=== PATIENT | female | born 1960 | race Caucasian/White ===

== ENCOUNTER → 2020-03-26 09:24 | Outpatient (BNVA) | payer OTHER, SELFPAY | PROVIDERS: PCP Internal Medicine; Visit Provider Internal Medicine | DX: Z86.718 Personal history of other venous thrombosis and embolism (principal); Z51.81 Encounter for therapeutic drug level monitoring; Z79.01 Long term (current) use of anticoagulants | CPT/HCPCS: 85610; 99211 ==

== ENCOUNTER → 2020-04-23 08:33 | Outpatient (BNVA) | payer OTHER, SELFPAY | PROVIDERS: PCP Internal Medicine; Visit Provider Internal Medicine | DX: Z86.718 Personal history of other venous thrombosis and embolism (principal); Z51.81 Encounter for therapeutic drug level monitoring; Z79.01 Long term (current) use of anticoagulants | CPT/HCPCS: 85610; 99211 ==

== ENCOUNTER → 2020-05-21 08:56 | Outpatient (BNVA) | payer OTHER, MEDICARE, SELFPAY | PROVIDERS: PCP Internal Medicine; Visit Provider Internal Medicine | DX: Z86.718 Personal history of other venous thrombosis and embolism (principal); Z79.01 Long term (current) use of anticoagulants; Z51.81 Encounter for therapeutic drug level monitoring | CPT/HCPCS: 85610; 99211 ==

== ENCOUNTER → 2020-06-11 08:08 | Outpatient (BNVA) | payer OTHER, MEDICARE, SELFPAY | PROVIDERS: PCP Internal Medicine; Visit Provider Internal Medicine | DX: Z86.718 Personal history of other venous thrombosis and embolism (principal); Z51.81 Encounter for therapeutic drug level monitoring; Z79.01 Long term (current) use of anticoagulants | CPT/HCPCS: 85610; 99211 ==

== ENCOUNTER → 2020-07-04 08:20 | Outpatient (BNVA) | payer OTHER, MEDICARE, SELFPAY | PROVIDERS: PCP Internal Medicine; Visit Provider Internal Medicine | DX: Z86.718 Personal history of other venous thrombosis and embolism (principal); Z51.81 Encounter for therapeutic drug level monitoring; Z79.01 Long term (current) use of anticoagulants | CPT/HCPCS: 85610; 99211 ==

== ENCOUNTER → 2020-07-18 08:42 | Outpatient (BNVA) | payer OTHER, MEDICARE, SELFPAY | PROVIDERS: PCP Internal Medicine; Visit Provider Internal Medicine | DX: Z86.718 Personal history of other venous thrombosis and embolism (principal); Z51.81 Encounter for therapeutic drug level monitoring; Z79.01 Long term (current) use of anticoagulants | CPT/HCPCS: 85610; 99211 ==

== ENCOUNTER → 2020-07-23 08:20 | Outpatient (BNVA) | payer OTHER, MEDICARE, SELFPAY | PROVIDERS: PCP Internal Medicine; Visit Provider Internal Medicine | DX: Z86.718 Personal history of other venous thrombosis and embolism (principal); Z51.81 Encounter for therapeutic drug level monitoring; Z79.01 Long term (current) use of anticoagulants | CPT/HCPCS: 85610; 99211 ==

== ENCOUNTER → 2020-08-21 08:46 | Outpatient (BNVA) | payer OTHER, SELFPAY | PROVIDERS: PCP Internal Medicine; Visit Provider Internal Medicine | DX: Z86.718 Personal history of other venous thrombosis and embolism (principal); Z51.81 Encounter for therapeutic drug level monitoring; Z79.01 Long term (current) use of anticoagulants | CPT/HCPCS: 85610; 99211 ==

== ENCOUNTER → 2020-09-18 08:51 | Outpatient (BNVA) | payer OTHER, SELFPAY | PROVIDERS: PCP Internal Medicine; Visit Provider Internal Medicine | DX: Z86.718 Personal history of other venous thrombosis and embolism (principal); Z51.81 Encounter for therapeutic drug level monitoring; Z79.01 Long term (current) use of anticoagulants | CPT/HCPCS: 85610; 99211 ==

== ENCOUNTER → 2020-10-22 08:36 | Outpatient (BNVA) | payer OTHER, SELFPAY | PROVIDERS: PCP Internal Medicine; Visit Provider Internal Medicine | DX: Z86.718 Personal history of other venous thrombosis and embolism (principal); Z51.81 Encounter for therapeutic drug level monitoring; Z79.01 Long term (current) use of anticoagulants | CPT/HCPCS: 85610; 99211 ==

== ENCOUNTER → 2020-12-05 08:37 | Outpatient (BNVA) | payer OTHER, SELFPAY | PROVIDERS: PCP Internal Medicine; Visit Provider Internal Medicine | DX: Z86.718 Personal history of other venous thrombosis and embolism (principal); Z51.81 Encounter for therapeutic drug level monitoring; Z79.01 Long term (current) use of anticoagulants | CPT/HCPCS: 85610; 99211 ==

== ENCOUNTER → 2020-12-26 08:46 | Outpatient (BNVA) | payer OTHER, SELFPAY | PROVIDERS: PCP Internal Medicine; Visit Provider Internal Medicine | DX: Z86.718 Personal history of other venous thrombosis and embolism (principal); Z79.01 Long term (current) use of anticoagulants; Z51.81 Encounter for therapeutic drug level monitoring | CPT/HCPCS: 85610; 99211 ==

== ENCOUNTER → 2021-01-09 08:40 | Outpatient (BNVA) | payer OTHER, SELFPAY | PROVIDERS: PCP Internal Medicine; Visit Provider Internal Medicine | DX: Z86.718 Personal history of other venous thrombosis and embolism (principal); Z51.81 Encounter for therapeutic drug level monitoring; Z79.01 Long term (current) use of anticoagulants | CPT/HCPCS: 85610; 99211 ==

== ENCOUNTER → 2021-01-23 08:52 | Outpatient (BNVA) | payer OTHER, SELFPAY | PROVIDERS: PCP Internal Medicine; Visit Provider Internal Medicine | DX: Z86.718 Personal history of other venous thrombosis and embolism (principal); Z51.81 Encounter for therapeutic drug level monitoring; Z79.01 Long term (current) use of anticoagulants | CPT/HCPCS: 85610; 99211 ==

== ENCOUNTER → 2021-02-11 09:28 | Outpatient (BNVA) | payer OTHER, SELFPAY | PROVIDERS: PCP Internal Medicine; Visit Provider Internal Medicine | DX: Z86.718 Personal history of other venous thrombosis and embolism (principal); Z51.81 Encounter for therapeutic drug level monitoring; Z79.01 Long term (current) use of anticoagulants | CPT/HCPCS: 85610; 99211 ==

== ENCOUNTER → 2021-02-26 08:43 | Outpatient (BNVA) | payer OTHER, SELFPAY | PROVIDERS: PCP Internal Medicine; Visit Provider Internal Medicine | DX: Z86.718 Personal history of other venous thrombosis and embolism (principal); Z51.81 Encounter for therapeutic drug level monitoring; Z79.01 Long term (current) use of anticoagulants | CPT/HCPCS: 85610; 99211 ==

== ENCOUNTER → 2021-04-03 09:52 | Outpatient (BNVA) | payer OTHER, SELFPAY | PROVIDERS: PCP Internal Medicine; Visit Provider Internal Medicine | DX: D68.61 Antiphospholipid syndrome (principal); Z86.718 Personal history of other venous thrombosis and embolism; Z51.81 Encounter for therapeutic drug level monitoring; Z79.01 Long term (current) use of anticoagulants | CPT/HCPCS: 85610; 99211 ==

== ENCOUNTER → 2021-04-17 09:30 | Outpatient (BNVA) | payer OTHER, SELFPAY | PROVIDERS: PCP Internal Medicine; Visit Provider Internal Medicine | DX: D68.61 Antiphospholipid syndrome (principal); Z51.81 Encounter for therapeutic drug level monitoring; Z79.01 Long term (current) use of anticoagulants | CPT/HCPCS: 85610; 99211 ==

== ENCOUNTER → 2021-05-01 09:15 | Outpatient (BNVA) | payer OTHER, SELFPAY | PROVIDERS: PCP Internal Medicine; Visit Provider Internal Medicine | DX: D68.61 Antiphospholipid syndrome (principal); Z51.81 Encounter for therapeutic drug level monitoring; Z79.01 Long term (current) use of anticoagulants | CPT/HCPCS: 85610; 99211 ==

== ENCOUNTER → 2021-05-15 09:10 | Outpatient (BNVA) | payer OTHER, SELFPAY | PROVIDERS: PCP Internal Medicine; Visit Provider Internal Medicine | DX: Z95.2 Presence of prosthetic heart valve (principal); Z51.81 Encounter for therapeutic drug level monitoring; Z79.01 Long term (current) use of anticoagulants | CPT/HCPCS: 85610; 99211 ==

== ENCOUNTER → 2021-06-12 08:46 | Outpatient (BNVA) | payer OTHER, SELFPAY | PROVIDERS: PCP Internal Medicine; Visit Provider Internal Medicine | DX: D68.61 Antiphospholipid syndrome (principal); Z51.81 Encounter for therapeutic drug level monitoring; Z79.01 Long term (current) use of anticoagulants | CPT/HCPCS: 85610; 99211 ==

== ENCOUNTER → 2021-06-26 10:12 | Outpatient (BNVA) | payer OTHER, SELFPAY | PROVIDERS: PCP Internal Medicine; Visit Provider Internal Medicine | DX: D68.61 Antiphospholipid syndrome (principal); Z86.718 Personal history of other venous thrombosis and embolism; Z51.81 Encounter for therapeutic drug level monitoring; Z79.01 Long term (current) use of anticoagulants | CPT/HCPCS: 85610; 99211 ==

== ENCOUNTER → 2021-07-21 08:16 | Outpatient (BNVA) | payer OTHER, SELFPAY | PROVIDERS: PCP Internal Medicine; Visit Provider Internal Medicine | DX: D68.61 Antiphospholipid syndrome (principal); Z86.718 Personal history of other venous thrombosis and embolism; Z51.81 Encounter for therapeutic drug level monitoring; Z79.01 Long term (current) use of anticoagulants | CPT/HCPCS: 85610; 99211 ==

== ENCOUNTER → 2021-08-12 08:31 | Outpatient (BNVA) | payer OTHER, SELFPAY | PROVIDERS: PCP Internal Medicine; Visit Provider Internal Medicine | DX: D68.61 Antiphospholipid syndrome (principal); Z51.81 Encounter for therapeutic drug level monitoring; Z79.01 Long term (current) use of anticoagulants | CPT/HCPCS: 85610; 99211 ==

== ENCOUNTER → 2021-09-03 08:14 | Outpatient (BNVA) | payer OTHER, SELFPAY | PROVIDERS: PCP Internal Medicine; Visit Provider Internal Medicine | DX: Z86.718 Personal history of other venous thrombosis and embolism (principal); Z79.01 Long term (current) use of anticoagulants; Z51.81 Encounter for therapeutic drug level monitoring | CPT/HCPCS: 85610; 99211 ==

== ENCOUNTER → 2021-09-24 08:29 | Outpatient (BNVA) | payer OTHER, SELFPAY | PROVIDERS: PCP Internal Medicine; Visit Provider Internal Medicine | DX: Z86.718 Personal history of other venous thrombosis and embolism (principal); Z79.01 Long term (current) use of anticoagulants; Z51.81 Encounter for therapeutic drug level monitoring | CPT/HCPCS: 85610; 99211 ==

== ENCOUNTER → 2021-10-21 08:06 | Outpatient (BNVA) | payer OTHER, SELFPAY | PROVIDERS: PCP Internal Medicine; Visit Provider Internal Medicine | DX: D68.61 Antiphospholipid syndrome (principal); Z79.01 Long term (current) use of anticoagulants; Z51.81 Encounter for therapeutic drug level monitoring | CPT/HCPCS: 85610; 99211 ==

== ENCOUNTER → 2021-10-28 08:00 | Outpatient (BNVA) | payer OTHER, SELFPAY | PROVIDERS: PCP Internal Medicine; Visit Provider Internal Medicine | DX: D68.61 Antiphospholipid syndrome (principal); Z79.01 Long term (current) use of anticoagulants; Z51.81 Encounter for therapeutic drug level monitoring | CPT/HCPCS: 85610; 99211 ==

== ENCOUNTER → 2021-11-11 08:17 | Outpatient (BNVA) | payer OTHER, SELFPAY | PROVIDERS: PCP Internal Medicine; Visit Provider Internal Medicine | DX: D68.61 Antiphospholipid syndrome (principal); Z79.01 Long term (current) use of anticoagulants; Z51.81 Encounter for therapeutic drug level monitoring | CPT/HCPCS: 85610; 99211 ==

== ENCOUNTER → 2021-12-08 08:44 | Outpatient (BNVA) | payer OTHER, SELFPAY | PROVIDERS: PCP Internal Medicine; Visit Provider Internal Medicine | DX: Z86.718 Personal history of other venous thrombosis and embolism (principal); Z51.81 Encounter for therapeutic drug level monitoring; Z79.01 Long term (current) use of anticoagulants | CPT/HCPCS: 85610; 99211 ==

== ENCOUNTER → 2021-12-31 09:52 | Outpatient (BNVA) | payer OTHER, SELFPAY | PROVIDERS: PCP Internal Medicine; Visit Provider Internal Medicine | DX: Z86.718 Personal history of other venous thrombosis and embolism (principal); Z79.01 Long term (current) use of anticoagulants; Z51.81 Encounter for therapeutic drug level monitoring | CPT/HCPCS: 85610; 99211 ==

== ENCOUNTER → 2022-01-22 09:15 | Outpatient (BNVA) | payer OTHER, SELFPAY | PROVIDERS: PCP Internal Medicine; Visit Provider Internal Medicine | DX: Z86.718 Personal history of other venous thrombosis and embolism (principal); Z79.01 Long term (current) use of anticoagulants; Z51.81 Encounter for therapeutic drug level monitoring | CPT/HCPCS: 85610; 99211 ==

== ENCOUNTER → 2022-02-18 08:18 | Outpatient (BNVA) | payer OTHER, SELFPAY | PROVIDERS: PCP Family Medicine; Visit Provider Internal Medicine | DX: Z86.718 Personal history of other venous thrombosis and embolism (principal); Z79.01 Long term (current) use of anticoagulants; Z51.81 Encounter for therapeutic drug level monitoring | CPT/HCPCS: 85610; 99211 ==

== ENCOUNTER → 2022-03-19 08:20 | Outpatient (BNVA) | payer OTHER, SELFPAY | PROVIDERS: PCP Internal Medicine; Visit Provider Internal Medicine | DX: Z86.718 Personal history of other venous thrombosis and embolism (principal); Z79.01 Long term (current) use of anticoagulants; Z51.81 Encounter for therapeutic drug level monitoring | CPT/HCPCS: 85610; 99212 ==

== ENCOUNTER → 2022-03-23 08:22 | Outpatient (BNVA) | payer OTHER, SELFPAY | PROVIDERS: PCP Internal Medicine; Visit Provider Internal Medicine | DX: Z86.718 Personal history of other venous thrombosis and embolism (principal); Z79.01 Long term (current) use of anticoagulants; Z51.81 Encounter for therapeutic drug level monitoring | CPT/HCPCS: 85610; 99211 ==

== ENCOUNTER → 2022-03-30 08:34 | Outpatient (BNVA) | payer OTHER, SELFPAY | PROVIDERS: PCP Internal Medicine; Visit Provider Internal Medicine | DX: Z86.718 Personal history of other venous thrombosis and embolism (principal); Z79.01 Long term (current) use of anticoagulants; Z51.81 Encounter for therapeutic drug level monitoring | CPT/HCPCS: 85610; 99211 ==

== ENCOUNTER → 2022-06-01 08:59 | Outpatient (BNVA) | payer OTHER, SELFPAY | PROVIDERS: PCP Internal Medicine; Visit Provider Internal Medicine | DX: Z86.718 Personal history of other venous thrombosis and embolism (principal); Z79.01 Long term (current) use of anticoagulants; Z51.81 Encounter for therapeutic drug level monitoring | CPT/HCPCS: 85610; 99212 ==

== ENCOUNTER → 2022-07-01 09:04 | Outpatient (BNVA) | payer OTHER, SELFPAY | PROVIDERS: PCP Internal Medicine; Visit Provider Internal Medicine | DX: I82.621 Acute embolism and thrombosis of deep veins of right upper extremity (principal); Z79.01 Long term (current) use of anticoagulants; Z51.81 Encounter for therapeutic drug level monitoring | CPT/HCPCS: 85610; 99211 ==

== ENCOUNTER → 2022-07-17 08:35 | Outpatient (BNVA) | payer OTHER, SELFPAY | PROVIDERS: PCP Internal Medicine; Visit Provider Internal Medicine | DX: Z86.718 Personal history of other venous thrombosis and embolism (principal); Z79.01 Long term (current) use of anticoagulants; Z51.81 Encounter for therapeutic drug level monitoring | CPT/HCPCS: 85610; 99212 ==

== ENCOUNTER → 2022-07-31 08:07 | Outpatient (BNVA) | payer OTHER, SELFPAY | PROVIDERS: PCP Internal Medicine; Visit Provider Internal Medicine | DX: Z86.718 Personal history of other venous thrombosis and embolism (principal); Z79.01 Long term (current) use of anticoagulants; Z51.81 Encounter for therapeutic drug level monitoring | CPT/HCPCS: 85610; 99211 ==

== ENCOUNTER → 2022-08-04 08:53 | Outpatient (BNVA) | payer OTHER, SELFPAY | PROVIDERS: PCP Internal Medicine; Visit Provider Internal Medicine | DX: Z86.718 Personal history of other venous thrombosis and embolism (principal); Z79.01 Long term (current) use of anticoagulants; Z51.81 Encounter for therapeutic drug level monitoring | CPT/HCPCS: 85610; 99212 ==

== ENCOUNTER → 2022-08-13 09:01 | Outpatient (BNVA) | payer OTHER, SELFPAY | PROVIDERS: PCP Internal Medicine; Visit Provider Internal Medicine | DX: Z86.718 Personal history of other venous thrombosis and embolism (principal); Z79.01 Long term (current) use of anticoagulants; Z51.81 Encounter for therapeutic drug level monitoring | CPT/HCPCS: 85610; 99211 ==

== ENCOUNTER → 2022-08-18 09:20 | Outpatient (BNVA) | payer OTHER, SELFPAY | PROVIDERS: PCP Internal Medicine; Visit Provider Internal Medicine | DX: Z86.718 Personal history of other venous thrombosis and embolism (principal); Z79.01 Long term (current) use of anticoagulants; Z51.81 Encounter for therapeutic drug level monitoring | CPT/HCPCS: 85610; 99211 ==

== ENCOUNTER → 2022-08-24 14:09 | Outpatient (BNVA) | payer OTHER, SELFPAY | PROVIDERS: PCP Internal Medicine; Visit Provider Internal Medicine ==

== ENCOUNTER → 2022-08-26 08:34 | Outpatient (BNVA) | payer OTHER, SELFPAY | PROVIDERS: PCP Internal Medicine; Visit Provider Internal Medicine | DX: Z86.718 Personal history of other venous thrombosis and embolism (principal); Z51.81 Encounter for therapeutic drug level monitoring; Z79.01 Long term (current) use of anticoagulants | CPT/HCPCS: 85610; 99212 ==

== ENCOUNTER → 2022-09-04 10:01 | Outpatient (BNVA) | payer OTHER, SELFPAY | PROVIDERS: PCP Internal Medicine; Visit Provider Internal Medicine | DX: Z86.718 Personal history of other venous thrombosis and embolism (principal); Z79.01 Long term (current) use of anticoagulants; Z51.81 Encounter for therapeutic drug level monitoring | CPT/HCPCS: 85610; 99211 ==

== ENCOUNTER → 2022-09-14 08:16 | Outpatient (BNVA) | payer OTHER, SELFPAY | PROVIDERS: PCP Internal Medicine; Visit Provider Internal Medicine | DX: Z86.718 Personal history of other venous thrombosis and embolism (principal); Z79.01 Long term (current) use of anticoagulants; Z51.81 Encounter for therapeutic drug level monitoring | CPT/HCPCS: 85610; 99211 ==

== ENCOUNTER → 2022-09-18 08:43 | Outpatient (BNVA) | payer OTHER, SELFPAY | PROVIDERS: PCP Internal Medicine; Visit Provider Internal Medicine | DX: Z86.718 Personal history of other venous thrombosis and embolism (principal); Z79.01 Long term (current) use of anticoagulants; Z51.81 Encounter for therapeutic drug level monitoring | CPT/HCPCS: 85610; 99211 ==

== ENCOUNTER → 2022-09-25 08:49 | Outpatient (BNVA) | payer OTHER, SELFPAY | PROVIDERS: PCP Internal Medicine; Visit Provider Internal Medicine | DX: Z86.718 Personal history of other venous thrombosis and embolism (principal); Z79.01 Long term (current) use of anticoagulants; Z51.81 Encounter for therapeutic drug level monitoring | CPT/HCPCS: 85610; 99211 ==

== ENCOUNTER → 2022-10-09 08:29 | Outpatient (BNVA) | payer OTHER, SELFPAY | PROVIDERS: PCP Internal Medicine; Visit Provider Internal Medicine | DX: Z86.718 Personal history of other venous thrombosis and embolism (principal); Z79.01 Long term (current) use of anticoagulants; Z51.81 Encounter for therapeutic drug level monitoring | CPT/HCPCS: 85610; 99211 ==

== ENCOUNTER → 2022-10-23 08:13 | Outpatient (BNVA) | payer OTHER, SELFPAY | PROVIDERS: PCP Internal Medicine; Visit Provider Internal Medicine | DX: Z86.718 Personal history of other venous thrombosis and embolism (principal); Z79.01 Long term (current) use of anticoagulants; Z51.81 Encounter for therapeutic drug level monitoring | CPT/HCPCS: 85610; 99211 ==

== ENCOUNTER → 2022-11-06 08:18 | Outpatient (BNVA) | payer OTHER, SELFPAY | PROVIDERS: PCP Internal Medicine; Visit Provider Internal Medicine | DX: Z86.718 Personal history of other venous thrombosis and embolism (principal); Z79.01 Long term (current) use of anticoagulants; Z51.81 Encounter for therapeutic drug level monitoring | CPT/HCPCS: 85610; 99211 ==

== ENCOUNTER 2022-12-07 09:13 | Outpatient (AMB) | payer OTHER, SELFPAY ==
[2022-12-07 09:26] LABS: Prothrombin Time Whole Bld POC 18.2 sec (11.1-13.5); ~PT, ~INR - Anti Coag Clinic 1.5 (0.9-1.1)
--- NOTE | 2022-12-07 09:27 | MHC.OFFVISCO ---
Intake Intake Visit Reasons: Anticoagulation Allergies codeine [Codeine] Allergy (Severe, Verified 12/07/22 09:20) DIFFICULTY BREATHING Penicillins Allergy (Severe, Verified 12/07/22 09:20) RASH penicillin V Allergy (Intermediate, Verified 12/07/22 09:20) RASH tramadol [Ultram] Allergy (Unknown, Verified 12/07/22 09:20) hallucinations Shellfish Allergy (Severe, Uncoded 12/07/22 09:20) THROAT SWELLING Contrast Allergy PreMed Pack Allergy (Unknown, Uncoded 12/07/22 09:20) TREAT WITH BENADRYL ferrlecit Adverse Reaction (Intermediate, Uncoded 12/07/22 09:20) Rash Medication List - Last Reconciled 12/07/22 by Barbara Lr RN atorvastatin 40 mg PO BEDTIME blood sugar diagnostic As directed clonidine HCl 0.1 mg PO BID clopidogrel 75 mg orally 2 DAYS / WEEK / PER MD; docusate sodium 100 mg PO BID PRN duloxetine 120 mg PO QAM fluticasone propion-salmeterol 100-50 mcg/dose ea inhalation hydrocortisone 2.5% appl topical insulin glargine (Lantus Solostar U-100 Insulin) 10 units subcut QPM ipratropium-albuterol 0.5 mg-3 mg(2.5 mg base)/3 mL mL inhalation ipratropium-albuterol 20-100 mcg/actuation 1 puff PO QID lancets As directed lancets As directed linagliptin (Tradjenta) 5 mg PO DAILY qdtnqc-enoagpzy-kboxomy 24,000-76,000 -120,000 unit 1 cap PO TID lorazepam 1 mg PO BID meclizine mg PO montelukast 10 mg PO BEDTIME nifedipine ER 30 mg PO DAILY ondansetron 4 mg PO Q8H PRN polyethylene glycol 3350 grams PO [procrit pt states she receives it weekly ] quetiapine 200 mg PO BEDTIME rabeprazole 20 mg PO DAILY ropinirole 0.25 mg PO BEDTIME sodium chloride 0.65% (Deep Sea Nasal) sprays intranasal Q2H PRN triamcinolone acetonide 0.1% appl topical warfarin 2.5 mg See Protocol PO DAILY Nursing Note INR 1.5-? out of therapeutic range, pt admits to missed doses, enc to set alarm on phone for a reminder Medications and supplements reviewed Patient status: pt with multiple c.o- states having seizures and falling- educated on hitting head and to notify md, rectal bleeding post plavix x 2 days-last episode last week, pt states md has instructed her to reduce plavix to once per week if rectal bleeding Medications or supplements: pt states not taking iron, plavix is once a week per md w/bleeding Diet: appetite decreased Denies any signs and symptoms of bleeding or clotting or unusual bruising Bleeding, bruising, clotting discussed Nutritional guidance given: no greens for 2 days, eat a red today Dose: 3.75mg today and tomm then 2.5mg daily F/U INR Date : 1 week?? Patient verbalizing understanding of instructions given. 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 spoke to Talia at 0940 . made aware of probable missed doses. made aware of c.o rectal bleeding post plavix once per week and pt c.o seizures Coding Level of Care Code Est Patient Level 1 Diagnoses Current use of anticoagulant therapy Z79.01 Assessment & Plan Assessment & Plan (1) Current use of anticoagulant therapy: Code(s): Z79.01 - salvage determiner (current) use of anticoagulants Category: Medical
== END 2022-12-07 09:46 | disposition home or self-care (01) ==
LOC: HO.ACS 09:13
PROVIDERS: PCP Internal Medicine; Visit Provider Internal Medicine
DX: Z79.01 Long term (current) use of anticoagulants (principal)

== ENCOUNTER → 2022-12-07 09:13 | Outpatient (BNVA) | payer OTHER, SELFPAY | PROVIDERS: PCP Internal Medicine; Visit Provider Internal Medicine | DX: Z86.718 Personal history of other venous thrombosis and embolism (principal); Z51.81 Encounter for therapeutic drug level monitoring; Z79.01 Long term (current) use of anticoagulants | CPT/HCPCS: 85610; 99211 ==

== ENCOUNTER → 2022-12-14 07:44 | Outpatient (BNVA) | payer OTHER, SELFPAY | PROVIDERS: PCP Internal Medicine; Visit Provider Internal Medicine ==

== ENCOUNTER 2022-12-17 08:49 | Outpatient (AMB) | payer OTHER, SELFPAY ==
--- NOTE | 2022-12-17 08:57 | MHC.OFFVISCO ---
Intake Intake Visit Reasons: Anticoagulation Allergies codeine [Codeine] Allergy (Severe, Verified 12/17/22 08:53) DIFFICULTY BREATHING Penicillins Allergy (Severe, Verified 12/17/22 08:53) RASH penicillin V Allergy (Intermediate, Verified 12/17/22 08:53) RASH tramadol [Ultram] Allergy (Unknown, Verified 12/17/22 08:53) hallucinations Shellfish Allergy (Severe, Uncoded 12/17/22 08:53) THROAT SWELLING Contrast Allergy PreMed Pack Allergy (Unknown, Uncoded 12/17/22 08:53) TREAT WITH BENADRYL ferrlecit Adverse Reaction (Intermediate, Uncoded 12/17/22 08:53) Rash Medication List - Last Reconciled 12/17/22 by Barbara Lr RN atorvastatin 40 mg PO BEDTIME blood sugar diagnostic As directed clonidine HCl 0.1 mg PO BID clopidogrel 75 mg orally 2 DAYS / WEEK / PER MD; docusate sodium 100 mg PO BID PRN duloxetine 120 mg PO QAM fluticasone propion-salmeterol 100-50 mcg/dose ea inhalation hydrocortisone 2.5% appl topical insulin glargine (Lantus Solostar U-100 Insulin) 10 units subcut QPM ipratropium-albuterol 0.5 mg-3 mg(2.5 mg base)/3 mL mL inhalation ipratropium-albuterol 20-100 mcg/actuation 1 puff PO QID lancets As directed lancets As directed linagliptin (Tradjenta) 5 mg PO DAILY mnkjdo-bkbopczb-zltvqbh 24,000-76,000 -120,000 unit 1 cap PO TID lorazepam 1 mg PO BID meclizine mg PO montelukast 10 mg PO BEDTIME nifedipine ER 30 mg PO DAILY ondansetron 4 mg PO Q8H PRN polyethylene glycol 3350 grams PO [procrit pt states she receives it weekly ] quetiapine 200 mg PO BEDTIME rabeprazole 20 mg PO DAILY ropinirole 0.25 mg PO BEDTIME sodium chloride 0.65% (Deep Sea Nasal) sprays intranasal Q2H PRN triamcinolone acetonide 0.1% appl topical warfarin 2.5 mg See Protocol PO DAILY Nursing Note INR 1.9-? out of therapeutic range Medications and supplements reviewed Patient status: pt cont to c.o daily seizures- pcp notified after last acs visit- pt states neurology appt tomm pt states had iron infusion last wednesday- states had a reaction. amb with walker Medications or supplements: no changes in medication Diet: appetite is less Denies any signs and symptoms of bleeding or clotting or unusual bruising Bleeding, bruising, clotting discussed Nutritional guidance given: no greens for 2 days, eat a red today Dose: 3.75mg today then 2.5mg x 7 F/U INR Date : 1 week Patient verbalizing understanding of instructions given. Coding Level of Care Code Est Patient Level 1 Diagnoses Current use of anticoagulant therapy Z79.01 Assessment & Plan Assessment & Plan (1) Current use of anticoagulant therapy: Code(s): Z79.01 - jail (current) use of anticoagulants Category: Medical
[2022-12-17 08:58] LABS: ~PT, ~INR - Anti Coag Clinic 1.9 (0.9-1.1)
== END 2022-12-17 09:06 | disposition home or self-care (01) ==
PROVIDERS: PCP Internal Medicine; Visit Provider Internal Medicine
DX: Z79.01 Long term (current) use of anticoagulants (principal)

== ENCOUNTER → 2022-12-17 08:49 | Outpatient (BNVA) | payer OTHER, SELFPAY | PROVIDERS: PCP Internal Medicine; Visit Provider Internal Medicine | DX: Z86.718 Personal history of other venous thrombosis and embolism (principal); Z79.01 Long term (current) use of anticoagulants; Z51.81 Encounter for therapeutic drug level monitoring | CPT/HCPCS: 85610; 99211 ==

== ENCOUNTER 2022-12-24 08:24 | Outpatient (AMB) | payer OTHER, SELFPAY ==
[2022-12-24 08:31] LABS: Prothrombin Time Whole Bld POC 17.8 sec (11.1-13.5); ~PT, ~INR - Anti Coag Clinic 1.5 (0.9-1.1)
--- NOTE | 2022-12-24 08:43 | MHC.OFFVISCO ---
Intake Intake Visit Reasons: Anticoagulation Allergies codeine [Codeine] Allergy (Severe, Verified 12/24/22 08:25) DIFFICULTY BREATHING Penicillins Allergy (Severe, Verified 12/24/22 08:25) RASH penicillin V Allergy (Intermediate, Verified 12/24/22 08:25) RASH tramadol [Ultram] Allergy (Unknown, Verified 12/24/22 08:25) hallucinations Shellfish Allergy (Severe, Uncoded 12/24/22 08:25) THROAT SWELLING Contrast Allergy PreMed Pack Allergy (Unknown, Uncoded 12/24/22 08:25) TREAT WITH BENADRYL ferrlecit Adverse Reaction (Intermediate, Uncoded 12/24/22 08:25) Rash Medication List - Last Reconciled 12/24/22 by Tangela Sam RN atorvastatin 40 mg PO BEDTIME blood sugar diagnostic As directed clonidine HCl 0.1 mg PO BID clopidogrel 75 mg orally 2 DAYS / WEEK / PER MD; dapagliflozin propanediol (Farxiga) 10 mg PO DAILY docusate sodium 100 mg PO BID PRN duloxetine 120 mg PO QAM fluticasone propion-salmeterol 100-50 mcg/dose ea inhalation hydrocortisone 2.5% appl topical insulin glargine (Lantus Solostar U-100 Insulin) 10 units subcut QPM ipratropium-albuterol 0.5 mg-3 mg(2.5 mg base)/3 mL mL inhalation ipratropium-albuterol 20-100 mcg/actuation 1 puff PO QID lancets As directed lancets As directed linagliptin (Tradjenta) 5 mg PO DAILY jlxijk-xvoimbhw-efpiaob 24,000-76,000 -120,000 unit 1 cap PO TID loratadine 10 mg PO DAILY PRN lorazepam 1 mg PO BID meclizine mg PO montelukast 10 mg PO BEDTIME nifedipine ER 30 mg PO DAILY ondansetron 4 mg PO Q8H PRN polyethylene glycol 3350 grams PO [procrit pt states she receives it weekly ] quetiapine 200 mg PO BEDTIME rabeprazole 20 mg PO DAILY ropinirole 0.25 mg PO BEDTIME sodium chloride 0.65% (Deep Sea Nasal) sprays intranasal Q2H PRN triamcinolone acetonide 0.1% appl topical warfarin 2.5 mg See Protocol PO DAILY Nursing Note INR 1.5 out of therapeutic range Medications and supplements reviewed Patient status: STATES SHE KEEP HAVING SEIZURERS AND PCP WONT HELP HER - ENC TO HER TO RESEARCH AND FIND NEW NEUROLOGIST , NO RECTAL BLEEDING, Medications or supplements: NO CHANGES Diet: FAIR Denies any signs and symptoms of bleeding or clotting or unusual bruising Bleeding, bruising, clotting discussed Nutritional guidance given: AVOID GREENS Dose: 2.5MG NOW THEN AGAIN THIS EVENING(DIVIDED DOSES DUE TO HX OF RECTAL BLEEDING) =5MG TODAY THEN 3.75MG X 2 DAYS/ 2.5MG X 5 DAY F/U INR Date : 1 WEEK?? Patient verbalizing understanding of instructions given. CALL TO PCP WITH INR AND PLAN OF CARE TO CONVEY TO PCP LEFT MSG 1038 T/C TO NURSE MANFRED, NO ANSWER LEFT MSG AGAIN WITH STATUS AND PLAN OF CARE AND REQUEST FOR RETURN CALL Coding Level of Care Code Est Patient Level 1 Diagnoses Current use of anticoagulant therapy Z79.01 Assessment & Plan Assessment & Plan (1) Current use of anticoagulant therapy: Code(s): Z79.01 - care home (current) use of anticoagulants Category: Medical
== END 2022-12-24 10:39 | disposition home or self-care (01) ==
LOC: HO.ACS 08:24
PROVIDERS: PCP Internal Medicine; Visit Provider Internal Medicine
DX: Z79.01 Long term (current) use of anticoagulants (principal)

== ENCOUNTER → 2022-12-24 08:24 | Outpatient (BNVA) | payer OTHER, SELFPAY | PROVIDERS: PCP Internal Medicine; Visit Provider Internal Medicine | DX: Z86.718 Personal history of other venous thrombosis and embolism (principal); Z79.01 Long term (current) use of anticoagulants; Z51.81 Encounter for therapeutic drug level monitoring | CPT/HCPCS: 85610; 99211 ==

== ENCOUNTER 2023-01-12 08:10 | Outpatient (AMB) | payer OTHER, SELFPAY ==
[2023-01-12 09:03] LABS: Prothrombin Time Whole Bld POC 18.4 sec (11.1-13.5); ~PT, ~INR - Anti Coag Clinic 1.5 (0.9-1.1)
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
== END 2023-01-12 09:23 | disposition home or self-care (01) ==
LOC: HO.ACS 08:10
PROVIDERS: PCP Internal Medicine; Visit Provider Internal Medicine
DX: Z79.01 Long term (current) use of anticoagulants (principal)

== ENCOUNTER → 2023-01-12 08:10 | Outpatient (BNVA) | payer OTHER, SELFPAY | PROVIDERS: PCP Internal Medicine; Visit Provider Internal Medicine | DX: Z86.718 Personal history of other venous thrombosis and embolism (principal); Z51.81 Encounter for therapeutic drug level monitoring; Z79.01 Long term (current) use of anticoagulants | CPT/HCPCS: 85610; 99211 ==

== ENCOUNTER 2023-01-15 08:11 | Outpatient (AMB) | payer OTHER, SELFPAY ==
[2023-01-15 08:38] LABS: Prothrombin Time Whole Bld POC 23.6 sec (11.1-13.5)
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
== END 2023-01-15 08:59 | disposition home or self-care (01) ==
LOC: HO.ACS 08:11
PROVIDERS: PCP Internal Medicine; Visit Provider Internal Medicine
DX: Z79.01 Long term (current) use of anticoagulants (principal)

== ENCOUNTER → 2023-01-15 08:11 | Outpatient (BNVA) | payer OTHER, SELFPAY | PROVIDERS: PCP Internal Medicine; Visit Provider Internal Medicine | DX: Z86.718 Personal history of other venous thrombosis and embolism (principal); Z79.01 Long term (current) use of anticoagulants; Z51.81 Encounter for therapeutic drug level monitoring | CPT/HCPCS: 85610; 99211 ==

== ENCOUNTER 2023-01-22 08:25 | Outpatient (AMB) | payer OTHER, SELFPAY ==
[2023-01-22 09:09] LABS: Prothrombin Time Whole Bld POC 21.8 sec (11.1-13.5); ~PT, ~INR - Anti Coag Clinic 1.8 (0.9-1.1)
--- NOTE | 2023-01-22 09:14 | MHC.OFFVISCO ---
Intake Intake Visit Reasons: Anticoagulation Allergies codeine [Codeine] Allergy (Severe, Verified 01/22/23 09:01) DIFFICULTY BREATHING Penicillins Allergy (Severe, Verified 01/22/23 09:01) RASH penicillin V Allergy (Intermediate, Verified 01/22/23 09:01) RASH tramadol [Ultram] Allergy (Unknown, Verified 01/22/23 09:01) hallucinations Shellfish Allergy (Severe, Uncoded 01/22/23 09:01) THROAT SWELLING Contrast Allergy PreMed Pack Allergy (Unknown, Uncoded 01/22/23 09:01) TREAT WITH BENADRYL ferrlecit Adverse Reaction (Intermediate, Uncoded 01/22/23 09:01) Rash Medication List - Last Reconciled 01/22/23 by Tangela Sam RN atorvastatin 40 mg PO BEDTIME blood sugar diagnostic As directed clonidine HCl 0.1 mg PO BID clopidogrel 75 mg orally 2 DAYS / WEEK / PER MD; dapagliflozin propanediol (Farxiga) 10 mg PO DAILY docusate sodium 100 mg PO BID PRN duloxetine 120 mg PO QAM fluticasone propion-salmeterol 100-50 mcg/dose ea inhalation hydrocortisone 2.5% appl topical insulin glargine (Lantus Solostar U-100 Insulin) 10 units subcut QPM ipratropium-albuterol 0.5 mg-3 mg(2.5 mg base)/3 mL mL inhalation ipratropium-albuterol 20-100 mcg/actuation 1 puff PO QID lancets As directed lancets As directed linagliptin (Tradjenta) 5 mg PO DAILY rzndyu-czxdnehk-zdfrtlp 24,000-76,000 -120,000 unit 1 cap PO TID loratadine 10 mg PO DAILY PRN lorazepam 1 mg PO BID meclizine mg PO montelukast 10 mg PO BEDTIME nifedipine ER 30 mg PO DAILY ondansetron 4 mg PO Q8H PRN polyethylene glycol 3350 grams PO [procrit pt states she receives it weekly ] quetiapine 200 mg PO BEDTIME rabeprazole 20 mg PO DAILY ropinirole 0.25 mg PO BEDTIME sodium chloride 0.65% (Deep Sea Nasal) sprays intranasal Q2H PRN triamcinolone acetonide 0.1% appl topical warfarin 2.5 mg See Protocol PO DAILY Nursing Note INR 1.8? out of therapeutic range- SEEING PHYCIATRIST TODAY Medications and supplements reviewed- NO LONGER TAKING PLAVIX Patient status: STATES NO MORE RECTAL BLEEDING SINCE SHE STOPPED THE PLAVIX Medications or supplements- NO NEW MEDS OR SUPPLEMENTS Diet: OK Denies any signs and symptoms of bleeding or clotting or unusual bruising Bleeding, bruising, clotting discussed Nutritional guidance given: AVOID GREEN Dose: INCREASE SLIGHTLY 3.75MG X 3DAYS F/U INR Date : WEEKLY UNTIL STABLE X 3 ?? Patient verbalizing understanding of instructions given. Coding Level of Care Code Est Patient Level 1 Diagnoses Current use of anticoagulant therapy Z79.01 Assessment & Plan Assessment & Plan (1) Current use of anticoagulant therapy: Code(s): Z79.01 - senior living (current) use of anticoagulants Category: Medical
== END 2023-01-22 09:19 | disposition home or self-care (01) ==
LOC: HO.ACS 08:25
PROVIDERS: PCP Internal Medicine; Visit Provider Internal Medicine
DX: Z79.01 Long term (current) use of anticoagulants (principal)

== ENCOUNTER → 2023-01-22 08:25 | Outpatient (BNVA) | payer OTHER, SELFPAY | PROVIDERS: PCP Internal Medicine; Visit Provider Internal Medicine | DX: Z86.718 Personal history of other venous thrombosis and embolism (principal); Z79.01 Long term (current) use of anticoagulants; Z51.81 Encounter for therapeutic drug level monitoring | CPT/HCPCS: 85610; 99211 ==

== ENCOUNTER 2023-01-29 08:17 | Outpatient (AMB) | payer OTHER, SELFPAY ==
[2023-01-29 08:35] LABS: Prothrombin Time Whole Bld POC 23.7 sec (11.1-13.5)
--- NOTE | 2023-01-29 08:37 | MHC.OFFVISCO ---
Intake Intake Visit Reasons: Anticoagulation Allergies codeine [Codeine] Allergy (Severe, Verified 01/29/23 08:27) DIFFICULTY BREATHING Penicillins Allergy (Severe, Verified 01/29/23 08:27) RASH penicillin V Allergy (Intermediate, Verified 01/29/23 08:27) RASH tramadol [Ultram] Allergy (Unknown, Verified 01/29/23 08:27) hallucinations Shellfish Allergy (Severe, Uncoded 01/29/23 08:27) THROAT SWELLING Contrast Allergy PreMed Pack Allergy (Unknown, Uncoded 01/29/23 08:27) TREAT WITH BENADRYL ferrlecit Adverse Reaction (Intermediate, Uncoded 01/29/23 08:27) Rash Medication List - Last Reconciled 01/29/23 by Tonia Denney RN atorvastatin 40 mg PO BEDTIME blood sugar diagnostic As directed clonidine HCl 0.1 mg PO BID dapagliflozin propanediol (Farxiga) 10 mg PO DAILY docusate sodium 100 mg PO BID PRN duloxetine 120 mg PO QAM fluticasone propion-salmeterol 100-50 mcg/dose ea inhalation hydrocortisone 2.5% appl topical insulin glargine (Lantus Solostar U-100 Insulin) 10 units subcut QPM ipratropium-albuterol 0.5 mg-3 mg(2.5 mg base)/3 mL mL inhalation ipratropium-albuterol 20-100 mcg/actuation 1 puff PO QID lancets As directed lancets As directed linagliptin (Tradjenta) 5 mg PO DAILY hteyiu-ubbxopxe-ypxfabe 24,000-76,000 -120,000 unit 1 cap PO TID loratadine 10 mg PO DAILY PRN lorazepam 1 mg PO BID meclizine mg PO montelukast 10 mg PO BEDTIME nifedipine ER 30 mg PO DAILY ondansetron 4 mg PO Q8H PRN polyethylene glycol 3350 grams PO [procrit pt states she receives it weekly ] quetiapine 200 mg PO BEDTIME rabeprazole 20 mg PO DAILY ropinirole 0.25 mg PO BEDTIME sodium chloride 0.65% (Deep Sea Nasal) sprays intranasal Q2H PRN triamcinolone acetonide 0.1% appl topical warfarin 2.5 mg See Protocol PO DAILY Nursing Note Amb to [facility] feeling ok, through visit mentions multiple health issues such as daily headaches, seizures 2-3 times daily, urinary issues, no longer has a neurologist per pt (see prev ACS NN) Medications and supplements reviewed No changes in diet, medications, or supplements, although indicates a diet not including fruits or veggies Denies any unusual signs and symptoms of bruising, bleeding (pt does not mention any bleeding when questioned, rectal or otherwise) Denies any new Chest pain, SOB, or clotting INR: 2.0 just in therapeutic range Nutritional guidance given: try to get fruits and vegetables in diet and balance greens and reds in diet Dose: continue usual dosing;3.75mg x 3 days and 2.5mg x 4 days F/U INR: 2 weeks Patient verbalizes understanding of instructions given with accurate read back/ teach back of dosing Coding Level of Care Code Est Patient Level 1 Diagnoses Current use of anticoagulant therapy Z79.01 Time Spent (min) 15 Assessment & Plan Assessment & Plan (1) Current use of anticoagulant therapy: Code(s): Z79.01 - residential (current) use of anticoagulants Category: Medical
== END 2023-01-29 09:04 | disposition home or self-care (01) ==
LOC: HO.ACS 08:17
PROVIDERS: PCP Internal Medicine; Visit Provider Internal Medicine
DX: Z79.01 Long term (current) use of anticoagulants (principal)

== ENCOUNTER → 2023-01-29 08:17 | Outpatient (BNVA) | payer OTHER, SELFPAY | PROVIDERS: PCP Internal Medicine; Visit Provider Internal Medicine | DX: Z86.718 Personal history of other venous thrombosis and embolism (principal); Z79.01 Long term (current) use of anticoagulants; Z51.81 Encounter for therapeutic drug level monitoring | CPT/HCPCS: 85610; 99211 ==

== ENCOUNTER 2023-02-15 08:10 | Outpatient (AMB) | payer OTHER, SELFPAY ==
[2023-02-15 08:36] LABS: ~PT, ~INR - Anti Coag Clinic 1.6 (0.9-1.1)
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
== END 2023-02-15 08:58 | disposition home or self-care (01) ==
LOC: HO.ACS 08:10
PROVIDERS: PCP Internal Medicine; Visit Provider Internal Medicine
DX: Z79.01 Long term (current) use of anticoagulants (principal)

== ENCOUNTER → 2023-02-15 08:10 | Outpatient (BNVA) | payer OTHER, SELFPAY | PROVIDERS: PCP Internal Medicine; Visit Provider Internal Medicine | DX: I82.621 Acute embolism and thrombosis of deep veins of right upper extremity (principal); Z51.81 Encounter for therapeutic drug level monitoring; Z79.01 Long term (current) use of anticoagulants | CPT/HCPCS: 85610; 99211 ==

== ENCOUNTER 2023-03-04 08:10 | Outpatient (AMB) | payer OTHER, SELFPAY ==
--- NOTE | 2023-03-04 08:52 | MHC.OFFVISCO ---
Intake Intake Visit Reasons: Anticoagulation Allergies codeine [Codeine] Allergy (Severe, Verified 03/04/23 08:48) DIFFICULTY BREATHING Penicillins Allergy (Severe, Verified 03/04/23 08:48) RASH penicillin V Allergy (Intermediate, Verified 03/04/23 08:48) RASH tramadol [Ultram] Allergy (Unknown, Verified 03/04/23 08:48) hallucinations Shellfish Allergy (Severe, Uncoded 03/04/23 08:48) THROAT SWELLING Contrast Allergy PreMed Pack Allergy (Unknown, Uncoded 03/04/23 08:48) TREAT WITH BENADRYL ferrlecit Adverse Reaction (Intermediate, Uncoded 03/04/23 08:48) Rash Medication List - Last Reconciled 03/04/23 by Barbara Lr RN atorvastatin 40 mg PO BEDTIME blood sugar diagnostic As directed clonidine HCl 0.1 mg PO BID dapagliflozin propanediol (Farxiga) 10 mg PO DAILY docusate sodium 100 mg PO BID PRN duloxetine 120 mg PO QAM fluticasone propion-salmeterol 100-50 mcg/dose ea inhalation hydrocortisone 2.5% appl topical insulin glargine (Lantus Solostar U-100 Insulin) 10 units subcut QPM ipratropium-albuterol 0.5 mg-3 mg(2.5 mg base)/3 mL mL inhalation ipratropium-albuterol 20-100 mcg/actuation 1 puff PO QID lancets As directed lancets As directed linagliptin (Tradjenta) 5 mg PO DAILY [id number]-qmuxwkee-womaqmq 24,000-76,000 -120,000 unit 1 cap PO TID loratadine 10 mg PO DAILY PRN lorazepam 1 mg PO BID meclizine mg PO montelukast 10 mg PO BEDTIME nifedipine ER 30 mg PO DAILY ondansetron 4 mg PO Q8H PRN polyethylene glycol 3350 grams PO [procrit pt states she receives it weekly ] quetiapine 200 mg PO BEDTIME rabeprazole 20 mg PO DAILY ropinirole 0.25 mg PO BEDTIME sodium chloride 0.65% (Deep Sea Nasal) sprays intranasal Q2H PRN triamcinolone acetonide 0.1% appl topical warfarin 2.5 mg See Protocol PO DAILY Nursing Note INR: 2.4- in therapeutic range 2-3 Medications and supplements reviewed- pt stopped plavix in sept No changes in health, diet, medications, or supplements, Denies any signs and symptoms of bleeding or bruising or clotting. 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
[2023-03-04 08:53] LABS: Prothrombin Time Whole Bld POC 29.2 sec (11.1-13.5); ~PT, ~INR - Anti Coag Clinic 2.4 (0.9-1.1)
== END 2023-03-04 09:12 | disposition home or self-care (01) ==
LOC: HO.ACS 08:10
PROVIDERS: PCP Internal Medicine; Visit Provider Internal Medicine
DX: Z79.01 Long term (current) use of anticoagulants (principal)

== ENCOUNTER → 2023-03-04 08:10 | Outpatient (BNVA) | payer OTHER, SELFPAY | PROVIDERS: PCP Internal Medicine; Visit Provider Internal Medicine | DX: Z86.718 Personal history of other venous thrombosis and embolism (principal); Z79.01 Long term (current) use of anticoagulants; Z51.81 Encounter for therapeutic drug level monitoring | CPT/HCPCS: 85610; 99211 ==

== ENCOUNTER → 2023-03-17 10:17 | Outpatient (BNVA) | payer OTHER, SELFPAY | PROVIDERS: PCP Internal Medicine; Visit Provider Internal Medicine ==

== ENCOUNTER 2023-03-25 08:22 | Outpatient (AMB) | payer OTHER, SELFPAY ==
[2023-03-25 08:34] LABS: Prothrombin Time Whole Bld POC 18.4 sec (11.1-13.5); ~PT, ~INR - Anti Coag Clinic 1.5 (0.9-1.1)
--- NOTE | 2023-03-25 08:35 | MHC.OFFVISCO ---
Intake Intake Visit Reasons: Anticoagulation Allergies codeine [Codeine] Allergy (Severe, Verified 03/25/23 08:26) DIFFICULTY BREATHING Penicillins Allergy (Severe, Verified 03/25/23 08:26) RASH penicillin V Allergy (Intermediate, Verified 03/25/23 08:26) RASH tramadol [Ultram] Allergy (Unknown, Verified 03/25/23 08:26) hallucinations Shellfish Allergy (Severe, Uncoded 03/25/23 08:26) THROAT SWELLING Contrast Allergy PreMed Pack Allergy (Unknown, Uncoded 03/25/23 08:26) TREAT WITH BENADRYL ferrlecit Adverse Reaction (Intermediate, Uncoded 03/25/23 08:26) Rash Medication List - Last Reconciled 03/25/23 by Tangela Sam RN atorvastatin 80 mg PO DAILY blood sugar diagnostic As directed clonidine HCl 0.1 mg PO BID dapagliflozin propanediol (Farxiga) 10 mg PO DAILY diphenhydramine HCl (Banophen) mg PO docusate sodium 100 mg PO BID PRN duloxetine 120 mg PO QAM fluticasone propion-salmeterol 100-50 mcg/dose ea inhalation hydrocortisone 2.5% appl topical insulin glargine (Lantus Solostar U-100 Insulin) 10 units subcut QPM ipratropium-albuterol 0.5 mg-3 mg(2.5 mg base)/3 mL mL inhalation ipratropium-albuterol 20-100 mcg/actuation 1 puff PO QID lancets As directed lancets As directed latanoprost 0.005% drps ophthalmic (eye) linagliptin (Tradjenta) 5 mg PO DAILY gmmmht-jaepljbb-xoebzkv 24,000-76,000 -120,000 unit 1 cap PO TID loratadine 10 mg PO DAILY PRN lorazepam 1 mg PO BID meclizine mg PO montelukast 10 mg PO BEDTIME nifedipine ER 30 mg PO DAILY ondansetron 4 mg PO Q8H PRN polyethylene glycol 3350 grams PO prednisone 50 mg PO DAILY [procrit pt states she receives it weekly ] quetiapine 200 mg PO BEDTIME rabeprazole 20 mg PO DAILY ropinirole 0.25 mg PO BEDTIME sodium chloride 0.65% (Deep Sea Nasal) sprays intranasal Q2H PRN triamcinolone acetonide 0.1% appl topical warfarin 2.5 mg See Protocol PO DAILY Nursing Note INR ?1.5? out of therapeutic range Medications and supplements reviewed Patient status: S/P BRAIN ANGIOGRAM WAS OFF WARFARIN X 3 DAYS LAST WEEK - NO NEW DX AT THIS TIME Medications or supplements: ATRORVASTATIN INCREASED FROM 40MG TO 80 MG Diet: FAIR USUAL Denies any signs and symptoms of bleeding or clotting or unusual bruising Bleeding, bruising, clotting discussed Nutritional guidance given: AVOID GREENS X 3 DAYS, EAT ORANGE AND RED TO HELP RAISE THE INR Dose: 5MG TODAY THEN RESUME 3.75MG X 34 DAYS/ 2.5MGMWF 9 ONLY BOOSTER DOSE X 1 DAY DUE TO INCREASE IN CHOLESTEROL MED FROM 40MG TO 80 MG F/U INR Date : 1 WEEK ?? Patient verbalizing understanding of instructions given. CALL TO PCP LEFT MSG WITH ERNIE TO CONVEY TO MEDICAL TEAM 1000AM NURSE DELIA RETURNED CALL AND WILL CONVEY MSG TO MEDICAL TEAM OF PT STATUS AND PLAN OF CARE Coding Level of Care Code Est Patient Level 1 Diagnoses Current use of anticoagulant therapy Z79.01 Results AMB INR Fingerstick AMB INR Fingerstick 1.5 Last Edit by Tangela Sam RN on 03/25/23 08:34 MANUAL ENTRY Assessment & Plan Assessment & Plan (1) Current use of anticoagulant therapy: Code(s): Z79.01 - custodial (current) use of anticoagulants Category: Medical
== END 2023-03-25 08:45 | disposition home or self-care (01) ==
LOC: HO.ACS 08:22
PROVIDERS: PCP Internal Medicine; Visit Provider Internal Medicine
DX: Z79.01 Long term (current) use of anticoagulants (principal)

== ENCOUNTER → 2023-03-25 08:22 | Outpatient (BNVA) | payer OTHER, SELFPAY | PROVIDERS: PCP Internal Medicine; Visit Provider Internal Medicine | DX: Z86.718 Personal history of other venous thrombosis and embolism (principal); Z79.01 Long term (current) use of anticoagulants; Z51.81 Encounter for therapeutic drug level monitoring | CPT/HCPCS: 85610; 99211 ==

== ENCOUNTER 2023-04-01 08:39 | Outpatient (AMB) | payer OTHER, SELFPAY ==
[2023-04-01 08:51] LABS: ~PT, ~INR - Anti Coag Clinic 2.8 (0.9-1.1)
--- NOTE | 2023-04-01 09:01 | MHC.OFFVISCO ---
Intake Intake Visit Reasons: Anticoagulation Allergies codeine [Codeine] Allergy (Severe, Verified 04/01/23 08:42) DIFFICULTY BREATHING Penicillins Allergy (Severe, Verified 04/01/23 08:42) RASH penicillin V Allergy (Intermediate, Verified 04/01/23 08:42) RASH tramadol [Ultram] Allergy (Unknown, Verified 04/01/23 08:42) hallucinations Shellfish Allergy (Severe, Uncoded 04/01/23 08:42) THROAT SWELLING Contrast Allergy PreMed Pack Allergy (Unknown, Uncoded 04/01/23 08:42) TREAT WITH BENADRYL ferrlecit Adverse Reaction (Intermediate, Uncoded 04/01/23 08:42) Rash Medication List - Last Reconciled 04/01/23 by Tangela Sam RN atorvastatin 80 mg PO DAILY blood sugar diagnostic As directed clonidine HCl 0.1 mg PO BID dapagliflozin propanediol (Farxiga) 10 mg PO DAILY diphenhydramine HCl (Banophen) mg PO docusate sodium 100 mg PO BID PRN duloxetine 120 mg PO QAM fluticasone propion-salmeterol 100-50 mcg/dose ea inhalation hydrocortisone 2.5% appl topical insulin glargine (Lantus Solostar U-100 Insulin) 10 units subcut QPM ipratropium-albuterol 0.5 mg-3 mg(2.5 mg base)/3 mL mL inhalation ipratropium-albuterol 20-100 mcg/actuation 1 puff PO QID lancets As directed lancets As directed latanoprost 0.005% drps ophthalmic (eye) linagliptin (Tradjenta) 5 mg PO DAILY gddpan-kjeslfwd-hhasmyg 24,000-76,000 -120,000 unit 1 cap PO TID loratadine 10 mg PO DAILY PRN lorazepam 1 mg PO BID meclizine mg PO montelukast 10 mg PO BEDTIME nifedipine ER 30 mg PO DAILY ondansetron 4 mg PO Q8H PRN polyethylene glycol 3350 grams PO prednisone 50 mg PO DAILY [procrit pt states she receives it weekly ] quetiapine 200 mg PO BEDTIME rabeprazole 20 mg PO DAILY ropinirole 0.25 mg PO BEDTIME sodium chloride 0.65% (Deep Sea Nasal) sprays intranasal Q2H PRN triamcinolone acetonide 0.1% appl topical warfarin 2.5 mg See Protocol PO DAILY Nursing Note INR: 2.8 in therapeutic range Medications and supplements reviewed has not been having much protein in her diet, she was enc to try having eggs, yogurt, beans, avocado Denies any signs and symptoms of bleeding or bruising or clotting. Bleeding, bruising, clotting discussed Nutritional guidance given - weekly greens kiwi, blueberries, avocado Dose: she may decrease 1 day to 2.5mg if bruising cont, cont same dose for now 2.5mg mwf/ 3.75mg x 4 days F/U INR: 2weeks Patient verbalizes understanding of instructions given Coding Level of Care Code Est Patient Level 1 Diagnoses Current use of anticoagulant therapy Z79.01 Assessment & Plan Assessment & Plan (1) Current use of anticoagulant therapy: Code(s): Z79.01 - skilled nursing (current) use of anticoagulants Category: Medical
== END 2023-04-01 09:04 | disposition home or self-care (01) ==
LOC: HO.ACS 08:39
PROVIDERS: PCP Internal Medicine; Visit Provider Internal Medicine
DX: Z79.01 Long term (current) use of anticoagulants (principal)

== ENCOUNTER → 2023-04-01 08:39 | Outpatient (BNVA) | payer OTHER, SELFPAY | PROVIDERS: PCP Internal Medicine; Visit Provider Internal Medicine | DX: Z86.718 Personal history of other venous thrombosis and embolism (principal); Z79.01 Long term (current) use of anticoagulants; Z51.81 Encounter for therapeutic drug level monitoring | CPT/HCPCS: 85610; 99211 ==

== ENCOUNTER 2023-04-14 10:15 | Outpatient (AMB) | payer OTHER, SELFPAY ==
--- NOTE | 2023-04-14 10:28 | MHC.OFFVISCO ---
Intake Intake Visit Reasons: Anticoagulation Allergies codeine [Codeine] Allergy (Severe, Verified 04/14/23 10:20) DIFFICULTY BREATHING Penicillins Allergy (Severe, Verified 04/14/23 10:20) RASH penicillin V Allergy (Intermediate, Verified 04/14/23 10:20) RASH tramadol [Ultram] Allergy (Unknown, Verified 04/14/23 10:20) hallucinations Shellfish Allergy (Severe, Uncoded 04/14/23 10:20) THROAT SWELLING Contrast Allergy PreMed Pack Allergy (Unknown, Uncoded 04/14/23 10:20) TREAT WITH BENADRYL ferrlecit Adverse Reaction (Intermediate, Uncoded 04/14/23 10:20) Rash Medication List - Last Reconciled 04/14/23 by Barbara Lr RN atorvastatin 80 mg PO DAILY blood sugar diagnostic As directed clonidine HCl 0.1 mg PO BID dapagliflozin propanediol (Farxiga) 10 mg PO DAILY diphenhydramine HCl (Banophen) mg PO docusate sodium 100 mg PO BID PRN duloxetine 120 mg PO QAM fluticasone propion-salmeterol 100-50 mcg/dose ea inhalation hydrocortisone 2.5% appl topical insulin glargine (Lantus Solostar U-100 Insulin) 10 units subcut QPM ipratropium-albuterol 0.5 mg-3 mg(2.5 mg base)/3 mL mL inhalation ipratropium-albuterol 20-100 mcg/actuation 1 puff PO QID lancets As directed lancets As directed latanoprost 0.005% drps ophthalmic (eye) linagliptin (Tradjenta) 5 mg PO DAILY ymhxbo-lvuhrkbi-fhowuou 24,000-76,000 -120,000 unit 1 cap PO TID loratadine 10 mg PO DAILY PRN lorazepam 1 mg PO BID meclizine mg PO montelukast 10 mg PO BEDTIME nifedipine ER 30 mg PO DAILY ondansetron 4 mg PO Q8H PRN polyethylene glycol 3350 grams PO prednisone 50 mg PO DAILY [procrit pt states she receives it weekly ] quetiapine 200 mg PO BEDTIME rabeprazole 20 mg PO DAILY ropinirole 0.25 mg PO BEDTIME sodium chloride 0.65% (Deep Sea Nasal) sprays intranasal Q2H PRN triamcinolone acetonide 0.1% appl topical warfarin 2.5 mg See Protocol PO DAILY Nursing Note INR: 2.0- in therapeutic range of 2-3 Medications and supplements reviewed- no changes No changes in health, diet, medications, or supplements, Denies any signs and symptoms of bleeding or bruising or clotting. 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 pt states inr in hosp was 1.7 or 1.8. pt treasury specialist present to assist pt Coding Level of Care Code Est Patient Level 1 Results AMB INR Fingerstick AMB INR Fingerstick 2.0 Last Edit by Barbara Lr RN on 04/14/23 10:29
[2023-04-14 10:30] LABS: Prothrombin Time Whole Bld POC 23.9 sec (11.1-13.5)
== END 2023-04-14 10:45 | disposition home or self-care (01) ==
LOC: HO.ACS 10:15
PROVIDERS: PCP Internal Medicine; Visit Provider Internal Medicine
DX: Z79.01 Long term (current) use of anticoagulants (principal)

== ENCOUNTER → 2023-04-14 10:15 | Outpatient (BNVA) | payer OTHER, SELFPAY | PROVIDERS: PCP Internal Medicine; Visit Provider Internal Medicine | DX: Z86.718 Personal history of other venous thrombosis and embolism (principal); Z79.01 Long term (current) use of anticoagulants; Z51.81 Encounter for therapeutic drug level monitoring | CPT/HCPCS: 85610; 99211 ==

== ENCOUNTER 2023-04-28 09:11 | Outpatient (AMB) | payer OTHER, SELFPAY ==
[2023-04-28 09:42] LABS: Prothrombin Time Whole Bld POC 28.5 sec (11.1-13.5); ~PT, ~INR - Anti Coag Clinic 2.4 (0.9-1.1)
--- NOTE | 2023-04-28 09:48 | MHC.OFFVISCO ---
Intake Intake Visit Reasons: Anticoagulation Allergies codeine [Codeine] Allergy (Severe, Verified 04/28/23 09:37) DIFFICULTY BREATHING Penicillins Allergy (Severe, Verified 04/28/23 09:37) RASH penicillin V Allergy (Intermediate, Verified 04/28/23 09:37) RASH tramadol [Ultram] Allergy (Unknown, Verified 04/28/23 09:37) hallucinations Shellfish Allergy (Severe, Uncoded 04/14/23 10:20) THROAT SWELLING Contrast Allergy PreMed Pack Allergy (Unknown, Uncoded 04/14/23 10:20) TREAT WITH BENADRYL ferrlecit Adverse Reaction (Intermediate, Uncoded 04/14/23 10:20) Rash Medication List - Last Reconciled 04/28/23 by Teresa Flowres RN atorvastatin 80 mg PO DAILY blood sugar diagnostic As directed clonidine HCl 0.1 mg PO BID dapagliflozin propanediol (Farxiga) 10 mg PO DAILY diphenhydramine HCl (Banophen) mg PO docusate sodium 100 mg PO BID PRN duloxetine 120 mg PO QAM fluticasone propion-salmeterol 100-50 mcg/dose ea inhalation hydrocortisone 2.5% appl topical insulin glargine (Lantus Solostar U-100 Insulin) 10 units subcut QPM ipratropium-albuterol 0.5 mg-3 mg(2.5 mg base)/3 mL mL inhalation ipratropium-albuterol 20-100 mcg/actuation 1 puff PO QID lancets As directed lancets As directed latanoprost 0.005% drps ophthalmic (eye) linagliptin (Tradjenta) 5 mg PO DAILY zfglne-ngnnbjit-xddhnwa 24,000-76,000 -120,000 unit 1 cap PO TID loratadine 10 mg PO DAILY PRN lorazepam 1 mg PO BID meclizine mg PO montelukast 10 mg PO BEDTIME nifedipine ER 30 mg PO DAILY ondansetron 4 mg PO Q8H PRN polyethylene glycol 3350 grams PO prednisone 50 mg PO DAILY [procrit pt states she receives it weekly ] quetiapine 200 mg PO BEDTIME rabeprazole 20 mg PO DAILY ropinirole 0.25 mg PO BEDTIME sodium chloride 0.65% (Deep Sea Nasal) sprays intranasal Q2H PRN triamcinolone acetonide 0.1% appl topical warfarin 2.5 mg See Protocol PO DAILY Nursing Note NO CP,SOB,DIET/MED CHANGES,FALLS OR SX OF BLEEDING. CONTINUE PRESENT DOSE AND FOLLOW-UP IN 3 WEEKS GOOD UNDERSTANDING OF DOSING INSTR. Coding Level of Care Code Est Patient Level 1 Diagnoses Current use of anticoagulant therapy Z79.01 Assessment & Plan Assessment & Plan (1) Current use of anticoagulant therapy: Code(s): Z79.01 - [facility] (current) use of anticoagulants Category: Medical
== END 2023-04-28 09:50 | disposition home or self-care (01) ==
LOC: HO.ACS 09:11
PROVIDERS: PCP Internal Medicine; Visit Provider Internal Medicine
DX: Z79.01 Long term (current) use of anticoagulants (principal)

== ENCOUNTER → 2023-04-28 09:11 | Outpatient (BNVA) | payer OTHER, SELFPAY | PROVIDERS: PCP Internal Medicine; Visit Provider Internal Medicine | DX: Z86.718 Personal history of other venous thrombosis and embolism (principal); Z79.01 Long term (current) use of anticoagulants; Z51.81 Encounter for therapeutic drug level monitoring | CPT/HCPCS: 85610; 99211 ==

== ENCOUNTER 2023-05-21 09:35 | Outpatient (AMB) | payer OTHER, SELFPAY ==
--- NOTE | 2023-05-21 10:16 | MHC.OFFVISCO ---
Intake Intake Visit Reasons: Anticoagulation Allergies codeine [Codeine] Allergy (Severe, Verified 05/21/23 10:12) DIFFICULTY BREATHING Penicillins Allergy (Severe, Verified 05/21/23 10:12) RASH penicillin V Allergy (Intermediate, Verified 05/21/23 10:12) RASH tramadol [Ultram] Allergy (Unknown, Verified 05/21/23 10:12) hallucinations Shellfish Allergy (Severe, Uncoded 05/21/23 10:12) THROAT SWELLING Contrast Allergy PreMed Pack Allergy (Unknown, Uncoded 05/21/23 10:12) TREAT WITH BENADRYL ferrlecit Adverse Reaction (Intermediate, Uncoded 05/21/23 10:12) Rash Medication List - Last Reconciled 05/21/23 by Barbara Lr RN atorvastatin 80 mg PO DAILY blood sugar diagnostic As directed clonidine HCl 0.1 mg PO BID dapagliflozin propanediol (Farxiga) 10 mg PO DAILY diphenhydramine HCl (Banophen) mg PO docusate sodium 100 mg PO BID PRN duloxetine 120 mg PO QAM fluticasone propion-salmeterol 100-50 mcg/dose ea inhalation hydrocortisone 2.5% appl topical insulin glargine (Lantus Solostar U-100 Insulin) 10 units subcut QPM ipratropium-albuterol 0.5 mg-3 mg(2.5 mg base)/3 mL mL inhalation ipratropium-albuterol 20-100 mcg/actuation 1 puff PO QID lancets As directed lancets As directed latanoprost 0.005% drps ophthalmic (eye) linagliptin (Tradjenta) 5 mg PO DAILY twpwzf-dnzacllr-uodyrwj 24,000-76,000 -120,000 unit 1 cap PO TID loratadine 10 mg PO DAILY PRN lorazepam 1 mg PO BID meclizine mg PO montelukast 10 mg PO BEDTIME nifedipine ER 30 mg PO DAILY ondansetron 4 mg PO Q8H PRN polyethylene glycol 3350 grams PO prednisone 50 mg PO DAILY [procrit pt states she receives it weekly ] quetiapine 200 mg PO BEDTIME rabeprazole 20 mg PO DAILY ropinirole 0.25 mg PO BEDTIME sodium chloride 0.65% (Deep Sea Nasal) sprays intranasal Q2H PRN triamcinolone acetonide 0.1% appl topical warfarin 2.5 mg See Protocol PO DAILY Nursing Note INR: 2.4- in therapeutic range of 2-3 Medications and supplements reviewed- no changes No changes in health, diet, medications, or supplements, Denies any signs and symptoms of bleeding or bruising or clotting. 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
== END 2023-05-21 10:27 | disposition home or self-care (01) ==
LOC: HO.ACS 09:35
PROVIDERS: PCP Internal Medicine; Visit Provider Internal Medicine
DX: Z79.01 Long term (current) use of anticoagulants (principal)

== ENCOUNTER → 2023-05-21 09:35 | Outpatient (BNVA) | payer OTHER, SELFPAY | PROVIDERS: PCP Internal Medicine; Visit Provider Internal Medicine | DX: Z86.718 Personal history of other venous thrombosis and embolism (principal); Z79.01 Long term (current) use of anticoagulants; Z51.81 Encounter for therapeutic drug level monitoring | CPT/HCPCS: 85610; 99211 ==

== ENCOUNTER 2023-06-04 09:12 | Outpatient (AMB) | payer OTHER, SELFPAY ==
--- NOTE | 2023-06-04 09:49 | MHC.OFFVISCO ---
Intake Intake Visit Reasons: Anticoagulation Allergies codeine [Codeine] Allergy (Severe, Verified 06/04/23 09:45) DIFFICULTY BREATHING Penicillins Allergy (Severe, Verified 06/04/23 09:45) RASH penicillin V Allergy (Intermediate, Verified 06/04/23 09:45) RASH tramadol [Ultram] Allergy (Unknown, Verified 06/04/23 09:45) hallucinations Shellfish Allergy (Severe, Uncoded 06/04/23 09:45) THROAT SWELLING Contrast Allergy PreMed Pack Allergy (Unknown, Uncoded 06/04/23 09:45) TREAT WITH BENADRYL ferrlecit Adverse Reaction (Intermediate, Uncoded 06/04/23 09:45) Rash Medication List - Last Reconciled 06/04/23 by Barbara Lr RN atorvastatin 80 mg PO DAILY blood sugar diagnostic As directed clonidine HCl 0.1 mg PO BID dapagliflozin propanediol (Farxiga) 10 mg PO DAILY diphenhydramine HCl (Banophen) mg PO docusate sodium 100 mg PO BID PRN duloxetine 120 mg PO QAM fluticasone propion-salmeterol 100-50 mcg/dose ea inhalation hydrocortisone 2.5% appl topical insulin glargine (Lantus Solostar U-100 Insulin) 10 units subcut QPM ipratropium-albuterol 0.5 mg-3 mg(2.5 mg base)/3 mL mL inhalation ipratropium-albuterol 20-100 mcg/actuation 1 puff PO QID lancets As directed lancets As directed latanoprost 0.005% drps ophthalmic (eye) linagliptin (Tradjenta) 5 mg PO DAILY sjscxk-ncsgeofh-mezjmkh 24,000-76,000 -120,000 unit 1 cap PO TID loratadine 10 mg PO DAILY PRN lorazepam 1 mg PO BID meclizine mg PO montelukast 10 mg PO BEDTIME nifedipine ER 30 mg PO DAILY ondansetron 4 mg PO Q8H PRN polyethylene glycol 3350 grams PO prednisone 50 mg PO DAILY [procrit pt states she receives it weekly ] quetiapine 200 mg PO BEDTIME rabeprazole 20 mg PO DAILY ropinirole 0.25 mg PO BEDTIME sodium chloride 0.65% (Deep Sea Nasal) sprays intranasal Q2H PRN triamcinolone acetonide 0.1% appl topical warfarin 2.5 mg See Protocol PO DAILY Nursing Note INR: 2.5- in therapeutic range of 2-3 Medications and supplements reviewed- no changes No changes in health, diet, medications, or supplements, Denies any signs and symptoms of bleeding or bruising or clotting. Bleeding, bruising, clotting discussed Nutritional guidance given Dose: 2.5mg x 3, 3.75mg x 4 F/U INR: 2 weeks Patient verbalizes understanding of instructions given pt sight impaired, states able to see shadows on tv this am Coding Level of Care Code Est Patient Level 1 Diagnoses Current use of anticoagulant therapy Z79.01 Assessment & Plan Assessment & Plan (1) Current use of anticoagulant therapy: Code(s): Z79.01 - alf (current) use of anticoagulants Category: Medical
[2023-06-04 09:51] LABS: Prothrombin Time Whole Bld POC 29.6 sec (11.1-13.5); ~PT, ~INR - Anti Coag Clinic 2.5 (0.9-1.1)
== END 2023-06-04 10:09 | disposition home or self-care (01) ==
LOC: HO.ACS 09:12
PROVIDERS: PCP Internal Medicine; Visit Provider Internal Medicine
DX: Z79.01 Long term (current) use of anticoagulants (principal)

== ENCOUNTER → 2023-06-04 09:12 | Outpatient (BNVA) | payer OTHER, SELFPAY | PROVIDERS: PCP Internal Medicine; Visit Provider Internal Medicine | DX: Z86.718 Personal history of other venous thrombosis and embolism (principal); Z79.01 Long term (current) use of anticoagulants; Z51.81 Encounter for therapeutic drug level monitoring | CPT/HCPCS: 85610; 99211 ==

== ENCOUNTER 2023-06-18 08:48 | Outpatient (AMB) | payer OTHER, SELFPAY ==
[2023-06-18 09:35] LABS: Prothrombin Time Whole Bld POC 25.3 sec (11.1-13.5); ~PT, ~INR - Anti Coag Clinic 2.1 (0.9-1.1)
--- NOTE | 2023-06-18 09:42 | MHC.OFFVISCO ---
Intake Intake Visit Reasons: Anticoagulation Allergies codeine [Codeine] Allergy (Severe, Verified 06/18/23 09:29) DIFFICULTY BREATHING Penicillins Allergy (Severe, Verified 06/18/23 09:29) RASH penicillin V Allergy (Intermediate, Verified 06/18/23 09:29) RASH tramadol [Ultram] Allergy (Unknown, Verified 06/18/23 09:29) hallucinations Shellfish Allergy (Severe, Uncoded 06/18/23 09:29) THROAT SWELLING Contrast Allergy PreMed Pack Allergy (Unknown, Uncoded 06/18/23 09:29) TREAT WITH BENADRYL ferrlecit Adverse Reaction (Intermediate, Uncoded 06/18/23 09:29) Rash Medication List - Last Reconciled 06/18/23 by Tangela Sam RN atorvastatin 80 mg PO DAILY blood sugar diagnostic As directed clonidine HCl 0.1 mg PO BID dapagliflozin propanediol (Farxiga) 10 mg PO DAILY diphenhydramine HCl (Banophen) mg PO docusate sodium 100 mg PO BID PRN duloxetine 120 mg PO QAM fluticasone propion-salmeterol 100-50 mcg/dose ea inhalation hydrocortisone 2.5% appl topical insulin glargine (Lantus Solostar U-100 Insulin) 10 units subcut QPM ipratropium-albuterol 0.5 mg-3 mg(2.5 mg base)/3 mL mL inhalation ipratropium-albuterol 20-100 mcg/actuation 1 puff PO QID lancets As directed lancets As directed latanoprost 0.005% drps ophthalmic (eye) linagliptin (Tradjenta) 5 mg PO DAILY iehsme-hasjnutv-xnfcbqq 24,000-76,000 -120,000 unit 1 cap PO TID loratadine 10 mg PO DAILY PRN lorazepam 1 mg PO BID meclizine mg PO montelukast 10 mg PO BEDTIME nifedipine ER 30 mg PO DAILY ondansetron 4 mg PO Q8H PRN polyethylene glycol 3350 grams PO prednisone 50 mg PO DAILY [procrit pt states she receives it weekly ] quetiapine 200 mg PO BEDTIME rabeprazole 20 mg PO DAILY ropinirole 0.25 mg PO BEDTIME sodium chloride 0.65% (Deep Sea Nasal) sprays intranasal Q2H PRN triamcinolone acetonide 0.1% appl topical warfarin 2.5 mg See Protocol PO DAILY Nursing Note INR: 2.1 in therapeutic range Medications and supplements reviewed- NO CHANGES PER PT STATES SHE IS GOING TO HAVE CARDIAC WORK UP AND CAROTID ULTRASOUND TO ASSESS BRAIN BLOOD FLOW Denies any signs and symptoms of bleeding or bruising or clotting. 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
== END 2023-06-18 09:44 | disposition home or self-care (01) ==
LOC: HO.ACS 08:48
PROVIDERS: PCP Internal Medicine; Visit Provider Internal Medicine
DX: Z79.01 Long term (current) use of anticoagulants (principal)

== ENCOUNTER → 2023-06-18 08:48 | Outpatient (BNVA) | payer OTHER, SELFPAY | PROVIDERS: PCP Internal Medicine; Visit Provider Internal Medicine | DX: Z86.718 Personal history of other venous thrombosis and embolism (principal); Z79.01 Long term (current) use of anticoagulants; Z51.81 Encounter for therapeutic drug level monitoring | CPT/HCPCS: 85610; 99211 ==

== ENCOUNTER 2023-07-08 09:02 | Outpatient (AMB) | payer OTHER, SELFPAY ==
--- NOTE | 2023-07-08 09:18 | MHC.OFFVISCO ---
Intake Intake Visit Reasons: Anticoagulation Allergies codeine [Codeine] Allergy (Severe, Verified 07/08/23 09:13) DIFFICULTY BREATHING Penicillins Allergy (Severe, Verified 07/08/23 09:13) RASH penicillin V Allergy (Intermediate, Verified 07/08/23 09:13) RASH tramadol [Ultram] Allergy (Unknown, Verified 07/08/23 09:13) hallucinations Shellfish Allergy (Severe, Uncoded 07/08/23 09:13) THROAT SWELLING Contrast Allergy PreMed Pack Allergy (Unknown, Uncoded 07/08/23 09:13) TREAT WITH BENADRYL ferrlecit Adverse Reaction (Intermediate, Uncoded 07/08/23 09:13) Rash Medication List - Last Reconciled 07/08/23 by Tangela Sam RN atorvastatin 80 mg PO DAILY blood sugar diagnostic As directed clonidine HCl 0.1 mg PO BID dapagliflozin propanediol (Farxiga) 10 mg PO DAILY diphenhydramine HCl (Banophen) mg PO docusate sodium 100 mg PO BID PRN duloxetine 120 mg PO QAM fluticasone propion-salmeterol 100-50 mcg/dose ea inhalation gabapentin 100 mg PO TID hydrocortisone 2.5% appl topical insulin glargine (Lantus Solostar U-100 Insulin) 10 units subcut QPM ipratropium-albuterol 0.5 mg-3 mg(2.5 mg base)/3 mL mL inhalation ipratropium-albuterol 20-100 mcg/actuation 1 puff PO QID lancets As directed lancets As directed latanoprost 0.005% drps ophthalmic (eye) linagliptin (Tradjenta) 5 mg PO DAILY glvlfz-qzdtpkpy-atchgrw 24,000-76,000 -120,000 unit 1 cap PO TID loratadine 10 mg PO DAILY PRN lorazepam 1 mg PO BID meclizine mg PO montelukast 10 mg PO BEDTIME nifedipine ER 30 mg PO DAILY ondansetron 4 mg PO Q8H PRN polyethylene glycol 3350 grams PO [procrit pt states she receives it weekly ] quetiapine 200 mg PO BEDTIME rabeprazole 20 mg PO DAILY ropinirole 0.25 mg PO BEDTIME sodium chloride 0.65% (Deep Sea Nasal) sprays intranasal Q2H PRN triamcinolone acetonide 0.1% appl topical warfarin 2.5 mg See Protocol PO DAILY Nursing Note S/P fall pt states r/t to seizure Wednesday07/06/23- broke 2 front teeth, hurt her back, then yesterday she states when she was sitting the recliner she had another seizure, states since seizure she has had a return of rectal bleeding since Wednesday and wearing pad and states it is bright red, it is not when she has a bowel movement it is any time, she denies any constipation or bowel strain, she was enc to eat soft foods or liquids to allow her bowels to rest, and call md she is to have a cardiac echo tomorrow states she is also moving to better place and will be on the first floor perhaps or august *she has a new ACADEMIC AFFAIRS SPECIALIST that provides her transportation for appt and very helpful and likes her INR: 2.0 in therapeutic range Medications and supplements reviewed started gabapentin recently Denies any signs and symptoms of bleeding or bruising or clotting. Bleeding, bruising, clotting discussed Nutritional guidance given and to try broth and avocado Dose: 2.5MG MWF/ 3.75MG X 4 DAYS If bleeding persists call , spotting decrease warfarin to 2.5mg, little more than spotting 1.25mg (half tab) increase large amt hold warfarin and go to ER F/U INR: 2 weeks Patient verbalizes understanding of instructions given t/c to [facility] PCP spoke with Jennifer who will convey pt status to medical team and will have someone return call. 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
[2023-07-08 16:07] LABS: Prothrombin Time Whole Bld POC 23.5 sec (11.1-13.5)
== END 2023-07-08 09:48 | disposition home or self-care (01) ==
LOC: HO.ACS 09:02
PROVIDERS: PCP Internal Medicine; Visit Provider Internal Medicine
DX: Z79.01 Long term (current) use of anticoagulants (principal)

== ENCOUNTER → 2023-07-08 09:02 | Outpatient (BNVA) | payer OTHER, SELFPAY | PROVIDERS: PCP Internal Medicine; Visit Provider Internal Medicine | DX: Z86.718 Personal history of other venous thrombosis and embolism (principal); Z79.01 Long term (current) use of anticoagulants; Z51.81 Encounter for therapeutic drug level monitoring | CPT/HCPCS: 85610; 99211 ==

== ENCOUNTER 2023-08-06 09:07 | Outpatient (AMB) | payer OTHER, SELFPAY ==
[2023-08-06 09:38] LABS: ~PT, ~INR - Anti Coag Clinic 1.3 (0.9-1.1)
--- NOTE | 2023-08-06 10:02 | MHC.OFFVISCO ---
Intake Intake Visit Reasons: Anticoagulation Allergies codeine [Codeine] Allergy (Severe, Verified 08/06/23 09:33) DIFFICULTY BREATHING Penicillins Allergy (Severe, Verified 08/06/23 09:33) RASH penicillin V Allergy (Intermediate, Verified 08/06/23 09:33) RASH tramadol [Ultram] Allergy (Unknown, Verified 08/06/23 09:33) hallucinations Shellfish Allergy (Severe, Uncoded 08/06/23 09:33) THROAT SWELLING Contrast Allergy PreMed Pack Allergy (Unknown, Uncoded 08/06/23 09:33) TREAT WITH BENADRYL ferrlecit Adverse Reaction (Intermediate, Uncoded 08/06/23 09:33) Rash Medication List - Last Reconciled 08/06/23 by Tonia Angeles RN atorvastatin 80 mg PO DAILY blood sugar diagnostic As directed clonidine HCl 0.1 mg PO BID dapagliflozin propanediol (Farxiga) 10 mg PO DAILY diphenhydramine HCl (Banophen) mg PO docusate sodium 100 mg PO BID PRN duloxetine 120 mg PO QAM fluticasone propion-salmeterol 100-50 mcg/dose ea inhalation gabapentin 100 mg PO TID hydrocortisone 2.5% appl topical insulin glargine (Lantus Solostar U-100 Insulin) 10 units subcut QPM ipratropium-albuterol 0.5 mg-3 mg(2.5 mg base)/3 mL mL inhalation ipratropium-albuterol 20-100 mcg/actuation 1 puff PO QID lancets As directed lancets As directed latanoprost 0.005% drps ophthalmic (eye) linagliptin (Tradjenta) 5 mg PO DAILY yloziv-oljwkzmn-ssyqkfo 24,000-76,000 -120,000 unit 1 cap PO TID loratadine 10 mg PO DAILY PRN lorazepam 1 mg PO BID meclizine mg PO montelukast 10 mg PO BEDTIME nifedipine ER 30 mg PO DAILY ondansetron 4 mg PO Q8H PRN polyethylene glycol 3350 grams PO [procrit pt states she receives it weekly ] quetiapine 200 mg PO BEDTIME rabeprazole 20 mg PO DAILY ropinirole 0.25 mg PO BEDTIME sodium chloride 0.65% (Deep Sea Nasal) sprays intranasal Q2H PRN triamcinolone acetonide 0.1% appl topical warfarin 2.5 mg See Protocol PO DAILY Nursing Note Pt to [facility] accompanied by SENIOR BUSINESS DEVELOPMENT ANALYST. INR 1.3 out of therapeutic range of 2-3 Pt states she did not miss a dose, has a pill box and her sister prepares her meds for her. Medications and supplements reviewed: no changes No changes in, diet, medications, or supplements. Pt states she hasn't felt well, feels dehydrated and drinking more water than usual. Denies any bruising or clotting. States she has been having rectal bleeding since 2019 after Covid began and that Md's do not know why this is happening. Bleeding, bruising, clotting discussed . Nutritional guidance given to avoid greens next 3 days Dose: todays dose increased to 5mg (2.5mg) then usual dose of 3.75mg the following 2 days and recheck INR on 08/08 F/U INR: 3 days Patient verbalizes understanding of instructions given. Dr Sahra Son's office called. Nurse unavailable. Heat Treater Helper Romelia took ms for nurse to call [facility] back for critical INR. 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
== END 2023-08-06 10:16 | disposition home or self-care (01) ==
LOC: HO.ACS 09:07
PROVIDERS: PCP Internal Medicine; Visit Provider Internal Medicine
DX: Z79.01 Long term (current) use of anticoagulants (principal)

== ENCOUNTER → 2023-08-06 09:07 | Outpatient (BNVA) | payer OTHER, SELFPAY | PROVIDERS: PCP Internal Medicine; Visit Provider Internal Medicine | DX: Z86.718 Personal history of other venous thrombosis and embolism (principal); Z79.01 Long term (current) use of anticoagulants; Z51.81 Encounter for therapeutic drug level monitoring | CPT/HCPCS: 85610; 99211 ==

== ENCOUNTER 2023-08-09 09:53 | Outpatient (AMB) | payer OTHER, SELFPAY ==
[2023-08-09 10:32] LABS: Prothrombin Time Whole Bld POC 24.4 sec (11.1-13.5)
--- NOTE | 2023-08-09 10:38 | MHC.OFFVISCO ---
Intake Intake Visit Reasons: Anticoagulation Allergies codeine [Codeine] Allergy (Severe, Verified 08/09/23 10:34) DIFFICULTY BREATHING Penicillins Allergy (Severe, Verified 08/09/23 10:34) RASH penicillin V Allergy (Intermediate, Verified 08/09/23 10:34) RASH tramadol [Ultram] Allergy (Unknown, Verified 08/09/23 10:34) hallucinations Shellfish Allergy (Severe, Uncoded 08/09/23 10:34) THROAT SWELLING Contrast Allergy PreMed Pack Allergy (Unknown, Uncoded 08/09/23 10:34) TREAT WITH BENADRYL ferrlecit Adverse Reaction (Intermediate, Uncoded 08/09/23 10:34) Rash Medication List - Last Reconciled 08/09/23 by Tonia Angeles RN atorvastatin 80 mg PO DAILY blood sugar diagnostic As directed clonidine HCl 0.1 mg PO BID dapagliflozin propanediol (Farxiga) 10 mg PO DAILY diphenhydramine HCl (Banophen) mg PO docusate sodium 100 mg PO BID PRN duloxetine 120 mg PO QAM fluticasone propion-salmeterol 100-50 mcg/dose ea inhalation gabapentin 100 mg PO TID hydrocortisone 2.5% appl topical insulin glargine (Lantus Solostar U-100 Insulin) 10 units subcut QPM ipratropium-albuterol 0.5 mg-3 mg(2.5 mg base)/3 mL mL inhalation ipratropium-albuterol 20-100 mcg/actuation 1 puff PO QID lancets As directed lancets As directed latanoprost 0.005% drps ophthalmic (eye) linagliptin (Tradjenta) 5 mg PO DAILY ycepjs-zjxduekq-ldibkdz 24,000-76,000 -120,000 unit 1 cap PO TID loratadine 10 mg PO DAILY PRN lorazepam 1 mg PO BID meclizine mg PO montelukast 10 mg PO BEDTIME nifedipine ER 30 mg PO DAILY ondansetron 4 mg PO Q8H PRN polyethylene glycol 3350 grams PO [procrit pt states she receives it weekly ] quetiapine 200 mg PO BEDTIME rabeprazole 20 mg PO DAILY ropinirole 0.25 mg PO BEDTIME sodium chloride 0.65% (Deep Sea Nasal) sprays intranasal Q2H PRN triamcinolone acetonide 0.1% appl topical warfarin 2.5 mg See Protocol PO DAILY Nursing Note INR: 2.0 in therapeutic range 2-3 Medications and supplements reviewed: no changes No changes in health, diet, medications, or supplements, Denies any signs and symptoms of bleeding or bruising or clotting. Bleeding, bruising, clotting discussed Nutritional guidance given continue to have foods from the reds list next 2-3 days and then balance greens and reds Dose: 2.5mg X 3days and 3.75 mg X 4days F/U INR: 1 week Patient verbalizes understanding of instructions given Coding Level of Care Code Est Patient Level 1 Diagnoses Current use of anticoagulant therapy Z79.01 Assessment & Plan Assessment & Plan (1) Current use of anticoagulant therapy: Code(s): Z79.01 - half-way (current) use of anticoagulants Category: Medical
== END 2023-08-09 10:43 | disposition home or self-care (01) ==
LOC: HO.ACS 09:53
PROVIDERS: PCP Internal Medicine; Visit Provider Internal Medicine
DX: Z79.01 Long term (current) use of anticoagulants (principal)

== ENCOUNTER → 2023-08-09 09:53 | Outpatient (BNVA) | payer OTHER, SELFPAY | PROVIDERS: PCP Internal Medicine; Visit Provider Internal Medicine | DX: Z86.718 Personal history of other venous thrombosis and embolism (principal); Z79.01 Long term (current) use of anticoagulants; Z51.81 Encounter for therapeutic drug level monitoring | CPT/HCPCS: 85610; 99211 ==

== ENCOUNTER 2023-08-16 09:17 | Outpatient (AMB) | payer OTHER, SELFPAY ==
[2023-08-16 09:24] LABS: Prothrombin Time Whole Bld POC 26.5 sec (11.1-13.5); ~PT, ~INR - Anti Coag Clinic 2.2 (0.9-1.1)
--- NOTE | 2023-08-16 09:30 | MHC.OFFVISCO ---
Intake Intake Visit Reasons: Anticoagulation Allergies codeine [Codeine] Allergy (Severe, Verified 08/16/23 09:19) DIFFICULTY BREATHING Penicillins Allergy (Severe, Verified 08/16/23 09:19) RASH penicillin V Allergy (Intermediate, Verified 08/16/23 09:19) RASH tramadol [Ultram] Allergy (Unknown, Verified 08/16/23 09:19) hallucinations Shellfish Allergy (Severe, Uncoded 08/16/23 09:19) THROAT SWELLING Contrast Allergy PreMed Pack Allergy (Unknown, Uncoded 08/16/23 09:19) TREAT WITH BENADRYL ferrlecit Adverse Reaction (Intermediate, Uncoded 08/16/23 09:19) Rash Medication List - Last Reconciled 08/16/23 by Tangela Sam RN atorvastatin 80 mg PO DAILY azithromycin 250 mg PO DAILY blood sugar diagnostic As directed clonidine HCl 0.1 mg PO BID dapagliflozin propanediol (Farxiga) 10 mg PO DAILY diphenhydramine HCl (Banophen) mg PO docusate sodium 100 mg PO BID PRN duloxetine 120 mg PO QAM fluticasone propion-salmeterol 100-50 mcg/dose ea inhalation gabapentin 100 mg PO TID hydrocortisone 2.5% appl topical insulin glargine (Lantus Solostar U-100 Insulin) 10 units subcut QPM ipratropium-albuterol 0.5 mg-3 mg(2.5 mg base)/3 mL mL inhalation ipratropium-albuterol 20-100 mcg/actuation 1 puff PO QID lancets As directed lancets As directed latanoprost 0.005% drps ophthalmic (eye) linagliptin (Tradjenta) 5 mg PO DAILY oqowfk-behvdygn-ziyiiwh 24,000-76,000 -120,000 unit 1 cap PO TID loratadine 10 mg PO DAILY PRN lorazepam 1 mg PO BID meclizine mg PO montelukast 10 mg PO BEDTIME nifedipine ER 30 mg PO DAILY ondansetron 4 mg PO Q8H PRN polyethylene glycol 3350 grams PO prednisone 40 mg PO DAILY [procrit pt states she receives it weekly ] quetiapine 200 mg PO BEDTIME rabeprazole 20 mg PO DAILY ropinirole 0.25 mg PO BEDTIME sodium chloride 0.65% (Deep Sea Nasal) sprays intranasal Q2H PRN triamcinolone acetonide 0.1% appl topical warfarin 2.5 mg See Protocol PO DAILY Nursing Note INR: 2.2 in therapeutic range TO HAVE A NEURO CONSULT IN NEAR FUTURE- ENC TO CALL WITH ANY MED CHANGES Medications and supplements reviewed No changes in health, diet, medications, or supplements, Denies any signs and symptoms of bleeding or bruising or clotting. Bleeding, bruising, clotting discussed Nutritional guidance given- review food list weekly - eat a mix of fruits and vegetables Dose: keep same 2.5mg mwf/ 3.75mg x 4 days F/U INR: 2 weeks Patient verbalizes understanding of instructions given Questionnaires HAS-BLED Does the patient had uncontrolled Hypertension?: No Does the patient have renal disease?: No Does the patient have liver disease?: Yes Does the patient have a history of stroke?: Yes Has the patient had major bleeding or predisposition to bleeding?: Yes Does the patient have labile INRs?: Yes Is the patient over 65 years of age?: No Is the patient on medications that gives them a predisposition to bleeding?: Yes Does the patient use alcohol?: No HAS-BLED Score: 5 CHADSVASC Age: <65 Gender: Female Does the patient have a history of CHF?: Yes Does the patient have a history of Hypertension?: Yes Does the patient have a history of Stroke/TIA/Thromboembolism?: Yes Does the patient have a history of Vascular Disease (prior [place], PAD or aortic plaque)?: Yes Does the patient have a history of Diabetes?: No CHADS VACS Score: 6 Evans Prediction Score Rsk VTE Active Cancer: No Previous VTE, excluding superficial vein thrombosis: Yes Reduced mobility: No Already known Thrombophilic Condition: No With-in last month Trauma and/or Surgery: No Elderly 70 year or older: No Heart and/or Respiratory Failure: Yes Acute Myocardial infarction and/or Ischemic Stroke: Yes (CVA) Acute Infection and/or Rheumatologic Disorder: Yes (LUPUS) Obesity (BMI 30 or greater): Yes Ongoing Hormonal Treatment: No Score: 7 Evans Score less than 4; Low Risk of VTE Evans Score 4 or greater; High Risk of VTE Coding Level of Care Code Est Patient Level 1 Diagnoses Current use of anticoagulant therapy Z79.01 Assessment & Plan Assessment & Plan (1) Current use of anticoagulant therapy: Code(s): 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
== END 2023-08-16 09:34 | disposition home or self-care (01) ==
LOC: HO.ACS 09:17
PROVIDERS: PCP Internal Medicine; Visit Provider Internal Medicine
DX: Z79.01 Long term (current) use of anticoagulants (principal)

== ENCOUNTER → 2023-08-16 09:17 | Outpatient (BNVA) | payer OTHER, SELFPAY | PROVIDERS: PCP Internal Medicine; Visit Provider Internal Medicine | DX: Z86.718 Personal history of other venous thrombosis and embolism (principal); Z51.81 Encounter for therapeutic drug level monitoring; Z79.01 Long term (current) use of anticoagulants | CPT/HCPCS: 85610; 99211 ==

== ENCOUNTER 2023-09-13 09:21 | Outpatient (AMB) | payer OTHER, SELFPAY ==
[2023-09-13 09:30] LABS: Prothrombin Time Whole Bld POC 15.6 sec (11.1-13.5); ~PT, ~INR - Anti Coag Clinic 1.3 (0.9-1.1)
--- NOTE | 2023-09-13 09:31 | MHC.OFFVISCO ---
Intake Intake Visit Reasons: Anticoagulation Allergies codeine [Codeine] Allergy (Severe, Verified 09/13/23 09:23) DIFFICULTY BREATHING Penicillins Allergy (Severe, Verified 09/13/23 09:23) RASH penicillin V Allergy (Intermediate, Verified 09/13/23 09:23) RASH tramadol [Ultram] Allergy (Unknown, Verified 09/13/23 09:23) hallucinations Shellfish Allergy (Severe, Uncoded 09/13/23 09:23) THROAT SWELLING Contrast Allergy PreMed Pack Allergy (Unknown, Uncoded 09/13/23 09:23) TREAT WITH BENADRYL ferrlecit Adverse Reaction (Intermediate, Uncoded 09/13/23 09:23) Rash Medication List - Last Reconciled 09/13/23 by Barbara Lr RN atorvastatin 80 mg PO DAILY blood sugar diagnostic As directed clonidine HCl 0.1 mg PO BID dapagliflozin propanediol (Farxiga) 10 mg PO DAILY diphenhydramine HCl (Banophen) mg PO docusate sodium 100 mg PO BID PRN duloxetine 120 mg PO QAM fluticasone propion-salmeterol 100-50 mcg/dose ea inhalation gabapentin 100 mg PO TID hydrocortisone 2.5% appl topical insulin glargine (Lantus Solostar U-100 Insulin) 10 units subcut QPM ipratropium-albuterol 0.5 mg-3 mg(2.5 mg base)/3 mL mL inhalation ipratropium-albuterol 20-100 mcg/actuation 1 puff PO QID lancets As directed lancets As directed latanoprost 0.005% drps ophthalmic (eye) linagliptin (Tradjenta) 5 mg PO DAILY wfascq-lmklurfi-lgijskr 24,000-76,000 -120,000 unit 1 cap PO TID loratadine 10 mg PO DAILY PRN lorazepam 1 mg PO BID meclizine mg PO montelukast 10 mg PO BEDTIME nifedipine ER 30 mg PO DAILY ondansetron 4 mg PO Q8H PRN polyethylene glycol 3350 grams PO [procrit pt states she receives it weekly ] quetiapine 200 mg PO BEDTIME rabeprazole 20 mg PO DAILY ropinirole 0.25 mg PO BEDTIME sodium chloride 0.65% (Deep Sea Nasal) sprays intranasal Q2H PRN triamcinolone acetonide 0.1% appl topical warfarin 2.5 mg See Protocol PO DAILY Nursing Note INR 1.3-?? out of therapeutic range of 2-3 Medications and supplements reviewed Patient status: pt denies missed doses- pt will check pill box, pt reporting seizures daily with episodes of falling, rectal bleeding otilio after eating garlic- last episode this weekend Medications or supplements: no changes Diet: appetite is decreased Denies any signs and symptoms of bleeding or clotting or unusual bruising Bleeding, bruising, clotting discussed - pt aware of risk of clotting Nutritional guidance given: no greens , eat reds to raise Dose: 5mg today then 2.5mg x 3, 3.75mg x 4 F/U INR Date : 09/16/23?? Patient verbalizing understanding of instructions given. pcp dr zabala/ pritesh called at 0950 - spoke to kyara- awaiting call back from nurse- return call from [place] at 1008 nurse made aware of pt increased seizures with falls and rectal bleeding, ? 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
== END 2023-09-13 09:53 | disposition home or self-care (01) ==
LOC: HO.ACS 09:21
PROVIDERS: PCP Internal Medicine; Visit Provider Internal Medicine
DX: Z79.01 Long term (current) use of anticoagulants (principal)

== ENCOUNTER → 2023-09-13 09:21 | Outpatient (BNVA) | payer OTHER, SELFPAY | PROVIDERS: PCP Internal Medicine; Visit Provider Internal Medicine | DX: Z86.718 Personal history of other venous thrombosis and embolism (principal); Z51.81 Encounter for therapeutic drug level monitoring; Z79.01 Long term (current) use of anticoagulants | CPT/HCPCS: 85610; 99211 ==

== ENCOUNTER 2023-09-21 13:53 | Outpatient (AMB) | payer OTHER, SELFPAY ==
--- NOTE | 2023-09-21 14:11 | MHC.OFFVISCO ---
Intake Intake Visit Reasons: Anticoagulation Allergies codeine [Codeine] Allergy (Severe, Verified 09/21/23 14:08) DIFFICULTY BREATHING Penicillins Allergy (Severe, Verified 09/21/23 14:08) RASH penicillin V Allergy (Intermediate, Verified 09/21/23 14:08) RASH tramadol [Ultram] Allergy (Unknown, Verified 09/21/23 14:08) hallucinations Shellfish Allergy (Severe, Uncoded 09/21/23 14:08) THROAT SWELLING Contrast Allergy PreMed Pack Allergy (Unknown, Uncoded 09/21/23 14:08) TREAT WITH BENADRYL ferrlecit Adverse Reaction (Intermediate, Uncoded 09/21/23 14:08) Rash Medication List - Last Reconciled 09/21/23 by Barbara Lr RN atorvastatin 80 mg PO DAILY blood sugar diagnostic As directed clonidine HCl 0.1 mg PO BID dapagliflozin propanediol (Farxiga) 10 mg PO DAILY diphenhydramine HCl (Banophen) mg PO docusate sodium 100 mg PO BID PRN duloxetine 120 mg PO QAM fluticasone propion-salmeterol 100-50 mcg/dose ea inhalation gabapentin 100 mg PO TID hydrocortisone 2.5% appl topical insulin glargine (Lantus Solostar U-100 Insulin) 10 units subcut QPM ipratropium-albuterol 0.5 mg-3 mg(2.5 mg base)/3 mL mL inhalation ipratropium-albuterol 20-100 mcg/actuation 1 puff PO QID lancets As directed lancets As directed latanoprost 0.005% drps ophthalmic (eye) linagliptin (Tradjenta) 5 mg PO DAILY cdvnsc-akhbfmvy-isgymii 24,000-76,000 -120,000 unit 1 cap PO TID loratadine 10 mg PO DAILY PRN lorazepam 1 mg PO BID meclizine mg PO montelukast 10 mg PO BEDTIME nifedipine ER 30 mg PO DAILY ondansetron 4 mg PO Q8H PRN polyethylene glycol 3350 grams PO [procrit pt states she receives it weekly ] quetiapine 200 mg PO BEDTIME rabeprazole 20 mg PO DAILY ropinirole 0.25 mg PO BEDTIME sodium chloride 0.65% (Deep Sea Nasal) sprays intranasal Q2H PRN triamcinolone acetonide 0.1% appl topical warfarin 2.5 mg See Protocol PO DAILY Nursing Note INR 1.6-?? out of therapeutic range of 2-3 Medications and supplements reviewed Patient status: pt went to [facility] on 09/17/23- pseudo seizure, she states not feeling well, does not want pcp called pt states limited or no vision left eye, and tunnel visiton right eye- pt with hx visual impairement pt denies missed dose Medications or supplements: no changes Diet: same Denies any signs and symptoms of bleeding or clotting or unusual bruising Bleeding, bruising, clotting discussed Nutritional guidance given: no greens for 3 days, eat reds to raise Dose: pt states she took 5mg yesterday, increase today to 5mg , increase weekly dosing 2.5mg x 2, 3.75mg x 5 F/U INR Date : wednesday09/27/23? Patient verbalizing understanding of instructions given. 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
[2023-09-21 14:13] LABS: Prothrombin Time Whole Bld POC 19.2 sec (11.1-13.5); ~PT, ~INR - Anti Coag Clinic 1.6 (0.9-1.1)
== END 2023-09-21 14:33 | disposition home or self-care (01) ==
LOC: HO.ACS 13:53
PROVIDERS: PCP Internal Medicine; Visit Provider Internal Medicine
DX: Z79.01 Long term (current) use of anticoagulants (principal)

== ENCOUNTER → 2023-09-21 13:53 | Outpatient (BNVA) | payer OTHER, SELFPAY | PROVIDERS: PCP Internal Medicine; Visit Provider Internal Medicine | DX: Z86.718 Personal history of other venous thrombosis and embolism (principal); Z51.81 Encounter for therapeutic drug level monitoring; Z79.01 Long term (current) use of anticoagulants | CPT/HCPCS: 85610; 99211 ==

== ENCOUNTER 2023-09-27 09:11 | Outpatient (AMB) | payer OTHER, SELFPAY ==
[2023-09-27 09:24] LABS: Prothrombin Time Whole Bld POC 17.9 sec (11.1-13.5); ~PT, ~INR - Anti Coag Clinic 1.5 (0.9-1.1)
--- NOTE | 2023-09-27 09:39 | MHC.OFFVISCO ---
Intake Intake Visit Reasons: Anticoagulation Allergies codeine [Codeine] Allergy (Severe, Verified 09/27/23 09:15) DIFFICULTY BREATHING Penicillins Allergy (Severe, Verified 09/27/23 09:15) RASH penicillin V Allergy (Intermediate, Verified 09/27/23 09:15) RASH tramadol [Ultram] Allergy (Unknown, Verified 09/27/23 09:15) hallucinations Shellfish Allergy (Severe, Uncoded 09/27/23 09:15) THROAT SWELLING Contrast Allergy PreMed Pack Allergy (Unknown, Uncoded 09/27/23 09:15) TREAT WITH BENADRYL ferrlecit Adverse Reaction (Intermediate, Uncoded 09/27/23 09:15) Rash Medication List - Last Reconciled 09/27/23 by Tangela Sam RN atorvastatin 80 mg PO DAILY blood sugar diagnostic As directed clonidine HCl 0.1 mg PO BID dapagliflozin propanediol (Farxiga) 10 mg PO DAILY diphenhydramine HCl (Banophen) mg PO docusate sodium 100 mg PO BID PRN duloxetine 120 mg PO QAM fluticasone propion-salmeterol 100-50 mcg/dose ea inhalation gabapentin 100 mg PO TID hydrocortisone 2.5% appl topical insulin glargine (Lantus Solostar U-100 Insulin) 10 units subcut QPM ipratropium-albuterol 0.5 mg-3 mg(2.5 mg base)/3 mL mL inhalation ipratropium-albuterol 20-100 mcg/actuation 1 puff PO QID lancets As directed lancets As directed latanoprost 0.005% drps ophthalmic (eye) linagliptin (Tradjenta) 5 mg PO DAILY phtgbg-spzxfvcm-aydkkto 24,000-76,000 -120,000 unit 1 cap PO TID loratadine 10 mg PO DAILY PRN lorazepam 1 mg PO BID meclizine mg PO montelukast 10 mg PO BEDTIME nifedipine ER 30 mg PO DAILY ondansetron 4 mg PO Q8H PRN polyethylene glycol 3350 grams PO [procrit pt states she receives it weekly ] quetiapine 200 mg PO BEDTIME rabeprazole 20 mg PO DAILY ropinirole 0.25 mg PO BEDTIME sodium chloride 0.65% (Deep Sea Nasal) sprays intranasal Q2H PRN triamcinolone acetonide 0.1% appl topical warfarin 2.5 mg See Protocol PO DAILY Nursing Note INR 1.5 out of therapeutic range Medications and supplements reviewed Patient status: States that nothing has changed and she had psuedo seizures and that no one can help her, she was enc to talk with PCP and also ask her in checking her nutritional lab values such as b 12 levels and electrolytes etc Medications or supplements: no changes Diet: enc to eat healthy, pt states she doesnt like to eat meat - but will eat eggs Denies any signs and symptoms of bleeding or clotting or unusual bruising Bleeding, bruising, clotting discussed Nutritional guidance given: eat a mix of fruits and vegetables you can tolerate plus have protein like eggs in her diet Dose: increase to 5mg today then increase to 26.5mg weekly 3.75mg daily (? this wednesday dose) F/U INR Date : 10/01/23 ?? Patient verbalizing understanding of instructions given. Call placed to PCP office spoke with attendance secretary and she will have nurse call [facility] 1030 JANNREJI RN FROM PCP OFFICE STATED SHE WILL NOTIFY MD OF PT STATUS AND WILL ADDRESS NUTRITIONAL LABS SUCH B 12 AND ELECTROLYTES WITH MD TO SEE IF THESE NEED ADJUSTMENTS FOR BETTER HEALTH FOR THE PT Coding Level of Care Code Est Patient Level 1 Diagnoses Current use of anticoagulant therapy Z79.01 Assessment & Plan Assessment & Plan (1) Current use of anticoagulant therapy: Code(s): Z79.01 - residential (current) use of anticoagulants Category: Medical
== END 2023-09-27 09:45 | disposition home or self-care (01) ==
LOC: HO.ACS 09:11
PROVIDERS: PCP Internal Medicine; Visit Provider Internal Medicine
DX: Z79.01 Long term (current) use of anticoagulants (principal)

== ENCOUNTER → 2023-09-27 09:11 | Outpatient (BNVA) | payer OTHER, SELFPAY | PROVIDERS: PCP Internal Medicine; Visit Provider Internal Medicine | DX: Z86.718 Personal history of other venous thrombosis and embolism (principal); Z79.01 Long term (current) use of anticoagulants; Z51.81 Encounter for therapeutic drug level monitoring | CPT/HCPCS: 85610; 99211 ==

== ENCOUNTER 2023-10-01 09:16 | Outpatient (AMB) | payer OTHER, SELFPAY ==
[2023-10-01 09:34] LABS: Prothrombin Time Whole Bld POC 27.9 sec (11.1-13.5); ~PT, ~INR - Anti Coag Clinic 2.3 (0.9-1.1)
--- NOTE | 2023-10-01 09:34 | MHC.OFFVISCO ---
Intake Intake Visit Reasons: Anticoagulation Allergies codeine [Codeine] Allergy (Severe, Verified 10/01/23 09:19) DIFFICULTY BREATHING Penicillins Allergy (Severe, Verified 10/01/23 09:19) RASH penicillin V Allergy (Intermediate, Verified 10/01/23 09:19) RASH tramadol [Ultram] Allergy (Unknown, Verified 10/01/23 09:19) hallucinations Shellfish Allergy (Severe, Uncoded 10/01/23 09:19) THROAT SWELLING Contrast Allergy PreMed Pack Allergy (Unknown, Uncoded 10/01/23 09:19) TREAT WITH BENADRYL ferrlecit Adverse Reaction (Intermediate, Uncoded 10/01/23 09:19) Rash Medication List - Last Reconciled 10/01/23 by Tonia Angeles RN atorvastatin 80 mg PO DAILY blood sugar diagnostic As directed clonidine HCl 0.1 mg PO BID dapagliflozin propanediol (Farxiga) 10 mg PO DAILY diphenhydramine HCl (Banophen) mg PO duloxetine 120 mg PO QAM fluticasone propion-salmeterol 100-50 mcg/dose ea inhalation gabapentin 100 mg PO TID hydrocortisone 2.5% appl topical insulin glargine (Lantus Solostar U-100 Insulin) 10 units subcut QPM ipratropium-albuterol 0.5 mg-3 mg(2.5 mg base)/3 mL mL inhalation ipratropium-albuterol 20-100 mcg/actuation 1 puff PO QID lancets As directed lancets As directed latanoprost 0.005% drps ophthalmic (eye) linagliptin (Tradjenta) 5 mg PO DAILY [id number]-zvremzoi-xzpgcys 24,000-76,000 -120,000 unit 1 cap PO TID loratadine 10 mg PO DAILY PRN lorazepam 1 mg PO BID meclizine mg PO montelukast 10 mg PO BEDTIME nifedipine ER 30 mg PO DAILY ondansetron 4 mg PO Q8H PRN polyethylene glycol 3350 grams PO [procrit pt states she receives it weekly ] quetiapine 200 mg PO BEDTIME rabeprazole 20 mg PO DAILY ropinirole 0.25 mg PO BEDTIME sodium chloride 0.65% (Deep Sea Nasal) sprays intranasal Q2H PRN triamcinolone acetonide 0.1% appl topical warfarin 2.5 mg See Protocol PO DAILY Nursing Note INR: 2.3 in therapeutic range of 2-3 Medications and supplements reviewed: no changes No changes in health, diet, medications, or supplements, Denies any signs and symptoms of bleeding or bruising or clotting. Bleeding, bruising, clotting discussed Nutritional guidance given to balance reds and greens. Food list reviewed with pt. 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
== END 2023-10-01 09:38 | disposition home or self-care (01) ==
LOC: HO.ACS 09:16
PROVIDERS: PCP Internal Medicine; Visit Provider Internal Medicine
DX: Z79.01 Long term (current) use of anticoagulants (principal)

== ENCOUNTER → 2023-10-01 09:16 | Outpatient (BNVA) | payer OTHER, SELFPAY | PROVIDERS: PCP Internal Medicine; Visit Provider Internal Medicine | DX: Z86.718 Personal history of other venous thrombosis and embolism (principal); Z79.01 Long term (current) use of anticoagulants; Z51.81 Encounter for therapeutic drug level monitoring | CPT/HCPCS: 85610; 99211 ==

== ENCOUNTER 2023-10-19 08:28 | Outpatient (AMB) | payer OTHER, SELFPAY ==
--- NOTE | 2023-10-19 08:58 | MHC.OFFVISCO ---
Intake Intake Visit Reasons: Anticoagulation Allergies codeine [Codeine] Allergy (Severe, Verified 10/19/23 08:48) DIFFICULTY BREATHING Penicillins Allergy (Severe, Verified 10/19/23 08:48) RASH penicillin V Allergy (Intermediate, Verified 10/19/23 08:48) RASH tramadol [Ultram] Allergy (Unknown, Verified 10/19/23 08:48) hallucinations Shellfish Allergy (Severe, Uncoded 10/19/23 08:48) THROAT SWELLING Contrast Allergy PreMed Pack Allergy (Unknown, Uncoded 10/19/23 08:48) TREAT WITH BENADRYL ferrlecit Adverse Reaction (Intermediate, Uncoded 10/19/23 08:48) Rash Medication List - Last Reconciled 10/19/23 by Tonia nAgeles RN atorvastatin 80 mg PO DAILY blood sugar diagnostic As directed clonidine HCl 0.1 mg PO BID dapagliflozin propanediol (Farxiga) 10 mg PO DAILY diphenhydramine HCl (Banophen) mg PO duloxetine 120 mg PO QAM fluticasone propion-salmeterol 100-50 mcg/dose ea inhalation gabapentin 100 mg PO TID hydrocortisone 2.5% appl topical insulin glargine (Lantus Solostar U-100 Insulin) 10 units subcut QPM ipratropium-albuterol 0.5 mg-3 mg(2.5 mg base)/3 mL mL inhalation ipratropium-albuterol 20-100 mcg/actuation 1 puff PO QID lancets As directed lancets As directed latanoprost 0.005% drps ophthalmic (eye) linagliptin (Tradjenta) 5 mg PO DAILY bqpjll-qioaqkdv-drvyphw 24,000-76,000 -120,000 unit 1 cap PO TID loratadine 10 mg PO DAILY PRN lorazepam 1 mg PO BID meclizine mg PO montelukast 10 mg PO BEDTIME nifedipine ER 30 mg PO DAILY ondansetron 4 mg PO Q8H PRN polyethylene glycol 3350 grams PO [procrit pt states she receives it weekly ] quetiapine 200 mg PO BEDTIME rabeprazole 20 mg PO DAILY ropinirole 0.25 mg PO BEDTIME sodium chloride 0.65% (Deep Sea Nasal) sprays intranasal Q2H PRN triamcinolone acetonide 0.1% appl topical warfarin 2.5 mg See Protocol PO DAILY Nursing Note INR: 2.1 in therapeutic range of 2-3 Medications and supplements reviewed No changes in health, diet, medications, or supplements, Denies any signs and symptoms of bleeding or bruising or clotting. Bleeding, bruising, clotting discussed Nutritional guidance given to avoid greens today and to have a serving of foods that raise the INR like grapes, melons, strawberries, angie etc. 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
[2023-10-19 09:01] LABS: Prothrombin Time Whole Bld POC 25.5 sec (11.1-13.5); ~PT, ~INR - Anti Coag Clinic 2.1 (0.9-1.1)
== END 2023-10-19 09:01 | disposition home or self-care (01) ==
LOC: HO.ACS 08:28
PROVIDERS: PCP Internal Medicine; Visit Provider Internal Medicine
DX: Z79.01 Long term (current) use of anticoagulants (principal)

== ENCOUNTER → 2023-10-19 08:28 | Outpatient (BNVA) | payer OTHER, SELFPAY | PROVIDERS: PCP Internal Medicine; Visit Provider Internal Medicine | DX: Z86.718 Personal history of other venous thrombosis and embolism (principal); Z79.01 Long term (current) use of anticoagulants; Z51.81 Encounter for therapeutic drug level monitoring | CPT/HCPCS: 85610; 99211 ==

== ENCOUNTER → 2023-11-02 08:56 | Outpatient (BNVA) | payer OTHER, SELFPAY | PROVIDERS: PCP Internal Medicine; Visit Provider Internal Medicine | DX: Z86.718 Personal history of other venous thrombosis and embolism (principal); Z79.01 Long term (current) use of anticoagulants; Z51.81 Encounter for therapeutic drug level monitoring | CPT/HCPCS: 85610; 99211 ==

== ENCOUNTER 2023-11-16 08:38 | Outpatient (AMB) | payer OTHER, SELFPAY ==
--- NOTE | 2023-11-16 09:15 | MHC.OFFVISCO ---
Intake Intake Visit Reasons: Anticoagulation Allergies codeine [Codeine] Allergy (Severe, Verified 11/16/23 08:53) DIFFICULTY BREATHING Penicillins Allergy (Severe, Verified 11/16/23 08:53) RASH penicillin V Allergy (Intermediate, Verified 11/16/23 08:53) RASH tramadol [Ultram] Allergy (Unknown, Verified 11/16/23 08:53) hallucinations Shellfish Allergy (Severe, Uncoded 11/16/23 08:53) THROAT SWELLING Contrast Allergy PreMed Pack Allergy (Unknown, Uncoded 11/16/23 08:53) TREAT WITH BENADRYL ferrlecit Adverse Reaction (Intermediate, Uncoded 11/16/23 08:53) Rash Medication List - Last Reconciled 11/16/23 by Tonia Angeles RN atorvastatin 80 mg PO DAILY blood sugar diagnostic As directed clonidine HCl 0.1 mg PO BID dapagliflozin propanediol (Farxiga) 10 mg PO DAILY diphenhydramine HCl (Banophen) mg PO duloxetine 120 mg PO QAM fluticasone propion-salmeterol 100-50 mcg/dose ea inhalation gabapentin 100 mg PO TID hydrocortisone 2.5% appl topical insulin glargine (Lantus Solostar U-100 Insulin) 10 units subcut QPM ipratropium-albuterol 0.5 mg-3 mg(2.5 mg base)/3 mL mL inhalation ipratropium-albuterol 20-100 mcg/actuation 1 puff PO QID lancets As directed lancets As directed latanoprost 0.005% drps ophthalmic (eye) linagliptin (Tradjenta) 5 mg PO DAILY nyclsf-gagcmfba-zksksir 24,000-76,000 -120,000 unit 1 cap PO TID loratadine 10 mg PO DAILY PRN lorazepam 1 mg PO BID meclizine mg PO montelukast 10 mg PO BEDTIME nifedipine ER 30 mg PO DAILY ondansetron 4 mg PO Q8H PRN polyethylene glycol 3350 grams PO [procrit pt states she receives it weekly ] quetiapine 200 mg PO BEDTIME rabeprazole 20 mg PO DAILY ropinirole 0.25 mg PO BEDTIME sodium chloride 0.65% (Deep Sea Nasal) sprays intranasal Q2H PRN triamcinolone acetonide 0.1% appl topical warfarin 2.5 mg See Protocol PO DAILY Nursing Note INR: 1.2? out of therapeutic range of 2-3 Medications and supplements reviewed: no changes Patient status: usual health today but pt states she had a day last week with N&V and missed a dose of warfarin. Medications or supplements: no changes Diet: usual diet but had a day last week with N&V Denies any signs and symptoms of bleeding or clotting or unusual bruising Bleeding, bruising, clotting discussed Nutritional guidance given: to avoid greens today and tomorrow and have a serving of foods that raise the INR today and tomorrow. Food list reviewed with pt. Dose: increase dose today and tomorrow to 5mg (usual 3.75mg) and then resume usual dose of 3.75mg daily F/U INR Date : 1 week?? Patient verbalizing understanding of instructions given. T/C to Dr Ruiz's office to report critical value. Spoke to Alondra. INR result given to her with dosing plan and retest date. 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
[2023-11-16 09:35] LABS: Prothrombin Time Whole Bld POC 14.5 sec (11.1-13.5); ~PT, ~INR - Anti Coag Clinic 1.2 (0.9-1.1)
== END 2023-11-16 10:11 | disposition home or self-care (01) ==
LOC: HO.ACS 08:38
PROVIDERS: PCP Internal Medicine; Visit Provider Internal Medicine
DX: Z79.01 Long term (current) use of anticoagulants (principal)

== ENCOUNTER → 2023-11-16 08:38 | Outpatient (BNVA) | payer OTHER, SELFPAY | PROVIDERS: PCP Internal Medicine; Visit Provider Internal Medicine | DX: Z86.718 Personal history of other venous thrombosis and embolism (principal); Z51.81 Encounter for therapeutic drug level monitoring; Z79.01 Long term (current) use of anticoagulants | CPT/HCPCS: 85610; 99212 ==

== ENCOUNTER 2023-11-23 08:43 | Outpatient (AMB) | payer OTHER, SELFPAY ==
[2023-11-23 09:36] LABS: Prothrombin Time Whole Bld POC 27.3 sec (11.1-13.5); ~PT, ~INR - Anti Coag Clinic 2.3 (0.9-1.1)
--- NOTE | 2023-11-23 09:47 | MHC.OFFVISCO ---
Intake Intake Visit Reasons: Anticoagulation Allergies codeine [Codeine] Allergy (Severe, Verified 11/23/23 09:31) DIFFICULTY BREATHING Penicillins Allergy (Severe, Verified 11/23/23 09:31) RASH penicillin V Allergy (Intermediate, Verified 11/23/23 09:31) RASH tramadol [Ultram] Allergy (Unknown, Verified 11/23/23 09:31) hallucinations Shellfish Allergy (Severe, Uncoded 11/23/23 09:31) THROAT SWELLING Contrast Allergy PreMed Pack Allergy (Unknown, Uncoded 11/23/23 09:31) TREAT WITH BENADRYL ferrlecit Adverse Reaction (Intermediate, Uncoded 11/23/23 09:31) Rash Medication List - Last Reconciled 11/23/23 by Tangela Sam RN atorvastatin 80 mg PO DAILY blood sugar diagnostic As directed clonidine HCl 0.1 mg PO BID dapagliflozin propanediol (Farxiga) 10 mg PO DAILY diphenhydramine HCl (Banophen) mg PO duloxetine 120 mg PO QAM fluticasone propion-salmeterol 100-50 mcg/dose ea inhalation gabapentin 100 mg PO TID hydrocortisone 2.5% appl topical insulin glargine (Lantus Solostar U-100 Insulin) 10 units subcut QPM ipratropium-albuterol 0.5 mg-3 mg(2.5 mg base)/3 mL mL inhalation ipratropium-albuterol 20-100 mcg/actuation 1 puff PO QID lancets As directed lancets As directed latanoprost 0.005% drps ophthalmic (eye) linagliptin (Tradjenta) 5 mg PO DAILY yjkjet-zokejuum-iefepyb 24,000-76,000 -120,000 unit 1 cap PO TID loratadine 10 mg PO DAILY PRN lorazepam 1 mg PO BID meclizine mg PO montelukast 10 mg PO BEDTIME nifedipine ER 30 mg PO DAILY ondansetron 4 mg PO Q8H PRN polyethylene glycol 3350 grams PO [procrit pt states she receives it weekly ] quetiapine 200 mg PO BEDTIME rabeprazole 20 mg PO DAILY ropinirole 0.25 mg PO BEDTIME sodium chloride 0.65% (Deep Sea Nasal) sprays intranasal Q2H PRN triamcinolone acetonide 0.1% appl topical warfarin 2.5 mg See Protocol PO DAILY Nursing Note INR: 2.3 in therapeutic range Medications and supplements reviewed- GAVE MED PRINT OUT FOR HER TO UPDATE AND BRING BACK No changes in health, diet, medications, or supplements, Denies any signs and symptoms of bleeding or bruising or clotting. 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
== END 2023-11-23 09:51 | disposition home or self-care (01) ==
LOC: HO.ACS 08:43
PROVIDERS: PCP Internal Medicine; Visit Provider Internal Medicine
DX: Z79.01 Long term (current) use of anticoagulants (principal)

== ENCOUNTER → 2023-11-23 08:43 | Outpatient (BNVA) | payer OTHER, SELFPAY | PROVIDERS: PCP Internal Medicine; Visit Provider Internal Medicine | DX: Z86.718 Personal history of other venous thrombosis and embolism (principal); Z79.01 Long term (current) use of anticoagulants; Z51.81 Encounter for therapeutic drug level monitoring | CPT/HCPCS: 85610; 99211 ==

== ENCOUNTER 2023-12-07 08:49 | Outpatient (AMB) | payer OTHER, SELFPAY ==
[2023-12-07 09:06] LABS: Prothrombin Time Whole Bld POC 17.5 sec (11.1-13.5); ~PT, ~INR - Anti Coag Clinic 1.5 (0.9-1.1)
--- NOTE | 2023-12-07 09:17 | MHC.OFFVISCO ---
Intake Intake Visit Reasons: Anticoagulation Allergies codeine [Codeine] Allergy (Severe, Verified 12/07/23 09:01) DIFFICULTY BREATHING Penicillins Allergy (Severe, Verified 12/07/23 09:01) RASH penicillin V Allergy (Intermediate, Verified 12/07/23 09:01) RASH tramadol [Ultram] Allergy (Unknown, Verified 12/07/23 09:01) hallucinations Shellfish Allergy (Severe, Uncoded 12/07/23 09:01) THROAT SWELLING Contrast Allergy PreMed Pack Allergy (Unknown, Uncoded 12/07/23 09:01) TREAT WITH BENADRYL ferrlecit Adverse Reaction (Intermediate, Uncoded 12/07/23 09:01) Rash Medication List - Last Reconciled 12/07/23 by Tangela Sam RN atorvastatin 80 mg PO DAILY blood sugar diagnostic As directed clonidine HCl 0.1 mg PO BID dapagliflozin propanediol (Farxiga) 10 mg PO DAILY diphenhydramine HCl (Banophen) mg PO duloxetine 120 mg PO QAM fluticasone propion-salmeterol 100-50 mcg/dose ea inhalation gabapentin 100 mg PO TID hydrocortisone 2.5% appl topical insulin glargine (Lantus Solostar U-100 Insulin) 10 units subcut QPM ipratropium-albuterol 0.5 mg-3 mg(2.5 mg base)/3 mL mL inhalation ipratropium-albuterol 20-100 mcg/actuation 1 puff PO QID lancets As directed lancets As directed latanoprost 0.005% drps ophthalmic (eye) linagliptin (Tradjenta) 5 mg PO DAILY hwmkee-zodytxjz-woyvrko 24,000-76,000 -120,000 unit 1 cap PO TID loratadine 10 mg PO DAILY PRN lorazepam 1 mg PO BID meclizine mg PO montelukast 10 mg PO BEDTIME nifedipine ER 30 mg PO DAILY ondansetron 4 mg PO Q8H PRN polyethylene glycol 3350 grams PO [procrit pt states she receives it weekly ] quetiapine 200 mg PO BEDTIME rabeprazole 20 mg PO DAILY ropinirole 0.25 mg PO BEDTIME sodium chloride 0.65% (Deep Sea Nasal) sprays intranasal Q2H PRN triamcinolone acetonide 0.1% appl topical warfarin 2.5 mg See Protocol PO DAILY Nursing Note INR 1.5 out of therapeutic range Medications and supplements reviewed Patient status: EXTREMELY CONSTIPATED X 3 WEEKS - ABLE TO PASS GAS AND SMALL AMTS OF STOOL, SHE PLANS TO TRY A GLYCERIN SUPP AND SIMETHICONE. SHE HAS SOME RECTAL BLEEDING WITH STRAINING Medications or supplements: NO OTHER CHANGES Diet: FAIR Denies any signs and symptoms of bleeding or clotting or unusual bruising Bleeding, bruising, clotting discussed Nutritional guidance given: AVOID ALL GREENS UNTIL INR GREATER THAN 2.0 Dose: 5MG TODAY 3.75MG ALL OTHER DAYS F/U INR THIS WEDNESDAY F/U INR Date : 12/10/23 IT WAS EXPLAINED THAT PROLONGED CONSTIPATION CAN BE DANGEROUS AND TO GO TO THE ER, SHE STATED SHE IS GOING TO TRY THE SUPP AND GAS EX TO SEE IF IT HELPS FIRST PCP NOTIFIED SPOKE WITH NOHEMI TO CONVEY MSG TO MEDICAL TEAM. ?? Patient verbalizing understanding of instructions given. 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
== END 2023-12-07 09:23 | disposition home or self-care (01) ==
LOC: HO.ACS 08:49
PROVIDERS: PCP Internal Medicine; Visit Provider Internal Medicine
DX: Z79.01 Long term (current) use of anticoagulants (principal)

== ENCOUNTER → 2023-12-07 08:49 | Outpatient (BNVA) | payer OTHER, SELFPAY | PROVIDERS: PCP Internal Medicine; Visit Provider Internal Medicine | DX: Z86.718 Personal history of other venous thrombosis and embolism (principal); Z79.01 Long term (current) use of anticoagulants; Z51.81 Encounter for therapeutic drug level monitoring | CPT/HCPCS: 85610; 99212 ==

== ENCOUNTER 2023-12-17 08:35 | Outpatient (AMB) | payer OTHER, SELFPAY ==
--- NOTE | 2023-12-17 09:31 | MHC.OFFVISCO ---
Intake Intake Visit Reasons: Anticoagulation Allergies codeine [Codeine] Allergy (Severe, Verified 12/17/23 09:16) DIFFICULTY BREATHING Penicillins Allergy (Severe, Verified 12/17/23 09:16) RASH penicillin V Allergy (Intermediate, Verified 12/17/23 09:16) RASH tramadol [Ultram] Allergy (Unknown, Verified 12/17/23 09:16) hallucinations Shellfish Allergy (Severe, Uncoded 12/17/23 09:16) THROAT SWELLING Contrast Allergy PreMed Pack Allergy (Unknown, Uncoded 12/17/23 09:16) TREAT WITH BENADRYL ferrlecit Adverse Reaction (Intermediate, Uncoded 12/17/23 09:16) Rash Nursing Note INR: 1.7 OUT therapeutic range- She is bloated and constipated and trying otc products to help - 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 Bleeding, bruising, clotting discussed Nutritional guidance given- avoid greens today Dose: 5mg x 1 day/ 2.5mg x 6 days F/U INR: 1 week Patient verbalizes understanding of instructions given Coding Level of Care Code Est Patient Level 1 Diagnoses Current use of anticoagulant therapy Z79.01 Results AMB INR Fingerstick AMB INR Fingerstick 1.7 Last Edit by Tangela Sma RN on 12/17/23 09:24 MANUAL ENTRY Assessment & Plan Assessment & Plan (1) Current use of anticoagulant therapy: Code(s): Z79.01 - [facility] (current) use of anticoagulants Category: Medical
[2023-12-17 09:57] LABS: Prothrombin Time Whole Bld POC 20.8 sec (11.1-13.5); ~PT, ~INR - Anti Coag Clinic 1.7 (0.9-1.1)
== END 2023-12-17 09:34 | disposition home or self-care (01) ==
LOC: HO.ACS 08:35
PROVIDERS: PCP Internal Medicine; Visit Provider Internal Medicine
DX: Z79.01 Long term (current) use of anticoagulants (principal)

== ENCOUNTER → 2023-12-17 08:35 | Outpatient (BNVA) | payer OTHER, SELFPAY | PROVIDERS: PCP Internal Medicine; Visit Provider Internal Medicine | DX: Z86.718 Personal history of other venous thrombosis and embolism (principal); Z79.01 Long term (current) use of anticoagulants; Z51.81 Encounter for therapeutic drug level monitoring | CPT/HCPCS: 85610; 99211 ==

== ENCOUNTER 2023-12-23 08:39 | Outpatient (AMB) | payer OTHER, SELFPAY ==
[2023-12-23 08:57] LABS: Prothrombin Time Whole Bld POC 24.3 sec (11.1-13.5)
--- NOTE | 2023-12-23 09:12 | MHC.OFFVISCO ---
Intake Intake Visit Reasons: Anticoagulation Allergies codeine [Codeine] Allergy (Severe, Verified 12/23/23 08:52) DIFFICULTY BREATHING Penicillins Allergy (Severe, Verified 12/23/23 08:52) RASH penicillin V Allergy (Intermediate, Verified 12/23/23 08:52) RASH tramadol [Ultram] Allergy (Unknown, Verified 12/23/23 08:52) hallucinations Shellfish Allergy (Severe, Uncoded 12/23/23 08:52) THROAT SWELLING Contrast Allergy PreMed Pack Allergy (Unknown, Uncoded 12/23/23 08:52) TREAT WITH BENADRYL ferrlecit Adverse Reaction (Intermediate, Uncoded 12/23/23 08:52) Rash Medication List - Last Reconciled 12/23/23 by Tonia Angeles RN atorvastatin 80 mg PO DAILY blood sugar diagnostic As directed clonidine HCl 0.1 mg PO BID dapagliflozin propanediol (Farxiga) 10 mg PO DAILY diphenhydramine HCl (Banophen) mg PO duloxetine 120 mg PO QAM fluticasone propion-salmeterol 100-50 mcg/dose ea inhalation gabapentin 100 mg PO TID hydrocortisone 2.5% appl topical insulin glargine (Lantus Solostar U-100 Insulin) 10 units subcut QPM ipratropium-albuterol 0.5 mg-3 mg(2.5 mg base)/3 mL mL inhalation ipratropium-albuterol 20-100 mcg/actuation 1 puff PO QID lancets As directed lancets As directed latanoprost 0.005% drps ophthalmic (eye) linagliptin (Tradjenta) 5 mg PO DAILY lqptiw-aghsgrnr-oqkfvph 24,000-76,000 -120,000 unit 1 cap PO TID loratadine 10 mg PO DAILY PRN lorazepam 1 mg PO BID meclizine mg PO montelukast 10 mg PO BEDTIME nifedipine ER 30 mg PO DAILY ondansetron 4 mg PO Q8H PRN polyethylene glycol 3350 grams PO [procrit pt states she receives it weekly ] quetiapine 200 mg PO BEDTIME rabeprazole 20 mg PO DAILY ropinirole 0.25 mg PO BEDTIME sodium chloride 0.65% (Deep Sea Nasal) sprays intranasal Q2H PRN triamcinolone acetonide 0.1% appl topical warfarin 2.5 mg See Protocol PO DAILY Nursing Note INR: 2.0 in therapeutic range of 2-3 Pt states she will be having a port a cath inserted at [facility] on 12/31/23. She states her instructions are to hold the warfarin for 3 days with LD on 12/26. Staes no lovenox bridge required. Medications and supplements reviewed No changes in health, diet, medications, or supplements, Denies any signs and symptoms of bleeding or bruising or clotting. Bleeding, bruising, clotting discussed Nutritional guidance given to avoid greens when restarting warfarin Dose: continue usual dose of 3.75mg X 7 days. After the procedure on 12/30, when MD says it is ok to restart warfarin, either on that day or the next, to start 5mg X 2 days then 3.75mg daily until f/u appt. F/U INR: Wednesday12/27/23 Patient verbalizes understanding of instructions given Coding Level of Care Code Est Patient Level 1 Diagnoses Current use of anticoagulant therapy Z79.01 Assessment & Plan Assessment & Plan (1) Current use of anticoagulant therapy: Code(s): Z79.01 - correction (current) use of anticoagulants Category: Medical
== END 2023-12-23 09:20 | disposition home or self-care (01) ==
LOC: HO.ACS 08:39
PROVIDERS: PCP Internal Medicine; Visit Provider Internal Medicine
DX: Z79.01 Long term (current) use of anticoagulants (principal)

== ENCOUNTER → 2023-12-23 08:39 | Outpatient (BNVA) | payer OTHER, SELFPAY | PROVIDERS: PCP Internal Medicine; Visit Provider Internal Medicine | DX: Z86.718 Personal history of other venous thrombosis and embolism (principal); Z79.01 Long term (current) use of anticoagulants; Z51.81 Encounter for therapeutic drug level monitoring | CPT/HCPCS: 85610; 99211 ==

== ENCOUNTER 2024-01-04 10:27 | Outpatient (AMB) | payer OTHER, SELFPAY ==
[2024-01-04 10:56] LABS: Prothrombin Time Whole Bld POC 18.5 sec (11.1-13.5); ~PT, ~INR - Anti Coag Clinic 1.5 (0.9-1.1)
--- NOTE | 2024-01-04 11:08 | MHC.OFFVISCO ---
Intake Intake Visit Reasons: Anticoagulation Allergies codeine [Codeine] Allergy (Severe, Verified 01/04/24 10:52) DIFFICULTY BREATHING Penicillins Allergy (Severe, Verified 01/04/24 10:52) RASH penicillin V Allergy (Intermediate, Verified 01/04/24 10:52) RASH tramadol [Ultram] Allergy (Unknown, Verified 01/04/24 10:52) hallucinations Shellfish Allergy (Severe, Uncoded 01/04/24 10:52) THROAT SWELLING Contrast Allergy PreMed Pack Allergy (Unknown, Uncoded 01/04/24 10:52) TREAT WITH BENADRYL ferrlecit Adverse Reaction (Intermediate, Uncoded 01/04/24 10:52) Rash Medication List - Last Reconciled 01/04/24 by Tonia Angeles RN atorvastatin 80 mg PO DAILY blood sugar diagnostic As directed clonidine HCl 0.1 mg PO BID dapagliflozin propanediol (Farxiga) 10 mg PO DAILY diphenhydramine HCl (Banophen) mg PO duloxetine 120 mg PO QAM fluticasone propion-salmeterol 100-50 mcg/dose ea inhalation gabapentin 100 mg PO TID hydrocortisone 2.5% appl topical insulin glargine (Lantus Solostar U-100 Insulin) 10 units subcut QPM ipratropium-albuterol 0.5 mg-3 mg(2.5 mg base)/3 mL mL inhalation ipratropium-albuterol 20-100 mcg/actuation 1 puff PO QID lancets As directed lancets As directed latanoprost 0.005% drps ophthalmic (eye) linagliptin (Tradjenta) 5 mg PO DAILY ncuuyj-cugkowjb-gxhpgtk 24,000-76,000 -120,000 unit 1 cap PO TID loratadine 10 mg PO DAILY PRN lorazepam 1 mg PO BID meclizine mg PO montelukast 10 mg PO BEDTIME nifedipine ER 30 mg PO DAILY ondansetron 4 mg PO Q8H PRN polyethylene glycol 3350 grams PO [procrit pt states she receives it weekly ] quetiapine 200 mg PO BEDTIME rabeprazole 20 mg PO DAILY ropinirole 0.25 mg PO BEDTIME sodium chloride 0.65% (Deep Sea Nasal) sprays intranasal Q2H PRN triamcinolone acetonide 0.1% appl topical warfarin 2.5 mg See Protocol PO DAILY Nursing Note Pt to [facility] with DIRECTOR PROCESS IMPROVEMENT INR 1.5?out of therapeutic range of 2-3 Medications and supplements reviewed Patient status: S/P linh cath insertion R chest at [facility] 12/31/23 R chest site clean and dry, no redness or swelling, surgical glue intact Pt c/o discomfort s/p 4 days from procedure Medications or supplements: no change Diet: appetite improving per pt Denies any signs and symptoms of bleeding or clotting or unusual bruising Bleeding, bruising, clotting discussed Nutritional guidance given: no greens until INR therapeutic, food list reviewed and pt to have a carrot and beet smoothie today Dose: 5mg (3.75mg) today and 5mg (3.75) tomorrow, both days are increased from usual dose, then 3.75mg on the 3rd day () then to return for testing on F/U INR Date : 01/07/24?? Patient verbalizing understanding of instructions given. 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
== END 2024-01-04 11:28 | disposition home or self-care (01) ==
LOC: HO.ACS 10:27
PROVIDERS: PCP Internal Medicine; Visit Provider Internal Medicine
DX: Z79.01 Long term (current) use of anticoagulants (principal)

== ENCOUNTER → 2024-01-04 10:27 | Outpatient (BNVA) | payer OTHER, SELFPAY | PROVIDERS: PCP Internal Medicine; Visit Provider Internal Medicine | DX: Z86.718 Personal history of other venous thrombosis and embolism (principal); Z79.01 Long term (current) use of anticoagulants; Z51.81 Encounter for therapeutic drug level monitoring | CPT/HCPCS: 85610; 99211 ==

== ENCOUNTER 2024-01-10 09:08 | Outpatient (AMB) | payer OTHER, SELFPAY ==
[2024-01-10 09:35] LABS: Prothrombin Time Whole Bld POC 42.7 sec (11.1-13.5); ~PT, ~INR - Anti Coag Clinic 3.6 (0.9-1.1)
--- NOTE | 2024-01-10 09:40 | MHC.OFFVISCO ---
Intake Intake Visit Reasons: Anticoagulation Allergies codeine [Codeine] Allergy (Severe, Verified 01/10/24 09:30) DIFFICULTY BREATHING Penicillins Allergy (Severe, Verified 01/10/24 09:30) RASH penicillin V Allergy (Intermediate, Verified 01/10/24 09:30) RASH tramadol [Ultram] Allergy (Unknown, Verified 01/10/24 09:30) hallucinations Shellfish Allergy (Severe, Uncoded 01/10/24 09:30) THROAT SWELLING Contrast Allergy PreMed Pack Allergy (Unknown, Uncoded 01/10/24 09:30) TREAT WITH BENADRYL ferrlecit Adverse Reaction (Intermediate, Uncoded 01/10/24 09:30) Rash Medication List - Last Reconciled 01/10/24 by Tonia Angeles RN atorvastatin 80 mg PO DAILY blood sugar diagnostic As directed clonidine HCl 0.1 mg PO BID dapagliflozin propanediol (Farxiga) 10 mg PO DAILY diphenhydramine HCl (Banophen) mg PO duloxetine 120 mg PO QAM fluticasone propion-salmeterol 100-50 mcg/dose ea inhalation gabapentin 100 mg PO TID hydrocortisone 2.5% appl topical insulin glargine (Lantus Solostar U-100 Insulin) 10 units subcut QPM ipratropium-albuterol 0.5 mg-3 mg(2.5 mg base)/3 mL mL inhalation ipratropium-albuterol 20-100 mcg/actuation 1 puff PO QID lancets As directed lancets As directed latanoprost 0.005% drps ophthalmic (eye) linagliptin (Tradjenta) 5 mg PO DAILY ghjndp-svzilxxz-ravfjmp 24,000-76,000 -120,000 unit 1 cap PO TID loratadine 10 mg PO DAILY PRN lorazepam 1 mg PO BID meclizine mg PO montelukast 10 mg PO BEDTIME nifedipine ER 30 mg PO DAILY ondansetron 4 mg PO Q8H PRN polyethylene glycol 3350 grams PO [procrit pt states she receives it weekly ] quetiapine 200 mg PO BEDTIME rabeprazole 20 mg PO DAILY ropinirole 0.25 mg PO BEDTIME sodium chloride 0.65% (Deep Sea Nasal) sprays intranasal Q2H PRN triamcinolone acetonide 0.1% appl topical warfarin 2.5 mg See Protocol PO DAILY Nursing Note INR 3.6? out of therapeutic range of 2-3 Medications and supplements reviewed Patient status: states she fell since last visit. No unusual bleeding or bruising but states she strained her right arm. Good ROM noted on the right arm. Medications or supplements: no changes Diet: no changes Denies any signs and symptoms of bleeding or clotting or unusual bruising Bleeding, bruising, clotting discussed Nutritional guidance given: to have a serving of greens today. Pt does not like greens but states will have canned peaches and avocados today Dose: today's dose decreased to 2.5mg (3.75) then to resume 3.75mg daily F/U INR Date : 1 week?? Patient verbalizing understanding of instructions given. Coding Level of Care Code Est Patient Level 1 Diagnoses Current use of anticoagulant therapy Z79.01 Assessment & Plan Assessment & Plan (1) Current use of anticoagulant therapy: Code(s): Z79.01 - senior care (current) use of anticoagulants Category: Medical
== END 2024-01-10 09:46 | disposition home or self-care (01) ==
LOC: HO.ACS 09:08
PROVIDERS: PCP Internal Medicine; Visit Provider Internal Medicine
DX: Z79.01 Long term (current) use of anticoagulants (principal)

== ENCOUNTER → 2024-01-10 09:08 | Outpatient (BNVA) | payer OTHER, SELFPAY | PROVIDERS: PCP Internal Medicine; Visit Provider Internal Medicine | DX: Z86.718 Personal history of other venous thrombosis and embolism (principal); Z79.01 Long term (current) use of anticoagulants; Z51.81 Encounter for therapeutic drug level monitoring | CPT/HCPCS: 85610; 99211 ==

== ENCOUNTER 2024-01-19 10:39 | Outpatient (AMB) | payer OTHER, SELFPAY ==
[2024-01-19 10:57] LABS: Prothrombin Time Whole Bld POC 17.1 sec (11.1-13.5); ~PT, ~INR - Anti Coag Clinic 1.4 (0.9-1.1)
--- NOTE | 2024-01-19 10:58 | MHC.OFFVISCO ---
Intake Intake Visit Reasons: Anticoagulation Allergies codeine [Codeine] Allergy (Severe, Verified 01/19/24 10:53) DIFFICULTY BREATHING Penicillins Allergy (Severe, Verified 01/19/24 10:53) RASH penicillin V Allergy (Intermediate, Verified 01/19/24 10:53) RASH tramadol [Ultram] Allergy (Unknown, Verified 01/19/24 10:53) hallucinations Shellfish Allergy (Severe, Uncoded 01/19/24 10:53) THROAT SWELLING Contrast Allergy PreMed Pack Allergy (Unknown, Uncoded 01/19/24 10:53) TREAT WITH BENADRYL ferrlecit Adverse Reaction (Intermediate, Uncoded 01/19/24 10:53) Rash Medication List - Last Reconciled 01/19/24 by Barbara Lr RN atorvastatin 80 mg PO DAILY blood sugar diagnostic As directed clonidine HCl 0.1 mg PO BID dapagliflozin propanediol (Farxiga) 10 mg PO DAILY diphenhydramine HCl (Banophen) mg PO duloxetine 120 mg PO QAM fluticasone propion-salmeterol 100-50 mcg/dose ea inhalation gabapentin 100 mg PO TID hydrocortisone 2.5% appl topical insulin glargine (Lantus Solostar U-100 Insulin) 10 units subcut QPM ipratropium-albuterol 0.5 mg-3 mg(2.5 mg base)/3 mL mL inhalation ipratropium-albuterol 20-100 mcg/actuation 1 puff PO QID lancets As directed lancets As directed latanoprost 0.005% drps ophthalmic (eye) linagliptin (Tradjenta) 5 mg PO DAILY wfbiph-nwzbaalt-gubhxos 24,000-76,000 -120,000 unit 1 cap PO TID loratadine 10 mg PO DAILY PRN lorazepam 1 mg PO BID meclizine mg PO montelukast 10 mg PO BEDTIME nifedipine ER 30 mg PO DAILY ondansetron 4 mg PO Q8H PRN polyethylene glycol 3350 grams PO [procrit pt states she receives it weekly ] quetiapine 200 mg PO BEDTIME rabeprazole 20 mg PO DAILY ropinirole 0.25 mg PO BEDTIME sodium chloride 0.65% (Deep Sea Nasal) sprays intranasal Q2H PRN triamcinolone acetonide 0.1% appl topical warfarin 2.5 mg See Protocol PO DAILY Nursing Note INR 1.4-? 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 pt with multiple c.o- states has a cold/wearing mask but she states covid neg Medications or supplements: no changes Diet: decreased per pt Denies any signs and symptoms of bleeding or clotting or unusual bruising Bleeding, bruising, clotting discussed - aware at risk for clotting- states aware of s/s Nutritional guidance given: no greens for 3 days, eat reds to raise Dose: 5mg today and tomm then 3.75mg x 7 F/U INR Date : wed01/24/24?? Patient verbalizing understanding of instructions given. pcp office dr duran called at 1110 with low inr/dosing and f/u appt- awaiting call back. multiple calls to pcp return call raghav at 1315. made aware of missed dose Coding Level of Care Code Est Patient Level 1 Diagnoses Current use of anticoagulant therapy Z79.01 Assessment & Plan Assessment & Plan (1) Current use of anticoagulant therapy: Code(s): Z79.01 - FDC (current) use of anticoagulants Category: Medical
== END 2024-01-19 11:16 | disposition home or self-care (01) ==
LOC: HO.ACS 10:39
PROVIDERS: PCP Internal Medicine; Visit Provider Internal Medicine
DX: Z79.01 Long term (current) use of anticoagulants (principal)

== ENCOUNTER → 2024-01-19 10:39 | Outpatient (BNVA) | payer OTHER, SELFPAY | PROVIDERS: PCP Internal Medicine; Visit Provider Internal Medicine | DX: Z86.718 Personal history of other venous thrombosis and embolism (principal); Z79.01 Long term (current) use of anticoagulants; Z51.81 Encounter for therapeutic drug level monitoring | CPT/HCPCS: 85610; 99211 ==

== ENCOUNTER 2024-01-26 09:38 | Outpatient (AMB) | payer OTHER, SELFPAY ==
[2024-01-26 09:50] LABS: Prothrombin Time Whole Bld POC 35.8 sec (11.1-13.5)
--- NOTE | 2024-01-26 10:00 | MHC.OFFVISCO ---
Intake Intake Visit Reasons: Anticoagulation Allergies codeine [Codeine] Allergy (Severe, Verified 01/26/24 09:44) DIFFICULTY BREATHING Penicillins Allergy (Severe, Verified 01/26/24 09:44) RASH penicillin V Allergy (Intermediate, Verified 01/26/24 09:44) RASH tramadol [Ultram] Allergy (Unknown, Verified 01/26/24 09:44) hallucinations Shellfish Allergy (Severe, Uncoded 01/19/24 10:53) THROAT SWELLING Contrast Allergy PreMed Pack Allergy (Unknown, Uncoded 01/19/24 10:53) TREAT WITH BENADRYL ferrlecit Adverse Reaction (Intermediate, Uncoded 01/19/24 10:53) Rash Medication List - Last Reconciled 01/26/24 by Teresa Flowers RN atorvastatin 80 mg PO DAILY blood sugar diagnostic As directed clonidine HCl 0.1 mg PO BID dapagliflozin propanediol (Farxiga) 10 mg PO DAILY diphenhydramine HCl (Banophen) mg PO duloxetine 120 mg PO QAM fluticasone propion-salmeterol 100-50 mcg/dose ea inhalation gabapentin 100 mg PO TID hydrocortisone 2.5% appl topical insulin glargine (Lantus Solostar U-100 Insulin) 10 units subcut QPM ipratropium-albuterol 0.5 mg-3 mg(2.5 mg base)/3 mL mL inhalation ipratropium-albuterol 20-100 mcg/actuation 1 puff PO QID lancets As directed lancets As directed latanoprost 0.005% drps ophthalmic (eye) linagliptin (Tradjenta) 5 mg PO DAILY nidtro-aydejypi-rpvfdrp 24,000-76,000 -120,000 unit 1 cap PO TID loratadine 10 mg PO DAILY PRN lorazepam 1 mg PO BID meclizine mg PO montelukast 10 mg PO BEDTIME nifedipine ER 30 mg PO DAILY ondansetron 4 mg PO Q8H PRN polyethylene glycol 3350 grams PO [procrit pt states she receives it weekly ] quetiapine 200 mg PO BEDTIME rabeprazole 20 mg PO DAILY ropinirole 0.25 mg PO BEDTIME sodium chloride 0.65% (Deep Sea Nasal) sprays intranasal Q2H PRN triamcinolone acetonide 0.1% appl topical warfarin 2.5 mg See Protocol PO DAILY Nursing Note PT.IS SCHEDULED FOR PORT REMOVAL ON 02/06. TO HOLD WARFARIN X 3 DAYS PRIOR WITH LAST DOSE ON 02/03/24. NO LOVENOX IS ORDERED PER PT. IN MEANTIME WILL CONTINUE 3.75MGM DAILY AND FOLLOW-UP HERE ON 02/09. TO RESTART WARFARIN WHEN DIRECTED BY MD AFTER PROCEDURE IS COMPLETED. GOOD UNDERSTANDING OF INSTRUCTIONS VERB.BY PT. 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
== END 2024-01-26 10:03 | disposition home or self-care (01) ==
LOC: HO.ACS 09:38
PROVIDERS: PCP Internal Medicine; Visit Provider Internal Medicine
DX: Z79.01 Long term (current) use of anticoagulants (principal)

== ENCOUNTER → 2024-01-26 09:38 | Outpatient (BNVA) | payer OTHER, SELFPAY | PROVIDERS: PCP Internal Medicine; Visit Provider Internal Medicine | DX: Z86.718 Personal history of other venous thrombosis and embolism (principal); Z79.01 Long term (current) use of anticoagulants; Z51.81 Encounter for therapeutic drug level monitoring | CPT/HCPCS: 85610; 99211 ==

== ENCOUNTER 2024-02-10 09:54 | Outpatient (AMB) | payer OTHER, SELFPAY ==
[2024-02-10 10:09] LABS: Prothrombin Time Whole Bld POC 16.5 sec (11.1-13.5); ~PT, ~INR - Anti Coag Clinic 1.4 (0.9-1.1)
--- NOTE | 2024-02-10 10:23 | MHC.OFFVISCO ---
Intake Intake Visit Reasons: Anticoagulation Allergies codeine [Codeine] Allergy (Severe, Verified 02/10/24 10:03) DIFFICULTY BREATHING Penicillins Allergy (Severe, Verified 02/10/24 10:03) RASH penicillin V Allergy (Intermediate, Verified 02/10/24 10:03) RASH tramadol [Ultram] Allergy (Unknown, Verified 02/10/24 10:03) hallucinations Shellfish Allergy (Severe, Uncoded 02/10/24 10:03) THROAT SWELLING Contrast Allergy PreMed Pack Allergy (Unknown, Uncoded 02/10/24 10:03) TREAT WITH BENADRYL ferrlecit Adverse Reaction (Intermediate, Uncoded 02/10/24 10:03) Rash Medication List - Last Reconciled 02/10/24 by Tangela Sam RN atorvastatin 80 mg PO DAILY blood sugar diagnostic As directed clonidine HCl 0.1 mg PO BID dapagliflozin propanediol (Farxiga) 10 mg PO DAILY diphenhydramine HCl (Banophen) mg PO duloxetine 120 mg PO QAM fluticasone propion-salmeterol 100-50 mcg/dose ea inhalation gabapentin 100 mg PO TID hydrocortisone 2.5% appl topical insulin glargine (Lantus Solostar U-100 Insulin) 10 units subcut QPM ipratropium-albuterol 0.5 mg-3 mg(2.5 mg base)/3 mL mL inhalation ipratropium-albuterol 20-100 mcg/actuation 1 puff PO QID lancets As directed lancets As directed latanoprost 0.005% drps ophthalmic (eye) linagliptin (Tradjenta) 5 mg PO DAILY ciohyf-rcpapnuv-xpqxkzz 24,000-76,000 -120,000 unit 1 cap PO TID loratadine 10 mg PO DAILY PRN lorazepam 1 mg PO BID meclizine mg PO montelukast 10 mg PO BEDTIME nifedipine ER 30 mg PO DAILY ondansetron 4 mg PO Q8H PRN polyethylene glycol 3350 grams PO [procrit pt states she receives it weekly ] quetiapine 200 mg PO BEDTIME rabeprazole 20 mg PO DAILY ropinirole 0.25 mg PO BEDTIME sodium chloride 0.65% (Deep Sea Nasal) sprays intranasal Q2H PRN triamcinolone acetonide 0.1% appl topical warfarin 2.5 mg See Protocol PO DAILY Nursing Note INR 1.4 out of therapeutic range Medications and supplements reviewed Patient status: S/P PORT REMOVAL THIS Wednesday02/07/24- RESUME WARFARIN TU 5MG Wed Medications or supplements: HELD WARFARIN X 3 DAYS Diet: FAIR Denies any signs and symptoms of bleeding or clotting or unusual bruising Bleeding, bruising, clotting discussed Nutritional guidance given: AVOID GREENS X 3 DAYS, EAT ORANGE AND REDS Dose: 5MG TODAY THEN 3.75MG DAILY F/U INR Date: 02/14/24?? Patient verbalizing understanding of instructions given. 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
== END 2024-02-10 10:27 | disposition home or self-care (01) ==
LOC: HO.ACS 09:54
PROVIDERS: PCP Internal Medicine; Visit Provider Internal Medicine
DX: Z79.01 Long term (current) use of anticoagulants (principal)

== ENCOUNTER → 2024-02-10 09:54 | Outpatient (BNVA) | payer OTHER, SELFPAY | PROVIDERS: PCP Internal Medicine; Visit Provider Internal Medicine | DX: Z86.718 Personal history of other venous thrombosis and embolism (principal); Z79.01 Long term (current) use of anticoagulants; Z51.81 Encounter for therapeutic drug level monitoring | CPT/HCPCS: 85610; 99211 ==

== ENCOUNTER 2024-02-14 09:25 | Outpatient (AMB) | payer OTHER, SELFPAY ==
--- NOTE | 2024-02-14 09:37 | MHC.OFFVISCO ---
Intake Intake Visit Reasons: Anticoagulation Allergies codeine [Codeine] Allergy (Severe, Verified 02/14/24 09:32) DIFFICULTY BREATHING Penicillins Allergy (Severe, Verified 02/14/24 09:32) RASH penicillin V Allergy (Intermediate, Verified 02/14/24 09:32) RASH tramadol [Ultram] Allergy (Unknown, Verified 02/14/24 09:32) hallucinations Shellfish Allergy (Severe, Uncoded 02/14/24 09:32) THROAT SWELLING Contrast Allergy PreMed Pack Allergy (Unknown, Uncoded 02/14/24 09:32) TREAT WITH BENADRYL ferrlecit Adverse Reaction (Intermediate, Uncoded 02/14/24 09:32) Rash Medication List - Last Reconciled 02/14/24 by Barbara Lr RN atorvastatin 80 mg PO DAILY blood sugar diagnostic As directed clonidine HCl 0.1 mg PO BID dapagliflozin propanediol (Farxiga) 10 mg PO DAILY diphenhydramine HCl (Banophen) mg PO duloxetine 120 mg PO QAM fluticasone propion-salmeterol 100-50 mcg/dose ea inhalation gabapentin 100 mg PO TID hydrocortisone 2.5% appl topical insulin glargine (Lantus Solostar U-100 Insulin) 10 units subcut QPM ipratropium-albuterol 0.5 mg-3 mg(2.5 mg base)/3 mL mL inhalation ipratropium-albuterol 20-100 mcg/actuation 1 puff PO QID lancets As directed lancets As directed latanoprost 0.005% drps ophthalmic (eye) linagliptin (Tradjenta) 5 mg PO DAILY fvfsal-agsksqgm-nizfqse 24,000-76,000 -120,000 unit 1 cap PO TID loratadine 10 mg PO DAILY PRN lorazepam 1 mg PO BID meclizine mg PO montelukast 10 mg PO BEDTIME nifedipine ER 30 mg PO DAILY ondansetron 4 mg PO Q8H PRN polyethylene glycol 3350 grams PO [procrit pt states she receives it weekly ] quetiapine 200 mg PO BEDTIME rabeprazole 20 mg PO DAILY ropinirole 0.25 mg PO BEDTIME sodium chloride 0.65% (Deep Sea Nasal) sprays intranasal Q2H PRN triamcinolone acetonide 0.1% appl topical warfarin 2.5 mg See Protocol PO DAILY Nursing Note INR 1.6-? out of therapeutic range Medications and supplements reviewed Patient status: pt s/p port removal on 02/07/24, incision intact, denies bleeding pt denies missed dose Medications or supplements: no changes per pt Diet: less Denies any signs and symptoms of bleeding or clotting or unusual bruising Bleeding, bruising, clotting discussed Nutritional guidance given: no greens for 2-3 days, eat reds to raise Dose: 5mg today then 3.75mg x 7 F/U INR Date : wednesday02/18/24 Patient verbalizing understanding of instructions given. Coding Level of Care Code Est Patient Level 1 Diagnoses Current use of anticoagulant therapy Z79.01 Assessment & Plan Assessment & Plan (1) Current use of anticoagulant therapy: Code(s): Z79.01 - snf (current) use of anticoagulants Category: Medical
[2024-02-14 09:38] LABS: Prothrombin Time Whole Bld POC 19.7 sec (11.1-13.5); ~PT, ~INR - Anti Coag Clinic 1.6 (0.9-1.1)
== END 2024-02-14 10:12 | disposition home or self-care (01) ==
LOC: HO.ACS 09:25
PROVIDERS: PCP Internal Medicine; Visit Provider Internal Medicine
DX: Z79.01 Long term (current) use of anticoagulants (principal)

== ENCOUNTER → 2024-02-14 09:25 | Outpatient (BNVA) | payer OTHER, SELFPAY | PROVIDERS: PCP Internal Medicine; Visit Provider Internal Medicine | DX: Z86.718 Personal history of other venous thrombosis and embolism (principal); Z51.81 Encounter for therapeutic drug level monitoring; Z79.01 Long term (current) use of anticoagulants | CPT/HCPCS: 85610; 99211 ==

== ENCOUNTER 2024-02-18 09:24 | Outpatient (AMB) | payer OTHER, SELFPAY ==
--- NOTE | 2024-02-18 09:44 | MHC.OFFVISCO ---
Intake Intake Visit Reasons: Anticoagulation Allergies codeine [Codeine] Allergy (Severe, Verified 02/18/24 09:30) DIFFICULTY BREATHING Penicillins Allergy (Severe, Verified 02/18/24 09:30) RASH penicillin V Allergy (Intermediate, Verified 02/18/24 09:30) RASH tramadol [Ultram] Allergy (Unknown, Verified 02/18/24 09:30) hallucinations Shellfish Allergy (Severe, Uncoded 02/14/24 09:32) THROAT SWELLING Contrast Allergy PreMed Pack Allergy (Unknown, Uncoded 02/14/24 09:32) TREAT WITH BENADRYL ferrlecit Adverse Reaction (Intermediate, Uncoded 02/14/24 09:32) Rash Medication List - Last Reconciled 02/18/24 by Teresa Flowers RN atorvastatin 80 mg PO DAILY blood sugar diagnostic As directed clonidine HCl 0.1 mg PO BID dapagliflozin propanediol (Farxiga) 10 mg PO DAILY diphenhydramine HCl (Banophen) mg PO duloxetine 120 mg PO QAM fluticasone propion-salmeterol 100-50 mcg/dose ea inhalation gabapentin 100 mg PO TID hydrocortisone 2.5% appl topical insulin glargine (Lantus Solostar U-100 Insulin) 10 units subcut QPM ipratropium-albuterol 0.5 mg-3 mg(2.5 mg base)/3 mL mL inhalation ipratropium-albuterol 20-100 mcg/actuation 1 puff PO QID lancets As directed lancets As directed latanoprost 0.005% drps ophthalmic (eye) linagliptin (Tradjenta) 5 mg PO DAILY zcjjvr-wrdnwuba-hhqjfvq 24,000-76,000 -120,000 unit 1 cap PO TID loratadine 10 mg PO DAILY PRN lorazepam 1 mg PO BID meclizine mg PO montelukast 10 mg PO BEDTIME nifedipine ER 30 mg PO DAILY ondansetron 4 mg PO Q8H PRN polyethylene glycol 3350 grams PO [procrit pt states she receives it weekly ] quetiapine 200 mg PO BEDTIME rabeprazole 20 mg PO DAILY ropinirole 0.25 mg PO BEDTIME sodium chloride 0.65% (Deep Sea Nasal) sprays intranasal Q2H PRN triamcinolone acetonide 0.1% appl topical warfarin 2.5 mg See Protocol PO DAILY Nursing Note PORT REMOVAL SITES CLEAN AND DRY. PT. DENIES ANY CP,SOB,DIET/MED CHANGES,FALLS OR SX OF BLEEDING. CONTINUE PRESENT DOSE AND FOLLOW-UP IN 1 WEEK. GOOD UNDERSTANDING OF DOSING INSTR. 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
[2024-02-18 16:25] LABS: Prothrombin Time Whole Bld POC 27.5 sec (11.1-13.5); ~PT, ~INR - Anti Coag Clinic 2.3 (0.9-1.1)
== END 2024-02-18 09:49 | disposition home or self-care (01) ==
LOC: HO.ACS 09:24
PROVIDERS: PCP Internal Medicine; Visit Provider Internal Medicine
DX: Z79.01 Long term (current) use of anticoagulants (principal)

== ENCOUNTER → 2024-02-18 09:24 | Outpatient (BNVA) | payer OTHER, SELFPAY | PROVIDERS: PCP Internal Medicine; Visit Provider Internal Medicine | DX: Z86.718 Personal history of other venous thrombosis and embolism (principal); Z79.01 Long term (current) use of anticoagulants; Z51.81 Encounter for therapeutic drug level monitoring | CPT/HCPCS: 85610; 99211 ==

== ENCOUNTER 2024-02-25 09:28 | Outpatient (AMB) | payer OTHER, SELFPAY ==
[2024-02-25 09:49] LABS: Prothrombin Time Whole Bld POC 22.6 sec (11.1-13.5); ~PT, ~INR - Anti Coag Clinic 1.9 (0.9-1.1)
--- NOTE | 2024-02-25 09:56 | MHC.OFFVISCO ---
Intake Intake Visit Reasons: Anticoagulation Allergies codeine [Codeine] Allergy (Severe, Verified 02/25/24 09:44) DIFFICULTY BREATHING Penicillins Allergy (Severe, Verified 02/25/24 09:44) RASH penicillin V Allergy (Intermediate, Verified 02/25/24 09:44) RASH tramadol [Ultram] Allergy (Unknown, Verified 02/25/24 09:44) hallucinations Shellfish Allergy (Severe, Uncoded 02/25/24 09:44) THROAT SWELLING Contrast Allergy PreMed Pack Allergy (Unknown, Uncoded 02/25/24 09:44) TREAT WITH BENADRYL ferrlecit Adverse Reaction (Intermediate, Uncoded 02/25/24 09:44) Rash Medication List - Last Reconciled 02/25/24 by Tonia Angeles RN atorvastatin 80 mg PO DAILY blood sugar diagnostic As directed clonidine HCl 0.1 mg PO BID dapagliflozin propanediol (Farxiga) 10 mg PO DAILY diphenhydramine HCl (Banophen) mg PO duloxetine 120 mg PO QAM fluticasone propion-salmeterol 100-50 mcg/dose ea inhalation gabapentin 100 mg PO TID hydrocortisone 2.5% appl topical insulin glargine (Lantus Solostar U-100 Insulin) 10 units subcut QPM ipratropium-albuterol 0.5 mg-3 mg(2.5 mg base)/3 mL mL inhalation ipratropium-albuterol 20-100 mcg/actuation 1 puff PO QID lancets As directed lancets As directed latanoprost 0.005% drps ophthalmic (eye) linagliptin (Tradjenta) 5 mg PO DAILY ojbkph-ptmjkikm-fqyxvls 24,000-76,000 -120,000 unit 1 cap PO TID loratadine 10 mg PO DAILY PRN lorazepam 1 mg PO BID meclizine mg PO montelukast 10 mg PO BEDTIME nifedipine ER 30 mg PO DAILY ondansetron 4 mg PO Q8H PRN polyethylene glycol 3350 grams PO [procrit pt states she receives it weekly ] quetiapine 200 mg PO BEDTIME rabeprazole 20 mg PO DAILY ropinirole 0.25 mg PO BEDTIME sodium chloride 0.65% (Deep Sea Nasal) sprays intranasal Q2H PRN triamcinolone acetonide 0.1% appl topical warfarin 2.5 mg See Protocol PO DAILY Nursing Note INR 1.9?out of therapeutic range 2-3 Medications and supplements reviewed Patient status: usual state of health Medications or supplements: no change Diet: usual diet for pt Denies any signs and symptoms of bleeding or clotting or unusual bruising Bleeding, bruising, clotting discussed Nutritional guidance given: to avoid greens for today and to have a serving of reds today Dose: 3.75mg daily F/U INR Date : 12 days?? Patient verbalizing understanding of instructions given. 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
== END 2024-02-25 09:58 | disposition home or self-care (01) ==
LOC: HO.ACS 09:28
PROVIDERS: PCP Internal Medicine; Visit Provider Internal Medicine
DX: Z79.01 Long term (current) use of anticoagulants (principal)

== ENCOUNTER → 2024-02-25 09:28 | Outpatient (BNVA) | payer OTHER, SELFPAY | PROVIDERS: PCP Internal Medicine; Visit Provider Internal Medicine | DX: Z86.718 Personal history of other venous thrombosis and embolism (principal); Z79.01 Long term (current) use of anticoagulants; Z51.81 Encounter for therapeutic drug level monitoring | CPT/HCPCS: 85610; 99211 ==

== ENCOUNTER 2024-03-06 09:34 | Outpatient (AMB) | payer OTHER, SELFPAY ==
[2024-03-06 10:09] LABS: Prothrombin Time Whole Bld POC 15.8 sec (11.1-13.5); ~PT, ~INR - Anti Coag Clinic 1.3 (0.9-1.1)
--- NOTE | 2024-03-06 10:18 | MHC.OFFVISCO ---
Intake Intake Visit Reasons: Anticoagulation Allergies codeine [Codeine] Allergy (Severe, Verified 03/06/24 10:00) DIFFICULTY BREATHING Penicillins Allergy (Severe, Verified 03/06/24 10:00) RASH penicillin V Allergy (Intermediate, Verified 03/06/24 10:00) RASH tramadol [Ultram] Allergy (Unknown, Verified 03/06/24 10:00) hallucinations Shellfish Allergy (Severe, Uncoded 03/06/24 10:00) THROAT SWELLING Contrast Allergy PreMed Pack Allergy (Unknown, Uncoded 03/06/24 10:00) TREAT WITH BENADRYL ferrlecit Adverse Reaction (Intermediate, Uncoded 03/06/24 10:00) Rash Medication List - Last Reconciled 03/06/24 by Tonia Angeles RN atorvastatin 80 mg PO DAILY blood sugar diagnostic As directed clonidine HCl 0.1 mg PO BID dapagliflozin propanediol (Farxiga) 10 mg PO DAILY diphenhydramine HCl (Banophen) mg PO duloxetine 120 mg PO QAM fluticasone propion-salmeterol 100-50 mcg/dose ea inhalation gabapentin 100 mg PO TID hydrocortisone 2.5% appl topical insulin glargine (Lantus Solostar U-100 Insulin) 10 units subcut QPM ipratropium-albuterol 0.5 mg-3 mg(2.5 mg base)/3 mL mL inhalation ipratropium-albuterol 20-100 mcg/actuation 1 puff PO QID lancets As directed lancets As directed latanoprost 0.005% drps ophthalmic (eye) linagliptin (Tradjenta) 5 mg PO DAILY sctdaz-ozsqornm-wetgbhi 24,000-76,000 -120,000 unit 1 cap PO TID loratadine 10 mg PO DAILY PRN lorazepam 1 mg PO BID meclizine mg PO montelukast 10 mg PO BEDTIME nifedipine ER 30 mg PO DAILY ondansetron 4 mg PO Q8H PRN polyethylene glycol 3350 grams PO [procrit pt states she receives it weekly ] quetiapine 200 mg PO BEDTIME rabeprazole 20 mg PO DAILY ropinirole 0.25 mg PO BEDTIME sodium chloride 0.65% (Deep Sea Nasal) sprays intranasal Q2H PRN triamcinolone acetonide 0.1% appl topical warfarin 2.5 mg See Protocol PO DAILY Nursing Note INR 1.3?out of therapeutic range 2-3 Medications and supplements reviewed Patient status: well Medications or supplements: no changes per pt Diet: usual diet Denies any signs and symptoms of bleeding or clotting or unusual bruising Bleeding, bruising, clotting discussed Nutritional guidance given: to avoid greens for 3 days Dose: increase today's dose to 7.5mg (3.75) and increase tomorrow to 5mg (3.75) then usual dose of 3.75mg the next day then return for re-test F/U INR Date : 03/09/24?? Patient verbalizing understanding of instructions given. T/C to Dr Son's office. Spoke to nurse Monreal and critical INR given with dosing plan and next re-test date. 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
== END 2024-03-06 11:00 | disposition home or self-care (01) ==
LOC: HO.ACS 09:34
PROVIDERS: PCP Internal Medicine; Visit Provider Internal Medicine
DX: Z79.01 Long term (current) use of anticoagulants (principal)

== ENCOUNTER → 2024-03-06 09:34 | Outpatient (BNVA) | payer OTHER, SELFPAY | PROVIDERS: PCP Internal Medicine; Visit Provider Internal Medicine | DX: Z86.718 Personal history of other venous thrombosis and embolism (principal); Z79.01 Long term (current) use of anticoagulants; Z51.81 Encounter for therapeutic drug level monitoring | CPT/HCPCS: 85610; 99211 ==

== ENCOUNTER 2024-03-09 09:26 | Outpatient (AMB) | payer OTHER, SELFPAY ==
[2024-03-09 09:43] LABS: Prothrombin Time Whole Bld POC 24.4 sec (11.1-13.5)
--- NOTE | 2024-03-09 09:56 | MHC.OFFVISCO ---
Intake Intake Visit Reasons: Anticoagulation Allergies codeine [Codeine] Allergy (Severe, Verified 03/09/24 09:35) DIFFICULTY BREATHING Penicillins Allergy (Severe, Verified 03/09/24 09:35) RASH penicillin V Allergy (Intermediate, Verified 03/09/24 09:35) RASH tramadol [Ultram] Allergy (Unknown, Verified 03/09/24 09:35) hallucinations Shellfish Allergy (Severe, Uncoded 03/09/24 09:35) THROAT SWELLING Contrast Allergy PreMed Pack Allergy (Unknown, Uncoded 03/09/24 09:35) TREAT WITH BENADRYL ferrlecit Adverse Reaction (Intermediate, Uncoded 03/09/24 09:35) Rash Medication List - Last Reconciled 03/09/24 by Tangela Sam RN atorvastatin 80 mg PO DAILY blood sugar diagnostic As directed clonidine HCl 0.1 mg PO BID dapagliflozin propanediol (Farxiga) 10 mg PO DAILY diphenhydramine HCl (Banophen) mg PO duloxetine 120 mg PO QAM fluticasone propion-salmeterol 100-50 mcg/dose ea inhalation gabapentin 100 mg PO TID hydrocortisone 2.5% appl topical insulin glargine (Lantus Solostar U-100 Insulin) 10 units subcut QPM ipratropium-albuterol 0.5 mg-3 mg(2.5 mg base)/3 mL mL inhalation ipratropium-albuterol 20-100 mcg/actuation 1 puff PO QID lancets As directed lancets As directed latanoprost 0.005% drps ophthalmic (eye) linagliptin (Tradjenta) 5 mg PO DAILY emiarn-vfnojkic-cerdzbj 24,000-76,000 -120,000 unit 1 cap PO TID loratadine 10 mg PO DAILY PRN lorazepam 1 mg PO BID meclizine mg PO montelukast 10 mg PO BEDTIME nifedipine ER 30 mg PO DAILY ondansetron 4 mg PO Q8H PRN polyethylene glycol 3350 grams PO [procrit pt states she receives it weekly ] quetiapine 200 mg PO BEDTIME rabeprazole 20 mg PO DAILY ropinirole 0.25 mg PO BEDTIME sodium chloride 0.65% (Deep Sea Nasal) sprays intranasal Q2H PRN triamcinolone acetonide 0.1% appl topical warfarin 2.5 mg See Protocol PO DAILY Nursing Note INR: 2.0 in therapeutic range Medications and supplements reviewed No changes in diet, medications, or supplements, SHE STATED LAST WEEK SHE HAD A LOT OF HEMORRHOIDAL BLEEDING AND HAS LESSENED STATES SHE CONT TO HAVE PSUEDO TYPE SEIZURES, AND HER EAR HAS BEEN BOTHERING HER SINCE SHE HAD THE PORT REMOVED, ENC TO HAVE ENT CONSULT, ENC SLOW DEEP BREATHING WHEN SHE FEELS A SEIZURE MIGHT OCCUR AND TO PRACTICE SLOW DEEP BREATHING THROUGH OUT THE DAY Denies any signs and symptoms of bleeding or bruising or clotting. Bleeding, bruising, clotting discussed Nutritional guidance given - EAT A MIX OF FRUITS AND VEGETABLES THAT YOU CAN TOLERATE Dose: 5MG WEDNESDAY/ 3.75MG X 6 DAYS F/U INR: 1 WEEK Patient verbalizes understanding of instructions given Coding Level of Care Code Est Patient Level 1 Diagnoses Current use of anticoagulant therapy Z79.01 Results AMB INR Fingerstick AMB INR Fingerstick 2.0 Last Edit by Tangela Sam RN on 03/09/24 09:47 MANUAL ENTRY Assessment & Plan Assessment & Plan (1) Current use of anticoagulant therapy: Code(s): Z79.01 - intermediate frame tender (current) use of anticoagulants Category: Medical
== END 2024-03-09 10:00 | disposition home or self-care (01) ==
LOC: HO.ACS 09:26
PROVIDERS: PCP Internal Medicine; Visit Provider Internal Medicine
DX: Z79.01 Long term (current) use of anticoagulants (principal)

== ENCOUNTER → 2024-03-09 09:26 | Outpatient (BNVA) | payer OTHER, SELFPAY | PROVIDERS: PCP Internal Medicine; Visit Provider Internal Medicine | DX: Z86.718 Personal history of other venous thrombosis and embolism (principal); Z79.01 Long term (current) use of anticoagulants; Z51.81 Encounter for therapeutic drug level monitoring | CPT/HCPCS: 85610; 99211 ==

== ENCOUNTER 2024-03-16 09:34 | Outpatient (AMB) | payer OTHER, SELFPAY ==
[2024-03-16 09:49] LABS: Prothrombin Time Whole Bld POC 30.5 sec (11.1-13.5); ~PT, ~INR - Anti Coag Clinic 2.5 (0.9-1.1)
--- NOTE | 2024-03-16 09:54 | MHC.OFFVISCO ---
Intake Intake Visit Reasons: Anticoagulation Allergies codeine [Codeine] Allergy (Severe, Verified 03/16/24 09:41) DIFFICULTY BREATHING Penicillins Allergy (Severe, Verified 03/16/24 09:41) RASH penicillin V Allergy (Intermediate, Verified 03/16/24 09:41) RASH tramadol [Ultram] Allergy (Unknown, Verified 03/16/24 09:41) hallucinations Shellfish Allergy (Severe, Uncoded 03/16/24 09:41) THROAT SWELLING Contrast Allergy PreMed Pack Allergy (Unknown, Uncoded 03/16/24 09:41) TREAT WITH BENADRYL ferrlecit Adverse Reaction (Intermediate, Uncoded 03/16/24 09:41) Rash Medication List - Last Reconciled 03/16/24 by Tonia Denney RN atorvastatin 80 mg PO DAILY blood sugar diagnostic As directed clonidine HCl 0.1 mg PO BID dapagliflozin propanediol (Farxiga) 10 mg PO DAILY diphenhydramine HCl (Banophen) mg PO duloxetine 120 mg PO QAM fluticasone propion-salmeterol 100-50 mcg/dose ea inhalation gabapentin 100 mg PO TID hydrocortisone 2.5% appl topical insulin glargine (Lantus Solostar U-100 Insulin) 10 units subcut QPM ipratropium-albuterol 0.5 mg-3 mg(2.5 mg base)/3 mL mL inhalation ipratropium-albuterol 20-100 mcg/actuation 1 puff PO QID lancets As directed lancets As directed latanoprost 0.005% drps ophthalmic (eye) linagliptin (Tradjenta) 5 mg PO DAILY owjifz-qoneqosu-hoizxlp 24,000-76,000 -120,000 unit 1 cap PO TID loratadine 10 mg PO DAILY PRN lorazepam 1 mg PO BID meclizine mg PO montelukast 10 mg PO BEDTIME nifedipine ER 30 mg PO DAILY ondansetron 4 mg PO Q8H PRN polyethylene glycol 3350 grams PO [procrit pt states she receives it weekly ] quetiapine 200 mg PO BEDTIME rabeprazole 20 mg PO DAILY ropinirole 0.25 mg PO BEDTIME sodium chloride 0.65% (Deep Sea Nasal) sprays intranasal Q2H PRN triamcinolone acetonide 0.1% appl topical warfarin 2.5 mg See Protocol PO DAILY Nursing Note AMb to ACS feeling same pt history of multiple seizures daily, sts she had 4 yesterday, H/O rectal bleeding sts having less, vision issues, recent port removal labile INRs has not had ENT consult yet for last week ear concerns Medications and supplements reviewed No other changes in health, diet, medications, or supplements, Denies any new signs and symptoms of bleeding or bruising or clotting. Bleeding, bruising, clotting discussed INR 2.5 in therapeutic range Dose: after review and recent changes will keep her on 3.75mg daily as previous and will continue weekly monitoring reviewed with patient and CC Tangela Sam RN may need a dose adjustment if INR subtherapeutic next week encouraged to eat a healthy balanced diet F/U INR: 1 week Patient verbalizes understanding of instructions given Coding Level of Care Code Est Patient Level 1 Diagnoses Current use of anticoagulant therapy Z79.01 Time Spent (min) 15 Assessment & Plan Assessment & Plan (1) Current use of anticoagulant therapy: Code(s): Z79.01 - medical terminologist (current) use of anticoagulants Category: Medical
== END 2024-03-16 10:07 | disposition home or self-care (01) ==
LOC: HO.ACS 09:34
PROVIDERS: PCP Internal Medicine; Visit Provider Internal Medicine
DX: Z79.01 Long term (current) use of anticoagulants (principal)

== ENCOUNTER → 2024-03-16 09:34 | Outpatient (BNVA) | payer OTHER, SELFPAY | PROVIDERS: PCP Internal Medicine; Visit Provider Internal Medicine | DX: Z86.718 Personal history of other venous thrombosis and embolism (principal); Z79.01 Long term (current) use of anticoagulants; Z51.81 Encounter for therapeutic drug level monitoring | CPT/HCPCS: 85610; 99211 ==

== ENCOUNTER 2024-03-23 09:38 | Outpatient (AMB) | payer OTHER, SELFPAY ==
[2024-03-23 09:47] LABS: Prothrombin Time Whole Bld POC 36.1 sec (11.1-13.5)
--- NOTE | 2024-03-23 09:51 | MHC.OFFVISCO ---
Intake Intake Visit Reasons: Anticoagulation Allergies codeine [Codeine] Allergy (Severe, Verified 03/23/24 09:39) DIFFICULTY BREATHING Penicillins Allergy (Severe, Verified 03/23/24 09:39) RASH penicillin V Allergy (Intermediate, Verified 03/23/24 09:39) RASH tramadol [Ultram] Allergy (Unknown, Verified 03/23/24 09:39) hallucinations Shellfish Allergy (Severe, Uncoded 03/23/24 09:39) THROAT SWELLING Contrast Allergy PreMed Pack Allergy (Unknown, Uncoded 03/23/24 09:39) TREAT WITH BENADRYL ferrlecit Adverse Reaction (Intermediate, Uncoded 03/23/24 09:39) Rash Nursing Note INR: 3.0 in therapeutic range 2-3 Medications and supplements reviewed No changes in health, diet, medications, or supplements, Denies any signs and symptoms of bleeding or bruising or clotting. 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
== END 2024-03-23 09:55 | disposition home or self-care (01) ==
LOC: HO.ACS 09:38
PROVIDERS: PCP Internal Medicine; Visit Provider Internal Medicine
DX: Z79.01 Long term (current) use of anticoagulants (principal)

== ENCOUNTER → 2024-03-23 09:38 | Outpatient (BNVA) | payer OTHER, SELFPAY | PROVIDERS: PCP Internal Medicine; Visit Provider Internal Medicine | DX: Z86.718 Personal history of other venous thrombosis and embolism (principal); Z79.01 Long term (current) use of anticoagulants; Z51.81 Encounter for therapeutic drug level monitoring | CPT/HCPCS: 85610; 99211 ==

== ENCOUNTER 2024-04-04 10:10 | Outpatient (AMB) | payer OTHER, SELFPAY ==
[2024-04-04 10:18] LABS: Prothrombin Time Whole Bld POC 16.3 sec (11.1-13.5); ~PT, ~INR - Anti Coag Clinic 1.4 (0.9-1.1)
--- NOTE | 2024-04-04 10:19 | MHC.OFFVISCO ---
Intake Intake Visit Reasons: Anticoagulation Allergies codeine [Codeine] Allergy (Severe, Verified 04/04/24 10:12) DIFFICULTY BREATHING Penicillins Allergy (Severe, Verified 04/04/24 10:12) RASH penicillin V Allergy (Intermediate, Verified 04/04/24 10:12) RASH tramadol [Ultram] Allergy (Unknown, Verified 04/04/24 10:12) hallucinations Shellfish Allergy (Severe, Uncoded 04/04/24 10:12) THROAT SWELLING Contrast Allergy PreMed Pack Allergy (Unknown, Uncoded 04/04/24 10:12) TREAT WITH BENADRYL ferrlecit Adverse Reaction (Intermediate, Uncoded 04/04/24 10:12) Rash Medication List - Last Reconciled 04/04/24 by Barbara Lr RN atorvastatin 80 mg PO DAILY blood sugar diagnostic As directed clonidine HCl 0.1 mg PO BID dapagliflozin propanediol (Farxiga) 10 mg PO DAILY diphenhydramine HCl (Banophen) mg PO duloxetine 120 mg PO QAM fluticasone propion-salmeterol 100-50 mcg/dose ea inhalation gabapentin 100 mg PO TID hydrocortisone 2.5% appl topical insulin glargine (Lantus Solostar U-100 Insulin) 10 units subcut QPM ipratropium-albuterol 0.5 mg-3 mg(2.5 mg base)/3 mL mL inhalation ipratropium-albuterol 20-100 mcg/actuation 1 puff PO QID lancets As directed lancets As directed latanoprost 0.005% drps ophthalmic (eye) linagliptin (Tradjenta) 5 mg PO DAILY wrwzel-rvyexcfj-tophtwl 24,000-76,000 -120,000 unit 1 cap PO TID loratadine 10 mg PO DAILY PRN lorazepam 1 mg PO BID meclizine mg PO montelukast 10 mg PO BEDTIME nifedipine ER 30 mg PO DAILY ondansetron 4 mg PO Q8H PRN polyethylene glycol 3350 grams PO [procrit pt states she receives it weekly ] quetiapine 200 mg PO BEDTIME rabeprazole 20 mg PO DAILY ropinirole 0.25 mg PO BEDTIME sodium chloride 0.65% (Deep Sea Nasal) sprays intranasal Q2H PRN triamcinolone acetonide 0.1% appl topical warfarin 2.5 mg See Protocol PO DAILY Nursing Note INR 1.4-?? out of therapeutic range of 2-3 Medications and supplements reviewed Patient status: pt with c.o liver' pain, also states has had mod amount intermittent rectal bleeding x 4 days pt with history of rectal bleeding. pt also states she had labwork and is scheduled for iron injection on 04/06/24 Medications or supplements: no changes Diet: same Denies any signs and symptoms of bleeding or clotting or unusual bruising Bleeding, bruising, clotting discussed - pt instructed to go to ed with any worsening or further rectal bleeding Nutritional guidance given: no greens, eat reds to raise Dose: 5mg today and tomm then 3.75mg x 7 pt with history of cva x 3 F/U INR Date : wednesday04/07/24?? Patient verbalizing understanding of instructions given. pcp office dr duran called- spoke to [place] romero/pritesh aat 1040 to report low inr, pt c/o liver pain and rectal bleeding x 4 days [place] aware pt sched for iron injection this . appt made for pt with pcp on wed04/12/24 at 1pm, [place] states pt with several no shows for previous appts. pt enc to attend Coding Level of Care Code Est Patient Level 2 Diagnoses Current use of anticoagulant therapy Z79.01 Assessment & Plan Assessment & Plan (1) Current use of anticoagulant therapy: Code(s): Z79.01 - intermission coordinator (current) use of anticoagulants Category: Medical
== END 2024-04-04 10:50 | disposition home or self-care (01) ==
LOC: HO.ACS 10:10
PROVIDERS: PCP Internal Medicine; Visit Provider Internal Medicine
DX: Z79.01 Long term (current) use of anticoagulants (principal)

== ENCOUNTER → 2024-04-04 10:10 | Outpatient (BNVA) | payer OTHER, SELFPAY | PROVIDERS: PCP Internal Medicine; Visit Provider Internal Medicine | DX: Z86.718 Personal history of other venous thrombosis and embolism (principal); Z79.01 Long term (current) use of anticoagulants; Z51.81 Encounter for therapeutic drug level monitoring | CPT/HCPCS: 85610; 99212 ==

== ENCOUNTER 2024-04-07 09:29 | Outpatient (AMB) | payer OTHER, SELFPAY ==
[2024-04-07 09:43] LABS: Prothrombin Time Whole Bld POC 29.1 sec (11.1-13.5); ~PT, ~INR - Anti Coag Clinic 2.4 (0.9-1.1)
--- NOTE | 2024-04-07 09:49 | MHC.OFFVISCO ---
Intake Intake Visit Reasons: Anticoagulation Allergies codeine [Codeine] Allergy (Severe, Verified 04/07/24 09:36) DIFFICULTY BREATHING Penicillins Allergy (Severe, Verified 04/07/24 09:36) RASH penicillin V Allergy (Intermediate, Verified 04/07/24 09:36) RASH tramadol [Ultram] Allergy (Unknown, Verified 04/07/24 09:36) hallucinations Shellfish Allergy (Severe, Uncoded 04/04/24 10:12) THROAT SWELLING Contrast Allergy PreMed Pack Allergy (Unknown, Uncoded 04/04/24 10:12) TREAT WITH BENADRYL ferrlecit Adverse Reaction (Intermediate, Uncoded 04/04/24 10:12) Rash Medication List - Last Reconciled 04/07/24 by Teresa Flowers RN atorvastatin 80 mg PO DAILY blood sugar diagnostic As directed clonidine HCl 0.1 mg PO BID dapagliflozin propanediol (Farxiga) 10 mg PO DAILY diphenhydramine HCl (Banophen) mg PO duloxetine 120 mg PO QAM fluticasone propion-salmeterol 100-50 mcg/dose ea inhalation gabapentin 100 mg PO TID hydrocortisone 2.5% appl topical insulin glargine (Lantus Solostar U-100 Insulin) 10 units subcut QPM ipratropium-albuterol 0.5 mg-3 mg(2.5 mg base)/3 mL mL inhalation ipratropium-albuterol 20-100 mcg/actuation 1 puff PO QID lancets As directed lancets As directed latanoprost 0.005% drps ophthalmic (eye) linagliptin (Tradjenta) 5 mg PO DAILY pimkfv-nsljtzpd-yataliz 24,000-76,000 -120,000 unit 1 cap PO TID loratadine 10 mg PO DAILY PRN lorazepam 1 mg PO BID meclizine mg PO montelukast 10 mg PO BEDTIME nifedipine ER 30 mg PO DAILY ondansetron 4 mg PO Q8H PRN polyethylene glycol 3350 grams PO [procrit pt states she receives it weekly ] quetiapine 200 mg PO BEDTIME rabeprazole 20 mg PO DAILY ropinirole 0.25 mg PO BEDTIME sodium chloride 0.65% (Deep Sea Nasal) sprays intranasal Q2H PRN triamcinolone acetonide 0.1% appl topical warfarin 2.5 mg See Protocol PO DAILY Nursing Note PT.STATES THAT THE RECTAL BLEEDING STOPPED 2 DAYS AGO. NO CP,SOB MED CHANGES. RESUME 3.75MGM DAILY AND FOLLOW-UP IN 10 DAYS GOOD UNDERSTANDING OF DOSING INSTR. Coding Level of Care Code Est Patient Level 1 Diagnoses Current use of anticoagulant therapy Z79.01 Assessment & Plan Assessment & Plan (1) Current use of anticoagulant therapy: Code(s): Z79.01 - technician terminal and repeater (current) use of anticoagulants Category: Medical
== END 2024-04-07 09:52 | disposition home or self-care (01) ==
LOC: HO.ACS 09:29
PROVIDERS: PCP Internal Medicine; Visit Provider Internal Medicine
DX: Z79.01 Long term (current) use of anticoagulants (principal)

== ENCOUNTER → 2024-04-07 09:29 | Outpatient (BNVA) | payer OTHER, SELFPAY | PROVIDERS: PCP Internal Medicine; Visit Provider Internal Medicine | DX: Z86.718 Personal history of other venous thrombosis and embolism (principal); Z79.01 Long term (current) use of anticoagulants; Z51.81 Encounter for therapeutic drug level monitoring | CPT/HCPCS: 85610; 99211 ==

== ENCOUNTER 2024-04-18 08:56 | Outpatient (AMB) | payer OTHER, SELFPAY ==
[2024-04-18 09:05] LABS: Prothrombin Time Whole Bld POC 30.4 sec (11.1-13.5); ~PT, ~INR - Anti Coag Clinic 2.5 (0.9-1.1)
--- NOTE | 2024-04-18 09:08 | MHC.OFFVISCO ---
Intake Intake Visit Reasons: Anticoagulation Allergies codeine [Codeine] Allergy (Severe, Verified 04/18/24 08:58) DIFFICULTY BREATHING Penicillins Allergy (Severe, Verified 04/18/24 08:58) RASH penicillin V Allergy (Intermediate, Verified 04/18/24 08:58) RASH tramadol [Ultram] Allergy (Unknown, Verified 04/18/24 08:58) hallucinations Shellfish Allergy (Severe, Uncoded 04/18/24 08:58) THROAT SWELLING Contrast Allergy PreMed Pack Allergy (Unknown, Uncoded 04/18/24 08:58) TREAT WITH BENADRYL ferrlecit Adverse Reaction (Intermediate, Uncoded 04/18/24 08:58) Rash Medication List - Last Reconciled 04/18/24 by Tonia Denney RN atorvastatin 80 mg PO DAILY blood sugar diagnostic As directed clonidine HCl 0.1 mg PO BID dapagliflozin propanediol (Farxiga) 10 mg PO DAILY diphenhydramine HCl (Banophen) mg PO duloxetine 120 mg PO QAM fluticasone propion-salmeterol 100-50 mcg/dose ea inhalation gabapentin 100 mg PO TID hydrocortisone 2.5% appl topical insulin glargine (Lantus Solostar U-100 Insulin) 10 units subcut QPM ipratropium-albuterol 0.5 mg-3 mg(2.5 mg base)/3 mL mL inhalation ipratropium-albuterol 20-100 mcg/actuation 1 puff PO QID lancets As directed lancets As directed latanoprost 0.005% drps ophthalmic (eye) linagliptin (Tradjenta) 5 mg PO DAILY ppqtzy-oyiptvqr-icevbkt 24,000-76,000 -120,000 unit 1 cap PO TID loratadine 10 mg PO DAILY PRN lorazepam 1 mg PO BID meclizine mg PO montelukast 10 mg PO BEDTIME nifedipine ER 30 mg PO DAILY ondansetron 4 mg PO Q8H PRN polyethylene glycol 3350 grams PO [procrit pt states she receives it weekly ] quetiapine 200 mg PO BEDTIME rabeprazole 20 mg PO DAILY ropinirole 0.25 mg PO BEDTIME sodium chloride 0.65% (Deep Sea Nasal) sprays intranasal Q2H PRN triamcinolone acetonide 0.1% appl topical warfarin 2.5 mg See Protocol PO DAILY Nursing Note Amb to ACS feeling well Medications and supplements reviewed No changes in health, diet, medications, or supplements, Denies any signs and symptoms of bleeding, bruising, or clotting.DENIES ANY RECTAL BLEEDING AT PRESENT Bleeding, bruising, clotting discussed INR 2.5 in therapeutic range Dose: continue usual 3.75mg daily eat a balanced diet and be consistent F/U INR: 2 weeks Patient verbalizes understanding of instructions given Coding Level of Care Code Est Patient Level 1 Diagnoses Current use of anticoagulant therapy Z79.01 Time Spent (min) 15 Assessment & Plan Assessment & Plan (1) Current use of anticoagulant therapy: Code(s): Z79.01 - terminal 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
== END 2024-04-18 09:12 | disposition home or self-care (01) ==
LOC: HO.ACS 08:56
PROVIDERS: PCP Internal Medicine; Visit Provider Internal Medicine
DX: Z79.01 Long term (current) use of anticoagulants (principal)

== ENCOUNTER → 2024-04-18 08:56 | Outpatient (BNVA) | payer OTHER, SELFPAY | PROVIDERS: PCP Internal Medicine; Visit Provider Internal Medicine | DX: Z86.718 Personal history of other venous thrombosis and embolism (principal); Z79.01 Long term (current) use of anticoagulants; Z51.81 Encounter for therapeutic drug level monitoring | CPT/HCPCS: 85610; 99211 ==

== ENCOUNTER 2024-05-02 08:56 | Outpatient (AMB) | payer OTHER, SELFPAY ==
[2024-05-02 09:30] LABS: ~PT, ~INR - Anti Coag Clinic 1.7 (0.9-1.1)
--- NOTE | 2024-05-02 09:38 | MHC.OFFVISCO ---
Intake Intake Visit Reasons: Anticoagulation Allergies codeine [Codeine] Allergy (Severe, Verified 05/02/24 09:20) DIFFICULTY BREATHING Penicillins Allergy (Severe, Verified 05/02/24 09:20) RASH penicillin V Allergy (Intermediate, Verified 05/02/24 09:20) RASH tramadol [Ultram] Allergy (Unknown, Verified 05/02/24 09:20) hallucinations Shellfish Allergy (Severe, Uncoded 05/02/24 09:20) THROAT SWELLING Contrast Allergy PreMed Pack Allergy (Unknown, Uncoded 05/02/24 09:20) TREAT WITH BENADRYL ferrlecit Adverse Reaction (Intermediate, Uncoded 05/02/24 09:20) Rash Medication List - Last Reconciled 05/02/24 by Tonia Angeles RN atorvastatin 80 mg PO DAILY blood sugar diagnostic As directed clonidine HCl 0.1 mg PO BID dapagliflozin propanediol (Farxiga) 10 mg PO DAILY diphenhydramine HCl (Banophen) mg PO duloxetine 120 mg PO QAM fluticasone propion-salmeterol 100-50 mcg/dose ea inhalation gabapentin 100 mg PO TID hydrocortisone 2.5% appl topical insulin glargine (Lantus Solostar U-100 Insulin) 10 units subcut QPM ipratropium-albuterol 0.5 mg-3 mg(2.5 mg base)/3 mL mL inhalation ipratropium-albuterol 20-100 mcg/actuation 1 puff PO QID lancets As directed lancets As directed latanoprost 0.005% drps ophthalmic (eye) linagliptin (Tradjenta) 5 mg PO DAILY wfjjlt-dmwilkcg-jumccod 24,000-76,000 -120,000 unit 1 cap PO TID loratadine 10 mg PO DAILY PRN lorazepam 1 mg PO BID meclizine mg PO montelukast 10 mg PO BEDTIME nifedipine ER 30 mg PO DAILY ondansetron 4 mg PO Q8H PRN polyethylene glycol 3350 grams PO [procrit pt states she receives it weekly ] quetiapine 200 mg PO BEDTIME rabeprazole 20 mg PO DAILY ropinirole 0.25 mg PO BEDTIME sodium chloride 0.65% (Deep Sea Nasal) sprays intranasal Q2H PRN triamcinolone acetonide 0.1% appl topical warfarin 2.5 mg See Protocol PO DAILY Nursing Note INR 1.7? out of therapeutic range of 2-3 Medications and supplements reviewed Patient status: s/p zithromycin for infected tooth. LD was yesterday. Medications or supplements: other than above, no changes Diet: usual diet for pt Denies any signs and symptoms of bleeding or clotting or unusual bruising Bleeding, bruising, clotting discussed Nutritional guidance given: to have a serving of greens Th or Wed (2-3 days from now) in anticipation for the INR to rise d/t anticiotic's delayed effect. Dose: increase today's dose to 5mg F/U INR Date : 1 week?? Patient verbalizing understanding of instructions given. Coding Level of Care Code Est Patient Level 1 Diagnoses Current use of anticoagulant therapy Z79.01 Results AMB INR Fingerstick AMB INR Fingerstick 1.7 Last Edit by Tonia Angeles RN on 05/02/24 09:29 interface delay Assessment & Plan Assessment & Plan (1) Current use of anticoagulant therapy: Code(s): Z79.01 - longterm (current) use of anticoagulants Category: Medical
== END 2024-05-02 09:53 | disposition home or self-care (01) ==
PROVIDERS: PCP Internal Medicine; Visit Provider Internal Medicine
DX: Z79.01 Long term (current) use of anticoagulants (principal)

== ENCOUNTER → 2024-05-02 08:56 | Outpatient (BNVA) | payer OTHER, SELFPAY | PROVIDERS: PCP Internal Medicine; Visit Provider Internal Medicine | DX: Z86.718 Personal history of other venous thrombosis and embolism (principal); Z79.01 Long term (current) use of anticoagulants; Z51.81 Encounter for therapeutic drug level monitoring | CPT/HCPCS: 85610; 99211 ==

== ENCOUNTER 2024-05-08 08:03 | Outpatient (AMB) | payer OTHER, SELFPAY ==
--- NOTE | 2024-05-08 08:27 | MHC.OFFVISCO ---
Intake Intake Visit Reasons: Anticoagulation Allergies codeine [Codeine] Allergy (Severe, Verified 05/08/24 08:20) DIFFICULTY BREATHING Penicillins Allergy (Severe, Verified 05/08/24 08:20) RASH penicillin V Allergy (Intermediate, Verified 05/08/24 08:20) RASH tramadol [Ultram] Allergy (Unknown, Verified 05/08/24 08:20) hallucinations Shellfish Allergy (Severe, Uncoded 05/08/24 08:20) THROAT SWELLING Contrast Allergy PreMed Pack Allergy (Unknown, Uncoded 05/08/24 08:20) TREAT WITH BENADRYL ferrlecit Adverse Reaction (Intermediate, Uncoded 05/08/24 08:20) Rash Medication List - Last Reconciled 05/08/24 by Barbara Lr RN atorvastatin 80 mg PO DAILY blood sugar diagnostic As directed clonidine HCl 0.1 mg PO BID dapagliflozin propanediol (Farxiga) 10 mg PO DAILY diphenhydramine HCl (Banophen) mg PO duloxetine 120 mg PO QAM fluticasone propion-salmeterol 100-50 mcg/dose ea inhalation gabapentin 100 mg PO TID hydrocortisone 2.5% appl topical insulin glargine (Lantus Solostar U-100 Insulin) 10 units subcut QPM ipratropium-albuterol 0.5 mg-3 mg(2.5 mg base)/3 mL mL inhalation ipratropium-albuterol 20-100 mcg/actuation 1 puff PO QID lancets As directed lancets As directed latanoprost 0.005% drps ophthalmic (eye) linagliptin (Tradjenta) 5 mg PO DAILY iprfwu-awhmgsrs-znmpalr 24,000-76,000 -120,000 unit 1 cap PO TID loratadine 10 mg PO DAILY PRN lorazepam 1 mg PO BID meclizine mg PO montelukast 10 mg PO BEDTIME nifedipine ER 30 mg PO DAILY ondansetron 4 mg PO Q8H PRN polyethylene glycol 3350 grams PO [procrit pt states she receives it weekly ] quetiapine 200 mg PO BEDTIME rabeprazole 20 mg PO DAILY ropinirole 0.25 mg PO BEDTIME sodium chloride 0.65% (Deep Sea Nasal) sprays intranasal Q2H PRN triamcinolone acetonide 0.1% appl topical warfarin 2.5 mg See Protocol PO DAILY Nursing Note INR: 2.4- in therapeutic range of 2-3 Medications and supplements reviewed- no changes No changes in health, diet, medications, or supplements, Denies any signs and symptoms of bleeding or bruising or clotting. Bleeding, bruising, clotting discussed - denies bleeding Nutritional guidance given Dose: 3.75mg x 7 F/U INR: 2 weeks Patient verbalizes understanding of instructions given Coding Level of Care Code Est Patient Level 1 Diagnoses Current use of anticoagulant therapy Z79.01 Results AMB INR Fingerstick AMB INR Fingerstick 2.4 Last Edit by Barbara Lr RN on 05/08/24 08:29 interface delay Assessment & Plan Assessment & Plan (1) Current use of anticoagulant therapy: Code(s): Z79.01 - [facility] (current) use of anticoagulants Category: Medical
[2024-05-08 08:30] LABS: Prothrombin Time Whole Bld POC 28.8 sec (11.1-13.5); ~PT, ~INR - Anti Coag Clinic 2.4 (0.9-1.1)
== END 2024-05-08 08:33 | disposition home or self-care (01) ==
LOC: HO.ACS 08:03
PROVIDERS: PCP Internal Medicine; Visit Provider Internal Medicine
DX: Z79.01 Long term (current) use of anticoagulants (principal)

== ENCOUNTER → 2024-05-08 08:03 | Outpatient (BNVA) | payer OTHER, SELFPAY | PROVIDERS: PCP Internal Medicine; Visit Provider Internal Medicine | DX: Z86.718 Personal history of other venous thrombosis and embolism (principal); Z79.01 Long term (current) use of anticoagulants; Z51.81 Encounter for therapeutic drug level monitoring | CPT/HCPCS: 85610; 99211 ==

== ENCOUNTER 2024-05-30 08:53 | Outpatient (AMB) | payer OTHER, SELFPAY ==
[2024-05-30 09:24] LABS: Prothrombin Time Whole Bld POC 27.8 sec (11.1-13.5); ~PT, ~INR - Anti Coag Clinic 2.3 (0.9-1.1)
--- NOTE | 2024-05-30 09:28 | MHC.OFFVISCO ---
Intake Intake Visit Reasons: Anticoagulation Allergies codeine [Codeine] Allergy (Severe, Verified 05/30/24 09:19) DIFFICULTY BREATHING Penicillins Allergy (Severe, Verified 05/30/24 09:19) RASH penicillin V Allergy (Intermediate, Verified 05/30/24 09:19) RASH tramadol [Ultram] Allergy (Unknown, Verified 05/30/24 09:19) hallucinations Shellfish Allergy (Severe, Uncoded 05/30/24 09:19) THROAT SWELLING Contrast Allergy PreMed Pack Allergy (Unknown, Uncoded 05/30/24 09:19) TREAT WITH BENADRYL ferrlecit Adverse Reaction (Intermediate, Uncoded 05/30/24 09:19) Rash Medication List - Last Reconciled 05/30/24 by Tonia Angeles RN atorvastatin 80 mg PO DAILY blood sugar diagnostic As directed clonidine HCl 0.1 mg PO BID dapagliflozin propanediol (Farxiga) 10 mg PO DAILY diphenhydramine HCl (Banophen) mg PO duloxetine 120 mg PO QAM fluticasone propion-salmeterol 100-50 mcg/dose ea inhalation gabapentin 100 mg PO TID hydrocortisone 2.5% appl topical insulin glargine (Lantus Solostar U-100 Insulin) 10 units subcut QPM ipratropium-albuterol 0.5 mg-3 mg(2.5 mg base)/3 mL mL inhalation ipratropium-albuterol 20-100 mcg/actuation 1 puff PO QID lancets As directed lancets As directed latanoprost 0.005% drps ophthalmic (eye) linagliptin (Tradjenta) 5 mg PO DAILY kjpbxb-tfgpflil-smzewju 24,000-76,000 -120,000 unit 1 cap PO TID loratadine 10 mg PO DAILY PRN lorazepam 1 mg PO BID meclizine mg PO montelukast 10 mg PO BEDTIME nifedipine ER 30 mg PO DAILY ondansetron 4 mg PO Q8H PRN polyethylene glycol 3350 grams PO [procrit pt states she receives it weekly ] quetiapine 200 mg PO BEDTIME rabeprazole 20 mg PO DAILY ropinirole 0.25 mg PO BEDTIME sodium chloride 0.65% (Deep Sea Nasal) sprays intranasal Q2H PRN triamcinolone acetonide 0.1% appl topical warfarin 2.5 mg See Protocol PO DAILY Nursing Note INR: 2.3 in therapeutic range of 2-3 Medications and supplements reviewed No changes in health, diet, medications, or supplements, Denies any signs and symptoms of bleeding or bruising or clotting. Bleeding, bruising, clotting discussed Nutritional guidance given Dose: 3.75mg daily F/U INR: 2 weeks Patient verbalizes understanding of instructions given Coding Level of Care Code Est Patient Level 1 Diagnoses Current use of anticoagulant therapy Z79.01 Assessment & Plan Assessment & Plan (1) Current use of anticoagulant therapy: Code(s): Z79.01 - terminal carman (current) use of anticoagulants Category: Medical
== END 2024-05-30 09:30 | disposition home or self-care (01) ==
LOC: HO.ACS 08:53
PROVIDERS: PCP Internal Medicine; Visit Provider Internal Medicine
DX: Z79.01 Long term (current) use of anticoagulants (principal)

== ENCOUNTER → 2024-05-30 08:53 | Outpatient (BNVA) | payer OTHER, SELFPAY | PROVIDERS: PCP Internal Medicine; Visit Provider Internal Medicine | DX: Z86.718 Personal history of other venous thrombosis and embolism (principal); Z79.01 Long term (current) use of anticoagulants; Z51.81 Encounter for therapeutic drug level monitoring | CPT/HCPCS: 85610; 99211 ==

== ENCOUNTER 2024-06-12 09:11 | Outpatient (AMB) | payer OTHER, SELFPAY ==
[2024-06-12 09:25] LABS: Prothrombin Time Whole Bld POC 15.8 sec (11.1-13.5); ~PT, ~INR - Anti Coag Clinic 1.3 (0.9-1.1)
--- NOTE | 2024-06-12 09:36 | MHC.OFFVISCO ---
Intake Intake Visit Reasons: Anticoagulation Allergies codeine [Codeine] Allergy (Severe, Verified 06/12/24 09:20) DIFFICULTY BREATHING Penicillins Allergy (Severe, Verified 06/12/24 09:20) RASH penicillin V Allergy (Intermediate, Verified 06/12/24 09:20) RASH tramadol [Ultram] Allergy (Unknown, Verified 06/12/24 09:20) hallucinations Shellfish Allergy (Severe, Uncoded 06/12/24 09:20) THROAT SWELLING Contrast Allergy PreMed Pack Allergy (Unknown, Uncoded 06/12/24 09:20) TREAT WITH BENADRYL ferrlecit Adverse Reaction (Intermediate, Uncoded 06/12/24 09:20) Rash Medication List - Last Reconciled 06/12/24 by Tangela Sam RN atorvastatin 80 mg PO DAILY blood sugar diagnostic As directed clonidine HCl 0.1 mg PO BID dapagliflozin propanediol (Farxiga) 10 mg PO DAILY diphenhydramine HCl (Banophen) mg PO duloxetine 120 mg PO QAM fluticasone propion-salmeterol 100-50 mcg/dose ea inhalation gabapentin 100 mg PO TID hydrocortisone 2.5% appl topical insulin glargine (Lantus Solostar U-100 Insulin) 10 units subcut QPM ipratropium-albuterol 0.5 mg-3 mg(2.5 mg base)/3 mL mL inhalation ipratropium-albuterol 20-100 mcg/actuation 1 puff PO QID lancets As directed lancets As directed latanoprost 0.005% drps ophthalmic (eye) linagliptin (Tradjenta) 5 mg PO DAILY rllqit-wqdliclf-sernzun 24,000-76,000 -120,000 unit 1 cap PO TID loratadine 10 mg PO DAILY PRN lorazepam 1 mg PO BID meclizine mg PO montelukast 10 mg PO BEDTIME nifedipine ER 30 mg PO DAILY ondansetron 4 mg PO Q8H PRN polyethylene glycol 3350 grams PO [procrit pt states she receives it weekly ] quetiapine 200 mg PO BEDTIME rabeprazole 20 mg PO DAILY ropinirole 0.25 mg PO BEDTIME sodium chloride 0.65% (Deep Sea Nasal) sprays intranasal Q2H PRN triamcinolone acetonide 0.1% appl topical warfarin 2.5 mg See Protocol PO DAILY Nursing Note INR 1.3 out of therapeutic range Medications and supplements reviewed Patient status: unable to determine why INR low, pt stated 2 days she bent over to pick something up, while leaning over she felt as though she had a sezeizure and fell on top of her head hurting her head and neck - she is more sore today, she can bend her neck down but unable to bring neck up on her own -to pain ful she has to lift it up with her hand, she did not go to ER -stated they do not help me, it was explained that there could be a fracture and she should have it checked - she refused to be brought to the ER. She left [facility] - she was strongly enc that any worsening of symptoms she must go to ER incase of bleed and or risk of any kind of paralysis. PCP called spoke with nurse Catalan- regarding pt status - she will have PCP order a scan or xray for her. Medications or supplements: no change at this time Diet: fair Denies any signs and symptoms of bleeding or clotting or unusual bruising Bleeding, bruising, clotting discussed Nutritional guidance given: avoid foods that can lower the INR Dose: 5mg today and tomorrow F/U INR Date: 06/15/24 ?? Patient verbalizing understanding of instructions given with read back. 1115 f/u call with pt stating her PCP office will be contacting for possible xray or scan Coding Level of Care Code Est Patient Level 1 Diagnoses Current use of anticoagulant therapy Z79.01 Assessment & Plan Assessment & Plan (1) Current use of anticoagulant therapy: Code(s): Z79.01 - penitentiary (current) use of anticoagulants Category: Medical
--- OUTSIDE RECORDS SUMMARY | 2024-06-12 13:29 | XMS_ITS | Encounter Summary ---
Author Organization [facility] Address [address] [place] [address] Phone Care Team Providers Care Bobcat Operator Name Role Phone Sahra Son MD Primary Care Provider + Encounter Details Date Type Department Care Team (Late Contact Info) Description 06/18/2021 Documentation Only [facility] [address] [place] [address] India Davalos [address] [place] [address] Social History Tobacco Use Types Packs/Day Years Used Date Smoking Tobacco: Every Day Cigarettes Alcohol Use Standard Drinks/Week Comments No 0 (1 standard drink = 0.6 oz pur e alcohol) Comments Unknown Sex and Gender Information Value Date Recorded Sex Assigned at Not on file Legal Sex Female 4:34 PM EST Gender Identity Not on file Sexual Orientation Not on file documented as of this encounter Plan of Treatment Upcoming Encounters Date Type Department Care Team (Late Contact Info) Description 07/04/2024 2:30 PM EST Office Visit [facility] [address] [place] [address] Juan Jose Li MD [address] [place] [address] [place] [address] documented as of this encounter Visit Diagnoses Not on filedocumented in this encounter Care Teams Bobcat Operator Relationship Specialty Start Date End Date Sahra Son MD [address] [id number] PCP - General Internal Medicine 10/28/22 documented as of this encounter
--- OUTSIDE RECORDS SUMMARY | 2024-06-12 13:30 | XMS_ITS | Encounter Summary ---
Author Organization [facility] Address [address] [place] [address] Phone Care Team Providers Care Manager Eligibility Name Role Phone Sahra Son MD Primary Care Provider + Encounter Details Date Type Department Care Team (Late Contact Info) Description 01/31/2024 Orders Only [facility] [address] [place] [address] Arlene Alston PA [address] [place] [address] [place] [address] Chronic kidney disease, stage 2 (mild); Essential (primary) hypertension; Iron deficiency anemia, not otherwise specified; Type 2 diabetes mellitus, not otherwise specified (HCC); Antiphospholipid syndrome (HCC) Social History Tobacco Use Types Packs/Day Years [...] Encounters Date Type Department Care Team (Late st Contact Info) Description 07/04/2024 2:30 PM EST Office Visit [facility] [address] [place] [address] Juan Jose Li MD [address] [place] [address] [place] [address] documented as of this encounter Visit Diagnoses Diagnosis Chronic kidney disease, stage 2 (mild) Essential (primary) hypertension Iron deficiency anemia, not otherwise specified Type 2 diabetes mellitus, not otherwise specified (HCC) Antiphospholipid syndrome (HCC) documented in this encounter Care Teams Manager Eligibility Relationship Specialty Start Date End Date Sahra Son MD [address] [address] PCP - General Internal Medicine 10/28/22 documented as of this encounter
--- OUTSIDE RECORDS SUMMARY | 2024-06-12 13:30 | XMS_ITS | Encounter Summary ---
Author Organization [facility] Address [address] [place] [address] Phone Care Team Providers Care Visual Developer Name Role Phone Sahra Son MD Primary Care Provider + Encounter Details Date Type Department Care Team (Late Contact Info) Description 08/11/2022 Documentation Only [facility] [address] [place] [address] India Davalos [address] [place] [address] Social History Tobacco Use Types [...] Visit [facility] [address] [place] [address] Juan Jose Li MD [address] [place] [address] [place] [address] documented as of this encounter Visit Diagnoses Not on filedocumented in this encounter Care Teams Visual Developer Relationship Specialty Start Date End Date Sahra Son MD [address] [phone] PCP - General Internal Medicine 10/28/22 documented as of this encounter
--- OUTSIDE RECORDS SUMMARY | 2024-06-12 13:30 | XMS_ITS | Encounter Summary ---
Author Organization [facility] Address [address] [place] [address] Phone Care Team Providers Care Incident Response Analyst Name Role Phone Sahra Son MD Primary Care Provider + Encounter Details Date Type Department Care Team ([facility] Contact Info) Description 09/28/2022 Documentation Only [facility] [address] [place] [address] India Davalos [address] [place] [address] Social History Tobacco Use Types [...] Visit [facility] [address] [place] [address] Juan Jose Li MD [address] [place] [address] [place] [address] documented as of this encounter Visit Diagnoses Not on filedocumented in this encounter Care Teams Incident Response Analyst Relationship Specialty Start Date End Date Sahra Son MD [address] [phone] PCP - General Internal Medicine 10/28/22 documented as of this encounter
--- OUTSIDE RECORDS SUMMARY | 2024-06-12 13:30 | XMS_ITS | Encounter Summary ---
Author Organization [facility] Address [address] [place] [address] Phone Care Team Providers Care Principal Clerk Name Role Phone Sahra Son MD Primary Care Provider + Encounter Details Date Type Department Care Team ([facility] Contact Info) Description 01/06/2022 Documentation Only [facility] [address] [place] [address] Juan Jose Li MD [address] [place] [address] [place] [address] Social History Tobacco Use Types Packs/Day Years [...] Visit [facility] [address] [place] [address] Juan Jose Li MD [address] [place] [address] [place] [address] documented as of this encounter Visit Diagnoses Not on filedocumented in this encounter Care Teams Principal Clerk Relationship Specialty Start Date End Date Sahra Son MD [address] [address] PCP - General Internal Medicine 10/28/22 documented as of this encounter
--- OUTSIDE RECORDS SUMMARY | 2024-06-12 13:30 | XMS_ITS | Encounter Summary ---
Author Organization [facility] Address [address] [place] [address] Phone Care Team Providers Care Skip Tender Name Role Phone Sahra Son MD Primary Care Provider + Encounter Details Date Type Department Care Team (Late Contact Info) Description 08/11/2022 Documentation Only [facility] [address] [place] [address] India Davalos [address] [place] [address] Social History Tobacco Use Types [...] Visit [facility] [address] [place] [address] Juan Jose Li MD [address] [place] [address] [place] [address] documented as of this encounter Visit Diagnoses Not on filedocumented in this encounter Care Teams Skip Tender Relationship Specialty Start Date End Date Sahra Son MD [address] [phone] PCP - General Internal Medicine 10/28/22 documented as of this encounter
--- OUTSIDE RECORDS SUMMARY | 2024-06-12 13:30 | XMS_ITS | Encounter Summary ---
Author Organization [facility] Address [address] [place] [address] Phone Care Team Providers Care Physical Science Professor Name Role Phone Sahra Son MD Primary Care Provider + Encounter Details Date Type Department Care Team ([facility] Contact Info) Description 11/05/2023 Documentation Only [facility] [address] [place] [address] India Davalos [address] [place] [address] Social History Tobacco Use Types [...] Visit [facility] [address] [place] [address] Juan Jose Li MD [address] [place] [address] [place] [address] documented as of this encounter Visit Diagnoses Not on filedocumented in this encounter Care Teams Physical Science Professor Relationship Specialty Start Date End Date Sahra Son MD [address] [phone] PCP - General Internal Medicine 10/28/22 documented as of this encounter
--- OUTSIDE RECORDS SUMMARY | 2024-06-12 13:30 | XMS_ITS | Encounter Summary ---
Author Organization [facility] Address [address] [place] [address] Phone Care Team Providers Care Laborer [employer]cing [employer] Name Role Phone Sahra Son MD Primary Care Provider + Encounter Details Date Type Department Care Team ([facility] Contact Info) Description 09/28/2022 Documentation Only [facility] [address] [place] [address] India Davalos [address] [place] [address] Social History Tobacco Use Types [...] Visit [facility] [address] [place] [address] Juan Jose Li MD [address] [place] [address] [place] [address] documented as of this encounter Visit Diagnoses Not on filedocumented in this encounter Care Teams Laborer [employer] Relationship Specialty Start Date End Date Sahra Son MD [address] [phone] PCP - General Internal Medicine 10/28/22 documented as of this encounter
--- OUTSIDE RECORDS SUMMARY | 2024-06-12 13:30 | XMS_ITS | Encounter Summary ---
Author Organization [facility] Address [address] [place] [address] Phone Care Team Providers Care Assembler Brazer Name Role Phone Sahra Son MD Primary Care Provider + Encounter Details Date Type Department Care Team ([facility] Contact Info) Description 11/11/2023 Documentation Only [facility] [address] [place] [address] India Davalos [address] [place] [address] Social History Tobacco Use Types [...] Visit [facility] [address] [place] [address] Juan Jose Li MD [address] [place] [address] [place] [address] documented as of this encounter Visit Diagnoses Not on filedocumented in this encounter Care Teams Assembler Brazer Relationship Specialty Start Date End Date Sahra Son MD [address] [phone] PCP - General Internal Medicine 10/28/22 documented as of this encounter
--- OUTSIDE RECORDS SUMMARY | 2024-06-12 13:30 | XMS_ITS | Encounter Summary ---
Author Organization [facility] Address [address] [place] [address] Phone Care Team Providers Care Planner Internship Name Role Phone Sahra Son MD Primary Care Provider + Encounter Details Date Type Department Care Team (Late Contact Info) Description 04/05/2024 Documentation Only [facility] [address] [place] [address] India Davalos [address] [place] [address] Social History Tobacco Use Types [...] Visit [facility] [address] [place] [address] Juan Jose Li MD [address] [place] [address] [place] [address] documented as of this encounter Visit Diagnoses Not on filedocumented in this encounter Care Teams Planner Internship Relationship Specialty Start Date End Date Sahra Son MD [address] [phone] PCP - General Internal Medicine 10/28/22 documented as of this encounter
--- OUTSIDE RECORDS SUMMARY | 2024-06-12 13:30 | XMS_ITS | Encounter Summary ---
Author Organization [facility] Address [address] [place] [address] Phone Care Team Providers Care Tearoom Host/Hostess Name Role Phone Sahra Son MD Primary Care Provider + Encounter Details Date Type Department Care Team (Late Contact Info) Description 03/23/2024 Documentation Only [facility] [address] [place] [address] India Davalos [address] [place] [address] Social History Tobacco Use Types [...] [facility] [address] [place] [address] uJan Jose Li MD [address] [place] [address] [place] [address] documented as of this encounter Visit Diagnoses Not on filedocumented in this encounter Care Teams Tearoom Host/Hostess Relationship Specialty Start Date End Date Sahra Son MD [address] [phone] PCP - General Internal Medicine 10/28/22 documented as of this encounter
--- OUTSIDE RECORDS SUMMARY | 2024-06-12 13:30 | XMS_ITS | Encounter Summary ---
Author Organization [facility] Address [address] [place] [address] Phone Care Team Providers Care Office Machines Wirer Name Role Phone Sahra Son MD Primary Care Provider + Encounter Details Date Type Department Care Team ([facility] Contact Info) Description 11/11/2023 Documentation Only [facility] [address] [place] [address] India Davalos [address] [place] [address] Social History Tobacco Use Types [...] Visit [facility] [address] [place] [address] Juan Jose Li MD [address] [place] [address] [place] [address] documented as of this encounter Visit Diagnoses Not on filedocumented in this encounter Care Teams Office Machines Wirer Relationship Specialty Start Date End Date Sahra Son MD [address] [phone] PCP - General Internal Medicine 10/28/22 documented as of this encounter
--- OUTSIDE RECORDS SUMMARY | 2024-06-12 13:30 | XMS_ITS | Encounter Summary ---
Author Organization [facility], Address [address] [place] [address] Phone Care Team Providers Care Brand Activation Manager Name Role Phone Sahra Son MD Primary Care Provider + Reason for Visit * Reason Onset Date Comments lab reminder 06/05/2024 Encounter Details Date Type Department Care Team (Late st Contact Info) Description 06/05/2024 Telephone [facility] [address] [place] [address] Stephanie Azul, LAURITA [address] [place] [address] [place] [address] lab reminder Social History Tobacco Use Types Packs/Day Years [...] on file documented as of this encounter Miscellaneous Notes * Telephone Encounter - Stephanie Azul RN - 06/05/2024 2:31 PM EST Received message from Lexi at [facility] infusion (community mental health worker). Lexi reports that pt no showed on 06/01/24. Her next appt is 06/09/24. Pt last had labs drawn on 06/05/24. I left message on Jennifer's phone to get labs drawn by 06/07/24. documented in this encounter Plan of Treatment Upcoming Encounters Date Type Department Care Team (Late st Contact Info) Description 07/04/2024 2:30 PM EST Office Visit [facility] [place], [address] [place] [address] Juan Jose Li MD [address] [place] [address] [place] [address] documented as of this encounter Visit Diagnoses Not on filedocumented in this encounter Care Teams Brand Activation Manager Relationship Specialty Start Date End Date Sahra Son MD [address] [address] PCP - General Internal Medicine 10/28/22 documented as of this encounter
--- OUTSIDE RECORDS SUMMARY | 2024-06-12 13:30 | XMS_ITS | Encounter Summary ---
Author Organization [facility] Address [address] [place] [address] Phone Care Team Providers Care Quotation Clerk Name Role Phone Sahra Son MD Primary Care Provider + Encounter Details Date Type Department Care Team (Late Contact Info) Description 04/28/2024 Orders Only [facility] [address] [place] [address] India Davalos [address] [place] [address] Chronic kidney disease, stage 2 (mild); Anemia in chronic kidney disease; Iron deficiency anemia, not otherwise specified Social History Tobacco Use Types Packs/Day Years [...] Visit [facility] [address] [place] [address] Juan Jose Li MD [address] [place] [address] [place] [address] documented as of this encounter Procedures Procedure Name Priority Date/Time Associated Diagnosis Comments IRON PANEL (FE, TIBC, TSAT) Routine 05/05/2024 9:18 AM EST Chronic kidney disease, stage 2 (mild) Anemia in chronic kidney disease Iron deficiency anemia, not otherwise specified CBC AND DIFFERENTIAL Routine 05/05/2024 9:18 AM EST Chronic kidney disease, stage 2 (mild) Anemia in chronic kidney disease Iron deficiency anemia, not otherwise specified FERRITIN Routine 05/05/2024 9:18 AM EST Chronic kidney disease, stage 2 (mild) Anemia in chronic kidney disease Iron deficiency anemia, not otherwise specified RENAL FUNCTION PANEL Routine 05/05/2024 9:18 AM EST Chronic kidney disease, stage 2 (mild) Anemia in chronic kidney disease Iron deficiency anemia, not otherwise specified documented in this encounter Results * (ABNORMAL) Renal Function Panel (05/05/2024 9:18 AM EST) Glucose 153(H) 70 - 99 mg/dL [facility] BUN 17 8 - 27 mg/dL [facility] Creatinine 0.98 0.57 - 1.00 mg/dL [facility] eGFR CKD-EPI CR 2020 64 >59 mL/min/1.7 3 [facility] BUN/Creatinine Ratio 17 12 - 28 [facility] Sodium 142 134 - 144 mmol/L [facility] Potassium 5.0 3.5 - 5.2 mmol/L [facility] Chloride 106 96 - 106 mmol/L [facility] Bicarbonate (CO2) 23 20 - 29 mmol/L [facility] Calcium 8.9 8.7 - 10.3 mg/dL [facility] Albumin 3.9 3.9 - 4.9 g/dL [facility] Phosphorus 3.9 3.0 - 4.3 mg/dL [facility] Blood (Blood, Venous) 05/05/2024 9:18 AM EST 05/05/2024 Barry Reyes MD LAB BLOOD ORDERABLES Final Re sult Performing Organization Address City/[facility]/ZIP Co de Phone Number [facility] [address] [place] [address] * (ABNORMAL) Ferritin (05/05/2024 9:18 AM EST) Ferritin 282(H) 15 - 150 ng/mL [facility] Blood (Blood, Venous) 05/05/2024 9:18 AM EST 05/05/2024 Barry Reyes MD LAB BLOOD ORDERABLES Final Re sult Performing Organization Address City/[facility] de Phone Number [facility] [address] [place] [address] * Iron Panel (Fe, TIBC, TSAT) (05/05/2024 9:18 AM EST) TIBC 277 250 - 450 ug/dL [facility] UIBC 210 118 - 369 ug/dL [facility] Iron 67 27 - 139 ug/dL [facility] Iron Saturation (TSat) 24 15 - 55 % [facility] Blood (Blood, Venous) 05/05/2024 9:18 AM EST 05/05/2024 Barry Reyes MD LAB BLOOD ORDERABLES Final Re sult Performing Organization Address City/[facility]/ZIP Co de Phone Number [facility] [address] [place] [address] * (ABNORMAL) CBC and Differential (05/05/2024 9:18 AM EST) [facility] [address] WBC 5.6 3.4 - 10.8 x10E3/uL [facility] RBC 5.33(H) 3.77 - 5.28 x10E6/uL [facility] Hemoglobin 10.2(L) 11.1 - 15.9 g/dL [facility] Hematocrit 35.0 34.0 - 46.6 % [facility] MCV 66(L) 79 - 97 fL [facility] MCH 19.1(L) 26.6 - 33.0 pg [facility] MCHC 29.1(L) 31.5 - 35.7 g/dL [facility] RDW 20.1(H) 11.7 - 15.4 % [facility] Platelets 163 150 - 450 x10E3/uL [facility] Neutrophils Relative 64 Not Estab. % [facility] Lymphocytes Relative 26 Not Estab. % [facility] Monocytes 6 Not Estab. % [facility] Eosinophils Relative 3 Not Estab. % [facility] Basophils Relative 1 Not Estab. % [facility] Neutrophils Absolute 3.6 1.4 - 7.0 x10E3/uL [facility] Lymphocytes Absolute 1.5 0.7 - 3.1 x10E3/uL [facility] Monocytes Absolute 0.3 0.1 - 0.9 x10E3/uL [facility] Eosinophils Absolute 0.2 0.0 - 0.4 x10E3/uL [facility] Basophils Absolute 0.0 0.0 - 0.2 x10E3/uL [facility] Immature Granulocytes 0 Not Estab. % [facility] Immature Grans (Absolute) 0.0 0.0 - 0.1 x10E3/uL [facility] Blood (Blood, Venous) 05/05/2024 9:18 AM EST 05/05/2024 us Barry Reyes MD LAB BLOOD ORDERABLES Final Re sult [facility] [address] [place] [address] documented in this encounter Visit Diagnoses Diagnosis Chronic kidney disease, stage 2 (mild) Anemia in chronic kidney disease Iron deficiency anemia, not otherwise specified documented in this encounter Care Teams Quotation Clerk Relationship Specialty [place] [address] [place] [id number] PCP - General Internal Medicine 10/28/22 documented as of this encounter
--- OUTSIDE RECORDS SUMMARY | 2024-06-12 13:30 | XMS_ITS | Encounter Summary ---
Author Organization [facility] Address [address] [place] [address] Phone Care Team Providers Care Electronic Technician Name Role Phone Sahra Son MD Primary Care Provider + Encounter Details Date Type Department Care Team (Late Contact Info) Description 06/09/2024 Orders Only [facility] [address] [place] [address] India Davalos [address] [place] [address] Anemia in chronic kidney disease; Other iron deficiency anemia; Chronic kidney disease, stage 2 (mild) Social History Tobacco Use Types Packs/Day Years [...] Visit [facility] [address] [place] [address] Juan Jose Li MD [address] [place] [address] documented as of this encounter Visit Diagnoses Diagnosis Anemia in chronic kidney disease Other iron deficiency anemia Chronic kidney disease, stage 2 (mild) documented in this encounter Care Teams Electronic Technician Relationship Specialty Start Date End Date Cherella, Sahra M, MD [address] [place] [address] PCP - General Internal Medicine 10/28/22 documented as of this encounter
--- OUTSIDE RECORDS SUMMARY | 2024-06-12 13:30 | XMS_ITS | Encounter Summary ---
Author Organization [facility] Address [address] [place] [address] Phone Care Team Providers Care Seed Sorter Name Role Phone Sahra Son MD Primary Care Provider + Encounter Details Date Type Department Care Team ([facility] Contact Info) Description 11/11/2023 Documentation Only [facility] [address] [place] [address] India Davalos [address] [place] [address] Social History Tobacco Use Types [...] Visit [facility] [address] [place] [address] Juan Jose Li MD [address] [place] [address] [place] [address] documented as of this encounter Visit Diagnoses Not on filedocumented in this encounter Care Teams Seed Sorter Relationship Specialty Start Date End Date Sahra Son MD [address] [id number] PCP - General Internal Medicine 10/28/22 documented as of this encounter
--- OUTSIDE RECORDS SUMMARY | 2024-06-12 13:30 | XMS_ITS | Encounter Summary ---
Author Organization [facility] Address [address] [place] [address] Phone Care Team Providers Care Industrial Arts Teacher Name Role Phone Sahra Son MD Primary Care Provider + Encounter Details Date Type Department Care Team ([facility] Contact Info) Description 04/14/2022 Documentation Only [facility] [address] [place] [address] India Dvaalos [address] [place] [address] Social History Tobacco Use Types [...] Visit [facility] [address] [place] [address] Juan Jose Li MD [address] [place] [address] [place] [address] documented as of this encounter Visit Diagnoses Not on filedocumented in this encounter Care Teams Industrial Arts Teacher Relationship Specialty Start Date End Date Sahra Son MD [address] [phone] PCP - General Internal Medicine 10/28/22 documented as of this encounter
--- OUTSIDE RECORDS SUMMARY | 2024-06-12 13:30 | XMS_ITS | Encounter Summary ---
Author Organization [facility] Address [address] [place] [address] Phone Care Team Providers Care Grazing Aide Name Role Phone Sahra Son MD Primary Care Provider + Encounter Details Date Type Department Care Team (Late Contact Info) Description 06/22/2022 Documentation Only [facility] [address] [place] [address] India Davalos [address] [place] [address] Social History Tobacco Use Types [...] [facility] [address] [place] [address] Juan Jose Li MD [address] [place] [address] [place] [address] documented as of this encounter Visit Diagnoses Not on filedocumented in this encounter Care Teams Grazing Aide Relationship Specialty Start Date End Date Sahra Son MD [address] [phone] PCP - General Internal Medicine 10/28/22 documented as of this encounter
--- OUTSIDE RECORDS SUMMARY | 2024-06-12 13:30 | XMS_ITS | Encounter Summary ---
Author Organization [facility] Address [address] [place] [address] Phone Care Team Providers Care Breast Buffer Name Role Phone Sahra Son MD Primary Care Provider + Encounter Details Date Type Department Care Team (Late Contact Info) Description 03/03/2024 Orders Only [facility] [address] [place] [address] India Davalos [address] [place] [address] Chronic kidney disease, stage 2 [...] Visit [facility] [address] [place] [address] Juan Jose Li MD [address] [place] [address] [place] [address] documented as of this encounter Procedures Procedure Name Priority Date/Time Associated Diagnosis Comments IRON PANEL (FE, TIBC, TSAT) Routine 03/24/2024 10:37 AM EST Chronic kidney disease, stage 2 (mild) Anemia in chronic kidney disease Iron deficiency anemia, not otherwise specified CBC AND DIFFERENTIAL Routine 03/24/2024 10:37 AM EST Chronic kidney disease, stage 2 (mild) Anemia in chronic kidney disease Iron deficiency anemia, not otherwise specified FERRITIN Routine 03/24/2024 10:37 AM EST Chronic kidney disease, stage 2 (mild) Anemia in chronic kidney disease Iron deficiency anemia, not otherwise specified RENAL FUNCTION PANEL Routine 03/24/2024 10:37 AM EST Chronic kidney disease, stage 2 (mild) Anemia in chronic kidney disease Iron deficiency anemia, not otherwise specified documented in this encounter Results * (ABNORMAL) Renal Function Panel (03/24/2024 10:37 AM EST) Glucose 152(H) 70 - 99 mg/dL [facility] BUN 16 8 - 27 mg/dL [facility] Creatinine 0.98 0.57 - 1.00 mg/dL [facility] eGFR CKD-EPI CR 2020 64 >59 mL/min/1.7 3 [facility] BUN/Creatinine Ratio 16 12 - 28 [facility] Sodium 137 134 - 144 mmol/L [facility] Potassium 4.8 3.5 - 5.2 mmol/L [facility] Chloride 101 96 - 106 mmol/L [facility] Bicarbonate (CO2) 22 20 - 29 mmol/L [facility] Calcium 8.8 8.7 - 10.3 mg/dL [facility] Albumin 4.0 3.9 - 4.9 g/dL [facility] Phosphorus 4.0 3.0 - 4.3 mg/dL [facility] Blood (Blood, Venous) 03/24/2024 10:37 AM EST 03/24/2024 Barry Reyes MD LAB BLOOD ORDERABLES Final Re sult Performing Organization Address City/[facility]/ZIP Co de Phone Number [facility] [address] [place] [address] * Ferritin (03/24/2024 10:37 AM EST) Ferritin 37 15 - 150 ng/mL [facility] Blood (Blood, Venous) 03/24/2024 10:37 AM EST 03/24/2024 Barry Reyes MD LAB BLOOD ORDERABLES Final Re sult Performing Organization Address [facility] de Phone Number [facility] [address] [place] [address] * Iron Panel (Fe, TIBC, TSAT) (03/24/2024 10:37 AM EST) TIBC 293 250 - 450 ug/dL [facility] UIBC 247 118 - 369 ug/dL [facility] Iron 46 27 - 139 ug/dL [facility] Iron Saturation (TSat) 16 15 - 55 % [facility] Blood (Blood, Venous) 03/24/2024 10:37 AM EST 03/24/2024 Barry Reyes MD LAB BLOOD ORDERABLES Final Re sult Performing Organization Address City/[facility]/ZIP Co de Phone Number [facility] [address] [place] [address] * (ABNORMAL) CBC and Differential (03/24/2024 10:37 AM EST) [facility] Signature WBC 6.0 3.4 - 10.8 x10E3/uL [facility] RBC 5.21 3.77 - 5.28 x10E6/uL [facility] Hemoglobin 10.0(L) 11.1 - 15.9 g/dL [facility] Hematocrit 35.3 34.0 - 46.6 % [facility] MCV 68(L) 79 - 97 fL [facility] MCH 19.2(L) 26.6 - 33.0 pg [facility] MCHC 28.3(L) 31.5 - 35.7 g/dL [facility] RDW 19.4(H) 11.7 - 15.4 % [facility] Platelets 186 150 - 450 x10E3/uL [facility] Neutrophils Relative 65 Not Estab. % [facility] Lymphocytes Relative 26 Not Estab. % [facility] Monocytes 6 Not Estab. % [facility] Eosinophils Relative 2 Not Estab. % [facility] Basophils Relative 1 Not Estab. % [facility] Neutrophils Absolute 3.9 1.4 - 7.0 x10E3/uL [facility] Lymphocytes Absolute 1.5 0.7 - 3.1 x10E3/uL [facility] Monocytes Absolute 0.3 0.1 - 0.9 x10E3/uL [facility] Eosinophils Absolute 0.1 0.0 - 0.4 x10E3/uL [facility] Basophils Absolute 0.0 0.0 - 0.2 x10E3/uL [facility] Immature Granulocytes 0 Not Estab. % [facility] Immature Grans (Absolute) 0.0 0.0 - 0.1 x10E3/uL [facility] Blood (Blood, Venous) 03/24/2024 10:37 AM EST 03/24/2024 us Barry Reyes MD LAB BLOOD ORDERABLES Final Re sult [facility] [address] [place] [address] documented in this encounter Visit Diagnoses Diagnosis Chronic kidney disease, stage 2 (mild) Anemia in chronic kidney disease Iron deficiency anemia, not otherwise specified documented in this encounter Care Teams Breast Buffer Relationship Specialty Start Date End Date Sahra Son MD [address] [place] [id number] PCP - General Internal Medicine 10/28/22 documented as of this encounter
--- OUTSIDE RECORDS SUMMARY | 2024-06-12 13:30 | XMS_ITS | Encounter Summary ---
Author Organization [facility] Address [address] [place] [address] Phone Care Team Providers Care Secretarial Teacher Name Role Phone Sahra Son MD Primary Care Provider + Encounter Details Date Type Department Care Team (Late Contact Info) Description 03/31/2024 Orders Only [facility] [address] [place] [address] India Davalos [address] [place] [address] Chronic kidney disease, stage 2 [...] Visit [facility] [address] [place] [address] Juan Jose Li MD [address] [place] [address] [place] [address] documented as of this encounter Visit Diagnoses Diagnosis Chronic kidney disease, stage 2 (mild) Anemia in chronic kidney disease Iron deficiency anemia, not otherwise specified documented in this encounter Care Teams Secretarial Teacher Relationship Specialty Start Date End Date Sahra Son MD [address] [place] [address] PCP - General Internal Medicine 10/28/22 documented as of this encounter
--- OUTSIDE RECORDS SUMMARY | 2024-06-12 13:30 | XMS_ITS | Encounter Summary ---
Author Organization [facility] Address [address] [place] [address] Phone Care Team Providers Care Glove Examiner Name Role Phone Sahra Son MD Primary Care Provider + Encounter Details Date Type Department Care Team (Late Contact Info) Description 11/30/2023 Documentation Only [facility] [address] [place] [address] India Davalos [address] [place] [address] Social History Tobacco Use Types [...] Visit [facility] [address] [place] [address] Juan Jose Li MD [address] [place] [address] [place] [address] documented as of this encounter Visit Diagnoses Not on filedocumented in this encounter Care Teams Glove Examiner Relationship Specialty Start Date End Date Sahra Son MD [address] [phone] PCP - General Internal Medicine 10/28/22 documented as of this encounter
--- OUTSIDE RECORDS SUMMARY | 2024-06-12 13:30 | XMS_ITS | Encounter Summary ---
Author Organization [facility] Address [address] [place] [address] Phone Care Team Providers Care Building Inspector Name Role Phone Sahra Son MD Primary Care Provider + Encounter Details Date Type Department Care Team ([facility] Contact Info) Description 05/01/2024 Telephone [facility] [address] [place] [address] Olesya Han [address] [place] [address] Social History Tobacco Use Types [...] Upcoming Encounters Date Type Department Care Team ([facility] Contact Info) Description 07/04/2024 2:30 PM EST Office Visit [facility] [address] [place] [address] Juan Jose Li MD [address] [place] [address] [place] [address] documented as of this encounter Visit Diagnoses Not on filedocumented in this encounter Care Teams Building Inspector Relationship Specialty Start Date End Date Sahra Son MD [address] [phone] PCP - General Internal Medicine 10/28/22 documented as of this encounter
--- OUTSIDE RECORDS SUMMARY | 2024-06-12 13:30 | XMS_ITS | Encounter Summary ---
Author Organization [facility] Address [address] [place] [address] Phone Care Team Providers Care Social Services Aide Name Role Phone Sahra Son MD Primary Care Provider + Encounter Details Date Type Department Care Team (Late Contact Info) Description 06/30/2020 Orders Only [facility] [address] [place] [address] Carol Whelan [address] [place] [address] Iron deficiency anemia, not otherwise specified; Chronic kidney disease, Stage II (mild) Social History Tobacco Use Types Packs/Day Years Used Date Smoking Tobacco: Every Day Alcohol Use Standard Drinks/Week Comments No 0 [...] Visit [facility] [address] [place] [address] Juan Jose Li MD [address] [place] [address] documented as of this encounter Visit Diagnoses Diagnosis Iron deficiency anemia, not otherwise specified Chronic kidney disease, Stage II (mild) documented in this encounter Care Teams Social Services Aide Relationship Specialty Start Date End Date Sahra Son MD [address] [place] [address] PCP - General Internal Medicine 10/28/22 documented as of this encounter
--- OUTSIDE RECORDS SUMMARY | 2024-06-12 13:30 | XMS_ITS | Encounter Summary ---
Author Organization [facility] Address [address] [place] [address] Phone Care Team Providers Care Florist Manager Name Role Phone Sahra Son MD Primary Care Provider + Encounter Details Date Type Department Care Team ([facility] Contact Info) Description 11/11/2023 Documentation Only [facility] [address] [place] [address] India Davalos [address] [place] [address] Social History Tobacco Use Types [...] Visit [facility] [address] [place] [address] Juan Jose Li MD [address] [place] [address] [place] [address] documented as of this encounter Visit Diagnoses Not on filedocumented in this encounter Care Teams Florist Manager Relationship Specialty Start Date End Date Sahra Son MD [address] [phone] PCP - General Internal Medicine 10/28/22 documented as of this encounter
--- OUTSIDE RECORDS SUMMARY | 2024-06-12 13:30 | XMS_ITS | Encounter Summary ---
Author Organization [facility] Address [address] [place] [address] Phone Care Team Providers Care Buyer Agent Name Role Phone Sahra Son MD Primary Care Provider + Encounter Details Date Type Department Care Team ([facility] Contact Info) Description 12/31/2023 Documentation Only [facility] [address] [place] [address] India Davalos [address] [place] [address] Social History Tobacco Use Types [...] Visit [facility] [address] [place] [address] Juan Jose Li MD [address] [place] [address] [place] [address] documented as of this encounter Visit Diagnoses Not on filedocumented in this encounter Care Teams Buyer Agent Relationship Specialty Start Date End Date Sahra Son MD [address] [phone] PCP - General Internal Medicine 10/28/22 documented as of this encounter
--- OUTSIDE RECORDS SUMMARY | 2024-06-12 13:30 | XMS_ITS | Encounter Summary ---
Author Organization [facility] Address [address] [place] [address] Phone Care Team Providers Care Death Claim Examiner Name Role Phone Sahra Son MD Primary Care Provider + Encounter Details Date Type Department Care Team ([facility] Contact Info) Description 09/28/2022 Documentation Only [facility] [address] [place] [address] India Davalos [address] [place] [address] Social History Tobacco Use Types [...] [facility] [address] [place] [address] Juan Jose Li MD [address] [place] [address] [place] [address] documented as of this encounter Visit Diagnoses Not on filedocumented in this encounter Care Teams Death Claim Examiner Relationship Specialty Start Date End Date Sahra Son MD [address] [phone] PCP - General Internal Medicine 10/28/22 documented as of this encounter
--- OUTSIDE RECORDS SUMMARY | 2024-06-12 13:30 | XMS_ITS | Encounter Summary ---
Author Organization [facility] Address [address] [place] [address] Phone Care Team Providers Care Planting Material Carrier Name Role Phone Sahra Son MD Primary Care Provider + Encounter Details Date Type Department Care Team (Late Contact Info) Description 02/04/2024 Orders Only [facility] [address] [place] [address] India Davalos [address] [place] [address] Chronic kidney disease, stage 2 [...] [facility] [address] [place] [address] Juan Jose Li MD [address] [place] [address] [place] [address] documented as of this encounter Procedures Procedure Name Priority Date/Time Associated Diagnosis Comments IRON PANEL (FE, TIBC, TSAT) Routine 02/22/2024 8:29 AM EDT Chronic kidney disease, stage 2 (mild) Anemia in chronic kidney disease Iron deficiency anemia, not otherwise specified CBC AND DIFFERENTIAL Routine 02/22/2024 8:29 AM EDT Chronic kidney disease, stage 2 (mild) Anemia in chronic kidney disease Iron deficiency anemia, not otherwise specified FERRITIN Routine 02/22/2024 8:29 AM EDT Chronic kidney disease, stage 2 (mild) Anemia in chronic kidney disease Iron deficiency anemia, not otherwise specified RENAL FUNCTION PANEL Routine 02/22/2024 8:29 AM EDT Chronic kidney disease, stage 2 (mild) Anemia in chronic kidney disease Iron deficiency anemia, not otherwise specified documented in this encounter Results * (ABNORMAL) Renal Function Panel (02/22/2024 8:29 AM EDT) Glucose 169(H) 70 - 99 mg/dL [facility] BUN 16 8 - 27 mg/dL [facility] Creatinine 1.00 0.57 - 1.00 mg/dL [facility] eGFR CKD-EPI CR 2020 63 >59 mL/min/1.7 3 [facility] BUN/Creatinine Ratio 16 12 - 28 [facility] Sodium 138 134 - 144 mmol/L [facility] Potassium 4.8 3.5 - 5.2 mmol/L [facility] Chloride 100 96 - 106 mmol/L [facility] Bicarbonate (CO2) 22 20 - 29 mmol/L [facility] Calcium 9.1 8.7 - 10.3 mg/dL [facility] Albumin 4.1 3.9 - 4.9 g/dL [facility] Phosphorus 4.2 3.0 - 4.3 mg/dL [facility] Blood (Blood, Venous) 02/22/2024 8:29 AM EDT 02/22/2024 Barry Reyes MD LAB BLOOD ORDERABLES Final Re sult Performing Organization Address City/[facility]/ZIP Co de [facility] Number [facility] [address] [place] [address] * Ferritin (02/22/2024 8:29 AM EDT) Ferritin 47 15 - 150 ng/mL [facility] Blood (Blood, Venous) 02/22/2024 8:29 AM EDT 02/22/2024 Barry Reyes MD LAB BLOOD ORDERABLES Final Re sult Performing Organization Address [facility] de Phone Number [facility] [address] [place] [address] * (ABNORMAL) Iron Panel (Fe, TIBC, TSAT) (02/22/2024 8:29 AM EDT) Iron 39 27 - 139 ug/dL [facility] TIBC 310 250 - 450 ug/dL [facility] UIBC 271 118 - 369 ug/dL [facility] Iron Saturation (TSat) 13(L) 15 - 55 % [facility] Blood (Blood, Venous) 02/22/2024 8:29 AM EDT 02/22/2024 Barry Reyes MD LAB BLOOD ORDERABLES Final Re sult Performing Organization Address [facility]/ZIP Co de [facility] Number [facility] [address] [place] [address] * (ABNORMAL) CBC and Differential (02/22/2024 8:29 AM EDT) WBC 5.9 3.4 - 10.8 x10E3/uL [facility] RBC 5.33(H) 3.77 - 5.28 x10E6/uL [facility] Hemoglobin 10.3(L) 11.1 - 15.9 g/dL [facility] Hematocrit 35.1 34.0 - 46.6 % [facility] MCV 66(L) 79 - 97 fL [facility] MCH 19.3(L) 26.6 - 33.0 pg [facility] MCHC 29.3(L) 31.5 - 35.7 g/dL [facility] RDW 19.3(H) 11.7 - 15.4 % [facility] Platelets 174 150 - 450 x10E3/uL [facility] Neutrophils Relative 71 Not Estab. % [facility] Lymphocytes Relative 21 Not Estab. % [facility] Monocytes 5 Not Estab. % [facility] Eosinophils Relative 1 Not Estab. % [facility] Basophils Relative 1 Not Estab. % [facility] Neutrophils Absolute 4.2 1.4 - 7.0 x10E3/uL [facility] Lymphocytes Absolute 1.3 0.7 - 3.1 x10E3/uL [facility] Monocytes Absolute 0.3 0.1 - 0.9 x10E3/uL [facility] Eosinophils Absolute 0.1 0.0 - 0.4 x10E3/uL [facility] Basophils Absolute 0.0 0.0 - 0.2 x10E3/uL [facility] Immature Granulocytes 1 Not Estab. % [facility] Immature Grans (Absolute) 0.0 0.0 - 0.1 x10E3/uL [facility] Blood (Blood, Venous) 02/22/2024 8:29 AM EDT 02/22/2024 us Barry Reyes MD LAB BLOOD ORDERABLES Final Re sult [facility] [address] [place] [address] documented in this encounter Visit Diagnoses Diagnosis Chronic kidney disease, stage 2 (mild) Anemia in chronic kidney disease Iron deficiency anemia, not otherwise specified documented in this encounter Care Teams Planting Material Carrier Relationship Specialty Start Date End Date Sahra Son MD [address] [place] [id number] PCP - General Internal Medicine 10/28/22 documented as of this encounter
--- OUTSIDE RECORDS SUMMARY | 2024-06-12 13:30 | XMS_ITS | Encounter Summary ---
Author Organization [facility] Address [address] [place] [address] Phone Care Team Providers Care Track Inspecting Supervisor Name Role Phone Sahra Son MD Primary Care Provider + Encounter Details Date Type Department Care Team ([facility] Contact Info) Description 11/11/2023 Documentation Only [facility] [address] [place] [address] India Davalos [address] [place] [address] Social History Tobacco Use Types [...] [facility] [address] [place] [address] Juan Jose Li MD [address] [place] [address] [place] [address] documented as of this encounter Visit Diagnoses Not on filedocumented in this encounter Care Teams Track Inspecting Supervisor Relationship Specialty Start Date End Date Sahra Son MD [address] [id number] PCP - General Internal Medicine 10/28/22 documented as of this encounter
--- OUTSIDE RECORDS SUMMARY | 2024-06-12 13:30 | XMS_ITS | Encounter Summary ---
Author Organization [facility] Address [address] [place] [address] Phone Care Team Providers Care Geophysical Computer Name Role Phone Sahra Son MD Primary Care Provider + Encounter Details Date Type Department Care Team ([facility] Contact Info) Description 11/11/2023 Documentation Only [facility] [address] [place] [address] India Davalos [address] [place] [address] Social History Tobacco Use Types [...] Visit [facility] [address] [place] [address] Juan Jose Li MD [address] [place] [address] [place] [address] documented as of this encounter Visit Diagnoses Not on filedocumented in this encounter Care Teams Geophysical Computer Relationship Specialty Start Date End Date Sahra Son MD [address] [phone] PCP - General Internal Medicine 10/28/22 documented as of this encounter
--- OUTSIDE RECORDS SUMMARY | 2024-06-12 13:30 | XMS_ITS | Encounter Summary ---
Author Organization [facility] Address [address] [place] [address] Phone Care Team Providers Care School Secretary Name Role Phone Sahra Son MD Primary Care Provider + Encounter Details Date Type Department Care Team (Late Contact Info) Description 04/05/2024 Documentation Only [facility] [address] [place] [address] India Davalos [address] [place] [address] Social History Tobacco Use Types [...] Visit [facility] [address] [place] [address] Juan Jose Li MD [address] [place] [address] [place] [address] documented as of this encounter Visit Diagnoses Not on filedocumented in this encounter Care Teams School Secretary Relationship Specialty Start Date End Date Sahra Son MD [address] [phone] PCP - General Internal Medicine 10/28/22 documented as of this encounter
--- OUTSIDE RECORDS SUMMARY | 2024-06-12 13:30 | XMS_ITS | Encounter Summary ---
Author Organization [facility] Address [address] [place] [address] Phone Care Team Providers Care Editor Trade Journal Name Role Phone Sahra Son MD Primary Care Provider + Encounter Details Date Type Department Care Team ([facility] [address] Contact Info) Description 04/08/2022 Documentation Only [facility] [address] [place] [address] India Davalos [address] [place] [address] Social History Tobacco Use Types [...] Visit [facility] [address] [place] [address] Juan Jose Li MD [address] [place] [address] [place] [address] documented as of this encounter Visit Diagnoses Not on filedocumented in this encounter Care Teams Editor Trade Journal Relationship Specialty Start Date End Date Sahra Son MD [address] [phone] PCP - General Internal Medicine 10/28/22 documented as of this encounter
--- OUTSIDE RECORDS SUMMARY | 2024-06-12 13:30 | XMS_ITS | Encounter Summary ---
Author Organization [facility] Address [address] [place] [address] Phone Care Team Providers Care Sprue Cutting Press Operator Name Role Phone Sahra Son MD Primary Care Provider + Encounter Details Date Type Department Care Team (Late Contact Info) Description 11/19/2023 Documentation Only [facility] [address] [place] [address] India Davalos [address] [place] [address] Social History Tobacco Use Types [...] Visit [facility] [address] [place] [address] Juan Jose Li MD [address] [place] [address] [place] [address] documented as of this encounter Visit Diagnoses Not on filedocumented in this encounter Care Teams Sprue Cutting Press Operator Relationship Specialty Start Date End Date Sahra Son MD [address] [phone] PCP - General Internal Medicine 10/28/22 documented as of this encounter
--- OUTSIDE RECORDS SUMMARY | 2024-06-12 13:30 | XMS_ITS | Encounter Summary ---
Author Organization [facility] Address [address] [place] [address] Phone Care Team Providers Care Cloth Baler Name Role Phone Sahra Son MD Primary Care Provider + Encounter Details Date Type Department Care Team (Late Contact Info) Description 03/22/2024 Documentation Only [facility] [address] [place] [address] India Davalos [address] [place] [address] Social History Tobacco Use Types [...] Visit [facility] [address] [place] [address] Juan Jose Li MD [address] [place] [address] [place] [address] documented as of this encounter Visit Diagnoses Not on filedocumented in this encounter Care Teams Cloth Baler Relationship Specialty Start Date End Date Sahra Son MD [address] [phone] PCP - General Internal Medicine 10/28/22 documented as of this encounter
--- OUTSIDE RECORDS SUMMARY | 2024-06-12 13:30 | XMS_ITS | Encounter Summary ---
Author Organization [facility] Address [address] [place] [address] Phone Care Team Providers Care Burglar Alarm Installer Name Role Phone Sahra Son MD Primary Care Provider + Encounter Details Date Type Department Care Team (Late Contact Info) Description 11/21/2021 Documentation Only [facility] [address] [place] [address] India Davalos [address] [place] [address] Social History Tobacco Use [...] [facility] [address] [place] [address] Juan Jose Li MD [address] [place] [address] [place] [address] documented as of this encounter Visit Diagnoses Not on filedocumented in this encounter Care Teams Burglar Alarm Installer Relationship Specialty Start Date End Date Sahra Son MD [address] [phone] PCP - General Internal Medicine 10/28/22 documented as of this encounter
--- OUTSIDE RECORDS SUMMARY | 2024-06-12 13:30 | XMS_ITS | Encounter Summary ---
Author Organization [facility] Address [address] [place] [address] Phone Care Team Providers Care Waiter Waitress Name Role Phone Sahra Son MD Primary Care Provider + Encounter Details Date Type Department Care Team ([facility] Contact Info) Description 03/11/2023 Documentation Only [facility] [address] [place] [address] India Davalos [address] [place] [address] Social History Tobacco Use Types [...] Visit [facility] [address] [place] [address] Juan Jose Li MD [address] [place] [address] [place] [address] documented as of this encounter Visit Diagnoses Not on filedocumented in this encounter Care Teams Waiter Waitress Relationship Specialty Start Date End Date Sahra Son MD [address] [phone] PCP - General Internal Medicine 10/28/22 documented as of this encounter
--- OUTSIDE RECORDS SUMMARY | 2024-06-12 13:30 | XMS_ITS | Encounter Summary ---
Author Organization [facility] Address [address] [place] [address] Phone Care Team Providers Care Assistant General Manager Name Role Phone Sahra Son MD Primary Care Provider + Encounter Details Date Type Department Care Team (Late Contact Info) Description 01/04/2024 Documentation Only [facility] [address] [place] [address] India Davalos [address] [place] [address] Social History Tobacco Use Types [...] [facility] [address] [place] [address] Juan Jose Li MD [address] [place] [address] [place] [address] documented as of this encounter Visit Diagnoses Not on filedocumented in this encounter Care Teams Assistant General Manager Relationship Specialty Start Date End Date Sahra Son MD [address] [phone] PCP - General Internal Medicine 10/28/22 documented as of this encounter
--- OUTSIDE RECORDS SUMMARY | 2024-06-12 13:30 | XMS_ITS | Encounter Summary ---
Author Organization [facility] Address [address] [place] [address] Phone Care Team Providers Care Pediatric Nephrologist Name Role Phone Sahra Son MD Primary Care Provider + Encounter Details Date Type Department Care Team ([facility] Contact Info) Description 09/18/2022 Documentation Only [facility] [address] [place] [address] India Davalos [address] [place] [address] Social History Tobacco Use Types [...] [facility] [address] [place] [address] Juan Jose Li MD [address] [place] [address] [place] [address] documented as of this encounter Visit Diagnoses Not on filedocumented in this encounter Care Teams Pediatric Nephrologist Relationship Specialty Start Date End Date Sahra Son MD [address] [phone] PCP - General Internal Medicine 10/28/22 documented as of this encounter
--- OUTSIDE RECORDS SUMMARY | 2024-06-12 13:30 | XMS_ITS | Encounter Summary ---
Author Organization [facility] Address [address] [place] [address] Phone Care Team Providers Care Molding Fitter Name Role Phone Sahra Son MD Primary Care Provider + Encounter Details Date Type Department Care Team (Late Contact Info) Description 06/17/2022 Documentation Only [facility] [address] [place] [address] India Davalos [address] [place] [address] Social History Tobacco Use Types [...] Visit [facility] [address] [place] [address] Juan Jose Li MD [address] [place] [address] [place] [address] documented as of this encounter Visit Diagnoses Not on filedocumented in this encounter Care Teams Molding Fitter Relationship Specialty Start Date End Date Sahra Son MD [address] [phone] PCP - General Internal Medicine 10/28/22 documented as of this encounter
--- OUTSIDE RECORDS SUMMARY | 2024-06-12 13:30 | XMS_ITS | Encounter Summary ---
Author Organization [facility] Address [address] [place] [address] Phone Care Team Providers Care Power Station Operator Name Role Phone Sahra Son MD Primary Care Provider + Encounter Details Date Type Department Care Team (Late Contact Info) Description 06/16/2022 Documentation Only [facility] [address] [place] [address] India Davalos [address] [place] [address] Social History Tobacco Use Types [...] Visit [facility] [address] [place] [address] Juan Jose Li MD [address] [place] [address] [place] [address] documented as of this encounter Visit Diagnoses Not on filedocumented in this encounter Care Teams Power Station Operator Relationship Specialty Start Date End Date Sahra Son MD [address] [phone] PCP - General Internal Medicine 10/28/22 documented as of this encounter
--- OUTSIDE RECORDS SUMMARY | 2024-06-12 13:30 | XMS_ITS | Encounter Summary ---
Author Organization [facility] Address [address] [place] [address] Phone Care Team Providers Care Copy Center Specialist Name Role Phone Sahra Son MD Primary Care Provider + Encounter Details Date Type Department Care Team (Late Contact Info) Description 11/17/2023 Documentation Only [facility] [address] [place] [address] India Davalos [address] [place] [address] Social History Tobacco Use Types [...] [facility] [address] [place] [address] Juan Jose Li MD [address] [place] [address] [place] [address] documented as of this encounter Visit Diagnoses Not on filedocumented in this encounter Care Teams Copy Center Specialist Relationship Specialty Start Date End Date Sahra Son MD [address] [phone] PCP - General Internal Medicine 10/28/22 documented as of this encounter
--- OUTSIDE RECORDS SUMMARY | 2024-06-12 13:30 | XMS_ITS | Encounter Summary ---
Author Organization [facility] Address [address] [place] [address] Phone Care Team Providers Care Machine Tack Puller Name Role Phone Sahra Son MD Primary Care Provider + Encounter Details Date Type Department Care Team ([facility] Contact Info) Description 12/23/2021 Documentation Only [facility] [address] [place] [place] [address] Juan Jose Li MD [address] [place] [address] [place] [address] Social History Tobacco Use Types [...] Visit [facility] [address] [place] [place] [address] Juan Jose Li MD [address] [place] [address] [place] [address] documented as of this encounter Visit Diagnoses Not on filedocumented in this encounter Care Teams Machine Tack Puller Relationship Specialty Start Date End Date Sahra Son MD [address] [phone] PCP - General Internal Medicine 10/28/22 documented as of this encounter
--- OUTSIDE RECORDS SUMMARY | 2024-06-12 13:30 | XMS_ITS | Encounter Summary ---
Author Organization [facility] Address [address] [place] [address] Phone Care Team Providers Care Cell Tender Helper Name Role Phone Sahra Son MD Primary Care Provider + Encounter Details Date Type Department Care Team ([facility] Contact Info) Description 09/28/2022 Documentation Only [facility] [address] [place] [address] India Davalos [address] [place] [address] Social History Tobacco Use Types [...] Visit [facility] [address] [place] [address] Juan Jose Li MD [address] [place] [address] [place] [address] documented as of this encounter Visit Diagnoses Not on filedocumented in this encounter Care Teams Cell Tender Helper Relationship Specialty Start Date End Date Sahra Son MD [address] [phone] PCP - General Internal Medicine 10/28/22 documented as of this encounter
--- OUTSIDE RECORDS SUMMARY | 2024-06-12 13:31 | XMS_ITS | Encounter Summary ---
Author Organization [facility] Address [address] [place] [address] Phone Care Team Providers Care Locker Plant Attendant Name Role Phone Sahra Son MD Primary Care Provider + Encounter Details Date Type Department Care Team (Late Contact Info) Description 05/17/2023 Orders Only [facility] [address] [address] Arlene Alston PA [address] [place] [address] Chronic kidney disease, stage 2 (mild); Essential (primary) hypertension; Anemia in chronic kidney disease; Antiphospholipid syndrome (HCC); Type 2 diabetes mellitus, not otherwise specified (HCC); Bleeding hemorrhoids Social History Tobacco Use Types Packs/Day Years [...] Visit [facility] [address] [place] [address] Juan Jose Li MD [address] [place] [address] documented as of this encounter Procedures Procedure Name Priority Date/Time Associated Diagnosis Comments IRON PANEL (FE, TIBC, TSAT) Routine 06/08/2023 8:36 AM EST Chronic kidney disease, stage 2 (mild) Essential (primary) hypertension Anemia in chronic kidney disease Antiphospholipid syndrome (HCC) Type 2 diabetes mellitus, not otherwise specified (HCC) Bleeding hemorrhoids VITAMIN D 25 HYDROXY Routine 06/08/2023 8:36 AM EST Chronic kidney disease, stage 2 (mild) Essential (primary) hypertension Anemia in chronic kidney disease Antiphospholipid syndrome (HCC) Type 2 diabetes mellitus, not otherwise specified (HCC) Bleeding hemorrhoids CBC AND DIFFERENTIAL Routine 06/08/2023 8:36 AM EST Chronic kidney disease, stage 2 (mild) Essential (primary) hypertension Anemia in chronic kidney disease Antiphospholipid syndrome (HCC) Type 2 diabetes mellitus, not otherwise specified (HCC) Bleeding hemorrhoids MAGNESIUM Routine 06/08/2023 8:36 AM EST Chronic kidney disease, stage 2 (mild) Essential (primary) hypertension Anemia in chronic kidney disease Antiphospholipid syndrome (HCC) Type 2 diabetes mellitus, not otherwise specified (HCC) Bleeding hemorrhoids HEMOGLOBIN A1C Routine 06/08/2023 8:36 AM EST Chronic kidney disease, stage 2 (mild) Essential (primary) hypertension Anemia in chronic kidney disease Antiphospholipid syndrome (HCC) Type 2 diabetes mellitus, not otherwise specified (HCC) Bleeding hemorrhoids RENAL FUNCTION PANEL Routine 06/08/2023 8:36 AM EST Chronic kidney disease, stage 2 (mild) Essential (primary) hypertension Anemia in chronic kidney disease Antiphospholipid syndrome (HCC) Type 2 diabetes mellitus, not otherwise specified (HCC) Bleeding hemorrhoids documented in this encounter Results * (ABNORMAL) Iron Panel (Fe, TIBC, TSAT) (06/08/2023 8:36 AM EST) Pathologist [facility] Iron 49 (30-160) MCG/DL [facility] UIBC 246 (110-370) MCG/DL [facility] TIBC 295 (140-530) MCG/DL [facility] Iron Saturation (TSat) 17(L) (20-55) % [facility] Comment: Testing performed or reported by [facility], a Service of [address] [address] Luis A Bailey MD, Commodity Director CLIA# [id number] Blood (Blood, Venous) 06/08/2023 8:36 AM EST 06/08/2023 8:39 AM EST Arlene CARTER LAB BLOOD ORDERABLES Final Re sult Performing Organization Address [facility] de Phone Number [facility] * Vitamin D 25 hydroxy (06/08/2023 8:36 AM EST) [facility] Vitamin D, 25-Hydroxy 24.8 (20-50) NG/ML [facility] Comment: Testing performed or reported by [facility], a Service of [facility], [address] [place] [address] Luis A Bailey MD, Commodity Director CLIA# [id number] Blood (Blood, Venous) 06/08/2023 8:36 AM EST 06/08/2023 8:39 AM EST Arlene CARTER LAB BLOOD ORDERABLES Final Re sult Performing Organization Address [facility] Co de Phone Number [facility] * (ABNORMAL) Renal function panel (06/08/2023 8:36 AM EST) [facility] Glucose 166(H) (70-99) MG/DL [facility] BUN 19 (8-23) MG/DL [facility] Creatinine 1.0 (0.5-1.0) MG/DL [facility] Sodium 138 (133-145) MMOL/L [facility] Potassium 4.9 (3.6-5.2) MMOL/L [facility] Chloride 101 (98-107) MMOL/L [facility] Bicarbonate (CO2) 27 (22-29) MMOL/L [facility] Anion Gap 10 (4-17) [facility] Albumin 4.2 (3.4-4.8) GM/DL [facility] Calcium 9.1 (8.6-10.5) MG/DL [facility] Phosphorus, Serum 3.4 (2.5-4.5) MG/DL [facility] Est GFR Non 66 ML/MIN/1.7 3 M2 [facility] Comment: Creatinine based estimated glomerular filtration (eGFR) in adults is calculated using the National Kidney Foundation recommended 2020 CKD-EPI equation. Estimates GFR from serum creatinine, age and sex. Testing performed or reported by [facility], a Service of [address] [address] Luis A Bailey MD, Commodity Director CLIA# [id number] Blood (Blood, Venous) 06/08/2023 8:36 AM EST 06/08/2023 8:39 AM EST Arlene CARTER LAB BLOOD ORDERABLES Final Re sult Performing Organization Address [facility] de Phone Number [facility] * Magnesium (06/08/2023 8:36 AM EST) Magnesium 2.1 (1.6-2.3) mg/dL [facility] Comment: Testing performed or reported by [facility], a Service of [facility], [address] [place] [address] Luis A Bailey MD, Commodity Director CLIA# [id number] Blood (Blood, Venous) 06/08/2023 8:36 AM EST 06/08/2023 8:39 AM EST Arlene CARTER LAB BLOOD ORDERABLES Final Re sult Performing Organization Address [facility]/ZIP Co de Phone Number [facility] * (ABNORMAL) Hemoglobin A1c (06/08/2023 8:36 AM EST) Hemoglobin A1C 7.2(H) (4.0-5.6) % [facility] Comment: MONITORING: In known diabetic patients, hemoglobin A1c targets should be discussed with health care provider. DIAGNOSTIC USE: ??The [place] Diabetes [employer] (ADA) and the World Health Organization (WHO) recommend the use of HbA1c to diagnose diabetes using a threshold of 6.5%. Patients who have an HbA1c between 5.7% and 6.4% are considered at increased risk for developing diabetes in the future. CAUTION: Falsely low HbA1c results may be observed in patients with hemolytic anemia, homozygous forms of abnormal hemoglobin (e.g. SS, CC, SC), , recent blood loss or hemoglobin F greater than 7%. Fructosamine may be used as an alternate test in these cases. REFERENCE: ADA: Standards of Medical Care in Diabetes 2020, The Journal of Clinical and Applied Research and Education Volume 43, Supplement 1 Testing performed or reported by [facility], a Service of [facility], [address] [place] [address] Luis A Bailey MD, Commodity Director [facility]# [id number] Blood (Blood, Venous) 06/08/2023 8:36 AM EST 06/08/2023 8:38 AM EST Arlene CARTER LAB BLOOD ORDERABLES Final Re sult [facility] * (ABNORMAL) CBC and differential (06/08/2023 8:36 AM EST) White Blood Cells 5.2 (4.0-11.0 ) K/MM3 [facility] RBC 5.08 (4.20-5.4 0) M/MM3 [facility] Hgb 10.1(L) (11.7-15. 5) GM/DL [facility] Hematocrit 32.9(L) (35.7-45. 8) % [facility] MCV 64.8(L) (80.0-100 .0) FL [facility] MCH 19.9(L) (27.0-34. 0) PG [facility] MCHC 30.7(L) (33.0-37. 0) g/dL [facility] Platelets 191 (150-460) K/MM3 [facility] RDW-SD 40.3 (<47.0) FL [facility] MPV NOT MEASURED (9.4-12.4 ) [place] [facility] nRBC Count 0.0 #/100 WBC'S [facility] NRBC Absolute 0.0 K/MM3 [facility] Neutrophils Abs Auto 3.5 (1.3-7.0) K/MM3 [facility] Lymphocytes Relative 1.3 (0.8-3.1) K/MM3 [facility] Monocytes 0.3(L) (0.4-0.9) K/MM3 [facility] Eosinophils Relative 0.1 (0.0-0.4) K/MM3 [facility] Basophil ABS 0.0 (0.0-0.1) K/MM3 [facility] Granulocytes Absolute 0.0 K/MM3 [facility] Neutrophils % Auto 67.3 (44-76) % [facility] Lymphs 24.0 (15-43) % [facility] Monocytes Absolute 5.8 (4.5-10.5 ) % [facility] Eosinophils 1.7 (0-6) % [facility] Basophils Relative 0.8 (0-2) % [facility] Immature Granulocytes 0.4 % [facility] Comment: Testing performed or reported by [facility], a Service of [facility], [address] [place] [address] Luis A Bailey MD, Commodity Director [facility]# [id number] Blood (Blood, Venous) 06/08/2023 8:36 AM EST 06/08/2023 8:38 AM EST us Arlene CARTER LAB BLOOD ORDERABLES Final Re sult [facility] documented in this encounter Visit Diagnoses Diagnosis Chronic kidney disease, stage 2 (mild) Essential (primary) hypertension Anemia in chronic kidney disease Antiphospholipid syndrome (HCC) Type 2 diabetes mellitus, not otherwise specified (HCC) Bleeding hemorrhoids documented in this encounter Care Teams Locker Plant Attendant Relationship Specialty Start Date End Date Sahra Son MD [address] [address] PCP - General Internal Medicine 10/28/22 documented as of this encounter
--- OUTSIDE RECORDS SUMMARY | 2024-06-12 13:31 | XMS_ITS | Clinical Summary ---
Author Organization [facility] Address [address] [place] [address] Care Team Providers Care Wiring Inspector Name Role Phone Geovani Natalie Carmelo ESPARZA Primary Care Provider [phone] Allergies Active Allergy Reactions Criticality Noted Date Comments Codeine 11/02/2016 Ferumoxytol Hives 04/30/2022 Iodinated Contrast Media 07/06/2022 Penicillins 11/02/2016 Shellfish 11/02/2016 Tramadol 07/06/2022 Trazodone 04/30/2022 Medications Medication Sig Dispensed Refills Start Date End Date Status Docusate Sodium (COLACE PO) Take by mouth 2 (two) times a day. 0 Active ipratropium-albuterol (COMBIVENT) 18-103 MCG/ACT inhaler Inhale 2 puffs into the lungs 4 (four) times a day. 0 Active warfarin (COUMADIN) 2.5 MG tablet Take 2.5 mg by mouth daily. 0 Active zolpidem (AMBIEN) 5 MG tablet Take 10 mg by mouth every night at bedtime as needed for sleep. 0 Active LORazepam (ATIVAN) 1 MG tablet Take 1 mg by mouth 3 (three) times a day. 0 Active benztropine (COGENTIN) 1 MG tablet Take 1 mg by mouth 2 (two) times a day. 0 Active Pediatric Multiple Vit-Vit C (VITAMIN DAILY PO) Take 50,000 mg by mouth. 0 Active omeprazole (PRILOSEC) 20 MG capsule Take 20 mg by mouth daily. 0 Active furosemide (LASIX) 40 MG tablet Take 40 mg by mouth 2 (two) times a week on Wednesday and at 8PM. 0 Active OxyCODONE HCl ER (OXYCONTIN) 30 MG T12A controlled release tablet Take 30 mg by mouth 5 (five) times a day. 0 Active vitamin B-12 (CYANOCOBALAMIN) 100 MCG tablet Take 1,000 mcg by mouth daily. 0 Active montelukast (SINGULAIR) 10 MG tablet Take 10 mg by mouth every night at bedtime. 0 Active simvastatin (ZOCOR) tablet 20 mg Take 20 mg by mouth every night at bedtime. 0 Active donepezil (ARICEPT) 5 MG tablet Take 10 mg by mouth every night at bedtime. 0 Active Alcohol Swabs (ALCOHOL PREP) 70 % PADS 0 08/03/2016 Active Blood Glucose Calibration (FREESTYLE CONTROL SOLUTION) LIQD 0 08/03/2016 Active Blood Glucose Monitoring Suppl (FREESTYLE LITE) TAINA 0 08/03/2016 Act allen donepezil (ARICEPT) 10 MG tablet TK 1 T PO D QPM 1 10/04/2016 Active CYMB[address]TA [address] capsule TK 2 CS PO D QAM 1 10/04/2016 Active ergocalciferol (VITAMIN D2) capsule 04674 units TK ONE C PO TWICE A WEEK 6 10/16/2016 Active BREO ELLIPTA 200-25 MCG/INH AEPB INL 1 PUFF PO QD 11 09/29/2016 Active FREESTYLE LITE test strip 0 08/03/2016 Active Lancet Devices (ADJUSTABLE LANCING DEVICE) MISC 0 08/03/2016 Active SURE COMFORT PEN NEEDLES 31G X 5 MM MISC 0 08/03/2016 Active ASSURE COMFORT LANCETS 30G MISC 0 08/03/2016 Active meclizine (ANTIVERT) 25 MG tablet TK 1 T PO TID 5 09/29/2016 Active cholecalciferol (VITAMIN D3) 1000 UNITS tablet Take 1,000 Units by mouth daily. 0 Active calcium carbonate (OS-ALEXEY) 1250 (500 Ca) MG tablet 0 01/23/2020 Active cloNIDine (CATAPRES) tablet 0.1 mg Take 1 tablet (0.1 mg total) by mouth 2 (two) times a day. 0 04/27/2022 Active pancrelipase, Vlw-Owec-Qzco, (Creon) [address] units CPEP TK ONE C PO TID 0 02/23/2017 Active warfarin (COUMADIN) 2.5 MG tablet Take 2 tablets (5 mg total) by mouth. 0 02/23/2017 Active oxyCODONE HCl ER (OxyCONTIN) 20 MG T12A controlled release tablet Take 2 tablets (40 mg total) by mouth. 0 Active predniSONE (DELTASONE) tablet 10 mg 0 06/18/2020 Active polyethylene glycol (GLYCOLAX) 17 GM/SCOOP powder MIX 1 PACKET IN 8 OUNCES OF LIQUID AND DRINK BY MOUTH EVERY DAY 0 09/29/2017 Active ondansetron (ZOFRAN) 4 MG tablet Take 1 tablet (4 mg total) by mouth. 0 Active ferrous sulfate 325 (65 FE) MG tablet Take 1 tablet (325 mg total) by mouth 2 (two) times a day. 0 Active LORazepam (ATIVAN) 1 MG tablet Take 1 tablet (1 mg total) by mouth. 0 01/03/2018 Active budesonide (PULMICORT) 0.5 MG/2ML nebulizer solution USE 2 ML VIA NEBULIZER TWICE DAILY 0 02/23/2017 Active rOPINIRole (REQUIP) 0.25 MG tablet 0 02/20/2022 Active Meclizine HCl 25 MG CHEW Chew 25 mg by mouth. 0 01/03/2018 Active clopidogrel (PLAVIX) 75 MG tablet TAKE 1 TABLET BY MOUTH EVERY DAY STARTING 07/20 0 07/01/2022 Active Active Problems Problem Noted Date Diagnosed Date Anemia, unspecified 04/20/2022 Iron deficiency anemia due to chronic blood loss 11/02/2016 Chronic lower GI bleeding 11/02/2016 Social History Tobacco Use Types Packs/Day Years Used Date Smoking Tobacco: Every Day Smokeless Tobacco: Never Tobacco Cessation:Ready to Q uit: Not Asked; Counseling Given: Not Answered Alcohol Use Standard Drinks/Week Comments No 0 (1 standard drink = 0.6 oz pur e alcohol) Sex and Gender Information Value Date Recorded Sex Assigned at Female 06/26/2022 2:22 PM EST Gender Identity Female 07/02/2022 8:24 AM EST Sexual Orientation Straight 07/02/2022 8: 24 AM EST Job Start Date Occupation Industry Not on file Not on file Not on file Last Filed Vital Signs Vital Sign Reading Time Taken Comments Blood Pressure 144/71 08/17/2023 10:48 AM EDT Pulse 82 08/17/2023 10:48 AM EDT Temperature 36.6 ??C (97.8 ??F) 08/17/2023 10:48 AM E DT Respiratory Rate 18 08/17/2023 10:48 AM EDT Oxygen Saturation 100% 08/17/2023 10:48 AM EDT Inhaled Oxygen Concentration - - Weight 75.6 kg (166 lb 9.6 oz) 12/09/2017 9:20 A M EDT Height 167.6 cm (5' 6 ) 12/09/2017 9:20 AM EDT Body Mass Index 26.89 12/09/2017 9:20 AM EDT Plan of Treatment Health Maintenance Due Date Last Done Comments Hepatitis C Screening 1960 COVID-19 Vaccine (#1) 05/09/1960 Depression Screening 1971 Preventative Health Evaluation 11/07/1977 Tobacco Cessation Counseling 11/07/1977 Cervical Cancer Screening (Pap Smear) 11/07/1980 DTap / Tdap / Td (1 - Tdap) 05/18/2002 05/17/2002 Colon Cancer Screening (Colonoscopy) 11/07/2004 Breast Cancer Screening (Mammogram) 11/07/2009 Shingrix-Zoster Vaccine (1 of 2) 11/07/2009 Pneumococcal Vaccine (2 of 2 - PCV) 10/19/2012 10/20/2011, 01/03/2007 Pneumococcal Vaccine (2 of 2 - PCV) 10/19/2012 10/20/2011, 01/03/2007 Influenza Vaccine (#1) 2024 RSV Adult > 60+ Yrs or (1 - 1-dose 75+ series) 11/07/2034 Hepatitis B Vaccines Completed 07/14/2023, 06/08/2023, 02/23/2023, Additional history exists RSV Ped < 20 months Aged Out No longe r eligible based on patient's age to complete this topic Care Teams Wiring Inspector Relationship Specialty Start Date End Date Natalie Olivo APRN [address] [place] [address] PCP - General Vp Customer Service 04/30/22
--- OUTSIDE RECORDS SUMMARY | 2024-06-12 13:31 | XMS_ITS | Encounter Summary ---
Author Organization [facility] Address [address] [place] [address] Phone Care Team Providers Care Insurance Verification Clerk Name Role Phone Sahra Son MD Primary Care Provider + Encounter Details Date Type Department Care Team (Late Contact Info) Description 07/16/2023 Documentation Only [facility] [address] [place] [address] India Davalos [address] [place] [address] Social History Tobacco Use Types [...] Visit [facility] [address] [place] [address] Juan Jose Li MD [address] [place] [address] [place] [address] documented as of this encounter Visit Diagnoses Not on filedocumented in this encounter Care Teams Insurance Verification Clerk Relationship Specialty Start Date End Date Sahra Son MD [address] [id number] PCP - General Internal Medicine 10/28/22 documented as of this encounter
--- OUTSIDE RECORDS SUMMARY | 2024-06-12 13:31 | XMS_ITS | Encounter Summary ---
Author Organization [facility] Address [address] [place] [address] Phone Care Team Providers Care Straight Truck Driver Name Role Phone Sahra Son MD Primary Care Provider + Encounter Details Date Type Department Care Team (Late Contact Info) Description 12/24/2022 Documentation Only [facility] [address] [place] [address] Carol Whelan [address] [place] [address] Social History Tobacco Use Types [...] Visit [facility] [address] [place] [address] Juan Jose Li MD [address] [place] [address] [place] [address] documented as of this encounter Visit Diagnoses Not on filedocumented in this encounter Care Teams Straight Truck Driver Relationship Specialty Start Date End Date Sahra Son MD [address] [address] PCP - General Internal Medicine 10/28/22 documented as of this encounter
--- OUTSIDE RECORDS SUMMARY | 2024-06-12 13:31 | XMS_ITS | Encounter Summary ---
Author Organization [facility] Address [address] [place] [address] Phone Care Team Providers Care Kiln Car Repairer Name Role Phone Sahra Son MD Primary Care Provider + Encounter Details Date Type Department Care Team (Late Contact Info) Description 08/22/2021 Documentation Only [facility] [address] [place] [address] India Davalos [address] [place] [address] Social History Tobacco Use Types [...] Visit [facility] [address] [place] [address] Juan Jose Li MD [address] [place] [address] [place] [address] documented as of this encounter Visit Diagnoses Not on filedocumented in this encounter Care Teams Kiln Car Repairer Relationship Specialty Start Date End Date Sahra Son MD [address] [phone] PCP - General Internal Medicine 10/28/22 documented as of this encounter
--- OUTSIDE RECORDS SUMMARY | 2024-06-12 13:31 | XMS_ITS | Encounter Summary ---
Author Organization [facility] Address [address] [place] [address] Phone Care Team Providers Care Bag Machine Helper Name Role Phone Sahra Son MD Primary Care Provider + Encounter Details Date Type Department Care Team ([facility] Contact Info) Description 01/29/2023 Documentation Only [facility] [address] [place] [address] India Davalos [address] [place] [address] Social History Tobacco Use Types [...] Visit [facility] [address] [place] [address] Juan Jose Li MD [address] [place] [address] [place] [address] documented as of this encounter Visit Diagnoses Not on filedocumented in this encounter Care Teams Bag Machine Helper Relationship Specialty Start Date End Date Sahra Son MD [address] [id number] PCP - General Internal Medicine 10/28/22 documented as of this encounter
--- OUTSIDE RECORDS SUMMARY | 2024-06-12 13:31 | XMS_ITS | Encounter Summary ---
Author Organization [facility] Address [address] [place] [address] Phone Care Team Providers Care Supervisor Plastics Name Role Phone Sahra Son MD Primary Care Provider + Encounter Details Date Type Department Care Team ([facility] Contact Info) Description 03/11/2023 Documentation Only [facility] [address] [place] [address] India Davalos [address] [place] [address] Social History Tobacco Use Types [...] Visit [facility] [address] [place] [address] Juan Jose Li MD [address] [place] [address] [place] [address] documented as of this encounter Visit Diagnoses Not on filedocumented in this encounter Care Teams Supervisor Plastics Relationship Specialty Start Date End Date Sahra Son MD [address] [id number] PCP - General Internal Medicine 10/28/22 documented as of this encounter
--- OUTSIDE RECORDS SUMMARY | 2024-06-12 13:31 | XMS_ITS | Encounter Summary ---
Author Organization [facility] Address [address] [place] [address] Phone Care Team Providers Care Music Critic Name Role Phone Sahra Son MD Primary Care Provider + Encounter Details Date Type Department Care Team ([facility] Contact Info) Description 03/11/2023 Documentation Only [facility] [address] [place] [address] India Davalos [address] [place] [address] Social History Tobacco Use Types [...] Visit [facility] [address] [place] [address] Juan Jose Li MD [address] [place] [address] [place] [address] documented as of this encounter Visit Diagnoses Not on filedocumented in this encounter Care Teams Music Critic Relationship Specialty Start Date End Date Sahra Son MD [address] [phone] PCP - General Internal Medicine 10/28/22 documented as of this encounter
--- OUTSIDE RECORDS SUMMARY | 2024-06-12 13:31 | XMS_ITS | Encounter Summary ---
Author Organization [facility] Address [address] [place] [address] Phone Care Team Providers Care Property Assessment Monitor Name Role Phone Sahra Son MD Primary Care Provider + Encounter Details Date Type Department Care Team (Late Contact Info) Description 07/16/2023 Documentation Only [facility] [address] [place] [address] India Davalos [address] [place] [address] Social History Tobacco Use Types [...] [facility] [address] [place] [address] Juan Jose Li MD [address] [place] [address] [place] [address] documented as of this encounter Visit Diagnoses Not on filedocumented in this encounter Care Teams Property Assessment Monitor Relationship Specialty Start Date End Date Sahra Son MD [address] [phone] PCP - General Internal Medicine 10/28/22 documented as of this encounter
--- OUTSIDE RECORDS SUMMARY | 2024-06-12 13:31 | XMS_ITS | Encounter Summary ---
Author Organization [facility] Address [address] [place] [address] Phone Care Team Providers Care Fuel Agent Name Role Phone Sahra Son MD Primary Care Provider + Encounter Details Date Type Department Care Team ([facility] Contact Info) Description 02/01/2023 Documentation Only [facility] [address] [place] [address] India Davalos [address] [place] [address] Social History Tobacco Use Types [...] Visit [facility] [address] [place] [address] Juan Jose Li MD [address] [place] [address] [place] [address] documented as of this encounter Visit Diagnoses Not on filedocumented in this encounter Care Teams Fuel Agent Relationship Specialty Start Date End Date Sahra Son MD [address] [phone] PCP - General Internal Medicine 10/28/22 documented as of this encounter
--- OUTSIDE RECORDS SUMMARY | 2024-06-12 13:31 | XMS_ITS | Encounter Summary ---
Author Organization [facility] Address [address] [place] [address] Phone Care Team Providers Care Clearance Center Manager Name Role Phone Sahra Son MD Primary Care Provider + Encounter Details Date Type Department Care Team (Late Contact Info) Description 08/09/2023 Documentation Only [facility] [address] [place] [address] India Davalos [address] [place] [address] Social History Tobacco Use Types [...] Visit [facility] [address] [place] [address] Juan Jose Li MD [address] [place] [address] [place] [address] documented as of this encounter Visit Diagnoses Not on filedocumented in this encounter Care Teams Clearance Center Manager Relationship Specialty Start Date End Date Sahra Son MD [address] [phone] PCP - General Internal Medicine 10/28/22 documented as of this encounter
--- OUTSIDE RECORDS SUMMARY | 2024-06-12 13:31 | XMS_ITS | Encounter Summary ---
Author Organization [facility] Address [address] [place] [address] Phone Care Team Providers Care Vat Operator Name Role Phone Sahra Son MD Primary Care Provider + Encounter Details Date Type Department Care Team (Late Contact Info) Description 08/05/2023 Documentation Only [facility] [address] [place] [address] India Davalos [address] [place] [address] Social History Tobacco Use Types [...] [facility] [address] [place] [address] Juan Jose Li MD [address] [place] [address] [place] [address] documented as of this encounter Visit Diagnoses Not on filedocumented in this encounter Care Teams Vat Operator Relationship Specialty Start Date End Date Sarha Son MD [address] [phone] PCP - General Internal Medicine 10/28/22 documented as of this encounter
--- OUTSIDE RECORDS SUMMARY | 2024-06-12 13:31 | XMS_ITS | Encounter Summary ---
Author Organization [facility] Address [address] [place] [address] Phone Care Team Providers Care Distance Education Coordinator Name Role Phone Sahra Son MD Primary Care Provider + Encounter Details Date Type Department Care Team (Late Contact Info) Description 06/09/2023 Documentation Only [facility] [address] [place] [address] India Davalos [address] [place] [address] Social History Tobacco Use Types [...] [facility] [address] [place] [address] Juan Jose Li MD [address] [place] [address] [place] [address] documented as of this encounter Visit Diagnoses Not on filedocumented in this encounter Care Teams Distance Education Coordinator Relationship Specialty Start Date End Date Sahra Son MD [address] [phone] PCP - General Internal Medicine 10/28/22 documented as of this encounter
--- OUTSIDE RECORDS SUMMARY | 2024-06-12 13:31 | XMS_ITS | Encounter Summary ---
Author Organization [facility] Address [address] [place] [address] Phone Care Team Providers Care Shoe Handler Name Role Phone Sahra Son MD Primary Care Provider + Encounter Details Date Type Department Care Team ([facility] Contact Info) Description 07/03/2021 Documentation Only [facility] [address] [place] [address] Juan Jose Li MD [address] [place] [address] [place] [address] Social History Tobacco Use Types [...] Visit [facility] [address] [place] [address] Juan Jose Li MD [address] [place] [address] [place] [address] documented as of this encounter Visit Diagnoses Not on filedocumented in this encounter Care Teams Shoe Handler Relationship Specialty Start Date End Date Sahra Son MD [address] [id number] PCP - General Internal Medicine 10/28/22 documented as of this encounter
--- OUTSIDE RECORDS SUMMARY | 2024-06-12 13:31 | XMS_ITS | Encounter Summary ---
Author Organization [facility] Address [address] [place] [address] Phone Care Team Providers Care Facility Specialist Name Role Phone Sahra Son MD Primary Care Provider + Encounter Details Date Type Department Care Team ([facility] Contact Info) Description 10/07/2021 Documentation Only [facility] [address] [place] [address] India Davalos [address] [place] [address] Social History Tobacco Use Types [...] Visit [facility] [address] [place] [address] Juan Jose Li MD [address] [place] [address] [place] [address] documented as of this encounter Visit Diagnoses Not on filedocumented in this encounter Care Teams Facility Specialist Relationship Specialty Start Date End Date Sahra Son MD [address] [id number] PCP - General Internal Medicine 10/28/22 documented as of this encounter
--- OUTSIDE RECORDS SUMMARY | 2024-06-12 13:31 | XMS_ITS | Encounter Summary ---
Author Organization [facility] Address [address] [place] [address] Phone Care Team Providers Care Pre Kindergarten Teacher Name Role Phone Sahra Son MD Primary Care Provider + Encounter Details Date Type Department Care Team (Late Contact Info) Description 08/27/2021 Documentation Only [facility] [address] [place] [address] India Davalos [address] [place] [address] Social History Tobacco Use Types [...] Visit [facility] [address] [place] [address] Juan Jose Li MD [address] [place] [address] [place] [address] documented as of this encounter Visit Diagnoses Not on filedocumented in this encounter Care Teams Pre Kindergarten Teacher Relationship Specialty Start Date End Date Sahra Son MD [address] [phone] PCP - General Internal Medicine 10/28/22 documented as of this encounter
--- OUTSIDE RECORDS SUMMARY | 2024-06-12 13:31 | XMS_ITS | Encounter Summary ---
Author Organization [facility] Address [address] [place] [address] Phone Care Team Providers Care Warehouse Consultant Name Role Phone Sahra Son MD Primary Care Provider + Encounter Details Date Type Department Care Team ([facility] Contact Info) Description 01/29/2023 Documentation Only [facility] [address] [place] [address] India Davalos [address] [place] [address] Social History Tobacco Use Types [...] Visit [facility] [address] [place] [address] Juan Jose Li MD [address] [place] [address] [place] [address] documented as of this encounter Visit Diagnoses Not on filedocumented in this encounter Care Teams Warehouse Consultant Relationship Specialty Start Date End Date Sahra Son MD [address] [phone] PCP - General Internal Medicine 10/28/22 documented as of this encounter
--- OUTSIDE RECORDS SUMMARY | 2024-06-12 13:31 | XMS_ITS | Encounter Summary ---
Author Organization [facility] Address [address] [place] [address] Phone Care Team Providers Care Radiology Specialist Name Role Phone Sahra Son MD Primary Care Provider + Encounter Details Date Type Department Care Team (Late Contact Info) Description 06/25/2021 Documentation Only [facility] [address] [place] [address] India Davalos [address] [place] [address] Social History Tobacco Use Types [...] Visit [facility] [address] [place] [address] Juan Jose Li MD [address] [place] [address] [place] [address] documented as of this encounter Visit Diagnoses Not on filedocumented in this encounter Care Teams Radiology Specialist Relationship Specialty Start Date End Date Sahra Son MD [address] [phone] PCP - General Internal Medicine 10/28/22 documented as of this encounter
--- OUTSIDE RECORDS SUMMARY | 2024-06-12 13:32 | XMS_ITS | Encounter Summary ---
Author Organization [facility] Address [address] [place] [address] Phone Care Team Providers Care Sammying Machine Operator Name Role Phone Sahra Son MD Primary Care Provider + Encounter Details Date Type Department Care Team (Late Contact Info) Description 05/26/2024 Orders Only [facility] [address] [place] [address] India Davalos [address] [place] [address] Chronic kidney disease, stage 2 [...] Visit [facility] [address] [address] Juan Jose Li MD [address] [place] [address] [place] [address] documented as of this encounter Procedures Procedure Name Priority Date/Time Associated Diagnosis Comments IRON PANEL (FE, TIBC, TSAT) Routine 06/07/2024 11:53 AM EST Chronic kidney disease, stage 2 (mild) Anemia in chronic kidney disease Iron deficiency anemia, not otherwise specified CBC AND DIFFERENTIAL Routine 06/07/2024 11:53 AM EST Chronic kidney disease, stage 2 (mild) Anemia in chronic kidney disease Iron deficiency anemia, not otherwise specified FERRITIN Routine 06/07/2024 11:53 AM EST Chronic kidney disease, stage 2 (mild) Anemia in chronic kidney disease Iron deficiency anemia, not otherwise specified RENAL FUNCTION PANEL Routine 06/07/2024 11:53 AM EST Chronic kidney disease, stage 2 (mild) Anemia in chronic kidney disease Iron deficiency anemia, not otherwise specified documented in this encounter Results * (ABNORMAL) Renal Function Panel (06/07/2024 11:53 AM EST) Glucose 168(H) 70 - 99 mg/dL [facility] BUN 17 8 - 27 mg/dL [facility] Creatinine 1.09(H) 0.57 - 1.00 mg/dL [facility] eGFR CKD-EPI CR 2020 57(L) >59 mL/min/1.7 3 [facility] BUN/Creatinine Ratio 16 12 - 28 [facility] Sodium 137 134 - 144 mmol/L [facility] Potassium 4.8 3.5 - 5.2 mmol/L [facility] Chloride 99 96 - 106 mmol/L [facility] Bicarbonate (CO2) 23 20 - 29 mmol/L [facility] Calcium 9.0 8.7 - 10.3 mg/dL [facility] Albumin 4.2 3.9 - 4.9 g/dL [facility] Phosphorus 4.4(H) 3.0 - 4.3 mg/dL [facility] Blood (Blood, Venous) 06/07/2024 11:53 AM EST 06/07/2024 Barry Reyes MD LAB BLOOD ORDERABLES Final Re sult Performing Organization Address City/[facility]/ZIP Co de Phone Number [facility] [address] [place] [address] * Ferritin (06/07/2024 11:53 AM EST) Ferritin 102 15 - 150 ng/mL [facility] Blood (Blood, Venous) 06/07/2024 11:53 AM EST 06/07/2024 Barry Reyes MD LAB BLOOD ORDERABLES Final Re sult Performing Organization Address [facility] de Phone Number [facility] [address] [place] [address] * Iron Panel (Fe, TIBC, TSAT) (06/07/2024 11:53 AM EST) TIBC 262 250 - 450 ug/dL [facility] UIBC 205 118 - 369 ug/dL [facility] Iron 57 27 - 139 ug/dL [facility] Iron Saturation (TSat) 22 15 - 55 % [facility] Blood (Blood, Venous) 06/07/2024 11:53 AM EST 06/07/2024 Barry Reyes MD LAB BLOOD ORDERABLES Final Re sult Performing Organization Address City/[facility]/ZIP Co de Phone Number [facility] [address] [place] [address] * (ABNORMAL) CBC and Differential (06/07/2024 11:53 AM EST) [facility] WBC 5.5 3.4 - 10.8 x10E3/uL [facility] RBC 5.76(H) 3.77 - 5.28 x10E6/uL [facility] Hemoglobin 11.1 11.1 - 15.9 g/dL [facility] Hematocrit 38.4 34.0 - 46.6 % [facility] MCV 67(L) 79 - 97 fL [facility] MCH 19.3(L) 26.6 - 33.0 pg [facility] MCHC 28.9(L) 31.5 - 35.7 g/dL [facility] RDW 18.8(H) 11.7 - 15.4 % [facility] Platelets 162 150 - 450 x10E3/uL [facility] Neutrophils Relative 59 Not Estab. % [facility] Lymphocytes Relative 31 Not Estab. % [facility] Monocytes 6 Not Estab. % [facility] Eosinophils Relative 2 Not Estab. % [facility] Basophils Relative 1 Not Estab. % [facility] Neutrophils Absolute 3.3 1.4 - 7.0 x10E3/uL [facility] Lymphocytes Absolute 1.7 0.7 - 3.1 x10E3/uL [facility] Monocytes Absolute 0.3 0.1 - 0.9 x10E3/uL [facility] Eosinophils Absolute 0.1 0.0 - 0.4 x10E3/uL [facility] Basophils Absolute 0.0 0.0 - 0.2 x10E3/uL [facility] Immature Granulocytes 1 Not Estab. % [facility] Immature Grans (Absolute) 0.0 0.0 - 0.1 x10E3/uL [facility] Blood (Blood, Venous) 06/07/2024 11:53 AM EST 06/07/2024 us Barry Reyes MD LAB BLOOD ORDERABLES Final Re sult [facility] [address] [place] [address] documented in this encounter Visit Diagnoses Diagnosis Chronic kidney disease, stage 2 (mild) Anemia in chronic kidney disease Iron deficiency anemia, not otherwise specified documented in this encounter Care Teams Sammying Machine Operator Relationship Specialty [place] [address] [place] [id number] PCP - General Internal Medicine 10/28/22 documented as of this encounter
--- OUTSIDE RECORDS SUMMARY | 2024-06-12 13:32 | XMS_ITS | Encounter Summary ---
Author Organization [facility] Address [address] [place] [address] Phone Care Team Providers Care Bottomer Operator Name Role Phone Sahra Son MD Primary Care Provider + Encounter Details Date Type Department Care Team ([facility] Contact Info) Description 10/26/2022 Documentation Only [facility] [address] [place] [address] India Davalos [address] [place] [address] Social History Tobacco Use Types [...] Visit [facility] [address] [place] [address] Juan Jose Li MD [address] [place] [address] [place] [address] documented as of this encounter Visit Diagnoses Not on filedocumented in this encounter Care Teams Bottomer Operator Relationship Specialty Start Date End Date Sahra Son MD [address] [phone] PCP - General Internal Medicine 10/28/22 documented as of this encounter
--- OUTSIDE RECORDS SUMMARY | 2024-06-12 13:32 | XMS_ITS | Clinical Summary ---
Author Organization [facility], Address [address] [place] [address] [place] [address] Phone Care Team Providers Care Clinical Team Manager Name Role Phone Sahra Son MD Primary Care Provider + Allergies Active Allergy Reactions Criticality Noted Date Comments Codeine 12/26/2012 Ferumoxytol Shortness of breath,Itching,Other (see comments) High 02/27/2022 Bones hurt Iodinated Contrast Media 07/06/2022 Penicillins 12/26/2012 Other Shellfish Allergy 12/26/2012 Tramadol 07/06/2022 Trazodone 03/08/2018 Iron Sucrose 02/29/2024 Coughing fit infusion stopped at [facility] [place] Medications Cymbalta [address] capsule TK 2 CS PO QAM 12/28/19 20 Active LORazepam (ATIVAN) 1 MG tablet TK 1 T PO BID 12/24/19 20 Active meclizine (ANTIVERT) 25 MG tablet TK 1 T PO TID PRN 12/24/19 20 Active montelukast (SINGULAIR) 10 MG tablet TK 1 T PO QD IN THE DARCY 11/19/19 20 Active Creon 27559-59485 units capsule TK ONE C PO TID 12/26/19 20 Active warfarin (COUMADIN) 2.5 MG tablet Take 5 mg by mouth 1 (one) time each day 01/16/20 20 Active zolpidem (AMBIEN) 10 MG tablet Take 1 tablet by mouth at bed time Active simvastatin (ZOCOR) 20 MG tablet Take 1 tablet by mouth at bed time Active polyethylene glycol (GLYCOLAX) 17 g packet MIX 1 PACKET IN 8 OUNCES OF LIQUID AND DRINK BY MOUTH EVERY DAY 06/21/19 21 Active omeprazole OTC (PriLOSEC OTC) 20 MG EC tablet Take 1 tablet by mouth 2 (two) times a day 12/19/19 15 Active Lancets (freestyle) lancets USE UNDER THE SKIN ONCE A DAY DIRECTED 07/03/19 21 Active Wixela Inhub 100-50 MCG/DOSE diskus inhaler INHALE 1 PUFF BY MOUTH TWICE DAILY 06/27/19 21 Active ferrous sulfate 325 (65 Fe) MG tablet Take 1 tablet by mouth 2 (two) times a day Active ondansetron (ZOFRAN) 4 MG tablet Take 4 mg by mouth 3 (three) times a day Active atorvastatin (LIPITOR) 80 MG tablet Take 80 mg by mouth at bed time Active NIFEdipine XL (PROCARDIA XL) 30 MG 24 hr tablet Take 1 tablet (30 mg total) by mouth 1 (one) time each day Do not crush, chew, or split. 30 tablet 11 11/14/19 22 Active cloNIDine (CATAPRES) 0.1 MG tablet Take 0.1 mg by mouth in the morning and 0.1 mg in the evening. 02/22/20 22 Active Farxiga 10 MG tablet 02/03/20 23 Active Lantus SoloStar 100 UNIT/ML injection 02/03/20 23 Active Tradjenta 5 MG tablet 02/03/20 23 Active Ferric Carboxymaltose (Injectafer) 750 MG/15ML solution 750 mg for two doses by one week. Slow IVP (undiluted) administration at a rate of approximately 100 mg per minute. No premedication requested. 15 mL 1 04/05/20 24 Active Hospital, Clinic, or Other Facility Administered Medication Ordered Dose Route Frequency Start Date End Date Status ferumoxytol (FERAHEME) injection 510 mgIndications:Iron deficiency anemia, not otherwise specified,Chronic kidney disease, Stage II (mild) 510 mg IV Once in dialysis 06/26/2020 Active Active Problems Problem Noted Date Diagnosed Date History of cerebrovascular accident 08/03/2022 Intracranial aneurysm 08/03/2022 Chronic kidney disease, stage 2 (mild) 2 Iron deficiency anemia 09/30/2021 Essential (primary) hypertension 08/25/2021 Antiphospholipid syndrome 08/25/2021 Anemia in chronic kidney disease 05/03/2019 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 Severe persistent asthma with status asthmaticus 05/03/2019 Type 2 diabetes mellitus Resolved Problems Problem Noted Date Diagnosed Date Resolved Date Iron deficiency anemia 07/31/201908/25 Stage 3a chronic kidney disease 07/31/2019 07/20/2022 Overview (05/20/2020): Update for Diagnosis Load Encounters Date Type Department Care Team Description 06/09/2024 Orders Only [facility] [address] [place] [address] India Davalos Anemia in chronic kidney disease; Other iron deficiency anemia; Chronic kidney disease, stage 2 (mild) 06/05/2024 Telephone [facility] [address] [place] [address] Stephanie Azul, electronic lab technician reminder 05/26/2024 Orders Only [facility] [address] [address] India Davalos Chronic kidney disease, stage 2 (mild); Anemia in chronic kidney disease; Iron deficiency anemia, not otherwise specified 05/05/2024 Telephone [facility] [address] [place] [address] India Davalos 05/05/2024 Orders Only [facility] [address] [place] [address] Kaylyn Vargas Anemia in chronic kidney disease; Iron deficiency anemia, not otherwise specified; Chronic kidney disease, stage 2 (mild) 05/01/2024 Telephone [facility] [address] [place] [address] Olesya Han 05/01/2024 Telephone [facility] [address] [place] [address] Olesya Han 04/28/2024 Orders Only [facility] [address] [place] [address] India Davalos Chronic kidney disease, stage 2 (mild); Anemia in chronic kidney disease; Iron deficiency anemia, not otherwise specified 04/07/2024 Orders Only [facility] [address] [place] [address] Kaylyn Vargas Anemia in chronic kidney disease; Iron deficiency anemia, not otherwise specified; Chronic kidney disease, stage 2 (mild) 04/05/2024 Documentation Only [facility] [address] [place] [address] AnoopIndia henry 04/05/2024 Documentation Only [facility] [address] [place] [address] India Davalos 04/03/2024 Documentation Only [facility] [address] [place] [address] Kaylyn Vargas 03/31/2024 Orders Only [facility] [address] [place] [address] India Davalos Chronic kidney disease, stage 2 (mild); Anemia in chronic kidney disease; Iron deficiency anemia, not otherwise specified 03/23/2024 Documentation Only [facility] [address] [place] [address] India Davalos 03/22/2024 3:00 PM EST Office Visit [facility] [address] [place] [address] Arlene Alston PA Chronic kidney disease, stage 2 (mild) (Primary Dx); Essential (primary) hypertension; Type 2 diabetes mellitus, not otherwise specified (HCC) 03/22/2024 Documentation Only [facility] [address] [place] [address] India Davalos from Last 3 Months Immunizations Name Administration Dates Next Due Hep A / Hep B 10/06/2012,08/29/2012 Hepatitis B 10/27/2023,07/14/2023,06/08/2023 ,02/23/2023 Influenza Whole 03/22/2006 Moderna SARS-COV-2 08/21/2020,07/24/2020 Pneumococcal Polysaccharide 10/20/2011, 7 Td, Unspecified 05/17/2002 Family History Medical History Relation Comments Hypertension Father Cancer Mother Diabetes Mother grandmother Stroke Mother uncle Cancer Sibling 1 Heart disease Sibling 1 Hypertension Sibling 1 Cancer Sibling 2 sister Hypertension Sibling 3 brother Heart disease Sibling 4 brother Relation Status Comments Father Unknown Mother Unknown Sibling 1 Sibling 2 Sibling 3 Sibling 4 Social History Tobacco Use Types Packs/Day Years Used Date Smoking Tobacco: Every Day Cigarettes Tobacco Cessation:Ready to Q uit: Not Asked; Counseling Given: Not Answered Alcohol Use Standard Drinks/Week Comments No 0 (1 standard drink = 0.6 oz pur e alcohol) Comments Unknown Sex and Gender Information Value Date Recorded Sex Assigned at Not on file Legal Sex Female 4:34 PM EST Gender Identity Not on file Sexual Orientation Not on file Last Filed Vital Signs Vital Sign Reading Time Taken Comments Blood Pressure 112/60 03/22/2024 2:59 PM EST Pulse 100 01/26/2024 9:10 AM EDT Temperature 36.4 ??C (97.5 ??F) 01/26/2024 9:10 AM ED T Respiratory Rate 16 07/24/2019 3:52 PM EDT Oxygen Saturation 98% 01/26/2024 9:10 AM EDT Inhaled Oxygen Concentration - - Weight 97.3 kg (214 lb 6.4 oz) 03/22/2024 2:59 P M EST Height 170.2 cm (5' 7 ) 03/22/2024 2:59 PM EST Body Mass Index 33.58 03/22/2024 2:59 PM EST Plan of Treatment Upcoming Encounters Date Type Department Care Team (Late st Contact Info) Description 07/04/2024 2:30 PM EST Office Visit [facility] [place], [address] [place] [address] Juan Jose Li MD [address] [place] [address] Health Maintenance Due Date Last Done Comments Breast Cancer Screening 1960 Colorectal Cancer Screening: Annual FOBT 11/07/2008 Colorectal Cancer Screening: Colonoscopy 11/07/2008 Colorectal Cancer Screening: Sigmoidoscopy 11/07/2008 Pneumococcal Vaccine: Pediat rics (0 to 5 Years) and At-Risk Patients (6 to 64 Years) (3 of 3 - PCV) 10/19/2012 10/20/2011, 01/03/2007 Diabetes: Ophthalmology Exam 12/08/2022 Diabetes: Pedal Pulse Checked 12/08/2022 Diabetes: Sensory Foot Exam 12/08/2022 Diabetes: Visual Foot Exam 12/08/2022 Diabetes: Hemoglobin A1C 09/07/2023 024, 12/08/2022, 08/14/2022, Additional history exists Influenza Vaccine (#1) 2024 03/22/2006 Hepatitis B Vaccine Completed 10/27/2023, 07/14/2023, 06/08/2023, Additional history exists Procedures Procedure Name Priority Date/Time Associated Diagnosis Comments RENAL FUNCTION PANEL Routine 06/07/2024 11:53 AM EST Chronic kidney disease, stage 2 (mild) Anemia in chronic kidney disease Iron deficiency anemia, not otherwise specified FERRITIN Routine 06/07/2024 11:53 AM EST Chronic kidney disease, stage 2 (mild) Anemia in chronic kidney disease Iron deficiency anemia, not otherwise specified IRON PANEL (FE, TIBC, TSAT) Routine 06/07/2024 [...] disease Iron deficiency anemia, not otherwise specified IRON PANEL (FE, TIBC, TSAT) Routine 05/05/2024 [...] disease Iron deficiency anemia, not otherwise specified IRON PANEL (FE, TIBC, TSAT) Routine 03/24/2024 10:37 AM EST Chronic kidney disease, stage 2 (mild) Anemia in chronic kidney disease Iron deficiency anemia, not otherwise specified CBC AND DIFFERENTIAL Routine 03/24/2024 10:37 AM EST Chronic kidney disease, stage 2 (mild) Anemia in chronic kidney disease Iron deficiency anemia, not otherwise specified HEMOGLOBIN A1C Routine 06/08/2023 8:36 AM EST Chronic kidney disease, stage 2 (mild) Essential (primary) hypertension Anemia in chronic kidney disease Antiphospholipid syndrome (HCC) Type 2 diabetes mellitus, not otherwise specified (HCC) Bleeding hemorrhoids from Last 3 Months or Most Recently Relevant to Health Maintenance Results * Iron Panel (Fe, TIBC, TSAT) (06/07/2024 11:53 AM EST) Only the most recent of3 resultswithin the time period is included. TIBC 262 250 - 450 ug/dL [facility] UIBC 205 118 - 369 ug/dL [facility] Iron 57 27 - 139 ug/dL [facility] Iron Saturation (TSat) 22 15 - 55 % [facility] Blood (Blood, Venous) 06/07/2024 11:53 AM EST 06/07/2024 us Barry Reyes MD LAB BLOOD ORDERABLES Final Re sult [facility] [address] [place] [address] * (ABNORMAL) CBC and Differential (06/07/2024 11:53 AM EST) Only the most recent of3 resultswithin the time period is included. WBC 5.5 3.4 - 10.8 x10E3/uL [facility] RBC 5.76(H) 3.77 - 5.28 x10E6/uL [facility] Hemoglobin 11.1 11.1 - 15.9 g/dL [facility] Hematocrit 38.4 34.0 - 46.6 % [facility] MCV 67(L) 79 - 97 fL [facility] MCH 19.3(L) 26.6 - 33.0 pg [facility] MCHC 28.9(L) 31.5 - 35.7 g/dL [facility] RDW 18.8(H) 11.7 - 15.4 % [facility] Platelets 162 150 - 450 x10E3/uL [facility] Neutrophils Relative 59 Not Estab. % [facility] Lymphocytes Relative 31 Not Estab. % [facility] Monocytes 6 Not Estab. % [facility] Eosinophils Relative 2 Not Estab. % [facility] Basophils Relative 1 Not Estab. % [facility] Neutrophils Absolute 3.3 1.4 - 7.0 x10E3/uL [facility] Lymphocytes Absolute 1.7 0.7 - 3.1 x10E3/uL [facility] Monocytes Absolute 0.3 0.1 - 0.9 x10E3/uL [facility] Eosinophils Absolute 0.1 0.0 - 0.4 x10E3/uL [facility] Basophils Absolute 0.0 0.0 - 0.2 x10E3/uL [facility] Immature Granulocytes 1 Not Estab. % [facility] Immature Grans (Absolute) 0.0 0.0 - 0.1 x10E3/uL [facility] Blood (Blood, Venous) 06/07/2024 11:53 AM EST 06/07/2024 Barry Reyes MD LAB BLOOD ORDERABLES Final Re sult [facility] [address] [place] [phone] * Ferritin (06/07/2024 11:53 AM EST) Only the most recent of3 resultswithin the time period is included. Ferritin 102 15 - 150 ng/mL [facility] Blood (Blood, Venous) 06/07/2024 11:53 AM EST 06/07/2024 Barry Reyes MD LAB BLOOD ORDERABLES Final Re sult [facility] [address] [place] [address] * (ABNORMAL) Renal Function Panel (06/07/2024 11:53 AM EST) Only the most recent of3 resultswithin the time period is included. Glucose 168(H) 70 - 99 mg/dL [facility] BUN 17 8 - 27 mg/dL [facility] Creatinine 1.09(H) 0.57 - 1.00 mg/dL [facility] eGFR CKD-EPI CR 2020 57(L) >59 mL/min/1.7 3 [facility] BUN/Creatinine Ratio 16 12 - 28 [facility] Sodium 137 134 - 144 mmol/L [facility] Potassium 4.8 3.5 - 5.2 mmol/L [facility] Chloride 99 96 - 106 mmol/L [facility] Bicarbonate (CO2) 23 20 - 29 mmol/L [facility] Calcium 9.0 8.7 - 10.3 mg/dL [facility] Albumin 4.2 3.9 - 4.9 g/dL [facility] Phosphorus 4.4(H) 3.0 - 4.3 mg/dL [facility] Blood (Blood, Venous) 06/07/2024 11:53 AM EST 06/07/2024 us Barry Reyes MD LAB BLOOD ORDERABLES Final Re sult [facility] [address] [place] [address] * (ABNORMAL) Hemoglobin A1c (06/08/2023 8:36 AM EST) Hemoglobin A1C 7.2(H) (4.0-5.6) % [facility] Comment: MONITORING: In known diabetic patients, hemoglobin A1c targets should be discussed with health care provider. DIAGNOSTIC USE: ??The [place] Diabetes Association (ADA) and the World Health [...] Supplement 1 Testing performed or reported by [facility], a Service of [facility], [address] [place] [address] Luis A Bailey MD, Youth Accommodation Support Worker [facility]# [id number] Blood (Blood, Venous) 06/08/2023 8:36 AM EST 06/08/2023 8:38 AM EST Arlene CARTER LAB BLOOD ORDERABLES Final Re sult [facility] from Last 3 Months or Most Recently Relevant to Health Maintenance Insurance [employer] ([id number]) [place] [id number] Care Teams Clinical Team Manager Relationship Specialty Start Date End Date Sahra Son MD [address] [place] [phone] PCP - General Internal Medicine 10/28/22
--- OUTSIDE RECORDS SUMMARY | 2024-06-12 13:32 | XMS_ITS | Encounter Summary ---
Author Organization [facility] Address [address] [place] [address] Phone Care Team Providers Care Delivery Director Name Role Phone Sahra Son MD Primary Care Provider + Encounter Details Date Type Department Care Team ([facility] Contact Info) Description 10/30/2022 Documentation Only [facility] [address] [place] [address] India Davalos [address] [place] [address] Social History Tobacco Use Types [...] [facility] [address] [place] [address] Juan Jose Li MD [address] [place] [address] [place] [address] documented as of this encounter Visit Diagnoses Not on filedocumented in this encounter Care Teams Delivery Director Relationship Specialty Start Date End Date Sahra Son MD [address] [phone] PCP - General Internal Medicine 10/28/22 documented as of this encounter
== END 2024-06-12 11:16 | disposition home or self-care (01) ==
LOC: HO.ACS 09:11
PROVIDERS: PCP Internal Medicine; Visit Provider Internal Medicine
DX: Z79.01 Long term (current) use of anticoagulants (principal)

== ENCOUNTER → 2024-06-12 09:11 | Outpatient (BNVA) | payer OTHER, SELFPAY | PROVIDERS: PCP Internal Medicine; Visit Provider Internal Medicine | DX: Z86.718 Personal history of other venous thrombosis and embolism (principal); Z79.01 Long term (current) use of anticoagulants; Z51.81 Encounter for therapeutic drug level monitoring | CPT/HCPCS: 85610; 99211 ==

== ENCOUNTER 2024-06-13 07:46 | Outpatient (AMB) | payer OTHER, SELFPAY ==
--- NOTE | 2024-06-13 07:47 | MHC.OFFVIS ---
Vital Signs 06/13/24 07:50 Height 5 ft 7 in Weight 216 lb BMI 33.8 BP 160/78 H Blood Pressure Location Rt brachial Position Sitting Intake Visit Reasons: Seizures Intake Note: Patient presents for seizure disorder vs nonepileptic seizures Allergies codeine [Codeine] Allergy (Severe, Verified 06/13/24 07:51) DIFFICULTY BREATHING Penicillins Allergy (Severe, Verified 06/13/24 07:51) RASH penicillin V Allergy (Intermediate, Verified 06/13/24 07:51) RASH tramadol [Ultram] Allergy (Unknown, Verified 06/13/24 07:51) hallucinations Shellfish Allergy (Severe, Uncoded 06/13/24 07:51) THROAT SWELLING Contrast Allergy PreMed Pack Allergy (Unknown, Uncoded 06/13/24 07:51) TREAT WITH BENADRYL ferrlecit Adverse Reaction (Intermediate, Uncoded 06/13/24 07:51) Rash HPI Comments Details: 63y/o female with multiple medical and psychiatric issues comes for opinion regarding her possible seizure disorder. she is accompanied by her sister . 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 she is followed up by . She started having seizure like episodes 20 years ago. She describes the episode starting with yes yes head tremors, confusion and gen body shaking lasting few seconds to minutes followed by extreme fatigue . she used to have 1-2 a week and used to be on Phenytoin - but developed toxicity ? twice as per patient so was stopped 15 years ago.Phenytoin controlled her seizures. She says she lost all her teeth and multiple fractures because of falls related to seizures.. She is usually confused during the episodes. she has neurogenic bladder . No tongue biting. No family h/o seizures. she has multiple falls . she has h/o anxiety , depression ? schizophrenia. she was seen at [facility] - EEG was done and was told the episodes were nonepileptic. [facility] Medical History (Updated 06/13/24 @ 08:28 by Latrice Garsia MD) Episode of shaking Ectopic Opioid dependence on agonist therapy Pulmonary nodule Hyperthyroiditis Graves disease Gout History of DVT (deep vein thrombosis) History of CVA (cerebrovascular accident) Conversion disorder Tobacco abuse Hiatal hernia Antiphospholipid antibody positive Schizophrenia Osteopenia Glaucoma Hypoglycemia Leukemia Lupus (systemic lupus erythematosus) Neurogenic bladder Fibromyalgia Urinary incontinence Carotid artery aneurysm Psychogenic nonepileptic seizure Thyroid disease Stroke Seizures Osteoporosis Memory loss CKD (chronic kidney disease) Hyperlipidemia HTN (hypertension) Heartburn Heart disease Headache Diabetes Depression COPD (chronic obstructive pulmonary disease) Asthma Arthritis Anemia Surgical History (Updated 06/13/24 @ 08:22 by FUAD Martin) H/O shoulder surgery H/O: hysterectomy Hx of cholecystectomy Family History (Updated 06/13/24 @ 08:00 by FUAD Martin) Father FH: heart attack Lymphoma CHF (congestive heart failure) Mother Breast cancer in female Social History (Updated 06/13/24 @ 08:22 by FUAD Martin) Alcohol intake: never Patient Tobacco Use Status: Current everyday Tobacco user Substance Use Type: Marijuana Physical Exam Vital Signs: Last Vital Signs BP 160/78 H 06/13/24 07:50 BMI result Body Mass Index 33.8 Const General: cooperative, healthy appearing and comfortable Nutritional Appearance: average body habitus Orientation/consciousness: patient oriented x3 Neuro General: patient oriented x3, gait normal, tone normal, moves all extremities and no focal motor deficits Cranial nerves: Yes Facial sensation intact/muscles of mastication intact, Yes Bilaterally intact EOM present, Yes Nystagmus not present, Yes Normal facial strength present, Yes Midline tongue present, Yes Symmetric palate elevation present and Yes Ability to bilaterally elevate shoulders present Cognition (Neuro): normal cognition Gait exam (Neuro): Normal gait present Motor exam (neuro): 5/5 motor strength present throughout and Normal motor muscle tone present throughout Deep tendon reflexes (DTR's): Right triceps reflex intensity grade: 1+, Left triceps reflex intensity grade: 1+, Rt Biceps (C5, C6): 1+, Left biceps reflex intensity grade: 1+, Right brachioradialis reflex intensity grade: 1+, Left brachioradialis reflex intensity grade: 1+, Right patellar reflex intensity grade: 1+ and Left patellar reflex intensity grade: 1+ Assessment & Plan Assessment & Plan (1) Episode of shaking: Comment: ? seizures Code(s): R25.1 - Tremor, unspecified Category: Medical (2) History of left common carotid artery stent placement: Code(s): Z98.890 - Other specified postprocedural states; Z95.828 - Presence of other vascular implants and grafts (3) Psychogenic nonepileptic seizure: Code(s): F44.5 - Conversion disorder with seizures or convulsions Category: Medical (4) Seizures: Code(s): R56.9 - Unspecified convulsions Plan I will review her EEG form [facility] Reviewed her MRI brain , orbits and CTA brain and neck . Repeat EEG Trial on Depakote ER 250 mg bid - monitor INR as it can increase her warfarin levels . F/u with psychiatry counseled on good diabetes control , smoking cessation etc. Orders: Orders EEG electroencephalogram Today F44.5 - Conversion disorder with seizures or convulsions Medications: New divalproex ER (Depakote ER) 250 mg PO BID 60 tabs 3RF Coding Level of Care Code New Pt Level 4 (78313) Complex EM visit Add On G2211 Diagnoses Episode of shaking R25.1 History of left common carotid artery stent placement Z98.890; Z95.828 Psychogenic nonepileptic seizure F44.5 Seizures R56.9
--- OUTSIDE RECORDS SUMMARY | 2024-06-13 07:49 | XMS_ITS | Encounter Summary ---
Author Organization [facility] Address [address] [place] [address] Phone Care Team Providers Care Clinical Services Manager Name Role Phone Sahra Son MD Primary Care Provider + Encounter Details Date Type Department Care Team (Late Contact Info) Description 06/22/2022 Documentation Only [facility] [address] [place] [address] India Davalos [address] [place] [address] Social History Tobacco Use Types [...] [facility] [address] [place] [address] Juan Jose Li MD [address] [place] [address] [place] [address] documented as of this encounter Visit Diagnoses Not on filedocumented in this encounter Care Teams Clinical Services Manager Relationship Specialty Start Date End Date Sahra Son MD [address] [phone] PCP - General Internal Medicine 10/28/22 documented as of this encounter
--- OUTSIDE RECORDS SUMMARY | 2024-06-13 07:49 | XMS_ITS | Encounter Summary ---
Author Organization [facility] Address [address] [place] [address] Phone Care Team Providers Care Account Developer Name Role Phone Sahra oSn MD Primary Care Provider + Encounter Details Date Type Department Care Team (Late Contact Info) Description 09/28/2022 Documentation Only [facility] [address] [place] [address] India Davalos [address] [place] [address] Social History Tobacco Use Types [...] Visit [facility] [address] [place] [address] Juan Jose Li MD [address] [place] [address] [place] [address] documented as of this encounter Visit Diagnoses Not on filedocumented in this encounter Care Teams Account Developer Relationship Specialty Start Date End Date Sahra Son MD [address] [phone] PCP - General Internal Medicine 10/28/22 documented as of this encounter
--- OUTSIDE RECORDS SUMMARY | 2024-06-13 07:49 | XMS_ITS | Encounter Summary ---
Author Organization [facility] Address [address] [place] [address] Phone Care Team Providers Care Tool Maintenance Worker Name Role Phone Sahra Son MD Primary Care Provider + Encounter Details Date Type Department Care Team (Late Contact Info) Description 04/05/2024 Documentation Only [facility] [address] [place] [address] India Davalos [address] [place] [address] Social History Tobacco Use Types [...] Visit [facility] [address] [place] [address] Juan Jose Li MD [address] [place] [address] [place] [address] documented as of this encounter Visit Diagnoses Not on filedocumented in this encounter Care Teams Tool Maintenance Worker Relationship Specialty Start Date End Date Sahra Son MD [address] [id number] PCP - General Internal Medicine 10/28/22 documented as of this encounter
--- OUTSIDE RECORDS SUMMARY | 2024-06-13 07:49 | XMS_ITS | Encounter Summary ---
Author Organization [facility] Address [address] [place] [address] Phone Care Team Providers Care Basket Machine Operator Name Role Phone Sahra Son MD Primary Care Provider + Encounter Details Date Type Department Care Team (Late Contact Info) Description 03/31/2024 Orders Only [facility] [address] [place] [address] India Davalos [address] [place] [address] Chronic kidney disease, stage 2 [...] Visit [facility] [address] [place] [address] Juan Jose Li MD [address] [place] [address] [place] [address] documented as of this encounter Visit Diagnoses Diagnosis Chronic kidney disease, stage 2 (mild) Anemia in chronic kidney disease Iron deficiency anemia, not otherwise specified documented in this encounter Care Teams Basket Machine Operator Relationship Specialty Start Date End Date Sahra Son MD [address] [place] [address] PCP - General Internal Medicine 10/28/22 documented as of this encounter
--- OUTSIDE RECORDS SUMMARY | 2024-06-13 07:49 | XMS_ITS | Encounter Summary ---
Author Organization [facility] Address [address] [place] [address] Phone Care Team Providers Care Freight Elevator Erector Name Role Phone Sahra Son MD Primary Care Provider + Encounter Details Date Type Department Care Team (Late Contact Info) Description 11/11/2023 Documentation Only [facility] [address] [place] [address] India Davalos [address] [place] [address] Social History Tobacco Use Types [...] Visit [facility] [address] [place] [address] Juan Jose Li MD [address] [place] [address] [place] [address] documented as of this encounter Visit Diagnoses Not on filedocumented in this encounter Care Teams Freight Elevator Erector Relationship Specialty Start Date End Date Sahra Son MD [address] [id number] PCP - General Internal Medicine 10/28/22 documented as of this encounter
--- OUTSIDE RECORDS SUMMARY | 2024-06-13 07:49 | XMS_ITS | Encounter Summary ---
Author Organization [facility] Address [address] [place] [address] Phone Care Team Providers Care Engineering Production Worker Name Role Phone Sahra Son MD Primary Care Provider + Encounter Details Date Type Department Care Team (Late Contact Info) Description 08/11/2022 Documentation Only [facility] [address] [place] [address] India Davalos [address] [place] [address] Social History Tobacco Use Types [...] Visit [facility] [address] [place] [address] Juan Jose Li MD [address] [place] [address] [place] [address] documented as of this encounter Visit Diagnoses Not on filedocumented in this encounter Care Teams Engineering Production Worker Relationship Specialty Start Date End Date Sahra Son MD [address] [id number] PCP - General Internal Medicine 10/28/22 documented as of this encounter
--- OUTSIDE RECORDS SUMMARY | 2024-06-13 07:49 | XMS_ITS | Encounter Summary ---
Author Organization [facility] Address [address] [place] [address] Phone Care Team Providers Care Service Greeter Name Role Phone Sahra Son MD Primary Care Provider + Encounter Details Date Type Department Care Team (Late Contact Info) Description 06/16/2022 Documentation Only [facility] [address] [place] [address] India Davalos [address] [place] [address] Social History Tobacco Use Types [...] Visit [facility] [address] [place] [address] Juan Jose Li MD [address] [place] [address] [place] [address] documented as of this encounter Visit Diagnoses Not on filedocumented in this encounter Care Teams Service Greeter Relationship Specialty Start Date End Date Sahra Son MD [address] [id number] PCP - General Internal Medicine 10/28/22 documented as of this encounter
--- OUTSIDE RECORDS SUMMARY | 2024-06-13 07:49 | XMS_ITS | Encounter Summary ---
Author Organization [facility] Address [address] [place] [address] Phone Care Team Providers Care Research Hydraulic Engineer Name Role Phone Sahra Son MD Primary Care Provider + Encounter Details Date Type Department Care Team (Late Contact Info) Description 12/31/2023 Documentation Only [facility] [address] [place] [address] India Davalos [address] [place] [address] Social History Tobacco Use Types [...] Visit [facility] [address] [place] [address] Juan Jose Li MD [address] [place] [address] [place] [address] documented as of this encounter Visit Diagnoses Not on filedocumented in this encounter Care Teams Research Hydraulic Engineer Relationship Specialty Start Date End Date Sahra Son MD [address] [phone] PCP - General Internal Medicine 10/28/22 documented as of this encounter
--- OUTSIDE RECORDS SUMMARY | 2024-06-13 07:49 | XMS_ITS | Encounter Summary ---
Author Organization [facility] Address [address] [place] [address] Phone Care Team Providers Care Employee Placement Specialist Name Role Phone Sahra Son MD Primary Care Provider + Encounter Details Date Type Department Care Team (Late Contact Info) Description 11/17/2023 Documentation Only [facility] [address] [place] [address] India Davalos [address] [place] [address] Social History Tobacco Use Types [...] Visit [facility] [address] [place] [address] Juan Jose Li MD [address] [place] [address] [place] [address] documented as of this encounter Visit Diagnoses Not on filedocumented in this encounter Care Teams Employee Placement Specialist Relationship Specialty Start Date End Date Sahra Son MD [address] [phone] PCP - General Internal Medicine 10/28/22 documented as of this encounter
--- OUTSIDE RECORDS SUMMARY | 2024-06-13 07:49 | XMS_ITS | Encounter Summary ---
Author Organization [facility] Address [address] [place] [address] Phone Care Team Providers Care Rn Acls Name Role Phone Sahra Son MD Primary Care Provider + Encounter Details Date Type Department Care Team ([facility] Contact Info) Description 03/11/2023 Documentation Only [facility] [address] [place] [address] India Davalos [address] [place] [address] Social History Tobacco Use Types [...] [facility] [address] [place] [address] Juan Jose Li MD [address] [place] [address] [place] [address] documented as of this encounter Visit Diagnoses Not on filedocumented in this encounter Care Teams Rn Acls Relationship Specialty Start Date End Date Sahra Son MD [address] [phone] PCP - General Internal Medicine 10/28/22 documented as of this encounter
--- OUTSIDE RECORDS SUMMARY | 2024-06-13 07:49 | XMS_ITS | Encounter Summary ---
Author Organization [facility] Address [address] [place] [address] Phone Care Team Providers Care Wire Annealer Name Role Phone Sahra Son MD Primary Care Provider + Encounter Details Date Type Department Care Team ([facility] Contact Info) Description 12/23/2021 Documentation Only [facility] [address] [place] [address] Juan Jose Li MD [address] [place] [address] [place] [address] Social History Tobacco Use Types [...] [facility] [address] [place] [address] Juan Jose Li MD [address] [place] [address] [place] [address] documented as of this encounter Visit Diagnoses Not on filedocumented in this encounter Care Teams Wire Annealer Relationship Specialty Start Date End Date Sahra Son MD [address] [phone] PCP - General Internal Medicine 10/28/22 documented as of this encounter
--- OUTSIDE RECORDS SUMMARY | 2024-06-13 07:49 | XMS_ITS | Encounter Summary ---
Author Organization [facility] Address [address] [place] [address] Phone Care Team Providers Care Sales Professional Name Role Phone Sahra Son MD Primary Care Provider + Encounter Details Date Type Department Care Team (Late Contact Info) Description 09/28/2022 Documentation Only [facility] [address] [place] [address] India Davalos [address] [place] [address] Social History Tobacco Use Types [...] Visit [facility] [address] [place] [address] Juan Jose Li MD [address] [place] [address] [place] [address] documented as of this encounter Visit Diagnoses Not on filedocumented in this encounter Care Teams Sales Professional Relationship Specialty Start Date End Date Sahra Son MD [address] [phone] PCP - General Internal Medicine 10/28/22 documented as of this encounter
--- OUTSIDE RECORDS SUMMARY | 2024-06-13 07:49 | XMS_ITS | Encounter Summary ---
Author Organization [facility] Address [address] [place] [address] Phone Care Team Providers Care Underground Drill Operator Name Role Phone Sahra Son MD Primary Care Provider + Encounter Details Date Type Department Care Team ([facility] Contact Info) Description 04/08/2022 Documentation Only [facility] [address] [place] [address] India Davalos [address] [place] [address] Social History Tobacco Use Types [...] Visit [facility] [address] [place] [address] Juan Jose Li MD [address] [place] [address] [place] [address] documented as of this encounter Visit Diagnoses Not on filedocumented in this encounter Care Teams Underground Drill Operator Relationship Specialty Start Date End Date Sahra Son MD [address] [phone] PCP - General Internal Medicine 10/28/22 documented as of this encounter
--- OUTSIDE RECORDS SUMMARY | 2024-06-13 07:49 | XMS_ITS | Encounter Summary ---
Author Organization [facility] Address [address] [place] [address] Phone Care Team Providers Care Academic Advising Director Name Role Phone Sahra Son MD Primary Care Provider + Encounter Details Date Type Department Care Team ([facility] Contact Info) Description 03/11/2023 Documentation Only [facility] [address] [place] [address] India Davalos [address] [place] [address] Social History Tobacco Use Types [...] [facility] [address] [place] [address] Juan Jose Li MD [address] [place] [address] [place] [address] documented as of this encounter Visit Diagnoses Not on filedocumented in this encounter Care Teams Academic Advising Director Relationship Specialty Start Date End Date Sahra Son MD [address] [phone] PCP - General Internal Medicine 10/28/22 documented as of this encounter
--- OUTSIDE RECORDS SUMMARY | 2024-06-13 07:49 | XMS_ITS | Encounter Summary ---
Author Organization [facility] Address [address] [place] [address] Phone Care Team Providers Care Forging Press Lever Tender Name Role Phone Sahra Son MD Primary Care Provider + Encounter Details Date Type Department Care Team (Late Contact Info) Description 11/11/2023 Documentation Only [facility] [address] [place] [address] India Davalos [address] [place] [address] Social History Tobacco Use Types [...] [facility] [address] [place] [address] Juan Jose Li MD [address] [place] [address] [place] [address] documented as of this encounter Visit Diagnoses Not on filedocumented in this encounter Care Teams Forging Press Lever Tender Relationship Specialty Start Date End Date Sahra Son MD [address] [phone] PCP - General Internal Medicine 10/28/22 documented as of this encounter
--- OUTSIDE RECORDS SUMMARY | 2024-06-13 07:49 | XMS_ITS | Encounter Summary ---
Author Organization [facility] Address [address] [place] [address] Phone Care Team Providers Care Freight Router Name Role Phone Sahra Son MD Primary Care Provider + Encounter Details Date Type Department Care Team (Late Contact Info) Description 06/18/2021 Documentation Only [facility] [address] [place] [address] India Davalos [address] [place] [address] Social History Tobacco Use Types [...] Visit [facility] [address] [place] [address] Juan Jose Li MD [address] [place] [address] [place] [address] documented as of this encounter Visit Diagnoses Not on filedocumented in this encounter Care Teams Freight Router Relationship Specialty Start Date End Date Sahra Son MD [address] [phone] PCP - General Internal Medicine 10/28/22 documented as of this encounter
--- OUTSIDE RECORDS SUMMARY | 2024-06-13 07:49 | XMS_ITS | Encounter Summary ---
Author Organization [facility] Address [address] [place] [address] Phone Care Team Providers Care Chimney Builder Name Role Phone Sahra Son MD Primary Care Provider + Encounter Details Date Type Department Care Team (Late Contact Info) Description 11/19/2023 Documentation Only [facility] [address] [place] [address] India Davalos [address] [place] [address] Social History Tobacco Use Types [...] Visit [facility] [address] [place] [address] Juan Jose Li MD [address] [place] [address] [place] [address] documented as of this encounter Visit Diagnoses Not on filedocumented in this encounter Care Teams Chimney Builder Relationship Specialty Start Date End Date Sahra Son MD [address] [phone] PCP - General Internal Medicine 10/28/22 documented as of this encounter
--- OUTSIDE RECORDS SUMMARY | 2024-06-13 07:49 | XMS_ITS | Encounter Summary ---
Author Organization [facility] Address [address] [place] [address] Phone Care Team Providers Care Compounding Assistant Name Role Phone Sahra Son MD Primary Care Provider + Encounter Details Date Type Department Care Team ([facility] Contact Info) Description 03/11/2023 Documentation Only [facility] [address] [place] [address] India Davalos [address] [place] [address] Social History Tobacco Use Types [...] [facility] [address] [place] [address] Juan Jose Li MD [address] [place] [address] [place] [address] documented as of this encounter Visit Diagnoses Not on filedocumented in this encounter Care Teams Compounding Assistant Relationship Specialty Start Date End Date Sahra Son MD [address] [phone] PCP - General Internal Medicine 10/28/22 documented as of this encounter
--- OUTSIDE RECORDS SUMMARY | 2024-06-13 07:49 | XMS_ITS | Encounter Summary ---
Author Organization [facility] Address [address] [place] [address] Phone Care Team Providers Care Realtime Captioner Name Role Phone Sahra Son MD Primary Care Provider + Encounter Details Date Type Department Care Team (Late Contact Info) Description 01/31/2024 Orders Only [facility] [address] [address] Arlene Alston PA [address] [place] [address] [place] [address] Chronic kidney disease, stage 2 [...] [facility] [address] [place] [address] Juan Jose Li MD [address] [place] [address] [place] [address] documented as of this encounter Visit Diagnoses Diagnosis Chronic kidney disease, stage 2 (mild) Essential (primary) hypertension Iron deficiency anemia, not otherwise specified Type 2 diabetes mellitus, not otherwise specified (HCC) Antiphospholipid syndrome (HCC) documented in this encounter Care Teams Realtime Captioner Relationship Specialty Start Date End Date Sahra Son MD [address] [phone] PCP - General Internal Medicine 10/28/22 documented as of this encounter
--- OUTSIDE RECORDS SUMMARY | 2024-06-13 07:49 | XMS_ITS | Encounter Summary ---
Author Organization [facility] Address [address] [place] [address] Phone Care Team Providers Care Hat And Cap Opener Name Role Phone Sahra Son MD Primary Care Provider + Encounter Details Date Type Department Care Team ([facility] Contact Info) Description 09/18/2022 Documentation Only [facility] [address] [place] [address] India Davalos [address] [place] [address] Social History Tobacco Use Types [...] [facility] [address] [place] [address] Juan Jose Li MD [address] [place] [address] [place] [address] documented as of this encounter Visit Diagnoses Not on filedocumented in this encounter Care Teams Hat And Cap Opener Relationship Specialty Start Date End Date Sahra Son MD [address] [phone] PCP - General Internal Medicine 10/28/22 documented as of this encounter
--- OUTSIDE RECORDS SUMMARY | 2024-06-13 07:49 | XMS_ITS | Encounter Summary ---
Author Organization [facility] Address [address] [place] [address] Phone Care Team Providers Care Berry Picker Machine Operator Name Role Phone Sahra Son MD Primary Care Provider + Encounter Details Date Type Department Care Team (Late Contact Info) Description 09/28/2022 Documentation Only [facility] [address] [place] [address] India Davalos [address] [place] [address] Social History Tobacco Use Types [...] Visit [facility] [address] [place] [address] Juan Jose Li MD [address] [place] [address] [place] [address] documented as of this encounter Visit Diagnoses Not on filedocumented in this encounter Care Teams Berry Picker Machine Operator Relationship Specialty Start Date End Date Sahra Son MD [address] [phone] PCP - General Internal Medicine 10/28/22 documented as of this encounter
--- OUTSIDE RECORDS SUMMARY | 2024-06-13 07:49 | XMS_ITS | Encounter Summary ---
Author Organization [facility] Address [address] [place] [address] Phone Care Team Providers Care Editor City Name Role Phone Sahra Son MD Primary Care Provider + Encounter Details Date Type Department Care Team ([facility] Contact Info) Description 05/01/2024 Telephone [facility] [address] [place] [address] Olesya Han [address] [place] [address] Social History Tobacco Use Types [...] Upcoming Encounters Date Type Department Care Team ([facility] Contact Info) Description 07/04/2024 2:30 PM EST Office Visit [facility] [address] [place] [address] Juan Jose Li MD [address] [place] [address] [place] [address] documented as of this encounter Visit Diagnoses Not on filedocumented in this encounter Care Teams Editor City Relationship Specialty Start Date End Date Sahra Son MD [address] [phone] PCP - General Internal Medicine 10/28/22 documented as of this encounter
--- OUTSIDE RECORDS SUMMARY | 2024-06-13 07:49 | XMS_ITS | Encounter Summary ---
Author Organization [facility] Address [address] [place] [address] Phone Care Team Providers Care Mailroom Manager Name Role Phone Sahra Son MD Primary Care Provider + Encounter Details Date Type Department Care Team (Late Contact Info) Description 11/30/2023 Documentation Only [facility] [address] [place] [address] India Davalos [address] [place] [address] Social History Tobacco Use Types [...] Visit [facility] [address] [place] [address] Juan Jose Li MD [address] [place] [address] [place] [address] documented as of this encounter Visit Diagnoses Not on filedocumented in this encounter Care Teams Mailroom Manager Relationship Specialty Start Date End Date Sahra Son MD [address] [phone] PCP - General Internal Medicine 10/28/22 documented as of this encounter
--- OUTSIDE RECORDS SUMMARY | 2024-06-13 07:49 | XMS_ITS | Encounter Summary ---
Author Organization [facility] Address [address] [place] [address] Phone Care Team Providers Care Pressroom Supervisor Name Role Phone Sahra Son MD Primary Care Provider + Encounter Details Date Type Department Care Team (Late Contact Info) Description 06/17/2022 Documentation Only [facility] [address] [place] [address] India Davalos [address] [place] [address] Social History Tobacco Use Types [...] Visit [facility] [address] [place] [address] Juan Jose Li MD [address] [place] [address] [place] [address] documented as of this encounter Visit Diagnoses Not on filedocumented in this encounter Care Teams Pressroom Supervisor Relationship Specialty Start Date End Date Sahra Son MD [address] [phone] PCP - General Internal Medicine 10/28/22 documented as of this encounter
--- OUTSIDE RECORDS SUMMARY | 2024-06-13 07:49 | XMS_ITS | Encounter Summary ---
Author Organization [facility] Address [address] [place] [address] Phone Care Team Providers Care Firewood Cutter Name Role Phone Sahra Son MD Primary Care Provider + Encounter Details Date Type Department Care Team (Late Contact Info) Description 11/11/2023 Documentation Only [facility] [address] [place] [address] India Davalos [address] [place] [address] Social History Tobacco Use Types [...] [facility] [address] [place] [address] Juan Jose Li MD [address] [place] [address] [place] [address] documented as of this encounter Visit Diagnoses Not on filedocumented in this encounter Care Teams Firewood Cutter Relationship Specialty Start Date End Date Sahra Son MD [address] [phone] PCP - General Internal Medicine 10/28/22 documented as of this encounter
--- OUTSIDE RECORDS SUMMARY | 2024-06-13 07:49 | XMS_ITS | Encounter Summary ---
Author Organization [facility] Address [address] [place] [address] Phone Care Team Providers Care Rigger Supervisor Name Role Phone Sahra Son MD Primary Care Provider + Encounter Details Date Type Department Care Team (Late Contact Info) Description 03/03/2024 Orders Only [facility] [address] [place] [address] India Davalos [address] [place] [address] Chronic kidney disease, stage 2 [...] Visit [facility] [address] [place] [address] Juan Jose Li MD [address] [place] [address] [place] [address] documented as of this encounter [...] Glucose 152(H) 70 - 99 mg/dL [facility] BUN 16 8 - 27 mg/dL [facility] Creatinine 0.98 0.57 - 1.00 mg/dL [facility] eGFR CKD-EPI CR 2020 64 >59 mL/min/1.7 3 [facility] BUN/Creatinine Ratio 16 12 - 28 [facility] Sodium 137 134 - 144 mmol/L [facility] Potassium 4.8 3.5 - 5.2 mmol/L [facility] Chloride 101 96 - 106 mmol/L [facility] Bicarbonate (CO2) 22 20 - 29 mmol/L [facility] Calcium 8.8 8.7 - 10.3 mg/dL [facility] Albumin 4.0 3.9 - 4.9 g/dL [facility] Phosphorus 4.0 3.0 - 4.3 mg/dL [facility] Blood (Blood, Venous) 03/24/2024 10:37 AM EST 03/24/2024 Barry Reyes MD LAB BLOOD ORDERABLES Final Re sult Performing Organization Address City/[facility]/ZIP Co de Phone Number [facility] [address] [place] [address] * Ferritin (03/24/2024 10:37 AM EST) Ferritin 37 15 - 150 ng/mL [facility] Blood (Blood, Venous) 03/24/2024 10:37 AM EST 03/24/2024 Barry Reyes MD LAB BLOOD ORDERABLES Final Re sult Performing Organization Address [facility] de Phone Number [facility] [address] [place] [address] * Iron Panel (Fe, TIBC, TSAT) (03/24/2024 10:37 AM EST) TIBC 293 250 - 450 ug/dL [facility] UIBC 247 118 - 369 ug/dL [facility] Iron 46 27 - 139 ug/dL [facility] Iron Saturation (TSat) 16 15 - 55 % [facility] Blood (Blood, Venous) 03/24/2024 10:37 AM EST 03/24/2024 Barry Reyes MD LAB BLOOD ORDERABLES Final Re sult Performing Organization Address City/[facility]/ZIP Co de Phone Number [facility] [address] [place] [address] * (ABNORMAL) CBC and Differential (03/24/2024 10:37 AM EST) [facility] Signature WBC 6.0 3.4 - 10.8 x10E3/uL [facility] RBC 5.21 3.77 - 5.28 x10E6/uL [facility] Hemoglobin 10.0(L) 11.1 - 15.9 g/dL [facility] Hematocrit 35.3 34.0 - 46.6 % [facility] MCV 68(L) 79 - 97 fL [facility] MCH 19.2(L) 26.6 - 33.0 pg [facility] MCHC 28.3(L) 31.5 - 35.7 g/dL [facility] RDW 19.4(H) 11.7 - 15.4 % [facility] Platelets 186 150 - 450 x10E3/uL [facility] Neutrophils Relative 65 Not Estab. % [facility] Lymphocytes Relative 26 Not Estab. % [facility] Monocytes 6 Not Estab. % [facility] Eosinophils Relative 2 Not Estab. % [facility] Basophils Relative 1 Not Estab. % [facility] Neutrophils Absolute 3.9 1.4 - 7.0 x10E3/uL [facility] Lymphocytes Absolute 1.5 0.7 - 3.1 x10E3/uL [facility] Monocytes Absolute 0.3 0.1 - 0.9 x10E3/uL [facility] Eosinophils Absolute 0.1 0.0 - 0.4 x10E3/uL [facility] Basophils Absolute 0.0 0.0 - 0.2 x10E3/uL [facility] Immature Granulocytes 0 Not Estab. % [facility] Immature Grans (Absolute) 0.0 0.0 - 0.1 x10E3/uL [facility] Blood (Blood, Venous) 03/24/2024 10:37 AM EST 03/24/2024 us Barry Reyes MD LAB BLOOD ORDERABLES Final Re sult [facility] [address] [place] [address] documented in this encounter Visit Diagnoses Diagnosis Chronic kidney disease, stage 2 (mild) Anemia in chronic kidney disease Iron deficiency anemia, not otherwise specified documented in this encounter Care Teams Rigger Supervisor Relationship Specialty Start Date End Date Sahra Son MD [address] [place] [phone] PCP - General Internal Medicine 10/28/22 documented as of this encounter
--- OUTSIDE RECORDS SUMMARY | 2024-06-13 07:49 | XMS_ITS | Encounter Summary ---
Author Organization [facility] Address [address] [place] [address] Phone Care Team Providers Care Distribution Transformer Assembler Name Role Phone Sahra Son MD Primary Care Provider + Encounter Details Date Type Department Care Team (Late Contact Info) Description 06/09/2024 Orders Only [facility] [address] [place] [address] India Davalos [address] [place] [address] Anemia in chronic kidney disease; [...] Visit [facility] [address] [place] [address] Juan Jose Li MD [address] [place] [address] documented as of this encounter Visit Diagnoses Diagnosis Anemia in chronic kidney disease Other iron deficiency anemia Chronic kidney disease, stage 2 (mild) documented in this encounter Care Teams Distribution Transformer Assembler Relationship Specialty Start Date End Date Cherella, Sahra M, MD [address] [place] [address] PCP - General Internal Medicine 10/28/22 documented as of this encounter
--- OUTSIDE RECORDS SUMMARY | 2024-06-13 07:49 | XMS_ITS | Encounter Summary ---
Author Organization [facility] Address [address] [place] [address] Phone Care Team Providers Care Mid Level Clinician Name Role Phone Sahra Son MD Primary Care Provider + Encounter Details Date Type Department Care Team (Late Contact Info) Description 03/22/2024 Documentation Only [facility] [address] [place] [address] India Davalos [address] [place] [address] Social History Tobacco Use Types [...] [facility] [address] [address] Juan Jose Li MD [address] [place] [address] [place] [address] documented as of this encounter Visit Diagnoses Not on filedocumented in this encounter Care Teams Mid Level Clinician Relationship Specialty Start Date End Date Sahra Son MD [address] [phone] PCP - General Internal Medicine 10/28/22 documented as of this encounter
--- OUTSIDE RECORDS SUMMARY | 2024-06-13 07:49 | XMS_ITS | Encounter Summary ---
Author Organization [facility] Address [address] [place] [address] Phone Care Team Providers Care Avionics Manager Name Role Phone Sahra Son MD Primary Care Provider + Encounter Details Date Type Department Care Team (Late Contact Info) Description 03/23/2024 Documentation Only [facility] [address] [place] [address] India Davalos [address] [place] [address] Social History Tobacco Use Types [...] [facility] [address] [place] [address] Juan Jose Li MD [address] [place] [address] [place] [address] documented as of this encounter Visit Diagnoses Not on filedocumented in this encounter Care Teams Avionics Manager Relationship Specialty Start Date End Date Sahra Son MD [address] [phone] PCP - General Internal Medicine 10/28/22 documented as of this encounter
--- OUTSIDE RECORDS SUMMARY | 2024-06-13 07:49 | XMS_ITS | Encounter Summary ---
Author Organization [facility] Address [address] [place] [address] Phone Care Team Providers Care Electric Detector Operator Name Role Phone Sahra Son MD Primary Care Provider + Encounter Details Date Type Department Care Team (Late Contact Info) Description 04/28/2024 Orders Only [facility] [address] [place] [address] India Davalos [address] [place] [address] Chronic kidney disease, stage 2 [...] Visit [facility] [address] [place] [address] Juan Jose Li MD [address] [place] [address] [place] [address] documented as of this encounter [...] Glucose 153(H) 70 - 99 mg/dL [facility] BUN 17 8 - 27 mg/dL [facility] Creatinine 0.98 0.57 - 1.00 mg/dL [facility] eGFR CKD-EPI CR 2020 64 >59 mL/min/1.7 3 [facility] BUN/Creatinine Ratio 17 12 - 28 [facility] Sodium 142 134 - 144 mmol/L [facility] Potassium 5.0 3.5 - 5.2 mmol/L [facility] Chloride 106 96 - 106 mmol/L [facility] Bicarbonate (CO2) 23 20 - 29 mmol/L [facility] Calcium 8.9 8.7 - 10.3 mg/dL [facility] Albumin 3.9 3.9 - 4.9 g/dL [facility] Phosphorus 3.9 3.0 - 4.3 mg/dL [facility] Blood (Blood, Venous) 05/05/2024 9:18 AM EST 05/05/2024 Barry Reyes MD LAB BLOOD ORDERABLES Final Re sult Performing Organization Address City/[facility]/ZIP Co de Phone Number [facility] [address] [place] [address] * (ABNORMAL) Ferritin (05/05/2024 9:18 AM EST) Ferritin 282(H) 15 - 150 ng/mL [facility] Blood (Blood, Venous) 05/05/2024 9:18 AM EST 05/05/2024 Barry Reyes MD LAB BLOOD ORDERABLES Final Re sult Performing Organization Address City/[facility] de Phone Number [facility] [address] [place] [address] * Iron Panel (Fe, TIBC, TSAT) (05/05/2024 9:18 AM EST) TIBC 277 250 - 450 ug/dL [facility] UIBC 210 118 - 369 ug/dL [facility] Iron 67 27 - 139 ug/dL [facility] Iron Saturation (TSat) 24 15 - 55 % [facility] Blood (Blood, Venous) 05/05/2024 9:18 AM EST 05/05/2024 Barry Reyes MD LAB BLOOD ORDERABLES Final Re sult Performing Organization Address City/[facility]/ZIP Co de Phone Number [facility] [address] [place] [address] * (ABNORMAL) CBC and Differential (05/05/2024 9:18 AM EST) [facility] WBC 5.6 3.4 - 10.8 x10E3/uL [facility] RBC 5.33(H) 3.77 - 5.28 x10E6/uL [facility] Hemoglobin 10.2(L) 11.1 - 15.9 g/dL [facility] Hematocrit 35.0 34.0 - 46.6 % [facility] MCV 66(L) 79 - 97 fL [facility] MCH 19.1(L) 26.6 - 33.0 pg [facility] MCHC 29.1(L) 31.5 - 35.7 g/dL [facility] RDW 20.1(H) 11.7 - 15.4 % [facility] Platelets 163 150 - 450 x10E3/uL [facility] Neutrophils Relative 64 Not Estab. % [facility] Lymphocytes Relative 26 Not Estab. % [facility] Monocytes 6 Not Estab. % [facility] Eosinophils Relative 3 Not Estab. % [facility] Basophils Relative 1 Not Estab. % [facility] Neutrophils Absolute 3.6 1.4 - 7.0 x10E3/uL [facility] Lymphocytes Absolute 1.5 0.7 - 3.1 x10E3/uL [facility] Monocytes Absolute 0.3 0.1 - 0.9 x10E3/uL [facility] Eosinophils Absolute 0.2 0.0 - 0.4 x10E3/uL [facility] Basophils Absolute 0.0 0.0 - 0.2 x10E3/uL [facility] Immature Granulocytes 0 Not Estab. % [facility] Immature Grans (Absolute) 0.0 0.0 - 0.1 x10E3/uL [facility] Blood (Blood, Venous) 05/05/2024 9:18 AM EST 05/05/2024 us Barry Reyes MD LAB BLOOD ORDERABLES Final Re sult [facility] [address] [place] [address] documented in this encounter Visit Diagnoses Diagnosis Chronic kidney disease, stage 2 (mild) Anemia in chronic kidney disease Iron deficiency anemia, not otherwise specified documented in this encounter Care Teams Electric Detector Operator Relationship Specialty [place] [address] [place] [address] PCP - General Internal Medicine 10/28/22 documented as of this encounter
--- OUTSIDE RECORDS SUMMARY | 2024-06-13 07:49 | XMS_ITS | Encounter Summary ---
Author Organization [facility] Address [address] [place] [address] Phone Care Team Providers Care Peer Financial Counselor Name Role Phone Sahra Son MD Primary Care Provider + Encounter Details Date Type Department Care Team (Late Contact Info) Description 06/30/2020 Orders Only [facility] [address] [place] [address] Carol Whelan [address] [place] [address] Iron deficiency anemia, not otherwise [...] Visit [facility] [address] [place] [address] Juan Jose Li MD [address] [place] [address] documented as of this encounter Visit Diagnoses Diagnosis Iron deficiency anemia, not otherwise specified Chronic kidney disease, Stage II (mild) documented in this encounter Care Teams Peer Financial Counselor Relationship Specialty Start Date End Date Sahra Son MD [address] [place] [address] PCP - General Internal Medicine 10/28/22 documented as of this encounter
--- OUTSIDE RECORDS SUMMARY | 2024-06-13 07:49 | XMS_ITS | Encounter Summary ---
Author Organization [facility] Address [address] [place] [address] Phone Care Team Providers Care Magisterial District Judge Name Role Phone Sahra Son MD Primary Care Provider + Encounter Details Date Type Department Care Team (Late Contact Info) Description 02/04/2024 Orders Only [facility] [address] [address] India Davalos [address] [place] [address] Chronic kidney disease, stage 2 [...] Visit [facility] [address] [place] [address] Juan Jose iL MD [address] [place] [address] [place] [address] documented as of this encounter [...] Glucose 169(H) 70 - 99 mg/dL [facility] BUN 16 8 - 27 mg/dL [facility] Creatinine 1.00 0.57 - 1.00 mg/dL [facility] eGFR CKD-EPI CR 2020 63 >59 mL/min/1.7 3 [facility] BUN/Creatinine Ratio 16 12 - 28 [facility] Sodium 138 134 - 144 mmol/L [facility] Potassium 4.8 3.5 - 5.2 mmol/L [facility] Chloride 100 96 - 106 mmol/L [facility] Bicarbonate (CO2) 22 20 - 29 mmol/L [facility] Calcium 9.1 8.7 - 10.3 mg/dL [facility] Albumin 4.1 3.9 - 4.9 g/dL [facility] Phosphorus 4.2 3.0 - 4.3 mg/dL [facility] Blood (Blood, Venous) 02/22/2024 8:29 AM EDT 02/22/2024 Barry Reyes MD LAB BLOOD ORDERABLES Final Re sult Performing Organization Address City/[facility]/ZIP Co de Phone Number [facility] [address] [place] [address] * Ferritin (02/22/2024 8:29 AM EDT) Ferritin 47 15 - 150 ng/mL [facility] Blood (Blood, Venous) 02/22/2024 8:29 AM EDT 02/22/2024 Barry Reyes MD LAB BLOOD ORDERABLES Final Re sult Performing Organization Address [facility] de Phone Number [facility] [address] [place] [address] * (ABNORMAL) Iron Panel (Fe, TIBC, TSAT) (02/22/2024 8:29 AM EDT) Iron 39 27 - 139 ug/dL [facility] TIBC 310 250 - 450 ug/dL [facility] UIBC 271 118 - 369 ug/dL [facility] Iron Saturation (TSat) 13(L) 15 - 55 % [facility] Blood (Blood, Venous) 02/22/2024 8:29 AM EDT 02/22/2024 Barry Reyes MD LAB BLOOD ORDERABLES Final Re sult Performing Organization Address [facility]/ZIP Co de Phone Number [facility] [address] [place] [address] * (ABNORMAL) CBC and Differential (02/22/2024 8:29 AM EDT) WBC 5.9 3.4 - 10.8 x10E3/uL [facility] RBC 5.33(H) 3.77 - 5.28 x10E6/uL [facility] Hemoglobin 10.3(L) 11.1 - 15.9 g/dL [facility] Hematocrit 35.1 34.0 - 46.6 % [facility] MCV 66(L) 79 - 97 fL [facility] MCH 19.3(L) 26.6 - 33.0 pg [facility] MCHC 29.3(L) 31.5 - 35.7 g/dL [facility] RDW 19.3(H) 11.7 - 15.4 % [facility] Platelets 174 150 - 450 x10E3/uL [facility] Neutrophils Relative 71 Not Estab. % [facility] Lymphocytes Relative 21 Not Estab. % [facility] Monocytes 5 Not Estab. % [facility] Eosinophils Relative 1 Not Estab. % [facility] Basophils Relative 1 Not Estab. % [facility] Neutrophils Absolute 4.2 1.4 - 7.0 x10E3/uL [facility] Lymphocytes Absolute 1.3 0.7 - 3.1 x10E3/uL [facility] Monocytes Absolute 0.3 0.1 - 0.9 x10E3/uL [facility] Eosinophils Absolute 0.1 0.0 - 0.4 x10E3/uL [facility] Basophils Absolute 0.0 0.0 - 0.2 x10E3/uL [facility] Immature Granulocytes 1 Not Estab. % [facility] Immature Grans (Absolute) 0.0 0.0 - 0.1 x10E3/uL [facility] Blood (Blood, Venous) 02/22/2024 8:29 AM EDT 02/22/2024 us Barry Reyes MD LAB BLOOD ORDERABLES Final Re sult [facility] [address] [place] [address] documented in this encounter Visit Diagnoses Diagnosis Chronic kidney disease, stage 2 (mild) Anemia in chronic kidney disease Iron deficiency anemia, not otherwise specified documented in this encounter Care Teams Magisterial District Judge Relationship Specialty Start Date End Date Sahra Son MD [address] [place] [address] PCP - General Internal Medicine 10/28/22 documented as of this encounter
--- OUTSIDE RECORDS SUMMARY | 2024-06-13 07:49 | XMS_ITS | Encounter Summary ---
Author Organization [facility] Address [address] [place] [address] Phone Care Team Providers Care Clamp Operator Name Role Phone Sahra Son MD Primary Care Provider + Encounter Details Date Type Department Care Team (Late Contact Info) Description 11/21/2021 Documentation Only [facility] [address] [place] [address] India Davalos [address] [place] [address] Social History Tobacco Use Types [...] Visit [facility] [address] [place] [address] Juan Jose Li MD [address] [place] [address] [place] [address] documented as of this encounter Visit Diagnoses Not on filedocumented in this encounter Care Teams Clamp Operator Relationship Specialty Start Date End Date Sahra Son MD [address] [phone] PCP - General Internal Medicine 10/28/22 documented as of this encounter
--- OUTSIDE RECORDS SUMMARY | 2024-06-13 07:49 | XMS_ITS | Encounter Summary ---
Author Organization [facility] Address [address] [place] [address] Phone Care Team Providers Care Assurance Associate Name Role Phone Sahra Son MD Primary Care Provider + Encounter Details Date Type Department Care Team (Late Contact Info) Description 06/09/2023 Documentation Only [facility] [address] [place] [address] India Davalos [address] [place] [address] Social History Tobacco Use Types [...] Visit [facility] [address] [place] [address] Juan Jose Li MD [address] [place] [address] [place] [address] documented as of this encounter Visit Diagnoses Not on filedocumented in this encounter Care Teams Assurance Associate Relationship Specialty Start Date End Date Sahra Son MD [address] [phone] PCP - General Internal Medicine 10/28/22 documented as of this encounter
--- OUTSIDE RECORDS SUMMARY | 2024-06-13 07:49 | XMS_ITS | Encounter Summary ---
Author Organization [facility] Address [address] [place] [address] Phone Care Team Providers Care Interventional Neuroradiologist Name Role Phone Sahra Son MD Primary Care Provider + Encounter Details Date Type Department Care Team (Late Contact Info) Description 01/04/2024 Documentation Only [facility] [address] [place] [address] India Davalos [address] [place] [address] Social History Tobacco Use Types [...] [facility] [address] [place] [address] Juan Jose Li MD [address] [place] [address] [place] [address] documented as of this encounter Visit Diagnoses Not on filedocumented in this encounter Care Teams Interventional Neuroradiologist Relationship Specialty Start Date End Date Sahra Son MD [address] [phone] PCP - General Internal Medicine 10/28/22 documented as of this encounter
--- OUTSIDE RECORDS SUMMARY | 2024-06-13 07:49 | XMS_ITS | Encounter Summary ---
Author Organization [facility] Address [address] [place] [address] Phone Care Team Providers Care Emergency Medicine Nurse Practitioner Name Role Phone Sahra Son MD Primary Care Provider + Encounter Details Date Type Department Care Team ([facility] Contact Info) Description 01/06/2022 Documentation Only [facility] [address] [place] [address] Juan Jose Li MD [address] [place] [address] [place] [address] Social History Tobacco Use Types [...] [facility] [address] [place] [address] Juan Jose Li MD [address] [place] [address] [place] [address] documented as of this encounter Visit Diagnoses Not on filedocumented in this encounter Care Teams Emergency Medicine Nurse Practitioner Relationship Specialty Start Date End Date Sahra Son MD [address] [phone] PCP - General Internal Medicine 10/28/22 documented as of this encounter
--- OUTSIDE RECORDS SUMMARY | 2024-06-13 07:49 | XMS_ITS | Encounter Summary ---
Author Organization [facility] Address [address] [place] [address] Phone Care Team Providers Care Grinder Set Up Operator Gear Tool Name Role Phone Sahra Son MD Primary Care Provider + Encounter Details Date Type Department Care Team (Late Contact Info) Description 11/11/2023 Documentation Only [facility] [address] [place] [address] India Davalos [address] [place] [address] Social History Tobacco Use Types [...] Visit [facility] [address] [place] [address] Juan Jose Li MD [address] [place] [address] [place] [address] documented as of this encounter Visit Diagnoses Not on filedocumented in this encounter Care Teams Grinder Set Up Operator Gear Tool Relationship Specialty Start Date End Date Sahra Son MD [address] [phone] PCP - General Internal Medicine 10/28/22 documented as of this encounter
--- OUTSIDE RECORDS SUMMARY | 2024-06-13 07:49 | XMS_ITS | Encounter Summary ---
Author Organization [facility] Address [address] [place] [address] Phone Care Team Providers Care Varnish Remover Name Role Phone Sahra Son MD Primary Care Provider + Encounter Details Date Type Department Care Team ([facility] Contact Info) Description 11/05/2023 Documentation Only [facility] [address] [place] [address] India Davalos [address] [place] [address] Social History Tobacco Use Types [...] [facility] [address] [place] [address] Juan Jose Li MD [address] [place] [address] [place] [address] documented as of this encounter Visit Diagnoses Not on filedocumented in this encounter Care Teams Varnish Remover Relationship Specialty Start Date End Date Sahra Son MD [address] [phone] PCP - General Internal Medicine 10/28/22 documented as of this encounter
--- OUTSIDE RECORDS SUMMARY | 2024-06-13 07:49 | XMS_ITS | Encounter Summary ---
Author Organization [facility] Address [address] [place] [address] Phone Care Team Providers Care Chief Business Development Officer Name Role Phone Sahra Son MD Primary Care Provider + Encounter Details Date Type Department Care Team (Late Contact Info) Description 08/11/2022 Documentation Only [facility] [address] [place] [address] India Davalos [address] [place] [address] Social History Tobacco Use Types [...] Visit [facility] [address] [place] [address] Juan Jose Li MD [address] [place] [address] [place] [address] documented as of this encounter Visit Diagnoses Not on filedocumented in this encounter Care Teams Chief Business Development Officer Relationship Specialty Start Date End Date Sahra Son MD [address] [phone] PCP - General Internal Medicine 10/28/22 documented as of this encounter
--- OUTSIDE RECORDS SUMMARY | 2024-06-13 07:49 | XMS_ITS | Encounter Summary ---
Author Organization [facility] Address [address] [place] [address] Phone Care Team Providers Care Transit Man Name Role Phone Sahra Son MD Primary Care Provider + Encounter Details Date Type Department Care Team (Late Contact Info) Description 05/17/2023 Orders Only [facility] [address] [place] [address] Arlene Alston PA [address] [place] [address] Chronic kidney disease, stage 2 [...] Visit [facility] [address] [place] [address] Juan Jose Li MD [address] [facility] [place] [address] documented as of this encounter [...] TIBC, TSAT) (06/08/2023 8:36 AM EST) Pathologist [facility] Iron 49 (30-160) MCG/DL [facility] UIBC 246 (110-370) MCG/DL [facility] TIBC 295 (140-530) MCG/DL [facility] Iron Saturation (TSat) 17(L) (20-55) % [facility] Comment: Testing performed or reported by [facility], a Service of [address] [address] Luis A Bailey MD, Structural Analyst CLIA# [id number] Blood (Blood, Venous) 06/08/2023 8:36 AM EST 06/08/2023 8:39 AM EST Arlene CARTER LAB BLOOD ORDERABLES Final Re sult Performing Organization Address [facility] de Phone Number [facility] * Vitamin D 25 hydroxy (06/08/2023 8:36 AM EST) [facility] Vitamin D, 25-Hydroxy 24.8 (20-50) NG/ML [facility] Comment: Testing performed or reported by [facility], a Service of [facility], [address] [place] [address] Luis A Bailey MD, Structural Analyst CLIA# [id number] Blood (Blood, Venous) 06/08/2023 8:36 AM EST 06/08/2023 8:39 AM EST Arlene CARTER LAB BLOOD ORDERABLES Final Re sult Performing Organization Address [facility] Co de Phone Number [facility] * (ABNORMAL) Renal function panel (06/08/2023 8:36 AM EST) [facility] Glucose 166(H) (70-99) MG/DL [facility] BUN 19 (8-23) MG/DL [facility] Creatinine 1.0 (0.5-1.0) MG/DL [facility] Sodium 138 (133-145) MMOL/L [facility] Potassium 4.9 (3.6-5.2) MMOL/L [facility] Chloride 101 (98-107) MMOL/L [facility] Bicarbonate (CO2) 27 (22-29) MMOL/L [facility] Anion Gap 10 (4-17) [facility] Albumin 4.2 (3.4-4.8) GM/DL [facility] Calcium 9.1 (8.6-10.5) MG/DL [facility] Phosphorus, Serum 3.4 (2.5-4.5) MG/DL [facility] Est GFR Non 66 ML/MIN/1.7 3 M2 [facility] Comment: Creatinine based estimated glomerular filtration (eGFR) in adults is calculated using the National Kidney Foundation recommended 2020 CKD-EPI equation. Estimates GFR from serum creatinine, age and sex. Testing performed or reported by [facility], a Service of [address] [address] Luis A Bailey MD, Structural Analyst CLIA# [id number] Blood (Blood, Venous) 06/08/2023 8:36 AM EST 06/08/2023 8:39 AM EST Arlene CARTER LAB BLOOD ORDERABLES Final Re sult Performing Organization Address [facility] de Phone Number [facility] * Magnesium (06/08/2023 8:36 AM EST) Magnesium 2.1 (1.6-2.3) mg/dL [facility] Comment: Testing performed or reported by [facility], a Service of [facility], [address] [place] [address] Luis A Bailey MD, Structural Analyst CLIA# [id number] Blood (Blood, Venous) 06/08/2023 8:36 AM EST 06/08/2023 8:39 AM EST Arlene CARTER LAB BLOOD ORDERABLES Final Re sult Performing Organization Address [facility]/ZIP Co de Phone Number [facility] * (ABNORMAL) Hemoglobin A1c (06/08/2023 8:36 AM EST) Hemoglobin A1C 7.2(H) (4.0-5.6) % [facility] Comment: MONITORING: In known diabetic patients, hemoglobin A1c targets should be discussed with health care provider. DIAGNOSTIC USE: ??The [place] Diabetes Association (ADA) and the World Health [...] Supplement 1 Testing performed or reported by [facility], a Service of [facility], [address] [place] [address] Luis A Bailey MD, Structural Analyst [facility]# [id number] Blood (Blood, Venous) 06/08/2023 8:36 AM EST 06/08/2023 8:38 AM EST Arlene CARTER LAB BLOOD ORDERABLES Final Re sult [facility] * (ABNORMAL) CBC and differential (06/08/2023 8:36 AM EST) White Blood Cells 5.2 (4.0-11.0 ) K/MM3 [facility] RBC 5.08 (4.20-5.4 0) M/MM3 [facility] Hgb 10.1(L) (11.7-15. 5) GM/DL [facility] Hematocrit 32.9(L) (35.7-45. 8) % [facility] MCV 64.8(L) (80.0-100 .0) FL [facility] MCH 19.9(L) (27.0-34. 0) PG [facility] MCHC 30.7(L) (33.0-37. 0) g/dL [facility] Platelets 191 (150-460) K/MM3 [facility] RDW-SD 40.3 (<47.0) FL [facility] MPV NOT MEASURED (9.4-12.4 ) [place] [facility] nRBC Count 0.0 #/100 WBC'S [facility] NRBC Absolute 0.0 K/MM3 [facility] Neutrophils Abs Auto 3.5 (1.3-7.0) K/MM3 [facility] Lymphocytes Relative 1.3 (0.8-3.1) K/MM3 [facility] Monocytes 0.3(L) (0.4-0.9) K/MM3 [facility] Eosinophils Relative 0.1 (0.0-0.4) K/MM3 [facility] Basophil ABS 0.0 (0.0-0.1) K/MM3 [facility] Granulocytes Absolute 0.0 K/MM3 [facility] Neutrophils % Auto 67.3 (44-76) % [facility] Lymphs 24.0 (15-43) % [facility] Monocytes Absolute 5.8 (4.5-10.5 ) % [facility] Eosinophils 1.7 (0-6) % [facility] Basophils Relative 0.8 (0-2) % [facility] Immature Granulocytes 0.4 % [facility] Comment: Testing performed or reported by [facility], a Service of [facility], [address] [place] [address] Luis A Bailey MD, Structural Analyst [facility]# [id number] Blood (Blood, Venous) 06/08/2023 8:36 AM EST 06/08/2023 8:38 AM EST us Arlene CARTER LAB BLOOD ORDERABLES Final Re sult [facility] documented in this encounter Visit Diagnoses Diagnosis Chronic kidney disease, stage 2 (mild) Essential (primary) hypertension Anemia in chronic kidney disease Antiphospholipid syndrome (HCC) Type 2 diabetes mellitus, not otherwise specified (HCC) Bleeding hemorrhoids documented in this encounter Care Teams Transit Man Relationship Specialty Start Date End Date Sahra Son MD [address] [phone] PCP - General Internal Medicine 10/28/22 documented as of this encounter
--- OUTSIDE RECORDS SUMMARY | 2024-06-13 07:49 | XMS_ITS | Encounter Summary ---
Author Organization [facility] Address [address] [place] [address] Phone Care Team Providers Care Shipper Receiver Name Role Phone Sahra Son MD Primary Care Provider + Encounter Details Date Type Department Care Team (Late Contact Info) Description 04/05/2024 Documentation Only [facility] [address] [place] [address] India Davalos [address] [place] [address] Social History Tobacco Use [...] Visit [facility] [address] [place] [address] Juan Jose Li MD [address] [place] [address] [place] [address] documented as of this encounter Visit Diagnoses Not on filedocumented in this encounter Care Teams Shipper Receiver Relationship Specialty Start Date End Date Sahra Son MD [address] [phone] PCP - General Internal Medicine 10/28/22 documented as of this encounter
--- OUTSIDE RECORDS SUMMARY | 2024-06-13 07:49 | XMS_ITS | Encounter Summary ---
Author Organization [facility] Address [address] [place] [address] Phone Care Team Providers Care Digital Associate Name Role Phone Sahra Son MD Primary Care Provider + Encounter Details Date Type Department Care Team (Late Contact Info) Description 09/28/2022 Documentation Only [facility] [address] [place] [address] India Davalos [address] [place] [address] Social History Tobacco Use Types [...] Visit [facility] [address] [place] [address] Juan Jose Li MD [address] [place] [address] [place] [address] documented as of this encounter Visit Diagnoses Not on filedocumented in this encounter Care Teams Digital Associate Relationship Specialty Start Date End Date Sahra Son MD [address] [phone] PCP - General Internal Medicine 10/28/22 documented as of this encounter
--- OUTSIDE RECORDS SUMMARY | 2024-06-13 07:49 | XMS_ITS | Encounter Summary ---
Author Organization [facility], Address [address] [place] [address] Phone Care Team Providers Care Chemical Manager Name Role Phone Sahra Son MD Primary Care Provider + Reason for Visit * Reason Onset Date Comments lab reminder 06/05/2024 Encounter Details Date Type Department Care Team (Late st Contact Info) Description 06/05/2024 Telephone [facility] [address] [place] [address] Stephanie Azul, LAURITA [address] [place] [address] [place] [address] lab reminder Social History Tobacco Use Types [...] PM EST Received message from Lexi at 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 Lexi reports that pt no showed on 06/01/24. Her next appt is 06/09/24. Pt last had labs drawn on 06/05/24. I left message on Jennifer's phone to get labs drawn by 06/07/24. documented in this encounter Plan of Treatment Upcoming Encounters Date Type Department Care Team (Late st Contact Info) Description 07/04/2024 2:30 PM EST Office Visit [facility], [address] [place] [address] Juan Jose Li MD [address] [place] [address] [place] [address] documented as of this encounter Visit Diagnoses Not on filedocumented in this encounter Care Teams Chemical Manager Relationship Specialty Start Date End Date Sahra Son MD [address] [address] PCP - General Internal Medicine 10/28/22 documented as of this encounter
--- OUTSIDE RECORDS SUMMARY | 2024-06-13 07:49 | XMS_ITS | Encounter Summary ---
Author Organization [facility] Address [address] [place] [address] Phone Care Team Providers Care Technology Manager Name Role Phone Sahra Son MD Primary Care Provider + Encounter Details Date Type Department Care Team ([facility] Contact Info) Description 04/14/2022 Documentation Only [facility] [address] [place] [address] India Davalos [address] [place] [address] Social History Tobacco Use Types [...] [facility] [address] [place] [address] Juan Jose Li MD [address] [place] [address] [place] [address] documented as of this encounter Visit Diagnoses Not on filedocumented in this encounter Care Teams Technology Manager Relationship Specialty Start Date End Date Sahra Son MD [address] [phone] PCP - General Internal Medicine 10/28/22 documented as of this encounter
--- OUTSIDE RECORDS SUMMARY | 2024-06-13 07:49 | XMS_ITS | Encounter Summary ---
Author Organization [facility] Address [address] [place] [address] Phone Care Team Providers Care Gelatin Plant Supervisor Name Role Phone Sahra Son MD Primary Care Provider + Encounter Details Date Type Department Care Team (Late Contact Info) Description 11/11/2023 Documentation Only [facility] [address] [place] [address] India Davalos [address] [place] [address] Social History Tobacco Use Types [...] [facility] [address] [place] [address] Juan Jose Li MD [address] [place] [address] [place] [address] documented as of this encounter Visit Diagnoses Not on filedocumented in this encounter Care Teams Gelatin Plant Supervisor Relationship Specialty Start Date End Date Sahra Son MD [address] [phone] PCP - General Internal Medicine 10/28/22 documented as of this encounter
--- OUTSIDE RECORDS SUMMARY | 2024-06-13 07:49 | XMS_ITS | Encounter Summary ---
Author Organization [facility] Address [address] [place] [address] Phone Care Team Providers Care Director Career Services Name Role Phone Sahra Son MD Primary Care Provider + Encounter Details Date Type Department Care Team (Late Contact Info) Description 11/11/2023 Documentation Only [facility] [address] [place] [address] India Davalos [address] [place] [address] Social History Tobacco Use Types [...] Visit [facility] [address] [place] [address] Juan Jose Li MD [address] [place] [address] [place] [address] documented as of this encounter Visit Diagnoses Not on filedocumented in this encounter Care Teams Director Career Services Relationship Specialty Start Date End Date Sahra Son MD [address] [phone] PCP - General Internal Medicine 10/28/22 documented as of this encounter
--- OUTSIDE RECORDS SUMMARY | 2024-06-13 07:49 | XMS_ITS | Encounter Summary ---
Author Organization [facility] Address [address] [place] [address] Phone Care Team Providers Care Maintenance And Custodian Supervisor Name Role Phone Sahra Son MD Primary Care Provider + Encounter Details Date Type Department Care Team (Late Contact Info) Description 08/22/2021 Documentation Only [facility] [address] [place] [address] India Davalos [address] [place] [address] Social History Tobacco Use Types [...] [facility] [address] [place] [address] Juan Jose Li MD [address] [place] [address] [place] [address] documented as of this encounter Visit Diagnoses Not on filedocumented in this encounter Care Teams Maintenance And Custodian Supervisor Relationship Specialty Start Date End Date Sahra Son MD [address] [phone] PCP - General Internal Medicine 10/28/22 documented as of this encounter
[2024-06-13 07:50] VITALS: BP 160/78; BMI 33.8
--- OUTSIDE RECORDS SUMMARY | 2024-06-13 07:50 | XMS_ITS | Encounter Summary ---
Author Organization [facility] Address [address] [place] [address] Phone Care Team Providers Care Metal Template Maker Name Role Phone Sahra Son MD Primary Care Provider + Encounter Details Date Type Department Care Team (Late Contact Info) Description 06/25/2021 Documentation Only [facility] [address] [place] [address] India Davalos [address] [place] [address] Social History Tobacco Use [...] [facility] [address] [place] [address] Juan Jose Li MD [address] [place] [address] [place] [address] documented as of this encounter Visit Diagnoses Not on filedocumented in this encounter Care Teams Metal Template Maker Relationship Specialty Start Date End Date Sahra Son MD [address] [phone] PCP - General Internal Medicine 10/28/22 documented as of this encounter
--- OUTSIDE RECORDS SUMMARY | 2024-06-13 07:50 | XMS_ITS | Encounter Summary ---
Author Organization [facility] Address [address] [place] [address] Phone Care Team Providers Care Laboratory Manager Name Role Phone Sahra Son MD Primary Care Provider + Encounter Details Date Type Department Care Team ([facility] Contact Info) Description 10/26/2022 Documentation Only [facility] [address] [place] [address] India Davalos [address] [place] [address] Social History Tobacco Use Types [...] Visit [facility] [address] [place] [address] Juan Jose Li MD [address] [place] [address] [place] [address] documented as of this encounter Visit Diagnoses Not on filedocumented in this encounter Care Teams Laboratory Manager Relationship Specialty Start Date End Date Sahra Son MD [address] [phone] PCP - General Internal Medicine 10/28/22 documented as of this encounter
--- OUTSIDE RECORDS SUMMARY | 2024-06-13 07:50 | XMS_ITS | Encounter Summary ---
Author Organization [facility] Address [address] [place] [address] Phone Care Team Providers Care Education Courses Sales Representative Name Role Phone Sahra Son MD Primary Care Provider + Encounter Details Date Type Department Care Team (Late Contact Info) Description 07/16/2023 Documentation Only [facility] [address] [place] [address] India Davalos [address] [place] [address] Social History Tobacco Use Types [...] Visit [facility] [address] [place] [address] Juan Jose Li MD [address] [place] [address] [place] [address] documented as of this encounter Visit Diagnoses Not on filedocumented in this encounter Care Teams Education Courses Sales Representative Relationship Specialty Start Date End Date Sahra Son MD [address] [phone] PCP - General Internal Medicine 10/28/22 documented as of this encounter
--- OUTSIDE RECORDS SUMMARY | 2024-06-13 07:50 | XMS_ITS | Encounter Summary ---
Author Organization [facility] Address [address] [place] [address] Phone Care Team Providers Care Dietitian Helper Name Role Phone Sahra Son MD Primary Care Provider + Encounter Details Date Type Department Care Team ([facility] Contact Info) Description 10/07/2021 Documentation Only [facility] [address] [place] [address] India Davalos [address] [place] [address] Social History Tobacco Use Types [...] [facility] [address] [place] [address] Juan Jose Li MD [address] [place] [address] [place] [address] documented as of this encounter Visit Diagnoses Not on filedocumented in this encounter Care Teams Dietitian Helper Relationship Specialty Start Date End Date Sahra Son MD [address] [address] PCP - General Internal Medicine 10/28/22 documented as of this encounter
--- OUTSIDE RECORDS SUMMARY | 2024-06-13 07:50 | XMS_ITS | Clinical Summary ---
Author Organization [facility] Address [address] [place] [address] Care Team Providers Care Grave Cleaner Name Role Phone Geovani Natalie Carmelo ESPARZA Primary Care Provider [phone] Allergies Active Allergy Reactions Criticality Noted Date [...] 1 10/04/2016 Active ergocalciferol (VITAMIN D2) capsule 45585 units TK ONE C PO TWICE A [...] times a day. 0 04/27/2022 Active pancrelipase, Tsy-Innj-Gibg, (Creon) 89179-57478 units CPEP TK ONE C PO TID [...] age to complete this topic Care Teams Grave Cleaner Relationship Specialty Start Date End Date Natalie Olivo APRN [address] [place] [address] PCP - General Manufacturing Laborer 04/30/22
--- OUTSIDE RECORDS SUMMARY | 2024-06-13 07:50 | XMS_ITS | Encounter Summary ---
Author Organization [facility] Address [address] [place] [address] Phone Care Team Providers Care Information Technology Account Manager Name Role Phone Sahra Son MD Primary Care Provider + Encounter Details Date Type Department Care Team (Late Contact Info) Description 08/09/2023 Documentation Only [facility] [address] [place] [address] India Davalos [address] [place] [address] Social History Tobacco Use Types [...] [facility] [address] [place] [address] Juan Jose Li MD [address] [place] [address] [place] [address] documented as of this encounter Visit Diagnoses Not on filedocumented in this encounter Care Teams Information Technology Account Manager Relationship Specialty Start Date End Date Sahra Son MD [address] [phone] PCP - General Internal Medicine 10/28/22 documented as of this encounter
--- OUTSIDE RECORDS SUMMARY | 2024-06-13 07:50 | XMS_ITS | Encounter Summary ---
Author Organization [facility] Address [address] [place] [address] Phone Care Team Providers Care Jewelsmith Name Role Phone Sahra Son MD Primary Care Provider + Encounter Details Date Type Department Care Team ([facility] Contact Info) Description 07/03/2021 Documentation Only [facility] [address] [place] [address] Juan Jose Li MD [address] [place] [address] [place] [address] Social History Tobacco Use Types [...] [facility] [address] [place] [address] Juan Jose Li MD [address] [place] [address] [place] [address] documented as of this encounter Visit Diagnoses Not on filedocumented in this encounter Care Teams Jewelsmith Relationship Specialty Start Date End Date Sahra Son MD [address] [address] PCP - General Internal Medicine 10/28/22 documented as of this encounter
--- OUTSIDE RECORDS SUMMARY | 2024-06-13 07:50 | XMS_ITS | Encounter Summary ---
Author Organization [facility] Address [address] [place] [address] Phone Care Team Providers Care Open Hearth Furnace Operator Name Role Phone Sahra Son MD Primary Care Provider + Encounter Details Date Type Department Care Team (Late Contact Info) Description 05/26/2024 Orders Only [facility] [address] [place] [address] India Davalos [address] [place] [address] Chronic kidney disease, stage 2 [...] Visit [facility] [address] [place] [address] Juan Jose Li MD [address] [place] [address] [place] [address] documented as of this encounter [...] Glucose 168(H) 70 - 99 mg/dL [facility] BUN 17 8 - 27 mg/dL [facility] Creatinine 1.09(H) 0.57 - 1.00 mg/dL [facility] eGFR CKD-EPI CR 2020 57(L) >59 mL/min/1.7 3 [facility] BUN/Creatinine Ratio 16 12 - 28 [facility] Sodium 137 134 - 144 mmol/L [facility] Potassium 4.8 3.5 - 5.2 mmol/L [facility] Chloride 99 96 - 106 mmol/L [facility] Bicarbonate (CO2) 23 20 - 29 mmol/L [facility] Calcium 9.0 8.7 - 10.3 mg/dL [facility] Albumin 4.2 3.9 - 4.9 g/dL [facility] Phosphorus 4.4(H) 3.0 - 4.3 mg/dL [facility] Blood (Blood, Venous) 06/07/2024 11:53 AM EST 06/07/2024 Barry Reyes MD LAB BLOOD ORDERABLES Final Re sult Performing Organization Address City/[facility]/ZIP Co de Phone Number [facility] [address] [place] [address] * Ferritin (06/07/2024 11:53 AM EST) Ferritin 102 15 - 150 ng/mL [facility] Blood (Blood, Venous) 06/07/2024 11:53 AM EST 06/07/2024 Barry Reyes MD LAB BLOOD ORDERABLES Final Re sult Performing Organization Address [facility] de Phone Number [facility] [address] [place] [address] * Iron Panel (Fe, TIBC, TSAT) (06/07/2024 11:53 AM EST) TIBC 262 250 - 450 ug/dL [facility] UIBC 205 118 - 369 ug/dL [facility] Iron 57 27 - 139 ug/dL [facility] Iron Saturation (TSat) 22 15 - 55 % [facility] Blood (Blood, Venous) 06/07/2024 11:53 AM EST 06/07/2024 Barry Reyes MD LAB BLOOD ORDERABLES Final Re sult Performing Organization Address City/[facility]/ZIP Co de Phone Number [facility] [address] [place] [address] * (ABNORMAL) CBC and Differential (06/07/2024 11:53 AM EST) [facility] WBC 5.5 3.4 - 10.8 x10E3/uL [facility] RBC 5.76(H) 3.77 - 5.28 x10E6/uL [facility] Hemoglobin 11.1 11.1 - 15.9 g/dL [facility] Hematocrit 38.4 34.0 - 46.6 % [facility] MCV 67(L) 79 - 97 fL [facility] MCH 19.3(L) 26.6 - 33.0 pg [facility] MCHC 28.9(L) 31.5 - 35.7 g/dL [facility] RDW 18.8(H) 11.7 - 15.4 % [facility] Platelets 162 150 - 450 x10E3/uL [facility] Neutrophils Relative 59 Not Estab. % [facility] Lymphocytes Relative 31 Not Estab. % [facility] Monocytes 6 Not Estab. % [facility] Eosinophils Relative 2 Not Estab. % [facility] Basophils Relative 1 Not Estab. % [facility] Neutrophils Absolute 3.3 1.4 - 7.0 x10E3/uL [facility] Lymphocytes Absolute 1.7 0.7 - 3.1 x10E3/uL [facility] Monocytes Absolute 0.3 0.1 - 0.9 x10E3/uL [facility] Eosinophils Absolute 0.1 0.0 - 0.4 x10E3/uL [facility] Basophils Absolute 0.0 0.0 - 0.2 x10E3/uL [facility] Immature Granulocytes 1 Not Estab. % [facility] Immature Grans (Absolute) 0.0 0.0 - 0.1 x10E3/uL [facility] Blood (Blood, Venous) 06/07/2024 11:53 AM EST 06/07/2024 us Barry Reyes MD LAB BLOOD ORDERABLES Final Re sult [facility] [address] [place] [address] documented in this encounter Visit Diagnoses Diagnosis Chronic kidney disease, stage 2 (mild) Anemia in chronic kidney disease Iron deficiency anemia, not otherwise specified documented in this encounter Care Teams Open Hearth Furnace Operator Relationship Specialty [place] [address] [place] [address] PCP - General Internal Medicine 10/28/22 documented as of this encounter
--- OUTSIDE RECORDS SUMMARY | 2024-06-13 07:50 | XMS_ITS | Encounter Summary ---
Author Organization [facility] Address [address] [place] [address] Phone Care Team Providers Care Gun Perforator Loader Name Role Phone Sahra Son MD Primary Care Provider + Encounter Details Date Type Department Care Team ([facility] Contact Info) Description 01/29/2023 Documentation Only [facility] [address] [place] [address] India Davalos [address] [place] [address] Social History Tobacco Use Types [...] Visit [facility] [address] [place] [address] Juan Jose Li MD [address] [place] [address] [place] [address] documented as of this encounter Visit Diagnoses Not on filedocumented in this encounter Care Teams Gun Perforator Loader Relationship Specialty Start Date End Date Sahra Son MD [address] [phone] PCP - General Internal Medicine 10/28/22 documented as of this encounter
--- OUTSIDE RECORDS SUMMARY | 2024-06-13 07:50 | XMS_ITS | Encounter Summary ---
Author Organization [facility] Address [address] [place] [address] Phone Care Team Providers Care Vehicle Dismantler Name Role Phone Sahra Son MD Primary Care Provider + Encounter Details Date Type Department Care Team (Late Contact Info) Description 07/16/2023 Documentation Only [facility] [address] [place] [address] India Davalos [address] [place] [address] Social History Tobacco Use Types [...] Visit [facility] [address] [place] [address] Juan Jose Li MD [address] [place] [address] [place] [address] documented as of this encounter Visit Diagnoses Not on filedocumented in this encounter Care Teams Vehicle Dismantler Relationship Specialty Start Date End Date Sahra Son MD [address] [phone] PCP - General Internal Medicine 10/28/22 documented as of this encounter
--- OUTSIDE RECORDS SUMMARY | 2024-06-13 07:50 | XMS_ITS | Clinical Summary ---
Author Organization [facility] [place], Address [address] [place] [address] [place] [address] Phone Care Team Providers Care Principal Associate Name Role Phone Sahra Son MD Primary Care Provider + Allergies Active Allergy Reactions Criticality Noted Date Comments Codeine 12/26/2012 Ferumoxytol Shortness of breath,Itching,Other (see comments) High 02/27/2022 Bones hurt Iodinated Contrast Media 07/06/2022 Penicillins 12/26/2012 Other Shellfish Allergy 12/26/2012 Tramadol 07/06/2022 Trazodone 03/08/2018 Iron Sucrose 02/29/2024 Coughing fit infusion stopped at [facility] Medications Cymbalta [address] capsule TK 2 CS PO QAM 12/28/19 20 Active LORazepam (ATIVAN) 1 MG tablet TK 1 T PO BID 12/24/19 20 Active meclizine (ANTIVERT) 25 MG tablet TK 1 T PO TID PRN 12/24/19 20 Active montelukast (SINGULAIR) 10 MG tablet TK 1 T PO QD IN THE DARCY 11/19/19 20 Active Creon 27154-59052 units capsule TK ONE C PO TID [...] [facility] [address] [place] [address] India Davalos Anemia in chronic kidney disease; Other iron deficiency anemia; Chronic kidney disease, stage 2 (mild) 06/05/2024 Telephone [facility] [address] [place] [address] Stephanie Azul, biology laboratory assistant reminder 05/26/2024 Orders Only [facility] [address] [place] [address] India Davalos Chronic kidney disease, stage 2 (mild); Anemia in chronic kidney disease; Iron deficiency anemia, not otherwise specified 05/05/2024 Telephone [facility] [address] [place] [address] India Davalos 05/05/2024 Orders Only [facility] [address] [place] [address] Kaylyn Vargas Anemia in chronic kidney disease; Iron deficiency anemia, not otherwise specified; Chronic kidney disease, stage 2 (mild) 05/01/2024 Telephone [facility] [address] [place] [address] Olesya Han 05/01/2024 Telephone [facility] [address] [place] [address] Olesya Han 04/28/2024 Orders Only [facility] [address] [place] [address] India Davalos Chronic kidney disease, stage 2 (mild); Anemia in chronic kidney disease; Iron deficiency anemia, not otherwise specified 04/07/2024 Orders Only [facility] [address] [place] [address] Kaylyn Vargas Anemia in chronic kidney disease; Iron deficiency anemia, not otherwise specified; Chronic kidney disease, stage 2 (mild) 04/05/2024 Documentation Only [facility] [address] [place] [address] AnoopIndia henry 04/05/2024 Documentation Only [facility] [address] [place] [address] India Davalos 04/03/2024 Documentation Only [facility] [address] [place] [address] Kaylyn Vargas 03/31/2024 Orders Only [facility] [address] [place] [address] India Davalos Chronic kidney disease, stage 2 (mild); Anemia in chronic kidney disease; Iron deficiency anemia, not otherwise specified 03/23/2024 Documentation Only [facility] [address] [place] [address] India Davalos 03/22/2024 3:00 PM EST Office Visit [facility] [address] [place] [address] Arlene Alston PA Chronic kidney disease, stage 2 (mild) (Primary Dx); Essential (primary) hypertension; Type 2 diabetes mellitus, not otherwise specified (HCC) 03/22/2024 Documentation Only [facility] [address] [place] [address] India Davalos from Last 3 Months Immunizations [...] Visit [facility] [place], [address] [place] [address] Juan Jose Li MD [address] [place] [address] Health Maintenance Due Date Last Done Comments [...] TIBC 262 250 - 450 ug/dL [facility] UIBC 205 118 - 369 ug/dL [facility] Iron 57 27 - 139 ug/dL [facility] Iron Saturation (TSat) 22 15 - 55 % [facility] Blood (Blood, Venous) 06/07/2024 11:53 AM EST 06/07/2024 us Barry Reyes MD LAB BLOOD ORDERABLES Final Re sult [facility] [address] [place] [address] * (ABNORMAL) CBC and Differential (06/07/2024 11:53 AM EST) Only the most recent of3 resultswithin the time period is included. WBC 5.5 3.4 - 10.8 x10E3/uL [facility] RBC 5.76(H) 3.77 - 5.28 x10E6/uL [facility] Hemoglobin 11.1 11.1 - 15.9 g/dL [facility] Hematocrit 38.4 34.0 - 46.6 % [facility] MCV 67(L) 79 - 97 fL [facility] MCH 19.3(L) 26.6 - 33.0 pg [facility] MCHC 28.9(L) 31.5 - 35.7 g/dL [facility] RDW 18.8(H) 11.7 - 15.4 % [facility] Platelets 162 150 - 450 x10E3/uL [facility] Neutrophils Relative 59 Not Estab. % [facility] Lymphocytes Relative 31 Not Estab. % [facility] Monocytes 6 Not Estab. % [facility] Eosinophils Relative 2 Not Estab. % [facility] Basophils Relative 1 Not Estab. % [facility] Neutrophils Absolute 3.3 1.4 - 7.0 x10E3/uL [facility] Lymphocytes Absolute 1.7 0.7 - 3.1 x10E3/uL [facility] Monocytes Absolute 0.3 0.1 - 0.9 x10E3/uL [facility] Eosinophils Absolute 0.1 0.0 - 0.4 x10E3/uL [facility] Basophils Absolute 0.0 0.0 - 0.2 x10E3/uL [facility] Immature Granulocytes 1 Not Estab. % [facility] Immature Grans (Absolute) 0.0 0.0 - 0.1 x10E3/uL [facility] Blood (Blood, Venous) 06/07/2024 11:53 AM EST 06/07/2024 Barry Reyes MD LAB BLOOD ORDERABLES Final Re sult [facility] [address] [place] [phone] * Ferritin (06/07/2024 11:53 AM EST) Only the most recent of3 resultswithin the time period is included. Ferritin 102 15 - 150 ng/mL [facility] Blood (Blood, Venous) 06/07/2024 11:53 AM EST 06/07/2024 Barry Reyes MD LAB BLOOD ORDERABLES Final Re sult [facility] [address] [place] [address] * (ABNORMAL) Renal Function Panel (06/07/2024 11:53 AM EST) Only the most recent of3 resultswithin the time period is included. Glucose 168(H) 70 - 99 mg/dL [facility] BUN 17 8 - 27 mg/dL [facility] Creatinine 1.09(H) 0.57 - 1.00 mg/dL [facility] eGFR CKD-EPI CR 2020 57(L) >59 mL/min/1.7 3 [facility] BUN/Creatinine Ratio 16 12 - 28 [facility] Sodium 137 134 - 144 mmol/L [facility] Potassium 4.8 3.5 - 5.2 mmol/L [facility] Chloride 99 96 - 106 mmol/L [facility] Bicarbonate (CO2) 23 20 - 29 mmol/L [facility] Calcium 9.0 8.7 - 10.3 mg/dL [facility] Albumin 4.2 3.9 - 4.9 g/dL [facility] Phosphorus 4.4(H) 3.0 - 4.3 mg/dL [facility] Blood (Blood, Venous) 06/07/2024 11:53 AM EST 06/07/2024 us Barry Reyes MD LAB BLOOD ORDERABLES Final Re sult [facility] [address] [place] [address] * (ABNORMAL) Hemoglobin A1c (06/08/2023 8:36 AM EST) Hemoglobin A1C 7.2(H) (4.0-5.6) % [facility] Comment: MONITORING: In known diabetic patients, hemoglobin A1c targets should be discussed with health care provider. DIAGNOSTIC USE: ??The [place] Diabetes Association (ADA) and the World Health [...] Supplement 1 Testing performed or reported by [facility], a Service of [facility], [address] [place] [address] Luis A Bailey MD, Basketball Player [facility]# [id number] Blood (Blood, Venous) 06/08/2023 8:36 AM EST 06/08/2023 8:38 AM EST Arlene CARTER LAB BLOOD ORDERABLES Final Re sult [facility] from Last 3 Months or Most Recently Relevant to Health Maintenance Insurance [employer] SNP ([id number]) [place]ANCINI [id number] Care Teams Principal Associate Relationship Specialty Start Date End Date Sahra Son MD [address] [place] [address] PCP - General Internal Medicine 10/28/22
--- OUTSIDE RECORDS SUMMARY | 2024-06-13 07:50 | XMS_ITS | Encounter Summary ---
Author Organization [facility] Address [address] [place] [address] Phone Care Team Providers Care Horticultural Manager Name Role Phone Sahra Son MD Primary Care Provider + Encounter Details Date Type Department Care Team (Late Contact Info) Description 08/05/2023 Documentation Only [facility] [address] [place] [address] India Davalos [address] [place] [address] Social History Tobacco Use Types [...] Visit [facility] [address] [place] [address] Juan Jose Li MD [address] [place] [address] [place] [address] documented as of this encounter Visit Diagnoses Not on filedocumented in this encounter Care Teams Horticultural Manager Relationship Specialty Start Date End Date Sahra Son MD [address] [phone] PCP - General Internal Medicine 10/28/22 documented as of this encounter
--- OUTSIDE RECORDS SUMMARY | 2024-06-13 07:50 | XMS_ITS | Encounter Summary ---
Author Organization [facility] Address [address] [place] [address] Phone Care Team Providers Care Head Inspector Name Role Phone Sahra Son MD Primary Care Provider + Encounter Details Date Type Department Care Team (Late Contact Info) Description 12/24/2022 Documentation Only [facility] [address] [place] [address] Carol Whelan [address] [place] [address] Social History Tobacco Use Types [...] [facility] [address] [place] [address] Juan Jose Li MD [address] [place] [address] [place] [address] documented as of this encounter Visit Diagnoses Not on filedocumented in this encounter Care Teams Head Inspector Relationship Specialty Start Date End Date Sahra Son MD [address] [address] PCP - General Internal Medicine 10/28/22 documented as of this encounter
--- OUTSIDE RECORDS SUMMARY | 2024-06-13 07:50 | XMS_ITS | Encounter Summary ---
Author Organization [facility] Address [address] [place] [address] Phone Care Team Providers Care Shift Supervisor Name Role Phone Sahra Son MD Primary Care Provider + Encounter Details Date Type Department Care Team ([facility] Contact Info) Description 10/30/2022 Documentation Only [facility] [address] [place] [address] India Davalos [address] [place] [address] Social History Tobacco Use Types [...] [facility] [address] [place] [address] Juan Jose Li MD [address] [place] [address] [place] [address] documented as of this encounter Visit Diagnoses Not on filedocumented in this encounter Care Teams Shift Supervisor Relationship Specialty Start Date End Date Sahra Son MD [address] [phone] PCP - General Internal Medicine 10/28/22 documented as of this encounter
--- OUTSIDE RECORDS SUMMARY | 2024-06-13 07:50 | XMS_ITS | Encounter Summary ---
Author Organization [facility] Address [address] [place] [address] Phone Care Team Providers Care City Detective Name Role Phone Sahra Son MD Primary Care Provider + Encounter Details Date Type Department Care Team ([facility] Contact Info) Description 02/01/2023 Documentation Only [facility] [address] [place] [address] India Davalos [address] [place] [address] Social History Tobacco Use Types [...] [facility] [address] [place] [address] Juan Jose Li MD [address] [place] [address] [place] [address] documented as of this encounter Visit Diagnoses Not on filedocumented in this encounter Care Teams City Detective Relationship Specialty Start Date End Date Sahra Son MD [address] [phone] PCP - General Internal Medicine 10/28/22 documented as of this encounter
--- OUTSIDE RECORDS SUMMARY | 2024-06-13 07:50 | XMS_ITS | Encounter Summary ---
Author Organization [facility] Address [address] [place] [address] Phone Care Team Providers Care Government Service Executive Name Role Phone Sahra Son MD Primary Care Provider + Encounter Details Date Type Department Care Team ([facility] Contact Info) Description 01/29/2023 Documentation Only [facility] [address] [place] [address] India Davalos [address] [place] [address] Social History Tobacco Use Types [...] [facility] [address] [place] [address] Juan Jose Li MD [address] [place] [address] [place] [address] documented as of this encounter Visit Diagnoses Not on filedocumented in this encounter Care Teams Government Service Executive Relationship Specialty Start Date End Date Sahra Son MD [address] [phone] PCP - General Internal Medicine 10/28/22 documented as of this encounter
--- OUTSIDE RECORDS SUMMARY | 2024-06-13 07:50 | XMS_ITS | Encounter Summary ---
Author Organization [facility] Address [address] [place] [address] Phone Care Team Providers Care Youth Support Worker Name Role Phone Sahra Son MD Primary Care Provider + Encounter Details Date Type Department Care Team (Late Contact Info) Description 08/27/2021 Documentation Only [facility] [address] [place] [address] India Davalos [address] [place] [address] Social History Tobacco Use Types [...] Visit [facility] [address] [place] [address] Juan Jose Li MD [address] [place] [address] [place] [address] documented as of this encounter Visit Diagnoses Not on filedocumented in this encounter Care Teams Youth Support Worker Relationship Specialty Start Date End Date Sahra Son MD [address] [phone] PCP - General Internal Medicine 10/28/22 documented as of this encounter
== END 2024-06-13 08:28 | disposition home or self-care (01) ==
PROVIDERS: PCP Internal Medicine; Visit Provider Psychiatry & Neurology Neurology
DX: F44.5 Conversion disorder with seizures or convulsions (principal); Z98.890 Other specified postprocedural states; Z95.828 Presence of other vascular implants and grafts
CPT/HCPCS: 99204; G2211

== ENCOUNTER → 2024-06-13 07:46 | Outpatient (BNVA) | payer OTHER, SELFPAY | PROVIDERS: PCP Internal Medicine; Visit Provider Psychiatry & Neurology Neurology | DX: R25.1 Tremor, unspecified (principal); F44.5 Conversion disorder with seizures or convulsions; Z95.828 Presence of other vascular implants and grafts; Z98.890 Other specified postprocedural states | CPT/HCPCS: 99202 ==

== ENCOUNTER 2024-06-15 10:03 | Outpatient (AMB) | payer OTHER, SELFPAY ==
--- NOTE | 2024-06-15 10:15 | MHC.OFFVISCO ---
Intake Intake Visit Reasons: Anticoagulation Allergies codeine [Codeine] Allergy (Severe, Verified 06/15/24 10:05) DIFFICULTY BREATHING Penicillins Allergy (Severe, Verified 06/15/24 10:05) RASH penicillin V Allergy (Intermediate, Verified 06/15/24 10:05) RASH tramadol [Ultram] Allergy (Unknown, Verified 06/15/24 10:05) hallucinations Shellfish Allergy (Severe, Uncoded 06/15/24 10:05) THROAT SWELLING Contrast Allergy PreMed Pack Allergy (Unknown, Uncoded 06/15/24 10:05) TREAT WITH BENADRYL ferrlecit Adverse Reaction (Intermediate, Uncoded 06/15/24 10:05) Rash Medication List - Last Reconciled 06/15/24 by Barbara Lr RN atorvastatin 80 mg PO DAILY blood sugar diagnostic As directed clonidine HCl 0.1 mg PO BID dapagliflozin propanediol (Farxiga) 10 mg PO DAILY diphenhydramine HCl (Banophen) mg PO divalproex ER (Depakote ER) 250 mg PO BID duloxetine 120 mg PO QAM epoetin marj (Procrit) 2,000 units subcut 3XW fluticasone propion-salmeterol 100-50 mcg/dose ea inhalation gabapentin 100 mg PO TID hydrocortisone 2.5% appl topical insulin glargine (Lantus Solostar U-100 Insulin) 10 units subcut QPM ipratropium-albuterol 0.5 mg-3 mg(2.5 mg base)/3 mL mL inhalation ipratropium-albuterol 20-100 mcg/actuation 1 puff PO QID lancets As directed lancets As directed latanoprost 0.005% drps ophthalmic (eye) linagliptin (Tradjenta) 5 mg PO DAILY rvvjrw-gkxsjwov-bduwghn 24,000-76,000 -120,000 unit 1 cap PO TID jvhain-oczadenk-uyuvksu 24,000-76,000 -120,000 unit (Creon) 1 cap PO TID loratadine 10 mg PO DAILY PRN lorazepam 1 mg PO BID meclizine mg PO montelukast 10 mg PO BEDTIME nifedipine ER 30 mg PO DAILY ondansetron 4 mg PO Q8H PRN polyethylene glycol 3350 grams PO [procrit pt states she receives it weekly ] quetiapine 200 mg PO BEDTIME rabeprazole 20 mg PO DAILY ropinirole 0.25 mg PO BEDTIME sodium chloride 0.65% (Deep Sea Nasal) sprays intranasal Q2H PRN triamcinolone acetonide 0.1% appl topical warfarin 2.5 mg See Protocol PO DAILY Nursing Note INR: 2.5- in therapeutic range of 2-3 Medications and supplements reviewed- pt has not started depakote er 250mg bid, but will start today this med can raise inr per micromedex, rapid onset No changes in health, diet, medications, or supplements, Denies any signs and symptoms of bleeding or bruising or clotting. Bleeding, bruising, clotting discussed Nutritional guidance given Dose: reduce weekly dosing sl, 3.75mg x 6, 2.5mg x 1 F/U INR: 07/18/24Patient verbalizes understanding of instructions given pt with upcoming eeg, and appt neurology Anti-Coag Initial Assessment Social Hx Patient Tobacco Use Status: Current everyday Tobacco user alcohol intake: never Coding Level of Care Code Est Patient Level 1 Diagnoses Current use of anticoagulant therapy Z79.01 Results AMB INR Fingerstick AMB INR Fingerstick 2.5 Last Edit by Barbara Lr RN on 06/15/24 10:18 interface delay Assessment & Plan Assessment & Plan (1) Current use of anticoagulant therapy: Code(s): Z79.01 - rodent exterminator (current) use of anticoagulants Category: Medical
[2024-06-15 10:36] LABS: Prothrombin Time Whole Bld POC 29.6 sec (11.1-13.5); ~PT, ~INR - Anti Coag Clinic 2.5 (0.9-1.1)
--- OUTSIDE RECORDS SUMMARY | 2024-06-15 13:12 | XMS_ITS | Encounter Summary ---
Author Organization [facility] Address [address] [place] [address] Phone Care Team Providers Care Parliamentary Librarian Name Role Phone Sahra Son MD Primary Care Provider + Encounter Details Date Type Department Care Team (Late Contact Info) Description 04/08/2022 Documentation Only [facility] [address] [place] [address] India Davalos [address] [place] [address] Social History Tobacco Use Types [...] [facility] [address] [place] [address] Juan Jose Li MD [address] [place] [address] [place] [address] documented as of this encounter Visit Diagnoses Not on filedocumented in this encounter Care Teams Parliamentary Librarian Relationship Specialty Start Date End Date Sahra Son MD [address] [phone] PCP - General Internal Medicine 10/28/22 documented as of this encounter
--- OUTSIDE RECORDS SUMMARY | 2024-06-15 13:12 | XMS_ITS | Encounter Summary ---
Author Organization [facility] Address [address] [place] [address] Phone Care Team Providers Care Service Advisor Name Role Phone Sahra Son MD Primary Care Provider + Encounter Details Date Type Department Care Team (Late Contact Info) Description 03/22/2024 Documentation Only [facility] [address] [place] [address] India Davalos [address] [place] [address] Social History Tobacco Use Types [...] [facility] [address] [place] [address] Juan oJse Li MD [address] [place] [address] [place] [address] documented as of this encounter Visit Diagnoses Not on filedocumented in this encounter Care Teams Service Advisor Relationship Specialty Start Date End Date Sahra Son MD [address] [phone] PCP - General Internal Medicine 10/28/22 documented as of this encounter
--- OUTSIDE RECORDS SUMMARY | 2024-06-15 13:12 | XMS_ITS | Encounter Summary ---
Author Organization [facility] Address [address] [place] [address] Phone Care Team Providers Care Outside Sales Manager Name Role Phone Sahra Son MD Primary Care Provider + Encounter Details Date Type Department Care Team (Late Contact Info) Description 06/16/2022 Documentation Only [facility] [address] [place] [address] India Davalos [address] [place] [address] Social History Tobacco Use Types [...] Visit [facility] [address] [place] [address] Juan Jose Li MD [address] [place] [address] [place] [address] documented as of this encounter Visit Diagnoses Not on filedocumented in this encounter Care Teams Outside Sales Manager Relationship Specialty Start Date End Date Sahra Son MD [address] [phone] PCP - General Internal Medicine 10/28/22 documented as of this encounter
--- OUTSIDE RECORDS SUMMARY | 2024-06-15 13:12 | XMS_ITS | Encounter Summary ---
Author Organization [facility] Address [address] [place] [address] Phone Care Team Providers Care Customer Experience Specialist Name Role Phone Sahra Son MD Primary Care Provider + Encounter Details Date Type Department Care Team (Late Contact Info) Description 09/28/2022 Documentation Only [facility] [address] [place] [address] India Davalos [address] [place] [address] Social History Tobacco Use Types [...] [facility] [address] [place] [address] Juan Jose Li MD [address] [place] [address] [place] [address] documented as of this encounter Visit Diagnoses Not on filedocumented in this encounter Care Teams Customer Experience Specialist Relationship Specialty Start Date End Date Sahra Son MD [address] [phone] PCP - General Internal Medicine 10/28/22 documented as of this encounter
--- OUTSIDE RECORDS SUMMARY | 2024-06-15 13:12 | XMS_ITS | Encounter Summary ---
Author Organization [facility] Address [address] [place] [address] Phone Care Team Providers Care Clinical Administrator Name Role Phone Sahra Son MD Primary Care Provider + Encounter Details Date Type Department Care Team (Late Contact Info) Description 03/23/2024 Documentation Only [facility] [address] [place] [address] India Davalos [address] [place] [address] Social History Tobacco Use Types [...] [facility] [address] [place] [address] Juan Jose Li MD [address] [place] [address] [place] [address] documented as of this encounter Visit Diagnoses Not on filedocumented in this encounter Care Teams Clinical Administrator Relationship Specialty Start Date End Date Sahra Son MD [address] [phone] PCP - General Internal Medicine 10/28/22 documented as of this encounter
--- OUTSIDE RECORDS SUMMARY | 2024-06-15 13:12 | XMS_ITS | Encounter Summary ---
Author Organization [facility] Address [address] [place] [address] Phone Care Team Providers Care Putty Worker Name Role Phone Sahra Son MD Primary Care Provider + Encounter Details Date Type Department Care Team ([facility] Contact Info) Description 12/23/2021 Documentation Only [facility] [address] [place] [address] Juan Jose Li MD [address] [place] [address] [place] [address] Social History Tobacco Use Types [...] [facility] [address] [place] [address] Juan Jose Li MD [address] [place] [address] [place] [address] documented as of this encounter Visit Diagnoses Not on filedocumented in this encounter Care Teams Putty Worker Relationship Specialty Start Date End Date Sahra Son MD [address] [phone] PCP - General Internal Medicine 10/28/22 documented as of this encounter
--- OUTSIDE RECORDS SUMMARY | 2024-06-15 13:12 | XMS_ITS | Encounter Summary ---
Author Organization [facility] Address [address] [place] [address] Phone Care Team Providers Care Community Service Officer Name Role Phone Sahra Son MD Primary Care Provider + Encounter Details Date Type Department Care Team (Late Contact Info) Description 11/30/2023 Documentation Only [facility] [address] [place] [address] India Davalos [address] [place] [address] Social History Tobacco Use Types [...] [facility] [address] [place] [address] Juan Jose Li MD [address] [place] [address] [place] [address] documented as of this encounter Visit Diagnoses Not on filedocumented in this encounter Care Teams Community Service Officer Relationship Specialty Start Date End Date Sahra Son MD [address] [phone] PCP - General Internal Medicine 10/28/22 documented as of this encounter
--- OUTSIDE RECORDS SUMMARY | 2024-06-15 13:12 | XMS_ITS | Encounter Summary ---
Author Organization [facility] Address [address] [place] [address] Phone Care Team Providers Care Cuff Matcher Name Role Phone Sahra Son MD Primary Care Provider + Encounter Details Date Type Department Care Team (Late Contact Info) Description 09/18/2022 Documentation Only [facility] [address] [place] [address] India Davalos [address] [place] [address] Social History Tobacco Use Types [...] [facility] [address] [place] [address] Juan Jose Li MD [address] [place] [address] [place] [address] documented as of this encounter Visit Diagnoses Not on filedocumented in this encounter Care Teams Cuff Matcher Relationship Specialty Start Date End Date Sahra Son MD [address] [phone] PCP - General Internal Medicine 10/28/22 documented as of this encounter
--- OUTSIDE RECORDS SUMMARY | 2024-06-15 13:12 | XMS_ITS | Encounter Summary ---
Author Organization [facility] Address [address] [place] [address] Phone Care Team Providers Care Coding Quality Analyst Name Role Phone Sahra Son MD Primary Care Provider + Encounter Details Date Type Department Care Team (Late Contact Info) Description 02/04/2024 Orders Only [facility] [address] [address] India Davalos [address] [place] [address] Chronic kidney disease, stage 2 [...] Visit [facility] [address] [place] [address] Juan Jose Li MD [address] [place] [address] [place] [address] documented as of this encounter [...] Glucose 169(H) 70 - 99 mg/dL [facility] BUN 16 8 - 27 mg/dL [facility] Creatinine 1.00 0.57 - 1.00 mg/dL [facility] eGFR CKD-EPI CR 2020 63 >59 mL/min/1.7 3 [facility] BUN/Creatinine Ratio 16 12 - 28 [facility] Sodium 138 134 - 144 mmol/L [facility] Potassium 4.8 3.5 - 5.2 mmol/L [facility] Chloride 100 96 - 106 mmol/L [facility] Bicarbonate (CO2) 22 20 - 29 mmol/L [facility] Calcium 9.1 8.7 - 10.3 mg/dL [facility] Albumin 4.1 3.9 - 4.9 g/dL [facility] Phosphorus 4.2 3.0 - 4.3 mg/dL [facility] Blood (Blood, Venous) 02/22/2024 8:29 AM EDT 02/22/2024 Barry Reyes MD LAB BLOOD ORDERABLES Final Re sult Performing Organization Address City/[facility]/ZIP Co de Phone Number [facility] [address] [place] [address] * Ferritin (02/22/2024 8:29 AM EDT) Ferritin 47 15 - 150 ng/mL [facility] Blood (Blood, Venous) 02/22/2024 8:29 AM EDT 02/22/2024 Barry Reyes MD LAB BLOOD ORDERABLES Final Re sult Performing Organization Address [facility] de Phone Number [facility] [address] [place] [address] * (ABNORMAL) Iron Panel (Fe, TIBC, TSAT) (02/22/2024 8:29 AM EDT) Iron 39 27 - 139 ug/dL [facility] TIBC 310 250 - 450 ug/dL [facility] UIBC 271 118 - 369 ug/dL [facility] Iron Saturation (TSat) 13(L) 15 - 55 % [facility] Blood (Blood, Venous) 02/22/2024 8:29 AM EDT 02/22/2024 Barry Reyes MD LAB BLOOD ORDERABLES Final Re sult Performing Organization Address [facility]/ZIP Co de Phone Number [facility] [address] [place] [address] * (ABNORMAL) CBC and Differential (02/22/2024 8:29 AM EDT) WBC 5.9 3.4 - 10.8 x10E3/uL [facility] RBC 5.33(H) 3.77 - 5.28 x10E6/uL [facility] Hemoglobin 10.3(L) 11.1 - 15.9 g/dL [facility] Hematocrit 35.1 34.0 - 46.6 % [facility] MCV 66(L) 79 - 97 fL [facility] MCH 19.3(L) 26.6 - 33.0 pg [facility] MCHC 29.3(L) 31.5 - 35.7 g/dL [facility] RDW 19.3(H) 11.7 - 15.4 % [facility] Platelets 174 150 - 450 x10E3/uL [facility] Neutrophils Relative 71 Not Estab. % [facility] Lymphocytes Relative 21 Not Estab. % [facility] Monocytes 5 Not Estab. % [facility] Eosinophils Relative 1 Not Estab. % [facility] Basophils Relative 1 Not Estab. % [facility] Neutrophils Absolute 4.2 1.4 - 7.0 x10E3/uL [facility] Lymphocytes Absolute 1.3 0.7 - 3.1 x10E3/uL [facility] Monocytes Absolute 0.3 0.1 - 0.9 x10E3/uL [facility] Eosinophils Absolute 0.1 0.0 - 0.4 x10E3/uL [facility] Basophils Absolute 0.0 0.0 - 0.2 x10E3/uL [facility] Immature Granulocytes 1 Not Estab. % [facility] Immature Grans (Absolute) 0.0 0.0 - 0.1 x10E3/uL [facility] Blood (Blood, Venous) 02/22/2024 8:29 AM EDT 02/22/2024 us Barry Reyes MD LAB BLOOD ORDERABLES Final Re sult [facility] [address] [place] [address] documented in this encounter Visit Diagnoses Diagnosis Chronic kidney disease, stage 2 (mild) Anemia in chronic kidney disease Iron deficiency anemia, not otherwise specified documented in this encounter Care Teams Coding Quality Analyst Relationship Specialty Start Date End Date Sahra Son MD [address] [place] [address] PCP - General Internal Medicine 10/28/22 documented as of this encounter
--- OUTSIDE RECORDS SUMMARY | 2024-06-15 13:12 | XMS_ITS | Encounter Summary ---
Author Organization [facility] Address [address] [place] [address] Phone Care Team Providers Care Pneumatic Tester Name Role Phone Sahra Son MD Primary Care Provider + Encounter Details Date Type Department Care Team (Late Contact Info) Description 08/11/2022 Documentation Only [facility] [address] [place] [address] India Davalos [address] [place] [address] Social History Tobacco Use Types [...] Visit [facility] [address] [place] [address] Juan Jose Li MD [address] [place] [address] [place] [address] documented as of this encounter Visit Diagnoses Not on filedocumented in this encounter Care Teams Pneumatic Tester Relationship Specialty Start Date End Date Sahra Son MD [address] [phone] PCP - General Internal Medicine 10/28/22 documented as of this encounter
--- OUTSIDE RECORDS SUMMARY | 2024-06-15 13:12 | XMS_ITS | Encounter Summary ---
Author Organization [facility] Address [address] [place] [address] Phone Care Team Providers Care Electro Winning Operator Name Role Phone Sahra Son MD Primary Care Provider + Encounter Details Date Type Department Care Team (Late Contact Info) Description 11/19/2023 Documentation Only [facility] [address] [place] [address] India Davalos [address] [place] [address] Social History Tobacco Use Types [...] [facility] [address] [place] [address] Juan Jose Li MD [address] [place] [address] [place] [address] documented as of this encounter Visit Diagnoses Not on filedocumented in this encounter Care Teams Electro Winning Operator Relationship Specialty Start Date End Date Sahra Son MD [address] [phone] PCP - General Internal Medicine 10/28/22 documented as of this encounter
--- OUTSIDE RECORDS SUMMARY | 2024-06-15 13:12 | XMS_ITS | Encounter Summary ---
Author Organization [facility] Address [address] [place] [address] Phone Care Team Providers Care Pre K Lead Teacher Name Role Phone Sahra Son MD Primary Care Provider + Encounter Details Date Type Department Care Team (Late Contact Info) Description 12/31/2023 Documentation Only [facility] [address] [place] [address] India Davalos [address] [place] [address] Social History Tobacco Use Types [...] Visit [facility] [address] [place] [address] Juan Jose Li MD [address] [place] [address] [place] [address] documented as of this encounter Visit Diagnoses Not on filedocumented in this encounter Care Teams Pre K Lead Teacher Relationship Specialty Start Date End Date Sahra Son MD [address] [phone] PCP - General Internal Medicine 10/28/22 documented as of this encounter
--- OUTSIDE RECORDS SUMMARY | 2024-06-15 13:12 | XMS_ITS | Encounter Summary ---
Author Organization [facility] Address [address] [place] [address] Phone Care Team Providers Care Recessing Machine Operator Name Role Phone Sahra Son MD Primary Care Provider + Encounter Details Date Type Department Care Team (Late Contact Info) Description 11/05/2023 Documentation Only [facility] [address] [place] [address] India Davalos [address] [place] [address] Social History Tobacco Use Types [...] Visit [facility] [address] [place] [address] Juan Jose Li MD [address] [place] [address] [place] [address] documented as of this encounter Visit Diagnoses Not on filedocumented in this encounter Care Teams Recessing Machine Operator Relationship Specialty Start Date End Date Sahra Son MD [address] [phone] PCP - General Internal Medicine 10/28/22 documented as of this encounter
--- OUTSIDE RECORDS SUMMARY | 2024-06-15 13:12 | XMS_ITS | Encounter Summary ---
Author Organization [facility] Address [address] [place] [address] Care Team Providers Care Cleaning Associate Name Role Phone Sahra Son MD Primary Care Provider Paula daryilaMarko Perales MD Unavailable [phone] Reason for Visit * Reason Onset Date Comments Prior Authorization 09/01/2022 CT CHEST Encounter Details Date Type Department Care Team Description 09/01/2022 Telephone Pulmonology - [place] [address] [facility] [address] [place] [phone] Betty Morillo MD [address] [facility] [address] [place] [phone] Prior Authorization (CT CHEST) Social History Tobacco Use Types Packs/Day Years Used Date Smoking Tobacco: Every Day Cigarettes 1 1 Smokeless Tobacco: Never Alcohol Use Standard Drinks/Week Comments No 0 (1 standard drink = 0.6 oz pur e alcohol) Sex Assigned at Date Recorded Not on file COVID-19 Exposure Response Date Recorded In the last 10 days, have yo u been in contact with someone who was confirmed or suspected to have Coronavirus/COVID-19? No / Unsure 08/31/2022 8:42 AM EDT documented as of this encounter Miscellaneous Notes * Telephone Encounter - Dilcia Hannon - 09/09/2022 11:53 AM EDT [facility] auth still pending Ref#: Barbara Gann on 09/09 @ 11:31 [id number] * Telephone Encounter - Dilcia Hannon - 09/01/2022 1:20 PM EDT [facility] - Auth Pending (7-14 days to process) Auth request, clinicals and Rad report faxed to [facility]. [id number] documented in this encounter Plan of Treatment Not on file documented as of this encounter Visit Diagnoses Not on filedocumented in this encounter Care Teams Cleaning Associate Relationship Specialty Start Date End Date Sahra Son MD PCP - General Internal Medicine 08/31/22 Marko Spaulding MD Specialist Cardiology 09/23/22 documented as of this encounter
--- OUTSIDE RECORDS SUMMARY | 2024-06-15 13:12 | XMS_ITS | Encounter Summary ---
Author Organization [facility] Address [address] [place] [address] Phone Care Team Providers Care Nutrition And Dietetics Instructor Name Role Phone Sahra Son MD Primary Care Provider + Encounter Details Date Type Department Care Team (Late Contact Info) Description 11/11/2023 Documentation Only [facility] [address] [place] [address] India Davalos [address] [place] [address] Social History Tobacco Use Types [...] [facility] [address] [place] [address] Juan Jose Li MD [address] [place] [address] [place] [address] documented as of this encounter Visit Diagnoses Not on filedocumented in this encounter Care Teams Nutrition And Dietetics Instructor Relationship Specialty Start Date End Date Sahra oSn MD [address] [phone] PCP - General Internal Medicine 10/28/22 documented as of this encounter
--- OUTSIDE RECORDS SUMMARY | 2024-06-15 13:12 | XMS_ITS | Encounter Summary ---
Author Organization [facility] Address [address] [place] [address] Phone Care Team Providers Care Band Shover Name Role Phone Sahra Son MD Primary Care Provider + Encounter Details Date Type Department Care Team (Late Contact Info) Description 09/28/2022 Documentation Only [facility] [address] [place] [address] India Davalos [address] [place] [address] Social History Tobacco Use Types [...] Visit [facility] [address] [place] [address] Juan Jose Li MD [address] [place] [address] [place] [address] documented as of this encounter Visit Diagnoses Not on filedocumented in this encounter Care Teams Band Shover Relationship Specialty Start Date End Date Sahra Son MD [address] [address] PCP - General Internal Medicine 10/28/22 documented as of this encounter
--- OUTSIDE RECORDS SUMMARY | 2024-06-15 13:12 | XMS_ITS | Encounter Summary ---
Author Organization [facility] Address [address] [place] [address] Phone Care Team Providers Care Ear Nose Throat Physician Name Role Phone Sahra Son MD Primary Care Provider + Encounter Details Date Type Department Care Team (Late Contact Info) Description 06/22/2022 Documentation Only [facility] [address] [place] [address] India Davalos [address] [place] [address] Social History Tobacco Use Types [...] Visit [facility] [address] [place] [address] Juan Jose Li MD [address] [place] [address] [place] [address] documented as of this encounter Visit Diagnoses Not on filedocumented in this encounter Care Teams Ear Nose Throat Physician Relationship Specialty Start Date End Date Sahra Son MD [address] [id number] PCP - General Internal Medicine 10/28/22 documented as of this encounter
--- OUTSIDE RECORDS SUMMARY | 2024-06-15 13:12 | XMS_ITS | Encounter Summary ---
Author Organization [facility] Address [address] [place] [address] Phone Care Team Providers Care Roll On Man Name Role Phone Sahra Son MD Primary Care Provider + Encounter Details Date Type Department Care Team (Late st Contact Info) Description 05/17/2023 Orders Only [facility] [address] [place] [address] Arlene Alston PA [address] [place] [address] Chronic kidney disease, stage 2 [...] Visit [facility] [address] [place] [address] Juan Jose Li MD [address] [place] [address] documented as of this encounter [...] TIBC, TSAT) (06/08/2023 8:36 AM EST) Pathologist [facility] Iron 49 (30-160) MCG/DL [facility] UIBC 246 (110-370) MCG/DL [facility] TIBC 295 (140-530) MCG/DL [facility] Iron Saturation (TSat) 17(L) (20-55) % [facility] Comment: Testing performed or reported by [facility], a Service of [address] [address] Luis A Bailey MD, Safety Associate CLIA# [id number] Blood (Blood, Venous) 06/08/2023 8:36 AM EST 06/08/2023 8:39 AM EST Arlene CARTER LAB BLOOD ORDERABLES Final Re sult Performing Organization Address [facility] de Phone Number [facility] * Vitamin D 25 hydroxy (06/08/2023 8:36 AM EST) [facility] Vitamin D, 25-Hydroxy 24.8 (20-50) NG/ML [facility] Comment: Testing performed or reported by [facility], a Service of [facility], [address] [place] [address] Luis A Bailey MD, Safety Associate CLIA# [id number] Blood (Blood, Venous) 06/08/2023 8:36 AM EST 06/08/2023 8:39 AM EST Arlene CARTER LAB BLOOD ORDERABLES Final Re sult Performing Organization Address [facility] Co de Phone Number [facility] * (ABNORMAL) Renal function panel (06/08/2023 8:36 AM EST) [facility] Glucose 166(H) (70-99) MG/DL [facility] BUN 19 (8-23) MG/DL [facility] Creatinine 1.0 (0.5-1.0) MG/DL [facility] Sodium 138 (133-145) MMOL/L [facility] Potassium 4.9 (3.6-5.2) MMOL/L [facility] Chloride 101 (98-107) MMOL/L [facility] Bicarbonate (CO2) 27 (22-29) MMOL/L [facility] Anion Gap 10 (4-17) [facility] Albumin 4.2 (3.4-4.8) GM/DL [facility] Calcium 9.1 (8.6-10.5) MG/DL [facility] Phosphorus, Serum 3.4 (2.5-4.5) MG/DL [facility] Est GFR Non 66 ML/MIN/1.7 3 M2 [facility] Comment: Creatinine based estimated glomerular filtration (eGFR) in adults is calculated using the National Kidney Foundation recommended 2020 CKD-EPI equation. Estimates GFR from serum creatinine, age and sex. Testing performed or reported by [facility], a Service of [address] [address] Luis A Bailey MD, Safety Associate CLIA# [id number] Blood (Blood, Venous) 06/08/2023 8:36 AM EST 06/08/2023 8:39 AM EST Arlene CARTER [facility] BLOOD ORDERABLES Final Re sult Performing Organization Address [facility] de Phone Number [facility] * Magnesium (06/08/2023 8:36 AM EST) Magnesium 2.1 (1.6-2.3) mg/dL [facility] Comment: Testing performed or reported by [facility], a Service of [facility], [address] [place] [address] Luis A Bailey MD, Safety Associate CLIA# [id number] Blood (Blood, Venous) 06/08/2023 8:36 AM EST 06/08/2023 8:39 AM EST Arlene CARTER LAB BLOOD ORDERABLES Final Re sult Performing Organization Address [facility]/ZIP Co de Phone Number [facility] * (ABNORMAL) Hemoglobin A1c (06/08/2023 8:36 AM EST) Hemoglobin A1C 7.2(H) (4.0-5.6) % [facility] Comment: MONITORING: In known diabetic patients, hemoglobin A1c targets should be discussed with health care provider. DIAGNOSTIC USE: ??The [place] Diabetes [employer] (ADA) and the World Health [...] Supplement 1 Testing performed or reported by [facility], a Service of [facility], [address] [place] [address] Luis A Bailey MD, Safety Associate [facility]# [id number] Blood (Blood, Venous) 06/08/2023 8:36 AM EST 06/08/2023 8:38 AM EST Arlene CARTER LAB BLOOD ORDERABLES Final Re sult [facility] * (ABNORMAL) CBC and differential (06/08/2023 8:36 AM EST) White Blood Cells 5.2 (4.0-11.0 ) K/MM3 [facility] RBC 5.08 (4.20-5.4 0) M/MM3 [facility] Hgb 10.1(L) (11.7-15. 5) GM/DL [facility] Hematocrit 32.9(L) (35.7-45. 8) % [facility] MCV 64.8(L) (80.0-100 .0) FL [facility] MCH 19.9(L) (27.0-34. 0) PG [facility] MCHC 30.7(L) (33.0-37. 0) g/dL [facility] Platelets 191 (150-460) K/MM3 [facility] RDW-SD 40.3 (<47.0) FL [facility] MPV NOT MEASURED (9.4-12.4 ) FL [facility] nRBC Count 0.0 #/100 WBC'S [facility] NRBC Absolute 0.0 K/MM3 [facility] Neutrophils Abs Auto 3.5 (1.3-7.0) K/MM3 [facility] Lymphocytes Relative 1.3 (0.8-3.1) K/MM3 [facility] Monocytes 0.3(L) (0.4-0.9) K/MM3 [facility] Eosinophils Relative 0.1 (0.0-0.4) K/MM3 [facility] Basophil ABS 0.0 (0.0-0.1) K/MM3 [facility] Granulocytes Absolute 0.0 K/MM3 [facility] Neutrophils % Auto 67.3 (44-76) % [facility] Lymphs 24.0 (15-43) % [facility] Monocytes Absolute 5.8 (4.5-10.5 ) % [facility] Eosinophils 1.7 (0-6) % [facility] Basophils Relative 0.8 (0-2) % [facility] Immature Granulocytes 0.4 % [facility] Comment: Testing performed or reported by [facility], a Service of [facility], [address] [place] [address] Luis A Bailey MD, Safety Associate [facility]# [id number] Blood (Blood, Venous) 06/08/2023 8:36 AM EST 06/08/2023 8:38 AM EST us Arlene CARTER LAB BLOOD ORDERABLES Final Re sult [facility] documented in this encounter Visit Diagnoses Diagnosis Chronic kidney disease, stage 2 (mild) Essential (primary) hypertension Anemia in chronic kidney disease Antiphospholipid syndrome (HCC) Type 2 diabetes mellitus, not otherwise specified (HCC) Bleeding hemorrhoids documented in this encounter Care Teams Roll On Man Relationship Specialty Start Date End Date Sahra Son MD [address] [id number] PCP - General Internal Medicine 10/28/22 documented as of this encounter
--- OUTSIDE RECORDS SUMMARY | 2024-06-15 13:12 | XMS_ITS | Encounter Summary ---
Author Organization [facility] Address [address] [place] [address] Phone Care Team Providers Care Vegetable Grader Name Role Phone Sahra Son MD Primary Care Provider + Encounter Details Date Type Department Care Team (Late Contact Info) Description 09/28/2022 Documentation Only [facility] [address] [place] [address] India Davalos [address] [place], [...] Visit [facility] [address] [place] [address] Juan Jose Li MD [address] [place] [address] [place] [address] documented as of this encounter Visit Diagnoses Not on filedocumented in this encounter Care Teams Vegetable Grader Relationship Specialty Start Date End Date Sahra Son MD [address] [address] PCP - General Internal Medicine 10/28/22 documented as of this encounter
--- OUTSIDE RECORDS SUMMARY | 2024-06-15 13:12 | XMS_ITS | Encounter Summary ---
Author Organization [facility] Address [address] [place] [address] Phone Care Team Providers Care Glass Beveller Name Role Phone Sahra Son MD Primary Care Provider + Encounter Details Date Type Department Care Team (Late Contact Info) Description 11/11/2023 Documentation Only [facility] [address] [place] [address] India Davalos [address] [place] [address] Social History Tobacco Use Types [...] [facility] [address] [place] [address] Juan Jose Li MD [address] [place] [address] [place] [address] documented as of this encounter Visit Diagnoses Not on filedocumented in this encounter Care Teams Glass Beveller Relationship Specialty Start Date End Date Sahra Son MD [address] [phone] PCP - General Internal Medicine 10/28/22 documented as of this encounter
--- OUTSIDE RECORDS SUMMARY | 2024-06-15 13:12 | XMS_ITS | Encounter Summary ---
Author Organization [facility] Address [address] [place] [address] Phone Care Team Providers Care Pole Truck Driver Name Role Phone Sahra Son MD Primary Care Provider + Encounter Details Date Type Department Care Team (Late Contact Info) Description 06/18/2021 Documentation Only [facility] [address] [place] [address] India Davalos [address] [place] [address] Social History Tobacco Use Types [...] [facility] [address] [place] [address] Juan Jose Li MD [address] [place] [address] [place] [address] documented as of this encounter Visit Diagnoses Not on filedocumented in this encounter Care Teams Pole Truck Driver Relationship Specialty Start Date End Date Sahra Son MD [address] [address] PCP - General Internal Medicine 10/28/22 documented as of this encounter
--- OUTSIDE RECORDS SUMMARY | 2024-06-15 13:12 | XMS_ITS | Encounter Summary ---
Author Organization [facility] Address [address] [place] [address] Phone Care Team Providers Care Core Maker Helper Name Role Phone Sahra Son MD Primary Care Provider + Encounter Details Date Type Department Care Team (Late Contact Info) Description 04/14/2022 Documentation Only [facility] [address] [place] [address] India Davalos [address] [place] [address] Social History Tobacco Use Types [...] [facility] [address] [place] [address] Juan Jose Li MD [address] [place] [address] [place] [address] documented as of this encounter Visit Diagnoses Not on filedocumented in this encounter Care Teams Core Maker Helper Relationship Specialty Start Date End Date Sahra Son MD [address] [phone] PCP - General Internal Medicine 10/28/22 documented as of this encounter
--- OUTSIDE RECORDS SUMMARY | 2024-06-15 13:12 | XMS_ITS | Encounter Summary ---
Author Organization [facility] Address [address] [place] [address] Phone Care Team Providers Care Overhead Crane Technician Name Role Phone Sahra Son MD Primary Care Provider + Encounter Details Date Type Department Care Team (Late Contact Info) Description 11/21/2021 Documentation Only [facility] [address] [place] [address] India Davalos [address] [place] [address] Social History Tobacco Use Types [...] [facility] [address] [place] [address] Juan Jose Li MD [address] [place] [address] [place] [address] documented as of this encounter Visit Diagnoses Not on filedocumented in this encounter Care Teams Overhead Crane Technician Relationship Specialty Start Date End Date Sahra Son MD [address] [phone] PCP - General Internal Medicine 10/28/22 documented as of this encounter
--- OUTSIDE RECORDS SUMMARY | 2024-06-15 13:12 | XMS_ITS | Encounter Summary ---
Author Organization [facility] Address [address] [place] [address] Phone Care Team Providers Care Civil Engineering Assistant Name Role Phone Sahra Son MD Primary Care Provider + Encounter Details Date Type Department Care Team ([facility] Contact Info) Description 03/11/2023 Documentation Only [facility] [address] [place] [address] India Davalos [address] [place] [address] Social History Tobacco Use Types [...] [facility] [address] [place] [address] Juan Jose Li MD [address] [place] [address] [place] [address] documented as of this encounter Visit Diagnoses Not on filedocumented in this encounter Care Teams Civil Engineering Assistant Relationship Specialty Start Date End Date Sahra Son MD [address] [phone] PCP - General Internal Medicine 10/28/22 documented as of this encounter
--- OUTSIDE RECORDS SUMMARY | 2024-06-15 13:12 | XMS_ITS | Encounter Summary ---
Author Organization [facility] Address [address] [place] [address] Phone Care Team Providers Care Manager Rn Name Role Phone Sahra Son MD Primary Care Provider + Encounter Details Date Type Department Care Team (Late Contact Info) Description 06/09/2024 Orders Only [facility] [address] [place] [address] India Davalos [address] [place] [address] Anemia in chronic kidney disease; [...] Visit [facility] [address] [place] [address] Juan Jose Li MD [address] [facility] [place] [address] documented as of this encounter Visit Diagnoses Diagnosis Anemia in chronic kidney disease Other iron deficiency anemia Chronic kidney disease, stage 2 (mild) documented in this encounter Care Teams Manager Rn Relationship Specialty Start Date End Date Cherella, Sahra M, MD [address] [place] [address] PCP - General Internal Medicine 10/28/22 documented as of this encounter
--- OUTSIDE RECORDS SUMMARY | 2024-06-15 13:12 | XMS_ITS | Encounter Summary ---
Author Organization [facility] Address [address] [place] [address] Phone Care Team Providers Care Manager Pediatric Name Role Phone Sahra Son MD Primary Care Provider + Encounter Details Date Type Department Care Team (Late Contact Info) Description 09/28/2022 Documentation Only [facility] [address] [place] [address] India Davalos [address] [place] [address] Social History Tobacco Use Types [...] Visit [facility] [address] [place] [address] Juan Jose Li MD [address] [place] [address] [place] [address] documented as of this encounter Visit Diagnoses Not on filedocumented in this encounter Care Teams Manager Pediatric Relationship Specialty Start Date End Date Sahra Son MD [address] [address] PCP - General Internal Medicine 10/28/22 documented as of this encounter
--- OUTSIDE RECORDS SUMMARY | 2024-06-15 13:12 | XMS_ITS | Encounter Summary ---
Author Organization [facility] Address [address] [place] [address] Phone Care Team Providers Care Road Consultant Name Role Phone Sahra Son MD Primary Care Provider + Encounter Details Date Type Department Care Team (Late Contact Info) Description 11/11/2023 Documentation Only [facility] [address] [place] [address] India Davalos [address] [place] [address] Social History Tobacco Use Types [...] [facility] [address] [place] [address] Juan Jose Li MD [address] [place] [address] [place] [address] documented as of this encounter Visit Diagnoses Not on filedocumented in this encounter Care Teams Road Consultant Relationship Specialty Start Date End Date Sahra Son MD [address] [phone] PCP - General Internal Medicine 10/28/22 documented as of this encounter
--- OUTSIDE RECORDS SUMMARY | 2024-06-15 13:12 | XMS_ITS | Encounter Summary ---
Author Organization [facility] Address [address] [place] [address] Phone Care Team Providers Care Aircraft Painter Name Role Phone Sahra Son MD Primary Care Provider + Encounter Details Date Type Department Care Team (Late Contact Info) Description 08/11/2022 Documentation Only [facility] [address] [place] [address] India Davalos [address] [place], [place] [...] [facility] [address] [place] [address] Juan Jose Li MD [address] [place] [address] [place] [address] documented as of this encounter Visit Diagnoses Not on filedocumented in this encounter Care Teams Aircraft Painter Relationship Specialty Start Date End Date Sahra Son MD [address] [phone] PCP - General Internal Medicine 10/28/22 documented as of this encounter
--- OUTSIDE RECORDS SUMMARY | 2024-06-15 13:12 | XMS_ITS | Encounter Summary ---
Author Organization [facility] Address [address] [place] [address] Phone Care Team Providers Care Emergency Room Specialist Name Role Phone Sahra Son MD Primary Care Provider + Encounter Details Date Type Department Care Team (Late Contact Info) Description 03/03/2024 Orders Only [facility] [address] [place] [place] [address] India Davalos [address] [place] [address] Chronic kidney disease, stage 2 [...] [facility] [address] [place] [address] Juan Jose Li MD [address] [place] [address] [place] [address] documented as of this encounter [...] Glucose 152(H) 70 - 99 mg/dL [facility] BUN 16 8 - 27 mg/dL [facility] Creatinine 0.98 0.57 - 1.00 mg/dL [facility] eGFR CKD-EPI CR 2020 64 >59 mL/min/1.7 3 [facility] BUN/Creatinine Ratio 16 12 - 28 [facility] Sodium 137 134 - 144 mmol/L [facility] Potassium 4.8 3.5 - 5.2 mmol/L [facility] Chloride 101 96 - 106 mmol/L [facility] Bicarbonate (CO2) 22 20 - 29 mmol/L [facility] Calcium 8.8 8.7 - 10.3 mg/dL [facility] Albumin 4.0 3.9 - 4.9 g/dL [facility] Phosphorus 4.0 3.0 - 4.3 mg/dL [facility] Blood (Blood, Venous) 03/24/2024 10:37 AM EST 03/24/2024 Barry Reyes MD LAB BLOOD ORDERABLES Final Re sult Performing Organization Address City/[facility]/ZIP Co de Phone Number [facility] [address] [place] [address] * Ferritin (03/24/2024 10:37 AM EST) Ferritin 37 15 - 150 ng/mL [facility] Blood (Blood, Venous) 03/24/2024 10:37 AM EST 03/24/2024 Barry Reyes MD LAB BLOOD ORDERABLES Final Re sult Performing Organization Address [facility] de Phone Number [facility] [address] [place] [address] * Iron Panel (Fe, TIBC, TSAT) (03/24/2024 10:37 AM EST) TIBC 293 250 - 450 ug/dL [facility] UIBC 247 118 - 369 ug/dL [facility] Iron 46 27 - 139 ug/dL [facility] Iron Saturation (TSat) 16 15 - 55 % [facility] Blood (Blood, Venous) 03/24/2024 10:37 AM EST 03/24/2024 Barry Reyes MD LAB BLOOD ORDERABLES Final Re sult Performing Organization Address City/[facility]/ZIP Co de [facility] Number [facility] [address] [place] [address] * (ABNORMAL) CBC and Differential (03/24/2024 10:37 AM EST) [facility] Signature WBC 6.0 3.4 - 10.8 x10E3/uL [facility] RBC 5.21 3.77 - 5.28 x10E6/uL [facility] Hemoglobin 10.0(L) 11.1 - 15.9 g/dL [facility] Hematocrit 35.3 34.0 - 46.6 % [facility] MCV 68(L) 79 - 97 fL [facility] MCH 19.2(L) 26.6 - 33.0 pg [facility] MCHC 28.3(L) 31.5 - 35.7 g/dL [facility] RDW 19.4(H) 11.7 - 15.4 % [facility] Platelets 186 150 - 450 x10E3/uL [facility] Neutrophils Relative 65 Not Estab. % [facility] Lymphocytes Relative 26 Not Estab. % [facility] Monocytes 6 Not Estab. % [facility] Eosinophils Relative 2 Not Estab. % [facility] Basophils Relative 1 Not Estab. % [facility] Neutrophils Absolute 3.9 1.4 - 7.0 x10E3/uL [facility] Lymphocytes Absolute 1.5 0.7 - 3.1 x10E3/uL [facility] Monocytes Absolute 0.3 0.1 - 0.9 x10E3/uL [facility] Eosinophils Absolute 0.1 0.0 - 0.4 x10E3/uL [facility] Basophils Absolute 0.0 0.0 - 0.2 x10E3/uL [facility] Immature Granulocytes 0 Not Estab. % [facility] Immature Grans (Absolute) 0.0 0.0 - 0.1 x10E3/uL [facility] Blood (Blood, Venous) 03/24/2024 10:37 AM EST 03/24/2024 us Barry Reyes MD LAB BLOOD ORDERABLES Final Re sult [facility] [address] [place] [address] documented in this encounter Visit Diagnoses Diagnosis Chronic kidney disease, stage 2 (mild) Anemia in chronic kidney disease Iron deficiency anemia, not otherwise specified documented in this encounter Care Teams Emergency Room Specialist Relationship Specialty Start Date End Date Sahra Son MD [address] [place] [address] PCP - General Internal Medicine 10/28/22 documented as of this encounter
--- OUTSIDE RECORDS SUMMARY | 2024-06-15 13:12 | XMS_ITS | Encounter Summary ---
Author Organization [facility] Address [address] [place] [address] Phone Care Team Providers Care Sprinkler Repair Technician Name Role Phone Sahra Son MD Primary Care Provider + Encounter Details Date Type Department Care Team (Late Contact Info) Description 01/04/2024 Documentation Only [facility] [address] [place] [address] India Davalos [address] [place] [address] Social History Tobacco Use [...] [facility] [address] [place] [address] Juan Jose Li MD [address] [place] [address] [place] [address] documented as of this encounter Visit Diagnoses Not on filedocumented in this encounter Care Teams Sprinkler Repair Technician Relationship Specialty Start Date End Date Sahra Son MD [address] [address] PCP - General Internal Medicine 10/28/22 documented as of this encounter
--- OUTSIDE RECORDS SUMMARY | 2024-06-15 13:12 | XMS_ITS | Encounter Summary ---
Author Organization [facility] Address [address] [place] [address] Phone Care Team Providers Care Soil Checker Name Role Phone Sahra Son MD Primary Care Provider + Encounter Details Date Type Department Care Team (Late Contact Info) Description 06/17/2022 Documentation Only [facility] [address] [place] [address] India Davalos [address] [place] [address] Social History Tobacco Use Types [...] [facility] [address] [place] [address] Juan Jose Li MD [address] [place] [address] [place] [address] documented as of this encounter Visit Diagnoses Not on filedocumented in this encounter Care Teams Soil Checker Relationship Specialty Start Date End Date Sahra Son MD [address] [phone] PCP - General Internal Medicine 10/28/22 documented as of this encounter
--- OUTSIDE RECORDS SUMMARY | 2024-06-15 13:12 | XMS_ITS | Encounter Summary ---
Author Organization [facility] Address [address] [place] [address] Phone Care Team Providers Care Industrial Health Engineer Name Role Phone Sahra Son MD Primary Care Provider + Encounter Details Date Type Department Care Team (Late Contact Info) Description 11/11/2023 Documentation Only [facility] [address] [place] [address] India Davalos [address] [place] [address] Social History Tobacco Use Types [...] [facility] [address] [place] [address] Juan Jose Li MD [address] [place] [address] [place] [address] documented as of this encounter Visit Diagnoses Not on filedocumented in this encounter Care Teams Industrial Health Engineer Relationship Specialty Start Date End Date Sahra Son MD [address] [phone] PCP - General Internal Medicine 10/28/22 documented as of this encounter
--- OUTSIDE RECORDS SUMMARY | 2024-06-15 13:12 | XMS_ITS | Encounter Summary ---
Author Organization [facility] Address [address] [place] [address] Phone Care Team Providers Care Special Education Teaching Assistant Name Role Phone Sahra Son MD Primary Care Provider + Encounter Details Date Type Department Care Team ([facility] Contact Info) Description 03/11/2023 Documentation Only [facility] [address] [place] [address] India Davalos [address] [place] [address] Social History Tobacco Use Types [...] [facility] [address] [place] [address] Juan Jose Li MD [address] [place] [address] [place] [address] documented as of this encounter Visit Diagnoses Not on filedocumented in this encounter Care Teams Special Education Teaching Assistant Relationship Specialty Start Date End Date Sahra Son MD [address] [phone] PCP - General Internal Medicine 10/28/22 documented as of this encounter
--- OUTSIDE RECORDS SUMMARY | 2024-06-15 13:12 | XMS_ITS | Encounter Summary ---
Author Organization [facility] Address [address] [place] [address] Phone Care Team Providers Care Sanitation Inspector Name Role Phone Sahra Son MD Primary Care Provider + Encounter Details Date Type Department Care Team (Late Contact Info) Description 06/30/2020 Orders Only [facility] [address] [place] [address] Carol Whelan [address] [place] [address] Iron deficiency anemia, not otherwise [...] Visit [facility] [address] [place] [address] Juan Jose Li MD [address] [place] [address] documented as of this encounter Visit Diagnoses Diagnosis Iron deficiency anemia, not otherwise specified Chronic kidney disease, Stage II (mild) documented in this encounter Care Teams Sanitation Inspector Relationship Specialty Start Date End Date Sahra Son MD [address] [place] [address] PCP - General Internal Medicine 10/28/22 documented as of this encounter
--- OUTSIDE RECORDS SUMMARY | 2024-06-15 13:12 | XMS_ITS | Encounter Summary ---
Author Organization [employer] [facility] Address [address] [place] [address] Care Team Providers Care Stone Finisher Name Role Phone Sahra Son MD Primary Care Provider Marko Fernandez MD Unavailable [phone] Encounter Details Date Type Department Care Team Description 09/02/2022 Telephone Pulmonology - [place] [address] [address] [place] [phone] Betty Morillo MD [address] [facility] [address] [place] [phone] Social History Tobacco Use Types Packs/Day Years [...] encounter Miscellaneous Notes * Telephone Encounter - Nena Irizarry - 09/02/2022 10:41 AM EDT Brittany from pcp [facility] requesting last office notes fax [phone] documented in this encounter Plan of Treatment Not on file documented as of this encounter Visit Diagnoses Not on filedocumented in this encounter Care Teams Stone Finisher Relationship Specialty Start Date End Date Sahra Son MD PCP - General Internal Medicine 08/31/22 Marko Spaulding MD Specialist Cardiology 09/23/22 documented as of this encounter
--- OUTSIDE RECORDS SUMMARY | 2024-06-15 13:12 | XMS_ITS | Encounter Summary ---
Author Organization [facility] Address [address] [place] [address] Phone Care Team Providers Care Telecine Operator Name Role Phone Sahra Son MD Primary Care Provider + Encounter Details Date Type Department Care Team (Late Contact Info) Description 11/17/2023 Documentation Only [facility] [address] [place] [address] India Davalos [address] [place] [address] Social History Tobacco Use Types [...] [facility] [address] [place] [address] Juan Jose Li MD [address] [place] [address] [place] [address] documented as of this encounter Visit Diagnoses Not on filedocumented in this encounter Care Teams Telecine Operator Relationship Specialty Start Date End Date Sahra Son MD [address] [phone] PCP - General Internal Medicine 10/28/22 documented as of this encounter
--- OUTSIDE RECORDS SUMMARY | 2024-06-15 13:12 | XMS_ITS | Encounter Summary ---
Author Organization [facility] Address [address] [place] [address] Phone Care Team Providers Care Stock Worker And Deliverer Name Role Phone Sahra Son MD Primary Care Provider + Encounter Details Date Type Department Care Team (Late Contact Info) Description 11/11/2023 Documentation Only [facility] [address] [place] [address] India Davalos [address] [place] [address] Social History Tobacco Use Types [...] Visit [facility] [address] [place] [address] Juan Jose Li MD [address] [place] [address] [place] [address] documented as of this encounter Visit Diagnoses Not on filedocumented in this encounter Care Teams Stock Worker And Deliverer Relationship Specialty Start Date End Date Sahra Son MD [address] [phone] PCP - General Internal Medicine 10/28/22 documented as of this encounter
--- OUTSIDE RECORDS SUMMARY | 2024-06-15 13:12 | XMS_ITS | Encounter Summary ---
Author Organization [facility] Address [address] [place] [address] Phone Care Team Providers Care Conference Director Name Role Phone Sahra Son MD Primary Care Provider + Encounter Details Date Type Department Care Team (Late Contact Info) Description 08/22/2021 Documentation Only [facility] [address] [place] [address] India Davalos [address] [place] [address] Social History Tobacco Use Types [...] [facility] [address] [place] [address] Juan Jose Li MD [address] [place] [address] [place] [address] documented as of this encounter Visit Diagnoses Not on filedocumented in this encounter Care Teams Conference Director Relationship Specialty Start Date End Date Sahra Son MD [address] [address] PCP - General Internal Medicine 10/28/22 documented as of this encounter
--- OUTSIDE RECORDS SUMMARY | 2024-06-15 13:12 | XMS_ITS | Encounter Summary ---
Author Organization [facility] [place] Address [address] [place] [address] Phone Care Team Providers Care Cma Name Role Phone Sahra Son MD Primary Care Provider + Reason for Visit * Reason Onset Date Comments lab reminder 06/05/2024 Encounter Details Date Type Department Care Team (Late st Contact Info) Description 06/05/2024 Telephone [facility] [address] [place] [phone] Stephanie Azul, LAURITA [address] [place] [address] [place] [phone] lab reminder Social History Tobacco Use Types [...] PM EST Received message from Lexi at [facility] infusion (jewel inserter). Lexi reports that pt no showed on 06/01/24. Her next appt is 06/09/24. Pt last had labs drawn on 06/05/24. I left message on Jennifer's phone to get labs drawn by 06/07/24. documented in this encounter Plan of Treatment Upcoming Encounters Date Type Department Care Team (Late st Contact Info) Description 07/04/2024 2:30 PM EST Office Visit [facility] [place], [address] [place] [address] Juan Jose Li MD [address] [place] [address] [place] [address] documented as of this encounter Visit Diagnoses Not on filedocumented in this encounter Care Teams Cma Relationship Specialty Start Date End Date Sahra Son MD [address] [address] PCP - General Internal Medicine 10/28/22 documented as of this encounter
--- OUTSIDE RECORDS SUMMARY | 2024-06-15 13:12 | XMS_ITS | Encounter Summary ---
Author Organization [facility] Address [address] [place] [address] Phone Care Team Providers Care Certified Caregiver Name Role Phone Sahra Son MD Primary Care Provider + Encounter Details Date Type Department Care Team ([facility] Contact Info) Description 01/06/2022 Documentation Only [facility] [address] [place] [address] Juan Jose Li MD [address] [place] [address] [place] [address] Social History Tobacco Use Types [...] Visit [facility] [address] [place] [address] Juan Jose Li MD [address] [place] [address] [place] [address] documented as of this encounter Visit Diagnoses Not on filedocumented in this encounter Care Teams Certified Caregiver Relationship Specialty Start Date End Date Sahra Son MD [address] [address] PCP - General Internal Medicine 10/28/22 documented as of this encounter
--- OUTSIDE RECORDS SUMMARY | 2024-06-15 13:12 | XMS_ITS | Encounter Summary ---
Author Organization [facility] Address [address] [place] [address] Phone Care Team Providers Care Tinning Machine Set Up Operator Name Role Phone Sahra Son MD Primary Care Provider + Encounter Details Date Type Department Care Team (Late Contact Info) Description 01/31/2024 Orders Only [facility] [address] [place] [address] Arlene Alston PA [address] [place] [address] [place] [address] Chronic kidney disease, stage 2 [...] [facility] [address] [place] [address] Juan Jose Li MD [address] [place] [address] [place] [address] documented as of this encounter Visit Diagnoses Diagnosis Chronic kidney disease, stage 2 (mild) Essential (primary) hypertension Iron deficiency anemia, not otherwise specified Type 2 diabetes mellitus, not otherwise specified (HCC) Antiphospholipid syndrome (HCC) documented in this encounter Care Teams Tinning Machine Set Up Operator Relationship Specialty Start Date End Date Sahra Son MD [address] [address] PCP - General Internal Medicine 10/28/22 documented as of this encounter
--- OUTSIDE RECORDS SUMMARY | 2024-06-15 13:12 | XMS_ITS | Encounter Summary ---
Author Organization [facility] Address [address] [place] [address] Phone Care Team Providers Care Decommissioning Well Site Manager Name Role Phone Sahra Son MD Primary Care Provider + Encounter Details Date Type Department Care Team (Late Contact Info) Description 11/11/2023 Documentation Only [facility] [address] [place] [address] India Davalos [address] [place] [address] Social History Tobacco Use Types [...] [facility] [address] [place] [address] Juan Jose Li MD [address] [place] [address] [place] [address] documented as of this encounter Visit Diagnoses Not on filedocumented in this encounter Care Teams Decommissioning Well Site Manager Relationship Specialty Start Date End Date Sahra Son MD [address] [phone] PCP - General Internal Medicine 10/28/22 documented as of this encounter
--- OUTSIDE RECORDS SUMMARY | 2024-06-15 13:13 | XMS_ITS | Encounter Summary ---
Author Organization [facility] Address [address] [place] [address] Phone Care Team Providers Care Intelligence Officer Basic Name Role Phone Sahra Son MD Primary Care Provider + Encounter Details Date Type Department Care Team (Late Contact Info) Description 10/07/2021 Documentation Only [facility] [address] [place] [address] India Davalos [address] [place] [address] Social History Tobacco Use Types [...] Visit [facility] [address] [place] [address] Juan Jose Li MD [address] [place] [address] [place] [address] documented as of this encounter Visit Diagnoses Not on filedocumented in this encounter Care Teams Intelligence Officer Basic Relationship Specialty Start Date End Date Sahra Son MD [address] [address] PCP - General Internal Medicine 10/28/22 documented as of this encounter
--- OUTSIDE RECORDS SUMMARY | 2024-06-15 13:13 | XMS_ITS | Encounter Summary ---
Author Organization [facility] Address [address] [place] [address] Phone Care Team Providers Care Turret Press Operator Name Role Phone Sahra Son MD Primary Care Provider + Encounter Details Date Type Department Care Team (Late Contact Info) Description 08/05/2023 Documentation Only [facility] [address] [place] [address] India Davalos [address] [place] [address] Social History Tobacco Use Types [...] [facility] [address] [place] [address] Juan Jose Li MD [address] [place] [address] [place] [address] documented as of this encounter Visit Diagnoses Not on filedocumented in this encounter Care Teams Turret Press Operator Relationship Specialty Start Date End Date Sahra Son MD [address] [phone] PCP - General Internal Medicine 10/28/22 documented as of this encounter
--- OUTSIDE RECORDS SUMMARY | 2024-06-15 13:13 | XMS_ITS | Encounter Summary ---
Author Organization [facility] Address [address] [place] [address] Phone Care Team Providers Care Microfabrication Engineer Manager Name Role Phone Sahra Son MD Primary Care Provider + Encounter Details Date Type Department Care Team ([facility] Contact Info) Description 03/11/2023 Documentation Only [facility] [address] [place] [address] India Davalos [address] [place] [address] Social History Tobacco Use Types [...] [facility] [address] [place] [address] Juan Jose Li MD [address] [place] [address] Dr[place] [address] documented as of this encounter Visit Diagnoses Not on filedocumented in this encounter Care Teams Microfabrication Engineer Manager Relationship Specialty Start Date End Date Sahra Son MD [address] [phone] PCP - General Internal Medicine 10/28/22 documented as of this encounter
--- OUTSIDE RECORDS SUMMARY | 2024-06-15 13:13 | XMS_ITS | Encounter Summary ---
Author Organization [facility] Address [address] [place] [address] Phone Care Team Providers Care Airplane Mechanic Apprentice Name Role Phone Sahra Son MD Primary Care Provider + Encounter Details Date Type Department Care Team (Late Contact Info) Description 10/26/2022 Documentation Only [facility] [address] [place] [address] India Davalos [address] [place] [address] Social History Tobacco Use Types [...] Visit [facility] [address] [place] [address] Juan Jose Li MD [address] [place] [address] [place] [address] documented as of this encounter Visit Diagnoses Not on filedocumented in this encounter Care Teams Airplane Mechanic Apprentice Relationship Specialty Start Date End Date Sahra Son MD [address] [phone] PCP - General Internal Medicine 10/28/22 documented as of this encounter
--- OUTSIDE RECORDS SUMMARY | 2024-06-15 13:13 | XMS_ITS | Encounter Summary ---
Author Organization [facility] Address [address] [place] [address] Phone Care Team Providers Care Grade Teacher Name Role Phone Sahra Son MD Primary Care Provider + Encounter Details Date Type Department Care Team (Late Contact Info) Description 06/25/2021 Documentation Only [facility] [address] [place] [address] India Davalos [address] [place] [address] Social History Tobacco Use Types [...] [facility] [address] [place] [address] Juan Jose Li MD [address] [place] [address] [place] [address] documented as of this encounter Visit Diagnoses Not on filedocumented in this encounter Care Teams Grade Teacher Relationship Specialty Start Date End Date Sahra Son MD [address] [address] PCP - General Internal Medicine 10/28/22 documented as of this encounter
--- OUTSIDE RECORDS SUMMARY | 2024-06-15 13:13 | XMS_ITS | Encounter Summary ---
Author Organization [facility] Address [address] [place] [address] Phone Care Team Providers Care Homeland Security Program Specialist Name Role Phone Sahra Son MD Primary Care Provider + Encounter Details Date Type Department Care Team (Late Contact Info) Description 04/05/2024 Documentation Only [facility] [address] [place] [address] India Davalos [address] [place] [address] Social History Tobacco Use Types [...] [facility] [address] [place] [address] Juan Jose Li MD [address] [place] [address] [place] [address] documented as of this encounter Visit Diagnoses Not on filedocumented in this encounter Care Teams Homeland Security Program Specialist Relationship Specialty Start Date End Date Sahra Son MD [address] [phone] PCP - General Internal Medicine 10/28/22 documented as of this encounter
--- OUTSIDE RECORDS SUMMARY | 2024-06-15 13:13 | XMS_ITS | Encounter Summary ---
Author Organization [facility] Address [address] [place] [address] Phone Care Team Providers Care Brazer Production Line Name Role Phone Sahra Son MD Primary Care Provider + Encounter Details Date Type Department Care Team (Late Contact Info) Description 04/05/2024 Documentation Only [facility] [address] [place] [address] India Davalos [address] [place] [address] Social History Tobacco Use [...] Visit [facility] [address] [place] [address] Juan Jose Li MD [address] [place] [address] [place] [address] documented as of this encounter Visit Diagnoses Not on filedocumented in this encounter Care Teams Brazer Production Line Relationship Specialty Start Date End Date Sahra Son MD [address] [phone] PCP - General Internal Medicine 10/28/22 documented as of this encounter
--- OUTSIDE RECORDS SUMMARY | 2024-06-15 13:13 | XMS_ITS | Encounter Summary ---
Author Organization [facility] Address [address] [place] [address] Phone Care Team Providers Care Manager Erp Name Role Phone Sahra Son MD Primary Care Provider + Encounter Details Date Type Department Care Team (Late Contact Info) Description 12/24/2022 Documentation Only [facility] [address] [place] [address] Carol Whelan [address] [place] [address] Social History Tobacco Use Types [...] [facility] [address] [place] [address] Juan Jose Li MD [address] [place] [address] [place] [address] documented as of this encounter Visit Diagnoses Not on filedocumented in this encounter Care Teams Manager Erp Relationship Specialty Start Date End Date Sahra Son MD [address] [address] PCP - General Internal Medicine 10/28/22 documented as of this encounter
--- OUTSIDE RECORDS SUMMARY | 2024-06-15 13:13 | XMS_ITS | Encounter Summary ---
Author Organization [facility] Address [address] [place] [address] Phone Care Team Providers Care Egg Sorter Name Role Phone Sahra Son MD Primary Care Provider + Encounter Details Date Type Department Care Team (Late Contact Info) Description 06/09/2023 Documentation Only [facility] [address] [place] [address] India Davalos [address] [place] [address] Social History Tobacco Use Types [...] [facility] [address] [place] [address] Juan Jose Li MD [address] [place] [address] [place] [address] documented as of this encounter Visit Diagnoses Not on filedocumented in this encounter Care Teams Egg Sorter Relationship Specialty Start Date End Date Sahra Son MD [address] [phone] PCP - General Internal Medicine 10/28/22 documented as of this encounter
--- OUTSIDE RECORDS SUMMARY | 2024-06-15 13:13 | XMS_ITS | Encounter Summary ---
Author Organization [facility] Address [address] [place] [address] Phone Care Team Providers Care Logistics Lead Name Role Phone Sahra Son MD Primary Care Provider + Encounter Details Date Type Department Care Team (Late Contact Info) Description 05/26/2024 Orders Only [facility] [address] [place] [address] India Davalos [address] [place] [address] Chronic kidney disease, stage 2 [...] Visit [facility] [address] [place] [address] Juan Jose Li MD [address] [place] [address] Dr[place] [address] documented as of this encounter [...] Glucose 168(H) 70 - 99 mg/dL [facility] BUN 17 8 - 27 mg/dL [facility] Creatinine 1.09(H) 0.57 - 1.00 mg/dL [facility] eGFR CKD-EPI CR 2020 57(L) >59 mL/min/1.7 3 [facility] BUN/Creatinine Ratio 16 12 - 28 [facility] Sodium 137 134 - 144 mmol/L [facility] Potassium 4.8 3.5 - 5.2 mmol/L [facility] Chloride 99 96 - 106 mmol/L [facility] Bicarbonate (CO2) 23 20 - 29 mmol/L [facility] Calcium 9.0 8.7 - 10.3 mg/dL [facility] Albumin 4.2 3.9 - 4.9 g/dL [facility] Phosphorus 4.4(H) 3.0 - 4.3 mg/dL [facility] Blood (Blood, Venous) 06/07/2024 11:53 AM EST 06/07/2024 Barry Reyes MD LAB BLOOD ORDERABLES Final Re sult Performing Organization Address City/[facility]/ZIP Co de Phone Number [facility] [address] [place] [address] * Ferritin (06/07/2024 11:53 AM EST) Ferritin 102 15 - 150 ng/mL [facility] Blood (Blood, Venous) 06/07/2024 11:53 AM EST 06/07/2024 Barry Reyes MD LAB BLOOD ORDERABLES Final Re sult Performing Organization Address [facility]UST de Phone Number [facility] [address] [place] [address] * Iron Panel (Fe, TIBC, TSAT) (06/07/2024 11:53 AM EST) TIBC 262 250 - 450 ug/dL [facility] UIBC 205 118 - 369 ug/dL [facility] Iron 57 27 - 139 ug/dL [facility] Iron Saturation (TSat) 22 15 - 55 % [facility] Blood (Blood, Venous) 06/07/2024 11:53 AM EST 06/07/2024 Barry Reyes MD LAB BLOOD ORDERABLES Final Re sult Performing Organization Address [facility]/ZIP Co de Phone Number [facility] [address] [place] [address] * (ABNORMAL) CBC and Differential (06/07/2024 11:53 AM EST) [facility] WBC 5.5 3.4 - 10.8 x10E3/uL [facility] RBC 5.76(H) 3.77 - 5.28 x10E6/uL [facility] Hemoglobin 11.1 11.1 - 15.9 g/dL [facility] Hematocrit 38.4 34.0 - 46.6 % [facility] MCV 67(L) 79 - 97 fL [facility] MCH 19.3(L) 26.6 - 33.0 pg [facility] MCHC 28.9(L) 31.5 - 35.7 g/dL [facility] RDW 18.8(H) 11.7 - 15.4 % [facility] Platelets 162 150 - 450 x10E3/uL [facility] Neutrophils Relative 59 Not Estab. % [facility] Lymphocytes Relative 31 Not Estab. % [facility] Monocytes 6 Not Estab. % [facility] Eosinophils Relative 2 Not Estab. % [facility] Basophils Relative 1 Not Estab. % [facility] Neutrophils Absolute 3.3 1.4 - 7.0 x10E3/uL [facility] Lymphocytes Absolute 1.7 0.7 - 3.1 x10E3/uL [facility] Monocytes Absolute 0.3 0.1 - 0.9 x10E3/uL [facility] Eosinophils Absolute 0.1 0.0 - 0.4 x10E3/uL [facility] Basophils Absolute 0.0 0.0 - 0.2 x10E3/uL [facility] Immature Granulocytes 1 Not Estab. % [facility] Immature Grans (Absolute) 0.0 0.0 - 0.1 x10E3/uL [facility] Blood (Blood, Venous) 06/07/2024 11:53 AM EST 06/07/2024 us Barry Reyes MD LAB BLOOD ORDERABLES Final Re sult [facility] [address] [place] [address] documented in this encounter Visit Diagnoses Diagnosis Chronic kidney disease, stage 2 (mild) Anemia in chronic kidney disease Iron deficiency anemia, not otherwise specified documented in this encounter Care Teams Logistics Lead Relationship Specialty [place] [address] [place] [address] PCP - General Internal Medicine 10/28/22 documented as of this encounter
--- OUTSIDE RECORDS SUMMARY | 2024-06-15 13:13 | XMS_ITS | Encounter Summary ---
Author Organization [facility] Address [address] [place] [address] Phone Care Team Providers Care Service Architect Name Role Phone Sahra Son MD Primary Care Provider + Encounter Details Date Type Department Care Team (Late Contact Info) Description 08/09/2023 Documentation Only [facility] [address] [place] [address] India Davalos [address] [place] [address] Social History Tobacco Use Types [...] [facility] [address] [place] [address] Juan Jose Li MD [address] [place] [address] [place] [address] documented as of this encounter Visit Diagnoses Not on filedocumented in this encounter Care Teams Service Architect Relationship Specialty Start Date End Date Sahra Son MD [address] [phone] PCP - General Internal Medicine 10/28/22 documented as of this encounter
--- OUTSIDE RECORDS SUMMARY | 2024-06-15 13:13 | XMS_ITS | Encounter Summary ---
Author Organization [facility] Address [address] [place] [address] Phone Care Team Providers Care Exhibit Artist Name Role Phone Sahra Son MD Primary Care Provider + Encounter Details Date Type Department Care Team ([facility] Contact Info) Description 07/03/2021 Documentation Only [facility] [address] [place] [address] Juan Jose Li MD [address] [place] [address] [place] [address] Social History Tobacco Use Types [...] [facility] [address] [place] [address] JuanJ ose Li MD [address] [place] [address] [place] [address] documented as of this encounter Visit Diagnoses Not on filedocumented in this encounter Care Teams Exhibit Artist Relationship Specialty [place] [address] [place] [address] PCP - General Internal Medicine 10/28/22 documented as of this encounter
--- OUTSIDE RECORDS SUMMARY | 2024-06-15 13:13 | XMS_ITS | Encounter Summary ---
Author Organization [facility] Address [address] [place] [address] Phone Care Team Providers Care Bus Steward Name Role Phone Sahra Son MD Primary Care Provider + Encounter Details Date Type Department Care Team (Late Contact Info) Description 01/29/2023 Documentation Only [facility] [address] [place] [address] India Davalos [address] [place] [address] Social History Tobacco Use Types [...] [facility] [address] [place] [address] Juan Jose Li MD [address] [place] [address] [place] [address] documented as of this encounter Visit Diagnoses Not on filedocumented in this encounter Care Teams Bus Steward Relationship Specialty Start Date End Date Sahra Son MD [address] [phone] PCP - General Internal Medicine 10/28/22 documented as of this encounter
--- OUTSIDE RECORDS SUMMARY | 2024-06-15 13:13 | XMS_ITS | Encounter Summary ---
Author Organization [facility] Address [address] [place] [address] Phone Care Team Providers Care Roast Master Name Role Phone Sahra Son MD Primary Care Provider + Encounter Details Date Type Department Care Team (Late Contact Info) Description 01/29/2023 Documentation Only [facility] [address] [place] [address] India Davalos [address] [place] [address] Social History Tobacco Use Types [...] [facility] [address] [place] [address] Juan Jose Li MD [address] [place] [address] [place] [address] documented as of this encounter Visit Diagnoses Not on filedocumented in this encounter Care Teams Roast Master Relationship Specialty Start Date End Date Sahra Son MD [address] [phone] PCP - General Internal Medicine 10/28/22 documented as of this encounter
--- OUTSIDE RECORDS SUMMARY | 2024-06-15 13:13 | XMS_ITS | Encounter Summary ---
Author Organization [facility] Address [address] [place] [address] Phone Care Team Providers Care Finance Accounting Internship Name Role Phone Sahra Son MD Primary Care Provider + Encounter Details Date Type Department Care Team (Late Contact Info) Description 10/30/2022 Documentation Only [facility] [address] [place] [address] India Davalos [address] [place] [address] Social History Tobacco Use Types [...] [facility] [address] [place] [address] Juan Jose Li MD [address] [place] [address] [place] [address] documented as of this encounter Visit Diagnoses Not on filedocumented in this encounter Care Teams Finance Accounting Internship Relationship Specialty Start Date End Date Sahra Son MD [address] [phone] PCP - General Internal Medicine 10/28/22 documented as of this encounter
--- OUTSIDE RECORDS SUMMARY | 2024-06-15 13:13 | XMS_ITS | Encounter Summary ---
Author Organization [facility] Address [address] [place] [address] Phone Care Team Providers Care Engineering Specialist Name Role Phone Sahra Son MD Primary Care Provider + Encounter Details Date Type Department Care Team (Late Contact Info) Description 07/16/2023 Documentation Only [facility] [address] [place] [address] India Davalos [address] [place] [address] Social History Tobacco Use Types [...] [facility] [address] [place] [address] Juan Jose Li MD [address] [place] [address] [place] [address] documented as of this encounter Visit Diagnoses Not on filedocumented in this encounter Care Teams Engineering Specialist Relationship Specialty Start Date End Date Sahra Son MD [address] [phone] PCP - General Internal Medicine 10/28/22 documented as of this encounter
--- OUTSIDE RECORDS SUMMARY | 2024-06-15 13:13 | XMS_ITS | Encounter Summary ---
Author Organization [facility] Address [address] [place] [address] Phone Care Team Providers Care Machines Technician Name Role Phone Sahra Son MD Primary Care Provider + Encounter Details Date Type Department Care Team (Late Contact Info) Description 03/31/2024 Orders Only [facility] [address] [place] [place] [address] India Davalos [address] [place] [address] Chronic kidney disease, stage 2 [...] Visit [facility] [address] [place] [place] [address] Juan Jose Li MD [address] [place] [address] [place] [address] documented as of this encounter Visit Diagnoses Diagnosis Chronic kidney disease, stage 2 (mild) Anemia in chronic kidney disease Iron deficiency anemia, not otherwise specified documented in this encounter Care Teams Machines Technician Relationship Specialty Start Date End Date Sahra Son MD [address] [place] [address] PCP - General Internal Medicine 10/28/22 documented as of this encounter
--- OUTSIDE RECORDS SUMMARY | 2024-06-15 13:13 | XMS_ITS | Clinical Summary ---
Author Organization [facility], Address [address] [place] [address] [place] [address] Phone Care Team Providers Care Nurse Discharge Planner Name Role Phone Sahra Son MD Primary Care Provider + Allergies Active Allergy Reactions Criticality Noted Date Comments Codeine 12/26/2012 Ferumoxytol Shortness of breath,Itching,Other (see comments) High 02/27/2022 Bones hurt Iodinated Contrast Media 07/06/2022 Penicillins 12/26/2012 Other Shellfish Allergy 12/26/2012 Tramadol 07/06/2022 Trazodone 03/08/2018 Iron Sucrose 02/29/2024 [place]oughing [place] [facility] [place] Cymbalta [address] capsule TK 2 CS PO QAM 12/28/19 20 Active LORazepam (ATIVAN) 1 MG tablet TK 1 T PO BID 12/24/19 20 Active meclizine (ANTIVERT) 25 MG tablet TK 1 T PO TID PRN 12/24/19 20 Active montelukast (SINGULAIR) 10 MG tablet TK 1 T PO QD IN THE DARCY 11/19/19 20 Active Creon 21306-54965 units capsule TK ONE C PO TID [...] [facility] [address] [place] [address] India Davalos Anemia in chronic kidney disease; Other iron deficiency anemia; Chronic kidney disease, stage 2 (mild) 06/05/2024 Telephone [facility] [address] [place] [address] Stephanie Azul, poultry farm laborer reminder 05/26/2024 Orders Only [facility] [address] [place] [address] India Davalos Chronic kidney disease, stage 2 (mild); Anemia in chronic kidney disease; Iron deficiency anemia, not otherwise specified 05/05/2024 Telephone [facility] [address] [place] [address] India Davalos 05/05/2024 Orders Only [facility] [address] [place] [address] Kaylyn Vargas Anemia in chronic kidney disease; Iron deficiency anemia, not otherwise specified; Chronic kidney disease, stage 2 (mild) 05/01/2024 Telephone [facility] [address] [place] [address] Olesya Han 05/01/2024 Telephone [facility] [address] [place] [address] Olesya Han 04/28/2024 Orders Only [facility] [address] [place] [address] India Davalos Chronic kidney disease, stage 2 (mild); Anemia in chronic kidney disease; Iron deficiency anemia, not otherwise specified 04/07/2024 Orders Only [facility] [address] [place] [place] [address] Kaylyn Vargas Anemia in chronic kidney disease; Iron deficiency anemia, not otherwise specified; Chronic kidney disease, stage 2 (mild) 04/05/2024 Documentation Only [facility] [address] [place] [address] AnoopIndia henry 04/05/2024 Documentation Only [facility] [address] [place] [address] India Davalos 04/03/2024 Documentation Only [facility] [address] [place] [place] [address] Kaylyn Vargas 03/31/2024 Orders Only [facility] [address] [place] [address] India Davalos Chronic kidney disease, stage 2 (mild); Anemia in chronic kidney disease; Iron deficiency anemia, not otherwise specified 03/23/2024 Documentation Only [facility] [address] [place] [address] India Davalos 03/22/2024 3:00 PM EST Office Visit [facility] [address] [place] [address] Arlene Alston PA Chronic kidney disease, stage 2 (mild) (Primary Dx); Essential (primary) hypertension; Type 2 diabetes mellitus, not otherwise specified (HCC) 03/22/2024 Documentation Only [facility] [address] [place] [address] India Davalos from Last 3 Months Immunizations [...] Visit [facility], [address] [place] [address] Juan Jose Li MD [address] [place] [address] Health Maintenance Due Date Last Done Comments [...] TIBC 262 250 - 450 ug/dL [facility] UIBC 205 118 - 369 ug/dL [facility] Iron 57 27 - 139 ug/dL [facility] Iron Saturation (TSat) 22 15 - 55 % [facility] Blood (Blood, Venous) 06/07/2024 11:53 AM EST 06/07/2024 us Barry Reyes MD LAB BLOOD ORDERABLES Final Re sult [facility] [address] [place] [address] * (ABNORMAL) CBC and Differential (06/07/2024 11:53 AM EST) Only the most recent of3 resultswithin the time period is included. WBC 5.5 3.4 - 10.8 x10E3/uL [facility] RBC 5.76(H) 3.77 - 5.28 x10E6/uL [facility] Hemoglobin 11.1 11.1 - 15.9 g/dL [facility] Hematocrit 38.4 34.0 - 46.6 % [facility] MCV 67(L) 79 - 97 fL [facility] MCH 19.3(L) 26.6 - 33.0 pg [facility] MCHC 28.9(L) 31.5 - 35.7 g/dL [facility] RDW 18.8(H) 11.7 - 15.4 % [facility] Platelets 162 150 - 450 x10E3/uL [facility] Neutrophils Relative 59 Not Estab. % [facility] Lymphocytes Relative 31 Not Estab. % [facility] Monocytes 6 Not Estab. % [facility] Eosinophils Relative 2 Not Estab. % [facility] Basophils Relative 1 Not Estab. % [facility] Neutrophils Absolute 3.3 1.4 - 7.0 x10E3/uL [facility] Lymphocytes Absolute 1.7 0.7 - 3.1 x10E3/uL [facility] Monocytes Absolute 0.3 0.1 - 0.9 x10E3/uL [facility] Eosinophils Absolute 0.1 0.0 - 0.4 x10E3/uL [facility] Basophils Absolute 0.0 0.0 - 0.2 x10E3/uL [facility] Immature Granulocytes 1 Not Estab. % [facility] Immature Grans (Absolute) 0.0 0.0 - 0.1 x10E3/uL [facility] Blood (Blood, Venous) 06/07/2024 11:53 AM EST 06/07/2024 Barry Reyes MD LAB BLOOD ORDERABLES Final Re sult [facility] [address] [place] [phone] * Ferritin (06/07/2024 11:53 AM EST) Only the most recent of3 resultswithin the time period is included. Ferritin 102 15 - 150 ng/mL [facility] Blood (Blood, Venous) 06/07/2024 11:53 AM EST 06/07/2024 Barry Reyes MD LAB BLOOD ORDERABLES Final Re sult [facility] [address] [place] [address] * (ABNORMAL) Renal Function Panel (06/07/2024 11:53 AM EST) Only the most recent of3 resultswithin the time period is included. Glucose 168(H) 70 - 99 mg/dL [facility] BUN 17 8 - 27 mg/dL [facility] Creatinine 1.09(H) 0.57 - 1.00 mg/dL [facility] eGFR CKD-EPI CR 2020 57(L) >59 mL/min/1.7 3 [facility] BUN/Creatinine Ratio 16 12 - 28 [facility] Sodium 137 134 - 144 mmol/L [facility] Potassium 4.8 3.5 - 5.2 mmol/L [facility] Chloride 99 96 - 106 mmol/L [facility] Bicarbonate (CO2) 23 20 - 29 mmol/L [facility] Calcium 9.0 8.7 - 10.3 mg/dL [facility] Albumin 4.2 3.9 - 4.9 g/dL [facility] Phosphorus 4.4(H) 3.0 - 4.3 mg/dL [facility] Blood (Blood, Venous) 06/07/2024 11:53 AM EST 06/07/2024 us Barry Reyes MD LAB BLOOD ORDERABLES Final Re sult [facility] [address] [place] [address] * (ABNORMAL) Hemoglobin A1c (06/08/2023 8:36 AM EST) Hemoglobin A1C 7.2(H) (4.0-5.6) % [facility] Comment: MONITORING: In known diabetic patients, hemoglobin A1c targets should be discussed with health care provider. DIAGNOSTIC USE: ??The [place] [employer] (ADA) and the World Health [...] Supplement 1 Testing performed or reported by [facility], a Service of [facility], [address] [place] [address] Luis A Bailey MD, [facility]# [id number] Blood (Blood, Venous) 06/08/2023 8:36 AM EST 06/08/2023 8:38 AM EST Arlene CARTER LAB BLOOD ORDERABLES Final Re sult [facility] from Last 3 Months or Most Recently Relevant to Health Maintenance Insurance [employer] ([id number]) [place] [id number] Care Teams Nurse Discharge Planner Relationship Specialty Start Date End Date Sahra Son MD [address] [place] [id number] PCP - General Internal Medicine 10/28/22
--- OUTSIDE RECORDS SUMMARY | 2024-06-15 13:13 | XMS_ITS | Encounter Summary ---
Author Organization [facility] Address [address] [place] [address] Phone Care Team Providers Care Pastry Assistant Name Role Phone Sahra Son MD Primary Care Provider + Encounter Details Date Type Department Care Team (Late Contact Info) Description 07/16/2023 Documentation Only [facility] [address] [place] [address] India Davalos [address] [place] [address] Social History Tobacco Use Types [...] [facility] [address] [place] [address] Juan Jose Li MD [address] [place] [address] [place] [address] documented as of this encounter Visit Diagnoses Not on filedocumented in this encounter Care Teams Pastry Assistant Relationship Specialty Start Date End Date Sahra Son MD [address] [id number] PCP - General Internal Medicine 10/28/22 documented as of this encounter
--- OUTSIDE RECORDS SUMMARY | 2024-06-15 13:13 | XMS_ITS | Encounter Summary ---
Author Organization [facility] Address [address] [place] [address] Phone Care Team Providers Care Scientific Illustrator Name Role Phone Sahra Son MD Primary Care Provider + Encounter Details Date Type Department Care Team ([facility] Contact Info) Description 02/01/2023 Documentation Only [facility] [address] [place] [address] India Davalos [address] [place] [address] Social History Tobacco Use Types [...] [facility] [address] [place] [address] Juan Jose Li MD [address] [place] [address] [place] [address] documented as of this encounter Visit Diagnoses Not on filedocumented in this encounter Care Teams Scientific Illustrator Relationship Specialty Start Date End Date Sahra Son MD [address] [phone] PCP - General Internal Medicine 10/28/22 documented as of this encounter
--- OUTSIDE RECORDS SUMMARY | 2024-06-15 13:13 | XMS_ITS | Encounter Summary ---
Author Organization [facility] Address [address] [place] [address] Phone Care Team Providers Care Grading Clerk Name Role Phone Sahra Son MD Primary Care Provider + Encounter Details Date Type Department Care Team (Late Contact Info) Description 08/27/2021 Documentation Only [facility] [address] [place] [address] India Davalos [address] [place] [address] Social History Tobacco Use [...] [facility] [address] [place] [address] Juan Jose Li MD [address] [place] [address] [place] [address] documented as of this encounter Visit Diagnoses Not on filedocumented in this encounter Care Teams Grading Clerk Relationship Specialty Start Date End Date Sahra Son MD [address] [id number] PCP - General Internal Medicine 10/28/22 documented as of this encounter
--- OUTSIDE RECORDS SUMMARY | 2024-06-15 13:13 | XMS_ITS | Encounter Summary ---
Author Organization [facility] Address [address] [place] [address] Phone Care Team Providers Care Department Mgr Name Role Phone Sahra Son MD Primary Care Provider + Encounter Details Date Type Department Care Team ([facility] Contact Info) Description 05/01/2024 Telephone [facility] [address] [place] [address] Olesya Han [address] [place] [address] Social History Tobacco Use [...] Upcoming Encounters Date Type Department Care Team ([facility] Contact Info) Description 07/04/2024 2:30 PM EST Office Visit [facility] [address] [place] [address] Juan Jose Li MD [address] [place] [address] [place] [address] documented as of this encounter Visit Diagnoses Not on filedocumented in this encounter Care Teams Department Mgr Relationship Specialty Start Date End Date Sahra Son MD [address] [id number] PCP - General Internal Medicine 10/28/22 documented as of this encounter
--- OUTSIDE RECORDS SUMMARY | 2024-06-15 13:14 | XMS_ITS | Encounter Summary ---
Author Organization [facility] Address [address] [place] [address] Phone Care Team Providers Care Lifestyle Director Name Role Phone Sahra Son MD Primary Care Provider + Encounter Details Date Type Department Care Team (Late Contact Info) Description 04/28/2024 Orders Only [facility] [address] [place] [address] India Davalos [address] [place] [address] Chronic kidney disease, stage 2 [...] Visit [facility] [address] [place] [address] Juan Jose Li MD [address] [place] [address] [place] [address] documented as of this encounter [...] Glucose 153(H) 70 - 99 mg/dL [facility] BUN 17 8 - 27 mg/dL [facility] Creatinine 0.98 0.57 - 1.00 mg/dL [facility] eGFR CKD-EPI CR 2020 64 >59 mL/min/1.7 3 [facility] BUN/Creatinine Ratio 17 12 - 28 [facility] Sodium 142 134 - 144 mmol/L [facility] Potassium 5.0 3.5 - 5.2 mmol/L [facility] Chloride 106 96 - 106 mmol/L [facility] Bicarbonate (CO2) 23 20 - 29 mmol/L [facility] Calcium 8.9 8.7 - 10.3 mg/dL [facility] Albumin 3.9 3.9 - 4.9 g/dL [facility] Phosphorus 3.9 3.0 - 4.3 mg/dL [facility] Blood (Blood, Venous) 05/05/2024 9:18 AM EST 05/05/2024 Barry Reyes MD LAB BLOOD ORDERABLES Final Re sult Performing Organization Address City/[facility]/ZIP Co de Phone Number [facility] [address] [place] [address] * (ABNORMAL) Ferritin (05/05/2024 9:18 AM EST) Ferritin 282(H) 15 - 150 ng/mL [facility] Blood (Blood, Venous) 05/05/2024 9:18 AM EST 05/05/2024 Barry Reyes MD LAB BLOOD ORDERABLES Final Re sult Performing Organization Address City/[facility] de Phone Number [facility] [address] [place] [address] * Iron Panel (Fe, TIBC, TSAT) (05/05/2024 9:18 AM EST) TIBC 277 250 - 450 ug/dL [facility] UIBC 210 118 - 369 ug/dL [facility] Iron 67 27 - 139 ug/dL [facility] Iron Saturation (TSat) 24 15 - 55 % [facility] Blood (Blood, Venous) 05/05/2024 9:18 AM EST 05/05/2024 Barry Reyes MD LAB BLOOD ORDERABLES Final Re sult Performing Organization Address City/[facility]/ZIP Co de Phone Number [facility] [address] [place] [address] * (ABNORMAL) CBC and Differential (05/05/2024 9:18 AM EST) [facility] WBC 5.6 3.4 - 10.8 x10E3/uL [facility] RBC 5.33(H) 3.77 - 5.28 x10E6/uL [facility] Hemoglobin 10.2(L) 11.1 - 15.9 g/dL [facility] Hematocrit 35.0 34.0 - 46.6 % [facility] MCV 66(L) 79 - 97 fL [facility] MCH 19.1(L) 26.6 - 33.0 pg [facility] MCHC 29.1(L) 31.5 - 35.7 g/dL [facility] RDW 20.1(H) 11.7 - 15.4 % [facility] Platelets 163 150 - 450 x10E3/uL [facility] Neutrophils Relative 64 Not Estab. % [facility] Lymphocytes Relative 26 Not Estab. % [facility] Monocytes 6 Not Estab. % [facility] Eosinophils Relative 3 Not Estab. % [facility] Basophils Relative 1 Not Estab. % [facility] Neutrophils Absolute 3.6 1.4 - 7.0 x10E3/uL [facility] Lymphocytes Absolute 1.5 0.7 - 3.1 x10E3/uL [facility] Monocytes Absolute 0.3 0.1 - 0.9 x10E3/uL [facility] Eosinophils Absolute 0.2 0.0 - 0.4 x10E3/uL [facility] Basophils Absolute 0.0 0.0 - 0.2 x10E3/uL [facility] Immature Granulocytes 0 Not Estab. % [facility] Immature Grans (Absolute) 0.0 0.0 - 0.1 x10E3/uL [facility] Blood (Blood, Venous) 05/05/2024 9:18 AM EST 05/05/2024 us Barry Reyes MD LAB BLOOD ORDERABLES Final Re sult [facility] [address] [place] [address] documented in this encounter Visit Diagnoses Diagnosis Chronic kidney disease, stage 2 (mild) Anemia in chronic kidney disease Iron deficiency anemia, not otherwise specified documented in this encounter Care Teams Lifestyle Director Relationship Specialty [place] [address] [place] [id number] PCP - General Internal Medicine 10/28/22 documented as of this encounter
--- OUTSIDE RECORDS SUMMARY | 2024-06-15 13:14 | XMS_ITS | Encounter Summary ---
Author Organization [facility] Address [address] [place] [address] Care Team Providers Care Reclamation Supervisor Name Role Phone Vinnie Santizo Primary Care Provider Sahra Keith MD Primary Care Provider Marko Fernandez MD Unavailable [phone] Encounter Details Date Type Department Care Team Description 08/14/2022 SCAN Medical Records [address] [place] [id number] Abstract, Provider Social History Tobacco Use Types Packs/Day Years Used Date Smoking Tobacco: Every Day Cigarettes 1 1 Smokeless Tobacco: Never Alcohol Use Standard Drinks/Week Comments No 0 (1 standard drink = 0.6 oz pur e alcohol) Sex Assigned at Date Recorded Not on file documented as of this encounter Plan of Treatment Not on file documented as of this encounter Procedures Procedure Name Priority Date/Time Associated Diagnosis Comments OUTSIDE LAB Routine 08/14/2022 documented in this encounter Results * OUTSIDE LAB (08/14/2022) Provider Abstract LAB documented in this encounter Visit Diagnoses Not on filedocumented in this encounter Care Teams Reclamation Supervisor Relationship Specialty Start Date End Date Vinnie Santizo PCP - General Internal Medicine 03/30/17 08/30/22 Sahra Son MD PCP - General Internal Medicine 08/31/22 Marko Spaulding MD Specialist Cardiology 09/23/22 documented as of this encounter
--- OUTSIDE RECORDS SUMMARY | 2024-06-15 13:14 | XMS_ITS | Encounter Summary ---
Author Organization [facility] Address [address] [place] [address] Care Team Providers Care School Laboratory Technician Name Role Phone Vinnie Santizo Primary Care Provider Obinna Merrill MD Primary Care Provider [facility] Tammie, Pcp Primary Care Provider Vinnie Rodriguez Primary Care Provider Sahra Keith MD Primary Care Provider [facility] Marko Spaulding MD Unavailable [phone] Encounter Details Date Type Department Care Team Description 09/09/1998 [facility] [address] [address] Gwen Jean UNSPECIFIED CHEST PAIN Social History Tobacco Use Types Packs/Day Years Used Date Smoking Tobacco: Never Assessed Sex Assigned at Date Recorded Not on file documented as of this encounter Plan of Treatment Not on file documented as of this encounter Visit Diagnoses Diagnosis Chest pain, unspecified documented in this encounter Care Teams School Laboratory Technician Relationship Specialty Start Date End Date Vinnie Santizo PCP - General 08/04/03 12/12/12 Obinna Mao MD PCP - General Internal Medicine 12/13/1207/23 [facility], Pcp PCP - General Internal Medicine 07/24/13 03/29/17 Vinnie Santizo PCP - General Internal Medicine 03/30/17 08/30/22 Sahra Son MD PCP - General Internal Medicine 08/31/22 Marko Spaulding MD Specialist Cardiology 09/23/22 documented as of this encounter
--- OUTSIDE RECORDS SUMMARY | 2024-06-15 13:14 | XMS_ITS | Encounter Summary ---
Author Organization [facility] Address [address] [place] [address] Care Team Providers Care Vp Care Management Name Role Phone Vinnie Santizo Primary Care Provider Sahra Keith MD Primary Care Provider Marko Fernandez MD Unavailable [phone] Encounter Details Date Type Department Care Team Description 05/28/2022 SCAN Medical Records [address] [place] [id number] Abstract, Provider Social History Tobacco Use Types [...] Name Priority Date/Time Associated Diagnosis Comments OUTSIDE PLAIN FILM Routine 05/28/2022 documented in this encounter Results * OUTSIDE PLAIN FILM (05/28/2022) Provider Abstract RADIOLOGY documented in this encounter Visit Diagnoses Not on filedocumented in this encounter Care Teams Vp Care Management Relationship Specialty Start Date End Date Vinnie Santizo PCP - General Internal Medicine 03/30/17 08/30/22 Sahra Son MD PCP - General Internal Medicine 08/31/22 Marko Spaulding MD Specialist Cardiology 09/23/22 documented as of this encounter
--- OUTSIDE RECORDS SUMMARY | 2024-06-15 13:14 | XMS_ITS | Clinical Summary ---
Author Organization [facility] Address [address] [place] [address] Care Team Providers Care Termite Control Service Representative Name Role Phone Sahra Son MD Primary Care Provider Marko Fernandez MD Unavailable [phone] Allergies Active Allergy Reactions Severity Noted Date Comments Codeine 12/26/2012 Penicillins 12/26/2012 Shellfish Allergy 12/26/2012 Trazodone 03/08/2018 Medications Medication Sig Dispensed Refills Start Date End Date Status Meclizine HCl 25 MG TABS Take 1 Tab by mouth every 8 hours. 0 Active lorazepam (ATIVAN) 2 MG tablet Take 2 mg by mouth 3 times daily. 0 Active duloxetine (CYMBALTA) 60 MG capsule Take 60 mg by mouth daily. 0 Active quetiapine (SEROQUEL) 100 MG tablet Take 1 Tab by mouth 2 times daily. 60 Tab 0 12/26/2012 Active montelukast (SINGULAIR) 10 MG tabletIndications:Sys temic lupus erythematosus, unspecified SLE type, unspecified organ involvement status (HCC),Pulmonary nodule,Tobacco abuse,Asthma, unspecified asthma severity, unspecified whether complicated, unspecified whether persistent,Multiple environmental allergies,Cigarette smoker Take 1 Tab by mouth at bedtime for 30 days. 30 Tab 0 08/17/2017 Active Ipratropium-Albuterol (COMBIVENT RESPIMAT) 20-100 MCG/ACT Aero SolnIndications:Syste yolis lupus erythematosus, unspecified SLE type, unspecified organ involvement status (HCC),Pulmonary nodule,Tobacco abuse,Asthma, unspecified asthma severity, unspecified whether complicated, unspecified whether persistent,Multiple environmental allergies,Cigarette smoker Inhale 20 mcg into the lungs 4 times daily as needed (Dyspnea/Wheezin g) for up to 30 days. This is a rescue medication. No exceed more than 6 puffs daily. 1 Inhaler 11 08/17/2017 Active budesonide (PULMICORT) 0.5 MG/2ML nebulizer solutionIndications:S ystemic lupus erythematosus, unspecified SLE type, unspecified organ involvement status (HCC),Pulmonary nodule,Tobacco abuse,Asthma, unspecified asthma severity, unspecified whether complicated, unspecified whether persistent,Multiple environmental allergies,Cigarette smoker USE 2 ML VIA NEBULIZER TWICE DAILY 180 Ampule 0 10/26/2017 Active atorvastatin (LIPITOR) 40 MG tablet Take 1 Tablet by mouth daily. 0 08/11/2022 Active Insulin Glargine (Lantus SoloStar) 100 UNIT/ML Solution Pen-injector INJECT 10 UNITS UNDER THE SKIN ONCE A DAY 0 07/22/2022 Active NIFEdipine (PROCARDIA XL) 30 MG 24 hr tablet 0 10/08/2022 Active Creon 20597-47703 units CAPSULE ENTERIC COATED PARTICLES TAKE 1 CAPSULE BY MOUTH BEFORE MEALS 0 09/20/2022 Active rabeprazole (ACIPHEX) 20 MG tablet Take 1 Tablet by mouth daily. 0 08/07/2022 Active Deep Sea Nasal [place] 0.65 % nasal spray INSTILL 2 DROPS IN EACH NOSTRIL NEEDED EVERY 2 HOURS FOR 30 DAYS 0 09/06/2022 Active warfarin (COUMADIN) 2.5 MG tablet TAKE 1 TO 2 TABLETS BY MOUTH DAILY DIRECTED BY NURSE. 0 08/21/2022 Active ropinirole (REQUIP) 0.25 MG tablet 0 09/03/2022 Active Tradjenta 5 MG Tab TAKE 1 TABLET BY MOUTH EVERY DAY FOR DIABETES 0 10/20/2022 Active clonidine (CATAPRES) 0.1 MG tablet TAKE 1 TABLET BY MOUTH TWICE DAILY 0 10/20/2022 Active nitroGLYCERIN (NITRODUR) 0.4 MG/HR Place 1 Patch onto the skin daily. Apply for no more than 12 hours in any 24 hour period. 0 Active clopidogrel (PLAVIX) 75 MG tablet Take 1 Tablet by mouth daily. 0 Active nystatin (MYCOSTATIN) cream Apply topically 2 times daily. 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 Osteoporosis Fibromyalgia Myelofibrosis Meningioma Coronary artery disease Overview: [place] Gout Asthma Seizures Lupus Depression Hypercoagulable state Neurogenic bladder Overview: Indwelling flowers catheter Supplemental oxygen dependent COPD (chronic obstructive pulmonary dise ase) Family History Medical History Relation Name Comments ABLATION FOR AN ARRHYTHMIA Brother HEART DISEASE Father Hypertension Father [place] Father Diabetes Mother MALIGNANT NEOPLASM Mother Relation Name Status Comments Brother Alive Father Mother Social History Tobacco Use Types Packs/Day Years Used Date Smoking Tobacco: Every Day Cigarettes 1 1 Smokeless Tobacco: Never Tobacco Cessation:Ready to Q uit: Not Asked; Counseling Given: Not Answered Alcohol Use Standard Drinks/Week Comments No 0 (1 standard drink = 0.6 oz pur e alcohol) Sex Assigned at Date Recorded Not on file Last Filed Vital Signs Vital Sign Reading Time Taken Comments Blood Pressure 122/82 12/04/2022 8:48 AM EDT Pulse 94 12/04/2022 8:48 AM EDT Temperature 35.9 ??C (96.7 ??F) 12/04/2022 8:48 AM ED T Respiratory Rate 18 12/04/2022 8:48 AM EDT Oxygen Saturation 97% 12/04/2022 8:48 AM EDT Inhaled Oxygen Concentration - - Weight 100 kg (220 lb 6.4 oz) 12/04/2022 8:48 AM EDT Height 170.2 cm (5' 7 ) 12/04/2022 8:48 AM EDT Body Mass Index 34.52 12/04/2022 8:48 AM EDT Plan of Treatment Health Maintenance Due Date Last Done Comments Covid-19 Vaccine (#1) 05/09/1960 DEPRESSION SCREEN 1971 DIABETES/HEART DISEASE: CRISTELA AL CHOLESTEROL (LDL) 11/07/1977 DIABETES: ANNUAL FOOT EXAM 11/07/1977 DIABETES: ANNUAL URINE PROTE IN TEST (MICROALBUMIN) 11/07/1977 DIABETES: BLOOD SUGAR CONTRO L TEST (HGBA1C) 11/07/1977 HEPATITIS C SCREENING 11/07/1977 PNEUMOCOCCAL VACCINE FOR HIG H RISK PATIENTS (#1) 11/07/1978 CERVICAL CANCER SCREENING 11/07/1980 MAMMOGRAM 1999 DIABETES: ANNUAL EYE EXAM 03/18/20062004, 01/27/2005, 01/13/2005, Additional history exists COLON CANCER SCREENING 11/07/2009 SHINGLES VACCINE (1 of 2) 11/07/2009 TOBACCO CHECK/ADVISE 02/15/2020 02/14/2018, 02/04/2018, 11/26/2017, Additional history exists DTAP/TDAP/TD (2 - Td or Tdap) 01/15/2021 01/15/2011 INFLUENZA (#1) 2024 BMI CHECK/ADVISE 05/17/2024 03/08/2018, 05/2017, 09/08/2017, Additional history exists Care Teams Termite Control Service Representative Relationship Specialty Start Date End Date Sahra Son MD PCP - General Internal Medicine 08/31/22 Marko Spaulding MD Specialist Cardiology 09/23/22
--- OUTSIDE RECORDS SUMMARY | 2024-06-15 13:14 | XMS_ITS | Encounter Summary ---
Author Organization [facility] [employer] [facility] Address [address] [place] [address] Care Team Providers Care Sail Finisher Hand Name Role Phone Vinnie Santizo Primary Care Provider Sahra Keith MD Primary Care Provider Marko Fernandez MD Unavailable [phone] Encounter Details Date Type Department Care Team Description 07/30/2022 Telephone Order Dispatcher Report Medical Records [address] [place] [id number] Sahra Son MD Social History Tobacco Use Types Packs/Day Years [...] on filedocumented in this encounter Care Teams Sail Finisher Hand Relationship Specialty Start Date End Date Vinnie Santizo PCP - General Internal Medicine 03/30/17 08/30/22 Sahra Son MD PCP - General Internal Medicine 08/31/22 Marko Spaulding MD Specialist Cardiology 09/23/22 documented as of this encounter
--- OUTSIDE RECORDS SUMMARY | 2024-06-15 13:14 | XMS_ITS | Clinical Summary ---
Author Organization [facility] Address [address] [place] [address] Care Team Providers Care Director Of Manufacturing Operations Name Role Phone Geovani Natalie Carmelo ESPARZA Primary Care Provider [phone] Allergies Active Allergy Reactions Criticality Noted Date [...] 1 10/04/2016 Active ergocalciferol (VITAMIN D2) capsule 57364 units TK ONE C PO TWICE A [...] times a day. 0 04/27/2022 Active pancrelipase, Nrg-Ktzh-Xnyb, (Creon) 73118-20352 units CPEP TK ONE C PO TID [...] age to complete this topic Care Teams Director Of Manufacturing Operations Relationship Specialty Start Date End Date Natalie Olivo APRN [address] [place] [address] PCP - General Chef 04/30/22
--- OUTSIDE RECORDS SUMMARY | 2024-06-15 13:14 | XMS_ITS | Encounter Summary ---
Author Organization [facility] [employer] [facility] Address [address] [place] [address] Care Team Providers Care Detention Worker Name Role Phone Vinnie Santizo Primary Care Provider Sahra Keith MD Primary Care Provider Marko Fernandez MD Unavailable [phone] Encounter Details Date Type Department Care Team Description 04/15/2017 Orders Only Medical Records [address] [place] [address] Shanti Torres MD [address] [place] [address] Social History Tobacco Use Types Packs/Day Years Used Date Smoking Tobacco: Every Day Cigarettes 1 1 Alcohol Use Standard Drinks/Week Comments No 0 (1 standard drink = 0.6 oz pur e alcohol) Sex Assigned at Date Recorded Not on file documented as of this encounter Plan of Treatment Not on file documented as of this encounter Procedures Procedure Name Priority Date/Time Associated Diagnosis Comments OUTSIDE ECHO Routine 04/13/2017 documented in this encounter Results * OUTSIDE ECHO (04/13/2017) Shanti Torres MD CARDIOLOGY documented in this encounter Visit Diagnoses Not on filedocumented in this encounter Care Teams Detention Worker Relationship Specialty Start Date End Date Vinnie Santizo PCP - General Internal Medicine 03/30/17 08/30/22 Sahra Son MD PCP - General Internal Medicine 08/31/22 Marko Spaulding MD Specialist Cardiology 09/23/22 documented as of this encounter
--- OUTSIDE RECORDS SUMMARY | 2024-06-15 13:14 | XMS_ITS | Encounter Summary ---
Author Organization [facility] Address [address] [place] [address] Care Team Providers Care Earthmoving Plant Operator Name Role Phone Sahra Son MD Primary Care Provider Paula vailable Marko Spaulding MD Unavailable [phone] Encounter Details Date Type Department Care Team Description 05/06/2023 Meter Setter Report Medical Records [address] [place] [address] Sahra Son MD Social History Tobacco Use [...] on filedocumented in this encounter Care Teams Earthmoving Plant Operator Relationship Specialty Start Date End Date Sahra Son MD PCP - General Internal Medicine 08/31/22 Marko Spaulding MD Specialist Cardiology 09/23/22 documented as of this encounter
--- OUTSIDE RECORDS SUMMARY | 2024-06-15 13:14 | XMS_ITS | Encounter Summary ---
Author Organization [facility] Address [address] [place] [address] Care Team Providers Care Junior Systems Administrator Name Role Phone Sahra Son MD Primary Care Provider Paula vailable Marko Spaulding MD Unavailable [phone] Encounter Details Date Type Department Care Team Description 09/15/2022 SCAN Medical Records [address] [place] [address] Abstract, Provider Social History Tobacco Use Types [...] suspected to have Coronavirus/COVID-19? No / Unsure 09/18/2022 1:45 PM EDT documented as of this encounter Plan of Treatment Not on file documented as of this encounter Procedures Procedure Name Priority Date/Time Associated Diagnosis Comments OUTSIDE LAB Routine 09/15/2022 documented in this encounter Results * OUTSIDE LAB (09/15/2022) Provider Abstract LAB documented in this encounter Visit Diagnoses Not on filedocumented in this encounter Care Teams Junior Systems Administrator Relationship Specialty Start Date End Date Sahra Son MD PCP - General Internal Medicine 08/31/22 Marko Spaulding MD Specialist Cardiology 09/23/22 documented as of this encounter
--- OUTSIDE RECORDS SUMMARY | 2024-06-15 13:14 | XMS_ITS | Encounter Summary ---
Author Organization [employer] [facility] [facility] Address [address] [place] [address] Care Team Providers Care Evp Chief Exploration Officer Name Role Phone Tammie, Pcp Primary Care Provider Vinnie Rodriguez Primary Care Provider Sahra Keith MD Primary Care Provider Paula Marko Ferreira MD Unavailable [phone] Encounter Details Date Type Department Care Team Description 11/13/2016 SCAN Medical Records [address] [place] [address] Aniceto Michelle Social History Tobacco Use Types Packs/Day Years [...] Name Priority Date/Time Associated Diagnosis Comments OUTSIDE VASCULAR STUDY Routine 11/13/2016 documented in this encounter Results * OUTSIDE VASCULAR STUDY (11/13/2016) Provider Abstract CARDIOLOGY documented in this encounter Visit Diagnoses Not on filedocumented in this encounter Care Teams Evp Chief Exploration Officer Relationship Specialty Start Date End Date Tammie, Pcp PCP - General Internal Medicine 07/24/13 03/29/17 Vinnie Santizo PCP - General Internal Medicine 03/30/17 08/30/22 Sahra Son MD PCP - General Internal Medicine 08/31/22 Marko Spaulding MD Specialist Cardiology 5/10/23 documented as of this encounter
--- OUTSIDE RECORDS SUMMARY | 2024-06-15 13:14 | XMS_ITS | Encounter Summary ---
Author Organization [facility] Address [address] [place] [address] Care Team Providers Care Box Car Loader Name Role Phone Sahra Son MD Primary Care Provider Paula Marko Ferreira MD Unavailable [phone] Reason for Visit * Reason Onset Date Comments External Sleep Study Request 12/08/2022 Sle ep Study Encounter Details Date Type Department Care Team Description 12/08/2022 Telephone Pulmonology - [place] [address] [facility] [address] [place] [phone] Betty Morillo MD [address] [facility] [address] [place] [phone] External Sleep Study Request (Sleep Study/) Social History Tobacco Use Types Packs/Day Years [...] suspected to have Coronavirus/COVID-19? No / Unsure 12/04/2022 8:30 AM EDT documented as of this encounter Miscellaneous Notes * Telephone Encounter - Chey Blum - 12/08/2022 11:05 AM EDT CCA, No Auth Required Order, notes, and benefits faxed to Sleep Medicine Services. They will contact patient to schedule,notification letter sent. documented in this encounter Plan of Treatment Not on file documented as of this encounter Visit Diagnoses Not on filedocumented in this encounter Care Teams Box Car Loader Relationship Specialty Start Date End Date Sahra Son MD PCP - General Internal Medicine 08/31/22 Marko Spaulding MD Specialist Cardiology 09/23/22 documented as of this encounter
--- OUTSIDE RECORDS SUMMARY | 2024-06-15 13:14 | XMS_ITS | Encounter Summary ---
Author Organization [facility] [employer] [facility] Address [address] [place] [address] Care Team Providers Care Car Deliverer Name Role Phone Sahra Son MD Primary Care Provider Paula vailable Marko Spaulding MD Unavailable [phone] Encounter Details Date Type Department Care Team Description 11/16/2022 Orders Only Pulmonology - [place] [address] [facility] [address] [place] [phone] Betty Morillo MD [address] [facility] [address] [place] [phone] Social History Tobacco Use Types Packs/Day Years [...] suspected to have Coronavirus/COVID-19? No / Unsure 10/28/2022 9:28 AM EDT documented as of this encounter Plan of Treatment Not on file documented as of this encounter Visit Diagnoses Not on filedocumented in this encounter Care Teams Car Deliverer Relationship Specialty Start Date End Date Sahra Son MD PCP - General Internal Medicine 08/31/22 Marko Spaulding MD Specialist Cardiology 09/23/22 documented as of this encounter
--- OUTSIDE RECORDS SUMMARY | 2024-06-15 13:14 | XMS_ITS | Encounter Summary ---
Author Organization [employer] [facility] Address [address] [place] [address] Care Team Providers Care Veterinary Technician Name Role Phone Vinnie Santizo Primary Care Provider Sahra Keith MD Primary Care Provider Marko Fernandez MD Unavailable [phone] Encounter Details Date Type Department Care Team Description 11/11/2017 SCAN Medical Records [address] [place] [address] Chela Solis MD Social History Tobacco Use Types Packs/Day [...] Name Priority Date/Time Associated Diagnosis Comments OUTSIDE MRI/MRA Routine 11/11/2017 documented in this encounter Results * OUTSIDE MRI/MRA (11/11/2017) Provider Abstract RADIOLOGY documented in this encounter Visit Diagnoses Not on filedocumented in this encounter Care Teams Veterinary Technician Relationship Specialty Start Date End Date Vinnie Santizo PCP - General Internal Medicine 03/30/17 08/30/22 Sahra Son MD PCP - General Internal Medicine 08/31/22 Marko Spaulding MD Specialist Cardiology 09/23/22 documented as of this encounter
--- OUTSIDE RECORDS SUMMARY | 2024-06-15 13:14 | XMS_ITS | Encounter Summary ---
Author Organization [facility] [employer] [facility] Address [address] [place] [address] Care Team Providers Care Javascript Ui Developer Name Role Phone Vinnie Santizo Primary Care Provider Sahra Keith MD Primary Care Provider Paula Marko Ferreira MD Unavailable [phone] Encounter Details Date Type Department Care Team Description 11/10/2017 SCAN Medical Records [address] [place] [address] Vish Cruz MD Social History Tobacco Use Types Packs/Day [...] Date/Time Associated Diagnosis Comments OUTSIDE ECHO Routine 11/10/2017 documented in this encounter Results * OUTSIDE ECHO (11/10/2017) Provider Abstract CARDIOLOGY documented in this encounter Visit Diagnoses Not on filedocumented in this encounter Care Teams Javascript Ui Developer Relationship Specialty Start Date End Date Vinnie Santizo PCP - General Internal Medicine 03/30/17 08/30/22 Sahra Son MD PCP - General Internal Medicine 08/31/22 Marko Spaulding MD Specialist Cardiology 09/23/22 documented as of this encounter
--- OUTSIDE RECORDS SUMMARY | 2024-06-15 13:14 | XMS_ITS | Encounter Summary ---
Author Organization [facility] [employer] [facility] Address [address] [place] [address] Care Team Providers Care Project/Production Manager Imaging Name Role Phone Vinnie Santizo Primary Care Provider Sahra Keith MD Primary Care Provider Marko Fernandez MD Unavailable [phone] Reason for Visit * Reason Comments E-prescribe Rx Request Encounter Details Date Type Department Care Team Description 11/26/2017 Refill Pulmonology - [place] [address] [facility] [address] [place] [phone] Eneida Acuña NP E-prescribe Rx Request Social History Tobacco Use Types Packs/Day Years Used Date Smoking Tobacco: Every Day Cigarettes 1 1 Alcohol Use Standard Drinks/Week Comments No 0 (1 standard drink = 0.6 oz pur e alcohol) Sex Assigned at Date Recorded Not on file documented as of this encounter Miscellaneous Notes * Telephone Encounter - Antonella Arredondo M.A. - 11/26/2017 11:56 AM EDT Please review. vf * Telephone Encounter - Charley Hector - 11/26/2017 9:09 AM EDT Patient would like script to be: E-PRESCRIBED/FAXED TO PHARMACY WHEN WAS THE PATIENT'S LAST APPOINTMENT WITH THE PRESCRIBING PROVIDER? 09/08/17 Does patient have an upcoming appointment? Yes (THE MEDICATION REQUESTED IS ON THE MED LIST ABOVE) All of the medications requested were on the CURRENT MEDS list Did you check the Pharmacy information above?: YES Patient wants: 90 -day supply Is this a mail order prescription request ? YES Patients current insurance carrier is: Payor: [employer] [facility] [employer] MCR / Plan: [facility] / Product Type: HMO [id number] documented in this encounter Plan of Treatment Not on file documented as of this encounter Visit Diagnoses Diagnosis Systemic lupus erythematosus, unspecified SLE type, unspecified organ involvement status (HCC) Pulmonary nodule Solitary pulmonary nodule Tobacco abuse Tobacco use disorder Asthma, unspecified asthma severity, unspecified whether complicated, unspecified whether persistent Multiple environmental allergies Cigarette smoker Tobacco use disorder documented in this encounter Care Teams Project/Production Manager Imaging Relationship Specialty Start Date End Date Vinnie Santizo PCP - General Internal Medicine 03/30/17 08/30/22 Sahra Son MD PCP - General Internal Medicine 08/31/22 Marko Spaulding MD Specialist Cardiology 09/23/22 documented as of this encounter
--- OUTSIDE RECORDS SUMMARY | 2024-06-15 13:14 | XMS_ITS | Encounter Summary ---
Author Organization [facility] Address [address] [place] [address] Care Team Providers Care Strategic Marketing Manager Name Role Phone Sahra Son MD Primary Care Provider Paula vailable Marko Spaulding MD Unavailable [phone] Encounter Details Date Type Department Care Team Description 10/04/2022 Release of Information Medical Records [address] [place] [address] [facility] Social History Tobacco Use Types Packs/Day Years [...] on filedocumented in this encounter Care Teams Strategic Marketing Manager Relationship Specialty Start Date End Date Sahra Son MD PCP - General Internal Medicine 08/31/22 Marko Spaulding MD Specialist Cardiology 09/23/22 documented as of this encounter
--- OUTSIDE RECORDS SUMMARY | 2024-06-15 13:14 | XMS_ITS | Encounter Summary ---
Author Organization [employer] [facility] Address [address] [place] [address] Care Team Providers Care Escalator Installer Name Role Phone Tammie, Pcp Primary Care Provider Vinnie Rodriguez Primary Care Provider Sahra Keith MD Primary Care Provider Paula vailable Marko Spaulding MD Unavailable [phone] Encounter Details Date Type Department Care Team Description 02/12/2015 SCAN Medical Records [address] [place] [address] Abstract, Provider Social History Tobacco Use Types [...] Associated Diagnosis Comments OUTSIDE VASCULAR STUDY Routine 02/12/2015 documented in this encounter Results * OUTSIDE VASCULAR STUDY (02/12/2015) Provider Abstract CARDIOLOGY documented in this encounter Visit Diagnoses Not on filedocumented in this encounter Care Teams Escalator Installer Relationship Specialty Start Date End Date Tammie, Pcp PCP - General Internal Medicine 07/24/13 03/29/17 Vinnie Santizo PCP - General Internal Medicine 03/30/17 08/30/22 Sahra Son MD PCP - General Internal Medicine 08/31/22 Marko Spaulding MD Specialist Cardiology 09/23/22 documented as of this encounter
--- OUTSIDE RECORDS SUMMARY | 2024-06-15 13:14 | XMS_ITS | Encounter Summary ---
Author Organization [facility] Address [address] [place] [address] Care Team Providers Care Lead Burner Name Role Phone Vinnie Santizo Primary Care Provider Sahra Keith MD Primary Care Provider Marko Fernandez MD Unavailable [phone] Encounter Details Date Type Department Care Team Description 11/23/2018 SCAN Medical Records [address] [place] [address] Arnoldo Eden PA-C Social History Tobacco Use Types Packs/Day Years [...] Date/Time Associated Diagnosis Comments OUTSIDE LAB Routine 11/23/2018 OUTSIDE LAB Routine 11/23/2018 documented in this encounter Results * OUTSIDE LAB (11/23/2018) Provider Abstract LAB * OUTSIDE LAB (11/23/2018) Provider Abstract LAB documented in this encounter Visit Diagnoses Not on filedocumented in this encounter Care Teams Lead Burner Relationship Specialty Start Date End Date Vinnie Santizo PCP - General Internal Medicine 03/30/17 08/30/22 Sahra Son MD PCP - General Internal Medicine 08/31/22 Marko Spaulding MD Specialist Cardiology 09/23/22 documented as of this encounter
== END 2024-06-15 10:39 | disposition home or self-care (01) ==
PROVIDERS: PCP Internal Medicine; Visit Provider Internal Medicine
DX: Z79.01 Long term (current) use of anticoagulants (principal)

== ENCOUNTER 2024-06-20 09:04 | Outpatient (AMB) | payer OTHER, SELFPAY ==
[2024-06-20 09:12] LABS: Prothrombin Time Whole Bld POC 40.2 sec (11.1-13.5); ~PT, ~INR - Anti Coag Clinic 3.4 (0.9-1.1)
--- NOTE | 2024-06-20 09:16 | MHC.OFFVISCO ---
Intake Intake Visit Reasons: Anticoagulation Allergies codeine [Codeine] Allergy (Severe, Verified 06/20/24 09:05) DIFFICULTY BREATHING Penicillins Allergy (Severe, Verified 06/20/24 09:05) RASH penicillin V Allergy (Intermediate, Verified 06/20/24 09:05) RASH tramadol [Ultram] Allergy (Unknown, Verified 06/20/24 09:05) hallucinations Shellfish Allergy (Severe, Uncoded 06/20/24 09:05) THROAT SWELLING Contrast Allergy PreMed Pack Allergy (Unknown, Uncoded 06/20/24 09:05) TREAT WITH BENADRYL ferrlecit Adverse Reaction (Intermediate, Uncoded 06/20/24 09:05) Rash Medication List - Last Reconciled 06/20/24 by Tonia Angeles RN atorvastatin 80 mg PO DAILY blood sugar diagnostic As directed clonidine HCl 0.1 mg PO BID dapagliflozin propanediol (Farxiga) 10 mg PO DAILY diphenhydramine HCl (Banophen) mg PO duloxetine 120 mg PO QAM epoetin marj (Procrit) 2,000 units subcut 3XW fluticasone propion-salmeterol 100-50 mcg/dose ea inhalation gabapentin 100 mg PO TID hydrocortisone 2.5% appl topical insulin glargine (Lantus Solostar U-100 Insulin) 10 units subcut QPM ipratropium-albuterol 0.5 mg-3 mg(2.5 mg base)/3 mL mL inhalation ipratropium-albuterol 20-100 mcg/actuation 1 puff PO QID lancets As directed lancets As directed latanoprost 0.005% drps ophthalmic (eye) linagliptin (Tradjenta) 5 mg PO DAILY vrdlxl-bvnudbzg-lmgbpmx 24,000-76,000 -120,000 unit 1 cap PO TID qqsgsn-opedyass-locwxnd 24,000-76,000 -120,000 unit (Creon) 1 cap PO TID loratadine 10 mg PO DAILY PRN lorazepam 1 mg PO BID meclizine mg PO montelukast 10 mg PO BEDTIME nifedipine ER 30 mg PO DAILY ondansetron 4 mg PO Q8H PRN polyethylene glycol 3350 grams PO [procrit pt states she receives it weekly ] quetiapine 200 mg PO BEDTIME rabeprazole 20 mg PO DAILY ropinirole 0.25 mg PO BEDTIME sodium chloride 0.65% (Deep Sea Nasal) sprays intranasal Q2H PRN triamcinolone acetonide 0.1% appl topical warfarin 2.5 mg See Protocol PO DAILY Nursing Note INR 3.4?out of therapeutic range of 2-3 Pt started Valproic acid for seizures 1 week ago which can raise the INR. She states she stopped it 2 days ago due to headache, drooling and nausea. She will call the MD today to get an alternative seizure med and then will call [facility] to notify of the new med. Medications and supplements reviewed Patient status: well Medications or supplements: no change other than above mentioned Diet: usual diet Denies any signs and symptoms of bleeding or clotting or unusual bruising Bleeding, bruising, clotting discussed Nutritional guidance given: to have a serving or two of greens over the next 2 days Dose: 3.75mg daily F/U INR Date : 1 week?? Patient verbalizing understanding of instructions with read back given. 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
--- OUTSIDE RECORDS SUMMARY | 2024-06-20 09:26 | XMS_ITS | Encounter Summary ---
Author Organization [facility] Address [address] [place] [address] Phone Care Team Providers Care Centrifugal Wax Molder Name Role Phone Sahra Son MD Primary Care Provider + Encounter Details Date Type Department Care Team (Late Contact Info) Description 03/03/2024 Orders Only [facility] [address] [place] [address] India Davalos [address] [place] [address] Chronic kidney disease, stage 2 [...] Visit [facility] [address] [place] [address] Juan Jose Li MD [address] [place] [address] Dr. [place] [address] documented as of this encounter [...] Glucose 152(H) 70 - 99 mg/dL [facility] BUN 16 8 - 27 mg/dL [facility] Creatinine 0.98 0.57 - 1.00 mg/dL [facility] eGFR CKD-EPI CR 2020 64 >59 mL/min/1.7 3 [facility] BUN/Creatinine Ratio 16 12 - 28 [facility] Sodium 137 134 - 144 mmol/L [facility] Potassium 4.8 3.5 - 5.2 mmol/L [facility] Chloride 101 96 - 106 mmol/L [facility] Bicarbonate (CO2) 22 20 - 29 mmol/L [facility] Calcium 8.8 8.7 - 10.3 mg/dL [facility] Albumin 4.0 3.9 - 4.9 g/dL [facility] Phosphorus 4.0 3.0 - 4.3 mg/dL [facility] Blood (Blood, Venous) 03/24/2024 10:37 AM EST 03/24/2024 Barry Reyes MD LAB BLOOD ORDERABLES Final Re sult Performing Organization Address City/[facility]/ZIP Co de Phone Number [facility] [address] [place] [address] * Ferritin (03/24/2024 10:37 AM EST) Ferritin 37 15 - 150 ng/mL [facility] Blood (Blood, Venous) 03/24/2024 10:37 AM EST 03/24/2024 Barry Reyes MD LAB BLOOD ORDERABLES Final Re sult Performing Organization Address [facility] de Phone Number [facility] [address] [place] [address] * Iron Panel (Fe, TIBC, TSAT) (03/24/2024 10:37 AM EST) TIBC 293 250 - 450 ug/dL [facility] UIBC 247 118 - 369 ug/dL [facility] Iron 46 27 - 139 ug/dL [facility] Iron Saturation (TSat) 16 15 - 55 % [facility] Blood (Blood, Venous) 03/24/2024 10:37 AM EST 03/24/2024 Barry Reyes MD LAB BLOOD ORDERABLES Final Re sult Performing Organization Address City/[facility]/ZIP Co de Phone Number [facility] [address] [place] [address] * (ABNORMAL) CBC and Differential (03/24/2024 10:37 AM EST) [facility] Signature WBC 6.0 3.4 - 10.8 x10E3/uL [facility] RBC 5.21 3.77 - 5.28 x10E6/uL [facility] Hemoglobin 10.0(L) 11.1 - 15.9 g/dL [facility] Hematocrit 35.3 34.0 - 46.6 % [facility] MCV 68(L) 79 - 97 fL [facility] MCH 19.2(L) 26.6 - 33.0 pg [facility] MCHC 28.3(L) 31.5 - 35.7 g/dL [facility] RDW 19.4(H) 11.7 - 15.4 % [facility] Platelets 186 150 - 450 x10E3/uL [facility] Neutrophils Relative 65 Not Estab. % [facility] Lymphocytes Relative 26 Not Estab. % [facility] Monocytes 6 Not Estab. % [facility] Eosinophils Relative 2 Not Estab. % [facility] Basophils Relative 1 Not Estab. % [facility] Neutrophils Absolute 3.9 1.4 - 7.0 x10E3/uL [facility] Lymphocytes Absolute 1.5 0.7 - 3.1 x10E3/uL [facility] Monocytes Absolute 0.3 0.1 - 0.9 x10E3/uL [facility] Eosinophils Absolute 0.1 0.0 - 0.4 x10E3/uL [facility] Basophils Absolute 0.0 0.0 - 0.2 x10E3/uL [facility] Immature Granulocytes 0 Not Estab. % [facility] Immature Grans (Absolute) 0.0 0.0 - 0.1 x10E3/uL [facility] Blood (Blood, Venous) 03/24/2024 10:37 AM EST 03/24/2024 us Barry Reyes MD LAB BLOOD ORDERABLES Final Re sult [facility] [address] [place] [address] documented in this encounter Visit Diagnoses Diagnosis Chronic kidney disease, stage 2 (mild) Anemia in chronic kidney disease Iron deficiency anemia, not otherwise specified documented in this encounter Care Teams Centrifugal Wax Molder Relationship Specialty Start Date End Date Sahra Son MD [address] [place] [address] PCP - General Internal Medicine 10/28/22 documented as of this encounter
--- OUTSIDE RECORDS SUMMARY | 2024-06-20 09:26 | XMS_ITS | Encounter Summary ---
Author Organization [facility] Address [address] [place] [address] Phone Care Team Providers Care Solar Photovoltaic Systems Engineer Name Role Phone Sahra Sno MD Primary Care Provider + Encounter Details Date Type Department Care Team ([facility] Contact Info) Description 09/18/2022 Documentation Only [facility] [address] [place] [address] India Davalos [address] [place] [address] Social History Tobacco Use Types [...] [facility] [address] [place] [address] Juan Jose Li MD [address] [place] [address] [place] [address] documented as of this encounter Visit Diagnoses Not on filedocumented in this encounter Care Teams Solar Photovoltaic Systems Engineer Relationship Specialty Start Date End Date Sahra Son MD [address] [id number] PCP - General Internal Medicine 10/28/22 documented as of this encounter
--- OUTSIDE RECORDS SUMMARY | 2024-06-20 09:26 | XMS_ITS | Encounter Summary ---
Author Organization [employer] [facility] Address [address] [place] [address] Care Team Providers Care Acid Condenser Name Role Phone Sahra Son MD Primary Care Provider Paula daryilaMarko Perales MD Unavailable [phone] Reason for Visit * Reason Onset Date Comments Prior Authorization 09/01/2022 CT CHEST Encounter Details Date Type Department Care Team Description 09/01/2022 Telephone Pulmonology - [place] [address] [place] [phone] Betty Morillo MD [address] [place] [phone] Prior Authorization (CT CHEST) Social History Tobacco [...] Ref#: Barbara Gann on 09/09 @ 11:31 [id number] * Telephone Encounter - Dilcia Hannon - 09/01/2022 1:20 PM EDT [facility] - Auth Pending (7-14 days to process) Auth request, clinicals and Rad report faxed to [facility]. [id number] documented in this encounter Plan of Treatment Not on file documented as of this encounter Visit Diagnoses Not on filedocumented in this encounter Care Teams Acid Condenser Relationship Specialty Start Date End Date Sahra Son MD PCP - General Internal Medicine 08/31/22 Marko Spaulding MD Specialist Cardiology 09/23/22 documented as of this encounter
--- OUTSIDE RECORDS SUMMARY | 2024-06-20 09:26 | XMS_ITS | Encounter Summary ---
Author Organization [facility] Address [address] [place] [address] Phone Care Team Providers Care Technical Adjuster Name Role Phone Sahra Son MD Primary Care Provider + Encounter Details Date Type Department Care Team (Late Contact Info) Description 06/16/2022 Documentation Only [facility] [address] [place] [address] India Davalos [address] [place] [address] Social History Tobacco Use Types [...] [facility] [address] [place] [address] Juan Jose Li MD [address] [place] [address] [place] [address] documented as of this encounter Visit Diagnoses Not on filedocumented in this encounter Care Teams Technical Adjuster Relationship Specialty Start Date End Date Sahra Son MD [address] [id number] PCP - General Internal Medicine 10/28/22 documented as of this encounter
--- OUTSIDE RECORDS SUMMARY | 2024-06-20 09:26 | XMS_ITS | Encounter Summary ---
Author Organization [facility] Address [address] [place] [address] Phone Care Team Providers Care Preparation Room Worker Name Role Phone Sahra Son MD Primary Care Provider + Encounter Details Date Type Department Care Team (Late Contact Info) Description 09/28/2022 Documentation Only [facility] [address] [place] [address] India Davalos [address] [place] [address] Social History Tobacco Use Types [...] [facility] [address] [place] [address] Juan Jose Li MD [address] [place] [address] [place] [address] documented as of this encounter Visit Diagnoses Not on filedocumented in this encounter Care Teams Preparation Room Worker Relationship Specialty Start Date End Date Sahra Son MD [address] [phone] PCP - General Internal Medicine 10/28/22 documented as of this encounter
--- OUTSIDE RECORDS SUMMARY | 2024-06-20 09:26 | XMS_ITS | Encounter Summary ---
Author Organization [facility] Address [address] [place] [address] Phone Care Team Providers Care Grader Operator Name Role Phone Sahra Son MD Primary Care Provider + Reason for Visit * Reason Onset Date Comments lab reminder 06/05/2024 Encounter Details Date Type Department Care Team (Late st Contact Info) Description 06/05/2024 Telephone [facility] [address] [place] [phone] Stephanie Azul, LAURITA [address] [place] [address] [place] [phone] lab reminder Social History Tobacco Use Types [...] PM EST Received message from Lexi at [facility] infusion (policy cancellation clerk). Lexi reports that pt no showed on 06/01/24. Her next appt is 06/09/24. Pt last had labs drawn on 06/05/24. I left message on Jennifer's phone to get labs drawn by 06/07/24. documented in this encounter Plan of Treatment Upcoming Encounters Date Type Department Care Team (Late st Contact Info) Description 07/04/2024 2:30 PM EST Office Visit [facility], [address] [place] [phone] Juan Jose Li MD [address] [place] [address] [place] [phone] documented as of this encounter Visit Diagnoses Not on filedocumented in this encounter Care Teams Grader Operator Relationship Specialty Start Date End Date Sahra Son MD [address] [id number] PCP - General Internal Medicine 10/28/22 documented as of this encounter
--- OUTSIDE RECORDS SUMMARY | 2024-06-20 09:26 | XMS_ITS | Encounter Summary ---
Author Organization [facility] Address [address] [place] [address] Phone Care Team Providers Care Automobile Body Repair Chief Name Role Phone Sahra Son MD Primary Care Provider + Encounter Details Date Type Department Care Team (Late Contact Info) Description 09/28/2022 Documentation Only [facility] [address] [place] [address] India Davalos [address] [place] [address] Social History Tobacco Use Types [...] [facility] [address] [place] [address] Juan Jose Li MD [address] [place] [address] [place] [address] documented as of this encounter Visit Diagnoses Not on filedocumented in this encounter Care Teams Automobile Body Repair Chief Relationship Specialty Start Date End Date Sahra Son MD [address] [phone] PCP - General Internal Medicine 10/28/22 documented as of this encounter
--- OUTSIDE RECORDS SUMMARY | 2024-06-20 09:26 | XMS_ITS | Encounter Summary ---
Author Organization [facility] Address [address] [place] [address] Phone Care Team Providers Care Hot Stick Man Name Role Phone Sahra Son MD Primary Care Provider + Encounter Details Date Type Department Care Team (Late Contact Info) Description 09/28/2022 Documentation Only [facility] [address] [place] [address] India Davalos [address] [place] [address] Social History Tobacco Use Types [...] [facility] [address] [place] [address] Juan Jose Li MD [address] [place] [address] [place] [address] documented as of this encounter Visit Diagnoses Not on filedocumented in this encounter Care Teams Hot Stick Man Relationship Specialty Start Date End Date Sahra Son MD [address] [phone] PCP - General Internal Medicine 10/28/22 documented as of this encounter
--- OUTSIDE RECORDS SUMMARY | 2024-06-20 09:26 | XMS_ITS | Encounter Summary ---
Author Organization [facility] Address [address] [place] [address] Phone Care Team Providers Care Ecotherapist Name Role Phone Sahra Son MD Primary Care Provider + Encounter Details Date Type Department Care Team (Late Contact Info) Description 06/17/2022 Documentation Only [facility] [address] [place] [address] India Davalos [address] [place] [address] Social History Tobacco Use Types [...] Visit [facility] [address] [place] [address] Jua nJose Li MD [address] [place] [address] [place] [address] documented as of this encounter Visit Diagnoses Not on filedocumented in this encounter Care Teams Ecotherapist Relationship Specialty Start Date End Date Sahra Son MD [address] [phone] PCP - General Internal Medicine 10/28/22 documented as of this encounter
--- OUTSIDE RECORDS SUMMARY | 2024-06-20 09:26 | XMS_ITS | Encounter Summary ---
Author Organization [facility] Address [address] [place] [address] Phone Care Team Providers Care Senior Commissary Agent Name Role Phone Sahra Son MD Primary Care Provider + Encounter Details Date Type Department Care Team (Late Contact Info) Description 06/18/2021 Documentation Only [facility] [address] [place] [address] India Davalos [address] [place] [address] Social History Tobacco Use Types [...] [facility] [address] [place] [address] Juan Jose Li MD [address] [place] [address] [place] [address] documented as of this encounter Visit Diagnoses Not on filedocumented in this encounter Care Teams Senior Commissary Agent Relationship Specialty Start Date End Date Sahra Son MD [address] [phone] PCP - General Internal Medicine 10/28/22 documented as of this encounter
--- OUTSIDE RECORDS SUMMARY | 2024-06-20 09:26 | XMS_ITS | Encounter Summary ---
Author Organization [facility] Address [address] [place] [address] Phone Care Team Providers Care Sas Clinical Programmer Name Role Phone Sarha Son MD Primary Care Provider + Encounter Details Date Type Department Care Team (Late Contact Info) Description 09/28/2022 Documentation Only [facility] [address] [place] [address] India Davalos [address] [place] [address] Social History Tobacco Use Types [...] Visit [facility] [address] [place] [address] Juan Jose Li MD [address] [place] [address] [place] [address] documented as of this encounter Visit Diagnoses Not on filedocumented in this encounter Care Teams Sas Clinical Programmer Relationship Specialty Start Date End Date Sahra Son MD [address] [phone] PCP - General Internal Medicine 10/28/22 documented as of this encounter
--- OUTSIDE RECORDS SUMMARY | 2024-06-20 09:27 | XMS_ITS | Encounter Summary ---
Author Organization [facility] Address [address] [place] [address] Phone Care Team Providers Care Manager Academic Name Role Phone Sahra Son MD Primary Care Provider + Encounter Details Date Type Department Care Team (Late Contact Info) Description 03/23/2024 Documentation Only [facility] [address] [place] [address] India Davalos [address] [place] [address] Social History Tobacco Use Types [...] [facility] [address] [place] [address] Juan Jose Li MD [address] [place] [address] [place] [address] documented as of this encounter Visit Diagnoses Not on filedocumented in this encounter Care Teams Manager Academic Relationship Specialty Start Date End Date Sahra Son MD [address] [phone] PCP - General Internal Medicine 10/28/22 documented as of this encounter
--- OUTSIDE RECORDS SUMMARY | 2024-06-20 09:27 | XMS_ITS | Encounter Summary ---
Author Organization [facility] Address [address] [place] [address] Phone Care Team Providers Care Agriculture Mechanic Name Role Phone Sahra Son MD Primary Care Provider + Encounter Details Date Type Department Care Team (Late Contact Info) Description 06/22/2022 Documentation Only [facility] [address] [place] [address] India Davalos [address] [place] [address] Social History Tobacco Use Types [...] [facility] [address] [place] [address] Juan Jose Li MD [address] [place] [address] [place] [address] documented as of this encounter Visit Diagnoses Not on filedocumented in this encounter Care Teams Agriculture Mechanic Relationship Specialty Start Date End Date Sahra Son MD [address] [phone] PCP - General Internal Medicine 10/28/22 documented as of this encounter
--- OUTSIDE RECORDS SUMMARY | 2024-06-20 09:27 | XMS_ITS | Encounter Summary ---
Author Organization [facility] Address [address] [place] [address] Phone Care Team Providers Care Welder Pipe Making Name Role Phone Sahra Son MD Primary Care Provider + Encounter Details Date Type Department Care Team (Late Contact Info) Description 01/04/2024 Documentation Only [facility] [address] [place] [address] India Davalos [address] [place] [address] Social History Tobacco Use Types [...] Visit [facility] [address] [place] [address] Juan Jose Li MD [address] [place] [address] [place] [address] documented as of this encounter Visit Diagnoses Not on filedocumented in this encounter Care Teams Welder Pipe Making Relationship Specialty Start Date End Date Sahra Son MD [address] [id number] PCP - General Internal Medicine 10/28/22 documented as of this encounter
--- OUTSIDE RECORDS SUMMARY | 2024-06-20 09:27 | XMS_ITS | Encounter Summary ---
Author Organization [facility] Address [address] [place] [address] Phone Care Team Providers Care Independent Video Producer Name Role Phone Sahra Son MD Primary Care Provider + Encounter Details Date Type Department Care Team (Late Contact Info) Description 08/11/2022 Documentation Only [facility] [address] [place] [address] India Davalos [address] [place] [address] Social History Tobacco Use Types [...] [facility] [address] [place] [address] Juan Jose Li MD [address] [place] [address] [place] [address] documented as of this encounter Visit Diagnoses Not on filedocumented in this encounter Care Teams Independent Video Producer Relationship Specialty Start Date End Date Sahra Son MD [address] [phone] PCP - General Internal Medicine 10/28/22 documented as of this encounter
--- OUTSIDE RECORDS SUMMARY | 2024-06-20 09:27 | XMS_ITS | Encounter Summary ---
Author Organization [facility] Address [address] [place] [address] Phone Care Team Providers Care Collector Name Role Phone Sahra Son MD Primary Care Provider + Encounter Details Date Type Department Care Team (Late Contact Info) Description 11/11/2023 Documentation Only [facility] [address] [place] [address] Idnia Davalos [address] [place] [address] Social History Tobacco Use Types [...] [facility] [address] [place] [address] Juan Jose Li MD [address] [place] [address] [place] [address] documented as of this encounter Visit Diagnoses Not on filedocumented in this encounter Care Teams Collector Relationship Specialty Start Date End Date Sahra Son MD [address] [phone] PCP - General Internal Medicine 10/28/22 documented as of this encounter
--- OUTSIDE RECORDS SUMMARY | 2024-06-20 09:27 | XMS_ITS | Encounter Summary ---
Author Organization [facility] Address [address] [place] [address] Phone Care Team Providers Care Drywall Sprayer Name Role Phone Sahra Son MD Primary Care Provider + Encounter Details Date Type Department Care Team (Late Contact Info) Description 12/31/2023 Documentation Only [facility] [address] [place] [address] India Davalos [address] [place] [address] Social History Tobacco Use Types [...] [facility] [address] [place] [address] Juan Jose Li MD [address] [place] [address] [place] [address] documented as of this encounter Visit Diagnoses Not on filedocumented in this encounter Care Teams Drywall Sprayer Relationship Specialty Start Date End Date Sahra Son MD [address] [id number] PCP - General Internal Medicine 10/28/22 documented as of this encounter
--- OUTSIDE RECORDS SUMMARY | 2024-06-20 09:27 | XMS_ITS | Encounter Summary ---
Author Organization [facility] Address [address] [place] [address] Phone Care Team Providers Care Restoration Silversmith Name Role Phone Sahra Son MD Primary Care Provider + Encounter Details Date Type Department Care Team (Late Contact Info) Description 06/09/2024 Orders Only [facility] [address] [place] [address] India Davalos [address] [place] [address] Anemia in chronic kidney disease; [...] Visit [facility] [address] [place] [address] Juan Jose Li MD [address] [place] [address] documented as of this encounter Visit Diagnoses Diagnosis Anemia in chronic kidney disease Other iron deficiency anemia Chronic kidney disease, stage 2 (mild) documented in this encounter Care Teams Restoration Silversmith Relationship Specialty Start Date End Date Cherella, Sahra M, MD [address] [place] [address] PCP - General Internal Medicine 10/28/22 documented as of this encounter
--- OUTSIDE RECORDS SUMMARY | 2024-06-20 09:27 | XMS_ITS | Encounter Summary ---
Author Organization [facility] Address [address] [place] [address] Phone Care Team Providers Care Rat Poisoner Name Role Phone Sahra Son MD Primary Care Provider + Encounter Details Date Type Department Care Team (Late st Contact Info) Description 01/31/2024 Orders Only [facility] [address] [place] [address] Arlene Alston PA Chronic kidney disease, stage 2 (mild); Essential [...] Visit [facility] [address] [place] [address] Juan Jose Li MD [address] [place] [address] [place] [address] documented as of this encounter Visit Diagnoses Diagnosis Chronic kidney disease, stage 2 (mild) Essential (primary) hypertension Iron deficiency anemia, not otherwise specified Type 2 diabetes mellitus, not otherwise specified (HCC) Antiphospholipid syndrome (HCC) documented in this encounter Care Teams Rat Poisoner Relationship Specialty Start Date End Date Sahra Son MD [address] [place] [address] PCP - General Internal Medicine 10/28/22 documented as of this encounter
--- OUTSIDE RECORDS SUMMARY | 2024-06-20 09:27 | XMS_ITS | Encounter Summary ---
Author Organization [facility] Address [address] [place] [address] Phone Care Team Providers Care Information Specialist Name Role Phone Sahra Son MD Primary Care Provider + Encounter Details Date Type Department Care Team (Late Contact Info) Description 11/05/2023 Documentation Only [facility] [address] [place] [address] India Davalos [address] [place] [address] Social History Tobacco Use Types [...] [facility] [address] [place] [address] Juan Jose Li MD [address] [place] [address] [place] [address] documented as of this encounter Visit Diagnoses Not on filedocumented in this encounter Care Teams Information Specialist Relationship Specialty Start Date End Date Sahra Son MD [address] [phone] PCP - General Internal Medicine 10/28/22 documented as of this encounter
--- OUTSIDE RECORDS SUMMARY | 2024-06-20 09:27 | XMS_ITS | Encounter Summary ---
Author Organization [facility] Address [address] [place] [address] Phone Care Team Providers Care Provider Scribe Name Role Phone Sahra Son MD Primary Care Provider + Encounter Details Date Type Department Care Team ([facility] Contact Info) Description 04/08/2022 Documentation Only [facility] [address] [place] [address] India Davalos [address] [place] [address] Social History Tobacco Use Types [...] [facility] [address] [place] [address] Juan Jose Li MD [address] [place] [address] [place] [address] documented as of this encounter Visit Diagnoses Not on filedocumented in this encounter Care Teams Provider Scribe Relationship Specialty Start Date End Date Sahra Son MD [address] [id number] PCP - General Internal Medicine 10/28/22 documented as of this encounter
--- OUTSIDE RECORDS SUMMARY | 2024-06-20 09:27 | XMS_ITS | Encounter Summary ---
Author Organization [facility] Address [address] [place] [address] Phone Care Team Providers Care Vp Purchasing Name Role Phone Sahra Son MD Primary Care Provider + Encounter Details Date Type Department Care Team (Late Contact Info) Description 11/11/2023 Documentation Only [facility] [address] [place] [address] India Davalos [address] [place] [address] Social History Tobacco Use Types [...] Visit [facility] [address] [place] [address] Juan Jose Li MD [address] [place] [address] [place] [address] documented as of this encounter Visit Diagnoses Not on filedocumented in this encounter Care Teams Vp Purchasing Relationship Specialty Start Date End Date Sahra Son MD [address] [phone] PCP - General Internal Medicine 10/28/22 documented as of this encounter
--- OUTSIDE RECORDS SUMMARY | 2024-06-20 09:27 | XMS_ITS | Encounter Summary ---
Author Organization [facility] Address [address] [place] [address] Phone Care Team Providers Care Taxi Proprietor Name Role Phone Sahra Son MD Primary Care Provider + Encounter Details Date Type Department Care Team (Late Contact Info) Description 08/11/2022 Documentation Only [facility] [address] [place] [address] India Davalos [address] [place] [address] Social History Tobacco Use Types [...] Visit [facility] [address] [place] [address] Juan Jose Li MD [address] [place] [address] [place] [address] documented as of this encounter Visit Diagnoses Not on filedocumented in this encounter Care Teams Taxi Proprietor Relationship Specialty Start Date End Date Sahra Son MD [address] [phone] PCP - General Internal Medicine 10/28/22 documented as of this encounter
--- OUTSIDE RECORDS SUMMARY | 2024-06-20 09:27 | XMS_ITS | Encounter Summary ---
Author Organization [facility] Address [address] [place] [address] Phone Care Team Providers Care Lay Out Worker Name Role Phone Sahra Son MD Primary Care Provider + Encounter Details Date Type Department Care Team (Late Contact Info) Description 11/11/2023 Documentation Only [facility] [address] [place] [address] India Davalos [address] [place] [address] Social History Tobacco Use Types [...] [facility] [address] [place] [address] Juan Jose Li MD [address] [place] [address] [place] [address] documented as of this encounter Visit Diagnoses Not on filedocumented in this encounter Care Teams Lay Out Worker Relationship Specialty Start Date End Date Sahra Son MD [address] [phone] PCP - General Internal Medicine 10/28/22 documented as of this encounter
--- OUTSIDE RECORDS SUMMARY | 2024-06-20 09:27 | XMS_ITS | Encounter Summary ---
Author Organization [facility] Address [address] [place] [address] Phone Care Team Providers Care Magnet Maker Name Role Phone Sahra Son MD Primary Care Provider + Encounter Details Date Type Department Care Team ([facility] Contact Info) Description 12/23/2021 Documentation Only [facility] [address] [place] [address] Juan Jose Li MD [address] [place] [address] [place] [address] Social History Tobacco Use Types [...] [facility] [address] [place] [address] Juan Jose Li MD [address] [place] [address] [place] [address] documented as of this encounter Visit Diagnoses Not on filedocumented in this encounter Care Teams Magnet Maker Relationship Specialty [place] [address] [place] [id number] PCP - General Internal Medicine 10/28/22 documented as of this encounter
--- OUTSIDE RECORDS SUMMARY | 2024-06-20 09:27 | XMS_ITS | Encounter Summary ---
Author Organization [facility] Address [address] [place] [address] Phone Care Team Providers Care Film Producer Name Role Phone Sahra Son MD Primary Care Provider + Encounter Details Date Type Department Care Team ([facility] Contact Info) Description 04/14/2022 Documentation Only [facility] [address] [place] [address] India Davalos [address] [place] [address] Social History Tobacco Use Types [...] [facility] [address] [place] [address] Juan Jose Li MD [address] [place] [address] [place] [address] documented as of this encounter Visit Diagnoses Not on filedocumented in this encounter Care Teams Film Producer Relationship Specialty Start Date End Date Sahra Son MD [address] [phone] PCP - General Internal Medicine 10/28/22 documented as of this encounter
--- OUTSIDE RECORDS SUMMARY | 2024-06-20 09:27 | XMS_ITS | Encounter Summary ---
Author Organization [facility] Address [address] [place] [address] Phone Care Team Providers Care Tunnel Form Placing Supervisor Name Role Phone Sahra Son MD Primary Care Provider + Encounter Details Date Type Department Care Team (Late Contact Info) Description 03/22/2024 Documentation Only [facility] [address] [place] [address] India Davalos [address] [place] [address] Social History Tobacco Use Types [...] [facility] [address] [place] [address] Juan Jose Li MD [address] [place] [address] [place] [address] documented as of this encounter Visit Diagnoses Not on filedocumented in this encounter Care Teams Tunnel Form Placing Supervisor Relationship Specialty Start Date End Date Sahra Son MD [address] [phone] PCP - General Internal Medicine 10/28/22 documented as of this encounter
--- OUTSIDE RECORDS SUMMARY | 2024-06-20 09:27 | XMS_ITS | Encounter Summary ---
Author Organization [facility] Address [address] [place] [address] Phone Care Team Providers Care Nurse Licensed Practical Name Role Phone Sahra Son MD Primary Care Provider + Encounter Details Date Type Department Care Team (Late Contact Info) Description 11/11/2023 Documentation Only [facility] [address] [place] [address] India Davalos [address] [place] [address] Social History Tobacco Use Types [...] [facility] [address] [place] [address] Juan Jose Li MD [address] [place] [address] [place] [address] documented as of this encounter Visit Diagnoses Not on filedocumented in this encounter Care Teams Nurse Licensed Practical Relationship Specialty Start Date End Date Sahra Son MD [address] [phone] PCP - General Internal Medicine 10/28/22 documented as of this encounter
--- OUTSIDE RECORDS SUMMARY | 2024-06-20 09:27 | XMS_ITS | Encounter Summary ---
Author Organization [facility] Address [address] [place] [address] Phone Care Team Providers Care Sales Promotion Director Name Role Phone Sahra Son MD Primary Care Provider + Encounter Details Date Type Department Care Team (Late Contact Info) Description 06/30/2020 Orders Only [facility] [address] [place] [address] Carol Whelan 2[address] [place] [address] Iron deficiency anemia, not otherwise [...] Visit [facility] [address] [place] [address] Juan Jose Li MD [address] [facility] [place] [address] documented as of this encounter Visit Diagnoses Diagnosis Iron deficiency anemia, not otherwise specified Chronic kidney disease, Stage II (mild) documented in this encounter Care Teams Sales Promotion Director Relationship Specialty Start Date End Date Sahra Son MD 3550 [place] [address] PCP - General Internal Medicine 10/28/22 documented as of this encounter
--- OUTSIDE RECORDS SUMMARY | 2024-06-20 09:27 | XMS_ITS | Encounter Summary ---
Author Organization [facility] Address [address] [place] [address] Phone Care Team Providers Care Family Psychologist Name Role Phone Sahra Son MD Primary Care Provider + Encounter Details Date Type Department Care Team (Late Contact Info) Description 02/04/2024 Orders Only [facility] [address] [place] [address] India Davalos [address] [place] [address] Chronic kidney disease, stage 2 [...] Visit [facility] [address] [place] [address] Juan Jose Li MD [address] [place] [address] [place] [address] documented as of this encounter [...] Glucose 169(H) 70 - 99 mg/dL [facility] BUN 16 8 - 27 mg/dL [facility] Creatinine 1.00 0.57 - 1.00 mg/dL [facility] eGFR CKD-EPI CR 2020 63 >59 mL/min/1.7 3 [facility] BUN/Creatinine Ratio 16 12 - 28 [facility] Sodium 138 134 - 144 mmol/L [facility] Potassium 4.8 3.5 - 5.2 mmol/L [facility] Chloride 100 96 - 106 mmol/L [facility] Bicarbonate (CO2) 22 20 - 29 mmol/L [facility] Calcium 9.1 8.7 - 10.3 mg/dL [facility] Albumin 4.1 3.9 - 4.9 g/dL [facility] Phosphorus 4.2 3.0 - 4.3 mg/dL [facility] Blood (Blood, Venous) 02/22/2024 8:29 AM EDT 02/22/2024 Barry Reyes MD LAB BLOOD ORDERABLES Final Re sult Performing Organization Address City/[facility]/ZIP Co de Phone Number [facility] [address] [place] [address] * Ferritin (02/22/2024 8:29 AM EDT) Ferritin 47 15 - 150 ng/mL [facility] Blood (Blood, Venous) 02/22/2024 8:29 AM EDT 02/22/2024 Barry Reyes MD LAB BLOOD ORDERABLES Final Re sult Performing Organization Address [facility] de Phone Number [facility] [address] [place] [address] * (ABNORMAL) Iron Panel (Fe, TIBC, TSAT) (02/22/2024 8:29 AM EDT) Iron 39 27 - 139 ug/dL [facility] TIBC 310 250 - 450 ug/dL [facility] UIBC 271 118 - 369 ug/dL [facility] Iron Saturation (TSat) 13(L) 15 - 55 % [facility] Blood (Blood, Venous) 02/22/2024 8:29 AM EDT 02/22/2024 Barry Reyes MD LAB BLOOD ORDERABLES Final Re sult Performing Organization Address [facility]/ZIP Co de Phone Number [facility] [address] [place] [address] * (ABNORMAL) CBC and Differential (02/22/2024 8:29 AM EDT) WBC 5.9 3.4 - 10.8 x10E3/uL [facility] RBC 5.33(H) 3.77 - 5.28 x10E6/uL [facility] Hemoglobin 10.3(L) 11.1 - 15.9 g/dL [facility] Hematocrit 35.1 34.0 - 46.6 % [facility] MCV 66(L) 79 - 97 fL [facility] MCH 19.3(L) 26.6 - 33.0 pg [facility] MCHC 29.3(L) 31.5 - 35.7 g/dL [facility] RDW 19.3(H) 11.7 - 15.4 % [facility] Platelets 174 150 - 450 x10E3/uL [facility] Neutrophils Relative 71 Not Estab. % [facility] Lymphocytes Relative 21 Not Estab. % [facility] Monocytes 5 Not Estab. % [facility] Eosinophils Relative 1 Not Estab. % [facility] Basophils Relative 1 Not Estab. % [facility] Neutrophils Absolute 4.2 1.4 - 7.0 x10E3/uL [facility] Lymphocytes Absolute 1.3 0.7 - 3.1 x10E3/uL [facility] Monocytes Absolute 0.3 0.1 - 0.9 x10E3/uL [facility] Eosinophils Absolute 0.1 0.0 - 0.4 x10E3/uL [facility] Basophils Absolute 0.0 0.0 - 0.2 x10E3/uL [facility] Immature Granulocytes 1 Not Estab. % [facility] Immature Grans (Absolute) 0.0 0.0 - 0.1 x10E3/uL [facility] Blood (Blood, Venous) 02/22/2024 8:29 AM EDT 02/22/2024 us Barry Reyes MD LAB BLOOD ORDERABLES Final Re sult [facility] [address] [place] [address] documented in this encounter Visit Diagnoses Diagnosis Chronic kidney disease, stage 2 (mild) Anemia in chronic kidney disease Iron deficiency anemia, not otherwise specified documented in this encounter Care Teams Family Psychologist Relationship Specialty Start Date End Date Sahra Son MD [address] [place] [id number] PCP - General Internal Medicine 10/28/22 documented as of this encounter
--- OUTSIDE RECORDS SUMMARY | 2024-06-20 09:27 | XMS_ITS | Encounter Summary ---
Author Organization [facility] Address [address] [place] [address] Phone Care Team Providers Care Commissioning Agent Name Role Phone Sahra Son MD Primary Care Provider + Encounter Details Date Type Department Care Team (Late Contact Info) Description 11/21/2021 Documentation Only [facility] [address] [place] [address] India Davalos [address] [place] [address] Social History Tobacco Use Types [...] [facility] [address] [place] [address] Juan Jose Li MD [address] [place] [address] [place] [address] documented as of this encounter Visit Diagnoses Not on filedocumented in this encounter Care Teams Commissioning Agent Relationship Specialty Start Date End Date Sahra Son MD [address] [phone] PCP - General Internal Medicine 10/28/22 documented as of this encounter
--- OUTSIDE RECORDS SUMMARY | 2024-06-20 09:28 | XMS_ITS | Encounter Summary ---
Author Organization [facility] Address [address] [place] [address] Phone Care Team Providers Care Designer/Writer Name Role Phone Sahra Son MD Primary Care Provider + Encounter Details Date Type Department Care Team (Late Contact Info) Description 04/05/2024 Documentation Only [facility] [address] [place] [address] India Davalos [address] [place] [address] Social History Tobacco Use Types [...] [facility] [address] [place] [address] Juan Jose Li MD [address] [place] [address] [place] [address] documented as of this encounter Visit Diagnoses Not on filedocumented in this encounter Care Teams Designer/Writer Relationship Specialty Start Date End Date Sahra Son MD [address] [phone] PCP - General Internal Medicine 10/28/22 documented as of this encounter
--- OUTSIDE RECORDS SUMMARY | 2024-06-20 09:28 | XMS_ITS | Encounter Summary ---
Author Organization [facility] Address [address] [place] [address] Phone Care Team Providers Care Lead Php Developer Name Role Phone Sahra Son MD Primary Care Provider + Encounter Details Date Type Department Care Team (Late Contact Info) Description 08/22/2021 Documentation Only [facility] [address] [place] [address] India Davalos [address] [place] [address] Social History Tobacco Use Types [...] [facility] [address] [place] [address] Juan Jose Li MD [address] [place] [address] [place] [address] documented as of this encounter Visit Diagnoses Not on filedocumented in this encounter Care Teams Lead Php Developer Relationship Specialty Start Date End Date Sahra Son MD [address] [phone] PCP - General Internal Medicine 10/28/22 documented as of this encounter
--- OUTSIDE RECORDS SUMMARY | 2024-06-20 09:28 | XMS_ITS | Encounter Summary ---
Author Organization [facility] Address [address] [place] [address] Phone Care Team Providers Care Delphi Developer Name Role Phone Sahra Son MD Primary Care Provider + Encounter Details Date Type Department Care Team (Late Contact Info) Description 06/25/2021 Documentation Only [facility] [address] [place] [address] India Davalos [address] [place] [address] Social History Tobacco Use Types [...] [facility] [address] [place] [address] Juan Jose Li MD [address] [place] [address] [place] [address] documented as of this encounter Visit Diagnoses Not on filedocumented in this encounter Care Teams Delphi Developer Relationship Specialty Start Date End Date Sahra Son MD [address] [phone] PCP - General Internal Medicine 10/28/22 documented as of this encounter
--- OUTSIDE RECORDS SUMMARY | 2024-06-20 09:28 | XMS_ITS | Encounter Summary ---
Author Organization [facility] Address [address] [place] [address] Phone Care Team Providers Care Geodetic Survey Director Name Role Phone Sahra Son MD Primary Care Provider + Encounter Details Date Type Department Care Team (Late Contact Info) Description 07/16/2023 Documentation Only [facility] [address] [place] [address] India Davalos [address] [place] [address] Social History Tobacco Use [...] [facility] [address] [place] [address] Juan Jose Li MD [address] [place] [address] [place] [address] documented as of this encounter Visit Diagnoses Not on filedocumented in this encounter Care Teams Geodetic Survey Director Relationship Specialty Start Date End Date Sahra Son MD [address] [phone] PCP - General Internal Medicine 10/28/22 documented as of this encounter
--- OUTSIDE RECORDS SUMMARY | 2024-06-20 09:28 | XMS_ITS | Encounter Summary ---
Author Organization [facility] Address [address] [place] [address] Phone Care Team Providers Care Medical Field Representative Name Role Phone Sahra Son MD Primary Care Provider + Encounter Details Date Type Department Care Team (Late Contact Info) Description 12/24/2022 Documentation Only [facility] [address] [place] [address] Carol Whelan [address] [place] [address] Social History Tobacco Use Types [...] [facility] [address] [place] [address] Juan Jose Li MD [address] [place] [address] [place] [address] documented as of this encounter Visit Diagnoses Not on filedocumented in this encounter Care Teams Medical Field Representative Relationship Specialty Start Date End Date Sahra Son MD [address] [phone] PCP - General Internal Medicine 10/28/22 documented as of this encounter
--- OUTSIDE RECORDS SUMMARY | 2024-06-20 09:28 | XMS_ITS | Encounter Summary ---
Author Organization [facility] Address [address] [place] [address] Phone Care Team Providers Care Wash Operator Name Role Phone Sahra Son MD Primary Care Provider + Encounter Details Date Type Department Care Team (Late Contact Info) Description 08/09/2023 Documentation Only [facility] [address] [place] [address] India Davalos [address] [place] [address] Social History Tobacco Use [...] [facility] [address] [place] [address] Juan Jose Li MD [address] [place] [address] [place] [address] documented as of this encounter Visit Diagnoses Not on filedocumented in this encounter Care Teams Wash Operator Relationship Specialty Start Date End Date Sahra Son MD [address] [phone] PCP - General Internal Medicine 10/28/22 documented as of this encounter
--- OUTSIDE RECORDS SUMMARY | 2024-06-20 09:28 | XMS_ITS | Encounter Summary ---
Author Organization [facility] Address [address] [place] [address] Phone Care Team Providers Care Outpatient Dietitian Name Role Phone Sahra Son MD Primary Care Provider + Encounter Details Date Type Department Care Team ([facility] Contact Info) Description 10/07/2021 Documentation Only [facility] [address] [place] [address] India Davalos [address] [place] [address] Social History Tobacco Use Types [...] [facility] [address] [place] [address] Juan Jose Li MD [address] [place] [address] [place] [address] documented as of this encounter Visit Diagnoses Not on filedocumented in this encounter Care Teams Outpatient Dietitian Relationship Specialty Start Date End Date Sahra Son MD [address] [id number] PCP - General Internal Medicine 10/28/22 documented as of this encounter
--- OUTSIDE RECORDS SUMMARY | 2024-06-20 09:28 | XMS_ITS | Encounter Summary ---
Author Organization [facility] Address [address] [place] [address] Phone Care Team Providers Care Weed Control Inspector Name Role Phone Sahra Son MD Primary Care Provider + Encounter Details Date Type Department Care Team (Late Contact Info) Description 11/17/2023 Documentation Only [facility] [address] [place] [address] India Davalos [address] [place] [address] Social History Tobacco Use Types [...] [facility] [address] [place] [place] [address] Juan Jose Li MD [address] [place] [address] [place] [address] documented as of this encounter Visit Diagnoses Not on filedocumented in this encounter Care Teams Weed Control Inspector Relationship Specialty Start Date End Date Sahra Son MD [address] [phone] PCP - General Internal Medicine 10/28/22 documented as of this encounter
--- OUTSIDE RECORDS SUMMARY | 2024-06-20 09:28 | XMS_ITS | Encounter Summary ---
Author Organization [facility] Address [address] [place] [address] Phone Care Team Providers Care Tennis Coach Name Role Phone Sahra Son MD Primary Care Provider + Encounter Details Date Type Department Care Team ([facility] Contact Info) Description 03/11/2023 Documentation Only [facility] [address] [place] [address] India Davalos [address] [place] [address] Social History Tobacco Use Types [...] [facility] [address] [place] [address] Juan Jose Li MD [address] [place] [address] [place] [address] documented as of this encounter Visit Diagnoses Not on filedocumented in this encounter Care Teams Tennis Coach Relationship Specialty Start Date End Date Sahra Son MD [address] [phone] PCP - General Internal Medicine 10/28/22 documented as of this encounter
--- OUTSIDE RECORDS SUMMARY | 2024-06-20 09:28 | XMS_ITS | Encounter Summary ---
Author Organization [facility] Address [address] [place] [address] Phone Care Team Providers Care Ventilating Engineer Name Role Phone Sahra Sno MD Primary Care Provider + Encounter Details Date Type Department Care Team ([facility] Contact Info) Description 01/06/2022 Documentation Only [facility] [address] [place] [address] Juan Jose Li MD [address] [place] [address] [place] [address] Social History Tobacco Use Types [...] [facility] [address] [place] [address] Juan Jose Li MD [address] [place] [address] [place] [address] documented as of this encounter Visit Diagnoses Not on filedocumented in this encounter Care Teams Ventilating Engineer Relationship Specialty [place] [address] [place] [address] PCP - General Internal Medicine 10/28/22 documented as of this encounter
--- OUTSIDE RECORDS SUMMARY | 2024-06-20 09:28 | XMS_ITS | Encounter Summary ---
Author Organization [facility] Address [address] [place] [address] Phone Care Team Providers Care Knockout Machine Operator Name Role Phone Sahra Son MD Primary Care Provider + Encounter Details Date Type Department Care Team ([facility] Contact Info) Description 01/29/2023 Documentation Only [facility] [address] [place] [address] India Davalos [address] [place] [address] Social History Tobacco Use Types [...] [facility] [address] [place] [address] Juan Jose Li MD [address] [place] [address] [place] [address] documented as of this encounter Visit Diagnoses Not on filedocumented in this encounter Care Teams Knockout Machine Operator Relationship Specialty Start Date End Date Sahra Son MD [address] [phone] PCP - General Internal Medicine 10/28/22 documented as of this encounter
--- OUTSIDE RECORDS SUMMARY | 2024-06-20 09:28 | XMS_ITS | Encounter Summary ---
Author Organization [facility] Address [address] [place] [address] Phone Care Team Providers Care Rounding And Backing Machine Operator Name Role Phone Sahra Son MD Primary Care Provider + Encounter Details Date Type Department Care Team ([facility] Contact Info) Description 03/11/2023 Documentation Only [facility] [address] [place] [address] India Davalos [address] [place] [address] Social History Tobacco Use Types [...] [facility] [address] [place] [address] Juan Jose Li MD [address] [place] [address] [place] [address] documented as of this encounter Visit Diagnoses Not on filedocumented in this encounter Care Teams Rounding And Backing Machine Operator Relationship Specialty Start Date End Date Sahra Son MD [address] [phone] PCP - General Internal Medicine 10/28/22 documented as of this encounter
--- OUTSIDE RECORDS SUMMARY | 2024-06-20 09:28 | XMS_ITS | Encounter Summary ---
Author Organization [facility] Address [address] [place] [address] Phone Care Team Providers Care Warehouse Stock Clerk Name Role Phone Sahra Son MD Primary Care Provider + Encounter Details Date Type Department Care Team (Late Contact Info) Description 07/16/2023 Documentation Only [facility] [address] [place] [address] India Davalos [address] [place] [address] Social History Tobacco Use Types [...] [facility] [address] [place] [address] Juan Jose Li MD [address] [place] [address] [place] [address] documented as of this encounter Visit Diagnoses Not on filedocumented in this encounter Care Teams Warehouse Stock Clerk Relationship Specialty Start Date End Date Sahra Son MD [address] [phone] PCP - General Internal Medicine 10/28/22 documented as of this encounter
--- OUTSIDE RECORDS SUMMARY | 2024-06-20 09:28 | XMS_ITS | Encounter Summary ---
Author Organization [facility] Address [address] [place] [address] Phone Care Team Providers Care Landing Gear Mechanic Name Role Phone Sahra Son MD Primary Care Provider + Encounter Details Date Type Department Care Team (Late Contact Info) Description 11/19/2023 Documentation Only [facility] [address] [place] [place] [address] India Davalos [address] [place] [address] Social History Tobacco Use Types [...] [facility] [address] [place] [place] [address] Juan Jose Li MD [address] [place] [address] [place] [address] documented as of this encounter Visit Diagnoses Not on filedocumented in this encounter Care Teams Landing Gear Mechanic Relationship Specialty Start Date End Date Sahra Son MD [address] [phone] PCP - General Internal Medicine 10/28/22 documented as of this encounter
--- OUTSIDE RECORDS SUMMARY | 2024-06-20 09:28 | XMS_ITS | Encounter Summary ---
Author Organization [facility] Address [address] [place] [address] Phone Care Team Providers Care Hospital Admitting Clerk Name Role Phone Sahra Son MD Primary Care Provider + Encounter Details Date Type Department Care Team ([facility] Contact Info) Description 03/11/2023 Documentation Only [facility] [address] [place] [address] India Davalos [address] [place] [address] Social History Tobacco Use Types [...] [facility] [address] [place] [address] Juan Jose Li MD [address] [place] [address] [place] [address] documented as of this encounter Visit Diagnoses Not on filedocumented in this encounter Care Teams Hospital Admitting Clerk Relationship Specialty Start Date End Date Sahra Son MD [address] [phone] PCP - General Internal Medicine 10/28/22 documented as of this encounter
--- OUTSIDE RECORDS SUMMARY | 2024-06-20 09:28 | XMS_ITS | Encounter Summary ---
Author Organization [facility] Address [address] [place] [address] Phone Care Team Providers Care Manager Night Name Role Phone Sahra Son MD Primary Care Provider + Encounter Details Date Type Department Care Team ([facility] Contact Info) Description 10/30/2022 Documentation Only [facility] [address] [place] [place] [address] India Davalos [address] [place] [address] Social History Tobacco Use Types [...] [facility] [address] [place] [place] [address] Juan Jose Li MD [address] [place] [address] [place] [address] documented as of this encounter Visit Diagnoses Not on filedocumented in this encounter Care Teams Manager Night Relationship Specialty Start Date End Date Sahra Son MD [address] [phone] PCP - General Internal Medicine 10/28/22 documented as of this encounter
--- OUTSIDE RECORDS SUMMARY | 2024-06-20 09:28 | XMS_ITS | Encounter Summary ---
Author Organization [facility] Address [address] [place] [address] Phone Care Team Providers Care Nursing Tech Name Role Phone Sahra Son MD Primary Care Provider + Encounter Details Date Type Department Care Team ([facility] Contact Info) Description 05/01/2024 Telephone [facility] [address] [place] [address] Olesya Han [address] [place] [address] Social History Tobacco Use [...] Upcoming Encounters Date Type Department Care Team ([facility] Contact Info) Description 07/04/2024 2:30 PM EST Office Visit [facility] [address] [place] [address] Juan Jose Li MD [address] [place] [address] [place] [address] documented as of this encounter Visit Diagnoses Not on filedocumented in this encounter Care Teams Nursing Tech Relationship Specialty Start Date End Date Sahra Son MD [address] [phone] PCP - General Internal Medicine 10/28/22 documented as of this encounter
--- OUTSIDE RECORDS SUMMARY | 2024-06-20 09:28 | XMS_ITS | Encounter Summary ---
Author Organization [facility] Address [address] [place] [address] Phone Care Team Providers Care Lift Builder Whole Name Role Phone Sahra Son MD Primary Care Provider + Encounter Details Date Type Department Care Team (Late Contact Info) Description 06/09/2023 Documentation Only [facility] [address] [place] [address] India Davalos [address] [place], [place] [...] Visit [facility] [address] [place] [address] Juan Jose Li MD [address] [place] [address] [place] [address] documented as of this encounter Visit Diagnoses Not on filedocumented in this encounter Care Teams Lift Builder Whole Relationship Specialty Start Date End Date Sahra Son MD [address] [phone] PCP - General Internal Medicine 10/28/22 documented as of this encounter
--- OUTSIDE RECORDS SUMMARY | 2024-06-20 09:28 | XMS_ITS | Encounter Summary ---
Author Organization [facility] Address [address] [place] [address] Phone Care Team Providers Care Cloth Bale Header Name Role Phone Sahra Son MD Primary Care Provider + Encounter Details Date Type Department Care Team ([facility] Contact Info) Description 07/03/2021 Documentation Only [facility] [address] [place] [address] Juan Jose Li MD [address] [place] [address] [place] [address] Social History Tobacco Use Types [...] [facility] [address] [place] [address] Juan Jose Li MD [address] [place] [address] [place] [address] documented as of this encounter Visit Diagnoses Not on filedocumented in this encounter Care Teams Cloth Bale Header Relationship Specialty [place] [address] [place] [address] PCP - General Internal Medicine 10/28/22 documented as of this encounter
--- OUTSIDE RECORDS SUMMARY | 2024-06-20 09:28 | XMS_ITS | Encounter Summary ---
Author Organization [facility] Address [address] [place] [address] Phone Care Team Providers Care Duralumin Metalworker Name Role Phone Sahra Son MD Primary Care Provider + Encounter Details Date Type Department Care Team ([facility] Contact Info) Description 02/01/2023 Documentation Only [facility] [address] [place] [address] India Davalos [address] [place] [address] Social History Tobacco Use Types [...] [facility] [address] [place] [address] Juan Jose Li MD [address] [place] [address] [place] [address] documented as of this encounter Visit Diagnoses Not on filedocumented in this encounter Care Teams Duralumin Metalworker Relationship Specialty Start Date End Date Sahra Son MD [address] [phone] PCP - General Internal Medicine 10/28/22 documented as of this encounter
--- OUTSIDE RECORDS SUMMARY | 2024-06-20 09:28 | XMS_ITS | Clinical Summary ---
Author Organization [facility] [place], Address [address] [place] [address] [place] [address] Phone Care Team Providers Care Duck Operator Name Role Phone Sahra Son MD Primary Care Provider + Allergies Active Allergy Reactions Criticality Noted Date Comments Codeine 12/26/2012 Ferumoxytol Shortness of breath,Itching,Other (see comments) High 02/27/2022 Bones hurt Iodinated Contrast Media 07/06/2022 Penicillins 12/26/2012 Other Shellfish Allergy 12/26/2012 Tramadol 07/06/2022 Trazodone 03/08/2018 Iron Sucrose 02/29/2024 Coughing fit infusion [place] [facility] Cymbalta [address] capsule TK 2 CS PO QAM 12/28/19 20 Active LORazepam (ATIVAN) 1 MG tablet TK 1 T PO BID 12/24/19 20 Active meclizine (ANTIVERT) 25 MG tablet TK 1 T PO TID PRN 12/24/19 20 Active montelukast (SINGULAIR) 10 MG tablet TK 1 T PO QD IN THE DARCY 11/19/19 20 Active Creon 39956-47415 units capsule TK ONE C PO TID [...] Only [facility] [address] [place] [address] India Davalos Anemia in chronic kidney disease; Other iron deficiency anemia; Chronic kidney disease, stage 2 (mild) 06/05/2024 Telephone [facility] [place] [address] [place] [address] Stephanie Azul, labor union business representative reminder 05/26/2024 Orders Only [facility] [address] [address] India Davalos Chronic kidney disease, stage 2 (mild); Anemia in chronic kidney disease; Iron deficiency anemia, not otherwise specified 05/05/2024 Telephone [facility] [address] [place] [address] India Davalos 05/05/2024 Orders Only [facility] [address] [place] [address] Kaylyn Vargas Anemia in chronic kidney disease; Iron deficiency anemia, not otherwise specified; Chronic kidney disease, stage 2 (mild) 05/01/2024 Telephone [facility] [address] [place] [address] Olesya Han 05/01/2024 Telephone [facility] [address] [place] [address] Olesya Han 04/28/2024 Orders Only [facility] [address] [place] [address] India Davalos Chronic kidney disease, stage 2 (mild); Anemia in chronic kidney disease; Iron deficiency anemia, not otherwise specified 04/07/2024 Orders Only [facility] [address] [place] [address] Kaylyn Vargas Anemia in chronic kidney disease; Iron deficiency anemia, not otherwise specified; Chronic kidney disease, stage 2 (mild) 04/05/2024 Documentation Only [facility] [address] [place] [address] AnoopIndia henry 04/05/2024 Documentation Only [facility] [address] [place] [place] [address] India Davalos 04/03/2024 Documentation Only [facility] [address] [place] [address] Kaylyn Vargas 03/31/2024 Orders Only [facility] [address] [place] [address] India Davalos Chronic kidney disease, stage 2 (mild); Anemia in chronic kidney disease; Iron deficiency anemia, not otherwise specified 03/23/2024 Documentation Only [facility] [address] [place] [address] India Davalos 03/22/2024 3:00 PM EST Office Visit [facility] [address] [place] [address] Arlene Alston PA Chronic kidney disease, stage 2 (mild) (Primary Dx); Essential (primary) hypertension; Type 2 diabetes mellitus, not otherwise specified (HCC) 03/22/2024 Documentation Only [facility] [address] [place] [address] India Davalos from Last 3 Months Immunizations [...] Visit [facility] [place], [address] [facility] [place] [address] Juan Jose Li MD [address] [facility] [place] [address] Health Maintenance Due Date Last Done Comments [...] TIBC 262 250 - 450 ug/dL [facility] UIBC 205 118 - 369 ug/dL [facility] Iron 57 27 - 139 ug/dL [facility] Iron Saturation (TSat) 22 15 - 55 % [facility] Blood (Blood, Venous) 06/07/2024 11:53 AM EST 06/07/2024 us Barry Reyes MD LAB BLOOD ORDERABLES Final Re sult [facility] [address] [place] [address] * (ABNORMAL) CBC and Differential (06/07/2024 11:53 AM EST) Only the most recent of3 resultswithin the time period is included. WBC 5.5 3.4 - 10.8 x10E3/uL [facility] RBC 5.76(H) 3.77 - 5.28 x10E6/uL [facility] Hemoglobin 11.1 11.1 - 15.9 g/dL [facility] Hematocrit 38.4 34.0 - 46.6 % [facility] MCV 67(L) 79 - 97 fL [facility] MCH 19.3(L) 26.6 - 33.0 pg [facility] MCHC 28.9(L) 31.5 - 35.7 g/dL [facility] RDW 18.8(H) 11.7 - 15.4 % [facility] Platelets 162 150 - 450 x10E3/uL [facility] Neutrophils Relative 59 Not Estab. % [facility] Lymphocytes Relative 31 Not Estab. % [facility] Monocytes 6 Not Estab. % [facility] Eosinophils Relative 2 Not Estab. % [facility] Basophils Relative 1 Not Estab. % [facility] Neutrophils Absolute 3.3 1.4 - 7.0 x10E3/uL [facility] Lymphocytes Absolute 1.7 0.7 - 3.1 x10E3/uL [facility] Monocytes Absolute 0.3 0.1 - 0.9 x10E3/uL [facility] Eosinophils Absolute 0.1 0.0 - 0.4 x10E3/uL [facility] Basophils Absolute 0.0 0.0 - 0.2 x10E3/uL [facility] Immature Granulocytes 1 Not Estab. % [facility] Immature Grans (Absolute) 0.0 0.0 - 0.1 x10E3/uL [facility] Blood (Blood, Venous) 06/07/2024 11:53 AM EST 06/07/2024 Barry Reyes MD LAB BLOOD ORDERABLES Final Re sult [facility] [address] [place] [phone] * Ferritin (06/07/2024 11:53 AM EST) Only the most recent of3 resultswithin the time period is included. Ferritin 102 15 - 150 ng/mL [facility] Blood (Blood, Venous) 06/07/2024 11:53 AM EST 06/07/2024 Barry Reyes MD LAB BLOOD ORDERABLES Final Re sult [facility] [address] [place] [address] * (ABNORMAL) Renal Function Panel (06/07/2024 11:53 AM EST) Only the most recent of3 resultswithin the time period is included. Glucose 168(H) 70 - 99 mg/dL [facility] BUN 17 8 - 27 mg/dL [facility] Creatinine 1.09(H) 0.57 - 1.00 mg/dL [facility] eGFR CKD-EPI CR 2020 57(L) >59 mL/min/1.7 3 [facility] BUN/Creatinine Ratio 16 12 - 28 [facility] Sodium 137 134 - 144 mmol/L [facility] Potassium 4.8 3.5 - 5.2 mmol/L [facility] Chloride 99 96 - 106 mmol/L [facility] Bicarbonate (CO2) 23 20 - 29 mmol/L [facility] Calcium 9.0 8.7 - 10.3 mg/dL [facility] Albumin 4.2 3.9 - 4.9 g/dL [facility] Phosphorus 4.4(H) 3.0 - 4.3 mg/dL [facility] Blood (Blood, Venous) 06/07/2024 11:53 AM EST 06/07/2024 us Barry Reyes MD LAB BLOOD ORDERABLES Final Re sult [facility] [address] [place] [address] * (ABNORMAL) Hemoglobin A1c (06/08/2023 8:36 AM EST) Hemoglobin A1C 7.2(H) (4.0-5.6) % [facility] Comment: MONITORING: In known diabetic patients, hemoglobin A1c targets should be discussed with health care provider. DIAGNOSTIC USE: ??The [place] Diabetes Association (ADA) and the World Health [...] Supplement 1 Testing performed or reported by [facility], a Service of [facility], [address] [place] [address] Luis A Bailey MD, Track Layer Head [facility]# [id number] Blood (Blood, Venous) 06/08/2023 8:36 AM EST 06/08/2023 8:38 AM EST Arlene CARTER LAB BLOOD ORDERABLES Final Re sult [facility] from Last 3 Months or Most Recently Relevant to Health Maintenance Insurance [employer] SNP ([id number]) [place] [id number] Care Teams Duck Operator Relationship Specialty Start Date End Date Sahra Son MD [address] [place] [id number] PCP - General Internal Medicine 10/28/22
--- OUTSIDE RECORDS SUMMARY | 2024-06-20 09:28 | XMS_ITS | Encounter Summary ---
Author Organization [facility] Address [address] [place] [address] Phone Care Team Providers Care Natural Gas Plant Technician Name Role Phone Sahra Son MD Primary Care Provider + Encounter Details Date Type Department Care Team (Late Contact Info) Description 08/05/2023 Documentation Only [facility] [address] [place] [address] India Davalos [address] [place] [address] Social History Tobacco Use Types [...] [facility] [address] [place] [address] Juan Jose Li MD [address] [place] [address] [place] [address] documented as of this encounter Visit Diagnoses Not on filedocumented in this encounter Care Teams Natural Gas Plant Technician Relationship Specialty Start Date End Date Sahra Son MD [address] [phone] PCP - General Internal Medicine 10/28/22 documented as of this encounter
--- OUTSIDE RECORDS SUMMARY | 2024-06-20 09:28 | XMS_ITS | Encounter Summary ---
Author Organization [facility] Address [address] [place] [address] Phone Care Team Providers Care Flight Purser Name Role Phone Sahra Son MD Primary Care Provider + Encounter Details Date Type Department Care Team ([facility] Contact Info) Description 01/29/2023 Documentation Only [facility] [address] [place] [address] India Davalos [address] [place] [address] Social History Tobacco Use Types [...] [facility] [address] [place] [address] Juan Jose Li MD [address] [place] [address] [place] [address] documented as of this encounter Visit Diagnoses Not on filedocumented in this encounter Care Teams Flight Purser Relationship Specialty Start Date End Date Sahra Son MD [address] [phone] PCP - General Internal Medicine 10/28/22 documented as of this encounter
--- OUTSIDE RECORDS SUMMARY | 2024-06-20 09:28 | XMS_ITS | Encounter Summary ---
Author Organization [facility] Address [address] [place] [address] Phone Care Team Providers Care Quill Machine Tender Name Role Phone Sahra Son MD Primary Care Provider + Encounter Details Date Type Department Care Team ([facility] Contact Info) Description 10/26/2022 Documentation Only [facility] [address] [place] [address] India Davalos [address] [place] [address] Social History Tobacco Use Types [...] [facility] [address] [place] [address] Juan Jose Li MD [address] [place] [address] [place] [address] documented as of this encounter Visit Diagnoses Not on filedocumented in this encounter Care Teams Quill Machine Tender Relationship Specialty Start Date End Date Sahra Son MD [address] [phone] PCP - General Internal Medicine 10/28/22 documented as of this encounter
--- OUTSIDE RECORDS SUMMARY | 2024-06-20 09:28 | XMS_ITS | Encounter Summary ---
Author Organization [facility] Address [address] [place] [address] Phone Care Team Providers Care Human Resources Professional Name Role Phone Sahra Son MD Primary Care Provider + Encounter Details Date Type Department Care Team (Late Contact Info) Description 08/27/2021 Documentation Only [facility] [address] [place] [address] India Davalos [address] [place], [place] [...] [facility] [address] [place] [address] Juan Jose Li MD [address] [place] [address] [place] [address] documented as of this encounter Visit Diagnoses Not on filedocumented in this encounter Care Teams Human Resources Professional Relationship Specialty Start Date End Date Sahra Son MD [address] [phone] PCP - General Internal Medicine 10/28/22 documented as of this encounter
--- OUTSIDE RECORDS SUMMARY | 2024-06-20 09:28 | XMS_ITS | Encounter Summary ---
Author Organization [facility] Address [address] [place] [address] Phone Care Team Providers Care Seismograph Shooter Name Role Phone Sahra Son MD Primary Care Provider + Encounter Details Date Type Department Care Team (Late Contact Info) Description 11/30/2023 Documentation Only [facility] [address] [place] [address] India Davalos [address] [place] [address] Social History Tobacco Use Types [...] [facility] [address] [place] [address] Juan Jose Li MD [address] [place] [address] [place] [address] documented as of this encounter Visit Diagnoses Not on filedocumented in this encounter Care Teams Seismograph Shooter Relationship Specialty Start Date End Date Sahra Son MD [address] [phone] PCP - General Internal Medicine 10/28/22 documented as of this encounter
--- OUTSIDE RECORDS SUMMARY | 2024-06-20 09:28 | XMS_ITS | Encounter Summary ---
Author Organization [facility] Address [address] [place] [address] Phone Care Team Providers Care Senior Field Engineer Name Role Phone Sahra Son MD Primary Care Provider + Encounter Details Date Type Department Care Team (Late Contact Info) Description 05/26/2024 Orders Only [facility] [address] [place] [address] India Davalos [address] [place] [address] Chronic kidney disease, stage 2 [...] Services Of [facility] [address] [place] [address] Juan Jose Li MD [address] [place] [address] [place] [address] documented as of this encounter [...] Glucose 168(H) 70 - 99 mg/dL [facility] BUN 17 8 - 27 mg/dL [facility] Creatinine 1.09(H) 0.57 - 1.00 mg/dL [facility] eGFR CKD-EPI CR 2020 57(L) >59 mL/min/1.7 3 [facility] BUN/Creatinine Ratio 16 12 - 28 [facility] Sodium 137 134 - 144 mmol/L [facility] Potassium 4.8 3.5 - 5.2 mmol/L [facility] Chloride 99 96 - 106 mmol/L [facility] Bicarbonate (CO2) 23 20 - 29 mmol/L [facility] Calcium 9.0 8.7 - 10.3 mg/dL [facility] Albumin 4.2 3.9 - 4.9 g/dL [facility] Phosphorus 4.4(H) 3.0 - 4.3 mg/dL [facility] Blood (Blood, Venous) 06/07/2024 11:53 AM EST 06/07/2024 Barry Reyes MD LAB BLOOD ORDERABLES Final Re sult Performing Organization Address City/[facility]/ZIP Co de Phone Number [facility] [address] [place] [address] * Ferritin (06/07/2024 11:53 AM EST) Ferritin 102 15 - 150 ng/mL [facility] Blood (Blood, Venous) 06/07/2024 11:53 AM EST 06/07/2024 Barry Reyes MD LAB BLOOD ORDERABLES Final Re sult Performing Organization Address [facility] de Phone Number [facility] [address] [place] [address] * Iron Panel (Fe, TIBC, TSAT) (06/07/2024 11:53 AM EST) TIBC 262 250 - 450 ug/dL [facility] UIBC 205 118 - 369 ug/dL [facility] Iron 57 27 - 139 ug/dL [facility] Iron Saturation (TSat) 22 15 - 55 % [facility] Blood (Blood, Venous) 06/07/2024 11:53 AM EST 06/07/2024 Barry Reyes MD LAB BLOOD ORDERABLES Final Re sult Performing Organization Address [facility]/ZIP Co de Phone Number [facility] [address] [place] [address] * (ABNORMAL) CBC and Differential (06/07/2024 11:53 AM EST) [facility] WBC 5.5 3.4 - 10.8 x10E3/uL [facility] RBC 5.76(H) 3.77 - 5.28 x10E6/uL [facility] Hemoglobin 11.1 11.1 - 15.9 g/dL [facility] Hematocrit 38.4 34.0 - 46.6 % [facility] MCV 67(L) 79 - 97 fL [facility] MCH 19.3(L) 26.6 - 33.0 pg [facility] MCHC 28.9(L) 31.5 - 35.7 g/dL [facility] RDW 18.8(H) 11.7 - 15.4 % [facility] Platelets 162 150 - 450 x10E3/uL [facility] Neutrophils Relative 59 Not Estab. % [facility] Lymphocytes Relative 31 Not Estab. % [facility] Monocytes 6 Not Estab. % [facility] Eosinophils Relative 2 Not Estab. % [facility] Basophils Relative 1 Not Estab. % [facility] Neutrophils Absolute 3.3 1.4 - 7.0 x10E3/uL [facility] Lymphocytes Absolute 1.7 0.7 - 3.1 x10E3/uL [facility] Monocytes Absolute 0.3 0.1 - 0.9 x10E3/uL [facility] Eosinophils Absolute 0.1 0.0 - 0.4 x10E3/uL [facility] Basophils Absolute 0.0 0.0 - 0.2 x10E3/uL [facility] Immature Granulocytes 1 Not Estab. % [facility] Immature Grans (Absolute) 0.0 0.0 - 0.1 x10E3/uL [facility] Blood (Blood, Venous) 06/07/2024 11:53 AM EST 06/07/2024 us Barry Reyes MD LAB BLOOD ORDERABLES Final Re sult [facility] [address] [place] [address] documented in this encounter Visit Diagnoses Diagnosis Chronic kidney disease, stage 2 (mild) Anemia in chronic kidney disease Iron deficiency anemia, not otherwise specified documented in this encounter Care Teams Senior Field Engineer Relationship Specialty [place] [address] [place] [id number] PCP - General Internal Medicine 10/28/22 documented as of this encounter
--- OUTSIDE RECORDS SUMMARY | 2024-06-20 09:28 | XMS_ITS | Encounter Summary ---
Author Organization [facility] Address [address] [place] [address] Phone Care Team Providers Care Veneer Department Manager Name Role Phone Sahra Son MD Primary Care Provider + Encounter Details Date Type Department Care Team (Late Contact Info) Description 04/05/2024 Documentation Only [facility] [address] [place] [address] India Davalos [address] [place] [address] Social History Tobacco Use Types [...] [facility] [address] [place] [address] Juan Jose Li MD [address] [place] [address] [place] [address] documented as of this encounter Visit Diagnoses Not on filedocumented in this encounter Care Teams Veneer Department Manager Relationship Specialty Start Date End Date Sahra Son MD [address] [phone] PCP - General Internal Medicine 10/28/22 documented as of this encounter
--- OUTSIDE RECORDS SUMMARY | 2024-06-20 09:28 | XMS_ITS | Encounter Summary ---
Author Organization [facility] Address [address] [place] [address] Phone Care Team Providers Care Writing Center Director Name Role Phone Sahra Son MD Primary Care Provider + Encounter Details Date Type Department Care Team (Late Contact Info) Description 11/11/2023 Documentation Only [facility] [address] [place] [address] India Davalos [address] [place] [address] Social History Tobacco Use Types [...] [facility] [address] [place] [address] Juan Jose Li MD [address] [place] [address] [place] [address] documented as of this encounter Visit Diagnoses Not on filedocumented in this encounter Care Teams Writing Center Director Relationship Specialty Start Date End Date Sahra Son MD [address] [phone] PCP - General Internal Medicine 10/28/22 documented as of this encounter
--- OUTSIDE RECORDS SUMMARY | 2024-06-20 09:28 | XMS_ITS | Encounter Summary ---
Author Organization [facility] Address [address] [place] [address] Phone Care Team Providers Care Water Plant Operator Name Role Phone Sahra Son MD Primary Care Provider + Encounter Details Date Type Department Care Team (Late Contact Info) Description 03/31/2024 Orders Only [facility] [address] [place] [address] India Davalos [address] [place] [address] Chronic kidney disease, stage 2 [...] Visit [facility] [address] [place] [address] Juan Jose Li MD [address] [place] [address] [place] [address] documented as of this encounter Visit Diagnoses Diagnosis Chronic kidney disease, stage 2 (mild) Anemia in chronic kidney disease Iron deficiency anemia, not otherwise specified documented in this encounter Care Teams Water Plant Operator Relationship Specialty Start Date End Date Sahra Son MD [address] [place] [address] PCP - General Internal Medicine 10/28/22 documented as of this encounter
--- OUTSIDE RECORDS SUMMARY | 2024-06-20 09:28 | XMS_ITS | Encounter Summary ---
Author Organization [facility] Address [address] [place] [address] Phone Care Team Providers Care Vegetable I Farmworker Name Role Phone Sahra Son MD Primary Care Provider + Encounter Details Date Type Department Care Team (Late Contact Info) Description 11/11/2023 Documentation Only [facility] [address] [place] [address] India Davalos [address] [place] [address] Social History Tobacco Use Types [...] [facility] [address] [place] [address] Juan Jose Li MD [address] [place] [address] [place] [address] documented as of this encounter Visit Diagnoses Not on filedocumented in this encounter Care Teams Vegetable I Farmworker Relationship Specialty Start Date End Date Sahra Son MD [address] [phone] PCP - General Internal Medicine 10/28/22 documented as of this encounter
--- OUTSIDE RECORDS SUMMARY | 2024-06-20 09:28 | XMS_ITS | Encounter Summary ---
Author Organization [facility] Address [address] [place] [address] Phone Care Team Providers Care Community Marketing Manager Name Role Phone Sahra Son MD Primary Care Provider + Encounter Details Date Type Department Care Team (Late Contact Info) Description 05/17/2023 Orders Only [facility] [address] [address] Arlene Alston PA Chronic kidney [...] Visit [facility] [address] [place] [address] Juan Jose Li MD [address] [place] [address] [place] [address] documented as of this encounter [...] (Fe, TIBC, TSAT) (06/08/2023 8:36 AM EST) [facility] Iron 49 (30-160) MCG/DL [facility] UIBC 246 (110-370) MCG/DL [facility] TIBC 295 (140-530) MCG/DL [facility] Iron Saturation (TSat) 17(L) (20-55) % [facility] Comment: Testing performed or reported by [facility], a Service of [address] [address] Luis A Bailey MD, Account Developer CLIA# [id number] Blood (Blood, Venous) 06/08/2023 8:36 AM EST 06/08/2023 8:39 AM EST Arlene CARTER LAB BLOOD ORDERABLES Final Re sult Performing Organization Address [facility] de Phone Number [facility] * Vitamin D 25 hydroxy (06/08/2023 8:36 AM EST) Pathologist [facility] Vitamin D, 25-Hydroxy 24.8 (20-50) NG/ML [facility] Comment: Testing performed or reported by [facility], a Service of [address] [address] Luis A Bailey MD, Account Developer CLIA# [id number] Blood (Blood, Venous) 06/08/2023 8:36 AM EST 06/08/2023 8:39 AM EST Arlene CARTER LAB BLOOD ORDERABLES Final Re sult Performing Organization Address [facility] de Phone Number [facility] * (ABNORMAL) Renal function panel (06/08/2023 8:36 AM EST) Glucose 166(H) (70-99) MG/DL [facility] BUN 19 (8-23) MG/DL [facility] Creatinine 1.0 (0.5-1.0) MG/DL [facility] Sodium 138 (133-145) MMOL/L [facility] Potassium 4.9 (3.6-5.2) MMOL/L [facility] Chloride 101 (98-107) MMOL/L [facility] Bicarbonate (CO2) 27 (22-29) MMOL/L [facility] Anion Gap 10 (4-17) [facility] Albumin 4.2 (3.4-4.8) GM/DL [facility] Calcium 9.1 (8.6-10.5) MG/DL [facility] Phosphorus, Serum 3.4 (2.5-4.5) MG/DL [facility] Est GFR Non 66 ML/MIN/1.7 3 M2 [facility] Comment: Creatinine based estimated glomerular filtration (eGFR) in adults is calculated using the National Kidney Foundation recommended 2020 CKD-EPI equation. Estimates GFR from serum creatinine, age and sex. Testing performed or reported by [facility], a Service of [address] [address] Luis A Bailey MD, Account Developer CLIA# [id number] Blood (Blood, Venous) 06/08/2023 8:36 AM EST 06/08/2023 8:39 AM EST Arlene CARTER LAB BLOOD ORDERABLES Final Re sult Performing Organization Address [facility] de Phone Number [facility] * Magnesium (06/08/2023 8:36 AM EST) Magnesium 2.1 (1.6-2.3) mg/dL [facility] Comment: Testing performed or reported by [facility], a Service of [facility], [address] [place] [address] Luis A Bailey MD, Account Developer CLIA# [id number] Blood (Blood, Venous) 06/08/2023 8:36 AM EST 06/08/2023 8:39 AM EST Arlene CARTER LAB BLOOD ORDERABLES Final Re sult Performing Organization Address [facility] de Phone Number [facility] * (ABNORMAL) Hemoglobin A1c (06/08/2023 8:36 AM EST) Hemoglobin A1C 7.2(H) (4.0-5.6) % [facility] Comment: MONITORING: In known diabetic patients, hemoglobin A1c targets should be discussed with health care provider. DIAGNOSTIC USE: ??The [place] Diabetes [employer] (ADA) and the World Health [...] Supplement 1 Testing performed or reported by [facility], a Service of [facility], [address] [place] [address] Luis A Bailey MD, Account Developer [facility]# [id number] Blood (Blood, Venous) 06/08/2023 8:36 AM EST 06/08/2023 8:38 AM EST us Arlene CARTER LAB BLOOD ORDERABLES Final Re sult [facility] * (ABNORMAL) CBC and differential (06/08/2023 8:36 AM EST) White Blood Cells 5.2 (4.0-11.0 ) K/MM3 [facility] RBC 5.08 (4.20-5.4 0) M/MM3 [facility] Hgb 10.1(L) (11.7-15. 5) GM/DL [facility] Hematocrit 32.9(L) (35.7-45. 8) % [facility] MCV 64.8(L) (80.0-100 .0) [place] [facility] MCH 19.9(L) (27.0-34. 0) PG [facility] MCHC 30.7(L) (33.0-37. 0) g/dL [facility] Platelets 191 (150-460) K/MM3 [facility] RDW-SD 40.3 (<47.0) FL [facility] MPV NOT MEASURED (9.4-12.4 ) [place] [facility] nRBC Count 0.0 #/100 WBC'S [facility] NRBC Absolute 0.0 K/MM3 [facility] Neutrophils Abs Auto 3.5 (1.3-7.0) K/MM3 [facility] Lymphocytes Relative 1.3 (0.8-3.1) K/MM3 [facility] Monocytes 0.3(L) (0.4-0.9) K/MM3 [facility] Eosinophils Relative 0.1 (0.0-0.4) K/MM3 [facility] Basophil ABS 0.0 (0.0-0.1) K/MM3 [facility] Granulocytes Absolute 0.0 K/MM3 [facility] Neutrophils % Auto 67.3 (44-76) % [facility] Lymphs 24.0 (15-43) % [facility] Monocytes Absolute 5.8 (4.5-10.5 ) % [facility] Eosinophils 1.7 (0-6) % [facility] Basophils Relative 0.8 (0-2) % [facility] Immature Granulocytes 0.4 % [facility] Comment: Testing performed or reported by [facility], a Service of [facility], [address] [place] [address] Luis A Bailey MD, Account Developer [facility]# [id number] Blood (Blood, Venous) 06/08/2023 8:36 AM EST 06/08/2023 8:38 AM EST Arlene CARTER LAB BLOOD ORDERABLES Final Re sult [facility] documented in this encounter Visit Diagnoses Diagnosis Chronic kidney disease, stage 2 (mild) Essential (primary) hypertension Anemia in chronic kidney disease Antiphospholipid syndrome (HCC) Type 2 diabetes mellitus, not otherwise specified (HCC) Bleeding hemorrhoids documented in this encounter Care Teams Community Marketing Manager Relationship Specialty Start Date End Date Sahra Sno MD [address] [address] PCP - General Internal Medicine 10/28/22 documented as of this encounter
--- OUTSIDE RECORDS SUMMARY | 2024-06-20 09:29 | XMS_ITS | Encounter Summary ---
Author Organization [facility] Address [address] [place] [address] Care Team Providers Care College Director Name Role Phone Sahra Son MD Primary Care Provider Paula vailable Marko Spaulding MD Unavailable [phone] Encounter Details Date Type Department Care Team Description 05/06/2023 Log Rafter Report Medical Records [address] [place] [address] Sahra Son MD Social History Tobacco Use [...] on filedocumented in this encounter Care Teams College Director Relationship Specialty Start Date End Date Sahra Son MD PCP - General Internal Medicine 08/31/22 Marko Spaulding MD Specialist Cardiology 09/23/22 documented as of this encounter
--- OUTSIDE RECORDS SUMMARY | 2024-06-20 09:29 | XMS_ITS | Encounter Summary ---
Author Organization [employer] [facility] Address [address] [place] [address] Care Team Providers Care Neck Cutter Name Role Phone Vinnie Santizo Primary Care Provider Sahra Keith MD Primary Care Provider Marko Fernandez MD Unavailable [phone] Encounter Details Date Type Department Care Team Description 08/10/2018 [facility] Medical Records [address] [place] [address] Abstract, Provider Social History Tobacco Use Types [...] Name Priority Date/Time Associated Diagnosis Comments OUTSIDE EKG Routine 08/11/[address] Routine 08/10/2018 documented in this encounter Results * OUTSIDE EKG (08/11/2018) Provider Abstract CARDIOLOGY * OUTSIDE CT (08/10/2018) Provider Abstract RADIOLOGY documented in this encounter Visit Diagnoses Not on filedocumented in this encounter Care Teams Neck Cutter Relationship Specialty Start Date End Date Vinnie Santizo PCP - General Internal Medicine 03/30/17 08/30/22 Sahra Son MD PCP - General Internal Medicine 08/31/22 Marko Spaulding MD Specialist Cardiology 09/23/22 documented as of this encounter
--- OUTSIDE RECORDS SUMMARY | 2024-06-20 09:29 | XMS_ITS | Encounter Summary ---
Author Organization [facility] Address [address] [place] [address] Phone Care Team Providers Care Apple Thinner Name Role Phone Sahra Son MD Primary Care Provider + Encounter Details Date Type Department Care Team (Late Contact Info) Description 04/28/2024 Orders Only [facility] [address] [place] [place] [address] India Davalos [address] [place] [address] Chronic kidney disease, stage 2 [...] Visit [facility] [address] [place] [address] Juan Jose Li MD [address] [place] [address] [place] [address] documented as of this encounter [...] Glucose 153(H) 70 - 99 mg/dL [facility] BUN 17 8 - 27 mg/dL [facility] Creatinine 0.98 0.57 - 1.00 mg/dL [facility] eGFR CKD-EPI CR 2020 64 >59 mL/min/1.7 3 [facility] BUN/Creatinine Ratio 17 12 - 28 [facility] Sodium 142 134 - 144 mmol/L [facility] Potassium 5.0 3.5 - 5.2 mmol/L [facility] Chloride 106 96 - 106 mmol/L [facility] Bicarbonate (CO2) 23 20 - 29 mmol/L [facility] Calcium 8.9 8.7 - 10.3 mg/dL [facility] Albumin 3.9 3.9 - 4.9 g/dL [facility] Phosphorus 3.9 3.0 - 4.3 mg/dL [facility] Blood (Blood, Venous) 05/05/2024 9:18 AM EST 05/05/2024 Barry Reyes MD LAB BLOOD ORDERABLES Final Re sult Performing Organization Address City/[facility]/ZIP Co de Phone Number [facility] [address] [place] [address] * (ABNORMAL) Ferritin (05/05/2024 9:18 AM EST) Ferritin 282(H) 15 - 150 ng/mL [facility] Blood (Blood, Venous) 05/05/2024 9:18 AM EST 05/05/2024 Barry Reyes MD LAB BLOOD ORDERABLES Final Re sult Performing Organization Address City/[facility] de Phone Number [facility] [address] [place] [address] * Iron Panel (Fe, TIBC, TSAT) (05/05/2024 9:18 AM EST) TIBC 277 250 - 450 ug/dL [facility] UIBC 210 118 - 369 ug/dL [facility] Iron 67 27 - 139 ug/dL [facility] Iron Saturation (TSat) 24 15 - 55 % [facility] Blood (Blood, Venous) 05/05/2024 9:18 AM EST 05/05/2024 Barry Reyes MD LAB BLOOD ORDERABLES Final Re sult Performing Organization Address City/[facility]/ZIP Co de Phone Number [facility] [address] [place] [address] * (ABNORMAL) CBC and Differential (05/05/2024 9:18 AM EST) [facility] WBC 5.6 3.4 - 10.8 x10E3/uL [facility] RBC 5.33(H) 3.77 - 5.28 x10E6/uL [facility] Hemoglobin 10.2(L) 11.1 - 15.9 g/dL [facility] Hematocrit 35.0 34.0 - 46.6 % [facility] MCV 66(L) 79 - 97 fL [facility] MCH 19.1(L) 26.6 - 33.0 pg [facility] MCHC 29.1(L) 31.5 - 35.7 g/dL [facility] RDW 20.1(H) 11.7 - 15.4 % [facility] Platelets 163 150 - 450 x10E3/uL [facility] Neutrophils Relative 64 Not Estab. % [facility] Lymphocytes Relative 26 Not Estab. % [facility] Monocytes 6 Not Estab. % [facility] Eosinophils Relative 3 Not Estab. % [facility] Basophils Relative 1 Not Estab. % [facility] Neutrophils Absolute 3.6 1.4 - 7.0 x10E3/uL [facility] Lymphocytes Absolute 1.5 0.7 - 3.1 x10E3/uL [facility] Monocytes Absolute 0.3 0.1 - 0.9 x10E3/uL [facility] Eosinophils Absolute 0.2 0.0 - 0.4 x10E3/uL [facility] Basophils Absolute 0.0 0.0 - 0.2 x10E3/uL [facility] Immature Granulocytes 0 Not Estab. % [facility] Immature Grans (Absolute) 0.0 0.0 - 0.1 x10E3/uL [facility] Blood (Blood, Venous) 05/05/2024 9:18 AM EST 05/05/2024 us Barry Reyes MD LAB BLOOD ORDERABLES Final Re sult [facility] [address] [place] [address] documented in this encounter Visit Diagnoses Diagnosis Chronic kidney disease, stage 2 (mild) Anemia in chronic kidney disease Iron deficiency anemia, not otherwise specified documented in this encounter Care Teams Apple Thinner Relationship Specialty [place] [address] [place] [address] PCP - General Internal Medicine 10/28/22 documented as of this encounter
--- OUTSIDE RECORDS SUMMARY | 2024-06-20 09:29 | XMS_ITS | Encounter Summary ---
Author Organization [facility] [employer] [facility] Address [address] [place] [address] Care Team Providers Care Toe Trimmer Name Role Phone Vinnie Santizo Primary Care Provider Sahra Keith MD Primary Care Provider Marko Fernandez MD Unavailable [phone] Encounter Details Date Type Department Care Team Description 07/30/2022 Dry Press Operator Report Medical Records [address] [place] [address] Sahra Son MD Social History Tobacco Use [...] on filedocumented in this encounter Care Teams Toe Trimmer Relationship Specialty Start Date End Date Vinnie Santizo PCP - General Internal Medicine 03/30/17 08/30/22 Sahra Son MD PCP - General Internal Medicine 08/31/22 Marko Spaulding MD Specialist Cardiology 09/23/22 documented as of this encounter
--- OUTSIDE RECORDS SUMMARY | 2024-06-20 09:29 | XMS_ITS | Encounter Summary ---
Author Organization [facility] [employer] [facility] Address [address] [place] [address] Care Team Providers Care Certified Art Therapist Name Role Phone Tammie, Pcp Primary Care Provider Vinnie Rodriguez Primary Care Provider Sahra Keith MD Primary Care Provider Paula Marko Ferreira MD Unavailable [phone] Encounter Details Date Type Department Care Team Description 02/24/2017 [facility] Medical Records [address] [place] [address] Social History Tobacco Use Types Packs/Day Years [...] filedocumented in this encounter Care Teams Certified Art Therapist Relationship Specialty Start Date End Date Tammie, Pcp PCP - General Internal Medicine 07/24/13 03/29/17 Vinnie Santizo PCP - General Internal Medicine 03/30/17 08/30/22 Sarha Son MD PCP - General Internal Medicine 08/31/22 Marko Spaulidng MD Specialist Cardiology 09/23/22 documented as of this encounter
--- OUTSIDE RECORDS SUMMARY | 2024-06-20 09:29 | XMS_ITS | Encounter Summary ---
Author Organization [facility] [email or web address] [facility] Address [address] [place] [address] Care Team Providers Care Shortage Worker Name Role Phone Vinnie Santizo Primary Care Provider Sahra Keith MD Primary Care Provider Marko Fernandez MD Unavailable [phone] Encounter Details Date Type Department Care Team Description 08/13/2018 [facility] Medical Records [address] [place] [address] Social History Tobacco Use Types Packs/Day Years [...] Name Priority Date/Time Associated Diagnosis Comments OUTSIDE CT Routine 08/13/2018 documented in this encounter Results * OUTSIDE CT (08/13/2018) Provider Abstract RADIOLOGY documented in this encounter Visit Diagnoses Not on filedocumented in this encounter Care Teams Shortage Worker Relationship Specialty Start Date End Date Vinnie Santizo PCP - General Internal Medicine 03/30/17 08/30/22 Sahra Son MD PCP - General Internal Medicine 08/31/22 Marko Spaulding MD Specialist Cardiology 09/23/22 documented as of this encounter
--- OUTSIDE RECORDS SUMMARY | 2024-06-20 09:29 | XMS_ITS | Encounter Summary ---
Author Organization [facility] Address [address] [place] [address] Care Team Providers Care Line Maintainer Name Role Phone Vinnie Santizo Primary Care Provider Obinna Merrill MD Primary Care Provider [facility] Tammie, Pcp Primary Care Provider Vinnie Rodriguez Primary Care Provider Sahra Keith MD Primary Care Provider Paula [facility] Marko Spaulding MD Unavailable [phone] Encounter Details Date Type Department Care Team Description 09/09/1998 [facility] [address] [address] Gwen Jean UNSPECIFIED CHEST PAIN Social History Tobacco Use Types Packs/Day Years Used Date Smoking Tobacco: Never Assessed Sex Assigned at Date Recorded Not on file documented as of this encounter Plan of Treatment Not on file documented as of this encounter Visit Diagnoses Diagnosis Chest pain, unspecified documented in this encounter Care Teams Line Maintainer Relationship Specialty Start Date End Date Vinnie Santizo PCP - General 08/04/03 12/12/12 Obinna Mao MD PCP - General Internal Medicine 12/13/1207/23 [facility], Pcp PCP - General Internal Medicine 07/24/13 03/29/17 Vinnie Santizo PCP - General Internal Medicine 03/30/17 08/30/22 Sahra Son MD PCP - General Internal Medicine 08/31/22 Marko Spaulding MD Specialist Cardiology 09/23/22 documented as of this encounter
--- OUTSIDE RECORDS SUMMARY | 2024-06-20 09:29 | XMS_ITS | Encounter Summary ---
Author Organization [employer] [facility] Address [address] [place] [address] Care Team Providers Care Industrial Photographer Name Role Phone Tammie, Pcp Primary Care Provider Vinnie Rodriguez Primary Care Provider Sahra Keith MD Primary Care Provider Paula vailable Marko Spaulding MD Unavailable [phone] Encounter Details Date Type Department Care Team Description 02/12/2015 [facility] Medical Records [address] [place] [address] Abstract, Provider Social History Tobacco Use Types [...] filedocumented in this encounter Care Teams Industrial Photographer Relationship Specialty Start Date End Date Tammie, Pcp PCP - General Internal Medicine 07/24/13 03/29/17 Vinnie Santizo PCP - General Internal Medicine 03/30/17 08/30/22 Sahra Son MD PCP - General Internal Medicine 08/31/22 Marko Spaulding MD Specialist Cardiology 09/23/22 documented as of this encounter
--- OUTSIDE RECORDS SUMMARY | 2024-06-20 09:29 | XMS_ITS | Encounter Summary ---
Author Organization [facility] [employer] [facility] Address [address] [place] [address] Care Team Providers Care Hand Shaper Name Role Phone Vinnie Santizo Primary Care Provider Sahra Keith MD Primary Care Provider Marko Fernandez MD Unavailable [phone] Encounter Details Date Type Department Care Team Description 08/14/2022 [facility] Medical Records [address] [place] [address] Abstract, Provider Social History Tobacco Use Types [...] on filedocumented in this encounter Care Teams Hand Shaper Relationship Specialty Start Date End Date Vinnie Santizo PCP - General Internal Medicine 03/30/17 08/30/22 Sahra Son MD PCP - General Internal Medicine 08/31/22 Marko Spaulding MD Specialist Cardiology 09/23/22 documented as of this encounter
--- OUTSIDE RECORDS SUMMARY | 2024-06-20 09:29 | XMS_ITS | Encounter Summary ---
Author Organization [facility] [employer] [facility] Address [address] [place] [address] Care Team Providers Care Drum Barker Operator Name Role Phone Vinnie Santizo Primary Care Provider Sahra Keith MD Primary Care Provider Marko Fernandez MD Unavailable [phone] Encounter Details Date Type Department Care Team Description 07/24/2022 [facility] Medical Records [address] [place] [address] Social History Tobacco Use Types Packs/Day Years [...] on filedocumented in this encounter Care Teams Drum Barker Operator Relationship Specialty Start Date End Date Vinnie Santizo PCP - General Internal Medicine 03/30/17 08/30/22 Sahra Son MD PCP - General Internal Medicine 08/31/22 Marko Spaulding MD Specialist Cardiology 09/23/22 documented as of this encounter
--- OUTSIDE RECORDS SUMMARY | 2024-06-20 09:29 | XMS_ITS | Clinical Summary ---
Author Organization [facility] Address [address] [place] [address] Care Team Providers Care Outsole Cementer Machine Name Role Phone Geovani Natalie Carmelo ESPARZA Primary Care Provider [phone] Allergies Active Allergy Reactions Criticality Noted Date [...] 1 10/04/2016 Active ergocalciferol (VITAMIN D2) capsule 40046 units TK ONE C PO TWICE A [...] times a day. 0 04/27/2022 Active pancrelipase, Bwk-Whwe-Acdh, (Creon) 00[address] units CPEP TK ONE C PO TID [...] age to complete this topic Care Teams Outsole Cementer Machine Relationship Specialty Start Date End Date Natalie Olivo APRN [address] [place] [address] PCP - General Manager Business Systems 04/30/22
--- OUTSIDE RECORDS SUMMARY | 2024-06-20 09:29 | XMS_ITS | Clinical Summary ---
Author Organization [facility] Address [address] [place] [address] Care Team Providers Care Heavy Equipment Operator Name Role Phone Sahra Son MD Primary Care Provider Marko Fernandez MD Unavailable [phone] Allergies Active Allergy Reactions Severity Noted [...] 24 hr tablet 0 10/08/2022 Active Creon 77209-00743 units CAPSULE ENTERIC COATED PARTICLES TAKE 1 CAPSULE BY MOUTH BEFORE MEALS 0 09/20/2022 Active rabeprazole (ACIPHEX) 20 MG tablet Take 1 Tablet by mouth daily. 0 08/07/2022 Active Deep Sea Nasal [place] 0.65 % nasal spray INSTILL 2 DROPS [...] Myelofibrosis Meningioma Coronary artery disease Overview: Old [place] Gout Asthma Seizures Lupus Depression Hypercoagulable state Neurogenic bladder Overview: Indwelling flowers catheter Supplemental oxygen dependent COPD (chronic obstructive pulmonary dise ase) Family History Medical History Relation Name Comments ABLATION FOR AN ARRHYTHMIA Brother HEART DISEASE Father Hypertension Father [place] Father Diabetes Mother MALIGNANT NEOPLASM Mother Relation [...] 05/17/2024 03/08/2018, 05/2017, 09/08/2017, Additional history exists Insurance Payer Benefit Plan / Group Subscriber ID Effective Dates Phone Address Type MEDICARE-PA MEDICARE-PA [id number] 2007-Pre sent [address] [place] [address] MEDICARE FEE-FOR-SER [facility] CARE [facility] [id number] 2013-Pre sent [phone] [address] [place] [phone] [facility] Fee-for-Ser [facility] CARE [facility] [id number] 2013-Pre sent [address] [place] [phone] [facility] Fee-for-Ser vice MEDICAID-[place] MEDICAID-[place] [id number] 2007-Pre sent [employer] CLAIM[employer] [address] [place] [address] MEDICAID FEE-FOR-SER VICE Care Teams Heavy Equipment Operator Relationship Specialty Start Date End Date Sahra Son MD PCP - General Internal Medicine 08/31/22 Marko Spaulding MD Specialist Cardiology 09/23/22
--- OUTSIDE RECORDS SUMMARY | 2024-06-20 09:29 | XMS_ITS | Encounter Summary ---
Author Organization [facility] Address [address] [place] [address] Care Team Providers Care Veterinarian Epidemiologist Name Role Phone Vinnie Santizo Primary Care Provider Sahra Keith MD Primary Care Provider Marko Fernandez MD Unavailable [phone] Reason for Visit * Reason Comments E-prescribe Rx Request Encounter Details Date Type Department Care Team Description 11/26/2017 Refill Pulmonology - [place] [address] [facility] [address] [place] [id number] Eneida Acuña NP E-prescribe Rx Request Social [...] YES Patients current insurance carrier is: Payor: [facility] [employer] MCR / Plan: [facility] / Product Type: HMO [id number] documented in this encounter Plan of Treatment Not on file documented as of this encounter Visit Diagnoses Diagnosis Systemic lupus erythematosus, unspecified SLE type, unspecified organ involvement status (HCC) Pulmonary nodule Solitary pulmonary nodule Tobacco abuse Tobacco use disorder Asthma, unspecified asthma severity, unspecified whether complicated, unspecified whether persistent Multiple environmental allergies Cigarette smoker Tobacco use disorder documented in this encounter Care Teams Veterinarian Epidemiologist Relationship Specialty Start Date End Date Vinnie Santizo PCP - General Internal Medicine 03/30/17 08/30/22 Sahra Son MD PCP - General Internal Medicine 08/31/22 Marko Spaulding MD Specialist Cardiology 09/23/22 documented as of this encounter
--- OUTSIDE RECORDS SUMMARY | 2024-06-20 09:29 | XMS_ITS | Encounter Summary ---
Author Organization [facility] Address [address] [place] [address] Care Team Providers Care Client Retention Specialist Name Role Phone Vinnie Santizo Primary Care Provider Sahra Keith MD Primary Care Provider Marko Fernandez MD Unavailable [phone] Encounter Details Date Type Department Care Team Description 05/28/2022 SCAN Medical Records [address] [place] [id number] Abstract, Provider Social History Tobacco Use Types [...] on filedocumented in this encounter Care Teams Client Retention Specialist Relationship Specialty Start Date End Date Vinnie Santizo PCP - General Internal Medicine 03/30/17 08/30/22 Sahra Son MD PCP - General Internal Medicine 08/31/22 Marko Spaulding MD Specialist Cardiology 09/23/22 documented as of this encounter
--- OUTSIDE RECORDS SUMMARY | 2024-06-20 09:29 | XMS_ITS | Encounter Summary ---
Author Organization [facility] Address [address] [place] [address] Care Team Providers Care Postdoctoral Fellow Name Role Phone Vinnie Santizo Primary Care Provider Sahra Keith MD Primary Care Provider Marko Fernandez MD Unavailable [phone] Reason for Visit * Reason Comments E-prescribe Rx Request Encounter Details Date Type Department Care Team Description 10/24/2017 Refill Pulmonology - [place] [address] [facility] [address] [place] [id number] Eneida Acuña NP E-prescribe Rx Request Social History Tobacco Use Types Packs/Day Years Used Date Smoking Tobacco: Every Day Cigarettes 1 1 Alcohol Use Standard Drinks/Week Comments No 0 (1 standard drink = 0.6 oz pur e alcohol) Sex Assigned at Date Recorded Not on file documented as of this encounter Miscellaneous Notes * Telephone Encounter - Charley Hector - 10/25/2017 8:14 AM EDT Patient would like script to be: E-PRESCRIBED/FAXED TO PHARMACY WHEN WAS THE PATIENT'S LAST APPOINTMENT WITH THE PRESCRIBING PROVIDER? 09/08 Does patient have an upcoming appointment? Yes (THE MEDICATION REQUESTED IS ON THE MED LIST ABOVE) All of the medications requested were on the CURRENT MEDS list Did you check the Pharmacy information above?: YES Patient wants: 90 -day supply Is this a mail order prescription request ? NO Patients current insurance carrier is: [facility] / Plan: [facility] / Product Type: HMO [id number] documented in this encounter Plan of Treatment Not on file documented as of this encounter Visit Diagnoses Diagnosis Systemic lupus erythematosus, unspecified SLE type, unspecified organ involvement status (HCC) Pulmonary nodule Solitary pulmonary nodule Tobacco abuse Tobacco use disorder Asthma, unspecified asthma severity, unspecified whether complicated, unspecified whether persistent Multiple environmental allergies Cigarette smoker Tobacco use disorder documented in this encounter Care Teams Postdoctoral Fellow Relationship Specialty Start Date End Date Vinnie Santizo PCP - General Internal Medicine 03/30/17 08/30/22 Sahra Son MD PCP - General Internal Medicine 08/31/22 Marko Spaulding MD Specialist Cardiology 09/23/22 documented as of this encounter
--- OUTSIDE RECORDS SUMMARY | 2024-06-20 09:29 | XMS_ITS | Encounter Summary ---
Author Organization [facility] Address [address] [place] [address] Care Team Providers Care Program Instructor Name Role Phone Tammie, Pcp Primary Care Provider Vinnie Rodriguez Primary Care Provider Sahra Keith MD Primary Care Provider Paula Marko Ferreira MD Unavailable [phone] Encounter Details Date Type Department Care Team Description 11/13/2016 SCAN Medical Records [address] [place] [address] Aniceto Michelle Social History Tobacco Use Types [...] on filedocumented in this encounter Care Teams Program Instructor Relationship Specialty Start Date End Date Tammie, Pcp PCP - General Internal Medicine 07/24/13 03/29/17 Vinnie Santizo PCP - General Internal Medicine 03/30/17 08/30/22 Sahra Son MD PCP - General Internal Medicine 08/31/22 Marko Spaulding MD Specialist Cardiology 5/10/23 documented as of this encounter
--- OUTSIDE RECORDS SUMMARY | 2024-06-20 09:29 | XMS_ITS | Encounter Summary ---
Author Organization [facility] Address [address] [place] [address] Care Team Providers Care Wool Handler Name Role Phone Sahra Son MD Primary Care Provider Paula vailable Marko Spaulding MD Unavailable [phone] Encounter Details Date Type Department Care Team Description 09/15/2022 SCAN Medical Records [address] [place] [address] Abstract, Provider Social History Tobacco Use Types [...] on filedocumented in this encounter Care Teams Wool Handler Relationship Specialty Start Date End Date Sahra Son MD PCP - General Internal Medicine 08/31/22 Marko Spaulding MD Specialist Cardiology 09/23/22 documented as of this encounter
--- OUTSIDE RECORDS SUMMARY | 2024-06-20 09:29 | XMS_ITS | Encounter Summary ---
Author Organization [facility] Address [address] [place] [address] Care Team Providers Care Solar Installation Foreman Name Role Phone Vinnie Santizo Primary Care Provider Sahra Keith MD Primary Care Provider Marko Fernandez MD Unavailable Encounter Details Date Type Department Care Team Description 07/30/2022 Matzo Forming Machine Operator Report Medical Records [address] [place] [id number] Sahra Son MD Social History Tobacco Use [...] filedocumented in this encounter Care Teams Solar Installation Foreman Relationship Specialty Start Date End Date Vinnie Santizo PCP - General Internal Medicine 03/30/17 08/30/22 Sahra Son MD PCP - General Internal Medicine 08/31/22 Marko Spaulding MD Specialist Cardiology 09/23/22 documented as of this encounter
== END 2024-06-20 09:21 | disposition home or self-care (01) ==
LOC: HO.ACS 09:04
PROVIDERS: PCP Internal Medicine; Visit Provider Internal Medicine
DX: Z79.01 Long term (current) use of anticoagulants (principal)

== ENCOUNTER → 2024-06-20 09:04 | Outpatient (BNVA) | payer OTHER, SELFPAY | PROVIDERS: PCP Internal Medicine; Visit Provider Internal Medicine | DX: Z86.718 Personal history of other venous thrombosis and embolism (principal); Z79.01 Long term (current) use of anticoagulants; Z51.81 Encounter for therapeutic drug level monitoring | CPT/HCPCS: 85610; 99211 ==

== ENCOUNTER 2024-06-30 09:11 | Outpatient (AMB) | payer OTHER, SELFPAY ==
--- NOTE | 2024-06-30 09:21 | MHC.OFFVISCO ---
Intake Intake Visit Reasons: Anticoagulation Allergies codeine [Codeine] Allergy (Severe, Verified 06/30/24 09:17) DIFFICULTY BREATHING Penicillins Allergy (Severe, Verified 06/30/24 09:17) RASH penicillin V Allergy (Intermediate, Verified 06/30/24 09:17) RASH tramadol [Ultram] Allergy (Unknown, Verified 06/30/24 09:17) hallucinations Shellfish Allergy (Severe, Uncoded 06/30/24 09:17) THROAT SWELLING Contrast Allergy PreMed Pack Allergy (Unknown, Uncoded 06/30/24 09:17) TREAT WITH BENADRYL ferrlecit Adverse Reaction (Intermediate, Uncoded 06/30/24 09:17) Rash Medication List - Last Reconciled 06/30/24 by Barbara Lr RN atorvastatin 80 mg PO DAILY blood sugar diagnostic As directed clonidine HCl 0.1 mg PO BID dapagliflozin propanediol (Farxiga) 10 mg PO DAILY diphenhydramine HCl (Banophen) mg PO duloxetine 120 mg PO QAM epoetin marj (Procrit) 2,000 units subcut 3XW fluticasone propion-salmeterol 100-50 mcg/dose ea inhalation gabapentin 100 mg PO TID hydrocortisone 2.5% appl topical insulin glargine (Lantus Solostar U-100 Insulin) 10 units subcut QPM ipratropium-albuterol 0.5 mg-3 mg(2.5 mg base)/3 mL mL inhalation ipratropium-albuterol 20-100 mcg/actuation 1 puff PO QID lancets As directed lancets As directed latanoprost 0.005% drps ophthalmic (eye) linagliptin (Tradjenta) 5 mg PO DAILY mjhzej-tieopqzc-mpoxovj 24,000-76,000 -120,000 unit 1 cap PO TID omjozc-dyoqvbjj-wqotcre 24,000-76,000 -120,000 unit (Creon) 1 cap PO TID loratadine 10 mg PO DAILY PRN lorazepam 1 mg PO BID meclizine mg PO montelukast 10 mg PO BEDTIME nifedipine ER 30 mg PO DAILY ondansetron 4 mg PO Q8H PRN polyethylene glycol 3350 grams PO [procrit pt states she receives it weekly ] quetiapine 200 mg PO BEDTIME rabeprazole 20 mg PO DAILY ropinirole 0.25 mg PO BEDTIME sodium chloride 0.65% (Deep Sea Nasal) sprays intranasal Q2H PRN triamcinolone acetonide 0.1% appl topical warfarin 2.5 mg See Protocol PO DAILY Nursing Note INR: 2.6- in therapeutic range of 2-3 Medications and supplements reviewed- no changes, pt states not taking depakote for approx 2 weeks, waiting for neurology call back pt states had one seizure two days ago. enc to call neurolgy for f/u visual issues and is calling eye dr today for f/u pt with c.o bilat arm and spinal pain- enc to go to urgent care or ed if nec No changes in health, diet, medications, or supplements, Denies any signs and symptoms of bleeding or bruising or clotting. Bleeding, bruising, clotting discussed Nutritional guidance given Dose: 3.75mg x 7 F/U INR: 2 weeks Patient verbalizes understanding of instructions given Anti-Coag Initial Assessment Social Hx Patient Tobacco Use Status: Current everyday Tobacco user alcohol intake: never Coding Level of Care Code Est Patient Level 1 Diagnoses Current use of anticoagulant therapy Z79.01 Results AMB INR Fingerstick AMB INR Fingerstick 2.6 Last Edit by Barbara Lr RN on 06/30/24 09:26 interface delay Assessment & Plan Assessment & Plan (1) Current use of anticoagulant therapy: Code(s): Z79.01 - intermission coordinator (current) use of anticoagulants Category: Medical
--- OUTSIDE RECORDS SUMMARY | 2024-06-30 09:35 | XMS_ITS | Encounter Summary ---
Author Organization [facility] Address [address] [place] [address] Phone Care Team Providers Care Videographer Name Role Phone Sahra Son MD Primary Care Provider + Encounter Details Date Type Department Care Team ([facility] Contact Info) Description 03/23/2024 Documentation Only [facility] [address] [place] [address] India Davalos [address] [place] [address] Social History Tobacco Use Types [...] [facility] [address] [place] [address] Juan Jose Li MD [address] [place] [address] [place] [address] documented as of this encounter Visit Diagnoses Not on filedocumented in this encounter Care Teams Videographer Relationship Specialty Start Date End Date Sahra Son MD [address] [id number] PCP - General Internal Medicine 10/28/22 documented as of this encounter
--- OUTSIDE RECORDS SUMMARY | 2024-06-30 09:35 | XMS_ITS | Encounter Summary ---
Author Organization [facility] Address [address] [place] [address] Phone Care Team Providers Care Customer Experience Specialist Name Role Phone Sahra Son MD Primary Care Provider + Encounter Details Date Type Department Care Team (Late Contact Info) Description 04/05/2024 Documentation Only [facility] [address] [place] [address] India Davalos [address] [place] [address] Social History Tobacco Use Types [...] [facility] [address] [place] [address] Juan Jose Li MD [address] [place] [address] [place] [address] documented as of this encounter Visit Diagnoses Not on filedocumented in this encounter Care Teams Customer Experience Specialist Relationship Specialty Start Date End Date Sahra Son MD [address] [id number] PCP - General Internal Medicine 10/28/22 documented as of this encounter
--- OUTSIDE RECORDS SUMMARY | 2024-06-30 09:35 | XMS_ITS | Encounter Summary ---
Author Organization [facility] Address [address] [place] [address] Phone Care Team Providers Care Mock Up Builder Name Role Phone Sahra Son MD Primary Care Provider + Encounter Details Date Type Department Care Team ([facility] Contact Info) Description 05/01/2024 Telephone [facility] [address] [place] [address] Olesya Han [address] [place] [address] Social History Tobacco Use Types [...] Upcoming Encounters Date Type Department Care Team ([facility] Contact Info) Description 07/04/2024 2:30 PM EST Office Visit [facility] [address] [place] [address] Juan Jose Li MD [address] [place] [address] [place] [address] documented as of this encounter Visit Diagnoses Not on filedocumented in this encounter Care Teams Mock Up Builder Relationship Specialty Start Date End Date Sahra Son MD [address] [id number] PCP - General Internal Medicine 10/28/22 documented as of this encounter
--- OUTSIDE RECORDS SUMMARY | 2024-06-30 09:35 | XMS_ITS | Encounter Summary ---
Author Organization [facility] Address [address] [place] [address] Phone Care Team Providers Care Director [place] Sales Name Role Phone Sahra Son MD Primary Care Provider + Encounter Details Date Type Department Care Team ([facility] Contact Info) Description 09/28/2022 Documentation Only [facility] [address] [place] [address] India Davalos [address] [place] [address] Social History Tobacco Use Types [...] Services Of [address] [place] [address] Juan Jose Li MD [address] [place] [address] [place] [address] documented as of this encounter Visit Diagnoses Not on filedocumented in this encounter Care Teams Director [place] Sales Relationship Specialty Start Date End Date Sahra Son MD [address] [id number] PCP - General Internal Medicine 10/28/22 documented as of this encounter
--- OUTSIDE RECORDS SUMMARY | 2024-06-30 09:35 | XMS_ITS | Encounter Summary ---
Author Organization [facility] Address [address] [place] [address] Phone Care Team Providers Care Ambulatory Care Nurse Name Role Phone Sahra Son MD Primary Care Provider + Encounter Details Date Type Department Care Team ([facility] Contact Info) Description 09/28/2022 Documentation Only [facility] [address] [place] [address] India Davalos [address] [place] [address] Social History Tobacco Use Types [...] [facility] [address] [place] [address] Juan Jose Li MD [address] [place] [address] [place] [address] documented as of this encounter Visit Diagnoses Not on filedocumented in this encounter Care Teams Ambulatory Care Nurse Relationship Specialty Start Date End Date Sahra Son MD [address] [id number] PCP - General Internal Medicine 10/28/22 documented as of this encounter
--- OUTSIDE RECORDS SUMMARY | 2024-06-30 09:35 | XMS_ITS | Encounter Summary ---
Author Organization [facility] Address [address] [place] [address] Phone Care Team Providers Care Telesales Specialist Name Role Phone Sahra Son MD Primary Care Provider + Encounter Details Date Type Department Care Team (Late Contact Info) Description 06/16/2022 Documentation Only [facility] [address] [place] [address] India Davalos [address] [place] [address] Social History Tobacco Use Types [...] [facility] [address] [place] [address] Juan Jose Li MD [address] [place] [address] [place] [address] documented as of this encounter Visit Diagnoses Not on filedocumented in this encounter Care Teams Telesales Specialist Relationship Specialty Start Date End Date Sahra Son MD [address] [id number] PCP - General Internal Medicine 10/28/22 documented as of this encounter
--- OUTSIDE RECORDS SUMMARY | 2024-06-30 09:35 | XMS_ITS | Encounter Summary ---
Author Organization [facility] Address [address] [place] [address] Phone Care Team Providers Care 911 Dispatcher Name Role Phone Sahra Son MD Primary Care Provider + Encounter Details Date Type Department Care Team (Late Contact Info) Description 06/18/2021 Documentation Only [facility] [address] [place] [address] India Davalos [address] [place] [address] Social History Tobacco Use Types [...] [facility] [address] [place] [address] Juan Jose Li MD [address] [place] [address] [place] [address] documented as of this encounter Visit Diagnoses Not on filedocumented in this encounter Care Teams 911 Dispatcher Relationship Specialty Start Date End Date Sahra Son MD [address] [id number] PCP - General Internal Medicine 10/28/22 documented as of this encounter
--- OUTSIDE RECORDS SUMMARY | 2024-06-30 09:35 | XMS_ITS | Encounter Summary ---
Author Organization [facility] Address [address] [place] [address] Phone Care Team Providers Care Vice President Quality Assurance Name Role Phone Sahra Son MD Primary Care Provider + Encounter Details Date Type Department Care Team (Late Contact Info) Description 03/31/2024 Orders Only [facility] [address] [place] [address] India Davalos [address] [place] [address] Chronic kidney disease, stage 2 [...] Visit [facility] [address] [place] [address] Juan Jose Li MD [address] [place] [address] [place] [address] documented as of this encounter Visit Diagnoses Diagnosis Chronic kidney disease, stage 2 (mild) Anemia in chronic kidney disease Iron deficiency anemia, not otherwise specified documented in this encounter Care Teams Vice President Quality Assurance Relationship Specialty Start Date End Date Sahra Son MD [address] [place] [address] PCP - General Internal Medicine 10/28/22 documented as of this encounter
--- OUTSIDE RECORDS SUMMARY | 2024-06-30 09:35 | XMS_ITS | Encounter Summary ---
Author Organization [facility] Address [address] [place] [address] Phone Care Team Providers Care Reformatory Attendant Name Role Phone Sahra Son MD Primary Care Provider + Encounter Details Date Type Department Care Team (Late Contact Info) Description 04/05/2024 Documentation Only [facility] [address] [place] [address] India Davalos [address] [place] [address] Social History Tobacco Use Types [...] [facility] [address] [place] [address] Juan Jose Li MD [address] [place] [address] [place] [address] documented as of this encounter Visit Diagnoses Not on filedocumented in this encounter Care Teams Reformatory Attendant Relationship Specialty Start Date End Date Sahra Son MD [address] [phone] PCP - General Internal Medicine 10/28/22 documented as of this encounter
--- OUTSIDE RECORDS SUMMARY | 2024-06-30 09:35 | XMS_ITS | Encounter Summary ---
Author Organization [facility] Address [address] [place] [address] Phone Care Team Providers Care Hotel Room Attendant Name Role Phone Sahra Son MD Primary Care Provider + Encounter Details Date Type Department Care Team ([facility] Contact Info) Description 03/22/2024 Documentation Only [facility] [address] [place] [address] India Davalos [address] [place], [place] [...] [facility] [address] [place] [address] Juan Jose Li MD [address] [place] [address] [place] [address] documented as of this encounter Visit Diagnoses Not on filedocumented in this encounter Care Teams Hotel Room Attendant Relationship Specialty Start Date End Date Sahra Son MD [address] [id number] PCP - General Internal Medicine 10/28/22 documented as of this encounter
--- OUTSIDE RECORDS SUMMARY | 2024-06-30 09:35 | XMS_ITS | Encounter Summary ---
Author Organization [facility] Address [address] [place] [address] Phone Care Team Providers Care Order Runner Name Role Phone Sahra Son MD Primary Care Provider + Encounter Details Date Type Department Care Team (Late Contact Info) Description 02/04/2024 Orders Only [facility] [address] [place] [address] India Davalos [address] [place] [address] Chronic kidney disease, stage 2 [...] Visit [facility] [address] [place] [address] Juan Jose Li MD [address] [place] [address] [place] [address] documented as of this encounter [...] Glucose 169(H) 70 - 99 mg/dL [facility] BUN 16 8 - 27 mg/dL [facility] Creatinine 1.00 0.57 - 1.00 mg/dL [facility] eGFR CKD-EPI CR 2020 63 >59 mL/min/1.7 3 [facility] BUN/Creatinine Ratio 16 12 - 28 [facility] Sodium 138 134 - 144 mmol/L [facility] Potassium 4.8 3.5 - 5.2 mmol/L [facility] Chloride 100 96 - 106 mmol/L [facility] Bicarbonate (CO2) 22 20 - 29 mmol/L [facility] Calcium 9.1 8.7 - 10.3 mg/dL [facility] Albumin 4.1 3.9 - 4.9 g/dL [facility] Phosphorus 4.2 3.0 - 4.3 mg/dL [facility] Blood (Blood, Venous) 02/22/2024 8:29 AM EDT 02/22/2024 Barry Reyes MD LAB BLOOD ORDERABLES Final Re sult Performing Organization Address City/[facility]/ZIP Co de Phone Number [facility] [address] [place] [address] * Ferritin (02/22/2024 8:29 AM EDT) Ferritin 47 15 - 150 ng/mL [facility] Blood (Blood, Venous) 02/22/2024 8:29 AM EDT 02/22/2024 Barry Reyes MD LAB BLOOD ORDERABLES Final Re sult Performing Organization Address [facility] de Phone Number [facility] [address] [place] [address] * (ABNORMAL) Iron Panel (Fe, TIBC, TSAT) (02/22/2024 8:29 AM EDT) Iron 39 27 - 139 ug/dL [facility] TIBC 310 250 - 450 ug/dL [facility] UIBC 271 118 - 369 ug/dL [facility] Iron Saturation (TSat) 13(L) 15 - 55 % [facility] Blood (Blood, Venous) 02/22/2024 8:29 AM EDT 02/22/2024 Barry Reyes MD LAB BLOOD ORDERABLES Final Re sult Performing Organization Address [facility]/ZIP Co de Phone Number [facility] [address] [place] [address] * (ABNORMAL) CBC and Differential (02/22/2024 8:29 AM EDT) WBC 5.9 3.4 - 10.8 x10E3/uL [facility] RBC 5.33(H) 3.77 - 5.28 x10E6/uL [facility] Hemoglobin 10.3(L) 11.1 - 15.9 g/dL [facility] Hematocrit 35.1 34.0 - 46.6 % [facility] MCV 66(L) 79 - 97 fL [facility] MCH 19.3(L) 26.6 - 33.0 pg [facility] MCHC 29.3(L) 31.5 - 35.7 g/dL [facility] RDW 19.3(H) 11.7 - 15.4 % [facility] Platelets 174 150 - 450 x10E3/uL [facility] Neutrophils Relative 71 Not Estab. % [facility] Lymphocytes Relative 21 Not Estab. % [facility] Monocytes 5 Not Estab. % [facility] Eosinophils Relative 1 Not Estab. % [facility] Basophils Relative 1 Not Estab. % [facility] Neutrophils Absolute 4.2 1.4 - 7.0 x10E3/uL [facility] Lymphocytes Absolute 1.3 0.7 - 3.1 x10E3/uL [facility] Monocytes Absolute 0.3 0.1 - 0.9 x10E3/uL [facility] Eosinophils Absolute 0.1 0.0 - 0.4 x10E3/uL [facility] Basophils Absolute 0.0 0.0 - 0.2 x10E3/uL [facility] Immature Granulocytes 1 Not Estab. % [facility] Immature Grans (Absolute) 0.0 0.0 - 0.1 x10E3/uL [facility] Blood (Blood, Venous) 02/22/2024 8:29 AM EDT 02/22/2024 us Barry Reyes MD LAB BLOOD ORDERABLES Final Re sult [facility] [address] [place] [address] documented in this encounter Visit Diagnoses Diagnosis Chronic kidney disease, stage 2 (mild) Anemia in chronic kidney disease Iron deficiency anemia, not otherwise specified documented in this encounter Care Teams Order Runner Relationship Specialty Start Date End Date Sahra Son MD [address] [place] [address] PCP - General Internal Medicine 10/28/22 documented as of this encounter
--- OUTSIDE RECORDS SUMMARY | 2024-06-30 09:35 | XMS_ITS | Encounter Summary ---
Author Organization [facility] Address [address] [place] [address] Phone Care Team Providers Care Senior Ios Software Engineer Name Role Phone Sahra Son MD Primary Care Provider + Encounter Details Date Type Department Care Team ([facility] Contact Info) Description 09/28/2022 Documentation Only [facility] [address] [place] [address] India Davalos [address] [place] [address] Social History Tobacco Use Types [...] [facility] [address] [place] [address] Juan Jose Li MD [address] [place] [address] [place] [address] documented as of this encounter Visit Diagnoses Not on filedocumented in this encounter Care Teams Senior Ios Software Engineer Relationship Specialty Start Date End Date Sahra Son MD [address] [phone] PCP - General Internal Medicine 10/28/22 documented as of this encounter
--- OUTSIDE RECORDS SUMMARY | 2024-06-30 09:35 | XMS_ITS | Encounter Summary ---
Author Organization [facility] Address [address] [place] [address] Phone Care Team Providers Care Pet Sitting Name Role Phone Sahra Son MD Primary Care Provider + Reason for Visit * Reason Onset Date Comments lab reminder 06/05/2024 Encounter Details Date Type Department Care Team (Late st Contact Info) Description 06/05/2024 Telephone [facility] [address] [place] [phone] Stephanie Azul, LAURITA [address] [place] [address] 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 Lexi reports that pt no showed on 06/01/24. Her next appt is 06/09/24. Pt last had labs drawn on 06/05/24. I left message on Jennifer's phone to get labs drawn by 06/07/24. documented in this encounter Plan of Treatment Upcoming Encounters Date Type Department Care Team (Late st Contact Info) Description 07/04/2024 2:30 PM EST Office Visit [facility], [address] [place] [address] Juan Jose iL MD [address] [place] [address] [place] [phone] documented as of this encounter Visit Diagnoses Not on filedocumented in this encounter Care Teams Pet Sitting Relationship Specialty Start Date End Date Sahra Son MD [address] [phone] PCP - General Internal Medicine 10/28/22 documented as of this encounter
--- OUTSIDE RECORDS SUMMARY | 2024-06-30 09:35 | XMS_ITS | Encounter Summary ---
Author Organization [facility] Address [address] [place] [address] Phone Care Team Providers Care Toddler Guide Name Role Phone Sahra Son MD Primary Care Provider + Encounter Details Date Type Department Care Team (Late Contact Info) Description 06/30/2020 Orders Only [facility] [address] [place] [address] Carol Whelan [address] [place] [address] Iron deficiency anemia, not otherwise [...] Visit [facility] [address] [place] [address] Juan Jose Li MD [address] [place] [address] documented as of this encounter Visit Diagnoses Diagnosis Iron deficiency anemia, not otherwise specified Chronic kidney disease, Stage II (mild) documented in this encounter Care Teams Toddler Guide Relationship Specialty Start Date End Date Sahra Son MD [address] [place] [address] PCP - General Internal Medicine 10/28/22 documented as of this encounter
--- OUTSIDE RECORDS SUMMARY | 2024-06-30 09:35 | XMS_ITS | Encounter Summary ---
Author Organization [facility] Address [address] [place] [address] Phone Care Team Providers Care Landscape Specialist Name Role Phone Sahra Son MD Primary Care Provider + Encounter Details Date Type Department Care Team (Late Contact Info) Description 08/11/2022 Documentation Only [facility] [address] [place] [address] India Davalos [address] [place] [address] Social History Tobacco Use Types [...] [facility] [address] [place] [address] Juan Jose Li MD [address] [place] [address] [place] [address] documented as of this encounter Visit Diagnoses Not on filedocumented in this encounter Care Teams Landscape Specialist Relationship Specialty Start Date End Date Sahra Son MD [address] [phone] PCP - General Internal Medicine 10/28/22 documented as of this encounter
--- OUTSIDE RECORDS SUMMARY | 2024-06-30 09:35 | XMS_ITS | Encounter Summary ---
Author Organization [facility] Address [address] [place] [address] Phone Care Team Providers Care Suspender Cutter Name Role Phone Sahra Son MD Primary Care Provider + Encounter Details Date Type Department Care Team (Late Contact Info) Description 06/22/2022 Documentation Only [facility] [address] [place] [address] India Davalos [address] [place] [address] Social History Tobacco Use Types [...] [facility] [address] [place] [address] Juan Jose Li MD [address] [place] [address] [place] [address] documented as of this encounter Visit Diagnoses Not on filedocumented in this encounter Care Teams Suspender Cutter Relationship Specialty Start Date End Date Sahra Son MD [address] [phone] PCP - General Internal Medicine 10/28/22 documented as of this encounter
--- OUTSIDE RECORDS SUMMARY | 2024-06-30 09:35 | XMS_ITS | Encounter Summary ---
Author Organization [facility] Address [address] [place] [address] Phone Care Team Providers Care Park Ranger Name Role Phone Sahra Son MD Primary Care Provider + Encounter Details Date Type Department Care Team ([facility] Contact Info) Description 09/28/2022 Documentation Only [facility] [address] [place] [address] India Davalos [address] [place] [address] Social History Tobacco Use Types [...] [facility] [address] [place] [address] Juan Jose Li MD [address] [place] [address] [place] [address] documented as of this encounter Visit Diagnoses Not on filedocumented in this encounter Care Teams Park Ranger Relationship Specialty Start Date End Date Sahra Son MD [address] [phone] PCP - General Internal Medicine 10/28/22 documented as of this encounter
--- OUTSIDE RECORDS SUMMARY | 2024-06-30 09:35 | XMS_ITS | Encounter Summary ---
Author Organization [facility] Address [address] [place] [address] Phone Care Team Providers Care Apn Name Role Phone Sahra Son MD Primary Care Provider + Encounter Details Date Type Department Care Team (Late Contact Info) Description 08/11/2022 Documentation Only [facility] [address] [place] [address] India Davalos [address] [place], [place] [...] [facility] [address] [place] [address] Juan Jose Li MD [address] [place] [address] [place] [address] documented as of this encounter Visit Diagnoses Not on filedocumented in this encounter Care Teams Apn Relationship Specialty Start Date End Date Sahra Son MD [address] [phone] PCP - General Internal Medicine 10/28/22 documented as of this encounter
--- OUTSIDE RECORDS SUMMARY | 2024-06-30 09:35 | XMS_ITS | Encounter Summary ---
Author Organization [facility] Address [address] [place] [address] Phone Care Team Providers Care Substation Operator Chief Name Role Phone Sahra Son MD Primary Care Provider + Encounter Details Date Type Department Care Team (Late Contact Info) Description 06/17/2022 Documentation Only [facility] [address] [place] [address] India Davalos [address] [place] [address] Social History Tobacco Use Types [...] Visit [facility] [address] [place] [place] [address] Juan Jose Li MD [address] [place] [address] [place] [address] documented as of this encounter Visit Diagnoses Not on filedocumented in this encounter Care Teams Substation Operator Chief Relationship Specialty Start Date End Date Sahra Son MD [address] [phone] PCP - General Internal Medicine 10/28/22 documented as of this encounter
--- OUTSIDE RECORDS SUMMARY | 2024-06-30 09:35 | XMS_ITS | Encounter Summary ---
Author Organization [facility] Address [address] [place] [address] Phone Care Team Providers Care X Ray Developer Name Role Phone Sahra Son MD Primary Care Provider + Encounter Details Date Type Department Care Team ([facility] Contact Info) Description 09/18/2022 Documentation Only [facility] [address] [place] [address] India Davalos [address] [place] [address] Social History Tobacco Use Types [...] [facility] [address] [place] [address] Juan Jose Li MD [address] [place] [address] [place] [address] documented as of this encounter Visit Diagnoses Not on filedocumented in this encounter Care Teams X Ray Developer Relationship Specialty Start Date End Date Sahra Son MD [address] [phone] PCP - General Internal Medicine 10/28/22 documented as of this encounter
--- OUTSIDE RECORDS SUMMARY | 2024-06-30 09:35 | XMS_ITS | Encounter Summary ---
Author Organization [facility] Address [address] [place] [address] Phone Care Team Providers Care Caption Writer Name Role Phone Sahra Son MD Primary Care Provider + Encounter Details Date Type Department Care Team (Late Contact Info) Description 03/03/2024 Orders Only [facility] [address] [place] [address] India Davalos [address] [place] [address] Chronic kidney disease, stage 2 [...] Visit [facility] [address] [place] [address] Juan Jose Li MD [address] [place] [address] [place] [address] documented as of this encounter [...] Glucose 152(H) 70 - 99 mg/dL [facility] BUN 16 8 - 27 mg/dL [facility] Creatinine 0.98 0.57 - 1.00 mg/dL [facility] eGFR CKD-EPI CR 2020 64 >59 mL/min/1.7 3 [facility] BUN/Creatinine Ratio 16 12 - 28 [facility] Sodium 137 134 - 144 mmol/L [facility] Potassium 4.8 3.5 - 5.2 mmol/L [facility] Chloride 101 96 - 106 mmol/L [facility] Bicarbonate (CO2) 22 20 - 29 mmol/L [facility] Calcium 8.8 8.7 - 10.3 mg/dL [facility] Albumin 4.0 3.9 - 4.9 g/dL [facility] Phosphorus 4.0 3.0 - 4.3 mg/dL [facility] Blood (Blood, Venous) 03/24/2024 10:37 AM EST 03/24/2024 Barry Reyes MD LAB BLOOD ORDERABLES Final Re sult Performing Organization Address City/[facility]/ZIP Co de Phone Number [facility] [address] [place] [address] * Ferritin (03/24/2024 10:37 AM EST) Ferritin 37 15 - 150 ng/mL [facility] Blood (Blood, Venous) 03/24/2024 10:37 AM EST 03/24/2024 Barry Reyes MD LAB BLOOD ORDERABLES Final Re sult Performing Organization Address [facility] de Phone Number [facility] [address] [place] [address] * Iron Panel (Fe, TIBC, TSAT) (03/24/2024 10:37 AM EST) TIBC 293 250 - 450 ug/dL [facility] UIBC 247 118 - 369 ug/dL [facility] Iron 46 27 - 139 ug/dL [facility] Iron Saturation (TSat) 16 15 - 55 % [facility] Blood (Blood, Venous) 03/24/2024 10:37 AM EST 03/24/2024 Barry Reyes MD LAB BLOOD ORDERABLES Final Re sult Performing Organization Address City/[facility]/ZIP Co de Phone Number [facility] [address] [place] [address] * (ABNORMAL) CBC and Differential (03/24/2024 10:37 AM EST) [facility] Signature WBC 6.0 3.4 - 10.8 x10E3/uL [facility] RBC 5.21 3.77 - 5.28 x10E6/uL [facility] Hemoglobin 10.0(L) 11.1 - 15.9 g/dL [facility] Hematocrit 35.3 34.0 - 46.6 % [facility] MCV 68(L) 79 - 97 fL [facility] MCH 19.2(L) 26.6 - 33.0 pg [facility] MCHC 28.3(L) 31.5 - 35.7 g/dL [facility] RDW 19.4(H) 11.7 - 15.4 % [facility] Platelets 186 150 - 450 x10E3/uL [facility] Neutrophils Relative 65 Not Estab. % [facility] Lymphocytes Relative 26 Not Estab. % [facility] Monocytes 6 Not Estab. % [facility] Eosinophils Relative 2 Not Estab. % [facility] Basophils Relative 1 Not Estab. % [facility] Neutrophils Absolute 3.9 1.4 - 7.0 x10E3/uL [facility] Lymphocytes Absolute 1.5 0.7 - 3.1 x10E3/uL [facility] Monocytes Absolute 0.3 0.1 - 0.9 x10E3/uL [facility] Eosinophils Absolute 0.1 0.0 - 0.4 x10E3/uL [facility] Basophils Absolute 0.0 0.0 - 0.2 x10E3/uL [facility] Immature Granulocytes 0 Not Estab. % [facility] Immature Grans (Absolute) 0.0 0.0 - 0.1 x10E3/uL [facility] Blood (Blood, Venous) 03/24/2024 10:37 AM EST 03/24/2024 us Barry Reyes MD LAB BLOOD ORDERABLES Final Re sult [facility] [address] [place] [address] documented in this encounter Visit Diagnoses Diagnosis Chronic kidney disease, stage 2 (mild) Anemia in chronic kidney disease Iron deficiency anemia, not otherwise specified documented in this encounter Care Teams Caption Writer Relationship Specialty Start Date End Date Sahra Son MD [address] [place] [phone] PCP - General Internal Medicine 10/28/22 documented as of this encounter
--- OUTSIDE RECORDS SUMMARY | 2024-06-30 09:35 | XMS_ITS | Encounter Summary ---
Author Organization [facility] Address [address] [place] [address] Phone Care Team Providers Care Track Inspecting Supervisor Name Role Phone Sahra Son MD Primary Care Provider + Encounter Details Date Type Department Care Team (Late Contact Info) Description 04/28/2024 Orders Only [facility] [address] [place] [address] India Davalos [address] [place] [address] Chronic kidney disease, stage 2 [...] [facility] [address] [place] [address] Juan Jose Li MD [address] [place] [address] [place] [address] documented as of this encounter [...] Glucose 153(H) 70 - 99 mg/dL [facility] BUN 17 8 - 27 mg/dL [facility] Creatinine 0.98 0.57 - 1.00 mg/dL [facility] eGFR CKD-EPI CR 2020 64 >59 mL/min/1.7 3 [facility] BUN/Creatinine Ratio 17 12 - 28 [facility] Sodium 142 134 - 144 mmol/L [facility] Potassium 5.0 3.5 - 5.2 mmol/L [facility] Chloride 106 96 - 106 mmol/L [facility] Bicarbonate (CO2) 23 20 - 29 mmol/L [facility] Calcium 8.9 8.7 - 10.3 mg/dL [facility] Albumin 3.9 3.9 - 4.9 g/dL [facility] Phosphorus 3.9 3.0 - 4.3 mg/dL [facility] Blood (Blood, Venous) 05/05/2024 9:18 AM EST 05/05/2024 Barry Reyes MD LAB BLOOD ORDERABLES Final Re sult Performing Organization Address City/[facility]/ZIP Co de Phone Number [facility] [address] [place] [address] * (ABNORMAL) Ferritin (05/05/2024 9:18 AM EST) Ferritin 282(H) 15 - 150 ng/mL [facility] Blood (Blood, Venous) 05/05/2024 9:18 AM EST 05/05/2024 Barry Reyes MD LAB BLOOD ORDERABLES Final Re sult Performing Organization Address City/[facility] de Phone Number [facility] [address] [place] [address] * Iron Panel (Fe, TIBC, TSAT) (05/05/2024 9:18 AM EST) TIBC 277 250 - 450 ug/dL [facility] UIBC 210 118 - 369 ug/dL [facility] Iron 67 27 - 139 ug/dL [facility] Iron Saturation (TSat) 24 15 - 55 % [facility] Blood (Blood, Venous) 05/05/2024 9:18 AM EST 05/05/2024 Barry Reyes MD LAB BLOOD ORDERABLES Final Re sult Performing Organization Address City/[facility]/ZIP Co de [facility] [address] [place] [address] * (ABNORMAL) CBC and Differential (05/05/2024 9:18 AM EST) [facility] WBC 5.6 3.4 - 10.8 x10E3/uL [facility] RBC 5.33(H) 3.77 - 5.28 x10E6/uL [facility] Hemoglobin 10.2(L) 11.1 - 15.9 g/dL [facility] Hematocrit 35.0 34.0 - 46.6 % [facility] MCV 66(L) 79 - 97 fL [facility] MCH 19.1(L) 26.6 - 33.0 pg [facility] MCHC 29.1(L) 31.5 - 35.7 g/dL [facility] RDW 20.1(H) 11.7 - 15.4 % [facility] Platelets 163 150 - 450 x10E3/uL [facility] Neutrophils Relative 64 Not Estab. % [facility] Lymphocytes Relative 26 Not Estab. % [facility] Monocytes 6 Not Estab. % [facility] Eosinophils Relative 3 Not Estab. % [facility] Basophils Relative 1 Not Estab. % [facility] Neutrophils Absolute 3.6 1.4 - 7.0 x10E3/uL [facility] Lymphocytes Absolute 1.5 0.7 - 3.1 x10E3/uL [facility] Monocytes Absolute 0.3 0.1 - 0.9 x10E3/uL [facility] Eosinophils Absolute 0.2 0.0 - 0.4 x10E3/uL [facility] Basophils Absolute 0.0 0.0 - 0.2 x10E3/uL [facility] Immature Granulocytes 0 Not Estab. % [facility] Immature Grans (Absolute) 0.0 0.0 - 0.1 x10E3/uL [facility] Blood (Blood, Venous) 05/05/2024 9:18 AM EST 05/05/2024 us Barry Reyes MD LAB BLOOD ORDERABLES Final Re sult [facility] [address] [place] [address] documented in this encounter Visit Diagnoses Diagnosis Chronic kidney disease, stage 2 (mild) Anemia in chronic kidney disease Iron deficiency anemia, not otherwise specified documented in this encounter Care Teams Track Inspecting Supervisor Relationship Specialty [place] [address] [place] [phone] PCP - General Internal Medicine 10/28/22 documented as of this encounter
--- OUTSIDE RECORDS SUMMARY | 2024-06-30 09:35 | XMS_ITS | Encounter Summary ---
Author Organization [facility] Address [address] [place] [address] Phone Care Team Providers Care Repeater Operator Name Role Phone Sahra Son MD Primary Care Provider + Encounter Details Date Type Department Care Team ([facility] Contact Info) Description 12/31/2023 Documentation Only [facility] [address] [place] [address] India Davalos [address] [place] [address] Social History Tobacco Use Types [...] [facility] [address] [place] [address] Juan Jose Li MD [address] [place] [address] [place] [address] documented as of this encounter Visit Diagnoses Not on filedocumented in this encounter Care Teams Repeater Operator Relationship Specialty Start Date End Date Sahra Son MD [address] [id number] PCP - General Internal Medicine 10/28/22 documented as of this encounter
--- OUTSIDE RECORDS SUMMARY | 2024-06-30 09:36 | XMS_ITS | Encounter Summary ---
Author Organization [facility] Address [address] [place] [address] Phone Care Team Providers Care Kitchen Assistant Name Role Phone Sahra Son MD Primary Care Provider + Encounter Details Date Type Department Care Team (Late st Contact Info) Description 01/31/2024 Orders Only [facility] [address] [place] [address] Arlene Alston PA Chronic kidney [...] Services Of [facility] [address] [place] [address] Juan Jose Li MD [address] [place] [address] [place] [address] documented as of this encounter Visit Diagnoses Diagnosis Chronic kidney disease, stage 2 (mild) Essential (primary) hypertension Iron deficiency anemia, not otherwise specified Type 2 diabetes mellitus, not otherwise specified (HCC) Antiphospholipid syndrome (HCC) documented in this encounter Care Teams Kitchen Assistant Relationship Specialty Start Date End Date Sahra Son MD [address] [place] [address] PCP - General Internal Medicine 10/28/22 documented as of this encounter
--- OUTSIDE RECORDS SUMMARY | 2024-06-30 09:36 | XMS_ITS | Encounter Summary ---
Author Organization [facility] Address [address] [place] [address] Phone Care Team Providers Care Broadcast Director Operations Name Role Phone Sahra Son MD Primary Care Provider + Encounter Details Date Type Department Care Team (Late Contact Info) Description 06/09/2024 Orders Only [facility] [address] [address] India Davalos [address] [place] [address] Anemia in chronic kidney disease; [...] Transplant [facility] [address] [place] [address] Juan Jose Li MD [address] [place] [address] documented as of this encounter Visit Diagnoses Diagnosis Anemia in chronic kidney disease Other iron deficiency anemia Chronic kidney disease, stage 2 (mild) documented in this encounter Care Teams Broadcast Director Operations Relationship Specialty Start Date End Date Cherella, Sahra M, MD [address] [place] [address] PCP - General Internal Medicine 10/28/22 documented as of this encounter
--- OUTSIDE RECORDS SUMMARY | 2024-06-30 09:36 | XMS_ITS | Encounter Summary ---
Author Organization [facility] Address [address] [place] [address] Phone Care Team Providers Care Checker In Name Role Phone Sahra Son MD Primary Care Provider + Encounter Details Date Type Department Care Team ([facility] Contact Info) Description 03/11/2023 Documentation Only [facility] [address] [place] [address] India Davalos [address] [place] [address] Social History Tobacco Use Types [...] [facility] [address] [place] [address] Juan Jose Li MD [address] [place] [address] [place] [address] documented as of this encounter Visit Diagnoses Not on filedocumented in this encounter Care Teams Checker In Relationship Specialty Start Date End Date Sahra Son MD [address] [id number] PCP - General Internal Medicine 10/28/22 documented as of this encounter
--- OUTSIDE RECORDS SUMMARY | 2024-06-30 09:36 | XMS_ITS | Encounter Summary ---
Author Organization [facility] Address [address] [place] [address] Phone Care Team Providers Care Card Dealer Name Role Phone Sahra Son MD Primary Care Provider + Encounter Details Date Type Department Care Team ([facility] Contact Info) Description 11/11/2023 Documentation Only [facility] [address] [place] [address] India Davalos [address] [place] [address] Social History Tobacco Use Types [...] Visit [facility] [address] [place] [address] Juan Jose Li MD [address] [place] [address] [place] [address] documented as of this encounter Visit Diagnoses Not on filedocumented in this encounter Care Teams Card Dealer Relationship Specialty Start Date End Date Sahra Son MD [address] [phone] PCP - General Internal Medicine 10/28/22 documented as of this encounter
--- OUTSIDE RECORDS SUMMARY | 2024-06-30 09:36 | XMS_ITS | Encounter Summary ---
Author Organization [facility] Address [address] [place] [address] Phone Care Team Providers Care Handy Man Name Role Phone Sahra Son MD Primary Care Provider + Encounter Details Date Type Department Care Team ([facility] Contact Info) Description 11/05/2023 Documentation Only [facility] [address] [place] [address] India Davalos [address] [place] [address] Social History Tobacco Use Types [...] [facility] [address] [place] [address] Juan Jose Li MD [address] [place] [address] [place] [address] documented as of this encounter Visit Diagnoses Not on filedocumented in this encounter Care Teams Handy Man Relationship Specialty Start Date End Date Sahra Son MD [address] [phone] PCP - General Internal Medicine 10/28/22 documented as of this encounter
--- OUTSIDE RECORDS SUMMARY | 2024-06-30 09:36 | XMS_ITS | Encounter Summary ---
Author Organization [facility] Address [address] [place] [address] Phone Care Team Providers Care Trimmer Machine Operator Name Role Phone Sahra Son MD Primary Care Provider + Encounter Details Date Type Department Care Team ([facility] Contact Info) Description 04/08/2022 Documentation Only [facility] [address] [place] [address] India Davalos [address] [place] [address] Social History Tobacco Use Types [...] Visit [facility] [address] [place] [address] Juan Jose Li MD [address] [place] [address] [place] [address] documented as of this encounter Visit Diagnoses Not on filedocumented in this encounter Care Teams Trimmer Machine Operator Relationship Specialty Start Date End Date Sahra Son MD [address] [phone] PCP - General Internal Medicine 10/28/22 documented as of this encounter
--- OUTSIDE RECORDS SUMMARY | 2024-06-30 09:36 | XMS_ITS | Encounter Summary ---
Author Organization [facility] Address [address] [place] [address] Phone Care Team Providers Care Stone Rubber Name Role Phone Sahra Son MD Primary Care Provider + Encounter Details Date Type Department Care Team (Late Contact Info) Description 11/21/2021 Documentation Only [facility] [address] [place] [address] India Davalos [address] [place] [address] Social History Tobacco Use Types [...] [facility] [address] [place] [address] Juan Jose Li MD [address] [place] [address] [place] [address] documented as of this encounter Visit Diagnoses Not on filedocumented in this encounter Care Teams Stone Rubber Relationship Specialty Start Date End Date Sahra Son MD [address] [phone] PCP - General Internal Medicine 10/28/22 documented as of this encounter
--- OUTSIDE RECORDS SUMMARY | 2024-06-30 09:36 | XMS_ITS | Encounter Summary ---
Author Organization [facility] Address [address] [place] [address] Phone Care Team Providers Care Cryptologic Technician Operator/Analyst Name Role Phone Sahra Son MD Primary Care Provider + Encounter Details Date Type Department Care Team (Late Contact Info) Description 11/19/2023 Documentation Only [facility] [address] [place] [address] India Davalos [address] [place] [address] Social History Tobacco Use Types [...] [facility] [address] [place] [address] Juan Jose Li MD [address] [place] [address] [place] [address] documented as of this encounter Visit Diagnoses Not on filedocumented in this encounter Care Teams Cryptologic Technician Operator/Analyst Relationship Specialty Start Date End Date Sahra Son MD [address] [phone] PCP - General Internal Medicine 10/28/22 documented as of this encounter
--- OUTSIDE RECORDS SUMMARY | 2024-06-30 09:36 | XMS_ITS | Encounter Summary ---
Author Organization [facility] Address [address] [place] [address] Phone Care Team Providers Care Executive Associate Name Role Phone Sahra Son MD Primary Care Provider + Encounter Details Date Type Department Care Team ([facility] Contact Info) Description 04/14/2022 Documentation Only [facility] [address] [place] [address] India Davalos [address] [place] [address] Social History Tobacco Use [...] [facility] [address] [place] [address] Juan Jose Li MD [address] [place] [address] [place] [address] documented as of this encounter Visit Diagnoses Not on filedocumented in this encounter Care Teams Executive Associate Relationship Specialty Start Date End Date Sahra Son MD [address] [phone] PCP - General Internal Medicine 10/28/22 documented as of this encounter
--- OUTSIDE RECORDS SUMMARY | 2024-06-30 09:36 | XMS_ITS | Encounter Summary ---
Author Organization [facility] Address [address] [place] [address] Phone Care Team Providers Care Senior Technical Editor Name Role Phone Sahra Son MD Primary Care Provider + Encounter Details Date Type Department Care Team ([facility] Contact Info) Description 11/11/2023 Documentation Only [facility] [address] [place] [address] India Davalos [address] [place] [address] Social History Tobacco Use Types [...] [facility] [address] [place] [address] Juan Jose Li MD [address] [place] [address] [place] [address] documented as of this encounter Visit Diagnoses Not on filedocumented in this encounter Care Teams Senior Technical Editor Relationship Specialty Start Date End Date Sahra Son MD [address] [phone] PCP - General Internal Medicine 10/28/22 documented as of this encounter
--- OUTSIDE RECORDS SUMMARY | 2024-06-30 09:36 | XMS_ITS | Encounter Summary ---
Author Organization [facility] Address [address] [place] [address] Phone Care Team Providers Care Podiatry Doctor Name Role Phone Sahra Son MD Primary Care Provider + Encounter Details Date Type Department Care Team ([facility] Contact Info) Description 11/11/2023 Documentation Only [facility] [address] [place] [address] India Davalos [address] [place] [address] Social History Tobacco Use Types [...] [facility] [address] [place] [address] Juan Jose Li MD [address] [place] [address] [place] [address] documented as of this encounter Visit Diagnoses Not on filedocumented in this encounter Care Teams Podiatry Doctor Relationship Specialty Start Date End Date Sahra Son MD [address] [phone] PCP - General Internal Medicine 10/28/22 documented as of this encounter
--- OUTSIDE RECORDS SUMMARY | 2024-06-30 09:36 | XMS_ITS | Encounter Summary ---
Author Organization [facility] Address [address] [place] [address] Phone Care Team Providers Care Manager Spanish Name Role Phone Sahra Son MD Primary Care Provider + Encounter Details Date Type Department Care Team ([facility] Contact Info) Description 11/11/2023 Documentation Only [facility] [address] [place] [address] India Davalos [address] [place] [address] Social History Tobacco Use Types [...] [facility] [address] [place] [address] Juan Jose Li MD [address] [place] [address] [place] [address] documented as of this encounter Visit Diagnoses Not on filedocumented in this encounter Care Teams Manager Spanish Relationship Specialty Start Date End Date Sahra Son MD [address] [phone] PCP - General Internal Medicine 10/28/22 documented as of this encounter
--- OUTSIDE RECORDS SUMMARY | 2024-06-30 09:36 | XMS_ITS | Encounter Summary ---
Author Organization [facility] Address [address] [place] [address] Phone Care Team Providers Care Home Care Coordinator Name Role Phone Sahra Son MD Primary Care Provider + Encounter Details Date Type Department Care Team ([facility] Contact Info) Description 01/06/2022 Documentation Only [facility] [address] [place] [address] Juan Jose Li MD [address] [place] [address] [place] [address] Social History Tobacco Use Types [...] [facility] [address] [place] [address] Juan Jose Li MD [address] [place] [address] [place] [address] documented as of this encounter Visit Diagnoses Not on filedocumented in this encounter Care Teams Home Care Coordinator Relationship Specialty Start Date End Date Sahra Son MD [address] [address] PCP - General Internal Medicine 10/28/22 documented as of this encounter
--- OUTSIDE RECORDS SUMMARY | 2024-06-30 09:36 | XMS_ITS | Encounter Summary ---
Author Organization [facility] Address [address] [place] [address] Phone Care Team Providers Care Draw Tender Name Role Phone Sahra Son MD Primary Care Provider + Encounter Details Date Type Department Care Team ([facility] Contact Info) Description 12/23/2021 Documentation Only [facility] [address] [place] [address] Juan Jose Li MD [address] [place] [address] [place] [address] Social History Tobacco Use [...] [facility] [address] [place] [address] Juan Jose Li MD [address] [place] [address] [place] [address] documented as of this encounter Visit Diagnoses Not on filedocumented in this encounter Care Teams Draw Tender Relationship Specialty Start Date End Date Sahra Son MD [address] [id number] PCP - General Internal Medicine 10/28/22 documented as of this encounter
--- OUTSIDE RECORDS SUMMARY | 2024-06-30 09:36 | XMS_ITS | Encounter Summary ---
Author Organization [facility] Address [address] [place] [address] Phone Care Team Providers Care Metal Precision Machine Assembler Name Role Phone Sahra Son MD Primary Care Provider + Encounter Details Date Type Department Care Team ([facility] Contact Info) Description 01/04/2024 Documentation Only [facility] [address] [place] [address] India Davalos [address] [place] [address] Social History Tobacco Use Types [...] [facility] [address] [place] [address] Juan Jose Li MD [address] [place] [address] [place] [address] documented as of this encounter Visit Diagnoses Not on filedocumented in this encounter Care Teams Metal Precision Machine Assembler Relationship Specialty Start Date End Date Sahra Son MD [address] [phone] PCP - General Internal Medicine 10/28/22 documented as of this encounter
--- OUTSIDE RECORDS SUMMARY | 2024-06-30 09:36 | XMS_ITS | Encounter Summary ---
Author Organization [facility] Address [address] [place] [address] Phone Care Team Providers Care Criminal Justice Professor Name Role Phone Sahra Son MD Primary Care Provider + Encounter Details Date Type Department Care Team ([facility] Contact Info) Description 11/11/2023 Documentation Only [facility] [address] [place] [address] India Davalos [address] [place] [address] Social History Tobacco Use Types [...] [facility] [address] [place] [address] Juan Jose Li MD [address] [place] [address] [place] [address] documented as of this encounter Visit Diagnoses Not on filedocumented in this encounter Care Teams Criminal Justice Professor Relationship Specialty Start Date End Date Sahra Son MD [address] [phone] PCP - General Internal Medicine 10/28/22 documented as of this encounter
--- OUTSIDE RECORDS SUMMARY | 2024-06-30 09:36 | XMS_ITS | Encounter Summary ---
Author Organization [facility] Address [address] [place] [address] Phone Care Team Providers Care Medical Billing Manager Name Role Phone Sahra Son MD Primary Care Provider + Encounter Details Date Type Department Care Team (Late Contact Info) Description 05/17/2023 Orders Only [facility] [address] [place] [address] Arlene Alston PA Chronic kidney [...] [facility] [address] [place] [address] Juan Jose Li MD [address] [place] [address] [place] [address] documented as of this encounter [...] (Fe, TIBC, TSAT) (06/08/2023 8:36 AM EST) [facility] Iron 49 (30-160) MCG/DL [facility] UIBC 246 (110-370) MCG/DL [facility] TIBC 295 (140-530) MCG/DL [facility] Iron Saturation (TSat) 17(L) (20-55) % [facility] Comment: Testing performed or reported by [facility], a Service of [address] [address] Luis A Bailey MD, Club Steward CLIA# [id number] Blood (Blood, Venous) 06/08/2023 8:36 AM EST 06/08/2023 8:39 AM EST Arlene CARTER LAB BLOOD ORDERABLES Final Re sult Performing Organization Address [facility] de Phone Number [facility] * Vitamin D 25 hydroxy (06/08/2023 8:36 AM EST) Pathologist [facility] Vitamin D, 25-Hydroxy 24.8 (20-50) NG/ML [facility] Comment: Testing performed or reported by [facility], a Service of [address] [address] Luis A Bailey MD, Club Steward CLIA# [id number] Blood (Blood, Venous) 06/08/2023 8:36 AM EST 06/08/2023 8:39 AM EST Arlene CARTER LAB BLOOD ORDERABLES Final Re sult Performing Organization Address [facility] de Phone Number [facility] * (ABNORMAL) Renal function panel (06/08/2023 8:36 AM EST) Glucose 166(H) (70-99) MG/DL [facility] BUN 19 (8-23) MG/DL [facility] Creatinine 1.0 (0.5-1.0) MG/DL [facility] Sodium 138 (133-145) MMOL/L [facility] Potassium 4.9 (3.6-5.2) MMOL/L [facility] Chloride 101 (98-107) MMOL/L [facility] Bicarbonate (CO2) 27 (22-29) MMOL/L [facility] Anion Gap 10 (4-17) [facility] Albumin 4.2 (3.4-4.8) GM/DL [facility] Calcium 9.1 (8.6-10.5) MG/DL [facility] Phosphorus, Serum 3.4 (2.5-4.5) MG/DL [facility] Est GFR Non 66 ML/MIN/1.7 3 M2 [facility] Comment: Creatinine based estimated glomerular filtration (eGFR) in adults is calculated using the National Kidney Foundation recommended 2020 CKD-EPI equation. Estimates GFR from serum creatinine, age and sex. Testing performed or reported by [facility], a Service of [address] [address] Luis A Bailey MD, Club Steward CLIA# [id number] Blood (Blood, Venous) 06/08/2023 8:36 AM EST 06/08/2023 8:39 AM EST Arlene CARTER LAB BLOOD ORDERABLES Final Re sult Performing Organization Address [facility] de Phone Number [facility] * Magnesium (06/08/2023 8:36 AM EST) Magnesium 2.1 (1.6-2.3) mg/dL [facility] Comment: Testing performed or reported by [facility], a Service of [facility], [address] [place] [address] Luis A Bailey MD, Club Steward CLIA# [id number] Blood (Blood, Venous) 06/08/2023 8:36 AM EST 06/08/2023 8:39 AM EST Arlene CARTER LAB BLOOD ORDERABLES Final Re sult Performing Organization Address [facility] de Phone Number [facility] * (ABNORMAL) Hemoglobin A1c (06/08/2023 8:36 AM EST) Hemoglobin A1C 7.2(H) (4.0-5.6) % [facility] Comment: MONITORING: In known diabetic patients, hemoglobin A1c targets should be discussed with health care provider. DIAGNOSTIC USE: ??The [place] Diabetes [employer] (ADA) and the World Health [...] Supplement 1 Testing performed or reported by [facility], a Service of [facility], [address] [place] [address] Luis A Bailey MD, Club Steward [facility]# [id number] Blood (Blood, Venous) 06/08/2023 8:36 AM EST 06/08/2023 8:38 AM EST us Arlene CARTER LAB BLOOD ORDERABLES Final Re sult [facility] * (ABNORMAL) CBC and differential (06/08/2023 8:36 AM EST) White Blood Cells 5.2 (4.0-11.0 ) K/MM3 [facility] RBC 5.08 (4.20-5.4 0) M/MM3 [facility] Hgb 10.1(L) (11.7-15. 5) GM/DL [facility] Hematocrit 32.9(L) (35.7-45. 8) % [facility] MCV 64.8(L) (80.0-100 .0) [place] [facility] MCH 19.9(L) (27.0-34. 0) PG [facility] MCHC 30.7(L) (33.0-37. 0) g/dL [facility] Platelets 191 (150-460) K/MM3 [facility] RDW-SD 40.3 (<47.0) [place] [facility] MPV NOT MEASURED (9.4-12.4 ) [place] [facility] nRBC Count 0.0 #/100 WBC'S [facility] NRBC Absolute 0.0 K/MM3 [facility] Neutrophils Abs Auto 3.5 (1.3-7.0) K/MM3 [facility] Lymphocytes Relative 1.3 (0.8-3.1) K/MM3 [facility] Monocytes 0.3(L) (0.4-0.9) K/MM3 [facility] Eosinophils Relative 0.1 (0.0-0.4) K/MM3 [facility] Basophil ABS 0.0 (0.0-0.1) K/MM3 [facility] Granulocytes Absolute 0.0 K/MM3 [facility] Neutrophils % Auto 67.3 (44-76) % [facility] Lymphs 24.0 (15-43) % [facility] Monocytes Absolute 5.8 (4.5-10.5 ) % [facility] Eosinophils 1.7 (0-6) % [facility] Basophils Relative 0.8 (0-2) % [facility] Immature Granulocytes 0.4 % [facility] Comment: Testing performed or reported by [facility], a Service of [facility], [address] [place] [address] Luis A Bailey MD, Club Steward [facility]# [id number] Blood (Blood, Venous) 06/08/2023 8:36 AM EST 06/08/2023 8:38 AM EST Arlene CARTER LAB BLOOD ORDERABLES Final Re sult [facility] documented in this encounter Visit Diagnoses Diagnosis Chronic kidney disease, stage 2 (mild) Essential (primary) hypertension Anemia in chronic kidney disease Antiphospholipid syndrome (HCC) Type 2 diabetes mellitus, not otherwise specified (HCC) Bleeding hemorrhoids documented in this encounter Care Teams Medical Billing Manager Relationship Specialty Start Date End Date Sahra Son MD [address] [phone] PCP - General Internal Medicine 10/28/22 documented as of this encounter
--- OUTSIDE RECORDS SUMMARY | 2024-06-30 09:36 | XMS_ITS | Encounter Summary ---
Author Organization [facility] Address [address] [place] [address] Phone Care Team Providers Care Concrete Saw Operator Name Role Phone Sahra Son MD Primary Care Provider + Encounter Details Date Type Department Care Team ([facility] Contact Info) Description 03/11/2023 Documentation Only [facility] [address] [place] [address] India Davalos [address] [place], [place] [...] [facility] [address] [place] [address] Juan Jose Li MD [address] [place] [address] [place] [address] documented as of this encounter Visit Diagnoses Not on filedocumented in this encounter Care Teams Concrete Saw Operator Relationship Specialty Start Date End Date Sahra Son MD [address] [id number] PCP - General Internal Medicine 10/28/22 documented as of this encounter
--- OUTSIDE RECORDS SUMMARY | 2024-06-30 09:36 | XMS_ITS | Encounter Summary ---
Author Organization [facility] Address [address] [place] [address] Phone Care Team Providers Care Case Maker Name Role Phone Sahra Son MD Primary Care Provider + Encounter Details Date Type Department Care Team (Late Contact Info) Description 11/30/2023 Documentation Only [facility] [address] [place] [address] India Davalos [address] [place] [address] Social History Tobacco Use Types [...] [facility] [address] [place] [address] Juan Jose Li MD [address] [place] [address] [place] [address] documented as of this encounter Visit Diagnoses Not on filedocumented in this encounter Care Teams Case Maker Relationship Specialty Start Date End Date Sahra Son MD [address] [phone] PCP - General Internal Medicine 10/28/22 documented as of this encounter
--- OUTSIDE RECORDS SUMMARY | 2024-06-30 09:36 | XMS_ITS | Encounter Summary ---
Author Organization [facility] Address [address] [place] [address] Phone Care Team Providers Care Filenet Admin Name Role Phone Sahra Son MD Primary Care Provider + Encounter Details Date Type Department Care Team (Late Contact Info) Description 08/22/2021 Documentation Only [facility] [address] [place] [address] India Davalos [address] [place] [address] Social History Tobacco Use [...] [facility] [address] [place] [address] Juan Jose Li MD [address] [place] [address] [place] [address] documented as of this encounter Visit Diagnoses Not on filedocumented in this encounter Care Teams Filenet Admin Relationship Specialty Start Date End Date Sahra Son MD [address] [phone] PCP - General Internal Medicine 10/28/22 documented as of this encounter
--- OUTSIDE RECORDS SUMMARY | 2024-06-30 09:36 | XMS_ITS | Encounter Summary ---
Author Organization [facility] Address [address] [place] [address] Phone Care Team Providers Care Rehabilitation Services Director Name Role Phone Sahra Son MD Primary Care Provider + Encounter Details Date Type Department Care Team (Late Contact Info) Description 11/17/2023 Documentation Only [facility] [address] [place] [address] India Davalos [address] [place] [address] Social History Tobacco Use Types [...] [facility] [address] [place] [address] Juan Jose Li MD [address] [place] [address] [place] [address] documented as of this encounter Visit Diagnoses Not on filedocumented in this encounter Care Teams Rehabilitation Services Director Relationship Specialty Start Date End Date Sahra Son MD [address] [phone] PCP - General Internal Medicine 10/28/22 documented as of this encounter
--- OUTSIDE RECORDS SUMMARY | 2024-06-30 09:36 | XMS_ITS | Encounter Summary ---
Author Organization [facility] Address [address] [place] [address] Phone Care Team Providers Care Milking Machine Operator Name Role Phone Sahra Son MD Primary Care Provider + Encounter Details Date Type Department Care Team ([facility] Contact Info) Description 03/11/2023 Documentation Only [facility] [address] [place] [address] India Davalos [address] [place] [address] Social History Tobacco Use Types [...] [facility] [address] [place] [address] Juan Jose Li MD [address] [place] [address] [place] [address] documented as of this encounter Visit Diagnoses Not on filedocumented in this encounter Care Teams Milking Machine Operator Relationship Specialty Start Date End Date Sahra Son MD [address] [phone] PCP - General Internal Medicine 10/28/22 documented as of this encounter
--- OUTSIDE RECORDS SUMMARY | 2024-06-30 09:36 | XMS_ITS | Encounter Summary ---
Author Organization [facility] Address [address] [place] [address] Phone Care Team Providers Care Dashboard Developer Name Role Phone Sahra Son MD Primary Care Provider + Encounter Details Date Type Department Care Team ([facility] Contact Info) Description 11/11/2023 Documentation Only [facility] [address] [place] [address] India Davalos [address] [place] [address] Social History Tobacco Use Types [...] [facility] [address] [place] [address] Juan Jose Li MD [address] [place] [address] [place] [address] documented as of this encounter Visit Diagnoses Not on filedocumented in this encounter Care Teams Dashboard Developer Relationship Specialty Start Date End Date Sahra Son MD [address] [phone] PCP - General Internal Medicine 10/28/22 documented as of this encounter
--- OUTSIDE RECORDS SUMMARY | 2024-06-30 09:37 | XMS_ITS | Encounter Summary ---
Author Organization [facility] Address [address] [place] [address] Phone Care Team Providers Care Raw Stock Machine Loader Name Role Phone Sahra Son MD Primary Care Provider + Encounter Details Date Type Department Care Team (Late Contact Info) Description 07/16/2023 Documentation Only [facility] [address] [place] [place] [address] India Davalos [address] [place] [address] Social History Tobacco Use Types [...] [facility] [address] [place] [address] Juan Jose Li MD [address] [place] [address] [place] [address] documented as of this encounter Visit Diagnoses Not on filedocumented in this encounter Care Teams Raw Stock Machine Loader Relationship Specialty Start Date End Date Sahra Son MD [address] [phone] PCP - General Internal Medicine 10/28/22 documented as of this encounter
--- OUTSIDE RECORDS SUMMARY | 2024-06-30 09:37 | XMS_ITS | Encounter Summary ---
Author Organization [facility] Address [address] [place] [address] Phone Care Team Providers Care Analytic Programmer Name Role Phone Sahra Son MD Primary Care Provider + Encounter Details Date Type Department Care Team ([facility] Contact Info) Description 07/03/2021 Documentation Only [facility] [address] [place] [address] Juan Jose Li MD [address] [place] [address] [place] [address] Social History Tobacco Use Types [...] [facility] [address] [place] [address] Juan Jose Li MD [address] [place] [address] [place] [address] documented as of this encounter Visit Diagnoses Not on filedocumented in this encounter Care Teams Analytic Programmer Relationship Specialty [place] [address] [place] [id number] PCP - General Internal Medicine 10/28/22 documented as of this encounter
--- OUTSIDE RECORDS SUMMARY | 2024-06-30 09:37 | XMS_ITS | Encounter Summary ---
Author Organization [facility] Address [address] [place] [address] Phone Care Team Providers Care Electric Motor Repairing Supervisor Name Role Phone Sahra Son MD Primary Care Provider + Encounter Details Date Type Department Care Team ([facility] Contact Info) Description 10/07/2021 Documentation Only [facility] [address] [place] [address] India Davalos [address] [place] [address] Social History Tobacco Use [...] [facility] [address] [place] [address] Juan Jose Li MD [address] [place] [address] [place] [address] documented as of this encounter Visit Diagnoses Not on filedocumented in this encounter Care Teams Electric Motor Repairing Supervisor Relationship Specialty Start Date End Date Sahra Son MD [address] [phone] PCP - General Internal Medicine 10/28/22 documented as of this encounter
--- OUTSIDE RECORDS SUMMARY | 2024-06-30 09:37 | XMS_ITS | Encounter Summary ---
Author Organization [facility] Address [address] [place] [address] Phone Care Team Providers Care Daylight Driller Name Role Phone Sahra Son MD Primary Care Provider + Encounter Details Date Type Department Care Team (Late Contact Info) Description 06/09/2023 Documentation Only [facility] [address] [place] [address] India Davalos [address] [place], [...] [facility] [address] [place] [address] Juan Jose Li MD [address] [place] [address] [place] [address] documented as of this encounter Visit Diagnoses Not on filedocumented in this encounter Care Teams Daylight Driller Relationship Specialty Start Date End Date Sahra Son MD [address] [phone] PCP - General Internal Medicine 10/28/22 documented as of this encounter
--- OUTSIDE RECORDS SUMMARY | 2024-06-30 09:37 | XMS_ITS | Encounter Summary ---
Author Organization [facility] Address [address] [place] [address] Phone Care Team Providers Care Front End Developer Name Role Phone Sahra Son MD Primary Care Provider + Encounter Details Date Type Department Care Team ([facility] Contact Info) Description 01/29/2023 Documentation Only [facility] [address] [place] [address] India Davalos [address] [place] [address] Social History Tobacco Use Types [...] [facility] [address] [place] [address] Juan Jose Li MD [address] [place] [address] [place] [address] documented as of this encounter Visit Diagnoses Not on filedocumented in this encounter Care Teams Front End Developer Relationship Specialty Start Date End Date Sahra Son MD [address] [phone] PCP - General Internal Medicine 10/28/22 documented as of this encounter
--- OUTSIDE RECORDS SUMMARY | 2024-06-30 09:37 | XMS_ITS | Encounter Summary ---
Author Organization [facility] Address [address] [place] [address] Phone Care Team Providers Care Stippler Name Role Phone Sahra Son MD Primary Care Provider + Encounter Details Date Type Department Care Team (Late Contact Info) Description 08/09/2023 Documentation Only [facility] [address] [place] [address] India Davalos [address] [place] [address] Social History Tobacco Use Types [...] [facility] [address] [place] [address] Juan Jose Li MD [address] [place] [address] [place] [address] documented as of this encounter Visit Diagnoses Not on filedocumented in this encounter Care Teams Stippler Relationship Specialty Start Date End Date Sahra Son MD [address] [phone] PCP - General Internal Medicine 10/28/22 documented as of this encounter
--- OUTSIDE RECORDS SUMMARY | 2024-06-30 09:37 | XMS_ITS | Encounter Summary ---
Author Organization [facility] Address [address] [place] [address] Phone Care Team Providers Care Liberal Arts Dean Name Role Phone Sahra Son MD Primary Care Provider + Encounter Details Date Type Department Care Team (Late Contact Info) Description 05/26/2024 Orders Only [facility] [address] [place] [address] India Davalos [address] [place] [address] Chronic kidney disease, stage 2 [...] Visit [facility] [address] [place] [address] Juan Jose Li MD [address] [place] [address] [place] [address] documented as of this encounter [...] Glucose 168(H) 70 - 99 mg/dL [facility] BUN 17 8 - 27 mg/dL [facility] Creatinine 1.09(H) 0.57 - 1.00 mg/dL [facility] eGFR CKD-EPI CR 2020 57(L) >59 mL/min/1.7 3 [facility] BUN/Creatinine Ratio 16 12 - 28 [facility] Sodium 137 134 - 144 mmol/L [facility] Potassium 4.8 3.5 - 5.2 mmol/L [facility] Chloride 99 96 - 106 mmol/L [facility] Bicarbonate (CO2) 23 20 - 29 mmol/L [facility] Calcium 9.0 8.7 - 10.3 mg/dL [facility] Albumin 4.2 3.9 - 4.9 g/dL [facility] Phosphorus 4.4(H) 3.0 - 4.3 mg/dL [facility] Blood (Blood, Venous) 06/07/2024 11:53 AM EST 06/07/2024 Barry Reyes MD LAB BLOOD ORDERABLES Final Re sult Performing Organization Address City/[facility]/ZIP Co de Phone Number [facility] [address] [place] [address] * Ferritin (06/07/2024 11:53 AM EST) Ferritin 102 15 - 150 ng/mL [facility] Blood (Blood, Venous) 06/07/2024 11:53 AM EST 06/07/2024 Barry Reyes MD LAB BLOOD ORDERABLES Final Re sult Performing Organization Address [facility] de Phone Number [facility] [address] [place] [address] * Iron Panel (Fe, TIBC, TSAT) (06/07/2024 11:53 AM EST) TIBC 262 250 - 450 ug/dL [facility] UIBC 205 118 - 369 ug/dL [facility] Iron 57 27 - 139 ug/dL [facility] Iron Saturation (TSat) 22 15 - 55 % [facility] Blood (Blood, Venous) 06/07/2024 11:53 AM EST 06/07/2024 Barry Reyes MD LAB BLOOD ORDERABLES Final Re sult Performing Organization Address City/[facility]/ZIP Co de Phone Number [facility] [address] [place] [address] * (ABNORMAL) CBC and Differential (06/07/2024 11:53 AM EST) [facility] WBC 5.5 3.4 - 10.8 x10E3/uL [facility] RBC 5.76(H) 3.77 - 5.28 x10E6/uL [facility] Hemoglobin 11.1 11.1 - 15.9 g/dL [facility] Hematocrit 38.4 34.0 - 46.6 % [facility] MCV 67(L) 79 - 97 fL [facility] MCH 19.3(L) 26.6 - 33.0 pg [facility] MCHC 28.9(L) 31.5 - 35.7 g/dL [facility] RDW 18.8(H) 11.7 - 15.4 % [facility] Platelets 162 150 - 450 x10E3/uL [facility] Neutrophils Relative 59 Not Estab. % [facility] Lymphocytes Relative 31 Not Estab. % [facility] Monocytes 6 Not Estab. % [facility] Eosinophils Relative 2 Not Estab. % [facility] Basophils Relative 1 Not Estab. % [facility] Neutrophils Absolute 3.3 1.4 - 7.0 x10E3/uL [facility] Lymphocytes Absolute 1.7 0.7 - 3.1 x10E3/uL [facility] Monocytes Absolute 0.3 0.1 - 0.9 x10E3/uL [facility] Eosinophils Absolute 0.1 0.0 - 0.4 x10E3/uL [facility] Basophils Absolute 0.0 0.0 - 0.2 x10E3/uL [facility] Immature Granulocytes 1 Not Estab. % [facility] Immature Grans (Absolute) 0.0 0.0 - 0.1 x10E3/uL [facility] Blood (Blood, Venous) 06/07/2024 11:53 AM EST 06/07/2024 us Barry Reyes MD LAB BLOOD ORDERABLES Final Re sult [facility] [address] [place] [address] documented in this encounter Visit Diagnoses Diagnosis Chronic kidney disease, stage 2 (mild) Anemia in chronic kidney disease Iron deficiency anemia, not otherwise specified documented in this encounter Care Teams Liberal Arts Dean Relationship Specialty [place] [address] [place] [address] PCP - General Internal Medicine 10/28/22 documented as of this encounter
--- OUTSIDE RECORDS SUMMARY | 2024-06-30 09:37 | XMS_ITS | Encounter Summary ---
Author Organization [facility] Address [address] [place] [address] Phone Care Team Providers Care Dupligraph Operator Name Role Phone Sahra Son MD Primary Care Provider + Encounter Details Date Type Department Care Team ([facility] Contact Info) Description 02/01/2023 Documentation Only [facility] [address] [place] [address] India Davalos [address] [place] [address] Social History Tobacco Use Types [...] [facility] [address] [place] [address] Juan Jose Li MD [address] [place] [address] [place] [address] documented as of this encounter Visit Diagnoses Not on filedocumented in this encounter Care Teams Dupligraph Operator Relationship Specialty Start Date End Date Sahra Son MD [address] [phone] PCP - General Internal Medicine 10/28/22 documented as of this encounter
--- OUTSIDE RECORDS SUMMARY | 2024-06-30 09:37 | XMS_ITS | Encounter Summary ---
Author Organization [facility] Address [address] [place] [address] Phone Care Team Providers Care Kettle Coordinator Name Role Phone Sahra Son MD Primary Care Provider + Encounter Details Date Type Department Care Team ([facility] Contact Info) Description 01/29/2023 Documentation Only [facility] [address] [place] [address] India Davalos [address] [place] [address] Social History Tobacco Use Types [...] [facility] [address] [place] [address] Juan Jose Li MD [address] [place] [address] [place] [address] documented as of this encounter Visit Diagnoses Not on filedocumented in this encounter Care Teams Kettle Coordinator Relationship Specialty Start Date End Date Sahra Son MD [address] [phone] PCP - General Internal Medicine 10/28/22 documented as of this encounter
--- OUTSIDE RECORDS SUMMARY | 2024-06-30 09:37 | XMS_ITS | Encounter Summary ---
Author Organization [facility] Address [address] [place] [address] Phone Care Team Providers Care Anthropology Professor Name Role Phone Sahra Son MD Primary Care Provider + Encounter Details Date Type Department Care Team (Late Contact Info) Description 06/25/2021 Documentation Only [facility] [address] [place] [address] India Davalos [address] [place] [address] Social History Tobacco Use Types [...] [facility] [address] [place] [address] Juan Jose Li MD [address] [place] [address] [place] [address] documented as of this encounter Visit Diagnoses Not on filedocumented in this encounter Care Teams Anthropology Professor Relationship Specialty Start Date End Date Sahra Son MD [address] [phone] PCP - General Internal Medicine 10/28/22 documented as of this encounter
--- OUTSIDE RECORDS SUMMARY | 2024-06-30 09:37 | XMS_ITS | Clinical Summary ---
Author Organization [facility] [place], Address [address] [place] [address] [place] [address] Phone Care Team Providers Care Operations Lead Name Role Phone Sahra Son MD Primary Care Provider + Allergies Active Allergy Reactions Criticality Noted Date Comments Codeine 12/26/2012 Ferumoxytol Shortness of breath,Itching,Other (see comments) High 02/27/2022 Bones hurt Iodinated Contrast Media 07/06/2022 Penicillins 12/26/2012 Other Shellfish Allergy 12/26/2012 Tramadol 07/06/2022 Trazodone 03/08/2018 Iron Sucrose 02/29/2024 Coughing fit infusion stopped at [facility] Medications Cymbalta [address] capsule TK 2 CS PO QAM 12/28/19 20 Active LORazepam (ATIVAN) 1 MG tablet TK 1 T PO BID 12/24/19 20 Active meclizine (ANTIVERT) 25 MG tablet TK 1 T PO TID PRN 12/24/19 20 Active montelukast (SINGULAIR) 10 MG tablet TK 1 T PO QD IN THE DARCY 11/19/19 20 Active Creon [address]8731-65[address] units capsule TK ONE C PO TID [...] Encounters Date Type Department Care Team Description 06/23/2024 Orders Only [facility] [address] [place] [address] India Davalos Chronic kidney disease, stage 2 (mild); Anemia in chronic kidney disease; Iron deficiency anemia, not otherwise specified 06/09/2024 Orders Only [facility] [address] [place] [address] India Davalos Anemia in chronic kidney disease; Other iron deficiency anemia; Chronic kidney disease, stage 2 (mild) 06/05/2024 Telephone [facility] [address] [place] [address] Stephanie Azul, laborer construction or leak gang reminder 05/26/2024 Orders Only [facility] [address] [place] [address] India Davalos Chronic kidney disease, stage 2 (mild); Anemia in chronic kidney disease; Iron deficiency anemia, not otherwise specified 05/05/2024 Telephone [facility] [address] [place] [address] India Davalos 05/05/2024 Orders Only [facility] [address] [place] [address] Kaylyn Vargas Anemia in chronic kidney disease; Iron deficiency anemia, not otherwise specified; Chronic kidney disease, stage 2 (mild) 05/01/2024 Telephone [facility] [address] [place] [address] Olesya Han 05/01/2024 Telephone [facility] [address] [place] [address] Olesya Han 04/28/2024 Orders Only [facility] [address] [place] [address] India Davalos Chronic kidney disease, stage 2 (mild); Anemia in chronic kidney disease; Iron deficiency anemia, not otherwise specified 04/07/2024 Orders Only [facility] [address] [place] [address] Kaylyn Vargas Anemia in chronic kidney disease; Iron deficiency anemia, not otherwise specified; Chronic kidney disease, stage 2 (mild) 04/05/2024 Documentation Only [facility] [address] [place] [address] India Davalos 04/05/2024 Documentation Only [facility] [address] [place] [address] India Davalos 04/03/2024 Documentation Only [facility] [address] [place] [address] Kaylyn Vargas 03/31/2024 Orders Only [facility] [address] [place] [address] India Davalos Chronic kidney disease, stage 2 (mild); Anemia in chronic kidney disease; Iron deficiency anemia, not otherwise specified from Last 3 Months Immunizations Name Administration [...] Visit [facility] [place], [address] [place] [address] Juan Jose Li MD [address] [place] [address] [place] [address] Health Maintenance Due Date Last Done Comments [...] 11:53 AM EST) Only the most recent of2 resultswithin the time period is included. TIBC 262 250 - 450 ug/dL [facility] UIBC 205 118 - 369 ug/dL [facility] Iron 57 27 - 139 ug/dL [facility] Iron Saturation (TSat) 22 15 - 55 % [facility] Blood (Blood, Venous) 06/07/2024 11:53 AM EST 06/07/2024 us Barry Reyes MD LAB BLOOD ORDERABLES Final Re sult [facility] [address] [place] [address] * (ABNORMAL) CBC and Differential (06/07/2024 11:53 AM EST) Only the most recent of2 resultswithin the time period is included. WBC 5.5 3.4 - 10.8 x10E3/uL [facility] RBC 5.76(H) 3.77 - 5.28 x10E6/uL [facility] Hemoglobin 11.1 11.1 - 15.9 g/dL [facility] Hematocrit 38.4 34.0 - 46.6 % [facility] MCV 67(L) 79 - 97 fL [facility] MCH 19.3(L) 26.6 - 33.0 pg [facility] MCHC 28.9(L) 31.5 - 35.7 g/dL [facility] RDW 18.8(H) 11.7 - 15.4 % [facility] Platelets 162 150 - 450 x10E3/uL [facility] Neutrophils Relative 59 Not Estab. % [facility] Lymphocytes Relative 31 Not Estab. % [facility] Monocytes 6 Not Estab. % [facility] Eosinophils Relative 2 Not Estab. % [facility] Basophils Relative 1 Not Estab. % [facility] Neutrophils Absolute 3.3 1.4 - 7.0 x10E3/uL [facility] Lymphocytes Absolute 1.7 0.7 - 3.1 x10E3/uL [facility] Monocytes Absolute 0.3 0.1 - 0.9 x10E3/uL [facility] Eosinophils Absolute 0.1 0.0 - 0.4 x10E3/uL [facility] Basophils Absolute 0.0 0.0 - 0.2 x10E3/uL [facility] Immature Granulocytes 1 Not Estab. % [facility] Immature Grans (Absolute) 0.0 0.0 - 0.1 x10E3/uL [facility] Blood (Blood, Venous) 06/07/2024 11:53 AM EST 06/07/2024 Barry Reyes MD LAB BLOOD ORDERABLES Final Re sult [facility] [address] [place] [address] * Ferritin (06/07/2024 11:53 AM EST) Only the most recent of2 resultswithin the time period is included. Ferritin 102 15 - 150 ng/mL [facility] Blood (Blood, Venous) 06/07/2024 11:53 AM EST 06/07/2024 Barry Reyes MD LAB BLOOD ORDERABLES Final Re sult Performing Organization Address City/[facility]/ZIP Co de Phone Number [facility] [address] [place] [address] * (ABNORMAL) Renal Function Panel (06/07/2024 11:53 AM EST) Only the most recent of2 resultswithin the time period is included. Pathologist [facility] Glucose 168(H) 70 - 99 mg/dL [facility] BUN 17 8 - 27 mg/dL [facility] Creatinine 1.09(H) 0.57 - 1.00 mg/dL [facility] eGFR CKD-EPI CR 2020 57(L) >59 mL/min/1.7 3 [facility] BUN/Creatinine Ratio 16 12 - 28 [facility] Sodium 137 134 - 144 mmol/L [facility] Potassium 4.8 3.5 - 5.2 mmol/L [facility] Chloride 99 96 - 106 mmol/L [facility] Bicarbonate (CO2) 23 20 - 29 mmol/L [facility] Calcium 9.0 8.7 - 10.3 mg/dL [facility] Albumin 4.2 3.9 - 4.9 g/dL [facility] Phosphorus 4.4(H) 3.0 - 4.3 mg/dL [facility] Blood (Blood, Venous) 06/07/2024 11:53 AM EST 06/07/2024 Barry Reyes MD LAB BLOOD ORDERABLES Final Re sult [facility] [address] [place] [address] * (ABNORMAL) Hemoglobin A1c (06/08/2023 8:36 AM EST) Hemoglobin A1C 7.2(H) (4.0-5.6) % [facility] Comment: MONITORING: In known diabetic patients, hemoglobin A1c targets should be discussed with health care provider. DIAGNOSTIC USE: ??The [place] [employer] Diabetes Association (ADA) and the World Health [...] Supplement 1 Testing performed or reported by [facility], a Service of [facility], [address] [place] [address] Luis A Bailey MD, Housekeeper Caregiver [facility]# [id number] Blood (Blood, Venous) 06/08/2023 8:36 AM EST 06/08/2023 8:38 AM EST Arlene CARTER LAB BLOOD ORDERABLES Final Re sult [facility] from Last 3 Months or Most Recently Relevant to Health Maintenance Insurance [employer] DUAL SNP ([id number]) [place] [id number] Care Teams Operations Lead Relationship Specialty Start Date End Date Sahra Son MD [address] [place] [address] PCP - General Internal Medicine 10/28/22
--- OUTSIDE RECORDS SUMMARY | 2024-06-30 09:37 | XMS_ITS | Encounter Summary ---
Author Organization [facility] Address [address] [place] [address] Phone Care Team Providers Care Extractor Operator Solvent Process Name Role Phone Sahra Son MD Primary Care Provider + Encounter Details Date Type Department Care Team ([facility] Contact Info) Description 10/26/2022 Documentation Only [facility] [address] [place] [address] India Davalos [address] [place] [address] Social History Tobacco Use Types [...] [facility] [address] [place] [address] Juan Jose Li MD [address] [place] [address] [place] [address] documented as of this encounter Visit Diagnoses Not on filedocumented in this encounter Care Teams Extractor Operator Solvent Process Relationship Specialty Start Date End Date Sahra Son MD [address] [phone] PCP - General Internal Medicine 10/28/22 documented as of this encounter
--- OUTSIDE RECORDS SUMMARY | 2024-06-30 09:37 | XMS_ITS | Encounter Summary ---
Author Organization [facility] Address [address] [place] [address] Phone Care Team Providers Care Journeyman Welder Name Role Phone Sahra Son MD Primary Care Provider + Encounter Details Date Type Department Care Team (Late Contact Info) Description 06/23/2024 Orders Only [facility] [address] [place] [address] India Davalos [address] [place] [address] Chronic kidney disease, stage 2 [...] [facility] [address] [place] [address] Juan Jose Li MD [address] [place] [address] [place] [address] documented as of this encounter Visit Diagnoses Diagnosis Chronic kidney disease, stage 2 (mild) Anemia in chronic kidney disease Iron deficiency anemia, not otherwise specified documented in this encounter Care Teams Journeyman Welder Relationship Specialty Start Date End Date Sahra Son MD [address] [place] [address] PCP - General Internal Medicine 10/28/22 documented as of this encounter
--- OUTSIDE RECORDS SUMMARY | 2024-06-30 09:37 | XMS_ITS | Clinical Summary ---
Author Organization [facility] Address [address] [place] [address] Care Team Providers Care Locker Operator Name Role Phone Geovani Natalie Carmelo ESPARZA Primary Care Provider [phone] Allergies Active Allergy Reactions Criticality Noted Date [...] 1 10/04/2016 Active ergocalciferol (VITAMIN D2) capsule 29557 units TK ONE C PO TWICE A [...] times a day. 0 04/27/2022 Active pancrelipase, Ulf-Fprz-Flml, (Creon) [address] units CPEP TK ONE C PO TID [...] age to complete this topic Care Teams Locker Operator Relationship Specialty Start Date End Date Natalie Olivo APRN [address] [place] [address] PCP - General Catshovel Driver 04/30/22
--- OUTSIDE RECORDS SUMMARY | 2024-06-30 09:37 | XMS_ITS | Encounter Summary ---
Author Organization [facility] Address [address] [place] [address] Phone Care Team Providers Care Marketing Researcher Name Role Phone Sahra Son MD Primary Care Provider + Encounter Details Date Type Department Care Team (Late Contact Info) Description 07/16/2023 Documentation Only [facility] [address] [place] [address] India Davalos [address] [place] [address] Social History Tobacco Use Types [...] [facility] [address] [place] [address] Juan Jose Li MD [address] [place] [address] [place] [address] documented as of this encounter Visit Diagnoses Not on filedocumented in this encounter Care Teams Marketing Researcher Relationship Specialty Start Date End Date Sahra Son MD [address] [phone] PCP - General Internal Medicine 10/28/22 documented as of this encounter
--- OUTSIDE RECORDS SUMMARY | 2024-06-30 09:37 | XMS_ITS | Encounter Summary ---
Author Organization [facility] Address [address] [place] [address] Phone Care Team Providers Care Demurrage Worker Name Role Phone Sahra Son MD Primary Care Provider + Encounter Details Date Type Department Care Team (Late Contact Info) Description 08/27/2021 Documentation Only [facility] [address] [place] [address] India Davalos [address] [place] [address] Social History Tobacco Use Types [...] [facility] [address] [place] [address] Juan Jose Li MD [address] [place] [address] [place] [address] documented as of this encounter Visit Diagnoses Not on filedocumented in this encounter Care Teams Demurrage Worker Relationship Specialty Start Date End Date Sahra Son MD [address] [phone] PCP - General Internal Medicine 10/28/22 documented as of this encounter
--- OUTSIDE RECORDS SUMMARY | 2024-06-30 09:37 | XMS_ITS | Encounter Summary ---
Author Organization [facility] Address [address] [place] [address] Phone Care Team Providers Care Breakdown Man Name Role Phone Sahra Son MD Primary Care Provider + Encounter Details Date Type Department Care Team (Late Contact Info) Description 12/24/2022 Documentation Only [facility] [address] [place] [address] Carol Whelan [address] [place] [address] Social History Tobacco Use Types [...] [facility] [address] [place] [address] Juan Jose Li MD [address] [place] [address] [place] [address] documented as of this encounter Visit Diagnoses Not on filedocumented in this encounter Care Teams Breakdown Man Relationship Specialty Start Date End Date Sahra Son MD [address] [phone] PCP - General Internal Medicine 10/28/22 documented as of this encounter
--- OUTSIDE RECORDS SUMMARY | 2024-06-30 09:37 | XMS_ITS | Encounter Summary ---
Author Organization [facility] Address [address] [place] [address] Phone Care Team Providers Care Pit Slagman Name Role Phone Sahra Son MD Primary Care Provider + Encounter Details Date Type Department Care Team (Late Contact Info) Description 08/05/2023 Documentation Only [facility] [address] [place] [address] India Davalos [address] [place] [address] Social History Tobacco Use Types [...] [facility] [address] [place] [address] Juan Jose Li MD [address] [place] [address] [place] [address] documented as of this encounter Visit Diagnoses Not on filedocumented in this encounter Care Teams Pit Slagman Relationship Specialty Start Date End Date Sahra Son MD [address] [phone] PCP - General Internal Medicine 10/28/22 documented as of this encounter
--- OUTSIDE RECORDS SUMMARY | 2024-06-30 09:37 | XMS_ITS | Encounter Summary ---
Author Organization [facility] Address [address] [place] [address] Phone Care Team Providers Care Theater Company Producer Name Role Phone Sahra Son MD Primary Care Provider + Encounter Details Date Type Department Care Team ([facility] Contact Info) Description 10/30/2022 Documentation Only [facility] [address] [place] [address] India Davalos [address] [place] [address] Social History Tobacco Use Types [...] [facility] [address] [place] [address] Juan Jose Li MD [address] [place] [address] [place] [address] documented as of this encounter Visit Diagnoses Not on filedocumented in this encounter Care Teams Theater Company Producer Relationship Specialty Start Date End Date Sahra Son MD [address] [phone] PCP - General Internal Medicine 10/28/22 documented as of this encounter
[2024-06-30 13:23] LABS: ~PT, ~INR - Anti Coag Clinic 2.6 (0.9-1.1)
== END 2024-06-30 09:31 | disposition home or self-care (01) ==
LOC: HO.ACS 09:11
PROVIDERS: PCP Internal Medicine; Visit Provider Internal Medicine
DX: Z79.01 Long term (current) use of anticoagulants (principal)

== ENCOUNTER → 2024-06-30 09:11 | Outpatient (BNVA) | payer OTHER, SELFPAY | PROVIDERS: PCP Internal Medicine; Visit Provider Internal Medicine | DX: Z86.718 Personal history of other venous thrombosis and embolism (principal); Z79.01 Long term (current) use of anticoagulants; Z51.81 Encounter for therapeutic drug level monitoring | CPT/HCPCS: 85610; 99211 ==

== ENCOUNTER 2024-07-13 09:01 | Outpatient (AMB) | payer OTHER, SELFPAY ==
[2024-07-13 09:38] LABS: Prothrombin Time Whole Bld POC 23.1 sec (11.1-13.5); ~PT, ~INR - Anti Coag Clinic 1.9 (0.9-1.1)
--- OUTSIDE RECORDS SUMMARY | 2024-07-13 09:43 | XMS_ITS | Encounter Summary ---
Author Organization [facility], Address [address] [place] [address] Phone Care Team Providers Care Scouts Name Role Phone Sahra Son MD Primary Care Provider + Encounter Details Date Type Department Care Team (Late st Contact Info) Description 09/28/2022 Documentation Only [facility], [address] [place] [address] India Davalos [address] [place] [address] Social History Tobacco Use Types [...] on filedocumented in this encounter Care Teams Scouts Relationship Specialty Start Date End Date Sahra Son MD [address] [address] PCP - General Internal Medicine 10/28/22 documented as of this encounter
--- OUTSIDE RECORDS SUMMARY | 2024-07-13 09:43 | XMS_ITS | Encounter Summary ---
Author Organization [facility], Address [address] [place] [address] Phone Care Team Providers Care Geriatrics Physician Name Role Phone Sahra Son MD Primary Care Provider + Encounter Details Date Type Department Care Team (Late st Contact Info) Description 09/18/2022 Documentation Only [facility], [address] [place] [address] India Davalos [address] [place], [place] [...] on filedocumented in this encounter Care Teams Geriatrics Physician Relationship Specialty Start Date End Date Sahra Son MD [address] [address] PCP - General Internal Medicine 10/28/22 documented as of this encounter
--- OUTSIDE RECORDS SUMMARY | 2024-07-13 09:43 | XMS_ITS | Encounter Summary ---
Author Organization [facility] Address [address] [place] [address] Phone Care Team Providers Care Director Of Campus Recreation Name Role Phone Sahra Son MD Primary Care Provider + Encounter Details Date Type Department Care Team (Late st Contact Info) Description 03/03/2024 Orders Only [facility], [address] [place] [address] India Davalos [address] [place] [address] Chronic kidney disease, stage 2 [...] Glucose 152(H) 70 - 99 mg/dL [facility] BUN 16 8 - 27 mg/dL [facility] Creatinine 0.98 0.57 - 1.00 mg/dL [facility] eGFR CKD-EPI CR 2020 64 >59 mL/min/1.7 3 [facility] BUN/Creatinine Ratio 16 12 - 28 [facility] Sodium 137 134 - 144 mmol/L [facility] Potassium 4.8 3.5 - 5.2 mmol/L [facility] Chloride 101 96 - 106 mmol/L [facility] Bicarbonate (CO2) 22 20 - 29 mmol/L [facility] Calcium 8.8 8.7 - 10.3 mg/dL [facility] Albumin 4.0 3.9 - 4.9 g/dL [facility] Phosphorus 4.0 3.0 - 4.3 mg/dL [facility] Blood (Blood, Venous) 03/24/2024 10:37 AM EST 03/24/2024 us Barry Reyes MD LAB BLOOD ORDERABLES Final Re sult [facility] [address] [place] [address] * Ferritin (03/24/2024 10:37 AM EST) Ferritin 37 15 - 150 ng/mL [facility] Blood (Blood, Venous) 03/24/2024 10:37 AM EST 03/24/2024 Barry Reyes MD LAB BLOOD ORDERABLES Final Re sult Performing Organization Address [facility]/ZIP Co de Phone Number [facility] [address] [place] [address] * Iron Panel (Fe, TIBC, TSAT) (03/24/2024 10:37 AM EST) Pathologist [facility] TIBC 293 250 - 450 ug/dL [facility] UIBC 247 118 - 369 ug/dL [facility] Iron 46 27 - 139 ug/dL [facility] Iron Saturation (TSat) 16 15 - 55 % [facility] Blood (Blood, Venous) 03/24/2024 10:37 AM EST 03/24/2024 us Barry Reyes MD LAB BLOOD ORDERABLES Final Re sult [facility] [address] [place] [address] * (ABNORMAL) CBC and Differential (03/24/2024 10:37 AM EST) WBC 6.0 3.4 - 10.8 x10E3/uL [facility] RBC 5.21 3.77 - 5.28 x10E6/uL [facility] Hemoglobin 10.0(L) 11.1 - 15.9 g/dL [facility] Hematocrit 35.3 34.0 - 46.6 % [facility] MCV 68(L) 79 - 97 fL [facility] MCH 19.2(L) 26.6 - 33.0 pg [facility] MCHC 28.3(L) 31.5 - 35.7 g/dL [facility] RDW 19.4(H) 11.7 - 15.4 % [facility] Platelets 186 150 - 450 x10E3/uL [facility] Neutrophils Relative 65 Not Estab. % [facility] Lymphocytes Relative 26 Not Estab. % [facility] Monocytes 6 Not Estab. % [facility] Eosinophils Relative 2 Not Estab. % [facility] Basophils Relative 1 Not Estab. % [facility] Neutrophils Absolute 3.9 1.4 - 7.0 x10E3/uL [facility] Lymphocytes Absolute 1.5 0.7 - 3.1 x10E3/uL [facility] Monocytes Absolute 0.3 0.1 - 0.9 x10E3/uL [facility] Eosinophils Absolute 0.1 0.0 - 0.4 x10E3/uL [facility] Basophils Absolute 0.0 0.0 - 0.2 x10E3/uL [facility] Immature Granulocytes 0 Not Estab. % [facility] Immature Grans (Absolute) 0.0 0.0 - 0.1 x10E3/uL [facility] Blood (Blood, Venous) 03/24/2024 10:37 AM EST 03/24/2024 us Barry Reyes MD LAB BLOOD ORDERABLES Final Re sult [facility] [address] [place] [address] documented in this encounter Visit Diagnoses Diagnosis Chronic kidney disease, stage 2 (mild) Anemia in chronic kidney disease Iron deficiency anemia, not otherwise specified documented in this encounter Care Teams Director Of Campus Recreation Relationship Specialty Start Date End Date Sahra Son MD [address] [place] [address] PCP - General Internal Medicine 10/28/22 documented as of this encounter
--- OUTSIDE RECORDS SUMMARY | 2024-07-13 09:43 | XMS_ITS | Encounter Summary ---
Author Organization [facility], Address [address] [place] [address] Phone Care Team Providers Care Acetone Button Paster Name Role Phone Sahra Son MD Primary Care Provider + Encounter Details Date Type Department Care Team (Late st Contact Info) Description 06/17/2022 Documentation Only [facility], [address] [place] [address] India Davalos [address] [place] [address] Social History Tobacco Use Types [...] on filedocumented in this encounter Care Teams Acetone Button Paster Relationship Specialty Start Date End Date Sahra Son MD [address] [address] PCP - General Internal Medicine 10/28/22 documented as of this encounter
--- OUTSIDE RECORDS SUMMARY | 2024-07-13 09:43 | XMS_ITS | Encounter Summary ---
Author Organization [employer] [facility] Address [address] [place] [address] Care Team Providers Care Hogshead Head Matcher Name Role Phone Sahra Son MD Primary Care Provider Paula daryilaMarko Perales MD Unavailable [phone] Reason for Visit * Reason Onset Date Comments Prior Authorization 09/01/2022 CT CHEST Encounter Details Date Type Department Care Team Description 09/01/2022 Telephone Pulmonology - [place] [address] [facility] [address] [place] [phone] Betty Morillo MD [address] [facility] [address] [place] [phone] Prior Authorization (CT CHEST) Social History Tobacco [...] Ref#: Barbara Gann on 09/09 @ 11:31 [id number] * Telephone Encounter - Dilcia [facility] - 09/01/2022 1:20 PM EDT [facility] - Auth Pending (7-14 days to process) Auth request, clinicals and Rad report faxed to [facility]. [id number] documented in this encounter Plan of Treatment Not on file documented as of this encounter Visit Diagnoses Not on filedocumented in this encounter Care Teams Hogshead Head Matcher Relationship Specialty Start Date End Date Sahra Son MD PCP - General Internal Medicine 08/31/22 Marko Spaulding MD Specialist Cardiology 09/23/22 documented as of this encounter
--- OUTSIDE RECORDS SUMMARY | 2024-07-13 09:43 | XMS_ITS | Encounter Summary ---
Author Organization [facility], Address [address] [place] [address] Phone Care Team Providers Care Bull Chain Operator Name Role Phone Sahra Son MD Primary Care Provider + Encounter Details Date Type Department Care Team (Late st Contact Info) Description 06/18/2021 Documentation Only [facility], [address] [place] [address] India Davalos [address] [place] [address] Social History Tobacco Use Types [...] on filedocumented in this encounter Care Teams Bull Chain Operator Relationship Specialty Start Date End Date Sahra Son MD [address] [address] PCP - General Internal Medicine 10/28/22 documented as of this encounter
--- OUTSIDE RECORDS SUMMARY | 2024-07-13 09:43 | XMS_ITS | Encounter Summary ---
Author Organization [facility] [employer] [facility] Address [address] [place] [address] Care Team Providers Care Telephone Operator Chief Name Role Phone Sahra Son MD Primary Care Provider Marko Fernandez MD Unavailable [phone] Encounter Details Date Type Department Care Team Description 09/02/2022 Telephone Pulmonology - [place] [address] [facility] [address] [place] [phone] Betty Morillo MD [address] [facility] [address] [place] [phone] Social History Tobacco Use Types Packs/Day Years [...] pcp [facility] requesting last office notes fax [phone] documented in this encounter Plan of Treatment Not on file documented as of this encounter Visit Diagnoses Not on filedocumented in this encounter Care Teams Telephone Operator Chief Relationship Specialty Start Date End Date Sahar Son MD PCP - General Internal Medicine 08/31/22 Marko Spaulding MD Specialist Cardiology 09/23/22 documented as of this encounter
--- OUTSIDE RECORDS SUMMARY | 2024-07-13 09:43 | XMS_ITS | Encounter Summary ---
Author Organization [facility], Address [address] [place] [address] Phone Care Team Providers Care Dedenter Name Role Phone Sahra Son MD Primary Care Provider + Encounter Details Date Type Department Care Team (Late st Contact Info) Description 09/28/2022 Documentation Only [facility], [address] [place] [address] India Davalos [address] [place] [address] Social History Tobacco Use Types [...] on filedocumented in this encounter Care Teams Dedenter Relationship Specialty Start Date End Date Sahra Son MD [address] [address] PCP - General Internal Medicine 10/28/22 documented as of this encounter
--- OUTSIDE RECORDS SUMMARY | 2024-07-13 09:43 | XMS_ITS | Encounter Summary ---
Author Organization [facility], Address [address] [place] [address] Phone Care Team Providers Care Strike Operations Officer Name Role Phone Sahra Son MD Primary Care Provider + Encounter Details Date Type Department Care Team (Late st Contact Info) Description 09/28/2022 Documentation Only [facility], [address] [place] [address] India Davalos [address] [place] [address] Social History Tobacco Use Types [...] on filedocumented in this encounter Care Teams Strike Operations Officer Relationship Specialty Start Date End Date Sahra Son MD [address] [address] PCP - General Internal Medicine 10/28/22 documented as of this encounter
--- OUTSIDE RECORDS SUMMARY | 2024-07-13 09:43 | XMS_ITS | Encounter Summary ---
Author Organization [facility], Address [address] [place] [address] Phone Care Team Providers Care Billet Shearer Name Role Phone Sahra Son MD Primary Care Provider + Encounter Details Date Type Department Care Team (Late st Contact Info) Description 09/28/2022 Documentation Only [facility], [address] [place] [address] India Davalos [address] [place] [address] Social History Tobacco Use Types [...] on filedocumented in this encounter Care Teams Billet Shearer Relationship Specialty Start Date End Date Sahra Son MD [address] [address] PCP - General Internal Medicine 10/28/22 documented as of this encounter
--- OUTSIDE RECORDS SUMMARY | 2024-07-13 09:44 | XMS_ITS | Encounter Summary ---
Author Organization [facility], Address [address] [place] [address] Phone Care Team Providers Care Course Instructor Name Role Phone Sahra Son MD Primary Care Provider + Encounter Details Date Type Department Care Team (Late st Contact Info) Description 11/11/2023 Documentation Only [facility], [address] [place] [address] India Davalos [address] [place] [address] Social History Tobacco Use Types [...] on filedocumented in this encounter Care Teams Course Instructor Relationship Specialty Start Date End Date Sahra Son MD [address] [address] PCP - General Internal Medicine 10/28/22 documented as of this encounter
--- OUTSIDE RECORDS SUMMARY | 2024-07-13 09:44 | XMS_ITS | Encounter Summary ---
Author Organization [facility], Address [address] [place] [address] Phone Care Team Providers Care Public Service Director Name Role Phone Sahra Son MD Primary Care Provider + Encounter Details Date Type Department Care Team (Late st Contact Info) Description 11/11/2023 Documentation Only [facility], [address] [place] [address] India Davalos [address] [place] [address] Social History Tobacco Use Types [...] on filedocumented in this encounter Care Teams Public Service Director Relationship Specialty Start Date End Date Sahra Son MD [address] [address] PCP - General Internal Medicine 10/28/22 documented as of this encounter
--- OUTSIDE RECORDS SUMMARY | 2024-07-13 09:44 | XMS_ITS | Encounter Summary ---
Author Organization [facility] [place] [facility], Address [address] [place] [address] Phone Care Team Providers Care Building Serviceman Name Role Phone Sahra Sno MD Primary Care Provider + Encounter Details Date Type Department Care Team (Late st Contact Info) Description 07/16/2023 Documentation Only [facility], [address] [place] [address] India Davalos [address] [place] [address] Social History Tobacco Use Types [...] filedocumented in this encounter Care Teams Building Serviceman Relationship Specialty Start Date End Date Sahra Son MD [address] [address] PCP - General Internal Medicine 10/28/22 documented as of this encounter
--- OUTSIDE RECORDS SUMMARY | 2024-07-13 09:44 | XMS_ITS | Encounter Summary ---
Author Organization [facility], Address [address] [place] [address] Phone Care Team Providers Care Historical Records Administrator Name Role Phone Sahra Son MD Primary Care Provider + Encounter Details Date Type Department Care Team (Late st Contact Info) Description 08/09/2023 Documentation Only [facility], [address] [place] [address] India Davalos [address] [place] [address] Social History Tobacco Use Types [...] on filedocumented in this encounter Care Teams Historical Records Administrator Relationship Specialty Start Date End Date Sahra Son MD [address] [address] PCP - General Internal Medicine 10/28/22 documented as of this encounter
--- OUTSIDE RECORDS SUMMARY | 2024-07-13 09:44 | XMS_ITS | Encounter Summary ---
Author Organization [facility] [place], Address [address] [place] [address] Phone Care Team Providers Care Gear Machine Operator Name Role Phone Sahra Son MD Primary Care Provider + Encounter Details Date Type Department Care Team (Late st Contact Info) Description 03/11/2023 Documentation Only [facility], [address] [place] [address] India Davalos [address] [place] [address] Social History Tobacco Use Types [...] on filedocumented in this encounter Care Teams Gear Machine Operator Relationship Specialty Start Date End Date Sahra Son MD [address] [address] PCP - General Internal Medicine 10/28/22 documented as of this encounter
--- OUTSIDE RECORDS SUMMARY | 2024-07-13 09:44 | XMS_ITS | Encounter Summary ---
Author Organization [facility] [place] [facility], Address [address] [place] [address] Phone Care Team Providers Care Inpatient Coder Name Role Phone Sahra Son MD Primary Care Provider + Encounter Details Date Type Department Care Team (Late st Contact Info) Description 08/11/2022 Documentation Only [facility], [address] [place] [address] India Davalos [address] [place] [address] Social History Tobacco Use Types [...] on filedocumented in this encounter Care Teams Inpatient Coder Relationship Specialty Start Date End Date Sahra Son MD [address] [address] PCP - General Internal Medicine 10/28/22 documented as of this encounter
--- OUTSIDE RECORDS SUMMARY | 2024-07-13 09:44 | XMS_ITS | Encounter Summary ---
Author Organization [facility] [place], Address [address] [place] [address] Phone Care Team Providers Care Printer Operator Name Role Phone Sahra Son MD Primary Care Provider + Encounter Details Date Type Department Care Team (Late st Contact Info) Description 01/06/2022 Documentation Only [facility], [address] [place] [address] Juan Jose Li MD [address] [facility] [place] [address] Social History Tobacco Use Types [...] on filedocumented in this encounter Care Teams Printer Operator Relationship Specialty Start Date End Date Sahra Son MD [address] [address] PCP - General Internal Medicine 10/28/22 documented as of this encounter
--- OUTSIDE RECORDS SUMMARY | 2024-07-13 09:44 | XMS_ITS | Encounter Summary ---
Author Organization [facility] [place], Address [address] [place] [address] Phone Care Team Providers Care Billiard Table Mechanic Name Role Phone Sahra Son MD Primary Care Provider + Encounter Details Date Type Department Care Team (Late st Contact Info) Description 08/27/2021 Documentation Only [facility] [place], [address] [place] [address] India Davalos [address] [place] [address] Social History Tobacco Use Types [...] on filedocumented in this encounter Care Teams Billiard Table Mechanic Relationship Specialty Start Date End Date Sahra Son MD [address] [address] PCP - General Internal Medicine 10/28/22 documented as of this encounter
--- OUTSIDE RECORDS SUMMARY | 2024-07-13 09:44 | XMS_ITS | Encounter Summary ---
Author Organization [facility] Address [address] [place] [address] Phone Care Team Providers Care Manager Floor Name Role Phone Sahra Son MD Primary Care Provider + Encounter Details Date Type Department Care Team (Late st Contact Info) Description 05/17/2023 Orders Only [facility] [place], [address] [place] [id number] Arlene Alston PA Chronic kidney disease, stage [...] (Fe, TIBC, TSAT) (06/08/2023 8:36 AM EST) [facility] Iron 49 (30-160) MCG/DL [facility] UIBC 246 (110-370) MCG/DL [facility] TIBC 295 (140-530) MCG/DL [facility] Iron Saturation (TSat) 17(L) (20-55) % [facility] Comment: Testing performed or reported by [facility], a Service of [facility], [address] [place] [address] Luis A Bailey MD, Hand Mexican Food Maker TASNEEM# [id number] Blood (Blood, Venous) 06/08/2023 8:36 AM EST 06/08/2023 8:39 AM EST Arlene CARTER LAB BLOOD ORDERABLES Final Re sult Performing Organization Address [facility]/ZIP Co de Phone Number [facility] * Vitamin D 25 hydroxy (06/08/2023 8:36 AM EST) Vitamin D, 25-Hydroxy 24.8 (20-50) NG/ML [facility] Comment: Testing performed or reported by [facility], a Service of [facility], [address] [place] [address] Luis A Bailey MD, Hand Mexican Food Maker CLIA# [id number] Blood (Blood, Venous) 06/08/2023 8:36 AM EST 06/08/2023 8:39 AM EST Arlene CARTER LAB BLOOD ORDERABLES Final Re sult Performing Organization Address [facility] Co de Phone Number [facility] * (ABNORMAL) Renal function panel (06/08/2023 8:36 AM EST) Glucose 166(H) (70-99) MG/DL [facility] BUN 19 (8-23) MG/DL [facility] Creatinine 1.0 (0.5-1.0) MG/DL [facility] Sodium 138 (133-145) MMOL/L [facility] Potassium 4.9 (3.6-5.2) MMOL/L [facility] Chloride 101 (98-107) MMOL/L [facility] Bicarbonate (CO2) 27 (22-29) MMOL/L [facility] Anion Gap 10 (4-17) [facility] Albumin 4.2 (3.4-4.8) GM/DL [facility] Calcium 9.1 (8.6-10.5) MG/DL [facility] Phosphorus, Serum 3.4 (2.5-4.5) MG/DL [facility] Est GFR Non 66 ML/MIN/1.7 3 M2 [facility] Comment: Creatinine based estimated glomerular filtration (eGFR) in adults is calculated using the National Kidney Foundation recommended 2020 CKD-EPI equation. Estimates GFR from serum creatinine, age and sex. Testing performed or reported by [facility], a Service of [facility], [address] [place] [address] Luis A Bailey MD, Hand Mexican Food Maker CLIA# [id number] Blood (Blood, Venous) 06/08/2023 8:36 AM EST 06/08/2023 8:39 AM EST Arlene Alston NM LAB BLOOD ORDERABLES Final Re sult Performing Organization Address [facility] Co de Phone Number [facility] * Magnesium (06/08/2023 8:36 AM EST) Magnesium 2.1 (1.6-2.3) mg/dL [facility] Comment: Testing performed or reported by [facility], a Service of [facility], [address] [place] [address] Luis A Bailey MD, Hand Mexican Food Maker [facility]# [id number] Blood (Blood, Venous) 06/08/2023 8:36 AM EST 06/08/2023 8:39 AM EST Arlene Alston NM LAB BLOOD ORDERABLES Final Re sult Performing Organization Address [facility] de Phone Number [facility] * (ABNORMAL) Hemoglobin A1c (06/08/2023 8:36 AM EST) Hemoglobin A1C 7.2(H) (4.0-5.6) % [facility] Comment: MONITORING: In known diabetic patients, hemoglobin A1c targets should be discussed with health care provider. DIAGNOSTIC USE: ??The [place] Diabetes Association (ADA) and the World Health [...] Supplement 1 Testing performed or reported by [facility], a Service of [facility], [address] [place] [address] Luis A Bailey MD, Hand Mexican Food Maker [facility]# [id number] Blood (Blood, Venous) 06/08/2023 8:36 AM EST 06/08/2023 8:38 AM EST us Arlene CARTER LAB BLOOD ORDERABLES Final Re sult [facility] * (ABNORMAL) CBC and differential (06/08/2023 8:36 AM EST) White Blood Cells 5.2 (4.0-11.0 ) K/MM3 [facility] RBC 5.08 (4.20-5.4 0) M/MM3 [facility] Hgb 10.1(L) (11.7-15. 5) GM/DL [facility] Hematocrit 32.9(L) (35.7-45. 8) % [facility] MCV 64.8(L) (80.0-100 .0) FL [facility] MCH 19.9(L) (27.0-34. 0) PG [facility] MCHC 30.7(L) (33.0-37. 0) g/dL [facility] Platelets 191 (150-460) K/MM3 [facility] RDW-SD 40.3 (<47.0) FL [facility] MPV NOT MEASURED (9.4-12.4 ) [place] [facility] nRBC Count 0.0 #/100 WBC'S [facility] NRBC Absolute 0.0 K/MM3 [facility] Neutrophils Abs Auto 3.5 (1.3-7.0) K/MM3 [facility] Lymphocytes Relative 1.3 (0.8-3.1) K/MM3 [facility] Monocytes 0.3(L) (0.4-0.9) K/MM3 [facility] Eosinophils Relative 0.1 (0.0-0.4) K/MM3 [facility] Basophil ABS 0.0 (0.0-0.1) K/MM3 [facility] Granulocytes Absolute 0.0 K/MM3 [facility] Neutrophils % Auto 67.3 (44-76) % [facility] Lymphs 24.0 (15-43) % [facility] Monocytes Absolute 5.8 (4.5-10.5 ) % [facility] Eosinophils 1.7 (0-6) % [facility] Basophils Relative 0.8 (0-2) % [facility] Immature Granulocytes 0.4 % [facility] Comment: Testing performed or reported by [facility], a Service of [facility], [address] [place] [address] Luis A Bailey MD, Hand Mexican Food Maker [facility]# [id number] Blood (Blood, Venous) 06/08/2023 8:36 AM EST 06/08/2023 8:38 AM EST us Arlene CARTER LAB BLOOD ORDERABLES Final Re sult [facility] documented in this encounter Visit Diagnoses Diagnosis Chronic kidney disease, stage 2 (mild) Essential (primary) hypertension Anemia in chronic kidney disease Antiphospholipid syndrome (HCC) Type 2 diabetes mellitus, not otherwise specified (HCC) Bleeding hemorrhoids documented in this encounter Care Teams Manager Floor Relationship Specialty Start Date End Date Sahra Son MD [address] [place] [address] PCP - General Internal Medicine 10/28/22 documented as of this encounter
--- OUTSIDE RECORDS SUMMARY | 2024-07-13 09:44 | XMS_ITS | Encounter Summary ---
Author Organization [facility] [place], Address [address] [place] [address] Phone Care Team Providers Care Ribbon Sweatband Operator Name Role Phone Sahra Son MD Primary Care Provider + Encounter Details Date Type Department Care Team (Late st Contact Info) Description 03/22/2024 Documentation Only [facility] [place], [address] [place] [address] India Davalos [address] [place] [address] Social History Tobacco Use Types [...] on filedocumented in this encounter Care Teams Ribbon Sweatband Operator Relationship Specialty Start Date End Date Sahra Son MD [address] [address] PCP - General Internal Medicine 10/28/22 documented as of this encounter
--- OUTSIDE RECORDS SUMMARY | 2024-07-13 09:44 | XMS_ITS | Encounter Summary ---
Author Organization [facility] [place], Address [address] [place] [address] Phone Care Team Providers Care Leveler Helper Name Role Phone Sahra Son MD Primary Care Provider + Encounter Details Date Type Department Care Team ([facility] st Contact Info) Description 04/14/2022 Documentation Only [facility] [place], [address] [place] [address] India Davalos [address] [place] [address] Social History Tobacco Use Types [...] on filedocumented in this encounter Care Teams Leveler Helper Relationship Specialty Start Date End Date Sahra Son MD [address] [address] PCP - General Internal Medicine 10/28/22 documented as of this encounter
--- OUTSIDE RECORDS SUMMARY | 2024-07-13 09:44 | XMS_ITS | Encounter Summary ---
Author Organization [facility] [place], Address [address] [place] [address] Phone Care Team Providers Care Car And Yard Supervisor Name Role Phone Sahra Son MD Primary Care Provider + Encounter Details Date Type Department Care Team (Late st Contact Info) Description 11/05/2023 Documentation Only [facility] [place], [address] [place] [address] India Davalos [address] [place] [address] Social History Tobacco Use Types [...] filedocumented in this encounter Care Teams Car And Yard Supervisor Relationship Specialty Start Date End Date Sahra Son MD [address] [address] PCP - General Internal Medicine 10/28/22 documented as of this encounter
--- OUTSIDE RECORDS SUMMARY | 2024-07-13 09:44 | XMS_ITS | Encounter Summary ---
Author Organization [facility] [place], Address [address] [place] [address] Phone Care Team Providers Care Gift Basket Packer Name Role Phone Sahra Son MD Primary Care Provider + Encounter Details Date Type Department Care Team (Late st Contact Info) Description 06/22/2022 Documentation Only [facility] [place], [address] [place] [address] India Davalos [address] [place] [address] Social History Tobacco [...] on filedocumented in this encounter Care Teams Gift Basket Packer Relationship Specialty Start Date End Date Sahra Son MD [address] [address] PCP - General Internal Medicine 10/28/22 documented as of this encounter
--- OUTSIDE RECORDS SUMMARY | 2024-07-13 09:44 | XMS_ITS | Encounter Summary ---
Author Organization [facility] [place], Address [address] [place] [address] Phone Care Team Providers Care Supervisor Dyer Name Role Phone Sahra Son MD Primary Care Provider + Encounter Details Date Type Department Care Team (Late st Contact Info) Description 11/30/2023 Documentation Only [facility] [place], [address] [place] [address] India Davalos [address] [place] [address] Social History Tobacco Use Types [...] filedocumented in this encounter Care Teams Supervisor Dyer Relationship Specialty Start Date End Date Sahra Son MD [address] [address] PCP - General Internal Medicine 10/28/22 documented as of this encounter
--- OUTSIDE RECORDS SUMMARY | 2024-07-13 09:44 | XMS_ITS | Encounter Summary ---
Author Organization [facility] [place], Address [address] [place] [address] Phone Care Team Providers Care Oil Speculator Name Role Phone Sahra Son MD Primary Care Provider + Encounter Details Date Type Department Care Team (Late st Contact Info) Description 07/07/2024 Orders Only [facility] [place], [address] [place] [address] India Davalos [address] [place] [address] Anemia in chronic kidney disease; [...] (mild) documented in this encounter Care Teams Oil Speculator Relationship Specialty Start Date End Date Sahra Son MD [address] [address] PCP - General Internal Medicine 10/28/22 documented as of this encounter
--- OUTSIDE RECORDS SUMMARY | 2024-07-13 09:44 | XMS_ITS | Encounter Summary ---
Author Organization [facility] [place], Address [address] [place] [address] Phone Care Team Providers Care Cruise Consultant Name Role Phone Sahra Son MD Primary Care Provider + Encounter Details Date Type Department Care Team (Late st Contact Info) Description 01/04/2024 Documentation Only [facility] [place], [address] [place] [address] India Davalos [address] [place] [address] Social History Tobacco Use Types [...] on filedocumented in this encounter Care Teams Cruise Consultant Relationship Specialty Start Date End Date Sahra Son MD [address] [address] PCP - General Internal Medicine 10/28/22 documented as of this encounter
--- OUTSIDE RECORDS SUMMARY | 2024-07-13 09:44 | XMS_ITS | Encounter Summary ---
Author Organization [facility] [place], Address [address] [place] [address] Phone Care Team Providers Care Stitcher Feeder Name Role Phone Sahra Son MD Primary Care Provider + Encounter Details Date Type Department Care Team (Late st Contact Info) Description 11/17/2023 Documentation Only [facility] [place], [address] [place] [address] India Davalos [address] [place] [address] Social History Tobacco Use Types [...] on filedocumented in this encounter Care Teams Stitcher Feeder Relationship Specialty Start Date End Date Sahra Son MD [address] [address] PCP - General Internal Medicine 10/28/22 documented as of this encounter
--- OUTSIDE RECORDS SUMMARY | 2024-07-13 09:44 | XMS_ITS | Encounter Summary ---
Author Organization [facility] [place], Address [address] [place] [address] Phone Care Team Providers Care Product Development Specialist Name Role Phone Sahra Son MD Primary Care Provider + Encounter Details Date Type Department Care Team ([facility] st Contact Info) Description 04/08/2022 Documentation Only [facility] [place], [address] [place] [address] India Davalos [address] [place] [address] Social History Tobacco Use [...] on filedocumented in this encounter Care Teams Product Development Specialist Relationship Specialty Start Date End Date Sahra Son MD [address] [address] PCP - General Internal Medicine 10/28/22 documented as of this encounter
--- OUTSIDE RECORDS SUMMARY | 2024-07-13 09:44 | XMS_ITS | Encounter Summary ---
Author Organization [facility] [place], Address [address] [place] [address] Phone Care Team Providers Care Sensitized Paper Tester Name Role Phone Sahra Son MD Primary Care Provider + Encounter Details Date Type Department Care Team (Late st Contact Info) Description 11/11/2023 Documentation Only [facility] [place], [address] [place] [address] India Davalos [address] [place] [address] Social History Tobacco Use Types [...] on filedocumented in this encounter Care Teams Sensitized Paper Tester Relationship Specialty Start Date End Date Sahra Son MD [address] [address] PCP - General Internal Medicine 10/28/22 documented as of this encounter
--- OUTSIDE RECORDS SUMMARY | 2024-07-13 09:44 | XMS_ITS | Encounter Summary ---
Author Organization [facility] [place], Address [address] [place] [address] Phone Care Team Providers Care Liquid Waste Treatment Plant Operator Name Role Phone Sahra Son MD Primary Care Provider + Encounter Details Date Type Department Care Team (Late st Contact Info) Description 06/30/2020 Orders Only [facility] [place] [facility] [address] [place] [address] Carol Whelan [address] [place] [address] Iron deficiency anemia, not otherwise [...] (mild) documented in this encounter Care Teams Liquid Waste Treatment Plant Operator Relationship Specialty Start Date End Date Sahra Son MD [address] [address] PCP - General Internal Medicine 10/28/22 documented as of this encounter
--- OUTSIDE RECORDS SUMMARY | 2024-07-13 09:44 | XMS_ITS | Encounter Summary ---
Author Organization [facility] [place], Address [address] [place] [address] Phone Care Team Providers Care Rubber Compounder Supervisor Name Role Phone Sahra Son MD Primary Care Provider + Encounter Details Date Type Department Care Team (Late st Contact Info) Description 08/22/2021 Documentation Only [facility] [place], [address] [place] [address] India Davalos [address] [place] [address] Social History Tobacco Use Types [...] on filedocumented in this encounter Care Teams Rubber Compounder Supervisor Relationship Specialty Start Date End Date Sahra Son MD [address] [address] PCP - General Internal Medicine 10/28/22 documented as of this encounter
--- OUTSIDE RECORDS SUMMARY | 2024-07-13 09:44 | XMS_ITS | Encounter Summary ---
Author Organization [facility] [place], Address [address] [place] [address] Phone Care Team Providers Care Lead Systems Engineer Name Role Phone Sahra Son MD Primary Care Provider + Encounter Details Date Type Department Care Team (Late st Contact Info) Description 06/09/2023 Documentation Only [facility] [place], [address] [place] [address] India Davalos [address] [place] [address] Social History Tobacco Use Types [...] filedocumented in this encounter Care Teams Lead Systems Engineer Relationship Specialty Start Date End Date Sahra Son MD [address] [address] PCP - General Internal Medicine 10/28/22 documented as of this encounter
--- OUTSIDE RECORDS SUMMARY | 2024-07-13 09:44 | XMS_ITS | Encounter Summary ---
Author Organization [facility] [place], Address [address] [place] [address] Phone Care Team Providers Care Fire Investigation Lieutenant Name Role Phone Sahra Son MD Primary Care Provider + Encounter Details Date Type Department Care Team (Late st Contact Info) Description 07/16/2023 Documentation Only [facility] [place], [address] [place] [address] India Davalos [address] [place] [address] Social History Tobacco Use Types [...] on filedocumented in this encounter Care Teams Fire Investigation Lieutenant Relationship Specialty Start Date End Date Sahra Son MD [address] [address] PCP - General Internal Medicine 10/28/22 documented as of this encounter
--- OUTSIDE RECORDS SUMMARY | 2024-07-13 09:44 | XMS_ITS | Encounter Summary ---
Author Organization [facility] [place], Address [address] [place] [address] Phone Care Team Providers Care Building Insulation Installer Name Role Phone Sahra Son MD Primary Care Provider + Encounter Details Date Type Department Care Team (Late st Contact Info) Description 11/21/2021 Documentation Only [facility] [place], [address] [place] [address] India Davalos [address] [place] [address] Social History Tobacco Use Types [...] filedocumented in this encounter Care Teams Building Insulation Installer Relationship Specialty Start Date End Date Sahra Son MD [address] [address] PCP - General Internal Medicine 10/28/22 documented as of this encounter
--- OUTSIDE RECORDS SUMMARY | 2024-07-13 09:44 | XMS_ITS | Encounter Summary ---
Author Organization [facility] [place], Address [address] [place] [address] Phone Care Team Providers Care Patternmaker Plaster And Plastic Name Role Phone Sahra Son MD Primary Care Provider + Encounter Details Date Type Department Care Team (Late st Contact Info) Description 08/11/2022 Documentation Only [facility] [place], [address] [place] [address] India Davalos [address] [place] [address] Social History Tobacco Use Types [...] on filedocumented in this encounter Care Teams Patternmaker Plaster And Plastic Relationship Specialty Start Date End Date Sahra Son MD [address] [address] PCP - General Internal Medicine 10/28/22 documented as of this encounter
--- OUTSIDE RECORDS SUMMARY | 2024-07-13 09:44 | XMS_ITS | Encounter Summary ---
Author Organization [facility] [place], Address [address] [place] [address] Phone Care Team Providers Care Crew Clerk Name Role Phone Sahra Son MD Primary Care Provider + Encounter Details Date Type Department Care Team (Late st Contact Info) Description 06/09/2024 Orders Only [facility] [place], [address] [place] [address] India Davalos [address] [place] [address] Anemia in chronic kidney disease; [...] (mild) documented in this encounter Care Teams Crew Clerk Relationship Specialty Start Date End Date Sahra Son MD [address] [address] PCP - General Internal Medicine 10/28/22 documented as of this encounter
--- OUTSIDE RECORDS SUMMARY | 2024-07-13 09:44 | XMS_ITS | Encounter Summary ---
Author Organization [facility] [place], Address [address] [place] [address] Phone Care Team Providers Care Crane Service Technician Name Role Phone Sahra Son MD Primary Care Provider + Encounter Details Date Type Department Care Team (Late st Contact Info) Description 03/11/2023 Documentation Only [facility] [place], [address] [place] [address] India Davalos [address] [place] [address] Social History Tobacco Use Types [...] on filedocumented in this encounter Care Teams Crane Service Technician Relationship Specialty Start Date End Date Sahra Son MD [address] [address] PCP - General Internal Medicine 10/28/22 documented as of this encounter
--- OUTSIDE RECORDS SUMMARY | 2024-07-13 09:44 | XMS_ITS | Encounter Summary ---
Author Organization [facility] [place], Address [address] [place] [address] Phone Care Team Providers Care Computer Art Instructor Name Role Phone Sahra Son MD Primary Care Provider + Encounter Details Date Type Department Care Team (Late st Contact Info) Description 12/23/2021 Documentation Only [facility] [place], [address] [place] [address] Juan Jose Li MD [address] [facility] [place] [address] Social History Tobacco Use Types [...] on filedocumented in this encounter Care Teams Computer Art Instructor Relationship Specialty Start Date End Date Sahra Son MD [address] [address] PCP - General Internal Medicine 10/28/22 documented as of this encounter
--- OUTSIDE RECORDS SUMMARY | 2024-07-13 09:44 | XMS_ITS | Encounter Summary ---
Author Organization [facility] [place], Address [address] [place] [address] Phone Care Team Providers Care Stock Fitter Name Role Phone Sahra Son MD Primary Care Provider + Encounter Details Date Type Department Care Team (Late st Contact Info) Description 11/11/2023 Documentation Only [facility] [place], [address] [place] [address] India Davalos [address] [place] [address] Social History Tobacco Use [...] filedocumented in this encounter Care Teams Stock Fitter Relationship Specialty Start Date End Date Sahra Son MD [address] [address] PCP - General Internal Medicine 10/28/22 documented as of this encounter
--- OUTSIDE RECORDS SUMMARY | 2024-07-13 09:44 | XMS_ITS | Encounter Summary ---
Author Organization [facility] [place], Address [address] [place] [address] Phone Care Team Providers Care Gum Dipper Name Role Phone Sahra Son MD Primary Care Provider + Encounter Details Date Type Department Care Team (Late st Contact Info) Description 11/11/2023 Documentation Only [facility], [address] [place] [address] India Davalos [address] [place] [address] Social History Tobacco Use Types [...] on filedocumented in this encounter Care Teams Gum Dipper Relationship Specialty Start Date End Date Sahra Son MD [address] [address] PCP - General Internal Medicine 10/28/22 documented as of this encounter
--- OUTSIDE RECORDS SUMMARY | 2024-07-13 09:44 | XMS_ITS | Encounter Summary ---
Author Organization [facility] [place], Address [address] [place] [address] Phone Care Team Providers Care Surgical Tech Name Role Phone Sahra Son MD Primary Care Provider + Encounter Details Date Type Department Care Team (Late st Contact Info) Description 12/24/2022 Documentation Only [facility], [address] [place] [address] Carol Whelan [address] [place] [address] Social History Tobacco Use Types [...] on filedocumented in this encounter Care Teams Surgical Tech Relationship Specialty Start Date End Date Sahra Son MD [address] [address] PCP - General Internal Medicine 10/28/22 documented as of this encounter
--- OUTSIDE RECORDS SUMMARY | 2024-07-13 09:44 | XMS_ITS | Encounter Summary ---
Author Organization [facility] [place], Address [address] [place] [address] Phone Care Team Providers Care Payroll Analyst Name Role Phone Sahra Son MD Primary Care Provider + Encounter Details Date Type Department Care Team (Late st Contact Info) Description 11/19/2023 Documentation Only [facility] [place], [address] [place] [address] India Davalos [address] [place] [address] Social History Tobacco Use [...] on filedocumented in this encounter Care Teams Payroll Analyst Relationship Specialty Start Date End Date Sahra Son MD [address] [address] PCP - General Internal Medicine 10/28/22 documented as of this encounter
--- OUTSIDE RECORDS SUMMARY | 2024-07-13 09:44 | XMS_ITS | Encounter Summary ---
Author Organization [facility] [place], Address [address] [place] [address] Phone Care Team Providers Care Laborer/Key Man Name Role Phone Sahra Son MD Primary Care Provider + Encounter Details Date Type Department Care Team (Late st Contact Info) Description 12/31/2023 Documentation Only [facility] [place], [address] [place] [address] India Davalos [address] [place] [address] Social History Tobacco Use Types [...] on filedocumented in this encounter Care Teams Laborer/Key Man Relationship Specialty Start Date End Date Sahra Son MD [address] [address] PCP - General Internal Medicine 10/28/22 documented as of this encounter
--- OUTSIDE RECORDS SUMMARY | 2024-07-13 09:44 | XMS_ITS | Encounter Summary ---
Author Organization [facility] [place], Address [address] [place] [address] Phone Care Team Providers Care Rock Crusher Operator Name Role Phone Sahra Son MD Primary Care Provider + Encounter Details Date Type Department Care Team (Late st Contact Info) Description 06/16/2022 Documentation Only [facility] [place], [address] [place] [address] India Davalos [address] [place] [address] Social History Tobacco Use Types [...] on filedocumented in this encounter Care Teams Rock Crusher Operator Relationship Specialty Start Date End Date Sahra Son MD [address] [address] PCP - General Internal Medicine 10/28/22 documented as of this encounter
--- OUTSIDE RECORDS SUMMARY | 2024-07-13 09:44 | XMS_ITS | Encounter Summary ---
Author Organization [facility] [place], Address [address] [place] [address] Phone Care Team Providers Care Blasting Cap Assembler Name Role Phone Sahra Son MD Primary Care Provider + Encounter Details Date Type Department Care Team (Late st Contact Info) Description 08/05/2023 Documentation Only [facility] [place], [address] [place] [address] India Davalos [address] [place] [address] Social History Tobacco Use Types [...] on filedocumented in this encounter Care Teams Blasting Cap Assembler Relationship Specialty Start Date End Date Sahra Son MD [address] [address] PCP - General Internal Medicine 10/28/22 documented as of this encounter
--- OUTSIDE RECORDS SUMMARY | 2024-07-13 09:44 | XMS_ITS | Encounter Summary ---
Author Organization [facility] Address [address] [place] [address] Phone Care Team Providers Care Sustainability Specialist Name Role Phone Sahra Son MD Primary Care Provider + Encounter Details Date Type Department Care Team (Late st Contact Info) Description 01/31/2024 Orders Only [facility] [place], [address] [place] [address] Arlene Alston PA Chronic kidney [...] (HCC) documented in this encounter Care Teams Sustainability Specialist Relationship Specialty Start Date End Date Sahra Son MD [address] [facility] [address] [place] [address] PCP - General Internal Medicine 10/28/22 documented as of this encounter
--- OUTSIDE RECORDS SUMMARY | 2024-07-13 09:44 | XMS_ITS | Encounter Summary ---
Author Organization [facility] [place], Address [address] [place] [address] Phone Care Team Providers Care Rn Advice Name Role Phone Sahra Son MD Primary Care Provider + Encounter Details Date Type Department Care Team (Late st Contact Info) Description 10/07/2021 Documentation Only [facility] [place], [address] [place] [address] India Davalos [address] [place] [address] Social History Tobacco [...] filedocumented in this encounter Care Teams Rn Advice Relationship Specialty Start Date End Date Sahra Son MD [address] [address] PCP - General Internal Medicine 10/28/22 documented as of this encounter
--- OUTSIDE RECORDS SUMMARY | 2024-07-13 09:44 | XMS_ITS | Encounter Summary ---
Author Organization [facility] [place], Address [address] [place] [address] Phone Care Team Providers Care Drapery Counselor Name Role Phone Sahra Son MD Primary Care Provider + Encounter Details Date Type Department Care Team (Late st Contact Info) Description 03/23/2024 Documentation Only [facility] [place], [address] [place] [address] nIdia Davalos [address] [place] [address] Social History Tobacco Use [...] on filedocumented in this encounter Care Teams Drapery Counselor Relationship Specialty Start Date End Date Sahra Son MD [address] [address] PCP - General Internal Medicine 10/28/22 documented as of this encounter
--- OUTSIDE RECORDS SUMMARY | 2024-07-13 09:44 | XMS_ITS | Encounter Summary ---
Author Organization [facility] Address [address] [place] [address] Phone Care Team Providers Care Oracle Iam Consultant Name Role Phone Sahra Son MD Primary Care Provider + Encounter Details Date Type Department Care Team (Late st Contact Info) Description 02/04/2024 Orders Only [facility] [place], [address] [place] [address] India Davalos [address] [place] [address] Chronic kidney disease, stage 2 [...] Glucose 169(H) 70 - 99 mg/dL [facility] BUN 16 8 - 27 mg/dL [facility] Creatinine 1.00 0.57 - 1.00 mg/dL [facility] eGFR CKD-EPI CR 2020 63 >59 mL/min/1.7 3 [facility] BUN/Creatinine Ratio 16 12 - 28 [facility] Sodium 138 134 - 144 mmol/L [facility] Potassium 4.8 3.5 - 5.2 mmol/L [facility] Chloride 100 96 - 106 mmol/L [facility] Bicarbonate (CO2) 22 20 - 29 mmol/L [facility] Calcium 9.1 8.7 - 10.3 mg/dL [facility] Albumin 4.1 3.9 - 4.9 g/dL [facility] Phosphorus 4.2 3.0 - 4.3 mg/dL [facility] Blood (Blood, Venous) 02/22/2024 8:29 AM EDT 02/22/2024 us Barry Reyes MD LAB BLOOD ORDERABLES Final Re sult [facility] [address] [place] [address] * Ferritin (02/22/2024 8:29 AM EDT) Pathologist [facility] Ferritin 47 15 - 150 ng/mL [facility] Blood (Blood, Venous) 02/22/2024 8:29 AM EDT 02/22/2024 Barry Reyes MD LAB BLOOD ORDERABLES Final Re sult Performing Organization Address City/[facility]/ZIP Co de Phone Number [facility] [address] [place] [address] * (ABNORMAL) Iron Panel (Fe, TIBC, TSAT) (02/22/2024 8:29 AM EDT) Pathologist [facility] Iron 39 27 - 139 ug/dL [facility] TIBC 310 250 - 450 ug/dL [facility] UIBC 271 118 - 369 ug/dL [facility] Iron Saturation (TSat) 13(L) 15 - 55 % [facility] Blood (Blood, Venous) 02/22/2024 8:29 AM EDT 02/22/2024 Barry Reyes MD LAB BLOOD ORDERABLES Final Re sult [facility] [address] [place] [address] * (ABNORMAL) CBC and Differential (02/22/2024 8:29 AM EDT) Pathologist [facility] WBC 5.9 3.4 - 10.8 x10E3/uL [facility] RBC 5.33(H) 3.77 - 5.28 x10E6/uL [facility] Hemoglobin 10.3(L) 11.1 - 15.9 g/dL [facility] Hematocrit 35.1 34.0 - 46.6 % [facility] MCV 66(L) 79 - 97 fL [facility] MCH 19.3(L) 26.6 - 33.0 pg [facility] MCHC 29.3(L) 31.5 - 35.7 g/dL [facility] RDW 19.3(H) 11.7 - 15.4 % [facility] Platelets 174 150 - 450 x10E3/uL [facility] Neutrophils Relative 71 Not Estab. % [facility] Lymphocytes Relative 21 Not Estab. % [facility] Monocytes 5 Not Estab. % [facility] Eosinophils Relative 1 Not Estab. % [facility] Basophils Relative 1 Not Estab. % [facility] Neutrophils Absolute 4.2 1.4 - 7.0 x10E3/uL [facility] Lymphocytes Absolute 1.3 0.7 - 3.1 x10E3/uL [facility] Monocytes Absolute 0.3 0.1 - 0.9 x10E3/uL [facility] Eosinophils Absolute 0.1 0.0 - 0.4 x10E3/uL [facility] Basophils Absolute 0.0 0.0 - 0.2 x10E3/uL [facility] Immature Granulocytes 1 Not Estab. % [facility] Immature Grans (Absolute) 0.0 0.0 - 0.1 x10E3/uL [facility] Blood (Blood, Venous) 02/22/2024 8:29 AM EDT 02/22/2024 us Barry Reyes MD LAB BLOOD ORDERABLES Final Re sult [facility] [address] [place] [address] documented in this encounter Visit Diagnoses Diagnosis Chronic kidney disease, stage 2 (mild) Anemia in chronic kidney disease Iron deficiency anemia, not otherwise specified documented in this encounter Care Teams Oracle Iam Consultant Relationship Specialty Start Date End Date Sahra Son MD [address] [place] [address] PCP - General Internal Medicine 10/28/22 documented as of this encounter
--- OUTSIDE RECORDS SUMMARY | 2024-07-13 09:44 | XMS_ITS | Encounter Summary ---
Author Organization [facility] [place], Address [address] [place] [address] Phone Care Team Providers Care Spreader Box Operator Name Role Phone Sahra Son MD Primary Care Provider + Encounter Details Date Type Department Care Team (Late st Contact Info) Description 11/11/2023 Documentation Only [facility] [place], [address] [place] [address] India Davalos [address] [place] [address] Social History Tobacco Use [...] on filedocumented in this encounter Care Teams Spreader Box Operator Relationship Specialty Start Date End Date Sahra Son MD [address] [address] PCP - General Internal Medicine 10/28/22 documented as of this encounter
--- OUTSIDE RECORDS SUMMARY | 2024-07-13 09:44 | XMS_ITS | Encounter Summary ---
Author Organization [facility] [place], Address [address] [place] [address] Phone Care Team Providers Care Appraisal Coordinator Name Role Phone Sahra Son MD Primary Care Provider + Encounter Details Date Type Department Care Team (Late st Contact Info) Description 03/11/2023 Documentation Only [facility] [place], [address] [place] [address] India Davalos [address] [place] [address] Social History Tobacco Use Types [...] on filedocumented in this encounter Care Teams Appraisal Coordinator Relationship Specialty Start Date End Date Sahra Son MD [address] [address] PCP - General Internal Medicine 10/28/22 documented as of this encounter
--- OUTSIDE RECORDS SUMMARY | 2024-07-13 09:45 | XMS_ITS | Encounter Summary ---
Author Organization [facility] Address [address] [place] [address] Care Team Providers Care Cuff Stitcher Name Role Phone Vinnie Santizo Primary Care Provider Sahra Keith MD Primary Care Provider Marko Fernandez MD Unavailable [phone] Encounter Details Date Type Department Care Team Description 05/28/2022 [facility] Medical Records [address] [place] [address] Abstract, Provider Social History Tobacco Use Types [...] filedocumented in this encounter Care Teams Cuff Stitcher Relationship Specialty Start Date End Date Vinnie Santizo PCP - General Internal Medicine 03/30/17 08/30/22 Sahra Son MD PCP - General Internal Medicine 08/31/22 Marko Spaulding MD Specialist Cardiology 09/23/22 documented as of this encounter
--- OUTSIDE RECORDS SUMMARY | 2024-07-13 09:45 | XMS_ITS | Encounter Summary ---
Author Organization [facility] Address [address] [place] [address] Phone Care Team Providers Care Foundation Stage Teacher Name Role Phone Sahra Son MD Primary Care Provider + Encounter Details Date Type Department Care Team (Late st Contact Info) Description 04/28/2024 Orders Only [facility] [place], [address] [place] [address] India Davalos [address] [place] [address] Chronic kidney disease, stage 2 [...] Glucose 153(H) 70 - 99 mg/dL [facility] BUN 17 8 - 27 mg/dL [facility] Creatinine 0.98 0.57 - 1.00 mg/dL [facility] eGFR CKD-EPI CR 2020 64 >59 mL/min/1.7 3 [facility] BUN/Creatinine Ratio 17 12 - 28 [facility] Sodium 142 134 - 144 mmol/L [facility] Potassium 5.0 3.5 - 5.2 mmol/L [facility] Chloride 106 96 - 106 mmol/L [facility] Bicarbonate (CO2) 23 20 - 29 mmol/L [facility] Calcium 8.9 8.7 - 10.3 mg/dL [facility] Albumin 3.9 3.9 - 4.9 g/dL [facility] Phosphorus 3.9 3.0 - 4.3 mg/dL [facility] Blood (Blood, Venous) 05/05/2024 9:18 AM EST 05/05/2024 us Barry Reyes MD LAB BLOOD ORDERABLES Final Re sult [facility] [address] [place] [address] * (ABNORMAL) Ferritin (05/05/2024 9:18 AM EST) Pathologist [facility] Ferritin 282(H) 15 - 150 ng/mL [facility] Blood (Blood, Venous) 05/05/2024 9:18 AM EST 05/05/2024 Barry Reyes MD LAB BLOOD ORDERABLES Final Re sult Performing Organization Address City/[facility]/ZIP Co de Phone Number [facility] [address] [place] [address] * Iron Panel (Fe, TIBC, TSAT) (05/05/2024 9:18 AM EST) Pathologist [facility] TIBC 277 250 - 450 ug/dL [facility] UIBC 210 118 - 369 ug/dL [facility] Iron 67 27 - 139 ug/dL [facility] Iron Saturation (TSat) 24 15 - 55 % [facility] Blood (Blood, Venous) 05/05/2024 9:18 AM EST 05/05/2024 Barry Reyes MD LAB BLOOD ORDERABLES Final Re sult [facility] [address] [place] [address] * (ABNORMAL) CBC and Differential (05/05/2024 9:18 AM EST) Pathologist [facility] WBC 5.6 3.4 - 10.8 x10E3/uL [facility] RBC 5.33(H) 3.77 - 5.28 x10E6/uL [facility] Hemoglobin 10.2(L) 11.1 - 15.9 g/dL [facility] Hematocrit 35.0 34.0 - 46.6 % [facility] MCV 66(L) 79 - 97 fL [facility] MCH 19.1(L) 26.6 - 33.0 pg [facility] MCHC 29.1(L) 31.5 - 35.7 g/dL [facility] RDW 20.1(H) 11.7 - 15.4 % [facility] Platelets 163 150 - 450 x10E3/uL [facility] Neutrophils Relative 64 Not Estab. % [facility] Lymphocytes Relative 26 Not Estab. % [facility] Monocytes 6 Not Estab. % [facility] Eosinophils Relative 3 Not Estab. % [facility] Basophils Relative 1 Not Estab. % [facility] Neutrophils Absolute 3.6 1.4 - 7.0 x10E3/uL [facility] Lymphocytes Absolute 1.5 0.7 - 3.1 x10E3/uL [facility] Monocytes Absolute 0.3 0.1 - 0.9 x10E3/uL [facility] Eosinophils Absolute 0.2 0.0 - 0.4 x10E3/uL [facility] Basophils Absolute 0.0 0.0 - 0.2 x10E3/uL [facility] Immature Granulocytes 0 Not Estab. % [facility] Immature Grans (Absolute) 0.0 0.0 - 0.1 x10E3/uL [facility] Blood (Blood, Venous) 05/05/2024 9:18 AM EST 05/05/2024 us Barry Reyes MD LAB BLOOD ORDERABLES Final Re sult [facility] [address] [place] [address] documented in this encounter Visit Diagnoses Diagnosis Chronic kidney disease, stage 2 (mild) Anemia in chronic kidney disease Iron deficiency anemia, not otherwise specified documented in this encounter Care Teams Foundation Stage Teacher Relationship Specialty Start Date End Date Sahra Son MD [address] [place] [address] PCP - General Internal Medicine 10/28/22 documented as of this encounter
--- OUTSIDE RECORDS SUMMARY | 2024-07-13 09:45 | XMS_ITS | Encounter Summary ---
Author Organization [facility] Address [address] [place] [address] Care Team Providers Care Process Mold Technician Name Role Phone Vinnie Santizo Primary Care Provider Sahra Keith MD Primary Care Provider Marko Fernandez MD Unavailable [phone] Reason for Visit * Reason Comments E-prescribe Rx Request Encounter Details Date Type Department Care Team Description 02/04/2018 Refill Pulmonology - [place] [address] [facility] [address] [place] [id number] Eneida Acuña NP E-prescribe Rx Request Social History Tobacco Use Types Packs/Day Years Used Date Smoking Tobacco: Every Day Cigarettes 1 1 Alcohol Use Standard Drinks/Week Comments No 0 (1 standard drink = 0.6 oz pur e alcohol) Sex Assigned at Date Recorded Not on file documented as of this encounter Miscellaneous Notes * Telephone Encounter - Lori Neff M.A. - 02/04/2018 11:25 AM EDT Has an appt with you 03/08/18 * Telephone Encounter - Miya Barajas - 02/04/2018 8:37 AM EDT Patient would like script to be: E-PRESCRIBED/FAXED TO PHARMACY WHEN WAS THE PATIENT'S LAST APPOINTMENT WITH THE PRESCRIBING PROVIDER? 10/13/17 Does patient have an upcoming appointment? Yes 03/08/18 (THE MEDICATION REQUESTED IS ON THE MED LIST ABOVE) All of the medications requested were on the CURRENT MEDS list Did you check the Pharmacy information above?: YES Patient wants: 90 -day supply Is this a mail order prescription request ? NO Patients current insurance carrier is: Payor: [employer] / Plan: [facility] / Product Type: HMO [id number] documented in this encounter Plan of Treatment Not on file documented as of this encounter Visit Diagnoses Diagnosis Cigarette smoker Tobacco use disorder Asthma, unspecified asthma severity, unspecified whether complicated, unspecified whether persistent Tobacco abuse Tobacco use disorder Systemic lupus erythematosus, unspecified SLE type, unspecified organ involvement status (HCC) Lung nodule Solitary pulmonary nodule Exacerbation of asthma, unspecified asthma severity, unspecified whether persistent documented in this encounter Care Teams Process Mold Technician Relationship Specialty Start Date End Date Vinnie Santizo PCP - General Internal Medicine 03/30/17 08/30/22 Sahra Son MD PCP - General Internal Medicine 08/31/22 Marko Spaulding MD Specialist Cardiology 09/23/22 documented as of this encounter
--- OUTSIDE RECORDS SUMMARY | 2024-07-13 09:45 | XMS_ITS | Encounter Summary ---
Author Organization [facility] Address [address] [place] [address] Care Team Providers Care Speech Language Specialist Name Role Phone Vinnie Santizo Primary Care Provider Sahra Keith MD Primary Care Provider Marko Fernandez MD Unavailable [phone] Encounter Details Date Type Department Care Team Description 11/11/2017 [facility] Medical Records [address] [place] [id number] Chela Solis MD Social History Tobacco Use [...] on filedocumented in this encounter Care Teams Speech Language Specialist Relationship Specialty Start Date End Date Vinnie Santizo PCP - General Internal Medicine 03/30/17 08/30/22 Sahra Son MD PCP - General Internal Medicine 08/31/22 Marko Spaulding MD Specialist Cardiology 09/23/22 documented as of this encounter
--- OUTSIDE RECORDS SUMMARY | 2024-07-13 09:45 | XMS_ITS | Encounter Summary ---
Author Organization [facility] Address [address] [place] [address] Care Team Providers Care Mattress Packer Name Role Phone Tammie, Pcp Primary Care Provider Vinnie Rodriguez Primary Care Provider Sahra Keith MD Primary Care Provider Paula vailable Marko Spaulding MD Unavailable Encounter Details Date Type Department Care Team Description 02/12/2015 [facility] Medical Records [address] [place] [address] Abstract, Provider Social History Tobacco Use Types [...] on filedocumented in this encounter Care Teams Mattress Packer Relationship Specialty Start Date End Date Tammie, Pcp PCP - General Internal Medicine 07/24/13 03/29/17 Vinnie Santizo PCP - General Internal Medicine 03/30/17 08/30/22 Sahra Son MD PCP - General Internal Medicine 08/31/22 Marko Spaulding MD Specialist Cardiology 09/23/22 documented as of this encounter
--- OUTSIDE RECORDS SUMMARY | 2024-07-13 09:45 | XMS_ITS | Clinical Summary ---
Author Organization [facility] Address [address] [place] [address] Care Team Providers Care Microstrategy Reports Developer Name Role Phone Sahra Son MD Primary Care Provider Marko Fernandez MD Unavailable [phone] Allergies Active Allergy Reactions Severity Noted [...] 24 hr tablet 0 10/08/2022 Active Creon 69944-21659 units CAPSULE ENTERIC COATED PARTICLES TAKE 1 CAPSULE BY MOUTH BEFORE MEALS 0 09/20/2022 Active rabeprazole (ACIPHEX) 20 MG tablet Take 1 Tablet by mouth daily. 0 08/07/2022 Active Deep Sea Nasal [place] 0.65 % nasal spray INSTILL 2 DROPS [...] Myelofibrosis Meningioma Coronary artery disease Overview: Old [place] Gout Asthma Seizures Lupus Depression Hypercoagulable state Neurogenic bladder Overview: Indwelling flowers catheter Supplemental oxygen dependent COPD (chronic obstructive pulmonary dise ase) Family History Medical History Relation Name Comments ABLATION FOR AN ARRHYTHMIA Brother HEART DISEASE Father Hypertension Father [place] Father Diabetes Mother MALIGNANT NEOPLASM Mother Relation [...] 05/2017, 09/08/2017, Additional history exists Care Teams Microstrategy Reports Developer Relationship Specialty Start Date End Date Sahra Son MD PCP - General Internal Medicine 08/31/22 Marko Spaulding MD Specialist Cardiology 09/23/22
--- OUTSIDE RECORDS SUMMARY | 2024-07-13 09:45 | XMS_ITS | Encounter Summary ---
Author Organization [facility], Address [address] [place] [address] Phone Care Team Providers Care Safety Leader Name Role Phone Sahra Son MD Primary Care Provider + Encounter Details Date Type Department Care Team (Late st Contact Info) Description 01/29/2023 Documentation Only [facility], [address] [place] [address] India Davalos [address] [place] [address] Social History Tobacco Use Types [...] on filedocumented in this encounter Care Teams Safety Leader Relationship Specialty Start Date End Date Sahra Son MD [address] [address] PCP - General Internal Medicine 10/28/22 documented as of this encounter
--- OUTSIDE RECORDS SUMMARY | 2024-07-13 09:45 | XMS_ITS | Encounter Summary ---
Author Organization [facility], Address [address] [place] [address] Phone Care Team Providers Care Middle School Technology Teacher Name Role Phone Sahra Son MD Primary Care Provider + Encounter Details Date Type Department Care Team (Late st Contact Info) Description 04/05/2024 Documentation Only [facility], [address] [place] [address] India Davalos [address] [place] [address] Social History Tobacco Use Types [...] on filedocumented in this encounter Care Teams Middle School Technology Teacher Relationship Specialty Start Date End Date Sahra Son MD [address] [address] PCP - General Internal Medicine 10/28/22 documented as of this encounter
--- OUTSIDE RECORDS SUMMARY | 2024-07-13 09:45 | XMS_ITS | Encounter Summary ---
Author Organization [facility], Address [address] [place] [address] Phone Care Team Providers Care Weights And Measures Sealer Name Role Phone Sahra Son MD Primary Care Provider + Encounter Details Date Type Department Care Team (Late st Contact Info) Description 03/31/2024 Orders Only [facility], [address] [place] [address] India Davalos [address] [place] [address] Chronic kidney disease, stage 2 [...] specified documented in this encounter Care Teams Weights And Measures Sealer Relationship Specialty Start Date End Date Sahra Son MD [address] [address] PCP - General Internal Medicine 10/28/22 documented as of this encounter
--- OUTSIDE RECORDS SUMMARY | 2024-07-13 09:45 | XMS_ITS | Encounter Summary ---
Author Organization [facility] Address [address] [place] [address] Care Team Providers Care Blocking Machine Operator Name Role Phone Vinnie Santizo Primary Care Provider Obinna Merrill MD Primary Care Provider [facility] Tammie, Pcp Primary Care Provider Vinnie Rodriguez Primary Care Provider Sahra Keith MD Primary Care Provider Paula [facility] Marko Spaulding MD Unavailable [phone] Encounter Details Date Type Department Care Team Description 09/08/1998 [facility] [address] [address] Raphael Bernstein MD SYNCOPE AND COLLAPSE Social History Tobacco Use Types Packs/Day Years Used Date Smoking Tobacco: Never Assessed Sex Assigned at Date Recorded Not on file documented as of this encounter Plan of Treatment Not on file documented as of this encounter Visit Diagnoses Diagnosis Syncope and collapse documented in this encounter Care Teams Blocking Machine Operator Relationship Specialty Start Date End Date Vinnie Santizo PCP - General 08/04/03 12/12/12 Obinna Mao MD PCP - General Internal Medicine 12/13/1207/23 [facility], Pcp PCP - General Internal Medicine 07/24/13 03/29/17 Vinnie Santizo PCP - General Internal Medicine 03/30/17 08/30/22 Sahra Son MD PCP - General Internal Medicine 08/31/22 Marko Spaulding MD Specialist Cardiology 09/23/22 documented as of this encounter
--- OUTSIDE RECORDS SUMMARY | 2024-07-13 09:45 | XMS_ITS | Encounter Summary ---
Author Organization [facility] Address [address] [place] [address] Phone Care Team Providers Care Pathology Technologist Name Role Phone Sahra Son MD Primary Care Provider + Encounter Details Date Type Department Care Team (Late st Contact Info) Description 05/01/2024 Telephone [facility], [address] [place] [address] Olesya Han [address] [place] [address] Social History Tobacco Use Types [...] encounter Miscellaneous Notes * Telephone Encounter - Olesya Han - 07/03/2024 4:17 PM EST error documented in this encounter Plan of Treatment Not on file documented as of this encounter Visit Diagnoses Not on filedocumented in this encounter Care Teams Pathology Technologist Relationship Specialty Start Date End Date Sahra Son MD [address] [id number] PCP - General Internal Medicine 10/28/22 documented as of this encounter
--- OUTSIDE RECORDS SUMMARY | 2024-07-13 09:45 | XMS_ITS | Encounter Summary ---
Author Organization [facility], Address [address] [place] [address] Phone Care Team Providers Care Pediatric Lpn Name Role Phone Sahra Son MD Primary Care Provider + Encounter Details Date Type Department Care Team (Late st Contact Info) Description 04/05/2024 Documentation Only [facility], [address] [place] [place] [address] India Davalos [address] [place] [address] Social History Tobacco Use Types [...] filedocumented in this encounter Care Teams Pediatric Lpn Relationship Specialty Start Date End Date Sahra Son MD [address] [address] PCP - General Internal Medicine 10/28/22 documented as of this encounter
--- OUTSIDE RECORDS SUMMARY | 2024-07-13 09:45 | XMS_ITS | Encounter Summary ---
Author Organization [facility] Address [address] [place] [address] Care Team Providers Care Supervisor Research Kennel Name Role Phone Tammie, Pcp Primary Care Provider Vinnie Rodriguez Primary Care Provider Sahra Keith MD Primary Care Provider Paula Marko Ferreira MD Unavailable [phone] Encounter Details Date Type Department Care Team Description 11/13/2016 [facility] Medical Records [address] [place] [address] Aniceto Michelle Social History Tobacco Use Types [...] filedocumented in this encounter Care Teams Supervisor Research Kennel Relationship Specialty Start Date End Date Tammie, Pcp PCP - General Internal Medicine 07/24/13 03/29/17 Vinnie Santizo PCP - General Internal Medicine 03/30/17 08/30/22 Sahra Son MD PCP - General Internal Medicine 08/31/22 Marko Spaulding MD Specialist Cardiology 5/10/23 documented as of this encounter
--- OUTSIDE RECORDS SUMMARY | 2024-07-13 09:45 | XMS_ITS | Encounter Summary ---
Author Organization [facility] Address [address] [place] [address] Care Team Providers Care Disbursing Agent Name Role Phone Sahra Son MD Primary Care Provider Paula vailable Marko Spaulding MD Unavailable [phone] Encounter Details Date Type Department Care Team Description 10/04/2022 Release of Information Medical Records [address] [place] [address] [facility] Social History Tobacco Use Types Packs/Day [...] on filedocumented in this encounter Care Teams Disbursing Agent Relationship Specialty Start Date End Date Sahra Son MD PCP - General Internal Medicine 08/31/22 Marko Spaulding MD Specialist Cardiology 09/23/22 documented as of this encounter
--- OUTSIDE RECORDS SUMMARY | 2024-07-13 09:45 | XMS_ITS | Encounter Summary ---
Author Organization [facility] Address [address] [place] [address] Care Team Providers Care Tube Sizer Operator Name Role Phone Vinnie Santizo Primary Care Provider Sahra Keith MD Primary Care Provider Marko Fernandez MD Unavailable [phone] Reason for Visit * Reason Comments E-prescribe Rx Request Encounter Details Date Type Department Care Team Description 11/26/2017 Refill Pulmonology - [place] [address] [facility] [address] [place] [id number] Eneida Acuña NP E-prescribe Rx Request Social [...] YES Patients current insurance carrier is: Payor: [employer] [facility] Osmosis MCR / Plan: [facility] / Product Type: HMO [id number] documented in this encounter Plan of Treatment Not on file documented as of this encounter Visit Diagnoses Diagnosis Systemic lupus erythematosus, unspecified SLE type, unspecified organ involvement status (HCC) Pulmonary nodule Solitary pulmonary nodule Tobacco abuse Tobacco use disorder Asthma, unspecified asthma severity, unspecified whether complicated, unspecified whether persistent Multiple environmental allergies Cigarette smoker Tobacco use disorder documented in this encounter Care Teams Tube Sizer Operator Relationship Specialty Start Date End Date Vinnie Santizo PCP - General Internal Medicine 03/30/17 08/30/22 Sahra Son MD PCP - General Internal Medicine 08/31/22 Marko Spaulding MD Specialist Cardiology 09/23/22 documented as of this encounter
--- OUTSIDE RECORDS SUMMARY | 2024-07-13 09:45 | XMS_ITS | Encounter Summary ---
Author Organization [facility] Address [address] [place] [address] Care Team Providers Care Testing And Regulating Technician Name Role Phone Vinnie Santizo Primary Care Provider Sahra Keith MD Primary Care Provider Marko Fernandez MD Unavailable [phone] Encounter Details Date Type Department Care Team Description 07/24/2022 [facility] Medical Records [address] [place] [address] Social History Tobacco Use Types Packs/Day Years [...] on filedocumented in this encounter Care Teams Testing And Regulating Technician Relationship Specialty Start Date End Date Vinnie Santizo PCP - General Internal Medicine 03/30/17 08/30/22 Sahra Son MD PCP - General Internal Medicine 08/31/22 Marko Spaulding MD Specialist Cardiology 09/23/22 documented as of this encounter
--- OUTSIDE RECORDS SUMMARY | 2024-07-13 09:45 | XMS_ITS | Encounter Summary ---
Author Organization [facility] [employer] [facility] Address [address] [place] [address] Care Team Providers Care Wheelchair Rental Clerk Name Role Phone Vinnie Santizo Primary Care Provider Sahra Keith MD Primary Care Provider Marko Fernandez MD Unavailable [phone] Encounter Details Date Type Department Care Team Description 08/19/2017 Concrete Sculptor Report Medical Records [address] [place] [address] Abstract, Provider Social History Tobacco Use Types [...] on filedocumented in this encounter Care Teams Wheelchair Rental Clerk Relationship Specialty Start Date End Date Vinnie Santizo PCP - General Internal Medicine 03/30/17 08/30/22 Sahra Son MD PCP - General Internal Medicine 08/31/22 Marko Spaulding MD Specialist Cardiology 09/23/22 documented as of this encounter
--- OUTSIDE RECORDS SUMMARY | 2024-07-13 09:45 | XMS_ITS | Encounter Summary ---
Author Organization [facility], Address [address] [place] [address] Phone Care Team Providers Care Refuse And Recycling Worker Name Role Phone Sahra Son MD Primary Care Provider + Encounter Details Date Type Department Care Team (Late st Contact Info) Description 01/29/2023 Documentation Only [facility], [address] [place] [address] India Davalos [address] [place] [address] Social History Tobacco Use Types [...] on filedocumented in this encounter Care Teams Refuse And Recycling Worker Relationship Specialty Start Date End Date Sahra Son MD [address] [address] PCP - General Internal Medicine 10/28/22 documented as of this encounter
--- OUTSIDE RECORDS SUMMARY | 2024-07-13 09:45 | XMS_ITS | Encounter Summary ---
Author Organization [facility], Address [address] [place] [address] Phone Care Team Providers Care Mussel Opener Name Role Phone Sahra Son MD Primary Care Provider + Encounter Details Date Type Department Care Team (Late st Contact Info) Description 02/01/2023 Documentation Only [facility], [address] [place] [address] India Davalos [address] [place] [address] Social History Tobacco Use Types [...] on filedocumented in this encounter Care Teams Mussel Opener Relationship Specialty Start Date End Date Sahra Son MD [address] [address] PCP - General Internal Medicine 10/28/22 documented as of this encounter
--- OUTSIDE RECORDS SUMMARY | 2024-07-13 09:45 | XMS_ITS | Encounter Summary ---
Author Organization [facility], Address [address] [place] [address] Phone Care Team Providers Care Chemical Project Engineer Name Role Phone Sahar Son MD Primary Care Provider + Encounter Details Date Type Department Care Team (Late st Contact Info) Description 10/30/2022 Documentation Only [facility], [address] [place] [address] India Davalos [address] [place], [place] [...] filedocumented in this encounter Care Teams Chemical Project Engineer Relationship Specialty Start Date End Date Sahra Son MD [address] [address] PCP - General Internal Medicine 10/28/22 documented as of this encounter
--- OUTSIDE RECORDS SUMMARY | 2024-07-13 09:45 | XMS_ITS | Encounter Summary ---
Author Organization [facility] Address [address] [place] [address] Care Team Providers Care Maintenance Supervisor Mechanical Name Role Phone Sahra Son MD Primary Care Provider Paula vailable Marko Spaulding MD Unavailable [phone] Encounter Details Date Type Department Care Team Description 09/15/2022 [facility] Medical Records [address] [place] [address] Abstract, Provider Social History Tobacco Use Types [...] filedocumented in this encounter Care Teams Maintenance Supervisor Mechanical Relationship Specialty Start Date End Date Sahra Son MD PCP - General Internal Medicine 08/31/22 Marko Spaulding MD Specialist Cardiology 09/23/22 documented as of this encounter
--- OUTSIDE RECORDS SUMMARY | 2024-07-13 09:45 | XMS_ITS | Encounter Summary ---
Author Organization [facility] Address [address] [place] [address] Care Team Providers Care Plaster Applicator Name Role Phone Obinna Mao MD Primary Care Provider Unavailable Tammie, Pcp Primary Care Provider Vinnie Rodriguez Primary Care Provider Sahra Keith MD Primary Care Provider Paula vailable Marko Spaulding MD Unavailable [phone] Encounter Details Date Type Department Care Team Description 12/28/2012 Release of Information Medical Records [address] [place] [address] Abstract, Provider Social History Tobacco Use Types [...] on filedocumented in this encounter Care Teams Plaster Applicator Relationship Specialty Start Date End Date Obinna Mao MD PCP - General Internal Medicine 12/13/1207/23 [facility], Pcp PCP - General Internal Medicine 07/24/13 03/29/17 Vinnie Santizo PCP - General Internal Medicine 03/30/17 08/30/22 Sahra Son MD PCP - General Internal Medicine 08/31/22 Marko Spaulding MD Specialist Cardiology 09/23/22 documented as of this encounter
--- OUTSIDE RECORDS SUMMARY | 2024-07-13 09:45 | XMS_ITS | Encounter Summary ---
Author Organization [facility] Address [address] [place] [address] Phone Care Team Providers Care Photoengraving Etcher Name Role Phone Sahra Son MD Primary Care Provider + Encounter Details Date Type Department Care Team (Late st Contact Info) Description 05/26/2024 Orders Only [facility], [address] [place] [address] India Davalos [address] [place] [address] Chronic kidney disease, stage 2 [...] Glucose 168(H) 70 - 99 mg/dL [facility] BUN 17 8 - 27 mg/dL [facility] Creatinine 1.09(H) 0.57 - 1.00 mg/dL [facility] eGFR CKD-EPI CR 2020 57(L) >59 mL/min/1.7 3 [facility] BUN/Creatinine Ratio 16 12 - 28 [facility] Sodium 137 134 - 144 mmol/L [facility] Potassium 4.8 3.5 - 5.2 mmol/L [facility] Chloride 99 96 - 106 mmol/L [facility] Bicarbonate (CO2) 23 20 - 29 mmol/L [facility] Calcium 9.0 8.7 - 10.3 mg/dL [facility] Albumin 4.2 3.9 - 4.9 g/dL [facility] Phosphorus 4.4(H) 3.0 - 4.3 mg/dL [facility] Blood (Blood, Venous) 06/07/2024 11:53 AM EST 06/07/2024 us Barry Reyes MD LAB BLOOD ORDERABLES Final Re sult [facility] [address] [place] [address] * Ferritin (06/07/2024 11:53 AM EST) Pathologist [facility] Ferritin 102 15 - 150 ng/mL [facility] Blood (Blood, Venous) 06/07/2024 11:53 AM EST 06/07/2024 Barry Reyes MD LAB BLOOD ORDERABLES Final Re sult Performing Organization Address [facility] Co de Phone Number [facility] [address] [place] [address] * Iron Panel (Fe, TIBC, TSAT) (06/07/2024 11:53 AM EST) Pathologist [facility] TIBC 262 250 - 450 ug/dL [facility] UIBC 205 118 - 369 ug/dL [facility] Iron 57 27 - 139 ug/dL [facility] Iron Saturation (TSat) 22 15 - 55 % [facility] Blood (Blood, Venous) 06/07/2024 11:53 AM EST 06/07/2024 Barry Reyes MD LAB BLOOD ORDERABLES Final Re sult [facility] [address] [place] [address] * (ABNORMAL) CBC and Differential (06/07/2024 11:53 AM EST) Pathologist [facility] WBC 5.5 3.4 - 10.8 x10E3/uL [facility] RBC 5.76(H) 3.77 - 5.28 x10E6/uL [facility] Hemoglobin 11.1 11.1 - 15.9 g/dL [facility] Hematocrit 38.4 34.0 - 46.6 % [facility] MCV 67(L) 79 - 97 fL [facility] MCH 19.3(L) 26.6 - 33.0 pg [facility] MCHC 28.9(L) 31.5 - 35.7 g/dL [facility] RDW 18.8(H) 11.7 - 15.4 % [facility] Platelets 162 150 - 450 x10E3/uL [facility] Neutrophils Relative 59 Not Estab. % [facility] Lymphocytes Relative 31 Not Estab. % [facility] Monocytes 6 Not Estab. % [facility] Eosinophils Relative 2 Not Estab. % [facility] Basophils Relative 1 Not Estab. % [facility] Neutrophils Absolute 3.3 1.4 - 7.0 x10E3/uL [facility] Lymphocytes Absolute 1.7 0.7 - 3.1 x10E3/uL [facility] Monocytes Absolute 0.3 0.1 - 0.9 x10E3/uL [facility] Eosinophils Absolute 0.1 0.0 - 0.4 x10E3/uL [facility] Basophils Absolute 0.0 0.0 - 0.2 x10E3/uL [facility] Immature Granulocytes 1 Not Estab. % [facility] Immature Grans (Absolute) 0.0 0.0 - 0.1 x10E3/uL [facility] Blood (Blood, Venous) 06/07/2024 11:53 AM EST 06/07/2024 us Barry Reyes MD LAB BLOOD ORDERABLES Final Re sult [facility] [address] [place] [address] documented in this encounter Visit Diagnoses Diagnosis Chronic kidney disease, stage 2 (mild) Anemia in chronic kidney disease Iron deficiency anemia, not otherwise specified documented in this encounter Care Teams Photoengraving Etcher Relationship Specialty Start Date End Date Sahra Son MD [address] [place] [address] PCP - General Internal Medicine 10/28/22 documented as of this encounter
--- OUTSIDE RECORDS SUMMARY | 2024-07-13 09:45 | XMS_ITS | Encounter Summary ---
Author Organization [facility], Address [address] [place] [address] Phone Care Team Providers Care Vamper Name Role Phone Sahra Son MD Primary Care Provider + Encounter Details Date Type Department Care Team (Late st Contact Info) Description 06/25/2021 Documentation Only [facility], [address] [place] [address] India Davalos [address] [place] [address] Social History Tobacco Use Types [...] on filedocumented in this encounter Care Teams Vamper Relationship Specialty Start Date End Date Sahra Son MD [address] [address] PCP - General Internal Medicine 10/28/22 documented as of this encounter
--- OUTSIDE RECORDS SUMMARY | 2024-07-13 09:45 | XMS_ITS | Clinical Summary ---
Author Organization [facility] Address [address] [place] [address] Care Team Providers Care Chocolate Packer Name Role Phone Geovani Natalie Carmelo ESPARZA Primary Care Provider [phone] Allergies Active Allergy Reactions Criticality Noted Date [...] 1 10/04/2016 Active ergocalciferol (VITAMIN D2) capsule 92661 units TK ONE C PO TWICE A [...] times a day. 0 04/27/2022 Active pancrelipase, Nod-Fbkn-Zamk, (Creon) [address] units CPEP TK ONE C PO TID [...] age to complete this topic Care Teams Chocolate Packer Relationship Specialty Start Date End Date Natalie Olivo APRN [address] [place] [address] PCP - General Photo Booth Operator 04/30/22
--- OUTSIDE RECORDS SUMMARY | 2024-07-13 09:45 | XMS_ITS | Clinical Summary ---
Author Organization [facility], Address [address] [place] [address] [place] [address] Phone Care Team Providers Care Electric Mule Operator Name Role Phone Sahra Son MD Primary Care Provider + Allergies Active Allergy Reactions Criticality Noted Date Comments Codeine 12/26/2012 Ferumoxytol Shortness of breath,Itching,Other (see comments) High 02/27/2022 Bones hurt Iodinated Contrast Media 07/06/2022 Penicillins 12/26/2012 Other Shellfish Allergy 12/26/2012 Tramadol 07/06/2022 Trazodone 03/08/2018 Iron Sucrose 02/29/2024 Coughing fit infusion stopped at [facility] Medications Cymbalta [address] capsule TK 2 CS PO QAM 12/28/19 20 Active LORazepam (ATIVAN) 1 MG tablet TK 1 T PO BID 12/24/19 20 Active meclizine (ANTIVERT) 25 MG tablet TK 1 T PO TID PRN 12/24/19 20 Active montelukast (SINGULAIR) 10 MG tablet TK 1 T PO QD IN THE DARCY 11/19/19 20 Active Creon 90258-10359 units capsule TK ONE C PO TID [...] Encounters Date Type Department Care Team Description 07/07/2024 Orders Only [facility] [address] [place] [address] [place], [place] Anemia in chronic kidney disease; Other iron deficiency anemia; Chronic kidney disease, stage 2 (mild) 06/23/2024 Orders Only [facility] [address] [place] [address] [place], [place] Chronic kidney disease, stage 2 (mild); Anemia in chronic kidney disease; Iron deficiency anemia, not otherwise specified 06/09/2024 Orders Only [facility] [address] [place] [address] [place], [place] Anemia in chronic kidney disease; Other iron deficiency anemia; Chronic kidney disease, stage 2 (mild) 06/05/2024 Telephone [facility] [address] [place] [address] Stephanie Azul, scientific laboratory supervisor reminder 05/26/2024 Orders Only [facility] [address] [place] [address] [place], [place] Chronic kidney disease, stage 2 (mild); Anemia in chronic kidney disease; Iron deficiency anemia, not otherwise specified 05/05/2024 Telephone [facility] [address] [place] [address] [place], [place] 05/05/2024 Orders Only [facility] [address] [place] [address] Kaylyn Vargas Anemia in chronic kidney disease; Iron deficiency anemia, not otherwise specified; Chronic kidney disease, stage 2 (mild) 05/01/2024 Telephone [facility] [address] [place] [address] Olesya Han 05/01/2024 Telephone [facility] [address] [place] [phone] Olesya Han 04/28/2024 Orders Only [facility] [address] [place] [phone] [place] Chronic kidney disease, stage 2 (mild); Anemia [...] 03/22/2024 2:59 PM EST Plan of Treatment Health Maintenance Due Date [...] TIBC 262 250 - 450 ug/dL [facility] UIBC 205 118 - 369 ug/dL [facility] Iron 57 27 - 139 ug/dL [facility] Iron Saturation (TSat) 22 15 - 55 % [facility] Blood (Blood, Venous) 06/07/2024 11:53 AM EST 06/07/2024 us Barry Reyes MD LAB BLOOD ORDERABLES Final Re sult [facility] [address] [place] [address] * (ABNORMAL) CBC and Differential (06/07/2024 11:53 AM EST) Only the most recent of2 resultswithin the time period is included. WBC 5.5 3.4 - 10.8 x10E3/uL [facility] RBC 5.76(H) 3.77 - 5.28 x10E6/uL [facility] Hemoglobin 11.1 11.1 - 15.9 g/dL [facility] Hematocrit 38.4 34.0 - 46.6 % [facility] MCV 67(L) 79 - 97 fL [facility] MCH 19.3(L) 26.6 - 33.0 pg [facility] MCHC 28.9(L) 31.5 - 35.7 g/dL [facility] RDW 18.8(H) 11.7 - 15.4 % [facility] Platelets 162 150 - 450 x10E3/uL [facility] Neutrophils Relative 59 Not Estab. % [facility] Lymphocytes Relative 31 Not Estab. % [facility] Monocytes 6 Not Estab. % [facility] Eosinophils Relative 2 Not Estab. % [facility] Basophils Relative 1 Not Estab. % [facility] Neutrophils Absolute 3.3 1.4 - 7.0 x10E3/uL [facility] Lymphocytes Absolute 1.7 0.7 - 3.1 x10E3/uL [facility] Monocytes Absolute 0.3 0.1 - 0.9 x10E3/uL [facility] Eosinophils Absolute 0.1 0.0 - 0.4 x10E3/uL [facility] Basophils Absolute 0.0 0.0 - 0.2 x10E3/uL [facility] Immature Granulocytes 1 Not Estab. % [facility] Immature Grans (Absolute) 0.0 0.0 - 0.1 x10E3/uL [facility] Blood (Blood, Venous) 06/07/2024 11:53 AM EST 06/07/2024 Barry Reyes MD LAB BLOOD ORDERABLES Final Re sult Performing Organization Address City/[facility]/ZIP Co de Phone Number [facility] [address] [place] [address] * Ferritin (06/07/2024 11:53 AM EST) Only the most recent of2 resultswithin the time period is included. Ferritin 102 15 - 150 ng/mL [facility] Blood (Blood, Venous) 06/07/2024 11:53 AM EST 06/07/2024 Barry Reyes MD LAB BLOOD ORDERABLES Final Re sult [facility] [address] [place] [address] * (ABNORMAL) Renal Function Panel (06/07/2024 11:53 AM EST) Only the most recent of2 resultswithin the time period is included. Glucose 168(H) 70 - 99 mg/dL [facility] BUN 17 8 - 27 mg/dL [facility] Creatinine 1.09(H) 0.57 - 1.00 mg/dL [facility] eGFR CKD-EPI CR 2020 57(L) >59 mL/min/1.7 3 [facility] BUN/Creatinine Ratio 16 12 - 28 [facility] Sodium 137 134 - 144 mmol/L [facility] Potassium 4.8 3.5 - 5.2 mmol/L [facility] Chloride 99 96 - 106 mmol/L [facility] Bicarbonate (CO2) 23 20 - 29 mmol/L [facility] Calcium 9.0 8.7 - 10.3 mg/dL [facility] Albumin 4.2 3.9 - 4.9 g/dL [facility] Phosphorus 4.4(H) 3.0 - 4.3 mg/dL [facility] Blood (Blood, Venous) 06/07/2024 11:53 AM EST 06/07/2024 us Barry Reyes MD LAB BLOOD ORDERABLES Final Re sult [facility] [address] [place] [address] * (ABNORMAL) Hemoglobin A1c (06/08/2023 8:36 AM EST) Hemoglobin A1C 7.2(H) (4.0-5.6) % [facility] Comment: MONITORING: In known diabetic patients, hemoglobin A1c targets should be discussed with health care provider. DIAGNOSTIC USE: ??The [place] Diabetes Association (ADA) and the World Health [...] Supplement 1 Testing performed or reported by [facility], a Service of [facility], [address] [place] [id number] Luis A Bailey MD, Group Social Worker [facility]# [id number] Blood (Blood, Venous) 06/08/2023 8:36 AM EST 06/08/2023 8:38 AM EST Arlene CARTER LAB BLOOD ORDERABLES Final Re sult [facility] from Last 3 Months or Most Recently Relevant to Health Maintenance Insurance [facility] ONE CARE DUAL SNP ([id number]) [place] [id number] Care Teams Electric Mule Operator Relationship Specialty Start Date End Date Sahra Son MD [address] [place] [address] PCP - General Internal Medicine 10/28/22
--- OUTSIDE RECORDS SUMMARY | 2024-07-13 09:45 | XMS_ITS | Encounter Summary ---
Author Organization [facility], Address [address] [place] [address] Phone Care Team Providers Care Load Haul Dump Operator Name Role Phone Sahra Son MD Primary Care Provider + Encounter Details Date Type Department Care Team (Late st Contact Info) Description 07/03/2021 Documentation Only [facility], [address] [facility] [place] [address] Juan Jose Li MD [address] [facility] [place] [address] Social History Tobacco Use Types [...] on filedocumented in this encounter Care Teams Load Haul Dump Operator Relationship Specialty Start Date End Date Sahra Son MD [address] [address] PCP - General Internal Medicine 10/28/22 documented as of this encounter
--- OUTSIDE RECORDS SUMMARY | 2024-07-13 09:45 | XMS_ITS | Encounter Summary ---
Author Organization [facility], Address [address] [place] [address] Phone Care Team Providers Care Injection Molding Machine Tender Name Role Phone Sahra Son MD Primary Care Provider + Encounter Details Date Type Department Care Team (Late st Contact Info) Description 10/26/2022 Documentation Only [facility] [place], [address] [place] [address] [place] Davalos [address] [place] [address] Social History Tobacco Use Types [...] on filedocumented in this encounter Care Teams Injection Molding Machine Tender Relationship Specialty Start Date End Date Sahra Son MD [address] [address] PCP - General Internal Medicine 10/28/22 documented as of this encounter
--- OUTSIDE RECORDS SUMMARY | 2024-07-13 09:45 | XMS_ITS | Encounter Summary ---
Author Organization [facility] Address [address] [place] [address] Care Team Providers Care Ion Implant Machine Operator Name Role Phone Vinnie Santizo Primary Care Provider Sahra Keith MD Primary Care Provider Marko Fernandez MD Unavailable [phone] Encounter Details Date Type Department Care Team Description 11/23/2018 [facility] [address] [place] [address] Arnoldo Eden PA-C Social History Tobacco Use [...] on filedocumented in this encounter Care Teams Ion Implant Machine Operator Relationship Specialty Start Date End Date Vinnie Santizo PCP - General Internal Medicine 03/30/17 08/30/22 Sahra Son MD PCP - General Internal Medicine 08/31/22 Marko Spaulding MD Specialist Cardiology 09/23/22 documented as of this encounter
--- OUTSIDE RECORDS SUMMARY | 2024-07-13 09:45 | XMS_ITS | Encounter Summary ---
Author Organization [facility] Address [address] [place] [address] Care Team Providers Care Babysitter Name Role Phone Vinnie Santizo Primary Care Provider Sahra Keith MD Primary Care Provider Marko Fernandez MD Unavailable [phone] Encounter Details Date Type Department Care Team Description 08/10/2018 [facility] Medical Records [address] [place] [address] Abstract, Provider Social History Tobacco Use Types [...] on filedocumented in this encounter Care Teams Babysitter Relationship Specialty Start Date End Date Vinnie Santizo PCP - General Internal Medicine 03/30/17 08/30/22 Sahra Son MD PCP - General Internal Medicine 08/31/22 Marko Spaulding MD Specialist Cardiology 09/23/22 documented as of this encounter
--- OUTSIDE RECORDS SUMMARY | 2024-07-13 09:46 | XMS_ITS | Encounter Summary ---
Author Organization [facility], Address [address] [place] [address] Phone Care Team Providers Care Plant Production Worker Name Role Phone Sahra Son MD Primary Care Provider + Encounter Details Date Type Department Care Team (Late st Contact Info) Description 06/23/2024 Orders Only [facility], [address] [place] [address] [place] Davalos [address] [place] [address] Chronic kidney disease, stage 2 [...] specified documented in this encounter Care Teams Plant Production Worker Relationship Specialty Start Date End Date Sahra Son MD [address] [address] PCP - General Internal Medicine 10/28/22 documented as of this encounter
--- OUTSIDE RECORDS SUMMARY | 2024-07-13 09:46 | XMS_ITS | Encounter Summary ---
Author Organization [facility] Address [address] [place] [address] Care Team Providers Care Remote Encoding Operations Supervisor Name Role Phone Sahra Son MD Primary Care Provider Paula daryilable Marko Spaulding MD Unavailable [phone] Encounter Details Date Type Department Care Team Description 12/17/2022 Orders Only Medical Records [address] [place] [address] Abstract, Provider Social History Tobacco Use Types [...] Name Priority Date/Time Associated Diagnosis Comments OUTSIDE SLEEP STUDY Routine 09/09/2022 documented in this encounter Results * OUTSIDE SLEEP STUDY (09/09/2022) Provider Abstract PULMONOLOGY documented in this encounter Visit Diagnoses Not on filedocumented in this encounter Care Teams Remote Encoding Operations Supervisor Relationship Specialty Start Date End Date Sahra Son MD PCP - General Internal Medicine 08/31/22 Marko Spaulding MD Specialist Cardiology 09/23/22 documented as of this encounter
--- NOTE | 2024-07-13 09:48 | MHC.OFFVISCO ---
Intake Intake Visit Reasons: Anticoagulation Allergies codeine [Codeine] Allergy (Severe, Verified 07/13/24 09:26) DIFFICULTY BREATHING Penicillins Allergy (Severe, Verified 07/13/24 09:26) RASH penicillin V Allergy (Intermediate, Verified 07/13/24 09:26) RASH tramadol [Ultram] Allergy (Unknown, Verified 07/13/24 09:26) hallucinations Shellfish Allergy (Severe, Uncoded 07/13/24 09:26) THROAT SWELLING Contrast Allergy PreMed Pack Allergy (Unknown, Uncoded 07/13/24 09:26) TREAT WITH BENADRYL ferrlecit Adverse Reaction (Intermediate, Uncoded 07/13/24 09:26) Rash Medication List - Last Reconciled 07/13/24 by Tangela Sam RN atorvastatin 80 mg PO DAILY blood sugar diagnostic As directed clonidine HCl 0.1 mg PO BID dapagliflozin propanediol (Farxiga) 10 mg PO DAILY diphenhydramine HCl (Banophen) mg PO duloxetine 120 mg PO QAM epoetin marj (Procrit) 2,000 units subcut 3XW fluticasone propion-salmeterol 100-50 mcg/dose ea inhalation gabapentin 100 mg PO TID hydrocortisone 2.5% appl topical insulin glargine (Lantus Solostar U-100 Insulin) 10 units subcut QPM ipratropium-albuterol 0.5 mg-3 mg(2.5 mg base)/3 mL mL inhalation ipratropium-albuterol 20-100 mcg/actuation 1 puff PO QID lancets As directed lancets As directed latanoprost 0.005% drps ophthalmic (eye) linagliptin (Tradjenta) 5 mg PO DAILY osmwza-pzjguirs-wytcdbp 24,000-76,000 -120,000 unit 1 cap PO TID ckdgyo-fhgcyhji-rpqkous 24,000-76,000 -120,000 unit (Creon) 1 cap PO TID loratadine 10 mg PO DAILY PRN lorazepam 1 mg PO BID meclizine mg PO montelukast 10 mg PO BEDTIME nifedipine ER 30 mg PO DAILY ondansetron 4 mg PO Q8H PRN oxcarbazepine (Trileptal) 1 tab qhs x's 1 week then 1 tab bid orally .; 30 days polyethylene glycol 3350 grams PO [procrit pt states she receives it weekly ] quetiapine 200 mg PO BEDTIME rabeprazole 20 mg PO DAILY ropinirole 0.25 mg PO BEDTIME sodium chloride 0.65% (Deep Sea Nasal) sprays intranasal Q2H PRN triamcinolone acetonide 0.1% appl topical warfarin 2.5 mg See Protocol PO DAILY Nursing Note INR 1.9 out of therapeutic range Medications and supplements reviewed Patient status: Pt started oxcarbazepine 07/06/24 once daily for now - can lower the INR - supposed to increase to bid but she is too tired with it and going to wait another week as her body adjusts to the med Medications or supplements: pt to review printed list and update and bring back Diet: fair Denies any signs and symptoms of bleeding or clotting or unusual bruising Bleeding, bruising, clotting discussed Nutritional guidance given: eat a mix of fruits and vegetables that she can tolerate to balance her INR Dose: increase slightly due to hx of hemrroidal bleeding 5mg x1 day/ 3.75mg x 6 days F/U INR Date : 10 days Patient verbalizing understanding of instructions given with read back . 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
== END 2024-07-13 09:51 | disposition home or self-care (01) ==
LOC: HO.ACS 09:01
PROVIDERS: PCP Internal Medicine; Visit Provider Internal Medicine
DX: Z79.01 Long term (current) use of anticoagulants (principal)

== ENCOUNTER → 2024-07-13 09:01 | Outpatient (BNVA) | payer OTHER, SELFPAY | PROVIDERS: PCP Internal Medicine; Visit Provider Internal Medicine | DX: Z86.718 Personal history of other venous thrombosis and embolism (principal); Z79.01 Long term (current) use of anticoagulants; Z51.81 Encounter for therapeutic drug level monitoring | CPT/HCPCS: 85610; 99211 ==

== ENCOUNTER 2024-07-24 09:05 | Outpatient (AMB) | payer OTHER, SELFPAY ==
[2024-07-24 09:29] LABS: Prothrombin Time Whole Bld POC 25.1 sec (11.1-13.5); ~PT, ~INR - Anti Coag Clinic 2.1 (0.9-1.1)
--- OUTSIDE RECORDS SUMMARY | 2024-07-24 09:35 | XMS_ITS | Encounter Summary ---
Author Organization [facility] [employer] [facility] Address [address] [place] [address] Care Team Providers Care Photographers' Model Name Role Phone Sahra Son MD Primary Care Provider Paula daryilaMarko Perales MD Unavailable [phone] Reason for Visit * Reason Onset Date Comments Prior Authorization 09/01/2022 CT CHEST Encounter Details Date Type Department Care Team Description 09/01/2022 Telephone Pulmonology - [place] [address] [facility] [address] [place] [phone] Betty Morillo MD [address] [facility] [address] [place] [phone] Prior Authorization (CT CHEST) Social History Tobacco [...] Ref#: Barbara Gann on 09/09 @ 11:31 [id number] * Telephone Encounter - Dilcia [facility]annon - 09/01/2022 1:20 PM EDT [facility] - Auth Pending (7-14 days to process) Auth request, clinicals and Rad report faxed to [facility]. [id number] documented in this encounter Plan of Treatment Not on file documented as of this encounter Visit Diagnoses Not on filedocumented in this encounter Care Teams Photographers' Model Relationship Specialty Start Date End Date Sahra Son MD PCP - General Internal Medicine 08/31/22 Marko Spaulding MD Specialist Cardiology 09/23/22 documented as of this encounter
--- OUTSIDE RECORDS SUMMARY | 2024-07-24 09:35 | XMS_ITS | Encounter Summary ---
Author Organization [facility] Address [address] [place] [address] Care Team Providers Care Photogrammetric Surveyor Name Role Phone Sahra Son MD Primary Care Provider Marko Fernandez MD Unavailable [phone] Encounter Details Date Type Department Care Team Description 09/02/2022 Telephone Pulmonology - [place] [address] [facility] [address] [place] [phone] Betty Morillo MD [address] [facility] [address] [place] [phone] Social History Tobacco Use Types Packs/Day Years [...] pcp [facility] requesting last office notes fax [phone] documented in this encounter Plan of Treatment Not on file documented as of this encounter Visit Diagnoses Not on filedocumented in this encounter Care Teams Photogrammetric Surveyor Relationship Specialty Start Date End Date Sahra Son MD PCP - General Internal Medicine 08/31/22 Marko Spaulding MD Specialist Cardiology 09/23/22 documented as of this encounter
--- OUTSIDE RECORDS SUMMARY | 2024-07-24 09:35 | XMS_ITS | Encounter Summary ---
Author Organization [facility], Address [address] [place] [address] Phone Care Team Providers Care Electronic Warfare Operator Name Role Phone Sahra Son MD Primary Care Provider + Encounter Details Date Type Department Care Team (Late st Contact Info) Description 06/18/2021 Documentation Only [facility], [address] [place] [address] [place] Davalos [address] [place] [address] Social History Tobacco Use Types [...] on filedocumented in this encounter Care Teams Electronic Warfare Operator Relationship Specialty Start Date End Date Sahra Son MD [address] [address] PCP - General Internal Medicine 10/28/22 documented as of this encounter
--- OUTSIDE RECORDS SUMMARY | 2024-07-24 09:36 | XMS_ITS | Encounter Summary ---
Author Organization [facility], Address [address] [place] [address] Phone Care Team Providers Care Lead Generation Marketing Manager Name Role Phone Sahra Son MD Primary Care Provider + Encounter Details Date Type Department Care Team (Late st Contact Info) Description 09/28/2022 Documentation Only [facility] [place], [address] [place] [address] India Davalos [address] [place] [address] Social History Tobacco Use Types [...] filedocumented in this encounter Care Teams Lead Generation Marketing Manager Relationship Specialty Start Date End Date Sahra Son MD [address] [address] PCP - General Internal Medicine 10/28/22 documented as of this encounter
--- OUTSIDE RECORDS SUMMARY | 2024-07-24 09:36 | XMS_ITS | Encounter Summary ---
Author Organization [facility], Address [address] [place] [address] Phone Care Team Providers Care Community Center Coordinator Name Role Phone Sahra Son MD Primary Care Provider + Encounter Details Date Type Department Care Team (Late st Contact Info) Description 01/04/2024 Documentation Only [facility], [address] [place] [address] India Davalos [address] [place] [address] Social History Tobacco Use Types [...] filedocumented in this encounter Care Teams Community Center Coordinator Relationship Specialty Start Date End Date Sahra Son MD [address] [address] PCP - General Internal Medicine 10/28/22 documented as of this encounter
--- OUTSIDE RECORDS SUMMARY | 2024-07-24 09:36 | XMS_ITS | Encounter Summary ---
Author Organization [employer] [facility] Address [address] [place] [address] Care Team Providers Care Director Organizational Name Role Phone Vinnie Santizo Primary Care Provider Sahra Keith MD Primary Care Provider Marko Fernandez MD Unavailable [phone] Encounter Details Date Type Department Care Team Description 08/24/2022 Hospital Medical Records [address] [place] [address] Social History Tobacco Use Types Packs/Day Years [...] Date/Time Associated Diagnosis Comments OUTSIDE CT Routine 08/24/2022 OUTSIDE LAB Routine 08/24/2022 documented in this encounter Results * OUTSIDE CT (08/24/2022) Provider Abstract RADIOLOGY * OUTSIDE LAB (08/24/2022) Provider Abstract LAB documented in this encounter Visit Diagnoses Not on filedocumented in this encounter Care Teams Director Organizational Relationship Specialty Start Date End Date Vinnie Santizo PCP - General Internal Medicine 03/30/17 08/30/22 Sahra Son MD PCP - General Internal Medicine 08/31/22 Marko Spaulding MD Specialist Cardiology 09/23/22 documented as of this encounter
--- OUTSIDE RECORDS SUMMARY | 2024-07-24 09:36 | XMS_ITS | Encounter Summary ---
Author Organization [facility] Address [address] [place] [address] Phone Care Team Providers Care Graduate Nurse Name Role Phone Sahra Son MD Primary Care Provider + Encounter Details Date Type Department Care Team (Late st Contact Info) Description 02/04/2024 Orders Only [facility], [address] [place] [address] India Davalos [address] [place] [address] Chronic kidney disease, stage 2 [...] Glucose 169(H) 70 - 99 mg/dL [facility] BUN 16 8 - 27 mg/dL [facility] Creatinine 1.00 0.57 - 1.00 mg/dL [facility] eGFR CKD-EPI CR 2020 63 >59 mL/min/1.7 3 [facility] BUN/Creatinine Ratio 16 12 - 28 [facility] Sodium 138 134 - 144 mmol/L [facility] Potassium 4.8 3.5 - 5.2 mmol/L [facility] Chloride 100 96 - 106 mmol/L [facility] Bicarbonate (CO2) 22 20 - 29 mmol/L [facility] Calcium 9.1 8.7 - 10.3 mg/dL [facility] Albumin 4.1 3.9 - 4.9 g/dL [facility] Phosphorus 4.2 3.0 - 4.3 mg/dL [facility] Blood (Blood, Venous) 02/22/2024 8:29 AM EDT 02/22/2024 us Barry Reyes MD LAB BLOOD ORDERABLES Final Re sult [facility] [address] [place] [address] * Ferritin (02/22/2024 8:29 AM EDT) Pathologist [facility] Ferritin 47 15 - 150 ng/mL [facility] Blood (Blood, Venous) 02/22/2024 8:29 AM EDT 02/22/2024 Barry Reyes MD LAB BLOOD ORDERABLES Final Re sult Performing Organization Address City/[facility]/ZIP Co de Phone Number [facility] [address] [place] [address] * (ABNORMAL) Iron Panel (Fe, TIBC, TSAT) (02/22/2024 8:29 AM EDT) Pathologist [facility] Iron 39 27 - 139 ug/dL [facility] TIBC 310 250 - 450 ug/dL [facility] UIBC 271 118 - 369 ug/dL [facility] Iron Saturation (TSat) 13(L) 15 - 55 % [facility] Blood (Blood, Venous) 02/22/2024 8:29 AM EDT 02/22/2024 Barry Reyes MD LAB BLOOD ORDERABLES Final Re sult [facility] [address] [place] [address] * (ABNORMAL) CBC and Differential (02/22/2024 8:29 AM EDT) Pathologist [facility] WBC 5.9 3.4 - 10.8 x10E3/uL [facility] RBC 5.33(H) 3.77 - 5.28 x10E6/uL [facility] Hemoglobin 10.3(L) 11.1 - 15.9 g/dL [facility] Hematocrit 35.1 34.0 - 46.6 % [facility] MCV 66(L) 79 - 97 fL [facility] MCH 19.3(L) 26.6 - 33.0 pg [facility] MCHC 29.3(L) 31.5 - 35.7 g/dL [facility] RDW 19.3(H) 11.7 - 15.4 % [facility] Platelets 174 150 - 450 x10E3/uL [facility] Neutrophils Relative 71 Not Estab. % [facility] Lymphocytes Relative 21 Not Estab. % [facility] Monocytes 5 Not Estab. % [facility] Eosinophils Relative 1 Not Estab. % [facility] Basophils Relative 1 Not Estab. % [facility] Neutrophils Absolute 4.2 1.4 - 7.0 x10E3/uL [facility] Lymphocytes Absolute 1.3 0.7 - 3.1 x10E3/uL [facility] Monocytes Absolute 0.3 0.1 - 0.9 x10E3/uL [facility] Eosinophils Absolute 0.1 0.0 - 0.4 x10E3/uL [facility] Basophils Absolute 0.0 0.0 - 0.2 x10E3/uL [facility] Immature Granulocytes 1 Not Estab. % [facility] Immature Grans (Absolute) 0.0 0.0 - 0.1 x10E3/uL [facility] Blood (Blood, Venous) 02/22/2024 8:29 AM EDT 02/22/2024 us Barry Reyes MD LAB BLOOD ORDERABLES Final Re sult [facility] [address] [place] [address] documented in this encounter Visit Diagnoses Diagnosis Chronic kidney disease, stage 2 (mild) Anemia in chronic kidney disease Iron deficiency anemia, not otherwise specified documented in this encounter Care Teams Graduate Nurse Relationship Specialty Start Date End Date Sahra Sno MD [address] [place] [address] PCP - General Internal Medicine 10/28/22 documented as of this encounter
--- OUTSIDE RECORDS SUMMARY | 2024-07-24 09:36 | XMS_ITS | Encounter Summary ---
Author Organization [facility] [place], Address [address] [place] [address] Phone Care Team Providers Care Wardrobe Image Consultant Name Role Phone Sahra Son MD Primary Care Provider + Encounter Details Date Type Department Care Team (Late st Contact Info) Description 07/07/2024 Orders Only [facility] [place], [address] [place] [address] India Davalos [address] [place] [address] Anemia in chronic kidney disease; [...] (mild) documented in this encounter Care Teams Wardrobe Image Consultant Relationship Specialty Start Date End Date Sahra Son MD [address] [address] PCP - General Internal Medicine 10/28/22 documented as of this encounter
--- OUTSIDE RECORDS SUMMARY | 2024-07-24 09:36 | XMS_ITS | Encounter Summary ---
Author Organization [facility] [place], Address [address] [place] [address] Phone Care Team Providers Care Flower Cutter Name Role Phone Sahra Son MD Primary Care Provider + Encounter Details Date Type Department Care Team (Late st Contact Info) Description 06/22/2022 Documentation Only [facility] [place], [address] [place] [address] India Davalos [address] [place] [address] Social History Tobacco Use Types [...] on filedocumented in this encounter Care Teams Flower Cutter Relationship Specialty Start Date End Date Sahra Son MD [address] [address] PCP - General Internal Medicine 10/28/22 documented as of this encounter
--- OUTSIDE RECORDS SUMMARY | 2024-07-24 09:36 | XMS_ITS | Encounter Summary ---
Author Organization [facility] [place], Address [address] [place] [address] Phone Care Team Providers Care Outbound Telemarketer Name Role Phone Sahra Son MD Primary Care Provider + Encounter Details Date Type Department Care Team (Late st Contact Info) Description 08/11/2022 Documentation Only [facility] [place], [address] [place] [address] India Davalos [address] [place] [address] Social History Tobacco Use Types [...] on filedocumented in this encounter Care Teams Outbound Telemarketer Relationship Specialty Start Date End Date Sahra Son MD [address] [address] PCP - General Internal Medicine 10/28/22 documented as of this encounter
--- OUTSIDE RECORDS SUMMARY | 2024-07-24 09:36 | XMS_ITS | Encounter Summary ---
Author Organization [facility] [place], Address [address] [place] [address] Phone Care Team Providers Care Tailings Man Name Role Phone Sahra Son MD Primary Care Provider + Encounter Details Date Type Department Care Team (Late st Contact Info) Description 03/22/2024 Documentation Only [facility] [place], [address] [place] [address] India Davalos [address] [place] [address] Social History Tobacco Use Types [...] on filedocumented in this encounter Care Teams Tailings Man Relationship Specialty Start Date End Date Sahra Son MD [address] [address] PCP - General Internal Medicine 10/28/22 documented as of this encounter
--- OUTSIDE RECORDS SUMMARY | 2024-07-24 09:36 | XMS_ITS | Encounter Summary ---
Author Organization [facility] [place], Address [address] [place] [address] Phone Care Team Providers Care Engineer Booster And Exhauster Name Role Phone Sahra Son MD Primary Care Provider + Encounter Details Date Type Department Care Team (Late st Contact Info) Description 06/30/2020 Orders Only [facility] [place] [facility] [address] [place] [address] Carol Whelan [address] [place] [address] Iron deficiency anemia, not otherwise [...] (mild) documented in this encounter Care Teams Engineer Booster And Exhauster Relationship Specialty Start Date End Date Sahra Son MD [address] [address] PCP - General Internal Medicine 10/28/22 documented as of this encounter
--- OUTSIDE RECORDS SUMMARY | 2024-07-24 09:36 | XMS_ITS | Encounter Summary ---
Author Organization [facility] Address [address] [place] [address] Phone Care Team Providers Care Grinder Name Role Phone Sahra Son MD Primary Care Provider + Encounter Details Date Type Department Care Team (Late st Contact Info) Description 03/03/2024 Orders Only [facility] [place], [address] [place] [address] India Davalos [address] [place] [address] Chronic kidney disease, stage 2 [...] Glucose 152(H) 70 - 99 mg/dL [facility] BUN 16 8 - 27 mg/dL [facility] Creatinine 0.98 0.57 - 1.00 mg/dL [facility] eGFR CKD-EPI CR 2020 64 >59 mL/min/1.7 3 [facility] BUN/Creatinine Ratio 16 12 - 28 [facility] Sodium 137 134 - 144 mmol/L [facility] Potassium 4.8 3.5 - 5.2 mmol/L [facility] Chloride 101 96 - 106 mmol/L [facility] Bicarbonate (CO2) 22 20 - 29 mmol/L [facility] Calcium 8.8 8.7 - 10.3 mg/dL [facility] Albumin 4.0 3.9 - 4.9 g/dL [facility] Phosphorus 4.0 3.0 - 4.3 mg/dL [facility] Blood (Blood, Venous) 03/24/2024 10:37 AM EST 03/24/2024 us Barry Reyes MD LAB BLOOD ORDERABLES Final Re sult [facility] [address] [place] [address] * Ferritin (03/24/2024 10:37 AM EST) Ferritin 37 15 - 150 ng/mL [facility] Blood (Blood, Venous) 03/24/2024 10:37 AM EST 03/24/2024 Barry Reyes MD LAB BLOOD ORDERABLES Final Re sult Performing Organization Address [facility]/ZIP Co de Phone Number [facility] [address] [place] [address] * Iron Panel (Fe, TIBC, TSAT) (03/24/2024 10:37 AM EST) Pathologist [facility] TIBC 293 250 - 450 ug/dL [facility] UIBC 247 118 - 369 ug/dL [facility] Iron 46 27 - 139 ug/dL [facility] [place] Saturation (TSat) 16 15 - 55 % [facility] Blood (Blood, Venous) 03/24/2024 10:37 AM EST 03/24/2024 us Barry Reyes MD LAB BLOOD ORDERABLES Final Re sult [facility] [address] [place] [address] * (ABNORMAL) CBC and Differential (03/24/2024 10:37 AM EST) WBC 6.0 3.4 - 10.8 x10E3/uL [facility] RBC 5.21 3.77 - 5.28 x10E6/uL [facility] Hemoglobin 10.0(L) 11.1 - 15.9 g/dL [facility] Hematocrit 35.3 34.0 - 46.6 % [facility] MCV 68(L) 79 - 97 fL [facility] MCH 19.2(L) 26.6 - 33.0 pg [facility] MCHC 28.3(L) 31.5 - 35.7 g/dL [facility] RDW 19.4(H) 11.7 - 15.4 % [facility] Platelets 186 150 - 450 x10E3/uL [facility] Neutrophils Relative 65 Not Estab. % [facility] Lymphocytes Relative 26 Not Estab. % [facility] Monocytes 6 Not Estab. % [facility] Eosinophils Relative 2 Not Estab. % [facility] Basophils Relative 1 Not Estab. % [facility] Neutrophils Absolute 3.9 1.4 - 7.0 x10E3/uL [facility] Lymphocytes Absolute 1.5 0.7 - 3.1 x10E3/uL [facility] Monocytes Absolute 0.3 0.1 - 0.9 x10E3/uL [facility] Eosinophils Absolute 0.1 0.0 - 0.4 x10E3/uL [facility] Basophils Absolute 0.0 0.0 - 0.2 x10E3/uL [facility] Immature Granulocytes 0 Not Estab. % [facility] Immature Grans (Absolute) 0.0 0.0 - 0.1 x10E3/uL [facility] Blood (Blood, Venous) 03/24/2024 10:37 AM EST 03/24/2024 us Barry Reyes MD LAB BLOOD ORDERABLES Final Re sult [facility] [address] [place] [address] documented in this encounter Visit Diagnoses Diagnosis Chronic kidney disease, stage 2 (mild) Anemia in chronic kidney disease Iron deficiency anemia, not otherwise specified documented in this encounter Care Teams Grinder Relationship Specialty Start Date End Date Sahra Son MD [address] [place] [address] PCP - General Internal Medicine 10/28/22 documented as of this encounter
--- OUTSIDE RECORDS SUMMARY | 2024-07-24 09:36 | XMS_ITS | Encounter Summary ---
Author Organization [facility] [place], Address [address] [place] [address] Phone Care Team Providers Care Trim Master Operator Name Role Phone Sahra Son MD Primary Care Provider + Encounter Details Date Type Department Care Team (Late st Contact Info) Description 03/23/2024 Documentation Only [facility] [place], [address] [place] [address] India Davalos [address] [place] [address] Social History Tobacco Use Types [...] on filedocumented in this encounter Care Teams Trim Master Operator Relationship Specialty Start Date End Date Sahra Son MD [address] [address] PCP - General Internal Medicine 10/28/22 documented as of this encounter
--- OUTSIDE RECORDS SUMMARY | 2024-07-24 09:36 | XMS_ITS | Encounter Summary ---
Author Organization [facility] [place], Address [address] [place] [address] Phone Care Team Providers Care Civil Drafting Technician Name Role Phone Sahra Son MD Primary Care Provider + Encounter Details Date Type Department Care Team (Late st Contact Info) Description 12/31/2023 Documentation Only [facility] [place], [address] [place] [address] India Davalos [address] [place] [address] Social History Tobacco Use Types [...] filedocumented in this encounter Care Teams Civil Drafting Technician Relationship Specialty Start Date End Date Sahra Son MD [address] [address] PCP - General Internal Medicine 10/28/22 documented as of this encounter
--- OUTSIDE RECORDS SUMMARY | 2024-07-24 09:36 | XMS_ITS | Encounter Summary ---
Author Organization [facility] [place], Address [address] [place] [address] Phone Care Team Providers Care Fbi Field Agent Name Role Phone Sahra Son MD Primary Care Provider + Encounter Details Date Type Department Care Team (Late st Contact Info) Description 09/18/2022 Documentation Only [facility] [place], [address] [place] [address] India Davalos [address] [place] [address] Social History Tobacco Use Types [...] on filedocumented in this encounter Care Teams Fbi Field Agent Relationship Specialty Start Date End Date Sahra Son MD [address] [address] PCP - General Internal Medicine 10/28/22 documented as of this encounter
--- OUTSIDE RECORDS SUMMARY | 2024-07-24 09:36 | XMS_ITS | Encounter Summary ---
Author Organization [facility] Address [address] [place] [address] Care Team Providers Care Grizzly Worker Name Role Phone Vinnie Santizo Primary Care Provider Sahra Keith MD Primary Care Provider Marko Fernandez MD Unavailable [phone] Encounter Details Date Type Department Care Team Description 08/27/2022 [facility] [address] [place] [id number] [place] [address] Social History Tobacco Use Types Packs/Day Years [...] Date/Time Associated Diagnosis Comments OUTSIDE LAB Routine 08/27/2022 documented in this encounter Results * OUTSIDE LAB (08/27/2022) Provider Default LAB documented in this encounter Visit Diagnoses Not on filedocumented in this encounter Care Teams Grizzly Worker Relationship Specialty Start Date End Date Vinnie Santizo PCP - General Internal Medicine 03/30/17 08/30/22 Sahra Son MD PCP - General Internal Medicine 08/31/22 Marko Spaulding MD Specialist Cardiology 09/23/22 documented as of this encounter
--- OUTSIDE RECORDS SUMMARY | 2024-07-24 09:36 | XMS_ITS | Encounter Summary ---
Author Organization [facility] [place], Address [address] [place] [address] Phone Care Team Providers Care Mba Intern Name Role Phone Sahra Son MD Primary Care Provider + Encounter Details Date Type Department Care Team (Late st Contact Info) Description 08/11/2022 Documentation Only [facility] [place], [address] [place] [address] India Davalos [address] [place] [address] Social History Tobacco Use Types [...] on filedocumented in this encounter Care Teams Mba Intern Relationship Specialty Start Date End Date Sahra Son MD [address] [address] PCP - General Internal Medicine 10/28/22 documented as of this encounter
--- OUTSIDE RECORDS SUMMARY | 2024-07-24 09:36 | XMS_ITS | Encounter Summary ---
Author Organization [facility] [place], Address [address] [place] [address] Phone Care Team Providers Care Clam Shucker Name Role Phone Sahra Son MD Primary Care Provider + Encounter Details Date Type Department Care Team (Late st Contact Info) Description 06/16/2022 Documentation Only [facility] [place], [address] [place] [address] India Davalos [address] [place] [address] Social History Tobacco Use Types [...] on filedocumented in this encounter Care Teams Clam Shucker Relationship Specialty Start Date End Date Sahra Son MD [address] [address] PCP - General Internal Medicine 10/28/22 documented as of this encounter
--- OUTSIDE RECORDS SUMMARY | 2024-07-24 09:36 | XMS_ITS | Encounter Summary ---
Author Organization [facility] [place], Address [address] [place] [address] Phone Care Team Providers Care Nonprofit Manager Name Role Phone Sahra Son MD Primary Care Provider + Encounter Details Date Type Department Care Team (Late st Contact Info) Description 09/28/2022 Documentation Only [facility] [place], [address] [place] [address] India Davalos [address] [place] [address] Social History Tobacco Use Types [...] on filedocumented in this encounter Care Teams Nonprofit Manager Relationship Specialty Start Date End Date Sahra Son MD [address] [address] PCP - General Internal Medicine 10/28/22 documented as of this encounter
--- OUTSIDE RECORDS SUMMARY | 2024-07-24 09:36 | XMS_ITS | Encounter Summary ---
Author Organization [facility] [place], Address [address] [place] [address] Phone Care Team Providers Care Historical Site Guide Name Role Phone Sahra Son MD Primary Care Provider + Encounter Details Date Type Department Care Team (Late st Contact Info) Description 09/28/2022 Documentation Only [facility] [place], [address] [place] [address] India Davalos [address] [place] [address] Social History Tobacco Use Types [...] filedocumented in this encounter Care Teams Historical Site Guide Relationship Specialty Start Date End Date Sahra Son MD [address] [address] PCP - General Internal Medicine 10/28/22 documented as of this encounter
--- OUTSIDE RECORDS SUMMARY | 2024-07-24 09:36 | XMS_ITS | Encounter Summary ---
Author Organization [facility] [place], Address [address] [place] [address] Phone Care Team Providers Care Dining Room Helper Name Role Phone Sahra Son MD Primary Care Provider + Encounter Details Date Type Department Care Team (Late st Contact Info) Description 06/17/2022 Documentation Only [facility] [place], [address] [address] India Davalos [address] [place] [address] Social History Tobacco Use Types [...] on filedocumented in this encounter Care Teams Dining Room Helper Relationship Specialty Start Date End Date Sahra Son MD [address] [address] PCP - General Internal Medicine 10/28/22 documented as of this encounter
--- OUTSIDE RECORDS SUMMARY | 2024-07-24 09:36 | XMS_ITS | Encounter Summary ---
Author Organization [facility] [place], Address [address] [place] [address] Phone Care Team Providers Care Stock Grader Name Role Phone Sahra Son MD Primary Care Provider + Encounter Details Date Type Department Care Team (Late st Contact Info) Description 09/28/2022 Documentation Only [facility] [place], [address] [place] [address] India Davalos [address] [place] [address] Social History Tobacco Use Types [...] filedocumented in this encounter Care Teams Stock Grader Relationship Specialty Start Date End Date Sahra Son MD [address] [address] PCP - General Internal Medicine 10/28/22 documented as of this encounter
--- OUTSIDE RECORDS SUMMARY | 2024-07-24 09:37 | XMS_ITS | Encounter Summary ---
Author Organization [facility] [place], Address [address] [place] [address] Phone Care Team Providers Care Fire Alarm Technician Name Role Phone Sahra Son MD Primary Care Provider + Encounter Details Date Type Department Care Team (Late st Contact Info) Description 08/22/2021 Documentation Only [facility] [place], [address] [place] [address] India Davalos [address] [place] [address] Social History Tobacco Use Types [...] filedocumented in this encounter Care Teams Fire Alarm Technician Relationship Specialty Start Date End Date Sahra Son MD [address] [address] PCP - General Internal Medicine 10/28/22 documented as of this encounter
--- OUTSIDE RECORDS SUMMARY | 2024-07-24 09:37 | XMS_ITS | Encounter Summary ---
Author Organization [facility] [place], Address [address] [place] [address] Phone Care Team Providers Care Medical Housekeeper Name Role Phone Sahra Son MD Primary Care Provider + Encounter Details Date Type Department Care Team (Late st Contact Info) Description 11/11/2023 Documentation Only [facility] [place], [address] [place] [address] India Davalos [address] [place] [address] Social History Tobacco Use Types [...] filedocumented in this encounter Care Teams Medical Housekeeper Relationship Specialty Start Date End Date Sahra Son MD [address] [address] PCP - General Internal Medicine 10/28/22 documented as of this encounter
--- OUTSIDE RECORDS SUMMARY | 2024-07-24 09:37 | XMS_ITS | Encounter Summary ---
Author Organization [facility] [place], Address [address] [place] [address] Phone Care Team Providers Care Director Cpg Name Role Phone Sahra Son MD Primary Care Provider + Encounter Details Date Type Department Care Team (Late st Contact Info) Description 11/19/2023 Documentation Only [facility] [place], [address] [place] [address] India Davalos [address] [place] [address] Social History Tobacco Use Types [...] filedocumented in this encounter Care Teams Director Cpg Relationship Specialty Start Date End Date Sahra Son MD [address] [address] PCP - General Internal Medicine 10/28/22 documented as of this encounter
--- OUTSIDE RECORDS SUMMARY | 2024-07-24 09:37 | XMS_ITS | Encounter Summary ---
Author Organization [facility] [place], Address [address] [place] [address] Phone Care Team Providers Care Promotions Firm Accounts Manager Name Role Phone Sahra Son MD Primary Care Provider + Encounter Details Date Type Department Care Team (Late st Contact Info) Description 11/11/2023 Documentation Only [facility] [place], [address] [place] [address] India Davalos [address] [place] [address] Social History Tobacco Use Types [...] on filedocumented in this encounter Care Teams Promotions Firm Accounts Manager Relationship Specialty Start Date End Date Sahra Son MD [address] [address] PCP - General Internal Medicine 10/28/22 documented as of this encounter
--- OUTSIDE RECORDS SUMMARY | 2024-07-24 09:37 | XMS_ITS | Encounter Summary ---
Author Organization [facility] [place], Address [address] [place] [address] Phone Care Team Providers Care Allied Health Teacher Name Role Phone Sahra Son MD Primary Care Provider + Encounter Details Date Type Department Care Team (Late st Contact Info) Description 11/30/2023 Documentation Only [facility] [place], [address] [place] [address] India Davalos [address] [place] [address] Social History Tobacco Use Types [...] on filedocumented in this encounter Care Teams Allied Health Teacher Relationship Specialty Start Date End Date Sahra Son MD [address] [address] PCP - General Internal Medicine 10/28/22 documented as of this encounter
--- OUTSIDE RECORDS SUMMARY | 2024-07-24 09:37 | XMS_ITS | Encounter Summary ---
Author Organization [facility] [place], Address [address] [place] [address] Phone Care Team Providers Care Tube Puller Name Role Phone Sahra Son MD Primary Care Provider + Encounter Details Date Type Department Care Team (Late st Contact Info) Description 11/21/2021 Documentation Only [facility] [place], [address] [place] [address] India Davalos [address] [place] [address] Social History Tobacco Use Types [...] on filedocumented in this encounter Care Teams Tube Puller Relationship Specialty Start Date End Date Sahra Son MD [address] [address] PCP - General Internal Medicine 10/28/22 documented as of this encounter
--- OUTSIDE RECORDS SUMMARY | 2024-07-24 09:37 | XMS_ITS | Encounter Summary ---
Author Organization [facility] Address [address] [place] [address] Phone Care Team Providers Care Spray Cementer Name Role Phone Sahra Son MD Primary Care Provider + Encounter Details Date Type Department Care Team (Late st Contact Info) Description 05/17/2023 Orders Only [facility] [place], [address] [place] [phone] Arlene Alston PA Chronic kidney disease, stage [...] (Fe, TIBC, TSAT) (06/08/2023 8:36 AM EST) [facility] Iron 49 (30-160) MCG/DL [facility] UIBC 246 (110-370) MCG/DL [facility] TIBC 295 (140-530) MCG/DL [facility] Iron Saturation (TSat) 17(L) (20-55) % [facility] Comment: Testing performed or reported by [facility], a Service of [facility], [address] [place] [address] Luis A Bailey MD, Kapok Machine Operator TASNEEM# [id number] Blood (Blood, Venous) 06/08/2023 8:36 AM EST 06/08/2023 8:39 AM EST Arlene CARTER LAB BLOOD ORDERABLES Final Re sult Performing Organization Address [facility]/ZIP Co de Phone Number [facility] * Vitamin D 25 hydroxy (06/08/2023 8:36 AM EST) Vitamin D, 25-Hydroxy 24.8 (20-50) NG/ML [facility] Comment: Testing performed or reported by [facility], a Service of [facility], [address] [place] [id number] Luis A Bailey MD, Kapok Machine Operator CLIA# [id number] Blood (Blood, Venous) 06/08/2023 8:36 AM EST 06/08/2023 8:39 AM EST Arlene CARTER LAB BLOOD ORDERABLES Final Re sult Performing Organization Address [facility] Co de Phone Number [facility] * (ABNORMAL) Renal function panel (06/08/2023 8:36 AM EST) Glucose 166(H) (70-99) MG/DL [facility] BUN 19 (8-23) MG/DL [facility] Creatinine 1.0 (0.5-1.0) MG/DL [facility] Sodium 138 (133-145) MMOL/L [facility] Potassium 4.9 (3.6-5.2) MMOL/L [facility] Chloride 101 (98-107) MMOL/L [facility] Bicarbonate (CO2) 27 (22-29) MMOL/L [facility] Anion Gap 10 (4-17) [facility] Albumin 4.2 (3.4-4.8) GM/DL [facility] Calcium 9.1 (8.6-10.5) MG/DL [facility] Phosphorus, Serum 3.4 (2.5-4.5) MG/DL [facility] Est GFR Non 66 ML/MIN/1.7 3 M2 [facility] Comment: Creatinine based estimated glomerular filtration (eGFR) in adults is calculated using the National Kidney Foundation recommended 2020 CKD-EPI equation. Estimates GFR from serum creatinine, age and sex. Testing performed or reported by [facility], a Service of [facility], [address] [place] [id number] Luis A Bailey MD, Kapok Machine Operator CLIA# [id number] Blood (Blood, Venous) 06/08/2023 8:36 AM EST 06/08/2023 8:39 AM EST Arlene Alston [place] LAB BLOOD ORDERABLES Final Re sult Performing Organization Address [facility] Co de Phone Number [facility] * Magnesium (06/08/2023 8:36 AM EST) Magnesium 2.1 (1.6-2.3) mg/dL [facility] Comment: Testing performed or reported by [facility], a Service of [facility], [address] [place] [id number] Luis A Bailey MD, Kapok Machine Operator [facility]# [id number] Blood (Blood, Venous) 06/08/2023 8:36 AM EST 06/08/2023 8:39 AM EST Arlene Alston [place] LAB BLOOD ORDERABLES Final Re sult Performing Organization Address [facility] de Phone Number [facility] * (ABNORMAL) Hemoglobin A1c (06/08/2023 8:36 AM EST) Hemoglobin A1C 7.2(H) (4.0-5.6) % [facility] Comment: MONITORING: In known diabetic patients, hemoglobin A1c targets should be discussed with health care provider. DIAGNOSTIC USE: ??The [place] Diabetes Association (ADA) and the World Health [...] Supplement 1 Testing performed or reported by [facility], a Service of [facility], [address] [place] [id number] Luis A Bailey MD, Kapok Machine Operator [facility]# [id number] Blood (Blood, Venous) 06/08/2023 8:36 AM EST 06/08/2023 8:38 AM EST us Arlene CARTER LAB BLOOD ORDERABLES Final Re sult [facility] * (ABNORMAL) CBC and differential (06/08/2023 8:36 AM EST) White Blood Cells 5.2 (4.0-11.0 ) K/MM3 [facility] RBC 5.08 (4.20-5.4 0) M/MM3 [facility] Hgb 10.1(L) (11.7-15. 5) GM/DL [facility] Hematocrit 32.9(L) (35.7-45. 8) % [facility] MCV 64.8(L) (80.0-100 .0) FL [facility] MCH 19.9(L) (27.0-34. 0) PG [facility] MCHC 30.7(L) (33.0-37. 0) g/dL [facility] Platelets 191 (150-460) K/MM3 [facility] RDW-SD 40.3 (<47.0) FL [facility] MPV NOT MEASURED (9.4-12.4 ) [place] [facility] nRBC Count 0.0 #/100 WBC'S [facility] NRBC Absolute 0.0 K/MM3 [facility] Neutrophils Abs [...] % [facility] Basophils Relative 0.8 (0-2) % [facility] Immature Granulocytes 0.4 % [facility] Comment: Testing performed or reported by [facility], a Service of [facility], [address] [place] [address] Luis A Bailey MD, Kapok Machine Operator [facility]# [id number] Blood (Blood, Venous) 06/08/2023 8:36 AM EST 06/08/2023 8:38 AM EST us Arlene CARTER LAB BLOOD ORDERABLES Final Re sult [facility] documented in this encounter Visit Diagnoses Diagnosis Chronic kidney disease, stage 2 (mild) Essential (primary) hypertension Anemia in chronic kidney disease Antiphospholipid syndrome (HCC) Type 2 diabetes mellitus, not otherwise specified (HCC) Bleeding hemorrhoids documented in this encounter Care Teams Spray Cementer Relationship Specialty Start Date End Date Sahra Son MD [address] [place] [address] PCP - General Internal Medicine 10/28/22 documented as of this encounter
--- OUTSIDE RECORDS SUMMARY | 2024-07-24 09:37 | XMS_ITS | Encounter Summary ---
Author Organization [facility] [place], Address [address] [place] [address] Phone Care Team Providers Care Lens Cleaner Name Role Phone Sahra Son MD Primary Care Provider + Encounter Details Date Type Department Care Team (Late st Contact Info) Description 01/06/2022 Documentation Only [facility] [place], [address] [place] [address] Juan Jose Li MD [address] [address] [place] [address] Social History Tobacco Use Types [...] on filedocumented in this encounter Care Teams Lens Cleaner Relationship Specialty Start Date End Date Sahra Son MD [address] [address] PCP - General Internal Medicine 10/28/22 documented as of this encounter
--- OUTSIDE RECORDS SUMMARY | 2024-07-24 09:37 | XMS_ITS | Encounter Summary ---
Author Organization [facility] [place], Address [address] [place] [address] Phone Care Team Providers Care Mesh Worker Name Role Phone Sahra Son MD Primary Care Provider + Encounter Details Date Type Department Care Team (Late st Contact Info) Description 11/11/2023 Documentation Only [facility] [place], [address] [place] [address] India Davalos [address] [place] [address] Social History Tobacco Use Types [...] on filedocumented in this encounter Care Teams Mesh Worker Relationship Specialty Start Date End Date Sahra Son MD [address] [address] PCP - General Internal Medicine 10/28/22 documented as of this encounter
--- OUTSIDE RECORDS SUMMARY | 2024-07-24 09:37 | XMS_ITS | Encounter Summary ---
Author Organization [facility] [place], Address [address] [place] [address] Phone Care Team Providers Care Research Nurse Practitioner Name Role Phone Sahra Son MD Primary Care Provider + Encounter Details Date Type Department Care Team (Late st Contact Info) Description 06/09/2024 Orders Only [facility] [place], [address] [place] [address] India Davalos [address] [place] [address] Anemia in chronic kidney disease; [...] (mild) documented in this encounter Care Teams Research Nurse Practitioner Relationship Specialty Start Date End Date Sahra Son MD [address] [address] PCP - General Internal Medicine 10/28/22 documented as of this encounter
--- OUTSIDE RECORDS SUMMARY | 2024-07-24 09:37 | XMS_ITS | Encounter Summary ---
Author Organization [facility] [place], Address [address] [place] [address] Phone Care Team Providers Care Patternmaker Wood Name Role Phone Sahra Son MD Primary Care Provider + Encounter Details Date Type Department Care Team (Late st Contact Info) Description 12/23/2021 Documentation Only [facility] [place], [address] [place] [address] Juan Jose Li MD [address] [facility] [address] [place] [address] Social History Tobacco Use Types [...] filedocumented in this encounter Care Teams Patternmaker Wood Relationship Specialty Start Date End Date Sahra Son MD [address] [address] PCP - General Internal Medicine 10/28/22 documented as of this encounter
--- OUTSIDE RECORDS SUMMARY | 2024-07-24 09:37 | XMS_ITS | Encounter Summary ---
Author Organization [facility] Address [address] [place] [address] Phone Care Team Providers Care Digital Associate Name Role Phone Sahra Son MD Primary Care Provider + Encounter Details Date Type Department Care Team (Late st Contact Info) Description 01/31/2024 Orders Only [facility] [place], [address] [place] [address] Arlene Alston PA Chronic kidney [...] (HCC) documented in this encounter Care Teams Digital Associate Relationship Specialty Start Date End Date Sahra Son MD [address] [facility] [address] [place] [address] PCP - General Internal Medicine 10/28/22 documented as of this encounter
--- OUTSIDE RECORDS SUMMARY | 2024-07-24 09:37 | XMS_ITS | Encounter Summary ---
Author Organization [facility] [place], Address [address] [place] [address] Phone Care Team Providers Care It Infrastructure Engineer Name Role Phone Sahra Son MD Primary Care Provider + Encounter Details Date Type Department Care Team (Late st Contact Info) Description 11/11/2023 Documentation Only [facility] [place], [address] [place] [address] India Davalos [address] [place] [address] Social History Tobacco Use Types [...] on filedocumented in this encounter Care Teams It Infrastructure Engineer Relationship Specialty Start Date End Date Sahra Son MD [address] [address] PCP - General Internal Medicine 10/28/22 documented as of this encounter
--- OUTSIDE RECORDS SUMMARY | 2024-07-24 09:37 | XMS_ITS | Encounter Summary ---
Author Organization [facility] [place], Address [address] [place] [address] Phone Care Team Providers Care Director Of Officiating Name Role Phone Sahra Son MD Primary Care Provider + Encounter Details Date Type Department Care Team ([facility] st Contact Info) Description 04/08/2022 Documentation Only [facility] [place], [address] [place] [address] India Davalos [address] [place] [address] Social History Tobacco Use Types [...] filedocumented in this encounter Care Teams Director Of Officiating Relationship Specialty Start Date End Date Sahra Son MD [address] [address] PCP - General Internal Medicine 10/28/22 documented as of this encounter
--- OUTSIDE RECORDS SUMMARY | 2024-07-24 09:37 | XMS_ITS | Encounter Summary ---
Author Organization [facility] [place], Address [address] [place] [address] Phone Care Team Providers Care Sales Office Administrator Name Role Phone Sahra Son MD Primary Care Provider + Encounter Details Date Type Department Care Team (Late st Contact Info) Description 03/11/2023 Documentation Only [facility] [place], [address] [place] [address] India Davalos [address] [place] [address] Social History Tobacco Use Types [...] filedocumented in this encounter Care Teams Sales Office Administrator Relationship Specialty Start Date End Date Sahra Son MD [address] [address] PCP - General Internal Medicine 10/28/22 documented as of this encounter
--- OUTSIDE RECORDS SUMMARY | 2024-07-24 09:37 | XMS_ITS | Encounter Summary ---
Author Organization [facility] [place], Address [address] [place] [address] Phone Care Team Providers Care Railcar Mechanic Name Role Phone Sahra Son MD Primary Care Provider + Encounter Details Date Type Department Care Team ([facility] st Contact Info) Description 04/14/2022 Documentation Only [facility] [place], [address] [place] [address] India Davalos [address] [place] [address] Social History Tobacco Use Types [...] on filedocumented in this encounter Care Teams Railcar Mechanic Relationship Specialty Start Date End Date Sahra Son MD [address] [address] PCP - General Internal Medicine 10/28/22 documented as of this encounter
--- OUTSIDE RECORDS SUMMARY | 2024-07-24 09:37 | XMS_ITS | Encounter Summary ---
Author Organization [facility] [place], Address [address] [place] [address] Phone Care Team Providers Care Electronics Technology Department Chair Name Role Phone Sahra Son MD Primary Care Provider + Encounter Details Date Type Department Care Team (Late st Contact Info) Description 11/05/2023 Documentation Only [facility] [place], [address] [place] [address] India Davalos [address] [place] [address] Social History Tobacco Use Types [...] on filedocumented in this encounter Care Teams Electronics Technology Department Chair Relationship Specialty Start Date End Date Sahra Son MD [address] [address] PCP - General Internal Medicine 10/28/22 documented as of this encounter
--- OUTSIDE RECORDS SUMMARY | 2024-07-24 09:37 | XMS_ITS | Encounter Summary ---
Author Organization [facility] [place], Address [address] [place] [address] Phone Care Team Providers Care Glued Wood Tester Name Role Phone Sahra Son MD Primary Care Provider + Encounter Details Date Type Department Care Team (Late st Contact Info) Description 11/17/2023 Documentation Only [facility] [place], [address] [place] [address] India Davaols [address] [place] [address] Social History Tobacco Use Types [...] on filedocumented in this encounter Care Teams Glued Wood Tester Relationship Specialty Start Date End Date Sahra Son MD [address] [address] PCP - General Internal Medicine 10/28/22 documented as of this encounter
--- OUTSIDE RECORDS SUMMARY | 2024-07-24 09:37 | XMS_ITS | Encounter Summary ---
Author Organization [facility] [place], Address [address] [place] [address] Phone Care Team Providers Care Medical Charge Entry Specialist Name Role Phone Sahra Son MD Primary Care Provider + Encounter Details Date Type Department Care Team (Late st Contact Info) Description 03/11/2023 Documentation Only [facility] [place], [address] [place] [address] India Davalos [address] [place] [address] Social History Tobacco Use Types [...] filedocumented in this encounter Care Teams Medical Charge Entry Specialist Relationship Specialty Start Date End Date Sahra Son MD [address] [address] PCP - General Internal Medicine 10/28/22 documented as of this encounter
--- OUTSIDE RECORDS SUMMARY | 2024-07-24 09:37 | XMS_ITS | Encounter Summary ---
Author Organization [facility] [place], Address [address] [place] [address] Phone Care Team Providers Care Health Policy Nurse Name Role Phone Sahra Son MD Primary Care Provider + Encounter Details Date Type Department Care Team (Late st Contact Info) Description 11/11/2023 Documentation Only [facility] [place], [address] [place] [address] India Davalos [address] [place] [address] Social History Tobacco Use Types [...] on filedocumented in this encounter Care Teams Health Policy Nurse Relationship Specialty Start Date End Date Sahra Son MD [address] [address] PCP - General Internal Medicine 10/28/22 documented as of this encounter
--- OUTSIDE RECORDS SUMMARY | 2024-07-24 09:37 | XMS_ITS | Encounter Summary ---
Author Organization [facility] [place], Address [address] [place] [address] Phone Care Team Providers Care Inner Diameter Grinder Tool Name Role Phone Sahra Son MD Primary Care Provider + Encounter Details Date Type Department Care Team (Late st Contact Info) Description 11/11/2023 Documentation Only [facility] [place], [address] [place] [address] India Davalos [address] [place], [...] on filedocumented in this encounter Care Teams Inner Diameter Grinder Tool Relationship Specialty Start Date End Date Sahra Son MD [address] [address] PCP - General Internal Medicine 10/28/22 documented as of this encounter
--- OUTSIDE RECORDS SUMMARY | 2024-07-24 09:38 | XMS_ITS | Encounter Summary ---
Author Organization [facility] [place], Address [address] [place] [address] Phone Care Team Providers Care Drafting Detailer Name Role Phone Sahra Son MD Primary Care Provider + Encounter Details Date Type Department Care Team (Late st Contact Info) Description 10/26/2022 Documentation Only [facility] [place], [address] [place] [address] India Davalos [address] [place] [address] Social History Tobacco Use Types [...] on filedocumented in this encounter Care Teams Drafting Detailer Relationship Specialty Start Date End Date Sahra Son MD [address] [address] PCP - General Internal Medicine 10/28/22 documented as of this encounter
--- OUTSIDE RECORDS SUMMARY | 2024-07-24 09:38 | XMS_ITS | Encounter Summary ---
Author Organization [facility] [place], Address [address] [place] [address] Phone Care Team Providers Care Emery Grinder Name Role Phone Sahra Son MD Primary Care Provider + Encounter Details Date Type Department Care Team (Late st Contact Info) Description 07/16/2023 Documentation Only [facility] [place], [address] [place] [address] India Davalos [address] [place] [address] Social History Tobacco Use Types [...] on filedocumented in this encounter Care Teams Emery Grinder Relationship Specialty Start Date End Date Sahra Son MD [address] [address] PCP - General Internal Medicine 10/28/22 documented as of this encounter
--- OUTSIDE RECORDS SUMMARY | 2024-07-24 09:38 | XMS_ITS | Clinical Summary ---
Author Organization [facility], Address [address] [place] [address] [place] [address] Phone Care Team Providers Care Summer Internship Name Role Phone Sahra Son MD Primary Care Provider + Allergies Active Allergy Reactions Criticality Noted Date Comments Codeine 12/26/2012 Ferumoxytol Shortness of breath,Itching,Other (see comments) High 02/27/2022 Bones hurt Iodinated Contrast Media 07/06/2022 Penicillins 12/26/2012 Other Shellfish Allergy 12/26/2012 Tramadol 07/06/2022 Trazodone 03/08/2018 Iron Sucrose 02/29/2024 Coughing fit infusion stopped at [facility] Medications Cymbalta [address] capsule TK 2 CS PO QAM 12/28/19 20 Active LORazepam (ATIVAN) 1 MG tablet TK 1 T PO BID 12/24/19 20 Active meclizine (ANTIVERT) 25 MG tablet TK 1 T PO TID PRN 12/24/19 20 Active montelukast (SINGULAIR) 10 MG tablet TK 1 T PO QD IN THE DARCY 11/19/19 20 Active Creon 60875-20847 units capsule TK ONE C PO TID [...] Encounters Date Type Department Care Team Description 07/21/2024 Orders Only [facility] [address] [place] [address] [place], [place] Chronic kidney disease, stage 2 (mild); Anemia in chronic kidney disease; Iron deficiency anemia, not otherwise specified 07/07/2024 Orders Only [facility] [address] [place] [address] [place], [place] Anemia in chronic kidney disease; Other iron deficiency anemia; Chronic kidney disease, stage 2 (mild) 06/23/2024 Orders Only [facility] [address] [place] [address] [place] Chronic kidney disease, stage 2 (mild); Anemia in chronic kidney disease; Iron deficiency anemia, not otherwise specified 06/09/2024 Orders Only [facility] [address] [place] [address] [place], [place] Anemia in chronic kidney disease; Other iron deficiency anemia; Chronic kidney disease, stage 2 (mild) 06/05/2024 Telephone [facility] [address] [place] [address] Stephanie Azul, chemical lab supervisor reminder 05/26/2024 Orders Only [facility] [address] [place] [address] [place], [place] Chronic kidney disease, stage 2 (mild); Anemia in chronic kidney disease; Iron deficiency anemia, not otherwise specified 05/05/2024 Telephone [facility] [address] [place] [phone] [place] 05/05/2024 Orders Only [facility] [address] [place] [phone] Kaylyn Vargas Anemia in chronic kidney disease; Iron deficiency anemia, not otherwise specified; Chronic kidney disease, stage 2 (mild) 05/01/2024 Telephone [facility] [address] [place] [address] Olesya Han 05/01/2024 Telephone [facility] [address] [place] [phone] Olesya Han 04/28/2024 Orders Only [facility] [address] [place] [phone] [place] Davalos Chronic kidney disease, stage 2 [...] TIBC 262 250 - 450 ug/dL [facility] UIBC 205 118 - 369 ug/dL [facility] Iron 57 27 - 139 ug/dL [facility] Iron Saturation (TSat) 22 15 - 55 % [facility] Blood (Blood, Venous) 06/07/2024 11:53 AM EST 06/07/2024 us Barry Reyes MD LAB BLOOD ORDERABLES Final Re sult [facility] [address] [place] [address] * (ABNORMAL) CBC and Differential (06/07/2024 11:53 AM EST) Only the most recent of2 resultswithin the time period is included. WBC 5.5 3.4 - 10.8 x10E3/uL [facility] RBC 5.76(H) 3.77 - 5.28 x10E6/uL [facility] Hemoglobin 11.1 11.1 - 15.9 g/dL [facility] Hematocrit 38.4 34.0 - 46.6 % [facility] MCV 67(L) 79 - 97 fL [facility] MCH 19.3(L) 26.6 - 33.0 pg [facility] MCHC 28.9(L) 31.5 - 35.7 g/dL [facility] RDW 18.8(H) 11.7 - 15.4 % [facility] Platelets 162 150 - 450 x10E3/uL [facility] Neutrophils Relative 59 Not Estab. % [facility] Lymphocytes Relative 31 Not Estab. % [facility] Monocytes 6 Not Estab. % [facility] Eosinophils Relative 2 Not Estab. % [facility] Basophils Relative 1 Not Estab. % [facility] Neutrophils Absolute 3.3 1.4 - 7.0 x10E3/uL [facility] Lymphocytes Absolute 1.7 0.7 - 3.1 x10E3/uL [facility] Monocytes Absolute 0.3 0.1 - 0.9 x10E3/uL [facility] Eosinophils Absolute 0.1 0.0 - 0.4 x10E3/uL [facility] Basophils Absolute 0.0 0.0 - 0.2 x10E3/uL [facility] Immature Granulocytes 1 Not Estab. % [facility] Immature Grans (Absolute) 0.0 0.0 - 0.1 x10E3/uL [facility] Blood (Blood, Venous) 06/07/2024 11:53 AM EST 06/07/2024 Barry Reyes MD LAB BLOOD ORDERABLES Final Re sult [facility] [address] [place] [address] * Ferritin (06/07/2024 11:53 AM EST) Only the most recent of2 resultswithin the time period is included. Ferritin 102 15 - 150 ng/mL [facility] Blood (Blood, Venous) 06/07/2024 11:53 AM EST 06/07/2024 Barry Reyes MD LAB BLOOD ORDERABLES Final Re sult [facility] [address] [place] [address] * (ABNORMAL) Renal Function Panel (06/07/2024 11:53 AM EST) Only the most recent of2 resultswithin the time period is included. Glucose 168(H) 70 - 99 mg/dL [facility] BUN 17 8 - 27 mg/dL [facility] Creatinine 1.09(H) 0.57 - 1.00 mg/dL [facility] eGFR CKD-EPI CR 2020 57(L) >59 mL/min/1.7 3 [facility] BUN/Creatinine Ratio 16 12 - 28 [facility] Sodium 137 134 - 144 mmol/L [facility] Potassium 4.8 3.5 - 5.2 mmol/L [facility] Chloride 99 96 - 106 mmol/L [facility] Bicarbonate (CO2) 23 20 - 29 mmol/L [facility] Calcium 9.0 8.7 - 10.3 mg/dL [facility] Albumin 4.2 3.9 - 4.9 g/dL [facility] Phosphorus 4.4(H) 3.0 - 4.3 mg/dL [facility] Blood (Blood, Venous) 06/07/2024 11:53 AM EST 06/07/2024 us Barry Reyes MD LAB BLOOD ORDERABLES Final Re sult [facility] [address] [place] [address] * (ABNORMAL) Hemoglobin A1c (06/08/2023 8:36 AM EST) Hemoglobin A1C 7.2(H) (4.0-5.6) % [facility] Comment: MONITORING: In known diabetic patients, [...] Supplement 1 Testing performed or reported by [facility] [employer] [address] Luis A Bailey MD, Cash Poster [facility]# [id number] Blood (Blood, Venous) 06/08/2023 8:36 AM EST 06/08/2023 8:38 AM EST us Arlene CARTER LAB BLOOD ORDERABLES Final Re sult [facility] from Last 3 Months or Most Recently Relevant to Health Maintenance Insurance [facility] ONE [employer] DUAL SNP ([id number]) Care Teams Summer Internship Relationship Specialty Start Date End Date Sahra Son MD [address] [address] PCP - General Internal Medicine 10/28/22
--- OUTSIDE RECORDS SUMMARY | 2024-07-24 09:38 | XMS_ITS | Encounter Summary ---
Author Organization [facility] [place], Address [address] [place] [address] Phone Care Team Providers Care Mortar Man Name Role Phone Sahra Son MD Primary Care Provider + Encounter Details Date Type Department Care Team (Late st Contact Info) Description 01/29/2023 Documentation Only [facility] [place], [address] [place] [address] [place] Davalos [address] [place] [address] Social History Tobacco Use Types [...] on filedocumented in this encounter Care Teams Mortar Man Relationship Specialty Start Date End Date Sahra Son MD [address] [address] PCP - General Internal Medicine 10/28/22 documented as of this encounter
--- OUTSIDE RECORDS SUMMARY | 2024-07-24 09:38 | XMS_ITS | Encounter Summary ---
Author Organization [facility] [place], Address [address] [place] [address] Phone Care Team Providers Care Lead Performance Support Analyst Name Role Phone Sahra Son MD Primary Care Provider + Encounter Details Date Type Department Care Team (Late st Contact Info) Description 10/07/2021 Documentation Only [facility] [place], [address] [place] [address] India Davalos [address] [place], [...] filedocumented in this encounter Care Teams Lead Performance Support Analyst Relationship Specialty Start Date End Date Sahra Son MD [address] [address] PCP - General Internal Medicine 10/28/22 documented as of this encounter
--- OUTSIDE RECORDS SUMMARY | 2024-07-24 09:38 | XMS_ITS | Encounter Summary ---
Author Organization [facility] Address [address] [place] [address] Phone Care Team Providers Care Bow Making Machine Operator Name Role Phone Sahra Son MD Primary Care Provider + Encounter Details Date Type Department Care Team (Late st Contact Info) Description 05/26/2024 Orders Only [facility] [place], [address] [place] [address] [place] Davalos [address] [place] [address] Chronic kidney disease, stage 2 [...] Glucose 168(H) 70 - 99 mg/dL [facility] BUN 17 8 - 27 mg/dL [facility] Creatinine 1.09(H) 0.57 - 1.00 mg/dL [facility] eGFR CKD-EPI CR 2020 57(L) >59 mL/min/1.7 3 [facility] BUN/Creatinine Ratio 16 12 - 28 [facility] Sodium 137 134 - 144 mmol/L [facility] Potassium 4.8 3.5 - 5.2 mmol/L [facility] Chloride 99 96 - 106 mmol/L [facility] Bicarbonate (CO2) 23 20 - 29 mmol/L [facility] Calcium 9.0 8.7 - 10.3 mg/dL [facility] Albumin 4.2 3.9 - 4.9 g/dL [facility] Phosphorus 4.4(H) 3.0 - 4.3 mg/dL [facility] Blood (Blood, Venous) 06/07/2024 11:53 AM EST 06/07/2024 us Barry Reyes MD LAB BLOOD ORDERABLES Final Re sult [facility] [address] [place] [address] * Ferritin (06/07/2024 11:53 AM EST) Pathologist [facility] Ferritin 102 15 - 150 ng/mL [facility] Blood (Blood, Venous) 06/07/2024 11:53 AM EST 06/07/2024 Barry Reyes MD LAB BLOOD ORDERABLES Final Re sult Performing Organization Address City/[facility] Co de Phone Number [facility] [address] [place] [address] * Iron Panel (Fe, TIBC, TSAT) (06/07/2024 11:53 AM EST) Pathologist [facility] TIBC 262 250 - 450 ug/dL [facility] UIBC 205 118 - 369 ug/dL [facility] Iron 57 27 - 139 ug/dL [facility] Iron Saturation (TSat) 22 15 - 55 % [facility] Blood (Blood, Venous) 06/07/2024 11:53 AM EST 06/07/2024 Barry Reyes MD LAB BLOOD ORDERABLES Final Re sult [facility] [address] [place] [address] * (ABNORMAL) CBC and Differential (06/07/2024 11:53 AM EST) Pathologist [facility] WBC 5.5 3.4 - 10.8 x10E3/uL [facility] RBC 5.76(H) 3.77 - 5.28 x10E6/uL [facility] Hemoglobin 11.1 11.1 - 15.9 g/dL [facility] Hematocrit 38.4 34.0 - 46.6 % [facility] MCV 67(L) 79 - 97 fL [facility] MCH 19.3(L) 26.6 - 33.0 pg [facility] MCHC 28.9(L) 31.5 - 35.7 g/dL [facility] RDW 18.8(H) 11.7 - 15.4 % [facility] Platelets 162 150 - 450 x10E3/uL [facility] Neutrophils Relative 59 Not Estab. % [facility] Lymphocytes Relative 31 Not Estab. % [facility] Monocytes 6 Not Estab. % [facility] Eosinophils Relative 2 Not Estab. % [facility] Basophils Relative 1 Not Estab. % [facility] Neutrophils Absolute 3.3 1.4 - 7.0 x10E3/uL [facility] Lymphocytes Absolute 1.7 0.7 - 3.1 x10E3/uL [facility] Monocytes Absolute 0.3 0.1 - 0.9 x10E3/uL [facility] Eosinophils Absolute 0.1 0.0 - 0.4 x10E3/uL [facility] Basophils Absolute 0.0 0.0 - 0.2 x10E3/uL [facility] Immature Granulocytes 1 Not Estab. % [facility] Immature Grans (Absolute) 0.0 0.0 - 0.1 x10E3/uL [facility] Blood (Blood, Venous) 06/07/2024 11:53 AM EST 06/07/2024 us Barry Reyes MD LAB BLOOD ORDERABLES Final Re sult [facility] [address] [place] [address] documented in this encounter Visit Diagnoses Diagnosis Chronic kidney disease, stage 2 (mild) Anemia in chronic kidney disease Iron deficiency anemia, not otherwise specified documented in this encounter Care Teams Bow Making Machine Operator Relationship Specialty Start Date End Date Sahra Son MD [address] [place] [address] PCP - General Internal Medicine 10/28/22 documented as of this encounter
--- OUTSIDE RECORDS SUMMARY | 2024-07-24 09:38 | XMS_ITS | Encounter Summary ---
Author Organization [facility] [place], Address [address] [place] [address] Phone Care Team Providers Care Fire Support Specialist Name Role Phone Sahra Son MD Primary Care Provider + Encounter Details Date Type Department Care Team (Late st Contact Info) Description 01/29/2023 Documentation Only [facility] [place], [address] [place] [address] [place] Davalos [address] [place] [address] Social History Tobacco Use [...] filedocumented in this encounter Care Teams Fire Support Specialist Relationship Specialty Start Date End Date Sahra Son MD [address] [address] PCP - General Internal Medicine 10/28/22 documented as of this encounter
--- OUTSIDE RECORDS SUMMARY | 2024-07-24 09:38 | XMS_ITS | Encounter Summary ---
Author Organization [facility] [place], Address [address] [place] [address] Phone Care Team Providers Care Damage Assessor Name Role Phone Sahra Son MD Primary Care Provider + Encounter Details Date Type Department Care Team (Late st Contact Info) Description 08/05/2023 Documentation Only [facility] [place], [address] [place] [address] [place] Davalos [address] [place] [address] Social History Tobacco Use Types [...] on filedocumented in this encounter Care Teams Damage Assessor Relationship Specialty Start Date End Date Sahra Son MD [address] [address] PCP - General Internal Medicine 10/28/22 documented as of this encounter
--- OUTSIDE RECORDS SUMMARY | 2024-07-24 09:38 | XMS_ITS | Encounter Summary ---
Author Organization [facility] [place], Address [address] [place] [address] Phone Care Team Providers Care School Year Nanny Name Role Phone Sahra Son MD Primary Care Provider + Encounter Details Date Type Department Care Team (Late st Contact Info) Description 07/03/2021 Documentation Only [facility] [place], [address] [facility] [place] [address] Juan Jose Li MD [address] [facility] [place] [address] Social History Tobacco Use Types [...] filedocumented in this encounter Care Teams School Year Nanny Relationship Specialty Start Date End Date Sahra Son MD [address] [address] PCP - General Internal Medicine 10/28/22 documented as of this encounter
--- OUTSIDE RECORDS SUMMARY | 2024-07-24 09:38 | XMS_ITS | Encounter Summary ---
Author Organization [facility] [place], Address [address] [place] [address] Phone Care Team Providers Care Test Desk Supervisor Name Role Phone Sahra Son MD Primary Care Provider + Encounter Details Date Type Department Care Team (Late st Contact Info) Description 06/25/2021 Documentation Only [facility] [place], [address] [place] [address] [place] Davalos [address] [place] [address] Social History Tobacco Use Types [...] on filedocumented in this encounter Care Teams Test Desk Supervisor Relationship Specialty Start Date End Date Sahra Son MD [address] [address] PCP - General Internal Medicine 10/28/22 documented as of this encounter
--- OUTSIDE RECORDS SUMMARY | 2024-07-24 09:38 | XMS_ITS | Encounter Summary ---
Author Organization [facility] [place], Address [address] [place] [address] Phone Care Team Providers Care Paginator Name Role Phone Sahra Son MD Primary Care Provider + Encounter Details Date Type Department Care Team (Late st Contact Info) Description 12/24/2022 Documentation Only [facility] [place], [address] [place] [address] Carol Whelan [address] [place] [address] Social History Tobacco Use [...] on filedocumented in this encounter Care Teams Paginator Relationship Specialty Start Date End Date Sahra Son MD [address] [address] PCP - General Internal Medicine 10/28/22 documented as of this encounter
--- OUTSIDE RECORDS SUMMARY | 2024-07-24 09:38 | XMS_ITS | Encounter Summary ---
Author Organization [facility] [place], Address [address] [place] [address] Phone Care Team Providers Care Report Developer Name Role Phone Sahra Son MD Primary Care Provider + Encounter Details Date Type Department Care Team (Late st Contact Info) Description 03/11/2023 Documentation Only [facility] [place], [address] [place] [address] India Davalos [address] [place] [address] Social History Tobacco Use [...] on filedocumented in this encounter Care Teams Report Developer Relationship Specialty Start Date End Date Sahra Son MD [address] [address] PCP - General Internal Medicine 10/28/22 documented as of this encounter
--- OUTSIDE RECORDS SUMMARY | 2024-07-24 09:38 | XMS_ITS | Encounter Summary ---
Author Organization [facility] [place], Address [address] [place] [address] Phone Care Team Providers Care Registered Dental Assistant Rda Name Role Phone Sahra Son MD Primary Care Provider + Encounter Details Date Type Department Care Team (Late st Contact Info) Description 08/27/2021 Documentation Only [facility] [place], [address] [place] [address] [place] Davalos [address] [place] [address] Social History Tobacco Use Types [...] on filedocumented in this encounter Care Teams Registered Dental Assistant Rda Relationship Specialty Start Date End Date Sahra Son MD [address] [address] PCP - General Internal Medicine 10/28/22 documented as of this encounter
--- OUTSIDE RECORDS SUMMARY | 2024-07-24 09:38 | XMS_ITS | Encounter Summary ---
Author Organization [facility] [place], Address [address] [place] [address] Phone Care Team Providers Care Kiln Feeder Name Role Phone Sahra Son MD Primary Care Provider + Encounter Details Date Type Department Care Team (Late st Contact Info) Description 06/09/2023 Documentation Only [facility] [place], [address] [place] [address] India Davalos [address] [place] [address] Social History Tobacco Use Types [...] filedocumented in this encounter Care Teams Kiln Feeder Relationship Specialty Start Date End Date Sahra Son MD [address] [address] PCP - General Internal Medicine 10/28/22 documented as of this encounter
--- OUTSIDE RECORDS SUMMARY | 2024-07-24 09:38 | XMS_ITS | Encounter Summary ---
Author Organization [facility] [place], Address [address] [place] [address] Phone Care Team Providers Care Senior Lead Project Manager Name Role Phone Sahra Son MD Primary Care Provider + Encounter Details Date Type Department Care Team (Late st Contact Info) Description 02/01/2023 Documentation Only [facility] [place], [address] [place] [address] [place] Davalos [address] [place], [place] [...] filedocumented in this encounter Care Teams Senior Lead Project Manager Relationship Specialty Start Date End Date Sahra Son MD [address] [address] PCP - General Internal Medicine 10/28/22 documented as of this encounter
--- OUTSIDE RECORDS SUMMARY | 2024-07-24 09:38 | XMS_ITS | Encounter Summary ---
Author Organization [facility] [place], Address [address] [place] [address] Phone Care Team Providers Care Treating Machine Operator Name Role Phone Sahra Son MD Primary Care Provider + Encounter Details Date Type Department Care Team (Late st Contact Info) Description 07/16/2023 Documentation Only [facility] [place], [address] [place] [address] India Davalos [address] [place] [address] Social History Tobacco Use Types [...] on filedocumented in this encounter Care Teams Treating Machine Operator Relationship Specialty Start Date End Date Sahra Son MD [address] [address] PCP - General Internal Medicine 10/28/22 documented as of this encounter
--- OUTSIDE RECORDS SUMMARY | 2024-07-24 09:38 | XMS_ITS | Encounter Summary ---
Author Organization [facility] [place], Address [address] [place] [address] Phone Care Team Providers Care Carburizing Furnace Operator Name Role Phone Sahra Son MD Primary Care Provider + Encounter Details Date Type Department Care Team (Late st Contact Info) Description 08/09/2023 Documentation Only [facility] [place], [address] [place] [address] Indai Davalos [address] [place] [address] Social History Tobacco Use [...] on filedocumented in this encounter Care Teams Carburizing Furnace Operator Relationship Specialty Start Date End Date Sahra Son MD [address] [address] PCP - General Internal Medicine 10/28/22 documented as of this encounter
--- OUTSIDE RECORDS SUMMARY | 2024-07-24 09:39 | XMS_ITS | Encounter Summary ---
Author Organization [facility] Address [address] [place] [address] Care Team Providers Care Information Technology Administrator Name Role Phone Sahra Son MD Primary Care Provider Paula vailable Marko Spaulding MD Unavailable [phone] Encounter Details Date Type Department Care Team Description 10/04/2022 Release of Information Medical Records [address] [place] [address] [facility] Social History Tobacco Use Types [...] in this encounter Care Teams Information Technology Administrator Relationship Specialty Start Date End Date Sahra Son MD PCP - General Internal Medicine 08/31/22 Marko Spaulding MD Specialist Cardiology 09/23/22 documented as of this encounter
--- OUTSIDE RECORDS SUMMARY | 2024-07-24 09:39 | XMS_ITS | Encounter Summary ---
Author Organization [facility] Address [address] [place] [address] Care Team Providers Care Senior Java Ui Developer Name Role Phone Tammie, Pcp Primary Care Provider Vinnie Rodriguez Primary Care Provider Sahra Keith MD Primary Care Provider Paula Marko Ferreira MD Unavailable [phone] Encounter Details Date Type Department Care Team Description 02/24/2017 [facility] Medical Records [address] [place] [address] Social History Tobacco Use Types Packs/Day Years [...] filedocumented in this encounter Care Teams Senior Java Ui Developer Relationship Specialty Start Date End Date Tammie, Pcp PCP - General Internal Medicine 07/24/13 03/29/17 Vinnie Santizo PCP - General Internal Medicine 03/30/17 08/30/22 Sahra Son MD PCP - General Internal Medicine 08/31/22 Marko Spaulding MD Specialist Cardiology 09/23/22 documented as of this encounter
--- OUTSIDE RECORDS SUMMARY | 2024-07-24 09:39 | XMS_ITS | Encounter Summary ---
Author Organization [employer] [facility] Address [address] [place] [address] Care Team Providers Care Central Supply Technician Supervisor Name Role Phone Vinnie Santizo Primary Care Provider Sahra Keith MD Primary Care Provider Marko Fernandez MD Unavailable [phone] Encounter Details Date Type Department Care Team Description 08/10/2018 SCAN Medical Records [address] [place] [address] Abstract, Provider Social History Tobacco Use Types [...] on filedocumented in this encounter Care Teams Central Supply Technician Supervisor Relationship Specialty Start Date End Date Vinnie Santizo PCP - General Internal Medicine 03/30/17 08/30/22 Sahra Son MD PCP - General Internal Medicine 08/31/22 Marko Spaulding MD Specialist Cardiology 09/23/22 documented as of this encounter
--- OUTSIDE RECORDS SUMMARY | 2024-07-24 09:39 | XMS_ITS | Encounter Summary ---
Author Organization [facility] [employer] [facility] Address [address] [place] [address] Care Team Providers Care Drywall Installer Name Role Phone Vinnie Santizo Primary Care Provider Sahra Keith MD Primary Care Provider Marko Fernandez MD Unavailable [phone] Encounter Details Date Type Department Care Team Description 08/19/2017 Administrative Aide Report Medical Records [address] [place] [address] Abstract, Provider Social History Tobacco Use Types [...] filedocumented in this encounter Care Teams Drywall Installer Relationship Specialty Start Date End Date Vinnie Santizo PCP - General Internal Medicine 03/30/17 08/30/22 Sahra Son MD PCP - General Internal Medicine 08/31/22 Marko Spaulding MD Specialist Cardiology 09/23/22 documented as of this encounter
--- OUTSIDE RECORDS SUMMARY | 2024-07-24 09:39 | XMS_ITS | Encounter Summary ---
Author Organization [facility] [employer] [facility] Address [address] [place] [address] Care Team Providers Care Payroll And Benefits Analyst Name Role Phone Vinnie Santizo Primary Care Provider Sahra Keith MD Primary Care Provider Paula Marko Ferreira MD Unavailable [phone] Encounter Details Date Type Department Care Team Description 11/10/2017 SCAN Medical Records [address] [place] [address] Vish Cruz MD Social History Tobacco Use [...] filedocumented in this encounter Care Teams Payroll And Benefits Analyst Relationship Specialty Start Date End Date Vinnie Santizo PCP - General Internal Medicine 03/30/17 08/30/22 Sahra Son MD PCP - General Internal Medicine 08/31/22 Marko Spaulding MD Specialist Cardiology 09/23/22 documented as of this encounter
--- OUTSIDE RECORDS SUMMARY | 2024-07-24 09:39 | XMS_ITS | Encounter Summary ---
Author Organization [facility] Address [address] [place] [address] Phone Care Team Providers Care Care Worker Name Role Phone Sahra Son MD Primary Care Provider + Encounter Details Date Type Department Care Team (Late st Contact Info) Description 04/28/2024 Orders Only [facility] [place], [address] [place] [address] India Davalos [address] [place] [address] Chronic kidney disease, stage 2 [...] Glucose 153(H) 70 - 99 mg/dL [facility] BUN 17 8 - 27 mg/dL [facility] Creatinine 0.98 0.57 - 1.00 mg/dL [facility] eGFR CKD-EPI CR 2020 64 >59 mL/min/1.7 3 [facility] BUN/Creatinine Ratio 17 12 - 28 [facility] Sodium 142 134 - 144 mmol/L [facility] Potassium 5.0 3.5 - 5.2 mmol/L [facility] Chloride 106 96 - 106 mmol/L [facility] Bicarbonate (CO2) 23 20 - 29 mmol/L [facility] Calcium 8.9 8.7 - 10.3 mg/dL [facility] Albumin 3.9 3.9 - 4.9 g/dL [facility] Phosphorus 3.9 3.0 - 4.3 mg/dL [facility] Blood (Blood, Venous) 05/05/2024 9:18 AM EST 05/05/2024 us Barry Reyes MD LAB BLOOD ORDERABLES Final Re sult [facility] [address] [place] [address] * (ABNORMAL) Ferritin (05/05/2024 9:18 AM EST) Pathologist [facility] Ferritin 282(H) 15 - 150 ng/mL [facility] Blood (Blood, Venous) 05/05/2024 9:18 AM EST 05/05/2024 Barry Reyes MD LAB BLOOD ORDERABLES Final Re sult Performing Organization Address City/[facility]/ZIP Co de Phone Number [facility] [address] [place] [address] * Iron Panel (Fe, TIBC, TSAT) (05/05/2024 9:18 AM EST) Pathologist [facility] TIBC 277 250 - 450 ug/dL [facility] UIBC 210 118 - 369 ug/dL [facility] Iron 67 27 - 139 ug/dL [facility] Iron Saturation (TSat) 24 15 - 55 % [facility] Blood (Blood, Venous) 05/05/2024 9:18 AM EST 05/05/2024 Barry Reyes MD LAB BLOOD ORDERABLES Final Re sult [facility] [address] [place] [address] * (ABNORMAL) CBC and Differential (05/05/2024 9:18 AM EST) Pathologist [facility] WBC 5.6 3.4 - 10.8 x10E3/uL [facility] RBC 5.33(H) 3.77 - 5.28 x10E6/uL [facility] Hemoglobin 10.2(L) 11.1 - 15.9 g/dL [facility] Hematocrit 35.0 34.0 - 46.6 % [facility] MCV 66(L) 79 - 97 fL [facility] MCH 19.1(L) 26.6 - 33.0 pg [facility] MCHC 29.1(L) 31.5 - 35.7 g/dL [facility] RDW 20.1(H) 11.7 - 15.4 % [facility] Platelets 163 150 - 450 x10E3/uL [facility] Neutrophils Relative 64 Not Estab. % [facility] Lymphocytes Relative 26 Not Estab. % [facility] Monocytes 6 Not Estab. % [facility] Eosinophils Relative 3 Not Estab. % [facility] Basophils Relative 1 Not Estab. % [facility] Neutrophils Absolute 3.6 1.4 - 7.0 x10E3/uL [facility] Lymphocytes Absolute 1.5 0.7 - 3.1 x10E3/uL [facility] Monocytes Absolute 0.3 0.1 - 0.9 x10E3/uL [facility] Eosinophils Absolute 0.2 0.0 - 0.4 x10E3/uL [facility] Basophils Absolute 0.0 0.0 - 0.2 x10E3/uL [facility] Immature Granulocytes 0 Not Estab. % [facility] Immature Grans (Absolute) 0.0 0.0 - 0.1 x10E3/uL [facility] Blood (Blood, Venous) 05/05/2024 9:18 AM EST 05/05/2024 us Barry Reyes MD LAB BLOOD ORDERABLES Final Re sult [facility] [address] [place] [address] documented in this encounter Visit Diagnoses Diagnosis Chronic kidney disease, stage 2 (mild) Anemia in chronic kidney disease Iron deficiency anemia, not otherwise specified documented in this encounter Care Teams Care Worker Relationship Specialty Start Date End Date Sahra Son MD [address] [place] [address] PCP - General Internal Medicine 10/28/22 documented as of this encounter
--- OUTSIDE RECORDS SUMMARY | 2024-07-24 09:39 | XMS_ITS | Encounter Summary ---
Author Organization [facility] [employer] [facility] Address [address] [place] [address] Care Team Providers Care Detailer Pharmaceuticals Name Role Phone Sahra Son MD Primary Care Provider Paula vailable Marko Spaulding MD Unavailable [phone] Encounter Details Date Type Department Care Team Description 09/15/2022 SCAN Medical Records [address] [place] [address] Abstract, Provider Social History Tobacco Use Types [...] on filedocumented in this encounter Care Teams Detailer Pharmaceuticals Relationship Specialty Start Date End Date Sahra Son MD PCP - General Internal Medicine 08/31/22 Marko Spaulding MD Specialist Cardiology 09/23/22 documented as of this encounter
--- OUTSIDE RECORDS SUMMARY | 2024-07-24 09:39 | XMS_ITS | Encounter Summary ---
Author Organization [employer] [facility] Address [address] [place] [address] Care Team Providers Care Dry Kiln Burner Name Role Phone Vinnie Santizo Primary Care Provider Sahra Keith MD Primary Care Provider Marko Fernandez MD Unavailable [phone] Reason for Visit * Reason Comments E-prescribe Rx Request Encounter Details Date Type Department Care Team Description 10/24/2017 Refill Pulmonology - [place] [address] [facility] [address] [place] [id number] Eneida Aucña NP E-prescribe Rx Request Social History Tobacco [...] NO Patients current insurance carrier is: Payor: [facility] / Plan: [facility] / Product Type: HMO [id number] documented in this encounter Plan of Treatment Not on file documented as of this encounter Visit Diagnoses Diagnosis Systemic lupus erythematosus, unspecified SLE type, unspecified organ involvement status (HCC) Pulmonary nodule Solitary pulmonary nodule Tobacco abuse Tobacco use disorder Asthma, unspecified asthma severity, unspecified whether complicated, unspecified whether persistent Multiple environmental allergies Cigarette smoker Tobacco use disorder documented in this encounter Care Teams Dry Kiln Burner Relationship Specialty Start Date End Date Vinnie Santizo PCP - General Internal Medicine 03/30/17 08/30/22 Sahra Son MD PCP - General Internal Medicine 08/31/22 Marko Spaulding MD Specialist Cardiology 09/23/22 documented as of this encounter
--- OUTSIDE RECORDS SUMMARY | 2024-07-24 09:39 | XMS_ITS | Encounter Summary ---
Author Organization [employer] [facility] Address [address] [place] [address] Care Team Providers Care Tire Sorter Name Role Phone Tammie, Pcp Primary Care Provider Vinnie Rodriguez Primary Care Provider Sahra Keith MD Primary Care Provider Paula vailable Marko Spaulding MD Unavailable [phone] Encounter Details Date Type Department Care Team Description 02/12/2015 SCAN Medical Records [address] [place] [address] Abstract, Provider Social History Tobacco Use Types [...] on filedocumented in this encounter Care Teams Tire Sorter Relationship Specialty Start Date End Date Tammie, Pcp PCP - General Internal Medicine 07/24/13 03/29/17 Vinnie Santizo PCP - General Internal Medicine 03/30/17 08/30/22 Sahra Son MD PCP - General Internal Medicine 08/31/22 Marko Spaulding MD Specialist Cardiology 09/23/22 documented as of this encounter
--- OUTSIDE RECORDS SUMMARY | 2024-07-24 09:39 | XMS_ITS | Encounter Summary ---
Author Organization [facility] Address [address] [place] [address] Care Team Providers Care Food Taster Name Role Phone Vinnie Santizo Primary Care Provider Obinna Merrill MD Primary Care Provider [facility] Tammie, Pcp Primary Care Provider Vinnie Rodriguez Primary Care Provider Sahra Keith MD Primary Care Provider Paula [facility] Marko Spaulding MD Unavailable Encounter Details Date Type Department Care Team Description 09/09/1998 [employer] Cardiology [address] [address] Gwen Jean UNSPECIFIED CHEST PAIN Social History Tobacco Use Types Packs/Day Years Used Date Smoking Tobacco: Never Assessed Sex Assigned at Date Recorded Not on file documented as of this encounter Plan of Treatment Not on file documented as of this encounter Visit Diagnoses Diagnosis Chest pain, unspecified documented in this encounter Care Teams Food Taster Relationship Specialty Start Date End Date Vinnie Santizo PCP - General 08/04/03 12/12/12 Obinna Mao MD PCP - General Internal Medicine 12/13/1207/23 [facility], Pcp PCP - General Internal Medicine 07/24/13 03/29/17 Vinnie Santizo PCP - General Internal Medicine 03/30/17 08/30/22 Sahra Son MD PCP - General Internal Medicine 08/31/22 Marko Spaulding MD Specialist Cardiology 09/23/22 documented as of this encounter
--- OUTSIDE RECORDS SUMMARY | 2024-07-24 09:39 | XMS_ITS | Encounter Summary ---
Author Organization [employer] [facility] Address [address] [place] [address] Care Team Providers Care Stockroom Coordinator Name Role Phone Vinnie Santizo Primary Care Provider Sahra Keith MD Primary Care Provider Marko Fernandez MD Unavailable [phone] Reason for Visit * Reason Comments E-prescribe Rx Request Encounter Details Date Type Department Care Team Description 05/07/2018 Refill Pulmonology - [place] [address] [facility] [address] [place] [phone] Royer Schulz MD E-prescribe Rx Request Social History Tobacco Use Types Packs/Day Years Used Date Smoking Tobacco: Every Day Cigarettes 1 1 Smokeless Tobacco: Never Alcohol Use Standard Drinks/Week Comments No 0 (1 standard drink = 0.6 oz pur e alcohol) Sex Assigned at Date Recorded Not on file documented as of this encounter Miscellaneous Notes * Telephone Encounter - Ritika Dumont - 05/09/2018 7:26 AM EST Patient would like script to be: E-PRESCRIBED/FAXED TO PHARMACY WHEN WAS THE PATIENT'S LAST APPOINTMENT WITH THE PRESCRIBING PROVIDER? 03/08/2018 Does patient have an upcoming appointment? Yes 05/11/2018 (THE MEDICATION REQUESTED IS ON THE MED LIST ABOVE) All of the medications requested were on the CURRENT MEDS list Did you check the Pharmacy information above?: YES Patient wants: 30 -day supply Is this a mail order prescription request ? NO Patients current insurance carrier is: Payor: [facility] / Plan: [facility] / Product Type: HMO [id number] documented in this encounter Plan of Treatment [...] persistent documented in this encounter Care Teams Stockroom Coordinator Relationship Specialty Start Date End Date Vinnie Santizo PCP - General Internal Medicine 03/30/17 08/30/22 Sahra Son MD PCP - General Internal Medicine 08/31/22 Marko Spaulding MD Specialist Cardiology 09/23/22 documented as of this encounter
--- OUTSIDE RECORDS SUMMARY | 2024-07-24 09:39 | XMS_ITS | Encounter Summary ---
Author Organization [facility] [employer] [facility] Address [address] [place] [address] Care Team Providers Care Biomass Technician Name Role Phone Vinnie Santizo Primary Care Provider Sahra Keith MD Primary Care Provider Marko Fernandez MD Unavailable [phone] Encounter Details Date Type Department Care Team Description 07/30/2022 Civil Engineering Teacher Report Medical Records [address] [place] [address] Sahra Son MD Social History Tobacco Use [...] on filedocumented in this encounter Care Teams Biomass Technician Relationship Specialty Start Date End Date Vinnie Santizo PCP - General Internal Medicine 03/30/17 08/30/22 Sahra Son MD PCP - General Internal Medicine 08/31/22 Marko Spaulding MD Specialist Cardiology 09/23/22 documented as of this encounter
--- OUTSIDE RECORDS SUMMARY | 2024-07-24 09:39 | XMS_ITS | Clinical Summary ---
Author Organization [facility] Address [address] [place] [address] Care Team Providers Care Paper Ruler Name Role Phone Geovani Natalie Carmelo ESPARZA Primary Care Provider [phone] Allergies Active Allergy Reactions Criticality Noted Date [...] 1 10/04/2016 Active ergocalciferol (VITAMIN D2) capsule 82659 units TK ONE C PO TWICE A [...] times a day. 0 04/27/2022 Active pancrelipase, Xyn-Ject-Kmta, (Creon) 20738-[address] units CPEP TK ONE C PO TID [...] age to complete this topic Care Teams Paper Ruler Relationship Specialty Start Date End Date Natalie Olivo APRN [address] [place] [address] PCP - General Wildlife Enforcement Major 04/30/22
--- OUTSIDE RECORDS SUMMARY | 2024-07-24 09:39 | XMS_ITS | Encounter Summary ---
Author Organization [facility] [employer] [facility] Address [address] [place] [address] Care Team Providers Care Exhaust Machine Operator Name Role Phone Vinnie Santizo Primary Care Provider Sahra Keith MD Primary Care Provider Marko Fernandez MD Unavailable [phone] Encounter Details Date Type Department Care Team Description 08/14/2022 SCAN Medical Records [address] [place] [address] Abstract, Provider Social History Tobacco Use Types [...] on filedocumented in this encounter Care Teams Exhaust Machine Operator Relationship Specialty Start Date End Date Vinnie Santizo PCP - General Internal Medicine 03/30/17 08/30/22 Sahra Son MD PCP - General Internal Medicine 08/31/22 Marko Spaulding MD Specialist Cardiology 09/23/22 documented as of this encounter
--- OUTSIDE RECORDS SUMMARY | 2024-07-24 09:39 | XMS_ITS | Encounter Summary ---
Author Organization [employer] [facility] Address [address] [place] [address] Care Team Providers Care Scourer Name Role Phone Tammie, Pcp Primary Care Provider Vinnie Rodriguez Primary Care Provider Sahra Keith MD Primary Care Provider Paula Marko Ferreira MD Unavailable [phone] Encounter Details Date Type Department Care Team Description 11/13/2016 SCAN Medical Records [address] [place] [address] Aniceto Michelle Social History Tobacco Use Types [...] on filedocumented in this encounter Care Teams Scourer Relationship Specialty Start Date End Date Tammie, Pcp PCP - General Internal Medicine 07/24/13 03/29/17 Vinnie Santizo PCP - General Internal Medicine 03/30/17 08/30/22 Sahra Son MD PCP - General Internal Medicine 08/31/22 Marko Spaulding MD Specialist Cardiology 5/10/23 documented as of this encounter
--- OUTSIDE RECORDS SUMMARY | 2024-07-24 09:39 | XMS_ITS | Encounter Summary ---
Author Organization [facility], Address [address] [place] [address] Phone Care Team Providers Care Power Builder Developer Name Role Phone Sahra Son MD Primary Care Provider + Encounter Details Date Type Department Care Team (Late st Contact Info) Description 04/05/2024 Documentation Only [facility], [address] [place] [address] India Davalos [address] [place] [address] Social History Tobacco Use Types [...] filedocumented in this encounter Care Teams Power Builder Developer Relationship Specialty Start Date End Date Sahra Son MD [address] [address] PCP - General Internal Medicine 10/28/22 documented as of this encounter
--- OUTSIDE RECORDS SUMMARY | 2024-07-24 09:39 | XMS_ITS | Encounter Summary ---
Author Organization [employer] [facility] Address [address] [place] [address] Care Team Providers Care Cheese Processor Name Role Phone Vinnie Santizo Primary Care Provider Sahra Keith MD Primary Care Provider Marko Fernandez MD Unavailable Encounter Details Date Type Department Care Team Description 11/11/2017 SCAN Medical Records [address] [place] [address] Chela Solis MD Social History Tobacco Use [...] on filedocumented in this encounter Care Teams Cheese Processor Relationship Specialty Start Date End Date Vinnie Santizo PCP - General Internal Medicine 03/30/17 08/30/22 Sahra Son MD PCP - General Internal Medicine 08/31/22 Marko Spaulding MD Specialist Cardiology 09/23/22 documented as of this encounter
--- OUTSIDE RECORDS SUMMARY | 2024-07-24 09:39 | XMS_ITS | Encounter Summary ---
Author Organization [facility] [place], Address [address] [place] [address] Phone Care Team Providers Care Casing Splitter Name Role Phone Sahra Son MD Primary Care Provider + Encounter Details Date Type Department Care Team (Late st Contact Info) Description 03/31/2024 Orders Only [facility], [address] [place] [address] India Davalos [address] [place] [address] Chronic kidney disease, stage 2 [...] specified documented in this encounter Care Teams Casing Splitter Relationship Specialty Start Date End Date Sahra Son MD [address] [address] PCP - General Internal Medicine 10/28/22 documented as of this encounter
--- OUTSIDE RECORDS SUMMARY | 2024-07-24 09:39 | XMS_ITS | Encounter Summary ---
Author Organization [facility] Address [address] [place] [address] Phone Care Team Providers Care Order Checker Packer Processer Name Role Phone Sahra Son MD Primary Care Provider + Encounter Details Date Type Department Care Team (Late st Contact Info) Description 05/01/2024 Telephone [facility] [place], [address] [place] [address] Olesya Han [address] [place] [address] Social History Tobacco Use Types [...] on filedocumented in this encounter Care Teams Order Checker Packer Processer Relationship Specialty Start Date End Date Sahra Son MD [address] [id number] PCP - General Internal Medicine 10/28/22 documented as of this encounter
--- OUTSIDE RECORDS SUMMARY | 2024-07-24 09:39 | XMS_ITS | Encounter Summary ---
Author Organization [facility] [employer] [facility] Address [address] [place] [address] Care Team Providers Care Sales Correspondent Name Role Phone Vinnie Santizo Primary Care Provider Sahra Keith MD Primary Care Provider Marko Fernandez MD Unavailable [phone] Encounter Details Date Type Department Care Team Description 07/30/2022 Assembler [employer] Spider Report Medical Records [address] [place] [address] Sahra Son MD Social History Tobacco Use [...] filedocumented in this encounter Care Teams Sales Correspondent Relationship Specialty Start Date End Date Vinnie Santizo PCP - General Internal Medicine 03/30/17 08/30/22 Sahra Son MD PCP - General Internal Medicine 08/31/22 Marko Spaulding MD Specialist Cardiology 09/23/22 documented as of this encounter
--- OUTSIDE RECORDS SUMMARY | 2024-07-24 09:39 | XMS_ITS | Encounter Summary ---
Author Organization [facility] [employer] [facility] Address [address] [place] [address] Care Team Providers Care Manager Social Services Name Role Phone Sahra Son MD Primary Care Provider Paula vailable Marko Spaulding MD Unavailable [phone] Encounter Details Date Type Department Care Team Description 10/19/2022 SCAN Medical Records [address] [place] [address] Abstract, Provider Social History Tobacco Use Types [...] suspected to have Coronavirus/COVID-19? No / Unsure 10/22/2022 1:54 PM EDT documented as of this encounter Plan of Treatment Not on file documented as of this encounter Procedures Procedure Name Priority Date/Time Associated Diagnosis Comments OUTSIDE LAB Routine 10/19/2022 documented in this encounter Results * OUTSIDE LAB (10/19/2022) Provider Abstract LAB documented in this encounter Visit Diagnoses Not on filedocumented in this encounter Care Teams Manager Social Services Relationship Specialty Start Date End Date Sahra Son MD PCP - General Internal Medicine 08/31/22 Marko Spaulding MD Specialist Cardiology 09/23/22 documented as of this encounter
--- OUTSIDE RECORDS SUMMARY | 2024-07-24 09:39 | XMS_ITS | Encounter Summary ---
Author Organization [facility] [place], Address [address] [place] [address] Phone Care Team Providers Care Asp Net Software Developer Name Role Phone Sahra Son MD Primary Care Provider + Encounter Details Date Type Department Care Team (Late st Contact Info) Description 10/30/2022 Documentation Only [facility], [address] [place] [address] India Davalos [address] [place] [address] Social History Tobacco Use Types [...] on filedocumented in this encounter Care Teams Asp Net Software Developer Relationship Specialty Start Date End Date Sahra Son MD [address] [address] PCP - General Internal Medicine 10/28/22 documented as of this encounter
--- OUTSIDE RECORDS SUMMARY | 2024-07-24 09:39 | XMS_ITS | Encounter Summary ---
Author Organization [facility], Address [address] [place] [address] Phone Care Team Providers Care Blackjack Dealer Name Role Phone Sahra Son MD Primary Care Provider + Encounter Details Date Type Department Care Team (Late st Contact Info) Description 04/05/2024 Documentation Only [facility], [address] [place] [address] India Davalos [address] [place] [address] Social History Tobacco Use Types [...] on filedocumented in this encounter Care Teams Blackjack Dealer Relationship Specialty Start Date End Date Sahra Son MD [address] [address] PCP - General Internal Medicine 10/28/22 documented as of this encounter
--- OUTSIDE RECORDS SUMMARY | 2024-07-24 09:39 | XMS_ITS | Encounter Summary ---
Author Organization [employer] [facility] Address [address] [place] [address] Care Team Providers Care Flooring Helper Name Role Phone Vinnie Santizo Primary Care Provider Sahra Keith MD Primary Care Provider Marko Fernandez MD Unavailable [phone] Encounter Details Date Type Department Care Team Description 08/13/2018 [facility] Medical Records [address] [place] [id number] Social History Tobacco Use Types Packs/Day Years [...] on filedocumented in this encounter Care Teams Flooring Helper Relationship Specialty Start Date End Date Vinnie Santizo PCP - General Internal Medicine 03/30/17 08/30/22 Sahra Son MD PCP - General Internal Medicine 08/31/22 Marko Spaulding MD Specialist Cardiology 09/23/22 documented as of this encounter
--- OUTSIDE RECORDS SUMMARY | 2024-07-24 09:40 | XMS_ITS | Encounter Summary ---
Author Organization [facility], Address [address] [place] [address] Phone Care Team Providers Care Molded Frames Assembler Name Role Phone Sahra Son MD Primary Care Provider + Encounter Details Date Type Department Care Team (Late st Contact Info) Description 06/23/2024 Orders Only [facility], [address] [place] [address] India Davalos [address] [place] [address] Chronic kidney disease, stage [...] specified documented in this encounter Care Teams Molded Frames Assembler Relationship Specialty Start Date End Date Sahra Son MD [address] [address] PCP - General Internal Medicine 10/28/22 documented as of this encounter
--- OUTSIDE RECORDS SUMMARY | 2024-07-24 09:40 | XMS_ITS | Encounter Summary ---
Author Organization [facility] Address [address] [place] [address] Care Team Providers Care Banquet Stewardess Name Role Phone Sahra Son MD Primary Care Provider Paula vailable Marko Spaulding MD Unavailable [phone] Encounter Details Date Type Department Care Team Description 05/06/2023 Supervisor Braiding Report Medical Records [address] [place] [address] Sahra Son MD Social History Tobacco Use [...] on filedocumented in this encounter Care Teams Banquet Stewardess Relationship Specialty Start Date End Date Sahra Son MD PCP - General Internal Medicine 08/31/22 Marko Spualding MD Specialist Cardiology 09/23/22 documented as of this encounter
--- OUTSIDE RECORDS SUMMARY | 2024-07-24 09:40 | XMS_ITS | Encounter Summary ---
Author Organization [facility] Address [address] [place] [address] Phone Care Team Providers Care Shine Worker Name Role Phone Sahra Son MD Primary Care Provider + Encounter Details Date Type Department Care Team (Late st Contact Info) Description 07/21/2024 Orders Only [facility] [place], [address] [place] [address] India Davalos [address] [place] [address] Chronic kidney disease, stage 2 [...] specified documented in this encounter Care Teams Shine Worker Relationship Specialty Start Date End Date Sahra Son MD [address] [address] PCP - General Internal Medicine 10/28/22 documented as of this encounter
--- OUTSIDE RECORDS SUMMARY | 2024-07-24 09:40 | XMS_ITS | Encounter Summary ---
Author Organization [facility] Address [address] [place] [address] Care Team Providers Care Manager Group Name Role Phone Sahra Son MD Primary Care Provider Paula daryilable Marko Spaulding MD Unavailable [phone] Encounter Details Date Type Department Care Team Description 12/17/2022 Orders Only Medical Records [address] [place] [address] Abstract, Provider Social History Tobacco Use Types [...] filedocumented in this encounter Care Teams Manager Group Relationship Specialty Start Date End Date Sahra Son MD PCP - General Internal Medicine 08/31/22 Marko Spaulding MD Specialist Cardiology 09/23/22 documented as of this encounter
--- OUTSIDE RECORDS SUMMARY | 2024-07-24 09:40 | XMS_ITS | Encounter Summary ---
Author Organization [facility] Address [address] [place] [address] Care Team Providers Care Inspector Poising Name Role Phone Sahra Son MD Primary Care Provider Paula vailable Marko Spaulding MD Unavailable [phone] Encounter Details Date Type Department Care Team Description 11/16/2022 Orders Only Pulmonology - [place] [address] [facility] [address] [place] [phone] Betty Morillo MD 175 [facility] [address] [place] [phone] Social History Tobacco Use Types Packs/Day Years [...] on filedocumented in this encounter Care Teams Inspector Poising Relationship Specialty Start Date End Date Sahra Son MD PCP - General Internal Medicine 08/31/22 Marko Spaulding MD Specialist Cardiology 09/23/22 documented as of this encounter
--- OUTSIDE RECORDS SUMMARY | 2024-07-24 09:40 | XMS_ITS | Encounter Summary ---
Author Organization [facility] Address [address] [place] [address] Care Team Providers Care Cardiac Catheterization Technician Name Role Phone Sahra Son MD Primary Care Provider Paula Marko Ferreira MD Unavailable [phone] Reason for Visit * Reason Onset Date Comments External Sleep Study Request 12/08/2022 Sle ep Study Encounter Details Date Type Department Care Team Description 12/08/2022 Telephone Pulmonology - [place] [address] [facility] [address] [place] [phone] Betty Morillo MD 175 [facility] [address] [place] [phone] External Sleep Study Request (Sleep Study/) Social [...] on filedocumented in this encounter Care Teams Cardiac Catheterization Technician Relationship Specialty Start Date End Date Sahra Son MD PCP - General Internal Medicine 08/31/22 Marko Spaulding MD Specialist Cardiology 09/23/22 documented as of this encounter
--- NOTE | 2024-07-24 09:58 | MHC.OFFVISCO ---
Intake Intake Visit Reasons: Anticoagulation Allergies codeine [Codeine] Allergy (Severe, Verified 07/24/24 09:20) DIFFICULTY BREATHING Penicillins Allergy (Severe, Verified 07/24/24 09:20) RASH penicillin V Allergy (Intermediate, Verified 07/24/24 09:20) RASH tramadol [Ultram] Allergy (Unknown, Verified 07/24/24 09:20) hallucinations Shellfish Allergy (Severe, Uncoded 07/24/24 09:20) THROAT SWELLING Contrast Allergy PreMed Pack Allergy (Unknown, Uncoded 07/24/24 09:20) TREAT WITH BENADRYL ferrlecit Adverse Reaction (Intermediate, Uncoded 07/24/24 09:20) Rash Medication List - Last Reconciled 07/24/24 by Tangela Sam RN atorvastatin 80 mg PO DAILY blood sugar diagnostic As directed budesonide (Pulmicort) 0.25 mg inhalation BID clonidine HCl 0.1 mg PO BID duloxetine 120 mg PO QAM epoetin marj (Procrit) 2,000 units subcut 3XW hydrocortisone 2.5% appl topical ipratropium-albuterol 0.5 mg-3 mg(2.5 mg base)/3 mL mL inhalation ipratropium-albuterol 20-100 mcg/actuation 1 puff PO QID ipratropium-albuterol 20-100 mcg/actuation (Combivent Respimat) 1 puff inhalation Q4H lancets As directed lancets As directed latanoprost 0.005% drps ophthalmic (eye) linagliptin (Tradjenta) 5 mg PO DAILY gmmjqf-xttmqrxn-olhjusg 24,000-76,000 -120,000 unit (Creon) 1 cap PO TID loratadine 10 mg PO DAILY PRN lorazepam 1 mg PO BID meclizine mg PO montelukast 10 mg PO BEDTIME nifedipine ER 30 mg PO DAILY nitroglycerin 0.4 mg sublingual Q5M PRN nystatin 1 appl topical DAILY PRN ondansetron 4 mg PO Q8H PRN oxcarbazepine (Trileptal) 1 tab qhs x's 1 week then 1 tab bid orally .; 30 days quetiapine 200 mg PO BEDTIME rabeprazole 20 mg PO DAILY ropinirole 0.25 mg PO BEDTIME sodium chloride 0.65% (Deep Sea Nasal) sprays intranasal Q2H PRN triamcinolone acetonide 0.1% appl topical warfarin 2.5 mg See Protocol PO DAILY Nursing Note pt comes to [facility] feeling better - states no more seizures now taking seizure med q hs INR: 2.1 in therapeutic range Medications and supplements reviewed-UPDATED IN EMR No changes in health, diet, medications, or supplements, Denies any signs and symptoms of bleeding or bruising or clotting. Bleeding, bruising, clotting discussed Nutritional guidance given Dose: keep same dose for now 5mg x 1 day/ 2.5mg x 6 days F/U INR: 2 weeks Patient verbalizes understanding of instructions given Anti-Coag Initial Assessment Social Hx Patient Tobacco Use Status: Current everyday Tobacco user alcohol intake: never Coding Level of Care Code Est Patient Level 1 Diagnoses Current use of anticoagulant therapy Z79.01 Results AMB INR Fingerstick AMB INR Fingerstick 2.1 Last Edit by Tangela Sam RN on 07/24/24 09:32 manual entry Assessment & Plan Assessment & Plan (1) Current use of anticoagulant therapy: Code(s): Z79.01 - senior living (current) use of anticoagulants Category: Medical Medications: New nystatin 1 appl topical DAILY PRN nitroglycerin do not exceed 3 doses per episode 0.4 mg sublingual Q5M PRN budesonide (Pulmicort) 0.25 mg inhalation BID ipratropium-albuterol 20-100 mcg/actuation (Combivent Respimat) 1 puff inhalation Q4H
== END 2024-07-24 09:57 | disposition home or self-care (01) ==
LOC: HO.ACS 09:05
PROVIDERS: PCP Internal Medicine; Visit Provider Internal Medicine
DX: Z79.01 Long term (current) use of anticoagulants (principal)

== ENCOUNTER → 2024-07-24 09:05 | Outpatient (BNVA) | payer OTHER, SELFPAY | PROVIDERS: PCP Internal Medicine; Visit Provider Internal Medicine | DX: Z86.718 Personal history of other venous thrombosis and embolism (principal); Z79.01 Long term (current) use of anticoagulants; Z51.81 Encounter for therapeutic drug level monitoring | CPT/HCPCS: 85610; 99211 ==

== ENCOUNTER 2024-07-25 09:48 | Outpatient (REF) | payer OTHER, SELFPAY ==
--- NOTE | 2024-07-25 09:50 | EEG_ITS ---
This is a 16-channel EEG with an EKG lead. The patient is reported awake and drowsy. Background EEG rhythm is 12 to 16 hertz, 5 to 15 microvolt posteriorly, and lower amplitude fast anteriorly. Intermittently, left temporal sharp waves and sharply contoured theta range discharges were noted. Photic stimulation did not produce any significant driving. Hyperventilation was not performed. Cardiac lead did not reveal any significant abnormality. IMPRESSION: Mildly EEG revealing left temporal irritability. MD TRINITY Hernandez/TARA / [id number]
--- OUTSIDE RECORDS SUMMARY | 2024-07-25 11:07 | XMS_ITS | Encounter Summary ---
Author Organization [facility], Address [address] [place] [address] Phone Care Team Providers Care Dough Machine Operator Name Role Phone Sahra Son MD Primary Care Provider + Encounter Details Date Type Department Care Team (Late st Contact Info) Description 09/28/2022 Documentation Only [facility], [address] [place] [address] India Davalos [address] [place] [address] Social History Tobacco Use Types [...] on filedocumented in this encounter Care Teams Dough Machine Operator Relationship Specialty Start Date End Date Sahra Son MD [address] [address] PCP - General Internal Medicine 10/28/22 documented as of this encounter
--- OUTSIDE RECORDS SUMMARY | 2024-07-25 11:07 | XMS_ITS | Encounter Summary ---
Author Organization [facility], Address [address] [place] [address] Phone Care Team Providers Care Senior Technical Analyst Name Role Phone Sahra Son MD Primary Care Provider + Encounter Details Date Type Department Care Team (Late st Contact Info) Description 09/28/2022 Documentation Only [facility], [address] [place] [address] India Davalos [address] [place] [address] Social History Tobacco Use Types [...] in this encounter Care Teams Senior Technical Analyst Relationship Specialty Start Date End Date Sahra Son MD [address] [address] PCP - General Internal Medicine 10/28/22 documented as of this encounter
--- OUTSIDE RECORDS SUMMARY | 2024-07-25 11:07 | XMS_ITS | Encounter Summary ---
Author Organization [facility] Address [address] [place] [address] Phone Care Team Providers Care Acid Wash Operator Name Role Phone Sahra Son MD Primary Care Provider + Encounter Details Date Type Department Care Team (Late st Contact Info) Description 04/28/2024 Orders Only [facility], [address] [place] [address] India Davalos [address] [place] [address] Chronic kidney disease, stage 2 [...] Glucose 153(H) 70 - 99 mg/dL [facility] BUN 17 8 - 27 mg/dL [facility] Creatinine 0.98 0.57 - 1.00 mg/dL [facility] eGFR CKD-EPI CR 2020 64 >59 mL/min/1.7 3 [facility] BUN/Creatinine Ratio 17 12 - 28 [facility] Sodium 142 134 - 144 mmol/L [facility] Potassium 5.0 3.5 - 5.2 mmol/L [facility] Chloride 106 96 - 106 mmol/L [facility] Bicarbonate (CO2) 23 20 - 29 mmol/L [facility] Calcium 8.9 8.7 - 10.3 mg/dL [facility] Albumin 3.9 3.9 - 4.9 g/dL [facility] Phosphorus 3.9 3.0 - 4.3 mg/dL [facility] Blood (Blood, Venous) 05/05/2024 9:18 AM EST 05/05/2024 us Barry Reyes MD LAB BLOOD ORDERABLES Final Re sult [facility] [address] [place] [address] * (ABNORMAL) Ferritin (05/05/2024 9:18 AM EST) Pathologist [facility] Ferritin 282(H) 15 - 150 ng/mL [facility] Blood (Blood, Venous) 05/05/2024 9:18 AM EST 05/05/2024 Barry Reyes MD LAB BLOOD ORDERABLES Final Re sult Performing Organization Address City/[facility]/ZIP Co de Phone Number [facility] [address] [place] [address] * Iron Panel (Fe, TIBC, TSAT) (05/05/2024 9:18 AM EST) Pathologist [facility] TIBC 277 250 - 450 ug/dL [facility] UIBC 210 118 - 369 ug/dL [facility] Iron 67 27 - 139 ug/dL [facility] Iron Saturation (TSat) 24 15 - 55 % [facility] Blood (Blood, Venous) 05/05/2024 9:18 AM EST 05/05/2024 Barry Reyes MD LAB BLOOD ORDERABLES Final Re sult [facility] [address] [place] [address] * (ABNORMAL) CBC and Differential (05/05/2024 9:18 AM EST) Pathologist [facility] WBC 5.6 3.4 - 10.8 x10E3/uL [facility] RBC 5.33(H) 3.77 - 5.28 x10E6/uL [facility] Hemoglobin 10.2(L) 11.1 - 15.9 g/dL [facility] Hematocrit 35.0 34.0 - 46.6 % [facility] MCV 66(L) 79 - 97 fL [facility] MCH 19.1(L) 26.6 - 33.0 pg [facility] MCHC 29.1(L) 31.5 - 35.7 g/dL [facility] RDW 20.1(H) 11.7 - 15.4 % [facility] Platelets 163 150 - 450 x10E3/uL [facility] Neutrophils Relative 64 Not Estab. % [facility] Lymphocytes Relative 26 Not Estab. % [facility] Monocytes 6 Not Estab. % [facility] Eosinophils Relative 3 Not Estab. % [facility] Basophils Relative 1 Not Estab. % [facility] Neutrophils Absolute 3.6 1.4 - 7.0 x10E3/uL [facility] Lymphocytes Absolute 1.5 0.7 - 3.1 x10E3/uL [facility] Monocytes Absolute 0.3 0.1 - 0.9 x10E3/uL [facility] Eosinophils Absolute 0.2 0.0 - 0.4 x10E3/uL [facility] Basophils Absolute 0.0 0.0 - 0.2 x10E3/uL [facility] Immature Granulocytes 0 Not Estab. % [facility] Immature Grans (Absolute) 0.0 0.0 - 0.1 x10E3/uL [facility] Blood (Blood, Venous) 05/05/2024 9:18 AM EST 05/05/2024 us Barry Reyes MD LAB BLOOD ORDERABLES Final Re sult [facility] [address] [place] [address] documented in this encounter Visit Diagnoses Diagnosis Chronic kidney disease, stage 2 (mild) Anemia in chronic kidney disease Iron deficiency anemia, not otherwise specified documented in this encounter Care Teams Acid Wash Operator Relationship Specialty Start Date End Date Sahra Son MD [address] [place] [address] PCP - General Internal Medicine 10/28/22 documented as of this encounter
--- OUTSIDE RECORDS SUMMARY | 2024-07-25 11:07 | XMS_ITS | Encounter Summary ---
Author Organization [facility] Address [address] [place] [address] Phone Care Team Providers Care Business Librarian Name Role Phone Sahra Son MD Primary Care Provider + Encounter Details Date Type Department Care Team (Late st Contact Info) Description 05/01/2024 Telephone [facility] [place], [address] [place] [address] Olesya Han [address] [place] [address] Social History Tobacco Use Types [...] on filedocumented in this encounter Care Teams Business Librarian Relationship Specialty Start Date End Date Sahra Son MD [address] [id number] PCP - General Internal Medicine 10/28/22 documented as of this encounter
--- OUTSIDE RECORDS SUMMARY | 2024-07-25 11:07 | XMS_ITS | Encounter Summary ---
Author Organization [facility] [place], Address [address] [place] [address] Phone Care Team Providers Care Ophthalmic Technician Name Role Phone Sahra Son MD Primary Care Provider + Encounter Details Date Type Department Care Team ([facility] st Contact Info) Description 04/05/2024 Documentation Only [facility] [place], [address] [place] [address] India Davalos [address] [place] [address] Social History Tobacco Use [...] on filedocumented in this encounter Care Teams Ophthalmic Technician Relationship Specialty Start Date End Date Sahra Son MD [address] [address] PCP - General Internal Medicine 10/28/22 documented as of this encounter
--- OUTSIDE RECORDS SUMMARY | 2024-07-25 11:07 | XMS_ITS | Encounter Summary ---
Author Organization [facility] [place], Address [address] [place] [address] Phone Care Team Providers Care Infant And Toddler Teacher Name Role Phone Sahra Son MD Primary Care Provider + Encounter Details Date Type Department Care Team (Late st Contact Info) Description 09/18/2022 Documentation Only [facility], [address] [place] [address] India Davalos [address] [place] [address] Social History Tobacco Use Types [...] on filedocumented in this encounter Care Teams Infant And Toddler Teacher Relationship Specialty Start Date End Date Sahra Son MD [address] [address] PCP - General Internal Medicine 10/28/22 documented as of this encounter
--- OUTSIDE RECORDS SUMMARY | 2024-07-25 11:07 | XMS_ITS | Encounter Summary ---
Author Organization [facility] [place], Address [address] [place] [address] Phone Care Team Providers Care Copping Machine Operator Name Role Phone Sahra Son MD Primary Care Provider + Encounter Details Date Type Department Care Team (Late st Contact Info) Description 09/28/2022 Documentation Only [facility], [address] [place] [address] India Davalos [address] [place] [address] Social History Tobacco Use Types [...] on filedocumented in this encounter Care Teams Copping Machine Operator Relationship Specialty Start Date End Date Sarha Son MD [address] [address] PCP - General Internal Medicine 10/28/22 documented as of this encounter
--- OUTSIDE RECORDS SUMMARY | 2024-07-25 11:07 | XMS_ITS | Encounter Summary ---
Author Organization [facility] Address [address] [place] [address] Phone Care Team Providers Care Sub Plant Manager Name Role Phone Sahra Son MD Primary Care Provider + Encounter Details Date Type Department Care Team (Late st Contact Info) Description 03/31/2024 Orders Only [facility] [place], [address] [place] [address] India Davalos [address] [place] [address] Chronic kidney disease, stage 2 [...] specified documented in this encounter Care Teams Sub Plant Manager Relationship Specialty Start Date End Date Sahra Son MD [address] [address] PCP - General Internal Medicine 10/28/22 documented as of this encounter
--- OUTSIDE RECORDS SUMMARY | 2024-07-25 11:07 | XMS_ITS | Encounter Summary ---
Author Organization [facility] [place], Address [address] [place] [address] Phone Care Team Providers Care Scallop Shucker Name Role Phone Sahra Son MD Primary Care Provider + Encounter Details Date Type Department Care Team ([facility] st Contact Info) Description 04/05/2024 Documentation Only [facility], [address] [place] [address] India Davalos [address] [place] [address] Social History Tobacco Use Types [...] on filedocumented in this encounter Care Teams Scallop Shucker Relationship Specialty Start Date End Date Sahra Son MD [address] [address] PCP - General Internal Medicine 10/28/22 documented as of this encounter
--- OUTSIDE RECORDS SUMMARY | 2024-07-25 11:07 | XMS_ITS | Encounter Summary ---
Author Organization [facility] [place], Address [address] [place] [address] Phone Care Team Providers Care Wreath And Garland Maker Hand Name Role Phone Sahra Son MD Primary Care Provider + Encounter Details Date Type Department Care Team (Late st Contact Info) Description 06/18/2021 Documentation Only [facility], [address] [place] [address] India Davalos [address] [place] [address] Social History Tobacco Use Types [...] on filedocumented in this encounter Care Teams Wreath And Garland Maker Hand Relationship Specialty Start Date End Date Sahra Son MD [address] [address] PCP - General Internal Medicine 10/28/22 documented as of this encounter
--- OUTSIDE RECORDS SUMMARY | 2024-07-25 11:07 | XMS_ITS | Encounter Summary ---
Author Organization [facility] [place], Address [address] [place] [address] Phone Care Team Providers Care Strategic Planning Analyst Name Role Phone Sahra Son MD Primary Care Provider + Encounter Details Date Type Department Care Team (Late st Contact Info) Description 06/17/2022 Documentation Only [facility], [address] [place] [address] India Davalos [address] [place] [address] Social History Tobacco Use Types [...] filedocumented in this encounter Care Teams Strategic Planning Analyst Relationship Specialty Start Date End Date Sahra Son MD [address] [address] PCP - General Internal Medicine 10/28/22 documented as of this encounter
--- OUTSIDE RECORDS SUMMARY | 2024-07-25 11:07 | XMS_ITS | Encounter Summary ---
Author Organization [facility] [place], Address [address] [place] [address] Phone Care Team Providers Care Ammonium Nitrate Crystallizer Name Role Phone Sahra Son MD Primary Care Provider + Encounter Details Date Type Department Care Team (Late st Contact Info) Description 09/28/2022 Documentation Only [facility], [address] [place] [address] India Davalos [address] [place] [address] Social History Tobacco Use Types [...] on filedocumented in this encounter Care Teams Ammonium Nitrate Crystallizer Relationship Specialty Start Date End Date Sahra Son MD [address] [address] PCP - General Internal Medicine 10/28/22 documented as of this encounter
--- OUTSIDE RECORDS SUMMARY | 2024-07-25 11:08 | XMS_ITS | Encounter Summary ---
Author Organization [facility] [place], Address [address] [place] [address] Phone Care Team Providers Care Artificial Foliage Arranger Name Role Phone Sahra Son MD Primary Care Provider + Encounter Details Date Type Department Care Team (Late st Contact Info) Description 06/16/2022 Documentation Only [facility] [place], [address] [place] [address] India Davalos [address] [place], [place] [...] on filedocumented in this encounter Care Teams Artificial Foliage Arranger Relationship Specialty Start Date End Date Sahra Son MD [address] [address] PCP - General Internal Medicine 10/28/22 documented as of this encounter
--- OUTSIDE RECORDS SUMMARY | 2024-07-25 11:08 | XMS_ITS | Encounter Summary ---
Author Organization [facility] [place], Address [address] [place] [address] Phone Care Team Providers Care Application Integrator Name Role Phone Sahra Son MD Primary Care Provider + Encounter Details Date Type Department Care Team (Late st Contact Info) Description 11/05/2023 Documentation Only [facility] [place], [address] [address] India Davalos [address] [place] [address] Social History Tobacco Use Types [...] on filedocumented in this encounter Care Teams Application Integrator Relationship Specialty Start Date End Date Sahra Son MD [address] [address] PCP - General Internal Medicine 10/28/22 documented as of this encounter
--- OUTSIDE RECORDS SUMMARY | 2024-07-25 11:08 | XMS_ITS | Encounter Summary ---
Author Organization [facility] Address [address] [place] [address] Phone Care Team Providers Care Jet Worker Name Role Phone Sahra Son MD Primary Care Provider + Encounter Details Date Type Department Care Team (Late st Contact Info) Description 01/31/2024 Orders Only [facility] [place], [address] [place] [address] Arlene Alston PA Chronic kidney [...] (HCC) documented in this encounter Care Teams Jet Worker Relationship Specialty Start Date End Date Sahra Son MD [address] [facility] [address] [place] [address] PCP - General Internal Medicine 10/28/22 documented as of this encounter
--- OUTSIDE RECORDS SUMMARY | 2024-07-25 11:08 | XMS_ITS | Encounter Summary ---
Author Organization [facility] [place], Address [address] [place] [address] Phone Care Team Providers Care Outside Sales Executive Name Role Phone Sahra Son MD Primary Care Provider + Encounter Details Date Type Department Care Team (Late st Contact Info) Description 01/04/2024 Documentation Only [facility] [place], [address] [place] [address] India Davalos [address] [place] [address] Social History Tobacco Use Types [...] in this encounter Care Teams Outside Sales Executive Relationship Specialty Start Date End Date Sahra Son MD [address] [address] PCP - General Internal Medicine 10/28/22 documented as of this encounter
--- OUTSIDE RECORDS SUMMARY | 2024-07-25 11:08 | XMS_ITS | Encounter Summary ---
Author Organization [facility] [place], Address [address] [place] [address] Phone Care Team Providers Care Coloring Room Worker Name Role Phone Sahra Son MD Primary Care Provider + Encounter Details Date Type Department Care Team (Late st Contact Info) Description 11/21/2021 Documentation Only [facility] [place], [address] [place] [address] India Davalos [address] [place] [address] Social History Tobacco Use Types [...] on filedocumented in this encounter Care Teams Coloring Room Worker Relationship Specialty Start Date End Date Sahra Son MD [address] [address] PCP - General Internal Medicine 10/28/22 documented as of this encounter
--- OUTSIDE RECORDS SUMMARY | 2024-07-25 11:08 | XMS_ITS | Encounter Summary ---
Author Organization [facility] [place], Address [address] [place] [address] Phone Care Team Providers Care Credit Verification Clerk Name Role Phone Sahra Son MD Primary Care Provider + Encounter Details Date Type Department Care Team (Late st Contact Info) Description 03/23/2024 Documentation Only [facility] [place], [address] [place] [address] India Davalos [address] [place] [address] Social History Tobacco Use Types [...] on filedocumented in this encounter Care Teams Credit Verification Clerk Relationship Specialty Start Date End Date Sahra Son MD [address] [address] PCP - General Internal Medicine 10/28/22 documented as of this encounter
--- OUTSIDE RECORDS SUMMARY | 2024-07-25 11:08 | XMS_ITS | Encounter Summary ---
Author Organization [facility] [place], Address [address] [place] [address] Phone Care Team Providers Care Tax Assistant Name Role Phone Sahra Son MD Primary Care Provider + Encounter Details Date Type Department Care Team ([facility] st Contact Info) Description 04/14/2022 Documentation Only [facility] [place], [address] [place] [address] India Davalos [address] [place] [address] Social History Tobacco Use Types [...] on filedocumented in this encounter Care Teams Tax Assistant Relationship Specialty Start Date End Date Sahra Son MD [address] [address] PCP - General Internal Medicine 10/28/22 documented as of this encounter
--- OUTSIDE RECORDS SUMMARY | 2024-07-25 11:08 | XMS_ITS | Encounter Summary ---
Author Organization [facility] Address [address] [place] [address] Phone Care Team Providers Care Mainframe Applications Developer Name Role Phone Sahra Son MD Primary Care Provider + Encounter Details Date Type Department Care Team (Late st Contact Info) Description 03/03/2024 Orders Only [facility] [place], [address] [place] [address] India Davalos [address] [place] [address] Chronic kidney disease, stage 2 [...] Glucose 152(H) 70 - 99 mg/dL [facility] BUN 16 8 - 27 mg/dL [facility] Creatinine 0.98 0.57 - 1.00 mg/dL [facility] eGFR CKD-EPI CR 2020 64 >59 mL/min/1.7 3 [facility] BUN/Creatinine Ratio 16 12 - 28 [facility] Sodium 137 134 - 144 mmol/L [facility] Potassium 4.8 3.5 - 5.2 mmol/L [facility] Chloride 101 96 - 106 mmol/L [facility] Bicarbonate (CO2) 22 20 - 29 mmol/L [facility] Calcium 8.8 8.7 - 10.3 mg/dL [facility] Albumin 4.0 3.9 - 4.9 g/dL [facility] Phosphorus 4.0 3.0 - 4.3 mg/dL [facility] Blood (Blood, Venous) 03/24/2024 10:37 AM EST 03/24/2024 us Barry Reyes MD LAB BLOOD ORDERABLES Final Re sult [facility] [address] [place] [address] * Ferritin (03/24/2024 10:37 AM EST) Ferritin 37 15 - 150 ng/mL [facility] Blood (Blood, Venous) 03/24/2024 10:37 AM EST 03/24/2024 Barry Reyes MD LAB BLOOD ORDERABLES Final Re sult Performing Organization Address [facility]/ZIP Co de Phone Number [facility] [address] [place] [address] * Iron Panel (Fe, TIBC, TSAT) (03/24/2024 10:37 AM EST) Pathologist [facility] TIBC 293 250 - 450 ug/dL [facility] UIBC 247 118 - 369 ug/dL [facility] Iron 46 27 - 139 ug/dL [facility] Iron Saturation (TSat) 16 15 - 55 % [facility] Blood (Blood, Venous) 03/24/2024 10:37 AM EST 03/24/2024 us Barry Reyes MD LAB BLOOD ORDERABLES Final Re sult [facility] [address] [place] [address] * (ABNORMAL) CBC and Differential (03/24/2024 10:37 AM EST) WBC 6.0 3.4 - 10.8 x10E3/uL [facility] RBC 5.21 3.77 - 5.28 x10E6/uL [facility] Hemoglobin 10.0(L) 11.1 - 15.9 g/dL [facility] Hematocrit 35.3 34.0 - 46.6 % [facility] MCV 68(L) 79 - 97 fL [facility] MCH 19.2(L) 26.6 - 33.0 pg [facility] MCHC 28.3(L) 31.5 - 35.7 g/dL [facility] RDW 19.4(H) 11.7 - 15.4 % [facility] Platelets 186 150 - 450 x10E3/uL [facility] Neutrophils Relative 65 Not Estab. % [facility] Lymphocytes Relative 26 Not Estab. % [facility] Monocytes 6 Not Estab. % [facility] Eosinophils Relative 2 Not Estab. % [facility] Basophils Relative 1 Not Estab. % [facility] Neutrophils Absolute 3.9 1.4 - 7.0 x10E3/uL [facility] Lymphocytes Absolute 1.5 0.7 - 3.1 x10E3/uL [facility] Monocytes Absolute 0.3 0.1 - 0.9 x10E3/uL [facility] Eosinophils Absolute 0.1 0.0 - 0.4 x10E3/uL [facility] Basophils Absolute 0.0 0.0 - 0.2 x10E3/uL [facility] Immature Granulocytes 0 Not Estab. % [facility] Immature Grans (Absolute) 0.0 0.0 - 0.1 x10E3/uL [facility] Blood (Blood, Venous) 03/24/2024 10:37 AM EST 03/24/2024 us Barry Reyes MD LAB BLOOD ORDERABLES Final Re sult [facility] [address] [place] [address] documented in this encounter Visit Diagnoses Diagnosis Chronic kidney disease, stage 2 (mild) Anemia in chronic kidney disease Iron deficiency anemia, not otherwise specified documented in this encounter Care Teams Mainframe Applications Developer Relationship Specialty Start Date End Date Sahra Son MD [address] [place] [address] PCP - General Internal Medicine 10/28/22 documented as of this encounter
--- OUTSIDE RECORDS SUMMARY | 2024-07-25 11:08 | XMS_ITS | Encounter Summary ---
Author Organization [facility] [place], Address [address] [place] [address] Phone Care Team Providers Care Rn Plasma Center Name Role Phone Sahra Son MD Primary Care Provider + Encounter Details Date Type Department Care Team (Late st Contact Info) Description 11/11/2023 Documentation Only [facility] [place], [address] [place] [address] India Davalos [address] [place] [address] Social History Tobacco Use Types [...] filedocumented in this encounter Care Teams Rn Plasma Center Relationship Specialty Start Date End Date Sahra Son MD [address] [address] PCP - General Internal Medicine 10/28/22 documented as of this encounter
--- OUTSIDE RECORDS SUMMARY | 2024-07-25 11:08 | XMS_ITS | Encounter Summary ---
Author Organization [facility] Address [address] [place] [address] Phone Care Team Providers Care Mutuel Department Manager Name Role Phone Sahra Son MD Primary Care Provider + Encounter Details Date Type Department Care Team (Late st Contact Info) Description 02/04/2024 Orders Only [facility] [place], [address] [place] [address] India Davalos [address] [place] [address] Chronic kidney disease, stage 2 [...] Glucose 169(H) 70 - 99 mg/dL [facility] BUN 16 8 - 27 mg/dL [facility] Creatinine 1.00 0.57 - 1.00 mg/dL [facility] eGFR CKD-EPI CR 2020 63 >59 mL/min/1.7 3 [facility] BUN/Creatinine Ratio 16 12 - 28 [facility] Sodium 138 134 - 144 mmol/L [facility] Potassium 4.8 3.5 - 5.2 mmol/L [facility] Chloride 100 96 - 106 mmol/L [facility] Bicarbonate (CO2) 22 20 - 29 mmol/L [facility] Calcium 9.1 8.7 - 10.3 mg/dL [facility] Albumin 4.1 3.9 - 4.9 g/dL [facility] Phosphorus 4.2 3.0 - 4.3 mg/dL [facility] Blood (Blood, Venous) 02/22/2024 8:29 AM EDT 02/22/2024 us Barry Reyes MD LAB BLOOD ORDERABLES Final Re sult [facility] [address] [place] [address] * Ferritin (02/22/2024 8:29 AM EDT) Pathologist [facility] Ferritin 47 15 - 150 ng/mL [facility] Blood (Blood, Venous) 02/22/2024 8:29 AM EDT 02/22/2024 Barry Reyes MD LAB BLOOD ORDERABLES Final Re sult Performing Organization Address City/[facility]/ZIP Co de Phone Number [facility] [address] [place] [address] * (ABNORMAL) Iron Panel (Fe, TIBC, TSAT) (02/22/2024 8:29 AM EDT) Pathologist [facility] Iron 39 27 - 139 ug/dL [facility] TIBC 310 250 - 450 ug/dL [facility] UIBC 271 118 - 369 ug/dL [facility] Iron Saturation (TSat) 13(L) 15 - 55 % [facility] Blood (Blood, Venous) 02/22/2024 8:29 AM EDT 02/22/2024 Barry Reyes MD LAB BLOOD ORDERABLES Final Re sult [facility] [address] [place] [address] * (ABNORMAL) CBC and Differential (02/22/2024 8:29 AM EDT) Pathologist [facility] WBC 5.9 3.4 - 10.8 x10E3/uL [facility] RBC 5.33(H) 3.77 - 5.28 x10E6/uL [facility] Hemoglobin 10.3(L) 11.1 - 15.9 g/dL [facility] Hematocrit 35.1 34.0 - 46.6 % [facility] MCV 66(L) 79 - 97 fL [facility] MCH 19.3(L) 26.6 - 33.0 pg [facility] MCHC 29.3(L) 31.5 - 35.7 g/dL [facility] RDW 19.3(H) 11.7 - 15.4 % [facility] Platelets 174 150 - 450 x10E3/uL [facility] Neutrophils Relative 71 Not Estab. % [facility] Lymphocytes Relative 21 Not Estab. % [facility] Monocytes 5 Not Estab. % [facility] Eosinophils Relative 1 Not Estab. % [facility] Basophils Relative 1 Not Estab. % [facility] Neutrophils Absolute 4.2 1.4 - 7.0 x10E3/uL [facility] Lymphocytes Absolute 1.3 0.7 - 3.1 x10E3/uL [facility] Monocytes Absolute 0.3 0.1 - 0.9 x10E3/uL [facility] Eosinophils Absolute 0.1 0.0 - 0.4 x10E3/uL [facility] Basophils Absolute 0.0 0.0 - 0.2 x10E3/uL [facility] Immature Granulocytes 1 Not Estab. % [facility] Immature Grans (Absolute) 0.0 0.0 - 0.1 x10E3/uL [facility] Blood (Blood, Venous) 02/22/2024 8:29 AM EDT 02/22/2024 us Barry Reyes MD LAB BLOOD ORDERABLES Final Re sult [facility] [address] [place] [address] documented in this encounter Visit Diagnoses Diagnosis Chronic kidney disease, stage 2 (mild) Anemia in chronic kidney disease Iron deficiency anemia, not otherwise specified documented in this encounter Care Teams Mutuel Department Manager Relationship Specialty Start Date End Date Sahra Son MD [address] [place] [address] PCP - General Internal Medicine 10/28/22 documented as of this encounter
--- OUTSIDE RECORDS SUMMARY | 2024-07-25 11:08 | XMS_ITS | Encounter Summary ---
Author Organization [facility] [place], Address [address] [place] [address] Phone Care Team Providers Care Engineering Specialist Name Role Phone Sahra Son MD Primary Care Provider + Encounter Details Date Type Department Care Team (Late st Contact Info) Description 12/23/2021 Documentation Only [facility] [place], [address] [place] [address] Juan Jose Li MD [address] [facility] [place] [address] Social History Tobacco Use Types [...] End Date Sahra Son MD [address] [address] PCP - General Internal Medicine 10/28/22 documented as of this encounter
--- OUTSIDE RECORDS SUMMARY | 2024-07-25 11:08 | XMS_ITS | Encounter Summary ---
Author Organization [facility] [place], Address [address] [place] [address] Phone Care Team Providers Care Agronomy Instructor Name Role Phone Sahra Son MD Primary Care Provider + Encounter Details Date Type Department Care Team (Late st Contact Info) Description 03/22/2024 Documentation Only [facility] [place], [address] [place] [address] India Davalos [address] [place] [address] Social History Tobacco Use Types [...] on filedocumented in this encounter Care Teams Agronomy Instructor Relationship Specialty Start Date End Date Sahra Son MD [address] [address] PCP - General Internal Medicine 10/28/22 documented as of this encounter
--- OUTSIDE RECORDS SUMMARY | 2024-07-25 11:08 | XMS_ITS | Encounter Summary ---
Author Organization [facility] [place], Address [address] [place] [address] Phone Care Team Providers Care Linen Room Houseperson Name Role Phone Sahra Son MD Primary Care Provider + Encounter Details Date Type Department Care Team ([facility] st Contact Info) Description 04/08/2022 Documentation Only [facility] [place], [address] [place] [address] India Davalos [address] [place] [address] Social History Tobacco Use Types [...] on filedocumented in this encounter Care Teams Linen Room Houseperson Relationship Specialty Start Date End Date Sahra Son MD [address] [address] PCP - General Internal Medicine 10/28/22 documented as of this encounter
--- OUTSIDE RECORDS SUMMARY | 2024-07-25 11:08 | XMS_ITS | Encounter Summary ---
Author Organization [facility] [place], Address [address] [place] [address] Phone Care Team Providers Care Wedding Day Coordinator Name Role Phone Sahra Son MD Primary Care Provider + Encounter Details Date Type Department Care Team (Late st Contact Info) Description 06/30/2020 Orders Only [facility] [place] - [facility] [address] [place] [address] Carol Whelan [address] [place] [address] Iron deficiency anemia, not otherwise [...] (mild) documented in this encounter Care Teams Wedding Day Coordinator Relationship Specialty Start Date End Date Sahra Son MD [address] [address] PCP - General Internal Medicine 10/28/22 documented as of this encounter
--- OUTSIDE RECORDS SUMMARY | 2024-07-25 11:08 | XMS_ITS | Encounter Summary ---
Author Organization [facility] [place], Address [address] [place] [address] Phone Care Team Providers Care Hardware Design Engineer Name Role Phone Sahra Son MD Primary Care Provider + Encounter Details Date Type Department Care Team (Late st Contact Info) Description 11/11/2023 Documentation Only [facility] [place], [address] [place] [address] India Davalos [address] [place] [address] Social History Tobacco Use Types [...] on filedocumented in this encounter Care Teams Hardware Design Engineer Relationship Specialty Start Date End Date Sahra Son MD [address] [address] PCP - General Internal Medicine 10/28/22 documented as of this encounter
--- OUTSIDE RECORDS SUMMARY | 2024-07-25 11:08 | XMS_ITS | Encounter Summary ---
Author Organization [facility] [place], Address [address] [place] [address] Phone Care Team Providers Care Chlorine Plant Operator Name Role Phone Sahra Son MD Primary Care Provider + Encounter Details Date Type Department Care Team (Late st Contact Info) Description 06/09/2024 Orders Only [facility] [place], [address] [place] [address] Indai Davalos [address] [place] [address] Anemia in chronic kidney disease; [...] (mild) documented in this encounter Care Teams Chlorine Plant Operator Relationship Specialty Start Date End Date Sahra Son MD [address] [address] PCP - General Internal Medicine 10/28/22 documented as of this encounter
--- OUTSIDE RECORDS SUMMARY | 2024-07-25 11:08 | XMS_ITS | Encounter Summary ---
Author Organization [facility] [place], Address [address] [place] [address] Phone Care Team Providers Care Aquatics Instructor Name Role Phone Sahra Son MD Primary Care Provider + Encounter Details Date Type Department Care Team (Late st Contact Info) Description 06/22/2022 Documentation Only [facility] [place], [address] [place] [address] India Davalos [address] [place] [address] Social History Tobacco Use Types [...] on filedocumented in this encounter Care Teams Aquatics Instructor Relationship Specialty Start Date End Date Sahra Son MD [address] [address] PCP - General Internal Medicine 10/28/22 documented as of this encounter
--- OUTSIDE RECORDS SUMMARY | 2024-07-25 11:08 | XMS_ITS | Encounter Summary ---
Author Organization [facility] [place], Address [address] [place] [address] Phone Care Team Providers Care Organ Builder Name Role Phone Sahra Son MD Primary Care Provider + Encounter Details Date Type Department Care Team (Late st Contact Info) Description 12/31/2023 Documentation Only [facility] [place], [address] [place] [address] India Davalos [address] [place] [address] Social History Tobacco Use Types [...] on filedocumented in this encounter Care Teams Organ Builder Relationship Specialty Start Date End Date Sahra Son MD [address] [address] PCP - General Internal Medicine 10/28/22 documented as of this encounter
--- OUTSIDE RECORDS SUMMARY | 2024-07-25 11:08 | XMS_ITS | Encounter Summary ---
Author Organization [facility] [place], Address [address] [place] [address] Phone Care Team Providers Care Commissary Officer Name Role Phone Sahra Son MD Primary Care Provider + Encounter Details Date Type Department Care Team (Late st Contact Info) Description 08/11/2022 Documentation Only [facility] [place], [address] [place] [address] India Davalos [address] [place] [address] Social History Tobacco Use Types [...] on filedocumented in this encounter Care Teams Commissary Officer Relationship Specialty Start Date End Date Sahra Son MD [address] [address] PCP - General Internal Medicine 10/28/22 documented as of this encounter
--- OUTSIDE RECORDS SUMMARY | 2024-07-25 11:08 | XMS_ITS | Encounter Summary ---
Author Organization [facility] [place], Address [address] [place] [address] Phone Care Team Providers Care County Commissioner Name Role Phone Sahra Son MD Primary Care Provider + Encounter Details Date Type Department Care Team (Late st Contact Info) Description 08/11/2022 Documentation Only [facility] [place], [address] [place] [address] India Davalos [address] [place] [address] Social History Tobacco Use Types [...] on filedocumented in this encounter Care Teams County Commissioner Relationship Specialty Start Date End Date Sahra Son MD [address] [address] PCP - General Internal Medicine 10/28/22 documented as of this encounter
--- OUTSIDE RECORDS SUMMARY | 2024-07-25 11:08 | XMS_ITS | Encounter Summary ---
Author Organization [facility] [place], Address [address] [place] [address] Phone Care Team Providers Care Salesperson Recreational Vehicles Name Role Phone Sahra Son MD Primary Care Provider + Encounter Details Date Type Department Care Team (Late st Contact Info) Description 11/11/2023 Documentation Only [facility] [place], [address] [place] [address] India Davalos [address] [place] [address] Social History Tobacco Use Types [...] on filedocumented in this encounter Care Teams Salesperson Recreational Vehicles Relationship Specialty Start Date End Date Sahra Son MD [address] [address] PCP - General Internal Medicine 10/28/22 documented as of this encounter
--- OUTSIDE RECORDS SUMMARY | 2024-07-25 11:08 | XMS_ITS | Encounter Summary ---
Author Organization [facility] [place], Address [address] [place] [address] Phone Care Team Providers Care Manager Management Name Role Phone Sahra Son MD Primary Care Provider + Encounter Details Date Type Department Care Team (Late st Contact Info) Description 11/11/2023 Documentation Only [facility] [place], [address] [place] [address] India Davalos [address] [place] [address] Social History Tobacco Use Types [...] filedocumented in this encounter Care Teams Manager Management Relationship Specialty Start Date End Date Sahra Son MD [address] [address] PCP - General Internal Medicine 10/28/22 documented as of this encounter
--- OUTSIDE RECORDS SUMMARY | 2024-07-25 11:08 | XMS_ITS | Encounter Summary ---
Author Organization [facility], Address [address] [place] [address] Phone Care Team Providers Care Second Baller Name Role Phone Sahra Son MD Primary Care Provider + Encounter Details Date Type Department Care Team (Late st Contact Info) Description 07/07/2024 Orders Only [facility], [address] [place] [address] India Davalos [address] [place] [address] Anemia in chronic kidney disease; [...] (mild) documented in this encounter Care Teams Second Baller Relationship Specialty Start Date End Date Sahra Son MD [address] [address] PCP - General Internal Medicine 10/28/22 documented as of this encounter
--- OUTSIDE RECORDS SUMMARY | 2024-07-25 11:09 | XMS_ITS | Encounter Summary ---
Author Organization [facility], Address [address] [place] [address] Phone Care Team Providers Care Senior Principal Name Role Phone Sahra Son MD Primary Care Provider + Encounter Details Date Type Department Care Team (Late st Contact Info) Description 07/03/2021 Documentation Only [facility], [address] [place] [address] Juan Jose Li MD [address] [facility] [address] [address] Social History Tobacco Use Types [...] filedocumented in this encounter Care Teams Senior Principal Relationship Specialty Start Date End Date Sahra Son MD [address] [address] PCP - General Internal Medicine 10/28/22 documented as of this encounter
--- OUTSIDE RECORDS SUMMARY | 2024-07-25 11:09 | XMS_ITS | Encounter Summary ---
Author Organization [facility], Address [address] [place] [address] Phone Care Team Providers Care Hospice Administrator Name Role Phone Sahra Son MD Primary Care Provider + Encounter Details Date Type Department Care Team (Late st Contact Info) Description 01/29/2023 Documentation Only [facility], [address] [place] [address] India Davalos [address] [place] [address] Social History Tobacco Use Types [...] on filedocumented in this encounter Care Teams Hospice Administrator Relationship Specialty Start Date End Date Sahra Son MD [address] [address] PCP - General Internal Medicine 10/28/22 documented as of this encounter
--- OUTSIDE RECORDS SUMMARY | 2024-07-25 11:09 | XMS_ITS | Encounter Summary ---
Author Organization [facility], Address [address] [place] [address] Phone Care Team Providers Care Oracle E Business Developer Name Role Phone Sahra Son MD Primary Care Provider + Encounter Details Date Type Department Care Team (Late st Contact Info) Description 08/22/2021 Documentation Only [facility], [address] [place] [address] India Davalos [address] [place] [address] Social History Tobacco Use Types [...] on filedocumented in this encounter Care Teams Oracle E Business Developer Relationship Specialty Start Date End Date Sahra Son MD [address] [address] PCP - General Internal Medicine 10/28/22 documented as of this encounter
--- OUTSIDE RECORDS SUMMARY | 2024-07-25 11:09 | XMS_ITS | Clinical Summary ---
Author Organization [facility] Address [address] [place] [address] Care Team Providers Care Bog Cutter Name Role Phone Geovani Natalie Carmelo ESPARZA Primary Care Provider [phone] Allergies Active Allergy Reactions Criticality Noted Date [...] 1 10/04/2016 Active ergocalciferol (VITAMIN D2) capsule 62679 units TK ONE C PO TWICE A [...] by mouth daily. 0 Active calcium carbonate (OS-LAEXEY) 1250 (500 Ca) MG tablet 0 01/23/2020 Active cloNIDine (CATAPRES) tablet 0.1 mg Take 1 tablet (0.1 mg total) by mouth 2 (two) times a day. 0 04/27/2022 Active pancrelipase, Bjl-Gmsn-Ayss, (Creon) [address] units CPEP TK ONE C PO TID [...] age to complete this topic Care Teams Bog Cutter Relationship Specialty Start Date End Date Natalie Olivo APRN [address] [place] [address] PCP - General Coffee Brewer 04/30/22
--- OUTSIDE RECORDS SUMMARY | 2024-07-25 11:09 | XMS_ITS | Encounter Summary ---
Author Organization [facility], Address [address] [place] [address] Phone Care Team Providers Care Condenser Tube Tender Name Role Phone Sahra Son MD Primary Care Provider + Encounter Details Date Type Department Care Team (Late st Contact Info) Description 08/05/2023 Documentation Only [facility], [address] [place] [place] [address] India Davalos [address] [place] [address] Social History Tobacco Use Types [...] on filedocumented in this encounter Care Teams Condenser Tube Tender Relationship Specialty Start Date End Date Sahra Son MD [address] [address] PCP - General Internal Medicine 10/28/22 documented as of this encounter
--- OUTSIDE RECORDS SUMMARY | 2024-07-25 11:09 | XMS_ITS | Encounter Summary ---
Author Organization [facility], Address [address] [place] [address] Phone Care Team Providers Care User Support Analyst Name Role Phone Sahra Son MD Primary Care Provider + Encounter Details Date Type Department Care Team (Late st Contact Info) Description 11/19/2023 Documentation Only [facility], [address] [place] [address] India Davaols [address] [place] [address] Social History Tobacco Use [...] on filedocumented in this encounter Care Teams User Support Analyst Relationship Specialty Start Date End Date Sahra Son MD [address] [address] PCP - General Internal Medicine 10/28/22 documented as of this encounter
--- OUTSIDE RECORDS SUMMARY | 2024-07-25 11:09 | XMS_ITS | Encounter Summary ---
Author Organization [facility], Address [address] [place] [address] Phone Care Team Providers Care Stock Turner Name Role Phone Sahra Son MD Primary Care Provider + Encounter Details Date Type Department Care Team (Late st Contact Info) Description 07/21/2024 Orders Only [facility], [address] [place] [address] India Davalos [address] [place] [address] Chronic kidney disease, stage 2 [...] specified documented in this encounter Care Teams Stock Turner Relationship Specialty Start Date End Date Sahra Son MD [address] [address] PCP - General Internal Medicine 10/28/22 documented as of this encounter
--- OUTSIDE RECORDS SUMMARY | 2024-07-25 11:09 | XMS_ITS | Encounter Summary ---
Author Organization [facility], Address [address] [place] [address] Phone Care Team Providers Care Traveling Buyer Name Role Phone Sahra Son MD Primary Care Provider + Encounter Details Date Type Department Care Team (Late st Contact Info) Description 08/09/2023 Documentation Only [facility], [address] [place] [address] India Davalos [address] [place], [place] [...] on filedocumented in this encounter Care Teams Traveling Buyer Relationship Specialty Start Date End Date Sahra Son MD [address] [address] PCP - General Internal Medicine 10/28/22 documented as of this encounter
--- OUTSIDE RECORDS SUMMARY | 2024-07-25 11:09 | XMS_ITS | Encounter Summary ---
Author Organization [facility], Address [address] [place] [address] Phone Care Team Providers Care Business Services Associate Name Role Phone Sahra Son MD Primary Care Provider + Encounter Details Date Type Department Care Team (Late st Contact Info) Description 01/06/2022 Documentation Only [facility], [address] [address] [facility] [place] [address] Juan Jose Li MD [address] [facility] [place] [address] Social History Tobacco Use Types [...] filedocumented in this encounter Care Teams Business Services Associate Relationship Specialty Start Date End Date Sahra Son MD [address] [address] PCP - General Internal Medicine 10/28/22 documented as of this encounter
--- OUTSIDE RECORDS SUMMARY | 2024-07-25 11:09 | XMS_ITS | Encounter Summary ---
Author Organization [facility], Address [address] [place] [address] Phone Care Team Providers Care Top Lift Cutter Name Role Phone Sahra Son MD Primary Care Provider + Encounter Details Date Type Department Care Team (Late st Contact Info) Description 02/01/2023 Documentation Only [facility], [address] [place] [address] India Davalos [address] [place] [address] Social History Tobacco Use [...] on filedocumented in this encounter Care Teams Top Lift Cutter Relationship Specialty Start Date End Date Sahra Son MD [address] [address] PCP - General Internal Medicine 10/28/22 documented as of this encounter
--- OUTSIDE RECORDS SUMMARY | 2024-07-25 11:09 | XMS_ITS | Encounter Summary ---
Author Organization [facility], Address [address] [place] [address] Phone Care Team Providers Care Digital Marketing Associate Name Role Phone Sahra Son MD Primary Care Provider + Encounter Details Date Type Department Care Team (Late st Contact Info) Description 03/11/2023 Documentation Only [facility], [address] [place] [address] India Davalos [address] [place] [address] Social History Tobacco Use Types [...] filedocumented in this encounter Care Teams Digital Marketing Associate Relationship Specialty Start Date End Date Sahra Son MD [address] [address] PCP - General Internal Medicine 10/28/22 documented as of this encounter
--- OUTSIDE RECORDS SUMMARY | 2024-07-25 11:09 | XMS_ITS | Encounter Summary ---
Author Organization [facility], Address [address] [place] [address] Phone Care Team Providers Care Electrical System Specialist Name Role Phone Sahra Son MD Primary Care Provider + Encounter Details Date Type Department Care Team (Late st Contact Info) Description 10/26/2022 Documentation Only [facility], [address] [place] [address] India Davalos [address] [place] [address] Social History Tobacco Use Types [...] on filedocumented in this encounter Care Teams Electrical System Specialist Relationship Specialty Start Date End Date Sahra Son MD [address] [address] PCP - General Internal Medicine 10/28/22 documented as of this encounter
--- OUTSIDE RECORDS SUMMARY | 2024-07-25 11:09 | XMS_ITS | Encounter Summary ---
Author Organization [facility], Address [address] [place] [address] Phone Care Team Providers Care Trashman Name Role Phone Sahra Son MD Primary Care Provider + Encounter Details Date Type Department Care Team (Late st Contact Info) Description 06/09/2023 Documentation Only [facility], [address] [place] [address] India Davalos [address] [place] [address] Social History Tobacco Use Types [...] on filedocumented in this encounter Care Teams Trashman Relationship Specialty Start Date End Date Sahra Son MD [address] [address] PCP - General Internal Medicine 10/28/22 documented as of this encounter
--- OUTSIDE RECORDS SUMMARY | 2024-07-25 11:09 | XMS_ITS | Encounter Summary ---
Author Organization [facility], Address [address] [place] [address] Phone Care Team Providers Care Tilt Wall Supervisor Name Role Phone Sahra Son MD Primary Care Provider + Encounter Details Date Type Department Care Team (Late st Contact Info) Description 07/16/2023 Documentation Only [facility], [address] [place] [address] India Davalos [address] [place] [address] Social History Tobacco Use Types [...] on filedocumented in this encounter Care Teams Tilt Wall Supervisor Relationship Specialty Start Date End Date Sahra Son MD [address] [address] PCP - General Internal Medicine 10/28/22 documented as of this encounter
--- OUTSIDE RECORDS SUMMARY | 2024-07-25 11:09 | XMS_ITS | Encounter Summary ---
Author Organization [facility], Address [address] [place] [address] Phone Care Team Providers Care Racing Board Marker Name Role Phone Sahra Son MD Primary Care Provider + Encounter Details Date Type Department Care Team (Late st Contact Info) Description 01/29/2023 Documentation Only [facility], [address] [place] [address] India Davalos [address] [place] [address] Social History Tobacco Use Types [...] on filedocumented in this encounter Care Teams Racing Board Marker Relationship Specialty Start Date End Date Sahra Son MD [address] [address] PCP - General Internal Medicine 10/28/22 documented as of this encounter
--- OUTSIDE RECORDS SUMMARY | 2024-07-25 11:09 | XMS_ITS | Encounter Summary ---
Author Organization [facility], Address [address] [place] [address] Phone Care Team Providers Care Care Team Coordinator Scheduler Name Role Phone Sahra Son MD Primary Care Provider + Encounter Details Date Type Department Care Team (Late st Contact Info) Description 06/25/2021 Documentation Only [facility], [address] [place] [address] India Davalos [address] [place] [address] Social History Tobacco Use Types [...] on filedocumented in this encounter Care Teams Care Team Coordinator Scheduler Relationship Specialty Start Date End Date Sahra Son MD [address] [address] PCP - General Internal Medicine 10/28/22 documented as of this encounter
--- OUTSIDE RECORDS SUMMARY | 2024-07-25 11:09 | XMS_ITS | Encounter Summary ---
Author Organization [facility], Address [address] [place] [address] Phone Care Team Providers Care Classification Clerk Name Role Phone Sahra Son MD Primary Care Provider + Encounter Details Date Type Department Care Team (Late st Contact Info) Description 11/30/2023 Documentation Only [facility], [address] [place] [address] India Davalos [address] [place] [address] Social History Tobacco Use Types [...] on filedocumented in this encounter Care Teams Classification Clerk Relationship Specialty Start Date End Date Sahra Son MD [address] [address] PCP - General Internal Medicine 10/28/22 documented as of this encounter
--- OUTSIDE RECORDS SUMMARY | 2024-07-25 11:09 | XMS_ITS | Encounter Summary ---
Author Organization [facility], Address [address] [place] [address] Phone Care Team Providers Care Window Machine Operator Name Role Phone Sahra Son MD Primary Care Provider + Encounter Details Date Type Department Care Team (Late st Contact Info) Description 03/11/2023 Documentation Only [facility], [address] [place] [address] India Davalos [address] [place] [address] Social History Tobacco Use Types [...] on filedocumented in this encounter Care Teams Window Machine Operator Relationship Specialty Start Date End Date Sahra Son MD [address] [address] PCP - General Internal Medicine 10/28/22 documented as of this encounter
--- OUTSIDE RECORDS SUMMARY | 2024-07-25 11:09 | XMS_ITS | Encounter Summary ---
Author Organization [facility], Address [address] [place] [address] Phone Care Team Providers Care Apartment Community Assistant Manager Name Role Phone Sahra Son MD Primary Care Provider + Encounter Details Date Type Department Care Team (Late st Contact Info) Description 03/11/2023 Documentation Only [facility], [address] [place] [address] India Davalos [address] [place] [address] Social History Tobacco Use Types [...] on filedocumented in this encounter Care Teams Apartment Community Assistant Manager Relationship Specialty Start Date End Date Sahra Son MD [address] [address] PCP - General Internal Medicine 10/28/22 documented as of this encounter
--- OUTSIDE RECORDS SUMMARY | 2024-07-25 11:09 | XMS_ITS | Encounter Summary ---
Author Organization [facility], Address [address] [place] [address] Phone Care Team Providers Care Net Developer Architect Name Role Phone Sahra Son MD Primary Care Provider + Encounter Details Date Type Department Care Team (Late st Contact Info) Description 12/24/2022 Documentation Only [facility], [address] [place] [address] Carol Whelan [address] [place] [address] Social History Tobacco Use Types [...] on filedocumented in this encounter Care Teams Net Developer Architect Relationship Specialty Start Date End Date Sahra Son MD [address] [address] PCP - General Internal Medicine 10/28/22 documented as of this encounter
--- OUTSIDE RECORDS SUMMARY | 2024-07-25 11:09 | XMS_ITS | Encounter Summary ---
Author Organization [facility], Address [address] [place] [address] Phone Care Team Providers Care Director Of Valuation Name Role Phone Sahra Son MD Primary Care Provider + Encounter Details Date Type Department Care Team (Late st Contact Info) Description 10/30/2022 Documentation Only [facility], [address] [place] [address] India Davalos [address] [place] [address] Social History Tobacco Use Types [...] in this encounter Care Teams Director Of Valuation Relationship Specialty Start Date End Date Sahra Son MD [address] [address] PCP - General Internal Medicine 10/28/22 documented as of this encounter
--- OUTSIDE RECORDS SUMMARY | 2024-07-25 11:09 | XMS_ITS | Encounter Summary ---
Author Organization [facility] Address [address] [place] [address] Phone Care Team Providers Care Meat Team Lead Name Role Phone Sahra Son MD Primary Care Provider + Encounter Details Date Type Department Care Team (Late st Contact Info) Description 05/17/2023 Orders Only [facility] [place], [address] [place] [phone] Arlnee Alston PA Chronic kidney disease, stage 2 [...] (Fe, TIBC, TSAT) (06/08/2023 8:36 AM EST) [facility] Iron 49 (30-160) MCG/DL [facility] UIBC 246 (110-370) MCG/DL [facility] TIBC 295 (140-530) MCG/DL [facility] Iron Saturation (TSat) 17(L) (20-55) % [facility] Comment: Testing performed or reported by [facility], a Service of [facility], [address] [place] [address] Luis A Bailey MD, Airplane Technician TASNEEM# [id number] Blood (Blood, Venous) 06/08/2023 8:36 AM EST 06/08/2023 8:39 AM EST Arlene CARTER LAB BLOOD ORDERABLES Final Re sult Performing Organization Address [facility]/ZIP Co de Phone Number [facility] * Vitamin D 25 hydroxy (06/08/2023 8:36 AM EST) Vitamin D, 25-Hydroxy 24.8 (20-50) NG/ML [facility] Comment: Testing performed or reported by [facility], a Service of [facility], [address] [place] [id number] Luis A Bailey MD, Airplane Technician CLIA# [id number] Blood (Blood, Venous) 06/08/2023 8:36 AM EST 06/08/2023 8:39 AM EST Arlene CARTER LAB BLOOD ORDERABLES Final Re sult Performing Organization Address [facility] Co de Phone Number [facility] * (ABNORMAL) Renal function panel (06/08/2023 8:36 AM EST) Glucose 166(H) (70-99) MG/DL [facility] BUN 19 (8-23) MG/DL [facility] Creatinine 1.0 (0.5-1.0) MG/DL [facility] Sodium 138 (133-145) MMOL/L [facility] Potassium 4.9 (3.6-5.2) MMOL/L [facility] Chloride 101 (98-107) MMOL/L [facility] Bicarbonate (CO2) 27 (22-29) MMOL/L [facility] Anion Gap 10 (4-17) [facility] Albumin 4.2 (3.4-4.8) GM/DL [facility] Calcium 9.1 (8.6-10.5) MG/DL [facility] Phosphorus, Serum 3.4 (2.5-4.5) MG/DL [facility] Est GFR Non 66 ML/MIN/1.7 3 M2 [facility] Comment: Creatinine based estimated glomerular filtration (eGFR) in adults is calculated using the National Kidney Foundation recommended 2020 CKD-EPI equation. Estimates GFR from serum creatinine, age and sex. Testing performed or reported by [facility], a Service of [facility], [address] [place] [address] Luis A Bailey MD, Airplane Technician CLIA# [id number] Blood (Blood, Venous) 06/08/2023 8:36 AM EST 06/08/2023 8:39 AM EST Arlene Alston [place] LAB BLOOD ORDERABLES Final Re sult Performing Organization Address [facility] Co de Phone Number [facility] * Magnesium (06/08/2023 8:36 AM EST) Magnesium 2.1 (1.6-2.3) mg/dL [facility] Comment: Testing performed or reported by [facility], a Service of [facility], [address] [place] [address] Luis A Bailey MD, Airplane Technician [facility]# [id number] Blood (Blood, Venous) 06/08/2023 8:36 AM EST 06/08/2023 8:39 AM EST Arlene Alston [place] LAB BLOOD ORDERABLES Final Re sult Performing Organization Address [facility] de Phone Number [facility] * (ABNORMAL) Hemoglobin A1c (06/08/2023 8:36 AM EST) Hemoglobin A1C 7.2(H) (4.0-5.6) % [facility] Comment: MONITORING: In known diabetic patients, hemoglobin A1c targets should be discussed with health care provider. DIAGNOSTIC USE: ??The [place] Diabetes Association (ADA) and the World Health [...] Supplement 1 Testing performed or reported by [facility], a Service of [facility], [address] [place] [address] Luis A Bailey MD, Airplane Technician [facility]# [id number] Blood (Blood, Venous) 06/08/2023 8:36 AM EST 06/08/2023 8:38 AM EST us Arlene CARTER LAB BLOOD ORDERABLES Final Re sult [facility] * (ABNORMAL) CBC and differential (06/08/2023 8:36 AM EST) White Blood Cells 5.2 (4.0-11.0 ) K/MM3 [facility] RBC 5.08 (4.20-5.4 0) M/MM3 [facility] Hgb 10.1(L) (11.7-15. 5) GM/DL [facility] Hematocrit 32.9(L) (35.7-45. 8) % [facility] MCV 64.8(L) (80.0-100 .0) FL [facility] MCH 19.9(L) (27.0-34. 0) PG [facility] MCHC 30.7(L) (33.0-37. 0) g/dL [facility] Platelets 191 (150-460) K/MM3 [facility] RDW-SD 40.3 (<47.0) FL [facility] MPV NOT MEASURED (9.4-12.4 ) FL [facility] nRBC Count 0.0 #/100 WBC'S [facility] NRBC Absolute 0.0 K/MM3 [facility] Neutrophils [...] % [facility] Basophils Relative 0.8 (0-2) % [facility] Immature Granulocytes 0.4 % [facility] Comment: Testing performed or reported by [facility], a Service of [facility], [address] [place] [address] Luis A Bailey MD, Airplane Technician [facility]# [id number] Blood (Blood, Venous) 06/08/2023 8:36 AM EST 06/08/2023 8:38 AM EST us Arlene CARTER LAB BLOOD ORDERABLES Final Re sult [facility] documented in this encounter Visit Diagnoses Diagnosis Chronic kidney disease, stage 2 (mild) Essential (primary) hypertension Anemia in chronic kidney disease Antiphospholipid syndrome (HCC) Type 2 diabetes mellitus, not otherwise specified (HCC) Bleeding hemorrhoids documented in this encounter Care Teams Meat Team Lead Relationship Specialty Start Date End Date Sahra Son MD [address] [place] [address] PCP - General Internal Medicine 10/28/22 documented as of this encounter
--- OUTSIDE RECORDS SUMMARY | 2024-07-25 11:09 | XMS_ITS | Encounter Summary ---
Author Organization [facility] Address [address] [place] [address] Phone Care Team Providers Care Balance Sheet Analyst Name Role Phone Sahra Son MD Primary Care Provider + Encounter Details Date Type Department Care Team (Late st Contact Info) Description 05/26/2024 Orders Only [facility] [place], [address] [place] [address] India Davaols [address] [place] [address] Chronic kidney disease, stage 2 [...] Glucose 168(H) 70 - 99 mg/dL [facility] BUN 17 8 - 27 mg/dL [facility] Creatinine 1.09(H) 0.57 - 1.00 mg/dL [facility] eGFR CKD-EPI CR 2020 57(L) >59 mL/min/1.7 3 [facility] BUN/Creatinine Ratio 16 12 - 28 [facility] Sodium 137 134 - 144 mmol/L [facility] Potassium 4.8 3.5 - 5.2 mmol/L [facility] Chloride 99 96 - 106 mmol/L [facility] Bicarbonate (CO2) 23 20 - 29 mmol/L [facility] Calcium 9.0 8.7 - 10.3 mg/dL [facility] Albumin 4.2 3.9 - 4.9 g/dL [facility] Phosphorus 4.4(H) 3.0 - 4.3 mg/dL [facility] Blood (Blood, Venous) 06/07/2024 11:53 AM EST 06/07/2024 us Barry Reyes MD LAB BLOOD ORDERABLES Final Re sult [facility] [address] [place] [address] * Ferritin (06/07/2024 11:53 AM EST) Pathologist [facility] Ferritin 102 15 - 150 ng/mL [facility] Blood (Blood, Venous) 06/07/2024 11:53 AM EST 06/07/2024 Barry Reyes MD LAB BLOOD ORDERABLES Final Re sult Performing Organization Address City/[facility] Co de Phone Number [facility] [address] [place] [address] * Iron Panel (Fe, TIBC, TSAT) (06/07/2024 11:53 AM EST) Pathologist [facility] TIBC 262 250 - 450 ug/dL [facility] UIBC 205 118 - 369 ug/dL [facility] Iron 57 27 - 139 ug/dL [facility] Iron Saturation (TSat) 22 15 - 55 % [facility] Blood (Blood, Venous) 06/07/2024 11:53 AM EST 06/07/2024 Barry Reyes MD LAB BLOOD ORDERABLES Final Re sult [facility] [address] [place] [address] * (ABNORMAL) CBC and Differential (06/07/2024 11:53 AM EST) Pathologist [facility] WBC 5.5 3.4 - 10.8 x10E3/uL [facility] RBC 5.76(H) 3.77 - 5.28 x10E6/uL [facility] Hemoglobin 11.1 11.1 - 15.9 g/dL [facility] Hematocrit 38.4 34.0 - 46.6 % [facility] MCV 67(L) 79 - 97 fL [facility] MCH 19.3(L) 26.6 - 33.0 pg [facility] MCHC 28.9(L) 31.5 - 35.7 g/dL [facility] RDW 18.8(H) 11.7 - 15.4 % [facility] Platelets 162 150 - 450 x10E3/uL [facility] Neutrophils Relative 59 Not Estab. % [facility] Lymphocytes Relative 31 Not Estab. % [facility] Monocytes 6 Not Estab. % [facility] Eosinophils Relative 2 Not Estab. % [facility] Basophils Relative 1 Not Estab. % [facility] Neutrophils Absolute 3.3 1.4 - 7.0 x10E3/uL [facility] Lymphocytes Absolute 1.7 0.7 - 3.1 x10E3/uL [facility] Monocytes Absolute 0.3 0.1 - 0.9 x10E3/uL [facility] Eosinophils Absolute 0.1 0.0 - 0.4 x10E3/uL [facility] Basophils Absolute 0.0 0.0 - 0.2 x10E3/uL [facility] Immature Granulocytes 1 Not Estab. % [facility] Immature Grans (Absolute) 0.0 0.0 - 0.1 x10E3/uL [facility] Blood (Blood, Venous) 06/07/2024 11:53 AM EST 06/07/2024 us Barry Reyes MD LAB BLOOD ORDERABLES Final Re sult [facility] [address] [place] [address] documented in this encounter Visit Diagnoses Diagnosis Chronic kidney disease, stage 2 (mild) Anemia in chronic kidney disease Iron deficiency anemia, not otherwise specified documented in this encounter Care Teams Balance Sheet Analyst Relationship Specialty Start Date End Date Sahra Son MD [address] [place] [address] PCP - General Internal Medicine 10/28/22 documented as of this encounter
--- OUTSIDE RECORDS SUMMARY | 2024-07-25 11:09 | XMS_ITS | Encounter Summary ---
Author Organization [facility] [place], Address [address] [place] [address] Phone Care Team Providers Care Grass Farmer Name Role Phone Sahra Son MD Primary Care Provider + Encounter Details Date Type Department Care Team (Late st Contact Info) Description 08/27/2021 Documentation Only [facility] [place], [address] [place] [address] India Davalos [address] [place] [address] Social History Tobacco Use Types [...] on filedocumented in this encounter Care Teams Grass Farmer Relationship Specialty Start Date End Date Sahra Son MD [address] [address] PCP - General Internal Medicine 10/28/22 documented as of this encounter
--- OUTSIDE RECORDS SUMMARY | 2024-07-25 11:09 | XMS_ITS | Encounter Summary ---
Author Organization [facility] [place], Address [address] [place] [address] Phone Care Team Providers Care Instrument Lens Grinder Apprentice Name Role Phone Sahra Son MD Primary Care Provider + Encounter Details Date Type Department Care Team (Late st Contact Info) Description 07/16/2023 Documentation Only [facility] [place], [address] [place] [address] India Davalos [address] [place] [address] Social History Tobacco Use Types [...] on filedocumented in this encounter Care Teams Instrument Lens Grinder Apprentice Relationship Specialty Start Date End Date Sahra Son MD [address] [address] PCP - General Internal Medicine 10/28/22 documented as of this encounter
--- OUTSIDE RECORDS SUMMARY | 2024-07-25 11:09 | XMS_ITS | Encounter Summary ---
Author Organization [facility] [place], Address [address] [place] [address] Phone Care Team Providers Care Building Principal Name Role Phone Sahra Son MD Primary Care Provider + Encounter Details Date Type Department Care Team (Late st Contact Info) Description 06/23/2024 Orders Only [facility] [place], [address] [place] [address] India Davalos [address] [place] [address] Chronic kidney disease, stage 2 [...] specified documented in this encounter Care Teams Building Principal Relationship Specialty Start Date End Date Sahra Son MD [address] [address] PCP - General Internal Medicine 10/28/22 documented as of this encounter
--- OUTSIDE RECORDS SUMMARY | 2024-07-25 11:09 | XMS_ITS | Encounter Summary ---
Author Organization [facility] [place], Address [address] [place] [address] Phone Care Team Providers Care Automation And Control Engineer Name Role Phone Sahra Son MD Primary Care Provider + Encounter Details Date Type Department Care Team (Late st Contact Info) Description 11/11/2023 Documentation Only [facility] [place], [address] [place] [address] India Davalos [address] [place] [address] Social History Tobacco Use Types [...] on filedocumented in this encounter Care Teams Automation And Control Engineer Relationship Specialty Start Date End Date Sahra Son MD [address] [address] PCP - General Internal Medicine 10/28/22 documented as of this encounter
--- OUTSIDE RECORDS SUMMARY | 2024-07-25 11:09 | XMS_ITS | Encounter Summary ---
Author Organization [facility] [place], Address [address] [place] [address] Phone Care Team Providers Care Bend Up Name Role Phone Sahra Son MD Primary Care Provider + Encounter Details Date Type Department Care Team (Late st Contact Info) Description 11/17/2023 Documentation Only [facility] [place], [address] [place] [address] India Davalos [address] [place] [address] Social History Tobacco Use Types [...] on filedocumented in this encounter Care Teams Bend Up Relationship Specialty Start Date End Date Sahra Son MD [address] [address] PCP - General Internal Medicine 10/28/22 documented as of this encounter
--- OUTSIDE RECORDS SUMMARY | 2024-07-25 11:09 | XMS_ITS | Encounter Summary ---
Author Organization [facility] [place], Address [address] [place] [address] Phone Care Team Providers Care Wet Washer Machine Name Role Phone Sahra Son MD Primary Care Provider + Encounter Details Date Type Department Care Team (Late st Contact Info) Description 10/07/2021 Documentation Only [facility] [place], [address] [place] [address] India Davalos [address] [place] [address] Social History Tobacco Use Types [...] on filedocumented in this encounter Care Teams Wet Washer Machine Relationship Specialty Start Date End Date Sahra Son MD [address] [address] PCP - General Internal Medicine 10/28/22 documented as of this encounter
--- OUTSIDE RECORDS SUMMARY | 2024-07-25 11:09 | XMS_ITS | Clinical Summary ---
Author Organization [facility] [place], Address [address] [place] [address] [place] [address] Phone Care Team Providers Care Tree Trimmer Helper Name Role Phone Sarha Son MD Primary Care Provider + Allergies Active Allergy Reactions Criticality Noted Date Comments Codeine 12/26/2012 Ferumoxytol Shortness of breath,Itching,Other (see comments) High 02/27/2022 Bones hurt Iodinated Contrast Media 07/06/2022 Penicillins 12/26/2012 Other Shellfish Allergy 12/26/2012 Tramadol 07/06/2022 Trazodone 03/08/2018 Iron Sucrose 02/29/2024 Coughing fit infusion stopped at [facility] Medications Cymbalta [address] capsule TK 2 CS PO QAM 12/28/19 20 Active LORazepam (ATIVAN) 1 MG tablet TK 1 T PO BID 12/24/19 20 Active meclizine (ANTIVERT) 25 MG tablet TK 1 T PO TID PRN 12/24/19 20 Active montelukast (SINGULAIR) 10 MG tablet TK 1 T PO QD IN THE DARCY 11/19/19 20 Active Creon 37325-01280 units capsule TK ONE C PO TID [...] [facility] [address] [place] [address] Anoop, [place] Chronic kidney disease, stage 2 (mild); Anemia in chronic kidney disease; Iron deficiency anemia, not otherwise specified 07/07/2024 Orders Only [facility] [address] [place] [address] Anoop, [place] Anemia in chronic kidney disease; Other iron deficiency anemia; Chronic kidney disease, stage 2 (mild) 06/23/2024 Orders Only [facility] [address] [place] [address] Anoop, [place] Chronic kidney disease, stage 2 (mild); Anemia in chronic kidney disease; Iron deficiency anemia, not otherwise specified 06/09/2024 Orders Only [facility] [address] [place] [address] Anoop, [place] Anemia in chronic kidney disease; Other iron deficiency anemia; Chronic kidney disease, stage 2 (mild) 06/05/2024 Telephone [facility] [address] [place] [address] Stephanie Azul, screedman/laborer reminder 05/26/2024 Orders Only [facility] [address] [place] [address] Anoop, [place] Chronic kidney disease, stage 2 (mild); Anemia in chronic kidney disease; Iron deficiency anemia, not otherwise specified 05/05/2024 Telephone [facility] [address] [place] [phone] Anoop [place] 05/05/2024 Orders Only [facility] [address] [place] [phone] Kaylyn Vargas Anemia in chronic kidney disease; Iron deficiency anemia, not otherwise specified; Chronic kidney disease, stage 2 (mild) 05/01/2024 Telephone [facility] [address] [place] [address] Olesya Han 05/01/2024 Telephone [facility] [address] [place] [phone] Olesya Han 04/28/2024 Orders Only [facility] [address] [place] [phone] India Davalos Chronic kidney disease, stage 2 [...] TIBC 262 250 - 450 ug/dL [facility] UIBC 205 118 - 369 ug/dL [facility] Iron 57 27 - 139 ug/dL [facility] Iron Saturation (TSat) 22 15 - 55 % [facility] Blood (Blood, Venous) 06/07/2024 11:53 AM EST 06/07/2024 us Barry Reyes MD LAB BLOOD ORDERABLES Final Re sult [facility] [address] [place] [address] * (ABNORMAL) CBC and Differential (06/07/2024 11:53 AM EST) Only the most recent of2 resultswithin the time period is included. WBC 5.5 3.4 - 10.8 x10E3/uL [facility] RBC 5.76(H) 3.77 - 5.28 x10E6/uL [facility] Hemoglobin 11.1 11.1 - 15.9 g/dL [facility] Hematocrit 38.4 34.0 - 46.6 % [facility] MCV 67(L) 79 - 97 fL [facility] MCH 19.3(L) 26.6 - 33.0 pg [facility] MCHC 28.9(L) 31.5 - 35.7 g/dL [facility] RDW 18.8(H) 11.7 - 15.4 % [facility] Platelets 162 150 - 450 x10E3/uL [facility] Neutrophils Relative 59 Not Estab. % [facility] Lymphocytes Relative 31 Not Estab. % [facility] Monocytes 6 Not Estab. % [facility] Eosinophils Relative 2 Not Estab. % [facility] Basophils Relative 1 Not Estab. % [facility] Neutrophils Absolute 3.3 1.4 - 7.0 x10E3/uL [facility] Lymphocytes Absolute 1.7 0.7 - 3.1 x10E3/uL [facility] Monocytes Absolute 0.3 0.1 - 0.9 x10E3/uL [facility] Eosinophils Absolute 0.1 0.0 - 0.4 x10E3/uL [facility] Basophils Absolute 0.0 0.0 - 0.2 x10E3/uL [facility] Immature Granulocytes 1 Not Estab. % [facility] Immature Grans (Absolute) 0.0 0.0 - 0.1 x10E3/uL [facility] Blood (Blood, Venous) 06/07/2024 11:53 AM EST 06/07/2024 Barry Reyes MD LAB BLOOD ORDERABLES Final Re sult [facility] [address] [place] [address] * Ferritin (06/07/2024 11:53 AM EST) Only the most recent of2 resultswithin the time period is included. Ferritin 102 15 - 150 ng/mL [facility] Blood (Blood, Venous) 06/07/2024 11:53 AM EST 06/07/2024 Barry Reyes MD LAB BLOOD ORDERABLES Final Re sult [facility] [address] [place] [address] * (ABNORMAL) Renal Function Panel (06/07/2024 11:53 AM EST) Only the most recent of2 resultswithin the time period is included. Glucose 168(H) 70 - 99 mg/dL [facility] BUN 17 8 - 27 mg/dL [facility] Creatinine 1.09(H) 0.57 - 1.00 mg/dL [facility] eGFR CKD-EPI CR 2020 57(L) >59 mL/min/1.7 3 [facility] BUN/Creatinine Ratio 16 12 - 28 [facility] Sodium 137 134 - 144 mmol/L [facility] Potassium 4.8 3.5 - 5.2 mmol/L [facility] Chloride 99 96 - 106 mmol/L [facility] Bicarbonate (CO2) 23 20 - 29 mmol/L [facility] Calcium 9.0 8.7 - 10.3 mg/dL [facility] Albumin 4.2 3.9 - 4.9 g/dL [facility] Phosphorus 4.4(H) 3.0 - 4.3 mg/dL [facility] Blood (Blood, Venous) 06/07/2024 11:53 AM EST 06/07/2024 us Barry Reyes MD LAB BLOOD ORDERABLES Final Re sult [facility] [address] [place] [address] * (ABNORMAL) Hemoglobin A1c (06/08/2023 8:36 AM EST) Hemoglobin A1C 7.2(H) (4.0-5.6) % [facility] Comment: MONITORING: In known diabetic patients, hemoglobin A1c targets should be discussed with health care provider. DIAGNOSTIC USE: ??The [place] Diabetes Association (ADA) and the World Health [...] Supplement 1 Testing performed or reported by [facility] [employer] [address] Luis A Bailey MD, [employer] [facility]# [id number] Blood (Blood, Venous) 06/08/2023 8:36 AM EST 06/08/2023 8:38 AM EST us Arlene CARTER LAB BLOOD ORDERABLES Final Re sult [facility] from Last 3 Months or Most Recently Relevant to Health Maintenance Insurance [facility] ONE CARE DUAL SNP ([id number]) Care Teams Tree Trimmer Helper Relationship Specialty Start Date End Date Sahra Son MD [address] [address] PCP - General Internal Medicine 10/28/22
--- OUTSIDE RECORDS SUMMARY | 2024-07-25 11:09 | XMS_ITS | Encounter Summary ---
Author Organization [facility] [place], Address [address] [place] [address] Phone Care Team Providers Care Administrative Library Assistant Name Role Phone Sahra Son MD Primary Care Provider + Encounter Details Date Type Department Care Team (Late st Contact Info) Description 11/11/2023 Documentation Only [facility] [place], [address] [place] [address] India Davalos [address] [place] [address] Social History Tobacco Use Types [...] on filedocumented in this encounter Care Teams Administrative Library Assistant Relationship Specialty Start Date End Date Sahra Son MD [address] [address] PCP - General Internal Medicine 10/28/22 documented as of this encounter
== END 2024-07-25 09:49 | disposition home or self-care (01) ==
LOC: HO.NEURO 09:48
PROVIDERS: PCP Internal Medicine; Visit Provider Psychiatry & Neurology Neurology
DX: F44.5 Conversion disorder with seizures or convulsions (principal)
CPT/HCPCS: 95816

== ENCOUNTER 2024-08-07 08:47 | Outpatient (AMB) | payer OTHER, SELFPAY ==
[2024-08-07 08:55] LABS: Prothrombin Time Whole Bld POC 21.5 sec (11.1-13.5); ~PT, ~INR - Anti Coag Clinic 1.8 (0.9-1.1)
--- NOTE | 2024-08-07 09:07 | MHC.OFFVISCO ---
Intake Intake Visit Reasons: Anticoagulation Allergies codeine [Codeine] Allergy (Severe, Verified 08/07/24 08:48) DIFFICULTY BREATHING Penicillins Allergy (Severe, Verified 08/07/24 08:48) RASH penicillin V Allergy (Intermediate, Verified 08/07/24 08:48) RASH tramadol [Ultram] Allergy (Unknown, Verified 08/07/24 08:48) hallucinations Shellfish Allergy (Severe, Uncoded 08/07/24 08:48) THROAT SWELLING Contrast Allergy PreMed Pack Allergy (Unknown, Uncoded 08/07/24 08:48) TREAT WITH BENADRYL ferrlecit Adverse Reaction (Intermediate, Uncoded 08/07/24 08:48) Rash Medication List - Last Reconciled 08/07/24 by Tangela Sam RN atorvastatin 80 mg PO DAILY blood sugar diagnostic As directed budesonide (Pulmicort) 0.25 mg inhalation BID clonidine HCl 0.1 mg PO BID duloxetine 120 mg PO QAM epoetin marj (Procrit) 2,000 units subcut 3XW hydrocortisone 2.5% appl topical ipratropium-albuterol 0.5 mg-3 mg(2.5 mg base)/3 mL mL inhalation ipratropium-albuterol 20-100 mcg/actuation 1 puff PO QID ipratropium-albuterol 20-100 mcg/actuation (Combivent Respimat) 1 puff inhalation Q4H lancets As directed lancets As directed latanoprost 0.005% drps ophthalmic (eye) linagliptin (Tradjenta) 5 mg PO DAILY qgijeb-jlobwfnr-zkngbzm 24,000-76,000 -120,000 unit (Creon) 1 cap PO TID loratadine 10 mg PO DAILY PRN lorazepam 1 mg PO BID meclizine mg PO montelukast 10 mg PO BEDTIME nifedipine ER 30 mg PO DAILY nitroglycerin 0.4 mg sublingual Q5M PRN nystatin 1 appl topical DAILY PRN ondansetron 4 mg PO Q8H PRN oxcarbazepine (Trileptal) 1 tab qhs x's 1 week then 1 tab bid orally .; 30 days quetiapine 200 mg PO BEDTIME rabeprazole 20 mg PO DAILY ropinirole 0.25 mg PO BEDTIME sodium chloride 0.65% (Deep Sea Nasal) sprays intranasal Q2H PRN triamcinolone acetonide 0.1% appl topical warfarin 2.5 mg See Protocol PO DAILY Nursing Note INR 1.8 out of therapeutic range Medications and supplements reviewed- ON OXCARBAZAPINE FOR SEIZURE WHICH CAN LOWER THE INR - SHE IS NO LONGER HAVING SEIZURES Patient status: C/O OF OCC LEFT FLANK PAIN THAT RADIATES TO GROIN- ENC TO CALL PCP - SHE HAS AN APPT NEXT WEEK- BUT ENC TO CALL HER FOR SOONER APPT Medications or supplements: NO CHANGES Diet: NO CHANGE Denies any signs and symptoms of bleeding or clotting or unusual bruising Bleeding, bruising, clotting discussed Nutritional guidance given: EAT A MIX OF FRUITS AND VEGETABLES TO BALANCE INR - NO GREENS TODAY Dose: INCREASE TO 5MG X 2 DAYS / 3.75MG X 5 DAYS F/U INR Date: 08/17/24 ?? Patient verbalizing understanding of instructions given WITH READ BACK Anti-Coag Initial Assessment Social Hx Patient Tobacco Use Status: Current everyday Tobacco user alcohol intake: never Questionnaires HAS-BLED Does the patient had uncontrolled Hypertension?: No Does the patient have renal disease?: Yes Does the patient have liver disease?: Yes Does the patient have a history of stroke?: Yes Has the patient had major bleeding or predisposition to bleeding?: Yes Does the patient have labile INRs?: Yes Is the patient over 65 years of age?: No Is the patient on medications that gives them a predisposition to bleeding?: Yes Does the patient use alcohol?: No HAS-BLED Score: 6 (USES CBD MARIJUANA ADD A POINT TO =6 ) CHADSVASC Age: <65 Gender: Female Does the patient have a history of CHF?: No Does the patient have a history of Hypertension?: Yes Does the patient have a history of Stroke/TIA/Thromboembolism?: Yes Does the patient have a history of Vascular Disease (prior SD, PAD or aortic plaque)?: Yes Does the patient have a history of Diabetes?: No CHADS VACS Score: 5 Evans Prediction Score Rsk VTE Active Cancer: No Previous VTE, excluding superficial vein thrombosis: Yes Reduced mobility: No Already known Thrombophilic Condition: No With-in last month Trauma and/or Surgery: No Elderly 70 year or older: No Heart and/or Respiratory Failure: Yes Acute Myocardial infarction and/or Ischemic Stroke: Yes (CVA) Acute Infection and/or Rheumatologic Disorder: Yes (LUPUS) Obesity (BMI 30 or greater): Yes Ongoing Hormonal Treatment: No Score: 7 Evans Score less than 4; Low Risk of VTE Evans Score 4 or greater; High Risk of VTE Coding Level of Care Code Est Patient Level 1 Diagnoses Current use of anticoagulant therapy Z79.01 Assessment & Plan Assessment & Plan (1) Current use of anticoagulant therapy: Code(s): Z79.01 - MCFP (current) use of anticoagulants Category: Medical
== END 2024-08-07 09:19 | disposition home or self-care (01) ==
LOC: HO.ACS 08:47
PROVIDERS: PCP Internal Medicine; Visit Provider Internal Medicine Medical Oncology
DX: Z79.01 Long term (current) use of anticoagulants (principal)

== ENCOUNTER → 2024-08-07 08:47 | Outpatient (BNVA) | payer OTHER, SELFPAY | PROVIDERS: PCP Internal Medicine; Visit Provider Internal Medicine Medical Oncology | DX: Z86.718 Personal history of other venous thrombosis and embolism (principal); Z51.81 Encounter for therapeutic drug level monitoring; Z79.01 Long term (current) use of anticoagulants | CPT/HCPCS: 85610; 99211 ==

== ENCOUNTER 2024-08-29 09:27 | Outpatient (AMB) | payer OTHER, SELFPAY ==
[2024-08-29 09:38] LABS: Prothrombin Time Whole Bld POC 17.7 sec (11.1-13.5); ~PT, ~INR - Anti Coag Clinic 1.5 (0.9-1.1)
--- NOTE | 2024-08-29 09:47 | MHC.OFFVISCO ---
Intake Intake Visit Reasons: Anticoagulation Allergies codeine [Codeine] Allergy (Severe, Verified 08/29/24 09:31) DIFFICULTY BREATHING Penicillins Allergy (Severe, Verified 08/29/24 09:31) RASH penicillin V Allergy (Intermediate, Verified 08/29/24 09:31) RASH tramadol [Ultram] Allergy (Unknown, Verified 08/29/24 09:31) hallucinations Shellfish Allergy (Severe, Uncoded 08/29/24 09:31) THROAT SWELLING Contrast Allergy PreMed Pack Allergy (Unknown, Uncoded 08/29/24 09:31) TREAT WITH BENADRYL ferrlecit Adverse Reaction (Intermediate, Uncoded 08/29/24 09:31) Rash Medication List - Last Reconciled 08/29/24 by Tangela Sam RN atorvastatin 80 mg PO DAILY blood sugar diagnostic As directed budesonide (Pulmicort) 0.25 mg inhalation BID clonidine HCl 0.1 mg PO BID duloxetine 120 mg PO QAM epoetin marj (Procrit) 2,000 units subcut 3XW hydrocortisone 2.5% appl topical ipratropium-albuterol 0.5 mg-3 mg(2.5 mg base)/3 mL mL inhalation ipratropium-albuterol 20-100 mcg/actuation 1 puff PO QID ipratropium-albuterol 20-100 mcg/actuation (Combivent Respimat) 1 puff inhalation Q4H lancets As directed lancets As directed latanoprost 0.005% drps ophthalmic (eye) linagliptin (Tradjenta) 5 mg PO DAILY zzzkqr-dprgyxng-yfpbgwg 24,000-76,000 -120,000 unit (Creon) 1 cap PO TID loratadine 10 mg PO DAILY PRN lorazepam 1 mg PO BID meclizine mg PO montelukast 10 mg PO BEDTIME nifedipine ER 30 mg PO DAILY nitroglycerin 0.4 mg sublingual Q5M PRN nystatin 1 appl topical DAILY PRN ondansetron 4 mg PO Q8H PRN oxcarbazepine (Trileptal) 1 tab qhs x's 1 week then 1 tab bid orally .; 30 days quetiapine 200 mg PO BEDTIME rabeprazole 20 mg PO DAILY ropinirole 0.25 mg PO BEDTIME sodium chloride 0.65% (Deep Sea Nasal) sprays intranasal Q2H PRN triamcinolone acetonide 0.1% appl topical warfarin 2.5 mg See Protocol PO DAILY Nursing Note INR: 1.5 out of therapeutic range 2.0-3.0 Medications and supplements reviewed right rib fracture abd chest strain from reaching over the arm chair- sounds to have a possible bruise/ hematoma in that area md is aware, she states it is very sore- received tordal x 2 - and wearing supportive bra. Denies any signs and symptoms of bleeding or bruising or clotting. Bleeding, bruising, clotting discussed Nutritional guidance given - avoid greens today and tomorrow - eat orange and reds to help raise the INR Dose: increase weekly dose 5mg x 3 days/ 2.5mg x 4 days F/U INR: 1 week, she is helping her family with arrangements her father going home on hospice Patient verbalizes understanding of instructions given with read back Anti-Coag Initial Assessment Social Hx Patient Tobacco Use Status: Current everyday Tobacco user alcohol intake: never Coding Level of Care Code Est Patient Level 1 Diagnoses Current use of anticoagulant therapy Z79.01 Results AMB INR Fingerstick AMB INR Fingerstick 1.5 Last Edit by Tangela Sam RN on 08/29/24 09:38 manual entry Assessment & Plan Assessment & Plan (1) Current use of anticoagulant therapy: Code(s): Z79.01 - custodial (current) use of anticoagulants Category: Medical
--- OUTSIDE RECORDS SUMMARY | 2024-08-29 10:33 | XMS_ITS | Encounter Summary ---
Author Organization [facility] Address [address] [place] [address] Phone Care Team Providers Care Resident Care Technician Name Role Phone Sahra Son MD Primary Care Provider + Encounter Details Date Type Department Care Team ([facility] Contact Info) Description 09/28/2022 Documentation Only [facility] [address] [place] [address] India Davalos [address] [place] [address] Social History Tobacco Use Types [...] Upcoming Encounters Date Type Department Care Team ([facility] Contact Info) Description 11/23/2024 12:50 PM EDT Office Visit [facility] [address] [place] [address] Barry Reyes MD [address] [place] [address] [place] [address] documented as of this encounter Visit Diagnoses Not on filedocumented in this encounter Care Teams Resident Care Technician Relationship Specialty Start Date End Date Sahra Son MD [address] [address] PCP - General Internal Medicine 10/28/22 documented as of this encounter
--- OUTSIDE RECORDS SUMMARY | 2024-08-29 10:33 | XMS_ITS | Encounter Summary ---
Author Organization [facility] Address [address] [place] [address] Phone Care Team Providers Care Driver Retraining Instructor Name Role Phone Sahra Son MD Primary Care Provider + Encounter Details Date Type Department Care Team ([facility] Contact Info) Description 06/22/2022 Documentation Only [facility] [address] [place] [address] India Davalos [address] [place] [address] Social History Tobacco Use Types [...] Department Care Team (Late Contact Info) Description 11/23/2024 12:50 PM EDT Office Visit [facility] [address] [place] [address] Barry Reyes MD [address] [place] [address] [place] [address] documented as of this encounter Visit Diagnoses Not on filedocumented in this encounter Care Teams Driver Retraining Instructor Relationship Specialty Start Date End Date Sahra Son MD [address] [address] PCP - General Internal Medicine 10/28/22 documented as of this encounter
--- OUTSIDE RECORDS SUMMARY | 2024-08-29 10:33 | XMS_ITS | Encounter Summary ---
Author Organization [facility] Address [address] [place] [address] Phone Care Team Providers Care Mortgage Manager Name Role Phone Sahra Son MD Primary Care Provider + Encounter Details Date Type Department Care Team ([facility] Contact Info) Description 09/28/2022 Documentation Only [facility] [address] [place] [address] India Davalos [address] [place] [address] Social History Tobacco Use Types [...] Upcoming Encounters Date Type Department Care Team ([facility] Contact Info) Description 11/23/2024 12:50 PM EDT Office Visit [facility] [address] [place] [address] Barry Reyes MD [address] [place] [address] [place] [address] documented as of this encounter Visit Diagnoses Not on filedocumented in this encounter Care Teams Mortgage Manager Relationship Specialty Start Date End Date Sahra Son MD [address] [address] PCP - General Internal Medicine 10/28/22 documented as of this encounter
--- OUTSIDE RECORDS SUMMARY | 2024-08-29 10:33 | XMS_ITS | Encounter Summary ---
Author Organization [facility] Address [address] [place] [address] Phone Care Team Providers Care Wardrobe Specialty Worker Name Role Phone Sahra Son MD Primary Care Provider + Encounter Details Date Type Department Care Team ([facility] Contact Info) Description 09/18/2022 Documentation Only [facility] [address] [place] [address] India Davalos [address] [place] [address] Social History Tobacco Use Types [...] Upcoming Encounters Date Type Department Care Team ([facility] Contact Info) Description 11/23/2024 12:50 PM EDT Office Visit [facility] [address] [place] [address] Barry Reyes MD [address] [place] [address] [place] [address] documented as of this encounter Visit Diagnoses Not on filedocumented in this encounter Care Teams Wardrobe Specialty Worker Relationship Specialty Start Date End Date Sahra Son MD [address] [address] PCP - General Internal Medicine 10/28/22 documented as of this encounter
--- OUTSIDE RECORDS SUMMARY | 2024-08-29 10:33 | XMS_ITS | Encounter Summary ---
Author Organization [facility] Address [address] [place] [address] Phone Care Team Providers Care Director Of Graduate Admissions Name Role Phone Sahra Son MD Primary Care Provider + Encounter Details Date Type Department Care Team (Late Contact Info) Description 03/03/2024 Orders Only [facility] [address] [place] [address] India Davalos [address] [place] [address] Chronic kidney disease, stage [...] Care Team (Late st Contact Info) Description 11/23/2024 12:50 PM EDT Office Visit [facility] [address] [place] [address] Barry Reyes MD [address] [place] [address] [place] [address] documented as of this encounter [...] Glucose 152(H) 70 - 99 mg/dL [facility] BUN 16 8 - 27 mg/dL [facility] Creatinine 0.98 0.57 - 1.00 mg/dL [facility] eGFR CKD-EPI CR 2020 64 >59 mL/min/1.7 3 [facility] BUN/Creatinine Ratio 16 12 - 28 [facility] Sodium 137 134 - 144 mmol/L [facility] Potassium 4.8 3.5 - 5.2 mmol/L [facility] Chloride 101 96 - 106 mmol/L [facility] Bicarbonate (CO2) 22 20 - 29 mmol/L [facility] Calcium 8.8 8.7 - 10.3 mg/dL [facility] Albumin 4.0 3.9 - 4.9 g/dL [facility] Phosphorus 4.0 3.0 - 4.3 mg/dL [facility] Blood (Blood, Venous) 03/24/2024 10:37 AM EST 03/24/2024 Barry Reyes MD LAB BLOOD ORDERABLES Final Re sult Performing Organization Address City/[facility]/ZIP Co de Phone Number [facility] [address] [place] [address] * Ferritin (03/24/2024 10:37 AM EST) Ferritin 37 15 - 150 ng/mL [facility] Blood (Blood, Venous) 03/24/2024 10:37 AM EST 03/24/2024 Barry Reyes MD LAB BLOOD ORDERABLES Final Re sult Performing Organization Address [facility] de Phone Number [facility] [address] [place] [address] * Iron Panel (Fe, TIBC, TSAT) (03/24/2024 10:37 AM EST) Pathologist [facility] TIBC 293 250 - 450 ug/dL [facility] UIBC 247 118 - 369 ug/dL [facility] Iron 46 27 - 139 ug/dL [facility] Iron Saturation (TSat) 16 15 - 55 % [facility] Blood (Blood, Venous) 03/24/2024 10:37 AM EST 03/24/2024 Barry Reyes MD LAB BLOOD ORDERABLES Final Re sult Performing Organization Address City/[facility]/ZIP Co de Phone Number [facility] [address] [place] [address] * (ABNORMAL) CBC and Differential (03/24/2024 10:37 AM EST) [facility] WBC 6.0 3.4 - 10.8 x10E3/uL [facility] RBC 5.21 3.77 - 5.28 x10E6/uL [facility] Hemoglobin 10.0(L) 11.1 - 15.9 g/dL [facility] Hematocrit 35.3 34.0 - 46.6 % [facility] MCV 68(L) 79 - 97 fL [facility] MCH 19.2(L) 26.6 - 33.0 pg [facility] MCHC 28.3(L) 31.5 - 35.7 g/dL [facility] RDW 19.4(H) 11.7 - 15.4 % [facility] Platelets 186 150 - 450 x10E3/uL [facility] Neutrophils Relative 65 Not Estab. % [facility] Lymphocytes Relative 26 Not Estab. % [facility] Monocytes 6 Not Estab. % [facility] Eosinophils Relative 2 Not Estab. % [facility] Basophils Relative 1 Not Estab. % [facility] Neutrophils Absolute 3.9 1.4 - 7.0 x10E3/uL [facility] Lymphocytes Absolute 1.5 0.7 - 3.1 x10E3/uL [facility] Monocytes Absolute 0.3 0.1 - 0.9 x10E3/uL [facility] Eosinophils Absolute 0.1 0.0 - 0.4 x10E3/uL [facility] Basophils Absolute 0.0 0.0 - 0.2 x10E3/uL [facility] Immature Granulocytes 0 Not Estab. % [facility] Immature Grans (Absolute) 0.0 0.0 - 0.1 x10E3/uL [facility] Blood (Blood, Venous) 03/24/2024 10:37 AM EST 03/24/2024 us Barry Reyes MD LAB BLOOD ORDERABLES Final Re sult [facility] [address] [place] [address] documented in this encounter Visit Diagnoses Diagnosis Chronic kidney disease, stage 2 (mild) Anemia in chronic kidney disease Iron deficiency anemia, not otherwise specified documented in this encounter Care Teams Director Of Graduate Admissions Relationship Specialty Start Date End Date Sahra Son MD [address] [place] [address] PCP - General Internal Medicine 10/28/22 documented as of this encounter
--- OUTSIDE RECORDS SUMMARY | 2024-08-29 10:33 | XMS_ITS | Encounter Summary ---
Author Organization [facility] Address [address] [place] [address] Phone Care Team Providers Care Helper Steel Fabrication Name Role Phone Sahra Son MD Primary Care Provider + Encounter Details Date Type Department Care Team ([facility] Contact Info) Description 03/22/2024 Documentation Only [facility] [address] [place] [address] India Davalos [address] [place] [address] Social History Tobacco Use Types [...] [facility] [address] [place] [address] Barry Reyes MD [address] [place] [address] [place] [address] documented as of this encounter Visit Diagnoses Not on filedocumented in this encounter Care Teams Helper Steel Fabrication Relationship Specialty Start Date End Date Sahra Son MD [address] [address] PCP - General Internal Medicine 10/28/22 documented as of this encounter
--- OUTSIDE RECORDS SUMMARY | 2024-08-29 10:33 | XMS_ITS | Encounter Summary ---
Author Organization [facility] Address [address] [place] [address] Phone Care Team Providers Care Gizzard Skin Remover Name Role Phone Sahra Son MD Primary Care Provider + Encounter Details Date Type Department Care Team ([facility] [address] [facility] Contact Info) Description 09/28/2022 Documentation Only [facility] [address] [place] [address] India Davalos [address] [place] [address] Social History Tobacco Use Types [...] Upcoming Encounters Date Type Department Care Team ([facility] [address] Contact Info) Description 11/23/2024 12:50 PM EDT Office Visit [facility] [address] [place] [address] Barry Reyes MD [address] [place] [address] [place] [address] documented as of this encounter Visit Diagnoses Not on filedocumented in this encounter Care Teams Gizzard Skin Remover Relationship Specialty Start Date End Date Sahra Son MD [address] [address] PCP - General Internal Medicine 10/28/22 documented as of this encounter
--- OUTSIDE RECORDS SUMMARY | 2024-08-29 10:33 | XMS_ITS | Encounter Summary ---
Author Organization [facility] Address [address] [place] [address] Phone Care Team Providers Care Mechanical Design Engineer Products Name Role Phone Sahra Son MD Primary Care Provider + Encounter Details Date Type Department Care Team ([facility] Contact Info) Description 06/17/2022 Documentation Only [facility] [address] [place] [place] [address] India Davalos [address] [place], [place] [...] [facility] [address] [place] [place] [address] Barry Reyes MD [address] [place] [address] [place] [address] documented as of this encounter Visit Diagnoses Not on filedocumented in this encounter Care Teams Mechanical Design Engineer Products Relationship Specialty Start Date End Date Sahra Son MD [address] [address] PCP - General Internal Medicine 10/28/22 documented as of this encounter
--- OUTSIDE RECORDS SUMMARY | 2024-08-29 10:33 | XMS_ITS | Encounter Summary ---
Author Organization [facility] Address [address] [place] [address] Phone Care Team Providers Care Sleep Technologist Name Role Phone Sahra Son MD Primary Care Provider + Encounter Details Date Type Department Care Team ([facility] Contact Info) Description 06/16/2022 Documentation Only [facility] [address] [place] [address] India Davalos [address] [place], [place] [...] [facility] [address] [place] [address] Barry Reyes MD [address] [place] [address] [place] [address] documented as of this encounter Visit Diagnoses Not on filedocumented in this encounter Care Teams Sleep Technologist Relationship Specialty Start Date End Date Sahra Son MD [address] [address] PCP - General Internal Medicine 10/28/22 documented as of this encounter
--- OUTSIDE RECORDS SUMMARY | 2024-08-29 10:33 | XMS_ITS | Encounter Summary ---
Author Organization [facility] [facility] Address [address] [place] [address] Care Team Providers Care Real Estate Consultant Name Role Phone Sahra Son MD Primary Care Provider Paula daryilaMarko Perales MD Unavailable [phone] Reason for Visit * Reason Onset Date Comments Prior Authorization 09/01/2022 CT CHEST Encounter Details Date Type Department Care Team Description 09/01/2022 Telephone Pulmonology - [place] [address] [facility] [address] [place] [phone] Betty Morillo MD [address] [facility] [address] [place] [address] Prior Authorization (CT CHEST) Social History Tobacco [...] Ref#: Barbara Gann on 09/09 @ 11:31 [id number] * Telephone Encounter - Dilcia Hannon - 09/01/2022 1:20 PM EDT [facility] - Auth Pending (7-14 days to process) Auth request, clinicals and Rad report faxed to [facility]. [id number] documented in this encounter Plan of Treatment Not on file documented as of this encounter Visit Diagnoses Not on filedocumented in this encounter Care Teams Real Estate Consultant Relationship Specialty Start Date End Date Sahra Son MD PCP - General Internal Medicine 08/31/22 Marko Spaulding MD Specialist Cardiology 09/23/22 documented as of this encounter
--- OUTSIDE RECORDS SUMMARY | 2024-08-29 10:33 | XMS_ITS | Encounter Summary ---
Author Organization Personal Estate [facility] Address [address] [place] [address] Care Team Providers Care Drawer In Jacquard Loom Name Role Phone Vinnie Santizo Primary Care Provider Sahra Keith MD Primary Care Provider Marko Fernandez MD Unavailable [phone] Encounter Details Date Type Department Care Team Description 08/27/2022 [facility] [address] [place] [address] [place] [address] Social History Tobacco Use Types Packs/Day Years [...] on filedocumented in this encounter Care Teams Drawer In Jacquard Loom Relationship Specialty Start Date End Date Vinnie Santizo PCP - General Internal Medicine 03/30/17 08/30/22 Sahra Son MD PCP - General Internal Medicine 08/31/22 Marko Spaulding MD Specialist Cardiology 09/23/22 documented as of this encounter
--- OUTSIDE RECORDS SUMMARY | 2024-08-29 10:33 | XMS_ITS | Encounter Summary ---
Author Organization [facility] Address [address] [place] [address] Phone Care Team Providers Care Qa Intern Name Role Phone Sahra Son MD Primary Care Provider + Encounter Details Date Type Department Care Team ([facility] Contact Info) Description 06/18/2021 Documentation Only [facility] [address] [place] [address] India Davalos [address] [place] [address] Social History Tobacco Use [...] [facility] [address] [place] [address] Barry Reyes MD [address] [place] [address] [place] [address] documented as of this encounter Visit Diagnoses Not on filedocumented in this encounter Care Teams Qa Intern Relationship Specialty Start Date End Date Sahra Son MD [address] [address] PCP - General Internal Medicine 10/28/22 documented as of this encounter
--- OUTSIDE RECORDS SUMMARY | 2024-08-29 10:33 | XMS_ITS | Encounter Summary ---
Author Organization [facility] Address [address] [place] [address] Phone Care Team Providers Care Chocolate Maker Name Role Phone Sahra Son MD Primary Care Provider + Encounter Details Date Type Department Care Team ([facility] Contact Info) Description 09/28/2022 Documentation Only [facility] [address] [place] [address] India Dvaalos [address] [place] [address] Social History Tobacco Use Types [...] Upcoming Encounters Date Type Department Care Team ([facility] Contact Info) Description 11/23/2024 12:50 PM EDT Office Visit [facility] [address] [place] [address] Barry Reyes MD [address] [place] [address] [place] [address] documented as of this encounter Visit Diagnoses Not on filedocumented in this encounter Care Teams Chocolate Maker Relationship Specialty Start Date End Date Sahra Son MD [address] [address] PCP - General Internal Medicine 10/28/22 documented as of this encounter
--- OUTSIDE RECORDS SUMMARY | 2024-08-29 10:34 | XMS_ITS | Encounter Summary ---
Author Organization [facility] Address [address] [place] [address] Phone Care Team Providers Care Doll Wig Hackler Name Role Phone Sahra Son MD Primary Care Provider + Encounter Details Date Type Department Care Team ([facility] Contact Info) Description 08/11/2022 Documentation Only [facility] [address] [place] [address] India Davalos [address] [place], [place] [...] [facility] [address] [place] [address] Barry Reyes MD [address] [place] [address] [place] [address] documented as of this encounter Visit Diagnoses Not on filedocumented in this encounter Care Teams Doll Wig Hackler Relationship Specialty Start Date End Date Sahra Son MD [address] [address] PCP - General Internal Medicine 10/28/22 documented as of this encounter
--- OUTSIDE RECORDS SUMMARY | 2024-08-29 10:34 | XMS_ITS | Encounter Summary ---
Author Organization [facility] Address [address] [place] [address] Phone Care Team Providers Care Advertising Teacher Name Role Phone Sahra Son MD Primary Care Provider + Encounter Details Date Type Department Care Team ([facility] Contact Info) Description 11/21/2021 Documentation Only [facility] [address] [place] [address] India Davalos [address] [place] [address] Social History Tobacco Use Types [...] [facility] [address] [place] [address] Barry Reyes MD [address] [place] [address] [place] [address] documented as of this encounter Visit Diagnoses Not on filedocumented in this encounter Care Teams Advertising Teacher Relationship Specialty Start Date End Date Sahra Son MD [address] [address] PCP - General Internal Medicine 10/28/22 documented as of this encounter
--- OUTSIDE RECORDS SUMMARY | 2024-08-29 10:34 | XMS_ITS | Encounter Summary ---
Author Organization [facility] Address [address] [place] [address] Phone Care Team Providers Care Lead Data Architect Name Role Phone Sahra Son MD Primary Care Provider + Encounter Details Date Type Department Care Team ([facility] Contact Info) Description 11/05/2023 Documentation Only [facility] [address] [place] [address] India Davalos [address] [place] [address] Social History Tobacco Use Types [...] [facility] [address] [place] [address] Barry Reyes MD [address] [place] [address] [place] [address] documented as of this encounter Visit Diagnoses Not on filedocumented in this encounter Care Teams Lead Data Architect Relationship Specialty Start Date End Date Sahra Son MD [address] [address] PCP - General Internal Medicine 10/28/22 documented as of this encounter
--- OUTSIDE RECORDS SUMMARY | 2024-08-29 10:34 | XMS_ITS | Encounter Summary ---
Author Organization [facility] Address [address] [place] [address] Phone Care Team Providers Care Biodiesel Engine Specialist Name Role Phone Sahra Son MD Primary Care Provider + Encounter Details Date Type Department Care Team ([facility] Contact Info) Description 07/16/2023 Documentation Only [facility] [address] [place] [address] India Davalos [address] [place] [address] Social History Tobacco Use Types [...] Visit [facility] [address] [place] [address] Barry Reyes MD [address] [place] [address] [place] [address] documented as of this encounter Visit Diagnoses Not on filedocumented in this encounter Care Teams Biodiesel Engine Specialist Relationship Specialty Start Date End Date Sarha Son MD [address] [address] PCP - General Internal Medicine 10/28/22 documented as of this encounter
--- OUTSIDE RECORDS SUMMARY | 2024-08-29 10:34 | XMS_ITS | Encounter Summary ---
Author Organization [facility] Address [address] [place] [address] Phone Care Team Providers Care Admissions Gate Attendant Name Role Phone Sahra Son MD Primary Care Provider + Encounter Details Date Type Department Care Team ([facility] Contact Info) Description 01/06/2022 Documentation Only [facility] [address] [place] [address] Juan Jose Li MD [address] [place] [address] [place] [address] Social History Tobacco Use Types [...] [facility] [address] [place] [address] Barry Reyes MD [address] [place] [address] [place] [address] documented as of this encounter Visit Diagnoses Not on filedocumented in this encounter Care Teams Admissions Gate Attendant Relationship Specialty Start Date End Date Sahra Son MD [address] [address] PCP - General Internal Medicine 10/28/22 documented as of this encounter
--- OUTSIDE RECORDS SUMMARY | 2024-08-29 10:34 | XMS_ITS | Encounter Summary ---
Author Organization [facility] Address [address] [place] [address] Phone Care Team Providers Care Rn Manager Name Role Phone Sahra Son MD Primary Care Provider + Encounter Details Date Type Department Care Team (Late Contact Info) Description 05/17/2023 Orders Only [facility] [address] [place] [address] Arlene Alston PA Chronic kidney [...] Visit [facility] [address] [place] [address] Barry Reyes MD [address] [place] [address] [place] [address] documented as of this encounter [...] [facility] Iron 49 (30-160) MCG/DL [facility] UIBC 246 (110-370) MCG/DL [facility] TIBC 295 (140-530) MCG/DL [facility] Iron Saturation (TSat) 17(L) (20-55) % [facility] Comment: Testing performed or reported by [facility], a Service of [address] [address] Luis A Bailey MD, Outdoor Adventure Leader CLIA# [id number] Blood (Blood, Venous) 06/08/2023 8:36 AM EST 06/08/2023 8:39 AM EST Arlene CARTER LAB BLOOD ORDERABLES Final Re sult Performing Organization Address [facility] de Phone Number [facility] * Vitamin D 25 hydroxy (06/08/2023 8:36 AM EST) Pathologist [facility] Vitamin D, 25-Hydroxy 24.8 (20-50) NG/ML [facility] Comment: Testing performed or reported by [facility], a Service of [address] [address] Luis A Bailey MD, Outdoor Adventure Leader CLIA# [id number] Blood (Blood, Venous) 06/08/2023 8:36 AM EST 06/08/2023 8:39 AM EST Arlene CARTER LAB BLOOD ORDERABLES Final Re sult Performing Organization Address [facility] de Phone Number [facility] * (ABNORMAL) Renal function panel (06/08/2023 8:36 AM EST) Glucose 166(H) (70-99) MG/DL [facility] BUN 19 (8-23) MG/DL [facility] Creatinine 1.0 (0.5-1.0) MG/DL [facility] Sodium 138 (133-145) MMOL/L [facility] Potassium 4.9 (3.6-5.2) MMOL/L [facility] Chloride 101 (98-107) MMOL/L [facility] Bicarbonate (CO2) 27 (22-29) MMOL/L [facility] Anion Gap 10 (4-17) [facility] Albumin 4.2 (3.4-4.8) GM/DL [facility] Calcium 9.1 (8.6-10.5) MG/DL [facility] Phosphorus, Serum 3.4 (2.5-4.5) MG/DL [facility] Est GFR Non 66 ML/MIN/1.7 3 M2 [facility] Comment: Creatinine based estimated glomerular filtration (eGFR) in adults is calculated using the National Kidney Foundation recommended 2020 CKD-EPI equation. Estimates GFR from serum creatinine, age and sex. Testing performed or reported by [facility], a Service of [address] [address] Luis A Bailey MD, Outdoor Adventure Leader CLIA# [id number] Blood (Blood, Venous) 06/08/2023 8:36 AM EST 06/08/2023 8:39 AM EST Arlene CARTER LAB BLOOD ORDERABLES Final Re sult Performing Organization Address [facility] de Phone Number [facility] * Magnesium (06/08/2023 8:36 AM EST) Magnesium 2.1 (1.6-2.3) mg/dL [facility] Comment: Testing performed or reported by [facility], a Service of [facility], [address] [place] [address] Luis A Bailey MD, Outdoor Adventure Leader CLIA# [id number] Blood (Blood, Venous) 06/08/2023 8:36 AM EST 06/08/2023 8:39 AM EST Arlene CARTER LAB BLOOD ORDERABLES Final Re sult Performing Organization Address [facility] de Phone Number [facility] * (ABNORMAL) Hemoglobin A1c (06/08/2023 8:36 AM EST) Hemoglobin A1C 7.2(H) (4.0-5.6) % [facility] Comment: MONITORING: In known diabetic patients, hemoglobin A1c targets should be discussed with health care provider. DIAGNOSTIC USE: ??The [place] Diabetes Association (ADA) and the World [...] performed or reported by [facility], a Service of [facility], [address] [place] [address] Luis A Bailey MD, Outdoor Adventure Leader [facility]# [id number] Blood (Blood, Venous) 06/08/2023 8:36 AM EST 06/08/2023 8:38 AM EST us Arlene CARTER LAB BLOOD ORDERABLES Final Re sult [facility] * (ABNORMAL) CBC and differential (06/08/2023 8:36 AM EST) White Blood Cells 5.2 (4.0-11.0 ) K/MM3 [facility] RBC 5.08 (4.20-5.4 0) M/MM3 [facility] Hgb 10.1(L) (11.7-15. 5) GM/DL [facility] Hematocrit 32.9(L) (35.7-45. 8) % [facility] MCV 64.8(L) (80.0-100 .0) FL [facility] MCH 19.9(L) (27.0-34. 0) PG [facility] MCHC 30.7(L) (33.0-37. 0) g/dL [facility] Platelets 191 (150-460) K/MM3 [facility] RDW-SD 40.3 (<47.0) FL [facility] MPV NOT MEASURED (9.4-12.4 ) FL [facility] nRBC Count 0.0 #/100 WBC'S [facility] NRBC Absolute 0.0 K/MM3 [facility] Neutrophils Abs Auto 3.5 (1.3-7.0) K/MM3 [facility] Lymphocytes Relative 1.3 (0.8-3.1) K/MM3 [facility] Monocytes 0.3(L) (0.4-0.9) K/MM3 [facility] Eosinophils Relative 0.1 (0.0-0.4) K/MM3 [facility] Basophil ABS 0.0 (0.0-0.1) K/MM3 [facility] Granulocytes Absolute 0.0 K/MM3 [facility] Neutrophils % Auto 67.3 (44-76) % [facility] Lymphs 24.0 (15-43) % [facility] Monocytes Absolute 5.8 (4.5-10.5 ) % [facility] Eosinophils 1.7 (0-6) % [facility] Basophils Relative 0.8 (0-2) % [facility] Immature Granulocytes 0.4 % [facility] Comment: Testing performed or reported by [facility], a Service of [facility], [address] [place] [address] Luis A Bailey MD, Outdoor Adventure Leader [facility]# [id number] Blood (Blood, Venous) 06/08/2023 8:36 AM EST 06/08/2023 8:38 AM EST Arlene CARTER LAB BLOOD ORDERABLES Final Re sult [facility] documented in this encounter Visit Diagnoses Diagnosis Chronic kidney disease, stage 2 (mild) Essential (primary) hypertension Anemia in chronic kidney disease Antiphospholipid syndrome (HCC) Type 2 diabetes mellitus, not otherwise specified (HCC) Bleeding hemorrhoids documented in this encounter Care Teams Rn Manager Relationship Specialty Start Date End Date Sahra Son MD [address] [address] PCP - General Internal Medicine 10/28/22 documented as of this encounter
--- OUTSIDE RECORDS SUMMARY | 2024-08-29 10:34 | XMS_ITS | Encounter Summary ---
Author Organization [facility] Address [address] [place] [address] Phone Care Team Providers Care Marketing Proposal Coordinator Name Role Phone Sahra Son MD Primary Care Provider + Encounter Details Date Type Department Care Team ([facility] Contact Info) Description 10/07/2021 Documentation Only [facility] [address] [place] [address] India Davalos [address] [place] [address] Social History Tobacco Use Types [...] [facility] [address] [place] [address] Barry Reyes MD [address] [place] [address] [place] [address] documented as of this encounter Visit Diagnoses Not on filedocumented in this encounter Care Teams Marketing Proposal Coordinator Relationship Specialty Start Date End Date Sahra Son MD [address] [address] PCP - General Internal Medicine 10/28/22 documented as of this encounter
--- OUTSIDE RECORDS SUMMARY | 2024-08-29 10:34 | XMS_ITS | Encounter Summary ---
Author Organization [facility] Address [address] [place] [address] Phone Care Team Providers Care Letter Sorting Machine Operator Name Role Phone Sahra Son MD Primary Care Provider + Encounter Details Date Type Department Care Team ([facility] Contact Info) Description 03/11/2023 Documentation Only [facility] [address] [place] [address] India Davalos [address] [place] [address] Social History Tobacco Use Types [...] Date Type Department Care Team ([facility] Contact Info) Description 11/23/2024 12:50 PM EDT Office Visit [facility] [address] [place] [address] Barry Reyes MD [address] [place] [address] [place] [address] documented as of this encounter Visit Diagnoses Not on filedocumented in this encounter Care Teams Letter Sorting Machine Operator Relationship Specialty Start Date End Date Sahra Son MD [address] [address] PCP - General Internal Medicine 10/28/22 documented as of this encounter
--- OUTSIDE RECORDS SUMMARY | 2024-08-29 10:34 | XMS_ITS | Encounter Summary ---
Author Organization [facility] Address [address] [place] [address] Phone Care Team Providers Care Pleasure Craft Sailor Name Role Phone Sahra Son MD Primary Care Provider + Encounter Details Date Type Department Care Team ([facility] Contact Info) Description 08/22/2021 Documentation Only [facility] [address] [place] [address] India Davalos 2[address] [place], [place] [...] [facility] [address] [place] [address] Barry Reyes MD [address] [place] [address] [place] [address] documented as of this encounter Visit Diagnoses Not on filedocumented in this encounter Care Teams Pleasure Craft Sailor Relationship Specialty Start Date End Date Sahra Son MD [address] [address] PCP - General Internal Medicine 10/28/22 documented as of this encounter
--- OUTSIDE RECORDS SUMMARY | 2024-08-29 10:34 | XMS_ITS | Encounter Summary ---
Author Organization [facility] Address [address] [place] [address] Phone Care Team Providers Care Agricultural Equipment Design Engineer Name Role Phone Sahra Son MD Primary Care Provider + Encounter Details Date Type Department Care Team ([facility] Contact Info) Description 03/23/2024 Documentation Only [facility] Of [address] [place] [address] India Davalos [address] [place] [address] Social History Tobacco Use Types [...] [facility] [address] [place] [address] Barry Reyes MD [address] [place] [address] [place] [address] documented as of this encounter Visit Diagnoses Not on filedocumented in this encounter Care Teams Agricultural Equipment Design Engineer Relationship Specialty Start Date End Date Sahra Son MD [address] [address] PCP - General Internal Medicine 10/28/22 documented as of this encounter
--- OUTSIDE RECORDS SUMMARY | 2024-08-29 10:34 | XMS_ITS | Encounter Summary ---
Author Organization [facility] Address [address] [place] [address] Phone Care Team Providers Care Teaching Music Lessons Name Role Phone Sahra Son MD Primary Care Provider + Encounter Details Date Type Department Care Team ([facility] Contact Info) Description 11/11/2023 Documentation Only [facility] Of [address] [place] [address] India Davalos [address] [place] [address] Social History Tobacco Use Types [...] [facility] [address] [place] [address] Barry Reyes MD [address] [place] [address] [place] [address] documented as of this encounter Visit Diagnoses Not on filedocumented in this encounter Care Teams Teaching Music Lessons Relationship Specialty Start Date End Date Sahra Son MD [address] [address] PCP - General Internal Medicine 10/28/22 documented as of this encounter
--- OUTSIDE RECORDS SUMMARY | 2024-08-29 10:34 | XMS_ITS | Encounter Summary ---
Author Organization [facility] Address [address] [place] [address] Phone Care Team Providers Care Supervisor Toy Assembly Name Role Phone Sahra Son MD Primary Care Provider + Encounter Details Date Type Department Care Team ([facility] Contact Info) Description 07/16/2023 Documentation Only [facility] Of [address] [place] [address] India Davalos [address] [place], [place] [...] [facility] [address] [place] [address] Barry Reyes MD [address] [place] [address] [place] [address] documented as of this encounter Visit Diagnoses Not on filedocumented in this encounter Care Teams Supervisor Toy Assembly Relationship Specialty Start Date End Date Sahra Son MD [address] [address] PCP - General Internal Medicine 10/28/22 documented as of this encounter
--- OUTSIDE RECORDS SUMMARY | 2024-08-29 10:34 | XMS_ITS | Encounter Summary ---
Author Organization [facility] Address [address] [place] [address] Phone Care Team Providers Care Car Scrubber Name Role Phone Sahra Son MD Primary Care Provider + Encounter Details Date Type Department Care Team ([facility] Contact Info) Description 11/19/2023 Documentation Only [facility] Of [address] [place] [address] India Davalos [address] [place] [address] Social History Tobacco Use [...] [facility] [address] [place] [address] Barry Reyes MD [address] [place] [address] [place] [address] documented as of this encounter Visit Diagnoses Not on filedocumented in this encounter Care Teams Car Scrubber Relationship Specialty Start Date End Date Sahra Son MD [address] [address] PCP - General Internal Medicine 10/28/22 documented as of this encounter
--- OUTSIDE RECORDS SUMMARY | 2024-08-29 10:34 | XMS_ITS | Encounter Summary ---
Author Organization [facility] Address [address] [place] [address] Phone Care Team Providers Care Mangle Press Catcher Name Role Phone Sahra Son MD Primary Care Provider + Encounter Details Date Type Department Care Team ([facility] Contact Info) Description 12/31/2023 Documentation Only [facility] Of [address] [place] [address] India Davalos [address] [place] [address] Social History Tobacco Use Types [...] [facility] [address] [place] [address] Barry Reyes MD [address] [place] [address] [place] [address] documented as of this encounter Visit Diagnoses Not on filedocumented in this encounter Care Teams Mangle Press Catcher Relationship Specialty Start Date End Date Sahra Son MD [address] [address] PCP - General Internal Medicine 10/28/22 documented as of this encounter
--- OUTSIDE RECORDS SUMMARY | 2024-08-29 10:34 | XMS_ITS | Encounter Summary ---
Author Organization [facility] Address [address] [place] [address] Phone Care Team Providers Care Tile Mason Name Role Phone Sahra Son MD Primary Care Provider + Encounter Details Date Type Department Care Team ([facility] Contact Info) Description 11/11/2023 Documentation Only [facility] [address] [place] [address] India Davalos [address] [place] [address] Social History Tobacco Use Types [...] [facility] [address] [place] [address] Barry Reyes MD [address] [place] [address] [place] [address] documented as of this encounter Visit Diagnoses Not on filedocumented in this encounter Care Teams Tile Mason Relationship Specialty Start Date End Date Sahra Son MD [address] [address] PCP - General Internal Medicine 10/28/22 documented as of this encounter
--- OUTSIDE RECORDS SUMMARY | 2024-08-29 10:34 | XMS_ITS | Encounter Summary ---
Author Organization [facility] Address [address] [place] [address] Phone Care Team Providers Care Engineer Assistant Name Role Phone Sahra Son MD Primary Care Provider + Encounter Details Date Type Department Care Team ([facility] Contact Info) Description 11/11/2023 Documentation Only [facility] [address] [place] [address] India Davalos [address] [place], [place] [...] [facility] [address] [place] [address] Barry Reyes MD [address] [place] [address] [place] [address] documented as of this encounter Visit Diagnoses Not on filedocumented in this encounter Care Teams Engineer Assistant Relationship Specialty Start Date End Date Sahra Son MD [address] [address] PCP - General Internal Medicine 10/28/22 documented as of this encounter
--- OUTSIDE RECORDS SUMMARY | 2024-08-29 10:34 | XMS_ITS | Encounter Summary ---
Author Organization [facility] Address [address] [place] [address] Phone Care Team Providers Care Scrap Sawyer Name Role Phone Sahra Son MD Primary Care Provider + Encounter Details Date Type Department Care Team ([facility] Contact Info) Description 12/23/2021 Documentation Only [facility] [address] [place] [address] Juan Jose Li MD [address] [place] [address] [place] [address] Social History Tobacco Use Types [...] [facility] [address] [place] [address] Barry Reyes MD [address] [place] [address] [place] [address] documented as of this encounter Visit Diagnoses Not on filedocumented in this encounter Care Teams Scrap Sawyer Relationship Specialty Start Date End Date Sahra Son MD [address] [address] PCP - General Internal Medicine 10/28/22 documented as of this encounter
--- OUTSIDE RECORDS SUMMARY | 2024-08-29 10:34 | XMS_ITS | Encounter Summary ---
Author Organization [facility] Address [address] [place] [address] Phone Care Team Providers Care Pin Setter Name Role Phone Sahra Son MD Primary Care Provider + Encounter Details Date Type Department Care Team ([facility] Contact Info) Description 01/04/2024 Documentation Only [facility] [address] [place] [address] India Davalos 2[address] [place] [address] Social History Tobacco Use Types [...] [facility] [address] [place] [address] Barry Reyes MD [address] [place] [address] [place] [address] documented as of this encounter Visit Diagnoses Not on filedocumented in this encounter Care Teams Pin Setter Relationship Specialty Start Date End Date Sahra Son MD [address] [address] PCP - General Internal Medicine 10/28/22 documented as of this encounter
--- OUTSIDE RECORDS SUMMARY | 2024-08-29 10:34 | XMS_ITS | Encounter Summary ---
Author Organization [facility] Address [address] [place] [address] Phone Care Team Providers Care Auth Specialist Name Role Phone Sahra Son MD Primary Care Provider + Encounter Details Date Type Department Care Team ([facility] Contact Info) Description 11/17/2023 Documentation Only [facility] [address] [place] [address] India Davalos [address] [place] [address] Social History Tobacco Use Types [...] [facility] [address] [place] [address] Barry Reyes MD [address] [place] [address] [place] [address] documented as of this encounter Visit Diagnoses Not on filedocumented in this encounter Care Teams Auth Specialist Relationship Specialty Start Date End Date Sahra Son MD [address] [address] PCP - General Internal Medicine 10/28/22 documented as of this encounter
--- OUTSIDE RECORDS SUMMARY | 2024-08-29 10:34 | XMS_ITS | Encounter Summary ---
Author Organization [facility] Address [address] [place] [address] Phone Care Team Providers Care Post Adoption Coordinator Name Role Phone Sahra Son MD Primary Care Provider + Encounter Details Date Type Department Care Team ([facility] Contact Info) Description 08/25/2024 Documentation Only [facility] [address] [place] [address] India Davalos [address] [place] [address] Social History Tobacco Use Types [...] [facility] [address] [place] [address] Barry Reyes MD [address] [place] [address] [place] [address] documented as of this encounter Visit Diagnoses Not on filedocumented in this encounter Care Teams Post Adoption Coordinator Relationship Specialty Start Date End Date Sahra Son MD [address] [address] PCP - General Internal Medicine 10/28/22 documented as of this encounter
--- OUTSIDE RECORDS SUMMARY | 2024-08-29 10:34 | XMS_ITS | Encounter Summary ---
Author Organization [facility] Address [address] [place] [address] Phone Care Team Providers Care Melt Supervisor Name Role Phone Sahra Son MD Primary Care Provider + Encounter Details Date Type Department Care Team (Late st Contact Info) Description 06/09/2024 Orders Only [facility] [address] [place] [address] India Davalos [address] [place] [address] Anemia in chronic kidney disease; [...] Visit [facility] [address] [facility] [address] [facility] [place] [address] Barry Reyes MD [address] [facility] [place] [address] documented as of this encounter Visit Diagnoses Diagnosis Anemia in chronic kidney disease Other iron deficiency anemia Chronic kidney disease, stage 2 (mild) documented in this encounter Care Teams Melt Supervisor Relationship Specialty Start Date End Date Sahra Son MD [facility] [place] [address] PCP - General Internal Medicine 10/28/22 documented as of this encounter
--- OUTSIDE RECORDS SUMMARY | 2024-08-29 10:34 | XMS_ITS | Encounter Summary ---
Author Organization [facility] Address [address] [place] [address] Phone Care Team Providers Care News Director Name Role Phone Sahra Son MD Primary Care Provider + Encounter Details Date Type Department Care Team ([facility] Contact Info) Description 11/11/2023 Documentation Only [facility] [address] [place] [address] India Davalos [address] [place] [address] Social History Tobacco Use Types [...] [facility] [address] [place] [address] Barry Reyes MD [address] [place] [address] [place] [address] documented as of this encounter Visit Diagnoses Not on filedocumented in this encounter Care Teams News Director Relationship Specialty Start Date End Date Sahra Son MD [address] [address] PCP - General Internal Medicine 10/28/22 documented as of this encounter
--- OUTSIDE RECORDS SUMMARY | 2024-08-29 10:34 | XMS_ITS | Encounter Summary ---
Author Organization [facility] Address [address] [place] [address] Phone Care Team Providers Care Business Office Specialist Name Role Phone Sahra Son MD Primary Care Provider + Reason for Visit * Reason Onset Date Comments Med Refill 08/24/2024 Encounter Details Date Type Department Care Team (Late Contact Info) Description 08/24/2024 Refill [facility] [address] [place] [address] India Davalos [address] [place] [id number] Social History Tobacco Use Types Packs/Day Years [...] [facility] [address] [place] [address] Barry Reyes MD [address] [place] [address] [place] [address] documented as of this encounter Visit Diagnoses Not on filedocumented in this encounter Care Teams Business Office Specialist Relationship Specialty Start Date End Date Sahra Son MD [address] [address] PCP - General Internal Medicine 10/28/22 documented as of this encounter
--- OUTSIDE RECORDS SUMMARY | 2024-08-29 10:34 | XMS_ITS | Encounter Summary ---
Author Organization [facility] Address [address] [place] [address] Phone Care Team Providers Care Chief Contract Officer Name Role Phone Sahra Son MD Primary Care Provider + Encounter Details Date Type Department Care Team ([facility] Contact Info) Description 04/08/2022 Documentation Only [facility] [address] [place] [address] India Davalos [address] [place] [address] Social History Tobacco Use Types [...] Encounters Date Type Department Care Team ([facility] Contact Info) Description 11/23/2024 12:50 PM EDT Office Visit [facility] [address] [place] [address] Barry Reyes MD [address] [place] [address] [place] [address] documented as of this encounter Visit Diagnoses Not on filedocumented in this encounter Care Teams Chief Contract Officer Relationship Specialty Start Date End Date Sahra Son MD [address] [address] PCP - General Internal Medicine 10/28/22 documented as of this encounter
--- OUTSIDE RECORDS SUMMARY | 2024-08-29 10:34 | XMS_ITS | Encounter Summary ---
Author Organization [facility] Address [address] [place] [address] Phone Care Team Providers Care Librarian Special Collections Name Role Phone Sahra Son MD Primary Care Provider + Encounter Details Date Type Department Care Team (Late Contact Info) Description 02/04/2024 Orders Only [facility] [address] [place] [address] India Davalos [address] [place] [address] Chronic kidney disease, stage 2 [...] Visit [facility] [address] [place] [address] Barry Reyes MD [address] [place] [address] [place] [address] documented as of this encounter [...] Glucose 169(H) 70 - 99 mg/dL [facility] BUN 16 8 - 27 mg/dL [facility] Creatinine 1.00 0.57 - 1.00 mg/dL [facility] eGFR CKD-EPI CR 2020 63 >59 mL/min/1.7 3 [facility] BUN/Creatinine Ratio 16 12 - 28 [facility] Sodium 138 134 - 144 mmol/L [facility] Potassium 4.8 3.5 - 5.2 mmol/L [facility] Chloride 100 96 - 106 mmol/L [facility] Bicarbonate (CO2) 22 20 - 29 mmol/L [facility] Calcium 9.1 8.7 - 10.3 mg/dL [facility] Albumin 4.1 3.9 - 4.9 g/dL [facility] Phosphorus 4.2 3.0 - 4.3 mg/dL [facility] Blood (Blood, Venous) 02/22/2024 8:29 AM EDT 02/22/2024 Barry Reyes MD LAB BLOOD ORDERABLES Final Re sult Performing Organization Address [facility]/ZIP Co de Phone Number [facility] [address] [place] [address] * Ferritin (02/22/2024 8:29 AM EDT) Ferritin 47 15 - 150 ng/mL [facility] Blood (Blood, Venous) 02/22/2024 8:29 AM EDT 02/22/2024 Barry Reyes MD LAB BLOOD ORDERABLES Final Re sult Performing Organization Address [facility] de Phone Number [facility] [address] [place] [address] * (ABNORMAL) Iron Panel (Fe, TIBC, TSAT) (02/22/2024 8:29 AM EDT) Iron 39 27 - 139 ug/dL [facility] TIBC 310 250 - 450 ug/dL [facility] UIBC 271 118 - 369 ug/dL [facility] Iron Saturation (TSat) 13(L) 15 - 55 % [facility] Blood (Blood, Venous) 02/22/2024 8:29 AM EDT 02/22/2024 Barry Reyes MD LAB BLOOD ORDERABLES Final Re sult Performing Organization Address City/[facility]/ZIP Co de Phone Number [facility] [address] [place] [address] * (ABNORMAL) CBC and Differential (02/22/2024 8:29 AM EDT) [facility] Signature WBC 5.9 3.4 - 10.8 x10E3/uL [facility] RBC 5.33(H) 3.77 - 5.28 x10E6/uL [facility] Hemoglobin 10.3(L) 11.1 - 15.9 g/dL [facility] Hematocrit 35.1 34.0 - 46.6 % [facility] MCV 66(L) 79 - 97 fL [facility] MCH 19.3(L) 26.6 - 33.0 pg [facility] MCHC 29.3(L) 31.5 - 35.7 g/dL [facility] RDW 19.3(H) 11.7 - 15.4 % [facility] Platelets 174 150 - 450 x10E3/uL [facility] Neutrophils Relative 71 Not Estab. % [facility] Lymphocytes Relative 21 Not Estab. % [facility] Monocytes 5 Not Estab. % [facility] Eosinophils Relative 1 Not Estab. % [facility] Basophils Relative 1 Not Estab. % [facility] Neutrophils Absolute 4.2 1.4 - 7.0 x10E3/uL [facility] Lymphocytes Absolute 1.3 0.7 - 3.1 x10E3/uL [facility] Monocytes Absolute 0.3 0.1 - 0.9 x10E3/uL [facility] Eosinophils Absolute 0.1 0.0 - 0.4 x10E3/uL [facility] Basophils Absolute 0.0 0.0 - 0.2 x10E3/uL [facility] Immature Granulocytes 1 Not Estab. % [facility] Immature Grans (Absolute) 0.0 0.0 - 0.1 x10E3/uL [facility] Blood (Blood, Venous) 02/22/2024 8:29 AM EDT 02/22/2024 us Barry Reyes MD LAB BLOOD ORDERABLES Final Re sult [facility] [address] [place] [address] documented in this encounter Visit Diagnoses Diagnosis Chronic kidney disease, stage 2 (mild) Anemia in chronic kidney disease Iron deficiency anemia, not otherwise specified documented in this encounter Care Teams Librarian Special Collections Relationship Specialty Start Date End Date Sahra Son MD [address] [place] [address] PCP - General Internal Medicine 10/28/22 documented as of this encounter
--- OUTSIDE RECORDS SUMMARY | 2024-08-29 10:34 | XMS_ITS | Encounter Summary ---
Author Organization [facility] Address [address] [place] [address] Phone Care Team Providers Care Rn Clinical Research Name Role Phone Sahra Son MD Primary Care Provider + Encounter Details Date Type Department Care Team (Late Contact Info) Description 08/18/2024 Orders Only [facility] [address] [place] [address] India Davalos [address] [place] [address] Chronic kidney disease, stage 2 [...] [facility]plant [facility] [address] [place] [address] Barry Reyes MD [address] [place] [address] [place] [address] documented as of this encounter Visit Diagnoses Diagnosis Chronic kidney disease, stage 2 (mild) Anemia in chronic kidney disease Iron deficiency anemia, not otherwise specified documented in this encounter Care Teams Rn Clinical Research Relationship Specialty Start Date End Date Sahra Son MD [facility] [place] [address] PCP - General Internal Medicine 10/28/22 documented as of this encounter
--- OUTSIDE RECORDS SUMMARY | 2024-08-29 10:34 | XMS_ITS | Encounter Summary ---
Author Organization [facility] Address [address] [place] [address] Phone Care Team Providers Care Cloth Dyer Name Role Phone Sahra Son MD Primary Care Provider + Encounter Details Date Type Department Care Team ([facility] Contact Info) Description 11/11/2023 Documentation Only [facility] [address] [place] [address] India Davalos [address] [place] [address] Social History Tobacco Use Types [...] [facility] [address] [place] [address] Barry Reyes MD [address] [place] [address] [place] [address] documented as of this encounter Visit Diagnoses Not on filedocumented in this encounter Care Teams Cloth Dyer Relationship Specialty Start Date End Date Sahra Son MD [address] [address] PCP - General Internal Medicine 10/28/22 documented as of this encounter
--- OUTSIDE RECORDS SUMMARY | 2024-08-29 10:34 | XMS_ITS | Encounter Summary ---
Author Organization [facility] Address [address] [place] [address] Phone Care Team Providers Care Back Hanger Name Role Phone Sahra Son MD Primary Care Provider + Encounter Details Date Type Department Care Team (Late st Contact Info) Description 01/31/2024 Orders Only [facility] [address] [place] [address] Arlene Alston PA Chronic kidney [...] Visit [facility] [address] [place] [address] Barry Reyes MD [address] [facility] [place] [address] documented as of this encounter Visit Diagnoses Diagnosis Chronic kidney disease, stage 2 (mild) Essential (primary) hypertension Iron deficiency anemia, not otherwise specified Type 2 diabetes mellitus, not otherwise specified (HCC) Antiphospholipid syndrome (HCC) documented in this encounter Care Teams Back Hanger Relationship Specialty Start Date End Date aShra Son MD [address] [place] [address] PCP - General Internal Medicine 10/28/22 documented as of this encounter
--- OUTSIDE RECORDS SUMMARY | 2024-08-29 10:34 | XMS_ITS | Encounter Summary ---
Author Organization [facility] Address [address] [place] [address] Phone Care Team Providers Care Exotic Dancer Name Role Phone Sahra Son MD Primary Care Provider + Encounter Details Date Type Department Care Team ([facility] Contact Info) Description 04/14/2022 Documentation Only [facility] [address] [place] [address] India Davalos [address] [place] [address] Social History Tobacco Use Types [...] Upcoming Encounters Date Type Department Care Team ([facility] Contact Info) Description 11/23/2024 12:50 PM EDT Office Visit [facility] [address] [place] [address] Barry Reyes MD [address] [place] [address] [place] [address] documented as of this encounter Visit Diagnoses Not on filedocumented in this encounter Care Teams Exotic Dancer Relationship Specialty Start Date End Date Sahra Son MD [address] [address] PCP - General Internal Medicine 10/28/22 documented as of this encounter
--- OUTSIDE RECORDS SUMMARY | 2024-08-29 10:34 | XMS_ITS | Encounter Summary ---
Author Organization [facility] Address [address] [place] [address] Phone Care Team Providers Care Mercerizer Name Role Phone Sahra Son MD Primary Care Provider + Encounter Details Date Type Department Care Team (Late Contact Info) Description 06/30/2020 Orders Only [facility] [address] [place] [place] [address] Carol Whelan [address] [place] [address] Iron deficiency anemia, not otherwise [...] Visit [facility] [address] [place] [address] Barry Reyes MD [address] [facility] [place] [address] documented as of this encounter Visit Diagnoses Diagnosis Iron deficiency anemia, not otherwise specified Chronic kidney disease, Stage II (mild) documented in this encounter Care Teams Mercerizer Relationship Specialty Start Date End Date Sahra Son MD [address] [place] [address] PCP - General Internal Medicine 10/28/22 documented as of this encounter
--- OUTSIDE RECORDS SUMMARY | 2024-08-29 10:34 | XMS_ITS | Encounter Summary ---
Author Organization [facility] Address [address] [place] [address] Phone Care Team Providers Care Child Care Specialist Name Role Phone Sahra Son MD Primary Care Provider + Encounter Details Date Type Department Care Team ([facility] Contact Info) Description 08/27/2021 Documentation Only [facility] [address] [place] [address] India Davalos [address] [place] [address] Social History Tobacco Use Types [...] [facility] [address] [place] [address] Barry Reyes MD [address] [place] [address] [place] [address] documented as of this encounter Visit Diagnoses Not on filedocumented in this encounter Care Teams Child Care Specialist Relationship Specialty Start Date End [place] [address] [address] PCP - General Internal Medicine 10/28/22 documented as of this encounter
--- OUTSIDE RECORDS SUMMARY | 2024-08-29 10:34 | XMS_ITS | Encounter Summary ---
Author Organization [facility] Address [address] [place] [address] Phone Care Team Providers Care Debridging Machine Operator Name Role Phone Sahra Son MD Primary Care Provider + Encounter Details Date Type Department Care Team ([facility] Contact Info) Description 08/28/2024 Documentation Only [facility] Of [address] [place] [address] India Davalos [address] [place] [address] Social History Tobacco Use [...] [facility] [address] [place] [address] Barry Reyes MD [address] [place] [address] [place] [address] documented as of this encounter Visit Diagnoses Not on filedocumented in this encounter Care Teams Debridging Machine Operator Relationship Specialty Start Date End Date Sahra Son MD [address] [address] PCP - General Internal Medicine 10/28/22 documented as of this encounter
--- OUTSIDE RECORDS SUMMARY | 2024-08-29 10:34 | XMS_ITS | Encounter Summary ---
Author Organization [facility] Address [address] [place] [address] Phone Care Team Providers Care Engraver Automatic Name Role Phone Sahra Son MD Primary Care Provider + Encounter Details Date Type Department Care Team ([facility] Contact Info) Description 11/30/2023 Documentation Only [facility] [address] [place] [address] India Davalos [address] [place] [address] Social History Tobacco Use Types [...] [facility] [address] [place] [address] Barry Reyes MD [address] [place] [address] [place] [address] documented as of this encounter Visit Diagnoses Not on filedocumented in this encounter Care Teams Engraver Automatic Relationship Specialty Start Date End Date Sahra Son MD [address] [address] PCP - General Internal Medicine 10/28/22 documented as of this encounter
--- OUTSIDE RECORDS SUMMARY | 2024-08-29 10:34 | XMS_ITS | Encounter Summary ---
Author Organization [facility] Address [address] [place] [address] Phone Care Team Providers Care House Repairer Name Role Phone Sahra Son MD Primary Care Provider + Encounter Details Date Type Department Care Team ([facility] Contact Info) Description 03/11/2023 Documentation Only [facility] [address] [place] [address] India Davalos [address] [place] [address] Social History Tobacco Use Types [...] Upcoming Encounters Date Type Department Care Team ([facility] Contact Info) Description 11/23/2024 12:50 PM EDT Office Visit [facility] [address] [place] [address] Barry Reyes MD [address] [place] [address] [place] [address] documented as of this encounter Visit Diagnoses Not on filedocumented in this encounter Care Teams House Repairer Relationship Specialty Start Date End Date Sahra Son MD [address] [address] PCP - General Internal Medicine 10/28/22 documented as of this encounter
--- OUTSIDE RECORDS SUMMARY | 2024-08-29 10:34 | XMS_ITS | Encounter Summary ---
Author Organization [facility] Address [address] [place] [address] Phone Care Team Providers Care E Commerce Analyst Name Role Phone Sahra Son MD Primary Care Provider + Encounter Details Date Type Department Care Team ([facility] Contact Info) Description 08/11/2022 Documentation Only [facility] [address] [place] [address] India Davalos [address] [place] [address] Social History Tobacco Use Types [...] [facility] [address] [place] [address] Barry Reyes MD [address] [place] [address] [place] [address] documented as of this encounter Visit Diagnoses Not on filedocumented in this encounter Care Teams E Commerce Analyst Relationship Specialty Start Date End Date Sahra Son MD [address] [address] PCP - General Internal Medicine 10/28/22 documented as of this encounter
--- OUTSIDE RECORDS SUMMARY | 2024-08-29 10:34 | XMS_ITS | Encounter Summary ---
Author Organization [facility] Address [address] [place] [address] Phone Care Team Providers Care Net Repairer Name Role Phone Sahra Son MD Primary Care Provider + Encounter Details Date Type Department Care Team ([facility] Contact Info) Description 11/11/2023 Documentation Only [facility] [address] [place] [address] India Davalos [address] [place] [address] Social History Tobacco Use Types [...] [facility] [address] [place] [address] Barry Reyes MD [address] [place] [address] [place] [address] documented as of this encounter Visit Diagnoses Not on filedocumented in this encounter Care Teams Net Repairer Relationship Specialty Start Date End Date Sahra Son MD [address] [address] PCP - General Internal Medicine 10/28/22 documented as of this encounter
--- OUTSIDE RECORDS SUMMARY | 2024-08-29 10:34 | XMS_ITS | Encounter Summary ---
Author Organization [facility] Address [address] [place] [address] Phone Care Team Providers Care Brake Holder Name Role Phone Sahra Son MD Primary Care Provider + Encounter Details Date Type Department Care Team (Late [facility] Contact Info) Description 07/07/2024 Orders Only [facility] [address] [place] [address] India Davalos [address] [place] [address] Anemia in chronic kidney disease; [...] Visit [facility] [address] [place] [address] Barry Reyes MD [address] [facility] [address] [place] [address] documented as of this encounter Visit Diagnoses Diagnosis Anemia in chronic kidney disease Other iron deficiency anemia Chronic kidney disease, stage 2 (mild) documented in this encounter Care Teams Brake Holder Relationship Specialty Start Date End Date Sahra Son MD [facility] [place] [address] PCP - General Internal Medicine 10/28/22 documented as of this encounter
--- OUTSIDE RECORDS SUMMARY | 2024-08-29 10:34 | XMS_ITS | Encounter Summary ---
Author Organization [facility] Address [address] [place] [address] Phone Care Team Providers Care Manager Heart Name Role Phone Sahra Son MD Primary Care Provider + Encounter Details Date Type Department Care Team ([facility] Contact Info) Description 06/09/2023 Documentation Only [facility] [address] [place] [address] India Davalos [address] [place] [address] Social History Tobacco Use Types [...] [facility] [address] [place] [address] Barry Reyes MD [address] [place] [address] [place] [address] documented as of this encounter Visit Diagnoses Not on filedocumented in this encounter Care Teams Manager Heart Relationship Specialty Start Date End Date Sahra Son MD [address] [address] PCP - General Internal Medicine 10/28/22 documented as of this encounter
--- OUTSIDE RECORDS SUMMARY | 2024-08-29 10:34 | XMS_ITS | Encounter Summary ---
Author Organization [facility] Address [address] [place] [address] Phone Care Team Providers Care Internal Control Consultant Name Role Phone Sahra Son MD Primary Care Provider + Encounter Details Date Type Department Care Team ([facility] Contact Info) Description 03/11/2023 Documentation Only [facility] [address] [place] [address] India Davalos [address] [place], [place] [...] Upcoming Encounters Date Type Department Care Team ([facility] Contact Info) Description 11/23/2024 12:50 PM EDT Office Visit [facility] [address] [place] [address] Barry Reyes MD [address] [place] [address] [place] [address] documented as of this encounter Visit Diagnoses Not on filedocumented in this encounter Care Teams Internal Control Consultant Relationship Specialty Start Date End Date Sahra Son MD [address] [address] PCP - General Internal Medicine 10/28/22 documented as of this encounter
--- OUTSIDE RECORDS SUMMARY | 2024-08-29 10:34 | XMS_ITS | Encounter Summary ---
Author Organization [facility] Address [address] [place] [address] Phone Care Team Providers Care Caretaker Grounds Name Role Phone Sahra Son MD Primary Care Provider + Encounter Details Date Type Department Care Team ([facility] [address] Contact Info) Description 08/24/2024 Documentation Only [facility] [address] [place] [address] India Davalos [address] [place] [address] Social History Tobacco Use Types [...] [facility] [address] [place] [place] [address] Barry Reyes MD [address] [place] [address] [place] [address] documented as of this encounter Visit Diagnoses Not on filedocumented in this encounter Care Teams Caretaker Grounds Relationship Specialty Start Date End Date Sahra Son MD [address] [address] PCP - General Internal Medicine 10/28/22 documented as of this encounter
--- OUTSIDE RECORDS SUMMARY | 2024-08-29 10:35 | XMS_ITS | Encounter Summary ---
Author Organization [facility] Address [address] [place] [address] Phone Care Team Providers Care Tree And Shrub Technician Name Role Phone Sahra Son MD Primary Care Provider + Encounter Details Date Type Department Care Team ([facility] Contact Info) Description 08/05/2023 Documentation Only [facility] [address] [place] [address] India Davalos [address] [place] [address] Social History Tobacco Use Types [...] [facility] [address] [place] [address] Barry Reyes MD [address] [place] [address] [place] [address] documented as of this encounter Visit Diagnoses Not on filedocumented in this encounter Care Teams Tree And Shrub Technician Relationship Specialty Start Date End Date Sahra Son MD [address] [address] PCP - General Internal Medicine 10/28/22 documented as of this encounter
--- OUTSIDE RECORDS SUMMARY | 2024-08-29 10:35 | XMS_ITS | Encounter Summary ---
Author Organization [facility] Address [address] [place] [address] Phone Care Team Providers Care Heel Sprayer First Name Role Phone Sahra Sno MD Primary Care Provider + Encounter Details Date Type Department Care Team ([facility] Contact Info) Description 07/03/2021 Documentation Only [facility] [address] [place] [address] Juan Jose Li MD [address] [place] [address] [place] [address] Social History Tobacco Use Types [...] [facility] [address] [place] [address] Barry Reyes MD [address] [place] [address] [place] [address] documented as of this encounter Visit Diagnoses Not on filedocumented in this encounter Care Teams Heel Sprayer First Relationship Specialty Start Date End Date Sahra Son MD [address] [address] PCP - General Internal Medicine 10/28/22 documented as of this encounter
--- OUTSIDE RECORDS SUMMARY | 2024-08-29 10:35 | XMS_ITS | Encounter Summary ---
Author Organization [facility] Address [address] [place] [address] Phone Care Team Providers Care Change Control Analyst Name Role Phone Sahra Son MD Primary Care Provider + Encounter Details Date Type Department Care Team ([facility] Contact Info) Description 10/26/2022 Documentation Only [facility] [address] [place] [address] India Davalos [address] [place], [place] [...] Upcoming Encounters Date Type Department Care Team ([facility] Contact Info) Description 11/23/2024 12:50 PM EDT Office Visit [facility] [address] [place] [address] Barry Reyes MD [address] [place] [address] [place] [address] documented as of this encounter Visit Diagnoses Not on filedocumented in this encounter Care Teams Change Control Analyst Relationship Specialty Start Date End Date Sahra Son MD [address] [address] PCP - General Internal Medicine 10/28/22 documented as of this encounter
--- OUTSIDE RECORDS SUMMARY | 2024-08-29 10:35 | XMS_ITS | Encounter Summary ---
Author Organization [facility] Address [address] [place] [address] Phone Care Team Providers Care Door Captain Name Role Phone Sahra Son MD Primary Care Provider + Encounter Details Date Type Department Care Team ([facility] Contact Info) Description 10/30/2022 Documentation Only [facility] [address] [place] [address] India Davalos [address] [place] [address] Social History Tobacco Use Types [...] ([facility] Contact Info) Description 11/23/2024 12:50 PM EDT Office Visit [facility] [address] [place] [address] Barry Reyes MD [address] [place] [address] [place] [address] documented as of this encounter Visit Diagnoses Not on filedocumented in this encounter Care Teams Door Captain Relationship Specialty Start Date End Date Sahra Son MD [address] [address] PCP - General Internal Medicine 10/28/22 documented as of this encounter
--- OUTSIDE RECORDS SUMMARY | 2024-08-29 10:35 | XMS_ITS | Clinical Summary ---
Author Organization [facility], Address [address] [place] [address] [place] [address] Phone Care Team Providers Care Belt Operator Name Role Phone Sahra Son MD Primary Care Provider + Allergies Active Allergy Reactions Criticality Noted Date Comments Codeine 12/26/2012 Ferumoxytol Shortness of breath,Itching,Other (see comments) High 02/27/2022 Bones hurt Iodinated Contrast Media 07/06/2022 Penicillins 12/26/2012 Other Shellfish Allergy 12/26/2012 Tramadol 07/06/2022 Trazodone 03/08/2018 Iron Sucrose 02/29/2024 Coughing fit infusion stopped at [facility] Medications Cymbalta [address] capsule TK 2 CS PO QAM 12/28/19 20 Active LORazepam (ATIVAN) 1 MG tablet TK 1 T PO BID 12/24/19 20 Active meclizine (ANTIVERT) 25 MG tablet TK 1 T PO TID PRN 12/24/19 20 Active montelukast (SINGULAIR) 10 MG tablet TK 1 T PO QD IN THE DARCY 11/19/19 20 Active Creon 87157-94202 units capsule TK ONE C PO TID [...] minute. No premedication requested. 15 mL 1 08/25/19 25 Active Ferric Carboxymaltose (Injectafer) 750 MG/15ML solution 750 mg for two doses by one week. Slow IVP (undiluted) administration at a rate of approximately 100 mg per minute. No premedication requested. 15 mL 1 04/05/20 24 025 Disconti nued(Reo rder (does not appear on AVS)) Ferric Carboxymaltose (Injectafer) 750 MG/15ML solution 750 mg for two doses by one week. Slow IVP (undiluted) administration at a rate of approximately 100 mg per minute. No premedication requested. 15 mL 1 08/24/19 25 025 Disconti nued(Reo rder (does not appear on AVS)) Ferric Carboxymaltose (Injectafer) 750 MG/15ML solution 750 mg for two doses by one week. Slow IVP (undiluted) administration at a rate of approximately 100 mg per minute. No premedication requested. 15 mL 1 08/24/19 25 025 Disconti nued(Reo rder (does not appear on AVS)) Ferric Carboxymaltose (Injectafer) 750 MG/15ML solution 750 mg for two doses by one week. Slow IVP (undiluted) administration at a rate of approximately 100 mg per minute. No premedication requested. 15 mL 1 08/24/19 25 025 Disconti nued(Reo rder (does not appear on AVS)) Hospital, Clinic, or Other Facility Administered Medication Ordered Dose Route Frequency Start Date End Date Status ferumoxytol (FERAHEME) injection 510 mgIndications:Iron deficiency anemia, not otherwise specified,Chronic kidney disease, Stage II (mild) 510 mg IV Once in dialysis 06/26/2020 Active Active Problems Problem Noted Date Diagnosed Date History of cerebrovascular accident 08/03/2022 Intracranial aneurysm 08/03/2022 Chronic kidney disease, stage 2 (mild) Iron deficiency anemia 09/30/2021 Essential (primary) hypertension [...] Encounters Date Type Department Care Team Description 08/28/2024 Documentation Only [facility] [place] [address] [place] [address] India Davalos 08/25/2024 Documentation Only [facility] [place] [address] [place] [address] [place], [place] 08/24/2024 Documentation Only [facility] [address] [place] [address] [place], [place] 08/24/2024 Refill [facility] [address] [place] [address] [place], [place] 08/23/2024 Refill [facility] [address] [place] [address] [place], [place] 08/23/2024 Refill [facility] [address] [place] [address] [place], [place] 08/18/2024 Office Communication [facility] - [address] [place] [address] Stephanie Azul, LAURITA 08/18/2024 Orders Only [facility] [address] [place] [address] [place], [place] Chronic kidney disease, stage 2 (mild); Anemia in chronic kidney disease; Iron deficiency anemia, not otherwise specified 08/04/2024 Orders Only [facility] [address] [place] [address] [place], [place] Anemia in chronic kidney disease; Other iron deficiency anemia; Chronic kidney disease, stage 2 (mild) 07/21/2024 Orders Only [facility] [address] [place] [address] [place], [place] Chronic kidney disease, stage 2 (mild); Anemia in chronic kidney disease; Iron deficiency anemia, not otherwise specified 07/07/2024 Orders Only [facility] [address] [place] [address] [place], [place] Anemia in chronic kidney disease; Other iron deficiency anemia; Chronic kidney disease, stage 2 (mild) 06/23/2024 Orders Only [facility] [address] [place] [address] [place]oop [place] Chronic kidney disease, stage 2 (mild); Anemia in chronic kidney disease; Iron deficiency anemia, not otherwise specified 06/09/2024 Orders Only [facility] [address] [place] [address] [place]oop [place] Anemia in chronic kidney disease; Other iron deficiency anemia; Chronic kidney disease, stage 2 (mild) 06/05/2024 Telephone [facility] [address] [place] [address] Stephanie Azul, liaison inspection laboratory assistant reminder from Last 3 Months Immunizations Immunization Administration Dates Next Due Hep A / [...] Visit [facility], [address] [place] [address] Barry Reyes MD [address] [facility] [place] [address] Health Maintenance Due Date Last Done Comments Breast Cancer Screening 1960 Colorectal Cancer Screening: Annual FOBT 11/07/2008 Colorectal Cancer Screening: Colonoscopy 11/07/2008 Colorectal Cancer Screening: Sigmoidoscopy 11/07/2008 Pneumococcal Vaccine: 50+ Ye ars (3 of 3 - PCV) 10/19/2012 10/20/2011, 01/03/2007 Diabetes: Ophthalmology Exam 12/08/2022 Diabetes: Pedal Pulse Checked 12/08/2022 Diabetes: Sensory Foot Exam 12/08/2022 Diabetes: Visual Foot Exam 12/08/2022 Diabetes: Hemoglobin A1C 09/07/2023 024, 12/08/2022, 08/14/2022, Additional history exists Influenza Vaccine (Season Ended) 2025 03/22/20 Pneumococcal Vaccine: Peds ( 0 to 5 Years) and At-Risk Patients (6 to 49 Years) Discontinued 10/20/2011, 01/03/2007 Hepatitis B Vaccine Completed 10/27/2023, 07/14/2023, 06/08/2023, Additional history exists Procedures Procedure Name Priority Date/Time Associated Diagnosis Comments RENAL FUNCTION PANEL Routine 08/07/2024 8:15 AM EDT Anemia in chronic kidney disease Other iron deficiency anemia Chronic kidney disease, stage 2 (mild) FERRITIN Routine 08/07/2024 8:15 AM EDT Anemia in chronic kidney disease Other iron deficiency anemia Chronic kidney disease, stage 2 (mild) IRON PANEL (FE, TIBC, TSAT) Routine 08/07/2024 8:15 AM EDT Anemia in chronic kidney disease Other iron deficiency anemia Chronic kidney disease, stage 2 (mild) CBC AND DIFFERENTIAL Routine 08/07/2024 8:15 AM EDT Anemia in chronic kidney disease Other iron deficiency anemia Chronic kidney disease, stage 2 (mild) RENAL FUNCTION PANEL Routine 06/07/2024 11:53 AM [...] Recently Relevant to Health Maintenance Results * (ABNORMAL) Iron Panel (Fe, TIBC, TSAT) (08/07/2024 8:15 AM EDT) Only the most recent of2 resultswithin the time period is included. TIBC 290 250 - 450 ug/dL [facility] UIBC 251 118 - 369 ug/dL [facility] Iron 39 27 - 139 ug/dL [facility] Iron Saturation (TSat) 13(L) 15 - 55 % [facility] Blood (Blood, Venous) 08/07/2024 8:15 AM EDT 08/07/2024 us Barry Reyes MD LAB BLOOD ORDERABLES Final Re sult [facility] [address] [place] [address] * (ABNORMAL) CBC and Differential (08/07/2024 8:15 AM EDT) Only the most recent of2 resultswithin the time period is included. WBC 5.6 3.4 - 10.8 x10E3/uL [facility] RBC 5.41(H) 3.77 - 5.28 x10E6/uL [facility] Hemoglobin 10.7(L) 11.1 - 15.9 g/dL [facility] Hematocrit 36.1 34.0 - 46.6 % [facility] MCV 67(L) 79 - 97 fL [facility] MCH 19.8(L) 26.6 - 33.0 pg [facility] MCHC 29.6(L) 31.5 - 35.7 g/dL [facility] RDW 18.9(H) 11.7 - 15.4 % [facility] Platelets 171 150 - 450 x10E3/uL [facility] Neutrophils Relative 65 Not Estab. % [facility] Lymphocytes Relative 25 Not Estab. % [facility] Monocytes 6 Not Estab. % [facility] Eosinophils Relative 3 Not Estab. % [facility] Basophils Relative 1 Not Estab. % [facility] Neutrophils Absolute 3.6 1.4 - 7.0 x10E3/uL [facility] Lymphocytes Absolute 1.4 0.7 - 3.1 x10E3/uL [facility] Monocytes Absolute 0.4 0.1 - 0.9 x10E3/uL [facility] Eosinophils Absolute 0.2 0.0 - 0.4 x10E3/uL [facility] Basophils Absolute 0.0 0.0 - 0.2 x10E3/uL [facility] Immature Granulocytes 0 Not Estab. % [facility] Immature Grans (Absolute) 0.0 0.0 - 0.1 x10E3/uL [facility] Blood (Blood, Venous) 08/07/2024 8:15 AM EDT 08/07/2024 us Barry Reyes MD LAB BLOOD ORDERABLES Final Re sult [facility] [address] [place] [address] * Ferritin (08/07/2024 8:15 AM EDT) Only the most recent of2 resultswithin the time period is included. Ferritin 55 15 - 150 ng/mL [facility] Blood (Blood, Venous) 08/07/2024 8:15 AM EDT 08/07/2024 Barry Reyes MD LAB BLOOD ORDERABLES Final Re sult [facility] [address] [place] [address] * (ABNORMAL) Renal Function Panel (08/07/2024 8:15 AM EDT) Only the most recent of2 resultswithin the time period is included. Glucose 168(H) 70 - 99 mg/dL [facility] BUN 15 8 - 27 mg/dL [facility] Creatinine 0.93 0.57 - 1.00 mg/dL [facility] eGFR CKD-EPI CR 2020 69 >59 mL/min/1.7 3 [facility] BUN/Creatinine Ratio 16 12 - 28 [facility] Sodium 139 134 - 144 mmol/L [facility] Chloride 103 96 - 106 mmol/L [facility] Bicarbonate (CO2) 24 20 - 29 mmol/L [facility] Calcium 8.8 8.7 - 10.3 mg/dL [facility] Phosphorus 3.8 3.0 - 4.3 mg/dL [facility] Albumin 4.1 3.9 - 4.9 g/dL [facility] Potassium 4.8 3.5 - 5.2 mmol/L [facility] Blood (Blood, Venous) 08/07/2024 8:15 AM EDT 08/07/2024 Barry Reyes MD LAB BLOOD ORDERABLES Final Re sult [facility] [address] [place] [address] * (ABNORMAL) Hemoglobin A1c (06/08/2023 8:36 AM EST) Hemoglobin A1C 7.2(H) (4.0-5.6) % [facility] Comment: MONITORING: In known diabetic patients, hemoglobin A1c targets should be discussed with health care provider. DIAGNOSTIC USE: ??The [place] Diabetes Association (ADA) and the World Health [...] Supplement 1 Testing performed or reported by [facility], [facility], a Service of [facility], [address] [place] [address] Luis A Bailey MD, Addiction Specialist [facility]# [id number] Blood (Blood, Venous) 06/08/2023 8:36 AM EST 06/08/2023 8:38 AM EST us Arlene CARTER LAB BLOOD ORDERABLES Final Re sult [facility] from Last 3 Months or Most Recently Relevant to Health Maintenance Insurance [id number] One Care Dual SNP ([id number]) [place] MANCINI [id number] Care Teams Belt Operator Relationship Specialty Start Date End Date Sahra Son MD [address] [place] [address] PCP - General Internal Medicine 10/28/22
--- OUTSIDE RECORDS SUMMARY | 2024-08-29 10:35 | XMS_ITS | Encounter Summary ---
Author Organization [facility] Address [address] [place] [address] Phone Care Team Providers Care Dock Superintendent Name Role Phone Sahra Son MD Primary Care Provider + Encounter Details Date Type Department Care Team ([facility] Contact Info) Description 08/09/2023 Documentation Only [facility] [address] [place] [address] India Davalos [address] [place] [address] Social History Tobacco Use Types [...] [facility] [address] [place] [address] Barry Reyes MD [address] [place] [address] [place] [address] documented as of this encounter Visit Diagnoses Not on filedocumented in this encounter Care Teams Dock Superintendent Relationship Specialty Start Date End Date Sahra Son MD [address] [address] PCP - General Internal Medicine 10/28/22 documented as of this encounter
--- OUTSIDE RECORDS SUMMARY | 2024-08-29 10:35 | XMS_ITS | Encounter Summary ---
Author Organization [facility] Address [address] [place] [address] Phone Care Team Providers Care Felt Hat Mellowing Machine Operator Name Role Phone Sahra Son MD Primary Care Provider + Encounter Details Date Type Department Care Team ([facility] Contact Info) Description 12/24/2022 Documentation Only [facility] [address] [address] Carol Whelan [address] [place] [address] Social History Tobacco Use Types [...] Visit [facility] [address] [address] Barry Reyes MD [address] [facility] [place] [address] documented as of this encounter Visit Diagnoses Not on filedocumented in this encounter Care Teams Felt Hat Mellowing Machine Operator Relationship Specialty Start Date End Date Sahra Son MD [address] [address] PCP - General Internal Medicine 10/28/22 documented as of this encounter
--- OUTSIDE RECORDS SUMMARY | 2024-08-29 10:35 | XMS_ITS | Encounter Summary ---
Author Organization [facility] Address [address] [place] [address] Phone Care Team Providers Care Ambulance Mechanic Name Role Phone Sahra Son MD Primary Care Provider + Encounter Details Date Type Department Care Team (Late Contact Info) Description 05/26/2024 Orders Only [facility] [address] [place] [address] India Davalos [address] [place] [address] Chronic kidney disease, stage 2 [...] Visit [facility] [address] [place] [address] Barry Reyes MD [address] [place] [address] [place] [address] documented as of this encounter [...] Glucose 168(H) 70 - 99 mg/dL [facility] BUN 17 8 - 27 mg/dL [facility] Creatinine 1.09(H) 0.57 - 1.00 mg/dL [facility] eGFR CKD-EPI CR 2020 57(L) >59 mL/min/1.7 3 [facility] BUN/Creatinine Ratio 16 12 - 28 [facility] Sodium 137 134 - 144 mmol/L [facility] Potassium 4.8 3.5 - 5.2 mmol/L [facility] Chloride 99 96 - 106 mmol/L [facility] Bicarbonate (CO2) 23 20 - 29 mmol/L [facility] Calcium 9.0 8.7 - 10.3 mg/dL [facility] Albumin 4.2 3.9 - 4.9 g/dL [facility] Phosphorus 4.4(H) 3.0 - 4.3 mg/dL [facility] Blood (Blood, Venous) 06/07/2024 11:53 AM EST 06/07/2024 Barry Reyes MD LAB BLOOD ORDERABLES Final Re sult Performing Organization Address City/[facility]/ZIP Co de Phone Number [facility] [address] [place] [address] * Ferritin (06/07/2024 11:53 AM EST) Ferritin 102 15 - 150 ng/mL [facility] Blood (Blood, Venous) 06/07/2024 11:53 AM EST 06/07/2024 Barry Reyes MD LAB BLOOD ORDERABLES Final Re sult Performing Organization Address [facility] de Phone Number [facility] [address] [place] [address] * Iron Panel (Fe, TIBC, TSAT) (06/07/2024 11:53 AM EST) TIBC 262 250 - 450 ug/dL [facility] UIBC 205 118 - 369 ug/dL [facility] Iron 57 27 - 139 ug/dL [facility] Iron Saturation (TSat) 22 15 - 55 % [facility] Blood (Blood, Venous) 06/07/2024 11:53 AM EST 06/07/2024 Barry Reyes MD LAB BLOOD ORDERABLES Final Re sult Performing Organization Address [facility]/ZIP Co de Phone Number [facility] [address] [place] [address] * (ABNORMAL) CBC and Differential (06/07/2024 11:53 AM EST) [facility] WBC 5.5 3.4 - 10.8 x10E3/uL [facility] RBC 5.76(H) 3.77 - 5.28 x10E6/uL [facility] Hemoglobin 11.1 11.1 - 15.9 g/dL [facility] Hematocrit 38.4 34.0 - 46.6 % [facility] MCV 67(L) 79 - 97 fL [facility] MCH 19.3(L) 26.6 - 33.0 pg [facility] MCHC 28.9(L) 31.5 - 35.7 g/dL [facility] RDW 18.8(H) 11.7 - 15.4 % [facility] Platelets 162 150 - 450 x10E3/uL [facility] Neutrophils Relative 59 Not Estab. % [facility] Lymphocytes Relative 31 Not Estab. % [facility] Monocytes 6 Not Estab. % [facility] Eosinophils Relative 2 Not Estab. % [facility] Basophils Relative 1 Not Estab. % [facility] Neutrophils Absolute 3.3 1.4 - 7.0 x10E3/uL [facility] Lymphocytes Absolute 1.7 0.7 - 3.1 x10E3/uL [facility] Monocytes Absolute 0.3 0.1 - 0.9 x10E3/uL [facility] Eosinophils Absolute 0.1 0.0 - 0.4 x10E3/uL [facility] Basophils Absolute 0.0 0.0 - 0.2 x10E3/uL [facility] Immature Granulocytes 1 Not Estab. % [facility] Immature Grans (Absolute) 0.0 0.0 - 0.1 x10E3/uL [facility] Blood (Blood, Venous) 06/07/2024 11:53 AM EST 06/07/2024 us Barry Reyes MD LAB BLOOD ORDERABLES Final Re sult [facility] [address] [place] [address] documented in this encounter Visit Diagnoses Diagnosis Chronic kidney disease, stage 2 (mild) Anemia in chronic kidney disease Iron deficiency anemia, not otherwise specified documented in this encounter Care Teams Ambulance Mechanic Relationship Specialty [place] [address] [place] [address] PCP - General Internal Medicine 10/28/22 documented as of this encounter
--- OUTSIDE RECORDS SUMMARY | 2024-08-29 10:35 | XMS_ITS | Encounter Summary ---
Author Organization [facility] Address [address] [place] [address] Phone Care Team Providers Care Web Development Director Name Role Phone Sahra Son MD Primary Care Provider + Encounter Details Date Type Department Care Team (Late Contact Info) Description 08/04/2024 Orders Only [facility] [address] [place] [address] India Davalos [address] [place] [address] Anemia in chronic kidney disease; [...] [facility] [address] [place] [address] Barry Reyes MD [address] [place] [address] [place] [address] documented as of this encounter Procedures Procedure Name Priority Date/Time Associated Diagnosis Comments IRON PANEL (FE, TIBC, TSAT) Routine 08/07/2024 [...] stage 2 (mild) RENAL FUNCTION PANEL Routine 08/07/2024 8:15 AM EDT Anemia in chronic kidney disease Other iron deficiency anemia Chronic kidney disease, stage 2 (mild) documented in this encounter Results * (ABNORMAL) Renal Function Panel (08/07/2024 8:15 AM EDT) Glucose 168(H) 70 - 99 mg/dL [facility] BUN 15 8 - 27 mg/dL [facility] Creatinine 0.93 0.57 - 1.00 mg/dL [facility] eGFR CKD-EPI CR 2020 69 >59 mL/min/1.7 3 [facility] BUN/Creatinine Ratio 16 12 - 28 [facility] Sodium 139 134 - 144 mmol/L [facility] Chloride 103 96 - 106 mmol/L [facility] Bicarbonate (CO2) 24 20 - 29 mmol/L [facility] Calcium 8.8 8.7 - 10.3 mg/dL [facility] Phosphorus 3.8 3.0 - 4.3 mg/dL [facility] Albumin 4.1 3.9 - 4.9 g/dL [facility] Potassium 4.8 3.5 - 5.2 mmol/L [facility] Blood (Blood, Venous) 08/07/2024 8:15 AM EDT 08/07/2024 Barry Reyes MD LAB BLOOD ORDERABLES Final Re sult Performing Organization Address [facility]/ZIP Co de Phone Number [facility] [address] [place] [address] * Ferritin (08/07/2024 8:15 AM EDT) Ferritin 55 15 - 150 ng/mL [facility] Blood (Blood, Venous) 08/07/2024 8:15 AM EDT 08/07/2024 Barry Reyes MD LAB BLOOD ORDERABLES Final Re sult Performing Organization Address [facility] de Phone Number [facility] [address] [place] [address] * (ABNORMAL) Iron Panel (Fe, TIBC, TSAT) (08/07/2024 8:15 AM EDT) TIBC 290 250 - 450 ug/dL [facility] UIBC 251 118 - 369 ug/dL [facility] Iron 39 27 - 139 ug/dL [facility] Iron Saturation (TSat) 13(L) 15 - 55 % [facility] Blood (Blood, Venous) 08/07/2024 8:15 AM EDT 08/07/2024 Barry Reyes MD LAB BLOOD ORDERABLES Final Re sult Performing Organization Address [facility] Co de Phone Number [facility] [address] [place] [address] * (ABNORMAL) CBC and Differential (08/07/2024 8:15 AM EDT) [facility] WBC 5.6 3.4 - 10.8 x10E3/uL [facility] RBC 5.41(H) 3.77 - 5.28 x10E6/uL [facility] Hemoglobin 10.7(L) 11.1 - 15.9 g/dL [facility] Hematocrit 36.1 34.0 - 46.6 % [facility] MCV 67(L) 79 - 97 fL [facility] MCH 19.8(L) 26.6 - 33.0 pg [facility] MCHC 29.6(L) 31.5 - 35.7 g/dL [facility] RDW 18.9(H) 11.7 - 15.4 % [facility] Platelets 171 150 - 450 x10E3/uL [facility] Neutrophils Relative 65 Not Estab. % [facility] Lymphocytes Relative 25 Not Estab. % [facility] Monocytes 6 Not Estab. % [facility] Eosinophils Relative 3 Not Estab. % [facility] Basophils Relative 1 Not Estab. % [facility] Neutrophils Absolute 3.6 1.4 - 7.0 x10E3/uL [facility] Lymphocytes Absolute 1.4 0.7 - 3.1 x10E3/uL [facility] Monocytes Absolute 0.4 0.1 - 0.9 x10E3/uL [facility] Eosinophils Absolute 0.2 0.0 - 0.4 x10E3/uL [facility] Basophils Absolute 0.0 0.0 - 0.2 x10E3/uL [facility] Immature Granulocytes 0 Not Estab. % [facility] Immature Grans (Absolute) 0.0 0.0 - 0.1 x10E3/uL [facility] Blood (Blood, Venous) 08/07/2024 8:15 AM EDT 08/07/2024 us Barry Reyes MD LAB BLOOD ORDERABLES Final Re sult [facility] [address] [place] [address] documented in this encounter Visit Diagnoses Diagnosis Anemia in chronic kidney disease Other iron deficiency anemia Chronic kidney disease, stage 2 (mild) documented in this encounter Care Teams Web Development Director Relationship Specialty Start Date End Date Sahra Son MD [address] [place] [address] PCP - General Internal Medicine 10/28/22 documented as of this encounter
--- OUTSIDE RECORDS SUMMARY | 2024-08-29 10:35 | XMS_ITS | Encounter Summary ---
Author Organization [facility] Address [address] [place] [address] Phone Care Team Providers Care Sap Administrator Name Role Phone Sahra Son MD Primary Care Provider + Encounter Details Date Type Department Care Team ([facility] Contact Info) Description 02/01/2023 Documentation Only [facility] [address] [place] [address] India Davalos [address] [place] [address] Social History Tobacco Use Types [...] [facility] [address] [place] [address] Barry Reyes MD [address] [place] [address] [place] [address] documented as of this encounter Visit Diagnoses Not on filedocumented in this encounter Care Teams Sap Administrator Relationship Specialty Start Date End Date Sahra Son MD [address] [address] PCP - General Internal Medicine 10/28/22 documented as of this encounter
--- OUTSIDE RECORDS SUMMARY | 2024-08-29 10:35 | XMS_ITS | Encounter Summary ---
Author Organization [facility] Address [address] [place] [address] Phone Care Team Providers Care Technician Plant And Maintenance Name Role Phone Sahra Son MD Primary Care Provider + Encounter Details Date Type Department Care Team ([facility] Contact Info) Description 06/25/2021 Documentation Only [facility] [address] [place] [address] India Davalos [address] [place] [address] Social History Tobacco Use Types [...] [facility] [address] [place] [address] Barry Reyes MD [address] [place] [address] [place] [address] documented as of this encounter Visit Diagnoses Not on filedocumented in this encounter Care Teams Technician Plant And Maintenance Relationship Specialty Start Date End Date Sahra Son MD [address] [address] PCP - General Internal Medicine 10/28/22 documented as of this encounter
--- OUTSIDE RECORDS SUMMARY | 2024-08-29 10:35 | XMS_ITS | Encounter Summary ---
Author Organization [facility] Address [address] [place] [address] Phone Care Team Providers Care Correction Lieutenant Name Role Phone Sahra Son MD Primary Care Provider + Encounter Details Date Type Department Care Team ([facility] Contact Info) Description 01/29/2023 Documentation Only [facility] [address] [place] [address] India Davalos [address] [place] [address] Social History Tobacco Use Types [...] [facility] [address] [place] [address] Barry Reyes MD [address] [place] [address] [place] [address] documented as of this encounter Visit Diagnoses Not on filedocumented in this encounter Care Teams Correction Lieutenant Relationship Specialty Start Date End Date Sahra Son MD [address] [address] PCP - General Internal Medicine 10/28/22 documented as of this encounter
--- OUTSIDE RECORDS SUMMARY | 2024-08-29 10:35 | XMS_ITS | Encounter Summary ---
Author Organization [facility] Address [address] [place] [address] Phone Care Team Providers Care Industrial Technician Name Role Phone Sahra Son MD Primary Care Provider + Encounter Details Date Type Department Care Team ([facility] Contact Info) Description 04/05/2024 Documentation Only [facility] [address] [place] [address] India Davalos [address] [place] [address] Social History Tobacco Use [...] [facility] [address] [place] [address] Barry Reyes MD [address] [place] [address] [place] [address] documented as of this encounter Visit Diagnoses Not on filedocumented in this encounter Care Teams Industrial Technician Relationship Specialty Start Date End Date Sahra Son MD [address] [address] PCP - General Internal Medicine 10/28/22 documented as of this encounter
--- OUTSIDE RECORDS SUMMARY | 2024-08-29 10:35 | XMS_ITS | Encounter Summary ---
Author Organization [facility] Address [address] [place] [address] Phone Care Team Providers Care Strip Winder Name Role Phone Sahra Son MD Primary Care Provider + Encounter Details Date Type Department Care Team ([facility] Contact Info) Description 01/29/2023 Documentation Only [facility] [address] [place] [address] India Davalos [address] [place] [address] Social History Tobacco Use [...] [facility] [address] [place] [address] Barry Reyes MD [address] [place] [address] [place] [address] documented as of this encounter Visit Diagnoses Not on filedocumented in this encounter Care Teams Strip Winder Relationship Specialty Start Date End Date Sahra Son MD [address] [address] PCP - General Internal Medicine 10/28/22 documented as of this encounter
--- OUTSIDE RECORDS SUMMARY | 2024-08-29 10:35 | XMS_ITS | Clinical Summary ---
Author Organization [employer] [facility] Address [address] [place] [address] Care Team Providers Care Otr Tanker Truck Driver Name Role Phone Sahra Sno MD Primary Care Provider + Surgical History Surgery Date Site/Laterality Comments OTHER SURGICAL HISTORY 1975 PROCEDURE: [place] ECTOPIC ABDOMINAL/VAGINAL APPR PARTIAL HYSTERECTOMY PROCEDURE: [place] SUPRACERVICAL ABDL HYSTER W/WO RMVL TUBE OVARY CHOLECYSTECTOMY 1982 PROCEDURE: HISTORICAL CHOLECYSTECTOMY CARPAL TUNNEL RELEASE 11/21/2014 Left PROCEDURE: HISTORICAL CARPAL TUNNEL REL BOWEL RESECTION 03/2004 PROCEDURE: HISTORICAL BOWEL RESECTION; COMMENT: bowel obstruction Medical History Medical History Date Comments Diverticulosis DX:Diverticulosi s CHF (congestive heart failur e) [place] [place], [facility] V28) DX:CHF (congestive heart fa ilure) ([facility]) COPD (chronic obstructive pu lmonary disease) ([facility] V24, [facility] V28) DX:COPD (chronic o bstructive pulmonary disease) ([facility]) Osteoporosis DX:Osteoporosis Fibromyalgia DX:Fibromyalgia Myelofibrosis ([facility] V24, [facility] V28) DX:Myelofibrosis ([facility]); COMM ENT: diagnosed 8 years ago, follows with DR layne Meningioma ([facility] V24, [facility] V28) DX:Meningioma ([facility]) Asthma DX:Asthma Gout DX:Gout Seizures ([facility] V24, [facility] V28) DX:Seizures ([facility]) Lupus DX:Lupus Depression DX:Depression; C OMMENT: follows at [facility] net at [place] [address] Gann Hypercoagulable state ([facility] V24) DX:Hypercoagulable state ([facility]); COMMENT: on coumadin Neurogenic bladder DX:Neurogenic bladder; COMMENT: flowers dependent Supplemental oxygen dependent DX :Supplemental oxygen dependent Lung nodule 03/22/2017 DX:Lung nodule ALESSANDRA (obstructive sleep apnea) 03/22/2017 DX :ALESSANDRA (obstructive sleep apnea) GERD (gastroesophageal reflux disease) 03/22/2017 DX:GERD (gastroesophageal reflux disease) Anxiety 03/22/2017 DX:Anxiety Dementia ([facility] [place], [facility] V28) 03/22/2017 DX:Dementia ([facility]) Schizophrenia ([facility] [place], [facility] V28) 03/22/2017 DX:Schizophrenia ([facility]) Glaucoma 03/22/2017 DX:Glaucoma History of stroke DX:History of stroke History of deep vein thrombosis DX:History of deep vein thrombosis Coronary artery disease DX:Coron christine artery disease; COMMENT: Old DC Diabetes mellitus type 2 wit h neurological manifestations ([facility], [facility] V28) DX:Diabetes mellitus type 2 with neurological manifestations ([facility]) Leukemia ([facility] V24, [facility] V28) 09/02/2017 DX:Leukemia ([facility]) MDS (myelodysplastic syndrom e) ([facility], [facility] V28) 09/02/2017 DX:MDS (myelodysplastic syn drome) ([facility]) Hyperthyroidism 09/02/2017 DX:Hyperthyroidi sm History of TIA (transient is chemic attack) 09/02/2017 DX:History of TIA (transient ischemic attack); COMMENT: 12/28 Family History Medical History Relation Name Comments Other: ABLATION FOR AN ARRHYTHMIA Brother Heart attack Father Hypertension Father Other: HEART DISEASE Father Diabetes Mother Other: MALIGNANT NEOPLASM Mother Relation Name Status Comments Brother Alive Father Mother Social History Tobacco Use Types Packs/Day Years Used Date Smoking Tobacco: Every Day Cigarettes Smokeless Tobacco: Never Alcohol Use Standard Drinks/Week Comments No 0 (1 standard drink = 0.6 oz pur e alcohol) Comments Unknown Sex and Gender Information Value Date Recorded Sex Assigned at Not on file Legal Sex Female 4:51 AM EST Gender Identity Not on file Sexual Orientation Not on file Obstetrics History Last Filed Vital Signs Vital Sign Reading Time Taken Comments Blood Pressure 122/82 12/04/2022 8:48 AM EDT Sitting L Arm Pulse 94 12/04/2022 8:48 AM EDT Temperature - - Respiratory Rate - - Oxygen Saturation - - Inhaled Oxygen Concentration - - Weight 100 kg (220 lb 6.4 oz) 3 8:48 AM EDT Height 170.2 cm (5' 7 ) 12/04/2022 8:48 AM EDT Body Mass Index 34.52 12/04/2022 8:48 AM EDT Plan of Treatment Health Maintenance Due Date Last Done Comments Breast Cancer Screening 1960 Diabetes: Annual GFR (Glomer ular Filtration Rate) 1959 COVID-19 Vaccine (#1) 11/07/1964 Diabetes: Annual Foot Exam 11/07/1969 Diabetes: Annual Retina Eye Exam 11/07/1969 DTaP,Tdap,and Td Vaccines (1 - Tdap) 11/07/1978 Pneumococcal Vaccine: 50+ Ye ars (1 of 2 - PCV) 11/07/1978 Pneumococcal Vaccine: Pediat rics (0 to 5 Years) and At-Risk Patients (6 to 64 Years) (1 of 2 - PCV) 11/07/1978 Zoster Vaccines (1 of 2) 11/07/1978 Cervical Cancer Screening: P ap Smear 11/07/1980 RSV Immunization Adult Patie nts (1 - Risk 60-74 years 1-dose series) 2019 Cholesterol Screening (Lipid Panel) 04/19/2022 Colorectal Cancer Screening: Colonoscopy 04/19/2022 Depression Screening 04/19/2022 HIV Screening 04/19/2022 Hepatitis C Screening 04/19/2022 Osteoporosis Screening (Bone Density Screening) 04/19/2022 Social Influencers of Health Screening 04/19/2022 Hypertension/CHF/CAD Annual BMP Blood Test 06/15/2023 Diabetes: Annual Urine Albumin-Creatinine Ratio (uACR) 07/01/2023 Diabetes: Blood Sugar Contro l Test (HGBA1C) 07/01/2023 Influenza Vaccine (Season Ended) 2025 HIB Vaccines Aged Out No longer eligi ble based on patient's age to complete this topic HPV Vaccines Aged Out No longer eligi ble based on patient's age to complete this topic Hepatitis A Vaccines Aged Out No long er eligible based on patient's age to complete this topic Hepatitis B Vaccines Aged Out No long er eligible based on patient's age to complete this topic IPV Vaccines Aged Out No longer eligi ble based on patient's age to complete this topic MMR Vaccines Aged Out No longer eligi ble based on patient's age to complete this topic Meningococcal ACWY Vaccine Aged Out N o longer eligible based on patient's age to complete this topic Meningococcal B Vaccine Aged Out No l onger eligible based on patient's age to complete this topic RSV Immunization Patients Un sarah 20 months Aged Out No longer eligible b ased on patient's age to complete this topic Varicella Vaccines Aged Out No longer eligible based on patient's age to complete this topic Care Teams Otr Tanker Truck Driver Relationship Specialty Start Date End Date Sahra Son MD [facility] [address] [place] [address] PCP - General 08/31/22
--- OUTSIDE RECORDS SUMMARY | 2024-08-29 10:36 | XMS_ITS | Encounter Summary ---
Author Organization [facility] Address [address] [place] [address] Phone Care Team Providers Care Gas Adjuster Name Role Phone Sahra Son MD Primary Care Provider + Encounter Details Date Type Department Care Team ([facility] Contact Info) Description 04/05/2024 Documentation Only [facility] [address] [place] [address] India Davalos [address] [place] [address] Social History Tobacco Use Types [...] [facility] [address] [place] [address] Barry Reyes MD [address] [place] [address] [place] [address] documented as of this encounter Visit Diagnoses Not on filedocumented in this encounter Care Teams Gas Adjuster Relationship Specialty Start Date End Date Sahra Son MD [address] [address] PCP - General Internal Medicine 10/28/22 documented as of this encounter
--- OUTSIDE RECORDS SUMMARY | 2024-08-29 10:36 | XMS_ITS | Encounter Summary ---
Author Organization [facility] Address [address] [place] [address] Care Team Providers Care Real Estate Underwriter Name Role Phone Vinnie Santizo Primary Care Provider Sahra Keith MD Primary Care Provider Marko Fernandez MD Unavailable [phone] Reason for Visit * Reason Comments E-prescribe Rx Request Encounter Details Date Type Department Care Team Description 02/04/2018 Refill Pulmonology - [place] [address] [facility] [address] [place] [id number] Eneida Acuña NP E-prescribe Rx Request Social [...] NO Patients current insurance carrier is: Payor: [employer] / Plan: [facility] [place] [facility] / Product Type: HMO [id number] documented in this encounter Plan of Treatment [...] persistent documented in this encounter Care Teams Real Estate Underwriter Relationship Specialty Start Date End Date Vinnie Santizo PCP - General Internal Medicine 03/30/17 08/30/22 Sahra Son MD PCP - General Internal Medicine 08/31/22 Marko Spaulding MD Specialist Cardiology 09/23/22 documented as of this encounter
--- OUTSIDE RECORDS SUMMARY | 2024-08-29 10:36 | XMS_ITS | Encounter Summary ---
Author Organization [facility] Address [address] [place] [address] Care Team Providers Care Ship Wirer Name Role Phone Vinnie Santizo Primary Care Provider Obinna Merrill MD Primary Care Provider [facility] Tammie, Pcp Primary Care Provider Vinnie Rodriguez Primary Care Provider Sahra Keith MD Primary [facility] Provider [facility] Marko Spaulding MD Unavailable [phone] Encounter Details Date Type Department Care Team Description 09/09/1998 [facility] [address] [address] Gwen Jean UNSPECIFIED CHEST PAIN Social History Tobacco Use Types Packs/Day Years Used Date Smoking Tobacco: Never Assessed Sex Assigned at Date Recorded Not on file documented as of this encounter Plan of Treatment Not on file documented as of this encounter Visit Diagnoses Diagnosis Chest pain, unspecified documented in this encounter Care Teams Ship Wirer Relationship Specialty Start Date End Date Vinnie Santizo PCP - General 08/04/03 12/12/12 Obinna Mao MD PCP - General Internal Medicine 12/13/1207/23 [facility], Pcp PCP - General Internal Medicine 07/24/13 03/29/17 Vinnie Santizo PCP - General Internal Medicine 03/30/17 08/30/22 Sahra Son MD PCP - General Internal Medicine 08/31/22 Marko Spaulding MD Specialist Cardiology 09/23/22 documented as of this encounter
--- OUTSIDE RECORDS SUMMARY | 2024-08-29 10:36 | XMS_ITS | Encounter Summary ---
Author Organization [facility] [employer] [facility] Address [address] [place] [address] Care Team Providers Care Sanitation Truck Driver Name Role Phone Vinnie Santizo Primary Care Provider Sahra Keith MD Primary Care Provider Marko Fernandez MD Unavailable [phone] Encounter Details Date Type Department Care Team Description 08/14/2022 SCAN Medical Records [address] [place] [id number] Abstract, Provider Social History Tobacco Use Types [...] on filedocumented in this encounter Care Teams Sanitation Truck Driver Relationship Specialty Start Date End Date Vinnie Santizo PCP - General Internal Medicine 03/30/17 08/30/22 Sahra Son MD PCP - General Internal Medicine 08/31/22 Marko Spaulding MD Specialist Cardiology 09/23/22 documented as of this encounter
--- OUTSIDE RECORDS SUMMARY | 2024-08-29 10:36 | XMS_ITS | Encounter Summary ---
Author Organization [facility] Address [address] [place] [address] Care Team Providers Care Bull Rider Name Role Phone Vinnie Santizo Primary Care Provider Sahra Keith MD Primary Care Provider Marko Fernandez MD Unavailable Encounter Details Date Type Department Care Team Description 07/24/2022 [facility] Medical Records [address] [place] [id number] Social History Tobacco Use Types Packs/Day Years [...] filedocumented in this encounter Care Teams Bull Rider Relationship Specialty Start Date End Date Vinnie Santizo PCP - General Internal Medicine 03/30/17 08/30/22 Sahra Son MD PCP - General Internal Medicine 08/31/22 Marko Spaulding MD Specialist Cardiology 09/23/22 documented as of this encounter
--- OUTSIDE RECORDS SUMMARY | 2024-08-29 10:36 | XMS_ITS | Encounter Summary ---
Author Organization [facility] Address [address] [place] [address] Phone Care Team Providers Care Interpreter And Translator Name Role Phone Sahra Son MD Primary Care Provider + Encounter Details Date Type Department Care Team (Late Contact Info) Description 04/28/2024 Orders Only [facility] [address] [place] [address] India Davalos [address] [place] [address] Chronic kidney disease, stage 2 [...] Visit [facility] [address] [address] Barry Reyes MD [address] [place] [address] [place] [address] documented [...] Glucose 153(H) 70 - 99 mg/dL [facility] BUN 17 8 - 27 mg/dL [facility] Creatinine 0.98 0.57 - 1.00 mg/dL [facility] eGFR CKD-EPI CR 2020 64 >59 mL/min/1.7 3 [facility] BUN/Creatinine Ratio 17 12 - 28 [facility] Sodium 142 134 - 144 mmol/L [facility] Potassium 5.0 3.5 - 5.2 mmol/L [facility] Chloride 106 96 - 106 mmol/L [facility] Bicarbonate (CO2) 23 20 - 29 mmol/L [facility] Calcium 8.9 8.7 - 10.3 mg/dL [facility] Albumin 3.9 3.9 - 4.9 g/dL [facility] Phosphorus 3.9 3.0 - 4.3 mg/dL [facility] Blood (Blood, Venous) 05/05/2024 9:18 AM EST 05/05/2024 Barry Reyes MD LAB BLOOD ORDERABLES Final Re sult Performing Organization Address City/[facility]/ZIP Co de Phone Number [facility] [address] [place] [address] * (ABNORMAL) Ferritin (05/05/2024 9:18 AM EST) Ferritin 282(H) 15 - 150 ng/mL [facility] Blood (Blood, Venous) 05/05/2024 9:18 AM EST 05/05/2024 Barry Reyes MD LAB BLOOD ORDERABLES Final Re sult Performing Organization Address [facility] Co de Phone Number [facility] [address] [place] [address] * Iron Panel (Fe, TIBC, TSAT) (05/05/2024 9:18 AM EST) TIBC 277 250 - 450 ug/dL [facility] UIBC 210 118 - 369 ug/dL [facility] Iron 67 27 - 139 ug/dL [facility] Iron Saturation (TSat) 24 15 - 55 % [facility] Blood (Blood, Venous) 05/05/2024 9:18 AM EST 05/05/2024 Barry Reyes MD LAB BLOOD ORDERABLES Final Re sult Performing Organization Address City/[facility]/ZIP Co de Phone Number [facility] [address] [place] [address] * (ABNORMAL) CBC and Differential (05/05/2024 9:18 AM EST) [facility] Signature WBC 5.6 3.4 - 10.8 x10E3/uL [facility] RBC 5.33(H) 3.77 - 5.28 x10E6/uL [facility] Hemoglobin 10.2(L) 11.1 - 15.9 g/dL [facility] Hematocrit 35.0 34.0 - 46.6 % [facility] MCV 66(L) 79 - 97 fL [facility] MCH 19.1(L) 26.6 - 33.0 pg [facility] MCHC 29.1(L) 31.5 - 35.7 g/dL [facility] RDW 20.1(H) 11.7 - 15.4 % [facility] Platelets 163 150 - 450 x10E3/uL [facility] Neutrophils Relative 64 Not Estab. % [facility] Lymphocytes Relative 26 Not Estab. % [facility] Monocytes 6 Not Estab. % [facility] Eosinophils Relative 3 Not Estab. % [facility] Basophils Relative 1 Not Estab. % [facility] Neutrophils Absolute 3.6 1.4 - 7.0 x10E3/uL [facility] Lymphocytes Absolute 1.5 0.7 - 3.1 x10E3/uL [facility] Monocytes Absolute 0.3 0.1 - 0.9 x10E3/uL [facility] Eosinophils Absolute 0.2 0.0 - 0.4 x10E3/uL [facility] Basophils Absolute 0.0 0.0 - 0.2 x10E3/uL [facility] Immature Granulocytes 0 Not Estab. % [facility] Immature Grans (Absolute) 0.0 0.0 - 0.1 x10E3/uL [facility] Blood (Blood, Venous) 05/05/2024 9:18 AM EST 05/05/2024 us Barry Reyes MD LAB BLOOD ORDERABLES Final Re sult [facility] [address] [place] [address] documented in this encounter Visit Diagnoses Diagnosis Chronic kidney disease, stage 2 (mild) Anemia in chronic kidney disease Iron deficiency anemia, not otherwise specified documented in this encounter Care Teams Interpreter And Translator Relationship Specialty [place] [address] [place] [address] PCP - General Internal Medicine 10/28/22 documented as of this encounter
--- OUTSIDE RECORDS SUMMARY | 2024-08-29 10:36 | XMS_ITS | Encounter Summary ---
Author Organization [facility] Address [address] [place] [address] Care Team Providers Care Hide Selector Name Role Phone Sahra Son MD Primary Care Provider Paula vailable Marko Spaulding MD Unavailable [phone] Encounter Details Date Type Department Care Team Description 09/15/2022 [facility]AN Medical Records [address] [place] [address] Abstract, Provider Social History Tobacco Use Types [...] on filedocumented in this encounter Care Teams Hide Selector Relationship Specialty Start Date End Date Sahra Son MD PCP - General Internal Medicine 08/31/22 Marko Spaulding MD Specialist Cardiology 09/23/22 documented as of this encounter
--- OUTSIDE RECORDS SUMMARY | 2024-08-29 10:36 | XMS_ITS | Encounter Summary ---
Author Organization [facility] Address [address] [place] [address] Phone Care Team Providers Care Recovery Agent Name Role Phone Sahra Son MD Primary Care Provider + Encounter Details Date Type Department Care Team (Late Contact Info) Description 07/21/2024 Orders Only [facility] [address] [place] [address] India Davalos [address] [place] [address] Chronic kidney disease, stage 2 [...] Visit [facility] [address] [facility] [place] [address] Barry Reyes MD [address] [facility] [place] [address] documented as of this encounter Visit Diagnoses Diagnosis Chronic kidney disease, stage 2 (mild) Anemia in chronic kidney disease Iron deficiency anemia, not otherwise specified documented in this encounter Care Teams Recovery Agent Relationship Specialty Start Date End Date Sahra Son MD [facility] [place] [address] PCP - General Internal Medicine 10/28/22 documented as of this encounter
--- OUTSIDE RECORDS SUMMARY | 2024-08-29 10:36 | XMS_ITS | Encounter Summary ---
Author Organization [facility] [employer] [facility] Address [address] [place] [address] Care Team Providers Care Auto Vinyl Top Installer Name Role Phone Sahra Son MD Primary Care Provider Paula vailable Marko Spaulding MD Unavailable [phone] Encounter Details Date Type Department Care Team Description 10/19/2022 SCAN Medical Records [address] [place] [address] Abstract, Provider Social History Tobacco Use Types [...] on filedocumented in this encounter Care Teams Auto Vinyl Top Installer Relationship Specialty Start Date End Date Sahra Son MD PCP - General Internal Medicine 08/31/22 Marko Spaulding MD Specialist Cardiology 09/23/22 documented as of this encounter
--- OUTSIDE RECORDS SUMMARY | 2024-08-29 10:36 | XMS_ITS | Encounter Summary ---
Author Organization [facility] [employer] [facility] Address [address] [place] [address] Care Team Providers Care Crude Oil Treater Name Role Phone Sahra Son MD Primary Care Provider Paula daryilable Marko Spaulding MD Unavailable [phone] Encounter Details Date Type Department Care Team Description 12/17/2022 Orders Only Medical Records [address] [place] [address] Abstract, Provider Social History Tobacco Use Types [...] on filedocumented in this encounter Care Teams Crude Oil Treater Relationship Specialty Start Date End Date Sahra Son MD PCP - General Internal Medicine 08/31/22 Marko Spaulding MD Specialist Cardiology 09/23/22 documented as of this encounter
--- OUTSIDE RECORDS SUMMARY | 2024-08-29 10:36 | XMS_ITS | Clinical Summary ---
Author Organization [facility] Address [address] [place] [address] Care Team Providers Care Heavy Equipment Service Technician Name Role Phone Geovani Natalie Carmelo ESPARZA Primary Care Provider [phone] Allergies Active Allergy Reactions Criticality Noted Date [...] 1 10/04/2016 Active ergocalciferol (VITAMIN D2) capsule 87646 units TK ONE C PO TWICE A [...] times a day. 0 04/27/2022 Active pancrelipase, Mqx-Gqnd-Gsfy, (Creon) 34610-[address]276 units CPEP TK ONE C PO TID [...] age to complete this topic Care Teams Heavy Equipment Service Technician Relationship Specialty Start Date End Date Natalie Olivo APRN [address] [place] [address] PCP - General Protector Plate Attacher 04/30/22
--- OUTSIDE RECORDS SUMMARY | 2024-08-29 10:36 | XMS_ITS | Encounter Summary ---
Author Organization [facility] Address [address] [place] [address] Care Team Providers Care Carburizing Furnace Operator Name Role Phone Vinnie Santizo Primary Care Provider Sahra Keith MD Primary Care Provider Marko Fernandez MD Unavailable [phone] Encounter Details Date Type Department Care Team Description 08/10/2018 SCAN Medical Records [address] [place] [address] Abstract, Provider Social History Tobacco Use Types [...]
--- OUTSIDE RECORDS SUMMARY | 2024-08-29 10:36 | XMS_ITS | Encounter Summary ---
Author Organization [facility] Address [address] [place] [address] Care Team Providers Care Associate Professor Of Surgery Name Role Phone Vinnie Santizo Primary Care Provider Obinna Merrill MD Primary Care Provider [facility] Tammie, Pcp Primary Care Provider Vinnie Rodriguez Primary Care Provider Sahra Keith MD Primary Care Provider Paula [facility] Marko Spaulding MD Unavailable Encounter Details Date Type Department Care Team Description 09/08/1998 [facility] Cardiology [address] [address] Raphael Bernstein MD SYNCOPE AND COLLAPSE Social History Tobacco Use Types Packs/Day Years Used Date Smoking Tobacco: Never Assessed Sex Assigned at Date Recorded Not on file documented as of this encounter Plan of Treatment Not on file documented as of this encounter Visit Diagnoses Diagnosis Syncope and collapse documented in this encounter Care Teams Associate Professor Of Surgery Relationship Specialty Start Date End Date Vinnie Santizo PCP - General 08/04/03 12/12/12 Obinna Mao MD PCP - General Internal Medicine 12/13/1207/23 [facility], Pcp PCP - General Internal Medicine 07/24/13 03/29/17 Vinnie Santizo PCP - General Internal Medicine 03/30/17 08/30/22 Sahra Son MD PCP - General Internal Medicine 08/31/22 Marko Spaulding MD Specialist Cardiology 09/23/22 documented as of this encounter
--- OUTSIDE RECORDS SUMMARY | 2024-08-29 10:36 | XMS_ITS | Encounter Summary ---
Author Organization [facility] Address [address] [place] [address] Care Team Providers Care Work From Home Name Role Phone Sahra Son MD Primary Care Provider Paula vailable Marko Spaulding MD Unavailable [phone] Encounter Details Date Type Department Care Team Description 05/06/2023 Concrete Stone Fabricator Report Medical Records [address] [place] [id number] Sahra Son MD Social History Tobacco Use [...] on filedocumented in this encounter Care Teams Work From Home Relationship Specialty Start Date End Date Sahra Son MD PCP - General Internal Medicine 08/31/22 Marko Spaulding MD Specialist Cardiology 09/23/22 documented as of this encounter
--- OUTSIDE RECORDS SUMMARY | 2024-08-29 10:36 | XMS_ITS | Encounter Summary ---
Author Organization [facility] Address [address] [place] [address] Care Team Providers Care Field Engineer Name Role Phone Vinnie Santizo Primary Care Provider Sahra Keith MD Primary Care Provider Marko Fernandez MD Unavailable [phone] Encounter Details Date Type Department Care Team Description 08/19/2017 Acupressure Therapist Report Medical Records [address] [place] [address] Abstract, Provider Social History Tobacco Use Types [...] on filedocumented in this encounter Care Teams Field Engineer Relationship Specialty Start Date End Date Vinnie Santizo PCP - General Internal Medicine 03/30/17 08/30/22 Sahra Son MD PCP - General Internal Medicine 08/31/22 Marko Spaulding MD Specialist Cardiology 09/23/22 documented as of this encounter
--- OUTSIDE RECORDS SUMMARY | 2024-08-29 10:36 | XMS_ITS | Encounter Summary ---
Author Organization [facility] Address [address] [place] [address] Phone Care Team Providers Care Machine Operator Packaging Name Role Phone Sahra Son MD Primary Care Provider + Encounter Details Date Type Department Care Team (Late Contact Info) Description 06/23/2024 Orders Only [facility] [address] [place] [address] India Davalos [address] [place] [address] Chronic kidney disease, stage 2 [...] Visit [facility] [address] [place] [address] Barry Reyes MD [address] [place] [address] documented as of this encounter Visit Diagnoses Diagnosis Chronic kidney disease, stage 2 (mild) Anemia in chronic kidney disease Iron deficiency anemia, not otherwise specified documented in this encounter Care Teams Machine Operator Packaging Relationship Specialty Start Date End Date Sahra Son MD [facility] [place] [address] PCP - General Internal Medicine 10/28/22 documented as of this encounter
--- OUTSIDE RECORDS SUMMARY | 2024-08-29 10:36 | XMS_ITS | Data Portability ---
Author Organization [employer] [facility] [employer] [place] - [employer] Address [address] [place] [id number] Care Team Providers Care Provider Relations Specialist Name Role Phone HIM CCA OTHER Assessment Encounter Date Assessment Date Assessment LastModified by Organization Details LastModified Time 07/07/2023 07/07/2023 I provided real -time medical direction via phone for this encounter, and was available for additional phone based assistance as needed. I have reviewed and agree with the Assessment and Plan as documented by the Sawmill Hand. We discussed the diagnostic uncertainty of home visits and the risk associated with this. The patient given the opportunity to ask questions. Advised the patient the need to be evaluated in the emergency room. I explained my concern about spinal injury with the reported seizures, and internal bleeding. Advised of the need for imaging and further workup; advised that if she fell again and struck her head on the Coumadin she could have a severe even stable head bleed. She verbalized understanding and refused transfer Advised the need for close follow-up with her PCP-email sent to PCP- Dr. Prudencio Son) regarding visit. Advised if develops CP/severe SOB/turning blue/uncontrolle d n/v/d or black/bloody emesis or increased bloody stool/ AMS/ syncope recurrent seizure with head injury/intolerab le back pain/loss of bowel or bladder control/focal weakness of extremities/ hi fever to call 911- verbalized understanding of instructions [email or web address] Not available 07/07/2023 23:48:08 08/03/2023 08/03/2023 Ms. Jennifer Schulz is a 62yoF w/ a PmHx of COPD and DM2 who is seen today for further evaluation of a cough and shortness of breath. Ms. Schulz reports that for the past one week she has had a cough with nasal congestion. She has been using her nebulizer over the course of the day but reports that beginning this morning she had worsening congestion and called for an [facility] evaluation. She denies nausea/vomiting, fevers, or any other concerns. She endorses a sick contact in her [employer]. VSS. Sawmill Hand on site reports no acute distress, wheezing in b/l lung bases. POC COVID/flu negative Will treat as COPD exacerbation as much more likely viral than bacterial with lack of fevers or focal lung findings. Given 40mg PO prednisone and 500mg of azithromycin and rx sent to pharmacy. Encouraged to use her home nebulizer q4hr while awake for the next two days and given two back to back duonebs on site. Primary team, Ms. Schulz would benefit form follow up in the next day to make sure she's starting to improve. [email or web address] Not available 08/03/2023 13:27:10 09/16/2023 09/16/2023 I provided real -time medical direction via phone for this encounter, and was available for additional phone based assistance as needed. I have reviewed and agree with the Assessment and Plan as documented by the Sawmill Hand. We discussed the diagnostic uncertainty of home visits and the risk associated with this The patient given the opportunity to ask questions. Call placed to [facility] ER expect line [email or web address] Not available 09/16/2023 11:20:43 08/17/2024 08/17/2024 I have reviewed and agree with the assessment and plan as documented by the switchboard installer. I provided real time medical direction for this encounter and was immediately available to provide additional phone based assistance as needed. History as noted by switchboard installer. Pt with history of type 2 diabetes complicated by CKD and hyperglycemia, pancreatic insufficiency, HTN, anemia, hyperlipidemia, obesity, memory impairment, previous CVA, stented carotid aneurysm, antiphospholipid antibody syndrome on long-term warfarin, COPD, seizure disorder/nonepil eptic seizures, depression, anxiety, insomnia, and chronic pain. Pt reports that on 08/14 she bent forward while seated in a recliner and felt something pop in her R lower ribs anteriorly. She reports they are tender and pain increases with deep breathing but no SOB. No abdominal pain. Pt seen by her PCP on 08/14 and was given toradol with good effect. Xray of ribs ordered but will not be done until tomorrow. Pt reports she is not taking anything for pain at home. Pt on warfarin, last INR on 08/07 was 1.8 (pt's report). Pt's provider requests another dose of toradol for pain today. On exam, pt alert, no distress. Vitals normal. Lungs: clear and equal BS. R anterior lower ribs with tenderness, no bruising or deformity. Impression: Pt with likely R anterior lower rib contusion from injury 08/14. Vitals and exam today reassuring. Pt is told that since she is on warfarin, she should receive too many doses of toradol, but will given a single dose today as requested. Pt medicated with toradol 30 mg IM. Pt is also told that she should start taking tylenol bid-tid for her pain as well and I prescribe lidocaine patches for her to apply qdaily as well. Pt is told to f/u with her primary care team after her xray tomorrow to discuss results and further pain management. Pt instructed to seek medical attention right away with any worsening or new symptoms, which are reviewed with her. [email or web address] Not available 08/17/2024 16:18:12 Plan of Treatment Reminders Order Date Submit Date Provider Last Modified By Organization Details Last Modified Time Details Appointments None recorded. Lab glucose, fingerstick , blood 2023 024 [email or web address] 0 [facility] - [facility], [address] [place] [address], [phone] 4 11:21:41 BMP, serum or plasma 2023 024 [email or web address] 0 [facility] - [facility], [address] [place] [address], [phone] 4 23:49:01 Referral None recorded. Procedures None recorded. Surgeries None recorded. Imaging None recorded. Medication Orders ketorolac 60 mg/2 mL intramuscul ar solution 2024 025 [email or web address] [facility] #[id number], [address], [place], [id number], 5 16:08:53 lidocaine 4 % topical patch 2024 025 JEANNE [facility] #[id number], [address], [place], [id number], 5 16:08:59 prednisone 10 mg tablet 2023 024 [facility] #[id number], [address], [id number], 4 11:51:08 azithromyci n 250 mg tablet 2023 024 [facility] #[id number], [address], [place], [id number], 4 11:51:18 azithromyci n 250 mg tablet [address] [facility][id number], [address], [place], [id number], 4 11:50:53 prednisone 20 mg tablet [address] [facility]31724, [address], [place], [id number], 4 11:50:53 Patient TargetsNo targets recorded. Patient InstructionsNo instructions recorded. Reason for Referral None Reported. Results Created Date Observation Date Name Description Value Unit Range Abnormal Flag Note LastModifiedBy Organization Detail LastModifiedTime 07/07/19 24 07/07/2023 BMP, serum or plasm a BUN 17 Not Available [facility] [address], [address] 07/07/2023 15:06:01 07/07/19 24 07/07/2023 BMP, serum or plasm a Ca 1.13 ionize d Not Available [facility] - [facility] [address], [address] 07/07/2023 15:06:01 07/07/19 24 07/07/2023 BMP, serum or plasm a CI- 104 Not Available [facility] [address], [address] 07/07/2023 15:06:01 07/07/19 24 07/07/2023 BMP, serum or plasm a CRE 0.9 Not Available [facility] [address], [address] 07/07/2023 15:06:01 07/07/19 24 07/07/2023 BMP, serum or plasm a GLU 182 Not Available [facility] [address], [address] 07/07/2023 15:06:01 07/07/19 24 07/07/2023 BMP, serum or plasm a K+ 3.8 Not Available [facility] [address], [address] [place] [address] 07/07/2023 15:06:01 07/07/19 24 07/07/2023 BMP, serum or plasm a Na+ 140 Not Available [facility] [address], [address] [place] [address] 07/07/2023 15:06:01 07/07/19 24 07/07/2023 BMP, serum or plasm a tCO2 23 Not Available [facility] [address], [address] [place] [address] 07/07/2023 15:06:01 09/16/19 24 09/16/2023 gluco se, finge rstic k, blood Blood Glucose: mg/dl 215 Not Available [facility] - [address], [address] 09/16/2023 11:21:03 Result Notes None recorded. Medical Equipment None Reported. Allergies Allergen ID Allergen Name Allergen Category Reaction Reaction Severity Criticality Documentation Date Start Date Code Code System Note Provider Name and Address Organization Details Recorded Time 1747 codeine medicatio n Not available Not available Not available 05/27/2022 2670 RxNorm Not Available [facility] - [facility] 5 14:05:30 1748 shellfish derived food,medi cation Not available Not available Not available 05/27/2022 64323 UNK Nidia Morales MD [address] [place] [address],[address], [place], [address] [employer] 3 14:08:14 1749 Product containin g penicilli n (product) medicatio n Not available Not available Not available 05/27/2022 23095 8001 SNOMED Not Available [facility] - [facility] 4 03:41:45 4589 morphine medicatio n Not available Not available Not available 07/07/2023 7052 RxNorm Natalie Whipple MD [address], [place], [address], [facility] 4 15:03:14 4590 Iodinated contrast media (substanc e) medicatio n Not available Not available Not available 07/07/2023 86368 2003 SNOMED Natalie Whipple MD [address], [place], [address], [facility] 4 15:03:26 Medications Name Sig Start Date Stop Date Status Note LastModified by Organization Details LastModified Time nifedipine ER 30 mg tablet,exten ded release 24 hr active Not Available Not Available Not Available latanoprost 0.005 % eye drops INSTILL 1 DROP IN BOTH EYES EVERY NIGHT AT BEDTIME active Not Available Not Available N ot Available atorvastatin 40 mg tablet TAKE 1 TABLET BY MOUTH EVERY DAY active Not Available Not Available No t Available atorvastatin 80 mg tablet TAKE 1 TABLET BY MOUTH EVERY DAY active Not Available Not Available No t Available oxcarbazepin e 150 mg tablet TAKE 1 TABLET BY MOUTH EVERY NIGHT AT BEDTIME FOR 1 WEEK THEN 1 TABLET TWICE DAILY active Not Available Not Available Not Available clonidine HCl 0.1 mg tablet TAKE 1 TABLET BY MOUTH TWICE DAILY active Not Available Not Available No t Available carvedilol 6.25 mg tablet active Not Available Not Available Not Available prednisone 10 mg tablet TAKE 4 TABLETS BY MOUTH EVERY DAY IN THE MORNING FOR 4 DAYS active Not Available Not Available No t Available rabeprazole 20 mg tablet,delay ed release TAKE 1 TABLET BY MOUTH EVERY DAY active Not Available Not Available No t Available ipratropium 0.5 mg-albuterol 3 mg (2.5 mg base)/3 mL nebulization soln INHALE 1 VIAL VIA NEBULIZER FOUR TIMES DAILY active Not Available Not Available No t Available quetiapine 300 mg tablet TAKE 1 TABLET BY MOUTH EVERY DAY AT BEDTIME active Not Available Not Available No t Available azithromycin 250 mg tablet TAKE 1 TABLET (250 MG) BY ORAL ROUTE ONCE DAILY FOR 4 DAYS active Not Available Not Available No t Available FreeStyle Lancets 28 gauge USE TO CHECK BLOOD SUGAR 2 TO 3 TIMES A DAY active Not Available Not Available No t Available quetiapine 200 mg tablet TAKE 1 TABLET BY MOUTH EVERY EVENING active Not Available Not Available No t Available warfarin 2.5 mg tablet TAKE 1 TO 2 TABLETS BY MOUTH EVERY DAY active Not Available Not Available No t Available Nicotrol 10 mg inhalation cartridge INHALE UP TO 16 TIMES PER DAY NEEDED FOR 14 DAYS active Not Available Not Available No t Available lamotrigine 25 mg tablet TAKE 1 TABLET BY MOUTH DAILY active Not Available Not Available Not Available Deep Sea Nasal 0.65 % spray aerosol INSTILL 2 DROPS IN EACH NOSTRIL NEEDED EVERY 2 HOURS FOR 30 DAYS active Not Available Not Available No t Available amitriptylin e 25 mg tablet TAKE 1 TABLET BY MOUTH EVERY DAY AT BEDTIME active Not Available Not Available No t Available ropinirole 0.25 mg tablet TAKE 2 TABLETS BY MOUTH EVERY NIGHT 1 TO 3 HOURS BEFORE BEDTIME active Not Available Not Available No t Available meclizine 25 mg tablet TAKE 1 TABLET BY MOUTH THREE TIMES DAILY NEEDED active Not Available Not Available No t Available benzonatate 100 mg capsule TAKE 1 CAPSULE BY MOUTH EVERY 6 HOURS NEEDED FOR COUGH active Not Available Not Available No t Available prednisone 50 mg tablet TAKE 1 TABLET BY MOUTH DAILY TAKE STARTING [address] SCAN active Not Available Not Available No t Available omeprazole 20 mg capsule,ivonne yed release TAKE 1 CAPSULE BY MOUTH EVERY DAY active Not Available Not Available No t Available Banophen 25 mg capsule TAKE 1 CAPSULE BY MOUTH ONCE. TAKE STARTING [address] SCAN active Not Available Not Available N ot Available montelukast 10 mg tablet TAKE 1 TABLET BY MOUTH EVERY DAY active Not Available Not Available No t Available codeine 10 mg-guaifenes in 100 mg/5 mL oral liquid TAKE 10 ML BY MOUTH DAILY FOR 7 DAYS NEEDED FOR COUGH active Not Available Not Available No t Available gabapentin 100 mg capsule TAKE 1 CAPSULE BY MOUTH THREE TIMES DAILY active Not Available Not Available Not Available lorazepam 1 mg tablet TAKE 1 TABLET BY MOUTH TWICE DAILY active Not Available Not Available No t Available methylpredni solone 4 mg tablets in a dose pack FOLLOW PACKAGE DIRECTIONS active Not Available Not Available N ot Available ondansetron 4 mg disintegrati ng tablet DISSOLVE 1 TABLET ON THE TONGUE EVERY 8 HOURS NEEDED FOR NAUSEA active Not Available Not Available No t Available loratadine 10 mg tablet TAKE 1 TABLET BY MOUTH EVERY DAY NEEDED FOR CONGESTION OR ALLERGIES active Not Available Not Available No t Available hydrocortiso ne-pramoxine 1 %-1 % rectal cream APPLY TO RECTUM NEEDED FOR PAIN ITCHING THREE TIMES DAILY EXTERNALLY active Not Available Not Available N ot Available hydrocortiso ne 1 % topical cream with perineal applicator APPLY TOPICALLY TO THE AFFECTED AREA TWICE DAILY FOR 7 DAYS active Not Available Not Available No t Available divalproex ER 250 mg tablet,exten ded release 24 hr TAKE 1 TABLET BY MOUTH TWICE DAILY active Not Available Not Available No t Available nicotine (polacrilex) 2 mg buccal lozenge 1 LOZENGE NEEDED FOR SMOKING CESSATION IN PLACE OF A CIGARETTE 20 TIMES A DAY FOR 30 DAYS active Not Available Not Available No t Available Cymbalta 60 mg capsule,ivonne yed release TAKE 2 CAPSULES BY MOUTH DAILY FOR 21 DAYS active Not Available Not Available Not Available BD Ultra-Fine Short Pen Needle 31 gauge x 5/16 USE DIRECTED TO INJECT INSULIN SUBCUTANEOU SLY ONCE DAILY active Not Available Not Available No t Available FreeStyle Lite Meter kit USE DIRECTED TO CHECK BLOOD SUGAR 1 TO 2 TIMES DAILY active Not Available Not Available No t Available Lantus Solostar U-100 Insulin 100 unit/mL (3 mL) subcutaneous pen ADMINISTER 18 UNITS UNDER THE SKIN EVERY DAY active Not Available Not Available No t Available Creon 24,000-76,00 0-120,000 unit capsule,ivonne yed release TAKE ONE CAPSULE BY MOUTH PRIOR TO EACH MEAL FOR 30 DAYS active Not Available Not Available No t Available Tradjenta 5 mg tablet TAKE 1 TABLET BY MOUTH EVERY DAY FOR DIABETES active Not Available Not Available No t Available OneTouch Verio test strips USE TO TEST 1-2 TIMES WEEKLY active Not Available Not Available No t Available Combivent Respimat 20 mcg-100 mcg/actuatio n solution for inhalation INHALE 1 PUFF BY MOUTH FOUR TIMES DAILY active Not Available Not Available Not Available Easy Touch Alcohol Prep Pads USE DIRECTED TO CLEANSE SKIN PRIOR TO CHECKING BLOOD SUGAR / INJECTING INSULIN active Not Available Not Available No t Available Linzess 145 mcg capsule TAKE 1 CAPSULE BY MOUTH DAILY 30 MINUTES BEFORE FIRST MEAL OF THE DAY ON AN EMPTY STOMACH FOR CONSTIPATIO N active Not Available Not Available No t Available Farxiga 10 mg tablet TAKE 1 TABLET BY MOUTH EVERY DAY FOR DIABETES active Not Available Not Available No t Available Farxiga 5 mg tablet TAKE 1 TABLET BY MOUTH DAILY active Not Available Not Available Not Available OneTouch Verio Flex Meter USE TO MONITOR BLOOD GLUCOSE active Not Available Not Available No t Available Lidocaine Pain Relief 4 % topical patch APPLY 1 PATCH TOPICALLY TO THE SKIN EVERY DAY NEEDED FOR RIB PAIN active Not Available Not Available No t Available Wixela Inhub 100 mcg-50 mcg/dose powder for inhalation INHALE 1 PUFF BY MOUTH TWICE DAILY active Not Available Not Available No t Available Lagevrio 200 mg capsule (EUA) TAKE 4 CAPSULES BY MOUTH EVERY 12 HOURS FOR 5 DAYS active Not Available Not Available N ot Available Vitals Date Recorded Oxygen saturation Oxygen saturation in Arterial blood by Pulse oximetry Body temperature Respiratory rate Heart rate Systolic blood pressure Diastolic blood pressure Provider Name and Address Organization Details Last Updated DateTime 4 98 % 98 % 98.6 [degF] 16 /min 92 /min 150 mm[Hg] 90 mm[Hg] Not Available [facility] 4 15:01:59 Date Recorded Body temperature Respiratory rate Oxygen saturation Oxygen saturation in Arterial blood by Pulse oximetry Heart rate Systolic blood pressure Diastolic blood pressure Provider Name and Address Organization Details Last Updated DateTime 4 97.9 [degF] 16 /min 97 % 97 % 73 /min 144 mm[Hg] 80 mm[Hg] Not Available [facility] 4 11:45:28 Date Recorded Body temperature Heart rate Respiratory rate Oxygen saturation Oxygen saturation in Arterial blood by Pulse oximetry Systolic blood pressure Diastolic blood pressure Provider Name and Address Organization Details Last Updated DateTime 4 97.7 [degF] 65 /min 18 /min 97 % 97 % 138 mm[Hg] 64 mm[Hg] Not Available [facility] - [facility] 4 12:03:25 Date Recorded Body temperature Oxygen saturation Oxygen saturation in Arterial blood by Pulse oximetry Heart rate Respiratory rate Systolic blood pressure Diastolic blood pressure Provider Name and Address Organization Details Last Updated DateTime 4 98 [degF] 97 % 97 % 87 /min 16 /min 133 mm[Hg] 78 mm[Hg] Not Available [facility] [employer] 4 14:12:35 Date Recorded Oxygen saturation Oxygen saturation in Arterial blood by Pulse oximetry Heart rate Body temperature Respiratory rate Systolic blood pressure Diastolic blood pressure Provider Name and Address Organization Details Last Updated DateTime 5 97 % 97 % 89 /min 97.6 [degF] 16 /min 140 mm[Hg] 64 mm[Hg] Not Available [facility] [employer] 5 16:01:31 Social History None recorded. Functional Status None recorded. Mental Status None recorded. Family History Nothing Reported. Medical History No medical history recorded. Gynecological HistoryNo gynecological history recorded. Obstetrics History GPAL:G 0 P 0 0 0 0 Past Encounters Encounter ID Performer Location Encounter Start Date Encounter Closed Date Diagnosis/Indication Diagnosis SNOMED-CT Code Diagnosis ICD10 Code Diagnosis Note [id number] Dante Brown MD [facility] - [address] [address] 02/04/2022 17:39:01 02/04/2022 17:44:57 [id number] Ana Luisa Fair MD [facility] - [address] [address] 02/13/2022 11:18:20 02/13/2022 11:46:05 [id number] Dante Brown MD [address] [address] 04/20/2022 16:19:49 04/22/2022 11:04:34 Viral upper respiratory tract infection [id number] J06.9 This 61-year-ol d female called [facility] with symptoms of a URI. Her COVID-19 and flu screens were negative and she did not appear to be acutely ill. I recommende d symptomati c treatment and she will follow-up with her PCP if her symptoms persist. The patient agreed with this plan. [id number] Jah Vasquez MD [facility] - [address] [address] 05/19/2022 15:42:35 05/21/2022 10:52:46 COVID-19 [id number] U07.1 [id number] Nidia Morales MD [address] [address] 05/27/2022 14:04:20 05/29/2022 10:25:07 Pneumonia [id number] J18.9 61yo PMHx ?seizure activity, HTN, CKD, anxiety, opioid dependence on methadone, hx of DVTs on coumadin, and COPD w/ recent COVID infection (FDS 05/14/22) s/p partial course paxlovid and molnupinav ir who is p/w recurrent fever and productive cough. Reports repeat COVID test was negative today. VS notable for low grade temp s/p APAP and normal O2 sat at rest and w/ ambulation . Minimal sore throat, able to swallow. Denies other focal infectious sx including UTI, skin, GI, MSK, etc. Prolonged COVID infection leading to fever unlikely given rapid negative, DDx includes influenza vs other viral process vs bacterial PNA. POC COVID and flu negative here. Thus will empiricall y start tx for PNA, recommend CXR to PCP and recommend ED eval if sx worsen. Red flag symptoms reviewed, pt instructed to call 911 if condition worsens or new symptoms develop, pt expressed understand ing. I have reviewed and agree with the assessment and plan as documented by the switchboard installer. I provided real time medical direction for this encounter and was immediatel y available to provide additional phone based assistance as needed. [id number] David Guerrero MD [facility] [address] [place] [phone] 05/14/2023 15:50:47 05/18/2023 12:06:52 Cough [id number] R05.9 [id number] Natalie Whipple MD [facility] [address] [place] [address] 07/07/2023 15:01:51 07/08/2023 09:28:47 Acute low back pain 511622134 M54.50 On top of chronic advised needs imaging due to recent seizures. Patient insisted on ketorolac. I advised that on Coumadin in somebody with a history of CKD 3 that although her current labs are stable ketorolac is currently contraindi cated and could cause CHEY and GI hemorrhage I explained that the ER has more pain medication at the disposal if she truly needed it. She stated that they would just give her ketorolac. I explained again that I am not comfortabl e giving her ketorolac and declined to give her a dose in her best interest History of rectal bleeding [id number] 0850300 Z87.19 We do not have the ability to do stool guaiac and although her H&H is currently stable I am concerned with her taking ibuprofen while on Coumadin-a dvised needs workup for GI bleeding. [id number] Ana Luisa Fair MD [facility] [address] [place] [phone] 08/03/2023 11:25:58 08/03/2023 20:10:35 Acute exacerbation of chronic obstructive pulmonary disease [id number] J44.1 [id number] Natalie Whipple MD [facility] [address] [place] [address] 09/16/2023 11:10:45 09/19/2023 12:06:57 Dizziness [id number] R42 Prolonged postictal symptoms / cannot r/o new CVA vs bleed given unsteadine ss, increased right hemiparesi s and patient is a large fall risk- advised patient need for emergent CT brain-hypo glycemia is not the issue here. Explained to patient the need for emergent evaluation and she agreed. Report called to [facility] [id number] Josefina Irizarry MD [facility] [address] [place] [phone] 11/30/2023 14:12:32 11/30/2023 18:23:22 Abdominal pain [id number] R10.9 63 year old female with iron deficiency anemia, being evaluated for abdominal distension after an IV infusion 5 days ago. Patient reports normal BM, passing gas, feels like she's . She states she could see her abdomen swelling before her eyes as she was receiving the infusion. No nausea/vom iting, has to press on her upper abdomen to take a deep breath. Able drink fluids but gets full quickly when she eats food. Exam notable for normal vital signs, distended abdomen with positive bowel sounds, diffuse tenderness to palpation without rebound/gu arding. Presentati on suggestive of dyspepsia without clear signs of bowel obstructio n at this time, if continues to pass stool she may remain at home pending outpatient FU scheduled in 48h. Reviewed warning signs to call back for reevaluati on. I have reviewed and agree with the assessment and plan as documented by the switchboard installer. I provided real-time medical direction for this encounter and was immediatel y available to provide additional phone-base d assistance as needed. We discussed the diagnostic uncertaint y of home visits and associated risks. We discussed the need to seek care urgently/e mergently in the setting of any new or worsening symptoms. [id number] David Guerrero MD [facility] [address] [place] [id number] 08/17/2024 16:01:29 08/17/2024 19:17:31 Contusion of right rib [id number] 7101 S20.211A Health Concerns Section Related Observation LastModified by Organization Detai ls LastModified Time None Recorded Concern Status LastModified by Organization Details LastModified Time None Recorded Advance Directives Directive None Recorded Payers Encounter Date Sequence Insurance Name Policy Number Policy Gorman Covered Member ID Gorman Member ID Guarantor Name 07/07/2023 1 [facility] - DOS ON OR AFTER 2022 - DUAL ELIGIBLE - PENITENTIARY OPTIONS AND ONE CARE (MEDICARE REPLACEMENT/AD VANTAGE - HMO) Jennifer Schulz [id number] Jennifer Schulz 08/03/2023 1 [employer] - DOS ON OR AFTER 2022 - DUAL ELIGIBLE - PENITENTIARY OPTIONS AND ONE CARE (MEDICARE REPLACEMENT/AD VANTAGE - HMO) Jennifer Schulz [id number] Jennifer Schulz 09/16/2023 1 [employer] - DOS ON OR AFTER 2022 - DUAL ELIGIBLE - PENITENTIARY OPTIONS AND ONE CARE (MEDICARE REPLACEMENT/AD VANTAGE - HMO) Jennifer Schulz [id number] Jennifer Schulz 11/30/2023 1 [employer] - DOS ON OR AFTER 2022 - DUAL ELIGIBLE - PENITENTIARY OPTIONS AND ONE CARE (MEDICARE REPLACEMENT/AD VANTAGE - HMO) Jennifer Schulz [id number] Jennifer Schulz 08/17/2024 1 [employer] - DOS ON OR AFTER 2022 - DUAL ELIGIBLE - PENITENTIARY OPTIONS AND ONE CARE (MEDICARE REPLACEMENT/AD VANTAGE - HMO) Jennifer Schulz [id number] Jennifer Schulz Notes Date Note Type Note Provider Name and Address Organization Details Recorded Time 07/07/2023 text/html HPI: 62 yo female w pmh of DMII, exocrine pancreatic insufficiency, CKD, CVA on anticoag, aneurysm of neck, COPD, Siezure disorder,fibromyalgia, degenerative disc disease, osteopenia,falls GERD, positive TB test in 2022, calls stating she has back pain that has been so severe for over a week that she can barely sleep. She says the pain is 10/10, aching twinging pain . She says nothing helps it and she has been taking tylenol and motrin which is now making her bleed out my butt . She can not recall any strenuous movements she could have done, but then tells me she has fallen numerous times because she has been seizing every day for a month and a half . I advised the ER, she declines. She asks if she can have a lidocaine patch, stated I would need to speak with my provider about the other issues she was having. I spoke with BRAKE ASSEMBLER about Jennifer's issues, ER was advised but is aware Jennifer refused. Agreeable to insted visit and following insted notes for follow up suggestions. She says she has not followed up with neurologist as she no longer has a neurologist, he left the practice after 32 years ...................... ...................... ...................... ...................... ...................... ...................... ......... CRC Nurse Triage Notes (Lizz Peace): Comments: CRC RN DID NOT NEED FURTHER INFO ...................... ...................... ...................... ...................... ...................... ...................... ......... [facility] Note From Vinnie Ashby: Dispatched to the call address for the female with back pain but also advises she has been having rectal bleeding and daily seizures. Pt states she has been having seizures daily and is no longer on anticonvulsants. She also states she is having bright blood in her stools. She adamantly refuses to go to the ED. Pt states she has tried Motrin and Tylenol for her back pain with no relief. Pt states applying heat makes the pain worse but ice helps. Pt was found sitting in living room chair, CAOx4, airway open and patent, breathing non labored, able to speak in full sentences, -JVD, -HEENT, skin color appropriate for race/warm/dry, pupils PERRL, +CMSx4, Pt has tenderness in C3/4 area as well as lower lumbar with radiation into her hips. Pt does take coumadin and has appt tomorrow to have her levels checked. Pt states she was told by her doctor that she could take NSAIDs for the back pain. Pt was advised that because she is on a blood thinner and has Hx of CKD that she should NOT be taking NSAIDs. Pt was also advised that with her bleeding and current status of tonic/clonic seizures she should be evaluated in the ED. Pt was advised that she could suffer a large internal bleed or have a seizure where she falls and renders her unresponsive. Pt was advised of red flags and risks up to and including . Pt stated she understood the risks. ALL times are approx. ...................... ...................... ...................... ...................... ...................... ...................... ......... Disposition: Fulfilled SEGMD: As above. Per old records history of CKD 3, ST deficient anemia, antiphospholipid syndrome with history of CVA on Coumadin, CHF, asthma/COPD, HTN. She reports she is due her PT and INR tomorrow. We do not have the ability to draw that. Last dose of Motrin 200 mg was possibly yesterday, despite being anticoagulated. Patient reports daily seizures which sound like they are tonic-clonic and she reports being to the world for an hour plus after it. She is usually in her recliner or in bed when they occur. She denies hitting her head but she is complaining of 10 out of 10 mid cervical and lower lumbar pain without loss of bowel or bladder control or focal weakness. She denies abdominal pain nausea vomiting and states she is not straining but is having dark and bright red blood in her stools. She has had headaches on and off, but none currently. Natalie Whipple MD [address] [facility],[address], [place], [address], [employer] 07/07/2023 23:57:06 08/03/2023 text/html HPI: Patient reports a bad dry cough x 1 week with SOB and wheezing. Did 2-3 neb treatments yesterday with no relief. Today she woke up with bloody/green mucus in her throat and from her nose. Ears and nose feel clogged, has sore throat. Taking loratadine without benefit. ACADEMIC AFFAIRS MANAGER recently sick with similar symptoms- at first told she had pneumonia and then told she didn't. COVID negative. Feels like symptoms overall getting worse. ...................... ...................... ...................... ...................... ...................... ...................... ......... CRC Nurse Triage Notes (Maile Hardy): Comments: HPI reviewed. ...................... ...................... ...................... ...................... ...................... ...................... ......... [facility] Note From Vinnie Ashby: Dispatched to the call address for the female with a cough. Pt states she is going on a week now of a dry cough but today started with some sputum. Pt also complains of sinus pressure and congestion, pressure behind ears and wheezing. She denies SoB, CP, n/v/d or urinary symptoms. Pt was found sitting on living room chair, CAOx4, airway open and patent, breathing non labored, able to speak in full sentences, -JVD, -HEENT, skin PWD with good turgor, abd soft non tender/distended, pupils PERRL, +CMSx4, +wheezing in bases bilaterally. [facility] consulted. Pt given 500mg Azithromycin and 40mg PO Prednisone, script called into preferred pharmacy. Red flags discussed. ALL times are approx. ...................... ...................... ...................... ...................... ...................... ...................... ......... Disposition: Fulfilled Ana Luisa Fair MD [address] [facility],[address], [place], [address], [employer] 08/03/2023 13:27:24 09/16/2023 text/html HPI: 62 yo female w pmh of DM complicated by CKD and cataracts, HTN, anemia, obesity, COPD, smoking, depression, seizure disorder and nonepileptic seizures, insomnia, GERD, and glaucoma. On Warfarin for hx DVT , CVA. Calls in stating she had a seizure around 2am this morning and feels drunk . She says her head is pounding, when she moves positions quickly her vision goes black and when she closes her eyes. She says she can not go get her INR drawn today. She refuses the ER. I emailed maria esther, they do not draw INRs. I told her she needs to reach out to her INR team and I will send maria esther for a neruo assessment and IVF. ...................... ...................... ...................... ...................... ...................... ...................... ......... CRC Nurse Triage Notes (Maile Haryd): Comments: HPI reviewed. [facility] POC Test Results from Enzo Ortiz - [facility] Blood Glucose Measurement (1) [12:03] Blood Glucose: 258 mg/dL ...................... ...................... ...................... ...................... ...................... ...................... ......... [facility] Note From Enzo Ortiz: Dispatched to above address for neuro symptoms post seizure. On arrival patient 62 y/o F, found sitting on chair, AOX4, airway patent, speaking in full sentences, good color, in no apparent distress. Patient states she had a seizure yesterday around 1300, reports since she has been feeling drunk , states seizures are an everyday occurrence for her but has never felt like this, states she is very unsteady on her feet, reports several falls over the last 2 weeks with head strike on Warfarin with no evaluation. Patients vital signs checked. Stroke assessment, no slurred speech, no facial droop, significant weakness and arm drift on R side patient reports is worse than baseline from previous CVAs. Secondary assessment, pupils PERRL, airway patent, no JVD, trachea midline, equal chest rise and fall, lungs clear all tubbs, abdomen soft non tender, no signs of trauma, good radial pulse, skin pink warm and dry. Patients BGL checked, 158mg/dl. [facility] contacted, spoke with Dr. Whipple, advised of patient complaints and exam findings. [facility] advised immediate transport to ER for further evaluation of possible CVA. Patient initially refused but after speaking with Dr. Whipple agreed. 911 called. [facility] responded. [facility] switchboard installer given verbal report. Sawmill Hand took over patient care, transport to [facility]. SC8 clear. EOR. ...................... ...................... ...................... ...................... ...................... ...................... ......... Disposition: Fulfilled Natalie Whipple MD [address] [place] [address],[address], [place], [address], [employer] 09/17/2023 13:03:36 11/30/2023 text/html HPI: Patient calls PCP today to state last she had an allergic reaction to her Iron infusion at [facility]. She tells me Alecia CARTER (her kidney provider-ordering provider for the iron) is aware that this happened. She now needs to get her iron infusions at [facility], not [facility], because the kidney care staff told her they are switching service providers to [facility]. She got a bag of iron at [facility] when she typically gets a 10 min push at [facility]. She was instructed to take her typical 50mg of Benadryl and Tylenol prior to her infusion. Even with the pre medication she had a reaction. She said when they started the infusion, she started to fill up with gas in her abdomen. The infusions was stopped, the kidney doctor was contacted, and she didn't want to wait for his response so she ended up leaving the center and going home. She called the kidney care office and expressed this concern last , they advised she goes to the ER. She is calling us for an apt, I was able to schedule her with Dr Son on 12/01 at 1pm. She states she feels bloated still, has SOB when she exerts herself, is itchy inside and says I look . I also advised the ER, and told her Dr Son would also advise the ER, especially given the SOB and abdominal swelling. Patient declined. Sending insted per Dr Son for follow up vitals/ assessment. Visit scheduled for this . ...................... ...................... ...................... ...................... ...................... ...................... ......... CRC Nurse Triage Notes (Maile Hardy): Comments: HPI reviewed. No further information needed to process visit. ...................... ...................... ...................... ...................... ...................... ...................... ......... [facility] Note From Cas Robledo: Pt reports while receiving an iron infusion last , her abdomen began to swell and has been swollen since. Pt endorses some mild ULQ ABD discomfort but is passing stool and gas normally. Pt denies f/n/v/d. PCP f/u on . Pt is alert, NAD. VSS. Afebrile. Non focal neuro exam. Normal gait. Mild expiratory wheezing. ABD appears distended and is tender in the ULQ. No LE edema. [facility] contacted and pt advised to wait until to see the PCP. Pt instructed to seek emergent medical care for new or worsening sx, such as fever, not passing gas or stool or n/v. ...................... ...................... ...................... ...................... ...................... ...................... ......... Disposition: Fulfilled Josefina Irizarry MD [address] [place] [address],[address], [place], [address], [employer] 11/30/2023 15:28:40 08/17/2024 text/html This was a super vised home visit with switchboard installer Enzo Ortiz. HPI: 63-year-old woman with type 2 diabetes complicated by CKD and hyperglycemia, pancreatic insufficiency, HTN, anemia, hyperlipidemia, obesity, memory impairment, previous CVA, stented carotid aneurysm, antiphospholipid antibody syndrome on long-term warfarin, COPD, seizure disorder/nonepileptic seizures, depression, anxiety, insomnia, and chronic pain. Patient bent over in her recliner the week before her appt on 08/14 and popped her rib . Seen by PCP on 08/14, ordered rib series, given 30mg IM toradol in office and advised to use tylenol, heat, ice and topical pain medication. She is having no relief with these measures but can not get to her xrays until tomorrow morning, sending insted today for a toradol inj for pain management ...................... ...................... ...................... ...................... ...................... ...................... ......... CRC Nurse Triage Notes (Larissa Davila): Reason For Request: Rib pain Chief Complaints: Abdominal Pain PMH: Hypertension, Congestive Heart Failure, COPD/Asthma, Diabetes Mellitus Type 2, Stroke PMH Reviewed at 08/17/2024 14: Allergies Reviewed at 08/17/2024 14:05 Comments: Reviewed HPI, will place referral for pain evaluation/treat as indicated. Radha RN ...................... ...................... ...................... ...................... ...................... ...................... ......... [facility] Note From Enzo Ortiz: Dispatched to above address for R rib pain. On arrival patient 63 y/o F, found sitting on recliner, AOX4, airway patent, speaking in full sentences, good color, appears uncomfortable. Patient states on 08/14, she bent over the edge of her recliner to grab something and felt a pop and sharp pain on R flank, pain has been moderate to severe exacerbated by movement breathing etc. seen by PCP yesterday scheduled for x-ray tomorrow and given a Toradol injection for pain, today pain is severe, spoke with her PCP who called [facility] requesting an additional Toradol injection. Patients vital signs checked. Secondary assessment, pupils PERRL, airway patent, no JVD, trachea midline, equal chest rise and fall, lungs clear all tubbs, pain to palpation to R flank, abdomen soft non tender, no signs of trauma, good radial pulse, skin pink warm and dry. [facility] contacted, spoke with Dr. Guerrero, advised of patient complaints and exam findings. [facility] orders 30mg Toradol given IM, will prescribe Lidocaine patches. Patient administered 30mg Toradol IM. Patient advised of red flags home care and need for follow up. Patient agrees with this plan, will follow up with PCP tomorrow after x-ray. Patient has no additional questions or concerns at this time. SC8 clear. EOR. [facility] Medication Orders: ketorolac 60 mg/2 mL intramuscular solution: Administered ...................... ...................... ...................... ...................... ...................... ...................... ......... [facility] Consulted: David Guerrero ...................... ...................... ...................... ...................... ...................... ...................... ......... Disposition: Fulfilled David Guerrero MD [address] [facility],[address], [place], [address], [employer] 08/17/2024 18:11:36 OBGyn Episode No OBEpisode recorded.
--- OUTSIDE RECORDS SUMMARY | 2024-08-29 10:36 | XMS_ITS | Encounter Summary ---
Author Organization [facility] Address [address] [place] [address] Phone Care Team Providers Care Security Monitor Name Role Phone Sahra Son MD Primary Care Provider + Encounter Details Date Type Department Care Team (Late Contact Info) Description 03/31/2024 Orders Only [facility] [address] [place] [address] India Davalos [address] [place] [address] Chronic kidney disease, stage 2 [...] Visit [facility] [address] [place] [address] Barry Reyes MD [address] [place] [address] documented as of this encounter Visit Diagnoses Diagnosis Chronic kidney disease, stage 2 (mild) Anemia in chronic kidney disease Iron deficiency anemia, not otherwise specified documented in this encounter Care Teams Security Monitor Relationship Specialty Start Date End Date Sahra Son MD [facility] [place] [address] PCP - General Internal Medicine 10/28/22 documented as of this encounter
--- OUTSIDE RECORDS SUMMARY | 2024-08-29 10:36 | XMS_ITS | Encounter Summary ---
Author Organization [facility] [employer] [facility] Address [address] [place] [address] Care Team Providers Care Tile Fitter Name Role Phone Vinnie Santizo Primary Care Provider Sahra Keith MD Primary Care Provider Marko Fernandez MD Unavailable [phone] Reason for Visit * Reason Comments E-prescribe Rx Request Encounter Details Date Type Department Care Team Description 11/26/2017 Refill Pulmonology - [place] [address] [facility] [address] [place] [id number] Eneida Acuña NP E-prescribe Rx Request Social [...] YES Patients current insurance carrier is: Payor: [employer] [facility] [employer] MCR / Plan: [facility] / Product Type: HMO [id number] documented in this encounter Plan of Treatment Not on file documented as of this encounter Visit Diagnoses Diagnosis Systemic lupus erythematosus, unspecified SLE type, unspecified organ involvement status (HCC) Pulmonary nodule Solitary pulmonary nodule Tobacco abuse Tobacco use disorder Asthma, unspecified asthma severity, unspecified whether complicated, unspecified whether persistent Multiple environmental allergies Cigarette smoker Tobacco use disorder documented in this encounter Care Teams Tile Fitter Relationship Specialty Start Date End Date Vinnie Santizo PCP - General Internal Medicine 03/30/17 08/30/22 Sahra Son MD PCP - General Internal Medicine 08/31/22 Marko Spaulding MD Specialist Cardiology 09/23/22 documented as of this encounter
--- OUTSIDE RECORDS SUMMARY | 2024-08-29 10:36 | XMS_ITS | Encounter Summary ---
Author Organization [employer] [facility] Address [address] [place] [address] Care Team Providers Care Track Laborer Name Role Phone Vinnie Santizo Primary Care Provider Sahra Keith MD Primary Care Provider Marko Fernandez MD Unavailable [phone] Reason for Visit * Reason Comments E-prescribe Rx Request Encounter Details Date Type Department Care Team Description 05/07/2018 Refill Pulmonology - [place] [address] [facility] [address] [place] [phone] Royer Schulz MD E-prescribe Rx Request Social [...] NO Patients current insurance carrier is: Payor: [facility] MCR / Plan: [facility] / Product Type: HMO [id number] documented in this encounter Plan of Treatment [...] persistent documented in this encounter Care Teams Track Laborer Relationship Specialty Start Date End Date Vinnie Santizo PCP - General Internal Medicine 03/30/17 08/30/22 Sahra Son MD PCP - General Internal Medicine 08/31/22 Marko Spaulding MD Specialist Cardiology 09/23/22 documented as of this encounter
--- OUTSIDE RECORDS SUMMARY | 2024-08-29 10:36 | XMS_ITS | Encounter Summary ---
Author Organization [facility] [employer] [facility] Address [address] [place] [address] Care Team Providers Care Safety Director Name Role Phone Sahra Son MD Primary Care Provider Paula vailable Marko Spaulding MD Unavailable [phone] Encounter Details Date Type Department Care Team Description 11/16/2022 Orders Only Pulmonology - [place] [address] [facility] [address] [place] [phone] Betty Morillo MD [address] [facility] [address] [place] [phone] Social History Tobacco Use Types Packs/Day Years [...] filedocumented in this encounter Care Teams Safety Director Relationship Specialty Start Date End Date Sahra Son MD PCP - General Internal Medicine 08/31/22 Marko Spaulding MD Specialist Cardiology 09/23/22 documented as of this encounter
--- OUTSIDE RECORDS SUMMARY | 2024-08-29 10:36 | XMS_ITS | Encounter Summary ---
Author Organization [facility] [employer] [facility] Address [address] [place] [address] Care Team Providers Care Type Mapper Name Role Phone Tammie, Pcp Primary Care Provider Vinnie Rodriguez Primary Care Provider Sahra Keith MD Primary Care Provider Paula Marko Ferreira MD Unavailable [phone] Encounter Details Date Type Department Care Team Description 02/24/2017 [facility] Medical Records [address] [place] [address] Social History Tobacco Use Types Packs/Day Years [...] on filedocumented in this encounter Care Teams Type Mapper Relationship Specialty Start Date End Date Tammie, Pcp PCP - General Internal Medicine 07/24/13 03/29/17 Vinnie Santizo PCP - General Internal Medicine 03/30/17 08/30/22 Sahra Son MD PCP - General Internal Medicine 08/31/22 Marko Spaulding MD Specialist Cardiology 09/23/22 documented as of this encounter
--- OUTSIDE RECORDS SUMMARY | 2024-08-29 10:36 | XMS_ITS | Encounter Summary ---
Author Organization [employer] [facility] Address [address] [place] [address] Care Team Providers Care It Security Consulting Director Name Role Phone Vinnie Santizo Primary Care Provider Sahra Keith MD Primary Care Provider Marko Fernandez MD Unavailable [phone] Encounter Details Date Type Department Care Team Description 08/13/2018 [facility] Medical Records [address] [place] [id number] Social History Tobacco Use Types Packs/Day Years [...] filedocumented in this encounter Care Teams It Security Consulting Director Relationship Specialty Start Date End Date Vinnie Santizo PCP - General Internal Medicine 03/30/17 08/30/22 Sahra Son MD PCP - General Internal Medicine 08/31/22 Marko Spaulding MD Specialist Cardiology 09/23/22 documented as of this encounter
--- OUTSIDE RECORDS SUMMARY | 2024-08-29 10:36 | XMS_ITS | Encounter Summary ---
Author Organization [facility] Address [address] [place] [address] Care Team Providers Care Video Game Designer Name Role Phone Vinnie Santizo Primary Care Provider Sahra Keith MD Primary Care Provider Marko Fernandez MD Unavailable [phone] Reason for Visit * Reason Onset Date Comments Vomiting 10/13/2017 Pt unable to per form the PFT, due to nausea and vomitting, Pt was able to perform the 6 minute walk, Dhruv Guerra COSTUME CUTTER aware, Pt will be rescheduled when she has her fu visit with Eneida Encounter Details Date Type Department Care Team Description 10/13/2017 Telephone Pulmonology - [place] [address] [facility] [address] [place] [address] Royer Schulz MD Vomiting (Pt unable to perform the PFT, due to nausea and vomitting, Pt was able to perform the 6 minute walk, Dhruv Guerra COSTUME CUTTER aware, Pt will be rescheduled when she has her fu visit with Eneida) Social History Tobacco Use Types Packs/Day Years [...] on filedocumented in this encounter Care Teams Video Game Designer Relationship Specialty Start Date End Date Vinnie Santizo PCP - General Internal Medicine 03/30/17 08/30/22 Sahra Son MD PCP - General Internal Medicine 08/31/22 Marko Spaulding MD Specialist Cardiology 09/23/22 documented as of this encounter
== END 2024-08-29 09:55 | disposition home or self-care (01) ==
LOC: HO.ACS 09:27
PROVIDERS: PCP Internal Medicine; Visit Provider Internal Medicine Medical Oncology
DX: Z79.01 Long term (current) use of anticoagulants (principal)

== ENCOUNTER → 2024-08-29 09:27 | Outpatient (BNVA) | payer OTHER, SELFPAY | PROVIDERS: PCP Internal Medicine; Visit Provider Internal Medicine Medical Oncology | DX: Z86.718 Personal history of other venous thrombosis and embolism (principal); Z51.81 Encounter for therapeutic drug level monitoring; Z79.01 Long term (current) use of anticoagulants | CPT/HCPCS: 85610; 99211 ==

== ENCOUNTER 2024-09-05 08:51 | Outpatient (AMB) | payer OTHER, SELFPAY ==
--- OUTSIDE RECORDS SUMMARY | 2024-09-05 09:14 | XMS_ITS | Encounter Summary ---
Author Organization [facility] Address [address] [place] [address] Phone Care Team Providers Care Blood Bank Technologist Name Role Phone Sahra Son MD Primary Care Provider + Encounter Details Date Type Department Care Team ([facility] Contact Info) Description 09/28/2022 Documentation Only [facility] [address] [place] [address] India Davalos [address] [place] [address] Social History Tobacco Use Types [...] Upcoming Encounters Date Type Department Care Team ([facility] Contact Info) Description 11/23/2024 12:50 PM EDT Office Visit [facility] [address] [place] [address] Barry Reyes MD [address] [place] [address] [place] [address] documented as of this encounter Visit Diagnoses Not on filedocumented in this encounter Care Teams Blood Bank Technologist Relationship Specialty Start Date End Date Sahra Son MD [address] [address] PCP - General Internal Medicine 10/28/22 documented as of this encounter
--- OUTSIDE RECORDS SUMMARY | 2024-09-05 09:14 | XMS_ITS | Encounter Summary ---
Author Organization [facility] Address [address] [place] [address] Phone Care Team Providers Care Market Research Associate Name Role Phone Sahra Son MD Primary Care Provider + Encounter Details Date Type Department Care Team ([facility] Contact Info) Description 09/28/2022 Documentation Only [facility] [address] [place] [address] India Davalos [address] [place] [address] Social History Tobacco Use Types [...] Upcoming Encounters Date Type Department Care Team ([facility] Contact Info) Description 11/23/2024 12:50 PM EDT Office Visit [facility] [address] [place] [address] Barry Reyes MD [address] [place] [address] [place] [address] documented as of this encounter Visit Diagnoses Not on filedocumented in this encounter Care Teams Market Research Associate Relationship Specialty Start Date End Date Sahra Son MD [address] [address] PCP - General Internal Medicine 10/28/22 documented as of this encounter
--- OUTSIDE RECORDS SUMMARY | 2024-09-05 09:14 | XMS_ITS | Encounter Summary ---
Author Organization [facility] Address [address] [place] [address] Phone Care Team Providers Care Field Contact Person Name Role Phone Sahra Son MD Primary Care Provider + Encounter Details Date Type Department Care Team ([facility] Contact Info) Description 06/18/2021 Documentation Only [facility] [address] [place] [address] India Davalos [address] [place] [address] Social History Tobacco Use Types [...] [facility] [address] [place] [address] Barry Reyes MD [address] [place] [address] [place] [address] documented as of this encounter Visit Diagnoses Not on filedocumented in this encounter Care Teams Field Contact Person Relationship Specialty Start Date End Date Sahra Son MD [address] [address] PCP - General Internal Medicine 10/28/22 documented as of this encounter
--- OUTSIDE RECORDS SUMMARY | 2024-09-05 09:14 | XMS_ITS | Encounter Summary ---
Author Organization [facility] Address [address] [place] [address] Phone Care Team Providers Care Sunglass Clip Attacher Name Role Phone Sahra Son MD Primary Care Provider + Encounter Details Date Type Department Care Team ([facility] Contact Info) Description 09/28/2022 Documentation Only [facility] [address] [place] [address] India Davalos [address] [place] [address] Social History Tobacco Use Types [...] Upcoming Encounters Date Type Department Care Team ([facility] Contact Info) Description 11/23/2024 12:50 PM EDT Office Visit [facility] [address] [place] [address] Barry Reyes MD [address] [place] [address] [place] [address] documented as of this encounter Visit Diagnoses Not on filedocumented in this encounter Care Teams Sunglass Clip Attacher Relationship Specialty Start Date End Date Sahra Son MD [address] [address] PCP - General Internal Medicine 10/28/22 documented as of this encounter
--- OUTSIDE RECORDS SUMMARY | 2024-09-05 09:15 | XMS_ITS | Encounter Summary ---
Author Organization [facility] Address [address] [place] [address] Phone Care Team Providers Care Veterinarian Epidemiologist Name Role Phone Sahra Son MD Primary Care Provider + Encounter Details Date Type Department Care Team ([facility] Contact Info) Description 11/30/2023 Documentation Only [facility] [address] [place] [address] India Davalos [address] [place] [address] Social History Tobacco Use Types [...] [facility] [address] [place] [address] Barry Reyes MD [address] [place] [address] [place] [address] documented as of this encounter Visit Diagnoses Not on filedocumented in this encounter Care Teams Veterinarian Epidemiologist Relationship Specialty Start Date End Date Sahra Son MD [address] [address] PCP - General Internal Medicine 10/28/22 documented as of this encounter
--- OUTSIDE RECORDS SUMMARY | 2024-09-05 09:15 | XMS_ITS | Encounter Summary ---
Author Organization [facility] Address [address] [place] [address] Phone Care Team Providers Care Shipmaster Name Role Phone Sahra Son MD Primary Care Provider + Encounter Details Date Type Department Care Team ([facility] Contact Info) Description 11/11/2023 Documentation Only [facility] [address] [place] [address] India Davalos [address] [place], [...] [facility] [address] [place] [address] Barry Reyes MD [address] [place] [address] [place] [address] documented as of this encounter Visit Diagnoses Not on filedocumented in this encounter Care Teams Shipmaster Relationship Specialty Start Date End Date Sahra Son MD [address] [address] PCP - General Internal Medicine 10/28/22 documented as of this encounter
--- OUTSIDE RECORDS SUMMARY | 2024-09-05 09:15 | XMS_ITS | Encounter Summary ---
Author Organization [facility] Address [address] [place] [address] Phone Care Team Providers Care Slurry Tank Tender Name Role Phone Sahra Son MD Primary Care Provider + Encounter Details Date Type Department Care Team ([facility] Contact Info) Description 11/11/2023 Documentation Only [facility] [address] [place] [address] India Davalos [address] [place] [address] Social History Tobacco Use Types [...] [facility] [address] [place] [address] Barry Reyes MD [address] [place] [address] [place] [address] documented as of this encounter Visit Diagnoses Not on filedocumented in this encounter Care Teams Slurry Tank Tender Relationship Specialty Start Date End Date Sahra Son MD [address] [address] PCP - General Internal Medicine 10/28/22 documented as of this encounter
--- OUTSIDE RECORDS SUMMARY | 2024-09-05 09:15 | XMS_ITS | Encounter Summary ---
Author Organization [facility] Address [address] [place] [address] Phone Care Team Providers Care Clinical Data Specialist Name Role Phone Sahra Son MD Primary Care Provider + Encounter Details Date Type Department Care Team ([facility] Contact Info) Description 09/18/2022 Documentation Only [facility] [address] [place] [address] India Davalos [address] [place] [address] Social History Tobacco Use Types [...] Encounters Date Type Department Care Team ([facility] Contact Info) Description 11/23/2024 12:50 PM EDT Office Visit [facility] [address] [place] [address] Barry Reyes MD [address] [place] [address] [place] [address] documented as of this encounter Visit Diagnoses Not on filedocumented in this encounter Care Teams Clinical Data Specialist Relationship Specialty Start Date End Date Sahra Son MD [address] [address] PCP - General Internal Medicine 10/28/22 documented as of this encounter
--- OUTSIDE RECORDS SUMMARY | 2024-09-05 09:15 | XMS_ITS | Encounter Summary ---
Author Organization [facility] Address [address] [place] [address] Phone Care Team Providers Care Food And Beverage Manager Name Role Phone Sahra Son MD Primary Care Provider + Encounter Details Date Type Department Care Team ([facility] Contact Info) Description 11/17/2023 Documentation Only [facility] [address] [place] [address] India Davalos [address] [place] [address] Social History Tobacco Use Types [...] [facility] [address] [place] [address] Barry Reyes MD [address] [place] [address] [place] [address] documented as of this encounter Visit Diagnoses Not on filedocumented in this encounter Care Teams Food And Beverage Manager Relationship Specialty Start Date End Date Sahra Son MD [address] [address] PCP - General Internal Medicine 10/28/22 documented as of this encounter
--- OUTSIDE RECORDS SUMMARY | 2024-09-05 09:15 | XMS_ITS | Encounter Summary ---
Author Organization [facility] Address [address] [place] [address] Phone Care Team Providers Care Boiler Fitter Name Role Phone Sahra Son MD Primary Care Provider + Encounter Details Date Type Department Care Team (Late st Contact Info) Description 07/07/2024 Orders Only [facility] [address] [place] [address] India Davalos [address] [place] [address] Anemia in chronic kidney disease; [...] Visit [facility] [address] [place] [address] Barry Reyes MD [address] [facility] [place] [address] documented as of this encounter Visit Diagnoses Diagnosis Anemia in chronic kidney disease Other iron deficiency anemia Chronic kidney disease, stage 2 (mild) documented in this encounter Care Teams Boiler Fitter Relationship Specialty Start Date End Date Sahra Son MD [facility] [place] [address] PCP - General Internal Medicine 10/28/22 documented as of this encounter
--- OUTSIDE RECORDS SUMMARY | 2024-09-05 09:15 | XMS_ITS | Encounter Summary ---
Author Organization [facility] Address [address] [place] [address] Phone Care Team Providers Care Back Joiner Name Role Phone Sahra Son MD Primary Care Provider + Encounter Details Date Type Department Care Team ([facility] Contact Info) Description 08/11/2022 Documentation Only [facility] [address] [place] [address] India Davalos [address] [place] [address] Social History Tobacco Use Types [...] [facility] [address] [place] [address] Barry Reyes MD [address] [place] [address] [place] [address] documented as of this encounter Visit Diagnoses Not on filedocumented in this encounter Care Teams Back Joiner Relationship Specialty Start Date End Date Sahra Son MD [address] [address] PCP - General Internal Medicine 10/28/22 documented as of this encounter
--- OUTSIDE RECORDS SUMMARY | 2024-09-05 09:15 | XMS_ITS | Encounter Summary ---
Author Organization [facility] Address [address] [place] [address] Phone Care Team Providers Care Cloud Software Engineer Name Role Phone Sahra Son MD Primary Care Provider + Encounter Details Date Type Department Care Team ([facility] Contact Info) Description 11/21/2021 Documentation Only [facility] [address] [place] [address] India Davalos [address] [place] [address] Social History Tobacco Use Types [...] [facility] [address] [place] [address] Barry Reyes MD [address] [place] [address] [place] [address] documented as of this encounter Visit Diagnoses Not on filedocumented in this encounter Care Teams Cloud Software Engineer Relationship Specialty Start Date End Date Sahra Son MD [address] [address] PCP - General Internal Medicine 10/28/22 documented as of this encounter
--- OUTSIDE RECORDS SUMMARY | 2024-09-05 09:15 | XMS_ITS | Encounter Summary ---
Author Organization [facility] Address [address] [place] [address] Phone Care Team Providers Care Commercial Green Building Designer Name Role Phone Sahra Son MD Primary Care Provider + Encounter Details Date Type Department Care Team ([facility] Contact Info) Description 03/23/2024 Documentation Only [facility] [address] [place] [address] India Davalos [address] [place], [...] Upcoming Encounters Date Type Department Care Team ([facility] Contact Info) Description 11/23/2024 12:50 PM EDT Office Visit [facility] [address] [place] [address] Barry Reyes MD [address] [place] [address] [place] [address] documented as of this encounter Visit Diagnoses Not on filedocumented in this encounter Care Teams Commercial Green Building Designer Relationship Specialty Start Date End Date Sahra Son MD [address] [address] PCP - General Internal Medicine 10/28/22 documented as of this encounter
--- OUTSIDE RECORDS SUMMARY | 2024-09-05 09:15 | XMS_ITS | Encounter Summary ---
Author Organization [facility] Address [address] [place] [address] Phone Care Team Providers Care Platform Software Engineer Name Role Phone Sahra Son MD Primary Care Provider + Encounter Details Date Type Department Care Team ([facility] Contact Info) Description 08/11/2022 Documentation Only [facility] [address] [place] [address] India Davalos [address] [place] [address] Social History Tobacco Use Types [...] [facility] [address] [place] [address] Barry Reyes MD [address] [place] [address] [place] [address] documented as of this encounter Visit Diagnoses Not on filedocumented in this encounter Care Teams Platform Software Engineer Relationship Specialty Start Date End Date Sahra Son MD [address] [address] PCP - General Internal Medicine 10/28/22 documented as of this encounter
--- OUTSIDE RECORDS SUMMARY | 2024-09-05 09:15 | XMS_ITS | Encounter Summary ---
Author Organization [facility] Address [address] [place] [address] Phone Care Team Providers Care Automotive Sales Associate Name Role Phone Sahra Son MD Primary Care Provider + Encounter Details Date Type Department Care Team ([facility] Contact Info) Description 03/11/2023 Documentation Only [facility] [address] [place] [address] India Davalos [address] [place] [address] Social History Tobacco Use Types [...] Upcoming Encounters Date Type Department Care Team ([facility] Contact Info) Description 11/23/2024 12:50 PM EDT Office Visit [facility] [address] [place] [address] Barry Reyes MD [address] [place] [address] [place] [address] documented as of this encounter Visit Diagnoses Not on filedocumented in this encounter Care Teams Automotive Sales Associate Relationship Specialty Start Date End Date Sahra Son MD [address] [address] PCP - General Internal Medicine 10/28/22 documented as of this encounter
--- OUTSIDE RECORDS SUMMARY | 2024-09-05 09:15 | XMS_ITS | Encounter Summary ---
Author Organization [facility] Address [address] [place] [address] Phone Care Team Providers Care Poultry Raiser Name Role Phone Sahra Son MD Primary Care Provider + Encounter Details Date Type Department Care Team ([facility] Contact Info) Description 06/22/2022 Documentation Only [facility] [address] [place] [address] India Davalos [address] [place] [address] Social History Tobacco Use Types [...] [facility] [address] [place] [address] Barry Reyes MD [address] [place] [address] [place] [address] documented as of this encounter Visit Diagnoses Not on filedocumented in this encounter Care Teams Poultry Raiser Relationship Specialty Start Date End Date Sahra Son MD [address] [address] PCP - General Internal Medicine 10/28/22 documented as of this encounter
--- OUTSIDE RECORDS SUMMARY | 2024-09-05 09:15 | XMS_ITS | Encounter Summary ---
Author Organization [facility] Address [address] [place] [address] Phone Care Team Providers Care Coil Winding Supervisor Name Role Phone Sahra Son MD Primary Care Provider + Encounter Details Date Type Department Care Team ([facility] Contact Info) Description 06/17/2022 Documentation Only [facility] [address] [place] [address] India Davalos [address] [place] [address] Social History Tobacco Use Types [...] [facility] [address] [place] [address] Barry Reyes MD [address] [place] [address] [place] [address] documented as of this encounter Visit Diagnoses Not on filedocumented in this encounter Care Teams Coil Winding Supervisor Relationship Specialty Start Date End Date Sahra Son MD [address] [address] PCP - General Internal Medicine 10/28/22 documented as of this encounter
--- OUTSIDE RECORDS SUMMARY | 2024-09-05 09:15 | XMS_ITS | Encounter Summary ---
Author Organization [facility] Address [address] [place] [address] Phone Care Team Providers Care Brilliandeer Looper Name Role Phone Sahra Son MD Primary Care Provider + Encounter Details Date Type Department Care Team ([facility] Contact Info) Description 09/28/2022 Documentation Only [facility] [address] [place] [place] [address] India Davalos [address] [place] [address] Social History Tobacco Use Types [...] Upcoming Encounters Date Type Department Care Team ([facility] Contact Info) Description 11/23/2024 12:50 PM EDT Office Visit [facility] [address] [place] [place] [address] Barry Reyes MD [address] [place] [address] [place] [address] documented as of this encounter Visit Diagnoses Not on filedocumented in this encounter Care Teams Brilliandeer Looper Relationship Specialty Start Date End Date Sahra Son MD [address] [address] PCP - General Internal Medicine 10/28/22 documented as of this encounter
--- OUTSIDE RECORDS SUMMARY | 2024-09-05 09:15 | XMS_ITS | Encounter Summary ---
Author Organization [facility] Address [address] [place] [address] Phone Care Team Providers Care Green Chain Marker Name Role Phone Sahra Son MD Primary Care Provider + Encounter Details Date Type Department Care Team (Late Contact Info) Description 06/30/2020 Orders Only [facility] [address] [place] [address] Carol Whelan [address] [place] [address] Iron deficiency anemia, not otherwise [...] Visit [facility] [address] [place] [address] Barry Reyes MD [address] [facility] [place] [address] documented as of this encounter Visit Diagnoses Diagnosis Iron deficiency anemia, not otherwise specified Chronic kidney disease, Stage II (mild) documented in this encounter Care Teams Green Chain Marker Relationship Specialty Start Date End Date Sahra Son MD [address] [place] [address] PCP - General Internal Medicine 10/28/22 documented as of this encounter
--- OUTSIDE RECORDS SUMMARY | 2024-09-05 09:15 | XMS_ITS | Encounter Summary ---
Author Organization [facility] Address [address] [place] [address] Phone Care Team Providers Care Hr Operations Advisor Name Role Phone Sahra Son MD Primary Care Provider + Encounter Details Date Type Department Care Team ([facility] Contact Info) Description 04/14/2022 Documentation Only [facility] [address] [place] [address] India Davalos [address] [place] [address] Social History Tobacco Use Types [...] Upcoming Encounters Date Type Department Care Team ([facility] Contact Info) Description 11/23/2024 12:50 PM EDT Office Visit [facility] [address] [place] [address] Barry Reyes MD [address] [place] [address] [place] [address] documented as of this encounter Visit Diagnoses Not on filedocumented in this encounter Care Teams Hr Operations Advisor Relationship Specialty Start Date End Date Sahra Son MD [address] [address] PCP - General Internal Medicine 10/28/22 documented as of this encounter
--- OUTSIDE RECORDS SUMMARY | 2024-09-05 09:15 | XMS_ITS | Encounter Summary ---
Author Organization [facility] Address [address] [place] [address] Phone Care Team Providers Care Slab Inspector Name Role Phone Sahra Son MD Primary Care Provider + Encounter Details Date Type Department Care Team (Late st Contact Info) Description 06/09/2024 Orders Only [facility] [address] [place] [address] India Davalos [address] [place] [address] Anemia in chronic kidney disease; [...] Visit [facility] [address] [place] [address] Barry Reyes MD [address] [facility] [place] [address] documented as of this encounter Visit Diagnoses Diagnosis Anemia in chronic kidney disease Other iron deficiency anemia Chronic kidney disease, stage 2 (mild) documented in this encounter Care Teams Slab Inspector Relationship Specialty Start Date End Date Sahra Son MD [facility] [place] [address] PCP - General Internal Medicine 10/28/22 documented as of this encounter
--- OUTSIDE RECORDS SUMMARY | 2024-09-05 09:15 | XMS_ITS | Encounter Summary ---
Author Organization [facility] Address [address] [place] [address] Phone Care Team Providers Care Stave And Bolt Equalizer Name Role Phone Sahra Son MD Primary Care Provider + Encounter Details Date Type Department Care Team ([facility] Contact Info) Description 12/31/2023 Documentation Only [facility] [address] [place] [address] India Davalos [address] [place], [place] [...] [facility] [address] [place] [address] Barry Reyes MD [address] [place] [address] [place] [address] documented as of this encounter Visit Diagnoses Not on filedocumented in this encounter Care Teams Stave And Bolt Equalizer Relationship Specialty Start Date End Date Sahra Son MD [address] [address] PCP - General Internal Medicine 10/28/22 documented as of this encounter
--- OUTSIDE RECORDS SUMMARY | 2024-09-05 09:15 | XMS_ITS | Encounter Summary ---
Author Organization [facility] Address [address] [place] [address] Phone Care Team Providers Care Crm Manager Name Role Phone Sahra Son MD Primary Care Provider + Encounter Details Date Type Department Care Team ([facility] Contact Info) Description 12/23/2021 Documentation Only [facility] [address] [place] [address] Juan Jose Li MD [address] [place] [address] [place] [address] Social History Tobacco Use Types [...] [facility] [address] [place] [address] Barry Reyes MD [address] [place] [address] [place] [address] documented as of this encounter Visit Diagnoses Not on filedocumented in this encounter Care Teams Crm Manager Relationship Specialty Start Date End Date Sahra Son MD [address] [address] PCP - General Internal Medicine 10/28/22 documented as of this encounter
--- OUTSIDE RECORDS SUMMARY | 2024-09-05 09:15 | XMS_ITS | Encounter Summary ---
Author Organization [facility] Address [address] [place] [address] Phone Care Team Providers Care Button Tacker Name Role Phone Sahra Son MD Primary Care Provider + Encounter Details Date Type Department Care Team ([facility] Contact Info) Description 11/11/2023 Documentation Only [facility] [address] [place] [address] nIdia Davalos [address] [place] [address] Social History Tobacco Use [...] Visit [facility] [address] [place] [address] Barry Reyes MD [address] [place] [address] [place] [address] documented as of this encounter Visit Diagnoses Not on filedocumented in this encounter Care Teams Button Tacker Relationship Specialty Start Date End Date Sahra Son MD [address] [address] PCP - General Internal Medicine 10/28/22 documented as of this encounter
--- OUTSIDE RECORDS SUMMARY | 2024-09-05 09:15 | XMS_ITS | Encounter Summary ---
Author Organization [facility] Address [address] [place] [address] Phone Care Team Providers Care Angle Shear Operator Name Role Phone Sahra Son MD Primary Care Provider + Encounter Details Date Type Department Care Team ([facility] Contact Info) Description 03/22/2024 Documentation Only [facility] [address] [place] [address] India Davalos [address] [place], [place] [...] [facility] [address] [place] [address] Barry Reyes MD [address] [place] [address] [place] [address] documented as of this encounter Visit Diagnoses Not on filedocumented in this encounter Care Teams Angle Shear Operator Relationship Specialty Start Date End Date Sahra Son MD [address] [address] PCP - General Internal Medicine 10/28/22 documented as of this encounter
--- OUTSIDE RECORDS SUMMARY | 2024-09-05 09:15 | XMS_ITS | Encounter Summary ---
Author Organization [facility] Address [address] [place] [address] Phone Care Team Providers Care Writer Technical Publications Name Role Phone Sahra Son MD Primary Care Provider + Encounter Details Date Type Department Care Team (Late Contact Info) Description 02/04/2024 Orders Only [facility] [address] [place] [address] India Davalos [address] [place] [address] Chronic kidney disease, stage 2 [...] Visit [facility] [address] [place] [address] Barry Reyes MD [address] [place] [address] [place] [address] documented as of this encounter [...] Glucose 169(H) 70 - 99 mg/dL [facility] BUN 16 8 - 27 mg/dL [facility] Creatinine 1.00 0.57 - 1.00 mg/dL [facility] eGFR CKD-EPI CR 2020 63 >59 mL/min/1.7 3 [facility] BUN/Creatinine Ratio 16 12 - 28 [facility] Sodium 138 134 - 144 mmol/L [facility] Potassium 4.8 3.5 - 5.2 mmol/L [facility] Chloride 100 96 - 106 mmol/L [facility] Bicarbonate (CO2) 22 20 - 29 mmol/L [facility] Calcium 9.1 8.7 - 10.3 mg/dL [facility] Albumin 4.1 3.9 - 4.9 g/dL [facility] Phosphorus 4.2 3.0 - 4.3 mg/dL [facility] Blood (Blood, Venous) 02/22/2024 8:29 AM EDT 02/22/2024 Barry Reyes MD LAB BLOOD ORDERABLES Final Re sult Performing Organization Address [facility]/ZIP Co de Phone Number [facility] [address] [place] [address] * Ferritin (02/22/2024 8:29 AM EDT) Ferritin 47 15 - 150 ng/mL [facility] Blood (Blood, Venous) 02/22/2024 8:29 AM EDT 02/22/2024 Barry Reyes MD LAB BLOOD ORDERABLES Final Re sult Performing Organization Address [facility] de Phone Number [facility] [address] [place] [address] * (ABNORMAL) Iron Panel (Fe, TIBC, TSAT) (02/22/2024 8:29 AM EDT) Iron 39 27 - 139 ug/dL [facility] TIBC 310 250 - 450 ug/dL [facility] UIBC 271 118 - 369 ug/dL [facility] Iron Saturation (TSat) 13(L) 15 - 55 % [facility] Blood (Blood, Venous) 02/22/2024 8:29 AM EDT 02/22/2024 Barry Reyes MD LAB BLOOD ORDERABLES Final Re sult Performing Organization Address City/[facility]/ZIP Co de Phone Number [facility] [address] [place] [address] * (ABNORMAL) CBC and Differential (02/22/2024 8:29 AM EDT) [facility] Signature WBC 5.9 3.4 - 10.8 x10E3/uL [facility] RBC 5.33(H) 3.77 - 5.28 x10E6/uL [facility] Hemoglobin 10.3(L) 11.1 - 15.9 g/dL [facility] Hematocrit 35.1 34.0 - 46.6 % [facility] MCV 66(L) 79 - 97 fL [facility] MCH 19.3(L) 26.6 - 33.0 pg [facility] MCHC 29.3(L) 31.5 - 35.7 g/dL [facility] RDW 19.3(H) 11.7 - 15.4 % [facility] Platelets 174 150 - 450 x10E3/uL [facility] Neutrophils Relative 71 Not Estab. % [facility] Lymphocytes Relative 21 Not Estab. % [facility] Monocytes 5 Not Estab. % [facility] Eosinophils Relative 1 Not Estab. % [facility] Basophils Relative 1 Not Estab. % [facility] Neutrophils Absolute 4.2 1.4 - 7.0 x10E3/uL [facility] Lymphocytes Absolute 1.3 0.7 - 3.1 x10E3/uL [facility] Monocytes Absolute 0.3 0.1 - 0.9 x10E3/uL [facility] Eosinophils Absolute 0.1 0.0 - 0.4 x10E3/uL [facility] Basophils Absolute 0.0 0.0 - 0.2 x10E3/uL [facility] Immature Granulocytes 1 Not Estab. % [facility] Immature Grans (Absolute) 0.0 0.0 - 0.1 x10E3/uL [facility] Blood (Blood, Venous) 02/22/2024 8:29 AM EDT 02/22/2024 us Barry Reyes MD LAB BLOOD ORDERABLES Final Re sult [facility] [address] [place] [address] documented in this encounter Visit Diagnoses Diagnosis Chronic kidney disease, stage 2 (mild) Anemia in chronic kidney disease Iron deficiency anemia, not otherwise specified documented in this encounter Care Teams Writer Technical Publications Relationship Specialty Start Date End Date Sahra Son MD [address] [place] [address] PCP - General Internal Medicine 10/28/22 documented as of this encounter
--- OUTSIDE RECORDS SUMMARY | 2024-09-05 09:15 | XMS_ITS | Encounter Summary ---
Author Organization [facility] Address [address] [place] [address] Phone Care Team Providers Care Pinion Sorter Name Role Phone Sahra Son MD Primary Care Provider + Encounter Details Date Type Department Care Team (Late Contact Info) Description 08/18/2024 Orders Only [facility] [address] [place] [address] India Daavlos [address] [place] [address] Chronic kidney disease, stage 2 [...] Visit [facility] [address] [place] [address] Barry Reyes MD [address] [place] [address] [place] [address] documented as of this encounter Visit Diagnoses Diagnosis Chronic kidney disease, stage 2 (mild) Anemia in chronic kidney disease Iron deficiency anemia, not otherwise specified documented in this encounter Care Teams Pinion Sorter Relationship Specialty Start Date End Date Sahra Son MD [facility] [place] [address] PCP - General Internal Medicine 10/28/22 documented as of this encounter
--- OUTSIDE RECORDS SUMMARY | 2024-09-05 09:15 | XMS_ITS | Encounter Summary ---
Author Organization [facility] Address [address] [place] [address] Phone Care Team Providers Care Butcher Supervisor Name Role Phone Sahra Son MD Primary Care Provider + Encounter Details Date Type Department Care Team ([facility] Contact Info) Description 08/25/2024 Documentation Only [facility] [address] [address] India Davalos [address] [place] [address] Social History Tobacco Use [...] Upcoming Encounters Date Type Department Care Team ([facility] Contact Info) Description 11/23/2024 12:50 PM EDT Office Visit [facility] [address] [address] Barry Reyes MD [address] [place] [address] [place] [address] documented as of this encounter Visit Diagnoses Not on filedocumented in this encounter Care Teams Butcher Supervisor Relationship Specialty Start Date End Date Sahra Son MD [address] [address] PCP - General Internal Medicine 10/28/22 documented as of this encounter
--- OUTSIDE RECORDS SUMMARY | 2024-09-05 09:15 | XMS_ITS | Encounter Summary ---
Author Organization [facility] Address [address] [place] [address] Phone Care Team Providers Care Final Inspector Movement Assembly Name Role Phone Sahra Son MD Primary Care Provider + Encounter Details Date Type Department Care Team ([facility] Contact Info) Description 08/24/2024 Documentation Only [facility] [address] [place] [address] India Davalos [address] [place] [address] Social History Tobacco Use Types [...] Encounters Date Type Department Care Team ([facility] Contact Info) Description 11/23/2024 12:50 PM EDT Office Visit [facility] [address] [place] [address] Barry Reyes MD [address] [place] [address] [place] [address] documented as of this encounter Visit Diagnoses Not on filedocumented in this encounter Care Teams Final Inspector Movement Assembly Relationship Specialty Start Date End Date Sahra Son MD [address] [address] PCP - General Internal Medicine 10/28/22 documented as of this encounter
--- OUTSIDE RECORDS SUMMARY | 2024-09-05 09:15 | XMS_ITS | Encounter Summary ---
Author Organization [facility] Address [address] [place] [address] Phone Care Team Providers Care Front Office Secretary Name Role Phone Sahra Son MD Primary Care Provider + Encounter Details Date Type Department Care Team ([facility] Contact Info) Description 11/05/2023 Documentation Only [facility] [address] [place] [address] India Davalos [address] [place] [address] Social History Tobacco Use Types [...] Visit [facility] [address] [place] [address] Barry Reyes MD [address] [place] [address] [place] [address] documented as of this encounter Visit Diagnoses Not on filedocumented in this encounter Care Teams Front Office Secretary Relationship Specialty Start Date End Date Sahra Son MD [address] [address] PCP - General Internal Medicine 10/28/22 documented as of this encounter
--- OUTSIDE RECORDS SUMMARY | 2024-09-05 09:15 | XMS_ITS | Encounter Summary ---
Author Organization [facility] Address [address] [place] [address] Phone Care Team Providers Care Guest Attendant Name Role Phone Sahra Son MD Primary Care Provider + Encounter Details Date Type Department Care Team ([facility] Contact Info) Description 11/11/2023 Documentation Only [facility] [address] [place] [address] India Davalos [address] [place] [address] Social History Tobacco Use Types [...] [facility] [address] [place] [address] Barry Reyes MD [address] [place] [address] [place] [address] documented as of this encounter Visit Diagnoses Not on filedocumented in this encounter Care Teams Guest Attendant Relationship Specialty Start Date End Date Sahra Son MD [address] [address] PCP - General Internal Medicine 10/28/22 documented as of this encounter
--- OUTSIDE RECORDS SUMMARY | 2024-09-05 09:15 | XMS_ITS | Encounter Summary ---
Author Organization [facility] Address [address] [place] [address] Phone Care Team Providers Care Lubricating Specialist Name Role Phone Sahra Son MD Primary Care Provider + Encounter Details Date Type Department Care Team (Late Contact Info) Description 05/17/2023 Orders Only [facility] [address] [place] [address] Arlene Alston PA Chronic kidney [...] Visit [facility] [address] [place] [place] [address] Barry Reyes MD [address] [place] [address] [place] [address] documented as of this encounter [...] (Fe, TIBC, TSAT) (06/08/2023 8:36 AM EST) [facility] Iron 49 (30-160) MCG/DL [facility] UIBC 246 (110-370) MCG/DL [facility] TIBC 295 (140-530) MCG/DL [facility] Iron Saturation (TSat) 17(L) (20-55) % [facility] Comment: Testing performed or reported by [facility], a Service of [address] [address] Luis A Bailey MD, Molder Trimmer CLIA# [id number] Blood (Blood, Venous) 06/08/2023 8:36 AM EST 06/08/2023 8:39 AM EST Arlene CARTER LAB BLOOD ORDERABLES Final Re sult Performing Organization Address [facility] de Phone Number [facility] * Vitamin D 25 hydroxy (06/08/2023 8:36 AM EST) Pathologist [facility] Vitamin D, 25-Hydroxy 24.8 (20-50) NG/ML [facility] Comment: Testing performed or reported by [facility], a Service of [address] [address] Luis A Bailey MD, Molder Trimmer CLIA# [id number] Blood (Blood, Venous) 06/08/2023 8:36 AM EST 06/08/2023 8:39 AM EST Arlene CARTER LAB BLOOD ORDERABLES Final Re sult Performing Organization Address [facility] de Phone Number [facility] * (ABNORMAL) Renal function panel (06/08/2023 8:36 AM EST) Glucose 166(H) (70-99) MG/DL [facility] BUN 19 (8-23) MG/DL [facility] Creatinine 1.0 (0.5-1.0) MG/DL [facility] Sodium 138 (133-145) MMOL/L [facility] Potassium 4.9 (3.6-5.2) MMOL/L [facility] Chloride 101 (98-107) MMOL/L [facility] Bicarbonate (CO2) 27 (22-29) MMOL/L [facility] Anion Gap 10 (4-17) [facility] Albumin 4.2 (3.4-4.8) GM/DL [facility] Calcium 9.1 (8.6-10.5) MG/DL [facility] Phosphorus, Serum 3.4 (2.5-4.5) MG/DL [facility] Est GFR Non 66 ML/MIN/1.7 3 M2 [facility] Comment: Creatinine based estimated glomerular filtration (eGFR) in adults is calculated using the National [employer] recommended 2020 CKD-EPI equation. Estimates GFR from serum creatinine, age and sex. Testing performed or reported by [facility], a Service of [address] [address] Luis A Bailey MD, Molder Trimmer CLIA# [id number] Blood (Blood, Venous) 06/08/2023 8:36 AM EST 06/08/2023 8:39 AM EST Arlene CARTER LAB BLOOD ORDERABLES Final Re sult Performing Organization Address [facility] de Phone Number [facility] * Magnesium (06/08/2023 8:36 AM EST) Magnesium 2.1 (1.6-2.3) mg/dL [facility] Comment: Testing performed or reported by [facility], a Service of [facility], [address] [place] [address] Luis A Bailey MD, Molder Trimmer CLIA# [id number] Blood (Blood, Venous) 06/08/2023 8:36 AM EST 06/08/2023 8:39 AM EST Arlene CARTER LAB BLOOD ORDERABLES Final Re sult Performing Organization Address [facility] de Phone Number [facility] * (ABNORMAL) Hemoglobin A1c (06/08/2023 8:36 AM EST) Hemoglobin A1C 7.2(H) (4.0-5.6) % [facility] Comment: MONITORING: In known diabetic [...] Supplement 1 Testing performed or reported by [facility], a Service of [facility], [address] [place] [address] Luis A Bailey MD, Molder Trimmer [facility]# [id number] Blood (Blood, Venous) 06/08/2023 8:36 AM EST 06/08/2023 8:38 AM EST us Arlene CARTER LAB BLOOD ORDERABLES Final Re sult [facility] * (ABNORMAL) CBC and differential (06/08/2023 8:36 AM EST) White Blood Cells 5.2 (4.0-11.0 ) K/MM3 [facility] RBC 5.08 (4.20-5.4 0) M/MM3 [facility] Hgb 10.1(L) (11.7-15. 5) GM/DL [facility] Hematocrit 32.9(L) (35.7-45. 8) % [facility] MCV 64.8(L) (80.0-100 .0) FL [facility] MCH 19.9(L) (27.0-34. 0) PG [facility] MCHC 30.7(L) (33.0-37. 0) g/dL [facility] Platelets 191 (150-460) K/MM3 [facility] RDW-SD 40.3 (<47.0) FL [facility] MPV NOT MEASURED (9.4-12.4 ) [place] [facility] nRBC Count 0.0 #/100 WBC'S [facility] NRBC Absolute 0.0 K/MM3 [facility] Neutrophils Abs Auto 3.5 (1.3-7.0) K/MM3 [facility] Lymphocytes Relative 1.3 (0.8-3.1) K/MM3 [facility] Monocytes 0.3(L) (0.4-0.9) K/MM3 [facility] Eosinophils Relative 0.1 (0.0-0.4) K/MM3 [facility] Basophil ABS 0.0 (0.0-0.1) K/MM3 [facility] Granulocytes Absolute 0.0 K/MM3 [facility] Neutrophils % Auto 67.3 (44-76) % [facility] Lymphs 24.0 (15-43) % [facility] Monocytes Absolute 5.8 (4.5-10.5 ) % [facility] Eosinophils 1.7 (0-6) % [facility] Basophils Relative 0.8 (0-2) % [facility] Immature Granulocytes 0.4 % [facility] Comment: Testing performed or reported by [facility], a Service of [facility], [address] [place] [address] Luis A Bailey MD, Molder Trimmer [facility]# [id number] Blood (Blood, Venous) 06/08/2023 8:36 AM EST 06/08/2023 8:38 AM EST Arlene CARTER LAB BLOOD ORDERABLES Final Re sult [facility] documented in this encounter Visit Diagnoses Diagnosis Chronic kidney disease, stage 2 (mild) Essential (primary) hypertension Anemia in chronic kidney disease Antiphospholipid syndrome (HCC) Type 2 diabetes mellitus, not otherwise specified (HCC) Bleeding hemorrhoids documented in this encounter Care Teams Lubricating Specialist Relationship Specialty Start Date End Date Sahra Son MD [address] [address] PCP - General Internal Medicine 10/28/22 documented as of this encounter
--- OUTSIDE RECORDS SUMMARY | 2024-09-05 09:15 | XMS_ITS | Encounter Summary ---
Author Organization [facility] Address [address] [place] [address] Phone Care Team Providers Care Supervisor Road Administrator Name Role Phone Sahra Son MD Primary Care Provider + Encounter Details Date Type Department Care Team ([facility] Contact Info) Description 06/16/2022 Documentation Only [facility] [address] [place] [address] India Davalos [address] [place] [address] Social History Tobacco Use Types [...] [facility] [address] [place] [address] Barry Reyes MD [address] [place] [address] [place] [address] documented as of this encounter Visit Diagnoses Not on filedocumented in this encounter Care Teams Supervisor Road Administrator Relationship Specialty Start Date End Date Sahra Son MD [address] [address] PCP - General Internal Medicine 10/28/22 documented as of this encounter
--- OUTSIDE RECORDS SUMMARY | 2024-09-05 09:15 | XMS_ITS | Encounter Summary ---
Author Organization [facility] Address [address] [place] [address] Phone Care Team Providers Care Cosmetic Dentist Name Role Phone Sahra Son MD Primary Care Provider + Encounter Details Date Type Department Care Team ([facility] Contact Info) Description 08/28/2024 Documentation Only [facility] [address] [place] [address] India Davalos [address] [place] [address] Social History Tobacco Use Types [...] [facility] [address] [place] [address] Barry Reyes MD [address] [place] [address] [place] [address] documented as of this encounter Visit Diagnoses Not on filedocumented in this encounter Care Teams Cosmetic Dentist Relationship Specialty Start Date End Date Sahra Son MD [address] [address] PCP - General Internal Medicine 10/28/22 documented as of this encounter
--- OUTSIDE RECORDS SUMMARY | 2024-09-05 09:15 | XMS_ITS | Encounter Summary ---
Author Organization [facility] Address [address] [place] [address] Phone Care Team Providers Care Compound Mixer Name Role Phone Sahra Son MD Primary Care Provider + Encounter Details Date Type Department Care Team ([facility] Contact Info) Description 11/19/2023 Documentation Only [facility] [address] [place] [address] India Davalos [address] [place] [address] Social History Tobacco Use Types [...] [facility] [address] [place] [address] Barry Reyes MD [address] [place] [address] [place] [address] documented as of this encounter Visit Diagnoses Not on filedocumented in this encounter Care Teams Compound Mixer Relationship Specialty Start Date End Date Sahra Son MD [address] [address] PCP - General Internal Medicine 10/28/22 documented as of this encounter
--- OUTSIDE RECORDS SUMMARY | 2024-09-05 09:15 | XMS_ITS | Encounter Summary ---
Author Organization [facility] Address [address] [place] [address] Phone Care Team Providers Care Senior Controls Technician Name Role Phone Sahra Son MD Primary Care Provider + Encounter Details Date Type Department Care Team ([facility] Contact Info) Description 04/08/2022 Documentation Only [facility] [address] [place] [address] India Davalos [address] [place], [place] [...] Upcoming Encounters Date Type Department Care Team ([facility] Contact Info) Description 11/23/2024 12:50 PM EDT Office Visit [facility] [address] [place] [address] Barry Reyes MD [address] [place] [address] [place] [address] documented as of this encounter Visit Diagnoses Not on filedocumented in this encounter Care Teams Senior Controls Technician Relationship Specialty Start Date End Date Sahra Son MD [address] [address] PCP - General Internal Medicine 10/28/22 documented as of this encounter
--- OUTSIDE RECORDS SUMMARY | 2024-09-05 09:15 | XMS_ITS | Encounter Summary ---
Author Organization [facility] Address [address] [place] [address] Phone Care Team Providers Care Sieve Maker Name Role Phone Sahra Son MD Primary Care Provider + Encounter Details Date Type Department Care Team (Late st Contact Info) Description 01/31/2024 Orders Only [facility] [address] [place] [address] Arlene Alston PA Chronic kidney [...] Visit [facility] [address] [place] [address] Barry Reyes MD [address] [place] [address] documented as of this encounter Visit Diagnoses Diagnosis Chronic kidney disease, stage 2 (mild) Essential (primary) hypertension Iron deficiency anemia, not otherwise specified Type 2 diabetes mellitus, not otherwise specified (HCC) Antiphospholipid syndrome (HCC) documented in this encounter Care Teams Sieve Maker Relationship Specialty Start Date End Date Sahra Son MD [address] [place] [address] PCP - General Internal Medicine 10/28/22 documented as of this encounter
--- OUTSIDE RECORDS SUMMARY | 2024-09-05 09:15 | XMS_ITS | Encounter Summary ---
Author Organization [facility] Address [address] [place] [address] Phone Care Team Providers Care Supervisor [employer] Name Role Phone Sahra Son MD Primary Care Provider + Encounter Details Date Type Department [facility] Description 01/04/2024 Documentation Only [facility] [address] [place] [address] India Davalos [address] [place] [address] Social History Tobacco Use Types [...] [facility] [address] [place] [address] Barry Reyes MD [address] [place] [address] [place] [address] documented as of this encounter Visit Diagnoses Not on filedocumented in this encounter Care Teams Supervisor [employer] Relationship Specialty Start Date End Date Sahra Son MD [address] [address] PCP - General Internal Medicine 10/28/22 documented as of this encounter
--- OUTSIDE RECORDS SUMMARY | 2024-09-05 09:15 | XMS_ITS | Encounter Summary ---
Author Organization [facility] Address [address] [place] [address] Phone Care Team Providers Care Tax Intern Name Role Phone Sahra Son MD Primary Care Provider + Encounter Details Date Type Department Care Team ([facility] Contact Info) Description 11/11/2023 Documentation Only [facility] [address] [place] [address] India Davalos [address] [place] [address] Social History Tobacco Use Types [...] [facility] [address] [place] [address] Barry Reyes MD [address] [place] [address] [place] [address] documented as of this encounter Visit Diagnoses Not on filedocumented in this encounter Care Teams Tax Intern Relationship Specialty Start Date End Date Sahra Son MD [address] [address] PCP - General Internal Medicine 10/28/22 documented as of this encounter
--- OUTSIDE RECORDS SUMMARY | 2024-09-05 09:15 | XMS_ITS | Encounter Summary ---
Author Organization [facility] Address [address] [place] [address] Phone Care Team Providers Care Marble Setter Helper Name Role Phone Sahra Son MD Primary Care Provider + Encounter Details Date Type Department Care Team (Late Contact Info) Description 03/03/2024 Orders Only [facility] [address] [place] [address] India Davalos [address] [place] [address] Chronic kidney disease, stage 2 [...] Visit [facility] [address] [place] [address] Barry Reyes MD [address] [place] [address] [place] [address] documented as of this encounter [...] Glucose 152(H) 70 - 99 mg/dL [facility] BUN 16 8 - 27 mg/dL [facility] Creatinine 0.98 0.57 - 1.00 mg/dL [facility] eGFR CKD-EPI CR 2020 64 >59 mL/min/1.7 3 [facility] BUN/Creatinine Ratio 16 12 - 28 [facility] Sodium 137 134 - 144 mmol/L [facility] Potassium 4.8 3.5 - 5.2 mmol/L [facility] Chloride 101 96 - 106 mmol/L [facility] Bicarbonate (CO2) 22 20 - 29 mmol/L [facility] Calcium 8.8 8.7 - 10.3 mg/dL [facility] Albumin 4.0 3.9 - 4.9 g/dL [facility] Phosphorus 4.0 3.0 - 4.3 mg/dL [facility] Blood (Blood, Venous) 03/24/2024 10:37 AM EST 03/24/2024 Barry Reyes MD LAB BLOOD ORDERABLES Final Re sult Performing Organization Address City/[facility]/ZIP Co de Phone Number [facility] [address] [place] [address] * Ferritin (03/24/2024 10:37 AM EST) Ferritin 37 15 - 150 ng/mL [facility] Blood (Blood, Venous) 03/24/2024 10:37 AM EST 03/24/2024 Barry Reyes MD LAB BLOOD ORDERABLES Final Re sult Performing Organization Address [facility] de Phone Number [facility] [address] [place] [address] * Iron Panel (Fe, TIBC, TSAT) (03/24/2024 10:37 AM EST) Pathologist [facility] TIBC 293 250 - 450 ug/dL [facility] UIBC 247 118 - 369 ug/dL [facility] Iron 46 27 - 139 ug/dL [facility] Iron Saturation (TSat) 16 15 - 55 % [facility] Blood (Blood, Venous) 03/24/2024 10:37 AM EST 03/24/2024 Barry Reyes MD LAB BLOOD ORDERABLES Final Re sult Performing Organization Address City/[facility]/ZIP Co de Phone Number [facility] [address] [place] [address] * (ABNORMAL) CBC and Differential (03/24/2024 10:37 AM EST) [facility] WBC 6.0 3.4 - 10.8 x10E3/uL [facility] RBC 5.21 3.77 - 5.28 x10E6/uL [facility] Hemoglobin 10.0(L) 11.1 - 15.9 g/dL [facility] Hematocrit 35.3 34.0 - 46.6 % [facility] MCV 68(L) 79 - 97 fL [facility] MCH 19.2(L) 26.6 - 33.0 pg [facility] MCHC 28.3(L) 31.5 - 35.7 g/dL [facility] RDW 19.4(H) 11.7 - 15.4 % [facility] Platelets 186 150 - 450 x10E3/uL [facility] Neutrophils Relative 65 Not Estab. % [facility] Lymphocytes Relative 26 Not Estab. % [facility] Monocytes 6 Not Estab. % [facility] Eosinophils Relative 2 Not Estab. % [facility] Basophils Relative 1 Not Estab. % [facility] Neutrophils Absolute 3.9 1.4 - 7.0 x10E3/uL [facility] Lymphocytes Absolute 1.5 0.7 - 3.1 x10E3/uL [facility] Monocytes Absolute 0.3 0.1 - 0.9 x10E3/uL [facility] Eosinophils Absolute 0.1 0.0 - 0.4 x10E3/uL [facility] Basophils Absolute 0.0 0.0 - 0.2 x10E3/uL [facility] Immature Granulocytes 0 Not Estab. % [facility] Immature Grans (Absolute) 0.0 0.0 - 0.1 x10E3/uL [facility] Blood (Blood, Venous) 03/24/2024 10:37 AM EST 03/24/2024 us Barry Reyes MD LAB BLOOD ORDERABLES Final Re sult [facility] [address] [place] [address] documented in this encounter Visit Diagnoses Diagnosis Chronic kidney disease, stage 2 (mild) Anemia in chronic kidney disease Iron deficiency anemia, not otherwise specified documented in this encounter Care Teams Marble Setter Helper Relationship Specialty Start Date End Date Sahra Son MD [address] [place] [address] PCP - General Internal Medicine 10/28/22 documented as of this encounter
--- OUTSIDE RECORDS SUMMARY | 2024-09-05 09:15 | XMS_ITS | Encounter Summary ---
Author Organization [facility] Address [address] [place] [address] Phone Care Team Providers Care Vest Front Presser Name Role Phone Sahra Son MD Primary Care Provider + Encounter Details Date Type Department Care Team ([facility] Contact Info) Description 01/06/2022 Documentation Only [facility] [address] [place] [address] Juan Jose Li MD [address] [place] [address] [place] [address] Social History Tobacco Use Types [...] Upcoming Encounters Date Type Department Care Team ([facility] Contact Info) Description 11/23/2024 12:50 PM EDT Office Visit [facility] [address] [place] [address] Barry Reyes MD [address] [place] [address] [place] [address] documented as of this encounter Visit Diagnoses Not on filedocumented in this encounter Care Teams Vest Front Presser Relationship Specialty Start Date End Date Sahra Son MD [address] [address] PCP - General Internal Medicine 10/28/22 documented as of this encounter
--- OUTSIDE RECORDS SUMMARY | 2024-09-05 09:15 | XMS_ITS | Encounter Summary ---
Author Organization [facility] Address [address] [place] [address] Phone Care Team Providers Care Cardiopulmonary Technologist Name Role Phone Sahra Son MD Primary Care Provider + Encounter Details Date Type Department Care Team ([facility] Contact Info) Description 11/11/2023 Documentation Only [facility] [address] [place] [address] India Davalos [address] [place] [address] Social History Tobacco Use Types [...] [facility] [address] [place] [address] Barry Reyes MD [address] [place] [address] [place] [address] documented as of this encounter Visit Diagnoses Not on filedocumented in this encounter Care Teams Cardiopulmonary Technologist Relationship Specialty Start Date End Date Sahra Son MD [address] [address] PCP - General Internal Medicine 10/28/22 documented as of this encounter
--- OUTSIDE RECORDS SUMMARY | 2024-09-05 09:16 | XMS_ITS | Encounter Summary ---
Author Organization [facility] Address [address] [place] [address] Phone Care Team Providers Care Technologist Development Name Role Phone Sahra Son MD Primary Care Provider + Encounter Details Date Type Department Care Team ([facility] Contact Info) Description 08/22/2021 Documentation Only [facility] [address] [place] [address] India Davalos [address] [place] [address] Social History Tobacco Use Types [...] [facility] [address] [place] [address] Barry Reyes MD [address] [place] [address] [place] [address] documented as of this encounter Visit Diagnoses Not on filedocumented in this encounter Care Teams Technologist Development Relationship Specialty Start Date End Date Sahra Son MD [address] [address] PCP - General Internal Medicine 10/28/22 documented as of this encounter
--- OUTSIDE RECORDS SUMMARY | 2024-09-05 09:16 | XMS_ITS | Clinical Summary ---
Author Organization [facility], Address [address] [place] [address] [place] [address] Phone Care Team Providers Care Technical Support Consultant Name Role Phone Sahra Son MD Primary Care Provider + Allergies Active Allergy Reactions Criticality Noted Date Comments Codeine 12/26/2012 Ferumoxytol Shortness of breath,Itching,Other (see comments) High 02/27/2022 Bones hurt Iodinated Contrast Media 07/06/2022 Penicillins 12/26/2012 Other Shellfish Allergy 12/26/2012 Tramadol 07/06/2022 Trazodone 03/08/2018 Iron Sucrose 02/29/2024 Coughing fit infusion stopped at [facility] Medications Cymbalta [address] capsule TK 2 CS PO QAM 12/28/19 20 Active LORazepam (ATIVAN) 1 MG tablet TK 1 T PO BID 12/24/19 20 Active meclizine (ANTIVERT) 25 MG tablet TK 1 T PO TID PRN 12/24/19 20 Active montelukast (SINGULAIR) 10 MG tablet TK 1 T PO QD IN THE DARCY 11/19/19 20 Active Creon 41611-36506 units capsule TK ONE C PO TID [...] Encounters Date Type Department Care Team Description 09/01/2024 Orders Only [facility] [address] [place] [address] [place] Davalos Anemia in chronic kidney disease; Other iron deficiency anemia; Chronic kidney disease, stage 2 (mild) 08/28/2024 Documentation Only [facility], [address] [place] [address] [place], [place] 08/25/2024 Documentation Only [facility] [address] [place] [address] [place], [place] 08/24/2024 Documentation Only [facility] [address] [place] [address] [place], [place] 08/24/2024 Refill [facility] [address] [place] [address] [place], [place] 08/23/2024 Refill [facility] [address] [place] [address] [place], [place] 08/23/2024 Refill [facility] [address] [place] [address] [place], [place] 08/18/2024 Office Communication [facility] [address] [place] [address] Stephanie Azul, LAURITA 08/18/2024 Orders Only [facility] [address] [place] [address] India Davalos Chronic kidney disease, stage 2 (mild); Anemia in chronic kidney disease; Iron deficiency anemia, not otherwise specified 08/04/2024 Orders Only [facility] [address] [place] [address] India Davalos Anemia in chronic kidney disease; Other iron deficiency anemia; Chronic kidney disease, stage 2 (mild) 07/21/2024 Orders Only [facility] [address] [place] [address] India Davalos Chronic kidney disease, stage 2 (mild); Anemia in chronic kidney disease; Iron deficiency anemia, not otherwise specified 07/07/2024 Orders Only [facility] [address] [place] [address] India Davalos Anemia in chronic kidney disease; Other iron deficiency anemia; Chronic kidney disease, stage 2 (mild) 06/23/2024 Orders Only [facility] [address] [place] [address] India Davalos Chronic kidney disease, stage 2 (mild); Anemia in chronic kidney disease; Iron deficiency anemia, not otherwise specified 06/09/2024 Orders Only [facility] [address] [place] [address] India Davalos Anemia in chronic kidney disease; Other iron deficiency anemia; Chronic kidney disease, stage 2 (mild) from Last 3 Months Immunizations Immunization Administration [...] Visit [facility], [address] [place] [address] Barry Reyes MD [address] [facility] [address] [place] [address] Health Maintenance Due Date Last Done Comments [...] resultswithin the time period is included. Pathologist [facility] TIBC 290 250 - 450 ug/dL [facility] UIBC 251 118 - 369 ug/dL [facility] Iron 39 27 - 139 ug/dL [facility] Iron Saturation (TSat) 13(L) 15 - 55 % [facility] Blood (Blood, Venous) 08/07/2024 8:15 AM EDT 08/07/2024 us Barry Reyes MD LAB BLOOD ORDERABLES Final Re sult [facility] [address] [place] [address] * (ABNORMAL) CBC and Differential (08/07/2024 8:15 AM EDT) Only the most recent of2 resultswithin the time period is included. Pathologist [facility] WBC 5.6 3.4 - 10.8 x10E3/uL [facility] RBC 5.41(H) 3.77 - 5.28 x10E6/uL [facility] Hemoglobin 10.7(L) 11.1 - 15.9 g/dL [facility] Hematocrit 36.1 34.0 - 46.6 % [facility] MCV 67(L) 79 - 97 fL [facility] MCH 19.8(L) 26.6 - 33.0 pg [facility] MCHC 29.6(L) 31.5 - 35.7 g/dL [facility] RDW 18.9(H) 11.7 - 15.4 % [facility] Platelets 171 150 - 450 x10E3/uL [facility] Neutrophils Relative 65 Not Estab. % [facility] Lymphocytes Relative 25 Not Estab. % [facility] Monocytes 6 Not Estab. % [facility] Eosinophils Relative 3 Not Estab. % [facility] Basophils Relative 1 Not Estab. % [facility] Neutrophils Absolute 3.6 1.4 - 7.0 x10E3/uL [facility] Lymphocytes Absolute 1.4 0.7 - 3.1 x10E3/uL [facility] Monocytes Absolute 0.4 0.1 - 0.9 x10E3/uL [facility] Eosinophils Absolute 0.2 0.0 - 0.4 x10E3/uL [facility] Basophils Absolute 0.0 0.0 - 0.2 x10E3/uL [facility] Immature Granulocytes 0 Not Estab. % [facility] Immature Grans (Absolute) 0.0 0.0 - 0.1 x10E3/uL [facility] Blood (Blood, Venous) 08/07/2024 8:15 AM EDT 08/07/2024 Barry Reyes MD LAB BLOOD ORDERABLES Final Re sult [facility] [address] [place] [address] * Ferritin (08/07/2024 8:15 AM EDT) Only the most recent of2 resultswithin the time period is included. Ferritin 55 15 - 150 ng/mL [facility] Blood (Blood, Venous) 08/07/2024 8:15 AM EDT 08/07/2024 Barry Reyes MD LAB BLOOD ORDERABLES Final Re sult [facility] [address] [place] [address] * (ABNORMAL) Renal Function Panel (08/07/2024 8:15 AM EDT) Only the most recent of2 resultswithin the time period is included. Pathologist [facility] Glucose 168(H) 70 - 99 mg/dL [facility] BUN 15 8 - 27 mg/dL [facility] Creatinine 0.93 0.57 - 1.00 mg/dL [facility] eGFR CKD-EPI CR 2020 69 >59 mL/min/1.7 3 [facility] BUN/Creatinine Ratio 16 12 - 28 [facility] Sodium 139 134 - 144 mmol/L [facility] Chloride 103 96 - 106 mmol/L [facility] Bicarbonate (CO2) 24 20 - 29 mmol/L [facility] Calcium 8.8 8.7 - 10.3 mg/dL [facility] Phosphorus 3.8 3.0 - 4.3 mg/dL [facility] Albumin 4.1 3.9 - 4.9 g/dL [facility] Potassium 4.8 3.5 - 5.2 mmol/L [facility] Blood (Blood, Venous) 08/07/2024 8:15 AM EDT 08/07/2024 Barry Reyes MD LAB BLOOD ORDERABLES Final Re sult [facility] [address] [place] [address] * (ABNORMAL) Hemoglobin A1c (06/08/2023 8:36 AM EST) Hemoglobin A1C 7.2(H) (4.0-5.6) % [facility] Comment: MONITORING: In known diabetic patients, hemoglobin A1c targets should be discussed with health care provider. DIAGNOSTIC USE: ??The [place] Diabetes Association (ADA) and the World Health [...] Supplement 1 Testing performed or reported by [facility], a Service of [facility], [address] [place] [address] Luis A Bailey MD, Dynamic Balancer Set Up Worker [facility]# [id number] Blood (Blood, Venous) 06/08/2023 8:36 AM EST 06/08/2023 8:38 AM EST Arlene CARTER LAB BLOOD ORDERABLES Final Re sult [facility] from Last 3 Months or Most Recently Relevant to Health Maintenance Insurance [id number] One [employer] Dual SNP ([id number]) [place] [id number] Care Teams Technical Support Consultant Relationship Specialty Start Date End Date Sahra Son MD [address] [address] PCP - General Internal Medicine 10/28/22
--- OUTSIDE RECORDS SUMMARY | 2024-09-05 09:16 | XMS_ITS | Encounter Summary ---
Author Organization [facility] Address [address] [place] [address] Phone Care Team Providers Care Stroboroma Operator Name Role Phone Sahra Son MD Primary Care Provider + Encounter Details Date Type Department Care Team ([facility] Contact Info) Description 07/16/2023 Documentation Only [facility] [address] [place] [address] India Davalos [address] [place] [address] Social History Tobacco Use Types [...] [facility] [address] [place] [address] Barry Reyes MD [address] [place] [address] [place] [address] documented as of this encounter Visit Diagnoses Not on filedocumented in this encounter Care Teams Stroboroma Operator Relationship Specialty Start Date End Date Sahra Son MD [address] [address] PCP - General Internal Medicine 10/28/22 documented as of this encounter
--- OUTSIDE RECORDS SUMMARY | 2024-09-05 09:16 | XMS_ITS | Encounter Summary ---
Author Organization [facility] Address [address] [place] [address] Phone Care Team Providers Care Design Chief Name Role Phone Sahra Son MD Primary Care Provider + Encounter Details Date Type Department Care Team ([facility] Contact Info) Description 01/29/2023 Documentation Only [facility] [address] [place] [address] India Davalos [address] [place], [place] [...] Upcoming Encounters Date Type Department Care Team ([facility] Contact Info) Description 11/23/2024 12:50 PM EDT Office Visit [facility] [address] [place] [address] Barry Reyes MD [address] [place] [address] [place] [address] documented as of this encounter Visit Diagnoses Not on filedocumented in this encounter Care Teams Design Chief Relationship Specialty Start Date End Date Sahra Son MD [address] [address] PCP - General Internal Medicine 10/28/22 documented as of this encounter
--- OUTSIDE RECORDS SUMMARY | 2024-09-05 09:16 | XMS_ITS | Encounter Summary ---
Author Organization [facility] Address [address] [place] [address] Phone Care Team Providers Care Caramel Maker Name Role Phone Sahra Son MD Primary Care Provider + Encounter Details Date Type Department Care Team ([facility] Contact Info) Description 07/16/2023 Documentation Only [facility] [address] [place] [address] India Davalos [address] [place] [address] Social History Tobacco Use Types [...] [facility] [address] [place] [address] Barry Reyes MD [address] [place] [address] [place] [address] documented as of this encounter Visit Diagnoses Not on filedocumented in this encounter Care Teams Caramel Maker Relationship Specialty Start Date End Date Sahra Son MD [address] [address] PCP - General Internal Medicine 10/28/22 documented as of this encounter
--- OUTSIDE RECORDS SUMMARY | 2024-09-05 09:16 | XMS_ITS | Encounter Summary ---
Author Organization [facility] Address [address] [place] [address] Phone Care Team Providers Care Rock Picker Name Role Phone Sahra Son MD Primary Care Provider + Encounter Details Date Type Department Care Team ([facility] Contact Info) Description 03/11/2023 Documentation Only [facility] [address] [place] [address] India Davalos [address] [place] [address] Social History Tobacco Use Types [...] Upcoming Encounters Date Type Department Care Team ([facility] Contact Info) Description 11/23/2024 12:50 PM EDT Office Visit [facility] [address] [place] [address] Barry Reyes MD [address] [place] [address] [place] [address] documented as of this encounter Visit Diagnoses Not on filedocumented in this encounter Care Teams Rock Picker Relationship Specialty Start Date End Date Sahra Son MD [address] [address] PCP - General Internal Medicine 10/28/22 documented as of this encounter
--- OUTSIDE RECORDS SUMMARY | 2024-09-05 09:16 | XMS_ITS | Encounter Summary ---
Author Organization [facility] Address [address] [place] [address] Phone Care Team Providers Care Finished Goods Inspector Name Role Phone Sahra Son MD Primary Care Provider + Encounter Details Date Type Department Care Team ([facility] Contact Info) Description 02/01/2023 Documentation Only [facility] [address] [place] [address] India Davalos [address] [place] [address] Social History Tobacco Use Types [...] [facility] [address] [place] [address] Barry Reyes MD [address] [place] [address] [place] [address] documented as of this encounter Visit Diagnoses Not on filedocumented in this encounter Care Teams Finished Goods Inspector Relationship Specialty Start Date End Date Sahra Son MD [address] [address] PCP - General Internal Medicine 10/28/22 documented as of this encounter
--- OUTSIDE RECORDS SUMMARY | 2024-09-05 09:16 | XMS_ITS | Encounter Summary ---
Author Organization [facility] Address [address] [place] [address] Phone Care Team Providers Care Form Layer Name Role Phone Sahra Son MD Primary Care Provider + Encounter Details Date Type Department Care Team ([facility] Contact Info) Description 01/29/2023 Documentation Only [facility] [address] [place] [address] India Davalos [address] [place], [place] [...] Upcoming Encounters Date Type Department Care Team ([facility] Contact Info) Description 11/23/2024 12:50 PM EDT Office Visit [facility] [address] [place] [address] Barry Reyes MD [address] [place] [address] [place] [address] documented as of this encounter Visit Diagnoses Not on filedocumented in this encounter Care Teams Form Layer Relationship Specialty Start Date End Date Sahra Son MD [address] [address] PCP - General Internal Medicine 10/28/22 documented as of this encounter
--- OUTSIDE RECORDS SUMMARY | 2024-09-05 09:16 | XMS_ITS | Encounter Summary ---
Author Organization [facility] Address [address] [place] [address] Phone Care Team Providers Care Ent Physician Name Role Phone Sahra Son MD Primary Care Provider + Encounter Details Date Type Department Care Team ([facility] Contact Info) Description 04/05/2024 Documentation Only [facility] [address] [place] [address] India Davalos [address] [place] [address] Social History Tobacco Use Types [...] Upcoming Encounters Date Type Department Care Team ([facility] Contact Info) Description 11/23/2024 12:50 PM EDT Office Visit [facility] [address] [place] [address] Barry Reyes MD [address] [place] [address] [place] [address] documented as of this encounter Visit Diagnoses Not on filedocumented in this encounter Care Teams Ent Physician Relationship Specialty Start Date End Date Sahra Son MD [address] [address] PCP - General Internal Medicine 10/28/22 documented as of this encounter
--- OUTSIDE RECORDS SUMMARY | 2024-09-05 09:16 | XMS_ITS | Encounter Summary ---
Author Organization [facility] Address [address] [place] [address] Phone Care Team Providers Care It Assistant Name Role Phone Sahra Son MD Primary Care Provider + Encounter Details Date Type Department Care Team (Late Contact Info) Description 03/31/2024 Orders Only [facility] [address] [place] [address] India Davalos [address] [place] [address] Chronic kidney disease, stage 2 [...] Visit [facility] [address] [place] [address] Barry Reyes MD [address] [facility] [place] [address] documented as of this encounter Visit Diagnoses Diagnosis Chronic kidney disease, stage 2 (mild) Anemia in chronic kidney disease Iron deficiency anemia, not otherwise specified documented in this encounter Care Teams It Assistant Relationship Specialty Start Date End Date Sahra Son MD [facility] [place] [address] PCP - General Internal Medicine 10/28/22 documented as of this encounter
--- OUTSIDE RECORDS SUMMARY | 2024-09-05 09:16 | XMS_ITS | Encounter Summary ---
Author Organization [facility] Address [address] [place] [address] Phone Care Team Providers Care Branch Service Leader Name Role Phone Sahra Son MD Primary Care Provider + Encounter Details Date Type Department Care Team ([facility] Contact Info) Description 08/09/2023 Documentation Only [facility] [address] [place] [address] India Davalos [address] [place] [address] Social History Tobacco Use Types [...] [facility] [address] [place] [address] Barry Reyes MD [address] [place] [address] [place] [address] documented as of this encounter Visit Diagnoses Not on filedocumented in this encounter Care Teams Branch Service Leader Relationship Specialty Start Date End Date Sahra Son MD [address] [address] PCP - General Internal Medicine 10/28/22 documented as of this encounter
--- OUTSIDE RECORDS SUMMARY | 2024-09-05 09:16 | XMS_ITS | Encounter Summary ---
Author Organization [facility] Address [address] [place] [address] Phone Care Team Providers Care Oyster Planter Name Role Phone Sahra Son MD Primary Care Provider + Encounter Details Date Type Department Care Team (Late Contact Info) Description 05/26/2024 Orders Only [facility] [address] [place] [address] India Davalos [address] [place] [address] Chronic kidney disease, stage 2 [...] Visit [facility] [address] [place] [address] Barry Reyes MD [address] [place] [address] [place] [address] documented as of this encounter [...] Glucose 168(H) 70 - 99 mg/dL [facility] BUN 17 8 - 27 mg/dL [facility] Creatinine 1.09(H) 0.57 - 1.00 mg/dL [facility] eGFR CKD-EPI CR 2020 57(L) >59 mL/min/1.7 3 [facility] BUN/Creatinine Ratio 16 12 - 28 [facility] Sodium 137 134 - 144 mmol/L [facility] Potassium 4.8 3.5 - 5.2 mmol/L [facility] Chloride 99 96 - 106 mmol/L [facility] Bicarbonate (CO2) 23 20 - 29 mmol/L [facility] Calcium 9.0 8.7 - 10.3 mg/dL [facility] Albumin 4.2 3.9 - 4.9 g/dL [facility] Phosphorus 4.4(H) 3.0 - 4.3 mg/dL [facility] Blood (Blood, Venous) 06/07/2024 11:53 AM EST 06/07/2024 Barry Reyes MD LAB BLOOD ORDERABLES Final Re sult Performing Organization Address City/[facility]/ZIP Co de Phone Number [facility] [address] [place] [address] * Ferritin (06/07/2024 11:53 AM EST) Ferritin 102 15 - 150 ng/mL [facility] Blood (Blood, Venous) 06/07/2024 11:53 AM EST 06/07/2024 Barry Reyes MD LAB BLOOD ORDERABLES Final Re sult Performing Organization Address [facility] de Phone Number [facility] [address] [place] [address] * Iron Panel (Fe, TIBC, TSAT) (06/07/2024 11:53 AM EST) TIBC 262 250 - 450 ug/dL [facility] UIBC 205 118 - 369 ug/dL [facility] Iron 57 27 - 139 ug/dL [facility] Iron Saturation (TSat) 22 15 - 55 % [facility] Blood (Blood, Venous) 06/07/2024 11:53 AM EST 06/07/2024 Barry Reyes MD LAB BLOOD ORDERABLES Final Re sult Performing Organization Address City/[facility]/ZIP Co de Phone Number [facility] [address] [place] [address] * (ABNORMAL) CBC and Differential (06/07/2024 11:53 AM EST) [facility] WBC 5.5 3.4 - 10.8 x10E3/uL [facility] RBC 5.76(H) 3.77 - 5.28 x10E6/uL [facility] Hemoglobin 11.1 11.1 - 15.9 g/dL [facility] Hematocrit 38.4 34.0 - 46.6 % [facility] MCV 67(L) 79 - 97 fL [facility] MCH 19.3(L) 26.6 - 33.0 pg [facility] MCHC 28.9(L) 31.5 - 35.7 g/dL [facility] RDW 18.8(H) 11.7 - 15.4 % [facility] Platelets 162 150 - 450 x10E3/uL [facility] Neutrophils Relative 59 Not Estab. % [facility] Lymphocytes Relative 31 Not Estab. % [facility] Monocytes 6 Not Estab. % [facility] Eosinophils Relative 2 Not Estab. % [facility] Basophils Relative 1 Not Estab. % [facility] Neutrophils Absolute 3.3 1.4 - 7.0 x10E3/uL [facility] Lymphocytes Absolute 1.7 0.7 - 3.1 x10E3/uL [facility] Monocytes Absolute 0.3 0.1 - 0.9 x10E3/uL [facility] Eosinophils Absolute 0.1 0.0 - 0.4 x10E3/uL [facility] Basophils Absolute 0.0 0.0 - 0.2 x10E3/uL [facility] Immature Granulocytes 1 Not Estab. % [facility] Immature Grans (Absolute) 0.0 0.0 - 0.1 x10E3/uL [facility] Blood (Blood, Venous) 06/07/2024 11:53 AM EST 06/07/2024 us Barry Reyes MD LAB BLOOD ORDERABLES Final Re sult [facility] [address] [place] [address] documented in this encounter Visit Diagnoses Diagnosis Chronic kidney disease, stage 2 (mild) Anemia in chronic kidney disease Iron deficiency anemia, not otherwise specified documented in this encounter Care Teams Oyster Planter Relationship Specialty [place] [address] [place] [address] PCP - General Internal Medicine 10/28/22 documented as of this encounter
--- OUTSIDE RECORDS SUMMARY | 2024-09-05 09:16 | XMS_ITS | Encounter Summary ---
Author Organization [facility] Address [address] [place] [address] Phone Care Team Providers Care Chief Of Staff Name Role Phone Sahra Son MD Primary Care Provider + Encounter Details Date Type Department Care Team ([facility] Contact Info) Description 04/05/2024 Documentation Only [facility] [address] [place] [address] India Davalos [address] [place] [address] Social History Tobacco Use Types [...] Upcoming Encounters Date Type Department Care Team ([facility] Contact Info) Description 11/23/2024 12:50 PM EDT Office Visit [facility] [address] [place] [address] Barry Reyes MD [address] [place] [address] [place] [address] documented as of this encounter Visit Diagnoses Not on filedocumented in this encounter Care Teams Chief Of Staff Relationship Specialty Start Date End Date Sahra Son MD [address] [address] PCP - General Internal Medicine 10/28/22 documented as of this encounter
--- OUTSIDE RECORDS SUMMARY | 2024-09-05 09:16 | XMS_ITS | Encounter Summary ---
Author Organization [facility] Address [address] [place] [address] Phone Care Team Providers Care Usability Engineer Name Role Phone Sahra Son MD Primary Care Provider + Encounter Details Date Type Department Care Team (Late Contact Info) Description 06/23/2024 Orders Only [facility] [address] [place] [address] India Davalos [address] [place] [address] Chronic kidney disease, stage 2 [...] [facility] [address] [place] [address] Barry Reyes MD [address] [facility] [place] [address] documented as of this encounter Visit Diagnoses Diagnosis Chronic kidney disease, stage 2 (mild) Anemia in chronic kidney disease Iron deficiency anemia, not otherwise specified documented in this encounter Care Teams Usability Engineer Relationship Specialty Start Date End Date Sahra Son MD [facility] [place] [address] PCP - General Internal Medicine 10/28/22 documented as of this encounter
--- OUTSIDE RECORDS SUMMARY | 2024-09-05 09:16 | XMS_ITS | Encounter Summary ---
Author Organization [facility] Address [address] [place] [address] Phone Care Team Providers Care Label Paster Name Role Phone Sahra Son MD Primary Care Provider + Encounter Details Date Type Department Care Team ([facility] Contact Info) Description 10/30/2022 Documentation Only [facility] [address] [place] [address] India Davalos [address] [place] [address] Social History Tobacco Use [...] Upcoming Encounters Date Type Department Care Team ([facility] Contact Info) Description 11/23/2024 12:50 PM EDT Office Visit [facility] [address] [place] [address] Barry Reyes MD [address] [place] [address] [place] [address] documented as of this encounter Visit Diagnoses Not on filedocumented in this encounter Care Teams Label Paster Relationship Specialty Start Date End Date Sahra Son MD [address] [address] PCP - General Internal Medicine 10/28/22 documented as of this encounter
--- OUTSIDE RECORDS SUMMARY | 2024-09-05 09:16 | XMS_ITS | Encounter Summary ---
Author Organization [facility] Address [address] [place] [address] Phone Care Team Providers Care Parts Professional Name Role Phone Sahra Son MD Primary Care Provider + Encounter Details Date Type Department Care Team (Late st Contact Info) Description 09/01/2024 Orders Only [facility] [address] [place] [address] India Davalos [address] [place] [address] Anemia in chronic kidney disease; [...] [facility] [address] [place] [address] Barry Reyes MD [address] [facility] [place] [address] documented as of this encounter Visit Diagnoses Diagnosis Anemia in chronic kidney disease Other iron deficiency anemia Chronic kidney disease, stage 2 (mild) documented in this encounter Care Teams Parts Professional Relationship Specialty Start Date End Date Sahra Son MD [facility] [place] [address] PCP - General Internal Medicine 10/28/22 documented as of this encounter
--- OUTSIDE RECORDS SUMMARY | 2024-09-05 09:16 | XMS_ITS | Encounter Summary ---
Author Organization [facility] Address [address] [place] [address] Phone Care Team Providers Care Log Deckman Name Role Phone Sahra Son MD Primary Care Provider + Encounter Details Date Type Department Care Team ([facility] Contact Info) Description 07/03/2021 Documentation Only [facility] [address] [place] [address] Juan Jose Li MD [address] [place] [address] [place] [address] Social History Tobacco Use Types [...] [facility] [address] [place] [address] Barry Reyes MD [address] [place] [address] [place] [address] documented as of this encounter Visit Diagnoses Not on filedocumented in this encounter Care Teams Log Deckman Relationship Specialty Start Date End Date Sahra Son MD [address] [address] PCP - General Internal Medicine 10/28/22 documented as of this encounter
--- OUTSIDE RECORDS SUMMARY | 2024-09-05 09:16 | XMS_ITS | Encounter Summary ---
Author Organization [facility] Address [address] [place] [address] Phone Care Team Providers Care Air Intercept Controller Name Role Phone Sahra Son MD Primary Care Provider + Encounter Details Date Type Department Care Team ([facility] Contact Info) Description 08/05/2023 Documentation Only [facility] [address] [place] [address] India Davalos [address] [place] [address] Social History Tobacco Use Types [...] [facility] [address] [place] [address] Barry Reyes MD [address] [place] [address] [place] [address] documented as of this encounter Visit Diagnoses Not on filedocumented in this encounter Care Teams Air Intercept Controller Relationship Specialty Start Date End Date Sahra Son MD [address] [address] PCP - General Internal Medicine 10/28/22 documented as of this encounter
--- OUTSIDE RECORDS SUMMARY | 2024-09-05 09:16 | XMS_ITS | Encounter Summary ---
Author Organization [facility] Address [address] [place] [address] Phone Care Team Providers Care Environmental Professional Name Role Phone Sahra Son MD Primary Care Provider + Encounter Details Date Type Department Care Team (Late Contact Info) Description 04/28/2024 Orders Only [facility] [address] [place] [address] India Davalos [address] [place] [address] Chronic kidney disease, stage 2 [...] Visit [facility] [address] [place] [address] Barry Reyes MD [address] [place] [address] [place] [address] documented as of this encounter [...] Glucose 153(H) 70 - 99 mg/dL [facility] BUN 17 8 - 27 mg/dL [facility] Creatinine 0.98 0.57 - 1.00 mg/dL [facility] eGFR CKD-EPI CR 2020 64 >59 mL/min/1.7 3 [facility] BUN/Creatinine Ratio 17 12 - 28 [facility] Sodium 142 134 - 144 mmol/L [facility] Potassium 5.0 3.5 - 5.2 mmol/L [facility] Chloride 106 96 - 106 mmol/L [facility] Bicarbonate (CO2) 23 20 - 29 mmol/L [facility] Calcium 8.9 8.7 - 10.3 mg/dL [facility] Albumin 3.9 3.9 - 4.9 g/dL [facility] Phosphorus 3.9 3.0 - 4.3 mg/dL [facility] Blood (Blood, Venous) 05/05/2024 9:18 AM EST 05/05/2024 Barry Reyes MD LAB BLOOD ORDERABLES Final Re sult Performing Organization Address City/[facility]/ZIP Co de Phone Number [facility] [address] [place] [address] * (ABNORMAL) Ferritin (05/05/2024 9:18 AM EST) Ferritin 282(H) 15 - 150 ng/mL [facility] Blood (Blood, Venous) 05/05/2024 9:18 AM EST 05/05/2024 Barry Reyes MD LAB BLOOD ORDERABLES Final Re sult Performing Organization Address [facility] Co de Phone Number [facility] [address] [place] [address] * Iron Panel (Fe, TIBC, TSAT) (05/05/2024 9:18 AM EST) TIBC 277 250 - 450 ug/dL [facility] UIBC 210 118 - 369 ug/dL [facility] Iron 67 27 - 139 ug/dL [facility] Iron Saturation (TSat) 24 15 - 55 % [facility] Blood (Blood, Venous) 05/05/2024 9:18 AM EST 05/05/2024 Barry Reyes MD LAB BLOOD ORDERABLES Final Re sult Performing Organization Address City/[facility]/ZIP Co de Phone Number [facility] [address] [place] [address] * (ABNORMAL) CBC and Differential (05/05/2024 9:18 AM EST) [facility] Signature WBC 5.6 3.4 - 10.8 x10E3/uL [facility] RBC 5.33(H) 3.77 - 5.28 x10E6/uL [facility] Hemoglobin 10.2(L) 11.1 - 15.9 g/dL [facility] Hematocrit 35.0 34.0 - 46.6 % [facility] MCV 66(L) 79 - 97 fL [facility] MCH 19.1(L) 26.6 - 33.0 pg [facility] MCHC 29.1(L) 31.5 - 35.7 g/dL [facility] RDW 20.1(H) 11.7 - 15.4 % [facility] Platelets 163 150 - 450 x10E3/uL [facility] Neutrophils Relative 64 Not Estab. % [facility] Lymphocytes Relative 26 Not Estab. % [facility] Monocytes 6 Not Estab. % [facility] Eosinophils Relative 3 Not Estab. % [facility] Basophils Relative 1 Not Estab. % [facility] Neutrophils Absolute 3.6 1.4 - 7.0 x10E3/uL [facility] Lymphocytes Absolute 1.5 0.7 - 3.1 x10E3/uL [facility] Monocytes Absolute 0.3 0.1 - 0.9 x10E3/uL [facility] Eosinophils Absolute 0.2 0.0 - 0.4 x10E3/uL [facility] Basophils Absolute 0.0 0.0 - 0.2 x10E3/uL [facility] Immature Granulocytes 0 Not Estab. % [facility] Immature Grans (Absolute) 0.0 0.0 - 0.1 x10E3/uL [facility] Blood (Blood, Venous) 05/05/2024 9:18 AM EST 05/05/2024 us Barry Reyes MD LAB BLOOD ORDERABLES Final Re sult [facility] [address] [place] [address] documented in this encounter Visit Diagnoses Diagnosis Chronic kidney disease, stage 2 (mild) Anemia in chronic kidney disease Iron deficiency anemia, not otherwise specified documented in this encounter Care Teams Environmental Professional Relationship Specialty [place] [address] [place] [address] PCP - General Internal Medicine 10/28/22 documented as of this encounter
--- OUTSIDE RECORDS SUMMARY | 2024-09-05 09:16 | XMS_ITS | Encounter Summary ---
Author Organization [facility] Address [address] [place] [address] Phone Care Team Providers Care Parking Worker Name Role Phone Sahra Son MD Primary Care Provider + Encounter Details Date Type Department Care Team ([facility] Contact Info) Description 06/09/2023 Documentation Only [facility] [address] [place] [address] India Davalos [address] [place] [address] Social History [...] [facility] [address] [place] [address] Barry Reyes MD [address] [place] [address] [place] [address] documented as of this encounter Visit Diagnoses Not on filedocumented in this encounter Care Teams Parking Worker Relationship Specialty Start Date End Date Sahra Son MD [address] [address] PCP - General Internal Medicine 10/28/22 documented as of this encounter
--- OUTSIDE RECORDS SUMMARY | 2024-09-05 09:16 | XMS_ITS | Encounter Summary ---
Author Organization [facility] Address [address] [place] [address] Phone Care Team Providers Care Box Car Bracer Name Role Phone Sahra Son MD Primary Care Provider + Encounter Details Date Type Department Care Team (Late Contact Info) Description 07/21/2024 Orders Only [facility] [address] [place] [address] India Davalos [address] [place] [address] Chronic kidney disease, stage 2 [...] Visit [facility] [address] [place] [address] Barry Reyes MD [address] [place] [address] documented as of this encounter Visit Diagnoses Diagnosis Chronic kidney disease, stage 2 (mild) Anemia in chronic kidney disease Iron deficiency anemia, not otherwise specified documented in this encounter Care Teams Box Car Bracer Relationship Specialty Start Date End Date Sahra Son MD [facility] [place] [address] PCP - General Internal Medicine 10/28/22 documented as of this encounter
--- OUTSIDE RECORDS SUMMARY | 2024-09-05 09:16 | XMS_ITS | Clinical Summary ---
Author Organization [facility] Address [address] [place] [address] Care Team Providers Care Trailer Chief Name Role Phone Sahra Son MD Primary Care Provider + Surgical History Surgery Date Site/Laterality Comments OTHER SURGICAL HISTORY 1975 PROCEDURE: [place] ECTOPIC ABDOMINAL/VAGINAL APPR PARTIAL HYSTERECTOMY PROCEDURE: [place] SUPRACERVICAL ABDL HYSTER W/WO RMVL TUBE OVARY CHOLECYSTECTOMY 1982 PROCEDURE: HISTORICAL CHOLECYSTECTOMY CARPAL TUNNEL RELEASE 11/21/2014 Left PROCEDURE: HISTORICAL CARPAL TUNNEL REL BOWEL RESECTION 03/2004 PROCEDURE: HISTORICAL BOWEL RESECTION; COMMENT: bowel obstruction Medical History Medical History Date Comments Diverticulosis DX:Diverticulosi s CHF (congestive heart failur e) ([facility] V24, [facility] V28) DX:CHF (congestive heart fa ilure) ([facility]) COPD (chronic obstructive pu lmonary disease) ([facility] V24, [facility] V28) DX:COPD (chronic o bstructive pulmonary disease) ([facility]) Osteoporosis DX:Osteoporosis Fibromyalgia DX:Fibromyalgia Myelofibrosis ([facility] V24, [facility] V28) DX:Myelofibrosis ([facility]); COMM ENT: diagnosed 8 years ago, follows with DR layne Meningioma ([facility] V24, [facility] V28) DX:Meningioma ([facility]) Asthma DX:Asthma Gout DX:Gout Seizures ([facility] V24, [facility] V28) DX:Seizures ([facility]) Lupus DX:Lupus Depression DX:Depression; C OMMENT: follows at [facility] net at [place] [address] Gann Hypercoagulable state ([facility] V24) DX:Hypercoagulable state ([facility]); COMMENT: on coumadin Neurogenic bladder DX:Neurogenic bladder; COMMENT: flowers dependent Supplemental oxygen dependent DX :Supplemental oxygen dependent Lung nodule 03/22/2017 DX:Lung nodule ALESSANDRA (obstructive sleep apnea) 03/22/2017 DX :ALESSANDRA (obstructive sleep apnea) GERD (gastroesophageal reflux disease) 03/22/2017 DX:GERD (gastroesophageal reflux disease) Anxiety 03/22/2017 DX:Anxiety Dementia ([facility] V24, [facility] V28) 03/22/2017 DX:Dementia ([facility]) Schizophrenia ([facility] V24, [facility] V28) 03/22/2017 DX:Schizophrenia ([facility]) Glaucoma 03/22/2017 DX:Glaucoma History of stroke DX:History of stroke History of deep vein thrombosis DX:History of deep vein thrombosis Coronary artery disease DX:Coron christine artery disease; COMMENT: Old OR Diabetes mellitus type 2 wit h neurological manifestations ([facility] V24, [facility] V28) DX:Diabetes mellitus type 2 with neurological manifestations ([facility]) Leukemia ([facility] V24, [facility] V28) 09/02/2017 DX:Leukemia ([facility]) MDS (myelodysplastic syndrom e) ([facility] V24, [facility] V28) 09/02/2017 DX:MDS (myelodysplastic syn drome) ([facility]) Hyperthyroidism 09/02/2017 DX:Hyperthyroidi sm History of TIA [...] age to complete this topic Care Teams Trailer Chief Relationship Specialty Start Date End Date Sahra Son MD [facility] [address] [place] [address] PCP - General 08/31/22
--- OUTSIDE RECORDS SUMMARY | 2024-09-05 09:16 | XMS_ITS | Encounter Summary ---
Author Organization [facility] Address [address] [place] [address] Phone Care Team Providers Care Vine Fruit Farming Supervisor Name Role Phone Sahra Son MD Primary Care Provider + Encounter Details Date Type Department Care Team (Late Contact Info) Description 08/04/2024 Orders Only [facility] [address] [place] [address] India Davalos [address] [place] [address] Anemia in chronic kidney disease; [...] [facility] [address] [place] [address] Brary Reyes MD [address] [place] [address] [place] [address] documented as of this encounter [...] Glucose 168(H) 70 - 99 mg/dL [facility] BUN 15 8 - 27 mg/dL [facility] Creatinine 0.93 0.57 - 1.00 mg/dL [facility] eGFR CKD-EPI CR 2020 69 >59 mL/min/1.7 3 [facility] BUN/Creatinine Ratio 16 12 - 28 [facility] Sodium 139 134 - 144 mmol/L [facility] Chloride 103 96 - 106 mmol/L [facility] Bicarbonate (CO2) 24 20 - 29 mmol/L [facility] Calcium 8.8 8.7 - 10.3 mg/dL [facility] Phosphorus 3.8 3.0 - 4.3 mg/dL [facility] Albumin 4.1 3.9 - 4.9 g/dL [facility] Potassium 4.8 3.5 - 5.2 mmol/L [facility] Blood (Blood, Venous) 08/07/2024 8:15 AM EDT 08/07/2024 Barry Reyes MD LAB BLOOD ORDERABLES Final Re sult Performing Organization Address [facility]/ZIP Co de Phone Number [facility] [address] [place] [address] * Ferritin (08/07/2024 8:15 AM EDT) Ferritin 55 15 - 150 ng/mL [facility] Blood (Blood, Venous) 08/07/2024 8:15 AM EDT 08/07/2024 Barry Reyes MD LAB BLOOD ORDERABLES Final Re sult Performing Organization Address [facility] de Phone Number [facility] [address] [place] [address] * (ABNORMAL) Iron Panel (Fe, TIBC, TSAT) (08/07/2024 8:15 AM EDT) TIBC 290 250 - 450 ug/dL [facility] UIBC 251 118 - 369 ug/dL [facility] Iron 39 27 - 139 ug/dL [facility] Iron Saturation (TSat) 13(L) 15 - 55 % [facility] Blood (Blood, Venous) 08/07/2024 8:15 AM EDT 08/07/2024 Barry Reyes MD LAB BLOOD ORDERABLES Final Re sult Performing Organization Address [facility] Co de Phone Number [facility] [address] [place] [address] * (ABNORMAL) CBC and Differential (08/07/2024 8:15 AM EDT) [facility] WBC 5.6 3.4 - 10.8 x10E3/uL [facility] RBC 5.41(H) 3.77 - 5.28 x10E6/uL [facility] Hemoglobin 10.7(L) 11.1 - 15.9 g/dL [facility] Hematocrit 36.1 34.0 - 46.6 % [facility] MCV 67(L) 79 - 97 fL [facility] MCH 19.8(L) 26.6 - 33.0 pg [facility] MCHC 29.6(L) 31.5 - 35.7 g/dL [facility] RDW 18.9(H) 11.7 - 15.4 % [facility] Platelets 171 150 - 450 x10E3/uL [facility] Neutrophils Relative 65 Not Estab. % [facility] Lymphocytes Relative 25 Not Estab. % [facility] Monocytes 6 Not Estab. % [facility] Eosinophils Relative 3 Not Estab. % [facility] Basophils Relative 1 Not Estab. % [facility] Neutrophils Absolute 3.6 1.4 - 7.0 x10E3/uL [facility] Lymphocytes Absolute 1.4 0.7 - 3.1 x10E3/uL [facility] Monocytes Absolute 0.4 0.1 - 0.9 x10E3/uL [facility] Eosinophils Absolute 0.2 0.0 - 0.4 x10E3/uL [facility] Basophils Absolute 0.0 0.0 - 0.2 x10E3/uL [facility] Immature Granulocytes 0 Not Estab. % [facility] Immature Grans (Absolute) 0.0 0.0 - 0.1 x10E3/uL [facility] Blood (Blood, Venous) 08/07/2024 8:15 AM EDT 08/07/2024 us Barry Reyes MD LAB BLOOD ORDERABLES Final Re sult [facility] [address] [place] [address] documented in this encounter Visit Diagnoses Diagnosis Anemia in chronic kidney disease Other iron deficiency anemia Chronic kidney disease, stage 2 (mild) documented in this encounter Care Teams Vine Fruit Farming Supervisor Relationship Specialty Start Date End Date Sahra Son MD [address] [place] [address] PCP - General Internal Medicine 10/28/22 documented as of this encounter
--- OUTSIDE RECORDS SUMMARY | 2024-09-05 09:16 | XMS_ITS | Encounter Summary ---
Author Organization [facility] Address [address] [place] [address] Phone Care Team Providers Care Radiology Orderly Name Role Phone Sahra Son MD Primary Care Provider + Encounter Details Date Type Department Care Team ([facility] Contact Info) Description 06/25/2021 Documentation Only [facility] [address] [place] [address] India Davalos [address] [place] [address] Social History Tobacco Use [...] [facility] [address] [place] [address] Barry Reyes MD [address] [place] [address] [place] [address] documented as of this encounter Visit Diagnoses Not on filedocumented in this encounter Care Teams Radiology Orderly Relationship Specialty Start Date End Date Sahra Son MD [address] [address] PCP - General Internal Medicine 10/28/22 documented as of this encounter
--- OUTSIDE RECORDS SUMMARY | 2024-09-05 09:16 | XMS_ITS | Clinical Summary ---
Author Organization [facility] Address [address] [place] [address] Care Team Providers Care Director Advertising Name Role Phone Geovani Natalie Carmelo ESPARZA Primary Care Provider [phone] Allergies Active Allergy Reactions Criticality Noted Date [...] 1 10/04/2016 Active ergocalciferol (VITAMIN D2) capsule 29198 units TK ONE C PO TWICE A [...] times a day. 0 04/27/2022 Active pancrelipase, Xrs-Exax-Mioq, (Creon) [address] units CPEP TK ONE C PO TID [...] to complete this topic Care Teams Director Advertising Relationship Specialty Start Date End Date Natalie Olivo APRN [address] [place] [address] PCP - General Publishing Agent 04/30/22
--- OUTSIDE RECORDS SUMMARY | 2024-09-05 09:16 | XMS_ITS | Encounter Summary ---
Author Organization [facility] Address [address] [place] [address] Phone Care Team Providers Care Duplication Specialist Name Role Phone Sahra Son MD Primary Care Provider + Encounter Details Date Type Department Care Team ([facility] Contact Info) Description 10/07/2021 Documentation Only [facility] [address] [place] [address] India Davalos [address] [place] [address] Social History Tobacco Use Types [...] [facility] [address] [place] [address] Barry Reyes MD [address] [place] [address] [place] [address] documented as of this encounter Visit Diagnoses Not on filedocumented in this encounter Care Teams Duplication Specialist Relationship Specialty Start Date End Date Sahra Son MD [address] [address] PCP - General Internal Medicine 10/28/22 documented as of this encounter
--- OUTSIDE RECORDS SUMMARY | 2024-09-05 09:16 | XMS_ITS | Encounter Summary ---
Author Organization [facility] Address [address] [place] [address] Phone Care Team Providers Care Manager Civil Name Role Phone Sahra Son MD Primary Care Provider + Encounter Details Date Type Department Care Team ([facility] Contact Info) Description 12/24/2022 Documentation Only [facility] [address] [address] Carol Whelan [address] [place] [address] Social History Tobacco Use Types [...] [facility] [address] [place] [address] Barry Reyes MD [address] [place] [address] documented as of this encounter Visit Diagnoses Not on filedocumented in this encounter Care Teams Manager Civil Relationship Specialty Start Date End Date Sahra Son MD [address] [address] PCP - General Internal Medicine 10/28/22 documented as of this encounter
--- OUTSIDE RECORDS SUMMARY | 2024-09-05 09:16 | XMS_ITS | Encounter Summary ---
Author Organization [facility] Address [address] [place] [address] Phone Care Team Providers Care Engineering Team Supervisor Name Role Phone Sahra Son MD Primary Care Provider + Encounter Details Date Type Department Care Team ([facility] Contact Info) Description 08/27/2021 Documentation Only [facility] [address] [place] [address] India Davalos [address] [place] [address] Social History Tobacco Use Types [...] [facility] [address] [place] [address] Barry Reyes MD [address] [place] [address] [place] [address] documented as of this encounter Visit Diagnoses Not on filedocumented in this encounter Care Teams Engineering Team Supervisor Relationship Specialty Start Date End Date Sahra Son MD [address] [address] PCP - General Internal Medicine 10/28/22 documented as of this encounter
--- OUTSIDE RECORDS SUMMARY | 2024-09-05 09:16 | XMS_ITS | Encounter Summary ---
Author Organization [facility] Address [address] [place] [address] Phone Care Team Providers Care Scouring Train Operator Name Role Phone Sahra Son MD Primary Care Provider + Encounter Details Date Type Department Care Team ([facility] Contact Info) Description 10/26/2022 Documentation Only [facility] [address] [place] [address] India Davalos [address] [place] [address] Social History Tobacco Use Types [...] Upcoming Encounters Date Type Department Care Team ([facility] Contact Info) Description 11/23/2024 12:50 PM EDT Office Visit [facility] [address] [place] [address] Barry Reyes MD [address] [place] [address] [place] [address] documented as of this encounter Visit Diagnoses Not on filedocumented in this encounter Care Teams Scouring Train Operator Relationship Specialty Start Date End Date Sahra Son MD [address] [address] PCP - General Internal Medicine 10/28/22 documented as of this encounter
--- OUTSIDE RECORDS SUMMARY | 2024-09-05 09:16 | XMS_ITS | Encounter Summary ---
Author Organization [facility] Address [address] [place] [address] Phone Care Team Providers Care Office Copy Selector Name Role Phone Sahra Son MD Primary Care Provider + Encounter Details Date Type Department Care Team ([facility] Contact Info) Description 03/11/2023 Documentation Only [facility] [address] [place] [address] India Davalos [address] [place] [address] Social History Tobacco Use Types [...] [facility] [address] [place] [address] Barry Reyes MD [address] [place] [address] [place] [address] documented as of this encounter Visit Diagnoses Not on filedocumented in this encounter Care Teams Office Copy Selector Relationship Specialty Start Date End Date Sahra Son MD [address] [address] PCP - General Internal Medicine 10/28/22 documented as of this encounter
[2024-09-05 09:19] LABS: Prothrombin Time Whole Bld POC 19.3 sec (11.1-13.5); ~PT, ~INR - Anti Coag Clinic 1.6 (0.9-1.1)
--- NOTE | 2024-09-05 09:25 | MHC.OFFVISCO ---
Intake Intake Visit Reasons: Anticoagulation Allergies codeine [Codeine] Allergy (Severe, Verified 09/05/24 09:12) DIFFICULTY BREATHING Penicillins Allergy (Severe, Verified 09/05/24 09:12) RASH penicillin V Allergy (Intermediate, Verified 09/05/24 09:12) RASH tramadol [Ultram] Allergy (Unknown, Verified 09/05/24 09:12) hallucinations Shellfish Allergy (Severe, Uncoded 09/05/24 09:12) THROAT SWELLING Contrast Allergy PreMed Pack Allergy (Unknown, Uncoded 09/05/24 09:12) TREAT WITH BENADRYL ferrlecit Adverse Reaction (Intermediate, Uncoded 09/05/24 09:12) Rash Medication List - Last Reconciled 09/05/24 by Tonia Denney RN atorvastatin 80 mg PO DAILY blood sugar diagnostic As directed budesonide (Pulmicort) 0.25 mg inhalation BID clonidine HCl 0.1 mg PO BID duloxetine 120 mg PO QAM epoetin marj (Procrit) 2,000 units subcut 3XW hydrocortisone 2.5% appl topical ipratropium-albuterol 0.5 mg-3 mg(2.5 mg base)/3 mL mL inhalation ipratropium-albuterol 20-100 mcg/actuation 1 puff PO QID ipratropium-albuterol 20-100 mcg/actuation (Combivent Respimat) 1 puff inhalation Q4H lancets As directed lancets As directed latanoprost 0.005% drps ophthalmic (eye) linagliptin (Tradjenta) 5 mg PO DAILY kkrkdy-xjcbnyhi-phclicw 24,000-76,000 -120,000 unit (Creon) 1 cap PO TID loratadine 10 mg PO DAILY PRN lorazepam 1 mg PO BID meclizine mg PO montelukast 10 mg PO BEDTIME nifedipine ER 30 mg PO DAILY nitroglycerin 0.4 mg sublingual Q5M PRN nystatin 1 appl topical DAILY PRN ondansetron 4 mg PO Q8H PRN oxcarbazepine (Trileptal) 1 tab qhs x's 1 week then 1 tab bid orally .; 30 days quetiapine 200 mg PO BEDTIME rabeprazole 20 mg PO DAILY ropinirole 0.25 mg PO BEDTIME sodium chloride 0.65% (Deep Sea Nasal) sprays intranasal Q2H PRN triamcinolone acetonide 0.1% appl topical warfarin 2.5 mg See Protocol PO DAILY Nursing Note Amb to [facility] feeling stressed indicates family issues, father dying and not being able to spend time with him Medications and supplements reviewed, started on Oxcarbazepine for seizures approx 07/06/24, sts has had only 1 seizure since starting med (can decrease INR) warfarin dosing changes, has been running below TR pt reports fracture ribs and some loss of appetite, nausea No other changes in health, diet, medications, or supplements, Denies any signs and symptoms of bleeding,bruising, or clotting. Bleeding, bruising, clotting discussed INR: 1.6 below therapeutic range, denies missing doses and sts she is following dosing sheet Dose: pt to take 5mg today, tomorrow and , 3.75mg Wednesday and Wednesday, 5mg on Wednesday and return for recheck on Wednesday to check for any movement in INR previous dosing 27.50mg, last week 30mg, this dosing will be 31.25mg Instructed no greens when able to eat x 2 days then eat usual diet F/U INR: 1 week Patient verbalizes understanding of instructions given Anti-Coag Initial Assessment Social Hx Patient Tobacco Use Status: Current everyday Tobacco user alcohol intake: never Coding Level of Care Code Est Patient Level 1 Diagnoses Current use of anticoagulant therapy Z79.01 Time Spent (min) 15 Assessment & Plan Assessment & Plan (1) Current use of anticoagulant therapy: Code(s): Z79.01 - FDC (current) use of anticoagulants Category: Medical
== END 2024-09-05 09:36 | disposition home or self-care (01) ==
LOC: HO.ACS 08:51
PROVIDERS: PCP Internal Medicine; Visit Provider Internal Medicine Medical Oncology
DX: Z79.01 Long term (current) use of anticoagulants (principal)

== ENCOUNTER → 2024-09-05 08:51 | Outpatient (BNVA) | payer OTHER, SELFPAY | PROVIDERS: PCP Internal Medicine; Visit Provider Internal Medicine Medical Oncology | DX: Z86.718 Personal history of other venous thrombosis and embolism (principal); Z79.01 Long term (current) use of anticoagulants; Z51.81 Encounter for therapeutic drug level monitoring | CPT/HCPCS: 85610; 99211 ==

== ENCOUNTER 2024-09-11 09:06 | Outpatient (AMB) | payer OTHER, SELFPAY ==
[2024-09-11 09:26] LABS: Prothrombin Time Whole Bld POC 19.8 sec (11.1-13.5); ~PT, ~INR - Anti Coag Clinic 1.6 (0.9-1.1)
--- NOTE | 2024-09-11 09:31 | MHC.OFFVISCO ---
Intake Intake Visit Reasons: Anticoagulation Allergies codeine [Codeine] Allergy (Severe, Verified 09/11/24 09:19) DIFFICULTY BREATHING Penicillins Allergy (Severe, Verified 09/11/24 09:19) RASH penicillin V Allergy (Intermediate, Verified 09/11/24 09:19) RASH tramadol [Ultram] Allergy (Unknown, Verified 09/11/24 09:19) hallucinations Shellfish Allergy (Severe, Uncoded 09/11/24 09:19) THROAT SWELLING Contrast Allergy PreMed Pack Allergy (Unknown, Uncoded 09/11/24 09:19) TREAT WITH BENADRYL ferrlecit Adverse Reaction (Intermediate, Uncoded 09/11/24 09:19) Rash Medication List - Last Reconciled 09/11/24 by Tonia Angeles RN atorvastatin 80 mg PO DAILY blood sugar diagnostic As directed budesonide (Pulmicort) 0.25 mg inhalation BID clonidine HCl 0.1 mg PO BID duloxetine 120 mg PO QAM epoetin marj (Procrit) 2,000 units subcut 3XW hydrocortisone 2.5% appl topical ipratropium-albuterol 0.5 mg-3 mg(2.5 mg base)/3 mL mL inhalation ipratropium-albuterol 20-100 mcg/actuation 1 puff PO QID ipratropium-albuterol 20-100 mcg/actuation (Combivent Respimat) 1 puff inhalation Q4H lancets As directed lancets As directed latanoprost 0.005% drps ophthalmic (eye) linagliptin (Tradjenta) 5 mg PO DAILY tpcgyp-eniqnkam-iqgpxeg 24,000-76,000 -120,000 unit (Creon) 1 cap PO TID loratadine 10 mg PO DAILY PRN lorazepam 1 mg PO BID meclizine mg PO montelukast 10 mg PO BEDTIME nifedipine ER 30 mg PO DAILY nitroglycerin 0.4 mg sublingual Q5M PRN nystatin 1 appl topical DAILY PRN ondansetron 4 mg PO Q8H PRN oxcarbazepine (Trileptal) 1 tab qhs x's 1 week then 1 tab bid orally .; 30 days quetiapine 200 mg PO BEDTIME rabeprazole 20 mg PO DAILY ropinirole 0.25 mg PO BEDTIME sodium chloride 0.65% (Deep Sea Nasal) sprays intranasal Q2H PRN triamcinolone acetonide 0.1% appl topical warfarin 2.5 mg See Protocol PO DAILY Nursing Note INR:??1.6 out of therapeutic range of 2-3 Pt denies missed dose. Medications and supplements reviewed Patient status: no changes Medications or supplements: same Diet: pt states she has no appetite Denies any signs and symptoms of bleeding or clotting or unusual bruising Bleeding, bruising, clotting discussed Nutritional guidance given: to avoid greens X 3 days Dose: weekly dose increased to 5mg X 4 days (instead of 3 days) and 3.75mg X 3 days but today, pt will take 7.5mg F/U INR Date: 1 week?? Patient verbalizing understanding of instructions given. Anti-Coag Initial Assessment Social Hx Patient Tobacco Use Status: Current everyday Tobacco user alcohol intake: never Coding Level of Care Code Est Patient Level 1 Diagnoses Current use of anticoagulant therapy Z79.01 Results AMB INR Fingerstick AMB INR Fingerstick 1.6 Last Edit by Tonia Angeles RN on 09/11/24 09:31 interface delay Assessment & Plan Assessment & Plan (1) Current use of anticoagulant therapy: Code(s): Z79.01 - long term care administrator (current) use of anticoagulants Category: Medical
--- OUTSIDE RECORDS SUMMARY | 2024-09-11 09:54 | XMS_ITS | Encounter Summary ---
Author Organization [facility] Address [address] [place] [address] Phone Care Team Providers Care Behavior Analyst Name Role Phone Sahra Son MD Primary Care Provider + Encounter Details Date Type Department Care Team ([facility] Contact Info) Description 03/22/2024 Documentation Only [facility] [address] [place] [address] India Davalos [address] [place] [address] Social History Tobacco Use Types [...] [facility] [address] [place] [address] Barry Reyes MD [address] [place] [address] [place] [address] documented as of this encounter Visit Diagnoses Not on filedocumented in this encounter Care Teams Behavior Analyst Relationship Specialty Start Date End Date Sahra Son MD [address] [address] PCP - General Internal Medicine 10/28/22 documented as of this encounter
--- OUTSIDE RECORDS SUMMARY | 2024-09-11 09:54 | XMS_ITS | Encounter Summary ---
Author Organization [facility] Address [address] [place] [address] Care Team Providers Care Machine Tool Designer Name Role Phone Sahra Son MD Primary Care Provider Marko Fernandez MD Unavailable [phone] Encounter Details Date Type Department Care Team Description 09/02/2022 Telephone Pulmonology - [place] [address] [facility] [facility] [address] [place] [phone] Betty Morillo MD [address] [address] [place] [phone] Social History Tobacco Use Types Packs/Day Years [...] pcp [facility] requesting last office notes fax [phone] documented in this encounter Plan of Treatment Not on file documented as of this encounter Visit Diagnoses Not on filedocumented in this encounter Care Teams Machine Tool Designer Relationship Specialty Start Date End Date Sahra Son MD PCP - General Internal Medicine 08/31/22 Marko Spaulding MD Specialist Cardiology 09/23/22 documented as of this encounter
--- OUTSIDE RECORDS SUMMARY | 2024-09-11 09:54 | XMS_ITS | Encounter Summary ---
Author Organization [facility] Address [address] [place] [address] Phone Care Team Providers Care Power Line Installer And Repairer Name Role Phone Sahra Son MD Primary Care Provider + Encounter Details Date Type Department Care Team ([facility] Contact Info) Description 06/17/2022 Documentation Only [facility] [address] [place] [address] India Davalos [address] [place] [address] Social History Tobacco Use Types [...] [facility] [address] [place] [address] Barry Reyes MD [address] [place] [address] [place] [address] documented as of this encounter Visit Diagnoses Not on filedocumented in this encounter Care Teams Power Line Installer And Repairer Relationship Specialty Start Date End Date Sahra Son MD [address] [address] PCP - General Internal Medicine 10/28/22 documented as of this encounter
--- OUTSIDE RECORDS SUMMARY | 2024-09-11 09:54 | XMS_ITS | Encounter Summary ---
Author Organization [facility] Address [address] [place] [address] Phone Care Team Providers Care Solar Energy Systems Designer Name Role Phone Sahra Son MD Primary Care Provider + Encounter Details Date Type Department Care Team ([facility] Contact Info) Description 09/18/2022 Documentation Only [facility] [address] [place] [address] India Davalos [address] [place] [address] Social History Tobacco Use Types [...] Upcoming Encounters Date Type Department Care Team ([facility] Contact Info) Description 11/23/2024 12:50 PM EDT Office Visit [facility] [address] [place] [address] Barry Reyes MD [address] [place] [address] [place] [address] documented as of this encounter Visit Diagnoses Not on filedocumented in this encounter Care Teams Solar Energy Systems Designer Relationship Specialty Start Date End Date Sahra Son MD [address] [address] PCP - General Internal Medicine 10/28/22 documented as of this encounter
--- OUTSIDE RECORDS SUMMARY | 2024-09-11 09:54 | XMS_ITS | Encounter Summary ---
Author Organization [facility] Address [address] [place] [address] Phone Care Team Providers Care Family Consumer Science Teacher Name Role Phone Sahra Son MD Primary Care Provider + Encounter Details Date Type Department Care Team ([facility] Contact Info) Description 09/28/2022 Documentation Only [facility] [address] [place] [address] India Davalos [address] [place] [address] Social History Tobacco Use [...] Upcoming Encounters Date Type Department Care Team ([facility] Contact Info) Description 11/23/2024 12:50 PM EDT Office Visit [facility] [address] [place] [address] Barry Reyes MD [address] [place] [address] [place] [address] documented as of this encounter Visit Diagnoses Not on filedocumented in this encounter Care Teams Family Consumer Science Teacher Relationship Specialty Start Date End Date Sahra oSn MD [address] [address] PCP - General Internal Medicine 10/28/22 documented as of this encounter
--- OUTSIDE RECORDS SUMMARY | 2024-09-11 09:54 | XMS_ITS | Encounter Summary ---
Author Organization [facility] Address [address] [place] [address] Care Team Providers Care Caster Investment Casting Name Role Phone Sahra Son MD Primary Care Provider Paula daryilaMarko Perales MD Unavailable [phone] Reason for Visit * Reason Onset Date Comments Prior Authorization 09/01/2022 CT CHEST Encounter Details Date Type Department Care Team Description 09/01/2022 Telephone Pulmonology - [place] [address] [facility] [address] [place] [phone] Betty Morillo MD [address] [facility] [address] [place] [phone] Prior Authorization (CT CHEST) Social History Tobacco [...] Ref#: Barbara Gann on 09/09 @ 11:31 [id number] * Telephone Encounter - Dilcia Hannon - 09/01/2022 1:20 PM EDT [facility] - Auth Pending (7-14 days to process) Auth request, clinicals and Rad report faxed to [facility]. [id number] documented in this encounter Plan of Treatment Not on file documented as of this encounter Visit Diagnoses Not on filedocumented in this encounter Care Teams Caster Investment Casting Relationship Specialty Start Date End Date Sahra Son MD PCP - General Internal Medicine 08/31/22 Marko Spaulding MD Specialist Cardiology 09/23/22 documented as of this encounter
--- OUTSIDE RECORDS SUMMARY | 2024-09-11 09:54 | XMS_ITS | Encounter Summary ---
Author Organization [facility] Address [address] [place] [address] Phone Care Team Providers Care Professional System Administrator Name Role Phone Sahra Son MD Primary Care Provider + Encounter Details Date Type Department Care Team (Late Contact Info) Description 03/03/2024 Orders Only [facility] [address] [place] [address] India Davalos [address] [place] [address] Chronic kidney disease, stage 2 [...] [facility] [address] [place] [address] Barry Reyes MD [address] [place] [address] [place] [address] documented as of this encounter [...] Glucose 152(H) 70 - 99 mg/dL [facility] BUN 16 8 - 27 mg/dL [facility] Creatinine 0.98 0.57 - 1.00 mg/dL [facility] eGFR CKD-EPI CR 2020 64 >59 mL/min/1.7 3 [facility] BUN/Creatinine Ratio 16 12 - 28 [facility] Sodium 137 134 - 144 mmol/L [facility] Potassium 4.8 3.5 - 5.2 mmol/L [facility] Chloride 101 96 - 106 mmol/L [facility] Bicarbonate (CO2) 22 20 - 29 mmol/L [facility] Calcium 8.8 8.7 - 10.3 mg/dL [facility] Albumin 4.0 3.9 - 4.9 g/dL [facility] Phosphorus 4.0 3.0 - 4.3 mg/dL [facility] Blood (Blood, Venous) 03/24/2024 10:37 AM EST 03/24/2024 Barry Reyes MD LAB BLOOD ORDERABLES Final Re sult Performing Organization Address City/[facility]/ZIP Co de Phone Number [facility] [address] [place] [address] * Ferritin (03/24/2024 10:37 AM EST) Ferritin 37 15 - 150 ng/mL [facility] Blood (Blood, Venous) 03/24/2024 10:37 AM EST 03/24/2024 Barry Reyes MD LAB BLOOD ORDERABLES Final Re sult Performing Organization Address [facility] de Phone Number [facility] [address] [place] [address] * Iron Panel (Fe, TIBC, TSAT) (03/24/2024 10:37 AM EST) Pathologist [facility] TIBC 293 250 - 450 ug/dL [facility] UIBC 247 118 - 369 ug/dL [facility] Iron 46 27 - 139 ug/dL [facility] Iron Saturation (TSat) 16 15 - 55 % [facility] Blood (Blood, Venous) 03/24/2024 10:37 AM EST 03/24/2024 Barry Reyes MD LAB BLOOD ORDERABLES Final Re sult Performing Organization Address City/[facility]/ZIP Co de Phone Number [facility] [address] [place] [address] * (ABNORMAL) CBC and Differential (03/24/2024 10:37 AM EST) [facility] WBC 6.0 3.4 - 10.8 x10E3/uL [facility] RBC 5.21 3.77 - 5.28 x10E6/uL [facility] Hemoglobin 10.0(L) 11.1 - 15.9 g/dL [facility] Hematocrit 35.3 34.0 - 46.6 % [facility] MCV 68(L) 79 - 97 fL [facility] MCH 19.2(L) 26.6 - 33.0 pg [facility] MCHC 28.3(L) 31.5 - 35.7 g/dL [facility] RDW 19.4(H) 11.7 - 15.4 % [facility] Platelets 186 150 - 450 x10E3/uL [facility] Neutrophils Relative 65 Not Estab. % [facility] Lymphocytes Relative 26 Not Estab. % [facility] Monocytes 6 Not Estab. % [facility] Eosinophils Relative 2 Not Estab. % [facility] Basophils Relative 1 Not Estab. % [facility] Neutrophils Absolute 3.9 1.4 - 7.0 x10E3/uL [facility] Lymphocytes Absolute 1.5 0.7 - 3.1 x10E3/uL [facility] Monocytes Absolute 0.3 0.1 - 0.9 x10E3/uL [facility] Eosinophils Absolute 0.1 0.0 - 0.4 x10E3/uL [facility] Basophils Absolute 0.0 0.0 - 0.2 x10E3/uL [facility] Immature Granulocytes 0 Not Estab. % [facility] Immature Grans (Absolute) 0.0 0.0 - 0.1 x10E3/uL [facility] Blood (Blood, Venous) 03/24/2024 10:37 AM EST 03/24/2024 us Barry Reyes MD LAB BLOOD ORDERABLES Final Re sult [facility] [address] [place] [address] documented in this encounter Visit Diagnoses Diagnosis Chronic kidney disease, stage 2 (mild) Anemia in chronic kidney disease Iron deficiency anemia, not otherwise specified documented in this encounter Care Teams Professional System Administrator Relationship Specialty Start Date End Date Sahra Son MD [address] [place] [address] PCP - General Internal Medicine 10/28/22 documented as of this encounter
--- OUTSIDE RECORDS SUMMARY | 2024-09-11 09:54 | XMS_ITS | Encounter Summary ---
Author Organization [facility] Address [address] [place] [address] Phone Care Team Providers Care Skid Machine Operator Name Role Phone Sahra Son MD Primary Care Provider + Encounter Details Date Type Department Care Team ([facility] Contact Info) Description 06/16/2022 Documentation Only [facility] [address] [place] [address] India Davalos [address] [place] [address] Social History Tobacco Use Types [...] [facility] [address] [place] [address] Barry Reyes MD [address] [place] [address] [place] [address] documented as of this encounter Visit Diagnoses Not on filedocumented in this encounter Care Teams Skid Machine Operator Relationship Specialty Start Date End Date Sahra Son MD [address] [address] PCP - General Internal Medicine 10/28/22 documented as of this encounter
--- OUTSIDE RECORDS SUMMARY | 2024-09-11 09:54 | XMS_ITS | Encounter Summary ---
Author Organization [facility] Address [address] [place] [address] Phone Care Team Providers Care X Ray Electronics Wireman Name Role Phone Sahra Son MD Primary Care Provider + Encounter Details Date Type Department Care Team ([facility] Contact Info) Description 09/28/2022 Documentation Only [facility] [address] [place] [address] India Davalos [address] [place] [address] Social History Tobacco Use Types [...] [facility] [address] [place] [address] Barry Reyes MD [address] [place] [address] [place] [address] documented as of this encounter Visit Diagnoses Not on filedocumented in this encounter Care Teams X [employer] Electronics Wireman Relationship Specialty Start Date End Date Sahra Son MD [address] [address] PCP - General Internal Medicine 10/28/22 documented as of this encounter
--- OUTSIDE RECORDS SUMMARY | 2024-09-11 09:54 | XMS_ITS | Encounter Summary ---
Author Organization [facility] Address [address] [place] [address] Care Team Providers Care Housing Specialist Name Role Phone Vinnie Santizo Primary Care Provider Sahra Keith MD Primary Care Provider Marko Fernandez MD Unavailable [phone] Encounter Details Date Type Department Care Team Description 08/27/2022 SCAN Medical Records [address] [place] [id number] [place] [address] Social History Tobacco Use Types Packs/Day Years [...] on filedocumented in this encounter Care Teams Housing Specialist Relationship Specialty Start Date End Date Vinnie Santizo PCP - General Internal Medicine 03/30/17 08/30/22 Sahra Son MD PCP - General Internal Medicine 08/31/22 Marko Spaulding MD Specialist Cardiology 09/23/22 documented as of this encounter
--- OUTSIDE RECORDS SUMMARY | 2024-09-11 09:54 | XMS_ITS | Encounter Summary ---
Author Organization [facility] Address [address] [place] [address] Phone Care Team Providers Care Plastic Extrusion Operator Name Role Phone Sahra Son MD Primary Care Provider + Encounter Details Date Type Department Care Team ([facility] Contact Info) Description 06/22/2022 Documentation Only [facility] [address] [place] [address] India Davalos [address] [place] [address] Social History Tobacco Use Types [...] [facility] [address] [place] [address] Barry Reyes MD [address] [place] [address] [place] [address] documented as of this encounter Visit Diagnoses Not on filedocumented in this encounter Care Teams Plastic Extrusion Operator Relationship Specialty Start Date End Date Sahra Son MD [address] [address] PCP - General Internal Medicine 10/28/22 documented as of this encounter
--- OUTSIDE RECORDS SUMMARY | 2024-09-11 09:54 | XMS_ITS | Encounter Summary ---
Author Organization [facility] Address [address] [place] [address] Phone Care Team Providers Care Paper Tube Cutter Name Role Phone Sahra Son MD Primary Care Provider + Encounter Details Date Type Department Care Team ([facility] Contact Info) Description 09/28/2022 Documentation Only [facility] [address] [place] [address] India Davalos [address] [place] [address] Social History Tobacco Use Types [...] Upcoming Encounters Date Type Department Care Team ([facility] Contact Info) Description 11/23/2024 12:50 PM EDT Office Visit [facility] [address] [place] [address] Barry Reyes MD [address] [place] [address] [place] [address] documented as of this encounter Visit Diagnoses Not on filedocumented in this encounter Care Teams Paper Tube Cutter Relationship Specialty Start Date End Date Sahra Son MD [address] [address] PCP - General Internal Medicine 10/28/22 documented as of this encounter
--- OUTSIDE RECORDS SUMMARY | 2024-09-11 09:54 | XMS_ITS | Encounter Summary ---
Author Organization [facility] Address [address] [place] [address] Phone Care Team Providers Care Assistant Commissioner Name Role Phone Sahra Son MD Primary Care Provider + Encounter Details Date Type Department Care Team ([facility] Contact Info) Description 06/18/2021 Documentation Only [facility] [address] [place] [address] India Davalos [address] [place] [address] Social History Tobacco Use Types [...] [facility] [address] [place] [address] Barry Reyes MD [address] [place] [address] [place] [address] documented as of this encounter Visit Diagnoses Not on filedocumented in this encounter Care Teams Assistant Commissioner Relationship Specialty Start Date End Date Sahra Son MD [address] [address] PCP - General Internal Medicine 10/28/22 documented as of this encounter
--- OUTSIDE RECORDS SUMMARY | 2024-09-11 09:54 | XMS_ITS | Encounter Summary ---
Author Organization [facility] Address [address] [place] [address] Phone Care Team Providers Care Pot Puncher Name Role Phone Sahra Son MD Primary Care Provider + Encounter Details Date Type Department Care Team ([facility] Contact Info) Description 09/28/2022 Documentation Only [facility] [address] [place] [address] India Davalos [address] [place] [address] Social History Tobacco Use Types [...] Upcoming Encounters Date Type Department Care Team ([facility] Contact Info) Description 11/23/2024 12:50 PM EDT Office Visit [facility] [address] [place] [address] Barry Reyes MD [address] [place] [address] [place] [address] documented as of this encounter Visit Diagnoses Not on filedocumented in this encounter Care Teams Pot Puncher Relationship Specialty Start Date End Date Sahra Son MD [address] [address] PCP - General Internal Medicine 10/28/22 documented as of this encounter
--- OUTSIDE RECORDS SUMMARY | 2024-09-11 09:55 | XMS_ITS | Encounter Summary ---
Author Organization [facility] Address [address] [place] [address] Phone Care Team Providers Care Resp Ther Name Role Phone Sahra Son MD Primary Care Provider + Encounter Details Date Type Department Care Team ([facility] Contact Info) Description 08/28/2024 Documentation Only [facility] [address] [place] [address] India Davalos [address] [place] [address] Social History Tobacco Use [...] [facility] [address] [place] [address] Barry Reyes MD [address] [place] [address] [place] [address] documented as of this encounter Visit Diagnoses Not on filedocumented in this encounter Care Teams Resp Ther Relationship Specialty Start Date End Date Sahra Son MD [address] [address] PCP - General Internal Medicine 10/28/22 documented as of this encounter
--- OUTSIDE RECORDS SUMMARY | 2024-09-11 09:55 | XMS_ITS | Encounter Summary ---
Author Organization [facility] Address [address] [place] [address] Phone Care Team Providers Care Warehouse Logistics Coordinator Name Role Phone Sahra Son MD Primary Care Provider + Encounter Details Date Type Department Care Team ([facility] Contact Info) Description 12/23/2021 Documentation Only [facility] [address] [place] [address] Juan Jose Li MD [address] [place] [address] [place] [address] Social History Tobacco Use Types [...] [facility] [address] [place] [address] Barry Reyes MD [address] [place] [address] [place] [address] documented as of this encounter Visit Diagnoses Not on filedocumented in this encounter Care Teams Warehouse Logistics Coordinator Relationship Specialty Start Date End Date Sahra Son MD [address] [address] PCP - General Internal Medicine 10/28/22 documented as of this encounter
--- OUTSIDE RECORDS SUMMARY | 2024-09-11 09:55 | XMS_ITS | Encounter Summary ---
Author Organization [facility] Address [address] [place] [address] Phone Care Team Providers Care Dinker Name Role Phone Sahra Son MD Primary Care Provider + Encounter Details Date Type Department Care Team ([facility] Contact Info) Description 11/11/2023 Documentation Only [facility] [address] [place] [address] India Davalos [address] [place] [address] Social History Tobacco Use Types [...] [facility] [address] [place] [address] Barry Reyes MD [address] [place] [address] [place] [address] documented as of this encounter Visit Diagnoses Not on filedocumented in this encounter Care Teams Dinker Relationship Specialty Start Date End Date Sahra Son MD [address] [address] PCP - General Internal Medicine 10/28/22 documented as of this encounter
--- OUTSIDE RECORDS SUMMARY | 2024-09-11 09:55 | XMS_ITS | Encounter Summary ---
Author Organization [facility] Address [address] [place] [address] Phone Care Team Providers Care Auto Body Repairman Name Role Phone Sahra Son MD Primary Care Provider + Encounter Details Date Type Department Care Team ([facility] Contact Info) Description 12/31/2023 Documentation Only [facility] [address] [place] [address] India Davalos [address] [place] [address] Social History Tobacco Use Types [...] [facility] [address] [place] [address] Barry Reyes MD [address] [place] [address] [place] [address] documented as of this encounter Visit Diagnoses Not on filedocumented in this encounter Care Teams Auto Body Repairman Relationship Specialty Start Date End Date Sahra Son MD [address] [address] PCP - General Internal Medicine 10/28/22 documented as of this encounter
--- OUTSIDE RECORDS SUMMARY | 2024-09-11 09:55 | XMS_ITS | Encounter Summary ---
Author Organization [facility] Address [address] [place] [address] Phone Care Team Providers Care Grain Roaster Name Role Phone Sahra Son MD Primary Care Provider + Encounter Details Date Type Department Care Team ([facility] Contact Info) Description 08/22/2021 Documentation Only [facility] [address] [place] [address] India Davalos [address] [place] [address] Social History Tobacco Use Types [...] [facility] [address] [place] [place] [address] Barry Reyes MD [address] [place] [address] [place] [address] documented as of this encounter Visit Diagnoses Not on filedocumented in this encounter Care Teams Grain Roaster Relationship Specialty Start Date End Date Sahra Son MD [address] [address] PCP - General Internal Medicine 10/28/22 documented as of this encounter
--- OUTSIDE RECORDS SUMMARY | 2024-09-11 09:55 | XMS_ITS | Encounter Summary ---
Author Organization [facility] [place] Address [address] [place] [address] Phone Care Team Providers Care Credit Or Loans Officer Name Role Phone Sahra Son MD Primary Care Provider + Encounter Details Date Type Department Care Team (Late st Contact Info) Description 08/18/2024 Office Communication [facility] - [address] [place] [address] Stephanie Azul, LAURITA [address] [place] [address] [place] [address] Social History Tobacco Use Types Packs/Day Years [...] encounter Miscellaneous Notes * Telephone Encounter - India Davalos - 09/06/2024 11:16 AM EDT Received notification from Cristy via [facility] scheduling that Jennifer has been scheduled for 09/08 at 9:30 am and 09/20 at 9 am via the [facility] infusion suite. * Telephone Encounter - India Davalos - 08/23/2024 3:44 PM EDT Notified scheduling of need, faxed order. * Telephone Encounter - Stephanie Azul RN - 08/18/2024 3:18 PM EDT On 08/07/24 tsats 13,ferritin 55. Allergic to veonfer and feraheme. In the past you were getting orders for Injectafer 750 mg IVP: (04/03/24 Encounter note: Author was asked by India Davalos to clarify injectafer dose for pt d/t allergy to venofer and feraheme. Author messaged [facility]. Arlene ordered injectafer 750 mg IVP x 2 doses 1 week apart. IVP undiluted slow rate of 100 mg per minute. Forwarded order to APARNA Osborne, via [employer] message). I would like to get orders for the same dose and frequency: Injectafer 750 mg IVP x 2 doses 1 week apart. IVP undiluted to slow rate of 100mg per minute. documented in this encounter Plan of Treatment Upcoming Encounters Date Type Department Care Team (Late st Contact Info) Description 11/23/2024 12:50 PM EDT Office Visit [facility] [address] [address] Barry Reyes MD [address] [facility] [place] [address] documented as of this encounter Visit Diagnoses Not on filedocumented in this encounter Care Teams Credit Or Loans Officer Relationship Specialty Start Date End Date Sahra Son MD [address] [address] PCP - General Internal Medicine 10/28/22 documented as of this encounter
--- OUTSIDE RECORDS SUMMARY | 2024-09-11 09:55 | XMS_ITS | Encounter Summary ---
Author Organization [facility] Address [address] [place] [address] Phone Care Team Providers Care Security Control Room Officer Name Role Phone Sahra Son MD Primary Care Provider + Encounter Details Date Type Department Care Team ([facility] Contact Info) Description 03/11/2023 Documentation Only [facility] [address] [place] [address] India Davalos [address] [place] [address] Social History Tobacco Use Types [...] Upcoming Encounters Date Type Department Care Team ([facility] Contact Info) Description 11/23/2024 12:50 PM EDT Office Visit [facility] [address] [place] [address] Barry Reyes MD [address] [place] [address] [place] [address] documented as of this encounter Visit Diagnoses Not on filedocumented in this encounter Care Teams Security Control Room Officer Relationship Specialty Start Date End Date Sahra Son MD [address] [address] PCP - General Internal Medicine 10/28/22 documented as of this encounter
--- OUTSIDE RECORDS SUMMARY | 2024-09-11 09:55 | XMS_ITS | Encounter Summary ---
Author Organization [facility] Address [address] [place] [address] Phone Care Team Providers Care Transportation Worker Name Role Phone Sahra Son MD Primary Care Provider + Encounter Details Date Type Department Care Team ([facility] Contact Info) Description 03/11/2023 Documentation Only [facility] [address] [place] [address] India Davalos [address] [place] [address] Social History Tobacco Use Types [...] Upcoming Encounters Date Type Department Care Team ([facility] Contact Info) Description 11/23/2024 12:50 PM EDT Office Visit [facility] [address] [place] [address] Barry Reyes MD [address] [place] [address] [place] [address] documented as of this encounter Visit Diagnoses Not on filedocumented in this encounter Care Teams Transportation Worker Relationship Specialty Start Date End Date Sahra Sno MD [address] [address] PCP - General Internal Medicine 10/28/22 documented as of this encounter
--- OUTSIDE RECORDS SUMMARY | 2024-09-11 09:55 | XMS_ITS | Encounter Summary ---
Author Organization [facility] Address [address] [place] [address] Phone Care Team Providers Care Marriage Therapist Name Role Phone Sahra Son MD Primary Care Provider + Encounter Details Date Type Department Care Team ([facility] Contact Info) Description 11/11/2023 Documentation Only [facility] [address] [place] [address] India Davalos [address] [place] [address] Social History Tobacco Use Types [...] [facility] [address] [place] [address] Barry Reyes MD [address] [place] [address] [place] [address] documented as of this encounter Visit Diagnoses Not on filedocumented in this encounter Care Teams Marriage Therapist Relationship Specialty Start Date End Date Sahra Son MD [address] [address] PCP - General Internal Medicine 10/28/22 documented as of this encounter
--- OUTSIDE RECORDS SUMMARY | 2024-09-11 09:55 | XMS_ITS | Encounter Summary ---
Author Organization [facility] Address [address] [place] [address] Phone Care Team Providers Care Roll Contour Grinder Name Role Phone Sahra Son MD Primary Care Provider + Encounter Details Date Type Department Care Team (Late st Contact Info) Description 07/07/2024 Orders Only [facility] [address] [place] [address] India Davalos [address] [place] [address] Anemia in chronic kidney disease; [...] Visit [facility] [address] [place] [address] Barry Reyes MD [address] [facility] [place] [address] documented as of this encounter Visit Diagnoses Diagnosis Anemia in chronic kidney disease Other iron deficiency anemia Chronic kidney disease, stage 2 (mild) documented in this encounter Care Teams Roll Contour Grinder Relationship Specialty Start Date End Date Sahra Son MD [facility] [place] [address] PCP - General Internal Medicine 10/28/22 documented as of this encounter
--- OUTSIDE RECORDS SUMMARY | 2024-09-11 09:55 | XMS_ITS | Encounter Summary ---
Author Organization [facility] Address [address] [place] [address] Phone Care Team Providers Care Pool Coordinator Name Role Phone Sahra Son MD Primary Care Provider + Encounter Details Date Type Department Care Team ([facility] Contact Info) Description 11/11/2023 Documentation Only [facility] [address] [address] India Davalos [address] [place] [address] Social History Tobacco Use Types [...] [facility] [address] [place] [address] Barry Reyes MD [address] [place] [address] [place] [address] documented as of this encounter Visit Diagnoses Not on filedocumented in this encounter Care Teams Pool Coordinator Relationship Specialty Start Date End Date Sahra Son MD [address] [address] PCP - General Internal Medicine 10/28/22 documented as of this encounter
--- OUTSIDE RECORDS SUMMARY | 2024-09-11 09:55 | XMS_ITS | Encounter Summary ---
Author Organization [facility] Address [address] [place] [address] Phone Care Team Providers Care Personal Banker Name Role Phone Sahra Son MD Primary Care Provider + Encounter Details Date Type Department Care Team ([facility] Contact Info) Description 11/19/2023 Documentation Only [facility] [address] [place] [address] India Davalos [address] [place] [address] Social History Tobacco Use Types [...] [facility] [address] [place] [address] Barry Reyes MD [address] [place] [address] [place] [address] documented as of this encounter Visit Diagnoses Not on filedocumented in this encounter Care Teams Personal Banker Relationship Specialty Start Date End Date Sahra Son MD [address] [address] PCP - General Internal Medicine 10/28/22 documented as of this encounter
--- OUTSIDE RECORDS SUMMARY | 2024-09-11 09:55 | XMS_ITS | Encounter Summary ---
Author Organization [facility] Address [address] [place] [address] Phone Care Team Providers Care Plant Tender Name Role Phone Sahra Son MD Primary Care Provider + Encounter Details Date Type Department [facility] Description 11/21/2021 Documentation Only [facility] [address] [place] [address] India Davalos [address] [place] [address] Social History Tobacco Use Types [...] [facility] [address] [place] [address] Barry Reyes MD [address] [place] [address] [place] [address] documented as of this encounter Visit Diagnoses Not on filedocumented in this encounter Care Teams Plant Tender Relationship Specialty Start Date End Date Sahra Son MD [address] [address] PCP - General Internal Medicine 10/28/22 documented as of this encounter
--- OUTSIDE RECORDS SUMMARY | 2024-09-11 09:55 | XMS_ITS | Encounter Summary ---
Author Organization [facility] Address [address] [place] [address] Phone Care Team Providers Care Head Operator Name Role Phone Sahra Son MD Primary Care Provider + Encounter Details Date Type Department Care Team ([facility] Contact Info) Description 06/09/2023 Documentation Only [facility] Of [address] [place] [address] India Davalos [address] [place] [address] Social History Tobacco Use Types [...] [facility] [address] [place] [address] Barry Reyes MD [address] [place] [address] [place] [address] documented as of this encounter Visit Diagnoses Not on filedocumented in this encounter Care Teams Head Operator Relationship Specialty Start Date End Date Sahra Son MD [address] [address] PCP - General Internal Medicine 10/28/22 documented as of this encounter
--- OUTSIDE RECORDS SUMMARY | 2024-09-11 09:55 | XMS_ITS | Encounter Summary ---
Author Organization [facility] Address [address] [place] [address] Phone Care Team Providers Care Double End Chucking Machine Operator Name Role Phone Sahra Son MD Primary Care Provider + Encounter Details Date Type Department Care Team ([facility] Contact Info) Description 11/05/2023 Documentation Only [facility] [address] [place] [address] India Davalos [address] [place] [address] Social History Tobacco Use Types [...] [facility] [address] [place] [address] Barry Reyes MD [address] [place] [address] [place] [address] documented as of this encounter Visit Diagnoses Not on filedocumented in this encounter Care Teams Double End Chucking Machine Operator Relationship Specialty Start Date End Date Sahra Son MD [address] [address] PCP - General Internal Medicine 10/28/22 documented as of this encounter
--- OUTSIDE RECORDS SUMMARY | 2024-09-11 09:55 | XMS_ITS | Encounter Summary ---
Author Organization [facility] Address [address] [place] [address] Phone Care Team Providers Care Last Picker Name Role Phone Sahra Son MD Primary Care Provider + Encounter Details Date Type Department Care Team (Late st Contact Info) Description 06/09/2024 Orders Only [facility] [address] [place] [address] India Davalos [address] [place] [address] Anemia in chronic kidney disease; [...] Of [facility] [address] [place] [address] Barry Reyes MD [address] [facility] [place] [address] documented as of this encounter Visit Diagnoses Diagnosis Anemia in chronic kidney disease Other iron deficiency anemia Chronic kidney disease, stage 2 (mild) documented in this encounter Care Teams Last Picker Relationship Specialty Start Date End Date Sahra Son MD [facility] [place] [address] PCP - General Internal Medicine 10/28/22 documented as of this encounter
--- OUTSIDE RECORDS SUMMARY | 2024-09-11 09:55 | XMS_ITS | Encounter Summary ---
Author Organization [facility] Address [address] [place] [address] Phone Care Team Providers Care Phlebotomist Associate Name Role Phone Sahra Son MD Primary Care Provider + Encounter Details Date Type Department Care Team (Late Contact Info) Description 06/30/2020 Orders Only [facility] [address] [place] [address] Carol Whelan [address] [place] [address] Iron deficiency anemia, not otherwise [...] [facility] [address] [place] [address] Barry Reyes MD [address] [facility] [place] [address] documented as of this encounter Visit Diagnoses Diagnosis Iron deficiency anemia, not otherwise specified Chronic kidney disease, Stage II (mild) documented in this encounter Care Teams Phlebotomist Associate Relationship Specialty Start Date End Date Sahra Son MD [address] [place] [address] PCP - General Internal Medicine 10/28/22 documented as of this encounter
--- OUTSIDE RECORDS SUMMARY | 2024-09-11 09:55 | XMS_ITS | Encounter Summary ---
Author Organization [facility] Address [address] [place] [address] Phone Care Team Providers Care Bundle Clerk Name Role Phone Sahra Son MD Primary Care Provider + Encounter Details Date Type Department Care Team ([facility] Contact Info) Description 08/11/2022 Documentation Only [facility] Of [address] [place] [address] India Davalos [address] [place] [address] Social History Tobacco Use [...] [facility] [address] [place] [address] Barry Reyes MD [address] [place] [address] [place] [address] documented as of this encounter Visit Diagnoses Not on filedocumented in this encounter Care Teams Bundle Clerk Relationship Specialty Start Date End Date Sahra Son MD [address] [address] PCP - General Internal Medicine 10/28/22 documented as of this encounter
--- OUTSIDE RECORDS SUMMARY | 2024-09-11 09:55 | XMS_ITS | Encounter Summary ---
Author Organization [facility] Address [address] [place] [address] Phone Care Team Providers Care Sash Sticker Name Role Phone Sahra Son MD Primary Care Provider + Encounter Details Date Type Department Care Team ([facility] Contact Info) Description 03/23/2024 Documentation Only [facility] Of [address] [place] [address] India Davalos [address] [place] [address] Social History Tobacco Use Types [...] [facility] [address] [place] [address] Barry Reyes MD [address] [place] [address] [place] [address] documented as of this encounter Visit Diagnoses Not on filedocumented in this encounter Care Teams Sash Sticker Relationship Specialty Start Date End Date Sahra Son MD [address] [address] PCP - General Internal Medicine 10/28/22 documented as of this encounter
--- OUTSIDE RECORDS SUMMARY | 2024-09-11 09:55 | XMS_ITS | Encounter Summary ---
Author Organization [facility] Address [address] [place] [address] Phone Care Team Providers Care Watch And Clock Repairer Name Role Phone Sahra Son MD Primary Care Provider + Encounter Details Date Type Department Care Team ([facility] Contact Info) Description 11/30/2023 Documentation Only [facility] [address] [place] [address] India Davalos [address] [place] [address] Social History Tobacco Use [...] [facility] [address] [place] [address] Barry Reyes MD [address] [place] [address] [place] [address] documented as of this encounter Visit Diagnoses Not on filedocumented in this encounter Care Teams Watch And Clock Repairer Relationship Specialty Start Date End Date Sahra Son MD [address] [address] PCP - General Internal Medicine 10/28/22 documented as of this encounter
--- OUTSIDE RECORDS SUMMARY | 2024-09-11 09:55 | XMS_ITS | Encounter Summary ---
Author Organization [facility] Address [address] [place] [address] Phone Care Team Providers Care Flag Decorator Name Role Phone Sahra Son MD Primary Care Provider + Encounter Details Date Type Department Care Team ([facility] Contact Info) Description 01/04/2024 Documentation Only [facility] Of [address] [place] [address] India Davalos [address] [place] [address] Social History Tobacco Use [...] [facility] [address] [place] [address] Barry Reyes MD [address] [place] [address] [place] [address] documented as of this encounter Visit Diagnoses Not on filedocumented in this encounter Care Teams Flag Decorator Relationship Specialty Start Date End Date Sahra Son MD [address] [address] PCP - General Internal Medicine 10/28/22 documented as of this encounter
--- OUTSIDE RECORDS SUMMARY | 2024-09-11 09:55 | XMS_ITS | Encounter Summary ---
Author Organization [facility] Address [address] [place] [address] Phone Care Team Providers Care Tub Mender Name Role Phone Sahra Son MD Primary Care Provider + Encounter Details Date Type Department Care Team ([facility] Contact Info) Description 08/11/2022 Documentation Only [facility] [address] [place] [address] India Davalos [address] [place] [address] Social History Tobacco Use Types [...] [facility] [address] [place] [address] Barry Reyes MD [address] [place] [address] [place] [address] documented as of this encounter Visit Diagnoses Not on filedocumented in this encounter Care Teams Tub Mender Relationship Specialty Start Date End Date Sahra Son MD [address] [address] PCP - General Internal Medicine 10/28/22 documented as of this encounter
--- OUTSIDE RECORDS SUMMARY | 2024-09-11 09:55 | XMS_ITS | Encounter Summary ---
Author Organization [facility] Address [address] [place] [address] Phone Care Team Providers Care Information Receptionist Name Role Phone Sahra Son MD Primary Care Provider + Encounter Details Date Type Department Care Team ([facility] Contact Info) Description 03/11/2023 Documentation Only [facility] [address] [place] [address] India Davalos [address] [place] [address] Social History Tobacco Use Types [...] [facility] [address] [place] [address] Barry Reyes MD [address] [place] [address] [place] [address] documented as of this encounter Visit Diagnoses Not on filedocumented in this encounter Care Teams Information Receptionist Relationship Specialty Start Date End Date Sahra Son MD [address] [address] PCP - General Internal Medicine 10/28/22 documented as of this encounter
--- OUTSIDE RECORDS SUMMARY | 2024-09-11 09:55 | XMS_ITS | Encounter Summary ---
Author Organization [facility] Address [address] [place] [address] Phone Care Team Providers Care Technician Submarine Cable Equipment Name Role Phone Sahra Son MD Primary Care Provider + Encounter Details Date Type Department Care Team ([facility] Contact Info) Description 11/17/2023 Documentation Only [facility] Of [address] [place] [address] India Davalos [address] [place] [address] Social History Tobacco Use Types [...] [facility] [address] [place] [address] Barry Reyes MD [address] [place] [address] [place] [address] documented as of this encounter Visit Diagnoses Not on filedocumented in this encounter Care Teams Technician Submarine Cable Equipment Relationship Specialty Start Date End Date Sahra Son MD [address] [address] PCP - General Internal Medicine 10/28/22 documented as of this encounter
--- OUTSIDE RECORDS SUMMARY | 2024-09-11 09:55 | XMS_ITS | Encounter Summary ---
Author Organization [facility] Address [address] [place] [address] Phone Care Team Providers Care Electric Sealing Machine Operator Name Role Phone Sahra Son MD Primary Care Provider + Encounter Details Date Type Department Care Team ([facility] Contact Info) Description 01/06/2022 Documentation Only [facility] [address] [place] [address] Juan Jose Li MD [address] [place] [address] [place] [address] Social History Tobacco Use Types [...] [facility] [address] [place] [address] Barry Reyes MD [address] [place] [address] [place] [address] documented as of this encounter Visit Diagnoses Not on filedocumented in this encounter Care Teams Electric Sealing Machine Operator Relationship Specialty Start Date End Date Sahra Son MD [address] [address] PCP - General Internal Medicine 10/28/22 documented as of this encounter
--- OUTSIDE RECORDS SUMMARY | 2024-09-11 09:55 | XMS_ITS | Encounter Summary ---
Author Organization [facility] Address [address] [place] [address] Phone Care Team Providers Care Applied Biology Professor Name Role Phone Sahra Son MD Primary Care Provider + Encounter Details Date Type Department Care Team ([facility] Contact Info) Description 11/11/2023 Documentation Only [facility] Of [address] [place] [address] India Davalos [address] [place] [address] Social History Tobacco Use Types [...] [facility] [address] [place] [address] Barry Reyes MD [address] [place] [address] [place] [address] documented as of this encounter Visit Diagnoses Not on filedocumented in this encounter Care Teams Applied Biology Professor Relationship Specialty Start Date End Date Sahra Son MD [address] [address] PCP - General Internal Medicine 10/28/22 documented as of this encounter
--- OUTSIDE RECORDS SUMMARY | 2024-09-11 09:55 | XMS_ITS | Encounter Summary ---
Author Organization [facility] Address [address] [place] [address] Phone Care Team Providers Care Mica Spreader Name Role Phone Sahra Son MD Primary Care Provider + Encounter Details Date Type Department Care Team (Late st Contact Info) Description 01/31/2024 Orders Only [facility] [address] [place] [address] Arlene Alston PA Chronic kidney [...] Visit [facility] [address] [place] [address] Barry Reyes MD [address] [facility] [place] [address] documented as of this encounter Visit Diagnoses Diagnosis Chronic kidney disease, stage 2 (mild) Essential (primary) hypertension Iron deficiency anemia, not otherwise specified Type 2 diabetes mellitus, not otherwise specified (HCC) Antiphospholipid syndrome (HCC) documented in this encounter Care Teams Mica Spreader Relationship Specialty Start Date End Date Sahra Son MD [address] [place] [address] PCP - General Internal Medicine 10/28/22 documented as of this encounter
--- OUTSIDE RECORDS SUMMARY | 2024-09-11 09:55 | XMS_ITS | Encounter Summary ---
Author Organization [facility] Address [address] [place] [address] Phone Care Team Providers Care Hadoop Application Developer Name Role Phone Sahra Son MD Primary Care Provider + Encounter Details Date Type Department Care Team (Late Contact Info) Description 02/04/2024 Orders Only [facility] [address] [place] [address] India Davalos [address] [place] [address] Chronic kidney disease, stage 2 [...] Transplant Services [facility] [address] [place] [address] Barry Reyes MD [address] [place] [address] [place] [address] documented as of this encounter [...] Glucose 169(H) 70 - 99 mg/dL [facility] BUN 16 8 - 27 mg/dL [facility] Creatinine 1.00 0.57 - 1.00 mg/dL [facility] eGFR CKD-EPI CR 2020 63 >59 mL/min/1.7 3 [facility] BUN/Creatinine Ratio 16 12 - 28 [facility] Sodium 138 134 - 144 mmol/L [facility] Potassium 4.8 3.5 - 5.2 mmol/L [facility] Chloride 100 96 - 106 mmol/L [facility] Bicarbonate (CO2) 22 20 - 29 mmol/L [facility] Calcium 9.1 8.7 - 10.3 mg/dL [facility] Albumin 4.1 3.9 - 4.9 g/dL [facility] Phosphorus 4.2 3.0 - 4.3 mg/dL [facility] Blood (Blood, Venous) 02/22/2024 8:29 AM EDT 02/22/2024 Barry Reyes MD LAB BLOOD ORDERABLES Final Re sult Performing Organization Address [facility]/ZIP Co de Phone Number [facility] [address] [place] [address] * Ferritin (02/22/2024 8:29 AM EDT) Ferritin 47 15 - 150 ng/mL [facility] Blood (Blood, Venous) 02/22/2024 8:29 AM EDT 02/22/2024 Barry Reyes MD LAB BLOOD ORDERABLES Final Re sult Performing Organization Address [facility] de Phone Number [facility] [address] [place] [address] * (ABNORMAL) Iron Panel (Fe, TIBC, TSAT) (02/22/2024 8:29 AM EDT) Iron 39 27 - 139 ug/dL [facility] TIBC 310 250 - 450 ug/dL [facility] UIBC 271 118 - 369 ug/dL [facility] Iron Saturation (TSat) 13(L) 15 - 55 % [facility] Blood (Blood, Venous) 02/22/2024 8:29 AM EDT 02/22/2024 Barry Reyes MD LAB BLOOD ORDERABLES Final Re sult Performing Organization Address City/[facility]/ZIP Co de Phone Number [facility] [address] [place] [address] * (ABNORMAL) CBC and Differential (02/22/2024 8:29 AM EDT) [facility] Signature WBC 5.9 3.4 - 10.8 x10E3/uL [facility] RBC 5.33(H) 3.77 - 5.28 x10E6/uL [facility] Hemoglobin 10.3(L) 11.1 - 15.9 g/dL [facility] Hematocrit 35.1 34.0 - 46.6 % [facility] MCV 66(L) 79 - 97 fL [facility] MCH 19.3(L) 26.6 - 33.0 pg [facility] MCHC 29.3(L) 31.5 - 35.7 g/dL [facility] RDW 19.3(H) 11.7 - 15.4 % [facility] Platelets 174 150 - 450 x10E3/uL [facility] Neutrophils Relative 71 Not Estab. % [facility] Lymphocytes Relative 21 Not Estab. % [facility] Monocytes 5 Not Estab. % [facility] Eosinophils Relative 1 Not Estab. % [facility] Basophils Relative 1 Not Estab. % [facility] Neutrophils Absolute 4.2 1.4 - 7.0 x10E3/uL [facility] Lymphocytes Absolute 1.3 0.7 - 3.1 x10E3/uL [facility] Monocytes Absolute 0.3 0.1 - 0.9 x10E3/uL [facility] Eosinophils Absolute 0.1 0.0 - 0.4 x10E3/uL [facility] Basophils Absolute 0.0 0.0 - 0.2 x10E3/uL [facility] Immature Granulocytes 1 Not Estab. % [facility] Immature Grans (Absolute) 0.0 0.0 - 0.1 x10E3/uL [facility] Blood (Blood, Venous) 02/22/2024 8:29 AM EDT 02/22/2024 us Barry Reyes MD LAB BLOOD ORDERABLES Final Re sult [facility] [address] [place] [address] documented in this encounter Visit Diagnoses Diagnosis Chronic kidney disease, stage 2 (mild) Anemia in chronic kidney disease Iron deficiency anemia, not otherwise specified documented in this encounter Care Teams Hadoop Application Developer Relationship Specialty Start Date End Date Sahra Son MD [address] [place] [address] PCP - General Internal Medicine 10/28/22 documented as of this encounter
--- OUTSIDE RECORDS SUMMARY | 2024-09-11 09:55 | XMS_ITS | Encounter Summary ---
Author Organization [facility] Address [address] [place] [address] Phone Care Team Providers Care Layout Worker Name Role Phone Sahra Son MD Primary Care Provider + Encounter Details Date Type Department Care Team ([facility] Contact Info) Description 11/11/2023 Documentation Only [facility] [address] [place] [address] India Davalos [address] [place] [address] Social History Tobacco Use Types [...] [facility] [address] [place] [address] Barry Reyes MD [address] [place] [address] [place] [address] documented as of this encounter Visit Diagnoses Not on filedocumented in this encounter Care Teams Layout Worker Relationship Specialty Start Date End Date Sahra Son MD [address] [address] PCP - General Internal Medicine 10/28/22 documented as of this encounter
--- OUTSIDE RECORDS SUMMARY | 2024-09-11 09:55 | XMS_ITS | Encounter Summary ---
Author Organization [facility] Address [address] [place] [address] Phone Care Team Providers Care Chief Accountant Name Role Phone Sahra Son MD Primary Care Provider + Encounter Details Date Type Department Care Team ([facility] Contact Info) Description 11/11/2023 Documentation Only [facility] Of [address] [place] [address] India Davalos [address] [place] [address] Social History Tobacco Use Types [...] [facility] [address] [place] [address] Barry Reyes MD [address] [place] [address] [place] [address] documented as of this encounter Visit Diagnoses Not on filedocumented in this encounter Care Teams Chief Accountant Relationship Specialty Start Date End Date Sahra Son MD [address] [address] PCP - General Internal Medicine 10/28/22 documented as of this encounter
--- OUTSIDE RECORDS SUMMARY | 2024-09-11 09:55 | XMS_ITS | Encounter Summary ---
Author Organization [facility] Address [address] [place] [address] Phone Care Team Providers Care Scientific Helper Name Role Phone Sahra Son MD Primary Care Provider + Encounter Details Date Type Department Care Team ([facility] Contact Info) Description 04/08/2022 Documentation Only [facility] Of [address] [place] [address] India Davalos [address] [place] [address] Social History Tobacco Use Types [...] [facility] Contact Info) Description 11/23/2024 12:50 PM EDT Office Visit [facility] [address] [place] [address] Barry Reyes MD [address] [place] [address] [place] [address] documented as of this encounter Visit Diagnoses Not on filedocumented in this encounter Care Teams Scientific Helper Relationship Specialty Start Date End Date Sahra Son MD [address] [address] PCP - General Internal Medicine 10/28/22 documented as of this encounter
--- OUTSIDE RECORDS SUMMARY | 2024-09-11 09:55 | XMS_ITS | Encounter Summary ---
Author Organization [facility] Address [address] [place] [address] Phone Care Team Providers Care Billboard Installer Name Role Phone Sahra Son MD Primary Care Provider + Encounter Details Date Type Department Care Team ([facility] Contact Info) Description 08/24/2024 Documentation Only [facility] Of [address] [place] [address] India Davalos [address] [place] [address] Social History Tobacco Use Types [...] [facility] Of [address] [place] [address] Barry Reyes MD [address] [place] [address] [place] [address] documented as of this encounter Visit Diagnoses Not on filedocumented in this encounter Care Teams Billboard Installer Relationship Specialty Start Date End Date Sahra Son MD [address] [address] PCP - General Internal Medicine 10/28/22 documented as of this encounter
--- OUTSIDE RECORDS SUMMARY | 2024-09-11 09:55 | XMS_ITS | Encounter Summary ---
Author Organization [facility] Address [address] [place] [address] Phone Care Team Providers Care Research Psychologist Name Role Phone Sahra Son MD Primary Care Provider + Encounter Details Date Type Department Care Team ([facility] Contact Info) Description 04/14/2022 Documentation Only [facility] [address] [place] [address] India Davalos [address] [place] [address] Social History Tobacco Use Types [...] Upcoming Encounters Date Type Department Care Team ([facility] Contact Info) Description 11/23/2024 12:50 PM EDT Office Visit [facility] [address] [place] [address] Barry Reyes MD [address] [place] [address] [place] [address] documented as of this encounter Visit Diagnoses Not on filedocumented in this encounter Care Teams Research Psychologist Relationship Specialty Start Date End Date Sahra Son MD [address] [address] PCP - General Internal Medicine 10/28/22 documented as of this encounter
--- OUTSIDE RECORDS SUMMARY | 2024-09-11 09:55 | XMS_ITS | Encounter Summary ---
Author Organization [facility] Address [address] [place] [address] Phone Care Team Providers Care Medical Csr Name Role Phone Sahra Son MD Primary Care Provider + Encounter Details Date Type Department Care Team ([facility] Contact Info) Description 08/25/2024 Documentation Only [facility] [address] [place] [address] India Davalos [address] [place] [address] Social History Tobacco Use Types [...] [facility]) Description 11/23/2024 12:50 PM EDT Office Visit [facility] [address] [place] [address] Barry Reyes MD [address] [place] [address] [place] [address] documented as of this encounter Visit Diagnoses Not on filedocumented in this encounter Care Teams Medical Csr Relationship Specialty Start Date End Date Sahra Son MD [address] [address] PCP - General Internal Medicine 10/28/22 documented as of this encounter
--- OUTSIDE RECORDS SUMMARY | 2024-09-11 09:55 | XMS_ITS | Encounter Summary ---
Author Organization [facility] Address [address] [place] [address] Phone Care Team Providers Care Health Services Coordinator Name Role Phone Sahra Son MD Primary Care Provider + Encounter Details Date Type Department Care Team (Late Contact Info) Description 05/17/2023 Orders Only [facility] [address] [place] [address] Arlene Alston PA Chronic kidney [...] [facility] [address] [place] [address] Barry Reyes MD [address] [place] [address] [place] [address] documented as of this encounter [...] (Fe, TIBC, TSAT) (06/08/2023 8:36 AM EST) [facility] Iron 49 (30-160) MCG/DL [facility] UIBC 246 (110-370) MCG/DL [facility] TIBC 295 (140-530) MCG/DL [facility] Iron Saturation (TSat) 17(L) (20-55) % [facility] Comment: Testing performed or reported by [facility], a Service of [address] [address] Luis A Bailey MD, Logistics Team Lead CLIA# [id number] Blood (Blood, Venous) 06/08/2023 8:36 AM EST 06/08/2023 8:39 AM EST Arlene CARTER LAB BLOOD ORDERABLES Final Re sult Performing Organization Address [facility] de Phone Number [facility] * Vitamin D 25 hydroxy (06/08/2023 8:36 AM EST) Pathologist [facility] Vitamin D, 25-Hydroxy 24.8 (20-50) NG/ML [facility] Comment: Testing performed or reported by [facility], a Service of [address] [address] Luis A Bailey MD, Logistics Team Lead CLIA# [id number] Blood (Blood, Venous) 06/08/2023 8:36 AM EST 06/08/2023 8:39 AM EST Arlene CARTER LAB BLOOD ORDERABLES Final Re sult Performing Organization Address [facility] de Phone Number [facility] * (ABNORMAL) Renal function panel (06/08/2023 8:36 AM EST) Glucose 166(H) (70-99) MG/DL [facility] BUN 19 (8-23) MG/DL [facility] Creatinine 1.0 (0.5-1.0) MG/DL [facility] Sodium 138 (133-145) MMOL/L [facility] Potassium 4.9 (3.6-5.2) MMOL/L [facility] Chloride 101 (98-107) MMOL/L [facility] Bicarbonate (CO2) 27 (22-29) MMOL/L [facility] Anion Gap 10 (4-17) [facility] Albumin 4.2 (3.4-4.8) GM/DL [facility] Calcium 9.1 (8.6-10.5) MG/DL [facility] Phosphorus, Serum 3.4 (2.5-4.5) MG/DL [facility] Est GFR Non 66 ML/MIN/1.7 3 M2 [facility] Comment: Creatinine based estimated glomerular filtration (eGFR) in adults is calculated using the National Kidney Foundation recommended 2020 CKD-EPI equation. Estimates GFR from serum creatinine, age and sex. Testing performed or reported by [facility], a Service of [address] [address] Luis A Bailey MD, Logistics Team Lead CLIA# [id number] Blood (Blood, Venous) 06/08/2023 8:36 AM EST 06/08/2023 8:39 AM EST Arlene CARTER LAB BLOOD ORDERABLES Final Re sult Performing Organization Address [facility] de Phone Number [facility] * Magnesium (06/08/2023 8:36 AM EST) Magnesium 2.1 (1.6-2.3) mg/dL [facility] Comment: Testing performed or reported by [facility], a Service of [facility], [address] [place] [address] Luis A Bailey MD, Logistics Team Lead CLIA# [id number] Blood (Blood, Venous) 06/08/2023 8:36 AM EST 06/08/2023 8:39 AM EST Arlene CARTER LAB BLOOD ORDERABLES Final Re sult Performing Organization Address [facility] de Phone Number [facility] * (ABNORMAL) Hemoglobin A1c (06/08/2023 8:36 AM EST) Hemoglobin A1C 7.2(H) (4.0-5.6) % [facility] Comment: MONITORING: In known diabetic patients, hemoglobin A1c targets should be discussed with health care provider. DIAGNOSTIC USE: ??The [place] Diabetes Association (ADA) and the World Health [...] Supplement 1 Testing performed or reported by [facility], a Service of [facility], [address] [place] [address] Luis A Bailey MD, Logistics Team Lead [facility]# [id number] Blood (Blood, Venous) 06/08/2023 8:36 AM EST 06/08/2023 8:38 AM EST us Arlene CARTER LAB BLOOD ORDERABLES Final Re sult [facility] * (ABNORMAL) CBC and differential (06/08/2023 8:36 AM EST) White Blood Cells 5.2 (4.0-11.0 ) K/MM3 [facility] RBC 5.08 (4.20-5.4 0) M/MM3 [facility] Hgb 10.1(L) (11.7-15. 5) GM/DL [facility] Hematocrit 32.9(L) (35.7-45. 8) % [facility] MCV 64.8(L) (80.0-100 .0) FL [facility] MCH 19.9(L) (27.0-34. 0) PG [facility] MCHC 30.7(L) (33.0-37. 0) g/dL [facility] Platelets 191 (150-460) K/MM3 [facility] RDW-SD 40.3 (<47.0) FL [facility] MPV NOT MEASURED (9.4-12.4 ) FL [facility] nRBC Count 0.0 #/100 WBC'S [facility] NRBC Absolute 0.0 K/MM3 [facility] Neutrophils Abs Auto 3.5 (1.3-7.0) K/MM3 [facility] Lymphocytes Relative 1.3 (0.8-3.1) K/MM3 [facility] Monocytes 0.3(L) (0.4-0.9) K/MM3 [facility] Eosinophils Relative 0.1 (0.0-0.4) K/MM3 [facility] Basophil ABS 0.0 (0.0-0.1) K/MM3 [facility] Granulocytes Absolute 0.0 K/MM3 [facility] Neutrophils % Auto 67.3 (44-76) % [facility] Lymphs 24.0 (15-43) % [facility] Monocytes Absolute 5.8 (4.5-10.5 ) % [facility] Eosinophils 1.7 (0-6) % [facility] Basophils Relative 0.8 (0-2) % [facility] Immature Granulocytes 0.4 % [facility] Comment: Testing performed or reported by [facility], a Service of [facility], [address] [place] [address] Luis A Bailey MD, Logistics Team Lead [facility]# [id number] Blood (Blood, Venous) 06/08/2023 8:36 AM EST 06/08/2023 8:38 AM EST Arlene CARTER LAB BLOOD ORDERABLES Final Re sult [facility] documented in this encounter Visit Diagnoses Diagnosis Chronic kidney disease, stage 2 (mild) Essential (primary) hypertension Anemia in chronic kidney disease Antiphospholipid syndrome (HCC) Type 2 diabetes mellitus, not otherwise specified (HCC) Bleeding hemorrhoids documented in this encounter Care Teams Health Services Coordinator Relationship Specialty Start Date End Date Sahra Son MD [address] [address] PCP - General Internal Medicine 10/28/22 documented as of this encounter
--- OUTSIDE RECORDS SUMMARY | 2024-09-11 09:55 | XMS_ITS | Encounter Summary ---
Author Organization [facility] Address [address] [place] [address] Phone Care Team Providers Care Railroad Dining Car Steward/Stewardess Name Role Phone Sahra Son MD Primary Care Provider + Encounter Details Date Type Department Care Team (Late Contact Info) Description 08/18/2024 Orders Only [facility] [address] [place] [address] India Davalos [address] [place] [address] Chronic kidney disease, stage 2 [...] Of [facility] [address] [place] [address] Barry Reyes MD [address] [place] [address] [place] [address] documented as of this encounter Visit Diagnoses Diagnosis Chronic kidney disease, stage 2 (mild) Anemia in chronic kidney disease Iron deficiency anemia, not otherwise specified documented in this encounter Care Teams Railroad Dining Car Steward/Stewardess Relationship Specialty Start Date End Date Sahra Son MD [facility] [place] [address] PCP - General Internal Medicine 10/28/22 documented as of this encounter
--- OUTSIDE RECORDS SUMMARY | 2024-09-11 09:56 | XMS_ITS | Encounter Summary ---
Author Organization [facility] Address [address] [place] [address] Phone Care Team Providers Care Oliving Machine Operator Name Role Phone Sahra Son MD Primary Care Provider + Encounter Details Date Type Department Care Team ([facility] Contact Info) Description 07/03/2021 Documentation Only [facility] [address] [place] [address] Juan Jose Li MD [address] [place] [address] [place] [address] Social History Tobacco Use Types [...] [facility] [address] [place] [address] Barry Reyes MD [address] [place] [address] [place] [address] documented as of this encounter Visit Diagnoses Not on filedocumented in this encounter Care Teams Oliving Machine Operator Relationship Specialty Start Date End Date Sahra Son MD [address] [address] PCP - General Internal Medicine 10/28/22 documented as of this encounter
--- OUTSIDE RECORDS SUMMARY | 2024-09-11 09:56 | XMS_ITS | Encounter Summary ---
Author Organization [facility] Address [address] [place] [address] Phone Care Team Providers Care Advertising Columnist Name Role Phone Sahra Son MD Primary Care Provider + Encounter Details Date Type Department Care Team ([facility] Contact Info) Description 12/24/2022 Documentation Only [facility] [address] [place] [address] Carol Whelan [address] [place] [address] Social History Tobacco Use Types [...] Visit [facility] [address] [place] [address] Barry Reyes MD [address] [facility] [place] [address] documented as of this encounter Visit Diagnoses Not on filedocumented in this encounter Care Teams Advertising Columnist Relationship Specialty Start Date End Date Sahra Son MD [address] [address] PCP - General Internal Medicine 10/28/22 documented as of this encounter
--- OUTSIDE RECORDS SUMMARY | 2024-09-11 09:56 | XMS_ITS | Encounter Summary ---
Author Organization [facility] Address [address] [place] [address] Phone Care Team Providers Care Coverage Analyst Name Role Phone Sahra Son MD Primary Care Provider + Encounter Details Date Type Department Care Team (Late Contact Info) Description 04/28/2024 Orders Only [facility] [address] [place] [address] India Davalos [address] [place] [address] Chronic kidney disease, stage 2 [...] Visit [facility] [address] [place] [address] Barry Reyes MD [address] [place] [address] [place] [address] documented as of this [...] Glucose 153(H) 70 - 99 mg/dL [facility] BUN 17 8 - 27 mg/dL [facility] Creatinine 0.98 0.57 - 1.00 mg/dL [facility] eGFR CKD-EPI CR 2020 64 >59 mL/min/1.7 3 [facility] BUN/Creatinine Ratio 17 12 - 28 [facility] Sodium 142 134 - 144 mmol/L [facility] Potassium 5.0 3.5 - 5.2 mmol/L [facility] Chloride 106 96 - 106 mmol/L [facility] Bicarbonate (CO2) 23 20 - 29 mmol/L [facility] Calcium 8.9 8.7 - 10.3 mg/dL [facility] Albumin 3.9 3.9 - 4.9 g/dL [facility] Phosphorus 3.9 3.0 - 4.3 mg/dL [facility] Blood (Blood, Venous) 05/05/2024 9:18 AM EST 05/05/2024 Barry Reyes MD LAB BLOOD ORDERABLES Final Re sult Performing Organization Address City/[facility]/ZIP Co de Phone Number [facility] [address] [place] [address] * (ABNORMAL) Ferritin (05/05/2024 9:18 AM EST) Ferritin 282(H) 15 - 150 ng/mL [facility] Blood (Blood, Venous) 05/05/2024 9:18 AM EST 05/05/2024 Barry Reyes MD LAB BLOOD ORDERABLES Final Re sult Performing Organization Address [facility] Co de Phone Number [facility] [address] [place] [address] * Iron Panel (Fe, TIBC, TSAT) (05/05/2024 9:18 AM EST) TIBC 277 250 - 450 ug/dL [facility] UIBC 210 118 - 369 ug/dL [facility] Iron 67 27 - 139 ug/dL [facility] Iron Saturation (TSat) 24 15 - 55 % [facility] Blood (Blood, Venous) 05/05/2024 9:18 AM EST 05/05/2024 Barry Reyes MD LAB BLOOD ORDERABLES Final Re sult Performing Organization Address City/[facility]/ZIP Co de Phone Number [facility] [address] [place] [address] * (ABNORMAL) CBC and Differential (05/05/2024 9:18 AM EST) [facility] Signature WBC 5.6 3.4 - 10.8 x10E3/uL [facility] RBC 5.33(H) 3.77 - 5.28 x10E6/uL [facility] Hemoglobin 10.2(L) 11.1 - 15.9 g/dL [facility] Hematocrit 35.0 34.0 - 46.6 % [facility] MCV 66(L) 79 - 97 fL [facility] MCH 19.1(L) 26.6 - 33.0 pg [facility] MCHC 29.1(L) 31.5 - 35.7 g/dL [facility] RDW 20.1(H) 11.7 - 15.4 % [facility] Platelets 163 150 - 450 x10E3/uL [facility] Neutrophils Relative 64 Not Estab. % [facility] Lymphocytes Relative 26 Not Estab. % [facility] Monocytes 6 Not Estab. % [facility] Eosinophils Relative 3 Not Estab. % [facility] Basophils Relative 1 Not Estab. % [facility] Neutrophils Absolute 3.6 1.4 - 7.0 x10E3/uL [facility] Lymphocytes Absolute 1.5 0.7 - 3.1 x10E3/uL [facility] Monocytes Absolute 0.3 0.1 - 0.9 x10E3/uL [facility] Eosinophils Absolute 0.2 0.0 - 0.4 x10E3/uL [facility] Basophils Absolute 0.0 0.0 - 0.2 x10E3/uL [facility] Immature Granulocytes 0 Not Estab. % [facility] Immature Grans (Absolute) 0.0 0.0 - 0.1 x10E3/uL [facility] Blood (Blood, Venous) 05/05/2024 9:18 AM EST 05/05/2024 us Barry Reyes MD LAB BLOOD ORDERABLES Final Re sult [facility] [address] [place] [address] documented in this encounter Visit Diagnoses Diagnosis Chronic kidney disease, stage 2 (mild) Anemia in chronic kidney disease Iron deficiency anemia, not otherwise specified documented in this encounter Care Teams Coverage Analyst Relationship Specialty [place] [address] [place] [address] PCP - General Internal Medicine 10/28/22 documented as of this encounter
--- OUTSIDE RECORDS SUMMARY | 2024-09-11 09:56 | XMS_ITS | Encounter Summary ---
Author Organization [facility] Address [address] [place] [address] Care Team Providers Care Home Organizer Name Role Phone Vinnie Santizo Primary Care Provider Sahra Keith MD Primary Care Provider Paula Marko Ferreira MD Unavailable [phone] Encounter Details Date Type Department Care Team Description 11/10/2017 [facility] Medical Records [address] [place] [address] Vish Cruz MD Social History Tobacco Use [...] filedocumented in this encounter Care Teams Home Organizer Relationship Specialty Start Date End Date Vinnie Santizo PCP - General Internal Medicine 03/30/17 08/30/22 Sahra Son MD PCP - General Internal Medicine 08/31/22 Marko Spaulding MD Specialist Cardiology 09/23/22 documented as of this encounter
--- OUTSIDE RECORDS SUMMARY | 2024-09-11 09:56 | XMS_ITS | Clinical Summary ---
Author Organization [facility] Address [address] [place] [address] Care Team Providers Care Clamp Remover Name Role Phone Sahra Son MD Primary Care Provider + Surgical History Surgery Date Site/Laterality Comments OTHER SURGICAL HISTORY 1975 PROCEDURE: [place] ECTOPIC ABDOMINAL/VAGINAL APPR PARTIAL HYSTERECTOMY PROCEDURE: [place] SUPRACERVICAL ABDL HYSTER W/WO RMVL TUBE OVARY CHOLECYSTECTOMY 1982 PROCEDURE: HISTORICAL CHOLECYSTECTOMY CARPAL TUNNEL RELEASE 11/21/2014 Left PROCEDURE: HISTORICAL CARPAL TUNNEL REL BOWEL RESECTION 03/2004 PROCEDURE: HISTORICAL BOWEL RESECTION; COMMENT: bowel obstruction Medical History Medical History Date Comments Diverticulosis DX:Diverticulosi s CHF (congestive heart failur e) ([facility] V24, [facility] V28) DX:CHF (congestive heart fa ilure) ([facility]) COPD (chronic obstructive pu lmonary disease) ([facility] V24, [facility] V28) DX:COPD (chronic o bstructive pulmonary disease) ([facility]) Osteoporosis DX:Osteoporosis Fibromyalgia DX:Fibromyalgia Myelofibrosis ([facility] V24, [facility] V28) DX:Myelofibrosis ([facility]); COMM ENT: diagnosed 8 years ago, follows with DR layne Meningioma ([facility] V24, [facility] V28) DX:Meningioma ([facility]) Asthma DX:Asthma Gout DX:Gout Seizures ([facility] V24, [facility] V28) DX:Seizures ([facility]) Lupus DX:Lupus Depression DX:Depression; C OMMENT: follows at [facility] net at [place] [address] Gann Hypercoagulable state ([facility] V24) DX:Hypercoagulable state ([facility]); COMMENT: on coumadin Neurogenic bladder DX:Neurogenic bladder; COMMENT: flowers dependent Supplemental oxygen dependent DX :Supplemental oxygen dependent Lung nodule 03/22/2017 DX:Lung nodule ALESSANDRA (obstructive sleep apnea) 03/22/2017 DX :ALESSANDRA (obstructive sleep apnea) GERD (gastroesophageal reflux disease) 03/22/2017 DX:GERD (gastroesophageal reflux disease) Anxiety 03/22/2017 DX:Anxiety Dementia ([facility] V24, [facility] V28) 03/22/2017 DX:Dementia ([facility]) Schizophrenia ([facility] V24, [facility] V28) 03/22/2017 DX:Schizophrenia ([facility]) Glaucoma 03/22/2017 DX:Glaucoma History of stroke DX:History of stroke History of deep vein thrombosis DX:History of deep vein thrombosis Coronary artery disease DX:Coron christine artery disease; COMMENT: [place] Diabetes mellitus type 2 wit h neurological manifestations ([facility] V24, [facility] V28) DX:Diabetes mellitus type 2 with neurological manifestations ([facility]) Leukemia ([facility] V24, [facility] V28) 09/02/2017 DX:Leukemia ([facility]) MDS (myelodysplastic syndrom e) ([facility] V24, [facility] V28) 09/02/2017 DX:MDS (myelodysplastic syn drome) ([facility]) Hyperthyroidism 09/02/2017 DX:Hyperthyroidi sm History of TIA [...] age to complete this topic Care Teams Clamp Remover Relationship Specialty Start Date End Date Sahra Son MD [facility] [address] [place] [place] [address] PCP - General 08/31/22
--- OUTSIDE RECORDS SUMMARY | 2024-09-11 09:56 | XMS_ITS | Encounter Summary ---
Author Organization [facility] [employer] [facility] Address [address] [place] [address] Care Team Providers Care Allergy Nurse Name Role Phone Tammie, Pcp Primary Care Provider Vinnie Rodriguez Primary Care Provider Sahra Keith MD Primary Care Provider Paula Marko Ferreira MD Unavailable [phone] Encounter Details Date Type Department Care Team Description 02/24/2017 [facility] Medical Records [address] [place] [address] Social History Tobacco Use Types Packs/Day Years [...] on filedocumented in this encounter Care Teams Allergy Nurse Relationship Specialty Start Date End Date Tammie, Pcp PCP - General Internal Medicine 07/24/13 03/29/17 Vinnie Santizo PCP - General Internal Medicine 03/30/17 08/30/22 Sahra Son MD PCP - General Internal Medicine 08/31/22 Marko Spaulding MD Specialist Cardiology 09/23/22 documented as of this encounter
--- OUTSIDE RECORDS SUMMARY | 2024-09-11 09:56 | XMS_ITS | Encounter Summary ---
Author Organization [facility] Address [address] [place] [address] Phone Care Team Providers Care Cryptographic Technician Name Role Phone Sahra Son MD Primary Care Provider + Encounter Details Date Type Department Care Team ([facility] Contact Info) Description 08/05/2023 Documentation Only [facility] [address] [place] [address] India Davalos [address] [place] [address] Social History Tobacco Use Types [...] [facility] [address] [place] [address] Barry Reyes MD [address] [place] [address] [place] [address] documented as of this encounter Visit Diagnoses Not on filedocumented in this encounter Care Teams Cryptographic Technician Relationship Specialty Start Date End Date Sahra Son MD [address] [address] PCP - General Internal Medicine 10/28/22 documented as of this encounter
--- OUTSIDE RECORDS SUMMARY | 2024-09-11 09:56 | XMS_ITS | Encounter Summary ---
Author Organization [facility] Address [address] [place] [address] Phone Care Team Providers Care System Operator Name Role Phone Sahra Son MD Primary Care Provider + Encounter Details Date Type Department Care Team ([facility] Contact Info) Description 08/09/2023 Documentation Only [facility] [address] [place] [address] India Davalos [address] [place], [place] [...] [facility] [address] [place] [address] Barry Reyes MD [address] [place] [address] [place] [address] documented as of this encounter Visit Diagnoses Not on filedocumented in this encounter Care Teams System Operator Relationship Specialty Start Date End Date Sahra Son MD [address] [address] PCP - General Internal Medicine 10/28/22 documented as of this encounter
--- OUTSIDE RECORDS SUMMARY | 2024-09-11 09:56 | XMS_ITS | Encounter Summary ---
Author Organization [facility] Address [address] [place] [address] Care Team Providers Care Fold Skiver Name Role Phone Vinnie Santizo Primary Care Provider Sahra Keith MD Primary Care Provider Marko Fernandez MD Unavailable [phone] Encounter Details Date Type Department Care Team Description 11/23/2018 SCAN Medical Records [address] [place] [address] Arnoldo Eden PA-C Social History Tobacco Use [...] on filedocumented in this encounter Care Teams Fold Skiver Relationship Specialty Start Date End Date Vinnie Santizo PCP - General Internal Medicine 03/30/17 08/30/22 Sahra Son MD PCP - General Internal Medicine 08/31/22 Marko Spaulding MD Specialist Cardiology 09/23/22 documented as of this encounter
--- OUTSIDE RECORDS SUMMARY | 2024-09-11 09:56 | XMS_ITS | Encounter Summary ---
Author Organization [facility] Address [address] [place] [address] Care Team Providers Care Quality Assurance Consultant Name Role Phone Vinnie Santizo Primary Care Provider Sahra Keith MD Primary Care Provider Marko Fernadnez MD Unavailable [phone] Encounter Details Date Type Department Care Team Description 07/30/2022 Molder Feeder Report Medical Records [address] [place] [address] Sahra Son MD Social History Tobacco Use [...] on filedocumented in this encounter Care Teams Quality Assurance Consultant Relationship Specialty Start Date End Date Vinnie Santizo PCP - General Internal Medicine 03/30/17 08/30/22 Sahra Son MD PCP - General Internal Medicine 08/31/22 Marko Spaulding MD Specialist Cardiology 09/23/22 documented as of this encounter
--- OUTSIDE RECORDS SUMMARY | 2024-09-11 09:56 | XMS_ITS | Encounter Summary ---
Author Organization [facility] Address [address] [place] [address] Phone Care Team Providers Care National Sales Director Name Role Phone Sahra Son MD Primary Care Provider + Encounter Details Date Type Department Care Team ([facility] Contact Info) Description 01/29/2023 Documentation Only [facility] [address] [place] [address] India Davalos [address] [place] [address] Social History Tobacco Use Types [...] [facility] [address] [place] [address] Barry Reyes MD [address] [place] [address] [place] [address] documented as of this encounter Visit Diagnoses Not on filedocumented in this encounter Care Teams National Sales Director Relationship Specialty Start Date End Date Sahra Son MD [address] [address] PCP - General Internal Medicine 10/28/22 documented as of this encounter
--- OUTSIDE RECORDS SUMMARY | 2024-09-11 09:56 | XMS_ITS | Encounter Summary ---
Author Organization [facility] Address [address] [place] [address] Phone Care Team Providers Care Toy Parts Former Supervisor Name Role Phone Sahra Son MD Primary Care Provider + Encounter Details Date Type Department Care Team ([facility] Contact Info) Description 02/01/2023 Documentation Only [facility] [address] [place] [address] India Davalos [address] [place] [address] Social History Tobacco Use Types [...] [facility] [address] [place] [address] Barry Reyes MD [address] [place] [address] [place] [address] documented as of this encounter Visit Diagnoses Not on filedocumented in this encounter Care Teams Toy Parts Former Supervisor Relationship Specialty Start Date End Date Sahra Son MD [address] [address] PCP - General Internal Medicine 10/28/22 documented as of this encounter
--- OUTSIDE RECORDS SUMMARY | 2024-09-11 09:56 | XMS_ITS | Encounter Summary ---
Author Organization [facility] Address [address] [place] [address] Phone Care Team Providers Care Naval Special Warfare Medic Name Role Phone Sahra Son MD Primary Care Provider + Encounter Details Date Type Department Care Team (Late Contact Info) Description 05/26/2024 Orders Only [facility] [address] [place] [address] India Davalos [address] [place] [address] Chronic kidney disease, stage 2 [...] [facility] [address] [place] [address] Barry Reyes MD [address] [place] [address] [place] [address] documented as of this encounter [...] Glucose 168(H) 70 - 99 mg/dL [facility] BUN 17 8 - 27 mg/dL [facility] Creatinine 1.09(H) 0.57 - 1.00 mg/dL [facility] eGFR CKD-EPI CR 2020 57(L) >59 mL/min/1.7 3 [facility] BUN/Creatinine Ratio 16 12 - 28 [facility] Sodium 137 134 - 144 mmol/L [facility] Potassium 4.8 3.5 - 5.2 mmol/L [facility] Chloride 99 96 - 106 mmol/L [facility] Bicarbonate (CO2) 23 20 - 29 mmol/L [facility] Calcium 9.0 8.7 - 10.3 mg/dL [facility] Albumin 4.2 3.9 - 4.9 g/dL [facility] Phosphorus 4.4(H) 3.0 - 4.3 mg/dL [facility] Blood (Blood, Venous) 06/07/2024 11:53 AM EST 06/07/2024 Barry Reyes MD LAB BLOOD ORDERABLES Final Re sult Performing Organization Address City[facility]/ZIP Co de Phone Number [facility] [address] [place] [address] * Ferritin (06/07/2024 11:53 AM EST) Ferritin 102 15 - 150 ng/mL [facility] Blood (Blood, Venous) 06/07/2024 11:53 AM EST 06/07/2024 Barry Reyes MD LAB BLOOD ORDERABLES Final Re sult Performing Organization Address [facility] de Phone Number [facility] [address] [place] [address] * Iron Panel (Fe, TIBC, TSAT) (06/07/2024 11:53 AM EST) TIBC 262 250 - 450 ug/dL [facility] UIBC 205 118 - 369 ug/dL [facility] Iron 57 27 - 139 ug/dL [facility] Iron Saturation (TSat) 22 15 - 55 % [facility] Blood (Blood, Venous) 06/07/2024 11:53 AM EST 06/07/2024 Barry Reyes MD LAB BLOOD ORDERABLES Final Re sult Performing Organization Address [facility]/ZIP Co de Phone Number [facility] [address] [place] [address] * (ABNORMAL) CBC and Differential (06/07/2024 11:53 AM EST) [facility] WBC 5.5 3.4 - 10.8 x10E3/uL [facility] RBC 5.76(H) 3.77 - 5.28 x10E6/uL [facility] Hemoglobin 11.1 11.1 - 15.9 g/dL [facility] Hematocrit 38.4 34.0 - 46.6 % [facility] MCV 67(L) 79 - 97 fL [facility] MCH 19.3(L) 26.6 - 33.0 pg [facility] MCHC 28.9(L) 31.5 - 35.7 g/dL [facility] RDW 18.8(H) 11.7 - 15.4 % [facility] Platelets 162 150 - 450 x10E3/uL [facility] Neutrophils Relative 59 Not Estab. % [facility] Lymphocytes Relative 31 Not Estab. % [facility] Monocytes 6 Not Estab. % [facility] Eosinophils Relative 2 Not Estab. % [facility] Basophils Relative 1 Not Estab. % [facility] Neutrophils Absolute 3.3 1.4 - 7.0 x10E3/uL [facility] Lymphocytes Absolute 1.7 0.7 - 3.1 x10E3/uL [facility] Monocytes Absolute 0.3 0.1 - 0.9 x10E3/uL [facility] Eosinophils Absolute 0.1 0.0 - 0.4 x10E3/uL [facility] Basophils Absolute 0.0 0.0 - 0.2 x10E3/uL [facility] Immature Granulocytes 1 Not Estab. % [facility] Immature Grans (Absolute) 0.0 0.0 - 0.1 x10E3/uL [facility] Blood (Blood, Venous) 06/07/2024 11:53 AM EST 06/07/2024 us Barry Reyes MD LAB BLOOD ORDERABLES Final Re sult [facility] [address] [place] [address] documented in this encounter Visit Diagnoses Diagnosis Chronic kidney disease, stage 2 (mild) Anemia in chronic kidney disease Iron deficiency anemia, not otherwise specified documented in this encounter Care Teams Naval Special Warfare Medic Relationship Specialty [place] [address] [place] [address] PCP - General Internal Medicine 10/28/22 documented as of this encounter
--- OUTSIDE RECORDS SUMMARY | 2024-09-11 09:56 | XMS_ITS | Clinical Summary ---
Author Organization [facility] Address [address] [place] [address] Care Team Providers Care Carton Lettering Machine Operator Name Role Phone Geovani Natalie Carmelo ESPARZA Primary Care Provider [phone] Allergies Active Allergy Reactions Criticality Noted Date [...] 1 10/04/2016 Active ergocalciferol (VITAMIN D2) capsule 26580 units TK ONE C PO TWICE A [...] times a day. 0 04/27/2022 Active pancrelipase, Ajc-Cprl-Fcis, (Creon) [address] units CPEP TK ONE C PO TID [...] age to complete this topic Care Teams Carton Lettering Machine Operator Relationship Specialty Start Date End Date Natalie Olivo APRN [address] [place] [address] PCP - General Crusher Setter 04/30/22
--- OUTSIDE RECORDS SUMMARY | 2024-09-11 09:56 | XMS_ITS | Encounter Summary ---
Author Organization [facility] Address [address] [place] [address] Phone Care Team Providers Care Mounter Sousaphones Name Role Phone Sahra Son MD Primary Care Provider + Encounter Details Date Type Department Care Team ([facility] Contact Info) Description 10/07/2021 Documentation Only [facility] [address] [place] [address] India Davalos [address] [place] [address] Social History Tobacco Use Types [...] [facility] [address] [place] [address] Barry Reyes MD [address] [place] [address] [place] [address] documented as of this encounter Visit Diagnoses Not on filedocumented in this encounter Care Teams Mounter Sousaphones Relationship Specialty Start Date End Date Sahra Son MD [address] [address] PCP - General Internal Medicine 10/28/22 documented as of this encounter
--- OUTSIDE RECORDS SUMMARY | 2024-09-11 09:56 | XMS_ITS | Encounter Summary ---
Author Organization [facility] Address [address] [place] [address] Phone Care Team Providers Care Ramp Flight Attendant Name Role Phone Sahra Son MD Primary Care Provider + Encounter Details Date Type Department Care Team ([facility] Contact Info) Description 06/25/2021 Documentation Only [facility] [address] [place] [address] India Davalos [address] [place] [address] Social History Tobacco Use Types [...] [facility] [address] [place] [address] Barry Reyes MD [address] [place] [address] [place] [address] documented as of this encounter Visit Diagnoses Not on filedocumented in this encounter Care Teams Ramp Flight Attendant Relationship Specialty Start Date [place] [address] [address] PCP - General Internal Medicine 10/28/22 documented as of this encounter
--- OUTSIDE RECORDS SUMMARY | 2024-09-11 09:56 | XMS_ITS | Encounter Summary ---
Author Organization [facility] Address [address] [place] [address] Care Team Providers Care Stucco Applicator Name Role Phone Tammie, Pcp Primary Care Provider Vinnie Rodriguez Primary Care Provider Sahra Keith MD Primary Care Provider Paula Marko Ferreira MD Unavailable [phone] Encounter Details Date Type Department Care Team Description 11/13/2016 SCAN Medical Records [address] [place] [address] Aniceto Michelle Social History Tobacco Use Types [...] on filedocumented in this encounter Care Teams Stucco Applicator Relationship Specialty Start Date End Date Tammie, Pcp PCP - General Internal Medicine 07/24/13 03/29/17 Vinnie Santizo PCP - General Internal Medicine 03/30/17 08/30/22 Sahra Son MD PCP - General Internal Medicine 08/31/22 Marko Spaulding MD Specialist Cardiology 5/10/23 documented as of this encounter
--- OUTSIDE RECORDS SUMMARY | 2024-09-11 09:56 | XMS_ITS | Encounter Summary ---
Author Organization [facility] Address [address] [place] [address] Care Team Providers Care Brinell Tester Name Role Phone Vinnie Santizo Primary Care Provider Sahra Keith MD Primary Care Provider Marko Fernandez MD Unavailable [phone] Reason for Visit * Reason Comments E-prescribe Rx Request Encounter Details Date Type Department Care Team Description 10/24/2017 Refill Pulmonology - [place] [address] [facility] [address] [place] [address] Eneida Acuña NP E-prescribe Rx Request Social [...] NO Patients current insurance carrier is: [facility] / Plan: [facility] / Product Type: HMO [id number] documented in this encounter Plan of Treatment Not on file documented as of this encounter Visit Diagnoses Diagnosis Systemic lupus erythematosus, unspecified SLE type, unspecified organ involvement status (HCC) Pulmonary nodule Solitary pulmonary nodule Tobacco abuse Tobacco use disorder Asthma, unspecified asthma severity, unspecified whether complicated, unspecified whether persistent Multiple environmental allergies Cigarette smoker Tobacco use disorder documented in this encounter Care Teams Brinell Tester Relationship Specialty Start Date End Date Vinnie Santizo PCP - General Internal Medicine 03/30/17 08/30/22 Sahra Son MD PCP - General Internal Medicine 08/31/22 Marko Spaulding MD Specialist Cardiology 09/23/22 documented as of this encounter
--- OUTSIDE RECORDS SUMMARY | 2024-09-11 09:56 | XMS_ITS | Encounter Summary ---
Author Organization [facility] Address [address] [place] [address] Phone Care Team Providers Care Adjunct Psychology Faculty Member Name Role Phone Sahra Son MD Primary Care Provider + Encounter Details Date Type Department Care Team ([facility] Contact Info) Description 10/30/2022 Documentation Only [facility] [address] [place] [address] India Davalos [address] [place] [address] Social History Tobacco Use Types [...] Upcoming Encounters Date Type Department Care Team ([facility] Contact Info) Description 11/23/2024 12:50 PM EDT Office Visit [facility] [address] [place] [address] Barry Reyes MD [address] [place] [address] [place] [address] documented as of this encounter Visit Diagnoses Not on filedocumented in this encounter Care Teams Adjunct Psychology Faculty Member Relationship Specialty Start Date End Date Sahra Son MD [address] [address] PCP - General Internal Medicine 10/28/22 documented as of this encounter
--- OUTSIDE RECORDS SUMMARY | 2024-09-11 09:56 | XMS_ITS | Encounter Summary ---
Author Organization [facility] Address [address] [place] [address] Phone Care Team Providers Care Home Specialist Name Role Phone Sahra Son MD Primary Care Provider + Encounter Details Date Type Department Care Team (Late Contact Info) Description 03/31/2024 Orders Only [facility] [address] [facility] [address] [place] [address] India Davalos [address] [place] [address] Chronic kidney disease, stage 2 [...] [facility] [address] [facility] [place] [address] Barry Reyes MD [address] [facility] [place] [address] documented as of this encounter Visit Diagnoses Diagnosis Chronic kidney disease, stage 2 (mild) Anemia in chronic kidney disease Iron deficiency anemia, not otherwise specified documented in this encounter Care Teams Home Specialist Relationship Specialty Start Date End Date Sahra Son MD [facility] [place] [address] PCP - General Internal Medicine 10/28/22 documented as of this encounter
--- OUTSIDE RECORDS SUMMARY | 2024-09-11 09:56 | XMS_ITS | Encounter Summary ---
Author Organization [facility] Address [address] [place] [address] Care Team Providers Care Nurse Paralegal Name Role Phone Vinnie Santizo Primary Care Provider Sahra Keith MD Primary Care Provider Marko Fernandez MD Unavailable Reason for Visit * Reason Comments E-prescribe Rx Request Encounter Details Date Type Department Care Team Description 02/04/2018 Refill Pulmonology - [place] [address] [facility] [address] [place] [id number] Eneida Acuña NP E-prescribe Rx Request Social [...] NO Patients current insurance carrier is: Payor: [employer] MCR / Plan: [facility] / Product Type: HMO [id number] documented in this encounter Plan of Treatment [...] persistent documented in this encounter Care Teams Nurse Paralegal Relationship Specialty Start Date End Date Vinnie Santizo PCP - General Internal Medicine 03/30/17 08/30/22 Sahra Son MD PCP - General Internal Medicine 08/31/22 Marko Spaulding MD Specialist Cardiology 09/23/22 documented as of this encounter
--- OUTSIDE RECORDS SUMMARY | 2024-09-11 09:56 | XMS_ITS | Encounter Summary ---
Author Organization [facility] Address [address] [place] [address] Phone Care Team Providers Care Hemodialysis Technician Name Role Phone Sahra Son MD Primary Care Provider + Encounter Details Date Type Department Care Team ([facility] Contact Info) Description 08/27/2021 Documentation Only [facility] [address] [place] [address] India Davalos [address] [place] [address] Social History Tobacco Use Types [...] [facility] [address] [place] [address] Barry Reyes MD [address] [place] [address] [place] [address] documented as of this encounter Visit Diagnoses Not on filedocumented in this encounter Care Teams Hemodialysis Technician Relationship Specialty Start Date End Date Sahra Son MD [address] [address] PCP - General Internal Medicine 10/28/22 documented as of this encounter
--- OUTSIDE RECORDS SUMMARY | 2024-09-11 09:56 | XMS_ITS | Encounter Summary ---
Author Organization [facility] Address [address] [place] [address] Phone Care Team Providers Care Auto Parts Counter Person Name Role Phone Sahra Son MD Primary Care Provider + Encounter Details Date Type Department Care Team (Late Contact Info) Description 08/04/2024 Orders Only [facility] [address] [place] [address] India Davalos [address] [place] [address] Anemia in chronic kidney disease; [...] [facility] [address] [place] [address] Barry Reyes MD [address] [place] [address] [place] [address] documented as of this encounter [...] Glucose 168(H) 70 - 99 mg/dL [facility] BUN 15 8 - 27 mg/dL [facility] Creatinine 0.93 0.57 - 1.00 mg/dL [facility] eGFR CKD-EPI CR 2020 69 >59 mL/min/1.7 3 [facility] BUN/Creatinine Ratio 16 12 - 28 [facility] Sodium 139 134 - 144 mmol/L [facility] Chloride 103 96 - 106 mmol/L [facility] Bicarbonate (CO2) 24 20 - 29 mmol/L [facility] Calcium 8.8 8.7 - 10.3 mg/dL [facility] Phosphorus 3.8 3.0 - 4.3 mg/dL [facility] Albumin 4.1 3.9 - 4.9 g/dL [facility] Potassium 4.8 3.5 - 5.2 mmol/L [facility] Blood (Blood, Venous) 08/07/2024 8:15 AM EDT 08/07/2024 Barry Reyes MD LAB BLOOD ORDERABLES Final Re sult Performing Organization Address [facility]/ZIP Co de Phone Number [facility] [address] [place] [address] * Ferritin (08/07/2024 8:15 AM EDT) Ferritin 55 15 - 150 ng/mL [facility] Blood (Blood, Venous) 08/07/2024 8:15 AM EDT 08/07/2024 Barry Reyes MD LAB BLOOD ORDERABLES Final Re sult Performing Organization Address [facility] de Phone Number [facility] [address] [place] [address] * (ABNORMAL) Iron Panel (Fe, TIBC, TSAT) (08/07/2024 8:15 AM EDT) TIBC 290 250 - 450 ug/dL [facility] UIBC 251 118 - 369 ug/dL [facility] Iron 39 27 - 139 ug/dL [facility] Iron Saturation (TSat) 13(L) 15 - 55 % [facility] Blood (Blood, Venous) 08/07/2024 8:15 AM EDT 08/07/2024 Barry Reyes MD LAB BLOOD ORDERABLES Final Re sult Performing Organization Address [facility] Co de Phone Number [facility] [address] [place] [address] * (ABNORMAL) CBC and Differential (08/07/2024 8:15 AM EDT) [facility] WBC 5.6 3.4 - 10.8 x10E3/uL [facility] RBC 5.41(H) 3.77 - 5.28 x10E6/uL [facility] Hemoglobin 10.7(L) 11.1 - 15.9 g/dL [facility] Hematocrit 36.1 34.0 - 46.6 % [facility] MCV 67(L) 79 - 97 fL [facility] MCH 19.8(L) 26.6 - 33.0 pg [facility] MCHC 29.6(L) 31.5 - 35.7 g/dL [facility] RDW 18.9(H) 11.7 - 15.4 % [facility] Platelets 171 150 - 450 x10E3/uL [facility] Neutrophils Relative 65 Not Estab. % [facility] Lymphocytes Relative 25 Not Estab. % [facility] Monocytes 6 Not Estab. % [facility] Eosinophils Relative 3 Not Estab. % [facility] Basophils Relative 1 Not Estab. % [facility] Neutrophils Absolute 3.6 1.4 - 7.0 x10E3/uL [facility] Lymphocytes Absolute 1.4 0.7 - 3.1 x10E3/uL [facility] Monocytes Absolute 0.4 0.1 - 0.9 x10E3/uL [facility] Eosinophils Absolute 0.2 0.0 - 0.4 x10E3/uL [facility] Basophils Absolute 0.0 0.0 - 0.2 x10E3/uL [facility] Immature Granulocytes 0 Not Estab. % [facility] Immature Grans (Absolute) 0.0 0.0 - 0.1 x10E3/uL [facility] Blood (Blood, Venous) 08/07/2024 8:15 AM EDT 08/07/2024 us Barry Reyes MD LAB BLOOD ORDERABLES Final Re sult [facility] [address] [place] [address] documented in this encounter Visit Diagnoses Diagnosis Anemia in chronic kidney disease Other iron deficiency anemia Chronic kidney disease, stage 2 (mild) documented in this encounter Care Teams Auto Parts Counter Person Relationship Specialty Start Date End Date Sahra Son MD [address] [place] [address] PCP - General Internal Medicine 10/28/22 documented as of this encounter
--- OUTSIDE RECORDS SUMMARY | 2024-09-11 09:56 | XMS_ITS | Encounter Summary ---
Author Organization [facility] Address [address] [place] [address] Phone Care Team Providers Care Technician Terminal And Repeater Name Role Phone Sahra Son MD Primary Care Provider + Encounter Details Date Type Department Care Team ([facility] Contact Info) Description 01/29/2023 Documentation Only [facility] [address] [place] [address] India Davalos [address] [place] [address] Social History Tobacco Use [...] [facility] [address] [place] [address] Barry Reyes MD [address] [place] [address] [place] [address] documented as of this encounter Visit Diagnoses Not on filedocumented in this encounter Care Teams Technician Terminal And Repeater Relationship Specialty Start Date End Date Sahra Son MD [address] [address] PCP - General Internal Medicine 10/28/22 documented as of this encounter
--- OUTSIDE RECORDS SUMMARY | 2024-09-11 09:56 | XMS_ITS | Encounter Summary ---
Author Organization [facility] Address [address] [place] [address] Care Team Providers Care Regional Maintenance Manager Name Role Phone Obinna Mao MD Primary Care Provider Unavailable Tammie, Pcp Primary Care Provider Vinnie Rodriguez Primary Care Provider Sahra Keith MD Primary Care Provider Paula vailable Marko Spaulding MD Unavailable [phone] Encounter Details Date Type Department Care Team Description 12/28/2012 Release of Information Medical Records [address] [place] [id number] Abstract, Provider Social History Tobacco Use Types [...] on filedocumented in this encounter Care Teams Regional Maintenance Manager Relationship Specialty Start Date End Date Obinna Mao MD PCP - General Internal Medicine 12/13/1207/23 [facility], Pcp PCP - General Internal Medicine 07/24/13 03/29/17 Vinnie Santizo PCP - General Internal Medicine 03/30/17 08/30/22 Sahra Son MD PCP - General Internal Medicine 08/31/22 Marko Spaulding MD Specialist Cardiology 09/23/22 documented as of this encounter
--- OUTSIDE RECORDS SUMMARY | 2024-09-11 09:56 | XMS_ITS | Encounter Summary ---
Author Organization [facility] Address [address] [place] [address] Phone Care Team Providers Care Auriculotherapist Name Role Phone Sahra Son MD Primary Care Provider + Encounter Details Date Type Department Care Team ([facility] Contact Info) Description 10/26/2022 Documentation Only [facility] [address] [place] [address] India Davalos [address] [place] [address] Social History Tobacco Use Types [...] Team ([facility] Contact Info) Description 11/23/2024 12:50 PM EDT Office Visit [facility] [address] [place] [address] Barry Reyes MD [address] [place] [address] [place] [address] documented as of this encounter Visit Diagnoses Not on filedocumented in this encounter Care Teams Auriculotherapist Relationship Specialty Start Date End Date Sahra Son MD [address] [address] PCP - General Internal Medicine 10/28/22 documented as of this encounter
--- OUTSIDE RECORDS SUMMARY | 2024-09-11 09:56 | XMS_ITS | Encounter Summary ---
Author Organization [facility] Address [address] [place] [address] Care Team Providers Care Linseed Oil Boiler Name Role Phone Vinnie Santizo Primary Care Provider Obinna Merrill MD Primary Care Provider [facility] Tammie, Pcp Primary Care Provider Vinnie Rodriguez Primary Care Provider Sahra Keith MD Primary [facility] Marko Spaulding MD Unavailable [phone] Encounter Details Date Type Department Care Team Description 09/09/1998 [facility] [address] [address] Gwen Jean UNSPECIFIED CHEST PAIN Social History Tobacco Use Types Packs/Day Years Used Date Smoking Tobacco: Never Assessed Sex Assigned at Date Recorded Not on file documented as of this encounter Plan of Treatment Not on file documented as of this encounter Visit Diagnoses Diagnosis Chest pain, unspecified documented in this encounter Care Teams Linseed Oil Boiler Relationship Specialty Start Date End Date Vinnie Santizo PCP - General 08/04/03 12/12/12 Obinna Mao MD PCP - General Internal Medicine 12/13/1207/23 [facility], Pcp PCP - General Internal Medicine 07/24/13 03/29/17 Vinnie Santizo PCP - General Internal Medicine 03/30/17 08/30/22 Sahra Son MD PCP - General Internal Medicine 08/31/22 Marko Spaulding MD Specialist Cardiology 09/23/22 documented as of this encounter
--- OUTSIDE RECORDS SUMMARY | 2024-09-11 09:56 | XMS_ITS | Encounter Summary ---
Author Organization [facility] Address [address] [place] [address] Phone Care Team Providers Care Intellectual Property Legal Assistant Name Role Phone Sahra Son MD Primary Care Provider + Encounter Details Date Type Department Care Team ([facility] Contact Info) Description 07/16/2023 Documentation Only [facility] [address] [place] [address] India Davalos [address] [place] [address] Social History Tobacco Use Types [...] [facility] [address] [place] [address] Barry Reyes MD [address] [place] [address] [place] [address] documented as of this encounter Visit Diagnoses Not on filedocumented in this encounter Care Teams Intellectual Property Legal Assistant Relationship Specialty Start Date End Date Sahra Son MD [address] [address] PCP - General Internal Medicine 10/28/22 documented as of this encounter
--- OUTSIDE RECORDS SUMMARY | 2024-09-11 09:56 | XMS_ITS | Encounter Summary ---
Author Organization [facility] Address [address] [place] [address] Phone Care Team Providers Care Ob/Gyn Doctor Name Role Phone Sahra Son MD Primary Care Provider + Encounter Details Date Type Department Care Team ([facility] Contact Info) Description 04/05/2024 Documentation Only [facility] [address] [place] [address] India Davalos [address] [place] [address] Social History Tobacco Use Types [...] Upcoming Encounters Date Type Department Care Team ([facility] Contact Info) Description 11/23/2024 12:50 PM EDT Office Visit [facility] [address] [place] [address] Barry Reyes MD [address] [place] [address] [place] [address] documented as of this encounter Visit Diagnoses Not on filedocumented in this encounter Care Teams Ob/Gyn Doctor Relationship Specialty Start Date End Date Sahra Son MD [address] [address] PCP - General Internal Medicine 10/28/22 documented as of this encounter
--- OUTSIDE RECORDS SUMMARY | 2024-09-11 09:56 | XMS_ITS | Encounter Summary ---
Author Organization [facility] Address [address] [place] [address] Phone Care Team Providers Care Guzzler Builder Name Role Phone Sahra Son MD Primary Care Provider + Encounter Details Date Type Department Care Team ([facility] Contact Info) Description 07/16/2023 Documentation Only [facility] [address] [place] [address] India Davalos [address] [place] [address] Social History Tobacco Use Types [...] [facility] [address] [place] [address] Barry Reyes MD [address] [place] [address] [place] [address] documented as of this encounter Visit Diagnoses Not on filedocumented in this encounter Care Teams Guzzler Builder Relationship Specialty Start Date End Date Sahra Son MD [address] [address] PCP - General Internal Medicine 10/28/22 documented as of this encounter
--- OUTSIDE RECORDS SUMMARY | 2024-09-11 09:56 | XMS_ITS | Encounter Summary ---
Author Organization [facility] Address [address] [place] [address] Care Team Providers Care Fertilizer Mixer Name Role Phone Vinnie Santizo Primary Care Provider Sahra Keith MD Primary Care Provider Marko Fernandez MD Unavailable [phone] Encounter Details Date Type Department Care Team Description 07/24/2022 [facility] Medical Records [address] [place] [address] Social History Tobacco Use Types Packs/Day Years [...] on filedocumented in this encounter Care Teams Fertilizer Mixer Relationship Specialty Start Date End Date Vinnie Santizo PCP - General Internal Medicine 03/30/17 08/30/22 Sahra Son MD PCP - General Internal Medicine 08/31/22 Marko Spaulding MD Specialist Cardiology 09/23/22 documented as of this encounter
--- OUTSIDE RECORDS SUMMARY | 2024-09-11 09:56 | XMS_ITS | Encounter Summary ---
Author Organization [facility] Address [address] [place] [address] Phone Care Team Providers Care Sole Molder Name Role Phone Sahra Son MD Primary Care Provider + Encounter Details Date Type Department Care Team ([facility] Contact Info) Description 04/05/2024 Documentation Only [facility] [address] [place] [address] India Davalos [address] [place] [address] Social History Tobacco Use Types [...] Upcoming Encounters Date Type Department Care Team ([facility] Contact Info) Description 11/23/2024 12:50 PM EDT Office Visit [facility] [address] [place] [address] Barry Reyes MD [address] [place] [address] [place] [address] documented as of this encounter Visit Diagnoses Not on filedocumented in this encounter Care Teams Sole Molder Relationship Specialty Start Date End Date Sahra Son MD [address] [address] PCP - General Internal Medicine 10/28/22 documented as of this encounter
--- OUTSIDE RECORDS SUMMARY | 2024-09-11 09:56 | XMS_ITS | Encounter Summary ---
Author Organization [facility] Address [address] [place] [address] Phone Care Team Providers Care Cost Accounting Clerk Name Role Phone Sahra Son MD Primary Care Provider + Encounter Details Date Type Department Care Team (Late Contact Info) Description 09/01/2024 Orders Only [facility] [address] [place] [address] India Davalos [address] [place] [address] Anemia in chronic kidney disease; [...] Visit [facility] [address] [place] [address] Barry Reyes MD [address] [place] [address] [place] [address] documented as of this encounter Procedures Procedure Name Priority Date/Time Associated Diagnosis Comments IRON PANEL (FE, TIBC, TSAT) Routine 09/06/2024 8:15 AM EDT Anemia in chronic kidney disease Other iron deficiency anemia Chronic kidney disease, stage 2 (mild) CBC AND DIFFERENTIAL Routine 09/06/2024 8:15 AM EDT Anemia in chronic kidney disease Other iron deficiency anemia Chronic kidney disease, stage 2 (mild) FERRITIN Routine 09/06/2024 8:15 AM EDT Anemia in chronic kidney disease Other iron deficiency anemia Chronic kidney disease, stage 2 (mild) RENAL FUNCTION PANEL Routine 09/06/2024 8:15 AM EDT Anemia in chronic kidney disease Other iron deficiency anemia Chronic kidney disease, stage 2 (mild) documented in this encounter Results * (ABNORMAL) Renal Function Panel (09/06/2024 8:15 AM EDT) Glucose 233(H) 70 - 99 mg/dL [facility] BUN 15 8 - 27 mg/dL [facility] Creatinine 1.01(H) 0.57 - 1.00 mg/dL [facility] eGFR CKD-EPI CR 2020 62 >59 mL/min/1.7 3 [facility] BUN/Creatinine Ratio 15 12 - 28 [facility] Sodium 138 134 - 144 mmol/L [facility] Potassium 4.9 3.5 - 5.2 mmol/L [facility] Chloride 101 96 - 106 mmol/L [facility] Bicarbonate (CO2) 19(L) 20 - 29 mmol/L [facility] Calcium 9.1 8.7 - 10.3 mg/dL [facility] Albumin 4.2 3.9 - 4.9 g/dL [facility] Phosphorus 3.8 3.0 - 4.3 mg/dL [facility] Blood (Blood, Venous) 09/06/2024 8:15 AM EDT 09/06/2024 Barry Reyes MD LAB BLOOD ORDERABLES Final Re sult Performing Organization Address City/[facility]/ZIP Co de Phone Number [facility] [address] [place] [address] * Ferritin (09/06/2024 8:15 AM EDT) Ferritin 37 15 - 150 ng/mL [facility] Blood (Blood, Venous) 09/06/2024 8:15 AM EDT 09/06/2024 Barry Reyes MD LAB BLOOD ORDERABLES Final Re sult Performing Organization Address [facility] de Phone Number [facility] [address] [place] [address] * (ABNORMAL) Iron Panel (Fe, TIBC, TSAT) (09/06/2024 8:15 AM EDT) TIBC 323 250 - 450 ug/dL [facility] UIBC 286 118 - 369 ug/dL [facility] Iron 37 27 - 139 ug/dL [facility] Iron Saturation (TSat) 11(L) 15 - 55 % [facility] Blood (Blood, Venous) 09/06/2024 8:15 AM EDT 09/06/2024 Barry Reyes MD LAB BLOOD ORDERABLES Final Re sult Performing Organization Address City/[facility]/ZIP Co de Phone Number [facility] [address] [place] [address] * (ABNORMAL) CBC and Differential (09/06/2024 8:15 AM EDT) [facility] WBC 6.3 3.4 - 10.8 x10E3/uL [facility] RBC 5.35(H) 3.77 - 5.28 x10E6/uL [facility] Hemoglobin 10.6(L) 11.1 - 15.9 g/dL [facility] Hematocrit 35.8 34.0 - 46.6 % [facility] MCV 67(L) 79 - 97 fL [facility] MCH 19.8(L) 26.6 - 33.0 pg [facility] MCHC 29.6(L) 31.5 - 35.7 g/dL [facility] RDW 18.4(H) 11.7 - 15.4 % [facility] Platelets 190 150 - 450 x10E3/uL [facility] Neutrophils Relative 67 Not Estab. % [facility] Lymphocytes Relative 22 Not Estab. % [facility] Monocytes 6 Not Estab. % [facility] Eosinophils Relative 3 Not Estab. % [facility] Basophils Relative 1 Not Estab. % [facility] Neutrophils Absolute 4.3 1.4 - 7.0 x10E3/uL [facility] Lymphocytes Absolute 1.4 0.7 - 3.1 x10E3/uL [facility] Monocytes Absolute 0.4 0.1 - 0.9 x10E3/uL [facility] Eosinophils Absolute 0.2 0.0 - 0.4 x10E3/uL [facility] Basophils Absolute 0.1 0.0 - 0.2 x10E3/uL [facility] Immature Granulocytes 1 Not Estab. % [facility] Immature Grans (Absolute) 0.1 0.0 - 0.1 x10E3/uL [facility] Blood (Blood, Venous) 09/06/2024 8:15 AM EDT 09/06/2024 us Barry Reyes MD LAB BLOOD ORDERABLES Final Re sult [facility] [address] [place] [address] documented in this encounter Visit Diagnoses Diagnosis Anemia in chronic kidney disease Other iron deficiency anemia Chronic kidney disease, stage 2 (mild) documented in this encounter Care Teams Cost Accounting Clerk Relationship Specialty [place] [address] [place] [address] PCP - General Internal Medicine 10/28/22 documented as of this encounter
--- OUTSIDE RECORDS SUMMARY | 2024-09-11 09:56 | XMS_ITS | Clinical Summary ---
Author Organization [facility], Address [address] [place] [address] [place] [address] Phone Care Team Providers Care Burglar Alarm Inspector Name Role Phone Sahra Son MD Primary Care Provider + Allergies Active Allergy Reactions Criticality Noted Date Comments Codeine 12/26/2012 Ferumoxytol Shortness of breath,Itching,Other (see comments) High 02/27/2022 Bones hurt Iodinated Contrast Media 07/06/2022 Penicillins 12/26/2012 Other Shellfish Allergy 12/26/2012 Tramadol 07/06/2022 Trazodone 03/08/2018 Iron Sucrose 02/29/2024 Coughing fit infusion stopped at [facility] Medications Cymbalta [address] capsule TK 2 CS PO QAM 12/28/19 20 Active LORazepam (ATIVAN) 1 MG tablet TK 1 T PO BID 12/24/19 20 Active meclizine (ANTIVERT) 25 MG tablet TK 1 T PO TID PRN 12/24/19 20 Active montelukast (SINGULAIR) 10 MG tablet TK 1 T PO QD IN THE DARCY 11/19/19 20 Active Creon 45209-99381 units capsule TK ONE C PO TID [...] [facility] [address] [place] [address] India Davalos Anemia in chronic kidney disease; Other iron deficiency anemia; Chronic kidney disease, stage 2 (mild) 08/28/2024 Documentation Only [facility], [address] [place] [address] Anoop, [place] 08/25/2024 Documentation Only [facility] [address] [place] [address] Anoop, [place] 08/24/2024 Documentation Only [facility] [address] [place] [address] Anoop, [place] 08/24/2024 Refill [facility] [address] [place] [address] Anoop, [place] 08/23/2024 Refill [facility] [address] [place] [address] Anoop, [place] 08/23/2024 Refill [facility] [address] [place] [address] Anoop, [place] 08/18/2024 Office Communication [facility] [address] [place] [address] Stephanie Azul, LAURITA 08/18/2024 Orders Only [facility] [address] [place] [address] India Davalos Chronic kidney disease, stage 2 (mild); Anemia in chronic kidney disease; Iron deficiency anemia, not otherwise specified 08/04/2024 Orders Only [facility] [address] [place] [address] India Davalos Anemia in chronic kidney disease; Other iron deficiency anemia; Chronic kidney disease, stage 2 (mild) 07/21/2024 Orders Only [facility] [address] [place] [address] India Davalos Chronic kidney disease, stage 2 (mild); Anemia in chronic kidney disease; Iron deficiency anemia, not otherwise specified 07/07/2024 Orders Only [facility] [address] [place] [address] Anoop [place] Anemia in chronic kidney disease; Other iron deficiency anemia; Chronic kidney disease, stage 2 (mild) 06/23/2024 Orders Only [facility] [address] [place] [address] AnoopGarry rhodesica Chronic kidney disease, stage 2 (mild); Anemia in chronic kidney disease; Iron deficiency anemia, not otherwise specified from Last 3 Months Immunizations Immunization Administration [...] Visit [facility], [address] [place] [address] Barry Reyes MD [address] [facility] [place] [address] Health Maintenance Due Date Last [...] Associated Diagnosis Comments RENAL FUNCTION PANEL Routine 09/06/2024 8:15 AM EDT Anemia in chronic kidney disease Other iron deficiency anemia Chronic kidney disease, stage 2 (mild) FERRITIN Routine 09/06/2024 8:15 AM EDT Anemia in chronic kidney disease Other iron deficiency anemia Chronic kidney disease, stage 2 (mild) IRON PANEL (FE, TIBC, TSAT) Routine 09/06/2024 [...] anemia Chronic kidney disease, stage 2 (mild) HEMOGLOBIN A1C Routine 06/08/2023 8:36 AM EST Chronic kidney disease, stage 2 (mild) Essential (primary) hypertension Anemia in chronic kidney disease Antiphospholipid syndrome (HCC) Type 2 diabetes mellitus, not otherwise specified (HCC) Bleeding hemorrhoids from Last 3 Months or Most Recently Relevant to Health Maintenance Results * (ABNORMAL) Iron Panel (Fe, TIBC, TSAT) (09/06/2024 8:15 AM EDT) Only the most recent of2 resultswithin the time period is included. TIBC 323 250 - 450 ug/dL [facility] UIBC 286 118 - 369 ug/dL [facility] Iron 37 27 - 139 ug/dL [facility] Iron Saturation (TSat) 11(L) 15 - 55 % [facility] Blood (Blood, Venous) 09/06/2024 8:15 AM EDT 09/06/2024 us Barry Reyes MD LAB BLOOD ORDERABLES Final Re sult [facility] [address] [place] [address] * (ABNORMAL) CBC and Differential (09/06/2024 8:15 AM EDT) Only the most recent of2 resultswithin the time period is included. WBC 6.3 3.4 - 10.8 x10E3/uL [facility] RBC 5.35(H) 3.77 - 5.28 x10E6/uL [facility] Hemoglobin 10.6(L) 11.1 - 15.9 g/dL [facility] Hematocrit 35.8 34.0 - 46.6 % [facility] MCV 67(L) 79 - 97 fL [facility] MCH 19.8(L) 26.6 - 33.0 pg [facility] MCHC 29.6(L) 31.5 - 35.7 g/dL [facility] RDW 18.4(H) 11.7 - 15.4 % [facility] Platelets 190 150 - 450 x10E3/uL [facility] Neutrophils Relative 67 Not Estab. % [facility] Lymphocytes Relative 22 Not Estab. % [facility] Monocytes 6 Not Estab. % [facility] Eosinophils Relative 3 Not Estab. % [facility] Basophils Relative 1 Not Estab. % [facility] Neutrophils Absolute 4.3 1.4 - 7.0 x10E3/uL [facility] Lymphocytes Absolute 1.4 0.7 - 3.1 x10E3/uL [facility] Monocytes Absolute 0.4 0.1 - 0.9 x10E3/uL [facility] Eosinophils Absolute 0.2 0.0 - 0.4 x10E3/uL [facility] Basophils Absolute 0.1 0.0 - 0.2 x10E3/uL [facility] Immature Granulocytes 1 Not Estab. % [facility] Immature Grans (Absolute) 0.1 0.0 - 0.1 x10E3/uL [facility] Blood (Blood, Venous) 09/06/2024 8:15 AM EDT 09/06/2024 Barry Reyes MD LAB BLOOD ORDERABLES Final Re sult [facility] [address] [place] [address] * Ferritin (09/06/2024 8:15 AM EDT) Only the most recent of2 resultswithin the time period is included. Ferritin 37 15 - 150 ng/mL [facility] Blood (Blood, Venous) 09/06/2024 8:15 AM EDT 09/06/2024 Barry Reyes MD LAB BLOOD ORDERABLES Final Re sult [facility] [address] [place] [address] * (ABNORMAL) Renal Function Panel (09/06/2024 8:15 AM EDT) Only the most recent of2 resultswithin the time period is included. Glucose 233(H) 70 - 99 mg/dL [facility] BUN 15 8 - 27 mg/dL [facility] Creatinine 1.01(H) 0.57 - 1.00 mg/dL [facility] eGFR CKD-EPI CR 2020 62 >59 mL/min/1.7 3 [facility] BUN/Creatinine Ratio 15 12 - 28 [facility] Sodium 138 134 - 144 mmol/L [facility] Potassium 4.9 3.5 - 5.2 mmol/L [facility] Chloride 101 96 - 106 mmol/L [facility] Bicarbonate (CO2) 19(L) 20 - 29 mmol/L [facility] Calcium 9.1 8.7 - 10.3 mg/dL [facility] Albumin 4.2 3.9 - 4.9 g/dL [facility] Phosphorus 3.8 3.0 - 4.3 mg/dL [facility] Blood (Blood, Venous) 09/06/2024 8:15 AM EDT 09/06/2024 us Barry Reyes MD LAB BLOOD ORDERABLES [facility] [address] [place] [address] * (ABNORMAL) Hemoglobin A1c (06/08/2023 8:36 AM EST) Pathologist [facility] Hemoglobin A1C 7.2(H) (4.0-5.6) % [facility] Comment: MONITORING: In known diabetic patients, hemoglobin A1c targets should be discussed with health care provider. DIAGNOSTIC USE: ??The [place] Diabetes Association (ADA) and the World Health [...] Supplement 1 Testing performed or reported by [facility], a Service of [facility], [address] [place] [address] Luis A Bailey MD, Ticket Counter [facility]# [id number] Blood (Blood, Venous) 06/08/2023 8:36 AM EST 06/08/2023 8:38 AM EST us Arlene CARTER LAB BLOOD ORDERABLES Final Re sult [facility] Organization Address City/State/ZIP Co de Phone Number [facility] from Last 3 Months or Most Recently Relevant to Health Maintenance Insurance Dual SNP ([id number]) [place] [id number] Care Teams Burglar Alarm Inspector Relationship Specialty Start Date End Date Sahra Son MD [address] [address] PCP - General Internal Medicine 10/28/22
--- OUTSIDE RECORDS SUMMARY | 2024-09-11 09:56 | XMS_ITS | Encounter Summary ---
Author Organization [facility] Address [address] [place] [address] Care Team Providers Care Retail Commission Sales Associate Name Role Phone Vinnie Santizo Primary Care Provider Sahra Keith MD Primary Care Provider Marko Fernandez MD Unavailable [phone] Encounter Details Date Type Department Care Team Description 07/30/2022 Honing Machine Operator Semiautomatic Report Medical Records [address] [place] [address] Sahra Son MD Social History Tobacco Use [...] on filedocumented in this encounter Care Teams Retail Commission Sales Associate Relationship Specialty Start Date End Date Vinnie Santizo PCP - General Internal Medicine 03/30/17 08/30/22 Sahra Son MD PCP - General Internal Medicine 08/31/22 Marko Spaulding MD Specialist Cardiology 09/23/22 documented as of this encounter
--- OUTSIDE RECORDS SUMMARY | 2024-09-11 09:57 | XMS_ITS | Encounter Summary ---
Author Organization [facility] Address [address] [place] [address] Care Team Providers Care Logistics Specialist Name Role Phone Sahra Son MD Primary Care Provider Paula Marko Ferreira MD Unavailable [phone] Reason for Visit * Reason Onset Date Comments External Sleep Study Request 12/08/2022 Sle ep Study Encounter Details Date Type Department Care Team Description 12/08/2022 Telephone Pulmonology - [place] [address] [facility] [address] [place] [id number] Betty Morillo MD [address] [facility] [address] [place] [phone] External Sleep Study Request (Sleep Study/) Social [...] on filedocumented in this encounter Care Teams Logistics Specialist Relationship Specialty Start Date End Date Sahra Son MD PCP - General Internal Medicine 08/31/22 Marko Spaulding MD Specialist Cardiology 09/23/22 documented as of this encounter
--- OUTSIDE RECORDS SUMMARY | 2024-09-11 09:57 | XMS_ITS | Encounter Summary ---
Author Organization [facility] Address [address] [place] [address] Care Team Providers Care Campus Ambassador Name Role Phone Sahra Son MD Primary Care Provider Paula vailable Marko Spaulding MD Unavailable [phone] Encounter Details Date Type Department Care Team Description 10/19/2022 SCAN Medical Records [address] [place] [address] Abstract, Provider Social History Tobacco Use Types [...] on filedocumented in this encounter Care Teams Campus Ambassador Relationship Specialty Start Date End Date Sahra Son MD PCP - General Internal Medicine 08/31/22 Marko Spaulding MD Specialist Cardiology 09/23/22 documented as of this encounter
--- OUTSIDE RECORDS SUMMARY | 2024-09-11 09:57 | XMS_ITS | Encounter Summary ---
Author Organization [facility] Address [address] [place] [address] Phone Care Team Providers Care Functional Skills Tutor Name Role Phone Sahra Son MD Primary Care Provider + Encounter Details Date Type Department Care Team (Late Contact Info) Description 06/23/2024 Orders Only [facility] [address] [place] [address] India Davalos [address] [place] [address] Chronic kidney disease, stage 2 [...] Visit [facility] [address] [place] [address] Barry Reyes MD [address] [place] [address] [place] [address] documented as of this encounter Visit Diagnoses Diagnosis Chronic kidney disease, stage 2 (mild) Anemia in chronic kidney disease Iron deficiency anemia, not otherwise specified documented in this encounter Care Teams Functional Skills Tutor Relationship Specialty Start Date End Date Sahra Son MD [facility] [place] [address] PCP - General Internal Medicine 10/28/22 documented as of this encounter
--- OUTSIDE RECORDS SUMMARY | 2024-09-11 09:57 | XMS_ITS | Encounter Summary ---
Author Organization [facility] Address [address] [place] [address] Phone Care Team Providers Care Warp Splitter Name Role Phone Sahra Son MD Primary Care Provider + Encounter Details Date Type Department Care Team (Late Contact Info) Description 07/21/2024 Orders Only [facility] [address] [place] [address] India Davalos [address] [place] [address] Chronic kidney disease, stage 2 [...] Visit [facility] [address] [facility] [place] [address] Barry Reyes MD [address] [place] [address] [place] [address] documented as of this encounter Visit Diagnoses Diagnosis Chronic kidney disease, stage 2 (mild) Anemia in chronic kidney disease Iron deficiency anemia, not otherwise specified documented in this encounter Care Teams Warp Splitter Relationship Specialty Start Date End Date Sahra Son MD [facility] [place] [address] PCP - General Internal Medicine 10/28/22 documented as of this encounter
== END 2024-09-11 09:41 | disposition home or self-care (01) ==
LOC: HO.ACS 09:06
PROVIDERS: PCP Internal Medicine; Visit Provider Internal Medicine Medical Oncology
DX: Z79.01 Long term (current) use of anticoagulants (principal)

== ENCOUNTER → 2024-09-11 09:06 | Outpatient (BNVA) | payer OTHER, SELFPAY | PROVIDERS: PCP Internal Medicine; Visit Provider Internal Medicine Medical Oncology | DX: Z86.718 Personal history of other venous thrombosis and embolism (principal); Z79.01 Long term (current) use of anticoagulants; Z51.81 Encounter for therapeutic drug level monitoring | CPT/HCPCS: 85610; 99211 ==

== ENCOUNTER 2024-09-18 09:05 | Outpatient (AMB) | payer OTHER, SELFPAY ==
[2024-09-18 09:14] LABS: Prothrombin Time Whole Bld POC 35.3 sec (11.1-13.5); ~PT, ~INR - Anti Coag Clinic 2.9 (0.9-1.1)
--- NOTE | 2024-09-18 09:19 | MHC.OFFVISCO ---
Intake Intake Visit Reasons: Anticoagulation Allergies codeine [Codeine] Allergy (Severe, Verified 09/18/24 09:09) DIFFICULTY BREATHING Penicillins Allergy (Severe, Verified 09/18/24 09:09) RASH penicillin V Allergy (Intermediate, Verified 09/18/24 09:09) RASH tramadol [Ultram] Allergy (Unknown, Verified 09/18/24 09:09) hallucinations Shellfish Allergy (Severe, Uncoded 09/18/24 09:09) THROAT SWELLING Contrast Allergy PreMed Pack Allergy (Unknown, Uncoded 09/18/24 09:09) TREAT WITH BENADRYL ferrlecit Adverse Reaction (Intermediate, Uncoded 09/18/24 09:09) Rash Medication List - Last Reconciled 09/18/24 by Tonia Angeles RN atorvastatin 80 mg PO DAILY blood sugar diagnostic As directed budesonide (Pulmicort) 0.25 mg inhalation BID clonidine HCl 0.1 mg PO BID duloxetine 120 mg PO QAM epoetin marj (Procrit) 2,000 units subcut 3XW hydrocortisone 2.5% appl topical ipratropium-albuterol 0.5 mg-3 mg(2.5 mg base)/3 mL mL inhalation ipratropium-albuterol 20-100 mcg/actuation 1 puff PO QID ipratropium-albuterol 20-100 mcg/actuation (Combivent Respimat) 1 puff inhalation Q4H lancets As directed lancets As directed latanoprost 0.005% drps ophthalmic (eye) linagliptin (Tradjenta) 5 mg PO DAILY xejynd-rjyewybq-nkhruuw 24,000-76,000 -120,000 unit (Creon) 1 cap PO TID loratadine 10 mg PO DAILY PRN lorazepam 1 mg PO BID meclizine mg PO montelukast 10 mg PO BEDTIME nifedipine ER 30 mg PO DAILY nitroglycerin 0.4 mg sublingual Q5M PRN nystatin 1 appl topical DAILY PRN ondansetron 4 mg PO Q8H PRN oxcarbazepine (Trileptal) 1 tab qhs x's 1 week then 1 tab bid orally .; 30 days quetiapine 200 mg PO BEDTIME rabeprazole 20 mg PO DAILY ropinirole 0.25 mg PO BEDTIME sodium chloride 0.65% (Deep Sea Nasal) sprays intranasal Q2H PRN triamcinolone acetonide 0.1% appl topical warfarin 2.5 mg See Protocol PO DAILY Nursing Note INR: 2.9 in therapeutic range of 2-3 Medications and supplements reviewed No changes in health, diet, medications, or supplements, Pt may be increasing her dose of Oxcarbazepine from 1 tab daily to 2 tabs daily. She states will be checking with her MD before doing this. This can lower the INR. Will monitor closely. Denies any signs and symptoms of bleeding or bruising or clotting. Bleeding, bruising, clotting discussed Nutritional guidance given Dose: resume usual dose of 5mg X 4 days and 3.75mg X 3 days F/U INR: 1 week Patient verbalizes understanding of instructions given Anti-Coag Initial Assessment Social Hx Patient Tobacco Use Status: Current everyday Tobacco user alcohol intake: never Coding Level of Care Code Est Patient Level 1 Diagnoses Current use of anticoagulant therapy Z79.01 Results AMB INR Fingerstick AMB INR Fingerstick 2.9 Last Edit by Tonia Angeles RN on 09/18/24 09:14 interface delay Assessment & Plan Assessment & Plan (1) Current use of anticoagulant therapy: Code(s): Z79.01 - [facility] (current) use of anticoagulants Category: Medical
--- OUTSIDE RECORDS SUMMARY | 2024-09-18 09:39 | XMS_ITS | Encounter Summary ---
Author Organization [facility] Address [address] [place] [address] Phone Care Team Providers Care Pot Fluxer Name Role Phone Sahra Son MD Primary Care Provider + Encounter Details Date Type Department Care Team ([facility] Contact Info) Description 09/28/2022 Documentation Only [facility] [address] [place] [address] India Davalos [address] [place] [address] Social History Tobacco Use [...] Upcoming Encounters Date Type Department Care Team ([facility] Contact Info) Description 11/23/2024 12:50 PM EDT Office Visit [facility] [address] [place] [address] Barry Reyes MD [address] [place] [address] [place] [address] documented as of this encounter Visit Diagnoses Not on filedocumented in this encounter Care Teams Pot Fluxer Relationship Specialty Start Date End Date Sahra Son MD [address] [address] PCP - General Internal Medicine 10/28/22 documented as of this encounter
--- OUTSIDE RECORDS SUMMARY | 2024-09-18 09:39 | XMS_ITS | Encounter Summary ---
Author Organization [facility] Address [address] [place] [address] Care Team Providers Care Nuclear Medicine Technician Name Role Phone Vinnie Santizo Primary Care Provider Sahra Keith MD Primary Care Provider Marko Fernandez MD Unavailable [phone] Encounter Details Date Type Department Care Team Description 08/24/2022 Hospital Medical Records [address] [place] [address] Social History Tobacco Use Types Packs/Day Years [...] on filedocumented in this encounter Care Teams Nuclear Medicine Technician Relationship Specialty Start Date End Date Vinnie Santizo PCP - General Internal Medicine 03/30/17 08/30/22 Sahra Son MD PCP - General Internal Medicine 08/31/22 Marko Spauldign MD Specialist Cardiology 09/23/22 documented as of this encounter
--- OUTSIDE RECORDS SUMMARY | 2024-09-18 09:39 | XMS_ITS | Encounter Summary ---
Author Organization [facility] Address [address] [place] [address] Phone Care Team Providers Care Channel Opener Name Role Phone Sahra Son MD Primary Care Provider + Encounter Details Date Type Department Care Team ([facility] Contact Info) Description 06/18/2021 Documentation Only [facility] [address] [place] [address] India Davalos [address] [place] [address] Social History Tobacco Use Types [...] [facility] [address] [place] [address] Barry Reyes MD [address] [place] [address] [place] [address] documented as of this encounter Visit Diagnoses Not on filedocumented in this encounter Care Teams Channel Opener Relationship Specialty Start Date End Date Sahra Son MD [address] [address] PCP - General Internal Medicine 10/28/22 documented as of this encounter
--- OUTSIDE RECORDS SUMMARY | 2024-09-18 09:39 | XMS_ITS | Encounter Summary ---
Author Organization [facility] Address [address] [place] [address] Care Team Providers Care Nursing Secretary Name Role Phone Sahra Son MD Primary Care Provider Marko Fernandez MD Unavailable [phone] Encounter Details Date Type Department Care Team Description 09/02/2022 Telephone Pulmonology - [place] [address] [facility] [address] [place] [phone] Betty Morillo MD [address] [facility] [address] [place] [phone] Social History Tobacco Use Types Packs/Day Years [...] pcp CCA requesting last office notes fax [phone] documented in this encounter Plan of Treatment Not on file documented as of this encounter Visit Diagnoses Not on filedocumented in this encounter Care Teams Nursing Secretary Relationship Specialty Start Date End Date Sahra Son MD PCP - General Internal Medicine 08/31/22 Marko Spaulding MD Specialist Cardiology 09/23/22 documented as of this encounter
--- OUTSIDE RECORDS SUMMARY | 2024-09-18 09:40 | XMS_ITS | Encounter Summary ---
Author Organization [facility] Address [address] [place] [address] Phone Care Team Providers Care Freight Clerk Name Role Phone Sahra Son MD Primary Care Provider + Encounter Details Date Type Department Care Team ([facility] Contact Info) Description 12/23/2021 Documentation Only [facility] [address] [place] [address] Juan Jose Li MD [address] [place] [address] [place] [address] Social History Tobacco Use Types [...] [facility] [address] [place] [address] Barry Reyes MD [address] [place] [address] [place] [address] documented as of this encounter Visit Diagnoses Not on filedocumented in this encounter Care Teams Freight Clerk Relationship Specialty Start Date End Date Sahra Son MD [address] [address] PCP - General Internal Medicine 10/28/22 documented as of this encounter
--- OUTSIDE RECORDS SUMMARY | 2024-09-18 09:40 | XMS_ITS | Encounter Summary ---
Author Organization [facility] Address [address] [place] [address] Phone Care Team Providers Care Procurement Manager Name Role Phone Sahra Son MD Primary Care Provider + Encounter Details Date Type Department Care Team (Late st Contact Info) Description 01/31/2024 Orders Only [facility] [address] [place] [address] Arlene Alston PA Chronic kidney [...] [facility] [address] [place] [address] Barry Reyes MD [address] [facility] [place] [address] documented as of this encounter Visit Diagnoses Diagnosis Chronic kidney disease, stage 2 (mild) Essential (primary) hypertension Iron deficiency anemia, not otherwise specified Type 2 diabetes mellitus, not otherwise specified (HCC) Antiphospholipid syndrome (HCC) documented in this encounter Care Teams Procurement Manager Relationship Specialty Start Date End Date Sahra Son MD [address] [place] [address] PCP - General Internal Medicine 10/28/22 documented as of this encounter
--- OUTSIDE RECORDS SUMMARY | 2024-09-18 09:40 | XMS_ITS | Encounter Summary ---
Author Organization [facility] Address [address] [place] [address] Phone Care Team Providers Care Neuropathologist Name Role Phone Sahra Son MD Primary Care Provider + Encounter Details Date Type Department Care Team ([facility] Contact Info) Description 06/16/2022 Documentation Only [facility] [address] [place] [address] India Davalos [address] [place] [address] Social History Tobacco Use Types [...] [facility] [address] [place] [address] Barry Reyes MD [address] [place] [address] [place] [address] documented as of this encounter Visit Diagnoses Not on filedocumented in this encounter Care Teams Neuropathologist Relationship Specialty Start Date End Date Sahra Son MD [address] [address] PCP - General Internal Medicine 10/28/22 documented as of this encounter
--- OUTSIDE RECORDS SUMMARY | 2024-09-18 09:40 | XMS_ITS | Encounter Summary ---
Author Organization [facility] Address [address] [place] [address] Phone Care Team Providers Care Lime Filter Operator Name Role Phone Sahra Son MD Primary Care Provider + Encounter Details Date Type Department Care Team ([facility] Contact Info) Description 01/06/2022 Documentation Only [facility] [address] [place] [address] Juan Jose Li MD [address] [place] [address] [place] [address] Social History Tobacco Use Types [...] [facility] [address] [place] [address] Barry Reyes MD [address] [place] [address] [place] [address] documented as of this encounter Visit Diagnoses Not on filedocumented in this encounter Care Teams Lime Filter Operator Relationship Specialty Start Date End Date Sahra Son MD [address] [address] PCP - General Internal Medicine 10/28/22 documented as of this encounter
--- OUTSIDE RECORDS SUMMARY | 2024-09-18 09:40 | XMS_ITS | Encounter Summary ---
Author Organization [facility] Address [address] [place] [address] Phone Care Team Providers Care Supervisor Slitting And Shipping Name Role Phone Sahra Son MD Primary Care Provider + Encounter Details Date Type Department Care Team ([facility] Contact Info) Description 03/11/2023 Documentation Only [facility] [address] [place] [address] India Davalos [address] [place] [address] Social History Tobacco Use Types [...] Encounters Date Type Department Care Team ([facility] Contact Info) Description 11/23/2024 12:50 PM EDT Office Visit [facility] [address] [place] [address] Barry Reyes MD [address] [place] [address] [place] [address] documented as of this encounter Visit Diagnoses Not on filedocumented in this encounter Care Teams Supervisor Slitting And Shipping Relationship Specialty Start Date End Date Sahra Son MD [address] [address] PCP - General Internal Medicine 10/28/22 documented as of this encounter
--- OUTSIDE RECORDS SUMMARY | 2024-09-18 09:40 | XMS_ITS | Encounter Summary ---
Author Organization [facility] Address [address] [place] [address] Phone Care Team Providers Care Director Financial Systems Name Role Phone Sahra Son MD Primary Care Provider + Encounter Details Date Type Department Care Team (Late Contact Info) Description 06/30/2020 Orders Only [facility] [address] [place] [address] Carol Whelan [address] [place] [address] Iron deficiency anemia, not otherwise [...] [facility] [address] [place] [address] Barry Reyes MD [address] [place] [address] documented as of this encounter Visit Diagnoses Diagnosis Iron deficiency anemia, not otherwise specified Chronic kidney disease, Stage II (mild) documented in this encounter Care Teams Director Financial Systems Relationship Specialty Start Date End Date Sahra Son MD [address] [place] [address] PCP - General Internal Medicine 10/28/22 documented as of this encounter
--- OUTSIDE RECORDS SUMMARY | 2024-09-18 09:40 | XMS_ITS | Encounter Summary ---
Author Organization [facility] Address [address] [place] [address] Phone Care Team Providers Care Snow Blower Name Role Phone Sahra Son MD Primary Care Provider + Encounter Details Date Type Department Care Team ([facility] Contact Info) Description 11/11/2023 Documentation Only [facility] [address] [place] [address] India Davalos [address] [place] [address] Social History Tobacco Use Types [...] Services Of [address] [place] [address] Barry Reyes MD [address] [place] [address] [place] [address] documented as of this encounter Visit Diagnoses Not on filedocumented in this encounter Care Teams Snow Blower Relationship Specialty Start Date End Date Sahra Son MD [address] [address] PCP - General Internal Medicine 10/28/22 documented as of this encounter
--- OUTSIDE RECORDS SUMMARY | 2024-09-18 09:40 | XMS_ITS | Encounter Summary ---
Author Organization [facility] Address [address] [place] [address] Phone Care Team Providers Care Waiter/Waitress Take Out Name Role Phone Sahra Son MD Primary Care Provider + Encounter Details Date Type Department Care Team ([facility] Contact Info) Description 08/25/2024 Documentation Only [facility] [address] [place] [place] [address] India Davalos [address] [place] [address] Social History Tobacco Use Types [...] Upcoming Encounters Date Type Department Care Team ([facility] Contact Info) Description 11/23/2024 12:50 PM EDT Office Visit [facility] [address] [place] [place] [address] Barry Reyes MD [address] [place] [address] [place] [address] documented as of this encounter Visit Diagnoses Not on filedocumented in this encounter Care Teams Waiter/Waitress Take Out Relationship Specialty Start Date End Date Sahra Son MD [address] [address] PCP - General Internal Medicine 10/28/22 documented as of this encounter
--- OUTSIDE RECORDS SUMMARY | 2024-09-18 09:40 | XMS_ITS | Encounter Summary ---
Author Organization [facility] Address [address] [place] [address] Phone Care Team Providers Care Academic Registrar Name Role Phone Sahra Son MD Primary Care Provider + Encounter Details Date Type Department Care Team ([facility] Contact Info) Description 09/28/2022 Documentation Only [facility] [address] [place] [address] India Davalos [address] [place] [address] Social History Tobacco Use Types [...] [facility] Contact Info) Description 11/23/2024 12:50 PM EDT Office Visit [facility] [address] [place] [address] Barry Reyes MD [address] [place] [address] [place] [address] documented as of this encounter Visit Diagnoses Not on filedocumented in this encounter Care Teams Academic Registrar Relationship Specialty Start Date End Date Sahra Son MD [address] [address] PCP - General Internal Medicine 10/28/22 documented as of this encounter
--- OUTSIDE RECORDS SUMMARY | 2024-09-18 09:40 | XMS_ITS | Encounter Summary ---
Author Organization [facility] Address [address] [place] [address] Phone Care Team Providers Care Liner Reroll Tender Name Role Phone Sahra Son MD Primary Care Provider + Encounter Details Date Type Department Care Team ([facility] Contact Info) Description 04/08/2022 Documentation Only [facility] [address] [place] [address] India Davalos [address] [place] [address] Social History Tobacco Use Types [...] Encounters Date Type Department Care Team ([facility] Contact Info) Description 11/23/2024 12:50 PM EDT Office Visit [facility] [address] [place] [address] Barry Reyes MD [address] [place] [address] [place] [address] documented as of this encounter Visit Diagnoses Not on filedocumented in this encounter Care Teams Liner Reroll Tender Relationship Specialty Start Date End Date Sahra Son MD [address] [address] PCP - General Internal Medicine 10/28/22 documented as of this encounter
--- OUTSIDE RECORDS SUMMARY | 2024-09-18 09:40 | XMS_ITS | Encounter Summary ---
Author Organization [facility] Address [address] [place] [address] Phone Care Team Providers Care Hospital Monitor Name Role Phone Sahra Son MD Primary Care Provider + Encounter Details Date Type Department Care Team (Late Contact Info) Description 02/04/2024 Orders Only [facility] [address] [place] [address] India Davalos [address] [place] [address] Chronic kidney disease, stage 2 [...] Visit [facility] [address] [place] [place] [address] Barry Reyes MD [address] [place] [address] [place] [address] documented as of this encounter [...] Glucose 169(H) 70 - 99 mg/dL [facility] BUN 16 8 - 27 mg/dL [facility] Creatinine 1.00 0.57 - 1.00 mg/dL [facility] eGFR CKD-EPI CR 2020 63 >59 mL/min/1.7 3 [facility] BUN/Creatinine Ratio 16 12 - 28 [facility] Sodium 138 134 - 144 mmol/L [facility] Potassium 4.8 3.5 - 5.2 mmol/L [facility] Chloride 100 96 - 106 mmol/L [facility] Bicarbonate (CO2) 22 20 - 29 mmol/L [facility] Calcium 9.1 8.7 - 10.3 mg/dL [facility] Albumin 4.1 3.9 - 4.9 g/dL [facility] Phosphorus 4.2 3.0 - 4.3 mg/dL [facility] Blood (Blood, Venous) 02/22/2024 8:29 AM EDT 02/22/2024 Barry Reyes MD LAB BLOOD ORDERABLES Final Re sult Performing Organization Address [facility]/ZIP Co de Phone Number [facility] [address] [place] [address] * Ferritin (02/22/2024 8:29 AM EDT) Ferritin 47 15 - 150 ng/mL [facility] Blood (Blood, Venous) 02/22/2024 8:29 AM EDT 02/22/2024 Barry Reyes MD LAB BLOOD ORDERABLES Final Re sult Performing Organization Address [facility] de Phone Number [facility] [address] [place] [address] * (ABNORMAL) Iron Panel (Fe, TIBC, TSAT) (02/22/2024 8:29 AM EDT) Iron 39 27 - 139 ug/dL [facility] TIBC 310 250 - 450 ug/dL [facility] UIBC 271 118 - 369 ug/dL [facility] Iron Saturation (TSat) 13(L) 15 - 55 % [facility] Blood (Blood, Venous) 02/22/2024 8:29 AM EDT 02/22/2024 Barry Reyes MD LAB BLOOD ORDERABLES Final Re sult Performing Organization Address City/[facility]/ZIP Co de Phone Number [facility] [address] [place] [address] * (ABNORMAL) CBC and Differential (02/22/2024 8:29 AM EDT) [employer] Signature WBC 5.9 3.4 - 10.8 x10E3/uL [facility] RBC 5.33(H) 3.77 - 5.28 x10E6/uL [facility] Hemoglobin 10.3(L) 11.1 - 15.9 g/dL [facility] Hematocrit 35.1 34.0 - 46.6 % [facility] MCV 66(L) 79 - 97 fL [facility] MCH 19.3(L) 26.6 - 33.0 pg [facility] MCHC 29.3(L) 31.5 - 35.7 g/dL [facility] RDW 19.3(H) 11.7 - 15.4 % [facility] Platelets 174 150 - 450 x10E3/uL [facility] Neutrophils Relative 71 Not Estab. % [facility] Lymphocytes Relative 21 Not Estab. % [facility] Monocytes 5 Not Estab. % [facility] Eosinophils Relative 1 Not Estab. % [facility] Basophils Relative 1 Not Estab. % [facility] Neutrophils Absolute 4.2 1.4 - 7.0 x10E3/uL [facility] Lymphocytes Absolute 1.3 0.7 - 3.1 x10E3/uL [facility] Monocytes Absolute 0.3 0.1 - 0.9 x10E3/uL [facility] Eosinophils Absolute 0.1 0.0 - 0.4 x10E3/uL [facility] Basophils Absolute 0.0 0.0 - 0.2 x10E3/uL [facility] Immature Granulocytes 1 Not Estab. % [facility] Immature Grans (Absolute) 0.0 0.0 - 0.1 x10E3/uL [facility] Blood (Blood, Venous) 02/22/2024 8:29 AM EDT 02/22/2024 us Barry Reyes MD LAB BLOOD ORDERABLES Final Re sult [facility] [address] [place] [address] documented in this encounter Visit Diagnoses Diagnosis Chronic kidney disease, stage 2 (mild) Anemia in chronic kidney disease Iron deficiency anemia, not otherwise specified documented in this encounter Care Teams Hospital Monitor Relationship Specialty Start Date End Date Sahra Son MD [address] [place] [address] PCP - General Internal Medicine 10/28/22 documented as of this encounter
--- OUTSIDE RECORDS SUMMARY | 2024-09-18 09:40 | XMS_ITS | Encounter Summary ---
Author Organization [facility] Address [address] [place] [address] Phone Care Team Providers Care Care Specialist Name Role Phone Sahra Son MD Primary Care Provider + Encounter Details Date Type Department Care Team ([facility] Contact Info) Description 08/11/2022 Documentation Only [facility] [address] [place] [address] India Davalos [address] [place] [address] Social History Tobacco Use Types [...] [facility] [address] [place] [place] [address] Barry Reyes MD [address] [place] [address] [place] [address] documented as of this encounter Visit Diagnoses Not on filedocumented in this encounter Care Teams Care Specialist Relationship Specialty Start Date End Date Sahra Son MD [address] [address] PCP - General Internal Medicine 10/28/22 documented as of this encounter
--- OUTSIDE RECORDS SUMMARY | 2024-09-18 09:40 | XMS_ITS | Encounter Summary ---
Author Organization [facility] Address [address] [place] [address] Phone Care Team Providers Care Vp Biology Name Role Phone Sahra Son MD Primary Care Provider + Encounter Details Date Type Department Care Team (Late st Contact Info) Description 07/07/2024 Orders Only [facility] [address] [place] [address] India Davalos [address] [place] [address] Anemia in chronic kidney disease; [...] [facility] [address] [place] [address] Barry Reyes MD [address] [facility] [place] [address] documented as of this encounter Visit Diagnoses Diagnosis Anemia in chronic kidney disease Other iron deficiency anemia Chronic kidney disease, stage 2 (mild) documented in this encounter Care Teams Vp Biology Relationship Specialty Start Date End Date Sahra Son MD [facility] [place] [address] PCP - General Internal Medicine 10/28/22 documented as of this encounter
--- OUTSIDE RECORDS SUMMARY | 2024-09-18 09:40 | XMS_ITS | Encounter Summary ---
Author Organization [facility] Address [address] [place] [address] Phone Care Team Providers Care Director Design Name Role Phone Sahra Son MD Primary Care Provider + Encounter Details Date Type Department Care Team ([facility] Contact Info) Description 08/24/2024 Documentation Only [facility] [address] [place] [address] India Davalos [address] [place], [place] [...] [facility] [address] [place] [address] Barry Reyes MD [address] [place] [address] [place] [address] documented as of this encounter Visit Diagnoses Not on filedocumented in this encounter Care Teams Director Design Relationship Specialty Start Date End Date Sahra Son MD [address] [address] PCP - General Internal Medicine 10/28/22 documented as of this encounter
--- OUTSIDE RECORDS SUMMARY | 2024-09-18 09:40 | XMS_ITS | Encounter Summary ---
Author Organization [facility] Address [address] [place] [address] Phone Care Team Providers Care Tool Repairer Name Role Phone Sahra Son MD Primary Care Provider + Encounter Details Date Type Department Care Team ([facility] Contact Info) Description 09/18/2022 Documentation Only [facility] [address] [place] [address] India Davalos [address] [place] [address] Social History Tobacco Use Types [...] [facility] [address] [place] [address] Barry Reyes MD [address] [place] [address] [place] [address] documented as of this encounter Visit Diagnoses Not on filedocumented in this encounter Care Teams Tool Repairer Relationship Specialty Start Date End Date Sahra Son MD [address] [address] PCP - General Internal Medicine 10/28/22 documented as of this encounter
--- OUTSIDE RECORDS SUMMARY | 2024-09-18 09:40 | XMS_ITS | Encounter Summary ---
Author Organization [facility] Address [address] [place] [address] Phone Care Team Providers Care Disease Intervention Specialist Name Role Phone Sahra Son MD Primary Care Provider + Encounter Details Date Type Department Care Team ([facility] Contact Info) Description 03/23/2024 Documentation Only [facility] [address] [place] [address] India Davalos [address] [place] [address] Social History Tobacco Use Types [...] [facility] Contact Info) Description 11/23/2024 12:50 PM EDT Office Visit [facility] [address] [place] [address] Barry Reyes MD [address] [place] [address] [place] [address] documented as of this encounter Visit Diagnoses Not on filedocumented in this encounter Care Teams Disease Intervention Specialist Relationship Specialty Start Date End Date Sahra Son MD [address] [address] PCP - General Internal Medicine 10/28/22 documented as of this encounter
--- OUTSIDE RECORDS SUMMARY | 2024-09-18 09:40 | XMS_ITS | Encounter Summary ---
Author Organization [facility] Address [address] [place] [address] Phone Care Team Providers Care Information Systems Operator Name Role Phone Sahra Son MD Primary Care Provider + Encounter Details Date Type Department Care Team ([facility] Contact Info) Description 08/28/2024 Documentation Only [facility] [address] [place] [address] India Davalos [address] [place] [address] Social History Tobacco Use Types [...] [facility] [address] [place] [address] Barry Reyes MD [address] [place] [address] [place] [address] documented as of this encounter Visit Diagnoses Not on filedocumented in this encounter Care Teams Information Systems Operator Relationship Specialty Start Date End Date Sahra Son MD [address] [address] PCP - General Internal Medicine 10/28/22 documented as of this encounter
--- OUTSIDE RECORDS SUMMARY | 2024-09-18 09:40 | XMS_ITS | Encounter Summary ---
Author Organization [facility] [employer] Address [address] [place] [address] Phone Care Team Providers Care No Experience Name Role Phone Sahra Son MD Primary Care Provider + Encounter Details Date Type Department Care Team (Late Contact Info) Description 03/03/2024 Orders Only [facility] [address] [place] [address] India Davalos [address] [place] [address] Chronic kidney disease, stage 2 [...] Visit [facility] [employer] [facility] [address] [place] [address] Barry Reyes MD [address] [place] [address] [place] [address] documented as of this encounter [...] Glucose 152(H) 70 - 99 mg/dL [facility] BUN 16 8 - 27 mg/dL [facility] Creatinine 0.98 0.57 - 1.00 mg/dL [facility] eGFR CKD-EPI CR 2020 64 >59 mL/min/1.7 3 [facility] BUN/Creatinine Ratio 16 12 - 28 [facility] Sodium 137 134 - 144 mmol/L [facility] Potassium 4.8 3.5 - 5.2 mmol/L [facility] Chloride 101 96 - 106 mmol/L [facility] Bicarbonate (CO2) 22 20 - 29 mmol/L [facility] Calcium 8.8 8.7 - 10.3 mg/dL [facility] Albumin 4.0 3.9 - 4.9 g/dL [facility] Phosphorus 4.0 3.0 - 4.3 mg/dL [facility] Blood (Blood, Venous) 03/24/2024 10:37 AM EST 03/24/2024 Barry Reyes MD LAB BLOOD ORDERABLES Final Re sult Performing Organization Address City/[facility]/ZIP Co de Phone Number LABCO [facility] [address] [place] [address] * Ferritin (03/24/2024 10:37 AM EST) Ferritin 37 15 - 150 ng/mL [facility] Blood (Blood, Venous) 03/24/2024 10:37 AM EST 03/24/2024 Barry Reyes MD LAB BLOOD ORDERABLES Final Re sult Performing Organization Address [facility] de Phone Number [facility]CO [facility] [address] [place] [address] * Iron Panel (Fe, TIBC, TSAT) (03/24/2024 10:37 AM EST) Pathologist [facility] TIBC 293 250 - 450 ug/dL [facility] UIBC 247 118 - 369 ug/dL [facility] Iron 46 27 - 139 ug/dL [facility] Iron Saturation (TSat) 16 15 - 55 % [facility] Blood (Blood, Venous) 03/24/2024 10:37 AM EST 03/24/2024 Barry Reyes MD LAB BLOOD ORDERABLES Final Re sult Performing Organization Address City/[facility]/ZIP Co de Phone Number [facility] [address] [place] [address] * (ABNORMAL) CBC and Differential (03/24/2024 10:37 AM EST) [facility] WBC 6.0 3.4 - 10.8 x10E3/uL [facility] RBC 5.21 3.77 - 5.28 x10E6/uL [facility] Hemoglobin 10.0(L) 11.1 - 15.9 g/dL [facility] Hematocrit 35.3 34.0 - 46.6 % [facility] MCV 68(L) 79 - 97 fL [facility] MCH 19.2(L) 26.6 - 33.0 pg [facility] MCHC 28.3(L) 31.5 - 35.7 g/dL [facility] RDW 19.4(H) 11.7 - 15.4 % [facility] Platelets 186 150 - 450 x10E3/uL [facility] Neutrophils Relative 65 Not Estab. % [facility] Lymphocytes Relative 26 Not Estab. % [facility] Monocytes 6 Not Estab. % [facility] Eosinophils Relative 2 Not Estab. % [facility] Basophils Relative 1 Not Estab. % [facility] Neutrophils Absolute 3.9 1.4 - 7.0 x10E3/uL [facility] Lymphocytes Absolute 1.5 0.7 - 3.1 x10E3/uL [facility] Monocytes Absolute 0.3 0.1 - 0.9 x10E3/uL [facility] Eosinophils Absolute 0.1 0.0 - 0.4 x10E3/uL [facility] Basophils Absolute 0.0 0.0 - 0.2 x10E3/uL [facility] Immature Granulocytes 0 Not Estab. % [facility] Immature Grans (Absolute) 0.0 0.0 - 0.1 x10E3/uL [facility] Blood (Blood, Venous) 03/24/2024 10:37 AM EST 03/24/2024 us Barry Reyes MD LAB BLOOD ORDERABLES Final Re sult [facility] [address] [place] [address] documented in this encounter Visit Diagnoses Diagnosis Chronic kidney disease, stage 2 (mild) Anemia in chronic kidney disease Iron deficiency anemia, not otherwise specified documented in this encounter Care Teams No Experience Relationship Specialty Start Date End Date Sahra Son MD [address] [place] [address] PCP - General Internal Medicine 10/28/22 documented as of this encounter
--- OUTSIDE RECORDS SUMMARY | 2024-09-18 09:40 | XMS_ITS | Encounter Summary ---
Author Organization [facility] Address [address] [place] [address] Phone Care Team Providers Care Marketing Secretary Name Role Phone Sahra Son MD Primary Care Provider + Encounter Details Date Type Department Care Team ([facility] Contact Info) Description 06/22/2022 Documentation Only [facility] [address] [place] [address] India Davalos [address] [place] [address] Social History Tobacco Use Types [...] [facility] [address] [place] [address] Barry Reyes MD [address] [place] [address] [place] [address] documented as of this encounter Visit Diagnoses Not on filedocumented in this encounter Care Teams Marketing Secretary Relationship Specialty Start Date End Date Sahra Son MD [address] [address] PCP - General Internal Medicine 10/28/22 documented as of this encounter
--- OUTSIDE RECORDS SUMMARY | 2024-09-18 09:40 | XMS_ITS | Encounter Summary ---
Author Organization [facility] Address [address] [place] [address] Phone Care Team Providers Care Pantograph I Engraver Name Role Phone Sahra Son MD Primary Care Provider + Encounter Details Date Type Department Care Team ([facility] Contact Info) Description 09/28/2022 Documentation Only [facility] [address] [place] [address] India Davalos [address] [place] [address] Social History Tobacco Use Types [...] Upcoming Encounters Date Type Department Care Team ([facility] Contact Info) Description 11/23/2024 12:50 PM EDT Office Visit [facility] [address] [place] [address] Barry Reyes MD [address] [place] [address] [place] [address] documented as of this encounter Visit Diagnoses Not on filedocumented in this encounter Care Teams Pantograph I Engraver Relationship Specialty Start Date End Date Sahra Son MD [address] [address] PCP - General Internal Medicine 10/28/22 documented as of this encounter
--- OUTSIDE RECORDS SUMMARY | 2024-09-18 09:40 | XMS_ITS | Encounter Summary ---
Author Organization [facility] Address [address] [place] [address] Phone Care Team Providers Care Blood Bank Credit Clerk Name Role Phone Sahra Son MD Primary Care Provider + Encounter Details Date Type Department Care Team ([facility] Contact Info) Description 11/21/2021 Documentation Only [facility] [address] [place] [address] India Davalos [address] [place] [address] Social History Tobacco Use Types [...] [facility] [address] [place] [address] Barry Reyes MD [address] [place] [address] [place] [address] documented as of this encounter Visit Diagnoses Not on filedocumented in this encounter Care Teams Blood Bank Credit Clerk Relationship Specialty Start Date End Date Sahra Son MD [address] [address] PCP - General Internal Medicine 10/28/22 documented as of this encounter
--- OUTSIDE RECORDS SUMMARY | 2024-09-18 09:40 | XMS_ITS | Encounter Summary ---
Author Organization [facility] Address [address] [place] [address] Phone Care Team Providers Care Flotation Tender Name Role Phone Sahra Son MD Primary Care Provider + Encounter Details Date Type Department Care Team ([facility] Contact Info) Description 08/11/2022 Documentation Only [facility] [address] [place] [address] India Davalos [address] [place] [address] Social History Tobacco Use Types [...] [facility] [address] [place] [address] Barry Reyes MD [address] [place] [address] [place] [address] documented as of this encounter Visit Diagnoses Not on filedocumented in this encounter Care Teams Flotation Tender Relationship Specialty Start Date End Date Sahra Son MD [address] [address] PCP - General Internal Medicine 10/28/22 documented as of this encounter
--- OUTSIDE RECORDS SUMMARY | 2024-09-18 09:40 | XMS_ITS | Encounter Summary ---
Author Organization [facility] Address [address] [place] [address] Phone Care Team Providers Care Mine Captain Name Role Phone Sahra Son MD Primary Care Provider + Encounter Details Date Type Department Care Team ([facility] Contact Info) Description 11/11/2023 Documentation Only [facility] [address] [place] [address] India Davalos [address] [place] [address] Social History Tobacco Use Types [...] [facility] [address] [place] [address] Barry Reyes MD [address] [place] [address] [place] [address] documented as of this encounter Visit Diagnoses Not on filedocumented in this encounter Care Teams Mine Captain Relationship Specialty Start Date End Date Sahra Son MD [address] [address] PCP - General Internal Medicine 10/28/22 documented as of this encounter
--- OUTSIDE RECORDS SUMMARY | 2024-09-18 09:40 | XMS_ITS | Encounter Summary ---
Author Organization [facility] Address [address] [place] [address] Phone Care Team Providers Care Hydropulper Operator Name Role Phone Sahra Son MD Primary Care Provider + Encounter Details Date Type Department Care Team ([facility] Contact Info) Description 11/30/2023 Documentation Only [facility] [address] [place] [address] India Davalos [address] [place] [address] Social History Tobacco Use Types [...] [facility] [address] [place] [address] Barry Reyes MD [address] [place] [address] [place] [address] documented as of this encounter Visit Diagnoses Not on filedocumented in this encounter Care Teams Hydropulper Operator Relationship Specialty Start Date End Date Sahra Son MD [address] [address] PCP - General Internal Medicine 10/28/22 documented as of this encounter
--- OUTSIDE RECORDS SUMMARY | 2024-09-18 09:40 | XMS_ITS | Encounter Summary ---
Author Organization [facility] Address [address] [place] [address] Phone Care Team Providers Care Director Of Occupational Health Name Role Phone Sahra Son MD Primary Care Provider + Encounter Details Date Type Department Care Team ([facility] Contact Info) Description 11/11/2023 Documentation Only [facility] [address] [place] [address] India Davalos [address] [place] [address] Social History Tobacco Use Types [...] [facility] [address] [place] [address] Barry Reyes MD [address] [place] [address] [place] [address] documented as of this encounter Visit Diagnoses Not on filedocumented in this encounter Care Teams Director Of Occupational Health Relationship Specialty Start Date End Date Sahra Son MD [address] [address] PCP - General Internal Medicine 10/28/22 documented as of this encounter
--- OUTSIDE RECORDS SUMMARY | 2024-09-18 09:40 | XMS_ITS | Encounter Summary ---
Author Organization [facility] Address [address] [place] [address] Phone Care Team Providers Care Weed Burner Name Role Phone Sahra Son MD Primary Care Provider + Encounter Details Date Type Department Care Team ([facility] Contact Info) Description 03/22/2024 Documentation Only [facility] [address] [place] [address] India Davalos [address] [place] [address] Social History Tobacco Use Types [...] [facility] [address] [place] [address] Barry Reyes MD [address] [place] [address] [place] [address] documented as of this encounter Visit Diagnoses Not on filedocumented in this encounter Care Teams Weed Burner Relationship Specialty Start Date End Date Sahra Son MD [address] [address] PCP - General Internal Medicine 10/28/22 documented as of this encounter
--- OUTSIDE RECORDS SUMMARY | 2024-09-18 09:40 | XMS_ITS | Encounter Summary ---
Author Organization [facility] Address [address] [place] [address] Phone Care Team Providers Care Ed Physicians Name Role Phone Sahra Son MD Primary Care Provider + Encounter Details Date Type Department Care Team ([facility] Contact Info) Description 11/11/2023 Documentation Only [facility] [address] [place] [address] India Davalos [address] [place] [address] Social History Tobacco Use Types [...] [facility] [address] [place] [address] Barry Reyes MD [address] [place] [address] [place] [address] documented as of this encounter Visit Diagnoses Not on filedocumented in this encounter Care Teams Ed Physicians Relationship Specialty Start Date End Date Sahra Son MD [address] [address] PCP - General Internal Medicine 10/28/22 documented as of this encounter
--- OUTSIDE RECORDS SUMMARY | 2024-09-18 09:40 | XMS_ITS | Encounter Summary ---
Author Organization [facility] Address [address] [place] [address] Phone Care Team Providers Care Ring Barker Operator Name Role Phone Sahra Son MD Primary Care Provider + Encounter Details Date Type Department Care Team ([facility] Contact Info) Description 06/17/2022 Documentation Only [facility] [address] [place] [address] India Davalos [address] [place] [address] Social History Tobacco Use Types [...] [facility] [address] [place] [address] Barry Reyes MD [address] [place] [address] [place] [address] documented as of this encounter Visit Diagnoses Not on filedocumented in this encounter Care Teams Ring Barker Operator Relationship Specialty Start Date End Date Sahra Son MD [address] [address] PCP - General Internal Medicine 10/28/22 documented as of this encounter
--- OUTSIDE RECORDS SUMMARY | 2024-09-18 09:40 | XMS_ITS | Encounter Summary ---
Author Organization [facility] Address [address] [place] [address] Phone Care Team Providers Care Acura Sales Consultant Name Role Phone Sahra Son MD Primary Care Provider + Encounter Details Date Type Department Care Team (Late Contact Info) Description 08/18/2024 Orders Only [facility] [address] [place] [address] India Davalos [address] [place] [address] Chronic kidney disease, stage 2 [...] Visit [facility] [address] [place] [address] Barry Reyes MD [address] [place] [address] [place] [address] documented as of this encounter Visit Diagnoses Diagnosis Chronic kidney disease, stage 2 (mild) Anemia in chronic kidney disease Iron deficiency anemia, not otherwise specified documented in this encounter Care Teams Acura Sales Consultant Relationship Specialty Start Date End Date Sahra Son MD [facility] [place] [address] PCP - General Internal Medicine 10/28/22 documented as of this encounter
--- OUTSIDE RECORDS SUMMARY | 2024-09-18 09:40 | XMS_ITS | Encounter Summary ---
Author Organization [facility] Address [address] [place] [address] Phone Care Team Providers Care Logistician Name Role Phone Sahra Son MD Primary Care Provider + Encounter Details Date Type Department Care Team (Late st Contact Info) Description 06/09/2024 Orders Only [facility] [address] [place] [address] India Davalos [address] [place] [address] Anemia in chronic kidney disease; [...] Visit [facility] [address] [facility] [place] [address] Barry Reyes MD [address] [facility] [place] [address] documented as of this encounter Visit Diagnoses Diagnosis Anemia in chronic kidney disease Other iron deficiency anemia Chronic kidney disease, stage 2 (mild) documented in this encounter Care Teams Logistician Relationship Specialty Start Date End Date Sahra Son MD [facility] [place] [address] PCP - General Internal Medicine 10/28/22 documented as of this encounter
--- OUTSIDE RECORDS SUMMARY | 2024-09-18 09:40 | XMS_ITS | Encounter Summary ---
Author Organization [facility] Address [address] [place] [address] Phone Care Team Providers Care Fast Food Cook Name Role Phone Sahra Son MD Primary Care Provider + Encounter Details Date Type Department Care Team ([facility] Contact Info) Description 11/19/2023 Documentation Only [facility] [address] [place] [address] India Davalos [address] [place], [place] [...] [facility] [address] [place] [address] Barry Reyes MD [address] [place] [address] [place] [address] documented as of this encounter Visit Diagnoses Not on filedocumented in this encounter Care Teams Fast Food Cook Relationship Specialty Start Date End Date Sahra Son MD [address] [address] PCP - General Internal Medicine 10/28/22 documented as of this encounter
--- OUTSIDE RECORDS SUMMARY | 2024-09-18 09:40 | XMS_ITS | Encounter Summary ---
Author Organization [facility] Address [address] [place] [address] Phone Care Team Providers Care Bulk Loader Name Role Phone Sahra Son MD Primary Care Provider + Encounter Details Date Type Department Care Team ([facility] [place] Contact Info) Description 01/04/2024 Documentation Only [facility] [address] [place] [address] India Davalos [address] [place] [address] Social History Tobacco Use Types [...] [facility] [address] [place] [address] Barry Reyes MD [address] [place] [address] [place] [address] documented as of this encounter Visit Diagnoses Not on filedocumented in this encounter Care Teams Bulk Loader Relationship Specialty Start Date End Date Sahra Son MD [address] [address] PCP - General Internal Medicine 10/28/22 documented as of this encounter
--- OUTSIDE RECORDS SUMMARY | 2024-09-18 09:40 | XMS_ITS | Encounter Summary ---
Author Organization [facility] Address [address] [place] [address] Phone Care Team Providers Care Unit Leader Name Role Phone Sahra Son MD Primary Care Provider + Encounter Details Date Type Department Care Team ([facility] Contact Info) Description 11/11/2023 Documentation Only [facility] [address] [place] [address] India Davalos [address] [place] [address] Social History Tobacco Use Types [...] [facility] [address] [place] [address] Barry Reyes MD [address] [place] [address] [place] [address] documented as of this encounter Visit Diagnoses Not on filedocumented in this encounter Care Teams Unit Leader Relationship Specialty Start Date End Date Sahra Sno MD [address] [address] PCP - General Internal Medicine 10/28/22 documented as of this encounter
--- OUTSIDE RECORDS SUMMARY | 2024-09-18 09:40 | XMS_ITS | Encounter Summary ---
Author Organization [facility] Address [address] [place] [address] Phone Care Team Providers Care Waste Disposal Leakage Tester Name Role Phone Sahra Son MD Primary Care Provider + Encounter Details Date Type Department Care Team ([facility] Contact Info) Description 04/14/2022 Documentation Only [facility] [address] [place] [address] India Davalos [address] [place], [place] [...] [facility] [address] [place] [address] Barry Reyes MD [address] [place] [address] [place] [address] documented as of this encounter Visit Diagnoses Not on filedocumented in this encounter Care Teams Waste Disposal Leakage Tester Relationship Specialty Start Date End Date Sahra Son MD [address] [place] [address] [address] PCP - General Internal Medicine 10/28/22 documented as of this encounter
--- OUTSIDE RECORDS SUMMARY | 2024-09-18 09:40 | XMS_ITS | Encounter Summary ---
Author Organization [facility] Address [address] [place] [address] Phone Care Team Providers Care Dish Person Name Role Phone Sahra Son MD Primary Care Provider + Encounter Details Date Type Department Care Team ([facility] Contact Info) Description 11/11/2023 Documentation Only [facility] [address] [place] [address] India Davalos [address] [place] [address] Social History Tobacco Use Types [...] [facility] [address] [place] [address] Barry Reyes MD [address] [place] [address] [place] [address] documented as of this encounter Visit Diagnoses Not on filedocumented in this encounter Care Teams Dish Person Relationship Specialty Start Date End Date Sahra Son MD [address] [address] PCP - General Internal Medicine 10/28/22 documented as of this encounter
--- OUTSIDE RECORDS SUMMARY | 2024-09-18 09:40 | XMS_ITS | Encounter Summary ---
Author Organization [facility] Address [address] [place] [address] Phone Care Team Providers Care Icing And Glaze Maker Name Role Phone Sahra Son MD Primary Care Provider + Encounter Details Date Type Department Care Team ([facility] Contact Info) Description 11/05/2023 Documentation Only [facility] [address] [place] [address] India Davalos [address] [place] [address] Social History Tobacco Use Types [...] [facility] [address] [place] [address] Barry Reyes MD [address] [place] [address] Dr. [place] [address] documented as of this encounter Visit Diagnoses Not on filedocumented in this encounter Care Teams Icing And Glaze Maker Relationship Specialty Start Date End Date Sahra Son MD [address] [address] PCP - General Internal Medicine 10/28/22 documented as of this encounter
--- OUTSIDE RECORDS SUMMARY | 2024-09-18 09:40 | XMS_ITS | Encounter Summary ---
Author Organization [facility] Address [address] [place] [address] Phone Care Team Providers Care Yard Coordinator Name Role Phone Sahra Son MD Primary Care Provider + Encounter Details Date Type Department Care Team ([facility] Contact Info) Description 09/28/2022 Documentation Only [facility] [address] [place] [address] India Davalos [address] [place] [address] Social History Tobacco Use Types [...] Upcoming Encounters Date Type Department Care Team ([facility] Contact Info) Description 11/23/2024 12:50 PM EDT Office Visit [facility] [address] [place] [address] Barry Reyes MD [address] [place] [address] [place] [address] documented as of this encounter Visit Diagnoses Not on filedocumented in this encounter Care Teams Yard Coordinator Relationship Specialty Start Date End Date Sahra Son MD [address] [address] PCP - General Internal Medicine 10/28/22 documented as of this encounter
--- OUTSIDE RECORDS SUMMARY | 2024-09-18 09:40 | XMS_ITS | Encounter Summary ---
Author Organization [facility] Address [address] [place] [address] Phone Care Team Providers Care Respiratory Therapy Assistant Name Role Phone Sahra Son MD Primary Care Provider + Encounter Details Date Type Department Care Team ([facility] Contact Info) Description 11/17/2023 Documentation Only [facility] [address] [place] [address] India Davalos [address] [place] [address] Social History Tobacco Use [...] [facility] [address] [place] [address] Barry Reyes MD [address] [place] [address] [place] [address] documented as of this encounter Visit Diagnoses Not on filedocumented in this encounter Care Teams Respiratory Therapy Assistant Relationship Specialty Start Date End Date Sahra Son MD [address] [address] PCP - General Internal Medicine 10/28/22 documented as of this encounter
--- OUTSIDE RECORDS SUMMARY | 2024-09-18 09:40 | XMS_ITS | Encounter Summary ---
Author Organization [facility] Address [address] [place] [address] Phone Care Team Providers Care Technical Instructor Course Developer Name Role Phone Sahra Son MD Primary Care Provider + Encounter Details Date Type Department Care Team ([facility] Contact Info) Description 12/31/2023 Documentation Only [facility] [address] [place] [address] India Davalos [address] [place] [address] Social History Tobacco Use Types [...] [facility] [address] [place] [address] Barry Reyes MD [address] [place] [address] [place] [address] documented as of this encounter Visit Diagnoses Not on filedocumented in this encounter Care Teams Technical Instructor Course Developer Relationship Specialty Start Date End Date Sahra Son MD [address] [address] PCP - General Internal Medicine 10/28/22 documented as of this encounter
--- OUTSIDE RECORDS SUMMARY | 2024-09-18 09:41 | XMS_ITS | Encounter Summary ---
Author Organization [facility] Address [address] [place] [address] Phone Care Team Providers Care Insole Tacker Name Role Phone Sahra Son MD Primary Care Provider + Encounter Details Date Type Department Care Team (Late Contact Info) Description 03/31/2024 Orders Only [facility] [address] [place] [address] India Davalos [address] [place] [address] Chronic kidney disease, stage 2 [...] Visit [facility] [address] [place] [address] Barry Reyes MD [address] [facility] [place] [address] documented as of this encounter Visit Diagnoses Diagnosis Chronic kidney disease, stage 2 (mild) Anemia in chronic kidney disease Iron deficiency anemia, not otherwise specified documented in this encounter Care Teams Insole Tacker Relationship Specialty Start Date End Date Sahra Son MD [facility] [place] [address] PCP - General Internal Medicine 10/28/22 documented as of this encounter
--- OUTSIDE RECORDS SUMMARY | 2024-09-18 09:41 | XMS_ITS | Encounter Summary ---
Author Organization [facility] Address [address] [place] [address] Phone Care Team Providers Care Highballer Name Role Phone Sahra Son MD Primary Care Provider + Encounter Details Date Type Department Care Team (Late Contact Info) Description 04/28/2024 Orders Only [facility] [address] [place] [address] India Davalos [address] [place] [address] Chronic kidney disease, stage 2 [...] Visit [facility] [address] [place] [address] Barry Reyes MD [address] [place] [address] [place] [address] documented as of this encounter [...] Glucose 153(H) 70 - 99 mg/dL [facility] BUN 17 8 - 27 mg/dL [facility] Creatinine 0.98 0.57 - 1.00 mg/dL [facility] eGFR CKD-EPI CR 2020 64 >59 mL/min/1.7 3 [facility] BUN/Creatinine Ratio 17 12 - 28 [facility] Sodium 142 134 - 144 mmol/L [facility] Potassium 5.0 3.5 - 5.2 mmol/L [facility] Chloride 106 96 - 106 mmol/L [facility] Bicarbonate (CO2) 23 20 - 29 mmol/L [facility] Calcium 8.9 8.7 - 10.3 mg/dL [facility] Albumin 3.9 3.9 - 4.9 g/dL [facility] Phosphorus 3.9 3.0 - 4.3 mg/dL [facility] Blood (Blood, Venous) 05/05/2024 9:18 AM EST 05/05/2024 Barry Reyes MD LAB BLOOD ORDERABLES Final Re sult Performing Organization Address City/[facility]/ZIP Co de Phone Number [facility] [address] [place] [address] * (ABNORMAL) Ferritin (05/05/2024 9:18 AM EST) Ferritin 282(H) 15 - 150 ng/mL [facility] Blood (Blood, Venous) 05/05/2024 9:18 AM EST 05/05/2024 Barry Reyes MD LAB BLOOD ORDERABLES Final Re sult Performing Organization Address [facility] Co de Phone Number [facility] [address] [place] [address] * Iron Panel (Fe, TIBC, TSAT) (05/05/2024 9:18 AM EST) TIBC 277 250 - 450 ug/dL [facility] UIBC 210 118 - 369 ug/dL [facility] Iron 67 27 - 139 ug/dL [facility] Iron Saturation (TSat) 24 15 - 55 % [facility] Blood (Blood, Venous) 05/05/2024 9:18 AM EST 05/05/2024 Barry Reyes MD LAB BLOOD ORDERABLES Final Re sult Performing Organization Address City/[facility]/ZIP Co de Phone Number [facility] [address] [place] [address] * (ABNORMAL) CBC and Differential (05/05/2024 9:18 AM EST) [facility] Signature WBC 5.6 3.4 - 10.8 x10E3/uL [facility] RBC 5.33(H) 3.77 - 5.28 x10E6/uL [facility] Hemoglobin 10.2(L) 11.1 - 15.9 g/dL [facility] Hematocrit 35.0 34.0 - 46.6 % [facility] MCV 66(L) 79 - 97 fL [facility] MCH 19.1(L) 26.6 - 33.0 pg [facility] MCHC 29.1(L) 31.5 - 35.7 g/dL [facility] RDW 20.1(H) 11.7 - 15.4 % [facility] Platelets 163 150 - 450 x10E3/uL [facility] Neutrophils Relative 64 Not Estab. % [facility] Lymphocytes Relative 26 Not Estab. % [facility] Monocytes 6 Not Estab. % [facility] Eosinophils Relative 3 Not Estab. % [facility] Basophils Relative 1 Not Estab. % [facility] Neutrophils Absolute 3.6 1.4 - 7.0 x10E3/uL [facility] Lymphocytes Absolute 1.5 0.7 - 3.1 x10E3/uL [facility] Monocytes Absolute 0.3 0.1 - 0.9 x10E3/uL [facility] Eosinophils Absolute 0.2 0.0 - 0.4 x10E3/uL [facility] Basophils Absolute 0.0 0.0 - 0.2 x10E3/uL [facility] Immature Granulocytes 0 Not Estab. % [facility] Immature Grans (Absolute) 0.0 0.0 - 0.1 x10E3/uL [facility] Blood (Blood, Venous) 05/05/2024 9:18 AM EST 05/05/2024 us Barry Reyes MD LAB BLOOD ORDERABLES Final Re sult [facility] [address] [place] [address] documented in this encounter Visit Diagnoses Diagnosis Chronic kidney disease, stage 2 (mild) Anemia in chronic kidney disease Iron deficiency anemia, not otherwise specified documented in this encounter Care Teams Highballer Relationship Specialty [place] [address] [place] [address] PCP - General Internal Medicine 10/28/22 documented as of this encounter
--- OUTSIDE RECORDS SUMMARY | 2024-09-18 09:41 | XMS_ITS | Encounter Summary ---
Author Organization [facility] Address [address] [place] [address] Phone Care Team Providers Care Race Relations Adviser Name Role Phone Sahra Son MD Primary Care Provider + Encounter Details Date Type Department Care Team (Late Contact Info) Description 05/17/2023 Orders Only [facility] [address] [place] [address] Arlene Alston PA Chronic kidney [...] Visit [facility] [address] [place] [address] Barry Reyes MD [address] [place] [address] [place] [address] documented as of this [...] [facility] Iron 49 (30-160) MCG/DL [facility] UIBC 246 (110-370) MCG/DL [facility] TIBC 295 (140-530) MCG/DL [facility] Iron Saturation (TSat) 17(L) (20-55) % [facility] Comment: Testing performed or reported by [facility], a Service of [address] [address] Luis A Bailey MD, Field Assessor CLIA# [id number] Blood (Blood, Venous) 06/08/2023 8:36 AM EST 06/08/2023 8:39 AM EST Arlene CARTER LAB BLOOD ORDERABLES Final Re sult Performing Organization Address [facility] de Phone Number [facility] * Vitamin D 25 hydroxy (06/08/2023 8:36 AM EST) Pathologist [facility] Vitamin D, 25-Hydroxy 24.8 (20-50) NG/ML [facility] Comment: Testing performed or reported by [facility], a Service of [address] [address] Luis A Bailey MD, Field Assessor CLIA# [id number] Blood (Blood, Venous) 06/08/2023 8:36 AM EST 06/08/2023 8:39 AM EST Arlene CARTER LAB BLOOD ORDERABLES Final Re sult Performing Organization Address [facility] de Phone Number [facility] * (ABNORMAL) Renal function panel (06/08/2023 8:36 AM EST) Glucose 166(H) (70-99) MG/DL [facility] BUN 19 (8-23) MG/DL [facility] Creatinine 1.0 (0.5-1.0) MG/DL [facility] Sodium 138 (133-145) MMOL/L [facility] Potassium 4.9 (3.6-5.2) MMOL/L [facility] Chloride 101 (98-107) MMOL/L [facility] Bicarbonate (CO2) 27 (22-29) MMOL/L [facility] Anion Gap 10 (4-17) [facility] Albumin 4.2 (3.4-4.8) GM/DL [facility] Calcium 9.1 (8.6-10.5) MG/DL [facility] Phosphorus, Serum 3.4 (2.5-4.5) MG/DL [facility] Est GFR Non 66 ML/MIN/1.7 3 M2 [facility] Comment: Creatinine based estimated glomerular filtration (eGFR) in adults is calculated using the National Kidney Foundation recommended 2020 CKD-EPI equation. Estimates GFR from serum creatinine, age and sex. Testing performed or reported by [facility], a Service of [address] [address] Luis A Bailey MD, Field Assessor CLIA# [id number] Blood (Blood, Venous) 06/08/2023 8:36 AM EST 06/08/2023 8:39 AM EST Arlene CARTER LAB BLOOD ORDERABLES Final Re sult Performing Organization Address [facility] de Phone Number [facility] * Magnesium (06/08/2023 8:36 AM EST) Magnesium 2.1 (1.6-2.3) mg/dL [facility] Comment: Testing performed or reported by [facility], a Service of [facility], [address] [place] [address] Luis A Bailey MD, Field Assessor CLIA# [id number] Blood (Blood, Venous) 06/08/2023 8:36 AM EST 06/08/2023 8:39 AM EST Arlene CARTER LAB BLOOD ORDERABLES Final Re sult Performing Organization Address [facility] de Phone Number [facility] * (ABNORMAL) Hemoglobin A1c (06/08/2023 8:36 AM EST) Hemoglobin A1C 7.2(H) (4.0-5.6) % [facility] Comment: MONITORING: In known diabetic patients, hemoglobin A1c targets should be discussed with health care provider. DIAGNOSTIC USE: ??The [place] Diabetes Association (ADA) and the World Health [...] [facility], a Service of [facility], [address] [place] [address] Luis A Bailey MD, Field Assessor [facility]# [id number] Blood (Blood, Venous) 06/08/2023 8:36 AM EST 06/08/2023 8:38 AM EST us Arlene CARTER LAB BLOOD ORDERABLES Final Re sult [facility] * (ABNORMAL) CBC and differential (06/08/2023 8:36 AM EST) White Blood Cells 5.2 (4.0-11.0 ) K/MM3 [facility] RBC 5.08 (4.20-5.4 0) M/MM3 [facility] Hgb 10.1(L) (11.7-15. 5) GM/DL [facility] Hematocrit 32.9(L) (35.7-45. 8) % [facility] MCV 64.8(L) (80.0-100 .0) [place] [facility] MCH 19.9(L) (27.0-34. 0) PG [facility] MCHC 30.7(L) (33.0-37. 0) g/dL [facility] Platelets 191 (150-460) K/MM3 [facility] RDW-SD 40.3 (<47.0) [place] [facility] MPV NOT MEASURED (9.4-12.4 ) [place] [facility] nRBC Count 0.0 #/100 WBC'S [facility] NRBC Absolute 0.0 K/MM3 [facility] Neutrophils Abs Auto 3.5 (1.3-7.0) K/MM3 [facility] Lymphocytes Relative 1.3 (0.8-3.1) K/MM3 [facility] Monocytes 0.3(L) (0.4-0.9) K/MM3 [facility] Eosinophils Relative 0.1 (0.0-0.4) K/MM3 [facility] Basophil ABS 0.0 (0.0-0.1) K/MM3 [facility] Granulocytes Absolute 0.0 K/MM3 [facility] Neutrophils % Auto 67.3 (44-76) % [facility] Lymphs 24.0 (15-43) % [facility] Monocytes Absolute 5.8 (4.5-10.5 ) % [facility] Eosinophils 1.7 (0-6) % [facility] Basophils Relative 0.8 (0-2) % [facility] Immature Granulocytes 0.4 % [facility] Comment: Testing performed or reported by [facility], a Service of [facility], [address] [place] [address] Luis A Bailey MD, Field Assessor [facility]# [id number] Blood (Blood, Venous) 06/08/2023 8:36 AM EST 06/08/2023 8:38 AM EST Arlene CARTER LAB BLOOD ORDERABLES Final Re sult [facility] documented in this encounter Visit Diagnoses Diagnosis Chronic kidney disease, stage 2 (mild) Essential (primary) hypertension Anemia in chronic kidney disease Antiphospholipid syndrome (HCC) Type 2 diabetes mellitus, not otherwise specified (HCC) Bleeding hemorrhoids documented in this encounter Care Teams Race Relations Adviser Relationship Specialty Start Date End Date Sahra Son MD [address] [address] PCP - General Internal Medicine 10/28/22 documented as of this encounter
--- OUTSIDE RECORDS SUMMARY | 2024-09-18 09:41 | XMS_ITS | Encounter Summary ---
Author Organization [facility] Address [address] [place] [address] Phone Care Team Providers Care Framework Developer Name Role Phone Sahra Son MD Primary Care Provider + Encounter Details Date Type Department Care Team ([facility] Contact Info) Description 07/16/2023 Documentation Only [facility] [address] [place] [address] India Davalos [address] [place] [address] Social History Tobacco Use Types [...] [facility] [address] [place] [address] Barry Reyes MD [address] [place] [address] [place] [address] documented as of this encounter Visit Diagnoses Not on filedocumented in this encounter Care Teams Framework Developer Relationship Specialty Start Date End Date Sahra Son MD [address] [address] PCP - General Internal Medicine 10/28/22 documented as of this encounter
--- OUTSIDE RECORDS SUMMARY | 2024-09-18 09:41 | XMS_ITS | Encounter Summary ---
Author Organization [facility] Address [address] [place] [address] Care Team Providers Care Whale Trainer Name Role Phone Vinnie Santizo Primary Care Provider Sahra Keith MD Primary Care Provider Marko Fernandez MD Unavailable [phone] Encounter Details Date Type Department Care Team Description 07/24/2022 [facility] Medical Records [address] [place] [id number] Social History Tobacco Use Types Packs/Day Years [...] on filedocumented in this encounter Care Teams Whale Trainer Relationship Specialty Start Date End Date Vinnie Santizo PCP - General Internal Medicine 03/30/17 08/30/22 Sahra Son MD PCP - General Internal Medicine 08/31/22 Marko Spaulding MD Specialist Cardiology 09/23/22 documented as of this encounter
--- OUTSIDE RECORDS SUMMARY | 2024-09-18 09:41 | XMS_ITS | Encounter Summary ---
Author Organization [facility] Address [address] [place] [address] Phone Care Team Providers Care Auto Body Repairer Name Role Phone Sahra Son MD Primary Care Provider + Encounter Details Date Type Department Care Team ([facility] Contact Info) Description 08/27/2021 Documentation Only [facility] [address] [place] [address] India Davalos [address] [place] [address] Social History Tobacco Use Types [...] [facility] [address] [place] [address] Barry Reyes MD [address] [place] [address] [place] [address] documented as of this encounter Visit Diagnoses Not on filedocumented in this encounter Care Teams Auto Body Repairer Relationship Specialty Start Date End Date Sahra Son MD [address] [address] PCP - General Internal Medicine 10/28/22 documented as of this encounter
--- OUTSIDE RECORDS SUMMARY | 2024-09-18 09:41 | XMS_ITS | Encounter Summary ---
Author Organization [facility] Address [address] [place] [address] Phone Care Team Providers Care Pediatric Orthodontist Name Role Phone Sahra Son MD Primary Care Provider + Encounter Details Date Type Department Care Team ([facility] Contact Info) Description 12/24/2022 Documentation Only [facility] [address] [place] [address] Carol Whelan [address] [place] [address] Social History Tobacco [...] Transplant [facility] [address] [place] [address] Barry Reyes MD [address] [place] [address] documented as of this encounter Visit Diagnoses Not on filedocumented in this encounter Care Teams Pediatric Orthodontist Relationship Specialty Start Date End Date Sahra Son MD [address] [address] PCP - General Internal Medicine 10/28/22 documented as of this encounter
--- OUTSIDE RECORDS SUMMARY | 2024-09-18 09:41 | XMS_ITS | Encounter Summary ---
Author Organization [facility] Address [address] [place] [address] Phone Care Team Providers Care Manager Of Financial Name Role Phone Sahra Son MD Primary Care Provider + Encounter Details Date Type Department Care Team (Late Contact Info) Description 05/26/2024 Orders Only [facility] [address] [place] [address] India Davalos [address] [place] [address] Chronic kidney disease, stage 2 [...] Visit [facility] [address] [address] Barry Reyes MD [address] [place] [address] [place] [address] documented as of this encounter [...] Glucose 168(H) 70 - 99 mg/dL [facility] BUN 17 8 - 27 mg/dL [facility] Creatinine 1.09(H) 0.57 - 1.00 mg/dL [facility] eGFR CKD-EPI CR 2020 57(L) >59 mL/min/1.7 3 [facility] BUN/Creatinine Ratio 16 12 - 28 [facility] Sodium 137 134 - 144 mmol/L [facility] Potassium 4.8 3.5 - 5.2 mmol/L [facility] Chloride 99 96 - 106 mmol/L [facility] Bicarbonate (CO2) 23 20 - 29 mmol/L [facility] Calcium 9.0 8.7 - 10.3 mg/dL [facility] Albumin 4.2 3.9 - 4.9 g/dL [facility] Phosphorus 4.4(H) 3.0 - 4.3 mg/dL [facility] Blood (Blood, Venous) 06/07/2024 11:53 AM EST 06/07/2024 Barry Reyes MD LAB BLOOD ORDERABLES Final Re sult Performing Organization Address City/[facility]/ZIP Co de Phone Number [facility] [address] [place] [address] * Ferritin (06/07/2024 11:53 AM EST) Ferritin 102 15 - 150 ng/mL [facility] Blood (Blood, Venous) 06/07/2024 11:53 AM EST 06/07/2024 Barry Reyes MD LAB BLOOD ORDERABLES Final Re sult Performing Organization Address [facility] de Phone Number [facility] [address] [place] [address] * Iron Panel (Fe, TIBC, TSAT) (06/07/2024 11:53 AM EST) TIBC 262 250 - 450 ug/dL [facility] UIBC 205 118 - 369 ug/dL [facility] Iron 57 27 - 139 ug/dL [facility] Iron Saturation (TSat) 22 15 - 55 % [facility] Blood (Blood, Venous) 06/07/2024 11:53 AM EST 06/07/2024 Barry Reyes MD LAB BLOOD ORDERABLES Final Re sult Performing Organization Address City/[facility]/ZIP Co de Phone Number [facility] [address] [place] [address] * (ABNORMAL) CBC and Differential (06/07/2024 11:53 AM EST) [facility] WBC 5.5 3.4 - 10.8 x10E3/uL [facility] RBC 5.76(H) 3.77 - 5.28 x10E6/uL [facility] Hemoglobin 11.1 11.1 - 15.9 g/dL [facility] Hematocrit 38.4 34.0 - 46.6 % [facility] MCV 67(L) 79 - 97 fL [facility] MCH 19.3(L) 26.6 - 33.0 pg [facility] MCHC 28.9(L) 31.5 - 35.7 g/dL [facility] RDW 18.8(H) 11.7 - 15.4 % [facility] Platelets 162 150 - 450 x10E3/uL [facility] Neutrophils Relative 59 Not Estab. % [facility] Lymphocytes Relative 31 Not Estab. % [facility] Monocytes 6 Not Estab. % [facility] Eosinophils Relative 2 Not Estab. % [facility] Basophils Relative 1 Not Estab. % [facility] Neutrophils Absolute 3.3 1.4 - 7.0 x10E3/uL [facility] Lymphocytes Absolute 1.7 0.7 - 3.1 x10E3/uL [facility] Monocytes Absolute 0.3 0.1 - 0.9 x10E3/uL [facility] Eosinophils Absolute 0.1 0.0 - 0.4 x10E3/uL [facility] Basophils Absolute 0.0 0.0 - 0.2 x10E3/uL [facility] Immature Granulocytes 1 Not Estab. % [facility] Immature Grans (Absolute) 0.0 0.0 - 0.1 x10E3/uL [facility] Blood (Blood, Venous) 06/07/2024 11:53 AM EST 06/07/2024 us Barry Reyes MD LAB BLOOD ORDERABLES Final Re sult [facility] [address] [place] [address] documented in this encounter Visit Diagnoses Diagnosis Chronic kidney disease, stage 2 (mild) Anemia in chronic kidney disease Iron deficiency anemia, not otherwise specified documented in this encounter Care Teams Manager Of Financial Relationship Specialty [place] [address] [place] [address] PCP - General Internal Medicine 10/28/22 documented as of this encounter
--- OUTSIDE RECORDS SUMMARY | 2024-09-18 09:41 | XMS_ITS | Encounter Summary ---
Author Organization [facility] Address [address] [place] [address] Phone Care Team Providers Care Environmental Services Attendant Name Role Phone Sahra Son MD Primary Care Provider + Encounter Details Date Type Department Care Team ([facility] Contact Info) Description 08/05/2023 Documentation Only [facility] [address] [place] [address] India Davalos [address] [place] [address] Social History Tobacco Use Types [...] [facility] [address] [place] [address] Barry Reyes MD [address] [place] [address] [place] [address] documented as of this encounter Visit Diagnoses Not on filedocumented in this encounter Care Teams Environmental Services Attendant Relationship Specialty Start Date End Date Sahra Son MD [address] [address] PCP - General Internal Medicine 10/28/22 documented as of this encounter
--- OUTSIDE RECORDS SUMMARY | 2024-09-18 09:41 | XMS_ITS | Encounter Summary ---
Author Organization [facility] Address [address] [place] [address] Care Team Providers Care Horse Stud Worker Name Role Phone Vinnie Santizo Primary Care Provider Sahra Keith MD Primary Care Provider Marko Fernandez MD Unavailable [phone] Encounter Details Date Type Department Care Team Description 05/28/2022 SCAN Medical Records [address] [place] [id number] Abstract, Provider Social History Tobacco Use Types [...] on filedocumented in this encounter Care Teams Horse Stud Worker Relationship Specialty Start Date End Date Vinnie Santizo PCP - General Internal Medicine 03/30/17 08/30/22 Sahra Son MD PCP - General Internal Medicine 08/31/22 Marko Spaulding MD Specialist Cardiology 09/23/22 documented as of this encounter
--- OUTSIDE RECORDS SUMMARY | 2024-09-18 09:41 | XMS_ITS | Encounter Summary ---
Author Organization [facility] Address [address] [place] [address] Phone Care Team Providers Care Machine Maintenance Supervisor Name Role Phone Sahra Son MD Primary Care Provider + Encounter Details Date Type Department Care Team (Late Contact Info) Description 08/04/2024 Orders Only [facility] [address] [address] India Davalos [address] [place] [address] Anemia in chronic kidney disease; [...] Of [facility] [address] [place] [address] Barry Reyes MD [address] [place] [address] [place] [address] documented as of this encounter [...] Glucose 168(H) 70 - 99 mg/dL [facility] BUN 15 8 - 27 mg/dL [facility] Creatinine 0.93 0.57 - 1.00 mg/dL [facility] eGFR CKD-EPI CR 2020 69 >59 mL/min/1.7 3 [facility] BUN/Creatinine Ratio 16 12 - 28 [facility] Sodium 139 134 - 144 mmol/L [facility] Chloride 103 96 - 106 mmol/L [facility] Bicarbonate (CO2) 24 20 - 29 mmol/L [facility] Calcium 8.8 8.7 - 10.3 mg/dL [facility] Phosphorus 3.8 3.0 - 4.3 mg/dL [facility] Albumin 4.1 3.9 - 4.9 g/dL [facility] Potassium 4.8 3.5 - 5.2 mmol/L [facility] Blood (Blood, Venous) 08/07/2024 8:15 AM EDT 08/07/2024 Barry Reyes MD LAB BLOOD ORDERABLES Final Re sult Performing Organization Address [facility]/ZIP Co de Phone Number [facility] [address] [place] [address] * Ferritin (08/07/2024 8:15 AM EDT) Ferritin 55 15 - 150 ng/mL [facility] Blood (Blood, Venous) 08/07/2024 8:15 AM EDT 08/07/2024 Barry Reyes MD LAB BLOOD ORDERABLES Final Re sult Performing Organization Address [facility] de Phone Number [facility] [address] [place] [address] * (ABNORMAL) Iron Panel (Fe, TIBC, TSAT) (08/07/2024 8:15 AM EDT) TIBC 290 250 - 450 ug/dL [facility] UIBC 251 118 - 369 ug/dL [facility] Iron 39 27 - 139 ug/dL [facility] Iron Saturation (TSat) 13(L) 15 - 55 % [facility] Blood (Blood, Venous) 08/07/2024 8:15 AM EDT 08/07/2024 Barry Reyes MD LAB BLOOD ORDERABLES Final Re sult Performing Organization Address [facility] Co de Phone Number [facility] [address] [place] [address] * (ABNORMAL) CBC and Differential (08/07/2024 8:15 AM EDT) [facility] WBC 5.6 3.4 - 10.8 x10E3/uL [facility] RBC 5.41(H) 3.77 - 5.28 x10E6/uL [facility] Hemoglobin 10.7(L) 11.1 - 15.9 g/dL [facility] Hematocrit 36.1 34.0 - 46.6 % [facility] MCV 67(L) 79 - 97 fL [facility] MCH 19.8(L) 26.6 - 33.0 pg [facility] MCHC 29.6(L) 31.5 - 35.7 g/dL [facility] RDW 18.9(H) 11.7 - 15.4 % [facility] Platelets 171 150 - 450 x10E3/uL [facility] Neutrophils Relative 65 Not Estab. % [facility] Lymphocytes Relative 25 Not Estab. % [facility] Monocytes 6 Not Estab. % [facility] Eosinophils Relative 3 Not Estab. % [facility] Basophils Relative 1 Not Estab. % [facility] Neutrophils Absolute 3.6 1.4 - 7.0 x10E3/uL [facility] Lymphocytes Absolute 1.4 0.7 - 3.1 x10E3/uL [facility] Monocytes Absolute 0.4 0.1 - 0.9 x10E3/uL [facility] Eosinophils Absolute 0.2 0.0 - 0.4 x10E3/uL [facility] Basophils Absolute 0.0 0.0 - 0.2 x10E3/uL [facility] Immature Granulocytes 0 Not Estab. % [facility] Immature Grans (Absolute) 0.0 0.0 - 0.1 x10E3/uL [facility] Blood (Blood, Venous) 08/07/2024 8:15 AM EDT 08/07/2024 us Barry Reyes MD LAB BLOOD ORDERABLES Final Re sult [facility] [address] [place] [address] documented in this encounter Visit Diagnoses Diagnosis Anemia in chronic kidney disease Other iron deficiency anemia Chronic kidney disease, stage 2 (mild) documented in this encounter Care Teams Machine Maintenance Supervisor Relationship Specialty Start Date End Date Sahra Son MD [address] [place] [address] PCP - General Internal Medicine 10/28/22 documented as of this encounter
--- OUTSIDE RECORDS SUMMARY | 2024-09-18 09:41 | XMS_ITS | Encounter Summary ---
Author Organization [facility] Address [address] [place] [address] Phone Care Team Providers Care Flavoring Machine Operator Name Role Phone Sahra Son MD Primary Care Provider + Encounter Details Date Type Department Care Team ([facility] Contact Info) Description 10/30/2022 Documentation Only [facility] [address] [place] [address] India Davalos [address] [place] [address] Social History Tobacco Use Types [...] Care Team ([facility] Contact Info) Description 11/23/2024 12:50 PM EDT Office Visit [facility] [address] [place] [address] Barry Reyes MD [address] [place] [address] [place] [address] documented as of this encounter Visit Diagnoses Not on filedocumented in this encounter Care Teams Flavoring Machine Operator Relationship Specialty Start Date End Date Sahra Son MD [address] [address] PCP - General Internal Medicine 10/28/22 documented as of this encounter
--- OUTSIDE RECORDS SUMMARY | 2024-09-18 09:41 | XMS_ITS | Encounter Summary ---
Author Organization [facility] Address [address] [place] [address] Phone Care Team Providers Care Helium Arc Welder Name Role Phone Sahra Son MD Primary Care Provider + Encounter Details Date Type Department Care Team ([facility] Contact Info) Description 04/05/2024 Documentation Only [facility] [address] [place] [address] India Davalos [address] [place] [address] Social History Tobacco Use Types [...] Date Type Department Care Team ([facility] Contact Info) Description 11/23/2024 12:50 PM EDT Office Visit [facility] [address] [place] [address] Barry Reyes MD [address] [place] [address] [place] [address] documented as of this encounter Visit Diagnoses Not on filedocumented in this encounter Care Teams Helium Arc Welder Relationship Specialty Start Date End Date Sahra Son MD [address] [address] PCP - General Internal Medicine 10/28/22 documented as of this encounter
--- OUTSIDE RECORDS SUMMARY | 2024-09-18 09:41 | XMS_ITS | Clinical Summary ---
Author Organization [facility] [place], Address [address] [place] [address] [place] [address] Phone Care Team Providers Care Interior Decorator Paperhanging Name Role Phone Sahra Son MD Primary Care Provider + Allergies Active Allergy Reactions Criticality Noted Date Comments Codeine 12/26/2012 Ferumoxytol Shortness of breath,Itching,Other (see comments) High 02/27/2022 Bones hurt Iodinated Contrast Media 07/06/2022 Penicillins 12/26/2012 Other Shellfish Allergy 12/26/2012 Tramadol 07/06/2022 Trazodone 03/08/2018 Iron Sucrose 02/29/2024 Coughing fit infusion stopped at [facility] Medications Cymbalta [address] capsule TK 2 CS PO QAM 12/28/19 20 Active LORazepam (ATIVAN) 1 MG tablet TK 1 T PO BID 12/24/19 20 Active meclizine (ANTIVERT) 25 MG tablet TK 1 T PO TID PRN 12/24/19 20 Active montelukast (SINGULAIR) 10 MG tablet TK 1 T PO QD IN THE DARCY 11/19/19 20 Active Creon 14480-59156 units capsule TK ONE C PO TID [...] Encounters Date Type Department Care Team Description 09/15/2024 Orders Only [facility] [place], [address] [place] [address] India Davalos Chronic kidney disease, stage 2 (mild); Anemia in chronic kidney disease; Iron deficiency anemia, not otherwise specified 09/01/2024 Orders Only [facility] [place], [address] [place] [address] AnoopGarry rhodesica Anemia in chronic kidney disease; Other iron deficiency anemia; Chronic kidney disease, stage 2 (mild) 08/28/2024 Documentation Only [facility] [address] [place] [address] Anoop, [place] 08/25/2024 Documentation Only [facility] [address] [place] [address] Anoop, [place] 08/24/2024 Documentation Only [facility] [address] [place] [address] Anoop, [place] 08/24/2024 Refill [facility] [address] [place] [address] Anoop, [place] 08/23/2024 Refill [facility] [address] [place] [address] Anoop, [place] 08/23/2024 Refill [facility] [address] [place] [address] Anoop, [place] 08/18/2024 Office Communication [facility] [place] [facility] [address] [place] [address] Stephanie Azul, RN 08/18/2024 Orders Only [facility] [address] [place] [address] Anoop, [place] Chronic kidney disease, stage 2 (mild); Anemia in chronic kidney disease; Iron deficiency anemia, not otherwise specified 08/04/2024 Orders Only [facility] [address] [place] [address] AnoopIndia rhodes Anemia in chronic kidney disease; Other iron deficiency anemia; Chronic kidney disease, stage 2 (mild) 07/21/2024 Orders Only [facility] [address] [place] [address] India Davalos Chronic kidney disease, stage 2 (mild); Anemia in chronic kidney disease; Iron deficiency anemia, not otherwise specified 07/07/2024 Orders Only [facility] [address] [place] [address] India Davalos Anemia in chronic kidney disease; Other iron deficiency anemia; Chronic kidney disease, stage 2 (mild) 06/23/2024 Orders Only [facility] [address] [place] [address] India Davalos Chronic kidney disease, stage 2 [...] Visit [facility] [place], [address] [place] [address] Barry Reyes MD [address] [place] [address] Health Maintenance Due Date Last Done Comments [...] of2 resultswithin the time period is included. [facility] TIBC 323 250 - 450 ug/dL [facility] UIBC 286 118 - 369 ug/dL [facility] Iron 37 27 - 139 ug/dL [facility] Iron Saturation (TSat) 11(L) 15 - 55 % [facility] Blood (Blood, Venous) 09/06/2024 8:15 AM EDT 09/06/2024 us Barry Reyes MD LAB BLOOD ORDERABLES Final Re sult [facility] [address] [place] [address] * (ABNORMAL) CBC and Differential (09/06/2024 8:15 AM EDT) Only the most recent of2 resultswithin the time period is included. [facility] WBC 6.3 3.4 - 10.8 x10E3/uL [facility] RBC 5.35(H) 3.77 - 5.28 x10E6/uL [facility] Hemoglobin 10.6(L) 11.1 - 15.9 g/dL [facility] Hematocrit 35.8 34.0 - 46.6 % [facility] MCV 67(L) 79 - 97 fL [facility] MCH 19.8(L) 26.6 - 33.0 pg [facility] MCHC 29.6(L) 31.5 - 35.7 g/dL [facility] RDW 18.4(H) 11.7 - 15.4 % [facility] Platelets 190 150 - 450 x10E3/uL [facility] Neutrophils Relative 67 Not Estab. % [facility] Lymphocytes Relative 22 Not Estab. % [facility] Monocytes 6 Not Estab. % [facility] Eosinophils Relative 3 Not Estab. % [facility] Basophils Relative 1 Not Estab. % [facility] Neutrophils Absolute 4.3 1.4 - 7.0 x10E3/uL [facility] Lymphocytes Absolute 1.4 0.7 - 3.1 x10E3/uL [facility] Monocytes Absolute 0.4 0.1 - 0.9 x10E3/uL [facility] Eosinophils Absolute 0.2 0.0 - 0.4 x10E3/uL [facility] Basophils Absolute 0.1 0.0 - 0.2 x10E3/uL [facility] Immature Granulocytes 1 Not Estab. % [facility] Immature Grans (Absolute) 0.1 0.0 - 0.1 x10E3/uL [facility] Blood (Blood, Venous) 09/06/2024 8:15 AM EDT 09/06/2024 Barry Reyes MD LAB BLOOD ORDERABLES Final Re sult [facility] [address] [place] [address] * Ferritin (09/06/2024 8:15 AM EDT) Only the most recent of2 resultswithin the time period is included. Ferritin 37 15 - 150 ng/mL [facility] Blood (Blood, Venous) 09/06/2024 8:15 AM EDT 09/06/2024 Barry Reyes MD LAB BLOOD ORDERABLES Final Re sult [facility] [address] [place] [address] * (ABNORMAL) Renal Function Panel (09/06/2024 8:15 AM EDT) Only the most recent of2 resultswithin the time period is included. Glucose 233(H) 70 - 99 mg/dL [facility] BUN 15 8 - 27 mg/dL [facility] Creatinine 1.01(H) 0.57 - 1.00 mg/dL [facility] eGFR CKD-EPI CR 2020 62 >59 mL/min/1.7 3 [facility] BUN/Creatinine Ratio 15 12 - 28 [facility] Sodium 138 134 - 144 mmol/L [facility] Potassium 4.9 3.5 - 5.2 mmol/L [facility] Chloride 101 96 - 106 mmol/L [facility] Bicarbonate (CO2) 19(L) 20 - 29 mmol/L [facility] Calcium 9.1 8.7 - 10.3 mg/dL [facility] Albumin 4.2 3.9 - 4.9 g/dL [facility] Phosphorus 3.8 3.0 - 4.3 mg/dL [facility] Blood (Blood, Venous) 09/06/2024 8:15 AM EDT 09/06/2024 Barry Reyes MD LAB BLOOD ORDERABLES Final Re sult [facility] [address] [place] [phone] * (ABNORMAL) Hemoglobin A1c (06/08/2023 8:36 AM EST) Hemoglobin A1C 7.2(H) (4.0-5.6) % [facility] Comment: MONITORING: In known diabetic patients, hemoglobin A1c targets should be discussed with health care provider. DIAGNOSTIC USE: ??The [place] Diabetes Association (ADA) and the World Health [...] Supplement 1 Testing performed or reported by [facility], a Service of [facility], [address] [place] [address] Luis A Bailey MD, Clinical Care Leader [facility]# [id number] Blood (Blood, Venous) 06/08/2023 8:36 AM EST 06/08/2023 8:38 AM EST Arlene CARTER LAB BLOOD ORDERABLES Final Re sult [facility] from Last 3 Months or Most Recently Relevant to Health Maintenance Insurance [id number] One [employer] Dual SNP ([id number]) [place] MANCINI [id number] Care Teams Interior Decorator Paperhanging Relationship Specialty Start Date End Date Sahra Son MD [address] [place] [address] PCP - General Internal Medicine 10/28/22
--- OUTSIDE RECORDS SUMMARY | 2024-09-18 09:41 | XMS_ITS | Encounter Summary ---
Author Organization [facility] Address [address] [place] [address] Care Team Providers Care Stitcher Operator Name Role Phone Vinnie Santizo Primary Care Provider Sahra Keith MD Primary Care Provider Marko Fernandez MD Unavailable [phone] Encounter Details Date Type Department Care Team Description 07/30/2022 Mental Health Social Worker Report Medical Records [address] [place] [id number] Sahra Son MD Social History Tobacco Use [...] filedocumented in this encounter Care Teams Stitcher Operator Relationship Specialty Start Date End Date Vinnie Santizo PCP - General Internal Medicine 03/30/17 08/30/22 Sahra Son MD PCP - General Internal Medicine 08/31/22 Marko Spaulding MD Specialist Cardiology 09/23/22 documented as of this encounter
--- OUTSIDE RECORDS SUMMARY | 2024-09-18 09:41 | XMS_ITS | Encounter Summary ---
Author Organization [facility] Address [address] [place] [address] Phone Care Team Providers Care Operating Room Nurse Name Role Phone Sahra Son MD Primary Care Provider + Encounter Details Date Type Department Care Team (Late Contact Info) Description 09/01/2024 Orders Only [facility] [address] [place] [address] India Davalos [address] [place] [address] Anemia in chronic kidney disease; [...] Visit [facility] [address] [facility] [place] [address] Barry Reyes MD [address] [place] [address] [place] [address] documented as of this encounter [...] Glucose 233(H) 70 - 99 mg/dL [facility] BUN 15 8 - 27 mg/dL [facility] Creatinine 1.01(H) 0.57 - 1.00 mg/dL [facility] eGFR CKD-EPI CR 2020 62 >59 mL/min/1.7 3 [facility] BUN/Creatinine Ratio 15 12 - 28 [facility] Sodium 138 134 - 144 mmol/L [facility] Potassium 4.9 3.5 - 5.2 mmol/L [facility] Chloride 101 96 - 106 mmol/L [facility] Bicarbonate (CO2) 19(L) 20 - 29 mmol/L [facility] Calcium 9.1 8.7 - 10.3 mg/dL [facility] Albumin 4.2 3.9 - 4.9 g/dL [facility] Phosphorus 3.8 3.0 - 4.3 mg/dL [facility] Blood (Blood, Venous) 09/06/2024 8:15 AM EDT 09/06/2024 Barry Reyes MD LAB BLOOD ORDERABLES Final Re sult Performing Organization Address City/[facility]/ZIP Co de Phone Number [facility] [address] [place] [address] * Ferritin (09/06/2024 8:15 AM EDT) Ferritin 37 15 - 150 ng/mL [facility] Blood (Blood, Venous) 09/06/2024 8:15 AM EDT 09/06/2024 Barry Reyes MD LAB BLOOD ORDERABLES Final Re sult Performing Organization Address [facility] de Phone Number [facility] [address] [place] [address] * (ABNORMAL) Iron Panel (Fe, TIBC, TSAT) (09/06/2024 8:15 AM EDT) TIBC 323 250 - 450 ug/dL [facility] UIBC 286 118 - 369 ug/dL [facility] Iron 37 27 - 139 ug/dL [facility] Iron Saturation (TSat) 11(L) 15 - 55 % [facility] Blood (Blood, Venous) 09/06/2024 8:15 AM EDT 09/06/2024 Barry Reyes MD LAB BLOOD ORDERABLES Final Re sult Performing Organization Address City/[facility]/ZIP Co de Phone Number [facility] [address] [place] [address] * (ABNORMAL) CBC and Differential (09/06/2024 8:15 AM EDT) [facility] WBC 6.3 3.4 - 10.8 x10E3/uL [facility] RBC 5.35(H) 3.77 - 5.28 x10E6/uL [facility] Hemoglobin 10.6(L) 11.1 - 15.9 g/dL [facility] Hematocrit 35.8 34.0 - 46.6 % [facility] MCV 67(L) 79 - 97 fL [facility] MCH 19.8(L) 26.6 - 33.0 pg [facility] MCHC 29.6(L) 31.5 - 35.7 g/dL [facility] RDW 18.4(H) 11.7 - 15.4 % [facility] Platelets 190 150 - 450 x10E3/uL [facility] Neutrophils Relative 67 Not Estab. % [facility] Lymphocytes Relative 22 Not Estab. % [facility] Monocytes 6 Not Estab. % [facility] Eosinophils Relative 3 Not Estab. % [facility] Basophils Relative 1 Not Estab. % [facility] Neutrophils Absolute 4.3 1.4 - 7.0 x10E3/uL [facility] Lymphocytes Absolute 1.4 0.7 - 3.1 x10E3/uL [facility] Monocytes Absolute 0.4 0.1 - 0.9 x10E3/uL [facility] Eosinophils Absolute 0.2 0.0 - 0.4 x10E3/uL [facility] Basophils Absolute 0.1 0.0 - 0.2 x10E3/uL [facility] Immature Granulocytes 1 Not Estab. % [facility] Immature Grans (Absolute) 0.1 0.0 - 0.1 x10E3/uL [facility] Blood (Blood, Venous) 09/06/2024 8:15 AM EDT 09/06/2024 us Barry Reyes MD LAB BLOOD ORDERABLES Final Re sult [facility] [address] [place] [address] documented in this encounter Visit Diagnoses Diagnosis Anemia in chronic kidney disease Other iron deficiency anemia Chronic kidney disease, stage 2 (mild) documented in this encounter Care Teams Operating Room Nurse Relationship Specialty [place] [address] [place] [address] PCP - General Internal Medicine 10/28/22 documented as of this encounter
--- OUTSIDE RECORDS SUMMARY | 2024-09-18 09:41 | XMS_ITS | Encounter Summary ---
Author Organization [facility] Address [address] [place] [address] Phone Care Team Providers Care Signal Technician Name Role Phone Sahra Son MD Primary Care Provider + Encounter Details Date Type Department Care Team ([facility] Contact Info) Description 07/03/2021 Documentation Only [facility] [address] [place] [address] Juan Jose Li MD [address] [place] [address] [place] [address] Social History Tobacco Use Types [...] [facility] [address] [place] [address] Barry Reyes MD [address] [place] [address] [place] [address] documented as of this encounter Visit Diagnoses Not on filedocumented in this encounter Care Teams Signal Technician Relationship Specialty Start Date End Date Sahra Son MD [address] [address] PCP - General Internal Medicine 10/28/22 documented as of this encounter
--- OUTSIDE RECORDS SUMMARY | 2024-09-18 09:41 | XMS_ITS | Encounter Summary ---
Author Organization [facility] Address [address] [place] [address] Phone Care Team Providers Care Bucket Turner Name Role Phone Sahra Son MD Primary Care Provider + Encounter Details Date Type Department Care Team ([facility] Contact Info) Description 06/25/2021 Documentation Only [facility] [address] [place] [address] India Davalos [address] [place] [address] Social History Tobacco Use Types [...] [facility] [address] [place] [address] Barry Reyes MD [address] [place] [address] [place] [address] documented as of this encounter Visit Diagnoses Not on filedocumented in this encounter Care Teams Bucket Turner Relationship Specialty Start Date End Date Sahra Son MD [address] [address] PCP - General Internal Medicine 10/28/22 documented as of this encounter
--- OUTSIDE RECORDS SUMMARY | 2024-09-18 09:41 | XMS_ITS | Encounter Summary ---
Author Organization [facility] Address [address] [place] [address] Phone Care Team Providers Care Roto Mixer Operator Name Role Phone Sahra Son MD Primary Care Provider + Encounter Details Date Type Department Care Team ([facility] Contact Info) Description 08/22/2021 Documentation Only [facility] [address] [place] [address] India Davalos [address] [place] [address] Social History Tobacco Use Types [...] [facility] [address] [place] [address] Barry Reyes MD [address] [place] [address] [place] [address] documented as of this encounter Visit Diagnoses Not on filedocumented in this encounter Care Teams Roto Mixer Operator Relationship Specialty Start Date End Date Sahra Son MD [address] [address] PCP - General Internal Medicine 10/28/22 documented as of this encounter
--- OUTSIDE RECORDS SUMMARY | 2024-09-18 09:41 | XMS_ITS | Encounter Summary ---
Author Organization [facility] Address [address] [place] [address] Phone Care Team Providers Care Strapping Machine Tender Name Role Phone Sahra Son MD Primary Care Provider + Encounter Details Date Type Department Care Team (Late Contact Info) Description 09/15/2024 Orders Only [facility] [address] [place] [address] India Davalos [address] [place] [address] Chronic kidney disease, stage 2 [...] Visit [facility] [address] [place] [address] Barry Reyes MD [address] [facility] [place] [address] documented as of this encounter Visit Diagnoses Diagnosis Chronic kidney disease, stage 2 (mild) Anemia in chronic kidney disease Iron deficiency anemia, not otherwise specified documented in this encounter Care Teams Strapping Machine Tender Relationship Specialty Start Date End Date Sahra Son MD [facility] [place] [address] PCP - General Internal Medicine 10/28/22 documented as of this encounter
--- OUTSIDE RECORDS SUMMARY | 2024-09-18 09:41 | XMS_ITS | Encounter Summary ---
Author Organization [facility] Address [address] [place] [address] Phone Care Team Providers Care Department Mgr Name Role Phone Sahra Son MD Primary Care Provider + Encounter Details Date Type Department Care Team ([facility] Contact Info) Description 01/29/2023 Documentation Only [facility] [address] [place] [address] India Davalos [address] [place] [address] Social History Tobacco Use Types [...] [facility] [address] [place] [address] Barry Reyes MD [address] [place] [address] [place] [address] documented as of this encounter Visit Diagnoses Not on filedocumented in this encounter Care Teams Department Mgr Relationship Specialty Start Date End Date Sahra Son MD [address] [address] PCP - General Internal Medicine 10/28/22 documented as of this encounter
--- OUTSIDE RECORDS SUMMARY | 2024-09-18 09:41 | XMS_ITS | Encounter Summary ---
Author Organization [facility] [facility] Address [address] [place] [address] Care Team Providers Care Digital Service Engineer Name Role Phone Vinnie Santizo Primary Care Provider Sahra Keith MD Primary Care Provider Marko Fernandez MD Unavailable [phone] Encounter Details Date Type Department Care Team Description 11/11/2017 [facility] [address] [place] [address] Chela Solis MD Social History Tobacco Use [...] filedocumented in this encounter Care Teams Digital Service Engineer Relationship Specialty Start Date End Date Vinnie Santizo PCP - General Internal Medicine 03/30/17 08/30/22 Sahra Son MD PCP - General Internal Medicine 08/31/22 Marko Spaulding MD Specialist Cardiology 09/23/22 documented as of this encounter
--- OUTSIDE RECORDS SUMMARY | 2024-09-18 09:41 | XMS_ITS | Encounter Summary ---
Author Organization [facility] Address [address] [place] [address] Phone Care Team Providers Care Health Concierge Name Role Phone Sahra Son MD Primary Care Provider + Encounter Details Date Type Department Care Team ([facility] Contact Info) Description 02/01/2023 Documentation Only [facility] [address] [place] [address] India Davalos [address] [place] [address] Social History Tobacco Use Types [...] [facility] [address] [place] [address] Barry Reyes MD [address] [place] [address] [place] [address] documented as of this encounter Visit Diagnoses Not on filedocumented in this encounter Care Teams Health Concierge Relationship Specialty Start Date End Date Sahra Son MD [address] [address] PCP - General Internal Medicine 10/28/22 documented as of this encounter
--- OUTSIDE RECORDS SUMMARY | 2024-09-18 09:41 | XMS_ITS | Encounter Summary ---
Author Organization [facility] Address [address] [place] [address] Phone Care Team Providers Care Sql Analyst Name Role Phone Sahra Son MD Primary Care Provider + Encounter Details Date Type Department Care Team ([facility] Contact Info) Description 07/16/2023 Documentation Only [facility] [address] [place] [address] India Davalos [address] [place] [address] Social History Tobacco Use Types [...] [facility] [address] [place] [address] Barry Reyes MD [address] [place] [address] [place] [address] documented as of this encounter Visit Diagnoses Not on filedocumented in this encounter Care Teams Sql Analyst Relationship Specialty Start Date End Date Sahra Son MD [address] [address] PCP - General Internal Medicine 10/28/22 documented as of this encounter
--- OUTSIDE RECORDS SUMMARY | 2024-09-18 09:41 | XMS_ITS | Encounter Summary ---
Author Organization [facility] Address [address] [place] [address] Phone Care Team Providers Care Pick Up Name Role Phone Sahra Son MD Primary Care Provider + Encounter Details Date Type Department Care Team ([facility] Contact Info) Description 03/11/2023 Documentation Only [facility] [address] [place] [address] India Davalos [address] [place] [address] Social History Tobacco Use Types [...] [facility] [address] [place] [address] Barry Reyes MD [address] [place] [address] [place] [address] documented as of this encounter Visit Diagnoses Not on filedocumented in this encounter Care Teams Pick Up Relationship Specialty Start Date End Date Sahra Son MD [address] [address] PCP - General Internal Medicine 10/28/22 documented as of this encounter
--- OUTSIDE RECORDS SUMMARY | 2024-09-18 09:41 | XMS_ITS | Encounter Summary ---
Author Organization [facility] Address [address] [place] [address] Phone Care Team Providers Care Concert Promoter Name Role Phone Sahra Son MD Primary Care Provider + Encounter Details Date Type Department Care Team ([facility] Contact Info) Description 08/09/2023 Documentation Only [facility] [address] [place] [place] [address] India Davalos [address] [place] [address] Social History Tobacco Use Types [...] [facility] [address] [place] [place] [address] Barry Reyes MD [address] [place] [address] [place] [address] documented as of this encounter Visit Diagnoses Not on filedocumented in this encounter Care Teams Concert Promoter Relationship Specialty Start Date End Date Sahra Son MD [address] [address] PCP - General Internal Medicine 10/28/22 documented as of this encounter
--- OUTSIDE RECORDS SUMMARY | 2024-09-18 09:41 | XMS_ITS | Encounter Summary ---
Author Organization [facility] Address [address] [place] [address] Phone Care Team Providers Care Dry Curer Name Role Phone Sahra Son MD Primary Care Provider + Encounter Details Date Type Department Care Team ([facility] Contact Info) Description 10/07/2021 Documentation Only [facility] [address] [place] [address] India Davalos [address] [place] [address] Social History Tobacco Use [...] [facility] [address] [place] [address] Barry Reyes MD [address] [place] [address] [place] [address] documented as of this encounter Visit Diagnoses Not on filedocumented in this encounter Care Teams Dry Curer Relationship Specialty Start Date End Date Sahra Son MD [address] [address] PCP - General Internal Medicine 10/28/22 documented as of this encounter
--- OUTSIDE RECORDS SUMMARY | 2024-09-18 09:41 | XMS_ITS | Encounter Summary ---
Author Organization [email or web address] [facility] Address [address] [place] [address] Care Team Providers Care Associate Financial Advisor Name Role Phone Vinnie Santizo Primary Care Provider Sahra Keith MD Primary Care Provider Marko Fernandez MD Unavailable [phone] Encounter Details Date Type Department Care Team Description 08/13/2018 [facility] Medical Records [address] [place] [address] Social History Tobacco Use Types Packs/Day Years [...] on filedocumented in this encounter Care Teams Associate Financial Advisor Relationship Specialty Start Date End Date Vinnie Santizo PCP - General Internal Medicine 03/30/17 08/30/22 Sahra Son MD PCP - General Internal Medicine 08/31/22 Marko Spaulding MD Specialist Cardiology 09/23/22 documented as of this encounter
--- OUTSIDE RECORDS SUMMARY | 2024-09-18 09:41 | XMS_ITS | Encounter Summary ---
Author Organization [facility] Address [address] [place] [address] Phone Care Team Providers Care Coke Oven Mason Name Role Phone Sahra Son MD Primary Care Provider + Encounter Details Date Type Department Care Team ([facility] Contact Info) Description 01/29/2023 Documentation Only [facility] [address] [place] [address] India Davalos [address] [place] [address] Social History Tobacco Use Types [...] Visit [facility] [address] [place] [address] Barry Reyes MD [address] [place] [address] [place] [address] documented as of this encounter Visit Diagnoses Not on filedocumented in this encounter Care Teams Coke Oven Mason Relationship Specialty Start Date End Date Sahra Son MD [address] [address] PCP - General Internal Medicine 10/28/22 documented as of this encounter
--- OUTSIDE RECORDS SUMMARY | 2024-09-18 09:41 | XMS_ITS | Encounter Summary ---
Author Organization [facility] Address [address] [place] [address] Phone Care Team Providers Care Sales Enablement Specialist Name Role Phone Sahra Son MD Primary Care Provider + Encounter Details Date Type Department Care Team ([facility] Contact Info) Description 10/26/2022 Documentation Only [facility] [address] [place] [address] India Davalos [address] [place], [place] [...] Upcoming Encounters Date Type Department Care Team ([facility] Contact Info) Description 11/23/2024 12:50 PM EDT Office Visit [facility] [address] [place] [address] Barry Reyes MD [address] [place] [address] [place] [address] documented as of this encounter Visit Diagnoses Not on filedocumented in this encounter Care Teams Sales Enablement Specialist Relationship Specialty Start Date End Date Sahra Son MD [address] [address] PCP - General Internal Medicine 10/28/22 documented as of this encounter
--- OUTSIDE RECORDS SUMMARY | 2024-09-18 09:41 | XMS_ITS | Encounter Summary ---
Author Organization [facility] Address [address] [place] [address] Phone Care Team Providers Care Table Runner Name Role Phone Sahra Son MD Primary Care Provider + Encounter Details Date Type Department Care Team ([facility] Contact Info) Description 03/11/2023 Documentation Only [facility] [address] [place] [address] India Davalos [address] [place] [address] Social History Tobacco Use Types [...] Upcoming Encounters Date Type Department Care Team ([facility] Contact Info) Description 11/23/2024 12:50 PM EDT Office Visit [facility] [address] [place] [address] Barry Reyes MD [address] [place] [address] [place] [address] documented as of this encounter Visit Diagnoses Not on filedocumented in this encounter Care Teams Table Runner Relationship Specialty Start Date End Date Sahra Son MD [address] [address] PCP - General Internal Medicine 10/28/22 documented as of this encounter
--- OUTSIDE RECORDS SUMMARY | 2024-09-18 09:41 | XMS_ITS | Encounter Summary ---
Author Organization [facility] Address [address] [place] [address] Phone Care Team Providers Care Science Liaison Name Role Phone Sahra Son MD Primary Care Provider + Encounter Details Date Type Department Care Team ([facility] Contact Info) Description 04/05/2024 Documentation Only [facility] [address] [place] [address] India Davalos [address] [place] [address] Social History Tobacco Use Types [...] Upcoming Encounters Date Type Department Care Team ([facility] Contact Info) Description 11/23/2024 12:50 PM EDT Office Visit [facility] [address] [place] [address] Barry Reyes MD [address] [place] [address] [place] [address] documented as of this encounter Visit Diagnoses Not on filedocumented in this encounter Care Teams Science Liaison Relationship Specialty Start Date End Date Sahra Son MD [address] [address] PCP - General Internal Medicine 10/28/22 documented as of this encounter
--- OUTSIDE RECORDS SUMMARY | 2024-09-18 09:41 | XMS_ITS | Encounter Summary ---
Author Organization [facility] Address [address] [place] [address] Phone Care Team Providers Care Carbon Lamp Cleaner Name Role Phone Sahra Son MD Primary Care Provider + Encounter Details Date Type Department Care Team ([facility] Contact Info) Description 06/09/2023 Documentation Only [facility] [address] [place] [address] India Davalos [address] [place], [place] [...] [facility] [address] [place] [address] Barry Reyes MD [address] [place] [address] [place] [address] documented as of this encounter Visit Diagnoses Not on filedocumented in this encounter Care Teams Carbon Lamp Cleaner Relationship Specialty Start Date End Date Sahra Son MD [address] [address] PCP - General Internal Medicine 10/28/22 documented as of this encounter
--- OUTSIDE RECORDS SUMMARY | 2024-09-18 09:42 | XMS_ITS | Encounter Summary ---
Author Organization [employer] [facility] Address [address] [place] [address] Care Team Providers Care Associate Attorney Name Role Phone Tammie, Pcp Primary Care Provider Vinnie Rodriguez Primary Care Provider Sahra Keith MD Primary Care Provider Paula vailable Marko Spaulding MD Unavailable [phone] Encounter Details Date Type Department Care Team Description 02/12/2015 [facility] [address] [place] [address] Abstract, Provider Social History Tobacco Use Types [...] filedocumented in this encounter Care Teams Associate Attorney Relationship Specialty Start Date End Date Tammie, Pcp PCP - General Internal Medicine 07/24/13 03/29/17 Vinnie Santizo PCP - General Internal Medicine 03/30/17 08/30/22 Sahra Son MD PCP - General Internal Medicine 08/31/22 Marko Spaulding MD Specialist Cardiology 09/23/22 documented as of this encounter
--- OUTSIDE RECORDS SUMMARY | 2024-09-18 09:42 | XMS_ITS | Clinical Summary ---
Author Organization [facility] Address [address] [place] [address] Care Team Providers Care Cottage Attendant Name Role Phone Sahra Son MD Primary Care Provider Marko Fernandez MD Unavailable [phone] Allergies Active Allergy Reactions Severity Noted [...] 24 hr tablet 0 10/08/2022 Active Creon 63507-61445 units CAPSULE ENTERIC COATED PARTICLES TAKE 1 CAPSULE BY MOUTH BEFORE MEALS 0 09/20/2022 Active rabeprazole (ACIPHEX) 20 MG tablet Take 1 Tablet by mouth daily. 0 08/07/2022 Active Deep Sea Nasal Paden 0.65 % nasal spray INSTILL 2 DROPS [...] Myelofibrosis Meningioma Coronary artery disease Overview: Old [place] Gout Asthma Seizures Lupus Depression Hypercoagulable state Neurogenic bladder Overview: Indwelling flowers catheter Supplemental oxygen dependent COPD (chronic obstructive pulmonary dise ase) Family History Medical History Relation Name Comments ABLATION FOR AN ARRHYTHMIA Brother HEART DISEASE Father Hypertension Father [place] Father Diabetes Mother MALIGNANT NEOPLASM Mother Relation [...] (2 - Td or Tdap) 01/15/2021 01/15/2011 BMI CHECK/ADVISE 05/17/2024 03/08/2018, 05/2017, 09/08/2017, Additional history exists INFLUENZA (Season Ended) 2025 Care Teams Cottage Attendant Relationship Specialty Start Date End Date Sahra Son MD PCP - General Internal Medicine 08/31/22 Marko Spaulding MD Specialist Cardiology 09/23/22
--- OUTSIDE RECORDS SUMMARY | 2024-09-18 09:42 | XMS_ITS | Encounter Summary ---
Author Organization [facility] Address [address] [place] [address] Care Team Providers Care Sound Person Name Role Phone Vinnie Santizo Primary Care Provider Sahra Keith MD Primary Care Provider Marko Fernandez MD Unavailable [phone] Reason for Visit * Reason Onset Date Comments Vomiting 10/13/2017 Pt unable to per form the PFT, due to nausea and vomitting, Pt was able to perform the 6 minute walk, Dhruv Guerra SHEAR TENDER aware, Pt will be rescheduled when she has her fu visit with Eneida Encounter Details Date Type Department Care Team Description 10/13/2017 Telephone Pulmonology - [place] [address] [facility] [address] [place] [address] Royer Schulz MD Vomiting (Pt unable to perform the PFT, due to nausea and vomitting, Pt was able to perform the 6 minute walk, Dhruv Guerra SHEAR TENDER aware, Pt will be rescheduled when she [...] on filedocumented in this encounter Care Teams Sound Person Relationship Specialty Start Date End Date Vinnie Santizo PCP - General Internal Medicine 03/30/17 08/30/22 Sahra Son MD PCP - General Internal Medicine 08/31/22 Marko Spaulding MD Specialist Cardiology 09/23/22 documented as of this encounter
--- OUTSIDE RECORDS SUMMARY | 2024-09-18 09:42 | XMS_ITS | Encounter Summary ---
Author Organization [employer] [facility] Address [address] [place] [address] Care Team Providers Care Engraving Supervisor Name Role Phone Tammie, Pcp Primary Care Provider Vinnie Rodriguez Primary Care Provider Sahra Keith MD Primary Care Provider Paula Marko Ferreira MD Unavailable [phone] Encounter Details Date Type Department Care Team Description 11/13/2016 SCAN Medical Records [address] [place] [address] Aniceto Michelle Social History Tobacco Use Types [...] on filedocumented in this encounter Care Teams Engraving Supervisor Relationship Specialty Start Date End Date Tammie, Pcp PCP - General Internal Medicine 07/24/13 03/29/17 Vinnie Santizo PCP - General Internal Medicine 03/30/17 08/30/22 Sahra Son MD PCP - General Internal Medicine 08/31/22 Marko Spaulding MD Specialist Cardiology 5/10/23 documented as of this encounter
--- OUTSIDE RECORDS SUMMARY | 2024-09-18 09:42 | XMS_ITS | Encounter Summary ---
Author Organization [employer] [facility] Address [address] [place] [address] Care Team Providers Care Clam Sorter Name Role Phone Obinna Mao MD Primary Care Provider Unavailable Tammie, Pcp Primary Care Provider Vinnie Rodriguez Primary Care Provider Sahra Keith MD Primary Care Provider Paula vailable Marko Spaulding MD Unavailable [phone] Encounter Details Date Type Department Care Team Description 12/28/2012 Release of Information Medical Records [address] [place] [address] Abstract, Provider Social History Tobacco Use Types [...] filedocumented in this encounter Care Teams Clam Sorter Relationship Specialty Start Date End Date Obinna Mao MD PCP - General Internal Medicine 12/13/1207/23 [facility], Pcp PCP - General Internal Medicine 07/24/13 03/29/17 Vinnie Santizo PCP - General Internal Medicine 03/30/17 08/30/22 Sahra Son MD PCP - General Internal Medicine 08/31/22 Marko Spaulding MD Specialist Cardiology 09/23/22 documented as of this encounter
--- OUTSIDE RECORDS SUMMARY | 2024-09-18 09:42 | XMS_ITS | Data Portability ---
Author Organization [facility] [employer] [facility] Address [address] [place] [address] Care Team Providers Care Repertoire Manager Name Role Phone HIM CCA OTHER Assessment Encounter Date Assessment Date Assessment LastModified by Organization Details LastModified Time 07/07/2023 07/07/2023 I provided real -time medical direction via phone for this encounter, and was available for additional phone based assistance as needed. I have reviewed and agree with the Assessment and Plan as documented by the Barrel Straightener. We discussed the diagnostic uncertainty of home [...] to call 911- verbalized understanding of instructions [email or web address] Not available 07/07/2023 23:48:08 08/03/2023 08/03/2023 Ms. 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 VSS. Barrel Straightener on site reports no acute distress, wheezing [...] Assessment and Plan as documented by the Barrel Straightener. We discussed the diagnostic uncertainty of home visits and the risk associated with this The patient given the opportunity to ask questions. Call placed to [facility] ER expect line [email or web address] Not available 09/16/2023 11:20:43 08/17/2024 08/17/2024 I have reviewed and agree with the assessment and plan as documented by the hand salter. I provided real time medical direction for this encounter and was immediately available to provide additional phone based assistance as needed. History as noted by hand salter. Pt with history of type 2 diabetes [...] 2023 024 [email or web address] 0 [facility], [address] [place] [address], [phone] 4 11:21:41 BMP, serum or plasma 2023 024 [email or web address] 0 [facility], [address] [place] [address], [address] 4 23:49:01 Referral None recorded. Procedures None recorded. Surgeries None recorded. Imaging None recorded. Medication Orders ketorolac 60 mg/2 mL intramuscul ar solution 2024 025 btils [facility] #94544, [address] [place], [place], [id number], 5 16:08:53 lidocaine 4 % topical patch 2024 025 JEANNE [facility] #43744, [address], [place], [id number], 5 16:08:59 prednisone 10 mg tablet 2023 024 [facility] #53215, [address], [place], [id number], 4 11:51:08 azithromyci n 250 mg tablet 2023 024 [facility] #36109, [address], [place], [id number], 4 11:51:18 azithromyci n 250 mg tablet [address] [facility]41874, [address], [place], [id number], 4 11:50:53 prednisone 20 mg tablet [address] [facility] #47785, [address], [place], [id number], 4 11:50:53 Patient TargetsNo targets recorded. Patient InstructionsNo instructions recorded. Reason for Referral None Reported. Results Created Date Observation Date Name Description Value Unit Range Abnormal Flag Note LastModifiedBy Organization Detail LastModifiedTime 07/07/19 24 07/07/2023 BMP, serum or plasm a BUN 17 Not Available [facility] [address], [address] 07/07/2023 15:06:01 07/07/19 24 07/07/2023 BMP, serum or plasm a Ca 1.13 ionize d Not Available [facility] - [facility] [address], [address] 07/07/2023 15:06:01 07/07/19 24 07/07/2023 BMP, serum or plasm a CI- 104 Not Available [facility] [address], [address] 07/07/2023 15:06:01 07/07/19 24 07/07/2023 BMP, serum or plasm a CRE 0.9 Not Available [facility] [address], [address] 07/07/2023 15:06:01 07/07/19 24 07/07/2023 BMP, serum or plasm a GLU 182 Not Available [facility] [address], [address] 07/07/2023 15:06:01 07/07/19 24 07/07/2023 BMP, serum or plasm a K+ 3.8 Not Available [facility] [address], [address] [place] [address] 07/07/2023 15:06:01 07/07/19 24 07/07/2023 BMP, serum or plasm a Na+ 140 Not Available [facility] [address], [address] [place] [address] 07/07/2023 15:06:01 07/07/19 24 07/07/2023 BMP, serum or plasm a tCO2 23 Not Available [facility] [address], [address] [place] [address] 07/07/2023 15:06:01 09/16/19 24 09/16/2023 gluco se, finge rstic k, blood Blood Glucose: mg/dl 215 Not Available [facility] - [address], [address] 09/16/2023 11:21:03 Result Notes None recorded. Medical [...] Not available Not available Not available 05/27/2022 [id number] UNK Nidia Morales MD [address] [place] [address],[address], [place], [address] [address] [facility] 3 14:08:14 1749 Product containin g penicilli n (product) medicatio n Not available Not available Not available 05/27/2022 80540 8001 SNOMED Not Available [facility] - [facility] 4 03:41:45 4589 morphine medicatio n Not available Not available Not available 07/07/2023 7052 RxNorm Natalie Whipple MD [address], [place], [address], [facility] 4 15:03:14 4590 Iodinated contrast media (substanc e) medicatio n Not available Not available Not available 07/07/2023 49461 2003 SNOMED Natalie Whipple MD [address], [place], [address], [facility] 4 15:03:26 Medications Name Sig Start Date [...] release TAKE 2 CAPSULES BY MOUTH DAILY active Not Available Not [...] /min 150 mm[Hg] 90 mm[Hg] Not Available [facility] [employer] [facility] 4 15:01:59 Date Recorded Body temperature Respiratory rate Oxygen saturation Oxygen saturation in Arterial blood by Pulse oximetry Heart rate Systolic blood pressure Diastolic blood pressure Provider Name and Address Organization Details Last Updated DateTime 4 97.9 [degF] 16 /min 97 % 97 % 73 /min 144 mm[Hg] 80 mm[Hg] Not Available [facility] 4 11:45:28 Date Recorded Body temperature Heart rate Respiratory rate Oxygen saturation Oxygen saturation in Arterial blood by Pulse oximetry Systolic blood pressure Diastolic blood pressure Provider Name and Address Organization Details Last Updated DateTime 4 97.7 [degF] 65 /min 18 /min 97 % 97 % 138 mm[Hg] 64 mm[Hg] Not Available [facility] 4 12:03:25 Date Recorded Body temperature Oxygen saturation Oxygen saturation in Arterial blood by Pulse oximetry Heart rate Respiratory rate Systolic blood pressure Diastolic blood pressure Provider Name and Address Organization Details Last Updated DateTime 4 98 [degF] 97 % 97 % 87 /min 16 /min 133 mm[Hg] 78 mm[Hg] Not Available [facility] 4 14:12:35 Date Recorded Oxygen saturation Oxygen saturation in Arterial blood by Pulse oximetry Heart rate Body temperature Respiratory rate Systolic blood pressure Diastolic blood pressure Provider Name and Address Organization Details Last Updated DateTime 5 97 % 97 % 89 /min 97.6 [degF] 16 /min 140 mm[Hg] 64 mm[Hg] Not Available [facility] 5 16:01:31 Social History None recorded. Functional Status None recorded. Mental Status None recorded. Family History Nothing Reported. Medical History No medical history recorded. Gynecological HistoryNo gynecological history recorded. Obstetrics History GPAL:G 0 P 0 0 0 0 Past Encounters Encounter ID Performer Location Encounter Start Date Encounter Closed Date Diagnosis/Indication Diagnosis SNOMED-CT Code Diagnosis ICD10 Code Diagnosis Note [id number] Dante Brown MD [address] [id number] 02/04/2022 17:39:01 02/04/2022 17:44:57 [id number] Ana Luisa Fair MD [facility] - [address] [address] 02/13/2022 11:18:20 02/13/2022 11:46:05 [id number] Dante Brown MD [address] [phone] 04/20/2022 16:19:49 04/22/2022 11:04:34 Viral upper respiratory tract infection 196991041 J06.9 This 61-year-ol d female called [facility] with symptoms of a URI. Her COVID-19 and flu screens were negative and she did not appear to be acutely ill. I recommende d symptomati c treatment and she will follow-up with her PCP if her symptoms persist. The patient agreed with this plan. [id number] Jah Vasquez MD [address] [address] 05/19/2022 15:42:35 05/21/2022 10:52:46 COVID-19 [id number] U07.1 [id number] Nidia Morales MD [address] [address] 05/27/2022 14:04:20 05/29/2022 10:25:07 Pneumonia 325165688 J18.9 61yo PMHx ?seizure activity, HTN, CKD, [...] assessment and plan as documented by the hand salter. I provided real time medical direction for this encounter and was immediatel y available to provide additional phone based assistance as needed. [id number] David Guerrero MD [facility] [address] [place] [phone] 05/14/2023 15:50:47 05/18/2023 12:06:52 Cough [id number] R05.9 Natalie Whipple MD [facility] [address] [place] [id number] 07/07/2023 15:01:51 07/08/2023 09:28:47 Acute low back pain [id number] M54.50 On top of chronic advised needs [...] her best interest History of rectal bleeding [id number] 1054229 Z87.19 We do not have the ability to do stool guaiac and although her H&H is currently stable I am concerned with her taking ibuprofen while on Coumadin-a dvised needs workup for GI bleeding. [id number] Ana Luisa Fair MD [facility] [address] [place] [id number] 08/03/2023 11:25:58 08/03/2023 20:10:35 Acute exacerbation of chronic obstructive pulmonary disease [id number] J44.1 [id number] Natalie Whipple MD [facility] [address] [place] [id number] 09/16/2023 11:10:45 09/19/2023 12:06:57 Dizziness [id number] R42 Prolonged postictal symptoms / cannot r/o new CVA vs bleed given unsteadine ss, increased right hemiparesi s and patient is a large fall risk- advised patient need for emergent CT brain-hypo glycemia is not the issue here. Explained to patient the need for emergent evaluation and she agreed. Report called to [facility] [place] [id number] Josefina Irizarry MD [facility] [address] [place] [phone] 11/30/2023 14:12:32 11/30/2023 18:23:22 Abdominal pain 25864831 R10.9 63 year old female with iron [...] assessment and plan as documented by the hand salter. I provided real-time medical direction for this encounter and was immediatel y available to provide additional phone-base d assistance as needed. We discussed the diagnostic uncertaint y of home visits and associated risks. We discussed the need to seek care urgently/e mergently in the setting of any new or worsening symptoms. [id number] David Guerrero MD [facility] [address] [place] [id number] 08/17/2024 16:01:29 08/17/2024 19:17:31 Contusion of right rib [id number] 7101 S20.211A Health Concerns Section Related Observation LastModified by Organization Detai ls LastModified Time None Recorded Concern Status LastModified by Organization Details LastModified Time None Recorded Advance Directives Directive None Recorded Payers Encounter Date Sequence Insurance Name Policy Number Policy Gorman Covered Member ID Gorman Member ID Guarantor Name 07/07/2023 1 [facility] - DOS ON OR AFTER 2022 - DUAL ELIGIBLE - SENIOR LIVING OPTIONS AND ONE CARE (MEDICARE REPLACEMENT/AD VANTAGE - HMO) Jennifer Schulz [id number] Jennifer Schulz 08/03/2023 1 [employer] - DOS ON OR AFTER 2022 - DUAL ELIGIBLE - SENIOR LIVING OPTIONS AND ONE CARE (MEDICARE REPLACEMENT/AD VANTAGE - HMO) Jennifer Schulz [id number] Jennifer Schulz 09/16/2023 1 [employer] - DOS ON OR AFTER 2022 - DUAL ELIGIBLE - SENIOR LIVING OPTIONS AND ONE CARE (MEDICARE REPLACEMENT/AD VANTAGE - HMO) Jennifer Schulz [id number] Jennifer Schulz 11/30/2023 1 [facility] [employer] - DOS ON OR AFTER 2022 - DUAL ELIGIBLE - SENIOR LIVING OPTIONS AND ONE CARE (MEDICARE REPLACEMENT/AD VANTAGE - HMO) Jennifer Schulz [id number] Jennifer Schulz 08/17/2024 1 [employer] - DOS ON OR AFTER 2022 - DUAL ELIGIBLE - SENIOR LIVING OPTIONS AND ONE CARE (MEDICARE REPLACEMENT/AD VANTAGE - HMO) Jennifer Schulz [id number] Jennifer Schulz Notes Date Note Type Note [...] issues she was having. I spoke with CONVENTIONAL MACHINIST about Jennifer's issues, ER was advised but [...] ...................... ...................... ...................... ...................... ...................... ...................... ......... Barrel Straightener Note From Vinnie Ashby: Dispatched to the [...] but none currently. Natalie Whipple MD [address] [facility],[address], [place], [address], [facility] [employer] [facility] 07/07/2023 23:57:06 08/03/2023 text/html HPI: Patient reports a bad dry cough x 1 week with SOB and wheezing. Did 2-3 neb treatments yesterday with no relief. Today she woke up with bloody/green mucus in her throat and from her nose. Ears and nose feel clogged, has sore throat. Taking loratadine without benefit. 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 COVID negative. Feels like symptoms overall getting worse. ...................... ...................... ...................... ...................... ...................... ...................... ......... CRC Nurse Triage Notes (Maile Hardy): Comments: HPI reviewed. ...................... ...................... ...................... ...................... ...................... ...................... ......... Barrel Straightener Note From Vinnie Ashby: Dispatched to the [...] Disposition: Fulfilled Ana Luisa Fair MD [address] [facility],[address], [place], [address], [facility] 08/03/2023 13:27:24 09/16/2023 text/html HPI: 62 yo [...] Triage Notes (Maile Hardy): Comments: HPI reviewed. Barrel Straightener POC Test Results from [facility] Blood Glucose Measurement (1) [12:03] Blood Glucose: 258 mg/dL ...................... ...................... ...................... ...................... ...................... ...................... ......... Barrel Straightener Note From Enzo Ortiz: Dispatched to above [...] warm and dry. Patients BGL checked, 158mg/dl. [facility] contacted, spoke with Dr. Whipple, advised of patient complaints and exam findings. [facility] advised immediate transport to ER for further evaluation of possible CVA. Patient initially refused but after speaking with Dr. Whipple agreed. [address] [facility] responded. [facility] hand salter given verbal report. Barrel Straightener took over patient care, transport to [facility]. SC8 clear. EOR. ...................... ...................... ...................... ...................... ...................... ...................... ......... Disposition: Fulfilled Natalie Whipple MD [address] [place] [address],[address], [place], [address], [facility] [employer] [facility] 09/17/2023 13:03:36 11/30/2023 text/html HPI: Patient calls PCP today to state last she had an allergic reaction to her Iron infusion at [facility]. She tells me Alecia CARTER (her kidney provider-ordering provider for the iron) is aware that this happened. She now needs to get her iron infusions at [facility], not [facility], because the kidney care staff told her they are switching service providers to [facility]. She got a bag of iron at [facility] when she typically gets a 10 min push at [facility]. She was instructed to take her [...] ...................... ...................... ...................... ...................... ...................... ...................... ......... Barrel Straightener Note From Cas Robledo: Pt reports while [...] tender in the ULQ. No LE edema. [facility] contacted and pt advised to wait until to see the PCP. Pt instructed to seek emergent medical care for new or worsening sx, such as fever, not passing gas or stool or n/v. ...................... ...................... ...................... ...................... ...................... ...................... ......... Disposition: Fulfilled Josefina Irizarry MD [address] [place] [address],[address], [place], [address], [facility] 11/30/2023 15:28:40 08/17/2024 text/html This was a super vised home visit with hand salter Enzo Ortiz. HPI: 63-year-old woman with type [...] referral for pain evaluation/treat as indicated. Radha SHAY ...................... ...................... ...................... ...................... ...................... ...................... ......... Barrel Straightener Note From Enzo Ortiz: Dispatched to above [...] radial pulse, skin pink warm and dry. [facility] contacted, spoke with Dr. Guerrero, advised of patient complaints and exam findings. [facility] orders 30mg Toradol given IM, will prescribe Lidocaine patches. Patient administered 30mg Toradol IM. Patient advised of red flags home care and need for follow up. Patient agrees with this plan, will follow up with PCP tomorrow after x-ray. Patient has no additional questions or concerns at this time. SC8 clear. EOR. [facility] Medication Orders: ketorolac 60 mg/2 mL intramuscular solution: Administered ...................... ...................... ...................... ...................... ...................... ...................... ......... [facility] Consulted: David Guerrero ...................... ...................... ...................... ...................... ...................... ...................... ......... Disposition: Fulfilled David Guerrero MD [address] [facility],[address], [place], [address], [facility] 08/17/2024 18:11:36 OBGyn Episode No OBEpisode recorded.
--- OUTSIDE RECORDS SUMMARY | 2024-09-18 09:42 | XMS_ITS | Encounter Summary ---
Author Organization [facility] Address [address] [place] [address] Care Team Providers Care Solder Deposit Operator Name Role Phone Vinnie Santizo Primary Care Provider Obinna Merrill MD Primary Care Provider [facility] Tammie, Pcp Primary Care Provider Vinnie Rodriguez Primary Care Provider Sahra Keith MD Primary Care Provider Paula [facility] Marko Spaulding MD Unavailable [phone] Encounter Details Date Type Department Care Team Description 09/08/1998 [facility] [address] [address] Raphael Bernstein MD SYNCOPE AND COLLAPSE Social History Tobacco Use Types Packs/Day Years Used Date Smoking Tobacco: Never Assessed Sex Assigned at Date Recorded Not on file documented as of this encounter Plan of Treatment Not on file documented as of this encounter Visit Diagnoses Diagnosis Syncope and collapse documented in this encounter Care Teams Solder Deposit Operator Relationship Specialty Start Date End Date Vinnie Santizo PCP - General 08/04/03 12/12/12 Obinna Mao MD PCP - General Internal Medicine 12/13/1207/23 [facility], Pcp PCP - General Internal Medicine 07/24/13 03/29/17 Vinnie Santizo PCP - General Internal Medicine 03/30/17 08/30/22 Sahra Son MD PCP - General Internal Medicine 08/31/22 Marko Spaulding MD Specialist Cardiology 09/23/22 documented as of this encounter
--- OUTSIDE RECORDS SUMMARY | 2024-09-18 09:42 | XMS_ITS | Encounter Summary ---
Author Organization [facility] Address [address] [place] [address] Care Team Providers Care Apartment Leasing Specialist Name Role Phone Sahra Son MD Primary Care Provider Paula daryilable Marko Spaulding MD Unavailable [phone] Encounter Details Date Type Department Care Team Description 12/17/2022 Orders Only Medical Records [address] [place] [address] Abstract, Provider Social History Tobacco Use Types [...] filedocumented in this encounter Care Teams Apartment Leasing Specialist Relationship Specialty Start Date End Date Sahra Son MD PCP - General Internal Medicine 08/31/22 Marko Spaulding MD Specialist Cardiology 09/23/22 documented as of this encounter
--- OUTSIDE RECORDS SUMMARY | 2024-09-18 09:42 | XMS_ITS | Clinical Summary ---
Author Organization [facility] Address [address] [place] [address] Care Team Providers Care Bevel Gear Generator Operator Name Role Phone Geovani Natalie Carmelo ESPARZA Primary Care Provider [phone] Allergies Active Allergy Reactions Criticality Noted Date [...] 1 10/04/2016 Active ergocalciferol (VITAMIN D2) capsule 03784 units TK ONE C PO TWICE A [...] times a day. 0 04/27/2022 Active pancrelipase, Lip-Msrp-Eiov, (Creon) 66991-91137 units CPEP TK ONE C PO TID [...] age to complete this topic Care Teams Bevel Gear Generator Operator Relationship Specialty Start Date End Date Natalie Olivo APRN [address] [place] [address] PCP - General Hosted Services Analyst 04/30/22
--- OUTSIDE RECORDS SUMMARY | 2024-09-18 09:42 | XMS_ITS | Encounter Summary ---
Author Organization [facility] Address [address] [place] [address] Care Team Providers Care Director Plans Name Role Phone Sahra Son MD Primary Care Provider Paula vailable Marko Spaulding MD Unavailable [phone] Encounter Details Date Type Department Care Team Description 11/16/2022 Orders Only Pulmonology - [place] [address] [facility] [address] [place] [phone] Betty Morillo MD [address] [facility] [address] [place] [phone] Social History Tobacco Use Types Packs/Day Years [...] filedocumented in this encounter Care Teams Director Plans Relationship Specialty Start Date End Date Sahra Son MD PCP - General Internal Medicine 08/31/22 Marko Spaulding MD Specialist Cardiology 09/23/22 documented as of this encounter
--- OUTSIDE RECORDS SUMMARY | 2024-09-18 09:42 | XMS_ITS | Encounter Summary ---
Author Organization [facility] Address [address] [place] [address] Care Team Providers Care Financial Services Director Name Role Phone Vinnie Santizo Primary Care Provider Sahra Keith MD Primary Care Provider Marko Fernandez MD Unavailable [phone] Reason for Visit * Reason Comments E-prescribe Rx Request Encounter Details Date Type Department Care Team Description 10/24/2017 Refill Pulmonology - [place] [address] [facility] [address] [place] [id number] Eneida Acuña NP E-prescribe Rx Request Social [...] NO Patients current insurance carrier is: Payor: [facility] / Plan: [facility] / Product Type: HMO [id number] documented in this encounter Plan of Treatment Not on file documented as of this encounter Visit Diagnoses Diagnosis Systemic lupus erythematosus, unspecified SLE type, unspecified organ involvement status (HCC) Pulmonary nodule Solitary pulmonary nodule Tobacco abuse Tobacco use disorder Asthma, unspecified asthma severity, unspecified whether complicated, unspecified whether persistent Multiple environmental allergies Cigarette smoker Tobacco use disorder documented in this encounter Care Teams Financial Services Director Relationship Specialty Start Date End Date Vinnie Santizo PCP - General Internal Medicine 03/30/17 08/30/22 Sahra Son MD PCP - General Internal Medicine 08/31/22 Marko Spaulding MD Specialist Cardiology 09/23/22 documented as of this encounter
--- OUTSIDE RECORDS SUMMARY | 2024-09-18 09:42 | XMS_ITS | Encounter Summary ---
Author Organization [facility] Address [address] [place] [address] Phone Care Team Providers Care Speech And Hearing Clinic Director Name Role Phone Sahra Son MD Primary Care Provider + Encounter Details Date Type Department Care Team (Late Contact Info) Description 06/23/2024 Orders Only [facility] [address] [place] [address] India Davalos [address] [place] [address] Chronic kidney disease, stage 2 [...] [facility] [address] [place] [address] Barry Reyes MD [address] [facility] [place] [address] documented as of this encounter Visit Diagnoses Diagnosis Chronic kidney disease, stage 2 (mild) Anemia in chronic kidney disease Iron deficiency anemia, not otherwise specified documented in this encounter Care Teams Speech And Hearing Clinic Director Relationship Specialty Start Date End Date Sahra Son MD [facility] [place] [address] PCP - General Internal Medicine 10/28/22 documented as of this encounter
--- OUTSIDE RECORDS SUMMARY | 2024-09-18 09:42 | XMS_ITS | Encounter Summary ---
Author Organization [facility] Address [address] [place] [address] Care Team Providers Care Style Advisor Name Role Phone Sahra Son MD Primary Care Provider Paula vailable Marko Spaulding MD Unavailable [phone] Encounter Details Date Type Department Care Team Description 05/06/2023 Inbound Telemarketer Report Medical Records [address] [place] [address] Sahra Son MD Social History Tobacco Use [...] on filedocumented in this encounter Care Teams Style Advisor Relationship Specialty Start Date End Date Sahra Son MD PCP - General Internal Medicine 08/31/22 Marko Spaulding MD Specialist Cardiology 09/23/22 documented as of this encounter
--- OUTSIDE RECORDS SUMMARY | 2024-09-18 09:42 | XMS_ITS | Encounter Summary ---
Author Organization [facility] Address [address] [place] [address] Phone Care Team Providers Care Carbide Tool Die Maker Name Role Phone Sahra Son MD Primary Care Provider + Encounter Details Date Type Department Care Team (Late Contact Info) Description 07/21/2024 Orders Only [facility] [address] [place] [address] India Davalos [address] [place] [address] Chronic kidney disease, stage 2 [...] [facility] [address] [facility] [place] [address] Barry Reyes MD [address] [facility] [place] [address] documented as of this encounter Visit Diagnoses Diagnosis Chronic kidney disease, stage 2 (mild) Anemia in chronic kidney disease Iron deficiency anemia, not otherwise specified documented in this encounter Care Teams Carbide Tool Die Maker Relationship Specialty Start Date End Date Sahra Son MD [facility] [place] [address] PCP - General Internal Medicine 10/28/22 documented as of this encounter
== END 2024-09-18 09:27 | disposition home or self-care (01) ==
LOC: HO.ACS 09:05
PROVIDERS: PCP Internal Medicine; Visit Provider Internal Medicine Medical Oncology
DX: Z79.01 Long term (current) use of anticoagulants (principal)

== ENCOUNTER → 2024-09-18 09:05 | Outpatient (BNVA) | payer OTHER, SELFPAY | PROVIDERS: PCP Internal Medicine; Visit Provider Internal Medicine Medical Oncology | DX: Z86.718 Personal history of other venous thrombosis and embolism (principal); Z51.81 Encounter for therapeutic drug level monitoring; Z79.01 Long term (current) use of anticoagulants | CPT/HCPCS: 85610; 99211 ==

== ENCOUNTER 2024-09-25 09:33 | Outpatient (AMB) | payer OTHER, SELFPAY ==
[2024-09-25 09:43] LABS: Prothrombin Time Whole Bld POC 22.9 sec (11.1-13.5); ~PT, ~INR - Anti Coag Clinic 1.9 (0.9-1.1)
--- NOTE | 2024-09-25 09:48 | MHC.OFFVISCO ---
Intake Intake Visit Reasons: Anticoagulation Allergies codeine [Codeine] Allergy (Severe, Verified 09/18/24 09:09) DIFFICULTY BREATHING Penicillins Allergy (Severe, Verified 09/18/24 09:09) RASH penicillin V Allergy (Intermediate, Verified 09/18/24 09:09) RASH tramadol [Ultram] Allergy (Unknown, Verified 09/18/24 09:09) hallucinations Shellfish Allergy (Severe, Uncoded 09/18/24 09:09) THROAT SWELLING Contrast Allergy PreMed Pack Allergy (Unknown, Uncoded 09/18/24 09:09) TREAT WITH BENADRYL ferrlecit Adverse Reaction (Intermediate, Uncoded 09/18/24 09:09) Rash Medication List - Last Reconciled 09/25/24 by Tangela Sam RN atorvastatin 80 mg PO DAILY blood sugar diagnostic As directed budesonide (Pulmicort) 0.25 mg inhalation BID clonidine HCl 0.1 mg PO BID duloxetine 120 mg PO QAM epoetin marj (Procrit) 2,000 units subcut 3XW hydrocortisone 2.5% appl topical ipratropium-albuterol 0.5 mg-3 mg(2.5 mg base)/3 mL mL inhalation ipratropium-albuterol 20-100 mcg/actuation 1 puff PO QID ipratropium-albuterol 20-100 mcg/actuation (Combivent Respimat) 1 puff inhalation Q4H lancets As directed lancets As directed latanoprost 0.005% drps ophthalmic (eye) linaclotide (Linzess) 145 mcg PO DAILY linagliptin (Tradjenta) 5 mg PO DAILY gjglzw-xnwlaetd-uichguf 24,000-76,000 -120,000 unit (Creon) 1 cap PO TID loratadine 10 mg PO DAILY PRN lorazepam 1 mg PO BID meclizine mg PO montelukast 10 mg PO BEDTIME nifedipine ER 30 mg PO DAILY nitroglycerin 0.4 mg sublingual Q5M PRN nystatin 1 appl topical DAILY PRN ondansetron 4 mg PO Q8H PRN oxcarbazepine (Trileptal) 1 tab qhs x's 1 week then 1 tab bid orally .; 30 days quetiapine 200 mg PO BEDTIME rabeprazole 20 mg PO DAILY ropinirole 0.25 mg PO BEDTIME sodium chloride 0.65% (Deep Sea Nasal) sprays intranasal Q2H PRN triamcinolone acetonide 0.1% appl topical warfarin 2.5 mg See Protocol PO DAILY Nursing Note INR 1.9?out of therapeutic range Medications and supplements reviewed Patient status: she ate more over the weekend, GARDEN WORKER brought her food, also she may increase her seizure med to BID - sounds to be having partial seizure enc to call PCP Medications or supplements: no other changes Diet: ate well over the weekend - may have lowered the INR Denies any signs and symptoms of bleeding or clotting or unusual bruising Bleeding, bruising, clotting discussed Nutritional guidance given: eat a mix of fruits and vegetables Dose: increase dose slightly 5mg x 5 days/ 3.75mg x 2 days - because seizure med may lower the INR F/U INR Date: 1 week ?? Patient verbalizing understanding of instructions given. Anti-Coag Initial Assessment Social Hx Patient Tobacco Use Status: Current everyday Tobacco user alcohol intake: never Coding Level of Care Code Est Patient Level 1 Diagnoses Current use of anticoagulant therapy Z79.01 Results AMB INR Fingerstick AMB INR Fingerstick 1.9 Last Edit by Tangela Sam RN on 09/25/24 09:44 manual entry Assessment & Plan Assessment & Plan (1) Current use of anticoagulant therapy: Code(s): Z79.01 - snf (current) use of anticoagulants Category: Medical
--- OUTSIDE RECORDS SUMMARY | 2024-09-25 09:49 | XMS_ITS | Encounter Summary ---
Author Organization [facility] Address [address] [place] [address] Phone Care Team Providers Care Plate Preparer Name Role Phone Sahra Son MD Primary Care Provider + Encounter Details Date Type Department Care Team ([facility] Contact Info) Description 06/18/2021 Documentation Only [facility] [address] [place] [address] India Davalos [address] [place] [address] Social History Tobacco Use Types [...] [facility] [address] [place] [address] Barry Reyes MD [address] [place] [address] [place] [address] documented as of this encounter Visit Diagnoses Not on filedocumented in this encounter Care Teams Plate Preparer Relationship Specialty Start Date End Date Sahra Son MD [address] [address] PCP - General Internal Medicine 10/28/22 documented as of this encounter
--- OUTSIDE RECORDS SUMMARY | 2024-09-25 09:49 | XMS_ITS | Encounter Summary ---
Author Organization [facility] Address [address] [place] [address] Phone Care Team Providers Care Director Of Materials Name Role Phone Sahra Son MD Primary Care Provider + Encounter Details Date Type Department Care Team ([facility] Contact Info) Description 09/28/2022 Documentation Only [facility] [address] [place] [address] India Davalos [address] [place] [address] Social History Tobacco [...] [facility] [address] [place] [address] Barry Reyes MD [address] [place] [address] [place] [address] documented as of this encounter Visit Diagnoses Not on filedocumented in this encounter Care Teams Director Of Materials Relationship Specialty Start Date End Date Sahra Son MD [address] [address] PCP - General Internal Medicine 10/28/22 documented as of this encounter
--- OUTSIDE RECORDS SUMMARY | 2024-09-25 09:49 | XMS_ITS | Encounter Summary ---
Author Organization [facility] Address [address] [place] [address] Phone Care Team Providers Care Personnel Coordinator Name Role Phone Sahra Son MD Primary Care Provider + Encounter Details Date Type Department Care Team ([facility] Contact Info) Description 09/28/2022 Documentation Only [facility] [address] [place] [address] India Davalos [address] [place] [address] Social History Tobacco Use Types [...] Department Care Team ([facility] Contact Info) Description 11/23/2024 12:50 PM EDT Office Visit [facility] [address] [place] [address] Barry Reyes MD [address] [place] [address] [place] [address] documented as of this encounter Visit Diagnoses Not on filedocumented in this encounter Care Teams Personnel Coordinator Relationship Specialty Start Date End Date Sahra Son MD [address] [address] PCP - General Internal Medicine 10/28/22 documented as of this encounter
--- OUTSIDE RECORDS SUMMARY | 2024-09-25 09:49 | XMS_ITS | Encounter Summary ---
Author Organization [facility] Address [address] [place] [address] Phone Care Team Providers Care Production Line Worker Name Role Phone Sahra Son MD Primary Care Provider + Encounter Details Date Type Department Care Team ([facility] Contact Info) Description 09/18/2022 Documentation Only [facility] [address] [place] [address] India Davalos [address] [place] [address] Social History Tobacco Use Types [...] [facility] [address] [place] [address] Barry Reyes MD [address] [place] [address] [place] [address] documented as of this encounter Visit Diagnoses Not on filedocumented in this encounter Care Teams Production Line Worker Relationship Specialty Start Date End Date Sahra Son MD [address] [address] PCP - General Internal Medicine 10/28/22 documented as of this encounter
--- OUTSIDE RECORDS SUMMARY | 2024-09-25 09:49 | XMS_ITS | Encounter Summary ---
Author Organization [facility] Address [address] [place] [address] Phone Care Team Providers Care [place] Clipper Name Role Phone Sahra Son MD Primary Care Provider + Encounter Details Date Type Department Care Team ([facility] Contact Info) Description 06/17/2022 Documentation Only [facility] [address] [place] [address] India Davalos [address] [place], [place] [...] [facility] [address] [place] [address] Barry Reyes MD [address] [place] [address] [place] [address] documented as of this encounter Visit Diagnoses Not on filedocumented in this encounter Care Teams [place] Clipper Relationship Specialty Start Date End Date Sahra Son MD [address] [address] PCP - General Internal Medicine 10/28/22 documented as of this encounter
--- OUTSIDE RECORDS SUMMARY | 2024-09-25 09:49 | XMS_ITS | Encounter Summary ---
Author Organization [facility] Address [address] [place] [address] Phone Care Team Providers Care Transitions Rn Care Coordinator Name Role Phone Sahra Son MD Primary Care Provider + Encounter Details Date Type Department Care Team ([facility] Contact Info) Description 09/28/2022 Documentation Only [facility] [address] [place] [address] India Davalos [address] [place] [address] Social History Tobacco Use Types [...] [facility] [address] [place] [address] Barry Reyes MD [address] [place] [address] [place] [address] documented as of this encounter Visit Diagnoses Not on filedocumented in this encounter Care Teams Transitions Rn Care Coordinator Relationship Specialty Start Date End Date Sahra Son MD [address] [address] PCP - General Internal Medicine 10/28/22 documented as of this encounter
--- OUTSIDE RECORDS SUMMARY | 2024-09-25 09:49 | XMS_ITS | Encounter Summary ---
Author Organization [facility] Address [address] [place] [address] Phone Care Team Providers Care Washer Off Name Role Phone Sahra Son MD Primary Care Provider + Encounter Details Date Type Department Care Team ([facility] Contact Info) Description 09/28/2022 Documentation Only [facility] [address] [place] [address] India Davalos [address] [place] [address] Social History Tobacco Use Types [...] [facility] [address] [place] [address] Barry Reyes MD [address] [place] [address] [place] [address] documented as of this encounter Visit Diagnoses Not on filedocumented in this encounter Care Teams Washer Off Relationship Specialty Start Date End Date Sahra Son MD [address] [address] PCP - General Internal Medicine 10/28/22 documented as of this encounter
--- OUTSIDE RECORDS SUMMARY | 2024-09-25 09:49 | XMS_ITS | Encounter Summary ---
Author Organization [facility] Address [address] [place] [address] Phone Care Team Providers Care Furniture Mechanic Name Role Phone Sahra Son MD Primary Care Provider + Encounter Details Date Type Department Care Team (Late Contact Info) Description 03/03/2024 Orders Only [facility] [address] [place] [address] India Davalos [address] [place] [address] Chronic kidney disease, stage 2 [...] Visit [facility] [address] [place] [address] Barry Reyes MD [address] [place] [address] [place] [address] documented as of this encounter [...] Glucose 152(H) 70 - 99 mg/dL [facility] BUN 16 8 - 27 mg/dL [facility] Creatinine 0.98 0.57 - 1.00 mg/dL [facility] eGFR CKD-EPI CR 2020 64 >59 mL/min/1.7 3 [facility] BUN/Creatinine Ratio 16 12 - 28 [facility] Sodium 137 134 - 144 mmol/L [facility] Potassium 4.8 3.5 - 5.2 mmol/L [facility] Chloride 101 96 - 106 mmol/L [facility] Bicarbonate (CO2) 22 20 - 29 mmol/L [facility] Calcium 8.8 8.7 - 10.3 mg/dL [facility] Albumin 4.0 3.9 - 4.9 g/dL [facility] Phosphorus 4.0 3.0 - 4.3 mg/dL [facility] Blood (Blood, Venous) 03/24/2024 10:37 AM EST 03/24/2024 Barry Reyes MD LAB BLOOD ORDERABLES Final Re sult Performing Organization Address City/[facility]/ZIP Co de Phone Number [facility] [address] [place] [address] * Ferritin (03/24/2024 10:37 AM EST) Ferritin 37 15 - 150 ng/mL [facility] Blood (Blood, Venous) 03/24/2024 10:37 AM EST 03/24/2024 Barry Reyes MD LAB BLOOD ORDERABLES Final Re sult Performing Organization Address [facility] de Phone Number [facility] [address] [place] [address] * Iron Panel (Fe, TIBC, TSAT) (03/24/2024 10:37 AM EST) Pathologist [facility] TIBC 293 250 - 450 ug/dL [facility] UIBC 247 118 - 369 ug/dL [facility] Iron 46 27 - 139 ug/dL [facility] Iron Saturation (TSat) 16 15 - 55 % [facility] Blood (Blood, Venous) 03/24/2024 10:37 AM EST 03/24/2024 Barry Reyes MD LAB BLOOD ORDERABLES Final Re sult Performing Organization Address City/[facility]/ZIP Co de Phone Number [facility] [address] [place] [address] * (ABNORMAL) CBC and Differential (03/24/2024 10:37 AM EST) [facility] WBC 6.0 3.4 - 10.8 x10E3/uL [facility] RBC 5.21 3.77 - 5.28 x10E6/uL [facility] Hemoglobin 10.0(L) 11.1 - 15.9 g/dL [facility] Hematocrit 35.3 34.0 - 46.6 % [facility] MCV 68(L) 79 - 97 fL [facility] MCH 19.2(L) 26.6 - 33.0 pg [facility] MCHC 28.3(L) 31.5 - 35.7 g/dL [facility] RDW 19.4(H) 11.7 - 15.4 % [facility] Platelets 186 150 - 450 x10E3/uL [facility] Neutrophils Relative 65 Not Estab. % [facility] Lymphocytes Relative 26 Not Estab. % [facility] Monocytes 6 Not Estab. % [facility] Eosinophils Relative 2 Not Estab. % [facility] Basophils Relative 1 Not Estab. % [facility] Neutrophils Absolute 3.9 1.4 - 7.0 x10E3/uL [facility] Lymphocytes Absolute 1.5 0.7 - 3.1 x10E3/uL [facility] Monocytes Absolute 0.3 0.1 - 0.9 x10E3/uL [facility] Eosinophils Absolute 0.1 0.0 - 0.4 x10E3/uL [facility] Basophils Absolute 0.0 0.0 - 0.2 x10E3/uL [facility] Immature Granulocytes 0 Not Estab. % [facility] Immature Grans (Absolute) 0.0 0.0 - 0.1 x10E3/uL [facility] Blood (Blood, Venous) 03/24/2024 10:37 AM EST 03/24/2024 us Barry Reyes MD LAB BLOOD ORDERABLES Final Re sult [facility] [address] [place] [address] documented in this encounter Visit Diagnoses Diagnosis Chronic kidney disease, stage 2 (mild) Anemia in chronic kidney disease Iron deficiency anemia, not otherwise specified documented in this encounter Care Teams Furniture Mechanic Relationship Specialty Start Date End Date Sahra Son MD [address] [place] [address] PCP - General Internal Medicine 10/28/22 documented as of this encounter
--- OUTSIDE RECORDS SUMMARY | 2024-09-25 09:50 | XMS_ITS | Encounter Summary ---
Author Organization [facility] Address [address] [place] [address] Phone Care Team Providers Care Director Of Alumni Relations Name Role Phone Sahra Son MD Primary Care Provider + Encounter Details Date Type Department Care Team ([facility] Contact Info) Description 11/11/2023 Documentation Only [facility] [address] [place] [address] India Davalos [address] [place] [address] Social History Tobacco Use Types [...] [facility] [address] [place] [address] Barry Reyes MD [address] [place] [address] [place] [address] documented as of this encounter Visit Diagnoses Not on filedocumented in this encounter Care Teams Director Of Alumni Relations Relationship Specialty Start Date End Date Sahra Son MD [address] [address] PCP - General Internal Medicine 10/28/22 documented as of this encounter
--- OUTSIDE RECORDS SUMMARY | 2024-09-25 09:50 | XMS_ITS | Encounter Summary ---
Author Organization [facility] Address [address] [place] [address] Phone Care Team Providers Care Supervisor Of Way Name Role Phone Sahra Son MD Primary Care Provider + Encounter Details Date Type Department Care Team (Late st Contact Info) Description 01/31/2024 Orders Only [facility] [address] [facility] [place] [address] Arlene Alston PA Chronic kidney [...] [facility] [address] [facility] [place] [place] [address] Barry Reyes MD [address] [facility] [place] [address] documented as of this encounter Visit Diagnoses Diagnosis Chronic kidney disease, stage 2 (mild) Essential (primary) hypertension Iron deficiency anemia, not otherwise specified Type 2 diabetes mellitus, not otherwise specified (HCC) Antiphospholipid syndrome (HCC) documented in this encounter Care Teams Supervisor Of Way Relationship Specialty Start Date End Date Sahra Son MD [address] [place] [address] PCP - General Internal Medicine 10/28/22 documented as of this encounter
--- OUTSIDE RECORDS SUMMARY | 2024-09-25 09:50 | XMS_ITS | Encounter Summary ---
Author Organization [facility] Address [address] [place] [address] Phone Care Team Providers Care Speeder Tender Name Role Phone Sahra Son MD Primary Care Provider + Encounter Details Date Type Department Care Team ([facility] Contact Info) Description 11/30/2023 Documentation Only [facility] [address] [place] [address] India Davalos [address] [place] [address] Social History Tobacco Use Types [...] [facility] [address] [place] [address] Barry Reyes MD [address] [place] [address] [place] [address] documented as of this encounter Visit Diagnoses Not on filedocumented in this encounter Care Teams Speeder Tender Relationship Specialty Start Date End Date Sahra Son MD [address] [address] PCP - General Internal Medicine 10/28/22 documented as of this encounter
--- OUTSIDE RECORDS SUMMARY | 2024-09-25 09:50 | XMS_ITS | Encounter Summary ---
Author Organization [facility] Address [address] [place] [address] Phone Care Team Providers Care Seed Technician Name Role Phone Sahra Son MD Primary Care Provider + Encounter Details Date Type Department Care Team ([facility] Contact Info) Description 08/24/2024 Documentation Only [facility] [address] [place] [address] India Davalos [address] [place] [address] Social History Tobacco Use Types [...] [facility] [address] [place] [address] Barry Reyes MD [address] [place] [address] [place] [address] documented as of this encounter Visit Diagnoses Not on filedocumented in this encounter Care Teams Seed Technician Relationship Specialty Start Date End Date Sahra Son MD [address] [address] PCP - General Internal Medicine 10/28/22 documented as of this encounter
--- OUTSIDE RECORDS SUMMARY | 2024-09-25 09:50 | XMS_ITS | Encounter Summary ---
Author Organization [facility] Address [address] [place] [address] Phone Care Team Providers Care Drawer In Stitch Bonding Machine Name Role Phone Sahra Son MD Primary Care Provider + Encounter Details Date Type Department Care Team ([facility] Contact Info) Description 03/11/2023 Documentation Only [facility] [address] [place] [address] India Davalos [address] [place] [address] Social History Tobacco Use Types [...] Upcoming Encounters Date Type Department Care Team ([facility] Contact Info) Description 11/23/2024 12:50 PM EDT Office Visit [facility] [address] [place] [address] Barry Reyes MD [address] [place] [address] [place] [address] documented as of this encounter Visit Diagnoses Not on filedocumented in this encounter Care Teams Drawer In Stitch Bonding Machine Relationship Specialty Start Date End Date Sahra Son MD [address] [address] PCP - General Internal Medicine 10/28/22 documented as of this encounter
--- OUTSIDE RECORDS SUMMARY | 2024-09-25 09:50 | XMS_ITS | Encounter Summary ---
Author Organization [facility] Address [address] [place] [address] Phone Care Team Providers Care Winding Inspector Name Role Phone Sahra Son MD Primary Care Provider + Encounter Details Date Type Department Care Team ([facility] Contact Info) Description 01/06/2022 Documentation Only [facility] [address] [place] [address] Juan Jose Li MD [address] [place] [address] [place] [address] Social History Tobacco Use Types [...] Upcoming Encounters Date Type Department Care Team ([facility] Contact Info) Description 11/23/2024 12:50 PM EDT Office Visit [facility] [address] [place] [address] Barry Reyes MD [address] [place] [address] [place] [address] documented as of this encounter Visit Diagnoses Not on filedocumented in this encounter Care Teams Winding Inspector Relationship Specialty Start Date End Date Sahra Son MD [address] [address] PCP - General Internal Medicine 10/28/22 documented as of this encounter
--- OUTSIDE RECORDS SUMMARY | 2024-09-25 09:50 | XMS_ITS | Encounter Summary ---
Author Organization [facility] Address [address] [place] [address] Phone Care Team Providers Care Honest John Rocket Crew Member Name Role Phone Sahra Son MD Primary Care Provider + Encounter Details Date Type Department Care Team ([facility] Contact Info) Description 08/22/2021 Documentation Only [facility] [address] [place] [address] India Davalos [address] [place] [address] Social History Tobacco Use [...] [facility] [address] [place] [place] [address] Barry Reyes MD [address] [place] [address] [place] [address] documented as of this encounter Visit Diagnoses Not on filedocumented in this encounter Care Teams Honest John Rocket Crew Member Relationship Specialty Start Date End Date Sahra Son MD [address] [address] PCP - General Internal Medicine 10/28/22 documented as of this encounter
--- OUTSIDE RECORDS SUMMARY | 2024-09-25 09:50 | XMS_ITS | Encounter Summary ---
Author Organization [facility] Address [address] [place] [address] Phone Care Team Providers Care Desk Monitor Name Role Phone Sahra Son MD Primary Care Provider + Encounter Details Date Type Department Care Team ([facility] Contact Info) Description 11/11/2023 Documentation Only [facility] [address] [place] [address] India Davalos [address] [place] [address] Social History Tobacco Use Types [...] [facility] [address] [place] [address] Barry Reyes MD [address] [place] [address] [place] [address] documented as of this encounter Visit Diagnoses Not on filedocumented in this encounter Care Teams Desk Monitor Relationship Specialty Start Date End Date Sahra Son MD [address] [address] PCP - General Internal Medicine 10/28/22 documented as of this encounter
--- OUTSIDE RECORDS SUMMARY | 2024-09-25 09:50 | XMS_ITS | Encounter Summary ---
Author Organization [facility] Address [address] [place] [address] Phone Care Team Providers Care Fire Hose Curer Name Role Phone Sahra Son MD Primary Care Provider + Encounter Details Date Type Department Care Team ([facility] Contact Info) Description 11/11/2023 Documentation Only [facility] [address] [place] [address] India Davalos [address] [place] [address] Social History Tobacco Use [...] [facility] [address] [place] [address] Barry Reyes MD [address] [place] [address] [place] [address] documented as of this encounter Visit Diagnoses Not on filedocumented in this encounter Care Teams Fire Hose Curer Relationship Specialty Start Date End Date Sahra Son MD [address] [address] PCP - General Internal Medicine 10/28/22 documented as of this encounter
--- OUTSIDE RECORDS SUMMARY | 2024-09-25 09:50 | XMS_ITS | Encounter Summary ---
Author Organization [facility] Address [address] [place] [address] Phone Care Team Providers Care Director Of Marketing [employer] Performance Ads Name Role Phone Sahra Son MD Primary Care Provider + Encounter Details Date Type Department Care Team ([facility] Contact Info) Description 11/19/2023 Documentation Only [facility] [address] [place] [address] India Davalos [address] [place] [address] Social History Tobacco Use Types [...] [facility] [address] [place] [address] Barry Reyes MD [address] [place] [address] [place] [address] documented as of this encounter Visit Diagnoses Not on filedocumented in this encounter Care Teams Director Of Marketing [employer] Performance Ads Relationship Specialty Start Date End Date Sahra Son MD [address] [address] PCP - General Internal Medicine 10/28/22 documented as of this encounter
--- OUTSIDE RECORDS SUMMARY | 2024-09-25 09:50 | XMS_ITS | Encounter Summary ---
Author Organization [facility] Address [address] [place] [address] Phone Care Team Providers Care High School Learning Support Teacher Name Role Phone Sahra Son MD Primary Care Provider + Encounter Details Date Type Department Care Team ([facility] Contact Info) Description 03/11/2023 Documentation Only [facility] [address] [place] [address] India Davalos [address] [place] [address] Social History Tobacco Use Types [...] Upcoming Encounters Date Type Department Care Team ([facility] Contact Info) Description 11/23/2024 12:50 PM EDT Office Visit [facility] [address] [place] [address] Barry Reyes MD [address] [place] [address] [place] [address] documented as of this encounter Visit Diagnoses Not on filedocumented in this encounter Care Teams High School Learning Support Teacher Relationship Specialty Start Date End Date Sahra Son MD [address] [address] PCP - General Internal Medicine 10/28/22 documented as of this encounter
--- OUTSIDE RECORDS SUMMARY | 2024-09-25 09:50 | XMS_ITS | Encounter Summary ---
Author Organization [facility] Address [address] [place] [address] Phone Care Team Providers Care Internal Medicine Hospitalist Name Role Phone Sahra Son MD Primary Care Provider + Encounter Details Date Type Department Care Team ([facility] Contact Info) Description 01/04/2024 Documentation Only [facility] [address] [place] [address] India Davalos [address] [place], [...] [facility] [address] [place] [address] Barry Reyes MD [address] [place] [address] [place] [address] documented as of this encounter Visit Diagnoses Not on filedocumented in this encounter Care Teams Internal Medicine Hospitalist Relationship Specialty Start Date End Date Sahra Son MD [address] [address] PCP - General Internal Medicine 10/28/22 documented as of this encounter
--- OUTSIDE RECORDS SUMMARY | 2024-09-25 09:50 | XMS_ITS | Encounter Summary ---
Author Organization [facility] Address [address] [place] [address] Phone Care Team Providers Care Real Estate Loan Processor Name Role Phone Sahra Son MD Primary Care Provider + Encounter Details Date Type Department Care Team ([facility] Contact Info) Description 04/08/2022 Documentation Only [facility] [address] [place] [address] India Davalos [address] [place] [address] Social History Tobacco Use Types [...] [facility] Contact Info) Description 11/23/2024 12:50 PM EDT Office Visit [facility] [address] [place] [address] Barry Reyes MD [address] [place] [address] [place] [address] documented as of this encounter Visit Diagnoses Not on filedocumented in this encounter Care Teams Real Estate Loan Processor Relationship Specialty Start Date End Date Sahra Son MD [address] [address] PCP - General Internal Medicine 10/28/22 documented as of this encounter
--- OUTSIDE RECORDS SUMMARY | 2024-09-25 09:50 | XMS_ITS | Encounter Summary ---
Author Organization [facility] Address [address] [place] [address] Phone Care Team Providers Care Dust Control Engineer Name Role Phone Sahra Son MD Primary Care Provider + Encounter Details Date Type Department Care Team ([facility] Contact Info) Description 11/11/2023 Documentation Only [facility] [address] [place] [address] India Davalos [address] [place] [address] Social History Tobacco Use Types [...] [facility] [address] [place] [address] Barry Reyes MD [address] [place] [address] [place] [address] documented as of this encounter Visit Diagnoses Not on filedocumented in this encounter Care Teams Dust Control Engineer Relationship Specialty Start Date End Date Sahra Son MD [address] [address] PCP - General Internal Medicine 10/28/22 documented as of this encounter
--- OUTSIDE RECORDS SUMMARY | 2024-09-25 09:50 | XMS_ITS | Encounter Summary ---
Author Organization [facility] Address [address] [place] [address] Phone Care Team Providers Care Fabrication Lead Name Role Phone Sahra Son MD Primary Care Provider + Encounter Details Date Type Department Care Team ([facility] Contact Info) Description 08/28/2024 Documentation Only [facility] [address] [place] [address] India Davalos [address] [place] [address] Social History Tobacco Use [...] [facility] [address] [place] [address] Barry Reyes MD [address] [place] [address] [place] [address] documented as of this encounter Visit Diagnoses Not on filedocumented in this encounter Care Teams Fabrication Lead Relationship Specialty Start Date End Date Sahra Son MD [address] [address] PCP - General Internal Medicine 10/28/22 documented as of this encounter
--- OUTSIDE RECORDS SUMMARY | 2024-09-25 09:50 | XMS_ITS | Encounter Summary ---
Author Organization [facility] Address [address] [place] [address] Phone Care Team Providers Care Telegraph And Teletype Operator Name Role Phone Sahra Son MD Primary Care Provider + Encounter Details Date Type Department Care Team ([facility] Contact Info) Description 03/23/2024 Documentation Only [facility] [address] [place] [address] India Davalos [address] [place] [address] Social History Tobacco Use Types [...] Upcoming Encounters Date Type Department Care Team ([facility] Contact Info) Description 11/23/2024 12:50 PM EDT Office Visit [facility] [address] [place] [address] Barry Reyes MD [address] [place] [address] [place] [address] documented as of this encounter Visit Diagnoses Not on filedocumented in this encounter Care Teams Telegraph And Teletype Operator Relationship Specialty Start Date End Date Sahra Son MD [address] [address] PCP - General Internal Medicine 10/28/22 documented as of this encounter
--- OUTSIDE RECORDS SUMMARY | 2024-09-25 09:50 | XMS_ITS | Encounter Summary ---
Author Organization [facility] Address [address] [place] [address] Phone Care Team Providers Care Wallpaper Embosser Helper Name Role Phone Sahra Son MD Primary Care Provider + Encounter Details Date Type Department Care Team ([facility] Contact Info) Description 03/22/2024 Documentation Only [facility] [address] [place] [address] India Davalos [address] [place] [address] Social History Tobacco Use Types [...] [facility] [address] [place] [address] Barry Reyes MD [address] [place] [address] [place] [address] documented as of this encounter Visit Diagnoses Not on filedocumented in this encounter Care Teams Wallpaper Embosser Helper Relationship Specialty Start Date End Date Sahra Son MD [address] [address] PCP - General Internal Medicine 10/28/22 documented as of this encounter
--- OUTSIDE RECORDS SUMMARY | 2024-09-25 09:50 | XMS_ITS | Encounter Summary ---
Author Organization [facility] Address [address] [place] [address] Phone Care Team Providers Care Process Improvement Manager Name Role Phone Sahra Son MD Primary Care Provider + Encounter Details Date Type Department Care Team (Late Contact Info) Description 02/04/2024 Orders Only [facility] [address] [facility] [place] [address] India Davalos [address] [place] [address] Chronic kidney disease, stage 2 [...] Services Of [facility] [address] [facility] [place] [address] Barry Reyes MD [address] [place] [address] [place] [address] documented as of this encounter [...] Glucose 169(H) 70 - 99 mg/dL [facility] BUN 16 8 - 27 mg/dL [facility] Creatinine 1.00 0.57 - 1.00 mg/dL [facility] eGFR CKD-EPI CR 2020 63 >59 mL/min/1.7 3 [facility] BUN/Creatinine Ratio 16 12 - 28 [facility] Sodium 138 134 - 144 mmol/L [facility] Potassium 4.8 3.5 - 5.2 mmol/L [facility] Chloride 100 96 - 106 mmol/L [facility] Bicarbonate (CO2) 22 20 - 29 mmol/L [facility] Calcium 9.1 8.7 - 10.3 mg/dL [facility] Albumin 4.1 3.9 - 4.9 g/dL [facility] Phosphorus 4.2 3.0 - 4.3 mg/dL [facility] Blood (Blood, Venous) 02/22/2024 8:29 AM EDT 02/22/2024 Barry Reyes MD LAB BLOOD ORDERABLES Final Re sult Performing Organization Address [facility]/ZIP Co de Phone Number [facility] [address] [place] [address] * Ferritin (02/22/2024 8:29 AM EDT) Ferritin 47 15 - 150 ng/mL [facility] Blood (Blood, Venous) 02/22/2024 8:29 AM EDT 02/22/2024 Barry Reyes MD LAB BLOOD ORDERABLES Final Re sult Performing Organization Address [facility] de Phone Number [facility] [address] [place] [address] * (ABNORMAL) Iron Panel (Fe, TIBC, TSAT) (02/22/2024 8:29 AM EDT) Iron 39 27 - 139 ug/dL [facility] TIBC 310 250 - 450 ug/dL [facility] UIBC 271 118 - 369 ug/dL [facility] Iron Saturation (TSat) 13(L) 15 - 55 % [facility] Blood (Blood, Venous) 02/22/2024 8:29 AM EDT 02/22/2024 Barry Reyes MD LAB BLOOD ORDERABLES Final Re sult Performing Organization Address City/[facility]/ZIP Co de Phone Number [facility] [address] [place] [address] * (ABNORMAL) CBC and Differential (02/22/2024 8:29 AM EDT) [facility] Signature WBC 5.9 3.4 - 10.8 x10E3/uL [facility] RBC 5.33(H) 3.77 - 5.28 x10E6/uL [facility] Hemoglobin 10.3(L) 11.1 - 15.9 g/dL [facility] Hematocrit 35.1 34.0 - 46.6 % [facility] MCV 66(L) 79 - 97 fL [facility] MCH 19.3(L) 26.6 - 33.0 pg [facility] MCHC 29.3(L) 31.5 - 35.7 g/dL [facility] RDW 19.3(H) 11.7 - 15.4 % [facility] Platelets 174 150 - 450 x10E3/uL [facility] Neutrophils Relative 71 Not Estab. % [facility] Lymphocytes Relative 21 Not Estab. % [facility] Monocytes 5 Not Estab. % [facility] Eosinophils Relative 1 Not Estab. % [facility] Basophils Relative 1 Not Estab. % [facility] Neutrophils Absolute 4.2 1.4 - 7.0 x10E3/uL [facility] Lymphocytes Absolute 1.3 0.7 - 3.1 x10E3/uL [facility] Monocytes Absolute 0.3 0.1 - 0.9 x10E3/uL [facility] Eosinophils Absolute 0.1 0.0 - 0.4 x10E3/uL [facility] Basophils Absolute 0.0 0.0 - 0.2 x10E3/uL [facility] Immature Granulocytes 1 Not Estab. % [facility] Immature Grans (Absolute) 0.0 0.0 - 0.1 x10E3/uL [facility] Blood (Blood, Venous) 02/22/2024 8:29 AM EDT 02/22/2024 us Barry Reyes MD LAB BLOOD ORDERABLES Final Re sult [facility] [address] [place] [address] documented in this encounter Visit Diagnoses Diagnosis Chronic kidney disease, stage 2 (mild) Anemia in chronic kidney disease Iron deficiency anemia, not otherwise specified documented in this encounter Care Teams Process Improvement Manager Relationship Specialty Start Date End Date Sahra Son MD [address] [place] [address] PCP - General Internal Medicine 10/28/22 documented as of this encounter
--- OUTSIDE RECORDS SUMMARY | 2024-09-25 09:50 | XMS_ITS | Encounter Summary ---
Author Organization [facility] Address [address] [place] [address] Phone Care Team Providers Care Cable Tester Name Role Phone Sahra Son MD Primary Care Provider + Encounter Details Date Type Department Care Team (Late Contact Info) Description 08/18/2024 Orders Only [facility] [address] [place] [address] India Davalos [address] [place] [address] Chronic kidney disease, stage 2 [...] Visit [facility] [address] [facility] [place] [address] Barry Reyes MD [address] [place] [address] [place] [address] documented as of this encounter Visit Diagnoses Diagnosis Chronic kidney disease, stage 2 (mild) Anemia in chronic kidney disease Iron deficiency anemia, not otherwise specified documented in this encounter Care Teams Cable Tester Relationship Specialty Start Date End Date Sahra Son MD [facility] [place] [address] PCP - General Internal Medicine 10/28/22 documented as of this encounter
--- OUTSIDE RECORDS SUMMARY | 2024-09-25 09:50 | XMS_ITS | Encounter Summary ---
Author Organization [facility] Address [address] [place] [address] Phone Care Team Providers Care Superintendent Pier Name Role Phone Sahra Son MD Primary Care Provider + Encounter Details Date Type Department Care Team ([facility] Contact Info) Description 03/11/2023 Documentation Only [facility] [address] [place] [address] India Davalos [address] [place] [address] Social History Tobacco Use Types [...] Services Of [address] [place] [address] Barry Reyes MD [address] [place] [address] [place] [address] documented as of this encounter Visit Diagnoses Not on filedocumented in this encounter Care Teams Superintendent Pier Relationship Specialty Start Date End Date Sahra Son MD [address] [address] PCP - General Internal Medicine 10/28/22 documented as of this encounter
--- OUTSIDE RECORDS SUMMARY | 2024-09-25 09:50 | XMS_ITS | Encounter Summary ---
Author Organization [facility] Address [address] [place] [address] Phone Care Team Providers Care Kitchen And Counter Worker Name Role Phone Sahra Son MD Primary Care Provider + Encounter Details Date Type Department Care Team ([facility] Contact Info) Description 06/22/2022 Documentation Only [facility] [address] [place] [address] India Davalos [address] [place] [address] Social History Tobacco Use Types [...] [facility] [address] [place] [address] Barry Reyes MD [address] [place] [address] [place] [address] documented as of this encounter Visit Diagnoses Not on filedocumented in this encounter Care Teams Kitchen And Counter Worker Relationship Specialty Start Date End Date Sahra Son MD [address] [address] PCP - General Internal Medicine 10/28/22 documented as of this encounter
--- OUTSIDE RECORDS SUMMARY | 2024-09-25 09:50 | XMS_ITS | Encounter Summary ---
Author Organization [facility] Address [address] [place] [address] Phone Care Team Providers Care Press Smith Helper Name Role Phone Sahra Son MD Primary Care Provider + Encounter Details Date Type Department Care Team ([facility] Contact Info) Description 11/17/2023 Documentation Only [facility] [address] [place] [address] India Davalos [address] [place] [address] Social History Tobacco Use Types [...] [facility] [address] [place] [address] Barry Reyes MD [address] [place] [address] [place] [address] documented as of this encounter Visit Diagnoses Not on filedocumented in this encounter Care Teams Press Smith Helper Relationship Specialty Start Date End Date Sahra Son MD [address] [address] PCP - General Internal Medicine 10/28/22 documented as of this encounter
--- OUTSIDE RECORDS SUMMARY | 2024-09-25 09:50 | XMS_ITS | Encounter Summary ---
Author Organization [facility] Address [address] [place] [address] Phone Care Team Providers Care Assistant Community Director Name Role Phone Sahra Son MD Primary Care Provider + Encounter Details Date Type Department Care Team ([facility] Contact Info) Description 04/14/2022 Documentation Only [facility] [address] [place] [address] India Davalos [address] [place] [address] Social History Tobacco Use Types [...] Upcoming Encounters Date Type Department Care Team ([facility] Contact Info) Description 11/23/2024 12:50 PM EDT Office Visit [facility] [address] [place] [address] Barry Reyes MD [address] [place] [address] [place] [address] documented as of this encounter Visit Diagnoses Not on filedocumented in this encounter Care Teams Assistant Community Director Relationship Specialty Start Date End Date Sahra Son MD [address] [address] PCP - General Internal Medicine 10/28/22 documented as of this encounter
--- OUTSIDE RECORDS SUMMARY | 2024-09-25 09:50 | XMS_ITS | Encounter Summary ---
Author Organization [facility] Address [address] [place] [address] Phone Care Team Providers Care Vp Integrity Name Role Phone Sahra Son MD Primary Care Provider + Encounter Details Date Type Department Care Team (Late st Contact Info) Description 07/07/2024 Orders Only [facility] [address] [place] [address] India Davalos [address] [place] [address] Anemia in chronic kidney disease; [...] Visit [facility] [address] [facility] [place] [address] Barry Reyes MD [address] [facility] [place] [address] documented as of this encounter Visit Diagnoses Diagnosis Anemia in chronic kidney disease Other iron deficiency anemia Chronic kidney disease, stage 2 (mild) documented in this encounter Care Teams Vp Integrity Relationship Specialty Start Date End Date Sahra Son MD [facility] [place] [address] PCP - General Internal Medicine 10/28/22 documented as of this encounter
--- OUTSIDE RECORDS SUMMARY | 2024-09-25 09:50 | XMS_ITS | Encounter Summary ---
Author Organization [facility] Address [address] [place] [address] Phone Care Team Providers Care Transport Aircrewman Name Role Phone Sahra Son MD Primary Care Provider + Encounter Details Date Type Department Care Team ([facility] Contact Info) Description 08/11/2022 Documentation Only [facility] [address] [place] [address] India Davalos [address] [place], [place] [...] [facility] [address] [place] [address] Barry Reyes MD [address] [place] [address] [place] [address] documented as of this encounter Visit Diagnoses Not on filedocumented in this encounter Care Teams Transport Aircrewman Relationship Specialty Start Date End Date Sahra Son MD [address] [address] PCP - General Internal Medicine 10/28/22 documented as of this encounter
--- OUTSIDE RECORDS SUMMARY | 2024-09-25 09:50 | XMS_ITS | Encounter Summary ---
Author Organization [facility] Address [address] [place] [address] Phone Care Team Providers Care Deck Mate Name Role Phone Sahra Son MD Primary Care Provider + Encounter Details Date Type Department Care Team (Late Contact Info) Description 06/30/2020 Orders Only [facility] [address] [place] [address] Carol Whelan [address] [place] [address] Iron deficiency anemia, not otherwise [...] Visit [facility] [address] [place] [address] Barry Reyes MD [address] [facility] [place] [address] documented as of this encounter Visit Diagnoses Diagnosis Iron deficiency anemia, not otherwise specified Chronic kidney disease, Stage II (mild) documented in this encounter Care Teams Deck Mate Relationship Specialty Start Date End Date Sahra Son MD [address] [place] [address] PCP - General Internal Medicine 10/28/22 documented as of this encounter
--- OUTSIDE RECORDS SUMMARY | 2024-09-25 09:50 | XMS_ITS | Encounter Summary ---
Author Organization [facility] Address [address] [place] [address] Phone Care Team Providers Care Security Operations Analyst Name Role Phone Sahra Son MD Primary Care Provider + Encounter Details Date Type Department Care Team ([facility] Contact Info) Description 11/05/2023 Documentation Only [facility] [address] [place] [address] India Davalos [address] [place] [address] Social History Tobacco Use Types [...] Encounters Date Type Department Care Team ([facility] Contact Info) Description 11/23/2024 12:50 PM EDT Office Visit [facility] [address] [place] [address] Barry Reyes MD [address] [place] [address] [place] [address] documented as of this encounter Visit Diagnoses Not on filedocumented in this encounter Care Teams Security Operations Analyst Relationship Specialty Start Date End Date Sahra Son MD [address] [address] PCP - General Internal Medicine 10/28/22 documented as of this encounter
--- OUTSIDE RECORDS SUMMARY | 2024-09-25 09:50 | XMS_ITS | Encounter Summary ---
Author Organization [facility] Address [address] [place] [address] Phone Care Team Providers Care Supervisor Drilling And Shooting Name Role Phone Sahra Son MD Primary Care Provider + Encounter Details Date Type Department Care Team ([facility] Contact Info) Description 12/31/2023 Documentation Only [facility] [address] [place] [address] India Davalos [address] [place] [address] Social History Tobacco Use Types [...] [facility] [address] [place] [address] Barry Reyes MD [address] [place] [address] [place] [address] documented as of this encounter Visit Diagnoses Not on filedocumented in this encounter Care Teams Supervisor Drilling And Shooting Relationship Specialty Start Date End Date Sahra Son MD [address] [address] PCP - General Internal Medicine 10/28/22 documented as of this encounter
--- OUTSIDE RECORDS SUMMARY | 2024-09-25 09:50 | XMS_ITS | Encounter Summary ---
Author Organization [facility] Address [address] [place] [address] Phone Care Team Providers Care Integration Specialist Name Role Phone Sahra Son MD Primary Care Provider + Encounter Details Date Type Department Care Team ([facility] Contact Info) Description 08/25/2024 Documentation Only [facility] Of [address] [place] [address] India Davalos [address] [place] [address] Social History Tobacco Use Types [...] Upcoming Encounters Date Type Department Care Team ([facility] Contact Info) Description 11/23/2024 12:50 PM EDT Office Visit [facility] [address] [place] [address] Barry Reyes MD [address] [place] [address] [place] [address] documented as of this encounter Visit Diagnoses Not on filedocumented in this encounter Care Teams Integration Specialist Relationship Specialty Start Date End Date Sahra Son MD [address] [address] PCP - General Internal Medicine 10/28/22 documented as of this encounter
--- OUTSIDE RECORDS SUMMARY | 2024-09-25 09:50 | XMS_ITS | Encounter Summary ---
Author Organization [facility] Address [address] [place] [address] Phone Care Team Providers Care Office Administrator Name Role Phone Shara Son MD Primary Care Provider + Encounter Details Date Type Department Care Team ([facility] Contact Info) Description 08/11/2022 Documentation Only [facility] [address] [place] [address] India Davalos [address] [place] [address] Social History Tobacco Use Types [...] [facility] [address] [place] [address] Barry Reyes MD [address] [place] [address] [place] [address] documented as of this encounter Visit Diagnoses Not on filedocumented in this encounter Care Teams Office Administrator Relationship Specialty Start Date End Date Sahra Son MD [address] [address] PCP - General Internal Medicine 10/28/22 documented as of this encounter
--- OUTSIDE RECORDS SUMMARY | 2024-09-25 09:50 | XMS_ITS | Encounter Summary ---
Author Organization [facility] Address [address] [place] [address] Phone Care Team Providers Care Sound Engineer Name Role Phone Sahra Son MD Primary Care Provider + Encounter Details Date Type Department Care Team ([facility] Contact Info) Description 11/11/2023 Documentation Only [facility] [address] [place] [address] India Davalos [address] [place] [address] Social History Tobacco Use Types [...] [facility] [address] [place] [address] Barry Reyes MD [address] [place] [address] [place] [address] documented as of this encounter Visit Diagnoses Not on filedocumented in this encounter Care Teams Sound Engineer Relationship Specialty Start Date End Date Sahra Son MD [address] [address] PCP - General Internal Medicine 10/28/22 documented as of this encounter
--- OUTSIDE RECORDS SUMMARY | 2024-09-25 09:50 | XMS_ITS | Encounter Summary ---
Author Organization [facility] Address [address] [place] [address] Phone Care Team Providers Care Law Office Receptionist Name Role Phone Sahra Son MD Primary Care Provider + Encounter Details Date Type Department Care Team ([facility] Contact Info) Description 06/16/2022 Documentation Only [facility] [address] [place] [address] India Davalos [address] [place] [address] Social History Tobacco Use Types [...] [facility] [address] [place] [address] Barry Reyes MD [address] [place] [address] [place] [address] documented as of this encounter Visit Diagnoses Not on filedocumented in this encounter Care Teams Law Office Receptionist Relationship Specialty Start Date End Date Sahra Son MD [address] [address] PCP - General Internal Medicine 10/28/22 documented as of this encounter
--- OUTSIDE RECORDS SUMMARY | 2024-09-25 09:50 | XMS_ITS | Encounter Summary ---
Author Organization [facility] Address [address] [place] [address] Phone Care Team Providers Care Chief Nurse Executive Name Role Phone Sahra Son MD Primary Care Provider + Encounter Details Date Type Department Care Team ([facility] Contact Info) Description 11/11/2023 Documentation Only [facility] [address] [place] [address] India Davalos [address] [place] [address] Social History Tobacco Use Types [...] [facility] [address] [place] [address] Barry Reyes MD [address] [place] [address] [place] [address] documented as of this encounter Visit Diagnoses Not on filedocumented in this encounter Care Teams Chief Nurse Executive Relationship Specialty Start Date End Date Sahra Son MD [address] [address] PCP - General Internal Medicine 10/28/22 documented as of this encounter
--- OUTSIDE RECORDS SUMMARY | 2024-09-25 09:50 | XMS_ITS | Encounter Summary ---
Author Organization [facility] Address [address] [place] [address] Phone Care Team Providers Care Manager Infrastructure Name Role Phone Sahra Son MD Primary Care Provider + Encounter Details Date Type Department Care Team ([facility] Contact Info) Description 11/21/2021 Documentation Only [facility] [address] [address] India Davalos [address] [place] [address] Social History Tobacco Use Types [...] [facility] [address] [place] [address] Barry Reyse MD [address] [place] [address] [place] [address] documented as of this encounter Visit Diagnoses Not on filedocumented in this encounter Care Teams Manager Infrastructure Relationship Specialty Start Date End Date Sahra Son MD [address] [address] PCP - General Internal Medicine 10/28/22 documented as of this encounter
--- OUTSIDE RECORDS SUMMARY | 2024-09-25 09:50 | XMS_ITS | Encounter Summary ---
Author Organization [facility] Address [address] [place] [address] Phone Care Team Providers Care Genomics Scientist Name Role Phone Sahra Son MD Primary Care Provider + Encounter Details Date Type Department Care Team (Late st Contact Info) Description 06/09/2024 Orders Only [facility] [address] [place] [address] India Davalos [address] [place] [address] Anemia in chronic kidney disease; [...] And Transplant Services Of [facility] [address] [place] [address] Barry Reyes MD [address] [facility] [place] [address] documented as of this encounter Visit Diagnoses Diagnosis Anemia in chronic kidney disease Other iron deficiency anemia Chronic kidney disease, stage 2 (mild) documented in this encounter Care Teams Genomics Scientist Relationship Specialty Start Date End Date Sahra Son MD [facility] [place] [address] PCP - General Internal Medicine 10/28/22 documented as of this encounter
--- OUTSIDE RECORDS SUMMARY | 2024-09-25 09:50 | XMS_ITS | Encounter Summary ---
Author Organization [facility] Address [address] [place] [address] Phone Care Team Providers Care Supervisor Slate Splitting Name Role Phone Sahra Son MD Primary Care Provider + Encounter Details Date Type Department Care Team (Late Contact Info) Description 05/17/2023 Orders Only [facility] [address] [place] [address] Arlene Alston PA Chronic kidney [...] [facility] [address] [place] [address] Barry Reyes MD [address] [place] [address] [place] [address] documented as of this encounter [...] (Fe, TIBC, TSAT) (06/08/2023 8:36 AM EST) [facility] Iron 49 (30-160) MCG/DL [facility] UIBC 246 (110-370) MCG/DL [facility] TIBC 295 (140-530) MCG/DL [facility] Iron Saturation (TSat) 17(L) (20-55) % [facility] Comment: Testing performed or reported by [facility], [facility], a Service of [address] [address] Luis A Bailey MD, Golf Cart Assembler CLIA# [id number] Blood (Blood, Venous) 06/08/2023 8:36 AM EST 06/08/2023 8:39 AM EST Arlene CARTER LAB BLOOD ORDERABLES Final Re sult Performing Organization Address [facility] de Phone Number [facility] * Vitamin D 25 hydroxy (06/08/2023 8:36 AM EST) Pathologist [facility] Vitamin D, 25-Hydroxy 24.8 (20-50) NG/ML [facility] Comment: Testing performed or reported by [facility], [facility], a Service of [address] [address] Luis A Bailey MD, Golf Cart Assembler CLIA# [id number] Blood (Blood, Venous) 06/08/2023 8:36 AM EST 06/08/2023 8:39 AM EST Arlene CARTER LAB BLOOD ORDERABLES Final Re sult Performing Organization Address [facility] de Phone Number [facility] * (ABNORMAL) Renal function panel (06/08/2023 8:36 AM EST) Glucose 166(H) (70-99) MG/DL [facility] BUN 19 (8-23) MG/DL [facility] Creatinine 1.0 (0.5-1.0) MG/DL [facility] Sodium 138 (133-145) MMOL/L [facility] Potassium 4.9 (3.6-5.2) MMOL/L [facility] Chloride 101 (98-107) MMOL/L [facility] Bicarbonate (CO2) 27 (22-29) MMOL/L [facility] Anion Gap 10 (4-17) [facility] Albumin 4.2 (3.4-4.8) GM/DL [facility] Calcium 9.1 (8.6-10.5) MG/DL [facility] Phosphorus, Serum 3.4 (2.5-4.5) MG/DL [facility] Est GFR Non 66 ML/MIN/1.7 3 M2 [facility] Comment: Creatinine based estimated glomerular filtration (eGFR) in adults is calculated using the National [employer] recommended 2020 CKD-EPI equation. Estimates GFR from serum creatinine, age and sex. Testing performed or reported by [facility], [facility], a Service of [address] [address] Luis A Bailey MD, Golf Cart Assembler CLIA# [id number] Blood (Blood, Venous) 06/08/2023 8:36 AM EST 06/08/2023 8:39 AM EST Arlene CARTER LAB BLOOD ORDERABLES Final Re sult Performing Organization Address [facility] de Phone Number [facility] * Magnesium (06/08/2023 8:36 AM EST) Magnesium 2.1 (1.6-2.3) mg/dL [facility] Comment: Testing performed or reported by [facility], [facility], a Service of [facility], [address] [place] [address] Luis A Baiely MD, Golf Cart Assembler CLIA# [id number] Blood (Blood, Venous) 06/08/2023 8:36 AM EST 06/08/2023 8:39 AM EST Arlene CARTER LAB BLOOD ORDERABLES Final Re sult Performing Organization Address [facility] de Phone Number [facility] * (ABNORMAL) Hemoglobin A1c (06/08/2023 8:36 [...] Center, [facility], a Service of [facility], [address] [place] [address] Luis A Bailey MD, Golf Cart Assembler [facility]# [id number] Blood (Blood, Venous) 06/08/2023 8:36 AM EST 06/08/2023 8:38 AM EST us Arlene CARTER LAB BLOOD ORDERABLES Final Re sult [facility] * (ABNORMAL) CBC and differential (06/08/2023 8:36 AM EST) White Blood Cells 5.2 (4.0-11.0 ) K/MM3 [facility] RBC 5.08 (4.20-5.4 0) M/MM3 [facility] Hgb 10.1(L) (11.7-15. 5) GM/DL [facility] Hematocrit 32.9(L) (35.7-45. 8) % [facility] MCV 64.8(L) (80.0-100 .0) FL [facility] MCH 19.9(L) (27.0-34. 0) PG [facility] MCHC 30.7(L) (33.0-37. 0) g/dL [facility] Platelets 191 (150-460) K/MM3 [facility] RDW-SD 40.3 (<47.0) FL [facility] MPV NOT MEASURED (9.4-12.4 ) FL [facility] nRBC Count 0.0 #/100 WBC'S [facility] NRBC Absolute 0.0 K/MM3 [facility] Neutrophils Abs Auto 3.5 (1.3-7.0) K/MM3 [facility] Lymphocytes Relative 1.3 (0.8-3.1) K/MM3 [facility] Monocytes 0.3(L) (0.4-0.9) K/MM3 [facility] Eosinophils Relative 0.1 (0.0-0.4) K/MM3 [facility] Basophil ABS 0.0 (0.0-0.1) K/MM3 [facility] Granulocytes Absolute 0.0 K/MM3 [facility] Neutrophils % Auto 67.3 (44-76) % [facility] Lymphs 24.0 (15-43) % [facility] Monocytes Absolute 5.8 (4.5-10.5 ) % [facility] Eosinophils 1.7 (0-6) % [facility] Basophils Relative 0.8 (0-2) % [facility] Immature Granulocytes 0.4 % [facility] Comment: Testing performed or reported by [facility], [facility], a Service of [facility], [address] [place] [address] Luis A Bailey MD, Golf Cart Assembler [facility]# [id number] Blood (Blood, Venous) 06/08/2023 8:36 AM EST 06/08/2023 8:38 AM EST Arlene CARTER LAB BLOOD ORDERABLES Final Re sult [facility] documented in this encounter Visit Diagnoses Diagnosis Chronic kidney disease, stage 2 (mild) Essential (primary) hypertension Anemia in chronic kidney disease Antiphospholipid syndrome (HCC) Type 2 diabetes mellitus, not otherwise specified (HCC) Bleeding hemorrhoids documented in this encounter Care Teams Supervisor Slate Splitting Relationship Specialty Start Date End Date Sahra Son MD [address] [address] PCP - General Internal Medicine 10/28/22 documented as of this encounter
--- OUTSIDE RECORDS SUMMARY | 2024-09-25 09:50 | XMS_ITS | Encounter Summary ---
Author Organization [facility] Address [address] [place] [address] Phone Care Team Providers Care Veterinary Attendant Name Role Phone Sahra Son MD Primary Care Provider + Encounter Details Date Type Department Care Team ([facility] Contact Info) Description 12/23/2021 Documentation Only [facility] [address] [place] [address] Juan Jose Li MD [address] [place] [address] [place] [address] Social History Tobacco Use Types [...] [facility] [address] [place] [address] Barry Reyes MD [address] [place] [address] [place] [address] documented as of this encounter Visit Diagnoses Not on filedocumented in this encounter Care Teams Veterinary Attendant Relationship Specialty Start Date End Date Sahra Son MD [address] [address] PCP - General Internal Medicine 10/28/22 documented as of this encounter
--- OUTSIDE RECORDS SUMMARY | 2024-09-25 09:51 | XMS_ITS | Encounter Summary ---
Author Organization [facility] Address [address] [place] [address] Phone Care Team Providers Care Director Of Outreach Name Role Phone Sahra Son MD Primary Care Provider + Encounter Details Date Type Department Care Team ([facility] Contact Info) Description 01/29/2023 Documentation Only [facility] [address] [place] [address] India Davalos [address] [place] [address] Social History Tobacco Use Types [...] Upcoming Encounters Date Type Department Care Team ([facility] Contact Info) Description 11/23/2024 12:50 PM EDT Office Visit [facility] [address] [place] [address] Barry Reyes MD [address] [place] [address] [place] [address] documented as of this encounter Visit Diagnoses Not on filedocumented in this encounter Care Teams Director Of Outreach Relationship Specialty Start Date End Date Sahra Son MD [address] [address] PCP - General Internal Medicine 10/28/22 documented as of this encounter
--- OUTSIDE RECORDS SUMMARY | 2024-09-25 09:51 | XMS_ITS | Encounter Summary ---
Author Organization [facility] Address [address] [place] [address] Phone Care Team Providers Care Front Office Administrator Name Role Phone Sahra Son MD Primary Care Provider + Encounter Details Date Type Department Care Team ([facility] Contact Info) Description 08/05/2023 Documentation Only [facility] [address] [place] [address] India Davalos [address] [place] [address] Social History Tobacco Use Types [...] [facility] [address] [place] [address] Barry Reyes MD [address] [place] [address] [place] [address] documented as of this encounter Visit Diagnoses Not on filedocumented in this encounter Care Teams Front Office Administrator Relationship Specialty Start Date End Date Sahra Son MD [address] [address] PCP - General Internal Medicine 10/28/22 documented as of this encounter
--- OUTSIDE RECORDS SUMMARY | 2024-09-25 09:51 | XMS_ITS | Encounter Summary ---
Author Organization [facility] Address [address] [place] [address] Phone Care Team Providers Care Supervisor Screen Making Name Role Phone Sahra Son MD Primary Care Provider + Encounter Details Date Type Department Care Team ([facility] Contact Info) Description 07/03/2021 Documentation Only [facility] [address] [place] [address] Juan Jose Li MD [address] [place] [address] [place] [address] Social History Tobacco Use Types [...] [facility] [address] [place] [address] Barry Reyes MD [address] [place] [address] [place] [address] documented as of this encounter Visit Diagnoses Not on filedocumented in this encounter Care Teams Supervisor Screen Making Relationship Specialty Start Date End Date Sahra Son MD [address] [address] PCP - General Internal Medicine 10/28/22 documented as of this encounter
--- OUTSIDE RECORDS SUMMARY | 2024-09-25 09:51 | XMS_ITS | Encounter Summary ---
Author Organization [facility] Address [address] [place] [address] Phone Care Team Providers Care Conservation Agent Name Role Phone Sahra Son MD Primary Care Provider + Encounter Details Date Type Department Care Team ([facility] Contact Info) Description 08/27/2021 Documentation Only [facility] [address] [place] [address] India Davalos [address] [place] [address] Social History Tobacco Use Types [...] [facility] [address] [place] [address] Barry Reyes MD [address] [place] [address] [place] [address] documented as of this encounter Visit Diagnoses Not on filedocumented in this encounter Care Teams Conservation Agent Relationship Specialty Start Date End Date Sahra Son MD [address] [address] PCP - General Internal Medicine 10/28/22 documented as of this encounter
--- OUTSIDE RECORDS SUMMARY | 2024-09-25 09:51 | XMS_ITS | Encounter Summary ---
Author Organization [facility] Address [address] [place] [address] Phone Care Team Providers Care Asphalt Machine Operator Name Role Phone Sahra Son MD Primary Care Provider + Encounter Details Date Type Department Care Team ([facility] Contact Info) Description 08/09/2023 Documentation Only [facility] [address] [place] [address] India Davalos [address] [place] [address] Social History Tobacco Use Types [...] [facility] [address] [place] [address] Barry Reyes MD [address] [place] [address] [place] [address] documented as of this encounter Visit Diagnoses Not on filedocumented in this encounter Care Teams Asphalt Machine Operator Relationship Specialty Start Date End Date Sahra Son MD [address] [address] PCP - General Internal Medicine 10/28/22 documented as of this encounter
--- OUTSIDE RECORDS SUMMARY | 2024-09-25 09:51 | XMS_ITS | Clinical Summary ---
Author Organization [facility] Address [address] [place] [address] Care Team Providers Care Food Service Ambassador Name Role Phone Sahra Son MD Primary Care Provider + Surgical History Surgery Date Site/Laterality Comments OTHER SURGICAL HISTORY 1975 PROCEDURE: [place] ECTOPIC ABDOMINAL/VAGINAL APPR PARTIAL HYSTERECTOMY PROCEDURE: [place] SUPRACERVICAL ABDL HYSTER W/WO RMVL TUBE OVARY CHOLECYSTECTOMY 1982 PROCEDURE: HISTORICAL CHOLECYSTECTOMY CARPAL TUNNEL RELEASE 11/21/2014 Left PROCEDURE: HISTORICAL CARPAL TUNNEL REL BOWEL RESECTION 03/2004 PROCEDURE: HISTORICAL BOWEL RESECTION; COMMENT: bowel obstruction Medical History Medical History Date Comments Diverticulosis DX:Diverticulosi s CHF (congestive heart failur e) ([facility] V24, [facility] V28) DX:CHF (congestive heart fa ilure) ([facility]) COPD (chronic obstructive pu lmonary disease) ([facility] V24, [facility] V28) DX:COPD (chronic o bstructive pulmonary disease) ([facility]) Osteoporosis DX:Osteoporosis Fibromyalgia DX:Fibromyalgia Myelofibrosis ([facility] V24, [facility] V28) DX:Myelofibrosis ([facility]); COMM ENT: diagnosed 8 years ago, follows with DR layne Meningioma ([facility] V24, [facility] V28) DX:Meningioma ([facility]) Asthma DX:Asthma Gout DX:Gout Seizures ([facility] V24, [facility] V28) DX:Seizures ([facility]) Lupus DX:Lupus Depression DX:Depression; C OMMENT: follows at [facility] net at [place] [address] [facility]ann Hypercoagulable state ([facility] V24) DX:Hypercoagulable state ([facility]); COMMENT: on coumadin Neurogenic bladder DX:Neurogenic bladder; COMMENT: flowers dependent Supplemental oxygen dependent DX :Supplemental oxygen dependent Lung nodule 03/22/2017 DX:Lung nodule ALESSANDRA (obstructive sleep apnea) 03/22/2017 DX :ALESSANDRA (obstructive sleep apnea) GERD (gastroesophageal reflux disease) 03/22/2017 DX:GERD (gastroesophageal reflux disease) Anxiety 03/22/2017 DX:Anxiety Dementia ([facility] V24, [facility] V28) 03/22/2017 DX:Dementia ([facility]) Schizophrenia ([facility] V24, [facility] V28) 03/22/2017 DX:Schizophrenia ([facility]) Glaucoma 03/22/2017 DX:Glaucoma History of stroke DX:History of stroke History of deep vein thrombosis DX:History of deep vein thrombosis Coronary artery disease DX:Coron christine artery disease; COMMENT: Old [place] Diabetes mellitus type 2 wit h neurological manifestations ([facility] V24, [facility] V28) DX:Diabetes mellitus type 2 with neurological manifestations ([facility]) Leukemia ([facility] V24, [facility] V28) 09/02/2017 DX:Leukemia ([facility]) MDS (myelodysplastic syndrom e) ([facility] V24, [facility] V28) 09/02/2017 DX:MDS (myelodysplastic syn drome) ([facility]) Hyperthyroidism 09/02/2017 DX:Hyperthyroidi sm History of [...] age to complete this topic Care Teams Food Service Ambassador Relationship Specialty Start Date End Date Sahra Son MD [employer] [address] [place] [address] PCP - General 08/31/22
--- OUTSIDE RECORDS SUMMARY | 2024-09-25 09:51 | XMS_ITS | Encounter Summary ---
Author Organization [facility] Address [address] [place] [address] Phone Care Team Providers Care Product Demonstrator Name Role Phone Sahra Son MD Primary Care Provider + Encounter Details Date Type Department Care Team ([facility] Contact Info) Description 02/01/2023 Documentation Only [facility] [address] [place] [address] India Davalos [address] [place] [address] Social History Tobacco Use Types [...] [facility] [address] [place] [address] Barry Reyes MD [address] [place] [address] [place] [address] documented as of this encounter Visit Diagnoses Not on filedocumented in this encounter Care Teams Product Demonstrator Relationship Specialty Start Date End Date Sahra Son MD [address] [address] PCP - General Internal Medicine 10/28/22 documented as of this encounter
--- OUTSIDE RECORDS SUMMARY | 2024-09-25 09:51 | XMS_ITS | Encounter Summary ---
Author Organization [facility] Address [address] [place] [address] Phone Care Team Providers Care Rn Registry Name Role Phone Sahra Son MD Primary Care Provider + Encounter Details Date Type Department Care Team ([facility] Contact Info) Description 10/30/2022 Documentation Only [facility] [address] [place] [address] India Davalos [address] [place] [address] Social History Tobacco Use Types [...] Upcoming Encounters Date Type Department Care Team ([facility] Contact Info) Description 11/23/2024 12:50 PM EDT Office Visit [facility] [address] [place] [address] Barry Reyes MD [address] [place] [address] [place] [address] documented as of this encounter Visit Diagnoses Not on filedocumented in this encounter Care Teams Rn Registry Relationship Specialty Start Date End Date Sahra Son MD [address] [address] PCP - General Internal Medicine 10/28/22 documented as of this encounter
--- OUTSIDE RECORDS SUMMARY | 2024-09-25 09:51 | XMS_ITS | Encounter Summary ---
Author Organization [facility] Address [address] [place] [address] Phone Care Team Providers Care Armament Installer Name Role Phone Sahra Sno MD Primary Care Provider + Encounter Details Date Type Department Care Team (Late Contact Info) Description 08/04/2024 Orders Only [facility] [address] [place] [address] India Davalos [address] [place] [address] Anemia in chronic kidney disease; [...] Visit [facility] [address] [place] [address] Barry Reyes MD [address] [place] [address] [place] [address] documented as of this [...] Glucose 168(H) 70 - 99 mg/dL [facility] BUN 15 8 - 27 mg/dL [facility] Creatinine 0.93 0.57 - 1.00 mg/dL [facility] eGFR CKD-EPI CR 2020 69 >59 mL/min/1.7 3 [facility] BUN/Creatinine Ratio 16 12 - 28 [facility] Sodium 139 134 - 144 mmol/L [facility] Chloride 103 96 - 106 mmol/L [facility] Bicarbonate (CO2) 24 20 - 29 mmol/L [facility] Calcium 8.8 8.7 - 10.3 mg/dL [facility] Phosphorus 3.8 3.0 - 4.3 mg/dL [facility] Albumin 4.1 3.9 - 4.9 g/dL [facility] Potassium 4.8 3.5 - 5.2 mmol/L [facility] Blood (Blood, Venous) 08/07/2024 8:15 AM EDT 08/07/2024 Barry Reyes MD LAB BLOOD ORDERABLES Final Re sult Performing Organization Address [facility]/ZIP Co de Phone Number [facility] [address] [place] [address] * Ferritin (08/07/2024 8:15 AM EDT) Ferritin 55 15 - 150 ng/mL [facility] Blood (Blood, Venous) 08/07/2024 8:15 AM EDT 08/07/2024 Barry Reyes MD LAB BLOOD ORDERABLES Final Re sult Performing Organization Address [facility] de Phone Number [facility] [address] [place] [address] * (ABNORMAL) Iron Panel (Fe, TIBC, TSAT) (08/07/2024 8:15 AM EDT) TIBC 290 250 - 450 ug/dL [facility] UIBC 251 118 - 369 ug/dL [facility] Iron 39 27 - 139 ug/dL [facility] Iron Saturation (TSat) 13(L) 15 - 55 % [facility] Blood (Blood, Venous) 08/07/2024 8:15 AM EDT 08/07/2024 Barry Reyes MD LAB BLOOD ORDERABLES Final Re sult Performing Organization Address [facility] Co de Phone Number [facility] [address] [place] [address] * (ABNORMAL) CBC and Differential (08/07/2024 8:15 AM EDT) [facility] WBC 5.6 3.4 - 10.8 x10E3/uL [facility] RBC 5.41(H) 3.77 - 5.28 x10E6/uL [facility] Hemoglobin 10.7(L) 11.1 - 15.9 g/dL [facility] Hematocrit 36.1 34.0 - 46.6 % [facility] MCV 67(L) 79 - 97 fL [facility] MCH 19.8(L) 26.6 - 33.0 pg [facility] MCHC 29.6(L) 31.5 - 35.7 g/dL [facility] RDW 18.9(H) 11.7 - 15.4 % [facility] Platelets 171 150 - 450 x10E3/uL [facility] Neutrophils Relative 65 Not Estab. % [facility] Lymphocytes Relative 25 Not Estab. % [facility] Monocytes 6 Not Estab. % [facility] Eosinophils Relative 3 Not Estab. % [facility] Basophils Relative 1 Not Estab. % [facility] Neutrophils Absolute 3.6 1.4 - 7.0 x10E3/uL [facility] Lymphocytes Absolute 1.4 0.7 - 3.1 x10E3/uL [facility] Monocytes Absolute 0.4 0.1 - 0.9 x10E3/uL [facility] Eosinophils Absolute 0.2 0.0 - 0.4 x10E3/uL [facility] Basophils Absolute 0.0 0.0 - 0.2 x10E3/uL [facility] Immature Granulocytes 0 Not Estab. % [facility] Immature Grans (Absolute) 0.0 0.0 - 0.1 x10E3/uL [facility] Blood (Blood, Venous) 08/07/2024 8:15 AM EDT 08/07/2024 us Barry Reyes MD LAB BLOOD ORDERABLES Final Re sult [facility] [address] [place] [address] documented in this encounter Visit Diagnoses Diagnosis Anemia in chronic kidney disease Other iron deficiency anemia Chronic kidney disease, stage 2 (mild) documented in this encounter Care Teams Armament Installer Relationship Specialty Start Date End Date Sahra Son MD [address] [place] [id number] PCP - General Internal Medicine 10/28/22 documented as of this encounter
--- OUTSIDE RECORDS SUMMARY | 2024-09-25 09:51 | XMS_ITS | Encounter Summary ---
Author Organization [facility] Address [address] [place] [address] Phone Care Team Providers Care Director Compensation Name Role Phone Sahra Son MD Primary Care Provider + Encounter Details Date Type Department [facility] Description 01/29/2023 Documentation Only [facility] [address] [place] [address] India Davalos [address] [place] [address] Social History Tobacco Use Types [...] Upcoming Encounters Date Type Department Care Team ([facility] Contact Info) Description 11/23/2024 12:50 PM EDT Office Visit [facility] [address] [place] [address] Barry Reyes MD [address] [place] [address] [place] [address] documented as of this encounter Visit Diagnoses Not on filedocumented in this encounter Care Teams Director Compensation Relationship Specialty Start Date End Date Sahra Son MD [address] [address] PCP - General Internal Medicine 10/28/22 documented as of this encounter
--- OUTSIDE RECORDS SUMMARY | 2024-09-25 09:51 | XMS_ITS | Clinical Summary ---
Author Organization [facility] [place], Address [address] [place] [address] [place] [address] Phone Care Team Providers Care Chainstitch Felled Seam Operator Name Role Phone Sahra Son MD [...] IN THE [facility] 11/19/19 20 Active Creon 57180-50910 units capsule TK ONE C PO TID [...] requested. 15 mL 1 08/25/19 25 Active Hospital, Clinic, or Other Facility Administered [...] [facility] [address] [place] [address] [place], [place] Chronic kidney disease, stage 2 (mild); Anemia in chronic kidney disease; Iron deficiency anemia, not otherwise specified 09/01/2024 Orders Only [facility] [address] [place] [address] [place] Anemia in chronic kidney disease; Other iron deficiency anemia; Chronic kidney disease, stage 2 (mild) 08/28/2024 Documentation Only [facility] [address] [place] [address] [place], [place] 08/25/2024 Documentation Only [facility] [address] [place] [address] [place], [place] 08/24/2024 Documentation Only [facility] [address] [place] [address] [place], [place] 08/24/2024 Refill [facility] [address] [place] [address] [place], [place] 08/23/2024 Refill [facility] [address] [place] [address] [place], [place] 08/23/2024 Refill [facility] [address] [place] [address] [place], [place] 08/18/2024 Office Communication [facility] [place] [facility] [address] [place] [address] Stephanie Azul, LAURITA 08/18/2024 Orders Only [facility] [address] [place] [address] [place], [place] Chronic kidney disease, stage 2 (mild); Anemia in chronic kidney disease; Iron deficiency anemia, not otherwise specified 08/04/2024 Orders Only [facility] [address] [place] [id number] [place], [place] Anemia in chronic kidney disease; Other iron deficiency anemia; Chronic kidney disease, stage 2 (mild) 07/21/2024 Orders Only [facility] [address] [place] [address] [place], [place] Chronic kidney disease, stage 2 (mild); Anemia in chronic kidney disease; Iron deficiency anemia, not otherwise specified 07/07/2024 Orders Only [facility] [address] [place] [address] [place], [place] Anemia in chronic kidney disease; [...] Visit [facility] [place], [address] [place] [address] Barry Reyes MD [address] [place] [id number] Health Maintenance Due Date Last Done Comments [...] TIBC 323 250 - 450 ug/dL [facility] UIBC 286 118 - 369 ug/dL [facility] Iron 37 27 - 139 ug/dL [facility] Iron Saturation (TSat) 11(L) 15 - 55 % [facility] Blood (Blood, Venous) 09/06/2024 8:15 AM EDT 09/06/2024 Barry Reyes MD LAB BLOOD ORDERABLES Final Re sult [facility] [address] [place] [address] * (ABNORMAL) CBC and Differential (09/06/2024 8:15 AM EDT) Only the most recent of2 resultswithin the time period is included. WBC 6.3 3.4 - 10.8 x10E3/uL [facility] RBC 5.35(H) 3.77 - 5.28 x10E6/uL [facility] Hemoglobin 10.6(L) 11.1 - 15.9 g/dL [facility] Hematocrit 35.8 34.0 - 46.6 % [facility] MCV 67(L) 79 - 97 fL [facility] MCH 19.8(L) 26.6 - 33.0 pg [facility] MCHC 29.6(L) 31.5 - 35.7 g/dL [facility] RDW 18.4(H) 11.7 - 15.4 % [facility] Platelets 190 150 - 450 x10E3/uL [facility] Neutrophils Relative 67 Not Estab. % [facility] Lymphocytes Relative 22 Not Estab. % [facility] Monocytes 6 Not Estab. % [facility] Eosinophils Relative 3 Not Estab. % [facility] Basophils Relative 1 Not Estab. % [facility] Neutrophils Absolute 4.3 1.4 - 7.0 x10E3/uL [facility] Lymphocytes Absolute 1.4 0.7 - 3.1 x10E3/uL [facility] Monocytes Absolute 0.4 0.1 - 0.9 x10E3/uL [facility] Eosinophils Absolute 0.2 0.0 - 0.4 x10E3/uL [facility] Basophils Absolute 0.1 0.0 - 0.2 x10E3/uL [facility] Immature Granulocytes 1 Not Estab. % [facility] Immature Grans (Absolute) 0.1 0.0 - 0.1 x10E3/uL [facility] Blood (Blood, Venous) 09/06/2024 8:15 AM EDT 09/06/2024 us Barry Reyes MD LAB BLOOD ORDERABLES Final Re sult [facility] [address] [place] [address] * Ferritin (09/06/2024 8:15 AM EDT) Only the most recent of2 resultswithin the time period is included. Ferritin 37 15 - 150 ng/mL [facility] Blood (Blood, Venous) 09/06/2024 8:15 AM EDT 09/06/2024 Barry Reyes MD LAB BLOOD ORDERABLES Final Re sult [facility] [address] [place] [address] * (ABNORMAL) Renal Function Panel (09/06/2024 8:15 AM EDT) Only the most recent of2 resultswithin the time period is included. Glucose 233(H) 70 - 99 mg/dL [facility] BUN 15 8 - 27 mg/dL [facility] Creatinine 1.01(H) 0.57 - 1.00 mg/dL [facility] eGFR CKD-EPI CR 2020 62 >59 mL/min/1.7 3 [facility] BUN/Creatinine Ratio 15 12 - 28 [facility] Sodium 138 134 - 144 mmol/L [facility] Potassium 4.9 3.5 - 5.2 mmol/L [facility] Chloride 101 96 - 106 mmol/L [facility] Bicarbonate (CO2) 19(L) 20 - 29 mmol/L [facility] Calcium 9.1 8.7 - 10.3 mg/dL [facility] Albumin 4.2 3.9 - 4.9 g/dL [facility] Phosphorus 3.8 3.0 - 4.3 mg/dL [facility] Blood (Blood, Venous) 09/06/2024 8:15 AM EDT 09/06/2024 Barry Reyes MD LAB BLOOD ORDERABLES Final Re sult Performing Organization Address [facility]/ZIP Co de Phone Number [facility] [address] [place] [phone] * (ABNORMAL) Hemoglobin A1c (06/08/2023 8:36 AM EST) Hemoglobin A1C 7.2(H) (4.0-5.6) % [facility] Comment: MONITORING: In known diabetic patients, hemoglobin A1c targets should be discussed with health care provider. DIAGNOSTIC USE: ??The [place] Diabetes Association (ADA) and the World Health [...] Supplement 1 Testing performed or reported by [facility], a Service of [facility], [address] [place] [address] Luis A Bailey MD, Tubing Assembler [facility]# [id number] Blood (Blood, Venous) 06/08/2023 8:36 AM EST 06/08/2023 8:38 AM EST Arlene CARTER LAB BLOOD ORDERABLES Final Re sult Performing Organization Address City/[facility]/ZIP Co de Phone Number [facility] from Last 3 Months or Most Recently Relevant to Health Maintenance Insurance [employer] Dual SNP ([id number]) [place] [id number] Care Teams Chainstitch Felled Seam Operator Relationship Specialty [place] [address] [place] [address] PCP - General Internal Medicine 10/28/22
--- OUTSIDE RECORDS SUMMARY | 2024-09-25 09:51 | XMS_ITS | Encounter Summary ---
Author Organization [facility] Address [address] [place] [address] Phone Care Team Providers Care Vacuum Metalizer Operator Name Role Phone Sahra Son MD Primary Care Provider + Encounter Details Date Type Department Care Team ([facility] Contact Info) Description 04/05/2024 Documentation Only [facility] [address] [place] [address] India Davalos [address] [place] [address] Social History Tobacco Use Types [...] Upcoming Encounters Date Type Department Care Team ([facility] Contact Info) Description 11/23/2024 12:50 PM EDT Office Visit [facility] [address] [place] [address] Barry Reyes MD [address] [place] [address] [place] [address] documented as of this encounter Visit Diagnoses Not on filedocumented in this encounter Care Teams Vacuum Metalizer Operator Relationship Specialty Start Date End Date Sahra Son MD [address] [address] PCP - General Internal Medicine 10/28/22 documented as of this encounter
--- OUTSIDE RECORDS SUMMARY | 2024-09-25 09:51 | XMS_ITS | Encounter Summary ---
Author Organization [facility] Address [address] [place] [address] Phone Care Team Providers Care Motor Block Mechanic Name Role Phone Sahra Son MD Primary Care Provider + Encounter Details Date Type Department Care Team ([facility] Contact Info) Description 10/26/2022 Documentation Only [facility] [address] [place] [address] India Davalos [address] [place], [place] [...] Upcoming Encounters Date Type Department Care Team ([facility] Contact Info) Description 11/23/2024 12:50 PM EDT Office Visit [facility] [address] [place] [address] Barry Reyes MD [address] [place] [address] [place] [address] documented as of this encounter Visit Diagnoses Not on filedocumented in this encounter Care Teams Motor Block Mechanic Relationship Specialty Start Date End Date Sahra Son MD [address] [address] PCP - General Internal Medicine 10/28/22 documented as of this encounter
--- OUTSIDE RECORDS SUMMARY | 2024-09-25 09:51 | XMS_ITS | Encounter Summary ---
Author Organization [facility] Address [address] [place] [address] Phone Care Team Providers Care Deputy Coroner Investigator Name Role Phone Sahra Son MD Primary Care Provider + Encounter Details Date Type Department Care Team (Late Contact Info) Description 09/15/2024 Orders Only [facility] [address] [place] [address] India Davalos [address] [place] [address] Chronic kidney disease, stage 2 [...] Visit [facility] [address] [place] [address] Barry Reyes MD [address] [place] [address] documented as of this encounter Visit Diagnoses Diagnosis Chronic kidney disease, stage 2 (mild) Anemia in chronic kidney disease Iron deficiency anemia, not otherwise specified documented in this encounter Care Teams Deputy Coroner Investigator Relationship Specialty Start Date End Date Sahra Son MD [facility] [place] [address] PCP - General Internal Medicine 10/28/22 documented as of this encounter
--- OUTSIDE RECORDS SUMMARY | 2024-09-25 09:51 | XMS_ITS | Encounter Summary ---
Author Organization [facility] Address [address] [place] [address] Phone Care Team Providers Care Animal Care Supervisor Name Role Phone Sahra Son MD Primary Care Provider + Encounter Details Date Type Department Care Team (Late Contact Info) Description 03/31/2024 Orders Only [facility] [address] [place] [address] India Davalos [address] [place] [address] Chronic kidney disease, stage 2 [...] Visit [facility] [address] [place] [address] Barry Reyes MD [address] [place] [address] documented as of this encounter Visit Diagnoses Diagnosis Chronic kidney disease, stage 2 (mild) Anemia in chronic kidney disease Iron deficiency anemia, not otherwise specified documented in this encounter Care Teams Animal Care Supervisor Relationship Specialty Start Date End Date Sahra Son MD [facility] [place] [address] PCP - General Internal Medicine 10/28/22 documented as of this encounter
--- OUTSIDE RECORDS SUMMARY | 2024-09-25 09:51 | XMS_ITS | Data Portability ---
Author Organization [facility] [place] [employer] [place] [facility] [employer], Part of [employer] Address [address] [place] [id number] Care Team Providers Care Information Security Architect Name Role Phone HIM CCA OTHER Assessment Encounter Date Assessment Date Assessment LastModified by Organization Details LastModified Time 07/07/2023 07/07/2023 I provided real -time medical direction via phone for this encounter, and was available for additional phone based assistance as needed. I have reviewed and agree with the Assessment and Plan as documented by the Lsat Instructor. We discussed the diagnostic uncertainty of home [...] to call 911- verbalized understanding of instructions [email or web address] Not available 07/07/2023 23:48:08 08/03/2023 08/03/2023 Ms. 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 VSS. Lsat Instructor on site reports no acute distress, wheezing [...] Assessment and Plan as documented by the Lsat Instructor. We discussed the diagnostic uncertainty of home visits and the risk associated with this The patient given the opportunity to ask questions. Call placed to [facility] ER expect line Not available 09/16/2023 11:20:43 08/17/2024 08/17/2024 I have reviewed and agree with the assessment and plan as documented by the criminal justice social worker. I provided real time medical direction for this encounter and was immediately available to provide additional phone based assistance as needed. History as noted by criminal justice social worker. Pt with history of type 2 diabetes [...] 2023 024 [email or web address] 0 [facility], [address] [place] [address], [phone] 4 11:21:41 BMP, serum or plasma 2023 024 [email or web address] 0 [facility], [address] [place] [address], [phone] 4 23:49:01 Referral None recorded. Procedures None recorded. Surgeries None recorded. Imaging None recorded. Medication Orders ketorolac 60 mg/2 mL intramuscul ar solution 2024 025 [facility] #78436, [address], [place], [id number], 5 16:08:53 lidocaine 4 % topical patch 2024 025 JEANNE [facility] #05265, [address], [place], [id number], 5 16:08:59 prednisone 10 mg tablet 2023 024 [facility] #46988, [address], [place], [id number], 4 11:51:08 azithromyci n 250 mg tablet 2023 024 [facility] #92785, [address], [place], [id number], 4 11:51:18 azithromyci n 250 mg tablet [address] [facility] #79303, [address], [place], [id number], 4 11:50:53 prednisone 20 mg tablet [address] [facility] #20248, [address], [place], [id number], 4 11:50:53 Patient TargetsNo targets recorded. Patient InstructionsNo instructions recorded. Reason for Referral None Reported. Results Created Date Observation Date Name Description Value Unit Range Abnormal Flag Note LastModifiedBy Organization Detail LastModifiedTime 07/07/19 24 07/07/2023 BMP, serum or plasm a BUN 17 Not Available [facility] [address], [address] 07/07/2023 15:06:01 07/07/19 24 07/07/2023 BMP, serum or plasm a Ca 1.13 ionize d Not Available [facility] [address], [address] 07/07/2023 15:06:01 07/07/19 24 07/07/2023 BMP, serum or plasm a CI- 104 Not Available [facility] [address], [address] 07/07/2023 15:06:01 07/07/19 24 07/07/2023 BMP, serum or plasm a CRE 0.9 Not Available [facility] [address], [address] 07/07/2023 15:06:01 07/07/19 24 07/07/2023 BMP, serum or plasm a GLU 182 Not Available [facility] [address], [address] 07/07/2023 15:06:01 07/07/19 24 07/07/2023 BMP, serum or plasm a K+ 3.8 Not Available [facility] [address], [address] [place] [address] 07/07/2023 15:06:01 07/07/19 24 07/07/2023 BMP, serum or plasm a Na+ 140 Not Available [facility] [address], [address] [place] [address] 07/07/2023 15:06:01 07/07/19 24 07/07/2023 BMP, serum or plasm a tCO2 23 Not Available [facility] [address], [address] [place] [address] 07/07/2023 15:06:01 09/16/19 24 09/16/2023 gluco se, finge rstic k, blood Blood Glucose: mg/dl 215 Not Available [facility] - [address], [address] 09/16/2023 11:21:03 Result Notes None recorded. Medical [...] Not available Not available Not available 05/27/2022 [id number] UNK Nidia Morales MD [address] [place] [address],[address], [place], [address] [employer] [employer] 3 14:08:14 1749 Product containin g penicilli n (product) medicatio n Not available Not available Not available 05/27/2022 67387 8001 SNOMED Not Available [facility] 4 03:41:45 4589 morphine medicatio n Not available Not available Not available 07/07/2023 7052 RxNorm Natalie Whipple MD [address], [place], [address], [facility] 4 15:03:14 4590 Iodinated contrast media (substanc e) medicatio n Not available Not available Not available 07/07/2023 52334 2003 SNOMED Natalie Whipple MD [address], [place], [address], [facility] 4 15:03:26 Medications Name Sig Start Date [...] /min 150 mm[Hg] 90 mm[Hg] Not Available [facility] 4 15:01:59 Date Recorded Body temperature Respiratory rate Oxygen saturation Oxygen saturation in Arterial blood by Pulse oximetry Heart rate Systolic blood pressure Diastolic blood pressure Provider Name and Address Organization Details Last Updated DateTime 4 97.9 [degF] 16 /min 97 % 97 % 73 /min 144 mm[Hg] 80 mm[Hg] Not Available [facility] 4 11:45:28 Date Recorded Body temperature Heart rate Respiratory rate Oxygen saturation Oxygen saturation in Arterial blood by Pulse oximetry Systolic blood pressure Diastolic blood pressure Provider Name and Address Organization Details Last Updated DateTime 4 97.7 [degF] 65 /min 18 /min 97 % 97 % 138 mm[Hg] 64 mm[Hg] Not Available [facility] 4 12:03:25 Date Recorded Body temperature Oxygen saturation Oxygen saturation in Arterial blood by Pulse oximetry Heart rate Respiratory rate Systolic blood pressure Diastolic blood pressure Provider Name and Address Organization Details Last Updated DateTime 4 98 [degF] 97 % 97 % 87 /min 16 /min 133 mm[Hg] 78 mm[Hg] Not Available [facility] 4 14:12:35 Date Recorded Oxygen saturation Oxygen saturation in Arterial blood by Pulse oximetry Heart rate Body temperature Respiratory rate Systolic blood pressure Diastolic blood pressure Provider Name and Address Organization Details Last Updated DateTime 5 97 % 97 % 89 /min 97.6 [degF] 16 /min 140 mm[Hg] 64 mm[Hg] Not Available [facility] 5 16:01:31 Social History None recorded. Functional Status None recorded. Mental Status None recorded. Family History Nothing Reported. Medical History No medical history recorded. Gynecological HistoryNo gynecological history recorded. Obstetrics History GPAL:G 0 P 0 0 0 0 Past Encounters Encounter ID Performer Location Encounter Start Date Encounter Closed Date Diagnosis/Indication Diagnosis SNOMED-CT Code Diagnosis ICD10 Code Diagnosis Note [id number] Dante Brown MD [address] [id number] 02/04/2022 17:39:01 02/04/2022 17:44:57 [id number] Ana Luisa Fair MD [facility] - [address] [address] 02/13/2022 11:18:20 02/13/2022 11:46:05 [id number] Dante Brown MD [address] [id number] 04/20/2022 16:19:49 04/22/2022 11:04:34 Viral upper respiratory tract infection [id number] J06.9 This 61-year-ol d female called [facility] with symptoms of a URI. Her COVID-19 and flu screens were negative and she did not appear to be acutely ill. I recommende d symptomati c treatment and she will follow-up with her PCP if her symptoms persist. The patient agreed with this plan. [id number] Jah Vasquez MD [address] [id number] 05/19/2022 15:42:35 05/21/2022 10:52:46 COVID-19 [id number] U07.1 [id number] Nidia Morales MD [address] [id number] 05/27/2022 14:04:20 05/29/2022 10:25:07 Pneumonia 181733799 J18.9 61yo PMHx ?seizure activity, HTN, CKD, [...] assessment and plan as documented by the criminal justice social worker. I provided real time medical direction for this encounter and was immediatel y available to provide additional phone based assistance as needed. [id number] David Guerrero MD [facility] [address] [place] [phone] 05/14/2023 15:50:47 05/18/2023 12:06:52 Cough [id number] R05.9 Natalie Whipple MD [facility] [address] [place] [id number] 07/07/2023 15:01:51 07/08/2023 09:28:47 Acute low back pain 782016604 M54.50 On top of chronic advised needs [...] her best interest History of rectal bleeding [id number] 1958696 Z87.19 We do not have the ability to do stool guaiac and although her H&H is currently stable I am concerned with her taking ibuprofen while on Coumadin-a dvised needs workup for GI bleeding. [id number] Ana Luisa Fair MD [facility] [address] [place] [id number] 08/03/2023 11:25:58 08/03/2023 20:10:35 Acute exacerbation of chronic obstructive pulmonary disease [id number] J44.1 [id number] Natalie Whipple MD [facility] [address] [place] [id number] 09/16/2023 11:10:45 09/19/2023 12:06:57 Dizziness [id number] R42 Prolonged postictal symptoms / cannot r/o new CVA vs bleed given unsteadine ss, increased right hemiparesi s and patient is a large fall risk- advised patient need for emergent CT brain-hypo glycemia is not the issue here. Explained to patient the need for emergent evaluation and she agreed. Report called to [facility] ER [id number] Josefina Irizarry MD [facility] [address] [place] [id number] 11/30/2023 14:12:32 11/30/2023 18:23:22 Abdominal pain 11556314 R10.9 63 year old female with iron [...] assessment and plan as documented by the criminal justice social worker. I provided real-time medical direction for this encounter and was immediatel y available to provide additional phone-base d assistance as needed. We discussed the diagnostic uncertaint y of home visits and associated risks. We discussed the need to seek care urgently/e mergently in the setting of any new or worsening symptoms. [id number] David Guerrero MD [facility] [address] [place] [id number] 08/17/2024 16:01:29 08/17/2024 19:17:31 Contusion of right rib [id number] 7101 S20.211A Health Concerns Section Related Observation LastModified by Organization Detai ls LastModified Time None Recorded Concern Status LastModified by Organization Details LastModified Time None Recorded Advance Directives Directive None Recorded Payers Insurance Date Sequence Insurance Name Policy Number Policy Gorman Covered Member ID Gorman Member ID Guarantor Name 09/16/2023 1 [facility] - DOS PRIOR TO 2022 - DUAL ELIGIBLE (MEDICARE REPLACEMENT/AD VANTAGE - HMO) Jennifer Schulz [id number] Jennifer Schulz 08/17/2024 1 [facility] - DOS ON OR AFTER 2022 - DUAL ELIGIBLE - HALFWAY OPTIONS AND ONE CARE (MEDICARE REPLACEMENT/AD VANTAGE - HMO) Jeninfer Schulz [id number] Jennifer Schulz Notes Date Note Type Note [...] issues she was having. I spoke with KEYBOARD INSTRUMENT TUNER about Jennifer's issues, ER was advised but [...] ...................... ...................... ...................... ...................... ...................... ...................... ......... Lsat Instructor Note From Vinnie Ashby: Dispatched to the [...] but none currently. Natalie Whipple MD [address] [facility],[address], [place], [address], [facility] 07/07/2023 23:57:06 08/03/2023 text/html HPI: Patient reports a bad dry cough x 1 week with SOB and wheezing. Did 2-3 neb treatments yesterday with no relief. Today she woke up with bloody/green mucus in her throat and from her nose. Ears and nose feel clogged, has sore throat. Taking loratadine without benefit. 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 COVID negative. Feels like symptoms overall getting worse. ...................... ...................... ...................... ...................... ...................... ...................... ......... [facility] Nurse Triage Notes (Maile Hardy): Comments: HPI reviewed. ...................... ...................... ...................... ...................... ...................... ...................... ......... Lsat Instructor Note From Vinnie Ashby: Dispatched to the [...] pupils PERRL, +CMSx4, +wheezing in bases bilaterally. C consulted. Pt given 500mg Azithromycin and 40mg PO Prednisone, script called into preferred pharmacy. Red flags discussed. ALL times are approx. ...................... ...................... ...................... ...................... ...................... ...................... ......... Disposition: Marry Fair MD [address] [place] [address],[address], [place], [address], [facility] [employer] 08/03/2023 13:27:24 09/16/2023 text/html HPI: 62 yo [...] today. She refuses the ER. I emailed [facility], they do not draw INRs. I told her she needs to reach out to her INR team and I will send [facility] for a neruo assessment and IVF. ...................... ...................... ...................... ...................... ...................... ...................... ......... [facility] Nurse Triage Notes (Maile Hardy): Comments: HPI reviewed. Lsat Instructor POC Test Results from [facility] Blood Glucose Measurement (1) [12:03] Blood Glucose: 258 mg/dL ...................... ...................... ...................... ...................... ...................... ...................... ......... Lsat Instructor Note From Enzo Ortiz: Dispatched to above [...] warm and dry. Patients BGL checked, 158mg/dl. [facility] contacted, spoke with Dr. Whipple, advised of patient complaints and exam findings. [facility] advised immediate transport to ER for further evaluation of possible CVA. Patient initially refused but after speaking with Dr. Whipple agreed. 911 called. [facility] responded. [facility] criminal justice social worker given verbal report. Lsat Instructor took over patient care, transport to [facility]. SC8 clear. EOR. ...................... ...................... ...................... ...................... ...................... ...................... ......... Disposition: Fulfilled Natalie Whipple MD [address] [facility],[address], [place], [address], [facility] [employer] [facility] 09/17/2023 13:03:36 11/30/2023 text/html HPI: Patient calls PCP today to state last she had an allergic reaction to her Iron infusion at [facility]. She tells me Alecia CARTER (her kidney provider-ordering provider for the iron) is aware that this happened. She now needs to get her iron infusions at [facility], not [facility], because the kidney care staff told her they are switching service providers to [facility]. She got a bag of iron at [facility] when she typically gets a 10 min push at [facility]. She was instructed to take her typical [...] SOB and abdominal swelling. Patient declined. Sending [email or web address] per Dr Son for follow up vitals/ assessment. Visit scheduled for this . ...................... ...................... ...................... ...................... ...................... ...................... ......... [facility] Nurse Triage Notes (Maile Hardy): Comments: HPI reviewed. No further information needed to process visit. ...................... ...................... ...................... ...................... ...................... ...................... ......... Lsat Instructor Note From Cas Robledo: Pt reports while [...] tender in the ULQ. No LE edema. [facility] contacted and pt advised to wait until to see the PCP. Pt instructed to seek emergent medical care for new or worsening sx, such as fever, not passing gas or stool or n/v. ...................... ...................... ...................... ...................... ...................... ...................... ......... Disposition: Fulfilled Josefina Irizarry MD [address] [facility],[address], [place], [address], [facility] [employer] [employer] 11/30/2023 15:28:40 08/17/2024 text/html This was a super vised home visit with criminal justice social worker Enzo Ortiz. HPI: 63-year-old woman with type [...] to her xrays until tomorrow morning, sending [facility] today for a toradol inj for pain management ...................... ...................... ...................... ...................... ...................... ...................... ......... [facility] Nurse Triage Notes (Larissa Davila): Reason For Request: Rib pain Chief Complaints: Abdominal Pain PMH: Hypertension, Congestive Heart Failure, COPD/Asthma, Diabetes Mellitus Type 2, Stroke PMH Reviewed at 08/17/2024 - : Allergies Reviewed at 08/17/2024 - : Comments: Reviewed HPI, will place referral for pain evaluation/treat as indicated. HPajavier SHAY ...................... ...................... ...................... ...................... ...................... ...................... ......... Lsat Instructor Note From Enzo Ortiz: Dispatched to above [...] radial pulse, skin pink warm and dry. [facility] contacted, spoke with Dr. Guerrero, advised of patient complaints and exam findings. [facility] orders 30mg Toradol given IM, will prescribe Lidocaine patches. Patient administered 30mg Toradol IM. Patient advised of red flags home care and need for follow up. Patient agrees with this plan, will follow up with PCP tomorrow after x-ray. Patient has no additional questions or concerns at this time. SC8 clear. EOR. [facility] Medication Orders: ketorolac 60 mg/2 mL intramuscular solution: Administered ...................... ...................... ...................... ...................... ...................... ...................... ......... [facility] Consulted: David Guerrero ...................... ...................... ...................... ...................... ...................... ...................... ......... Disposition: Fulfilled David Guerrero MD [address] [facility],[address], [place], [address], [facility] 08/17/2024 18:11:36 OBGyn Episode No OBEpisode recorded.
--- OUTSIDE RECORDS SUMMARY | 2024-09-25 09:51 | XMS_ITS | Encounter Summary ---
Author Organization [facility] Address [address] [place] [address] Phone Care Team Providers Care Ink Grinder Name Role Phone Sahra Son MD Primary Care Provider + Encounter Details Date Type Department Care Team ([facility] Contact Info) Description 06/09/2023 Documentation Only [facility] [address] [place] [address] India Davalos [address] [place] [address] Social History Tobacco Use Types [...] [facility] [address] [place] [address] Barry Reyes MD [address] [place] [address] [place] [address] documented as of this encounter Visit Diagnoses Not on filedocumented in this encounter Care Teams Ink Grinder Relationship Specialty Start Date End Date Sahra Son MD [address] [address] PCP - General Internal Medicine 10/28/22 documented as of this encounter
--- OUTSIDE RECORDS SUMMARY | 2024-09-25 09:51 | XMS_ITS | Encounter Summary ---
Author Organization [facility] Address [address] [place] [address] Phone Care Team Providers Care Dozer Operator Name Role Phone Sahra Son MD Primary Care Provider + Encounter Details Date Type Department Care Team (Late Contact Info) Description 04/28/2024 Orders Only [facility] [address] [place] [address] India Davalos [address] [place] [address] Chronic kidney disease, stage 2 [...] Visit [facility] [address] [place] [address] Barry Reyes MD [address] [place] [address] [place] [address] documented as of this encounter [...] Glucose 153(H) 70 - 99 mg/dL [facility] BUN 17 8 - 27 mg/dL [facility] Creatinine 0.98 0.57 - 1.00 mg/dL [facility] eGFR CKD-EPI CR 2020 64 >59 mL/min/1.7 3 [facility] BUN/Creatinine Ratio 17 12 - 28 [facility] Sodium 142 134 - 144 mmol/L [facility] Potassium 5.0 3.5 - 5.2 mmol/L [facility] Chloride 106 96 - 106 mmol/L [facility] Bicarbonate (CO2) 23 20 - 29 mmol/L [facility] Calcium 8.9 8.7 - 10.3 mg/dL [facility] Albumin 3.9 3.9 - 4.9 g/dL [facility] Phosphorus 3.9 3.0 - 4.3 mg/dL [facility] Blood (Blood, Venous) 05/05/2024 9:18 AM EST 05/05/2024 Barry Reyes MD LAB BLOOD ORDERABLES Final Re sult Performing Organization Address City/[facility]/ZIP Co de Phone Number [facility] [address] [place] [address] * (ABNORMAL) Ferritin (05/05/2024 9:18 AM EST) Ferritin 282(H) 15 - 150 ng/mL [facility] Blood (Blood, Venous) 05/05/2024 9:18 AM EST 05/05/2024 Barry Reyes MD LAB BLOOD ORDERABLES Final Re sult Performing Organization Address [facility] Co de Phone Number [facility] [address] [place] [address] * Iron Panel (Fe, TIBC, TSAT) (05/05/2024 9:18 AM EST) TIBC 277 250 - 450 ug/dL [facility] UIBC 210 118 - 369 ug/dL [facility] Iron 67 27 - 139 ug/dL [facility] Iron Saturation (TSat) 24 15 - 55 % [facility] Blood (Blood, Venous) 05/05/2024 9:18 AM EST 05/05/2024 Barry Reyes MD LAB BLOOD ORDERABLES Final Re sult Performing Organization Address City/[facility]/ZIP Co de Phone Number [facility] [address] [place] [address] * (ABNORMAL) CBC and Differential (05/05/2024 9:18 AM EST) [facility] Signature WBC 5.6 3.4 - 10.8 x10E3/uL [facility] RBC 5.33(H) 3.77 - 5.28 x10E6/uL [facility] Hemoglobin 10.2(L) 11.1 - 15.9 g/dL [facility] Hematocrit 35.0 34.0 - 46.6 % [facility] MCV 66(L) 79 - 97 fL [facility] MCH 19.1(L) 26.6 - 33.0 pg [facility] MCHC 29.1(L) 31.5 - 35.7 g/dL [facility] RDW 20.1(H) 11.7 - 15.4 % [facility] Platelets 163 150 - 450 x10E3/uL [facility] Neutrophils Relative 64 Not Estab. % [facility] Lymphocytes Relative 26 Not Estab. % [facility] Monocytes 6 Not Estab. % [facility] Eosinophils Relative 3 Not Estab. % [facility] Basophils Relative 1 Not Estab. % [facility] Neutrophils Absolute 3.6 1.4 - 7.0 x10E3/uL [facility] Lymphocytes Absolute 1.5 0.7 - 3.1 x10E3/uL [facility] Monocytes Absolute 0.3 0.1 - 0.9 x10E3/uL [facility] Eosinophils Absolute 0.2 0.0 - 0.4 x10E3/uL [facility] Basophils Absolute 0.0 0.0 - 0.2 x10E3/uL [facility] Immature Granulocytes 0 Not Estab. % [facility] Immature Grans (Absolute) 0.0 0.0 - 0.1 x10E3/uL [facility] Blood (Blood, Venous) 05/05/2024 9:18 AM EST 05/05/2024 us Barry Reyes MD LAB BLOOD ORDERABLES Final Re sult [facility] [address] [place] [address] documented in this encounter Visit Diagnoses Diagnosis Chronic kidney disease, stage 2 (mild) Anemia in chronic kidney disease Iron deficiency anemia, not otherwise specified documented in this encounter Care Teams Dozer Operator Relationship Specialty [place] [address] [place] [address] PCP - General Internal Medicine 10/28/22 documented as of this encounter
--- OUTSIDE RECORDS SUMMARY | 2024-09-25 09:51 | XMS_ITS | Encounter Summary ---
Author Organization [facility] Address [address] [place] [address] Phone Care Team Providers Care Fixed Income Manager Name Role Phone Sahra Son MD Primary Care Provider + Encounter Details Date Type Department Care Team ([facility] Contact Info) Description 06/25/2021 Documentation Only [facility] [address] [place] [address] India Davalos [address] [place] [address] Social History Tobacco Use Types [...] [facility] [address] [place] [address] Barry Reyes MD [address] [place] [address] [place] [address] documented as of this encounter Visit Diagnoses Not on filedocumented in this encounter Care Teams Fixed Income Manager Relationship Specialty Start Date End Date Sahra Son MD [address] [address] PCP - General Internal Medicine 10/28/22 documented as of this encounter
--- OUTSIDE RECORDS SUMMARY | 2024-09-25 09:51 | XMS_ITS | Encounter Summary ---
Author Organization [facility] Address [address] [place] [address] Phone Care Team Providers Care Senior Java Programmer Analyst Name Role Phone Sahra Son MD Primary Care Provider + Encounter Details Date Type Department Care Team (Late Contact Info) Description 05/26/2024 Orders Only [facility] [address] [place] [address] India Davalos [address] [place] [address] Chronic kidney disease, stage 2 [...] Visit [facility] [address] [place] [address] Barry Reyes MD [address] [place] [address] [place] [address] documented as of this [...] Glucose 168(H) 70 - 99 mg/dL [facility] BUN 17 8 - 27 mg/dL [facility] Creatinine 1.09(H) 0.57 - 1.00 mg/dL [facility] eGFR CKD-EPI CR 2020 57(L) >59 mL/min/1.7 3 [facility] BUN/Creatinine Ratio 16 12 - 28 [facility] Sodium 137 134 - 144 mmol/L [facility] Potassium 4.8 3.5 - 5.2 mmol/L [facility] Chloride 99 96 - 106 mmol/L [facility] Bicarbonate (CO2) 23 20 - 29 mmol/L [facility] Calcium 9.0 8.7 - 10.3 mg/dL [facility] Albumin 4.2 3.9 - 4.9 g/dL [facility] Phosphorus 4.4(H) 3.0 - 4.3 mg/dL [facility] Blood (Blood, Venous) 06/07/2024 11:53 AM EST 06/07/2024 Barry Reyes MD LAB BLOOD ORDERABLES Final Re sult Performing Organization Address City/[facility]/ZIP Co de Phone Number [facility] [address] [place] [address] * Ferritin (06/07/2024 11:53 AM EST) Ferritin 102 15 - 150 ng/mL [facility] Blood (Blood, Venous) 06/07/2024 11:53 AM EST 06/07/2024 Barry Reyes MD LAB BLOOD ORDERABLES Final Re sult Performing Organization Address [facility] de Phone Number [facility] [address] [place] [address] * Iron Panel (Fe, TIBC, TSAT) (06/07/2024 11:53 AM EST) TIBC 262 250 - 450 ug/dL [facility] UIBC 205 118 - 369 ug/dL [facility] Iron 57 27 - 139 ug/dL [facility] Iron Saturation (TSat) 22 15 - 55 % [facility] Blood (Blood, Venous) 06/07/2024 11:53 AM EST 06/07/2024 Barry Reyes MD LAB BLOOD ORDERABLES Final Re sult Performing Organization Address City/[facility]/ZIP Co de Phone Number [facility] [address] [place] [address] * (ABNORMAL) CBC and Differential (06/07/2024 11:53 AM EST) [facility] WBC 5.5 3.4 - 10.8 x10E3/uL [facility] RBC 5.76(H) 3.77 - 5.28 x10E6/uL [facility] Hemoglobin 11.1 11.1 - 15.9 g/dL [facility] Hematocrit 38.4 34.0 - 46.6 % [facility] MCV 67(L) 79 - 97 fL [facility] MCH 19.3(L) 26.6 - 33.0 pg [facility] MCHC 28.9(L) 31.5 - 35.7 g/dL [facility] RDW 18.8(H) 11.7 - 15.4 % [facility] Platelets 162 150 - 450 x10E3/uL [facility] Neutrophils Relative 59 Not Estab. % [facility] Lymphocytes Relative 31 Not Estab. % [facility] Monocytes 6 Not Estab. % [facility] Eosinophils Relative 2 Not Estab. % [facility] Basophils Relative 1 Not Estab. % [facility] Neutrophils Absolute 3.3 1.4 - 7.0 x10E3/uL [facility] Lymphocytes Absolute 1.7 0.7 - 3.1 x10E3/uL [facility] Monocytes Absolute 0.3 0.1 - 0.9 x10E3/uL [facility] Eosinophils Absolute 0.1 0.0 - 0.4 x10E3/uL [facility] Basophils Absolute 0.0 0.0 - 0.2 x10E3/uL [facility] Immature Granulocytes 1 Not Estab. % [facility] Immature Grans (Absolute) 0.0 0.0 - 0.1 x10E3/uL [facility] Blood (Blood, Venous) 06/07/2024 11:53 AM EST 06/07/2024 us Barry Reyes MD LAB BLOOD ORDERABLES Final Re sult [facility] [address] [place] [address] documented in this encounter Visit Diagnoses Diagnosis Chronic kidney disease, stage 2 (mild) Anemia in chronic kidney disease Iron deficiency anemia, not otherwise specified documented in this encounter Care Teams Senior Java Programmer Analyst Relationship Specialty [place] [address] [place] [address] PCP - General Internal Medicine 10/28/22 documented as of this encounter
--- OUTSIDE RECORDS SUMMARY | 2024-09-25 09:51 | XMS_ITS | Encounter Summary ---
Author Organization [facility] Address [address] [place] [address] Phone Care Team Providers Care Greenhouse Grower Name Role Phone Sahra Son MD Primary Care Provider + Encounter Details Date Type Department Care Team ([facility] Contact Info) Description 07/16/2023 Documentation Only [facility] [address] [place] [address] India Davalos [address] [place] [address] Social History Tobacco Use Types [...] [facility] [address] [place] [address] Baryr Reyes MD [address] [place] [address] [place] [address] documented as of this encounter Visit Diagnoses Not on filedocumented in this encounter Care Teams Greenhouse Grower Relationship Specialty Start Date End Date Sahra Son MD [address] [address] PCP - General Internal Medicine 10/28/22 documented as of this encounter
--- OUTSIDE RECORDS SUMMARY | 2024-09-25 09:51 | XMS_ITS | Encounter Summary ---
Author Organization [facility] Address [address] [place] [address] Phone Care Team Providers Care Deposition Operator Name Role Phone Sahra Son MD Primary Care Provider + Encounter Details Date Type Department Care Team ([facility] Contact Info) Description 04/05/2024 Documentation Only [facility] [address] [place] [address] India Davalos [address] [place] [address] Social History Tobacco Use Types [...] [facility] [address] [place] [address] Barry Reyes MD [address] [place] [address] [place] [address] documented as of this encounter Visit Diagnoses Not on filedocumented in this encounter Care Teams Deposition Operator Relationship Specialty Start Date End Date Sahra Son MD [address] [address] PCP - General Internal Medicine 10/28/22 documented as of this encounter
--- OUTSIDE RECORDS SUMMARY | 2024-09-25 09:51 | XMS_ITS | Encounter Summary ---
Author Organization [facility] Address [address] [place] [address] Phone Care Team Providers Care Cleaning Porter Name Role Phone Sahra Son MD Primary Care Provider + Encounter Details Date Type Department Care Team ([facility] Contact Info) Description 10/07/2021 Documentation Only [facility] [address] [place] [address] India Davalos [address] [place] [address] Social History Tobacco Use Types [...] [facility] [address] [place] [address] Barry Reyes MD [address] [place] [address] [place] [address] documented as of this encounter Visit Diagnoses Not on filedocumented in this encounter Care Teams Cleaning Porter Relationship Specialty Start Date End Date Sahra Son MD [address] [address] PCP - General Internal Medicine 10/28/22 documented as of this encounter
--- OUTSIDE RECORDS SUMMARY | 2024-09-25 09:51 | XMS_ITS | Encounter Summary ---
Author Organization [facility] Address [address] [place] [address] Phone Care Team Providers Care Vice Chair Name Role Phone Sahra Son MD Primary Care Provider + Encounter Details Date Type Department Care Team ([facility] Contact Info) Description 12/24/2022 Documentation Only [facility] [address] [place] [address] Carol Whelan [address] [place] [address] Social History Tobacco Use Types [...] Visit [facility] [address] [place] [address] Barry Reyes MD [address] [facility] [place] [address] documented as of this encounter Visit Diagnoses Not on filedocumented in this encounter Care Teams Vice Chair Relationship Specialty Start Date End Date Sahra Son MD [address] [address] PCP - General Internal Medicine 10/28/22 documented as of this encounter
--- OUTSIDE RECORDS SUMMARY | 2024-09-25 09:51 | XMS_ITS | Encounter Summary ---
Author Organization [facility] Address [address] [place] [address] Phone Care Team Providers Care Social Contact Worker Name Role Phone Sahra Son MD Primary Care Provider + Encounter Details Date Type Department Care Team ([facility] Contact Info) Description 07/16/2023 Documentation Only [facility] [address] [place] [address] India Davalos [address] [place], [place] [...] [facility] [address] [place] [address] Barry Reyes MD [address] [place] [address] [place] [address] documented as of this encounter Visit Diagnoses Not on filedocumented in this encounter Care Teams Social Contact Worker Relationship Specialty Start Date End Date Sahra Son MD [address] [address] PCP - General Internal Medicine 10/28/22 documented as of this encounter
--- OUTSIDE RECORDS SUMMARY | 2024-09-25 09:51 | XMS_ITS | Encounter Summary ---
Author Organization [facility] Address [address] [place] [address] Phone Care Team Providers Care Cook 3 Pastry Name Role Phone Sahra Son MD Primary Care Provider + Encounter Details Date Type Department Care Team (Late Contact Info) Description 09/01/2024 Orders Only [facility] [address] [place] [address] India Davalos [address] [place] [address] Anemia in chronic kidney disease; [...] Visit [facility] [address] [facility] [place] [address] Barry Reyes MD [address] [place] [address] [place] [address] documented as of this encounter [...] Glucose 233(H) 70 - 99 mg/dL [facility] BUN 15 8 - 27 mg/dL [facility] Creatinine 1.01(H) 0.57 - 1.00 mg/dL [facility] eGFR CKD-EPI CR 2020 62 >59 mL/min/1.7 3 [facility] BUN/Creatinine Ratio 15 12 - 28 [facility] Sodium 138 134 - 144 mmol/L [facility] Potassium 4.9 3.5 - 5.2 mmol/L [facility] Chloride 101 96 - 106 mmol/L [facility] Bicarbonate (CO2) 19(L) 20 - 29 mmol/L [facility] Calcium 9.1 8.7 - 10.3 mg/dL [facility] Albumin 4.2 3.9 - 4.9 g/dL [facility] Phosphorus 3.8 3.0 - 4.3 mg/dL [facility] Blood (Blood, Venous) 09/06/2024 8:15 AM EDT 09/06/2024 Barry Reyes MD LAB BLOOD ORDERABLES Final Re sult Performing Organization Address City/[facility]/ZIP Co de Phone Number [facility] [address] [place] [address] * Ferritin (09/06/2024 8:15 AM EDT) Ferritin 37 15 - 150 ng/mL [facility] Blood (Blood, Venous) 09/06/2024 8:15 AM EDT 09/06/2024 Barry Reyes MD LAB BLOOD ORDERABLES Final Re sult Performing Organization Address [facility] de Phone Number [facility] [address] [place] [address] * (ABNORMAL) Iron Panel (Fe, TIBC, TSAT) (09/06/2024 8:15 AM EDT) TIBC 323 250 - 450 ug/dL [facility] UIBC 286 118 - 369 ug/dL [facility] Iron 37 27 - 139 ug/dL [facility] Iron Saturation (TSat) 11(L) 15 - 55 % [facility] Blood (Blood, Venous) 09/06/2024 8:15 AM EDT 09/06/2024 Barry Reyes MD LAB BLOOD ORDERABLES Final Re sult Performing Organization Address City/[facility]/ZIP Co de Phone Number [facility] [address] [place] [address] * (ABNORMAL) CBC and Differential (09/06/2024 8:15 AM EDT) [facility] WBC 6.3 3.4 - 10.8 x10E3/uL [facility] RBC 5.35(H) 3.77 - 5.28 x10E6/uL [facility] Hemoglobin 10.6(L) 11.1 - 15.9 g/dL [facility] Hematocrit 35.8 34.0 - 46.6 % [facility] MCV 67(L) 79 - 97 fL [facility] MCH 19.8(L) 26.6 - 33.0 pg [facility] MCHC 29.6(L) 31.5 - 35.7 g/dL [facility] RDW 18.4(H) 11.7 - 15.4 % [facility] Platelets 190 150 - 450 x10E3/uL [facility] Neutrophils Relative 67 Not Estab. % [facility] Lymphocytes Relative 22 Not Estab. % [facility] Monocytes 6 Not Estab. % [facility] Eosinophils Relative 3 Not Estab. % [facility] Basophils Relative 1 Not Estab. % [facility] Neutrophils Absolute 4.3 1.4 - 7.0 x10E3/uL [facility] Lymphocytes Absolute 1.4 0.7 - 3.1 x10E3/uL [facility] Monocytes Absolute 0.4 0.1 - 0.9 x10E3/uL [facility] Eosinophils Absolute 0.2 0.0 - 0.4 x10E3/uL [facility] Basophils Absolute 0.1 0.0 - 0.2 x10E3/uL [facility] Immature Granulocytes 1 Not Estab. % [facility] Immature Grans (Absolute) 0.1 0.0 - 0.1 x10E3/uL [facility] Blood (Blood, Venous) 09/06/2024 8:15 AM EDT 09/06/2024 us Barry Reyes MD LAB BLOOD ORDERABLES Final Re sult [facility] [address] [place] [address] documented in this encounter Visit Diagnoses Diagnosis Anemia in chronic kidney disease Other iron deficiency anemia Chronic kidney disease, stage 2 (mild) documented in this encounter Care Teams Cook 3 Pastry Relationship Specialty [place] [address] [place] [address] PCP - General Internal Medicine 10/28/22 documented as of this encounter
--- OUTSIDE RECORDS SUMMARY | 2024-09-25 09:52 | XMS_ITS | Encounter Summary ---
Author Organization [facility] Address [address] [place] [address] Phone Care Team Providers Care Fire Code Inspector Name Role Phone Sahra Son MD Primary Care Provider + Encounter Details Date Type Department Care Team (Late Contact Info) Description 06/23/2024 Orders Only [facility] [address] [place] [address] India Davalos [address] [place] [address] Chronic kidney disease, stage 2 [...] [facility] [address] [facility] [address] [place] [address] Barry Reyes MD [address] [place] [address] [place] [address] documented as of this encounter Visit Diagnoses Diagnosis Chronic kidney disease, stage 2 (mild) Anemia in chronic kidney disease Iron deficiency anemia, not otherwise specified documented in this encounter Care Teams Fire Code Inspector Relationship Specialty Start Date End Date Sahra Son MD [facility] [place] [address] PCP - General Internal Medicine 10/28/22 documented as of this encounter
--- OUTSIDE RECORDS SUMMARY | 2024-09-25 09:52 | XMS_ITS | Encounter Summary ---
Author Organization [facility] Address [address] [place] [address] Phone Care Team Providers Care Desk Operator Name Role Phone Sahra Son MD Primary Care Provider + Encounter Details Date Type Department Care Team (Late Contact Info) Description 07/21/2024 Orders Only [facility] [address] [place] [address] India Davalos [address] [place] [address] Chronic kidney disease, stage 2 [...] [facility] [address] [place] [address] Barry Reyes MD [address] [place] [address] [place] [address] documented as of this encounter Visit Diagnoses Diagnosis Chronic kidney disease, stage 2 (mild) Anemia in chronic kidney disease Iron deficiency anemia, not otherwise specified documented in this encounter Care Teams Desk Operator Relationship Specialty Start Date End Date Sahra Son MD [facility] [place] [address] PCP - General Internal Medicine 10/28/22 documented as of this encounter
--- OUTSIDE RECORDS SUMMARY | 2024-09-25 09:52 | XMS_ITS | Clinical Summary ---
Author Organization [facility] Address [address] [place] [address] Care Team Providers Care Mushroom Cutter Name Role Phone Geovani Natalie Carmelo ESPARZA Primary Care Provider [phone] Allergies Active Allergy Reactions Criticality Noted Date [...] 1 10/04/2016 Active ergocalciferol (VITAMIN D2) capsule 09435 units TK ONE C PO TWICE A [...] times a day. 0 04/27/2022 Active pancrelipase, Ygm-Qubh-Jbbm, (Creon) [address] units CPEP TK ONE C PO TID [...] age to complete this topic Care Teams Mushroom Cutter Relationship Specialty Start Date End Date Natalie Olivo APRN [address] [place] [address] PCP - General Insole And Outsole Splitter 04/30/22
== END 2024-09-25 09:54 | disposition home or self-care (01) ==
LOC: HO.ACS 09:33
PROVIDERS: PCP Internal Medicine; Visit Provider Internal Medicine Medical Oncology
DX: Z79.01 Long term (current) use of anticoagulants (principal)

== ENCOUNTER → 2024-09-25 09:33 | Outpatient (BNVA) | payer OTHER, SELFPAY | PROVIDERS: PCP Internal Medicine; Visit Provider Internal Medicine Medical Oncology | DX: Z86.718 Personal history of other venous thrombosis and embolism (principal); Z79.01 Long term (current) use of anticoagulants; Z51.81 Encounter for therapeutic drug level monitoring | CPT/HCPCS: 85610; 99211 ==

== ENCOUNTER 2024-10-11 09:07 | Outpatient (AMB) | payer OTHER, SELFPAY ==
--- NOTE | 2024-10-11 09:18 | MHC.OFFVISCO ---
Intake Intake Visit Reasons: Anticoagulation Allergies codeine [Codeine] Allergy (Severe, Verified 10/11/24 09:18) DIFFICULTY BREATHING Penicillins Allergy (Severe, Verified 10/11/24 09:18) RASH penicillin V Allergy (Intermediate, Verified 10/11/24 09:18) RASH tramadol [Ultram] Allergy (Unknown, Verified 10/11/24 09:18) hallucinations Shellfish Allergy (Severe, Uncoded 10/11/24 09:18) THROAT SWELLING Contrast Allergy PreMed Pack Allergy (Unknown, Uncoded 10/11/24 09:18) TREAT WITH BENADRYL ferrlecit Adverse Reaction (Intermediate, Uncoded 10/11/24 09:18) Rash Medication List - Last Reconciled 10/11/24 by Barbara Lr RN atorvastatin 80 mg PO DAILY blood sugar diagnostic As directed budesonide (Pulmicort) 0.25 mg inhalation BID clonidine HCl 0.1 mg PO BID duloxetine 120 mg PO QAM epoetin marj (Procrit) 2,000 units subcut 3XW hydrocortisone 2.5% appl topical ipratropium-albuterol 0.5 mg-3 mg(2.5 mg base)/3 mL mL inhalation ipratropium-albuterol 20-100 mcg/actuation 1 puff PO QID ipratropium-albuterol 20-100 mcg/actuation (Combivent Respimat) 1 puff inhalation Q4H lancets As directed lancets As directed latanoprost 0.005% drps ophthalmic (eye) linaclotide (Linzess) 145 mcg PO DAILY linagliptin (Tradjenta) 5 mg PO DAILY onmehh-vopjojol-ndpkffl 24,000-76,000 -120,000 unit (Creon) 1 cap PO TID loratadine 10 mg PO DAILY PRN lorazepam 1 mg PO BID meclizine mg PO montelukast 10 mg PO BEDTIME nifedipine ER 30 mg PO DAILY nitroglycerin 0.4 mg sublingual Q5M PRN nystatin 1 appl topical DAILY PRN ondansetron 4 mg PO Q8H PRN oxcarbazepine (Trileptal) 1 tab qhs x's 1 week then 1 tab bid orally .; 30 days quetiapine 200 mg PO BEDTIME rabeprazole 20 mg PO DAILY ropinirole 0.25 mg PO BEDTIME sodium chloride 0.65% (Deep Sea Nasal) sprays intranasal Q2H PRN triamcinolone acetonide 0.1% appl topical warfarin 2.5 mg See Protocol PO DAILY Nursing Note INR: 2.0- in therapeutic range of 2-3 Medications and supplements reviewed- no changes sched for iron transfusion 10/19/24 No changes in health, diet, medications, or supplements, pt with c,.o signs and symptoms of bleeding or bruising - states small amount of rectal bleed one week ago, and nosebleed 2 days ago enc to report any s/s bleeding to pcp pt with c.o pain postior RLE, has appt with kidney md and will report to him for f/u Bleeding, bruising, clotting discussed Nutritional guidance given - no greens for 2 days, eat reds to raise Dose: 3.75mg x 2, 5mg x 5 F/U INR: 10 days Patient verbalizes understanding of instructions given t/c placed to pcp office to report bleeding/bruising and pain in upper right leg- spoke to kyara Puentes Initial Assessment Social Hx Patient Tobacco Use Status: Current everyday Tobacco user alcohol intake: never Coding Level of Care Code Est Patient Level 1 Diagnoses Current use of anticoagulant therapy Z79.01 Assessment & Plan Assessment & Plan (1) Current use of anticoagulant therapy: Code(s): Z79.01 - residential (current) use of anticoagulants Category: Medical
[2024-10-11 09:24] LABS: Prothrombin Time Whole Bld POC 24.3 sec (11.1-13.5)
--- OUTSIDE RECORDS SUMMARY | 2024-10-11 09:41 | XMS_ITS | Encounter Summary ---
Author Organization [facility] Address [address] [place] [address] Phone Care Team Providers Care Schedule Maker Name Role Phone Sahra Son MD Primary Care Provider + Encounter Details Date Type Department Care Team ([facility] Contact Info) Description 06/18/2021 Documentation Only [facility] [address] [place] [address] India Davalos [address] [place] [address] Social History Tobacco Use Types [...] [facility] [address] [place] [address] Barry Reyes MD [address] [place] [address] [place] [address] documented as of this encounter Visit Diagnoses Not on filedocumented in this encounter Care Teams Schedule Maker Relationship Specialty Start Date End Date Sahra Son MD [address] [address] PCP - General Internal Medicine 10/28/22 documented as of this encounter
== END 2024-10-11 09:46 | disposition home or self-care (01) ==
LOC: HO.ACS 09:07
PROVIDERS: PCP Internal Medicine; Visit Provider Internal Medicine Medical Oncology
DX: Z79.01 Long term (current) use of anticoagulants (principal)

== ENCOUNTER → 2024-10-11 09:07 | Outpatient (BNVA) | payer OTHER, SELFPAY | PROVIDERS: PCP Internal Medicine; Visit Provider Internal Medicine Medical Oncology | DX: Z86.718 Personal history of other venous thrombosis and embolism (principal); Z79.01 Long term (current) use of anticoagulants; Z51.81 Encounter for therapeutic drug level monitoring | CPT/HCPCS: 85610; 99211 ==

== ENCOUNTER 2024-10-30 08:10 | Outpatient (AMB) | payer OTHER, SELFPAY ==
--- OUTSIDE RECORDS SUMMARY | 2024-10-30 08:20 | XMS_ITS | Encounter Summary ---
Author Organization [facility] Address [address] [place] [address] Phone Care Team Providers Care Infrastructure Analyst Name Role Phone Sahra Son MD Primary Care Provider + Encounter Details Date Type Department Care Team ([facility] Contact Info) Description 06/18/2021 Documentation Only [facility] [address] [place] [address] India Davalos [address] [place] [address] Social History Tobacco Use Types [...] Services Of [address] [place] [address] Barry Reyes MD [address] [place] [address] [place] [address] documented as of this encounter Visit Diagnoses Not on filedocumented in this encounter Care Teams Infrastructure Analyst Relationship Specialty Start Date End Date Sahra Son MD [address] [address] PCP - General Internal Medicine 10/28/22 documented as of this encounter
--- NOTE | 2024-10-30 08:29 | MHC.OFFVISCO ---
Intake Intake Visit Reasons: Anticoagulation Allergies codeine [Codeine] Allergy (Severe, Verified 10/30/24 08:21) DIFFICULTY BREATHING Penicillins Allergy (Severe, Verified 10/30/24 08:21) RASH penicillin V Allergy (Intermediate, Verified 10/30/24 08:21) RASH tramadol [Ultram] Allergy (Unknown, Verified 10/30/24 08:21) hallucinations Shellfish Allergy (Severe, Uncoded 10/30/24 08:21) THROAT SWELLING Contrast Allergy PreMed Pack Allergy (Unknown, Uncoded 10/30/24 08:21) TREAT WITH BENADRYL ferrlecit Adverse Reaction (Intermediate, Uncoded 10/30/24 08:21) Rash Medication List - Last Reconciled 10/30/24 by Barbara Lr RN atorvastatin 80 mg PO DAILY blood sugar diagnostic As directed budesonide (Pulmicort) 0.25 mg inhalation BID clonidine HCl 0.1 mg PO BID duloxetine (Cymbalta) 30 mg PO DAILY duloxetine 60 mg PO QAM epoetin marj (Procrit) 2,000 units subcut 3XW hydrocortisone 2.5% appl topical ipratropium-albuterol 0.5 mg-3 mg(2.5 mg base)/3 mL mL inhalation ipratropium-albuterol 20-100 mcg/actuation 1 puff PO QID ipratropium-albuterol 20-100 mcg/actuation (Combivent Respimat) 1 puff inhalation Q4H lancets As directed lancets As directed latanoprost 0.005% drps ophthalmic (eye) linaclotide (Linzess) 145 mcg PO DAILY linagliptin (Tradjenta) 5 mg PO DAILY iraafg-iaclaxwl-vaaoyjn 24,000-76,000 -120,000 unit (Creon) 1 cap PO TID loratadine 10 mg PO DAILY PRN lorazepam 1 mg PO BID meclizine mg PO montelukast 10 mg PO BEDTIME nifedipine ER 30 mg PO DAILY nitroglycerin 0.4 mg sublingual Q5M PRN nystatin 1 appl topical DAILY PRN ondansetron 4 mg PO Q8H PRN oxcarbazepine (Trileptal) 1 tab qhs x's 1 week then 1 tab bid orally .; 30 days quetiapine 200 mg PO BEDTIME rabeprazole 20 mg PO DAILY ropinirole 0.25 mg PO BEDTIME sodium chloride 0.65% (Deep Sea Nasal) sprays intranasal Q2H PRN triamcinolone acetonide 0.1% appl topical warfarin 2.5 mg See Protocol PO DAILY Nursing Note INR: 2.7- in therapeutic range of 2-3 Medications and supplements reviewed pt states cymbalta was reduced from 120mg to 90mg. this does interact with warfarin per micromedex No changes in health, diet, medications, or supplements, Denies any signs and symptoms of bleeding or bruising or clotting. Bleeding, bruising, clotting discussed Nutritional guidance given Dose: 3.75mg x 2, 5mg x 5 F/U INR: 1 week due to med changes Patient verbalizes understanding of instructions given pt states she called [facility] due to not feeling well and abdominal distention, she states they came to her house and gave her IVF pt with c.o diarrhea over the weekend with nausea, states small amount rectal bleed last week. enc to call pcp with any bleeding Anti-Coag Initial Assessment Social Hx Patient Tobacco Use Status: Current everyday Tobacco user alcohol intake: never Coding Level of Care Code Est Patient Level 1 Diagnoses Current use of anticoagulant therapy Z79.01 Assessment & Plan Assessment & Plan (1) Current use of anticoagulant therapy: Code(s): Z79.01 - inspector process (current) use of anticoagulants Category: Medical
[2024-10-30 08:30] LABS: Prothrombin Time Whole Bld POC 32.1 sec (11.1-13.5); ~PT, ~INR - Anti Coag Clinic 2.7 (0.9-1.1)
== END 2024-10-30 08:38 | disposition home or self-care (01) ==
LOC: HO.ACS 08:10
PROVIDERS: PCP Internal Medicine; Visit Provider Internal Medicine Medical Oncology
DX: Z79.01 Long term (current) use of anticoagulants (principal)

== ENCOUNTER → 2024-10-30 08:10 | Outpatient (BNVA) | payer OTHER, SELFPAY | PROVIDERS: PCP Internal Medicine; Visit Provider Internal Medicine Medical Oncology | DX: Z86.718 Personal history of other venous thrombosis and embolism (principal); Z79.01 Long term (current) use of anticoagulants; Z51.81 Encounter for therapeutic drug level monitoring | CPT/HCPCS: 85610; 99211 ==

== ENCOUNTER 2024-11-22 09:14 | Outpatient (AMB) | payer OTHER, SELFPAY ==
[2024-11-22 09:22] LABS: Prothrombin Time Whole Bld POC 19.4 sec (11.1-13.5); ~PT, ~INR - Anti Coag Clinic 1.6 (0.9-1.1)
--- NOTE | 2024-11-22 09:23 | MHC.OFFVISCO ---
Intake Intake Visit Reasons: Anticoagulation Allergies codeine (Codeine) Allergy (Severe, Verified 11/22/24 09:17) DIFFICULTY BREATHING Penicillins Allergy (Severe, Verified 11/22/24 09:17) RASH penicillin V Allergy (Intermediate, Verified 11/22/24 09:17) RASH tramadol (Ultram) Allergy (Unknown, Verified 11/22/24 09:17) hallucinations Shellfish Allergy (Severe, Uncoded 11/22/24 09:17) THROAT SWELLING Contrast Allergy PreMed Pack Allergy (Unknown, Uncoded 11/22/24 09:17) TREAT WITH BENADRYL ferrlecit Adverse Reaction (Intermediate, Uncoded 11/22/24 09:17) Rash Medication List - Last Reconciled 11/22/24 by Barbara Lr RN atorvastatin 80 mg PO DAILY blood sugar diagnostic As directed budesonide (Pulmicort) 0.25 mg inhalation BID clonidine HCl 0.1 mg PO BID duloxetine (Cymbalta) 30 mg PO DAILY duloxetine 60 mg PO QAM epoetin marj (Procrit) 2,000 units subcut 3XW hydrocortisone 2.5% appl topical ipratropium-albuterol 0.5 mg-3 mg(2.5 mg base)/3 mL mL inhalation ipratropium-albuterol 20-100 mcg/actuation 1 puff PO QID ipratropium-albuterol 20-100 mcg/actuation (Combivent Respimat) 1 puff inhalation Q4H lancets As directed lancets As directed latanoprost 0.005% drps ophthalmic (eye) linaclotide (Linzess) 145 mcg PO DAILY linagliptin (Tradjenta) 5 mg PO DAILY fvtzke-dfzftlcq-ofyumqw 24,000-76,000 -120,000 unit (Creon) 1 cap PO TID loratadine 10 mg PO DAILY PRN lorazepam 1 mg PO BID meclizine mg PO montelukast 10 mg PO BEDTIME nifedipine ER 30 mg PO DAILY nitroglycerin 0.4 mg sublingual Q5M PRN nystatin 1 appl topical DAILY PRN ondansetron 4 mg PO Q8H PRN oxcarbazepine (Trileptal) 150 mg PO Q12H 30 days quetiapine 200 mg PO BEDTIME rabeprazole 20 mg PO DAILY ropinirole 0.25 mg PO BEDTIME sodium chloride 0.65% (Deep Sea Nasal) sprays intranasal Q2H PRN triamcinolone acetonide 0.1% appl topical warfarin 2.5 mg See Protocol PO DAILY Nursing Note INR 1.6-?? out of therapeutic range 2-3 Medications and supplements reviewed Patient status: pt denies missed dose, c.o rib strain right since yesterday and call and called md pt to use med minder Medications or supplements: no changes Diet: same Denies any signs and symptoms of bleeding or clotting or unusual bruising Bleeding, bruising, clotting discussed - pt c.o constipation at times with occ rectal smear with wiping- enc to report to md Nutritional guidance given: no greens for 2-3 days, eat reds to raise Dose: increase todays dose warfarin to 5mg then cont 3.75mg x 2, 5mg x 5 F/U INR Date :1 week? Patient verbalizing understanding of instructions given. 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
--- OUTSIDE RECORDS SUMMARY | 2024-11-22 09:31 | XMS_ITS | Encounter Summary ---
Author Organization [employer] [facility] Address [address] [place] [address] Care Team Providers Care Toppiece Chopper Name Role Phone Sahra Son MD Primary Care Provider Marko Fernandez MD Unavailable [phone] Encounter Details Date Type Department Care Team Description 09/02/2022 Telephone Pulmonology - [place] [address] [facility] [address] [place] [phone] Betty Morillo MD [address] [facility] [address] [place] [phone] Social History Tobacco Use Types Packs/Day Years [...] pcp [facility] requesting last office notes fax [phone] documented in this encounter Plan of Treatment Not on file documented as of this encounter Visit Diagnoses Not on filedocumented in this encounter Care Teams Toppiece Chopper Relationship Specialty Start Date End Date Sahra Son MD PCP - General Internal Medicine 08/31/22 Marko Spaulding MD Specialist Cardiology 09/23/22 documented as of this encounter
--- OUTSIDE RECORDS SUMMARY | 2024-11-22 09:31 | XMS_ITS | Encounter Summary ---
Author Organization [facility] Address [address] [place] [phone] Care Team Providers Care Administrative Office Assistant Name Role Phone Sahra Son MD Primary Care Provider + Reason for Visit * Reason Onset Date Comments appointment 11/15/2024 Encounter Details Date Type Department Care Team (Late st Contact Info) Description 11/15/2024 Telephone Gastroenterology - [place] [address] [place] [address] Jc Guerrier MD [address] [facility] [address] [place], [place] [phone] appointment Social History Tobacco Use Types Packs/Day Years [...] on file documented as of this encounter Progress Notes * Janet Kelley - 11/15/2024 1:32 PM EDT Records received from [facility] Primary Care for rectocele, abdominal distension, fatty liver, chronic pancreatitis. LVM to schedule appointment. Records scanned - [place] documented in this encounter Plan of Treatment Upcoming Encounters Date Type Department Care Team (Late st Contact Info) Description 02/08/2025 9:10 AM EDT Consult Gastroenterology - [place] [address] [place] [address] Deloris Vickers PA [address] [place] [address] documented as of this encounter Visit Diagnoses Not on filedocumented in this encounter Care Teams Administrative Office Assistant Relationship Specialty Start Date End Date Sahra Son MD [address] [place] [address] [address] [place] [address] PCP - General Internal Medicine 11/15/24 documented as of this encounter
--- OUTSIDE RECORDS SUMMARY | 2024-11-22 09:31 | XMS_ITS | Encounter Summary ---
Author Organization [facility] Address [address] [place] [address] Phone Care Team Providers Care Online Marketing Analyst Name Role Phone Sahra Son MD Primary Care Provider + Encounter Details Date Type Department Care Team ([facility] Contact Info) Description 06/18/2021 Documentation Only [facility] [address] [place] [address] India Davalos [address] [place] [address] Social History Tobacco Use Types [...] [facility] [address] [place] [address] Barry Reyes MD [address] [place] [address] [place] [address] documented as of this encounter Visit Diagnoses Not on filedocumented in this encounter Care Teams Online Marketing Analyst Relationship Specialty Start Date End Date Sahra Son MD [address] [address] PCP - General Internal Medicine 10/28/22 documented as of this encounter
--- OUTSIDE RECORDS SUMMARY | 2024-11-22 09:31 | XMS_ITS | Clinical Summary ---
Author Organization [facility] Address [address] [place] [address] Care Team Providers Care Registered Travel Nurse Name Role Phone Geovani Natalie Carmelo ESPARZA Primary Care Provider [phone] Allergies Active Allergy Reactions Criticality Noted Date [...] 1 10/04/2016 Active ergocalciferol (VITAMIN D2) capsule 00438 units TK ONE C PO TWICE A [...] times a day. 0 04/27/2022 Active pancrelipase, Msg-Zupt-Ljvo, (Creon) [address] units CPEP TK ONE C PO TID [...] 82 08/17/2023 10:48 AM EDT Temperature 36.6 C (97.8 F) 08/17/2023 10:48 AM EDT Respiratory Rate 18 08/17/2023 10:48 AM EDT [...] of 2 - PCV) 10/19/2012 10/20/2011, 01/03/2007 Fall Risk Assessment 11/07/2024 Osteoporosis Screening (DEXA Scan) 11/07/2024 Influenza Vaccine (#1) 2025 RSV Adult > 60+ Yrs or (1 - 1-dose 75+ series) 11/07/2034 Hepatitis B Vaccines Completed 07/14/2023, 06/08/2023, 02/23/2023, Additional history exists RSV Ped < 20 months Aged Out No longe r eligible based on patient's age to complete this topic Care Teams Registered Travel Nurse Relationship Specialty Start Date End Date Natalie Olivo APRN [address] [place] [address] PCP - General Women'S Activities Adviser 04/30/22
--- OUTSIDE RECORDS SUMMARY | 2024-11-22 09:31 | XMS_ITS | Continuity of Care Document ---
Author Name Felix Tariq Address [address] [place] [id number] Organization Unknown Address [address] [place] [address] Medications No known medications Problems No known problems
--- OUTSIDE RECORDS SUMMARY | 2024-11-22 09:31 | XMS_ITS | Data Portability ---
Author Organization Client24 - [facility] [place] [facility] Address [address] [place] [address] Care Team Providers Care Wrecking Mechanic Name Role Phone HIM CCA OTHER Assessment Encounter Date Assessment Date Assessment LastModified by Organization Details LastModified Time 08/03/2023 08/03/2023 Ms. 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 VSS. Equipment Operat0R on site reports no acute distress, wheezing [...] Assessment and Plan as documented by the Equipment Operat0R. We discussed the diagnostic uncertainty of home visits and the risk associated with this The patient given the opportunity to ask questions. Call placed to [facility] ER expect line [email or web address] Not available 09/16/2023 11:20:43 08/17/2024 08/17/2024 I have reviewed and agree with the assessment and plan as documented by the web marketing manager. I provided real time medical direction for this encounter and was immediately available to provide additional phone based assistance as needed. History as noted by web marketing manager. Pt with history of type 2 diabetes [...] with her. [email or web address] Not available 08/17/2024 16:18:12 10/25/2024 10/25/2024 As noted, we were called to see this patient regarding concerns of abdominal pain. Evaluation in the field was performed by my web marketing manager colleague, as noted above, I provided real-time direction and supervision for this visit. The evaluation revealed 63y F with CHF and 3d abdominal pain, mild, but developed vomiting and diarrhea today. Reports difficulty w fluid PO due to nausea. Abdomen w some diffuse mild tenderness. POC labs reveal WNL electrlytes and renal function, neg COVID flu. Unable to provide urine. Sxs most c/w gastroenteritis, and given stable labs, responded well to fluids and ondansetron, recommend to stay home but with low threshold to present to ER if sxs worsening to ruleout intraabominal process requiring further intervention Impression: ab pain, n, v, d Plan: - 500cc fluid (verbal okay to medic for NS) w POC chem and ID swabs - urine culture could not be collected - call back if develops dysuria - precautions Primary care, consider f/u in office in 5-7d for re-eval Disposition: We discussed the diagnostic uncertainty of home visits and the risk associated with this. In this case, the patient and I felt this to be an acceptable and reasonable amount of risk given the benefit of avoiding an ED visit. We discussed the need to seek care urgently/emergen tly in the setting of any new or worsening serious symptoms, particularly worsening abdominal pain, voimiting, fever, malaise, confusion [email or web address] Not available 10/25/2024 17:35:23 Plan of Treatment Reminders Order Date Submit Date Provider Last Modified By Organization Details Last Modified Time Details Appointments None recorded. Lab culture, urine 2024 025 [employer] [facility] (Centralized Electronic Ordering - All Locations), Patient Can Go To The Location Of Their Choice, [id number] 5 08:25:21 urinalysis, dipstick 2024 025 [facility], [address] [place] [address], [place], [id number] 5 20:21:31 respiratory pathogens DNA + RNA panel, DONOVAN+probe, nasopharynx 2024 025 [employer] [facility] (Centralized Electronic Ordering - All Locations), Patient Can Go To The Location Of Their Choice, [id number] 5 18:18:02 BMP, serum or plasma 2024 025 [facility], [address] [place] [address], [phone] 5 20:21:31 glucose, fingerstick , blood 2023 024 [email or web address] 0 [facility], [address] [place] [address], [phone] 4 11:21:41 Referral None recorded. Procedures None recorded. Surgeries None recorded. Imaging None recorded. Medication Orders lactated Ringers intravenous solution 2024 025 [facility] #45548, [address], [place], [id number], 5 16:57:07 ondansetron HCl (PF) 4 mg/2 mL injection solution 2024 025 [facility] #60799, [address], [place], [id number], 5 16:57:04 ketorolac 60 mg/2 mL intramuscul ar solution 2024 025 [facility] #68542, [address], [place], [id number], 5 16:08:53 lidocaine 4 % topical patch 2024 025 [facility], [address], [place], [id number], 5 16:08:59 prednisone 10 mg tablet 2023 024 [facility], [address], [place], [id number], 4 11:51:08 azithromyci n 250 mg tablet 2023 024 [facility], [address], [place], [id number], 4 11:51:18 azithromyci n 250 mg tablet [address] [facility]77574, [address], [place], [id number], 4 11:50:53 prednisone 20 mg tablet [address] [facility] #90890, [address], [place], [id number], 4 11:50:53 Patient TargetsNo targets recorded. Patient InstructionsNo instructions recorded. Reason for Referral None Reported. Results Created Date Observation Date Name Description Value Unit Range Abnormal Flag Note LastModifiedBy Organization Detail LastModifiedTime 07/07/19 24 07/07/2023 BMP, serum or plasm a BUN 17 Not Available Main - [address], [address] [place] [address] 07/07/2023 15:06:01 07/07/19 24 07/07/2023 BMP, serum or plasm a Ca 1.13 ionize d Not Available [facility] - [address], [address] [place] [address] 07/07/2023 15:06:01 07/07/19 24 07/07/2023 BMP, serum or plasm a CI- 104 Not Available Main - Ins [address], [address] [place] [address] 07/07/2023 15:06:01 07/07/19 24 07/07/2023 BMP, serum or plasm a CRE 0.9 Not Available Main - Ins [address], [address] [place] [address] 07/07/2023 15:06:01 07/07/19 24 07/07/2023 BMP, serum or plasm a GLU 182 Not Available Main - Ins [address], [address] [place] [address] 07/07/2023 15:06:01 07/07/19 24 07/07/2023 BMP, serum or plasm a K+ 3.8 Not Available Main - [address], [address] [place] [address] 07/07/2023 15:06:01 07/07/19 24 07/07/2023 BMP, serum or plasm a Na+ 140 Not Available Main - Ins [address], [address] 07/07/2023 15:06:01 07/07/19 24 07/07/2023 BMP, serum or plasm a tCO2 23 Not Available Main - Ins [address], [address] 07/07/2023 15:06:01 09/16/19 24 09/16/2023 gluco se, finge rstic k, blood Blood Glucose: mg/dl 215 Not Available Main - [facility] [address] [place] [address], [phone] 09/16/2023 11:21:03 Result Notes None recorded. Medical Equipment None Reported. Allergies Allergen ID Allergen Name Allergen Category Reaction Reaction Severity Criticality Documentation Date Start Date Code Code System Note Provider Name and Address Organization Details Recorded Time 1746 codeine medicatio n Not available Not available Not available 05/27/2022 2670 RxNorm Not Available [facility] - production 5 14:05:30 1748 shellfish derived food,medi cation Not available Not available Not available 05/27/2022 55945 UNK Nidia Morales MD [address] [place] [address],[address], [place], [address], [employer] 3 14:08:14 1749 Product containin g penicilli n (product) medicatio n Not available Not available Not available 05/27/2022 21191 8001 SNOMED Not Available [facility] - production 4 03:41:45 4589 morphine medicatio n Not available Not available Not available 07/07/2023 7052 RxNorm Natalie Whipple MD [address] [place] [address],[address], [place], [phone], [employer] 4 15:03:14 4590 Iodinated contrast media (substanc e) medicatio n Not available Not available Not available 07/07/2023 86057 2003 SNOMED Natalie Whipple MD [address] [place] [address],[address], [place], [address], [employer] 4 15:03:26 Medications Name Sig Start Date [...] tablet TAKE 1 TABLET BY MOUTH EVERY 12 HOURS active Not Available Not Available No t Available clonidine HCl 0.1 mg tablet TAKE [...] Not Available Not Available No t Available lactated Ringers intravenous solution Inject 500 mL by intravenous route. 2024 active Not Available Not Available Not Avai lable warfarin 2.5 mg tablet TAKE 1 TO 2 TABLETS BY MOUTH EVERY DAY active Not Available Not Available No t Available Nicotrol 10 mg inhalation cartridge INHALE UP TO 16 TIMES PER DAY NEEDED FOR 14 DAYS active Not Available Not Available No t Available triamcinolon e acetonide 0.1 % topical cream APPLY A THIN LAYER TO AREA OF ARM RASH ONCE DAILY FOR 7 DAYS active Not Available Not Available N ot Available lamotrigine 25 mg tablet TAKE 1 [...] active Not Available Not Available Not Available Cymbalta 30 mg capsule,ivonne yed release TAKE 3 CAPSULES BY MOUTH DAILY active Not Available Not Available Not Available BD Ultra-Fine Short Pen Needle 31 gauge x 5/16 USE DIRECTED TO INJECT INSULIN SUBCUTANEOU SLY ONCE DAILY active Not Available Not Available No t Available ondansetron HCl (PF) 4 mg/2 mL injection solution Take 4 mg by injection route. 2024 active Not Available Not Available Not Avai lable FreeStyle Lite Meter kit USE DIRECTED TO [...] Available N ot Available Vitals Date Recorded Body temperature Respiratory rate Oxygen saturation Oxygen saturation in Arterial blood by Pulse oximetry Heart rate Systolic And Diastolic Provider Name and Address Organization Details Last Updated DateTime 4 97.9 [degF] 16 /min 97 % 97 % 73 /min 144/80 mm[Hg] Not Available [facility] [employer] 4 11:45:28 Date Recorded Oxygen saturation Oxygen saturation in Arterial blood by Pulse oximetry Heart rate Body temperature Respiratory rate Systolic And Diastolic Provider Name and Address Organization Details Last Updated DateTime 5 97 % 97 % 89 /min 97.6 [degF] 16 /min 140/64 mm[Hg] Not Available [employer] 5 16:01:31 Date Recorded Body temperature Heart rate Respiratory rate Oxygen saturation Oxygen saturation in Arterial blood by Pulse oximetry Systolic And Diastolic Provider Name and Address Organization Details Last Updated DateTime 4 97.7 [degF] 65 /min 18 /min 97 % 97 % 138/64 mm[Hg] Not Available [employer] 4 12:03:25 Date Recorded Body temperature Heart rate Oxygen saturation Oxygen saturation in Arterial blood by Pulse oximetry Respiratory rate Systolic And Diastolic Provider Name and Address Organization Details Last Updated DateTime 5 98.3 [degF] 94 /min 98 % 98 % 18 /min 158/80 mm[Hg] Not Available [employer] 5 16:49:15 Date Recorded Body temperature Oxygen saturation Oxygen saturation in Arterial blood by Pulse oximetry Heart rate Respiratory rate Systolic And Diastolic Provider Name and Address Organization Details Last Updated DateTime 4 98 [degF] 97 % 97 % 87 /min 16 /min 133/78 mm[Hg] Not Available [employer] 4 14:12:35 Social History None recorded. Functional Status None recorded. Mental Status None recorded. Family History Nothing Reported. Medical History No medical history recorded. Gynecological HistoryNo gynecological history recorded. Obstetrics History GPAL:G 0 P 0 0 0 0 Past Encounters Encounter ID Performer Location Encounter Start Date Encounter Closed Date Diagnosis/Indication Diagnosis SNOMED-CT Code Diagnosis ICD10 Code Diagnosis Note [id number] Dante Brown MD [address] [id number] 02/04/2022 17:39:01 02/04/2022 17:44:57 [id number] Ana Luisa Fair MD [address] [id number] 02/13/2022 11:18:20 02/13/2022 11:46:05 [id number] Dante Brown MD [address] [address] 04/20/2022 16:19:49 04/22/2022 11:04:34 Viral upper respiratory tract infection [id number] J06.9 This 61-year-ol d female called [facility] with symptoms of a URI. Her COVID-19 and flu screens were negative and she did not appear to be acutely ill. I recommende d symptomati c treatment and she will follow-up with her PCP if her symptoms persist. The patient agreed with this plan. [id number] Jah Vasquez MD [address] [id number] 05/19/2022 15:42:35 05/21/2022 10:52:46 COVID-19 [id number] U07.1 [id number] Nidia Morales MD [address] [address] 05/27/2022 14:04:20 05/29/2022 10:25:07 Pneumonia [id number] J18.9 61yo PMHx ?seizure activity, HTN, CKD, [...] assessment and plan as documented by the web marketing manager. I provided real time medical direction for this encounter and was immediatel y available to provide additional phone based assistance as needed. [id number] David Guerrero MD Main - [facility] [address] [place] [phone] 05/14/2023 15:50:47 05/18/2023 12:06:52 Cough [id number] R05.9 Natalie Whipple MD Main - [facility] [address] [place] [id number] 07/07/2023 15:01:51 07/08/2023 09:28:47 Acute low back pain [id number] M54.50 On top of chronic advised needs [...] her best interest History of rectal bleeding [id number] 1756986 Z87.19 We do not have the ability to do stool guaiac and although her H&H is currently stable I am concerned with her taking ibuprofen while on Coumadin-a dvised needs workup for GI bleeding. [id number] Ana Luisa Fair MD Main - [facility] [address] [place] [id number] 08/03/2023 11:25:58 08/03/2023 20:10:35 Acute exacerbation of chronic obstructive pulmonary disease [id number] J44.1 [id number] Natalie Whipple MD Main - [facility] [address] [place] [id number] 09/16/2023 11:10:45 09/19/2023 12:06:57 Dizziness [id number] R42 Prolonged postictal symptoms / cannot r/o new CVA vs bleed given unsteadine ss, increased right hemiparesi s and patient is a large fall risk- advised patient need for emergent CT brain-hypo glycemia is not the issue here. Explained to patient the need for emergent evaluation and she agreed. Report called [place] [facility] [place] [id number] Josefina Irizarry MD Main - [facility] [address] [place] [phone] 11/30/2023 14:12:32 11/30/2023 18:23:22 Abdominal pain [id number] R10.9 63 year old female with iron [...] assessment and plan as documented by the web marketing manager. I provided real-time medical direction for this encounter and was immediatel y available to provide additional phone-base d assistance as needed. We discussed the diagnostic uncertaint y of home visits and associated risks. We discussed the need to seek care urgently/e mergently in the setting of any new or worsening symptoms. [id number] David Guerrero MD Main - [facility] [address] [place] [id number] 08/17/2024 16:01:29 08/17/2024 19:17:31 Contusion of right rib [id number] 7101 S20.211A [id number] Natalya Ayala MD [facility] [address] [place] [id number] 10/25/2024 16:49:12 10/25/2024 21:09:19 Acute abdominal pain 074674901 R10.9 Mild dehydration 1045536 119 108 E86.0 Health Concerns Section Related Observation LastModified by Organization Detai ls LastModified Time None Recorded Concern Status LastModified by Organization Details LastModified Time None Recorded Advance Directives Directive None Recorded Payers Insurance Date Sequence Insurance Name Policy Number Policy Gorman Covered Member ID Gorman Member ID Guarantor Name 09/16/2023 1 [employer] - DOS PRIOR TO 2022 - DUAL ELIGIBLE (MEDICARE REPLACEMENT/AD VANTAGE - HMO) Jennifer Schulz [id number] Jennifer Schulz 10/25/2024 1 [employer] - DOS ON OR AFTER 2022 - DUAL ELIGIBLE - [employer] OPTIONS AND ONE CARE (MEDICARE REPLACEMENT/AD VANTAGE - HMO) Jennifer Schulz [id number] Jennifer Schulz Notes Date Note Type Note Provider Name and Address Organization Details Recorded Time 08/03/2023 text/html HPI: Patient reports a bad dry cough x 1 week with SOB and wheezing. Did 2-3 neb treatments yesterday with no relief. Today she woke up with bloody/green mucus in her throat and from her nose. Ears and nose feel clogged, has sore throat. Taking loratadine without benefit. JACKERMAN recently sick with similar symptoms- at first told she had pneumonia and then told she didn't. COVID negative. Feels like symptoms overall getting worse. ...................... ...................... ...................... ...................... ...................... ...................... ......... [facility] Nurse Triage Notes (Maile Hardy): Comments: HPI reviewed. ...................... ...................... ...................... ...................... ...................... ...................... ......... Equipment Operat0R Note From Vinnie Ashby: Dispatched to the [...] Disposition: Fulfilled Ana Luisa Fair MD [address] [facility],[address], [place], [address], NAZANIN HARTMAN 08/03/2023 13:27:24 09/16/2023 text/html HPI: 62 yo [...] today. She refuses the ER. I emailed [facility], they do not draw INRs. I told her she needs to reach out to her INR team and I will send [facility] for a neruo assessment and IVF. ...................... ...................... ...................... ...................... ...................... ...................... ......... [facility] Nurse Triage Notes (Maile Hardy): Comments: HPI reviewed. Equipment Operat0R POC Test Results from Enzo Ortiz [facility] Blood Glucose Measurement (1) [12:03] Blood Glucose: 258 mg/dL ...................... ...................... ...................... ...................... ...................... ...................... ......... Equipment Operat0R Note From Enzo Ortiz: Dispatched to above [...] warm and dry. Patients BGL checked, 158mg/dl. [facility] contacted, spoke with Dr. Whipple, advised of patient complaints and exam findings. [facility] advised immediate transport to ER for further evaluation of possible CVA. Patient initially refused but after speaking with Dr. Whipple agreed. 911 called. [facility] responded. [facility] web marketing manager given verbal report. Equipment Operat0R took over patient care, transport to [facility]. SC8 clear. EOR. ...................... ...................... ...................... ...................... ...................... ...................... ......... Disposition: Fulfilled Natalie Whipple MD [address] [facility],[address], [place], [address], Dhingana 09/17/2023 13:03:36 11/30/2023 text/html HPI: Patient calls PCP today to state last she had an allergic reaction to her Iron infusion at [facility]. She tells me Alecia CARTER (her kidney provider-ordering provider for the iron) is aware that this happened. She now needs to get her iron infusions at [facility], not [facility], because the kidney care staff told her they are switching service providers to [facility]. She got a bag of iron at [facility] when she typically gets a 10 min push at [facility]. She was instructed to take her [...] ...................... ...................... ...................... ...................... ...................... ...................... ......... Equipment Operat0R Note From Cas Robledo: Pt reports while [...] tender in the ULQ. No LE edema. C contacted and pt advised to wait until to see the PCP. Pt instructed to seek emergent medical care for new or worsening sx, such as fever, not passing gas or stool or n/v. ...................... ...................... ...................... ...................... ...................... ...................... ......... Disposition: Fulfilled Josefina Irizarry MD [address] [facility],[address], [place], [address], Dhingana 11/30/2023 15:28:40 08/17/2024 text/html This was a super vised home visit with web marketing manager Enzo Ortiz. HPI: 63-year-old woman with type [...] 2, Stroke PMH Reviewed at 08/17/2024 - 14:05 Allergies Reviewed at 08/17/2024 - 14:05 Comments: Reviewed HPI, will place referral for pain evaluation/treat as indicated. Radha SHAY ...................... ...................... ...................... ...................... ...................... ...................... ......... Equipment Operat0R Note From Enzo Ortiz: Dispatched to above [...] radial pulse, skin pink warm and dry. [facility] contacted, spoke with Dr. Guerrero, advised of patient complaints and exam findings. [facility] orders 30mg Toradol given IM, will prescribe Lidocaine patches. Patient administered 30mg Toradol IM. Patient advised of red flags home care and need for follow up. Patient agrees with this plan, will follow up with PCP tomorrow after x-ray. Patient has no additional questions or concerns at this time. SC8 clear. EOR. [facility] Medication Orders: ketorolac 60 mg/2 mL intramuscular solution: Administered ...................... ...................... ...................... ...................... ...................... ...................... ......... [facility] Consulted: aDvid Guerrero ...................... ...................... ...................... ...................... ...................... ...................... ......... Disposition: Fulfilled David Guerrero MD [address] [place] [address],[address], [place], [phone], Dhingana 08/17/2024 18:11:36 10/25/2024 text/html HPI: 63 y/o femalePatient called to PCP with reports of vomiting over the last 12 hours. Patient reports headache. Patient states that she is unable to eat due to nausea. ...................... ...................... ...................... ...................... ...................... ...................... ......... [facility] Nurse Triage Notes (Maile Hardy): Chief Complaints: Headache, Nausea / Vomiting PMH: Hypertension, Congestive Heart Failure, COPD/Asthma, Diabetes Mellitus Type 2, Stroke PMH Reviewed at 10/25/2024 - 13:16 Allergies Reviewed at 10/25/2024 - 13:16 Comments: HPI reviewed.[facility] HPI: 3d abdominal discomfort and today a few episodes of vomiting. a little diarrhea. no fever. no melena or hematochezia, or hematemesis. reports drinking Equipment Operat0R Organization Information for [employer] Name: [employer]. Address: [address] [place] [id number], Triage Registered Nurse: Noel Castano MD CLIA No.: [id number] Equipment Operat0R POC Test Results from [facility] - ALS Rapid COVID antigen (17:14:29) COVID: - Attachments uploaded as part of this test result can be found under Documents section. Rapid influenza antigen (17:14:30) Flu: - Attachments uploaded as part of this test result can be found under Documents section. iSTAT Chem8+ (17:14:33) Na: 138 mEq/L K: 4.1 mEq/L Cl: 103 mEq/L iCa: 1.10 mmol/L TCO2: 24 mmol/L Glu: 213 mg/dL BUN: 17 mg/dL Crea: 1.0 mg/dL Hct: 35 % Hb: 11.9 g/dL A mmol/L Cartridge Number: --- Attachments uploaded as part of this test result can be found under Documents section. ...................... ...................... ...................... ...................... ...................... ...................... ......... Equipment Operat0R Note From [facility]: SC12 dispatched to the address listed above for the report of a female green party with nausea/vomiting. Arrival on scene, patient was found inside apartment seated in chair, alert and oriented x4, patent airway, breathing non labored speaking in complete sentences, skin WPD in no obvious distress. +/= Chest rise. -SOB, -CP, +NVD, -Trauma, -Fever. GCS 15. Abdomen soft, tender to all quadrants on palpation, increased distention reported. Patient reports that she has been experiencing generalized abdominal pain with increased distention from baseline over the past 3 days, reports she has been having nausea/vomiting/diarrh ea since this morning, reports no bloody or black vomit/stool. Patient reports she feels dehydrated and has been unable to keep any food/fluids down. Patients reports she has not taken any OTC medications for symptoms management. Patient vital signs obtained as noted. [facility] consulted, provided orders for COVID/FLU POC tests, BMP, 500ml Normal Saline, 4mg Zofran IV, and UA/culture. 20 gauge IV established in right AC with blood draw for POC BMP, IV flushed with 10ml normal saline with no redness or swelling, IV secured via saline lock. 500ml NS IV administered throughout patient care without incident. 4mg Zofran IVP administered without incident, six patient rights verified prior. COVID/FLU POC tests performed and negative for all. ISTAT BMP performed as noted and uploaded to [employer]. Patient advised that she could not provide a urine sample after fluids were administered, C advised to disregard UA/Culture. Patient reports improvement in symptoms with treatments listed above. IV was removed at end of visit, bandaged with gauze and bleeding controlled. Red flags discussed with patient, advised to call 911 if she experiences any life threatening symptoms. SC12 Clear. [facility] Lab Orders: culture, urine: Not Performed Comment: Patient unable to provide urine urinalysis, dipstick: Not Performed Comment: Patient unable to provide urine respiratory pathogens DNA + RNA panel, DONOVAN+probe, nasopharynx: Performed BMP, serum or plasma: Performed ...................... ...................... ...................... ...................... ...................... ...................... ......... [facility] Consulted: Natalya Ayala ...................... ...................... ...................... ...................... ...................... ...................... ......... Disposition: Fulfilled Natalya Ayala MD [address] [place] [address],[address], [place], [address], APARNA - NAZANIN BAUER 10/25/2024 18:55:25 OBGyn Episode No OBEpisode recorded.
== END 2024-11-22 09:32 | disposition home or self-care (01) ==
LOC: HO.ACS 09:14
PROVIDERS: PCP Internal Medicine; Visit Provider Internal Medicine Medical Oncology
DX: Z79.01 Long term (current) use of anticoagulants (principal)

== ENCOUNTER → 2024-11-22 09:14 | Outpatient (BNVA) | payer OTHER, SELFPAY | PROVIDERS: PCP Internal Medicine; Visit Provider Internal Medicine Medical Oncology | DX: Z79.01 Long term (current) use of anticoagulants (principal) | CPT/HCPCS: 85610; 99211 ==

== ENCOUNTER 2024-11-29 09:13 | Outpatient (AMB) | payer OTHER, SELFPAY ==
--- OUTSIDE RECORDS SUMMARY | 2024-11-29 09:33 | XMS_ITS | Encounter Summary ---
Author Organization [facility] Address [id number] [place] [id number] Care Team Providers Care Supervisor [employer] Name Role Phone Sahra Son MD Primary Care Provider + Reason for Visit * Reason Onset Date Comments appointment 11/15/2024 Encounter Details Date Type Department Care Team (Late st Contact Info) Description 11/15/2024 Telephone Gastroenterology - [place] [address] [place] [address] Jc Guerrier MD [address] [facility] [address] [place], [place] [id number] appointment Social History Tobacco Use Types Packs/Day [...] 11/15/2024 1:32 PM EDT Records received from [facility] Primary Care for rectocele, abdominal distension, fatty liver, chronic pancreatitis. LVM to schedule appointment. Records scanned - [place] documented in this encounter Plan of Treatment Upcoming Encounters Date Type Department Care Team (Late st Contact Info) Description 02/08/2025 9:10 AM EDT Consult Gastroenterology - [place] [address] [place] [address] Deloris Vickers PA [address] [place] [address] documented as of this encounter Visit Diagnoses Not on filedocumented in this encounter Care Teams Supervisor [employer] Relationship Specialty Start Date End Date Sahra Son MD [address] [place] [address] [address] [place] [address] PCP - General Internal Medicine 11/15/24 documented as of this encounter
--- OUTSIDE RECORDS SUMMARY | 2024-11-29 09:33 | XMS_ITS | Data Portability ---
Author Organization [employer] [facility] Address [address] [place] [address] Care Team Providers Care Process Helper Name Role Phone HIM CCA OTHER Assessment Encounter Date Assessment Date Assessment LastModified by Organization Details LastModified Time 09/16/2023 09/16/2023 I provided real -time medical direction via phone for this encounter, and was available for additional phone based assistance as needed. I have reviewed and agree with the Assessment and Plan as documented by the Feather Separator. We discussed the diagnostic uncertainty of home visits and the risk associated with this The patient given the opportunity to ask questions. Call placed to [facility] ER expect line [email or web address] Not available 09/16/2023 11:20:43 08/17/2024 08/17/2024 I have reviewed and agree with the assessment and plan as documented by the pig casting machine operator. I provided real time medical direction for this encounter and was immediately available to provide additional phone based assistance as needed. History as noted by pig casting machine operator. Pt with history of type 2 diabetes [...] in the field was performed by my pig casting machine operator colleague, as noted above, I provided real-time [...] None recorded. Lab culture, urine 2024 025 [place] [id number] [facility] (Centralized Electronic Ordering - All Locations), Patient Can Go To The Location Of Their Choice, [facility] 5 08:25:21 urinalysis, dipstick 2024 025 [facility], [address] [place] [address], [id number] 5 20:21:31 respiratory pathogens DNA + RNA panel, DONOVAN+probe, nasopharynx 2024 025 [place] [address] [facility] (Centralized Electronic Ordering - All Locations), Patient Can Go To The Location Of Their Choice, [id number] 5 18:18:02 BMP, serum or plasma 2024 025 [facility], [address] [place] [address], [id number] 5 20:21:31 glucose, fingerstick , blood 2023 024 [email or web address] [facility], [address] [place] [address], [id number] 4 11:21:41 Referral None recorded. Procedures None recorded. Surgeries None recorded. Imaging None recorded. Medication Orders lactated Ringers intravenous solution 2024 025 [id number], [address], [place], [id number], 16:57:07 ondansetron HCl (PF) 4 mg/2 mL injection solution 2024 025 [facility] #[id number], [address], [place], [id number], 5 16:57:04 ketorolac 60 mg/2 mL intramuscul ar solution 2024 025 amanda [facility] #[id number], [address], [place], [id number], 5 16:08:53 lidocaine 4 % topical patch 2024 025 JEANNE [facility] #[id number], [address], [place], [id number], 5 16:08:59 Patient TargetsNo targets recorded. Patient InstructionsNo instructions recorded. Reason for Referral None Reported. Results Created Date Observation Date Name Description Value Unit Range Abnormal Flag Note LastModifiedBy Organization Detail LastModifiedTime 09/16/19 24 09/16/2023 gluco se, finge rstic k, blood Blood Glucose: mg/dl 215 Not Available [facility] [address] [place] [address], [phone] 09/16/2023 11:21:03 Result Notes None recorded. Medical [...] Not available Not available Not available 05/27/2022 [id number] CHARLEYK Nidia Morales MD [address] [place] [address],[address], [place], [address], [employer] 3 14:08:14 1749 Product containin g penicilli n (product) medicatio n Not available Not available Not available 05/27/2022 30532 8001 SNOMED Not Available [facility] - production 4 03:41:45 4589 morphine medicatio n Not available Not available Not available 07/07/2023 7052 RxNorm Natalie Whippel MD [address] [place] [address],[address], [place], [address], [employer] 4 15:03:14 4590 Iodinated contrast media (substanc e) medicatio n Not available Not available Not available 07/07/2023 78158 2003 SNOMED Natalie Whipple MD [address] [facility],[address], [place], [address] , [facility] 4 15:03:26 Medications Name Sig Start Date [...] [degF] 16 /min 140/64 mm[Hg] Not Available [employer] 5 16:01:31 Date Recorded Body temperature Heart rate Respiratory rate Oxygen saturation Oxygen saturation in Arterial blood by Pulse oximetry Systolic And Diastolic Provider Name and Address Organization Details Last Updated DateTime 4 97.7 [degF] 65 /min 18 /min 97 % 97 % 138/64 mm[Hg] Not Available [employer] 4 12:03:25 Date Recorded Body temperature Heart rate Oxygen saturation Oxygen saturation in Arterial blood by Pulse oximetry Respiratory rate Systolic And Diastolic Provider Name and Address Organization Details Last Updated DateTime 5 98.3 [degF] 94 /min 98 % 98 % 18 /min 158/80 mm[Hg] Not Available [employer] 5 16:49:15 Date Recorded Oxygen saturation Oxygen saturation in Arterial blood by Pulse oximetry Heart rate Body weight Body temperature Respiratory rate Body height Systolic And Diastolic Provider Name and Address Organization Details Last Updated DateTime 5 96 % 96 % 90 /min 35681.4 g 98 [degF] 14 /min 167.64 cm 148/92 mm[Hg] Not Available [employer] 5 14:19:37 Date Recorded Body temperature Oxygen saturation Oxygen saturation in Arterial blood by Pulse oximetry Heart rate Respiratory rate Systolic And Diastolic Provider Name and Address Organization Details Last Updated DateTime 4 98 [degF] 97 % 97 % 87 /min 16 /min 133/78 mm[Hg] Not Available [facility] 4 14:12:35 Social History None recorded. Functional Status None recorded. Mental Status None recorded. Family History Nothing Reported. Medical History No medical history recorded. Gynecological HistoryNo gynecological history recorded. Obstetrics History GPAL:G 0 P 0 0 0 0 Past Encounters Encounter ID Performer Location Encounter Start Date Encounter Closed Date Diagnosis/Indication Diagnosis SNOMED-CT Code Diagnosis ICD10 Code Diagnosis Note [id number] [facility] [address] [place] [id number] 02/04/2022 17:39:01 02/04/2022 17:44:57 [id number] Ana Luisa Fair MD [facility] [address] [place] [id number] 02/13/2022 11:18:20 02/13/2022 11:46:05 [id number] Dante Brown [facility] [address] [place] [phone] 04/20/2022 16:19:49 04/22/2022 11:04:34 Viral upper respiratory tract infection 039202023 J06.9 This 61-year-ol d female called [facility] with symptoms of a URI. Her COVID-19 and flu screens were negative and she did not appear to be acutely ill. I recommende d symptomati c treatment and she will follow-up with her PCP if her symptoms persist. The patient agreed with this plan. [id number] Jah Vasquez [facility] [address] [place] [id number] 05/19/2022 15:42:35 05/21/2022 10:52:46 COVID-19 [id number] U07.1 [id number] Nidia Morales MD [facility] - [address] [phone] 05/27/2022 14:04:20 05/29/2022 10:25:07 Pneumonia 732920003 J18.9 61yo PMHx ?seizure activity, HTN, CKD, [...] assessment and plan as documented by the pig casting machine operator. I provided real time medical direction for this encounter and was immediatel y available to provide additional phone based assistance as needed. [id number] David Guerrero MD Main - [facility] [address] [place] [id number] 05/14/2023 15:50:47 05/18/2023 12:06:52 Cough [id number] R05.9 [id number] Natalie Whipple MD Main - [facility] [address] [place] [id number] 07/07/2023 15:01:51 07/08/2023 09:28:47 Acute low back pain 625157378 M54.50 On top of chronic advised needs [...] her best interest History of rectal bleeding [id number] 2918776 Z87.19 We do not have the ability to do stool guaiac and although her H&H is currently stable I am concerned with her taking ibuprofen while on Coumadin-a dvised needs workup for GI bleeding. [id number] Ana Luisa Fair MD Main - [facility] [address] [place] [id number] 08/03/2023 11:25:58 08/03/2023 20:10:35 Acute exacerbation of chronic obstructive pulmonary disease [id number] J44.1 [id number] Natalie Whipple MD Main - [facility] [address] [place] [id number] 09/16/2023 11:10:45 09/19/2023 12:06:57 Dizziness 715887096 R42 Prolonged postictal symptoms / cannot r/o new CVA vs bleed given unsteadine ss, increased right hemiparesi s and patient is a large fall risk- advised patient need for emergent CT brain-hypo glycemia is not the issue here. Explained to patient the need for emergent evaluation and she agreed. Report called to [facility] [place] [id number] Josefina Irizarry MD Main - [address] [phone] 11/30/2023 14:12:32 11/30/2023 18:23:22 Abdominal pain 56913464 R10.9 63 year old female with iron [...] assessment and plan as documented by the pig casting machine operator. I provided real-time medical direction for this encounter and was immediatel y available to provide additional phone-base d assistance as needed. We discussed the diagnostic uncertaint y of home visits and associated risks. We discussed the need to seek care urgently/e mergently in the setting of any new or worsening symptoms. [id number] David Guerrero MD Main - [facility] [address] [place] [id number] 08/17/2024 16:01:29 08/17/2024 19:17:31 Contusion of right rib [id number] 7101 S20.211A [id number] Natalya Ayala MD [address] [phone] 10/25/2024 16:49:12 10/25/2024 21:09:19 Acute abdominal pain 032745374 R10.9 Mild dehydration 5426826 119 108 E86.0 [id number] Nidia Morales MD [address] [phone] 11/22/2024 14:19:34 11/22/2024 22:11:44 Rib pain 519307786 R07.81 Evaluation in the field was performed by my pig casting machine operator colleague, as noted above, I provided real-time direction and supervisio n for this visit.This is a 64yo F with PMHx T2DM complicate d by CKD and hyperglyce liane, pancreatic insufficie ncy, HTN, anemia, hyperlipid emia, obesity, memory impairment , previous CVA, stented carotid aneurysm, 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 No deformity. Took APAP x1 without improvemen t. VS: baselinePa ramedic exam: no bruise or deformity, mild TTP at sitePOC testing: none Impression : MSK pain 2/2 minor trauma, low suspicion for pulmonary etiologyPl an: Pt requests toradol however given on therapeuti c anticoagul ation not recommende d based on risk/benef it. I attempted to engage pt in discussion of alternativ es however she was dissatisfi ed that we would not provide it today and declines further discussion Red flags reviewed, pt expressed understand ing For PCP: discuss future pain mgmt options We discussed the diagnostic uncertaint y of home visits and the risk associated with this. In this case, the patient and I felt this to be an acceptable and reasonable amount of risk given the benefit of avoiding an ED visit. We discussed the need to seek care urgently/e mergently in the setting of any new or worsening serious symptoms, shortness of breath, cough, chest pain, fever. Health Concerns Section Related Observation LastModified by Organization Detai ls LastModified Time None Recorded Concern Status LastModified by Organization Details LastModified Time None Recorded Advance Directives Directive None Recorded Payers Insurance Date Sequence Insurance Name Policy Number Policy Gorman Covered Member ID Gorman Member ID Guarantor Name 09/16/2023 1 [facility] - DOS PRIOR TO 2022 - DUAL ELIGIBLE (MEDICARE REPLACEMENT/AD VANTAGE - HMO) Jennifer Schulz [id number] Jennifer Schulz 11/22/2024 1 [facility] - DOS ON OR AFTER 2022 - DUAL ELIGIBLE - HALF-WAY OPTIONS AND ONE CARE (MEDICARE REPLACEMENT/AD VANTAGE - HMO) Jennifer Schulz [id number] Jennifer Schulz Notes Date Note Type Note Provider Name and Address Organization Details Recorded Time 09/16/2023 text/html HPI: 62 yo female w [...] her INR team and [facility] and IVF. ...................... ...................... ...................... ...................... ...................... ...................... ......... [facility] Nurse Triage Notes (Maile Hardy): Comments: HPI reviewed. Feather Separator POC Test Results from Enzo Ortiz - [facility] Blood Glucose Measurement (1) [12:03] Blood Glucose: 258 mg/dL ...................... ...................... ...................... ...................... ...................... ...................... ......... Feather Separator Note From Enzo Ortiz: Dispatched to above [...] warm and dry. Patients BGL checked, 158mg/dl. [facility] contacted, spoke with Dr. Whipple, advised of patient complaints and exam findings. [facility] advised immediate transport to ER for further evaluation of possible CVA. Patient initially refused but after speaking with Dr. Whipple agreed. 911 called. [facility] responded. [facility] pig casting machine operator given verbal report. Feather Separator took over patient care, transport to [facility]. SC8 clear. EOR. ...................... ...................... ...................... ...................... ...................... ...................... ......... Disposition: Fulfilled Natalie Whipple MD [address] [facility],[address], [place], [address], [employer] 09/17/2023 13:03:36 11/30/2023 text/html HPI: Patient calls PCP today to state last she had an allergic reaction to her Iron infusion at [facility]. She tells me Alecia CARTER (her kidney provider-ordering provider for the iron) is aware that this happened. She now needs to get her iron infusions at [facility], not [facility], because the kidney care staff told her they are switching service providers to [facility]. She got a bag of iron at [facility] when she typically gets a 10 min push at [facility]. She was instructed to take her [...] SOB and abdominal swelling. Patient declined. Sending EpiGaN per Dr Son for follow up vitals/ assessment. Visit scheduled for this . ...................... ...................... ...................... ...................... ...................... ...................... ......... [facility] Nurse Triage Notes (Maile Hardy): Comments: HPI reviewed. No further information needed to process visit. ...................... ...................... ...................... ...................... ...................... ...................... ......... Feather Separator Note From Cas Robledo: Pt reports while [...] tender in the ULQ. No LE edema. [facility] contacted and pt advised to wait until to see the PCP. Pt instructed to seek emergent medical care for new or worsening sx, such as fever, not passing gas or stool or n/v. ...................... ...................... ...................... ...................... ...................... ...................... ......... Disposition: Fulfilled Josefina Irizarry MD [address] [facility],[address], [place], [address], [employer] 11/30/2023 15:28:40 08/17/2024 text/html This was a super vised home visit with pig casting machine operator Enzo Ortiz. HPI: 63-year-old woman with type [...] to her xrays until tomorrow morning, sending [facility] for a toradol inj for pain management ...................... ...................... ...................... ...................... ...................... ...................... ......... [facility] Nurse Triage Notes (Larsisa Davila): Reason For Request: Rib pain Chief Complaints: Abdominal Pain PMH: Hypertension, Congestive Heart Failure, COPD/Asthma, Diabetes Mellitus Type 2, Stroke PMH Reviewed at 08/17/2024 - : Allergies Reviewed at 08/17/2024 - : Comments: Reviewed HPI, will place referral for pain evaluation/treat as indicated. HPajavier SHAY ...................... ...................... ...................... ...................... ...................... ...................... ......... Feather Separator Note From Enzo Ortiz: Dispatched to above [...] radial pulse, skin pink warm and dry. [facility] contacted, spoke with Dr. Guerrero, advised of patient complaints and exam findings. [facility] orders 30mg Toradol given IM, will prescribe Lidocaine patches. Patient administered 30mg Toradol IM. Patient advised of red flags home care and need for follow up. Patient agrees with this plan, will follow up with PCP tomorrow after x-ray. Patient has no additional questions or concerns at this time. MA8 clear. EOR. [facility] Medication Orders: ketorolac 60 mg/2 mL intramuscular solution: Administered ...................... ...................... ...................... ...................... ...................... ...................... ......... [facility] Consulted: David Guerrero ...................... ...................... ...................... ...................... ...................... ...................... ......... Disposition: Fulfilled David Guerrero MD [address] [place] [address],[facility], [place], [address], [employer] 08/17/2024 18:11:36 10/25/2024 text/html HPI: 63 y/o femalePatient called to PCP with reports of vomiting over the last 12 hours. Patient reports headache. Patient states that she is unable to eat due to nausea. ...................... ...................... ...................... ...................... ...................... ...................... ......... [facility] Nurse Triage Notes (Maile Hardy): Chief Complaints: Headache, Nausea / Vomiting PMH: Hypertension, Congestive Heart Failure, COPD/Asthma, Diabetes Mellitus Type 2, Stroke PMH Reviewed at 10/25/2024:16 Allergies Reviewed at 10/25/2024:16 Comments: HPI reviewed.[facility] HPI: 3d abdominal discomfort and today a few episodes of vomiting. a little diarrhea. no fever. no melena or hematochezia, or hematemesis. reports drinking Feather Separator Organization Information for [employer] Name: [employer]. Address: [address] [place] [address], Utility System Repairer: Noel Castano MD CLIA No.: [id number] Feather Separator POC Test Results from [employer] [facility] Rapid COVID antigen (17:14:29) COVID: - Attachments [...] ...................... ...................... ...................... ...................... ...................... ...................... ......... Feather Separator Note From Kendrick Yakov: SC12 dispatched to the address listed above for the report of a female libertarian with nausea/vomiting. Arrival on scene, patient was [...] management. Patient vital signs obtained as noted. [facility] consulted, provided orders for COVID/FLU POC tests, [...] BMP performed as noted [facility] Patient advised that she could not provide a urine sample after fluids were administered, [facility] advised to disregard UA/Culture. Patient reports improvement in symptoms with treatments listed above. IV was removed at end of visit, bandaged with gauze and bleeding controlled. Red flags discussed with patient, advised to call 911 if she experiences any life threatening symptoms. SC12 Clear. [facility] Lab Orders: culture, urine: Not Performed Comment: Patient unable to provide urine urinalysis, dipstick: Not Performed Comment: Patient unable to provide urine respiratory pathogens DNA + RNA panel, DONOVAN+probe, nasopharynx: Performed BMP, serum or plasma: Performed ...................... ...................... ...................... ...................... ...................... ...................... ......... [facility] Consulted: Natalya Ayala ...................... ...................... ...................... ...................... ...................... ...................... ......... Disposition: Fulfilled Natalya Ayala MD [address] [place] [address],[address] [facility], [place], [phone], [employer] 10/25/2024 18:55:25 11/22/2024 text/html HPI: 64 y/o femalePatient called to report a reoccurrence of pain located on right breast following bending forward and area making contract with her knee. Patient reports pain has been present for the last 24 hours with no symptom relief from conservative measures (ice/Tylenol). Patient received Toradol injection in August for same pain/discomfort and found relief. ...................... ...................... ...................... ...................... ...................... ...................... ......... [facility] Nurse Triage Notes (Lizz Peace): Reason For Request: abd pain Chief Complaints: Abdominal Pain PMH: Hypertension, Congestive Heart Failure, COPD/Asthma, Diabetes Mellitus Type 2, Stroke PMH Reviewed at 11/22/2024:50 Allergies Reviewed at 11/22/2024:50 Comments: HPI reviewed ...................... ...................... ...................... ...................... ...................... ...................... ......... Feather Separator Note From Donny Mckinney: Patient alert and oriented seated in chair. Patient complains of right side rib/muscle pain after bending in her chair yesterday. Patient reports similar episode in the past. Patient reports her PCP sent us to give her Toradol. Patient reports she went to clinic today, INR 1.6. Patient on warfarin. Hx of CKD. [facility] administered Toradol three months ago, pt requests same. Pt pink warm, dry secondary exam unremarkable, right side no visible findings at area of pain. Lung sounds clear negative increased work of breathing, positive full sentences, abdomen, soft, nontender, extremities unremarkable. [facility] discusses contraindications to Toradol. Supportive care alternatives mentioned, patient rejects conversation and ends visit. Patient heard to be calling PCP office. ...................... ...................... ...................... ...................... ...................... ...................... ......... [facility] Consulted: Nidia Morales ...................... ...................... ...................... ...................... ...................... ...................... ......... Disposition: Fulfilled Nidia Morales MD [address] [place] [address],[address] [facility], [place], [address], [employer] 11/22/2024 15:41:36 OBGyn Episode No OBEpisode recorded.
--- OUTSIDE RECORDS SUMMARY | 2024-11-29 09:33 | XMS_ITS | Clinical Summary ---
Author Organization [facility] Address [address] [place] [address] Care Team Providers Care Food Service Sales Representatives Name Role Phone Geovani Natalie Carmelo ESPARZA Primary Care Provider [phone] Allergies Active Allergy Reactions Criticality Noted Date [...] 1 10/04/2016 Active ergocalciferol (VITAMIN D2) capsule 72472 units TK ONE C PO TWICE A [...] times a day. 0 04/27/2022 Active pancrelipase, Iir-Kjrw-Ekbj, (Creon) [address] units CPEP TK ONE C PO TID [...] complete this topic Care Teams Food Service Sales Representatives Relationship Specialty Start Date End Date Natalie Olivo APRN [address] [place] [address] PCP - General Bit Sharpener 04/30/22
--- OUTSIDE RECORDS SUMMARY | 2024-11-29 09:33 | XMS_ITS | Encounter Summary ---
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
--- OUTSIDE RECORDS SUMMARY | 2024-11-29 09:33 | XMS_ITS | Encounter Summary ---
Author Organization [facility] Address [address] [place] [address] Care Team Providers Care Social Group Worker Name Role Phone Sahra Son MD Primary Care Provider Marko Fernandez MD Unavailable [phone] Encounter Details Date Type Department Care Team Description 09/02/2022 Telephone Pulmonology - [place] [address] [facility] [address] [place] [phone] Betty Morillo MD [address] [facility] [address] [place] [phone] Social History Tobacco Use Types Packs/Day Years [...] pcp [facility] requesting last office notes fax [phone] documented in this encounter Plan of Treatment Not on file documented as of this encounter Visit Diagnoses Not on filedocumented in this encounter Care Teams Social Group Worker Relationship Specialty Start Date End Date Sahra Son MD PCP - General Internal Medicine 08/31/22 Marko Spaulding MD Specialist Cardiology 09/23/22 documented as of this encounter
--- OUTSIDE RECORDS SUMMARY | 2024-11-29 09:33 | XMS_ITS | Encounter Summary ---
Author Organization [facility] Address [address] [facility] [address] [place] [address] Encounters * CPT with Felix Tariq at [facility] on 2024-11-22 64 y/o female Patient called to report a reoccurrence of pain located on right breast following bending forward and area making contract with her knee. Patient reports pain has been present for the last 24 hours with no symptom relief from conservative measures (ice/Tylenol). Patient received Toradol injection in August for same pain/discomfort and found relief. { reasonForRequest : abd pain , patientReports : , de nies :[], chiefComplaints : Abdominal Pain , pmh : Hypertension, Congestive Heart Failure, COPD/Asthma, Diabetes Mellitus Type 2, Stroke , allergies&q uot;: Penicillins, Codeine , otherAllergies :null, painAssessment :&qu ot; , visitOutcome : , additionalComments : HPI reviewed "} Patient alert and oriented seated in chair. Patient complains of right side rib/muscle pain after bending in her chair yesterday. Patient reports similar episode in the past. Patient reports her PCP sent us to give her Toradol. Patient reports she went to clinic today, INR 1.6. Patient on warfarin.Hx of CKD. Insted administered Toradol three months ago, pt requests same. Pt pink warm, dry secondary exam unremarkable, right side no visible findings at area of pain. Lungsounds clear negative increased work of breathing, positive full sentences, abdomen, soft, nontender, extremities unremarkable. [facility] [place] contraindications to Toradol. Supportive care alternatives mentioned, patient rejectsconversation and ends visit. Patient heard to be calling PCP office. IV_(FLUIDS_AND/OR_MEDICATION), MEDICATION_IM Written by Felix Tariq on 2024-11-22
[2024-11-29 09:37] LABS: Prothrombin Time Whole Bld POC 16.1 sec (11.1-13.5); ~PT, ~INR - Anti Coag Clinic 1.3 (0.9-1.1)
--- NOTE | 2024-11-29 09:47 | MHC.OFFVISCO ---
Intake Intake Visit Reasons: Anticoagulation Allergies codeine (Codeine) Allergy (Severe, Verified 11/29/24 09:24) DIFFICULTY BREATHING Penicillins Allergy (Severe, Verified 11/29/24 09:24) RASH penicillin V Allergy (Intermediate, Verified 11/29/24 09:24) RASH tramadol (Ultram) Allergy (Unknown, Verified 11/29/24 09:24) hallucinations Shellfish Allergy (Severe, Uncoded 11/22/24 09:17) THROAT SWELLING Contrast Allergy PreMed Pack Allergy (Unknown, Uncoded 11/22/24 09:17) TREAT WITH BENADRYL ferrlecit Adverse Reaction (Intermediate, Uncoded 11/22/24 09:17) Rash Medication List - Last Reconciled 11/29/24 by Teresa Flowers RN atorvastatin 80 mg PO DAILY blood sugar diagnostic As directed budesonide (Pulmicort) 0.25 mg inhalation BID clonidine HCl 0.1 mg PO BID duloxetine (Cymbalta) 30 mg PO DAILY duloxetine 60 mg PO QAM epoetin marj (Procrit) 2,000 units subcut 3XW hydrocortisone 2.5% appl topical ipratropium-albuterol 0.5 mg-3 mg(2.5 mg base)/3 mL mL inhalation ipratropium-albuterol 20-100 mcg/actuation 1 puff PO QID ipratropium-albuterol 20-100 mcg/actuation (Combivent Respimat) 1 puff inhalation Q4H lancets As directed lancets As directed latanoprost 0.005% drps ophthalmic (eye) linaclotide (Linzess) 145 mcg PO DAILY linagliptin (Tradjenta) 5 mg PO DAILY rellvu-srhadtsm-qafchyx 24,000-76,000 -120,000 unit (Creon) 1 cap PO TID loratadine 10 mg PO DAILY PRN lorazepam 1 mg PO BID meclizine mg PO montelukast 10 mg PO BEDTIME nifedipine ER 30 mg PO DAILY nitroglycerin 0.4 mg sublingual Q5M PRN nystatin 1 appl topical DAILY PRN ondansetron 4 mg PO Q8H PRN oxcarbazepine (Trileptal) 150 mg PO Q12H 30 days quetiapine 200 mg PO BEDTIME rabeprazole 20 mg PO DAILY ropinirole 0.25 mg PO BEDTIME sodium chloride 0.65% (Deep Sea Nasal) sprays intranasal Q2H PRN triamcinolone acetonide 0.1% appl topical warfarin 2.5 mg See Protocol PO DAILY Nursing Note PT. DENIES ANY MISSED DOSES, BUT STATES THAT SHE HAS STARTED LINZESS FOR CONSTIPATION (NO INTERACTION WITH WARFARIN) PT.DENIES ANY FURTHER RECTAL BLEEDING TODAY. INCREASE WARFARIN TO 7.5MGM 2 DAYS AND RECHECK INR ON 12/01. NO GREENS IN MEANTIME,WILL INCREASE REDS. LOW INR REPORTED TO PCP(DANTE)WITH PLAN OF CARE AND QUESTION OF LOVENOX. 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
== END 2024-11-29 10:06 | disposition home or self-care (01) ==
LOC: HO.ACS 09:13
PROVIDERS: PCP Internal Medicine; Visit Provider Internal Medicine Medical Oncology
DX: Z79.01 Long term (current) use of anticoagulants (principal)

== ENCOUNTER → 2024-11-29 09:13 | Outpatient (BNVA) | payer OTHER, SELFPAY | PROVIDERS: PCP Internal Medicine; Visit Provider Internal Medicine Medical Oncology | DX: Z86.718 Personal history of other venous thrombosis and embolism (principal); Z79.01 Long term (current) use of anticoagulants; Z51.81 Encounter for therapeutic drug level monitoring | CPT/HCPCS: 85610; 99211 ==

== ENCOUNTER 2024-12-06 08:56 | Outpatient (AMB) | payer OTHER, SELFPAY ==
[2024-12-06 09:20] LABS: Prothrombin Time Whole Bld POC 55.3 sec (11.1-13.5); ~PT, ~INR - Anti Coag Clinic 4.6 (0.9-1.1)
--- NOTE | 2024-12-06 09:20 | MHC.OFFVISCO ---
Intake Intake Visit Reasons: Anticoagulation Allergies codeine (Codeine) Allergy (Severe, Verified 12/06/24 09:12) DIFFICULTY BREATHING Penicillins Allergy (Severe, Verified 12/06/24 09:12) RASH penicillin V Allergy (Intermediate, Verified 12/06/24 09:12) RASH tramadol (Ultram) Allergy (Unknown, Verified 12/06/24 09:12) hallucinations Shellfish Allergy (Severe, Uncoded 12/06/24 09:12) THROAT SWELLING Contrast Allergy PreMed Pack Allergy (Unknown, Uncoded 12/06/24 09:12) TREAT WITH BENADRYL ferrlecit Adverse Reaction (Intermediate, Uncoded 12/06/24 09:12) Rash Medication List - Last Reconciled 12/06/24 by Barbara Lr RN atorvastatin 80 mg PO DAILY blood sugar diagnostic As directed budesonide (Pulmicort) 0.25 mg inhalation BID clonidine HCl 0.1 mg PO BID duloxetine (Cymbalta) 30 mg PO DAILY duloxetine 60 mg PO QAM epoetin marj (Procrit) 2,000 units subcut 3XW hydrocortisone 2.5% appl topical ipratropium-albuterol 0.5 mg-3 mg(2.5 mg base)/3 mL mL inhalation ipratropium-albuterol 20-100 mcg/actuation 1 puff PO QID ipratropium-albuterol 20-100 mcg/actuation (Combivent Respimat) 1 puff inhalation Q4H lancets As directed lancets As directed latanoprost 0.005% drps ophthalmic (eye) linaclotide (Linzess) 145 mcg PO DAILY linagliptin (Tradjenta) 5 mg PO DAILY cbovig-tbbsxtuk-nzpnrar 24,000-76,000 -120,000 unit (Creon) 1 cap PO TID loratadine 10 mg PO DAILY PRN lorazepam 1 mg PO BID meclizine mg PO montelukast 10 mg PO BEDTIME nifedipine ER 30 mg PO DAILY nitroglycerin 0.4 mg sublingual Q5M PRN nystatin 1 appl topical DAILY PRN ondansetron 4 mg PO Q8H PRN oxcarbazepine (Trileptal) 150 mg PO Q12H 30 days quetiapine 200 mg PO BEDTIME rabeprazole 20 mg PO DAILY ropinirole 0.25 mg PO BEDTIME sodium chloride 0.65% (Deep Sea Nasal) sprays intranasal Q2H PRN triamcinolone acetonide 0.1% appl topical warfarin 2.5 mg See Protocol PO DAILY Nursing Note INR 4.6-?? out of therapeutic range 2-3 Medications and supplements reviewed Patient status: prev inr 1.3 Medications or supplements: pt states missed trazadone x 2 days Diet: no changes Denies any signs and symptoms of bleeding or clotting or unusual bruising Bleeding, bruising, clotting discussed - aware risk of bleeding with elev inr pt states large amount rectal bleeding yesterday without straining, pt is seeing md mona guerreroooethel and will report pt with history rectal bleeding- pcp office called, spoke to prince- made aware of elev inr/dosing and f/u appt. made aware of pt c.o rectal bleeding Nutritional guidance given: eat greens to lower, food chart reviewed Dose: hold today and reduce tomm to 2.5mg F/U INR Date : hold warfarin today, reduce tomm to 2.5mg then cont reg 3.75mg x 2, 5mg x 5 Patient verbalizing understanding of instructions given. 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
--- OUTSIDE RECORDS SUMMARY | 2024-12-06 09:21 | XMS_ITS | Data Portability ---
Author Organization [employer], [facility] Address [address] [place] [address] Care Team Providers Care Career Development Consultant Name Role Phone HIM CCA OTHER Assessment Encounter Date Assessment Date Assessment LastModified by Organization Details LastModified Time 09/16/2023 09/16/2023 I provided real -time medical direction via phone for this encounter, and was available for additional phone based assistance as needed. I have reviewed and agree with the Assessment and Plan as documented by the Medical Doctor Md. We discussed the diagnostic uncertainty of home visits and the risk associated with this The patient given the opportunity to ask questions. Call placed to [facility] ER expect line [email or web address] Not available 09/16/2023 11:20:43 08/17/2024 08/17/2024 I have reviewed and agree with the assessment and plan as documented by the refrigeration systems installer. I provided real time medical direction for this encounter and was immediately available to provide additional phone based assistance as needed. History as noted by refrigeration systems installer. Pt with history of type 2 [...] in the field was performed by my refrigeration systems installer colleague, as noted above, I provided real-time [...] None recorded. Lab culture, urine 2024 025 [email or web address] [id number] [facility] (Centralized Electronic Ordering - All Locations), Patient Can Go To The Location Of Their Choice, [facility] 5 08:25:21 urinalysis, dipstick 2024 025 [facility], [address] [place] [address], [id number] 5 20:21:31 respiratory pathogens DNA + RNA panel, DONOVAN+probe, nasopharynx 2024 025 [place] [address] [facility] (Centralized Electronic Ordering - All Locations), Patient Can Go To The Location Of Their Choice, [id number] 5 18:18:02 BMP, serum or plasma 2024 025 [facility], [address] [place] [address], [id number] 5 20:21:31 glucose, fingerstick , blood 2023 024 [email or web address] [facility], [address] [place] [address], [id number] 4 11:21:41 Referral None recorded. Procedures None recorded. Surgeries None recorded. Imaging None recorded. Medication Orders lactated Ringers intravenous solution 2024 025 [id number], [address], [place], [id number], 16:57:07 ondansetron HCl (PF) 4 mg/2 mL injection solution 2024 025 [facility][id number], [address], [place], [id number], 5 16:57:04 ketorolac 60 mg/2 mL intramuscul ar solution 2024 025 amanda [facility] #[id number], [address], [place], [id number], 5 16:08:53 lidocaine 4 % topical patch 2024 025 JEANNE [facility] #[id number], [address], [place], [id number], 5 16:08:59 Patient TargetsNo targets recorded. Patient InstructionsNo instructions recorded. Reason for Referral None Reported. Results Created Date Observation Date Name Description Value Unit Range Abnormal Flag Note LastModifiedBy Organization Detail LastModifiedTime 09/16/19 24 09/16/2023 gluco se, finge rstic k, blood Blood Glucose: mg/dl 215 Not Available [facility] [address] [place] [address], [id number] 09/16/2023 11:21:03 Result Notes None recorded. Medical [...] Not available Not available Not available 05/27/2022 06989 CHARLEYK Nidia Morales MD [address] [place] [address],[address], [place], [phone], [employer] 3 14:08:14 1749 Product containin g penicilli n (product) medicatio n Not available Not available Not available 05/27/2022 94202 8001 SNOMED Not Available [facility] - production 4 03:41:45 4589 morphine medicatio n Not available Not available Not available 07/07/2023 7052 RxNorm Natalie Whipple MD [address] [place] [address],[address], [place], [address], [employer] 4 15:03:14 4590 Iodinated contrast media (substanc e) medicatio n Not available Not available Not available 07/07/2023 62120 2003 SNOMED Natalie Whipple MD [address] [facility],[address], [place], [address] , [facility] - NAZANIN BAUER 4 15:03:26 Medications Name [...] [degF] 16 /min 140/64 mm[Hg] Not Available [facility] 5 16:01:31 Date Recorded Body temperature Heart rate Respiratory rate Oxygen saturation Oxygen saturation in Arterial blood by Pulse oximetry Systolic And Diastolic Provider Name and Address Organization Details Last Updated DateTime 4 97.7 [degF] 65 /min 18 /min 97 % 97 % 138/64 mm[Hg] Not Available [facility] 4 12:03:25 Date Recorded Body temperature Heart rate Oxygen saturation Oxygen saturation in Arterial blood by Pulse oximetry Respiratory rate Systolic And Diastolic Provider Name and Address Organization Details Last Updated DateTime 5 98.3 [degF] 94 /min 98 % 98 % 18 /min 158/80 mm[Hg] Not Available [facility] 5 16:49:15 Date Recorded Oxygen saturation Oxygen saturation in Arterial blood by Pulse oximetry Heart rate Body weight Body temperature Respiratory rate Body height Systolic And Diastolic Provider Name and Address Organization Details Last Updated DateTime 5 96 % 96 % 90 /min 11101.4 g 98 [degF] 14 /min 167.64 cm 148/92 mm[Hg] Not Available [facility] 5 14:19:37 Date Recorded Body temperature Oxygen [...] Note 4123 Dante Brown [facility] [address] [place] [phone] 02/04/2022 17:39:01 02/04/2022 17:44:57 4305 Ana Luisa Fair MD [facility] [address] [place] [phone] 02/13/2022 11:18:20 02/13/2022 11:46:05 5856 Dante Brown MD [facility] [address] [place] [phone] 04/20/2022 16:19:49 04/22/2022 11:04:34 Viral upper respiratory tract infection 846113039 J06.9 This 61-year-ol d female called [facility] with symptoms of a URI. Her COVID-19 and flu screens were negative and she did not appear to be acutely ill. I recommende d symptomati c treatment and she will follow-up with her PCP if her symptoms persist. The patient agreed with this plan. 6701 Jah Vasquez MD [facility] [address] [place] [phone] 05/19/2022 15:42:35 05/21/2022 10:52:46 COVID-19 [id number] U07.1 6944 Nidia Morales MD [facility] - [address] [phone] 05/27/2022 14:04:20 05/29/2022 10:25:07 Pneumonia [id number] J18.9 61yo PMHx ?seizure activity, HTN, CKD, [...] assessment and plan as documented by the refrigeration systems installer. I provided real time medical direction for this encounter and was immediatel y available to provide additional phone based assistance as needed. [id number] David Guerrero MD Main - [facility] [address] [place] [phone] 05/14/2023 15:50:47 05/18/2023 12:06:52 Cough 73392739 R05.9 [id number] Natalie Whipple MD Main - [facility] [address] [place] [phone] 07/07/2023 15:01:51 07/08/2023 09:28:47 Acute low back pain 031685683 M54.50 On top of chronic advised needs [...] her best interest History of rectal bleeding [id number] 5480904 Z87.19 We do not have the ability to do stool guaiac and although her H&H is currently stable I am concerned with her taking ibuprofen while on Coumadin-a dvised needs workup for GI bleeding. [id number] Ana Luisa Fair MD Main - [facility] [address] [place] [phone] 08/03/2023 11:25:58 08/03/2023 20:10:35 Acute exacerbation of chronic obstructive pulmonary disease [id number] J44.1 54486 Natalie Whipple MD Main - [facility] [address] [place] [phone] 09/16/2023 11:10:45 09/19/2023 12:06:57 Dizziness 991063218 R42 Prolonged postictal symptoms / cannot r/o new CVA vs bleed given unsteadine ss, increased right hemiparesi s and patient is a large fall risk- advised patient need for emergent CT brain-hypo glycemia is not the issue here. Explained to patient the need for emergent evaluation and she agreed. [place] [facility] [place] [id number] Josefina Irizarry MD Main - [address] [phone] 11/30/2023 14:12:32 11/30/2023 18:23:22 Abdominal pain 40285029 R10.9 63 year old female with iron [...] assessment and plan as documented by the refrigeration systems installer. I provided real-time medical direction for this encounter and was immediatel y available to provide additional phone-base d assistance as needed. We discussed the diagnostic uncertaint y of home visits and associated risks. We discussed the need to seek care urgently/e mergently in the setting of any new or worsening symptoms. [id number] David Guerrero MD Main - [facility] [address] [place] [phone] 08/17/2024 16:01:29 08/17/2024 19:17:31 Contusion of right rib [id number] 7101 S20.211A [id number] Natalya Ayala MD [address] [address] 10/25/2024 16:49:12 10/25/2024 21:09:19 Acute abdominal pain 057532364 R10.9 Mild dehydration 1141752 119 108 E86.0 48851 Nidia Morales MD [address] [phone] 11/22/2024 14:19:34 11/22/2024 22:11:44 Rib pain 671129698 R07.81 Evaluation in the field was performed by my refrigeration systems installer colleague, as noted above, I provided real-time [...] Member ID Guarantor Name 09/16/2023 1 [facility] - DOS PRIOR TO 2022 - DUAL ELIGIBLE (MEDICARE REPLACEMENT/AD VANTAGE - HMO) Jennifer Schulz [id number] Jennifer Schulz 11/22/2024 1 [facility] - DOS ON OR AFTER 2022 - DUAL ELIGIBLE - PENITENTIARY OPTIONS AND ONE CARE (MEDICARE REPLACEMENT/AD VANTAGE - HMO) Jennifer Schulz [id number] Jennifer Schulz Notes Date Note Type Note Provider Name and Address Organization Details Recorded Time 09/16/2023 text/html ROS as noted in the HPI HPI: 62 yo female w pmh of [...] today. She refuses the ER. [facility]. I told her she needs to reach out to her INR team and I will [facility] neruo assessment and IVF. ...................... ...................... ...................... ...................... ...................... ...................... ......... [facility] Nurse Triage Notes (Maile Hardy): Comments: HPI reviewed. Medical Doctor Md POC Test Results from Enzo Ortiz - [facility] Blood Glucose Measurement (1) [12:03] Blood Glucose: 258 mg/dL ...................... ...................... ...................... ...................... ...................... ...................... ......... Medical Doctor Md Note From Enzo Ortiz: Dispatched to above [...] warm and dry. Patients BGL checked, 158mg/dl. [facility] contacted, spoke with Dr. Whipple, advised of patient complaints and exam findings. [facility] advised immediate transport to ER for further evaluation of possible CVA. Patient initially refused but after speaking with Dr. Whipple agreed. 911 called. [facility] responded. [facility] refrigeration systems installer given verbal report. Medical Doctor Md took over patient care, transport to [facility]. SC8 clear. EOR. ...................... ...................... ...................... ...................... ...................... ...................... ......... Disposition: Fulfilled Natalie Whipple MD [address] [facility],[address], [place], [address], [employer] - [employer]IN RAYMUNDO 09/17/2023 13:03:36 11/30/2023 text/html HPI: Patient calls PCP today to state last she had an allergic reaction to her Iron infusion at [facility]. She tells me Alecia CARTER (her kidney provider-ordering provider for the iron) is aware that this happened. She now needs to get her iron infusions at [facility], not [facility], because the kidney care staff told her they are switching service providers to [facility]. She got a bag of iron at [facility] when she typically gets a 10 min push at [facility]. She was instructed to take her [...] SOB and abdominal swelling. Patient declined. Sending [employer] per Dr Son for follow up vitals/ assessment. Visit scheduled for this . ...................... ...................... ...................... ...................... ...................... ...................... ......... [facility] Nurse Triage Notes (Maile Hardy): Comments: HPI reviewed. No further information needed to process visit. ...................... ...................... ...................... ...................... ...................... ...................... ......... Medical Doctor Md Note From Cas Robledo: Pt reports while [...] tender in the ULQ. No LE edema. [facility] contacted and pt advised to wait until to see the PCP. Pt instructed to seek emergent medical care for new or worsening sx, such as fever, not passing gas or stool or n/v. ...................... ...................... ...................... ...................... ...................... ...................... ......... Disposition: Fulfilled Josefina Irizarry MD [address] [facility],[address], [place], [address], [email or web address] 11/30/2023 15:28:40 08/17/2024 text/html ROS as noted in the HPI This was a supervised home visit with refrigeration systems installer Enzo Ortiz. HPI: 63-year-old woman with [...] to her xrays until tomorrow morning, sending [facility] today for a toradol inj for pain management ...................... ...................... ...................... ...................... ...................... ...................... ......... [facility] Nurse Triage Notes (Larissa Davila): Reason For Request: Rib pain Chief Complaints: Abdominal Pain PMH: Hypertension, Congestive Heart Failure, COPD/Asthma, Diabetes Mellitus Type 2, Stroke PMH Reviewed at 08/17/2024: Allergies Reviewed at 08/17/2024 - :05 Comments: Reviewed HPI, will place referral for pain evaluation/treat as indicated. HPajavier SHAY ...................... ...................... ...................... ...................... ...................... ...................... ......... Medical Doctor Md Note From Enzo Ortiz: Dispatched to above [...] radial pulse, skin pink warm and dry. [facility] contacted, spoke with Dr. Guerrero, advised of patient complaints and exam findings. [facility] orders 30mg Toradol given IM, will prescribe Lidocaine patches. Patient administered 30mg Toradol IM. Patient advised of red flags home care and need for follow up. Patient agrees with this plan, will follow up with PCP tomorrow after x-ray. Patient has no additional questions or concerns at this time. SC8 clear. EOR. [facility] Medication Orders: ketorolac 60 mg/2 mL intramuscular solution: Administered ...................... ...................... ...................... ...................... ...................... ...................... ......... [facility] Consulted: David Guerrero ...................... ...................... ...................... ...................... ...................... ...................... ......... Disposition: Fulfilled David Guerrero MD [address] [place] [address],[address], [place], [address], [email or web address] 08/17/2024 18:11:36 10/25/2024 text/html HPI: 63 y/o femalePatient called to PCP with reports of vomiting over the last 12 hours. Patient reports headache. Patient states that she is unable to eat due to nausea. ...................... ...................... ...................... ...................... ...................... ...................... ......... [facility] Nurse Triage Notes (DeirdredaviMaile): Chief Complaints: Headache, Nausea / Vomiting PMH: Hypertension, Congestive Heart Failure, COPD/Asthma, Diabetes Mellitus Type 2, Stroke PMH Reviewed at 10/25/2024:16 Allergies Reviewed at 10/25/2024:16 Comments: HPI reviewed.[facility] HPI: 3d abdominal discomfort and today a few episodes of vomiting. a little diarrhea. no fever. no melena or hematochezia, or hematemesis. reports drinking Medical Doctor Md Organization Information for [facility] [employer] Name: [employer] Address: [address] [place] [address], Woodwork Salvage Inspector: Noel Castano MD CLIA No.: [id number] Medical Doctor Md POC Test Results from [facility] Rapid COVID antigen (17:14:29) COVID: - Attachments [...] ...................... ...................... ...................... ...................... ...................... ...................... ......... Medical Doctor Md Note From [facility]: SC12 dispatched to the address listed above for the report of a female democrat with nausea/vomiting. Arrival on scene, patient was [...] management. Patient vital signs obtained as noted. [facility] consulted, provided orders for COVID/FLU POC tests, [...] BMP performed as noted and uploaded to [facility]. Patient advised that she could not provide a urine sample after fluids were administered, [facility] advised to disregard UA/Culture. Patient reports improvement in symptoms with treatments listed above. IV was removed at end of visit, bandaged with gauze and bleeding controlled. Red flags discussed with patient, advised to call 911 if she experiences any life threatening symptoms. SC12 Clear. [facility] Lab Orders: culture, urine: Not Performed Comment: Patient unable to provide urine urinalysis, dipstick: Not Performed Comment: Patient unable to provide urine respiratory pathogens DNA + RNA panel, DONOVAN+probe, nasopharynx: Performed BMP, serum or plasma: Performed ...................... ...................... ...................... ...................... ...................... ...................... ......... [facility] Consulted: Natalya Ayala ...................... ...................... ...................... ...................... ...................... ...................... ......... Disposition: Fulfilled Natalya Ayala MD [address] [place] [address],[address] [facility], [place], [address], [email or web address] 10/25/2024 18:55:25 11/22/2024 text/html HPI: 64 y/o [...] ...................... ...................... ...................... ...................... ...................... ...................... ......... [facility] Nurse Triage Notes (Lizz Peace): Reason For Request: abd pain Chief Complaints: Abdominal Pain PMH: Hypertension, Congestive Heart Failure, COPD/Asthma, Diabetes Mellitus Type 2, Stroke PMH Reviewed at 11/22/2024:50 Allergies Reviewed at 11/22/2024:50 Comments: HPI reviewed ...................... ...................... ...................... ...................... ...................... ...................... ......... Medical Doctor Md Note From Donny Mckinney: Patient alert and [...] full sentences, abdomen, soft, nontender, extremities unremarkable. [facility] discusses contraindications to Toradol. Supportive care alternatives mentioned, patient rejects conversation and ends visit. Patient heard to be calling PCP office. ...................... ...................... ...................... ...................... ...................... ...................... ......... [facility] Consulted: Nidia Morales ...................... ...................... ...................... ...................... ...................... ...................... ......... Disposition: Fulfilled Nidia Morales MD [address] [facility],[address] [facility], [place], [address], NAZANIN HARTMAN 11/22/2024 15:41:36 OBGyn Episode No OBEpisode recorded.
--- OUTSIDE RECORDS SUMMARY | 2024-12-06 09:21 | XMS_ITS | Clinical Summary ---
Author Organization [facility] Address [address] [place] [address] Care Team Providers Care Dry House Operator Name Role Phone Geovani Natalie Carmelo ESPARZA Primary Care Provider [phone] Allergies Active Allergy Reactions Criticality Noted Date [...] 1 10/04/2016 Active ergocalciferol (VITAMIN D2) capsule 51880 units TK ONE C PO TWICE A [...] times a day. 0 04/27/2022 Active pancrelipase, Zjv-Eorm-Xomn, (Creon) 29[address] units CPEP TK ONE C PO TID [...] age to complete this topic Care Teams Dry House Operator Relationship Specialty Start Date End Date Natalie Olivo APRN [address] [place] [address] PCP - General Cement Finisher Helper 04/30/22
--- OUTSIDE RECORDS SUMMARY | 2024-12-06 09:21 | XMS_ITS | Encounter Summary ---
Author Organization [facility], Address [address] [place] [address] Phone Care Team Providers Care Security Clerk Name Role Phone Sahra Son MD Primary Care Provider + Encounter Details Date Type Department Care Team (Late st Contact Info) Description 06/18/2021 Documentation Only [facility], [address] [place] [address] India Davalos [address] [place] [address] Social History Tobacco Use Types [...] filedocumented in this encounter Care Teams Security Clerk Relationship Specialty Start Date End Date Sahra Son MD [address] [address] PCP - General Internal Medicine 10/28/22 documented as of this encounter
--- OUTSIDE RECORDS SUMMARY | 2024-12-06 09:21 | XMS_ITS | Encounter Summary ---
Author Organization [facility] Address [address] [place] [address] Care Team Providers Care Jewelry Appraiser Name Role Phone Sahra Son MD Primary Care Provider + Reason for Visit * Reason Onset Date Comments appointment 11/15/2024 Encounter Details Date Type Department Care Team (Late st Contact Info) Description 11/15/2024 Telephone Gastroenterology - [place] [address] [place] [address] Jc Guerrier MD [address] [facility] [address] [place], [place] [id number] appointment Social History Tobacco Use Types Packs/Day [...] 11/15/2024 1:32 PM EDT Records received from [facility] Primary Care for rectocele, abdominal distension, fatty liver, chronic pancreatitis. LVM to schedule appointment. Records scanned - [place] documented in this encounter Plan of Treatment Upcoming Encounters Date Type Department Care Team (Late st Contact Info) Description 02/08/2025 9:10 AM EDT Consult Gastroenterology - [place] [address] [place] [address] Deloris Vickers PA [address] [place] [address] [place] [address] documented as of this encounter Visit Diagnoses Not on filedocumented in this encounter Care Teams Jewelry Appraiser Relationship Specialty Start Date End Date Sahra Son MD [address] [place] [address] [address] [place] [address] PCP - General Internal Medicine 11/15/24 documented as of this encounter
== END 2024-12-06 09:56 | disposition home or self-care (01) ==
LOC: HO.ACS 08:56
PROVIDERS: PCP Internal Medicine; Visit Provider Internal Medicine Medical Oncology
DX: Z79.01 Long term (current) use of anticoagulants (principal)

== ENCOUNTER → 2024-12-06 08:56 | Outpatient (BNVA) | payer OTHER, SELFPAY | PROVIDERS: PCP Internal Medicine; Visit Provider Internal Medicine Medical Oncology | DX: Z86.718 Personal history of other venous thrombosis and embolism (principal); Z79.01 Long term (current) use of anticoagulants; Z51.81 Encounter for therapeutic drug level monitoring | CPT/HCPCS: 85610; 99211 ==

== ENCOUNTER 2024-12-12 09:07 | Outpatient (AMB) | payer OTHER, SELFPAY ==
--- NOTE | 2024-12-12 09:11 | MHC.OFFVIS ---
Vital Signs 12/12/24 09:18 Height 5 ft 7 in Weight 220 lb 4 oz BMI 34.5 BP 152/70 H Blood Pressure Location Rt brachial Position Sitting Pulse 100 Pulse Source Pulse Oximeter Pulse Oximetry (%) 95 Oxygen Delivery Method Room Air Intake Visit Reasons: 4m follow up Hearing Healthcare Practitioner Required: No Accompanied by: Self / Same As Patient Allergies codeine (Codeine) Allergy (Severe, Verified 12/06/24 09:12) DIFFICULTY BREATHING Penicillins Allergy (Severe, Verified 12/06/24 09:12) RASH penicillin V Allergy (Intermediate, Verified 12/06/24 09:12) RASH tramadol (Ultram) Allergy (Unknown, Verified 12/06/24 09:12) hallucinations Shellfish Allergy (Severe, Uncoded 12/06/24 09:12) THROAT SWELLING Contrast Allergy PreMed Pack Allergy (Unknown, Uncoded 12/06/24 09:12) TREAT WITH BENADRYL ferrlecit Adverse Reaction (Intermediate, Uncoded 12/06/24 09:12) Rash HPI Comments Details: 64y/o female with multiple medical and psychiatric issues comes for follow up of possible seizure disorder. Her repeat EEG showed mild left temporal irritability.No episodes of seizure like activity.she is doing good on depakote - coumadin clinic is monitoring her INR. History from her initial visit 05/2024- she is accompanied by her sister . 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 she is followed up by . She started having seizure like episodes 20 years ago. She describes the episode starting with yes yes head tremors, confusion and gen body shaking lasting few seconds to minutes followed by extreme fatigue . she used to have 1-2 a week and used to be on Phenytoin - but developed toxicity ? twice as per patient so was stopped 15 years ago.Phenytoin controlled her seizures. She says she lost all her teeth and multiple fractures because of falls related to seizures.. She is usually confused during the episodes. she has neurogenic bladder . No tongue biting. No family h/o seizures. she has multiple falls . she has h/o anxiety , depression ? schizophrenia. she was seen at [facility] - EEG was done and was told the episodes were nonepileptic. [facility] Medical History Episode of shaking Ectopic Opioid dependence on agonist therapy Pulmonary nodule Hyperthyroiditis Graves disease Gout History of DVT (deep vein thrombosis) History of CVA (cerebrovascular accident) Conversion disorder Tobacco abuse Hiatal hernia Antiphospholipid antibody positive Schizophrenia Osteopenia Glaucoma Hypoglycemia Leukemia Lupus (systemic lupus erythematosus) Neurogenic bladder Fibromyalgia Urinary incontinence Carotid artery aneurysm Psychogenic nonepileptic seizure Thyroid disease Stroke Seizures Osteoporosis Memory loss CKD (chronic kidney disease) Hyperlipidemia HTN (hypertension) Heartburn Heart disease Headache Diabetes Depression COPD (chronic obstructive pulmonary disease) Asthma Arthritis Anemia Surgical History H/O shoulder surgery H/O: hysterectomy Hx of cholecystectomy Family History Father FH: heart attack Lymphoma CHF (congestive heart failure) Mother Breast cancer in female Social History Alcohol intake: never Patient Tobacco Use Status: Current everyday Tobacco user Substance Use Type: Marijuana Physical Exam Vital Signs: Last Vital Signs Pulse 100 12/12/24 09:18 BP 152/70 H 12/12/24 09:18 Pulse Ox 95 12/12/24 09:18 Oxygen Delivery Method Room Air 12/12/24 09:18 BMI result Body Mass Index 34.5 Const General: cooperative, healthy appearing and comfortable Nutritional Appearance: average body habitus Orientation/consciousness: patient oriented x3 Neuro General: patient oriented x3, gait normal, tone normal, moves all extremities and no focal motor deficits Cranial nerves: Yes Facial sensation intact/muscles of mastication intact, Yes Bilaterally intact EOM present, Yes Nystagmus not present, Yes Normal facial strength present, Yes Midline tongue present, Yes Symmetric palate elevation present and Yes Ability to bilaterally elevate shoulders present Cognition (Neuro): normal cognition Gait exam (Neuro): Normal gait present Motor exam (neuro): 5/5 motor strength present throughout and Normal motor muscle tone present throughout Assessment & Plan Assessment & Plan (1) Episode of shaking: Comment: ? seizures Code(s): R25.1 - Tremor, unspecified Category: Medical (2) History of left common carotid artery stent placement: Code(s): Z98.890 - Other specified postprocedural states; Z95.828 - Presence of other vascular implants and grafts (3) Psychogenic nonepileptic seizure: Code(s): F44.5 - Conversion disorder with seizures or convulsions Category: Medical (4) Seizures: Code(s): R56.9 - Unspecified convulsions Plan EEG showed mild left temporal irritability Reviewed her MRI brain , orbits and CTA brain and neck . Continue Depakote ER 250 mg bid - monitor INR as it can increase her warfarin levels . F/u with psychiatry counseled on good diabetes control , smoking cessation etc. Coding Level of Care Code Est Pt Level 4 (64166) Complex EM visit Add On G2211 Diagnoses Episode of shaking R25.1 History of left common carotid artery stent placement Z98.890; Z95.828 Psychogenic nonepileptic seizure F44.5 Seizures R56.9
[2024-12-12 09:18] VITALS: BP 152/70; PULSE 100; O2SAT 95; BMI 34.5
--- OUTSIDE RECORDS SUMMARY | 2024-12-12 09:34 | XMS_ITS | Data Portability ---
Author Organization [email or web address], [facility] Address [address] [place] [address] Care Team Providers Care Dairy Nutrition Specialist Name Role Phone HIM CCA OTHER Assessment Encounter Date Assessment Date Assessment LastModified by Organization Details LastModified Time 09/16/2023 09/16/2023 I provided real -time medical direction via phone for this encounter, and was available for additional phone based assistance as needed. I have reviewed and agree with the Assessment and Plan as documented by the Metal Smelter. We discussed the diagnostic uncertainty of home visits and the risk associated with this The patient given the opportunity to ask questions. Call placed to [facility] ER expect line [email or web address] Not available 09/16/2023 11:20:43 08/17/2024 08/17/2024 I have reviewed and agree with the assessment and plan as documented by the wildlife forensic geneticist. I provided real time medical direction for this encounter and was immediately available to provide additional phone based assistance as needed. History as noted by wildlife forensic geneticist. Pt with history of type 2 diabetes [...] in the field was performed by my wildlife forensic geneticist colleague, as noted above, I provided real-time [...] None recorded. Lab culture, urine 2024 025 [place] [id number] [facility] (Centralized Electronic Ordering - All Locations), Patient Can Go To The Location Of Their Choice, [facility] 5 08:25:21 urinalysis, dipstick 2024 025 [facility], [address] [place] [address], [id number] 5 20:21:31 respiratory pathogens DNA + RNA panel, DONOVAN+probe, nasopharynx 2024 025 [place] [address] [facility] (Centralized Electronic Ordering - All Locations), Patient Can Go To The Location Of Their Choice, [id number] 5 18:18:02 BMP, serum or plasma 2024 025 [facility], [address] [place] [address], [id number] 5 20:21:31 glucose, fingerstick , blood [email or web address] [facility], [address] [place] [address], [id number] 4 11:21:41 Referral None recorded. Procedures None recorded. Surgeries None recorded. Imaging None recorded. Medication Orders lactated Ringers intravenous solution 2024 025 [id number], [address] [place], [place], [id number], 16:57:07 ondansetron HCl (PF) 4 mg/2 mL injection solution 2024 025 [facility][id number], [address] [place], [place], [id number], 5 16:57:04 ketorolac 60 mg/2 mL intramuscul ar solution 2024 025 amanda Day [facility] #[id number], [address], [place], [id number], 5 16:08:53 lidocaine 4 % topical patch 2024 025 JEANNE [facility] #[id number], [address], [place], [id number], 5 16:08:59 Patient TargetsNo targets recorded. Patient InstructionsNo instructions recorded. Reason for Referral None Reported. Results Created Date Observation Date Name Description Value Unit Range Abnormal Flag Note LastModifiedBy Organization Detail LastModifiedTime 09/16/19 24 09/16/2023 gluco se, finge rstic k, blood Blood Glucose: mg/dl 215 Not Available [facility] [address] [place] [address], [id number] 09/16/2023 11:21:03 Result Notes None recorded. Medical [...] Not available Not available Not available 05/27/2022 64786 CHARLEYK Nidia Morales MD [address] [place] [address],[address], [place], [address], [facility] 3 14:08:14 1749 Product containin g penicilli n (product) medicatio n Not available Not available Not available 05/27/2022 08322 8001 SNOMED Not Available [facility] - production 4 03:41:45 4589 morphine medicatio n Not available Not available Not available 07/07/2023 7052 RxNorm Natalie Whipple MD [address] [place] [address],[address], [place], [address], [facility] 4 15:03:14 4590 Iodinated contrast media (substanc e) medicatio n Not available Not available Not available 07/07/2023 67359 2003 SNOMED Natalie Whipple MD [address] [facility],[address], [place], [phone] , [facility] 4 15:03:26 Medications [...] [degF] 16 /min 140/64 mm[Hg] Not Available [facility] 5 16:01:31 Date Recorded Body temperature Heart rate Respiratory rate Oxygen saturation Oxygen saturation in Arterial blood by Pulse oximetry Systolic And Diastolic Provider Name and Address Organization Details Last Updated DateTime 4 97.7 [degF] 65 /min 18 /min 97 % 97 % 138/64 mm[Hg] Not Available [facility] 4 12:03:25 Date Recorded Body temperature Heart rate Oxygen saturation Oxygen saturation in Arterial blood by Pulse oximetry Respiratory rate Systolic And Diastolic Provider Name and Address Organization Details Last Updated DateTime 5 98.3 [degF] 94 /min 98 % 98 % 18 /min 158/80 mm[Hg] Not Available [facility] 5 16:49:15 Date Recorded Oxygen saturation Oxygen saturation in Arterial blood by Pulse oximetry Heart rate Body weight Body temperature Respiratory rate Body height Systolic And Diastolic Provider Name and Address Organization Details Last Updated DateTime 5 96 % 96 % 90 /min 86069.4 g 98 [degF] 14 /min 167.64 cm 148/92 mm[Hg] Not Available [facility] 5 14:19:37 Date Recorded Body temperature Oxygen [...] Note 4123 Dante Brown MD [facility] [address] [place] [phone] 02/04/2022 17:39:01 02/04/2022 17:44:57 4305 Ana Luisa Fair MD [facility] [address] [place] [phone] 02/13/2022 11:18:20 02/13/2022 11:46:05 5856 Dante Brown MD [facility] [address] [place] [phone] 04/20/2022 16:19:49 04/22/2022 11:04:34 Viral upper respiratory tract infection [id number] J06.9 This 61-year-ol d female called [facility] with symptoms of a URI. Her COVID-19 and flu screens were negative and she did not appear to be acutely ill. I recommende d symptomati c treatment and she will follow-up with her PCP if her symptoms persist. The patient agreed with this plan. 6701 Jah Vasquez MD Main [facility] [address] [place] [phone] 05/19/2022 15:42:35 05/21/2022 10:52:46 COVID-19 [id number] U07.1 6944 Nidia Morales MD [facility] - [address] [phone] 05/27/2022 14:04:20 05/29/2022 10:25:07 Pneumonia [id number] J18.9 61yo PMHx ?seizure activity, HTN, CKD, [...] assessment and plan as documented by the wildlife forensic geneticist. I provided real time medical direction for this encounter and was immediatel y available to provide additional phone based assistance as needed. [id number] David Guerrero MD Main - [facility] [address] [place] [phone] 05/14/2023 15:50:47 05/18/2023 12:06:52 Cough [id number] R05.9 30010 Natalie Whipple MD Main - [facility] [address] [place] [phone] 07/07/2023 15:01:51 07/08/2023 09:28:47 Acute low back pain 702511188 M54.50 On top of chronic advised needs [...] her best interest History of rectal bleeding [id number] 8444794 Z87.19 We do not have the ability to do stool guaiac and although her H&H is currently stable I am concerned with her taking ibuprofen while on Coumadin-a dvised needs workup for GI bleeding. [id number] Ana Luisa Fair MD Main - [facility] [address] [place] [phone] 08/03/2023 11:25:58 08/03/2023 20:10:35 Acute exacerbation of chronic obstructive pulmonary disease [id number] J44.1 [id number] Natalie Whipple MD Main - [facility] [address] [place] [phone] 09/16/2023 11:10:45 09/19/2023 12:06:57 Dizziness 456583370 R42 Prolonged postictal symptoms / cannot r/o new CVA vs bleed given unsteadine ss, increased right hemiparesi s and patient is a large fall risk- advised patient need for emergent CT brain-hypo glycemia is not the issue here. Explained to patient the need for emergent evaluation and she agreed. [place] [facility] [place] [id number] Josefina Irizarry MD Main - [address] [phone] 11/30/2023 14:12:32 11/30/2023 18:23:22 Abdominal pain 53604294 R10.9 63 year old female with iron [...] assessment and plan as documented by the wildlife forensic geneticist. I provided real-time medical direction for this encounter and was immediatel y available to provide additional phone-base d assistance as needed. We discussed the diagnostic uncertaint y of home visits and associated risks. We discussed the need to seek care urgently/e mergently in the setting of any new or worsening symptoms. [id number] David Guerrero MD Main - [facility] [address] [place] [phone] 08/17/2024 16:01:29 08/17/2024 19:17:31 Contusion of right rib [id number] 7101 S20.211A 01746 Natalya Ayala MD [address] [address] 10/25/2024 16:49:12 10/25/2024 21:09:19 Acute abdominal pain 334380163 R10.9 Mild dehydration 1714846 119 108 E86.0 05968 Nidia Morales MD [address] [address] 11/22/2024 14:19:34 11/22/2024 22:11:44 Rib pain 432555895 R07.81 Evaluation in the field was performed by my wildlife forensic geneticist colleague, as noted above, I provided real-time [...] Gorman Member ID Guarantor Name 09/16/2023 1 [facility] - DOS PRIOR TO 2022 - DUAL ELIGIBLE (MEDICARE REPLACEMENT/AD VANTAGE - HMO) Jennifer Schulz [id number] Jennifer Schulz 11/22/2024 1 [facility] - DOS ON OR AFTER 2022 - DUAL ELIGIBLE - [employer] OPTIONS AND ONE CARE (MEDICARE REPLACEMENT/AD VANTAGE - HMO) Jennifer Schulz [id number] Jennifer Schulz OBGyn Episode No OBEpisode recorded.
--- OUTSIDE RECORDS SUMMARY | 2024-12-12 09:34 | XMS_ITS | Clinical Summary ---
Author Organization [facility] Address [address] [place] [address] Care Team Providers Care Pharmacy Graduate Intern Name Role Phone Geovani Natalie Carmelo ESPARZA Primary Care Provider [phone] Allergies Active Allergy Reactions Criticality Noted Date [...] 1 10/04/2016 Active ergocalciferol (VITAMIN D2) capsule 40942 units TK ONE C PO TWICE A [...] times a day. 0 04/27/2022 Active pancrelipase, Pzt-Fgqd-Svuv, (Creon) 58328-[address] units CPEP TK ONE C PO TID [...] age to complete this topic Care Teams Pharmacy Graduate Intern Relationship Specialty Start Date End Date Natalie Olivo APRN [address] [place] [address] PCP - General Devulcanizer Head 04/30/22
--- OUTSIDE RECORDS SUMMARY | 2024-12-12 09:34 | XMS_ITS | Encounter Summary ---
Author Organization [facility], Address [address] [place] [address] Phone Care Team Providers Care Natural Gas Shothole Driller Name Role Phone Sahra Son MD Primary Care Provider + Encounter Details Date Type Department Care Team (Late st Contact Info) Description 06/18/2021 Documentation Only [facility], [address] [place] [address] India Davalos [address] [place] [address] Social History Tobacco Use Types [...] in this encounter Care Teams Natural Gas Shothole Driller Relationship Specialty Start Date End Date Sahra Son MD [address] [address] PCP - General Internal Medicine 10/28/22 documented as of this encounter
--- OUTSIDE RECORDS SUMMARY | 2024-12-12 09:34 | XMS_ITS | Encounter Summary ---
Author Organization [facility] Address [address] [place] [address] Care Team Providers Care Hotel Houseman Name Role Phone Sahra Son MD Primary Care Provider + Reason for Visit * Reason Onset Date Comments appointment 11/15/2024 Encounter Details Date Type Department Care Team (Late st Contact Info) Description 11/15/2024 Telephone Gastroenterology - [place] [address] [place] [address] Jc Guerrier MD [address] [facility] [address] [place], [place] [phone] appointment Social History Tobacco Use Types Packs/Day [...] 11/15/2024 1:32 PM EDT Records received from [facility] Primary Care for rectocele, abdominal distension, fatty liver, chronic pancreatitis. LVM to schedule appointment. Records scanned - [place] documented in this encounter Plan of Treatment Upcoming Encounters Date Type Department Care Team (Late st Contact Info) Description 02/08/2025 9:10 AM EDT Consult Gastroenterology - [place] [address] [place] [address] Deloris Vickers PA [address] [place] [address] documented as of this encounter Visit Diagnoses Not on filedocumented in this encounter Care Teams Hotel Houseman Relationship Specialty Start Date End Date Sahra Son MD [address] [place] [address] [address] [place] [address] PCP - General Internal Medicine 11/15/24 documented as of this encounter
--- OUTSIDE RECORDS SUMMARY | 2024-12-12 09:34 | XMS_ITS | Encounter Summary ---
Author Organization [facility] Address [address] [place] [address] Care Team Providers Care Horn Player Name Role Phone Sahra Son MD Primary Care Provider Marko Fernandez MD Unavailable [phone] Encounter Details Date Type Department Care Team Description 09/02/2022 Telephone Pulmonology - [place] [address] [facility] [address] [place] [phone] Betty Morillo MD 175 [facility] [address] [place] [phone] Social History Tobacco Use Types Packs/Day Years [...] pcp CCA requesting last office notes fax [phone] documented in this encounter Plan of Treatment Not on file documented as of this encounter Visit Diagnoses Not on filedocumented in this encounter Care Teams Horn Player Relationship Specialty Start Date End Date Sahra Son MD PCP - General Internal Medicine 08/31/22 Marko Spaulding MD Specialist Cardiology 09/23/22 documented as of this encounter
== END 2024-12-12 09:31 | disposition home or self-care (01) ==
LOC: HO.HSMS 09:07
PROVIDERS: PCP Internal Medicine; Visit Provider Psychiatry & Neurology Neurology
DX: R25.1 Tremor, unspecified (principal); Z98.890 Other specified postprocedural states; Z95.828 Presence of other vascular implants and grafts; F44.5 Conversion disorder with seizures or convulsions; R56.9 Unspecified convulsions
CPT/HCPCS: 99214; G2211

== ENCOUNTER → 2024-12-12 09:07 | Outpatient (BNVA) | payer OTHER, SELFPAY | PROVIDERS: PCP Internal Medicine; Visit Provider Psychiatry & Neurology Neurology | DX: F44.5 Conversion disorder with seizures or convulsions (principal); R25.1 Tremor, unspecified; Z98.890 Other specified postprocedural states; Z95.828 Presence of other vascular implants and grafts | CPT/HCPCS: 99212 ==

== ENCOUNTER 2024-12-19 08:11 | Outpatient (AMB) | payer OTHER, SELFPAY ==
--- OUTSIDE RECORDS SUMMARY | 2024-12-19 08:17 | XMS_ITS | Encounter Summary ---
Author Organization [facility], Address [address] [place] [address] Phone Care Team Providers Care Cdl A Driver Name Role Phone Sahra Son MD Primary Care Provider + Encounter Details Date Type Department Care Team (Late st Contact Info) Description 06/18/2021 Documentation Only [facility], [address] [place] [address] India Davalos [address] [place], [place] [...] on filedocumented in this encounter Care Teams Cdl A Driver Relationship Specialty Start Date End Date Sahra Son MD [address] [address] PCP - General Internal Medicine 10/28/22 documented as of this encounter
--- OUTSIDE RECORDS SUMMARY | 2024-12-19 08:18 | XMS_ITS | Clinical Summary ---
Author Organization 175 [facility] Address 175 [place] [address] Phone Care Team Providers Care Fisher Weir Name Role Phone Sahra Son MD Primary Care Provider + Encounters Date Type Department Care Team Description 11/15/2024 Telephone Gastroenterology - [place] 175 [facility] 175 [facility] [address] [place] [address] Jc Guerrier MD appointment from Last 3 Months Surgical History Surgery Date Site/Laterality Comments OTHER SURGICAL HISTORY 1975 PROCEDURE: [place] ECTOPIC ABDOMINAL/VAGINAL APPR PARTIAL HYSTERECTOMY PROCEDURE: [place] SUPRACERVICAL ABDL HYSTER W/WO RMVL TUBE OVARY CHOLECYSTECTOMY 1982 PROCEDURE: HISTORICAL CHOLECYSTECTOMY CARPAL TUNNEL RELEASE 11/21/2014 Left PROCEDURE: HISTORICAL CARPAL TUNNEL REL BOWEL RESECTION 03/2004 PROCEDURE: HISTORICAL BOWEL RESECTION; COMMENT: bowel obstruction Medical History Medical History Date Comments Diverticulosis DX:Diverticulosi s CHF (congestive heart failur e) ([facility] V24, [facility] V28) DX:CHF (congestive heart fa ilure) ([facility]) COPD (chronic obstructive pu lmonary disease) ([facility] [place], [facility] V28) DX:COPD (chronic o bstructive pulmonary disease) ([facility]) Osteoporosis DX:Osteoporosis Fibromyalgia DX:Fibromyalgia Myelofibrosis ([facility] V24, [facility] V28) DX:Myelofibrosis ([facility]); COMM ENT: diagnosed 8 years ago, follows with DR layne Meningioma ([facility] V24, [facility] V28) DX:Meningioma ([facility]) Asthma DX:Asthma Gout DX:Gout Seizures ([facility] V24, [facility] V28) DX:Seizures ([facility]) Lupus DX:Lupus Depression DX:Depression; C OMMENT: follows at [facility] net at [place] [address] Gann Hypercoagulable state ([facility] V24) DX:Hypercoagulable state (HCC); COMMENT: on coumadin Neurogenic bladder DX:Neurogenic bladder; COMMENT: flowers dependent Supplemental oxygen dependent DX :Supplemental oxygen dependent Lung nodule 03/22/2017 DX:Lung nodule ALESSANDRA (obstructive sleep apnea) 03/22/2017 DX :ALESSANDRA (obstructive sleep apnea) GERD (gastroesophageal reflux disease) 03/22/2017 DX:GERD (gastroesophageal reflux disease) Anxiety 03/22/2017 DX:Anxiety Dementia ([facility] V24, [facility] V28) 03/22/2017 DX:Dementia (HCC) Schizophrenia ([facility] V24, [facility] V28) 03/22/2017 DX:Schizophrenia ([facility]) Glaucoma 03/22/2017 DX:Glaucoma History of stroke DX:History of stroke History of deep vein thrombosis DX:History of deep vein thrombosis Coronary artery disease DX:Coron christine artery disease; COMMENT: Old [place] Diabetes mellitus type 2 wit h neurological manifestations ([facility] V24, [facility] V28) DX:Diabetes mellitus type 2 with neurological manifestations ([facility]) Leukemia ([facility], [facility] V28) 09/02/2017 DX:Leukemia ([facility]) MDS (myelodysplastic syndrom e) ([facility], [facility] V28) 09/02/2017 DX:MDS (myelodysplastic syn drome) ([facility]) Hyperthyroidism 09/02/2017 DX:Hyperthyroidi sm History [...] Weight 100 kg (220 lb 6.4 oz) 8:48 AM EDT Height 170.2 cm (5' 7 ) 12/04/2022 8:48 AM EDT Body Mass Index 34.52 12/04/2022 8:48 AM EDT Plan of Treatment Upcoming Encounters Date Type Department Care Team (Late st Contact Info) Description 02/08/2025 9:10 AM EDT Consult Gastroenterology - [place] [address] [place] 175 [facility] [address] [place] [phone] Deloris Vickers PA 175 [facility] [address] [place] [address] Health Maintenance Due Date Last Done Comments Breast Cancer Screening 1960 Diabetes: Annual GFR (Glomer ular Filtration Rate) 1960 COVID-19 Vaccine (#1) 11/07/1964 Diabetes: Annual Foot Exam 11/07/1969 Diabetes: Annual Retina Eye Exam 11/07/1969 DTaP,Tdap,and Td Vaccines (1 - Tdap) 11/07/1978 Pneumococcal Vaccine: 50+ Ye ars (1 of 2 - PCV) 11/07/1978 Zoster Vaccines (1 of 2) 11/07/1978 Cervical Cancer Screening: P ap Smear 11/07/1980 RSV Immunization Adult Patie nts (1 - Risk 60-74 years 1-dose series) 2019 Cholesterol Screening (Lipid Panel) 04/19/2022 Colorectal Cancer Screening: Colonoscopy 04/19/2022 Hepatitis C Screening 04/19/2022 Osteoporosis Screening (Bone Density Screening) 04/19/2022 Social Influencers of Health Screening 04/19/2022 Hypertension/CHF/CAD Annual BMP Blood Test 06/15/2023 Diabetes: Annual Urine Albumin-Creatinine Ratio (uACR) 07/01/2023 Diabetes: Blood Sugar Contro l Test (HGBA1C) 07/01/2023 Depression Screening 05/17/2024 Falls Risk Assessment 11/07/2024 Influenza Vaccine (#1) 2025 HIB Vaccines Aged Out No longer [...] on patient's age to complete this topic Insurance [facility] Member Subscriber Plan / Payer (Ef fective for All Dates) Name:Jennifer Schulz Relation to Subscriber:Self Name:Jennifer Schulz Payer ID:[id number] Group ID:[id number] Type:Not on file Address: [place] [address] [place] [phone] Care Teams Fisher Weir Relationship Specialty Start Date End Date Sahra Son MD [address] [place] [address] PCP - General Internal Medicine 11/15/24
--- OUTSIDE RECORDS SUMMARY | 2024-12-19 08:18 | XMS_ITS | Clinical Summary ---
Author Organization [facility] Address [address] [place] [address] Care Team Providers Care Field Hockey Coach Name Role Phone Geovani Natalie Carmelo ESPARZA Primary Care Provider [phone] Allergies Active Allergy Reactions Criticality Noted Date [...] 1 10/04/2016 Active ergocalciferol (VITAMIN D2) capsule 40803 units TK ONE C PO TWICE A [...] times a day. 0 04/27/2022 Active pancrelipase, Wpr-Mrjp-Wivo, (Creon) 585[address] units CPEP TK ONE C PO TID [...] age to complete this topic Care Teams Field Hockey Coach Relationship Specialty Start Date End Date Natalie Olivo APRN [address] [place] [address] PCP - General Court Specialist 04/30/22
--- NOTE | 2024-12-19 08:35 | MHC.OFFVISCO ---
Intake Intake Visit Reasons: Anticoagulation Allergies codeine (Codeine) Allergy (Severe, Verified 12/19/24 08:18) DIFFICULTY BREATHING Penicillins Allergy (Severe, Verified 12/19/24 08:18) RASH penicillin V Allergy (Intermediate, Verified 12/19/24 08:18) RASH tramadol (Ultram) Allergy (Unknown, Verified 12/19/24 08:18) hallucinations Shellfish Allergy (Severe, Uncoded 12/19/24 08:18) THROAT SWELLING Contrast Allergy PreMed Pack Allergy (Unknown, Uncoded 12/19/24 08:18) TREAT WITH BENADRYL ferrlecit Adverse Reaction (Intermediate, Uncoded 12/19/24 08:18) Rash Medication List - Last Reconciled 12/19/24 by Tangela Sam RN alcohol swabs 2 pad topical DAILY atorvastatin 80 mg PO DAILY blood sugar diagnostic As directed budesonide (Pulmicort) 0.25 mg inhalation BID clonidine HCl 0.1 mg PO BID dapagliflozin propanediol (Farxiga) 5 mg PO DAILY divalproex ER 250 mg PO BID duloxetine (Cymbalta) 30 mg PO DAILY duloxetine 60 mg PO QAM epoetin marj (Procrit) 2,000 units subcut 3XW hydrocortisone 2.5% appl topical ipratropium-albuterol 0.5 mg-3 mg(2.5 mg base)/3 mL mL inhalation ipratropium-albuterol 20-100 mcg/actuation 1 puff PO QID ipratropium-albuterol 20-100 mcg/actuation (Combivent Respimat) 1 puff inhalation Q4H lancets As directed lancets As directed latanoprost 0.005% drps ophthalmic (eye) lidocaine 4% (Lidocaine Pain Relief) 1 patch topical DAILY PRN linaclotide (Linzess) 145 mcg PO DAILY linagliptin (Tradjenta) 5 mg PO DAILY zwabkq-hnofmbgs-rfqhdit 24,000-76,000 -120,000 unit (Creon) 1 cap PO TID loratadine 10 mg PO DAILY PRN lorazepam 1 mg PO BID meclizine mg PO montelukast 10 mg PO BEDTIME nifedipine ER 30 mg PO DAILY nitroglycerin 0.4 mg sublingual Q5M PRN nystatin 1 appl topical DAILY PRN ondansetron 4 mg PO Q8H PRN oxcarbazepine (Trileptal) 150 mg PO Q12H 30 days quetiapine 200 mg PO BEDTIME rabeprazole 20 mg PO DAILY ropinirole 0.25 mg PO BEDTIME sodium chloride 0.65% (Deep Sea Nasal) sprays intranasal Q2H PRN triamcinolone acetonide 0.1% appl topical warfarin 2.5 mg See Protocol PO DAILY Nursing Note INR 1.7?? out of therapeutic range Medications and supplements reviewed Patient status:chronic hemorrhoids bleeding -going to try OTC suppositories to help - on new med per md crowder to help also Medications or supplements: on lenzess for bowls and hemorrhoids Diet: fair Denies any signs and symptoms of bleeding or clotting or unusual bruising Bleeding, bruising, clotting discussed Nutritional guidance given: no greens Dose: keep same 3.75mg x 2 days/ 5mg x 5 days F/U INR Date: 1 week ?? Patient verbalizing understanding of instructions given. Anti-Coag Initial Assessment Social Hx Patient Tobacco Use Status: Current everyday Tobacco user alcohol intake: never Coding Level of Care Code Est Patient Level 1 Diagnoses Current use of anticoagulant therapy Z79.01 Results AMB INR Fingerstick AMB INR Fingerstick 1.7 Last Edit by Tangela Sam RN on 12/19/24 08:27 Assessment & Plan Assessment & Plan (1) Current use of anticoagulant therapy: Code(s): Z79.01 - senior care (current) use of anticoagulants Category: Medical
[2024-12-19 08:41] LABS: Prothrombin Time Whole Bld POC 20.5 sec (11.1-13.5); ~PT, ~INR - Anti Coag Clinic 1.7 (0.9-1.1)
== END 2024-12-19 08:40 | disposition home or self-care (01) ==
LOC: HO.ACS 08:11
PROVIDERS: PCP Internal Medicine; Visit Provider Internal Medicine Medical Oncology
DX: Z79.01 Long term (current) use of anticoagulants (principal)

== ENCOUNTER → 2024-12-19 08:11 | Outpatient (BNVA) | payer OTHER, SELFPAY | PROVIDERS: PCP Internal Medicine; Visit Provider Internal Medicine Medical Oncology | DX: Z79.01 Long term (current) use of anticoagulants (principal) | CPT/HCPCS: 85610; 99211 ==

== ENCOUNTER 2025-01-01 08:24 | Outpatient (AMB) | payer OTHER, SELFPAY ==
[2025-01-01 08:35] LABS: Prothrombin Time Whole Bld POC 22.2 sec (11.1-13.5); ~PT, ~INR - Anti Coag Clinic 1.8 (0.9-1.1)
--- NOTE | 2025-01-01 08:35 | MHC.OFFVISCO ---
Intake Intake Visit Reasons: Anticoagulation Allergies codeine (Codeine) Allergy (Severe, Verified 01/01/25 08:26) DIFFICULTY BREATHING Penicillins Allergy (Severe, Verified 01/01/25 08:26) RASH penicillin V Allergy (Intermediate, Verified 01/01/25 08:26) RASH tramadol (Ultram) Allergy (Unknown, Verified 01/01/25 08:26) hallucinations Shellfish Allergy (Severe, Uncoded 01/01/25 08:26) THROAT SWELLING Contrast Allergy PreMed Pack Allergy (Unknown, Uncoded 01/01/25 08:26) TREAT WITH BENADRYL ferrlecit Adverse Reaction (Intermediate, Uncoded 01/01/25 08:26) Rash Medication List - Last Reconciled 01/01/25 by Barbara Lr RN alcohol swabs 2 pad topical DAILY atorvastatin 80 mg PO DAILY blood sugar diagnostic As directed budesonide (Pulmicort) 0.25 mg inhalation BID clonidine HCl 0.1 mg PO BID dapagliflozin propanediol (Farxiga) 5 mg PO DAILY divalproex ER 250 mg PO BID duloxetine (Cymbalta) 30 mg PO DAILY duloxetine 60 mg PO QAM epoetin marj (Procrit) 2,000 units subcut 3XW hydrocortisone 2.5% appl topical ipratropium-albuterol 0.5 mg-3 mg(2.5 mg base)/3 mL mL inhalation ipratropium-albuterol 20-100 mcg/actuation 1 puff PO QID ipratropium-albuterol 20-100 mcg/actuation (Combivent Respimat) 1 puff inhalation Q4H lancets As directed lancets As directed latanoprost 0.005% drps ophthalmic (eye) lidocaine 4% (Lidocaine Pain Relief) 1 patch topical DAILY PRN linaclotide (Linzess) 145 mcg PO DAILY linagliptin (Tradjenta) 5 mg PO DAILY qnqobe-eyitnztn-sooddpe 24,000-76,000 -120,000 unit (Creon) 1 cap PO TID loratadine 10 mg PO DAILY PRN lorazepam 1 mg PO BID meclizine mg PO montelukast 10 mg PO BEDTIME nifedipine ER 30 mg PO DAILY nitroglycerin 0.4 mg sublingual Q5M PRN nystatin 1 appl topical DAILY PRN ondansetron 4 mg PO Q8H PRN oxcarbazepine (Trileptal) 150 mg PO Q12H 30 days quetiapine 200 mg PO BEDTIME rabeprazole 20 mg PO DAILY ropinirole 0.25 mg PO BEDTIME sodium chloride 0.65% (Deep Sea Nasal) sprays intranasal Q2H PRN triamcinolone acetonide 0.1% appl topical warfarin 2.5 mg See Protocol PO DAILY Nursing Note INR 1.8-? out of therapeutic range of 2-3 pt using med minder, unsure if missed a dose Medications and supplements reviewed Patient status: c.o leg issues, will notify pcp Medications or supplements: pt states now taking colace daily- no interaction with warfarin per micromedex Diet: same Denies any signs and symptoms of bleeding or clotting or unusual bruising Bleeding, bruising, clotting discussed - denies bleeding Nutritional guidance given: no greens for 2 days, eat reds to raise Dose: 7.5mg today then cont reg - 3.75mg x 2, 5mg x 5 F/U INR Date : 1 week? Patient verbalizing understanding of instructions given. Anti-Coag Initial Assessment Social Hx Patient Tobacco Use Status: Current everyday Tobacco user alcohol intake: never Coding Level of Care Code Est Patient Level 1 Diagnoses Current use of anticoagulant therapy Z79.01 Assessment & Plan Assessment & Plan (1) Current use of anticoagulant therapy: Code(s): Z79.01 - developmental services worker (current) use of anticoagulants Category: Medical Medications: New docusate sodium (Colace) 100 mg PO DAILY
--- OUTSIDE RECORDS SUMMARY | 2025-01-01 08:46 | XMS_ITS | Clinical Summary ---
Author Organization 175 [facility] Address [address] [place] [address] Phone Care Team Providers Care Head Worker Name Role Phone Sahra Son MD Primary Care Provider + Encounters Date Type Department Care Team Description 11/15/2024 Telephone Gastroenterology - [place] 175 [facility] 175 [facility] [address] [place] [address] Jc Guerrier MD appointment from Last 3 Months Surgical History Surgery Date Site/Laterality Comments OTHER SURGICAL HISTORY 1975 PROCEDURE: [place] ECTOPIC ABDOMINAL/VAGINAL APPR PARTIAL HYSTERECTOMY PROCEDURE: [place] SUPRACERVICAL ABDL HYSTER W/WO RMVL TUBE OVARY CHOLECYSTECTOMY 1982 PROCEDURE: HISTORICAL CHOLECYSTECTOMY CARPAL TUNNEL RELEASE 11/21/2014 Left PROCEDURE: HISTORICAL CARPAL TUNNEL REL BOWEL RESECTION 03/2004 PROCEDURE: HISTORICAL BOWEL RESECTION; COMMENT: bowel obstruction Medical History Medical History Date Comments Diverticulosis DX:Diverticulosi s CHF (congestive heart failur e) ([facility] V24, [facility] V28) DX:CHF (congestive heart fa ilure) ([facility]) COPD (chronic obstructive pu lmonary disease) ([facility], [facility] V28) DX:COPD (chronic o bstructive pulmonary disease) ([facility]) Osteoporosis DX:Osteoporosis Fibromyalgia DX:Fibromyalgia Myelofibrosis ([facility] V24, [facility] V28) DX:Myelofibrosis ([facility]); COMM ENT: diagnosed 8 years ago, follows with DR layne Meningioma ([facility] [place], [facility] V28) DX:Meningioma ([facility]) Asthma DX:Asthma Gout DX:Gout Seizures ([facility] V24, [facility] V28) DX:Seizures ([facility]) Lupus DX:Lupus Depression DX:Depression; C OMMENT: follows at [facility] net at [place] [address] Gann Hypercoagulable state ([facility] V24) DX:Hypercoagulable state (HCC); COMMENT: on coumadin Neurogenic bladder DX:Neurogenic bladder; COMMENT: flowers dependent Supplemental oxygen dependent DX :Supplemental oxygen dependent Lung nodule 03/22/2017 DX:Lung nodule ALESSANDRA (obstructive sleep apnea) 03/22/2017 DX :ALESSANDRA (obstructive sleep apnea) GERD (gastroesophageal reflux disease) 03/22/2017 DX:GERD (gastroesophageal reflux disease) Anxiety 03/22/2017 DX:Anxiety Dementia ([facility] V[facility], [facility] V28) 03/22/2017 DX:Dementia (HCC) Schizophrenia ([facility] V24, [facility] V28) 03/22/2017 DX:Schizophrenia ([facility]) Glaucoma 03/22/2017 DX:Glaucoma History of stroke DX:History of stroke History of deep vein thrombosis DX:History of deep vein thrombosis Coronary artery disease DX:Coron christine artery disease; COMMENT: Old [place] Diabetes mellitus type 2 wit h neurological manifestations ([facility] V24, [facility] V28) DX:Diabetes mellitus type 2 with neurological manifestations ([facility]) Leukemia ([facility] V24, [facility] V28) 09/02/2017 DX:Leukemia ([facility]) MDS (myelodysplastic syndrom e) ([facility] V[facility], [facility] V28) 09/02/2017 DX:MDS (myelodysplastic syn drome) ([facility]) Hyperthyroidism 09/02/2017 DX:Hyperthyroidi sm History [...] 02/08/2025 9:10 AM EDT Consult Gastroenterology - [place] [address] 175 [facility] [address] [place] [phone] Deloris Vickers PA 175 [facility] [address] [place] [address] Health Maintenance Due Date Last Done Comments [...] patient's age to complete this topic Insurance [facility] Member Subscriber Plan / Payer (Ef fective for All Dates) Name:Jennifer Schulz Relation to Subscriber:Self Name:Jennifer Schulz Payer ID:[id number] Group ID:[id number] Type:Not on file Address: [place] [address] [place] [phone] Care Teams Head Worker Relationship Specialty Start Date End Date Sahra Son MD [address] [place] [phone] PCP - General Internal Medicine 11/15/24
--- OUTSIDE RECORDS SUMMARY | 2025-01-01 08:46 | XMS_ITS | Encounter Summary ---
Author Organization [facility], Address [address] [place] [address] Phone Care Team Providers Care Quality Checker Name Role Phone Sahra Son MD Primary Care Provider + Encounter Details Date Type Department Care Team (Late st Contact Info) Description 06/18/2021 Documentation Only [facility], [address] [place] [address] India Davalos [address] [place] [address] Social History Tobacco Use Types [...] filedocumented in this encounter Care Teams Quality Checker Relationship Specialty Start Date End Date Sahra Son MD [address] [address] PCP - General Internal Medicine 10/28/22 documented as of this encounter
--- OUTSIDE RECORDS SUMMARY | 2025-01-01 08:46 | XMS_ITS | Clinical Summary ---
Author Organization [facility] Address [address] [place] [address] Care Team Providers Care Cattle Killer Name Role Phone Geovani Natalie Carmelo ESPARZA Primary Care Provider [phone] Allergies Active Allergy Reactions Criticality Noted Date [...] 1 10/04/2016 Active ergocalciferol (VITAMIN D2) capsule 86138 units TK ONE C PO TWICE A [...] times a day. 0 04/27/2022 Active pancrelipase, Mka-Acfh-Jcku, (Creon) 65[address] units CPEP TK ONE C PO TID [...] age to complete this topic Care Teams Cattle Killer Relationship Specialty Start Date End Date Natalie Olivo APRN [address] [place] [address] PCP - General Buffing Machine Tender 04/30/22
== END 2025-01-01 08:45 | disposition home or self-care (01) ==
LOC: HO.ACS 08:24
PROVIDERS: PCP Internal Medicine; Visit Provider Internal Medicine Medical Oncology
DX: Z79.01 Long term (current) use of anticoagulants (principal)

== ENCOUNTER → 2025-01-01 08:24 | Outpatient (BNVA) | payer OTHER, SELFPAY | PROVIDERS: PCP Internal Medicine; Visit Provider Internal Medicine Medical Oncology | DX: Z86.718 Personal history of other venous thrombosis and embolism (principal); Z79.01 Long term (current) use of anticoagulants; Z51.81 Encounter for therapeutic drug level monitoring | CPT/HCPCS: 85610; 99211 ==

== ENCOUNTER 2025-01-08 08:37 | Outpatient (AMB) | payer OTHER, SELFPAY ==
--- OUTSIDE RECORDS SUMMARY | 2025-01-08 09:03 | XMS_ITS | Clinical Summary ---
Author Organization 175 [facility] Address [address] [place] [address] Phone Care Team Providers Care Honest John Rocket Crew Member Name Role Phone Sahra Son MD Primary Care Provider + Encounters Date Type Department Care Team Description 11/15/2024 Telephone Gastroenterology - [place] 175 [facility] 175 [facility] [address] [place] [address] Jc Guerrier MD appointment from Last 3 Months Surgical History Surgery Date Site/Laterality Comments OTHER SURGICAL HISTORY 1975 PROCEDURE: [place] TX ECTOPIC ABDOMINAL/VAGINAL APPR PARTIAL HYSTERECTOMY PROCEDURE: [place] SUPRACERVICAL ABDL HYSTER W/WO RMVL TUBE OVARY CHOLECYSTECTOMY 1982 PROCEDURE: HISTORICAL CHOLECYSTECTOMY CARPAL TUNNEL RELEASE 11/21/2014 Left PROCEDURE: HISTORICAL CARPAL TUNNEL REL BOWEL RESECTION 03/2004 PROCEDURE: HISTORICAL BOWEL RESECTION; COMMENT: bowel obstruction Medical History Medical History Date Comments Diverticulosis DX:Diverticulosi s CHF (congestive heart failur e) ([facility] V24, [facility] V28) DX:CHF (congestive heart fa ilure) ([facility]) COPD (chronic obstructive pu lmonary disease) ([facility] V24, [facility] V28) DX:COPD (chronic o bstructive pulmonary disease) ([facility]) Osteoporosis DX:Osteoporosis Fibromyalgia DX:Fibromyalgia Myelofibrosis ([facility] V24, [facility] V28) DX:Myelofibrosis ([facility]); COMM ENT: diagnosed 8 years ago, follows with DR layne Meningioma ([facility] V24, [facility] V28) DX:Meningioma ([facility]) Asthma DX:Asthma Gout DX:Gout Seizures ([facility] V24, [facility] V28) DX:Seizures ([facility]) Lupus DX:Lupus Depression DX:Depression; C OMMENT: follows at [facility] net at [place] [address] Gann Hypercoagulable state ([facility] V24) DX:Hypercoagulable state (HCC); COMMENT: on coumadin Neurogenic bladder DX:Neurogenic bladder; COMMENT: flowers dependent Supplemental oxygen dependent DX :Supplemental oxygen dependent Lung nodule 03/22/2017 DX:Lung nodule ALESSANDRA (obstructive sleep apnea) 03/22/2017 DX :ALESSANDRA (obstructive sleep apnea) GERD (gastroesophageal reflux disease) 03/22/2017 DX:GERD (gastroesophageal reflux disease) Anxiety 03/22/2017 DX:Anxiety Dementia ([facility] V24, [facility] V28) 03/22/2017 DX:Dementia (HCC) Schizophrenia ([facility] V24, [facility] V28) 03/22/2017 DX:Schizophrenia ([facility]) Glaucoma 03/22/2017 DX:Glaucoma History of stroke DX:History of stroke History of deep vein thrombosis DX:History of deep vein thrombosis Coronary artery disease DX:Coron christine artery disease; COMMENT: Old MS Diabetes mellitus type 2 wit h neurological manifestations ([facility] V24, [facility] V28) DX:Diabetes mellitus type 2 with neurological manifestations ([facility]) Leukemia ([facility] V24, [facility] V28) 09/02/2017 DX:Leukemia ([facility]) MDS (myelodysplastic syndrom e) ([facility] V24, [facility] V28) 09/02/2017 DX:MDS (myelodysplastic syn drome) ([facility]) Hyperthyroidism 09/02/2017 DX:Hyperthyroidi sm History [...] 02/08/2025 9:10 AM EDT Consult Gastroenterology - [place] [address] [place] 175 [facility] [address] [place] [id number] Deloris Vickers PA 175 [facility] [address] [place] [address] Health Maintenance Due Date Last Done Comments [...] patient's age to complete this topic Insurance [facility] Member Subscriber Plan / Payer (Ef fective for All Dates) Name:Jennifer Schulz Relation to Subscriber:Self Name:Jennifer Schulz Payer ID:[id number] Group ID:[id number] Type:Not on file Address: [place] [address] [place] [address] Care Teams Honest John Rocket Crew Member Relationship Specialty Start Date End Date Sahra Son MD [address] [place] [address] PCP - General Internal Medicine 11/15/24
--- OUTSIDE RECORDS SUMMARY | 2025-01-08 09:03 | XMS_ITS | Clinical Summary ---
Author Organization [facility] Address [address] [place] [address] Care Team Providers Care Burrer Operator Name Role Phone Geovani Natalie Carmelo ESPARZA Primary Care Provider [phone] Allergies Active Allergy Reactions Criticality Noted Date [...] 1 10/04/2016 Active ergocalciferol (VITAMIN D2) capsule 80158 units TK ONE C PO TWICE A [...] times a day. 0 04/27/2022 Active pancrelipase, Dkw-Pjdd-Ljsj, (Creon) 06245[address] units CPEP TK ONE C PO TID [...] age to complete this topic Care Teams Burrer Operator Relationship Specialty Start Date End Date Natalie Olivo APRN [address] [place] [address] PCP - General Chief Recordist 04/30/22
--- OUTSIDE RECORDS SUMMARY | 2025-01-08 09:03 | XMS_ITS | Encounter Summary ---
Author Organization [facility], Address [address] [place] [address] Phone Care Team Providers Care Customs Verifier Name Role Phone Sahra Son MD Primary Care Provider + Encounter Details Date Type Department Care Team (Late st Contact Info) Description 06/18/2021 Documentation Only [facility], [address] [place] [address] India Davalos [address] [place] [address] Social History Tobacco Use Types [...] on filedocumented in this encounter Care Teams Customs Verifier Relationship Specialty Start Date End Date Sahra Son MD [address] [address] PCP - General Internal Medicine 10/28/22 documented as of this encounter
[2025-01-08 09:07] LABS: Prothrombin Time Whole Bld POC 31.3 sec (11.1-13.5); ~PT, ~INR - Anti Coag Clinic 2.6 (0.9-1.1)
--- NOTE | 2025-01-08 09:15 | MHC.OFFVISCO ---
Intake Intake Visit Reasons: Anticoagulation Allergies codeine (Codeine) Allergy (Severe, Verified 01/08/25 08:57) DIFFICULTY BREATHING Penicillins Allergy (Severe, Verified 01/08/25 08:57) RASH penicillin V Allergy (Intermediate, Verified 01/08/25 08:57) RASH tramadol (Ultram) Allergy (Unknown, Verified 01/08/25 08:57) hallucinations Shellfish Allergy (Severe, Uncoded 01/08/25 08:57) THROAT SWELLING Contrast Allergy PreMed Pack Allergy (Unknown, Uncoded 01/08/25 08:57) TREAT WITH BENADRYL ferrlecit Adverse Reaction (Intermediate, Uncoded 01/01/25 08:26) Rash Medication List - Last Reconciled 01/08/25 by Tangela Sam RN alcohol swabs 2 pad topical DAILY blood sugar diagnostic As directed budesonide (Pulmicort) 0.25 mg inhalation BID clonidine HCl 0.1 mg PO BID dapagliflozin propanediol (Farxiga) 5 mg PO DAILY divalproex ER 250 mg PO BID docusate sodium (Colace) 100 mg PO DAILY duloxetine (Cymbalta) 30 mg PO DAILY duloxetine 60 mg PO QAM epoetin marj (Procrit) 2,000 units subcut 3XW hydrocortisone 2.5% appl topical ipratropium-albuterol 0.5 mg-3 mg(2.5 mg base)/3 mL mL inhalation ipratropium-albuterol 20-100 mcg/actuation 1 puff PO QID ipratropium-albuterol 20-100 mcg/actuation (Combivent Respimat) 1 puff inhalation Q4H lancets As directed lancets As directed latanoprost 0.005% drps ophthalmic (eye) lidocaine 4% (Lidocaine Pain Relief) 1 patch topical DAILY PRN linaclotide (Linzess) 145 mcg PO DAILY linagliptin (Tradjenta) 5 mg PO DAILY okbcgm-mapglgub-etkdepw 24,000-76,000 -120,000 unit (Creon) 1 cap PO TID loratadine 10 mg PO DAILY PRN lorazepam 1 mg PO BID meclizine mg PO montelukast 10 mg PO BEDTIME nifedipine ER 30 mg PO DAILY nitroglycerin 0.4 mg sublingual Q5M PRN nystatin 1 appl topical DAILY PRN ondansetron 4 mg PO Q8H PRN oxcarbazepine (Trileptal) 150 mg PO Q12H 30 days quetiapine 200 mg PO BEDTIME rabeprazole 20 mg PO DAILY ropinirole 0.25 mg PO BEDTIME rosuvastatin 40 mg PO DAILY sodium chloride 0.65% (Deep Sea Nasal) sprays intranasal Q2H PRN triamcinolone acetonide 0.1% appl topical warfarin 2.5 mg See Protocol PO DAILY Nursing Note INR: 2.6 in therapeutic range Medications and supplements reviewed Pt to have all bottom teeth removed- all are broken at gum line - date to be determined post cardiac clearance and atbx Denies any signs and symptoms of bleeding or bruising or clotting. Bleeding, bruising, clotting discussed Nutritional guidance given Dose: keep same for now 3.75mg x 2 days / 5mg x 5 days F/U INR: 1 1/2 weeks Patient verbalizes understanding of instructions given Anti-Coag Initial Assessment Social Hx Patient Tobacco Use Status: Current everyday Tobacco user alcohol intake: never Coding Level of Care Code Est Patient Level 1 Diagnoses Current use of anticoagulant therapy Z79.01 Assessment & Plan Assessment & Plan (1) Current use of anticoagulant therapy: Code(s): Z79.01 - [facility] (current) use of anticoagulants Category: Medical
== END 2025-01-08 09:18 | disposition home or self-care (01) ==
LOC: HO.ACS 08:37
PROVIDERS: PCP Internal Medicine; Visit Provider Internal Medicine Medical Oncology
DX: Z79.01 Long term (current) use of anticoagulants (principal)

== ENCOUNTER → 2025-01-08 08:37 | Outpatient (BNVA) | payer OTHER, SELFPAY | PROVIDERS: PCP Internal Medicine; Visit Provider Internal Medicine Medical Oncology | DX: Z86.718 Personal history of other venous thrombosis and embolism (principal); Z79.01 Long term (current) use of anticoagulants; Z51.81 Encounter for therapeutic drug level monitoring | CPT/HCPCS: 85610; 99211 ==

== ENCOUNTER 2025-01-19 08:57 | Outpatient (AMB) | payer OTHER, SELFPAY ==
--- NOTE | 2025-01-19 09:04 | MHC.OFFVISCO ---
Intake Intake Visit Reasons: Anticoagulation Allergies codeine (Codeine) Allergy (Severe, Verified 01/19/25 08:59) DIFFICULTY BREATHING Penicillins Allergy (Severe, Verified 01/19/25 08:59) RASH penicillin V Allergy (Intermediate, Verified 01/19/25 08:59) RASH tramadol (Ultram) Allergy (Unknown, Verified 01/19/25 08:59) hallucinations Shellfish Allergy (Severe, Uncoded 01/19/25 08:59) THROAT SWELLING Contrast Allergy PreMed Pack Allergy (Unknown, Uncoded 01/19/25 08:59) TREAT WITH BENADRYL ferrlecit Adverse Reaction (Intermediate, Uncoded 01/19/25 08:59) Rash Medication List - Last Reconciled 01/19/25 by Barbara Lr RN alcohol swabs 2 pad topical DAILY blood sugar diagnostic As directed budesonide (Pulmicort) 0.25 mg inhalation BID clonidine HCl 0.1 mg PO BID dapagliflozin propanediol (Farxiga) 5 mg PO DAILY divalproex ER 250 mg PO BID docusate sodium (Colace) 100 mg PO DAILY duloxetine (Cymbalta) 30 mg PO DAILY duloxetine 60 mg PO QAM epoetin marj (Procrit) 2,000 units subcut 3XW hydrocortisone 2.5% appl topical insulin glargine (Lantus Solostar U-100 Insulin) 5 units subcut DAILY ipratropium-albuterol 0.5 mg-3 mg(2.5 mg base)/3 mL mL inhalation ipratropium-albuterol 20-100 mcg/actuation 1 puff PO QID ipratropium-albuterol 20-100 mcg/actuation (Combivent Respimat) 1 puff inhalation Q4H lancets As directed lancets As directed latanoprost 0.005% drps ophthalmic (eye) lidocaine 4% (Lidocaine Pain Relief) 1 patch topical DAILY PRN linaclotide (Linzess) 145 mcg PO DAILY linagliptin (Tradjenta) 5 mg PO DAILY lrkinj-ktjcgrkx-lzwblox 24,000-76,000 -120,000 unit (Creon) 1 cap PO TID loratadine 10 mg PO DAILY PRN lorazepam 1 mg PO BID meclizine mg PO montelukast 10 mg PO BEDTIME nifedipine ER 30 mg PO DAILY nitroglycerin 0.4 mg sublingual Q5M PRN nystatin 1 appl topical DAILY PRN ondansetron 4 mg PO Q8H PRN oxcarbazepine (Trileptal) 150 mg PO Q12H 30 days quetiapine 200 mg PO BEDTIME rabeprazole 20 mg PO DAILY ropinirole 0.25 mg PO BEDTIME rosuvastatin 40 mg PO DAILY sodium chloride 0.65% (Deep Sea Nasal) sprays intranasal Q2H PRN triamcinolone acetonide 0.1% appl topical warfarin 2.5 mg See Protocol PO DAILY Nursing Note INR 1.6-? out of therapeutic range of 2-3 pt unsure if missed doses Medications and supplements reviewed Patient status: c.o muscle discomfort, amb without assistive device pt states had cardiology w/u by pcp pt states scheduled for dental extraction- several teeth on bottom removed- she states no hold of warfarin per md Medications or supplements: lantus insulin 5units daily Diet: same Denies any signs and symptoms of bleeding or clotting or unusual bruising Bleeding, bruising, clotting discussed - pt states occ hemorrhoidal bleeding at times, hx of Nutritional guidance given: no greens for 2-3 days, eat reds to raise Dose: 7.5mg today, then cont 5mg x 5, 3.75mg x 2 F/U INR Date :1 week?- 01/25/25 prior to proc Patient verbalizing understanding of instructions given. Anti-Coag Initial Assessment Social Hx Patient Tobacco Use Status: Current everyday Tobacco user alcohol intake: never Coding Level of Care Code Est Patient Level 2 Diagnoses Current use of anticoagulant therapy Z79.01 Assessment & Plan Assessment & Plan (1) Current use of anticoagulant therapy: Code(s): Z79.01 - local [employer] (current) use of anticoagulants Category: Medical
[2025-01-19 09:05] LABS: Prothrombin Time Whole Bld POC 19.0 sec (11.1-13.5); ~PT, ~INR - Anti Coag Clinic 1.6 (0.9-1.1)
--- OUTSIDE RECORDS SUMMARY | 2025-01-19 09:33 | XMS_ITS | Encounter Summary ---
Author Organization [facility] Address [address] [place] [address] Phone Care Team Providers Care Grade And Center Marker Name Role Phone Sahra Son MD Primary Care Provider + Encounter Details Date Type Department Care Team (Late st Contact Info) Description 03/03/2024 Orders Only [facility], [address] [place] [address] India Davalos [address] [place] [address] Chronic kidney disease, stage 2 [...] Glucose 152(H) 70 - 99 mg/dL [facility] BUN 16 8 - 27 mg/dL [facility] Creatinine 0.98 0.57 - 1.00 mg/dL [facility] eGFR CKD-EPI CR 2020 64 >59 mL/min/1.7 3 [facility] BUN/Creatinine Ratio 16 12 - 28 [facility] Sodium 137 134 - 144 mmol/L [facility] Potassium 4.8 3.5 - 5.2 mmol/L [facility] Chloride 101 96 - 106 mmol/L [facility] Bicarbonate (CO2) 22 20 - 29 mmol/L [facility] Calcium 8.8 8.7 - 10.3 mg/dL [facility] Albumin 4.0 3.9 - 4.9 g/dL [facility] Phosphorus 4.0 3.0 - 4.3 mg/dL [facility] Blood specimen (specimen) Venous blood / Unknown 03/24/2024 10:37 AM EST 03/24/2024 us Barry Reyes MD LAB BLOOD ORDERABLES Final Re sult [facility] [address] [place] [address] * Ferritin (03/24/2024 10:37 AM EST) Pathologist [facility] Ferritin 37 15 - 150 ng/mL [facility] Blood specimen (specimen) Venous blood / Unknown 03/24/2024 10:37 AM EST 03/24/2024 Barry Reyes MD LAB BLOOD ORDERABLES Final Re sult Performing Organization Address City/[facility]/ZIP Co de Phone Number [facility] [address] [place] [address] * Iron Panel (Fe, TIBC, TSAT) (03/24/2024 10:37 AM EST) [facility] TIBC 293 250 - 450 ug/dL [facility] UIBC 247 118 - 369 ug/dL [facility] Iron 46 27 - 139 ug/dL [facility] Iron Saturation (TSat) 16 15 - 55 % [facility] Blood specimen (specimen) Venous blood / Unknown 03/24/2024 10:37 AM EST 03/24/2024 Barry Reyes MD LAB BLOOD ORDERABLES Final Re sult [facility] [address] [place] [address] * (ABNORMAL) CBC and Differential (03/24/2024 10:37 AM EST) Pathologist [facility] WBC 6.0 3.4 - 10.8 x10E3/uL [facility] RBC 5.21 3.77 - 5.28 x10E6/uL [facility] Hemoglobin 10.0(L) 11.1 - 15.9 g/dL [facility] Hematocrit 35.3 34.0 - 46.6 % [facility] MCV 68(L) 79 - 97 fL [facility] MCH 19.2(L) 26.6 - 33.0 pg [facility] MCHC 28.3(L) 31.5 - 35.7 g/dL [facility] RDW 19.4(H) 11.7 - 15.4 % [facility] Platelets 186 150 - 450 x10E3/uL [facility] Neutrophils Relative 65 Not Estab. % [facility] Lymphocytes Relative 26 Not Estab. % [facility] Monocytes 6 Not Estab. % [facility] Eosinophils Relative 2 Not Estab. % [facility] Basophils Relative 1 Not Estab. % [facility] Neutrophils Absolute 3.9 1.4 - 7.0 x10E3/uL [facility] Lymphocytes Absolute 1.5 0.7 - 3.1 x10E3/uL [facility] Monocytes Absolute 0.3 0.1 - 0.9 x10E3/uL [facility] Eosinophils Absolute 0.1 0.0 - 0.4 x10E3/uL [facility] Basophils Absolute 0.0 0.0 - 0.2 x10E3/uL [facility] Immature Granulocytes 0 Not Estab. % [facility] Immature Grans (Absolute) 0.0 0.0 - 0.1 x10E3/uL [facility] Blood specimen (specimen) Venous blood / Unknown 03/24/2024 10:37 AM EST 03/24/2024 us Barry Reyes MD LAB BLOOD ORDERABLES Final Re sult [facility] [address] [place] [address] documented in this encounter Visit Diagnoses Diagnosis Chronic kidney disease, stage 2 (mild) Anemia in chronic kidney disease Iron deficiency anemia, not otherwise specified documented in this encounter Care Teams Grade And Center Marker Relationship Specialty Start Date End Date Sahra Son MD [address] [place] [address] PCP - General Internal Medicine 10/28/22 documented as of this encounter
--- OUTSIDE RECORDS SUMMARY | 2025-01-19 09:33 | XMS_ITS | Encounter Summary ---
Author Organization [facility], Address [address] [place] [address] Phone Care Team Providers Care Primary Special Education Teacher Name Role Phone Sahra Son MD Primary Care Provider + Encounter Details Date Type Department Care Team (Late st Contact Info) Description 03/22/2024 Documentation Only [facility], [address] [place] [address] India Davalos [address] [place], [place] [...] on filedocumented in this encounter Care Teams Primary Special Education Teacher Relationship Specialty Start Date End Date Sahra Son MD [address] [address] PCP - General Internal Medicine 10/28/22 documented as of this encounter
--- OUTSIDE RECORDS SUMMARY | 2025-01-19 09:33 | XMS_ITS | Encounter Summary ---
Author Organization [facility], Address [address] [place] [address] Phone Care Team Providers Care Technical Training Coordinator Name Role Phone Sahra Son MD Primary Care Provider + Encounter Details Date Type Department Care Team (Late st Contact Info) Description 09/18/2022 Documentation Only [facility], [address] [place] [address] India Davalos [address] [place] [address] Social History Tobacco Use [...] filedocumented in this encounter Care Teams Technical Training Coordinator Relationship Specialty Start Date End Date Sahra Son MD [address] [address] PCP - General Internal Medicine 10/28/22 documented as of this encounter
--- OUTSIDE RECORDS SUMMARY | 2025-01-19 09:33 | XMS_ITS | Encounter Summary ---
Author Organization [facility], Address [address] [place] [address] Phone Care Team Providers Care Dressmaking Teacher Name Role Phone Sahra Son MD Primary Care Provider + Encounter Details Date Type Department Care Team (Late st Contact Info) Description 08/11/2022 Documentation Only [facility], [address] [place] [address] India Davalos [address] [place] [address] Social History Tobacco Use Types [...] on filedocumented in this encounter Care Teams Dressmaking Teacher Relationship Specialty Start Date End Date Sahra Son MD [address] [address] PCP - General Internal Medicine 10/28/22 documented as of this encounter
--- OUTSIDE RECORDS SUMMARY | 2025-01-19 09:33 | XMS_ITS | Encounter Summary ---
Author Organization [facility] Address [address] [place] [address] Phone Care Team Providers Care Card Checker Name Role Phone Sahra Son MD Primary Care Provider + Encounter Details Date Type Department Care Team (Late st Contact Info) Description 12/22/2024 Orders Only [facility], [address] [place] [place] [address] India Davalos [address] [place] [address] Anemia in chronic kidney disease; [...] (mild) documented in this encounter Care Teams Card Checker Relationship Specialty Start Date End Date Sahra Son MD [address] [address] PCP - General Internal Medicine 10/28/22 documented as of this encounter
--- OUTSIDE RECORDS SUMMARY | 2025-01-19 09:33 | XMS_ITS | Encounter Summary ---
Author Organization [facility] Address [address] [place] [address] Phone Care Team Providers Care Domestic Laundry Worker Name Role Phone Sahra Son MD Primary Care Provider + Encounter Details Date Type Department Care Team (Late st Contact Info) Description 02/04/2024 Orders Only [facility] [place], [address] [place] [address] India Davalos [address] [place] [address] Chronic kidney disease, stage 2 [...] Glucose 169(H) 70 - 99 mg/dL [facility] BUN 16 8 - 27 mg/dL [facility] Creatinine 1.00 0.57 - 1.00 mg/dL [facility] eGFR CKD-EPI CR 2020 63 >59 mL/min/1.7 3 [facility] BUN/Creatinine Ratio 16 12 - 28 [facility] Sodium 138 134 - 144 mmol/L [facility] Potassium 4.8 3.5 - 5.2 mmol/L [facility] Chloride 100 96 - 106 mmol/L [facility] Bicarbonate (CO2) 22 20 - 29 mmol/L [facility] Calcium 9.1 8.7 - 10.3 mg/dL [facility] Albumin 4.1 3.9 - 4.9 g/dL [facility] Phosphorus 4.2 3.0 - 4.3 mg/dL [facility] Blood specimen (specimen) Venous blood / Unknown 02/22/2024 8:29 AM EDT 02/22/2024 us Barry Reyes MD LAB BLOOD ORDERABLES Final Re sult [facility] [address] [place] [address] * Ferritin (02/22/2024 8:29 AM EDT) Pathologist [facility] Ferritin 47 15 - 150 ng/mL [facility] Blood specimen (specimen) Venous blood / Unknown 02/22/2024 8:29 AM EDT 02/22/2024 Barry Reyes MD LAB BLOOD ORDERABLES Final Re sult Performing Organization Address City/[facility]/ZIP Co de Phone Number [facility] [address] [place] [address] * (ABNORMAL) Iron Panel (Fe, TIBC, TSAT) (02/22/2024 8:29 AM EDT) Pathologist [facility] Iron 39 27 - 139 ug/dL [facility] TIBC 310 250 - 450 ug/dL [facility] UIBC 271 118 - 369 ug/dL [facility] Iron Saturation (TSat) 13(L) 15 - 55 % [facility] Blood specimen (specimen) Venous blood / Unknown 02/22/2024 8:29 AM EDT 02/22/2024 Barry Reyes MD LAB BLOOD ORDERABLES Final Re sult [facility] [address] [place] [address] * (ABNORMAL) CBC and Differential (02/22/2024 8:29 AM EDT) Pathologist [facility] WBC 5.9 3.4 - 10.8 x10E3/uL [facility] RBC 5.33(H) 3.77 - 5.28 x10E6/uL [facility] Hemoglobin 10.3(L) 11.1 - 15.9 g/dL [facility] Hematocrit 35.1 34.0 - 46.6 % [facility] MCV 66(L) 79 - 97 fL [facility] MCH 19.3(L) 26.6 - 33.0 pg [facility] MCHC 29.3(L) 31.5 - 35.7 g/dL [facility] RDW 19.3(H) 11.7 - 15.4 % [facility] Platelets 174 150 - 450 x10E3/uL [facility] Neutrophils Relative 71 Not Estab. % [facility] Lymphocytes Relative 21 Not Estab. % [facility] Monocytes 5 Not Estab. % [facility] Eosinophils Relative 1 Not Estab. % [facility] Basophils Relative 1 Not Estab. % [facility] Neutrophils Absolute 4.2 1.4 - 7.0 x10E3/uL [facility] Lymphocytes Absolute 1.3 0.7 - 3.1 x10E3/uL [facility] Monocytes Absolute 0.3 0.1 - 0.9 x10E3/uL [facility] Eosinophils Absolute 0.1 0.0 - 0.4 x10E3/uL [facility] Basophils Absolute 0.0 0.0 - 0.2 x10E3/uL [facility] Immature Granulocytes 1 Not Estab. % [facility] Immature Grans (Absolute) 0.0 0.0 - 0.1 x10E3/uL [facility] Blood specimen (specimen) Venous blood / Unknown 02/22/2024 8:29 AM EDT 02/22/2024 us Barry Reyes MD LAB BLOOD ORDERABLES Final Re sult [facility] [address] [place] [id number] documented in this encounter Visit Diagnoses Diagnosis Chronic kidney disease, stage 2 (mild) Anemia in chronic kidney disease Iron deficiency anemia, not otherwise specified documented in this encounter Care Teams Domestic Laundry Worker Relationship Specialty Start Date End Date Sahra Son MD [address] [place] [address] PCP - General Internal Medicine 10/28/22 documented as of this encounter
--- OUTSIDE RECORDS SUMMARY | 2025-01-19 09:33 | XMS_ITS | Encounter Summary ---
Author Organization [facility] [place] [facility], Address [address] [place] [address] Phone Care Team Providers Care Rebrander Name Role Phone Sahra Son MD Primary Care Provider + Encounter Details Date Type Department Care Team (Late st Contact Info) Description 06/22/2022 Documentation Only [facility], [address] [place] [address] India Davalos [address] [place] [address] Social History Tobacco Use Types [...] on filedocumented in this encounter Care Teams Rebrander Relationship Specialty Start Date End Date Sahra Son MD [address] [address] PCP - General Internal Medicine 10/28/22 documented as of this encounter
--- OUTSIDE RECORDS SUMMARY | 2025-01-19 09:33 | XMS_ITS | Encounter Summary ---
Author Organization [facility] [place], Address [address] [place] [address] Phone Care Team Providers Care Admin Asst Name Role Phone Sahra Son MD Primary Care Provider + Encounter Details Date Type Department Care Team (Late st Contact Info) Description 09/28/2022 Documentation Only [facility], [address] [place] [address] India Davalos [address] [place] [address] Social History Tobacco Use Types [...] on filedocumented in this encounter Care Teams Admin Asst Relationship Specialty Start Date End Date Sahra Son MD [address] [address] PCP - General Internal Medicine 10/28/22 documented as of this encounter
--- OUTSIDE RECORDS SUMMARY | 2025-01-19 09:33 | XMS_ITS | Encounter Summary ---
Author Organization [facility] [place], Address [address] [place] [address] Phone Care Team Providers Care Warp Knitter Name Role Phone Sahra Son MD Primary Care Provider + Encounter Details Date Type Department Care Team (Late st Contact Info) Description 06/18/2021 Documentation Only [facility] [place], [address] [place] [address] India Davalos [address] [place] [address] Social History Tobacco Use Types [...] on filedocumented in this encounter Care Teams Warp Knitter Relationship Specialty Start Date End Date Sahra Son MD [address] [address] PCP - General Internal Medicine 10/28/22 documented as of this encounter
--- OUTSIDE RECORDS SUMMARY | 2025-01-19 09:33 | XMS_ITS | Encounter Summary ---
Author Organization [facility], Address [address] [place] [address] Phone Care Team Providers Care Photostat Operator Helper Name Role Phone Sahra Son MD Primary Care Provider + Encounter Details Date Type Department Care Team (Late st Contact Info) Description 06/17/2022 Documentation Only [facility], [address] [place] [address] India Davalos [address] [place] [address] Social History Tobacco Use Types [...] on filedocumented in this encounter Care Teams Photostat Operator Helper Relationship Specialty Start Date End Date Sahra Son MD [address] [address] PCP - General Internal Medicine 10/28/22 documented as of this encounter
--- OUTSIDE RECORDS SUMMARY | 2025-01-19 09:33 | XMS_ITS | Encounter Summary ---
Author Organization [facility] [place], Address [address] [place] [address] Phone Care Team Providers Care Latex Foam Worker Name Role Phone Sahra Son MD Primary Care Provider + Encounter Details Date Type Department Care Team (Late st Contact Info) Description 09/28/2022 Documentation Only [facility], [address] [place] [address] India Davalos [address] [place] [address] Social History Tobacco Use Types [...] on filedocumented in this encounter Care Teams Latex Foam Worker Relationship Specialty Start Date End Date Sahra Son MD [address] [address] PCP - General Internal Medicine 10/28/22 documented as of this encounter
--- OUTSIDE RECORDS SUMMARY | 2025-01-19 09:33 | XMS_ITS | Encounter Summary ---
Author Organization [facility], Address [address] [place] [address] Phone Care Team Providers Care Statistical Reporting Analyst Name Role Phone Sahra Son MD Primary Care Provider + Encounter Details Date Type Department Care Team (Late st Contact Info) Description 06/16/2022 Documentation Only [facility], [address] [place] [address] India Davalos [address] [place] [address] Social History Tobacco Use Types [...] on filedocumented in this encounter Care Teams Statistical Reporting Analyst Relationship Specialty Start Date End Date Sahra Son MD [address] [address] PCP - General Internal Medicine 10/28/22 documented as of this encounter
--- OUTSIDE RECORDS SUMMARY | 2025-01-19 09:33 | XMS_ITS | Encounter Summary ---
Author Organization [facility] [place], Address [address] [place] [address] Phone Care Team Providers Care Peoplesoft Administrator Name Role Phone Sahra Son MD Primary Care Provider + Encounter Details Date Type Department Care Team (Late st Contact Info) Description 09/28/2022 Documentation Only [facility], [address] [place] [address] India Davalos [address] [place] [address] Social History Tobacco Use Types [...] on filedocumented in this encounter Care Teams Peoplesoft Administrator Relationship Specialty Start Date End Date Sahra Son MD [address] [address] PCP - General Internal Medicine 10/28/22 documented as of this encounter
--- OUTSIDE RECORDS SUMMARY | 2025-01-19 09:33 | XMS_ITS | Encounter Summary ---
Author Organization [facility], Address [address] [place] [address] Phone Care Team Providers Care Seafood Process Worker Name Role Phone Sahra Son MD Primary Care Provider + Encounter Details Date Type Department Care Team (Late st Contact Info) Description 07/07/2024 Orders Only [facility], [address] [place] [address] India Davalos [address] [place] [address] Anemia in chronic kidney disease; [...] (mild) documented in this encounter Care Teams Seafood Process Worker Relationship Specialty Start Date End Date Sahra Son MD [address] [id number] PCP - General Internal Medicine 10/28/22 documented as of this encounter
--- OUTSIDE RECORDS SUMMARY | 2025-01-19 09:33 | XMS_ITS | Encounter Summary ---
Author Organization [facility] [place], Address [address] [place] [address] Phone Care Team Providers Care Biology Research Assistant Name Role Phone Sahra Son MD Primary Care Provider + Encounter Details Date Type Department Care Team (Late st Contact Info) Description 03/23/2024 Documentation Only [facility], [address] [place] [address] India Davalos [address] [place] [address] Social History Tobacco Use Types [...] on filedocumented in this encounter Care Teams Biology Research Assistant Relationship Specialty Start Date End Date Sahra Son MD [address] [address] PCP - General Internal Medicine 10/28/22 documented as of this encounter
--- OUTSIDE RECORDS SUMMARY | 2025-01-19 09:33 | XMS_ITS | Encounter Summary ---
Author Organization [facility], Address [address] [place] [address] Phone Care Team Providers Care Lie Detector Operator Name Role Phone Sahra Son MD Primary Care Provider + Encounter Details Date Type Department Care Team (Late st Contact Info) Description 09/28/2022 Documentation Only [facility], [address] [place] [address] India Davalos [address] [place] [address] Social History Tobacco Use Types [...] on filedocumented in this encounter Care Teams Lie Detector Operator Relationship Specialty Start Date End Date Sahra Son MD [address] [address] PCP - General Internal Medicine 10/28/22 documented as of this encounter
--- OUTSIDE RECORDS SUMMARY | 2025-01-19 09:34 | XMS_ITS | Encounter Summary ---
Author Organization [facility] [place], Address [address] [place] [address] Phone Care Team Providers Care Senior Systems Engineer Name Role Phone Sahra Son MD Primary Care Provider + Encounter Details Date Type Department Care Team (Late st Contact Info) Description 11/17/2023 Documentation Only [facility], [address] [place] [address] India Davalos [address] [place] [address] Social History Tobacco Use Types [...] filedocumented in this encounter Care Teams Senior Systems Engineer Relationship Specialty Start Date End Date Sahra Son MD [address] [address] PCP - General Internal Medicine 10/28/22 documented as of this encounter
--- OUTSIDE RECORDS SUMMARY | 2025-01-19 09:34 | XMS_ITS | Encounter Summary ---
Author Organization [facility] [place], Address [address] [place] [address] Phone Care Team Providers Care Farmworker Pullet Farm Name Role Phone Sahra Son MD Primary Care Provider + Encounter Details Date Type Department Care Team (Late st Contact Info) Description 11/19/2023 Documentation Only [facility] [place], [address] [place] [address] India Davalos [address] [place] [address] Social History Tobacco Use Types [...] on filedocumented in this encounter Care Teams Farmworker Pullet Farm Relationship Specialty Start Date End Date Sahra Son MD [address] [address] PCP - General Internal Medicine 10/28/22 documented as of this encounter
--- OUTSIDE RECORDS SUMMARY | 2025-01-19 09:34 | XMS_ITS | Encounter Summary ---
Author Organization [facility] [place], Address [address] [place] [address] Phone Care Team Providers Care Hand I Thermal Cutter Name Role Phone Sahra Son MD Primary Care Provider + Encounter Details Date Type Department Care Team (Late st Contact Info) Description 11/11/2023 Documentation Only [facility] [place], [address] [place] [address] India Davalos [address] [place] [address] Social History Tobacco Use Types [...] filedocumented in this encounter Care Teams Hand I Thermal Cutter Relationship Specialty Start Date End Date Sahra Son MD [address] [address] PCP - General Internal Medicine 10/28/22 documented as of this encounter
--- OUTSIDE RECORDS SUMMARY | 2025-01-19 09:34 | XMS_ITS | Encounter Summary ---
Author Organization [facility], Address [address] [place] [address] Phone Care Team Providers Care Utility Locate Technician Name Role Phone Sahra Son MD Primary Care Provider + Encounter Details Date Type Department Care Team (Late st Contact Info) Description 06/09/2024 Orders Only [facility], [address] [place] [address] India Davalos [address] [place] [address] Anemia in chronic kidney disease; [...] (mild) documented in this encounter Care Teams Utility Locate Technician Relationship Specialty Start Date End Date Sahra Son MD [address] [address] PCP - General Internal Medicine 10/28/22 documented as of this encounter
--- OUTSIDE RECORDS SUMMARY | 2025-01-19 09:34 | XMS_ITS | Encounter Summary ---
Author Organization [facility] [place], Address [address] [place] [address] Phone Care Team Providers Care Teller Vault Name Role Phone Sahra Son MD Primary Care Provider + Encounter Details Date Type Department Care Team (Late st Contact Info) Description 08/25/2024 Documentation Only [facility] [place], [address] [place] [address] India Davalos [address] [place] [address] Social History Tobacco Use Types [...] on filedocumented in this encounter Care Teams Teller Vault Relationship Specialty Start Date End Date Sahra Son MD [address] [address] PCP - General Internal Medicine 10/28/22 documented as of this encounter
--- OUTSIDE RECORDS SUMMARY | 2025-01-19 09:34 | XMS_ITS | Encounter Summary ---
Author Organization [facility] [place], Address [address] [place] [address] Phone Care Team Providers Care Stiff Neck Loader Name Role Phone Sahra Son MD Primary Care Provider + Encounter Details Date Type Department Care Team (Late st Contact Info) Description 11/11/2023 Documentation Only [facility] [place], [address] [place] [address] India Davalos [address] [place] [address] Social History Tobacco Use Types [...] on filedocumented in this encounter Care Teams Stiff Neck Loader Relationship Specialty Start Date End Date Sahra Son MD [address] [address] PCP - General Internal Medicine 10/28/22 documented as of this encounter
--- OUTSIDE RECORDS SUMMARY | 2025-01-19 09:34 | XMS_ITS | Encounter Summary ---
Author Organization [facility], Address [address] [place] [address] Phone Care Team Providers Care Timber Sizer Name Role Phone Sahra Son MD Primary Care Provider + Encounter Details Date Type Department Care Team (Late st Contact Info) Description 08/27/2021 Documentation Only [facility], [address] [place] [address] India Davalos [address] [place] [address] Social History Tobacco Use Types [...] on filedocumented in this encounter Care Teams Timber Sizer Relationship Specialty Start Date End Date Sahra Son MD [address] [address] PCP - General Internal Medicine 10/28/22 documented as of this encounter
--- OUTSIDE RECORDS SUMMARY | 2025-01-19 09:34 | XMS_ITS | Encounter Summary ---
Author Organization [facility] [place], Address [address] [place] [address] Phone Care Team Providers Care Hotel Dining Room Cashier Name Role Phone Sahra Son MD Primary Care Provider + Encounter Details Date Type Department Care Team (Late st Contact Info) Description 07/16/2023 Documentation Only [facility] [place], [address] [place] [address] India Davalos [address] [place] [address] Social History Tobacco Use Types [...] filedocumented in this encounter Care Teams Hotel Dining Room Cashier Relationship Specialty Start Date End Date Sahra Son MD [address] [address] PCP - General Internal Medicine 10/28/22 documented as of this encounter
--- OUTSIDE RECORDS SUMMARY | 2025-01-19 09:34 | XMS_ITS | Encounter Summary ---
Author Organization [facility], Address [address] [place] [address] Phone Care Team Providers Care Returns Clerk Name Role Phone Sahra Son MD Primary Care Provider + Encounter Details Date Type Department Care Team (Late st Contact Info) Description 01/29/2023 Documentation Only [facility], [address] [place] [address] India Davalos [address] [place] [address] Social History Tobacco Use Types [...] on filedocumented in this encounter Care Teams Returns Clerk Relationship Specialty Start Date End Date Sahra Son MD [address] [address] PCP - General Internal Medicine 10/28/22 documented as of this encounter
--- OUTSIDE RECORDS SUMMARY | 2025-01-19 09:34 | XMS_ITS | Encounter Summary ---
Author Organization [facility], Address [address] [place] [address] Phone Care Team Providers Care Lunch Cook Name Role Phone Sahra Son MD Primary Care Provider + Encounter Details Date Type Department Care Team (Late st Contact Info) Description 12/31/2023 Documentation Only [facility], [address] [place] [address] India Davalos [address] [place] [address] Social History Tobacco Use Types [...] on filedocumented in this encounter Care Teams Lunch Cook Relationship Specialty Start Date End Date Sahra Son MD [address] [address] PCP - General Internal Medicine 10/28/22 documented as of this encounter
--- OUTSIDE RECORDS SUMMARY | 2025-01-19 09:34 | XMS_ITS | Encounter Summary ---
Author Organization [facility], Address [address] [place] [address] Phone Care Team Providers Care Automobile Service Writer Name Role Phone Sahra Son MD Primary Care Provider + Encounter Details Date Type Department Care Team (Late st Contact Info) Description 01/06/2022 Documentation Only [facility], [address] [place] [address] Juan Jose Li MD [address] [facility] [place] [address] Social History Tobacco Use [...] filedocumented in this encounter Care Teams Automobile Service Writer Relationship Specialty Start Date End Date Sahra Son MD [address] [address] PCP - General Internal Medicine 10/28/22 documented as of this encounter
--- OUTSIDE RECORDS SUMMARY | 2025-01-19 09:34 | XMS_ITS | Encounter Summary ---
Author Organization [facility], Address [address] [place] [address] Phone Care Team Providers Care Social Services Counselor Name Role Phone Sahra Son MD Primary Care Provider + Encounter Details Date Type Department Care Team (Late st Contact Info) Description 03/11/2023 Documentation Only [facility], [address] [place] [address] India Davalos [address] [place] [address] Social History Tobacco Use Types [...] filedocumented in this encounter Care Teams Social Services Counselor Relationship Specialty Start Date End Date Sahra Son MD [address] [address] PCP - General Internal Medicine 10/28/22 documented as of this encounter
--- OUTSIDE RECORDS SUMMARY | 2025-01-19 09:34 | XMS_ITS | Encounter Summary ---
Author Organization [facility], Address [address] [place] [address] Phone Care Team Providers Care Designated Broker Name Role Phone Sahra Son MD Primary Care Provider + Encounter Details Date Type Department Care Team (Late st Contact Info) Description 12/23/2021 Documentation Only [facility], [address] [facility] [place] [address] Juan Jose Li MD [address] [facility] [place] [address] Social History Tobacco Use Types [...] on filedocumented in this encounter Care Teams Designated Broker Relationship Specialty Start Date End Date Sahra Son MD [address] [address] PCP - General Internal Medicine 10/28/22 documented as of this encounter
--- OUTSIDE RECORDS SUMMARY | 2025-01-19 09:34 | XMS_ITS | Encounter Summary ---
Author Organization [facility] [place], Address [address] [place] [address] Phone Care Team Providers Care Otr [employer] Truck Driver Name Role Phone Sahra Son MD Primary Care Provider + Encounter Details Date Type Department Care Team (Late st Contact Info) Description 03/11/2023 Documentation Only [facility], [address] [place] [address] India Davalos [address] [place] [address] Social History Tobacco Use Types [...] on filedocumented in this encounter Care Teams Otr [employer] Truck Driver Relationship Specialty Start Date End Date Sahra Son MD [address] [address] PCP - General Internal Medicine 10/28/22 documented as of this encounter
--- OUTSIDE RECORDS SUMMARY | 2025-01-19 09:34 | XMS_ITS | Encounter Summary ---
Author Organization [facility], Address [address] [place] [address] Phone Care Team Providers Care Box Coverer Hand Name Role Phone Sahra Son MD Primary Care Provider + Encounter Details Date Type Department Care Team (Late st Contact Info) Description 08/28/2024 Documentation Only [facility], [address] [place] [address] India Davalos [address] [place] [address] Social History Tobacco Use Types [...] filedocumented in this encounter Care Teams Box Coverer Hand Relationship Specialty Start Date End Date Sahra Son MD [address] [address] PCP - General Internal Medicine 10/28/22 documented as of this encounter
--- OUTSIDE RECORDS SUMMARY | 2025-01-19 09:34 | XMS_ITS | Encounter Summary ---
Author Organization [facility], Address [address] [place] [address] Phone Care Team Providers Care Firefighter Name Role Phone Sahra Son MD Primary Care Provider + Encounter Details Date Type Department Care Team (Late st Contact Info) Description 03/11/2023 Documentation Only [facility], [address] [place] [address] India Davalos [address] [place] [address] Social History Tobacco Use [...] on filedocumented in this encounter Care Teams Firefighter Relationship Specialty Start Date End Date Sahra Son MD [address] [address] PCP - General Internal Medicine 10/28/22 documented as of this encounter
--- OUTSIDE RECORDS SUMMARY | 2025-01-19 09:34 | XMS_ITS | Encounter Summary ---
Author Organization [facility], Address [address] [place] [address] Phone Care Team Providers Care Gyro Mechanic Name Role Phone Sahra Son MD Primary Care Provider + Encounter Details Date Type Department Care Team (Late st Contact Info) Description 01/31/2024 Orders Only [facility], [address] [place] [address] Arlene Alston, EMMA [address] [place] [address] Chronic kidney disease, stage 2 [...] (HCC) documented in this encounter Care Teams Gyro Mechanic Relationship Specialty Start Date End Date Sahra Son MD [address] [facility] [address] [place], [place] [id number] PCP - General Internal Medicine 10/28/22 documented as of this encounter
--- OUTSIDE RECORDS SUMMARY | 2025-01-19 09:34 | XMS_ITS | Encounter Summary ---
Author Organization [facility] Address [address] [place] [address] Phone Care Team Providers Care Plastic Eye Technician Name Role Phone Sahra Son MD Primary Care Provider + Encounter Details Date Type Department Care Team (Late st Contact Info) Description 08/18/2024 Orders Only [facility], [address] [place] [address] India Davalos [address] [place] [address] Chronic kidney disease, stage [...] specified documented in this encounter Care Teams Plastic Eye Technician Relationship Specialty Start Date End Date Sahra Son MD [address] [address] PCP - General Internal Medicine 10/28/22 documented as of this encounter
--- OUTSIDE RECORDS SUMMARY | 2025-01-19 09:34 | XMS_ITS | Encounter Summary ---
Author Organization [facility], Address [address] [place] [address] Phone Care Team Providers Care Textile Science Technician Name Role Phone Sahra Son MD Primary Care Provider + Encounter Details Date Type Department Care Team (Late st Contact Info) Description 11/11/2023 Documentation Only [facility], [address] [place] [address] India Davalos [address] [place] [address] Social History Tobacco Use Types [...] on filedocumented in this encounter Care Teams Textile Science Technician Relationship Specialty Start Date End Date Sahra Son MD [address] [address] PCP - General Internal Medicine 10/28/22 documented as of this encounter
--- OUTSIDE RECORDS SUMMARY | 2025-01-19 09:34 | XMS_ITS | Encounter Summary ---
Author Organization [facility], Address [address] [place] [address] Phone Care Team Providers Care Tangled Yarn Worker Name Role Phone Sahra Son MD Primary Care Provider + Encounter Details Date Type Department Care Team (Late st Contact Info) Description 08/11/2022 Documentation Only [facility], [address] [place] [address] India Davalos [address] [place] [address] Social History Tobacco Use Types [...] on filedocumented in this encounter Care Teams Tangled Yarn Worker Relationship Specialty Start Date End Date Sahra Son MD [address] [address] PCP - General Internal Medicine 10/28/22 documented as of this encounter
--- OUTSIDE RECORDS SUMMARY | 2025-01-19 09:34 | XMS_ITS | Encounter Summary ---
Author Organization [facility], Address [address] [place] [address] Phone Care Team Providers Care Wedding Coordinator Name Role Phone Sahra Son MD Primary Care Provider + Encounter Details Date Type Department Care Team (Late st Contact Info) Description 11/11/2023 Documentation Only [facility], [address] [place] [address] India Davalos [address] [place] [address] Social History Tobacco Use Types [...] on filedocumented in this encounter Care Teams Wedding Coordinator Relationship Specialty Start Date End Date Sahra Son MD [address] [address] PCP - General Internal Medicine 10/28/22 documented as of this encounter
--- OUTSIDE RECORDS SUMMARY | 2025-01-19 09:34 | XMS_ITS | Encounter Summary ---
Author Organization [facility], Address [address] [place] [address] Phone Care Team Providers Care Hospital Technician Name Role Phone Sahra Son MD Primary Care Provider + Encounter Details Date Type Department Care Team (Late st Contact Info) Description 11/11/2023 Documentation Only [facility], [address] [place] [address] India Davalos [address] [place] [address] Social History Tobacco Use Types [...] filedocumented in this encounter Care Teams Hospital Technician Relationship Specialty Start Date End Date Sahra Son MD [address] [address] PCP - General Internal Medicine 10/28/22 documented as of this encounter
--- OUTSIDE RECORDS SUMMARY | 2025-01-19 09:34 | XMS_ITS | Encounter Summary ---
Author Organization [facility], Address [address] [place] [address] Phone Care Team Providers Care Material Stockkeeper Yard Name Role Phone Sahra Son MD Primary Care Provider + Encounter Details Date Type Department Care Team (Late st Contact Info) Description 01/04/2024 Documentation Only [facility], [address] [place] [address] India Davalos [address] [place] [address] Social History Tobacco Use Types [...] on filedocumented in this encounter Care Teams Material Stockkeeper Yard Relationship Specialty Start Date End Date Sahra Son MD [address] [address] PCP - General Internal Medicine 10/28/22 documented as of this encounter
--- OUTSIDE RECORDS SUMMARY | 2025-01-19 09:34 | XMS_ITS | Encounter Summary ---
Author Organization [facility], Address [address] [place] [address] Phone Care Team Providers Care Field Test Engineer Name Role Phone Sahra Son MD Primary Care Provider + Encounter Details Date Type Department Care Team ([facility] st Contact Info) Description 04/14/2022 Documentation Only [facility], [address] [place] [address] India Davalos [address] [place] [address] Social History Tobacco Use Types [...] filedocumented in this encounter Care Teams Field Test Engineer Relationship Specialty Start Date End Date Sahra Son MD [address] [address] PCP - General Internal Medicine 10/28/22 documented as of this encounter
--- OUTSIDE RECORDS SUMMARY | 2025-01-19 09:34 | XMS_ITS | Encounter Summary ---
Author Organization [facility], Address [address] [place] [address] Phone Care Team Providers Care Net Finisher Name Role Phone Sahra Son MD Primary Care Provider + Encounter Details Date Type Department Care Team ([facility] st Contact Info) Description 04/08/2022 Documentation Only [facility], [address] [place] [address] India Davalos [address] [place] [address] Social History Tobacco Use Types [...] filedocumented in this encounter Care Teams Net Finisher Relationship Specialty Start Date End Date Sahra Son MD [address] [address] PCP - General Internal Medicine 10/28/22 documented as of this encounter
--- OUTSIDE RECORDS SUMMARY | 2025-01-19 09:34 | XMS_ITS | Encounter Summary ---
Author Organization [facility], Address [address] [place] [address] Phone Care Team Providers Care Welfare Manager Name Role Phone Sahra Son MD Primary Care Provider + Encounter Details Date Type Department Care Team (Late st Contact Info) Description 08/09/2023 Documentation Only [facility], [address] [place] [address] India Davalos [address] [place], [...] on filedocumented in this encounter Care Teams Welfare Manager Relationship Specialty Start Date End Date Sahra Son MD [address] [address] PCP - General Internal Medicine 10/28/22 documented as of this encounter
--- OUTSIDE RECORDS SUMMARY | 2025-01-19 09:34 | XMS_ITS | Encounter Summary ---
Author Organization [facility], Address [address] [place] [address] Phone Care Team Providers Care Placement Assistant Name Role Phone Sahra Son MD Primary Care Provider + Encounter Details Date Type Department Care Team (Late st Contact Info) Description 06/09/2023 Documentation Only [facility], [address] [place] [address] India Davalos [address] [place] [address] Social History Tobacco Use Types [...] on filedocumented in this encounter Care Teams Placement Assistant Relationship Specialty Start Date End Date Sahra Son MD [address] [address] PCP - General Internal Medicine 10/28/22 documented as of this encounter
--- OUTSIDE RECORDS SUMMARY | 2025-01-19 09:34 | XMS_ITS | Encounter Summary ---
Author Organization [facility], Address [address] [place] [address] Phone Care Team Providers Care Collar Starcher Name Role Phone Sahra Son MD Primary Care Provider + Encounter Details Date Type Department Care Team (Late st Contact Info) Description 08/22/2021 Documentation Only [facility], [address] [place] [address] India Davalos [address] [place] [address] Social History Tobacco Use Types [...] on filedocumented in this encounter Care Teams Collar Starcher Relationship Specialty Start Date End Date Sahra Son MD [address] [address] PCP - General Internal Medicine 10/28/22 documented as of this encounter
--- OUTSIDE RECORDS SUMMARY | 2025-01-19 09:34 | XMS_ITS | Encounter Summary ---
Author Organization [facility], Address [address] [place] [address] Phone Care Team Providers Care Farm Operator Name Role Phone Sahra Son MD Primary Care Provider + Encounter Details Date Type Department Care Team (Late st Contact Info) Description 11/30/2023 Documentation Only [facility], [address] [place] [address] India Davalos [address] [place], [place] [...] on filedocumented in this encounter Care Teams Farm Operator Relationship Specialty Start Date End Date Sahra Son MD [address] [address] PCP - General Internal Medicine 10/28/22 documented as of this encounter
--- OUTSIDE RECORDS SUMMARY | 2025-01-19 09:34 | XMS_ITS | Encounter Summary ---
Author Organization [facility], Address [address] [place] [address] Phone Care Team Providers Care Personnel Manager Name Role Phone Sahra Son MD Primary Care Provider + Encounter Details Date Type Department Care Team (Late st Contact Info) Description 06/30/2020 Orders Only [facility] [address] [place] [address] Carol Whelan [address] [place] [address] Iron deficiency anemia, not otherwise [...] (mild) documented in this encounter Care Teams Personnel Manager Relationship Specialty Start Date End Date Sahra Son MD [address] [address] PCP - General Internal Medicine 10/28/22 documented as of this encounter
--- OUTSIDE RECORDS SUMMARY | 2025-01-19 09:34 | XMS_ITS | Encounter Summary ---
Author Organization [facility], Address [address] [place] [address] Phone Care Team Providers Care Wet Cotton Feeder Name Role Phone Sahra Son MD Primary Care Provider + Encounter Details Date Type Department Care Team (Late st Contact Info) Description 11/11/2023 Documentation Only [facility], [address] [place] [address] India Davalos [address] [place] [address] Social History Tobacco Use Types [...] filedocumented in this encounter Care Teams Wet Cotton Feeder Relationship Specialty Start Date End Date Sahra Son MD [address] [address] PCP - General Internal Medicine 10/28/22 documented as of this encounter
--- OUTSIDE RECORDS SUMMARY | 2025-01-19 09:34 | XMS_ITS | Encounter Summary ---
Author Organization [facility], Address [address] [place] [address] Phone Care Team Providers Care Industrial Order Clerk Name Role Phone Sahra Son MD Primary Care Provider + Encounter Details Date Type Department Care Team (Late st Contact Info) Description 11/05/2023 Documentation Only [facility], [address] [place] [address] India Davalos [address] [place] [address] Social History Tobacco Use Types [...] filedocumented in this encounter Care Teams Industrial Order Clerk Relationship Specialty Start Date End Date Sahra Son MD [address] [address] PCP - General Internal Medicine 10/28/22 documented as of this encounter
--- OUTSIDE RECORDS SUMMARY | 2025-01-19 09:34 | XMS_ITS | Encounter Summary ---
Author Organization [facility], Address [address] [place] [address] Phone Care Team Providers Care Copy Lathe Operator Name Role Phone Sahra Son MD Primary Care Provider + Encounter Details Date Type Department Care Team (Late st Contact Info) Description 08/05/2023 Documentation Only [facility], [address] [place] [address] India Davalos [address] [place] [address] Social History Tobacco Use Types [...] filedocumented in this encounter Care Teams Copy Lathe Operator Relationship Specialty Start Date End Date Sahra Son MD [address] [address] PCP - General Internal Medicine 10/28/22 documented as of this encounter
--- OUTSIDE RECORDS SUMMARY | 2025-01-19 09:34 | XMS_ITS | Encounter Summary ---
Author Organization [facility], Address [address] [place] [address] Phone Care Team Providers Care Emergency Room Tech Name Role Phone Sahra Son MD Primary Care Provider + Encounter Details Date Type Department Care Team (Late st Contact Info) Description 11/21/2021 Documentation Only [facility], [address] [place] [address] India Davalos [address] [place] [address] Social History Tobacco Use Types [...] filedocumented in this encounter Care Teams Emergency Room Tech Relationship Specialty Start Date End Date Sahra Son MD [address] [address] PCP - General Internal Medicine 10/28/22 documented as of this encounter
--- OUTSIDE RECORDS SUMMARY | 2025-01-19 09:34 | XMS_ITS | Encounter Summary ---
Author Organization [facility], Address [address] [place] [address] Phone Care Team Providers Care Swine Nutritionist Name Role Phone Sahra Son MD Primary Care Provider + Encounter Details Date Type Department Care Team (Late st Contact Info) Description 12/24/2022 Documentation Only [facility], [address] [place] [address] Carol Whelan [address] [place] [address] Social History Tobacco Use Types [...] on filedocumented in this encounter Care Teams Swine Nutritionist Relationship Specialty Start Date End Date Sahra Son MD [address] [address] PCP - General Internal Medicine 10/28/22 documented as of this encounter
--- OUTSIDE RECORDS SUMMARY | 2025-01-19 09:34 | XMS_ITS | Encounter Summary ---
Author Organization [facility], Address [address] [place] [address] Phone Care Team Providers Care Safety And Health Consultant Name Role Phone Sahra Son MD Primary Care Provider + Encounter Details Date Type Department Care Team (Late st Contact Info) Description 10/07/2021 Documentation Only [facility], [address] [place] [address] India Davalos [address] [place] [address] Social History Tobacco Use Types [...] filedocumented in this encounter Care Teams Safety And Health Consultant Relationship Specialty Start Date End Date Sahra Son MD [address] [address] PCP - General Internal Medicine 10/28/22 documented as of this encounter
--- OUTSIDE RECORDS SUMMARY | 2025-01-19 09:34 | XMS_ITS | Encounter Summary ---
Author Organization [facility] Address [address] [place] [address] Phone Care Team Providers Care Senior Contracts Administrator Name Role Phone Sahra Son MD Primary Care Provider + Encounter Details Date Type Department Care Team (Late st Contact Info) Description 05/17/2023 Orders Only [facility] [place], [address] [place] [id number] Arlene Alston PA [address] [place] [address] Chronic kidney disease, stage 2 [...] (Fe, TIBC, TSAT) (06/08/2023 8:36 AM EST) [facility] Iron 49 (30-160) MCG/DL [facility] UIBC 246 (110-370) MCG/DL [facility] TIBC 295 (140-530) MCG/DL [facility] Iron Saturation (TSat) 17(L) (20-55) % [facility] Comment: Testing performed or reported by [facility], a Service of [facility], [address] [place] [address] Luis A Bailey MD, Pipefitter [facility]# [id number] Blood specimen (specimen) Venous blood / Unknown 06/08/2023 8:36 AM EST 06/08/2023 8:39 AM EST Arlene CARTER LAB BLOOD ORDERABLES Final Re sult [facility] * Vitamin D 25 hydroxy (06/08/2023 8:36 AM EST) Vitamin D, 25-Hydroxy 24.8 (20-50) NG/ML [facility] Comment: Testing performed or reported by [facility], a Service of [facility], [address] [place] [address] Luis A Bailey MD, Pipefitter [facility]# [id number] Blood specimen (specimen) Venous blood / Unknown 06/08/2023 8:36 AM EST 06/08/2023 8:39 AM EST Arlene CARTER LAB BLOOD ORDERABLES Final Re sult [facility] * (ABNORMAL) Renal function panel (06/08/2023 8:36 AM EST) Glucose 166(H) (70-99) MG/DL [facility] BUN 19 (8-23) MG/DL [facility] Creatinine 1.0 (0.5-1.0) MG/DL [facility] Sodium 138 (133-145) MMOL/L [facility] Potassium 4.9 (3.6-5.2) MMOL/L [facility] Chloride 101 (98-107) MMOL/L [facility] Bicarbonate (CO2) 27 (22-29) MMOL/L [facility] Anion Gap 10 (4-17) [facility] Albumin 4.2 (3.4-4.8) GM/DL [facility] Calcium 9.1 (8.6-10.5) MG/DL [facility] Phosphorus, Serum 3.4 (2.5-4.5) MG/DL [facility] Est GFR Non 66 ML/MIN/1.7 3 M2 [facility] Comment: Creatinine based estimated glomerular filtration (eGFR) in adults is calculated using the National Kidney Foundation recommended 2020 CKD-EPI equation. Estimates GFR from serum creatinine, age and sex. Testing performed or reported by [facility], a Service of [facility], [address] [place] [address] Luis A Bailey MD, Pipefitter CLIA# [id number] Blood specimen (specimen) Venous blood / Unknown 06/08/2023 8:36 AM EST 06/08/2023 8:39 AM EST Arlene CARTER LAB BLOOD ORDERABLES Final Re sult Performing Organization Address [facility] de Phone Number [facility] * Magnesium (06/08/2023 8:36 AM EST) Magnesium 2.1 (1.6-2.3) mg/dL [facility] Comment: Testing performed or reported by [facility], a Service of [facility], [address] [place] [address] Luis A Bailey MD, Pipefitter CLIA# [id number] Blood specimen (specimen) Venous blood / Unknown 06/08/2023 8:36 AM EST 06/08/2023 8:39 AM EST Arlene CARTER LAB BLOOD ORDERABLES Final Re sult Performing Organization Address [facility] de Phone Number [facility] * (ABNORMAL) Hemoglobin A1c (06/08/2023 8:36 AM EST) Hemoglobin A1C 7.2(H) (4.0-5.6) % [facility] Comment: MONITORING: In known diabetic patients, hemoglobin A1c targets should be discussed with health care provider. DIAGNOSTIC USE: The [place] Diabetes Association (ADA) and the World Health [...] Supplement 1 Testing performed or reported by [facility], a Service of [facility], [address] [place] [address] Luis A Bailey MD, Pipefitter JESSICA# [id number] Blood specimen (specimen) Venous blood / Unknown 06/08/2023 8:36 AM EST 06/08/2023 8:38 AM EST us Arlene CARTER LAB BLOOD ORDERABLES Final Re sult [facility] * (ABNORMAL) CBC and differential (06/08/2023 8:36 AM EST) White Blood Cells 5.2 (4.0-11.0 ) K/MM3 [facility] RBC 5.08 (4.20-5.4 0) M/MM3 [facility] Hgb 10.1(L) (11.7-15. 5) GM/DL [facility] Hematocrit 32.9(L) (35.7-45. 8) % [facility] MCV 64.8(L) (80.0-100 .0) FL [facility] MCH 19.9(L) (27.0-34. 0) PG [facility] MCHC 30.7(L) (33.0-37. 0) g/dL [facility] Platelets 191 (150-460) K/MM3 [facility] RDW-SD 40.3 (<47.0) FL [facility] MPV NOT MEASURED (9.4-12.4 ) [place] [facility] nRBC Count 0.0 #/100 WBC'S [facility] NRBC Absolute 0.0 K/MM3 [facility] Neutrophils Abs Auto 3.5 (1.3-7.0) K/MM3 [facility] Lymphocytes Relative 1.3 (0.8-3.1) K/MM3 [facility] Monocytes 0.3(L) (0.4-0.9) K/MM3 [facility] Eosinophils Relative 0.1 (0.0-0.4) K/MM3 [facility] Basophil ABS 0.0 (0.0-0.1) K/MM3 [facility] Granulocytes Absolute 0.0 K/MM3 [facility] Neutrophils % Auto 67.3 (44-76) % [facility] Lymphs 24.0 (15-43) % [facility] Monocytes Absolute 5.8 (4.5-10.5 ) % [facility] Eosinophils 1.7 (0-6) % [facility] Basophils Relative 0.8 (0-2) % [facility] Immature Granulocytes 0.4 % [facility] Comment: Testing performed or reported by [facility], a Service of [facility], [address] [place] [address] Luis A Bailey MD, Pipefitter [facility]# [id number] Blood specimen (specimen) Venous blood / Unknown 06/08/2023 8:36 AM EST 06/08/2023 8:38 AM EST Arleen CARTER LAB BLOOD ORDERABLES Final Re sult [facility] documented in this encounter Visit Diagnoses Diagnosis Chronic kidney disease, stage 2 (mild) Essential (primary) hypertension Anemia in chronic kidney disease Antiphospholipid syndrome (HCC) Type 2 diabetes mellitus, not otherwise specified (HCC) Bleeding hemorrhoids documented in this encounter Care Teams Senior Contracts Administrator Relationship Specialty Start Date End Date Sahra Son MD [address] [place] [address] PCP - General Internal Medicine 10/28/22 documented as of this encounter
--- OUTSIDE RECORDS SUMMARY | 2025-01-19 09:34 | XMS_ITS | Encounter Summary ---
Author Organization [facility] [place], Address [address] [place] [address] Phone Care Team Providers Care Parts Sales Associate Name Role Phone Sahra Son MD Primary Care Provider + Encounter Details Date Type Department Care Team (Late st Contact Info) Description 07/16/2023 Documentation Only [facility] [place], [address] [place] [address] India Davalos [address] [place] [address] Social History Tobacco Use [...] on filedocumented in this encounter Care Teams Parts Sales Associate Relationship Specialty Start Date End Date Sahra Son MD [address] [address] PCP - General Internal Medicine 10/28/22 documented as of this encounter
--- OUTSIDE RECORDS SUMMARY | 2025-01-19 09:34 | XMS_ITS | Encounter Summary ---
Author Organization [facility] [place], Address [address] [place] [address] Phone Care Team Providers Care Product Support Analyst Name Role Phone Sahra Son MD Primary Care Provider + Encounter Details Date Type Department Care Team (Late st Contact Info) Description 09/15/2024 Orders Only [facility] [place], [address] [place] [address] India Davalos [address] [place] [address] Chronic kidney disease, stage 2 [...] specified documented in this encounter Care Teams Product Support Analyst Relationship Specialty Start Date End Date Sahar Son MD [address] [address] PCP - General Internal Medicine 10/28/22 documented as of this encounter
--- OUTSIDE RECORDS SUMMARY | 2025-01-19 09:34 | XMS_ITS | Encounter Summary ---
Author Organization [facility] [place], Address [address] [place] [address] Phone Care Team Providers Care Personal Banker Name Role Phone Sahra Son MD Primary Care Provider + Encounter Details Date Type Department Care Team (Late st Contact Info) Description 08/24/2024 Documentation Only [facility] [place], [address] [place] [address] India Davalos [address] [place] [address] Social History Tobacco Use Types [...] End Date Sahra Son MD [address] [address] PCP - General Internal Medicine 10/28/22 documented as of this encounter
--- OUTSIDE RECORDS SUMMARY | 2025-01-19 09:35 | XMS_ITS | Clinical Summary ---
Author Organization [facility] Address [address] [place] [address] Care Team Providers Care Canary Breeder Name Role Phone Geovani Natalie Carmelo ESPARZA Primary Care Provider [phone] Allergies Active Allergy Reactions Criticality Noted Date [...] 1 10/04/2016 Active ergocalciferol (VITAMIN D2) capsule 64377 units TK ONE C PO TWICE A [...] times a day. 0 04/27/2022 Active pancrelipase, Mgb-Ajww-Rszx, (Creon) [address] units CPEP TK ONE C PO TID [...] age to complete this topic Care Teams Canary Breeder Relationship Specialty Start Date End Date Natalie Olivo APRN [address] [place] [address] PCP - General Restorative Care Technician 04/30/22
--- OUTSIDE RECORDS SUMMARY | 2025-01-19 09:35 | XMS_ITS | Encounter Summary ---
Author Organization [facility] [place], Address [address] [place] [address] Phone Care Team Providers Care College And Career Counselor Name Role Phone Sahra Son MD Primary Care Provider + Encounter Details Date Type Department Care Team (Late st Contact Info) Description 04/05/2024 Documentation Only [facility] [place], [address] [place] [address] India Davalos [address] [place], [place] [...] filedocumented in this encounter Care Teams College And Career Counselor Relationship Specialty Start Date End Date Sahra Son MD [address] [address] PCP - General Internal Medicine 10/28/22 documented as of this encounter
--- OUTSIDE RECORDS SUMMARY | 2025-01-19 09:35 | XMS_ITS | Encounter Summary ---
Author Organization [facility] Address [address] [place] [address] Phone Care Team Providers Care Roustabout Head Name Role Phone Sahra Son MD Primary Care Provider + Encounter Details Date Type Department Care Team (Late st Contact Info) Description 09/01/2024 Orders Only [facility] [place], [address] [place] [address] India Davalos [address] [place] [address] Anemia in chronic kidney disease; [...] Glucose 233(H) 70 - 99 mg/dL [facility] BUN 15 8 - 27 mg/dL [facility] Creatinine 1.01(H) 0.57 - 1.00 mg/dL [facility] eGFR CKD-EPI CR 2020 62 >59 mL/min/1.7 3 [facility] BUN/Creatinine Ratio 15 12 - 28 [facility] Sodium 138 134 - 144 mmol/L [facility] Potassium 4.9 3.5 - 5.2 mmol/L [facility] Chloride 101 96 - 106 mmol/L [facility] Bicarbonate (CO2) 19(L) 20 - 29 mmol/L [facility] Calcium 9.1 8.7 - 10.3 mg/dL [facility] Albumin 4.2 3.9 - 4.9 g/dL [facility] Phosphorus 3.8 3.0 - 4.3 mg/dL [facility] Blood specimen (specimen) Venous blood / Unknown 09/06/2024 8:15 AM EDT 09/06/2024 us Barry Reyes MD LAB BLOOD ORDERABLES Final Re sult [facility] [address] [place] [address] * Ferritin (09/06/2024 8:15 AM EDT) Pathologist [facility] Ferritin 37 15 - 150 ng/mL [facility] Blood specimen (specimen) Venous blood / Unknown 09/06/2024 8:15 AM EDT 09/06/2024 Barry Reyes MD LAB BLOOD ORDERABLES Final Re sult [facility] [address] [place] [address] * (ABNORMAL) Iron Panel (Fe, TIBC, TSAT) (09/06/2024 8:15 AM EDT) Pathologist [facility] TIBC 323 250 - 450 ug/dL [facility] UIBC 286 118 - 369 ug/dL [facility] Iron 37 27 - 139 ug/dL [facility] Iron Saturation (TSat) 11(L) 15 - 55 % [facility] Blood specimen (specimen) Venous blood / Unknown 09/06/2024 8:15 AM EDT 09/06/2024 Barry Reyes MD LAB BLOOD ORDERABLES Final Re sult [facility] [address] [place] [address] * (ABNORMAL) CBC and Differential (09/06/2024 8:15 AM EDT) Pathologist [facility] WBC 6.3 3.4 - 10.8 x10E3/uL [facility] RBC 5.35(H) 3.77 - 5.28 x10E6/uL [facility] Hemoglobin 10.6(L) 11.1 - 15.9 g/dL [facility] Hematocrit 35.8 34.0 - 46.6 % [facility] MCV 67(L) 79 - 97 fL [facility] MCH 19.8(L) 26.6 - 33.0 pg [facility] MCHC 29.6(L) 31.5 - 35.7 g/dL [facility] RDW 18.4(H) 11.7 - 15.4 % [facility] Platelets 190 150 - 450 x10E3/uL [facility] Neutrophils Relative 67 Not Estab. % [facility] Lymphocytes Relative 22 Not Estab. % [facility] Monocytes 6 Not Estab. % [facility] Eosinophils Relative 3 Not Estab. % [facility] Basophils Relative 1 Not Estab. % [facility] Neutrophils Absolute 4.3 1.4 - 7.0 x10E3/uL [facility] Lymphocytes Absolute 1.4 0.7 - 3.1 x10E3/uL [facility] Monocytes Absolute 0.4 0.1 - 0.9 x10E3/uL [facility] Eosinophils Absolute 0.2 0.0 - 0.4 x10E3/uL [facility] Basophils Absolute 0.1 0.0 - 0.2 x10E3/uL [facility] Immature Granulocytes 1 Not Estab. % [facility] Immature Grans (Absolute) 0.1 0.0 - 0.1 x10E3/uL [facility] Blood specimen (specimen) Venous blood / Unknown 09/06/2024 8:15 AM EDT 09/06/2024 us Barry Reyes MD LAB BLOOD ORDERABLES Final Re sult [facility] [address] [place] [phone] documented in this encounter Visit Diagnoses Diagnosis Anemia in chronic kidney disease Other iron deficiency anemia Chronic kidney disease, stage 2 (mild) documented in this encounter Care Teams Roustabout Head Relationship Specialty Start Date End Date Sahra Son MD [address] [place] [address] PCP - General Internal Medicine 10/28/22 documented as of this encounter
--- OUTSIDE RECORDS SUMMARY | 2025-01-19 09:35 | XMS_ITS | Encounter Summary ---
Author Organization [facility] Address [address] [place] [address] Phone Care Team Providers Care Broaching Machine Repairer Name Role Phone Sahra Son MD Primary Care Provider + Encounter Details Date Type Department Care Team (Late st Contact Info) Description 08/04/2024 Orders Only [facility] [place], [address] [place] [address] India Davalos [address] [place] [address] Anemia in chronic kidney disease; [...] Glucose 168(H) 70 - 99 mg/dL [facility] BUN 15 8 - 27 mg/dL [facility] Creatinine 0.93 0.57 - 1.00 mg/dL [facility] eGFR CKD-EPI CR 2020 69 >59 mL/min/1.7 3 [facility] BUN/Creatinine Ratio 16 12 - 28 [facility] Sodium 139 134 - 144 mmol/L [facility] Chloride 103 96 - 106 mmol/L [facility] Bicarbonate (CO2) 24 20 - 29 mmol/L [facility] Calcium 8.8 8.7 - 10.3 mg/dL [facility] Phosphorus 3.8 3.0 - 4.3 mg/dL [facility] Albumin 4.1 3.9 - 4.9 g/dL [facility] Potassium 4.8 3.5 - 5.2 mmol/L [facility] Blood specimen (specimen) Venous blood / Unknown 08/07/2024 8:15 AM EDT 08/07/2024 us Barry Reyes MD LAB BLOOD ORDERABLES Final Re sult [facility] [address] [place] [address] * Ferritin (08/07/2024 8:15 AM EDT) Pathologist [facility] Ferritin 55 15 - 150 ng/mL [facility] Blood specimen (specimen) Venous blood / Unknown 08/07/2024 8:15 AM EDT 08/07/2024 Barry Reyes MD LAB BLOOD ORDERABLES Final Re sult Performing Organization Address [facility]/ZIP Co de Phone Number [facility] [address] [place] [address] * (ABNORMAL) Iron Panel (Fe, TIBC, TSAT) (08/07/2024 8:15 AM EDT) Pathologist [facility] TIBC 290 250 - 450 ug/dL [facility] UIBC 251 118 - 369 ug/dL [facility] Iron 39 27 - 139 ug/dL [facility] Iron Saturation (TSat) 13(L) 15 - 55 % [facility] Blood specimen (specimen) Venous blood / Unknown 08/07/2024 8:15 AM EDT 08/07/2024 Barry Reyes MD LAB BLOOD ORDERABLES Final Re sult [facility] [address] [place] [address] * (ABNORMAL) CBC and Differential (08/07/2024 8:15 AM EDT) Pathologist [facility] WBC 5.6 3.4 - 10.8 x10E3/uL [facility] RBC 5.41(H) 3.77 - 5.28 x10E6/uL [facility] Hemoglobin 10.7(L) 11.1 - 15.9 g/dL [facility] Hematocrit 36.1 34.0 - 46.6 % [facility] MCV 67(L) 79 - 97 fL [facility] MCH 19.8(L) 26.6 - 33.0 pg [facility] MCHC 29.6(L) 31.5 - 35.7 g/dL [facility] RDW 18.9(H) 11.7 - 15.4 % [facility] Platelets 171 150 - 450 x10E3/uL [facility] Neutrophils Relative 65 Not Estab. % [facility] Lymphocytes Relative 25 Not Estab. % [facility] Monocytes 6 Not Estab. % [facility] Eosinophils Relative 3 Not Estab. % [facility] Basophils Relative 1 Not Estab. % [facility] Neutrophils Absolute 3.6 1.4 - 7.0 x10E3/uL [facility] Lymphocytes Absolute 1.4 0.7 - 3.1 x10E3/uL [facility] Monocytes Absolute 0.4 0.1 - 0.9 x10E3/uL [facility] Eosinophils Absolute 0.2 0.0 - 0.4 x10E3/uL [facility] Basophils Absolute 0.0 0.0 - 0.2 x10E3/uL [facility] Immature Granulocytes 0 Not Estab. % [facility] Immature Grans (Absolute) 0.0 0.0 - 0.1 x10E3/uL [facility] Blood specimen (specimen) Venous blood / Unknown 08/07/2024 8:15 AM EDT 08/07/2024 us Barry Reyes MD LAB BLOOD ORDERABLES Final Re sult [facility] [address] [place] [address] documented in this encounter Visit Diagnoses Diagnosis Anemia in chronic kidney disease Other iron deficiency anemia Chronic kidney disease, stage 2 (mild) documented in this encounter Care Teams Broaching Machine Repairer Relationship Specialty Start Date End Date Sahra Son MD [address] [place] [address] PCP - General Internal Medicine 10/28/22 documented as of this encounter
--- OUTSIDE RECORDS SUMMARY | 2025-01-19 09:35 | XMS_ITS | Encounter Summary ---
Author Organization [facility] [place], Address [address] [place] [address] Phone Care Team Providers Care Special Agent [employer] Name Role Phone Sahra Son MD Primary Care Provider + Encounter Details Date Type Department Care Team (Late st Contact Info) Description 07/21/2024 Orders Only [facility] [place], [address] [place] [address] India Davalos [address] [place] [address] Chronic kidney disease, stage 2 [...] specified documented in this encounter Care Teams Special Agent [employer] Relationship Specialty Start Date End Date Sahra Son MD [address] [address] PCP - General Internal Medicine 10/28/22 documented as of this encounter
--- OUTSIDE RECORDS SUMMARY | 2025-01-19 09:35 | XMS_ITS | Encounter Summary ---
Author Organization [facility] Address [address] [place] [address] Encounters * CPT with Medical [facility] at [facility] on 2025-01-14 64 yo F with PMHx type 2 diabetes complicated by CKD and hyperglycemia, pancreatic insufficiency, HTN, anemia and thalassemia minor, hyperlipidemia, obesity, memory impairment, previous CVA, stented carotid aneurysm, antiphospholipid antibody syndrome and past PE on long-term warfarin, COPD, seizure disorder/nonepileptic seizures. CHF. She has been experiencing hyperglycemia associated with headaches, polyuria, and polydipsia. She feels dehydrated. She is currently completing antibiotic (Doxycycline) for dental infection. She has been taking her diabetes medications Farxiga 5mg and Tradjenta 5 mg as prescribed. Fasting BG this morning 347. { reasonForRequest : , patientReports : , denies&quot ;:[], chiefComplaints : Diabetes Related , pmh : Hypertension, Congestive Heart Failure, COPD/Asthma, Diabetes Mellitus Type 2, Stroke, Chronic Kidney Disease, Cigarette Smoker, Epilepsy/Seizure Disorder, Hyperlipidemia , allergies : Penicillins, Codeine , otherAllergies :null, painAssessment : , visitO utcome : , additionalComments : HPI reviewed\n\nPer care team- Her polyuria, polydipsia, TRACY, along with hyperglycemia are concerning for DKA. Advise [facility] visit to check blood pH and UA to assess for ketones. Assess for need for IVF if signs of dehydration. } Dispatched for a 64yo female with concerns for DKA. Pt states her bgl has been over 300 for a week.Pt states she has had increased thirst and urination. Pt states she has been consuming 10-15 bottles of water a day. Pt denies any recent infections. Pt denies h/a, dizziness, cp, sob or nausea. Pt states normal po intake and bathroom use. [facility] consulted. BMP and urine dip ordered. Pt states she hasfollow up appointment this upcoming week with pcp. Pt informed of red flags. Pt found seated and speaking in full clear sentences. AO and GCS-15. PERRL. Skin pale/dry. Airway open and lung sounds clear. ABD soft nontender. BGL-285 and glucose: ++++ on urine dip. Rest of labs unremarkable. Rest of exam unremarkable. IV_(FLUIDS_AND/OR_MEDICATION), MEDICATION_IM, POC_BLOODWORK, GLUCOSE Written by Medical [facility] on 2025-01-14
--- OUTSIDE RECORDS SUMMARY | 2025-01-19 09:35 | XMS_ITS | Encounter Summary ---
Author Organization [facility] [place], Address [address] [place] [address] Phone Care Team Providers Care Line Construction Engineer Name Role Phone Sahra Son MD Primary Care Provider + Encounter Details Date Type Department Care Team (Late st Contact Info) Description 07/03/2021 Documentation Only [facility] [place], [address] [place] [address] Juan Jose Li MD [address] [place] [address] Social History Tobacco Use Types [...] on filedocumented in this encounter Care Teams Line Construction Engineer Relationship Specialty Start Date End Date Sahra Son MD [address] [address] PCP - General Internal Medicine 10/28/22 documented as of this encounter
--- OUTSIDE RECORDS SUMMARY | 2025-01-19 09:35 | XMS_ITS | Encounter Summary ---
Author Organization [facility] Address [address] [place] [address] Phone Care Team Providers Care Hand Sprayer Name Role Phone Sahra Son MD Primary Care Provider + Encounter Details Date Type Department Care Team (Late st Contact Info) Description 01/19/2025 Orders Only [facility] [place], [address] [place] [address] India Davalos [address] [place] [address] Anemia in chronic kidney disease; [...] (mild) documented in this encounter Care Teams Hand Sprayer Relationship Specialty Start Date End Date Sahra Son MD [address] [address] PCP - General Internal Medicine 10/28/22 documented as of this encounter
--- OUTSIDE RECORDS SUMMARY | 2025-01-19 09:35 | XMS_ITS | Encounter Summary ---
Author Organization [facility], Address [address] [place] [address] Phone Care Team Providers Care Site Safety Manager Name Role Phone Sahra Son MD Primary Care Provider + Encounter Details Date Type Department Care Team (Late st Contact Info) Description 04/05/2024 Documentation Only [facility], [address] [place] [address] India Davalos [address] [place] [address] Social History Tobacco Use Types [...] on filedocumented in this encounter Care Teams Site Safety Manager Relationship Specialty Start Date End Date Sahra Son MD [address] [address] PCP - General Internal Medicine 10/28/22 documented as of this encounter
--- OUTSIDE RECORDS SUMMARY | 2025-01-19 09:35 | XMS_ITS | Continuity of Care Document ---
Author Name [employer] Tariq Address [address] [place] [address] Organization Unknown Address [address] [place] [address] Medications No known medications Problems No known problems
--- OUTSIDE RECORDS SUMMARY | 2025-01-19 09:35 | XMS_ITS | Continuity of Care Document ---
Author Name [facility], Medical Address [address] [place] [address] Organization Unknown Address [address] [place] [address] Medications No known medications Problems No known problems
--- OUTSIDE RECORDS SUMMARY | 2025-01-19 09:35 | XMS_ITS | Encounter Summary ---
Author Organization [facility], Address [address] [place] [address] Phone Care Team Providers Care Cash Analyst Name Role Phone Sahra Son MD Primary Care Provider + Encounter Details Date Type Department Care Team (Late st Contact Info) Description 10/13/2024 Orders Only [facility], [address] [place] [address] India Davalos [address] [place] [address] Chronic kidney disease, stage 2 [...] specified documented in this encounter Care Teams Cash Analyst Relationship Specialty Start Date End Date Sahra Son MD [address] [address] PCP - General Internal Medicine 10/28/22 documented as of this encounter
--- OUTSIDE RECORDS SUMMARY | 2025-01-19 09:35 | XMS_ITS | Encounter Summary ---
Author Organization [facility], Address [address] [place] [address] Phone Care Team Providers Care Smoke Eater Name Role Phone Sahra Son MD Primary Care Provider + Encounter Details Date Type Department Care Team (Late st Contact Info) Description 03/31/2024 Orders Only [facility], [address] [place] [address] India Davalos [address] [place] [address] Chronic kidney disease, stage 2 [...] specified documented in this encounter Care Teams Smoke Eater Relationship Specialty Start Date End Date Sahra Son MD [address] [address] PCP - General Internal Medicine 10/28/22 documented as of this encounter
--- OUTSIDE RECORDS SUMMARY | 2025-01-19 09:35 | XMS_ITS | Encounter Summary ---
Author Organization [facility] [place], Address [address] [place] [address] Phone Care Team Providers Care Hedis Registered Nurse Rn Name Role Phone Sahra Son MD Primary Care Provider + Encounter Details Date Type Department Care Team (Late st Contact Info) Description 01/29/2023 Documentation Only [facility], [address] [place] [address] India Davalso [address] [place] [address] Social History Tobacco Use Types [...] on filedocumented in this encounter Care Teams Hedis Registered Nurse Rn Relationship Specialty Start Date End Date Sahra Son MD [address] [address] PCP - General Internal Medicine 10/28/22 documented as of this encounter
--- OUTSIDE RECORDS SUMMARY | 2025-01-19 09:35 | XMS_ITS | Encounter Summary ---
Author Organization [facility] Address [address] [place] [address] Phone Care Team Providers Care Consulting Analyst Name Role Phone Sahra Son MD Primary Care Provider + Encounter Details Date Type Department Care Team (Late st Contact Info) Description 05/26/2024 Orders Only [facility] [place], [address] [place] [address] India Davalos [address] [place] [address] Chronic kidney disease, stage 2 [...] Glucose 168(H) 70 - 99 mg/dL [facility] BUN 17 8 - 27 mg/dL [facility] Creatinine 1.09(H) 0.57 - 1.00 mg/dL [facility] eGFR CKD-EPI CR 2020 57(L) >59 mL/min/1.7 3 [facility] BUN/Creatinine Ratio 16 12 - 28 [facility] Sodium 137 134 - 144 mmol/L [facility] Potassium 4.8 3.5 - 5.2 mmol/L [facility] Chloride 99 96 - 106 mmol/L [facility] Bicarbonate (CO2) 23 20 - 29 mmol/L [facility] Calcium 9.0 8.7 - 10.3 mg/dL [facility] Albumin 4.2 3.9 - 4.9 g/dL [facility] Phosphorus 4.4(H) 3.0 - 4.3 mg/dL [facility] Blood specimen (specimen) Venous blood / Unknown 06/07/2024 11:53 AM EST 06/07/2024 us Barry Reyes MD LAB BLOOD ORDERABLES Final Re sult [facility] [address] [place] [address] * Ferritin (06/07/2024 11:53 AM EST) Pathologist [facility] Ferritin 102 15 - 150 ng/mL [facility] Blood specimen (specimen) Venous blood / Unknown 06/07/2024 11:53 AM EST 06/07/2024 Barry Reyes MD LAB BLOOD ORDERABLES Final Re sult [facility] [address] [place] [address] * Iron Panel (Fe, TIBC, TSAT) (06/07/2024 11:53 AM EST) Pathologist [facility] TIBC 262 250 - 450 ug/dL [facility] UIBC 205 118 - 369 ug/dL [facility] Iron 57 27 - 139 ug/dL [facility] Iron Saturation (TSat) 22 15 - 55 % [facility] Blood specimen (specimen) Venous blood / Unknown 06/07/2024 11:53 AM EST 06/07/2024 Barry Reyes MD LAB BLOOD ORDERABLES Final Re sult [facility] [address] [place] [address] * (ABNORMAL) CBC and Differential (06/07/2024 11:53 AM EST) Pathologist [facility] WBC 5.5 3.4 - 10.8 x10E3/uL [facility] RBC 5.76(H) 3.77 - 5.28 x10E6/uL [facility] Hemoglobin 11.1 11.1 - 15.9 g/dL [facility] Hematocrit 38.4 34.0 - 46.6 % [facility] MCV 67(L) 79 - 97 fL [facility] MCH 19.3(L) 26.6 - 33.0 pg [facility] MCHC 28.9(L) 31.5 - 35.7 g/dL [facility] RDW 18.8(H) 11.7 - 15.4 % [facility] Platelets 162 150 - 450 x10E3/uL [facility] Neutrophils Relative 59 Not Estab. % [facility] Lymphocytes Relative 31 Not Estab. % [facility] Monocytes 6 Not Estab. % [facility] Eosinophils Relative 2 Not Estab. % [facility] Basophils Relative 1 Not Estab. % [facility] Neutrophils Absolute 3.3 1.4 - 7.0 x10E3/uL [facility] Lymphocytes Absolute 1.7 0.7 - 3.1 x10E3/uL [facility] Monocytes Absolute 0.3 0.1 - 0.9 x10E3/uL [facility] Eosinophils Absolute 0.1 0.0 - 0.4 x10E3/uL [facility] Basophils Absolute 0.0 0.0 - 0.2 x10E3/uL [facility] Immature Granulocytes 1 Not Estab. % [facility] Immature Grans (Absolute) 0.0 0.0 - 0.1 x10E3/uL [facility] Blood specimen (specimen) Venous blood / Unknown 06/07/2024 11:53 AM EST 06/07/2024 us Barry Reyes MD LAB BLOOD ORDERABLES Final Re sult [facility] [address] [place] [address] documented in this encounter Visit Diagnoses Diagnosis Chronic kidney disease, stage 2 (mild) Anemia in chronic kidney disease Iron deficiency anemia, not otherwise specified documented in this encounter Care Teams Consulting Analyst Relationship Specialty Start Date End Date Sahra Son MD [address] [place] [address] PCP - General Internal Medicine 10/28/22 documented as of this encounter
--- OUTSIDE RECORDS SUMMARY | 2025-01-19 09:35 | XMS_ITS | Clinical Summary ---
Author Organization [facility], Address [address] [place] [address] [place] [address] Phone Care Team Providers Care Boat Joiner Name Role Phone Sahra Son MD Primary Care Provider + Allergies Active Allergy Reactions Criticality Noted Date Comments Codeine 12/26/2012 Ferumoxytol Shortness of breath,Itching,Other (see comments) High 02/27/2022 Bones hurt Iodinated Contrast Media 07/06/2022 Penicillins 12/26/2012 Other Shellfish Allergy 12/26/2012 Tramadol 07/06/2022 Trazodone 03/08/2018 Iron Sucrose 02/29/2024 Coughing fit infusion [place] [facility] Medications Cymbalta [address] capsule TK 2 CS PO QAM 12/28/19 20 Active LORazepam (ATIVAN) 1 MG tablet TK 1 T PO BID 12/24/19 20 Active meclizine (ANTIVERT) 25 MG tablet TK 1 T PO TID PRN 12/24/19 20 Active montelukast (SINGULAIR) 10 MG tablet TK 1 T PO QD IN THE DARCY 11/19/19 20 Active Creon 53602-68618 units capsule TK ONE C PO TID [...] Encounters Date Type Department Care Team Description 01/19/2025 Orders Only [facility] [address] [place] [address] [place], [place] Anemia in chronic kidney disease; Other iron deficiency anemia; Chronic kidney disease, stage 2 (mild) 01/10/2025 Telephone [facility] [address] [place] [address] Stephanie Azul RN 12/22/2024 Orders Only [facility] [address] [place] [address] [place], [place] Anemia in chronic kidney disease; Other iron deficiency anemia; Chronic kidney disease, stage 2 (mild) 12/18/2024 Documentation Only [facility] [address] [place] [address] [place], [place] 11/24/2024 Orders Only [facility] [address] [place] [address] [place], [place] Anemia in chronic kidney disease; Other iron deficiency anemia; Chronic kidney disease, stage 2 (mild) 11/13/2024 Documentation Only [facility] [address] [place] [address] [place], [place] 11/10/2024 Orders Only [facility] [address] [place] [address] [place], [place] Chronic kidney disease, stage 2 (mild); Anemia in chronic kidney disease; Iron deficiency anemia, not otherwise specified 10/27/2024 Orders Only [facility] [place] [address] [place] [address] India Davalos Anemia in chronic kidney disease; [...] 100 01/26/2024 9:10 AM EDT Temperature 36.4 C (97.5 F) 01/26/2024 9:10 AM EDT Respiratory Rate 16 07/24/2019 3:52 PM EDT [...] 08/14/2022, Additional history exists Influenza Vaccine (#1) 2025 03/22/2006 Pneumococcal Vaccine: Peds ( 0 to 5 Years) and At-Risk Patients (6 to 49 Years) Discontinued 10/20/2011, 01/03/2007 Hepatitis B Vaccine Completed 10/27/2023, 07/14/2023, 06/08/2023, Additional history exists Procedures Procedure Name Priority Date/Time Associated Diagnosis Comments RENAL FUNCTION PANEL Routine 11/01/2024 8:45 AM EDT Anemia in chronic kidney disease Other iron deficiency anemia Chronic kidney disease, stage 2 (mild) FERRITIN Routine 11/01/2024 8:45 AM EDT Anemia in chronic kidney disease Other iron deficiency anemia Chronic kidney disease, stage 2 (mild) IRON PANEL (FE, TIBC, TSAT) Routine 11/01/2024 8:45 AM EDT Anemia in chronic kidney disease Other iron deficiency anemia Chronic kidney disease, stage 2 (mild) CBC AND DIFFERENTIAL Routine 11/01/2024 8:45 AM EDT Anemia in chronic kidney disease [...] * (ABNORMAL) Iron Panel (Fe, TIBC, TSAT) (11/01/2024 8:45 AM EDT) TIBC 238(L) 250 - 450 ug/dL [facility] UIBC 168 118 - 369 ug/dL [facility] Iron 70 27 - 139 ug/dL [facility] Iron Saturation (TSat) 29 15 - 55 % [facility] Blood specimen (specimen) Venous blood / Unknown 11/01/2024 8:45 AM EDT 11/01/2024 Barry Reyes MD LAB BLOOD ORDERABLES Final Re sult [facility] [address] [place] [address] * (ABNORMAL) CBC and Differential (11/01/2024 8:45 AM EDT) Pathologist [facility] WBC 6.6 3.4 - 10.8 x10E3/uL [facility] RBC 5.45(H) 3.77 - 5.28 x10E6/uL [facility] Hemoglobin 11.2 11.1 - 15.9 g/dL [facility] Hematocrit 38.3 34.0 - 46.6 % [facility] MCV 70(L) 79 - 97 fL [facility] MCH 20.6(L) 26.6 - 33.0 pg [facility] MCHC 29.2(L) 31.5 - 35.7 g/dL [facility] RDW 18.8(H) 11.7 - 15.4 % [facility] Platelets 175 150 - 450 x10E3/uL [facility] Neutrophils Relative 71 Not Estab. % [facility] Lymphocytes Relative 20 Not Estab. % [facility] Monocytes 6 Not Estab. % [facility] Eosinophils Relative 1 Not Estab. % [facility] Basophils Relative 1 Not Estab. % [facility] Neutrophils Absolute 4.7 1.4 - 7.0 x10E3/uL [facility] Lymphocytes Absolute 1.3 0.7 - 3.1 x10E3/uL [facility] Monocytes Absolute 0.4 0.1 - 0.9 x10E3/uL [facility] Eosinophils Absolute 0.1 0.0 - 0.4 x10E3/uL [facility] Basophils Absolute 0.1 0.0 - 0.2 x10E3/uL [facility] Immature Granulocytes 1 Not Estab. % [facility] Immature Grans (Absolute) 0.0 0.0 - 0.1 x10E3/uL [facility] Blood specimen (specimen) Venous blood / Unknown 11/01/2024 8:45 AM EDT 11/01/2024 us Barry Reyes MD LAB BLOOD ORDERABLES Final Re sult [facility] [address] [place] [address] * (ABNORMAL) Ferritin (11/01/2024 8:45 AM EDT) Ferritin 480(H) 15 - 150 ng/mL [facility] Blood specimen (specimen) Venous blood / Unknown 11/01/2024 8:45 AM EDT 11/01/2024 Barry Reyes MD LAB BLOOD ORDERABLES Final Re sult [facility] [address] [place] [address] * (ABNORMAL) Renal Function Panel (11/01/2024 8:45 AM EDT) Glucose 238(H) 70 - 99 mg/dL [facility] BUN 15 8 - 27 mg/dL [facility] Creatinine 0.96 0.57 - 1.00 mg/dL [facility] eGFR CKD-EPI CR 2020 66 >59 mL/min/1.7 3 [facility] BUN/Creatinine Ratio 16 12 - 28 [facility] Sodium 137 134 - 144 mmol/L [facility] Potassium 4.7 3.5 - 5.2 mmol/L [facility] Chloride 100 96 - 106 mmol/L [facility] Bicarbonate (CO2) 20 20 - 29 mmol/L [facility] Calcium 9.0 8.7 - 10.3 mg/dL [facility] Albumin 4.3 3.9 - 4.9 g/dL [facility] Phosphorus 2.8(L) 3.0 - 4.3 mg/dL [facility] Blood specimen (specimen) Venous blood / Unknown 11/01/2024 8:45 AM EDT 11/01/2024 Barry Reyes MD LAB BLOOD ORDERABLES Final Re sult [facility] [address] [place] [address] * (ABNORMAL) Hemoglobin A1c (06/08/2023 8:36 AM EST) Hemoglobin A1C 7.2(H) (4.0-5.6) % [facility] Comment: MONITORING: In known diabetic patients, hemoglobin A1c targets should be discussed with health care provider. DIAGNOSTIC USE: The [place] Diabetes Association (ADA) and the World Health [...] Supplement 1 Testing performed or reported by [facility], a Service of [facility], [address] [place] [address] Luis A Bailey MD, Water Systems Designer [facility]# [id number] Blood specimen (specimen) Venous blood / Unknown 06/08/2023 8:36 AM EST 06/08/2023 8:38 AM EST Arlene CARTER LAB BLOOD ORDERABLES Final Re sult [facility] from Last 3 Months or Most Recently Relevant to Health Maintenance Insurance [id number] One Care Dual SNP ([id number]) [place] [id number] Care Teams Boat Joiner Relationship Specialty Start Date End Date Sahra Son MD [address] [address] PCP - General Internal Medicine 10/28/22
--- OUTSIDE RECORDS SUMMARY | 2025-01-19 09:35 | XMS_ITS | Encounter Summary ---
Author Organization [facility], Address [address] [place] [address] Phone Care Team Providers Care Hydraulic Chair Assembler Name Role Phone Sahra Son MD Primary Care Provider + Encounter Details Date Type Department Care Team (Late st Contact Info) Description 02/01/2023 Documentation Only [facility] [place], [address] [place] [address] India Davalos [address] [place] [address] Social History Tobacco Use Types [...] on filedocumented in this encounter Care Teams Hydraulic Chair Assembler Relationship Specialty Start Date End Date Sahra Son MD [address] [address] PCP - General Internal Medicine 10/28/22 documented as of this encounter
--- OUTSIDE RECORDS SUMMARY | 2025-01-19 09:35 | XMS_ITS | Encounter Summary ---
Author Organization [facility], Address [address] [place] [address] Phone Care Team Providers Care Breakfast And Room Attendant Name Role Phone Sahra Son MD Primary Care Provider + Encounter Details Date Type Department Care Team (Late st Contact Info) Description 11/13/2024 Documentation Only [facility], [address] [place] [address] India Davalos [address] [place] [address] Social History Tobacco Use [...] on filedocumented in this encounter Care Teams Breakfast And Room Attendant Relationship Specialty Start Date End Date Sahra Son MD [address] [address] PCP - General Internal Medicine 10/28/22 documented as of this encounter
--- OUTSIDE RECORDS SUMMARY | 2025-01-19 09:35 | XMS_ITS | Encounter Summary ---
Author Organization [facility] [place], Address [address] [place] [address] Phone Care Team Providers Care Casework Manager Name Role Phone Sahra Son MD Primary Care Provider + Encounter Details Date Type Department Care Team (Late st Contact Info) Description 10/30/2022 Documentation Only [facility], [address] [place] [address] India Davalos [address] [place] [address] Social History Tobacco Use Types [...] on filedocumented in this encounter Care Teams Casework Manager Relationship Specialty Start Date End Date Sahra Son MD [address] [address] PCP - General Internal Medicine 10/28/22 documented as of this encounter
--- OUTSIDE RECORDS SUMMARY | 2025-01-19 09:35 | XMS_ITS | Encounter Summary ---
Author Organization [facility] [place], Address [address] [place] [address] Phone Care Team Providers Care Golf Club Head Former Name Role Phone Sahra Son MD Primary Care Provider + Encounter Details Date Type Department Care Team (Late st Contact Info) Description 12/18/2024 Documentation Only [facility] [place], [address] [place] [address] India Davalos [address] [place] [address] Social History Tobacco Use [...] on filedocumented in this encounter Care Teams Golf Club Head Former Relationship Specialty Start Date End Date Sahra Son MD [address] [address] PCP - General Internal Medicine 10/28/22 documented as of this encounter
--- OUTSIDE RECORDS SUMMARY | 2025-01-19 09:35 | XMS_ITS | Encounter Summary ---
Author Organization [facility] Address [address] [place] [address] Phone Care Team Providers Care Spring Forger Name Role Phone Sahra Son MD Primary Care Provider + Encounter Details Date Type Department Care Team (Late st Contact Info) Description 04/28/2024 Orders Only [facility] [place], [address] [place] [address] India Davalos [address] [place] [address] Chronic kidney disease, stage 2 [...] Glucose 153(H) 70 - 99 mg/dL [facility] BUN 17 8 - 27 mg/dL [facility] Creatinine 0.98 0.57 - 1.00 mg/dL [facility] eGFR CKD-EPI CR 2020 64 >59 mL/min/1.7 3 [facility] BUN/Creatinine Ratio 17 12 - 28 [facility] Sodium 142 134 - 144 mmol/L [facility] Potassium 5.0 3.5 - 5.2 mmol/L [facility] Chloride 106 96 - 106 mmol/L [facility] Bicarbonate (CO2) 23 20 - 29 mmol/L [facility] Calcium 8.9 8.7 - 10.3 mg/dL [facility] Albumin 3.9 3.9 - 4.9 g/dL [facility] Phosphorus 3.9 3.0 - 4.3 mg/dL [facility] Blood specimen (specimen) Venous blood / Unknown 05/05/2024 9:18 AM EST 05/05/2024 us Barry Reyes MD LAB BLOOD ORDERABLES Final Re sult [facility] [address] [place] [address] * (ABNORMAL) Ferritin (05/05/2024 9:18 AM EST) Ferritin 282(H) 15 - 150 ng/mL [facility] Blood specimen (specimen) Venous blood / Unknown 05/05/2024 9:18 AM EST 05/05/2024 Barry Reyes MD LAB BLOOD ORDERABLES Final Re sult [facility] [address] [place] [address] * Iron Panel (Fe, TIBC, TSAT) (05/05/2024 9:18 AM EST) Pathologist [facility] TIBC 277 250 - 450 ug/dL [facility] UIBC 210 118 - 369 ug/dL [facility] Iron 67 27 - 139 ug/dL [facility] Iron Saturation (TSat) 24 15 - 55 % [facility] Blood specimen (specimen) Venous blood / Unknown 05/05/2024 9:18 AM EST 05/05/2024 Barry Reyes MD LAB BLOOD ORDERABLES Final Re sult [facility] [address] [place] [address] * (ABNORMAL) CBC and Differential (05/05/2024 9:18 AM EST) Pathologist [facility] WBC 5.6 3.4 - 10.8 x10E3/uL [facility] RBC 5.33(H) 3.77 - 5.28 x10E6/uL [facility] Hemoglobin 10.2(L) 11.1 - 15.9 g/dL [facility] Hematocrit 35.0 34.0 - 46.6 % [facility] MCV 66(L) 79 - 97 fL [facility] MCH 19.1(L) 26.6 - 33.0 pg [facility] MCHC 29.1(L) 31.5 - 35.7 g/dL [facility] RDW 20.1(H) 11.7 - 15.4 % [facility] Platelets 163 150 - 450 x10E3/uL [facility] Neutrophils Relative 64 Not Estab. % [facility] Lymphocytes Relative 26 Not Estab. % [facility] Monocytes 6 Not Estab. % [facility] Eosinophils Relative 3 Not Estab. % [facility] Basophils Relative 1 Not Estab. % [facility] Neutrophils Absolute 3.6 1.4 - 7.0 x10E3/uL [facility] Lymphocytes Absolute 1.5 0.7 - 3.1 x10E3/uL [facility] Monocytes Absolute 0.3 0.1 - 0.9 x10E3/uL [facility] Eosinophils Absolute 0.2 0.0 - 0.4 x10E3/uL [facility] Basophils Absolute 0.0 0.0 - 0.2 x10E3/uL [facility] Immature Granulocytes 0 Not Estab. % [facility] Immature Grans (Absolute) 0.0 0.0 - 0.1 x10E3/uL [facility] Blood specimen (specimen) Venous blood / Unknown 05/05/2024 9:18 AM EST 05/05/2024 us Barry Reyes MD LAB BLOOD ORDERABLES Final Re sult [facility] [address] [place] [address] documented in this encounter Visit Diagnoses Diagnosis Chronic kidney disease, stage 2 (mild) Anemia in chronic kidney disease Iron deficiency anemia, not otherwise specified documented in this encounter Care Teams Spring Forger Relationship Specialty Start Date End Date Sahra Son MD [address] [place] [address] PCP - General Internal Medicine 10/28/22 documented as of this encounter
--- OUTSIDE RECORDS SUMMARY | 2025-01-19 09:35 | XMS_ITS | Encounter Summary ---
Author Organization [facility] [place], Address [address] [place] [address] Phone Care Team Providers Care Industrial Mechanic Name Role Phone Sahra Son MD Primary Care Provider + Encounter Details Date Type Department Care Team ([facility] st Contact Info) Description 01/10/2025 Telephone [facility] [place], [address] [place] [address] Stephanie Azul RN [address] [place] [address] [place] [address] Social History Tobacco Use Types [...] Telephone Encounter - Stephanie Azul RN - 01/10/2025 2:57 PM EDT Pt reminded to have labs drawn since she has [facility] appt on 01/16/25. Pt stated she will go tomorrow to [address] [facility]. documented in this encounter Plan of Treatment Not on file documented as of this encounter Visit Diagnoses Not on filedocumented in this encounter Care Teams Industrial Mechanic Relationship Specialty [place] [address] [place] [address] PCP - General Internal Medicine 10/28/22 documented as of this encounter
--- OUTSIDE RECORDS SUMMARY | 2025-01-19 09:35 | XMS_ITS | Encounter Summary ---
Author Organization [facility] Address [address] [place] [address] Phone Care Team Providers Care Predator Control Trapper Name Role Phone Sahra Son MD Primary Care Provider + Encounter Details Date Type Department Care Team (Late st Contact Info) Description 10/27/2024 Orders Only [facility] [place], [address] [place] [address] India Davalos [address] [place] [address] Anemia in chronic kidney disease; [...] Comments IRON PANEL (FE, TIBC, TSAT) Routine 11/01/2024 [...] stage 2 (mild) RENAL FUNCTION PANEL Routine 11/01/2024 8:45 AM EDT Anemia in chronic kidney disease Other iron deficiency anemia Chronic kidney disease, stage 2 (mild) documented in this encounter Results * (ABNORMAL) Renal Function Panel (11/01/2024 8:45 AM EDT) Glucose 238(H) 70 - 99 mg/dL [facility] BUN 15 8 - 27 mg/dL [facility] Creatinine 0.96 0.57 - 1.00 mg/dL [facility] eGFR CKD-EPI CR 2020 66 >59 mL/min/1.7 3 [facility] BUN/Creatinine Ratio 16 12 - 28 [facility] Sodium 137 134 - 144 mmol/L [facility] Potassium 4.7 3.5 - 5.2 mmol/L [facility] Chloride 100 96 - 106 mmol/L [facility] Bicarbonate (CO2) 20 20 - 29 mmol/L [facility] Calcium 9.0 8.7 - 10.3 mg/dL [facility] Albumin 4.3 3.9 - 4.9 g/dL [facility] Phosphorus 2.8(L) 3.0 - 4.3 mg/dL [facility] Blood specimen (specimen) Venous blood / Unknown 11/01/2024 8:45 AM EDT 11/01/2024 us Barry Reyes MD LAB BLOOD ORDERABLES Final Re sult [facility] [address] [place] [address] * (ABNORMAL) Ferritin (11/01/2024 8:45 AM EDT) Ferritin 480(H) 15 - 150 ng/mL [facility] Blood specimen (specimen) Venous blood / Unknown 11/01/2024 8:45 AM EDT 11/01/2024 Barry Reyes MD LAB BLOOD ORDERABLES Final Re sult Performing Organization Address City/[facility]/ZIP Co de Phone Number [facility] [address] [place] [address] * (ABNORMAL) Iron Panel (Fe, TIBC, TSAT) (11/01/2024 8:45 AM EDT) Pathologist [facility] TIBC 238(L) 250 - 450 ug/dL [facility] UIBC 168 118 - 369 ug/dL [facility] Iron 70 27 - 139 ug/dL [facility] Iron Saturation (TSat) 29 15 - 55 % [facility] Blood specimen (specimen) Venous blood / Unknown 11/01/2024 8:45 AM EDT 11/01/2024 Barry Reyes MD LAB BLOOD ORDERABLES Final Re sult [facility] [address] [place] [address] * (ABNORMAL) CBC and Differential (11/01/2024 8:45 AM EDT) WBC 6.6 3.4 - 10.8 x10E3/uL [facility] RBC 5.45(H) 3.77 - 5.28 x10E6/uL [facility] Hemoglobin 11.2 11.1 - 15.9 g/dL [facility] Hematocrit 38.3 34.0 - 46.6 % [facility] MCV 70(L) 79 - 97 fL [facility] MCH 20.6(L) 26.6 - 33.0 pg [facility] MCHC 29.2(L) 31.5 - 35.7 g/dL [facility] RDW 18.8(H) 11.7 - 15.4 % [facility] Platelets 175 150 - 450 x10E3/uL [facility] Neutrophils Relative 71 Not Estab. % [facility] Lymphocytes Relative 20 Not Estab. % [facility] Monocytes 6 Not Estab. % [facility] Eosinophils Relative 1 Not Estab. % [facility] Basophils Relative 1 Not Estab. % [facility] Neutrophils Absolute 4.7 1.4 - 7.0 x10E3/uL [facility] Lymphocytes Absolute 1.3 0.7 - 3.1 x10E3/uL [facility] Monocytes Absolute 0.4 0.1 - 0.9 x10E3/uL [facility] Eosinophils Absolute 0.1 0.0 - 0.4 x10E3/uL [facility] Basophils Absolute 0.1 0.0 - 0.2 x10E3/uL [facility] Immature Granulocytes 1 Not Estab. % [facility] Immature Grans (Absolute) 0.0 0.0 - 0.1 x10E3/uL [facility] Blood specimen (specimen) Venous blood / Unknown 11/01/2024 8:45 AM EDT 11/01/2024 us Barry Reyes MD LAB BLOOD ORDERABLES Final Re sult [facility] [address] [place] [phone] documented in this encounter Visit Diagnoses Diagnosis Anemia in chronic kidney disease Other iron deficiency anemia Chronic kidney disease, stage 2 (mild) documented in this encounter Care Teams Predator Control Trapper Relationship Specialty Start Date End Date Sahra Son MD [address] [place] [id number] PCP - General Internal Medicine 10/28/22 documented as of this encounter
--- OUTSIDE RECORDS SUMMARY | 2025-01-19 09:35 | XMS_ITS | Clinical Summary ---
Author Organization 175 [facility] Address [address] [place] [address] Phone Care Team Providers Care Dobby Loom Weaver Name Role Phone Sahra Son MD Primary Care Provider + Encounters Date Type Department Care Team Description 11/15/2024 Telephone Gastroenterology - [place] 175 [facility] 175 [facility] [address] [place] [address] Jc Guerrier MD from Last 3 Months Surgical History Surgery Date Site/Laterality Comments OTHER SURGICAL HISTORY 1975 PROCEDURE: [place] TX ECTOPIC ABDOMINAL/VAGINAL APPR PARTIAL HYSTERECTOMY PROCEDURE: IA SUPRACERVICAL ABDL HYSTER W/WO RMVL TUBE OVARY CHOLECYSTECTOMY 1982 PROCEDURE: HISTORICAL CHOLECYSTECTOMY CARPAL TUNNEL RELEASE 11/21/2014 Left PROCEDURE: HISTORICAL CARPAL TUNNEL REL BOWEL RESECTION 03/2004 PROCEDURE: HISTORICAL BOWEL RESECTION; COMMENT: bowel obstruction Medical History Medical History Date Comments Diverticulosis DX:Diverticulosi s CHF (congestive heart failur e) ([facility] V24, [facility] V28) DX:CHF (congestive heart fa ilure) ([facility]) COPD (chronic obstructive pu lmonary disease) ([facility] V24, [facility] V28) DX:COPD (chronic o bstructive pulmonary disease) ([facility]) Osteoporosis DX:Osteoporosis Fibromyalgia DX:Fibromyalgia Myelofibrosis ([facility] V24, [facility] V28) DX:Myelofibrosis ([facility]); COMM ENT: diagnosed 8 years ago, follows with DR layne Meningioma ([facility] V24, [facility] V28) DX:Meningioma ([facility]) Asthma DX:Asthma Gout DX:Gout Seizures ([facility] V24, [facility] V28) DX:Seizures ([facility]) Lupus DX:Lupus Depression DX:Depression; C OMMENT: follows at [facility] net at [place] [address] Gann Hypercoagulable state ([facility] V24) DX:Hypercoagulable state ([facility]); COMMENT: on coumadin Neurogenic bladder DX:Neurogenic bladder; COMMENT: flowers dependent Supplemental oxygen dependent DX :Supplemental oxygen dependent Lung nodule 03/22/2017 DX:Lung nodule ALESSANDRA (obstructive sleep apnea) 03/22/2017 DX :ALESSANDRA (obstructive sleep apnea) GERD (gastroesophageal reflux disease) 03/22/2017 DX:GERD (gastroesophageal reflux disease) Anxiety 03/22/2017 DX:Anxiety Dementia ([facility] V24, [facility] V28) 03/22/2017 DX:Dementia ([facility]) Schizophrenia ([facility] V24, [facility] V28) 03/22/2017 DX:Schizophrenia ([facility]) Glaucoma 03/22/2017 DX:Glaucoma History of stroke DX:History of stroke History of deep vein thrombosis DX:History of deep vein thrombosis Coronary artery disease DX:Coron christine artery disease; COMMENT: Old CT Diabetes mellitus type 2 wit h neurological manifestations ([facility] V24, [facility] V28) DX:Diabetes mellitus type 2 with neurological manifestations ([facility]) Leukemia ([facility] V24, [facility] V28) 09/02/2017 DX:Leukemia ([facility]) MDS (myelodysplastic syndrom e) ([facility] V24, [facility] V28) 09/02/2017 DX:MDS (myelodysplastic syn drome) ([facility]) Hyperthyroidism 09/02/2017 DX:Hyperthyroidi sm History [...] 02/08/2025 9:10 AM EDT Consult Gastroenterology - [place] [address] [place] [address] [facility] [address] [place] [id number] Deloris Vickers PA [address] [facility] [address] [place] [address] Health Maintenance Due Date Last Done Comments [...] patient's age to complete this topic Insurance [facility] Member Subscriber Plan / Payer (Ef fective for All Dates) Name:Jennifer Schulz Relation to Subscriber:Self Name:Jennifer Schulz Payer ID:[id number] Group ID:[id number] Type:Not on file Address: [place] [address] [place] [address] Care Teams Dobby Loom Weaver Relationship Specialty Start Date End Date Sahra Son MD [address] [place] [id number] PCP - General Internal Medicine 11/15/24
--- OUTSIDE RECORDS SUMMARY | 2025-01-19 09:35 | XMS_ITS | Encounter Summary ---
Author Organization [facility] Address [address] [place] [address] Phone Care Team Providers Care Tar Heel Name Role Phone Sahra Son MD Primary Care Provider + Encounter Details Date Type Department Care Team (Late st Contact Info) Description 09/29/2024 Orders Only [facility] [place], [address] [place] [address] India Davalos [address] [place] [address] Anemia in chronic kidney disease; [...] Comments IRON PANEL (FE, TIBC, TSAT) Routine 10/04/2024 9:48 AM EDT Anemia in chronic kidney disease Other iron deficiency anemia Chronic kidney disease, stage 2 (mild) CBC AND DIFFERENTIAL Routine 10/04/2024 9:48 AM EDT Anemia in chronic kidney disease Other iron deficiency anemia Chronic kidney disease, stage 2 (mild) FERRITIN Routine 10/04/2024 9:48 AM EDT Anemia in chronic kidney disease Other iron deficiency anemia Chronic kidney disease, stage 2 (mild) RENAL FUNCTION PANEL Routine 10/04/2024 9:48 AM EDT Anemia in chronic kidney disease Other iron deficiency anemia Chronic kidney disease, stage 2 (mild) documented in this encounter Results * (ABNORMAL) Renal Function Panel (10/04/2024 9:48 AM EDT) Glucose 219(H) 70 - 99 mg/dL [facility] BUN 14 8 - 27 mg/dL [facility] Creatinine 1.09(H) 0.57 - 1.00 mg/dL [facility] eGFR CKD-EPI CR 2020 57(L) >59 mL/min/1.7 3 [facility] BUN/Creatinine Ratio 13 12 - 28 [facility] Sodium 139 134 - 144 mmol/L [facility] Potassium 5.0 3.5 - 5.2 mmol/L [facility] Chloride 101 96 - 106 mmol/L [facility] Bicarbonate (CO2) 20 20 - 29 mmol/L [facility] Calcium 9.2 8.7 - 10.3 mg/dL [facility] Albumin 4.1 3.9 - 4.9 g/dL [facility] Phosphorus 3.7 3.0 - 4.3 mg/dL [facility] Blood specimen (specimen) Venous blood / Unknown 10/04/2024 9:48 AM EDT 10/04/2024 us Barry Reyes MD LAB BLOOD ORDERABLES Final Re sult [facility] [address] [place] [address] * (ABNORMAL) Ferritin (10/04/2024 9:48 AM EDT) Pathologist [facility] Ferritin 167(H) 15 - 150 ng/mL [facility] Blood specimen (specimen) Venous blood / Unknown 10/04/2024 9:48 AM EDT 10/04/2024 Brary Reyes MD LAB BLOOD ORDERABLES Final Re sult [facility] [address] [place] [address] * (ABNORMAL) Iron Panel (Fe, TIBC, TSAT) (10/04/2024 9:48 AM EDT) Pathologist [facility] TIBC 247(L) 250 - 450 ug/dL [facility] UIBC 205 118 - 369 ug/dL [facility] Iron 42 27 - 139 ug/dL [facility] Iron Saturation (TSat) 17 15 - 55 % [facility] Blood specimen (specimen) Venous blood / Unknown 10/04/2024 9:48 AM EDT 10/04/2024 Barry Reyes MD LAB BLOOD ORDERABLES Final Re sult [facility] [address] [place] [address] * (ABNORMAL) CBC and Differential (10/04/2024 9:48 AM EDT) WBC 6.0 3.4 - 10.8 x10E3/uL [facility] RBC 5.10 3.77 - 5.28 x10E6/uL [facility] Hemoglobin 10.2(L) 11.1 - 15.9 g/dL [facility] Hematocrit 35.1 34.0 - 46.6 % [facility] MCV 69(L) 79 - 97 fL [facility] MCH 20.0(L) 26.6 - 33.0 pg [facility] MCHC 29.1(L) 31.5 - 35.7 g/dL [facility] RDW 18.5(H) 11.7 - 15.4 % [facility] Platelets 170 150 - 450 x10E3/uL [facility] Neutrophils Relative 69 Not Estab. % [facility] Lymphocytes Relative 22 Not Estab. % [facility] Monocytes 6 Not Estab. % [facility] Eosinophils Relative 2 Not Estab. % [facility] Basophils Relative 1 Not Estab. % [facility] Neutrophils Absolute 4.2 1.4 - 7.0 x10E3/uL [facility] Lymphocytes Absolute 1.3 0.7 - 3.1 x10E3/uL [facility] Monocytes Absolute 0.3 0.1 - 0.9 x10E3/uL [facility] Eosinophils Absolute 0.1 0.0 - 0.4 x10E3/uL [facility] Basophils Absolute 0.1 0.0 - 0.2 x10E3/uL [facility] Immature Granulocytes 0 Not Estab. % [facility] Immature Grans (Absolute) 0.0 0.0 - 0.1 x10E3/uL [facility] Blood specimen (specimen) Venous blood / Unknown 10/04/2024 9:48 AM EDT 10/04/2024 us Barry Reyes MD LAB BLOOD ORDERABLES Final Re sult [facility] [address] [place] [phone] documented in this encounter Visit Diagnoses Diagnosis Anemia in chronic kidney disease Other iron deficiency anemia Chronic kidney disease, stage 2 (mild) documented in this encounter Care Teams Tar Heel Relationship Specialty Start Date End Date Sahra Son MD [address] [place] [address] PCP - General Internal Medicine 10/28/22 documented as of this encounter
--- OUTSIDE RECORDS SUMMARY | 2025-01-19 09:35 | XMS_ITS | Encounter Summary ---
Author Organization [facility] [place], Address [address] [place] [address] Phone Care Team Providers Care Internal Medicine Specialist Name Role Phone Sahra Son MD Primary Care Provider + Encounter Details Date Type Department Care Team (Late st Contact Info) Description 11/24/2024 Orders Only [facility] [place], [address] [place] [address] India Davalos [address] [place] [address] Anemia in chronic kidney disease; [...] (mild) documented in this encounter Care Teams Internal Medicine Specialist Relationship Specialty Start Date End Date Sahra Son MD [address] [address] PCP - General Internal Medicine 10/28/22 documented as of this encounter
--- OUTSIDE RECORDS SUMMARY | 2025-01-19 09:35 | XMS_ITS | Encounter Summary ---
Author Organization [facility] Address [address] [facility] [address] [place] [address] Encounters * CPT with Felix Tariq at [employer] on 2024-10-25 63 y/o female Patient called to PCP with reports of vomiting over the last 12 hours. Patient reports headache. Patient states that she is unable to eat due to nausea. { patientReports : , denies :[], chiefComplaints : Headache, Nausea / Vomiting , pmh : Hypertension, Congestive Heart Failure, COPD/Asthma, Diabetes Mellitus Type 2, Stroke , allergies : Penicillins, Codeine , otherAllergies :null, painAssessment : , visitOutcome :&qu ot; , additionalComments : HPI reviewed. } SC12 dispatched to the address listed above [...] 3 days, reports she has been having nausea/vomiting/diarrhea since this morning, reports no bloody or black vomit/stool. Patient reportsshe feels dehydrated and has been unable to keep any food/fluids down. Patients reports she has nottaken any OTC medications for symptoms management. Patient vital signs obtained as noted. C consulted, provided orders for COVID/FLU POC tests, [...] experiences any life threatening symptoms. SC12 Clear. IV_(FLUIDS_AND/OR_MEDICATION), MEDICATION_IM, EKG, POC_BLOODWORK, POC_FLU_STREP, URINE_DIPSTICK, COVID_TEST Written by Felix Tariq on 2024-10-25
--- OUTSIDE RECORDS SUMMARY | 2025-01-19 09:35 | XMS_ITS | Encounter Summary ---
Author Organization [facility] [place], Address [address] [place] [address] Phone Care Team Providers Care Meter Calibrator Name Role Phone Sahra Son MD Primary Care Provider + Encounter Details Date Type Department Care Team (Late st Contact Info) Description 11/10/2024 Orders Only [facility] [place], [address] [place] [address] India Davalos [address] [place] [address] Chronic kidney disease, stage 2 [...] specified documented in this encounter Care Teams Meter Calibrator Relationship Specialty Start Date End Date Sahra Son MD [address] [address] PCP - General Internal Medicine 10/28/22 documented as of this encounter
--- OUTSIDE RECORDS SUMMARY | 2025-01-19 09:35 | XMS_ITS | Encounter Summary ---
Author Organization [facility] [place], Address [address] [place] [address] Phone Care Team Providers Care Egg Trayer Name Role Phone Sahra Son MD Primary Care Provider + Encounter Details Date Type Department Care Team (Late st Contact Info) Description 06/25/2021 Documentation Only [facility] [place], [address] [place] [address] India Davalos [address] [place] [address] Social History Tobacco Use Types [...] filedocumented in this encounter Care Teams Egg Trayer Relationship Specialty Start Date End Date Sahra Son MD [address] [address] PCP - General Internal Medicine 10/28/22 documented as of this encounter
--- OUTSIDE RECORDS SUMMARY | 2025-01-19 09:35 | XMS_ITS | Encounter Summary ---
Author Organization [facility] [place], Address [address] [place] [address] Phone Care Team Providers Care Assembler Dc Field Yoke Name Role Phone Sahra Son MD Primary Care Provider + Encounter Details Date Type Department Care Team (Late st Contact Info) Description 10/26/2022 Documentation Only [facility] [place], [address] [place] [address] India Davalos [address] [place] [address] Social History Tobacco Use Types [...] filedocumented in this encounter Care Teams Assembler Dc Field Yoke Relationship Specialty Start Date End Date Sahra Son MD [address] [address] PCP - General Internal Medicine 10/28/22 documented as of this encounter
--- OUTSIDE RECORDS SUMMARY | 2025-01-19 09:35 | XMS_ITS | Encounter Summary ---
Author Organization [facility] [place], Address [address] [place] [address] Phone Care Team Providers Care Bank Vault Custodian Name Role Phone Sahra Son MD Primary Care Provider + Encounter Details Date Type Department Care Team (Late st Contact Info) Description 06/23/2024 Orders Only [facility] [place], [address] [place] [address] India Davalos [address] [place] [address] Chronic kidney disease, stage 2 [...] specified documented in this encounter Care Teams Bank Vault Custodian Relationship Specialty Start Date End Date Sahra Son MD [address] [address] PCP - General Internal Medicine 10/28/22 documented as of this encounter
== END 2025-01-19 09:15 | disposition home or self-care (01) ==
LOC: HO.ACS 08:57
PROVIDERS: PCP Internal Medicine; Visit Provider Internal Medicine Medical Oncology
DX: Z79.01 Long term (current) use of anticoagulants (principal)

== ENCOUNTER → 2025-01-19 08:57 | Outpatient (BNVA) | payer OTHER, SELFPAY | PROVIDERS: PCP Internal Medicine; Visit Provider Internal Medicine Medical Oncology | DX: Z86.718 Personal history of other venous thrombosis and embolism (principal); Z79.01 Long term (current) use of anticoagulants; Z51.81 Encounter for therapeutic drug level monitoring | CPT/HCPCS: 85610; 99212 ==

== ENCOUNTER 2025-01-25 09:10 | Outpatient (AMB) | payer OTHER, SELFPAY ==
[2025-01-25 09:43] LABS: Prothrombin Time Whole Bld POC 26.3 sec (11.1-13.5); ~PT, ~INR - Anti Coag Clinic 2.2 (0.9-1.1)
--- NOTE | 2025-01-25 09:46 | MHC.OFFVISCO ---
Intake Intake Visit Reasons: Anticoagulation Allergies codeine (Codeine) Allergy (Severe, Verified 01/25/25 09:27) DIFFICULTY BREATHING Penicillins Allergy (Severe, Verified 01/25/25 09:27) RASH penicillin V Allergy (Intermediate, Verified 01/25/25 09:27) RASH tramadol (Ultram) Allergy (Unknown, Verified 01/25/25 09:27) hallucinations Shellfish Allergy (Severe, Uncoded 01/25/25 09:27) THROAT SWELLING Contrast Allergy PreMed Pack Allergy (Unknown, Uncoded 01/25/25 09:27) TREAT WITH BENADRYL ferrlecit Adverse Reaction (Intermediate, Uncoded 01/25/25 09:27) Rash Medication List - Last Reconciled 01/25/25 by Tangela Sam RN alcohol swabs 2 pad topical DAILY blood sugar diagnostic As directed budesonide (Pulmicort) 0.25 mg inhalation BID clonidine HCl 0.1 mg PO BID dapagliflozin propanediol (Farxiga) 5 mg PO DAILY divalproex ER 250 mg PO BID docusate sodium (Colace) 100 mg PO DAILY duloxetine (Cymbalta) 30 mg PO DAILY duloxetine 60 mg PO QAM epoetin marj (Procrit) 2,000 units subcut 3XW hydrocortisone 2.5% appl topical insulin glargine (Lantus Solostar U-100 Insulin) 5 units subcut DAILY ipratropium-albuterol 0.5 mg-3 mg(2.5 mg base)/3 mL mL inhalation ipratropium-albuterol 20-100 mcg/actuation 1 puff PO QID ipratropium-albuterol 20-100 mcg/actuation (Combivent Respimat) 1 puff inhalation Q4H lancets As directed lancets As directed latanoprost 0.005% drps ophthalmic (eye) lidocaine 4% (Lidocaine Pain Relief) 1 patch topical DAILY PRN linaclotide (Linzess) 145 mcg PO DAILY linagliptin (Tradjenta) 5 mg PO DAILY ytvqcr-iarsjixr-ieksufr 24,000-76,000 -120,000 unit (Creon) 1 cap PO TID loratadine 10 mg PO DAILY PRN lorazepam 1 mg PO BID meclizine mg PO montelukast 10 mg PO BEDTIME nifedipine ER 30 mg PO DAILY nitroglycerin 0.4 mg sublingual Q5M PRN nystatin 1 appl topical DAILY PRN ondansetron 4 mg PO Q8H PRN oxcarbazepine (Trileptal) 150 mg PO Q12H 30 days quetiapine 200 mg PO BEDTIME rabeprazole 20 mg PO DAILY ropinirole 0.25 mg PO BEDTIME rosuvastatin 40 mg PO DAILY sodium chloride 0.65% (Deep Sea Nasal) sprays intranasal Q2H PRN triamcinolone acetonide 0.1% appl topical warfarin 2.5 mg See Protocol PO DAILY Nursing Note INR: 2.2 in therapeutic range Medications and supplements reviewed Pt to have about 8-9 dental extractions all bottom Denies any signs and symptoms of bleeding or bruising or clotting. Bleeding, bruising, clotting discussed Nutritional guidance given Dose: 2.5mg today, to have INR in lower range - If any complications with any bleeding tomorrow then hold warfarin, if no bleeding resume usual dose, 3.75mg x 2 days/ 5mg x 5 days F/U INR: 1 week pt has instructions for bleeding, call with any medication changes Patient verbalizes understanding of instructions given Anti-Coag Initial Assessment Social Hx Patient Tobacco Use Status: Current everyday Tobacco user alcohol intake: never Coding Level of Care Code Est Patient Level 1 Diagnoses Current use of anticoagulant therapy Z79.01 Results AMB INR Fingerstick AMB INR Fingerstick 2.2 Last Edit by Tangela Sam RN on 01/25/25 09:36 MANUAL ENTRY Assessment & Plan Assessment & Plan (1) Current use of anticoagulant therapy: Code(s): Z79.01 - superintendent terminal (current) use of anticoagulants Category: Medical
--- OUTSIDE RECORDS SUMMARY | 2025-01-25 10:32 | XMS_ITS | Encounter Summary ---
Author Organization [facility] Address [address] [place] [address] Phone Care Team Providers Care Surgical Services Tech Name Role Phone Sahra Son MD Primary Care Provider + Encounter Details Date Type Department Care Team (Late st Contact Info) Description 12/22/2024 Orders Only [facility] [place], [address] [place] [address] India Davalos [address] [place] [address] Anemia in chronic kidney disease; [...] (mild) documented in this encounter Care Teams Surgical Services Tech Relationship Specialty Start Date End Date Sahra Son MD [address] [address] PCP - General Internal Medicine 10/28/22 documented as of this encounter
--- OUTSIDE RECORDS SUMMARY | 2025-01-25 10:32 | XMS_ITS | Encounter Summary ---
Author Organization [facility] [place], Address [address] [place] [address] Phone Care Team Providers Care Student Services Rep Name Role Phone Sahra Son MD Primary Care Provider + Encounter Details Date Type Department Care Team (Late st Contact Info) Description 06/22/2022 Documentation Only [facility] [place], [address] [place] [address] India Davalos [address] [place] [address] Social History Tobacco Use Types [...] on filedocumented in this encounter Care Teams Student Services Rep Relationship Specialty Start Date End Date Sahra Son MD [address] [address] PCP - General Internal Medicine 10/28/22 documented as of this encounter
--- OUTSIDE RECORDS SUMMARY | 2025-01-25 10:32 | XMS_ITS | Encounter Summary ---
Author Organization [facility], Address [address] [place] [address] Phone Care Team Providers Care Renewable Energy Trader Name Role Phone Sahra Son MD Primary Care Provider + Encounter Details Date Type Department Care Team (Late st Contact Info) Description 07/07/2024 Orders Only [facility], [address] [place] [address] India Davalos [address] [place] [address] Anemia in chronic kidney disease; [...] (mild) documented in this encounter Care Teams Renewable Energy Trader Relationship Specialty Start Date End Date Sahra Son MD [address] [address] PCP - General Internal Medicine 10/28/22 documented as of this encounter
--- OUTSIDE RECORDS SUMMARY | 2025-01-25 10:32 | XMS_ITS | Encounter Summary ---
Author Organization [facility] [place], Address [address] [place] [address] Phone Care Team Providers Care Retort Firer Name Role Phone Sahra Son MD Primary Care Provider + Encounter Details Date Type Department Care Team (Late st Contact Info) Description 09/28/2022 Documentation Only [facility], [address] [place] [address] India Davalos [address] [place] [address] Social History Tobacco Use Types [...] on filedocumented in this encounter Care Teams Retort Firer Relationship Specialty Start Date End Date Sahra Son MD [address] [address] PCP - General Internal Medicine 10/28/22 documented as of this encounter
--- OUTSIDE RECORDS SUMMARY | 2025-01-25 10:32 | XMS_ITS | Encounter Summary ---
Author Organization [facility], Address [address] [place] [address] Phone Care Team Providers Care Baker Operator Automatic Name Role Phone Sahra Son MD Primary Care Provider + Encounter Details Date Type Department Care Team (Late st Contact Info) Description 06/16/2022 Documentation Only [facility], [address] [place] [address] India Davalos [address] [place] [address] Social History Tobacco Use Types [...] on filedocumented in this encounter Care Teams Baker Operator Automatic Relationship Specialty Start Date End Date Sahra Son MD [address] [address] PCP - General Internal Medicine 10/28/22 documented as of this encounter
--- OUTSIDE RECORDS SUMMARY | 2025-01-25 10:32 | XMS_ITS | Encounter Summary ---
Author Organization [facility] [place], Address [address] [place] [address] Phone Care Team Providers Care Employee Benefits Specialist Name Role Phone Sahra Son MD Primary Care Provider + Encounter Details Date Type Department Care Team (Late st Contact Info) Description 08/24/2024 Documentation Only [facility], [address] [place] [address] India Davalos [address] [place] [address] Social History Tobacco Use Types [...] filedocumented in this encounter Care Teams Employee Benefits Specialist Relationship Specialty Start Date End Date Sahra Son MD [address] [address] PCP - General Internal Medicine 10/28/22 documented as of this encounter
--- OUTSIDE RECORDS SUMMARY | 2025-01-25 10:32 | XMS_ITS | Encounter Summary ---
Author Organization [facility] [place] [facility], Address [address] [place] [address] Phone Care Team Providers Care Act English Tutor Name Role Phone Sahra Son MD Primary Care Provider + Encounter Details Date Type Department Care Team (Late st Contact Info) Description 06/17/2022 Documentation Only [facility], [address] [place] [address] India Davalos [address] [place] [address] Social History Tobacco Use Types [...] on filedocumented in this encounter Care Teams Act English Tutor Relationship Specialty Start Date End Date Sahra Son MD [address] [address] PCP - General Internal Medicine 10/28/22 documented as of this encounter
--- OUTSIDE RECORDS SUMMARY | 2025-01-25 10:32 | XMS_ITS | Encounter Summary ---
Author Organization [facility] [place], Address [address] [place] [address] Phone Care Team Providers Care Energy Projects Lead Name Role Phone Sahra Son MD Primary Care Provider + Encounter Details Date Type Department Care Team (Late st Contact Info) Description 03/22/2024 Documentation Only [facility], [address] [place] [address] India Davalos [address] [place] [address] Social History Tobacco Use Types [...] on filedocumented in this encounter Care Teams Energy Projects Lead Relationship Specialty Start Date End Date Sahra Son MD [address] [address] PCP - General Internal Medicine 10/28/22 documented as of this encounter
--- OUTSIDE RECORDS SUMMARY | 2025-01-25 10:32 | XMS_ITS | Encounter Summary ---
Author Organization [facility] [place], Address [address] [place] [address] Phone Care Team Providers Care Landscape Foreman Name Role Phone Sahra Son MD Primary Care Provider + Encounter Details Date Type Department Care Team (Late st Contact Info) Description 09/18/2022 Documentation Only [facility], [address] [place] [address] India Davalos [address] [place], [place] [...] filedocumented in this encounter Care Teams Landscape Foreman Relationship Specialty Start Date End Date Sahra Sno MD [address] [address] PCP - General Internal Medicine 10/28/22 documented as of this encounter
--- OUTSIDE RECORDS SUMMARY | 2025-01-25 10:32 | XMS_ITS | Encounter Summary ---
Author Organization [facility] [place], Address [address] [place] [address] Phone Care Team Providers Care Account Maintenance Representative Name Role Phone Sahra Son MD Primary Care Provider + Encounter Details Date Type Department Care Team (Late st Contact Info) Description 09/28/2022 Documentation Only [facility] [place], [address] [place] [address] India Davalos [address] [place] [address] Social History Tobacco Use Types [...] filedocumented in this encounter Care Teams Account Maintenance Representative Relationship Specialty Start Date End Date Sahra Son MD [address] [address] PCP - General Internal Medicine 10/28/22 documented as of this encounter
--- OUTSIDE RECORDS SUMMARY | 2025-01-25 10:32 | XMS_ITS | Encounter Summary ---
Author Organization [facility] [place], Address [address] [place] [address] Phone Care Team Providers Care Reserves Clerk Name Role Phone Sahra Son MD Primary Care Provider + Encounter Details Date Type Department Care Team (Late st Contact Info) Description 06/30/2020 Orders Only [facility] - [facility] [address] [place] [address] Carol Whelan [address] [place] [address] Iron deficiency anemia, not otherwise [...] (mild) documented in this encounter Care Teams Reserves Clerk Relationship Specialty Start Date End Date Sahra Son MD [address] [address] PCP - General Internal Medicine 10/28/22 documented as of this encounter
--- OUTSIDE RECORDS SUMMARY | 2025-01-25 10:32 | XMS_ITS | Encounter Summary ---
Author Organization [facility] [place], Address [address] [place] [address] Phone Care Team Providers Care Bull Wheel Worker Name Role Phone Sahra Son MD Primary Care Provider + Encounter Details Date Type Department Care Team (Late st Contact Info) Description 08/11/2022 Documentation Only [facility], [address] [place] [address] India Davalos [address] [place] [address] Social History Tobacco Use Types [...] filedocumented in this encounter Care Teams Bull Wheel Worker Relationship Specialty Start Date End Date Sahra Son MD [address] [address] PCP - General Internal Medicine 10/28/22 documented as of this encounter
--- OUTSIDE RECORDS SUMMARY | 2025-01-25 10:32 | XMS_ITS | Encounter Summary ---
Author Organization [facility] [place], Address [address] [place] [address] Phone Care Team Providers Care Document Control Associate Name Role Phone Sahra Son MD Primary Care Provider + Encounter Details Date Type Department Care Team ([facility] st Contact Info) Description 04/08/2022 Documentation Only [facility] [place], [address] [place] [address] India Davalos [address] [place] [address] Social History Tobacco Use Types [...] on filedocumented in this encounter Care Teams Document Control Associate Relationship Specialty Start Date End Date Sahra Son MD [address] [address] PCP - General Internal Medicine 10/28/22 documented as of this encounter
--- OUTSIDE RECORDS SUMMARY | 2025-01-25 10:32 | XMS_ITS | Encounter Summary ---
Author Organization [facility] [place], Address [address] [place] [address] Phone Care Team Providers Care Paintings Restorer Name Role Phone Sahra Son MD Primary Care Provider + Encounter Details Date Type Department Care Team (Late st Contact Info) Description 09/28/2022 Documentation Only [facility] [place], [address] [place] [address] India Davalos [address] [place], [place] [...] on filedocumented in this encounter Care Teams Paintings Restorer Relationship Specialty Start Date End Date Sahra Son MD [address] [address] PCP - General Internal Medicine 10/28/22 documented as of this encounter
--- OUTSIDE RECORDS SUMMARY | 2025-01-25 10:32 | XMS_ITS | Encounter Summary ---
Author Organization [facility] [place], Address [address] [place] [address] Phone Care Team Providers Care Case Coordinator Name Role Phone Sahra Son MD Primary Care Provider + Encounter Details Date Type Department Care Team (Late st Contact Info) Description 12/31/2023 Documentation Only [facility], [address] [place] [place] [address] India Davalos [address] [place] [address] Social History Tobacco Use Types [...] filedocumented in this encounter Care Teams Case Coordinator Relationship Specialty Start Date End Date Sahra Son MD [address] [address] PCP - General Internal Medicine 10/28/22 documented as of this encounter
--- OUTSIDE RECORDS SUMMARY | 2025-01-25 10:32 | XMS_ITS | Encounter Summary ---
Author Organization [facility] Address [address] [place] [address] Phone Care Team Providers Care Black Topper Name Role Phone Sahra Son MD Primary Care Provider + Encounter Details Date Type Department Care Team (Late st Contact Info) Description 03/03/2024 Orders Only [facility] [place], [address] [place] [address] India Davalos [address] [place] [address] Chronic kidney disease, stage 2 [...] Glucose 152(H) 70 - 99 mg/dL [facility] BUN 16 8 - 27 mg/dL [facility] Creatinine 0.98 0.57 - 1.00 mg/dL [facility] eGFR CKD-EPI CR 2020 64 >59 mL/min/1.7 3 [facility] BUN/Creatinine Ratio 16 12 - 28 [facility] Sodium 137 134 - 144 mmol/L [facility] Potassium 4.8 3.5 - 5.2 mmol/L [facility] Chloride 101 96 - 106 mmol/L [facility] Bicarbonate (CO2) 22 20 - 29 mmol/L [facility] Calcium 8.8 8.7 - 10.3 mg/dL [facility] Albumin 4.0 3.9 - 4.9 g/dL [facility] Phosphorus 4.0 3.0 - 4.3 mg/dL [facility] Blood specimen (specimen) Venous blood / Unknown 03/24/2024 10:37 AM EST 03/24/2024 us Barry Reyes MD LAB BLOOD ORDERABLES Final Re sult [facility] [address] [place] [address] * Ferritin (03/24/2024 10:37 AM EST) Pathologist [facility] Ferritin 37 15 - 150 ng/mL [facility] Blood specimen (specimen) Venous blood / Unknown 03/24/2024 10:37 AM EST 03/24/2024 Barry Reyes MD LAB BLOOD ORDERABLES Final Re sult Performing Organization Address City/[facility]/ZIP Co de Phone Number [facility] [address] [place] [address] * Iron Panel (Fe, TIBC, TSAT) (03/24/2024 10:37 AM EST) [facility] TIBC 293 250 - 450 ug/dL [facility] UIBC 247 118 - 369 ug/dL [facility] Iron 46 27 - 139 ug/dL [facility] Iron Saturation (TSat) 16 15 - 55 % [facility] Blood specimen (specimen) Venous blood / Unknown 03/24/2024 10:37 AM EST 03/24/2024 Barry Reyes MD LAB BLOOD ORDERABLES Final Re sult [facility] [address] [place] [address] * (ABNORMAL) CBC and Differential (03/24/2024 10:37 AM EST) Pathologist [facility] WBC 6.0 3.4 - 10.8 x10E3/uL [facility] RBC 5.21 3.77 - 5.28 x10E6/uL [facility] Hemoglobin 10.0(L) 11.1 - 15.9 g/dL [facility] Hematocrit 35.3 34.0 - 46.6 % [facility] MCV 68(L) 79 - 97 fL [facility] MCH 19.2(L) 26.6 - 33.0 pg [facility] MCHC 28.3(L) 31.5 - 35.7 g/dL [facility] RDW 19.4(H) 11.7 - 15.4 % [facility] Platelets 186 150 - 450 x10E3/uL [facility] Neutrophils Relative 65 Not Estab. % [facility] Lymphocytes Relative 26 Not Estab. % [facility] Monocytes 6 Not Estab. % [facility] Eosinophils Relative 2 Not Estab. % [facility] Basophils Relative 1 Not Estab. % [facility] Neutrophils Absolute 3.9 1.4 - 7.0 x10E3/uL [facility] Lymphocytes Absolute 1.5 0.7 - 3.1 x10E3/uL [facility] Monocytes Absolute 0.3 0.1 - 0.9 x10E3/uL [facility] Eosinophils Absolute 0.1 0.0 - 0.4 x10E3/uL [facility] Basophils Absolute 0.0 0.0 - 0.2 x10E3/uL [facility] Immature Granulocytes 0 Not Estab. % [facility] Immature Grans (Absolute) 0.0 0.0 - 0.1 x10E3/uL [facility] Blood specimen (specimen) Venous blood / Unknown 03/24/2024 10:37 AM EST 03/24/2024 us Barry Reyes MD LAB BLOOD ORDERABLES Final Re sult [facility] [address] [place] [address] documented in this encounter Visit Diagnoses Diagnosis Chronic kidney disease, stage 2 (mild) Anemia in chronic kidney disease Iron deficiency anemia, not otherwise specified documented in this encounter Care Teams Black Topper Relationship Specialty Start Date End Date Sahra Son MD [address] [place] [address] PCP - General Internal Medicine 10/28/22 documented as of this encounter
--- OUTSIDE RECORDS SUMMARY | 2025-01-25 10:32 | XMS_ITS | Encounter Summary ---
Author Organization [facility] [place], Address [address] [place] [address] Phone Care Team Providers Care Recycling Center Operator Name Role Phone Sahra Son MD Primary Care Provider + Encounter Details Date Type Department Care Team (Late st Contact Info) Description 08/25/2024 Documentation Only [facility], [address] [place] [address] India Davalos [address] [place] [address] Social History Tobacco Use Types [...] on filedocumented in this encounter Care Teams Recycling Center Operator Relationship Specialty Start Date End Date Sahra Son MD [address] [address] PCP - General Internal Medicine 10/28/22 documented as of this encounter
--- OUTSIDE RECORDS SUMMARY | 2025-01-25 10:32 | XMS_ITS | Encounter Summary ---
Author Organization [facility] [place], Address [address] [place] [address] Phone Care Team Providers Care Stave Cutting Supervisor Name Role Phone Sahra Son MD Primary Care Provider + Encounter Details Date Type Department Care Team (Late st Contact Info) Description 08/11/2022 Documentation Only [facility] [place], [address] [place] [address] India Davalos [address] [place] [address] Social History Tobacco Use Types [...] filedocumented in this encounter Care Teams Stave Cutting Supervisor Relationship Specialty Start Date End Date Sahra Son MD [address] [address] PCP - General Internal Medicine 10/28/22 documented as of this encounter
--- OUTSIDE RECORDS SUMMARY | 2025-01-25 10:32 | XMS_ITS | Encounter Summary ---
Author Organization [facility] [place], Address [address] [place] [address] Phone Care Team Providers Care Direct Sales Consultant Name Role Phone Sahra Son MD Primary Care Provider + Encounter Details Date Type Department Care Team (Late st Contact Info) Description 03/23/2024 Documentation Only [facility] [place], [address] [place] [address] India Davalos [address] [place] [address] Social History Tobacco Use Types [...] on filedocumented in this encounter Care Teams Direct Sales Consultant Relationship Specialty Start Date End Date Sahra Son MD [address] [address] PCP - General Internal Medicine 10/28/22 documented as of this encounter
--- OUTSIDE RECORDS SUMMARY | 2025-01-25 10:32 | XMS_ITS | Encounter Summary ---
Author Organization [facility] [place], Address [address] [place] [address] Phone Care Team Providers Care Sloop Captain Name Role Phone Sahra Son MD Primary Care Provider + Encounter Details Date Type Department Care Team (Late st Contact Info) Description 01/04/2024 Documentation Only [facility] [place], [address] [place] [address] India Davaols [address] [place] [address] Social History Tobacco Use Types [...] on filedocumented in this encounter Care Teams Sloop Captain Relationship Specialty Start Date End Date Sahra Son MD [address] [address] PCP - General Internal Medicine 10/28/22 documented as of this encounter
--- OUTSIDE RECORDS SUMMARY | 2025-01-25 10:32 | XMS_ITS | Encounter Summary ---
Author Organization [facility] Address [address] [place] [address] Phone Care Team Providers Care Financial Data Analyst Name Role Phone Sahra Son MD Primary Care Provider + Encounter Details Date Type Department Care Team (Late st Contact Info) Description 02/04/2024 Orders Only [facility] [place], [address] [place] [address] India Davalos [address] [place] [address] Chronic kidney disease, stage 2 [...] Glucose 169(H) 70 - 99 mg/dL [facility] BUN 16 8 - 27 mg/dL [facility] Creatinine 1.00 0.57 - 1.00 mg/dL [facility] eGFR CKD-EPI CR 2020 63 >59 mL/min/1.7 3 [facility] BUN/Creatinine Ratio 16 12 - 28 [facility] Sodium 138 134 - 144 mmol/L [facility] Potassium 4.8 3.5 - 5.2 mmol/L [facility] Chloride 100 96 - 106 mmol/L [facility] Bicarbonate (CO2) 22 20 - 29 mmol/L [facility] Calcium 9.1 8.7 - 10.3 mg/dL [facility] Albumin 4.1 3.9 - 4.9 g/dL [facility] Phosphorus 4.2 3.0 - 4.3 mg/dL [facility] Blood specimen (specimen) Venous blood / Unknown 02/22/2024 8:29 AM EDT 02/22/2024 us Barry Reyes MD LAB BLOOD ORDERABLES Final Re sult [facility] [address] [place] [address] * Ferritin (02/22/2024 8:29 AM EDT) Pathologist [facility] Ferritin 47 15 - 150 ng/mL [facility] Blood specimen (specimen) Venous blood / Unknown 02/22/2024 8:29 AM EDT 02/22/2024 Barry Reyes MD LAB BLOOD ORDERABLES Final Re sult Performing Organization Address City/[facility]/ZIP Co de Phone Number [facility] [address] [place] [address] * (ABNORMAL) Iron Panel (Fe, TIBC, TSAT) (02/22/2024 8:29 AM EDT) Pathologist [facility] Iron 39 27 - 139 ug/dL [facility] TIBC 310 250 - 450 ug/dL [facility] UIBC 271 118 - 369 ug/dL [facility] Iron Saturation (TSat) 13(L) 15 - 55 % [facility] Blood specimen (specimen) Venous blood / Unknown 02/22/2024 8:29 AM EDT 02/22/2024 Barry Reyes MD LAB BLOOD ORDERABLES Final Re sult [facility] [address] [place] [address] * (ABNORMAL) CBC and Differential (02/22/2024 8:29 AM EDT) Pathologist [facility] WBC 5.9 3.4 - 10.8 x10E3/uL [facility] RBC 5.33(H) 3.77 - 5.28 x10E6/uL [facility] Hemoglobin 10.3(L) 11.1 - 15.9 g/dL [facility] Hematocrit 35.1 34.0 - 46.6 % [facility] MCV 66(L) 79 - 97 fL [facility] MCH 19.3(L) 26.6 - 33.0 pg [facility] MCHC 29.3(L) 31.5 - 35.7 g/dL [facility] RDW 19.3(H) 11.7 - 15.4 % [facility] Platelets 174 150 - 450 x10E3/uL [facility] Neutrophils Relative 71 Not Estab. % [facility] Lymphocytes Relative 21 Not Estab. % [facility] Monocytes 5 Not Estab. % [facility] Eosinophils Relative 1 Not Estab. % [facility] Basophils Relative 1 Not Estab. % [facility] Neutrophils Absolute 4.2 1.4 - 7.0 x10E3/uL [facility] Lymphocytes Absolute 1.3 0.7 - 3.1 x10E3/uL [facility] Monocytes Absolute 0.3 0.1 - 0.9 x10E3/uL [facility] Eosinophils Absolute 0.1 0.0 - 0.4 x10E3/uL [facility] Basophils Absolute 0.0 0.0 - 0.2 x10E3/uL [facility] Immature Granulocytes 1 Not Estab. % [facility] Immature Grans (Absolute) 0.0 0.0 - 0.1 x10E3/uL [facility] Blood specimen (specimen) Venous blood / Unknown 02/22/2024 8:29 AM EDT 02/22/2024 us Barry Reyes MD LAB BLOOD ORDERABLES Final Re sult [facility] [address] [place] [address] documented in this encounter Visit Diagnoses Diagnosis Chronic kidney disease, stage 2 (mild) Anemia in chronic kidney disease Iron deficiency anemia, not otherwise specified documented in this encounter Care Teams Financial Data Analyst Relationship Specialty Start Date End Date Sahra Son MD [address] [place] [address] PCP - General Internal Medicine 10/28/22 documented as of this encounter
--- OUTSIDE RECORDS SUMMARY | 2025-01-25 10:32 | XMS_ITS | Encounter Summary ---
Author Organization [facility] [place], Address [address] [place] [address] Phone Care Team Providers Care Business Office Associate Name Role Phone Sahra Son MD Primary Care Provider + Encounter Details Date Type Department Care Team (Late st Contact Info) Description 09/28/2022 Documentation Only [facility] [place], [address] [place] [address] India Davalos [address] [place] [address] Social History Tobacco Use Types [...] in this encounter Care Teams Business Office Associate Relationship Specialty Start Date End Date Sahra Sno MD [address] [address] PCP - General Internal Medicine 10/28/22 documented as of this encounter
--- OUTSIDE RECORDS SUMMARY | 2025-01-25 10:32 | XMS_ITS | Encounter Summary ---
Author Organization [facility] [place], Address [address] [place] [address] Phone Care Team Providers Care Adoption Services Manager Name Role Phone Sahra Son MD Primary Care Provider + Encounter Details Date Type Department Care Team (Late st Contact Info) Description 08/28/2024 Documentation Only [facility] [place], [address] [place] [address] India Davalos [address] [place] [address] Social History Tobacco Use Types [...] on filedocumented in this encounter Care Teams Adoption Services Manager Relationship Specialty Start Date End Date Sahra Son MD [address] [address] PCP - General Internal Medicine 10/28/22 documented as of this encounter
--- OUTSIDE RECORDS SUMMARY | 2025-01-25 10:32 | XMS_ITS | Encounter Summary ---
Author Organization [facility], Address [address] [place] [address] Phone Care Team Providers Care Tap Builder Name Role Phone Sahra Son MD Primary Care Provider + Encounter Details Date Type Department Care Team (Late st Contact Info) Description 06/18/2021 Documentation Only [facility], [address] [place] [address] India Davalos [address] [place], [...] on filedocumented in this encounter Care Teams Tap Builder Relationship Specialty Start Date End Date Sahra Son MD [address] [address] PCP - General Internal Medicine 10/28/22 documented as of this encounter
--- OUTSIDE RECORDS SUMMARY | 2025-01-25 10:33 | XMS_ITS | Encounter Summary ---
Author Organization [facility], Address [address] [place] [address] Phone Care Team Providers Care Pre Press Manager Name Role Phone Sahra Son MD Primary Care Provider + Encounter Details Date Type Department Care Team (Late st Contact Info) Description 09/15/2024 Orders Only [facility], [address] [place] [address] India Davalos [address] [place] [address] Chronic kidney disease, stage 2 [...] specified documented in this encounter Care Teams Pre Press Manager Relationship Specialty Start Date End Date Sahra Son MD [address] [address] PCP - General Internal Medicine 10/28/22 documented as of this encounter
--- OUTSIDE RECORDS SUMMARY | 2025-01-25 10:33 | XMS_ITS | Encounter Summary ---
Author Organization [facility], Address [address] [place] [address] Phone Care Team Providers Care Petrol Tanker Driver Name Role Phone Sahra Son MD Primary Care Provider + Encounter Details Date Type Department Care Team (Late st Contact Info) Description 08/05/2023 Documentation Only [facility], [address] [place] [address] India Davalos [address] [place] [address] Social History Tobacco Use Types [...] on filedocumented in this encounter Care Teams Petrol Tanker Driver Relationship Specialty Start Date End Date Sahra Sno MD [address] [address] PCP - General Internal Medicine 10/28/22 documented as of this encounter
--- OUTSIDE RECORDS SUMMARY | 2025-01-25 10:33 | XMS_ITS | Encounter Summary ---
Author Organization [facility] Address [address] [place] [address] Phone Care Team Providers Care Cover Inspector Name Role Phone Sahra Son MD Primary Care Provider + Encounter Details Date Type Department Care Team (Late st Contact Info) Description 08/18/2024 Orders Only [facility], [address] [place] [address] India Davalos 2[address] [place] [address] Chronic kidney disease, stage 2 [...] specified documented in this encounter Care Teams Cover Inspector Relationship Specialty Start Date End Date Sahra Son MD [address] [address] PCP - General Internal Medicine 10/28/22 documented as of this encounter
--- OUTSIDE RECORDS SUMMARY | 2025-01-25 10:33 | XMS_ITS | Encounter Summary ---
Author Organization [facility], Address [address] [place] [address] Phone Care Team Providers Care Museum Archivist Name Role Phone Sahra Son MD Primary Care Provider + Encounter Details Date Type Department Care Team (Late st Contact Info) Description 11/11/2023 Documentation Only [facility], [address] [place] [address] India Davalos [address] [place] [address] Social History Tobacco Use Types [...] on filedocumented in this encounter Care Teams Museum Archivist Relationship Specialty Start Date End Date Sahra Son MD [address] [address] PCP - General Internal Medicine 10/28/22 documented as of this encounter
--- OUTSIDE RECORDS SUMMARY | 2025-01-25 10:33 | XMS_ITS | Encounter Summary ---
Author Organization [facility], Address [address] [place] [address] Phone Care Team Providers Care Heating Equipment Installer Name Role Phone Sahra Son MD Primary Care Provider + Encounter Details Date Type Department Care Team (Late st Contact Info) Description 10/07/2021 Documentation Only [facility], [address] [place] [address] India Davalos [address] [place] [address] Social History Tobacco Use Types [...] on filedocumented in this encounter Care Teams Heating Equipment Installer Relationship Specialty Start Date End Date Sahra Son MD [address] [address] PCP - General Internal Medicine 10/28/22 documented as of this encounter
--- OUTSIDE RECORDS SUMMARY | 2025-01-25 10:33 | XMS_ITS | Encounter Summary ---
Author Organization [facility], Address [address] [place] [address] Phone Care Team Providers Care Sign Maintenance Name Role Phone Sahra Son MD Primary Care Provider + Encounter Details Date Type Department Care Team (Late st Contact Info) Description 08/27/2021 Documentation Only [facility], [address] [place] [address] India Davalos [address] [place], [place] [...] on filedocumented in this encounter Care Teams Sign Maintenance Relationship Specialty Start Date End Date Sahra Son MD [address] [address] PCP - General Internal Medicine 10/28/22 documented as of this encounter
--- OUTSIDE RECORDS SUMMARY | 2025-01-25 10:33 | XMS_ITS | Encounter Summary ---
Author Organization [facility], Address [address] [place] [address] Phone Care Team Providers Care Billing Department Supervisor Name Role Phone Sahra Son MD Primary Care Provider + Encounter Details Date Type Department Care Team (Late st Contact Info) Description 01/06/2022 Documentation Only [facility], [address] [place] [address] Juan Jose Li MD [address] [facility] [place] [place] [address] Social History Tobacco Use Types [...] on filedocumented in this encounter Care Teams Billing Department Supervisor Relationship Specialty Start Date End Date Sahra Son MD [address] [address] PCP - General Internal Medicine 10/28/22 documented as of this encounter
--- OUTSIDE RECORDS SUMMARY | 2025-01-25 10:33 | XMS_ITS | Encounter Summary ---
Author Organization [facility], Address [address] [place] [address] Phone Care Team Providers Care Supply Planner Name Role Phone Sahra Son MD Primary Care Provider + Encounter Details Date Type Department Care Team (Late st Contact Info) Description 12/23/2021 Documentation Only [facility], [address] [facility] [place] [address] Juan Jose Li MD [address] [facility] [place] [address] Social History Tobacco Use Types [...] on filedocumented in this encounter Care Teams Supply Planner Relationship Specialty Start Date End Date Sahra Son MD [address] [address] PCP - General Internal Medicine 10/28/22 documented as of this encounter
--- OUTSIDE RECORDS SUMMARY | 2025-01-25 10:33 | XMS_ITS | Encounter Summary ---
Author Organization [facility], Address [address] [place] [address] Phone Care Team Providers Care Tariff Clerk Name Role Phone Sahra Son MD Primary Care Provider + Encounter Details Date Type Department Care Team (Late st Contact Info) Description 03/11/2023 Documentation Only [facility], [address] [place] [address] India Davalos [address] [place] [address] Social History Tobacco Use [...] on filedocumented in this encounter Care Teams Tariff Clerk Relationship Specialty Start Date End Date Sahra Son MD [address] [address] PCP - General Internal Medicine 10/28/22 documented as of this encounter
--- OUTSIDE RECORDS SUMMARY | 2025-01-25 10:33 | XMS_ITS | Encounter Summary ---
Author Organization [facility], Address [address] [place] [address] Phone Care Team Providers Care Repeat Photocomposing Machine Operator Name Role Phone Sahra Son MD Primary Care Provider + Encounter Details Date Type Department Care Team (Late st Contact Info) Description 11/30/2023 Documentation Only [facility], [address] [place] [address] India Davalos [address] [place] [address] Social History Tobacco Use [...] on filedocumented in this encounter Care Teams Repeat Photocomposing Machine Operator Relationship Specialty Start Date End Date Sahra Son MD [address] [address] PCP - General Internal Medicine 10/28/22 documented as of this encounter
--- OUTSIDE RECORDS SUMMARY | 2025-01-25 10:33 | XMS_ITS | Encounter Summary ---
Author Organization [facility], Address [address] [place] [address] Phone Care Team Providers Care Sheet Rock Taper Helper Name Role Phone Sahra Son MD Primary Care Provider + Encounter Details Date Type Department Care Team (Late st Contact Info) Description 11/11/2023 Documentation Only [facility], [address] [place] [address] India Davalos [address] [place] [address] Social History Tobacco Use Types [...] on filedocumented in this encounter Care Teams Sheet Rock Taper Helper Relationship Specialty Start Date End Date Sahra Son MD [address] [address] PCP - General Internal Medicine 10/28/22 documented as of this encounter
--- OUTSIDE RECORDS SUMMARY | 2025-01-25 10:33 | XMS_ITS | Encounter Summary ---
Author Organization [facility], Address [address] [place] [address] Phone Care Team Providers Care Foreign Service Officer Name Role Phone Sahra Son MD Primary Care Provider + Encounter Details Date Type Department Care Team (Late st Contact Info) Description 08/22/2021 Documentation Only [facility], [address] [place] [address] India Davalos [address] [place] [address] Social History Tobacco Use Types [...] on filedocumented in this encounter Care Teams Foreign Service Officer Relationship Specialty Start Date End Date Sahra Son MD [address] [address] PCP - General Internal Medicine 10/28/22 documented as of this encounter
--- OUTSIDE RECORDS SUMMARY | 2025-01-25 10:33 | XMS_ITS | Encounter Summary ---
Author Organization [facility], Address [address] [place] [address] Phone Care Team Providers Care Court Interpreter Name Role Phone Sahra Son MD Primary Care Provider + Encounter Details Date Type Department Care Team (Late st Contact Info) Description 11/05/2023 Documentation Only [facility], [address] [place] [address] India Davalos [address] [place] [address] Social History Tobacco Use Types [...] on filedocumented in this encounter Care Teams Court Interpreter Relationship Specialty Start Date End Date Sahra Son MD [address] [address] PCP - General Internal Medicine 10/28/22 documented as of this encounter
--- OUTSIDE RECORDS SUMMARY | 2025-01-25 10:33 | XMS_ITS | Encounter Summary ---
Author Organization [facility], Address [address] [place] [address] Phone Care Team Providers Care Double End Sewer Name Role Phone Sahra Son MD Primary Care Provider + Encounter Details Date Type Department Care Team (Late st Contact Info) Description 07/16/2023 Documentation Only [facility], [address] [place] [address] India Davalos [address] [place] [address] Social History Tobacco Use Types [...] in this encounter Care Teams Double End Sewer Relationship Specialty Start Date End Date Sahra Son MD [address] [address] PCP - General Internal Medicine 10/28/22 documented as of this encounter
--- OUTSIDE RECORDS SUMMARY | 2025-01-25 10:33 | XMS_ITS | Encounter Summary ---
Author Organization [facility], Address [address] [place] [address] Phone Care Team Providers Care Ground Transportation Operator Name Role Phone Sahra Son MD Primary Care Provider + Encounter Details Date Type Department Care Team (Late st Contact Info) Description 03/11/2023 Documentation Only [facility], [address] [place] [address] India Davalos [address] [place] [address] Social History Tobacco Use [...] on filedocumented in this encounter Care Teams Ground Transportation Operator Relationship Specialty Start Date End Date Sahra Son MD [address] [address] PCP - General Internal Medicine 10/28/22 documented as of this encounter
--- OUTSIDE RECORDS SUMMARY | 2025-01-25 10:33 | XMS_ITS | Encounter Summary ---
Author Organization [facility], Address [address] [place] [address] Phone Care Team Providers Care Senior Contracts Administrator Name Role Phone Sahra Son MD Primary Care Provider + Encounter Details Date Type Department Care Team (Late st Contact Info) Description 08/09/2023 Documentation Only [facility], [address] [place] [address] India Davalos [address] [place] [address] Social History Tobacco Use Types [...] filedocumented in this encounter Care Teams Senior Contracts Administrator Relationship Specialty Start Date End Date Sahra Son MD [address] [address] PCP - General Internal Medicine 10/28/22 documented as of this encounter
--- OUTSIDE RECORDS SUMMARY | 2025-01-25 10:33 | XMS_ITS | Encounter Summary ---
Author Organization [facility], Address [address] [place] [address] Phone Care Team Providers Care Business Taxes Specialist Name Role Phone Sahra Son MD Primary Care Provider + Encounter Details Date Type Department Care Team (Late st Contact Info) Description 06/09/2023 Documentation Only [facility], [address] [place] [address] India Davalos [address] [place] [address] Social History Tobacco Use Types [...] filedocumented in this encounter Care Teams Business Taxes Specialist Relationship Specialty Start Date End Date Sahra Son MD [address] [address] PCP - General Internal Medicine 10/28/22 documented as of this encounter
--- OUTSIDE RECORDS SUMMARY | 2025-01-25 10:33 | XMS_ITS | Encounter Summary ---
Author Organization [facility], Address [address] [place] [address] Phone Care Team Providers Care Membership Manager Name Role Phone Sahra Son MD Primary Care Provider + Encounter Details Date Type Department Care Team (Late st Contact Info) Description 11/21/2021 Documentation Only [facility], [address] [place] [address] India Davalos [address] [place] [address] Social History Tobacco Use Types [...] on filedocumented in this encounter Care Teams Membership Manager Relationship Specialty Start Date End Date Sahra Son MD [address] [address] PCP - General Internal Medicine 10/28/22 documented as of this encounter
--- OUTSIDE RECORDS SUMMARY | 2025-01-25 10:33 | XMS_ITS | Encounter Summary ---
Author Organization [facility], Address [address] [place] [address] Phone Care Team Providers Care Customer Program Specialist Name Role Phone Sahra Son MD Primary Care Provider + Encounter Details Date Type Department Care Team (Late st Contact Info) Description 11/17/2023 Documentation Only [facility], [address] [place] [address] India Davalos [address] [place] [address] Social History Tobacco Use Types [...] filedocumented in this encounter Care Teams Customer Program Specialist Relationship Specialty Start Date End Date Sahra Son MD [address] [address] PCP - General Internal Medicine 10/28/22 documented as of this encounter
--- OUTSIDE RECORDS SUMMARY | 2025-01-25 10:33 | XMS_ITS | Encounter Summary ---
Author Organization [facility], Address [address] [place] [address] Phone Care Team Providers Care Mail Messenger Contractor Name Role Phone Sahra Son MD Primary Care Provider + Encounter Details Date Type Department Care Team (Late st Contact Info) Description 11/11/2023 Documentation Only [facility], [address] [place] [place] [address] India Davalos [address] [place] [address] Social History Tobacco Use Types [...] on filedocumented in this encounter Care Teams Mail Messenger Contractor Relationship Specialty Start Date End Date Sahra Son MD [address] [address] PCP - General Internal Medicine 10/28/22 documented as of this encounter
--- OUTSIDE RECORDS SUMMARY | 2025-01-25 10:33 | XMS_ITS | Encounter Summary ---
Author Organization [facility], Address [address] [place] [address] Phone Care Team Providers Care Education Specialist Name Role Phone Sahra Son MD Primary Care Provider + Encounter Details Date Type Department Care Team (Late st Contact Info) Description 06/09/2024 Orders Only [facility], [address] [place] [address] India Davalos [address] [place] [address] Anemia in chronic kidney disease; [...] (mild) documented in this encounter Care Teams Education Specialist Relationship Specialty Start Date End Date Sahra Son MD [address] [address] PCP - General Internal Medicine 10/28/22 documented as of this encounter
--- OUTSIDE RECORDS SUMMARY | 2025-01-25 10:33 | XMS_ITS | Encounter Summary ---
Author Organization [facility], Address [address] [place] [address] Phone Care Team Providers Care Electrical Line Splicer Name Role Phone Sahra Son MD Primary Care Provider + Encounter Details Date Type Department Care Team (Late st Contact Info) Description 11/11/2023 Documentation Only [facility], [address] [place] [address] India Davalos [address] [place] [address] Social History Tobacco Use Types [...] filedocumented in this encounter Care Teams Electrical Line Splicer Relationship Specialty Start Date End Date Sahra Son MD [address] [address] PCP - General Internal Medicine 10/28/22 documented as of this encounter
--- OUTSIDE RECORDS SUMMARY | 2025-01-25 10:33 | XMS_ITS | Encounter Summary ---
Author Organization [facility], Address [address] [place] [address] Phone Care Team Providers Care Issue Clerk Name Role Phone Sahra Son MD Primary Care Provider + Encounter Details Date Type Department Care Team (Late st Contact Info) Description 11/11/2023 Documentation Only [facility], [address] [place] [address] India Davalos [address] [place] [address] Social History Tobacco Use Types [...] on filedocumented in this encounter Care Teams Issue Clerk Relationship Specialty Start Date End Date Sahra Son MD [address] [address] PCP - General Internal Medicine 10/28/22 documented as of this encounter
--- OUTSIDE RECORDS SUMMARY | 2025-01-25 10:33 | XMS_ITS | Encounter Summary ---
Author Organization [facility], Address [address] [place] [address] Phone Care Team Providers Care Telehealth Nurse Educator Name Role Phone Sahra Son MD Primary Care Provider + Encounter Details Date Type Department Care Team (Late st Contact Info) Description 03/11/2023 Documentation Only [facility], [address] [place] [address] India Davalos [address] [place] [address] Social History Tobacco Use Types [...] on filedocumented in this encounter Care Teams Telehealth Nurse Educator Relationship Specialty Start Date End Date Sahra Son MD [address] [address] PCP - General Internal Medicine 10/28/22 documented as of this encounter
--- OUTSIDE RECORDS SUMMARY | 2025-01-25 10:33 | XMS_ITS | Encounter Summary ---
Author Organization [facility], Address [address] [place] [address] Phone Care Team Providers Care Bending Press Operator Name Role Phone Sahra Son MD Primary Care Provider + Encounter Details Date Type Department Care Team (Late st Contact Info) Description 11/19/2023 Documentation Only [facility], [address] [place] [address] India Davalos [address] [place] [address] Social History Tobacco Use Types [...] on filedocumented in this encounter Care Teams Bending Press Operator Relationship Specialty Start Date End Date Sahra Son MD [address] [address] PCP - General Internal Medicine 10/28/22 documented as of this encounter
--- OUTSIDE RECORDS SUMMARY | 2025-01-25 10:33 | XMS_ITS | Encounter Summary ---
Author Organization [facility], Address [address] [place] [address] Phone Care Team Providers Care Sample Steamer Name Role Phone Sahra Son MD Primary Care Provider + Encounter Details Date Type Department Care Team (Late st Contact Info) Description 07/16/2023 Documentation Only [facility], [address] [place] [address] India Davalos [address] [place] [address] Social History Tobacco Use Types [...] on filedocumented in this encounter Care Teams Sample Steamer Relationship Specialty Start Date End Date Sahra Son MD [address] [address] PCP - General Internal Medicine 10/28/22 documented as of this encounter
--- OUTSIDE RECORDS SUMMARY | 2025-01-25 10:33 | XMS_ITS | Encounter Summary ---
Author Organization [facility], Address [address] [place] [address] Phone Care Team Providers Care Office Administration Name Role Phone Sahra Son MD Primary Care Provider + Encounter Details Date Type Department Care Team (Late st Contact Info) Description 12/24/2022 Documentation Only [facility], [address] [place] [address] Carol Whelan [address] [place] [address] Social History Tobacco [...] filedocumented in this encounter Care Teams Office Administration Relationship Specialty Start Date End Date Sahra Son MD [address] [address] PCP - General Internal Medicine 10/28/22 documented as of this encounter
--- OUTSIDE RECORDS SUMMARY | 2025-01-25 10:33 | XMS_ITS | Encounter Summary ---
Author Organization [facility], Address [address] [place] [address] Phone Care Team Providers Care Telecommunications Specialist Name Role Phone Sahra Son MD Primary Care Provider + Encounter Details Date Type Department Care Team (Late st Contact Info) Description 11/11/2023 Documentation Only [facility], [address] [place] [address] India Davalos [address] [place] [address] Social History Tobacco Use [...] on filedocumented in this encounter Care Teams Telecommunications Specialist Relationship Specialty Start Date End Date Sahra Son MD [address] [address] PCP - General Internal Medicine 10/28/22 documented as of this encounter
--- OUTSIDE RECORDS SUMMARY | 2025-01-25 10:33 | XMS_ITS | Encounter Summary ---
Author Organization [facility] [place], Address [address] [place] [address] Phone Care Team Providers Care Uncrater Name Role Phone Sahra Son MD Primary Care Provider + Encounter Details Date Type Department Care Team (Late st Contact Info) Description 01/31/2024 Orders Only [facility] [place], [address] [place] [address] Arlene [place], EMMA [address] [place] [address] Chronic kidney disease, stage 2 [...] (HCC) documented in this encounter Care Teams Uncrater Relationship Specialty Start Date End Date Sahra Son MD [address] [facility] [address] [place], [place] [phone] PCP - General Internal Medicine 10/28/22 documented as of this encounter
--- OUTSIDE RECORDS SUMMARY | 2025-01-25 10:33 | XMS_ITS | Encounter Summary ---
Author Organization [facility] Address [address] [place] [address] Phone Care Team Providers Care Manager Laboratory Name Role Phone Sahra Son MD Primary Care Provider + Encounter Details Date Type Department Care Team (Late st Contact Info) Description 05/17/2023 Orders Only [facility] [place], [address] [place] [phone] Arlene Alston PA [address] [place] [address] Chronic kidney disease, stage 2 [...] (Fe, TIBC, TSAT) (06/08/2023 8:36 AM EST) [facility] Iron 49 (30-160) MCG/DL [facility] UIBC 246 (110-370) MCG/DL [facility] TIBC 295 (140-530) MCG/DL [facility] Iron Saturation (TSat) 17(L) (20-55) % [facility] Comment: Testing performed or reported by [facility], a Service of [facility], [address] [place] [address] Luis A Bailey MD, Plastics Supervisor [facility]# [id number] Blood specimen (specimen) Venous blood / Unknown 06/08/2023 8:36 AM EST 06/08/2023 8:39 AM EST Arlene CARTER LAB BLOOD ORDERABLES Final Re sult [facility] * Vitamin D 25 hydroxy (06/08/2023 8:36 AM EST) Vitamin D, 25-Hydroxy 24.8 (20-50) NG/ML [facility] Comment: Testing performed or reported by [facility], a Service of [facility], [address] [place] [address] Luis A Bailey MD, Plastics Supervisor [facility]# [id number] Blood specimen (specimen) Venous blood / Unknown 06/08/2023 8:36 AM EST 06/08/2023 8:39 AM EST Arlene CARTER LAB BLOOD ORDERABLES Final Re sult [facility] * (ABNORMAL) Renal function panel (06/08/2023 8:36 AM EST) Glucose 166(H) (70-99) MG/DL [facility] BUN 19 (8-23) MG/DL [facility] Creatinine 1.0 (0.5-1.0) MG/DL [facility] Sodium 138 (133-145) MMOL/L [facility] Potassium 4.9 (3.6-5.2) MMOL/L [facility] Chloride 101 (98-107) MMOL/L [facility] Bicarbonate (CO2) 27 (22-29) MMOL/L [facility] Anion Gap 10 (4-17) [facility] Albumin 4.2 (3.4-4.8) GM/DL [facility] Calcium 9.1 (8.6-10.5) MG/DL [facility] Phosphorus, Serum 3.4 (2.5-4.5) MG/DL [facility] Est GFR Non 66 ML/MIN/1.7 3 M2 [facility] Comment: Creatinine based estimated glomerular filtration (eGFR) in adults is calculated using the National Kidney Foundation recommended 2020 CKD-EPI equation. Estimates GFR from serum creatinine, age and sex. Testing performed or reported by [facility], a Service of [facility], [address] [place] [address] Luis A Bailey MD, Plastics Supervisor CLIA# [id number] Blood specimen (specimen) Venous blood / Unknown 06/08/2023 8:36 AM EST 06/08/2023 8:39 AM EST Arlene CARTER LAB BLOOD ORDERABLES Final Re sult Performing Organization Address [facility] de Phone Number [facility] * Magnesium (06/08/2023 8:36 AM EST) Magnesium 2.1 (1.6-2.3) mg/dL [facility] Comment: Testing performed or reported by [facility], a Service of [facility], [address] [place] [address] Luis A Bailey MD, Plastics Supervisor CLIA# [id number] Blood specimen (specimen) Venous blood / Unknown 06/08/2023 8:36 AM EST 06/08/2023 8:39 AM EST Arlene CARTER LAB BLOOD ORDERABLES Final Re sult Performing Organization Address [facility] de Phone Number [facility] * (ABNORMAL) Hemoglobin A1c (06/08/2023 8:36 AM EST) Hemoglobin A1C 7.2(H) (4.0-5.6) % [facility] Comment: MONITORING: In known diabetic patients, hemoglobin A1c targets should be discussed with health care provider. DIAGNOSTIC USE: The [place] Diabetes Association (ADA) and the World Health [...] Supplement 1 Testing performed or reported by [facility], a Service of [facility], [address] [place] [address] Luis A Bailey MD, Plastics Supervisor [facility]# [id number] Blood specimen (specimen) Venous blood / Unknown [...] K/MM3 [facility] Eosinophils Relative 0.1 (0.0-0.4) K/MM3 [facility] Basophil ABS 0.0 (0.0-0.1) K/MM3 [facility] Granulocytes Absolute 0.0 K/MM3 [facility] Neutrophils % Auto 67.3 (44-76) % [facility] Lymphs 24.0 (15-43) % [facility] Monocytes Absolute 5.8 (4.5-10.5 ) % [facility] Eosinophils 1.7 (0-6) % [facility] Basophils Relative 0.8 (0-2) % [facility] Immature Granulocytes 0.4 % [facility] Comment: Testing performed or reported by [facility], a Service of [facility], [address] [place] [address] Luis A Bailey MD, Plastics Supervisor [facility]# [id number] Blood specimen (specimen) Venous blood / Unknown [...] documented in this encounter Care Teams Manager Laboratory Relationship Specialty Start Date End Date Sahra Son MD [address] [place] [address] PCP - General Internal Medicine 10/28/22 documented as of this encounter
--- OUTSIDE RECORDS SUMMARY | 2025-01-25 10:33 | XMS_ITS | Encounter Summary ---
Author Organization [facility] [place], Address [address] [place] [address] Phone Care Team Providers Care Corporate Treasury Analyst Name Role Phone Sahra Son MD Primary Care Provider + Encounter Details Date Type Department Care Team ([facility] st Contact Info) Description 04/14/2022 Documentation Only [facility] [place], [address] [place] [address] India Davalos [address] [place] [address] Social History Tobacco Use Types [...] on filedocumented in this encounter Care Teams Corporate Treasury Analyst Relationship Specialty Start Date End Date Sahra Son MD [address] [address] PCP - General Internal Medicine 10/28/22 documented as of this encounter
--- OUTSIDE RECORDS SUMMARY | 2025-01-25 10:34 | XMS_ITS | Encounter Summary ---
Author Organization [facility] [place], Address [address] [place] [address] Phone Care Team Providers Care Windshield Wiper Repairer Name Role Phone Sahra Son MD Primary Care Provider + Encounter Details Date Type Department Care Team (Late st Contact Info) Description 12/18/2024 Documentation Only [facility] [place], [address] [place] [address] India Davalos [address] [place] [address] Social History Tobacco Use Types [...] on filedocumented in this encounter Care Teams Windshield Wiper Repairer Relationship Specialty Start Date End Date Sahra Son MD [address] [address] PCP - General Internal Medicine 10/28/22 documented as of this encounter
--- OUTSIDE RECORDS SUMMARY | 2025-01-25 10:34 | XMS_ITS | Encounter Summary ---
Author Organization [facility] [place], Address [address] [place] [address] Phone Care Team Providers Care Sash Finisher Name Role Phone Sahra Son MD Primary Care Provider + Encounter Details Date Type Department Care Team (Late st Contact Info) Description 06/25/2021 Documentation Only [facility] [place], [address] [place] [address] India Davalos [address] [place] [address] Social History Tobacco Use Types [...] filedocumented in this encounter Care Teams Sash Finisher Relationship Specialty Start Date End Date Sahra Son MD [address] [address] PCP - General Internal Medicine 10/28/22 documented as of this encounter
--- OUTSIDE RECORDS SUMMARY | 2025-01-25 10:34 | XMS_ITS | Encounter Summary ---
Author Organization [facility] Address [address] [place] [address] Phone Care Team Providers Care Labor Service Representative Name Role Phone Sahra Son MD Primary Care Provider + Encounter Details Date Type Department Care Team (Late st Contact Info) Description 09/01/2024 Orders Only [facility] [place], [address] [place] [address] India Davalos [address] [place] [address] Anemia in chronic kidney disease; [...] Glucose 233(H) 70 - 99 mg/dL [facility] BUN 15 8 - 27 mg/dL [facility] Creatinine 1.01(H) 0.57 - 1.00 mg/dL [facility] eGFR CKD-EPI CR 2020 62 >59 mL/min/1.7 3 [facility] BUN/Creatinine Ratio 15 12 - 28 [facility] Sodium 138 134 - 144 mmol/L [facility] Potassium 4.9 3.5 - 5.2 mmol/L [facility] Chloride 101 96 - 106 mmol/L [facility] Bicarbonate (CO2) 19(L) 20 - 29 mmol/L [facility] Calcium 9.1 8.7 - 10.3 mg/dL [facility] Albumin 4.2 3.9 - 4.9 g/dL [facility] Phosphorus 3.8 3.0 - 4.3 mg/dL [facility] Blood specimen (specimen) Venous blood / Unknown 09/06/2024 8:15 AM EDT 09/06/2024 us Barry Reyes MD LAB BLOOD ORDERABLES Final Re sult [facility] [address] [place] [address] * Ferritin (09/06/2024 8:15 AM EDT) Pathologist [facility] Ferritin 37 15 - 150 ng/mL [facility] Blood specimen (specimen) Venous blood / Unknown 09/06/2024 8:15 AM EDT 09/06/2024 Barry Reyes MD LAB BLOOD ORDERABLES Final [facility] [address] [place] [address] * (ABNORMAL) Iron Panel (Fe, TIBC, TSAT) (09/06/2024 8:15 AM EDT) Pathologist [facility] TIBC 323 250 - 450 ug/dL [facility] UIBC 286 118 - 369 ug/dL [facility] Iron 37 27 - 139 ug/dL [facility] Iron Saturation (TSat) 11(L) 15 - 55 % [facility] Blood specimen (specimen) Venous blood / Unknown 09/06/2024 8:15 AM EDT 09/06/2024 Barry Reyes MD LAB BLOOD ORDERABLES Final Re sult [facility] [address] [place] [address] * (ABNORMAL) CBC and Differential (09/06/2024 8:15 AM EDT) Pathologist [facility] WBC 6.3 3.4 - 10.8 x10E3/uL [facility] RBC 5.35(H) 3.77 - 5.28 x10E6/uL [facility] Hemoglobin 10.6(L) 11.1 - 15.9 g/dL [facility] Hematocrit 35.8 34.0 - 46.6 % [facility] MCV 67(L) 79 - 97 fL [facility] MCH 19.8(L) 26.6 - 33.0 pg [facility] MCHC 29.6(L) 31.5 - 35.7 g/dL [facility] RDW 18.4(H) 11.7 - 15.4 % [facility] Platelets 190 150 - 450 x10E3/uL [facility] Neutrophils Relative 67 Not Estab. % [facility] Lymphocytes Relative 22 Not Estab. % [facility] Monocytes 6 Not Estab. % [facility] Eosinophils Relative 3 Not Estab. % [facility] Basophils Relative 1 Not Estab. % [facility] Neutrophils Absolute 4.3 1.4 - 7.0 x10E3/uL [facility] Lymphocytes Absolute 1.4 0.7 - 3.1 x10E3/uL [facility] Monocytes Absolute 0.4 0.1 - 0.9 x10E3/uL [facility] Eosinophils Absolute 0.2 0.0 - 0.4 x10E3/uL [facility] Basophils Absolute 0.1 0.0 - 0.2 x10E3/uL [facility] Immature Granulocytes 1 Not Estab. % [facility] Immature Grans (Absolute) 0.1 0.0 - 0.1 x10E3/uL [facility] Blood specimen (specimen) Venous blood / Unknown 09/06/2024 8:15 AM EDT 09/06/2024 us Barry Reyes MD LAB BLOOD ORDERABLES Final Re sult [facility] [address] [place] [phone] documented in this encounter Visit Diagnoses Diagnosis Anemia in chronic kidney disease Other iron deficiency anemia Chronic kidney disease, stage 2 (mild) documented in this encounter Care Teams Labor Service Representative Relationship Specialty Start Date End Date Sahra Son MD [address] [place] [address] PCP - General Internal Medicine 10/28/22 documented as of this encounter
--- OUTSIDE RECORDS SUMMARY | 2025-01-25 10:34 | XMS_ITS | Clinical Summary ---
Author Organization [facility] [place], Address [address] [place] [address] [place] [address] Phone Care Team Providers Care Product Consultant Name Role Phone Sahra Son MD Primary Care Provider + Allergies Active Allergy Reactions Criticality Noted Date Comments Codeine 12/26/2012 Ferumoxytol Shortness of breath,Itching,Other (see comments) High 02/27/2022 Bones hurt Iodinated Contrast Media 07/06/2022 Penicillins 12/26/2012 Other Shellfish Allergy 12/26/2012 Tramadol 07/06/2022 Trazodone 03/08/2018 Iron Sucrose 02/29/2024 Coughing fit infusion stopped at [facility] Medications Cymbalta [address] capsule TK 2 CS PO QAM 12/28/19 20 Active LORazepam (ATIVAN) 1 MG tablet TK 1 T PO BID 12/24/19 20 Active meclizine (ANTIVERT) 25 MG tablet TK 1 T PO TID PRN 12/24/19 20 Active montelukast (SINGULAIR) 10 MG tablet TK 1 T PO QD IN THE DARCY 11/19/19 20 Active Creon 12469-43116 units capsule TK ONE C PO TID [...] [facility] [address] [place] [address] [place], [place] Anemia in chronic kidney disease; Other iron deficiency anemia; Chronic kidney disease, stage 2 (mild) 01/10/2025 Telephone [facility] [address] [place] [address] Stephanie Azul RN 12/22/2024 Orders Only [facility] [address] [place] [address] [place], [place] Anemia in chronic kidney disease; Other iron deficiency anemia; Chronic kidney disease, stage 2 (mild) 12/18/2024 Documentation Only [facility] [address] [place] [address] [place], [place] 11/24/2024 Orders Only [facility] [address] [place] [address] [place], [place] Anemia in chronic kidney disease; Other iron deficiency anemia; Chronic kidney disease, stage 2 (mild) 11/13/2024 Documentation Only [facility] [address] [place] [address] [place], [place] 11/10/2024 Orders Only [facility] [address] [place] [address] [place], [place] Chronic kidney disease, stage 2 (mild); Anemia in chronic kidney disease; Iron deficiency anemia, not otherwise specified 10/27/2024 Orders Only [facility] [place] [address] [place] [address] India Davalos Anemia in chronic kidney disease; [...] TIBC 238(L) 250 - 450 ug/dL [facility] UIBC 168 118 - 369 ug/dL [facility] Iron 70 27 - 139 ug/dL [facility] Iron Saturation (TSat) 29 15 - 55 % [facility] Blood specimen (specimen) Venous blood / Unknown 11/01/2024 8:45 AM EDT 11/01/2024 Barry Reyes MD LAB BLOOD ORDERABLES Final Re sult [facility] [address] [place] [address] * (ABNORMAL) CBC and Differential (11/01/2024 8:45 AM EDT) Pathologist [facility] WBC 6.6 3.4 - 10.8 x10E3/uL [facility] RBC 5.45(H) 3.77 - 5.28 x10E6/uL [facility] Hemoglobin 11.2 11.1 - 15.9 g/dL [facility] Hematocrit 38.3 34.0 - 46.6 % [facility] MCV 70(L) 79 - 97 fL [facility] MCH 20.6(L) 26.6 - 33.0 pg [facility] MCHC 29.2(L) 31.5 - 35.7 g/dL [facility] RDW 18.8(H) 11.7 - 15.4 % [facility] Platelets 175 150 - 450 x10E3/uL [facility] Neutrophils Relative 71 Not Estab. % [facility] Lymphocytes Relative 20 Not Estab. % [facility] Monocytes 6 Not Estab. % [facility] Eosinophils Relative 1 Not Estab. % [facility] Basophils Relative 1 Not Estab. % [facility] Neutrophils Absolute 4.7 1.4 - 7.0 x10E3/uL [facility] Lymphocytes Absolute 1.3 0.7 - 3.1 x10E3/uL [facility] Monocytes Absolute 0.4 0.1 - 0.9 x10E3/uL [facility] Eosinophils Absolute 0.1 0.0 - 0.4 x10E3/uL [facility] Basophils Absolute 0.1 0.0 - 0.2 x10E3/uL [facility] Immature Granulocytes 1 Not Estab. % [facility] Immature Grans (Absolute) 0.0 0.0 - 0.1 x10E3/uL [facility] Blood specimen (specimen) Venous blood / Unknown 11/01/2024 8:45 AM EDT 11/01/2024 us Barry Reyes MD LAB BLOOD ORDERABLES Final Re sult [facility] [address] [place] [address] * (ABNORMAL) Ferritin (11/01/2024 8:45 AM EDT) Ferritin 480(H) 15 - 150 ng/mL [facility] Blood specimen (specimen) Venous blood / Unknown 11/01/2024 8:45 AM EDT 11/01/2024 Barry Reyes MD LAB BLOOD ORDERABLES Final Re sult [facility] [address] [place] [address] * (ABNORMAL) Renal Function Panel (11/01/2024 8:45 AM EDT) Glucose 238(H) 70 - 99 mg/dL [facility] BUN 15 8 - 27 mg/dL [facility] Creatinine 0.96 0.57 - 1.00 mg/dL [facility] eGFR CKD-EPI CR 2020 66 >59 mL/min/1.7 3 [facility] BUN/Creatinine Ratio 16 12 - 28 [facility] Sodium 137 134 - 144 mmol/L [facility] Potassium 4.7 3.5 - 5.2 mmol/L [facility] Chloride 100 96 - 106 mmol/L [facility] Bicarbonate (CO2) 20 20 - 29 mmol/L [facility] Calcium 9.0 8.7 - 10.3 mg/dL [facility] Albumin 4.3 3.9 - 4.9 g/dL [facility] Phosphorus 2.8(L) 3.0 - 4.3 mg/dL [facility] Blood specimen (specimen) Venous blood / Unknown 11/01/2024 8:45 AM EDT 11/01/2024 Barry Reyes MD LAB BLOOD ORDERABLES Final Re sult [facility] [address] [place] [phone] * (ABNORMAL) Hemoglobin A1c (06/08/2023 8:36 AM EST) Hemoglobin A1C 7.2(H) (4.0-5.6) % [facility] Comment: MONITORING: In known diabetic patients, hemoglobin A1c targets should be discussed with health care provider. DIAGNOSTIC USE: The Citizen Of [place] Diabetes Association (ADA) and the World Health [...] Supplement 1 Testing performed or reported by [facility], a Service of [facility], [address] [place] [address] Luis A Bailey MD, Construction Representative [facility]# [id number] Blood specimen (specimen) Venous blood / Unknown 06/08/2023 8:36 AM EST 06/08/2023 8:38 AM EST Arlene CARTER LAB BLOOD ORDERABLES Final Re sult [facility] from Last 3 Months or Most Recently Relevant to Health Maintenance Insurance [id number] [employer] Dual SNP ([id number]) [place] [id number] Care Teams Product Consultant Relationship Specialty Start Date End Date Sahra Son MD [address] [address] PCP - General Internal Medicine 10/28/22
--- OUTSIDE RECORDS SUMMARY | 2025-01-25 10:34 | XMS_ITS | Encounter Summary ---
Author Organization [facility] [place], Address [address] [place] [address] Phone Care Team Providers Care Inclusion Specialist Name Role Phone Sahra Son MD Primary Care Provider + Encounter Details Date Type Department Care Team ([facility] st Contact Info) Description 04/05/2024 Documentation Only [facility] [place], [address] [place] [address] India Davalos [address] [place] [address] Social History Tobacco Use Types [...] on filedocumented in this encounter Care Teams Inclusion Specialist Relationship Specialty Start Date End Date Sahra Son MD [address] [address] PCP - General Internal Medicine 10/28/22 documented as of this encounter
--- OUTSIDE RECORDS SUMMARY | 2025-01-25 10:34 | XMS_ITS | Encounter Summary ---
Author Organization [facility] Address [address] [place] [address] Phone Care Team Providers Care Chain Dyer Name Role Phone Sahra Son MD Primary Care Provider + Encounter Details Date Type Department Care Team (Late st Contact Info) Description 01/19/2025 Orders Only [facility] [place], [address] [place] [address] India Davalos [address] [place] [address] Anemia in chronic kidney disease; [...] (mild) documented in this encounter Care Teams Chain Dyer Relationship Specialty Start Date End Date Sahra Son MD [address] [address] PCP - General Internal Medicine 10/28/22 documented as of this encounter
--- OUTSIDE RECORDS SUMMARY | 2025-01-25 10:34 | XMS_ITS | Encounter Summary ---
Author Organization [facility] [place], Address [address] [place] [address] Phone Care Team Providers Care Dental Office Receptionist Name Role Phone Sahra Son MD Primary Care Provider + Encounter Details Date Type Department Care Team (Late st Contact Info) Description 10/26/2022 Documentation Only [facility] [place], [address] [place] [address] India Davalos [address] [place], [place] [...] on filedocumented in this encounter Care Teams Dental Office Receptionist Relationship Specialty Start Date End Date Sahra Son MD [address] [address] PCP - General Internal Medicine 10/28/22 documented as of this encounter
--- OUTSIDE RECORDS SUMMARY | 2025-01-25 10:34 | XMS_ITS | Encounter Summary ---
Author Organization [facility] Address [address] [place] [address] Phone Care Team Providers Care Product Consultant Name Role Phone Sahra Son MD Primary Care Provider + Encounter Details Date Type Department Care Team (Late st Contact Info) Description 05/26/2024 Orders Only [facility] [place], [address] [place] [address] India Davalos [address] [place] [address] Chronic kidney disease, stage 2 [...] Glucose 168(H) 70 - 99 mg/dL [facility] BUN 17 8 - 27 mg/dL [facility] Creatinine 1.09(H) 0.57 - 1.00 mg/dL [facility] eGFR CKD-EPI CR 2020 57(L) >59 mL/min/1.7 3 [facility] BUN/Creatinine Ratio 16 12 - 28 [facility] Sodium 137 134 - 144 mmol/L [facility] Potassium 4.8 3.5 - 5.2 mmol/L [facility] Chloride 99 96 - 106 mmol/L [facility] Bicarbonate (CO2) 23 20 - 29 mmol/L [facility] Calcium 9.0 8.7 - 10.3 mg/dL [facility] Albumin 4.2 3.9 - 4.9 g/dL [facility] Phosphorus 4.4(H) 3.0 - 4.3 mg/dL [facility] Blood specimen (specimen) Venous blood / Unknown 06/07/2024 11:53 AM EST 06/07/2024 us Barry Reyes MD LAB BLOOD ORDERABLES Final Re sult [facility] [address] [place] [address] * Ferritin (06/07/2024 11:53 AM EST) Pathologist [facility] Ferritin 102 15 - 150 ng/mL [facility] Blood specimen (specimen) Venous blood / Unknown 06/07/2024 11:53 AM EST 06/07/2024 Barry Reyes MD LAB BLOOD ORDERABLES Final Re sult [facility] [address] [place] [address] * Iron Panel (Fe, TIBC, TSAT) (06/07/2024 11:53 AM EST) Pathologist [facility] TIBC 262 250 - 450 ug/dL [facility] UIBC 205 118 - 369 ug/dL [facility] Iron 57 27 - 139 ug/dL [facility] Iron Saturation (TSat) 22 15 - 55 % [facility] Blood specimen (specimen) Venous blood / Unknown 06/07/2024 11:53 AM EST 06/07/2024 Barry Reyes MD LAB BLOOD ORDERABLES Final Re sult [facility] [address] [place] [address] * (ABNORMAL) CBC and Differential (06/07/2024 11:53 AM EST) Pathologist [facility] WBC 5.5 3.4 - 10.8 x10E3/uL [facility] RBC 5.76(H) 3.77 - 5.28 x10E6/uL [facility] Hemoglobin 11.1 11.1 - 15.9 g/dL [facility] Hematocrit 38.4 34.0 - 46.6 % [facility] MCV 67(L) 79 - 97 fL [facility] MCH 19.3(L) 26.6 - 33.0 pg [facility] MCHC 28.9(L) 31.5 - 35.7 g/dL [facility] RDW 18.8(H) 11.7 - 15.4 % [facility] Platelets 162 150 - 450 x10E3/uL [facility] Neutrophils Relative 59 Not Estab. % [facility] Lymphocytes Relative 31 Not Estab. % [facility] Monocytes 6 Not Estab. % [facility] Eosinophils Relative 2 Not Estab. % [facility] Basophils Relative 1 Not Estab. % [facility] Neutrophils Absolute 3.3 1.4 - 7.0 x10E3/uL [facility] Lymphocytes Absolute 1.7 0.7 - 3.1 x10E3/uL [facility] Monocytes Absolute 0.3 0.1 - 0.9 x10E3/uL [facility] Eosinophils Absolute 0.1 0.0 - 0.4 x10E3/uL [facility] Basophils Absolute 0.0 0.0 - 0.2 x10E3/uL [facility] Immature Granulocytes 1 Not Estab. % [facility] Immature Grans (Absolute) 0.0 0.0 - 0.1 x10E3/uL [facility] Blood specimen (specimen) Venous blood / Unknown 06/07/2024 11:53 AM EST 06/07/2024 us Barry Reyes MD LAB BLOOD ORDERABLES Final Re sult [facility] [address] [place] [address] documented in this encounter Visit Diagnoses Diagnosis Chronic kidney disease, stage 2 (mild) Anemia in chronic kidney disease Iron deficiency anemia, not otherwise specified documented in this encounter Care Teams Product Consultant Relationship Specialty Start Date End Date Sahra Son MD [address] [place] [phone] PCP - General Internal Medicine 10/28/22 documented as of this encounter
--- OUTSIDE RECORDS SUMMARY | 2025-01-25 10:34 | XMS_ITS | Encounter Summary ---
Author Organization [facility] Address [address] [place] [address] Phone Care Team Providers Care Operating System Designer Name Role Phone Sahra Son MD Primary Care Provider + Encounter Details Date Type Department Care Team (Late st Contact Info) Description 10/27/2024 Orders Only [facility] [place], [address] [place] [address] India Davalos [address] [place] [address] Anemia in chronic kidney disease; [...] Glucose 238(H) 70 - 99 mg/dL [facility] BUN 15 8 - 27 mg/dL [facility] Creatinine 0.96 0.57 - 1.00 mg/dL [facility] eGFR CKD-EPI CR 2020 66 >59 mL/min/1.7 3 [facility] BUN/Creatinine Ratio 16 12 - 28 [facility] Sodium 137 134 - 144 mmol/L [facility] Potassium 4.7 3.5 - 5.2 mmol/L [facility] Chloride 100 96 - 106 mmol/L [facility] Bicarbonate (CO2) 20 20 - 29 mmol/L [facility] Calcium 9.0 8.7 - 10.3 mg/dL [facility] Albumin 4.3 3.9 - 4.9 g/dL [facility] Phosphorus 2.8(L) 3.0 - 4.3 mg/dL [facility] Blood specimen (specimen) Venous blood / Unknown 11/01/2024 8:45 AM EDT 11/01/2024 us Barry Reyes MD LAB BLOOD ORDERABLES Final Re sult [facility] [address] [place] [address] * (ABNORMAL) Ferritin (11/01/2024 8:45 AM EDT) Ferritin 480(H) 15 - 150 ng/mL [facility] Blood specimen (specimen) Venous blood / Unknown 11/01/2024 8:45 AM EDT 11/01/2024 Barry Reyes MD LAB BLOOD ORDERABLES Final Re sult Performing Organization Address City/[facility]/ZIP Co de Phone Number [facility] [address] [place] [address] * (ABNORMAL) Iron Panel (Fe, TIBC, TSAT) (11/01/2024 8:45 AM EDT) Pathologist [facility] TIBC 238(L) 250 - 450 ug/dL [facility] UIBC 168 118 - 369 ug/dL [facility] Iron 70 27 - 139 ug/dL [facility] Iron Saturation (TSat) 29 15 - 55 % [facility] Blood specimen (specimen) Venous blood / Unknown 11/01/2024 8:45 AM EDT 11/01/2024 Barry Reyes MD LAB BLOOD ORDERABLES Final Re sult [facility] [address] [place] [address] * (ABNORMAL) CBC and Differential (11/01/2024 8:45 AM EDT) WBC 6.6 3.4 - 10.8 x10E3/uL [facility] RBC 5.45(H) 3.77 - 5.28 x10E6/uL [facility] Hemoglobin 11.2 11.1 - 15.9 g/dL [facility] Hematocrit 38.3 34.0 - 46.6 % [facility] MCV 70(L) 79 - 97 fL [facility] MCH 20.6(L) 26.6 - 33.0 pg [facility] MCHC 29.2(L) 31.5 - 35.7 g/dL [facility] RDW 18.8(H) 11.7 - 15.4 % [facility] Platelets 175 150 - 450 x10E3/uL [facility] Neutrophils Relative 71 Not Estab. % [facility] Lymphocytes Relative 20 Not Estab. % [facility] Monocytes 6 Not Estab. % [facility] Eosinophils Relative 1 Not Estab. % [facility] Basophils Relative 1 Not Estab. % [facility] Neutrophils Absolute 4.7 1.4 - 7.0 x10E3/uL [facility] Lymphocytes Absolute 1.3 0.7 - 3.1 x10E3/uL [facility] Monocytes Absolute 0.4 0.1 - 0.9 x10E3/uL [facility] Eosinophils Absolute 0.1 0.0 - 0.4 x10E3/uL [facility] Basophils Absolute 0.1 0.0 - 0.2 x10E3/uL [facility] Immature Granulocytes 1 Not Estab. % [facility] Immature Grans (Absolute) 0.0 0.0 - 0.1 x10E3/uL [facility] Blood specimen (specimen) Venous blood / Unknown 11/01/2024 8:45 AM EDT 11/01/2024 us Barry Reyes MD LAB BLOOD ORDERABLES Final Re sult [facility] [address] [place] [phone] documented in this encounter Visit Diagnoses Diagnosis Anemia in chronic kidney disease Other iron deficiency anemia Chronic kidney disease, stage 2 (mild) documented in this encounter Care Teams Operating System Designer Relationship Specialty Start Date End Date Sahra Son MD [address] [place] [phone] PCP - General Internal Medicine 10/28/22 documented as of this encounter
--- OUTSIDE RECORDS SUMMARY | 2025-01-25 10:34 | XMS_ITS | Encounter Summary ---
Author Organization [facility] Address [address] [place] [address] Phone Care Team Providers Care Bar Assistant Name Role Phone Sahra Son MD Primary Care Provider + Encounter Details Date Type Department Care Team (Late st Contact Info) Description 04/28/2024 Orders Only [facility] [place], [address] [place] [address] India Davalos [address] [place] [address] Chronic kidney disease, stage 2 [...] Glucose 153(H) 70 - 99 mg/dL [facility] BUN 17 8 - 27 mg/dL [facility] Creatinine 0.98 0.57 - 1.00 mg/dL [facility] eGFR CKD-EPI CR 2020 64 >59 mL/min/1.7 3 [facility] BUN/Creatinine Ratio 17 12 - 28 [facility] Sodium 142 134 - 144 mmol/L [facility] Potassium 5.0 3.5 - 5.2 mmol/L [facility] Chloride 106 96 - 106 mmol/L [facility] Bicarbonate (CO2) 23 20 - 29 mmol/L [facility] Calcium 8.9 8.7 - 10.3 mg/dL [facility] Albumin 3.9 3.9 - 4.9 g/dL [facility] Phosphorus 3.9 3.0 - 4.3 mg/dL [facility] Blood specimen (specimen) Venous blood / Unknown 05/05/2024 9:18 AM EST 05/05/2024 us Barry Reyes MD LAB BLOOD ORDERABLES Final Re sult [facility] [address] [place] [address] * (ABNORMAL) Ferritin (05/05/2024 9:18 AM EST) Ferritin 282(H) 15 - 150 ng/mL [facility] Blood specimen (specimen) Venous blood / Unknown 05/05/2024 9:18 AM EST 05/05/2024 Barry Reyes MD LAB BLOOD ORDERABLES Final Re sult [facility] [address] [place] [address] * Iron Panel (Fe, TIBC, TSAT) (05/05/2024 9:18 AM EST) Pathologist [facility] TIBC 277 250 - 450 ug/dL [facility] UIBC 210 118 - 369 ug/dL [facility] Iron 67 27 - 139 ug/dL [facility] Iron Saturation (TSat) 24 15 - 55 % [facility] Blood specimen (specimen) Venous blood / Unknown 05/05/2024 9:18 AM EST 05/05/2024 Barry Reyes MD LAB BLOOD ORDERABLES Final Re sult [facility] [address] [place] [address] * (ABNORMAL) CBC and Differential (05/05/2024 9:18 AM EST) Pathologist [facility] WBC 5.6 3.4 - 10.8 x10E3/uL [facility] RBC 5.33(H) 3.77 - 5.28 x10E6/uL [facility] Hemoglobin 10.2(L) 11.1 - 15.9 g/dL [facility] Hematocrit 35.0 34.0 - 46.6 % [facility] MCV 66(L) 79 - 97 fL [facility] MCH 19.1(L) 26.6 - 33.0 pg [facility] MCHC 29.1(L) 31.5 - 35.7 g/dL [facility] RDW 20.1(H) 11.7 - 15.4 % [facility] Platelets 163 150 - 450 x10E3/uL [facility] Neutrophils Relative 64 Not Estab. % [facility] Lymphocytes Relative 26 Not Estab. % [facility] Monocytes 6 Not Estab. % [facility] Eosinophils Relative 3 Not Estab. % [facility] Basophils Relative 1 Not Estab. % [facility] Neutrophils Absolute 3.6 1.4 - 7.0 x10E3/uL [facility] Lymphocytes Absolute 1.5 0.7 - 3.1 x10E3/uL [facility] Monocytes Absolute 0.3 0.1 - 0.9 x10E3/uL [facility] Eosinophils Absolute 0.2 0.0 - 0.4 x10E3/uL [facility] Basophils Absolute 0.0 0.0 - 0.2 x10E3/uL [facility] Immature Granulocytes 0 Not Estab. % [facility] Immature Grans (Absolute) 0.0 0.0 - 0.1 x10E3/uL [facility] Blood specimen (specimen) Venous blood / Unknown 05/05/2024 9:18 AM EST 05/05/2024 us Barry Reyes MD LAB BLOOD ORDERABLES Final Re sult [facility] [address] [place] [address] documented in this encounter Visit Diagnoses Diagnosis Chronic kidney disease, stage 2 (mild) Anemia in chronic kidney disease Iron deficiency anemia, not otherwise specified documented in this encounter Care Teams Bar Assistant Relationship Specialty Start Date End Date Sahra Son MD [address] [place] [phone] PCP - General Internal Medicine 10/28/22 documented as of this encounter
--- OUTSIDE RECORDS SUMMARY | 2025-01-25 10:34 | XMS_ITS | Clinical Summary ---
Author Organization 175 [facility] Address [address] [place] [address] Phone Care Team Providers Care Electron Gun Assembler Name Role Phone Sahra Son MD Primary Care Provider + Encounters Date Type Department Care Team Description 11/15/2024 Telephone Gastroenterology - [place] 175 [facility] 175 [facility] [address] [place] [address] Jc Guerrier MD from Last 3 Months Surgical History Surgery Date Site/Laterality Comments OTHER SURGICAL HISTORY 1975 PROCEDURE: DC TX ECTOPIC ABDOMINAL/VAGINAL APPR PARTIAL HYSTERECTOMY PROCEDURE: DC SUPRACERVICAL ABDL HYSTER W/WO RMVL TUBE OVARY CHOLECYSTECTOMY 1982 PROCEDURE: HISTORICAL CHOLECYSTECTOMY CARPAL TUNNEL RELEASE 11/21/2014 Left PROCEDURE: HISTORICAL CARPAL TUNNEL REL BOWEL RESECTION 03/2004 PROCEDURE: HISTORICAL BOWEL RESECTION; COMMENT: bowel obstruction Medical History Medical History Date Comments Diverticulosis DX:Diverticulosi s CHF (congestive heart failur e) ([facility] V24, [facility] V28) DX:CHF (congestive heart fa ilure) ([facility]) COPD (chronic obstructive pu lmonary disease) ([facility] V24, [facility] V28) DX:COPD (chronic o bstructive pulmonary disease) ([facility]) Osteoporosis DX:Osteoporosis Fibromyalgia DX:Fibromyalgia Myelofibrosis ([facility] V24, [facility] V28) DX:Myelofibrosis ([facility]); COMM ENT: diagnosed 8 years ago, follows with DR layne Meningioma ([facility] V24, [facility] V28) DX:Meningioma ([facility]) Asthma DX:Asthma Gout DX:Gout Seizures ([facility] V24, [facility] V28) DX:Seizures ([facility]) Lupus DX:Lupus Depression DX:Depression; C OMMENT: follows at [facility] net at [address] Gann Hypercoagulable state ([facility] V24) DX:Hypercoagulable state ([facility]); COMMENT: on coumadin Neurogenic bladder DX:Neurogenic bladder; COMMENT: flowers dependent Supplemental oxygen dependent DX :Supplemental oxygen dependent Lung nodule 03/22/2017 DX:Lung nodule ALESSANDRA (obstructive sleep apnea) 03/22/2017 DX :ALESSANDRA (obstructive sleep apnea) GERD (gastroesophageal reflux disease) 03/22/2017 DX:GERD (gastroesophageal reflux disease) Anxiety 03/22/2017 DX:Anxiety Dementia ([facility] V24, [facility] V28) 03/22/2017 DX:Dementia ([facility]) Schizophrenia ([facility] V24, [facility] V28) 03/22/2017 DX:Schizophrenia ([facility]) Glaucoma 03/22/2017 DX:Glaucoma History of stroke DX:History of stroke History of deep vein thrombosis DX:History of deep vein thrombosis Coronary artery disease DX:Coron christine artery disease; COMMENT: Old CT Diabetes mellitus type 2 wit h neurological manifestations ([facility] V24, [facility] V28) DX:Diabetes mellitus type 2 with neurological manifestations ([facility]) Leukemia ([facility] V24, [facility] V28) 09/02/2017 DX:Leukemia ([facility]) MDS (myelodysplastic syndrom e) ([facility] V24, [facility] V28) 09/02/2017 DX:MDS (myelodysplastic syn drome) ([facility]) Hyperthyroidism 09/02/2017 DX:Hyperthyroidi sm History [...] 02/08/2025 9:10 AM EDT Consult Gastroenterology - [place] [address] [place] [address] [facility] [address] [place] [phone] Deloris Vickers PA [address] [facility] [address] [place] [address] Health Maintenance Due Date Last Done Comments [...] patient's age to complete this topic Insurance [facility] Member Subscriber Plan / Payer (Ef fective for All Dates) Name:Jennifer Schulz Relation to Subscriber:Self Name:Jennifer Schulz Payer ID:[id number] Group ID:[id number] Type:Not on file Address: [place] [address] [address] [phone] Care Teams Electron Gun Assembler Relationship Specialty Start Date End Date Sahra Son MD [address] [place] [id number] PCP - General Internal Medicine 11/15/24
--- OUTSIDE RECORDS SUMMARY | 2025-01-25 10:34 | XMS_ITS | Encounter Summary ---
Author Organization [facility] [place], Address [address] [place] [address] Phone Care Team Providers Care Learning And Development Manager Name Role Phone Sahra Son MD Primary Care Provider + Encounter Details Date Type Department Care Team (Late st Contact Info) Description 10/30/2022 Documentation Only [facility] [place], [address] [place] [address] India Davalos [address] [place] [address] Social History Tobacco Use Types [...] on filedocumented in this encounter Care Teams Learning And Development Manager Relationship Specialty Start Date End Date Sahra Son MD [address] [place] [address] [id number] PCP - General Internal Medicine 10/28/22 documented as of this encounter
--- OUTSIDE RECORDS SUMMARY | 2025-01-25 10:34 | XMS_ITS | Encounter Summary ---
Author Organization [facility] [place], Address [address] [place] [address] Phone Care Team Providers Care Homicide Squad Captain Name Role Phone Sahra Son MD Primary Care Provider + Encounter Details Date Type Department Care Team (Late st Contact Info) Description 07/03/2021 Documentation Only [facility] [place], [address] [facility] [place] [address] Juan Jose Li MD [address] [facility] [address] [place] [address] Social History Tobacco Use Types [...] on filedocumented in this encounter Care Teams Homicide Squad Captain Relationship Specialty Start Date End Date Sahra Son MD [address] [address] PCP - General Internal Medicine 10/28/22 documented as of this encounter
--- OUTSIDE RECORDS SUMMARY | 2025-01-25 10:34 | XMS_ITS | Encounter Summary ---
Author Organization [facility] Address [address] [place] [address] Phone Care Team Providers Care Armature Inspector Name Role Phone Sahra Son MD Primary Care Provider + Encounter Details Date Type Department Care Team (Late st Contact Info) Description 08/04/2024 Orders Only [facility] [place], [address] [place] [address] India Davalos [address] [place] [address] Anemia in chronic kidney disease; [...] Glucose 168(H) 70 - 99 mg/dL [facility] BUN 15 8 - 27 mg/dL [facility] Creatinine 0.93 0.57 - 1.00 mg/dL [facility] eGFR CKD-EPI CR 2020 69 >59 mL/min/1.7 3 [facility] BUN/Creatinine Ratio 16 12 - 28 [facility] Sodium 139 134 - 144 mmol/L [facility] Chloride 103 96 - 106 mmol/L [facility] Bicarbonate (CO2) 24 20 - 29 mmol/L [facility] Calcium 8.8 8.7 - 10.3 mg/dL [facility] Phosphorus 3.8 3.0 - 4.3 mg/dL [facility] Albumin 4.1 3.9 - 4.9 g/dL [facility] Potassium 4.8 3.5 - 5.2 mmol/L [facility] Blood specimen (specimen) Venous blood / Unknown 08/07/2024 8:15 AM EDT 08/07/2024 us Barry Reyes MD LAB BLOOD ORDERABLES Final Re sult [facility] [address] [place] [address] * Ferritin (08/07/2024 8:15 AM EDT) Pathologist [facility] Ferritin 55 15 - 150 ng/mL [facility] Blood specimen (specimen) Venous blood / Unknown 08/07/2024 8:15 AM EDT 08/07/2024 Barry Reyes MD LAB BLOOD ORDERABLES Final Re sult Performing Organization Address [facility]/ZIP Co de Phone Number [facility] [address] [place] [address] * (ABNORMAL) Iron Panel (Fe, TIBC, TSAT) (08/07/2024 8:15 AM EDT) Pathologist [facility] TIBC 290 250 - 450 ug/dL [facility] UIBC 251 118 - 369 ug/dL [facility] Iron 39 27 - 139 ug/dL [facility] Iron Saturation (TSat) 13(L) 15 - 55 % [facility] Blood specimen (specimen) Venous blood / Unknown 08/07/2024 8:15 AM EDT 08/07/2024 Barry Reyes MD LAB BLOOD ORDERABLES Final Re sult [facility] [address] [place] [address] * (ABNORMAL) CBC and Differential (08/07/2024 8:15 AM EDT) Pathologist [facility] WBC 5.6 3.4 - 10.8 x10E3/uL [facility] RBC 5.41(H) 3.77 - 5.28 x10E6/uL [facility] Hemoglobin 10.7(L) 11.1 - 15.9 g/dL [facility] Hematocrit 36.1 34.0 - 46.6 % [facility] MCV 67(L) 79 - 97 fL [facility] MCH 19.8(L) 26.6 - 33.0 pg [facility] MCHC 29.6(L) 31.5 - 35.7 g/dL [facility] RDW 18.9(H) 11.7 - 15.4 % [facility] Platelets 171 150 - 450 x10E3/uL [facility] Neutrophils Relative 65 Not Estab. % [facility] Lymphocytes Relative 25 Not Estab. % [facility] Monocytes 6 Not Estab. % [facility] Eosinophils Relative 3 Not Estab. % [facility] Basophils Relative 1 Not Estab. % [facility] Neutrophils Absolute 3.6 1.4 - 7.0 x10E3/uL [facility] Lymphocytes Absolute 1.4 0.7 - 3.1 x10E3/uL [facility] Monocytes Absolute 0.4 0.1 - 0.9 x10E3/uL [facility] Eosinophils Absolute 0.2 0.0 - 0.4 x10E3/uL [facility] Basophils Absolute 0.0 0.0 - 0.2 x10E3/uL [facility] Immature Granulocytes 0 Not Estab. % [facility] Immature Grans (Absolute) 0.0 0.0 - 0.1 x10E3/uL [facility] Blood specimen (specimen) Venous blood / Unknown 08/07/2024 8:15 AM EDT 08/07/2024 us Barry Reyes MD LAB BLOOD ORDERABLES Final Re sult [facility] [address] [place] [address] documented in this encounter Visit Diagnoses Diagnosis Anemia in chronic kidney disease Other iron deficiency anemia Chronic kidney disease, stage 2 (mild) documented in this encounter Care Teams Armature Inspector Relationship Specialty Start Date End Date Sahra Son MD [address] [place] [phone] PCP - General Internal Medicine 10/28/22 documented as of this encounter
--- OUTSIDE RECORDS SUMMARY | 2025-01-25 10:34 | XMS_ITS | Encounter Summary ---
Author Organization [facility] [place], Address [address] [place] [address] Phone Care Team Providers Care Supervisor [employer] Name Role Phone Sahra Son MD Primary Care Provider + Encounter Details Date Type Department Care Team (Late st Contact Info) Description 01/29/2023 Documentation Only [facility] [place], [address] [place] [address] India Davalos [address] [place] [address] Social History Tobacco Use Types [...] filedocumented in this encounter Care Teams Supervisor [employer] Relationship Specialty Start Date End Date Sahra Son MD [address] [phone] PCP - General Internal Medicine 10/28/22 documented as of this encounter
--- OUTSIDE RECORDS SUMMARY | 2025-01-25 10:34 | XMS_ITS | Encounter Summary ---
Author Organization [facility], Address [address] [place] [address] Phone Care Team Providers Care Patient Care Name Role Phone Sahra Son MD Primary Care Provider + Encounter Details Date Type Department Care Team (Late st Contact Info) Description 03/31/2024 Orders Only [facility], [address] [place] [address] India Davalos [address] [place] [address] Chronic kidney disease, stage [...] specified documented in this encounter Care Teams Patient Care Relationship Specialty Start Date End Date Sahra Son MD [address] [address] PCP - General Internal Medicine 10/28/22 documented as of this encounter
--- OUTSIDE RECORDS SUMMARY | 2025-01-25 10:34 | XMS_ITS | Encounter Summary ---
Author Organization [facility] Address [address] [place] [address] Phone Care Team Providers Care Data Coder Operator Name Role Phone Sahra Son MD Primary Care Provider + Encounter Details Date Type Department Care Team (Late st Contact Info) Description 11/24/2024 Orders Only [facility] [place], [address] [place] [address] India Davalos [address] [place] [address] Anemia in chronic kidney disease; [...] (mild) documented in this encounter Care Teams Data Coder Operator Relationship Specialty Start Date End Date Sahra Son MD [address] [address] PCP - General Internal Medicine 10/28/22 documented as of this encounter
--- OUTSIDE RECORDS SUMMARY | 2025-01-25 10:34 | XMS_ITS | Encounter Summary ---
Author Organization [facility] [place], Address [address] [place] [address] Phone Care Team Providers Care Chip Bin Conveyor Tender Name Role Phone Sahra Son MD Primary Care Provider + Encounter Details Date Type Department Care Team (Late st Contact Info) Description 11/13/2024 Documentation Only [facility] [place], [address] [place] [address] India Davalos [address] [place] [address] Social History Tobacco Use Types [...] on filedocumented in this encounter Care Teams Chip Bin Conveyor Tender Relationship Specialty Start Date End Date Sahra Son MD [address] [address] PCP - General Internal Medicine 10/28/22 documented as of this encounter
--- OUTSIDE RECORDS SUMMARY | 2025-01-25 10:34 | XMS_ITS | Encounter Summary ---
Author Organization [facility] Address [address] [place] [address] Phone Care Team Providers Care Net Developer Architect Name Role Phone Sahra Son MD Primary Care Provider + Encounter Details Date Type Department Care Team (Late st Contact Info) Description 09/29/2024 Orders Only [facility] [place], [address] [place] [address] India Davalos [address] [place] [address] Anemia in chronic kidney disease; [...] Glucose 219(H) 70 - 99 mg/dL [facility] BUN 14 8 - 27 mg/dL [facility] Creatinine 1.09(H) 0.57 - 1.00 mg/dL [facility] eGFR CKD-EPI CR 2020 57(L) >59 mL/min/1.7 3 [facility] BUN/Creatinine Ratio 13 12 - 28 [facility] Sodium 139 134 - 144 mmol/L [facility] Potassium 5.0 3.5 - 5.2 mmol/L [facility] Chloride 101 96 - 106 mmol/L [facility] Bicarbonate (CO2) 20 20 - 29 mmol/L [facility] Calcium 9.2 8.7 - 10.3 mg/dL [facility] Albumin 4.1 3.9 - 4.9 g/dL [facility] Phosphorus 3.7 3.0 - 4.3 mg/dL [facility] Blood specimen (specimen) Venous blood / Unknown 10/04/2024 9:48 AM EDT 10/04/2024 us aBrry Reyes MD LAB BLOOD ORDERABLES Final Re sult [facility] [address] [place] [address] * (ABNORMAL) Ferritin (10/04/2024 9:48 AM EDT) Pathologist [facility] Ferritin 167(H) 15 - 150 ng/mL [facility] Blood specimen (specimen) Venous blood / Unknown 10/04/2024 9:48 AM EDT 10/04/2024 Barry Reyes MD LAB BLOOD ORDERABLES Final Re sult [facility] [address] [place] [address] * (ABNORMAL) Iron Panel (Fe, TIBC, TSAT) (10/04/2024 9:48 AM EDT) Pathologist [facility] TIBC 247(L) 250 - 450 ug/dL [facility] UIBC 205 118 - 369 ug/dL [facility] Iron 42 27 - 139 ug/dL [facility] Iron Saturation (TSat) 17 15 - 55 % [facility] Blood specimen (specimen) Venous blood / Unknown 10/04/2024 9:48 AM EDT 10/04/2024 Barry Reyes MD LAB BLOOD ORDERABLES Final Re sult [facility] [address] [place] [address] * (ABNORMAL) CBC and Differential (10/04/2024 9:48 AM EDT) WBC 6.0 3.4 - 10.8 x10E3/uL [facility] RBC 5.10 3.77 - 5.28 x10E6/uL [facility] Hemoglobin 10.2(L) 11.1 - 15.9 g/dL [facility] Hematocrit 35.1 34.0 - 46.6 % [facility] MCV 69(L) 79 - 97 fL [facility] MCH 20.0(L) 26.6 - 33.0 pg [facility] MCHC 29.1(L) 31.5 - 35.7 g/dL [facility] RDW 18.5(H) 11.7 - 15.4 % [facility] Platelets 170 150 - 450 x10E3/uL [facility] Neutrophils Relative 69 Not Estab. % [facility] Lymphocytes Relative 22 Not Estab. % [facility] Monocytes 6 Not Estab. % [facility] Eosinophils Relative 2 Not Estab. % [facility] Basophils Relative 1 Not Estab. % [facility] Neutrophils Absolute 4.2 1.4 - 7.0 x10E3/uL [facility] Lymphocytes Absolute 1.3 0.7 - 3.1 x10E3/uL [facility] Monocytes Absolute 0.3 0.1 - 0.9 x10E3/uL [facility] Eosinophils Absolute 0.1 0.0 - 0.4 x10E3/uL [facility] Basophils Absolute 0.1 0.0 - 0.2 x10E3/uL [facility] Immature Granulocytes 0 Not Estab. % [facility] Immature Grans (Absolute) 0.0 0.0 - 0.1 x10E3/uL [facility] Blood specimen (specimen) Venous blood / Unknown 10/04/2024 9:48 AM EDT 10/04/2024 us Barry Reyes MD LAB BLOOD ORDERABLES Final Re sult [facility] [address] [place] [phone] documented in this encounter Visit Diagnoses Diagnosis Anemia in chronic kidney disease Other iron deficiency anemia Chronic kidney disease, stage 2 (mild) documented in this encounter Care Teams Net Developer Architect Relationship Specialty Start Date End Date Sahra Son MD [address] [place] [address] PCP - General Internal Medicine 10/28/22 documented as of this encounter
--- OUTSIDE RECORDS SUMMARY | 2025-01-25 10:34 | XMS_ITS | Encounter Summary ---
Author Organization [facility], Address [address] [place] [address] Phone Care Team Providers Care Software Controls Engineer Name Role Phone Sahra Son MD Primary Care Provider + Encounter Details Date Type Department Care Team (Late st Contact Info) Description 10/13/2024 Orders Only [facility], [address] [place] [address] India Davalos [address] [place] [address] Chronic kidney disease, stage 2 [...] specified documented in this encounter Care Teams Software Controls Engineer Relationship Specialty Start Date End Date Sahra Son MD [address] [address] PCP - General Internal Medicine 10/28/22 documented as of this encounter
--- OUTSIDE RECORDS SUMMARY | 2025-01-25 10:34 | XMS_ITS | Encounter Summary ---
Author Organization [facility], Address [address] [place] [address] Phone Care Team Providers Care Thread Laster Name Role Phone Sahra Son MD Primary Care Provider + Encounter Details Date Type Department Care Team (Late st Contact Info) Description 02/01/2023 Documentation Only [facility], [address] [place] [address] India Davalos [address] [place] [address] Social History Tobacco Use Types [...] on filedocumented in this encounter Care Teams Thread Laster Relationship Specialty Start Date End Date Sahra Son MD [address] [address] PCP - General Internal Medicine 10/28/22 documented as of this encounter
--- OUTSIDE RECORDS SUMMARY | 2025-01-25 10:34 | XMS_ITS | Encounter Summary ---
Author Organization [facility] [place], Address [address] [place] [address] Phone Care Team Providers Care Soft Metals Hand Engraver Name Role Phone Sahra Son MD Primary Care Provider + Encounter Details Date Type Department Care Team (Late st Contact Info) Description 01/29/2023 Documentation Only [facility] [place], [address] [place] [address] India Davalos [address] [place] [address] Social History Tobacco Use Types [...] on filedocumented in this encounter Care Teams Soft Metals Hand Engraver Relationship Specialty Start Date End Date Sahra Son MD [address] [address] PCP - General Internal Medicine 10/28/22 documented as of this encounter
--- OUTSIDE RECORDS SUMMARY | 2025-01-25 10:34 | XMS_ITS | Encounter Summary ---
Author Organization [facility] [place], Address [address] [place] [address] Phone Care Team Providers Care Medical Receptionist Biller Name Role Phone Sahra Son MD Primary Care Provider + Encounter Details Date Type Department Care Team ([facility] st Contact Info) Description 04/05/2024 Documentation Only [facility] [place], [address] [place] [address] India Davalos [address] [place] [address] Social History Tobacco Use Types [...] filedocumented in this encounter Care Teams Medical Receptionist Biller Relationship Specialty Start Date End Date Sahra Son MD [address] [address] PCP - General Internal Medicine 10/28/22 documented as of this encounter
--- OUTSIDE RECORDS SUMMARY | 2025-01-25 10:34 | XMS_ITS | Encounter Summary ---
Author Organization [facility], Address [address] [place] [address] Phone Care Team Providers Care Bar Gauger And Lubricator Tender Name Role Phone Sahra Son MD Primary Care Provider + Encounter Details Date Type Department Care Team (Late st Contact Info) Description 11/10/2024 Orders Only [facility], [address] [place] [address] India Davalos [address] [place] [address] Chronic kidney disease, stage 2 [...] documented in this encounter Care Teams Bar Gauger And Lubricator Tender Relationship Specialty Start Date End Date Sahra Son MD [address] [address] PCP - General Internal Medicine 10/28/22 documented as of this encounter
--- OUTSIDE RECORDS SUMMARY | 2025-01-25 10:35 | XMS_ITS | Encounter Summary ---
Author Organization [facility], Address [address] [place] [address] Phone Care Team Providers Care Commercial Kitchen Service Technician Name Role Phone Sahra Son MD Primary Care Provider + Encounter Details Date Type Department Care Team (Late st Contact Info) Description 07/21/2024 Orders Only [facility], [address] [place] [address] India Davalos [address] [place] [address] Chronic kidney disease, stage 2 [...] specified documented in this encounter Care Teams Commercial Kitchen Service Technician Relationship Specialty Start Date End Date Sahra Son MD [address] [address] PCP - General Internal Medicine 10/28/22 documented as of this encounter
--- OUTSIDE RECORDS SUMMARY | 2025-01-25 10:35 | XMS_ITS | Encounter Summary ---
Author Organization [facility], Address [address] [place] [address] Phone Care Team Providers Care Section Laborer Name Role Phone Sahra Son MD Primary Care Provider + Encounter Details Date Type Department Care Team (Late st Contact Info) Description 06/23/2024 Orders Only [facility], [address] [place] [address] India Davalos [address] [place] [address] Chronic kidney disease, stage 2 [...] specified documented in this encounter Care Teams Section Laborer Relationship Specialty Start Date End Date Sahra Son MD [address] [address] PCP - General Internal Medicine 10/28/22 documented as of this encounter
--- OUTSIDE RECORDS SUMMARY | 2025-01-25 10:35 | XMS_ITS | Clinical Summary ---
Author Organization [facility] Address [address] [place] [address] Care Team Providers Care Head Of Advertising Name Role Phone Geovani Natalie Carmelo ESPARZA Primary Care Provider [phone] Allergies Active Allergy Reactions Criticality Noted Date [...] 1 10/04/2016 Active ergocalciferol (VITAMIN D2) capsule 83106 units TK ONE C PO TWICE A [...] times a day. 0 04/27/2022 Active pancrelipase, Mkd-Tbhg-Pwod, (Creon) [address] units CPEP TK ONE C PO TID [...] age to complete this topic Care Teams Head Of Advertising Relationship Specialty Start Date End Date Natalie Olivo APRN [address] [place] [address] PCP - General Handy Worker 04/30/22
== END 2025-01-25 09:52 | disposition home or self-care (01) ==
LOC: HO.ACS 09:10
PROVIDERS: PCP Internal Medicine; Visit Provider Internal Medicine Medical Oncology
DX: Z79.01 Long term (current) use of anticoagulants (principal)

== ENCOUNTER → 2025-01-25 09:10 | Outpatient (BNVA) | payer OTHER, SELFPAY | PROVIDERS: PCP Internal Medicine; Visit Provider Internal Medicine Medical Oncology | DX: Z86.718 Personal history of other venous thrombosis and embolism (principal); Z79.01 Long term (current) use of anticoagulants; Z51.81 Encounter for therapeutic drug level monitoring | CPT/HCPCS: 85610; 99211 ==

== ENCOUNTER 2025-02-07 09:04 | Outpatient (AMB) | payer OTHER, SELFPAY ==
[2025-02-07 09:13] LABS: Prothrombin Time Whole Bld POC 20.3 sec (11.1-13.5); ~PT, ~INR - Anti Coag Clinic 1.7 (0.9-1.1)
--- NOTE | 2025-02-07 09:18 | MHC.OFFVISCO ---
Intake Intake Visit Reasons: Anticoagulation Allergies codeine (Codeine) Allergy (Severe, Verified 02/07/25 09:08) DIFFICULTY BREATHING Penicillins Allergy (Severe, Verified 02/07/25 09:08) RASH penicillin V Allergy (Intermediate, Verified 02/07/25 09:08) RASH tramadol (Ultram) Allergy (Unknown, Verified 02/07/25 09:08) hallucinations Shellfish Allergy (Severe, Uncoded 01/25/25 09:27) THROAT SWELLING Contrast Allergy PreMed Pack Allergy (Unknown, Uncoded 01/25/25 09:27) TREAT WITH BENADRYL ferrlecit Adverse Reaction (Intermediate, Uncoded 01/25/25 09:27) Rash Medication List - Last Reconciled 02/07/25 by Teresa Flowers RN alcohol swabs 2 pad topical DAILY blood sugar diagnostic As directed budesonide (Pulmicort) 0.25 mg inhalation BID clonidine HCl 0.1 mg PO BID dapagliflozin propanediol (Farxiga) 5 mg PO DAILY divalproex ER 250 mg PO BID docusate sodium (Colace) 100 mg PO DAILY duloxetine (Cymbalta) 30 mg PO DAILY duloxetine 60 mg PO QAM epoetin marj (Procrit) 2,000 units subcut 3XW hydrocortisone 2.5% appl topical insulin glargine (Lantus Solostar U-100 Insulin) 5 units subcut DAILY ipratropium-albuterol 0.5 mg-3 mg(2.5 mg base)/3 mL mL inhalation ipratropium-albuterol 20-100 mcg/actuation 1 puff PO QID ipratropium-albuterol 20-100 mcg/actuation (Combivent Respimat) 1 puff inhalation Q4H lancets As directed lancets As directed latanoprost 0.005% drps ophthalmic (eye) lidocaine 4% (Lidocaine Pain Relief) 1 patch topical DAILY PRN linaclotide (Linzess) 145 mcg PO DAILY linagliptin (Tradjenta) 5 mg PO DAILY nparem-celohvbs-oebjqeo 24,000-76,000 -120,000 unit (Creon) 1 cap PO TID loratadine 10 mg PO DAILY PRN lorazepam 1 mg PO BID meclizine mg PO montelukast 10 mg PO BEDTIME nifedipine ER 30 mg PO DAILY nitroglycerin 0.4 mg sublingual Q5M PRN nystatin 1 appl topical DAILY PRN ondansetron 4 mg PO Q8H PRN oxcarbazepine (Trileptal) 150 mg PO Q12H 30 days quetiapine 200 mg PO BEDTIME rabeprazole 20 mg PO DAILY ropinirole 0.25 mg PO BEDTIME rosuvastatin 40 mg PO DAILY sodium chloride 0.65% (Deep Sea Nasal) sprays intranasal Q2H PRN triamcinolone acetonide 0.1% appl topical warfarin 2.5 mg See Protocol PO DAILY Nursing Note NO CP,SOB,DIET/MED CHANGES,FALLS OR SX OF BLEEDING. BOOST DOSE TODAY THEN RESUME USUAL DOSE AND FOLLOW-UP IN 1 WEEK GOOD UNDERSTANDING OF DOSING INSTR. Anti-Coag Initial Assessment Social Hx Patient Tobacco Use Status: Current everyday Tobacco user alcohol intake: never Coding Level of Care Code Est Patient Level 1 Diagnoses Current use of anticoagulant therapy Z79.01 Assessment & Plan Assessment & Plan (1) Current use of anticoagulant therapy: Code(s): Z79.01 - intermediate manager (current) use of anticoagulants Category: Medical
--- OUTSIDE RECORDS SUMMARY | 2025-02-07 10:37 | XMS_ITS | Encounter Summary ---
Author Organization [facility], Address [address] [place] [address] Phone Care Team Providers Care Dry House Wheeler Name Role Phone Sahra Son MD Primary Care Provider + Encounter Details Date Type Department Care Team (Late st Contact Info) Description 06/17/2022 Documentation Only [facility], [address] [place] [address] India Davalos [address] [place] [address] Social History Tobacco Use Types [...] filedocumented in this encounter Care Teams Dry House Wheeler Relationship Specialty Start Date End Date Sahra Son MD [address] [address] PCP - General Internal Medicine 10/28/22 documented as of this encounter
--- OUTSIDE RECORDS SUMMARY | 2025-02-07 10:37 | XMS_ITS | Encounter Summary ---
Author Organization [facility], Address [address] [place] [address] Phone Care Team Providers Care Optician Apprentice Dispensing Name Role Phone Sahra Son MD Primary Care Provider + Encounter Details Date Type Department Care Team (Late st Contact Info) Description 06/16/2022 Documentation Only [facility], [address] [place] [address] India Davalos [address] [place] [address] Social History Tobacco Use [...] on filedocumented in this encounter Care Teams Optician Apprentice Dispensing Relationship Specialty Start Date End Date Sahra Son MD [address] [address] PCP - General Internal Medicine 10/28/22 documented as of this encounter
--- OUTSIDE RECORDS SUMMARY | 2025-02-07 10:37 | XMS_ITS | Encounter Summary ---
Author Organization [facility], Address [address] [place] [address] Phone Care Team Providers Care Power Screwdriver Operator Name Role Phone Sahra Son MD Primary Care Provider + Encounter Details Date Type Department Care Team (Late st Contact Info) Description 09/28/2022 Documentation Only [facility], [address] [place] [address] India Davalos [address] [place] [address] Social History Tobacco Use Types [...] filedocumented in this encounter Care Teams Power Screwdriver Operator Relationship Specialty Start Date End Date Sahra Son MD [address] [address] PCP - General Internal Medicine 10/28/22 documented as of this encounter
--- OUTSIDE RECORDS SUMMARY | 2025-02-07 10:37 | XMS_ITS | Encounter Summary ---
Author Organization [facility], Address [address] [place] [address] Phone Care Team Providers Care Digital Circuit Designer Name Role Phone Sahra Son MD Primary Care Provider + Encounter Details Date Type Department Care Team (Late st Contact Info) Description 09/18/2022 Documentation Only [facility], [address] [place] [address] India Davalos [address] [place] [address] Social History Tobacco Use Types [...] filedocumented in this encounter Care Teams Digital Circuit Designer Relationship Specialty Start Date End Date Sahra Son MD [address] [address] PCP - General Internal Medicine 10/28/22 documented as of this encounter
--- OUTSIDE RECORDS SUMMARY | 2025-02-07 10:37 | XMS_ITS | Encounter Summary ---
Author Organization [facility], Address [address] [place] [address] Phone Care Team Providers Care Online User Experience Strategist Name Role Phone Sahra Son MD Primary Care Provider + Encounter Details Date Type Department Care Team (Late st Contact Info) Description 09/28/2022 Documentation Only [facility], [address] [place] [address] India Davalos [address] [place] [address] Social History Tobacco Use Types [...] filedocumented in this encounter Care Teams Online User Experience Strategist Relationship Specialty Start Date End Date Sahra Son MD [address] [address] PCP - General Internal Medicine 10/28/22 documented as of this encounter
--- OUTSIDE RECORDS SUMMARY | 2025-02-07 10:37 | XMS_ITS | Encounter Summary ---
Author Organization [facility], Address [address] [place] [address] Phone Care Team Providers Care Medical Auditor Name Role Phone Sahra Son MD Primary Care Provider + Encounter Details Date Type Department Care Team (Late st Contact Info) Description 09/28/2022 Documentation Only [facility], [address] [place] [address] India Davalos [address] [place] [address] Social History Tobacco Use Types [...] filedocumented in this encounter Care Teams Medical Auditor Relationship Specialty Start Date End Date Sahra Son MD [address] [address] PCP - General Internal Medicine 10/28/22 documented as of this encounter
--- OUTSIDE RECORDS SUMMARY | 2025-02-07 10:37 | XMS_ITS | Encounter Summary ---
Author Organization [facility] Address [address] [place] [address] Phone Care Team Providers Care Cemetery Worker Name Role Phone Sahra Son MD Primary Care Provider + Encounter Details Date Type Department Care Team (Late st Contact Info) Description 03/03/2024 Orders Only [facility] [place], [address] [place] [address] India Davalos [address] [place] [address] Chronic kidney disease, stage 2 [...] Glucose 152(H) 70 - 99 mg/dL [facility] BUN 16 8 - 27 mg/dL [facility] Creatinine 0.98 0.57 - 1.00 mg/dL [facility] eGFR CKD-EPI CR 2020 64 >59 mL/min/1.7 3 [facility] BUN/Creatinine Ratio 16 12 - 28 [facility] Sodium 137 134 - 144 mmol/L [facility] Potassium 4.8 3.5 - 5.2 mmol/L [facility] Chloride 101 96 - 106 mmol/L [facility] Bicarbonate (CO2) 22 20 - 29 mmol/L [facility] Calcium 8.8 8.7 - 10.3 mg/dL [facility] Albumin 4.0 3.9 - 4.9 g/dL [facility] Phosphorus 4.0 3.0 - 4.3 mg/dL [facility] Blood specimen (specimen) Venous blood / Unknown 03/24/2024 10:37 AM EST 03/24/2024 us Barry Reyes MD LAB BLOOD ORDERABLES Final Re sult [facility] [address] [place] [address] * Ferritin (03/24/2024 10:37 AM EST) Pathologist [facility] Ferritin 37 15 - 150 ng/mL [facility] Blood specimen (specimen) Venous blood / Unknown 03/24/2024 10:37 AM EST 03/24/2024 Barry Reyes MD LAB BLOOD ORDERABLES Final Re sult Performing Organization Address City/[facility]/ZIP Co de Phone Number [facility] [address] [place] [address] * Iron Panel (Fe, TIBC, TSAT) (03/24/2024 10:37 AM EST) [facility] TIBC 293 250 - 450 ug/dL [facility] UIBC 247 118 - 369 ug/dL [facility] Iron 46 27 - 139 ug/dL [facility] Iron Saturation (TSat) 16 15 - 55 % [facility] Blood specimen (specimen) Venous blood / Unknown 03/24/2024 10:37 AM EST 03/24/2024 Barry Reyes MD LAB BLOOD ORDERABLES Final Re sult [facility] [address] [place] [address] * (ABNORMAL) CBC and Differential (03/24/2024 10:37 AM EST) Pathologist [facility] WBC 6.0 3.4 - 10.8 x10E3/uL [facility] RBC 5.21 3.77 - 5.28 x10E6/uL [facility] Hemoglobin 10.0(L) 11.1 - 15.9 g/dL [facility] Hematocrit 35.3 34.0 - 46.6 % [facility] MCV 68(L) 79 - 97 fL [facility] MCH 19.2(L) 26.6 - 33.0 pg [facility] MCHC 28.3(L) 31.5 - 35.7 g/dL [facility] RDW 19.4(H) 11.7 - 15.4 % [facility] Platelets 186 150 - 450 x10E3/uL [facility] Neutrophils Relative 65 Not Estab. % [facility] Lymphocytes Relative 26 Not Estab. % [facility] Monocytes 6 Not Estab. % [facility] Eosinophils Relative 2 Not Estab. % [facility] Basophils Relative 1 Not Estab. % [facility] Neutrophils Absolute 3.9 1.4 - 7.0 x10E3/uL [facility] Lymphocytes Absolute 1.5 0.7 - 3.1 x10E3/uL [facility] Monocytes Absolute 0.3 0.1 - 0.9 x10E3/uL [facility] Eosinophils Absolute 0.1 0.0 - 0.4 x10E3/uL [facility] Basophils Absolute 0.0 0.0 - 0.2 x10E3/uL [facility] Immature Granulocytes 0 Not Estab. % [facility] Immature Grans (Absolute) 0.0 0.0 - 0.1 x10E3/uL [facility] Blood specimen (specimen) Venous blood / Unknown 03/24/2024 10:37 AM EST 03/24/2024 us Barry Reyes MD LAB BLOOD ORDERABLES Final Re sult [facility] [address] [place] [address] documented in this encounter Visit Diagnoses Diagnosis Chronic kidney disease, stage 2 (mild) Anemia in chronic kidney disease Iron deficiency anemia, not otherwise specified documented in this encounter Care Teams Cemetery Worker Relationship Specialty Start Date End Date Sahra Son MD [address] [place] [address] PCP - General Internal Medicine 10/28/22 documented as of this encounter
--- OUTSIDE RECORDS SUMMARY | 2025-02-07 10:37 | XMS_ITS | Encounter Summary ---
Author Organization [facility], Address [address] [place] [address] Phone Care Team Providers Care Valet Attendant Name Role Phone Sahra Son MD Primary Care Provider + Encounter Details Date Type Department Care Team (Late st Contact Info) Description 09/28/2022 Documentation Only [facility], [address] [place] [address] India Davalos [address] [place] [address] Social History Tobacco Use [...] on filedocumented in this encounter Care Teams Valet Attendant Relationship Specialty Start Date End Date Sahra Son MD [address] [address] PCP - General Internal Medicine 10/28/22 documented as of this encounter
--- OUTSIDE RECORDS SUMMARY | 2025-02-07 10:37 | XMS_ITS | Encounter Summary ---
Author Organization [facility] [place], Address [address] [place] [address] Phone Care Team Providers Care Bail Bond Agent Name Role Phone Sahra Son MD Primary Care Provider + Encounter Details Date Type Department Care Team (Late st Contact Info) Description 06/18/2021 Documentation Only [facility], [address] [place] [address] India Davalos [address] [place] [address] Social History Tobacco Use Types [...] on filedocumented in this encounter Care Teams Bail Bond Agent Relationship Specialty Start Date End Date Sahra Son MD [address] [address] PCP - General Internal Medicine 10/28/22 documented as of this encounter
--- OUTSIDE RECORDS SUMMARY | 2025-02-07 10:37 | XMS_ITS | Encounter Summary ---
Author Organization [facility] Address [address] [place] [address] Phone Care Team Providers Care Button Sawyer Name Role Phone Sahra Son MD Primary Care Provider + Encounter Details Date Type Department Care Team (Late st Contact Info) Description 12/22/2024 Orders Only [facility] [place], [address] [place] [address] India Davalos [address] [place] [address] Anemia in chronic kidney disease; [...] (mild) documented in this encounter Care Teams Button Sawyer Relationship Specialty Start Date End Date Sahra Son MD [address] [address] PCP - General Internal Medicine 10/28/22 documented as of this encounter
--- OUTSIDE RECORDS SUMMARY | 2025-02-07 10:38 | XMS_ITS | Encounter Summary ---
Author Organization [facility] [place] [facility], Address [address] [place] [address] Phone Care Team Providers Care Pulpwood Cutter Name Role Phone Sahra Son MD Primary Care Provider + Encounter Details Date Type Department Care Team (Late st Contact Info) Description 11/19/2023 Documentation Only [facility], [address] [place] [address] India Davalos [address] [place] [address] Social History Tobacco Use Types [...] on filedocumented in this encounter Care Teams Pulpwood Cutter Relationship Specialty Start Date End Date Sahra Son MD [address] [address] PCP - General Internal Medicine 10/28/22 documented as of this encounter
--- OUTSIDE RECORDS SUMMARY | 2025-02-07 10:38 | XMS_ITS | Encounter Summary ---
Author Organization [facility] [place], Address [address] [place] [address] Phone Care Team Providers Care Fine Artist Name Role Phone Sahra Son MD Primary Care Provider + Encounter Details Date Type Department Care Team (Late st Contact Info) Description 08/09/2023 Documentation Only [facility], [address] [place] [address] India Davalos [address] [place] [address] Social History Tobacco Use Types [...] on filedocumented in this encounter Care Teams Fine Artist Relationship Specialty Start Date End Date Sahra Son MD [address] [address] PCP - General Internal Medicine 10/28/22 documented as of this encounter
--- OUTSIDE RECORDS SUMMARY | 2025-02-07 10:38 | XMS_ITS | Encounter Summary ---
Author Organization [facility], Address [address] [place] [address] Phone Care Team Providers Care Biological Engineer Name Role Phone Sahra Son MD Primary Care Provider + Encounter Details Date Type Department Care Team (Late st Contact Info) Description 06/09/2023 Documentation Only [facility], [address] [place] [address] India Davalos [address] [place], [place] [...] on filedocumented in this encounter Care Teams Biological Engineer Relationship Specialty Start Date End Date Sahra Son MD [address] [address] PCP - General Internal Medicine 10/28/22 documented as of this encounter
--- OUTSIDE RECORDS SUMMARY | 2025-02-07 10:38 | XMS_ITS | Encounter Summary ---
Author Organization [facility] [place], Address [address] [place] [address] Phone Care Team Providers Care Supervisor Dials Name Role Phone Sahra Son MD Primary Care Provider + Encounter Details Date Type Department Care Team (Late st Contact Info) Description 03/23/2024 Documentation Only [facility], [address] [place] [address] India Davalos [address] [place] [address] Social History Tobacco Use Types [...] filedocumented in this encounter Care Teams Supervisor Dials Relationship Specialty Start Date End Date Sahra Son MD [address] [address] PCP - General Internal Medicine 10/28/22 documented as of this encounter
--- OUTSIDE RECORDS SUMMARY | 2025-02-07 10:38 | XMS_ITS | Encounter Summary ---
Author Organization [facility] [place], Address [address] [place] [address] Phone Care Team Providers Care Specification Writer Name Role Phone Sahra Son MD Primary Care Provider + Encounter Details Date Type Department Care Team (Late st Contact Info) Description 09/15/2024 Orders Only [facility], [address] [place] [address] India Davalos [address] [place] [address] Chronic kidney disease, stage 2 [...] specified documented in this encounter Care Teams Specification Writer Relationship Specialty Start Date End Date Sahra Son MD [address] [address] PCP - General Internal Medicine 10/28/22 documented as of this encounter
--- OUTSIDE RECORDS SUMMARY | 2025-02-07 10:38 | XMS_ITS | Encounter Summary ---
Author Organization [facility] Address [address] [place] [address] Phone Care Team Providers Care Lockstitch Back Maker Name Role Phone Sahra Son MD Primary Care Provider + Encounter Details Date Type Department Care Team (Late st Contact Info) Description 08/18/2024 Orders Only [facility] [place], [address] [place] [address] India Davalos [address] [place] [address] Chronic kidney disease, stage 2 [...] specified documented in this encounter Care Teams Lockstitch Back Maker Relationship Specialty Start Date End Date Sahra Son MD [address] [address] PCP - General Internal Medicine 10/28/22 documented as of this encounter
--- OUTSIDE RECORDS SUMMARY | 2025-02-07 10:38 | XMS_ITS | Encounter Summary ---
Author Organization [facility] [place], Address [address] [place] [address] Phone Care Team Providers Care Remelt Sugar Boiler Name Role Phone Sahra Son MD Primary Care Provider + Encounter Details Date Type Department Care Team (Late st Contact Info) Description 08/28/2024 Documentation Only [facility], [address] [place] [address] India Davalos [address] [place] [address] Social History Tobacco Use [...] on filedocumented in this encounter Care Teams Remelt Sugar Boiler Relationship Specialty Start Date End Date Sahra Son MD [address] [address] PCP - General Internal Medicine 10/28/22 documented as of this encounter
--- OUTSIDE RECORDS SUMMARY | 2025-02-07 10:38 | XMS_ITS | Encounter Summary ---
Author Organization [facility] [place], Address [address] [place] [address] Phone Care Team Providers Care Oxyacetylene Cutter Name Role Phone Sahra Son MD Primary Care Provider + Encounter Details Date Type Department Care Team (Late st Contact Info) Description 08/11/2022 Documentation Only [facility] [place], [address] [place] [address] India Davalos [address] [place] [address] Social History Tobacco Use Types [...] on filedocumented in this encounter Care Teams Oxyacetylene Cutter Relationship Specialty Start Date End Date Sahra Son MD [address] [address] PCP - General Internal Medicine 10/28/22 documented as of this encounter
--- OUTSIDE RECORDS SUMMARY | 2025-02-07 10:38 | XMS_ITS | Encounter Summary ---
Author Organization [facility] [place], Address [address] [place] [address] Phone Care Team Providers Care Blood Bank Assistant Name Role Phone Sahra Son MD Primary Care Provider + Encounter Details Date Type Department Care Team (Late st Contact Info) Description 06/09/2024 Orders Only [facility], [address] [place] [address] India Davalos [address] [place] [address] Anemia in chronic kidney disease; [...] (mild) documented in this encounter Care Teams Blood Bank Assistant Relationship Specialty Start Date End Date Sahra Son MD [address] [address] PCP - General Internal Medicine 10/28/22 documented as of this encounter
--- OUTSIDE RECORDS SUMMARY | 2025-02-07 10:38 | XMS_ITS | Encounter Summary ---
Author Organization [facility] [place], Address [address] [place] [address] Phone Care Team Providers Care Can Reconditioner Name Role Phone Sahra Son MD Primary Care Provider + Encounter Details Date Type Department Care Team (Late st Contact Info) Description 08/11/2022 Documentation Only [facility], [address] [place] [address] India Davalos [address] [place] [address] Social History Tobacco Use Types [...] on filedocumented in this encounter Care Teams Can Reconditioner Relationship Specialty Start Date End Date Sahra Son MD [address] [address] PCP - General Internal Medicine 10/28/22 documented as of this encounter
--- OUTSIDE RECORDS SUMMARY | 2025-02-07 10:38 | XMS_ITS | Encounter Summary ---
Author Organization [facility], Address [address] [place] [address] Phone Care Team Providers Care Bridge Maintainer Name Role Phone Sahra Son MD Primary Care Provider + Encounter Details Date Type Department Care Team ([facility] st Contact Info) Description 04/14/2022 Documentation Only [facility], [address] [place] [address] India Davalos [address] [place] [address] Social History Tobacco Use Types [...] on filedocumented in this encounter Care Teams Bridge Maintainer Relationship Specialty Start Date End Date Sahra Son MD [address] [address] PCP - General Internal Medicine 10/28/22 documented as of this encounter
--- OUTSIDE RECORDS SUMMARY | 2025-02-07 10:38 | XMS_ITS | Encounter Summary ---
Author Organization [facility] [place], Address [address] [place] [address] Phone Care Team Providers Care Mold Mover Name Role Phone Sarha Son MD Primary Care Provider + Encounter Details Date Type Department Care Team (Late st Contact Info) Description 03/11/2023 Documentation Only [facility], [address] [place] [address] India Davalos [address] [place] [address] Social History Tobacco Use Types [...] on filedocumented in this encounter Care Teams Mold Mover Relationship Specialty Start Date End Date Sahra Son MD [address] [address] PCP - General Internal Medicine 10/28/22 documented as of this encounter
--- OUTSIDE RECORDS SUMMARY | 2025-02-07 10:38 | XMS_ITS | Encounter Summary ---
Author Organization [facility] [place], Address [address] [place] [address] Phone Care Team Providers Care Compliance Lead Name Role Phone Sahra Son MD Primary Care Provider + Encounter Details Date Type Department Care Team (Late st Contact Info) Description 07/16/2023 Documentation Only [facility] [place], [address] [place] [address] India Davalos [address] [place] [address] Social History Tobacco Use Types [...] on filedocumented in this encounter Care Teams Compliance Lead Relationship Specialty Start Date End Date Sahra Son MD [address] [address] PCP - General Internal Medicine 10/28/22 documented as of this encounter
--- OUTSIDE RECORDS SUMMARY | 2025-02-07 10:38 | XMS_ITS | Encounter Summary ---
Author Organization [facility], Address [address] [place] [address] Phone Care Team Providers Care Service Representative Name Role Phone Sahra Son MD Primary Care Provider + Encounter Details Date Type Department Care Team (Late st Contact Info) Description 11/11/2023 Documentation Only [facility], [address] [place] [address] India Davalos [address] [place] [address] Social History Tobacco Use Types [...] filedocumented in this encounter Care Teams Service Representative Relationship Specialty Start Date End Date Sahra Son MD [address] [address] PCP - General Internal Medicine 10/28/22 documented as of this encounter
--- OUTSIDE RECORDS SUMMARY | 2025-02-07 10:38 | XMS_ITS | Encounter Summary ---
Author Organization [facility], Address [address] [place] [address] Phone Care Team Providers Care Healthcare Analyst Name Role Phone Sahra Son MD Primary Care Provider + Encounter Details Date Type Department Care Team (Late st Contact Info) Description 03/11/2023 Documentation Only [facility], [address] [place] [address] India Davalos [address] [place] [address] Social History Tobacco Use Types [...] on filedocumented in this encounter Care Teams Healthcare Analyst Relationship Specialty Start Date End Date Sahra Son MD [address] [address] PCP - General Internal Medicine 10/28/22 documented as of this encounter
--- OUTSIDE RECORDS SUMMARY | 2025-02-07 10:38 | XMS_ITS | Encounter Summary ---
Author Organization [facility] [place], Address [address] [place] [address] Phone Care Team Providers Care Lumber Kiln Operator Name Role Phone Sahra Son MD Primary Care Provider + Encounter Details Date Type Department Care Team (Late st Contact Info) Description 08/24/2024 Documentation Only [facility] [place], [address] [place] [address] India Davalos [address] [place] [address] Social History Tobacco Use Types [...] on filedocumented in this encounter Care Teams Lumber Kiln Operator Relationship Specialty Start Date End Date Sahra Son MD [address] [address] PCP - General Internal Medicine 10/28/22 documented as of this encounter
--- OUTSIDE RECORDS SUMMARY | 2025-02-07 10:38 | XMS_ITS | Encounter Summary ---
Author Organization [facility] [place], Address [address] [place] [address] Phone Care Team Providers Care Chief Contract Officer Name Role Phone Sahra Son MD Primary Care Provider + Encounter Details Date Type Department Care Team (Late st Contact Info) Description 08/25/2024 Documentation Only [facility] [place], [address] [place] [address] India Davalos [address] [place] [address] Social History Tobacco Use Types [...] End Date Sahra Son MD [address] [address] PCP - General Internal Medicine 10/28/22 documented as of this encounter
--- OUTSIDE RECORDS SUMMARY | 2025-02-07 10:38 | XMS_ITS | Encounter Summary ---
Author Organization [facility] [place], Address [address] [place] [address] Phone Care Team Providers Care Supervisor Steffen House Name Role Phone Sahra Son MD Primary Care Provider + Encounter Details Date Type Department Care Team (Late st Contact Info) Description 11/11/2023 Documentation Only [facility] [place], [address] [place] [address] India Davalos [address] [place], [place] [...] filedocumented in this encounter Care Teams Supervisor Steffen House Relationship Specialty Start Date End Date Sahra Son MD [address] [address] PCP - General Internal Medicine 10/28/22 documented as of this encounter
--- OUTSIDE RECORDS SUMMARY | 2025-02-07 10:38 | XMS_ITS | Encounter Summary ---
Author Organization [facility] [place], Address [address] [place] [address] Phone Care Team Providers Care Chief Catalyst Operator Name Role Phone Sahra Son MD Primary Care Provider + Encounter Details Date Type Department Care Team (Late st Contact Info) Description 03/11/2023 Documentation Only [facility] [place], [address] [place] [address] India Davalos [address] [place] [address] Social History Tobacco Use Types [...] filedocumented in this encounter Care Teams Chief Catalyst Operator Relationship Specialty Start Date End Date Sahra Son MD [address] [address] PCP - General Internal Medicine 10/28/22 documented as of this encounter
--- OUTSIDE RECORDS SUMMARY | 2025-02-07 10:38 | XMS_ITS | Encounter Summary ---
Author Organization [facility], Address [address] [place] [address] Phone Care Team Providers Care Fleet Administrator Name Role Phone Sahra Son MD Primary Care Provider + Encounter Details Date Type Department Care Team (Late st Contact Info) Description 11/11/2023 Documentation Only [facility], [address] [place] [address] India Davalos [address] [place] [address] Social History Tobacco Use Types [...] on filedocumented in this encounter Care Teams Fleet Administrator Relationship Specialty Start Date End Date Sahra Son MD [address] [address] PCP - General Internal Medicine 10/28/22 documented as of this encounter
--- OUTSIDE RECORDS SUMMARY | 2025-02-07 10:38 | XMS_ITS | Encounter Summary ---
Author Organization [facility], Address [address] [place] [address] Phone Care Team Providers Care Progress Clerk Name Role Phone Sahra Son MD Primary Care Provider + Encounter Details Date Type Department Care Team (Late st Contact Info) Description 11/30/2023 Documentation Only [facility], [address] [place] [address] India Davalos [address] [place] [address] Social History Tobacco Use Types [...] on filedocumented in this encounter Care Teams Progress Clerk Relationship Specialty Start Date End Date Sahra Son MD [address] [address] PCP - General Internal Medicine 10/28/22 documented as of this encounter
--- OUTSIDE RECORDS SUMMARY | 2025-02-07 10:38 | XMS_ITS | Encounter Summary ---
Author Organization [facility], Address [address] [place] [address] Phone Care Team Providers Care Customer Care Coordinator Name Role Phone Sahra Son MD Primary Care Provider + Encounter Details Date Type Department Care Team (Late st Contact Info) Description 11/17/2023 Documentation Only [facility], [address] [place] [address] India Davalos [address] [place] [address] Social History Tobacco Use Types [...] filedocumented in this encounter Care Teams Customer Care Coordinator Relationship Specialty Start Date End Date Sahra Son MD [address] [address] PCP - General Internal Medicine 10/28/22 documented as of this encounter
--- OUTSIDE RECORDS SUMMARY | 2025-02-07 10:38 | XMS_ITS | Encounter Summary ---
Author Organization [facility], Address [address] [place] [address] Phone Care Team Providers Care Vehicle Trimmer Name Role Phone Sahra Son MD Primary Care Provider + Encounter Details Date Type Department Care Team (Late st Contact Info) Description 07/16/2023 Documentation Only [facility], [address] [place] [address] India Davalos [address] [place] [address] Social History Tobacco Use Types [...] filedocumented in this encounter Care Teams Vehicle Trimmer Relationship Specialty Start Date End Date Sahra Son MD [address] [address] PCP - General Internal Medicine 10/28/22 documented as of this encounter
--- OUTSIDE RECORDS SUMMARY | 2025-02-07 10:38 | XMS_ITS | Encounter Summary ---
Author Organization [facility], Address [address] [place] [address] Phone Care Team Providers Care Lockstitch Waistband Setter Name Role Phone Sahra Son MD Primary Care Provider + Encounter Details Date Type Department Care Team ([facility] st Contact Info) Description 04/08/2022 Documentation Only [facility], [address] [place] [address] India Davalos [address] [place] [address] Social History Tobacco Use Types [...] on filedocumented in this encounter Care Teams Lockstitch Waistband Setter Relationship Specialty Start Date End Date Sahra Son MD [address] [address] PCP - General Internal Medicine 10/28/22 documented as of this encounter
--- OUTSIDE RECORDS SUMMARY | 2025-02-07 10:38 | XMS_ITS | Encounter Summary ---
Author Organization [facility], Address [address] [place] [address] Phone Care Team Providers Care Weaver Wire Loom Name Role Phone Sahra Son MD Primary Care Provider + Encounter Details Date Type Department Care Team (Late st Contact Info) Description 11/11/2023 Documentation Only [facility], [address] [place] [address] India Davalos [address] [place] [address] Social History Tobacco Use Types [...] on filedocumented in this encounter Care Teams Weaver Wire Loom Relationship Specialty Start Date End Date Sahra Son MD [address] [address] PCP - General Internal Medicine 10/28/22 documented as of this encounter
--- OUTSIDE RECORDS SUMMARY | 2025-02-07 10:38 | XMS_ITS | Encounter Summary ---
Author Organization [facility], Address [address] [place] [address] Phone Care Team Providers Care Auditing Control Clerk Name Role Phone Sahra Son MD Primary Care Provider + Encounter Details Date Type Department Care Team (Late st Contact Info) Description 12/24/2022 Documentation Only [facility], [address] [place] [address] Carol Whelan [address] [place] [address] Social History Tobacco [...] on filedocumented in this encounter Care Teams Auditing Control Clerk Relationship Specialty Start Date End Date Sahra Son MD [address] [address] PCP - General Internal Medicine 10/28/22 documented as of this encounter
--- OUTSIDE RECORDS SUMMARY | 2025-02-07 10:38 | XMS_ITS | Encounter Summary ---
Author Organization [facility], Address [address] [place] [address] Phone Care Team Providers Care Inspector Hairspring Name Role Phone Sahra Son MD Primary Care Provider + Encounter Details Date Type Department Care Team (Late st Contact Info) Description 11/11/2023 Documentation Only [facility], [address] [place] [address] India Davalos [address] [place] [address] Social History Tobacco Use Types [...] filedocumented in this encounter Care Teams Inspector Hairspring Relationship Specialty Start Date End Date Sahra Son MD [address] [address] PCP - General Internal Medicine 10/28/22 documented as of this encounter
--- OUTSIDE RECORDS SUMMARY | 2025-02-07 10:38 | XMS_ITS | Encounter Summary ---
Author Organization [facility], Address [address] [place] [address] Phone Care Team Providers Care Warehouse Unloader Name Role Phone Sahra Son MD Primary Care Provider + Encounter Details Date Type Department Care Team (Late st Contact Info) Description 01/04/2024 Documentation Only [facility], [address] [place] [address] India Davalos [address] [place] [address] Social History Tobacco Use Types [...] filedocumented in this encounter Care Teams Warehouse Unloader Relationship Specialty Start Date End Date Sahra Son MD [address] [address] PCP - General Internal Medicine 10/28/22 documented as of this encounter
--- OUTSIDE RECORDS SUMMARY | 2025-02-07 10:38 | XMS_ITS | Encounter Summary ---
Author Organization [facility], Address [address] [place] [address] Phone Care Team Providers Care Radio Television Technical Director Name Role Phone Sahra Son MD Primary Care Provider + Encounter Details Date Type Department Care Team (Late st Contact Info) Description 01/06/2022 Documentation Only [facility], [address] [facility] [place] [address] Juan Jose Li MD [address] [facility] [place] [address] Social History Tobacco Use Types [...] on filedocumented in this encounter Care Teams Radio Television Technical Director Relationship Specialty Start Date End Date Sahra Son MD [address] [address] PCP - General Internal Medicine 10/28/22 documented as of this encounter
--- OUTSIDE RECORDS SUMMARY | 2025-02-07 10:38 | XMS_ITS | Encounter Summary ---
Author Organization [facility] Address [address] [place] [address] Phone Care Team Providers Care Asbestos Shingle Inspector Name Role Phone Sahra oSn MD Primary Care Provider + Encounter Details Date Type Department Care Team (Late st Contact Info) Description 02/04/2024 Orders Only [facility], [address] [place] [address] India Davalos [address] [place] [address] Chronic kidney disease, stage [...] Glucose 169(H) 70 - 99 mg/dL [facility] BUN 16 8 - 27 mg/dL [facility] Creatinine 1.00 0.57 - 1.00 mg/dL [facility] eGFR CKD-EPI CR 2020 63 >59 mL/min/1.7 3 [facility] BUN/Creatinine Ratio 16 12 - 28 [facility] Sodium 138 134 - 144 mmol/L [facility] Potassium 4.8 3.5 - 5.2 mmol/L [facility] Chloride 100 96 - 106 mmol/L [facility] Bicarbonate (CO2) 22 20 - 29 mmol/L [facility] Calcium 9.1 8.7 - 10.3 mg/dL [facility] Albumin 4.1 3.9 - 4.9 g/dL [facility] Phosphorus 4.2 3.0 - 4.3 mg/dL [facility] Blood specimen (specimen) Venous blood / Unknown 02/22/2024 8:29 AM EDT 02/22/2024 us Barry Reyes MD LAB BLOOD ORDERABLES Final Re sult [facility] [address] [place] [address] * Ferritin (02/22/2024 8:29 AM EDT) Pathologist [facility] Ferritin 47 15 - 150 ng/mL [facility] Blood specimen (specimen) Venous blood / Unknown 02/22/2024 8:29 AM EDT 02/22/2024 Barry Reyes MD LAB BLOOD ORDERABLES Final Re sult Performing Organization Address City/[facility]/ZIP Co de Phone Number [facility] [address] [place] [address] * (ABNORMAL) Iron Panel (Fe, TIBC, TSAT) (02/22/2024 8:29 AM EDT) Pathologist [facility] Iron 39 27 - 139 ug/dL [facility] TIBC 310 250 - 450 ug/dL [facility] UIBC 271 118 - 369 ug/dL [facility] Iron Saturation (TSat) 13(L) 15 - 55 % [facility] Blood specimen (specimen) Venous blood / Unknown 02/22/2024 8:29 AM EDT 02/22/2024 Barry Reyes MD LAB BLOOD ORDERABLES Final Re sult [facility] [address] [place] [address] * (ABNORMAL) CBC and Differential (02/22/2024 8:29 AM EDT) Pathologist [facility] WBC 5.9 3.4 - 10.8 x10E3/uL [facility] RBC 5.33(H) 3.77 - 5.28 x10E6/uL [facility] Hemoglobin 10.3(L) 11.1 - 15.9 g/dL [facility] Hematocrit 35.1 34.0 - 46.6 % [facility] MCV 66(L) 79 - 97 fL [facility] MCH 19.3(L) 26.6 - 33.0 pg [facility] MCHC 29.3(L) 31.5 - 35.7 g/dL [facility] RDW 19.3(H) 11.7 - 15.4 % [facility] Platelets 174 150 - 450 x10E3/uL [facility] Neutrophils Relative 71 Not Estab. % [facility] Lymphocytes Relative 21 Not Estab. % [facility] Monocytes 5 Not Estab. % [facility] Eosinophils Relative 1 Not Estab. % [facility] Basophils Relative 1 Not Estab. % [facility] Neutrophils Absolute 4.2 1.4 - 7.0 x10E3/uL [facility] Lymphocytes Absolute 1.3 0.7 - 3.1 x10E3/uL [facility] Monocytes Absolute 0.3 0.1 - 0.9 x10E3/uL [facility] Eosinophils Absolute 0.1 0.0 - 0.4 x10E3/uL [facility] Basophils Absolute 0.0 0.0 - 0.2 x10E3/uL [facility] Immature Granulocytes 1 Not Estab. % [facility] Immature Grans (Absolute) 0.0 0.0 - 0.1 x10E3/uL [facility] Blood specimen (specimen) Venous blood / Unknown 02/22/2024 8:29 AM EDT 02/22/2024 us Barry Reyes MD LAB BLOOD ORDERABLES Final Re sult [facility] [address] [place] [phone] documented in this encounter Visit Diagnoses Diagnosis Chronic kidney disease, stage 2 (mild) Anemia in chronic kidney disease Iron deficiency anemia, not otherwise specified documented in this encounter Care Teams Asbestos Shingle Inspector Relationship Specialty Start Date End Date Sahra Son MD [address] [place] [address] PCP - General Internal Medicine 10/28/22 documented as of this encounter
--- OUTSIDE RECORDS SUMMARY | 2025-02-07 10:38 | XMS_ITS | Encounter Summary ---
Author Organization [facility], Address [address] [place] [address] Phone Care Team Providers Care Slaughterer Religious Ritual Name Role Phone Sahra Son MD Primary Care Provider + Encounter Details Date Type Department Care Team (Late st Contact Info) Description 01/31/2024 Orders Only [facility], [address] [place] [address] Arlene Alston, EMMA [address] [place] [address] Chronic kidney disease, stage 2 [...] (HCC) documented in this encounter Care Teams Slaughterer Religious Ritual Relationship Specialty Start Date End Date Sahra Son MD [address] [facility] [address] [place], [place] [phone] PCP - General Internal Medicine 10/28/22 documented as of this encounter
--- OUTSIDE RECORDS SUMMARY | 2025-02-07 10:38 | XMS_ITS | Encounter Summary ---
Author Organization [facility], Address [address] [place] [address] Phone Care Team Providers Care Steam Conditioner Filling Name Role Phone Sahra Son MD Primary Care Provider + Encounter Details Date Type Department Care Team (Late st Contact Info) Description 11/11/2023 Documentation Only [facility], [address] [place] [address] India Davalos [address] [place], [place] [...] on filedocumented in this encounter Care Teams Steam Conditioner Filling Relationship Specialty Start Date End Date Sahra Son MD [address] [address] PCP - General Internal Medicine 10/28/22 documented as of this encounter
--- OUTSIDE RECORDS SUMMARY | 2025-02-07 10:38 | XMS_ITS | Encounter Summary ---
Author Organization [facility], Address [address] [place] [address] Phone Care Team Providers Care Automobile Relocation Engineer Name Role Phone Sahra Son MD Primary Care Provider + Encounter Details Date Type Department Care Team (Late st Contact Info) Description 12/23/2021 Documentation Only [facility], [address] [facility] [place] [address] Juan Jose Li MD [address] [facility] [place] [address] Social History Tobacco Use Types [...] filedocumented in this encounter Care Teams Automobile Relocation Engineer Relationship Specialty Start Date End Date Sahra Son MD [address] [address] PCP - General Internal Medicine 10/28/22 documented as of this encounter
--- OUTSIDE RECORDS SUMMARY | 2025-02-07 10:38 | XMS_ITS | Encounter Summary ---
Author Organization [facility], Address [address] [place] [address] Phone Care Team Providers Care Macroeconomics Professor Name Role Phone Sahra Son MD Primary Care Provider + Encounter Details Date Type Department Care Team (Late st Contact Info) Description 11/05/2023 Documentation Only [facility], [address] [place] [address] India Davalos [address] [place] [address] Social History Tobacco Use Types [...] on filedocumented in this encounter Care Teams Macroeconomics Professor Relationship Specialty Start Date End Date Sahra Son MD [address] [address] PCP - General Internal Medicine 10/28/22 documented as of this encounter
--- OUTSIDE RECORDS SUMMARY | 2025-02-07 10:38 | XMS_ITS | Encounter Summary ---
Author Organization [facility], Address [address] [place] [address] Phone Care Team Providers Care Bakery Pastry Internship Name Role Phone Sahra Son MD Primary Care Provider + Encounter Details Date Type Department Care Team (Late st Contact Info) Description 06/30/2020 Orders Only [facility] - [facility] [address] [place] [address] Carol Whelan [address] [place] [address] Iron deficiency anemia, not otherwise [...] (mild) documented in this encounter Care Teams Bakery Pastry Internship Relationship Specialty Start Date End Date Sahra Son MD [address] [address] PCP - General Internal Medicine 10/28/22 documented as of this encounter
--- OUTSIDE RECORDS SUMMARY | 2025-02-07 10:38 | XMS_ITS | Encounter Summary ---
Author Organization [facility], Address [address] [place] [address] Phone Care Team Providers Care Summer Associate Name Role Phone Sahra Son MD Primary Care Provider + Encounter Details Date Type Department Care Team (Late st Contact Info) Description 10/07/2021 Documentation Only [facility], [address] [place] [address] India Davalos [address] [place] [address] Social History Tobacco Use Types [...] on filedocumented in this encounter Care Teams Summer Associate Relationship Specialty Start Date End Date Sahra Son MD [address] [address] PCP - General Internal Medicine 10/28/22 documented as of this encounter
--- OUTSIDE RECORDS SUMMARY | 2025-02-07 10:38 | XMS_ITS | Encounter Summary ---
Author Organization [facility], Address [address] [place] [address] Phone Care Team Providers Care Bar Steward Name Role Phone Sahra Son MD Primary Care Provider + Encounter Details Date Type Department Care Team (Late st Contact Info) Description 01/29/2023 Documentation Only [facility], [address] [place] [address] India Davalos [address] [place] [address] Social History Tobacco Use [...] on filedocumented in this encounter Care Teams Bar Steward Relationship Specialty Start Date End Date Sahra Son MD [address] [address] PCP - General Internal Medicine 10/28/22 documented as of this encounter
--- OUTSIDE RECORDS SUMMARY | 2025-02-07 10:38 | XMS_ITS | Encounter Summary ---
Author Organization [facility], Address [address] [place] [address] Phone Care Team Providers Care Strategic Account Director Name Role Phone Sahra Son MD Primary Care Provider + Encounter Details Date Type Department Care Team (Late st Contact Info) Description 08/22/2021 Documentation Only [facility], [address] [place] [address] India Davalos [address] [place] [address] Social History Tobacco Use Types [...] filedocumented in this encounter Care Teams Strategic Account Director Relationship Specialty Start Date End Date Sahra Son MD [address] [address] PCP - General Internal Medicine 10/28/22 documented as of this encounter
--- OUTSIDE RECORDS SUMMARY | 2025-02-07 10:38 | XMS_ITS | Encounter Summary ---
Author Organization [facility], Address [address] [place] [address] Phone Care Team Providers Care Occupational Therapist'S Assistant Name Role Phone Sahra Son MD Primary Care Provider + Encounter Details Date Type Department Care Team (Late st Contact Info) Description 03/22/2024 Documentation Only [facility], [address] [place] [address] India Davalos [address] [place] [address] Social History Tobacco Use Types [...] on filedocumented in this encounter Care Teams Occupational Therapist'S Assistant Relationship Specialty Start Date End Date Sahra Son MD [address] [address] PCP - General Internal Medicine 10/28/22 documented as of this encounter
--- OUTSIDE RECORDS SUMMARY | 2025-02-07 10:38 | XMS_ITS | Encounter Summary ---
Author Organization [facility], Address [address] [place] [address] Phone Care Team Providers Care Chopper Feeder Name Role Phone Sahar Son MD Primary Care Provider + Encounter Details Date Type Department Care Team (Late st Contact Info) Description 08/27/2021 Documentation Only [facility], [address] [place] [address] India Davalos [address] [place] [address] Social History Tobacco Use Types [...] on filedocumented in this encounter Care Teams Chopper Feeder Relationship Specialty Start Date End Date Sahra Son MD [address] [address] PCP - General Internal Medicine 10/28/22 documented as of this encounter
--- OUTSIDE RECORDS SUMMARY | 2025-02-07 10:38 | XMS_ITS | Encounter Summary ---
Author Organization [facility] [place], Address [address] [place] [address] Phone Care Team Providers Care Labeling Specialist Name Role Phone Sahra Son MD Primary Care Provider + Encounter Details Date Type Department Care Team (Late st Contact Info) Description 11/21/2021 Documentation Only [facility], [address] [place] [address] India Davalos [address] [place] [address] Social History Tobacco Use Types [...] on filedocumented in this encounter Care Teams Labeling Specialist Relationship Specialty Start Date End Date Sahra Son MD [address] [address] PCP - General Internal Medicine 10/28/22 documented as of this encounter
--- OUTSIDE RECORDS SUMMARY | 2025-02-07 10:38 | XMS_ITS | Encounter Summary ---
Author Organization [facility] Address [address] [place] [address] Phone Care Team Providers Care Mission Manager Name Role Phone Sahra Son MD Primary Care Provider + Encounter Details Date Type Department Care Team (Late st Contact Info) Description 05/17/2023 Orders Only [facility] [place], [address] [place] [id number] Arlene Alston PA [address] [place] [address] Chronic kidney disease, stage 2 [...] (Fe, TIBC, TSAT) (06/08/2023 8:36 AM EST) [facility] Iron 49 (30-160) MCG/DL [facility] UIBC 246 (110-370) MCG/DL [facility] TIBC 295 (140-530) MCG/DL [facility] Iron Saturation (TSat) 17(L) (20-55) % [facility] Comment: Testing performed or reported by [facility], a Service of [facility], [address] [place] [address] Luis A Bailey MD, Nail Kegger [facility]# [id number] Blood specimen (specimen) Venous blood / Unknown 06/08/2023 8:36 AM EST 06/08/2023 8:39 AM EST Arlene CARTER LAB BLOOD ORDERABLES Final Re sult [facility] * Vitamin D 25 hydroxy (06/08/2023 8:36 AM EST) Vitamin D, 25-Hydroxy 24.8 (20-50) NG/ML [facility] Comment: Testing performed or reported by [facility], a Service of [facility], [address] [place] [address] Luis A Bailey MD, Nail Kegger [facility]# [id number] Blood specimen (specimen) Venous blood / Unknown 06/08/2023 8:36 AM EST 06/08/2023 8:39 AM EST Arlene CARTER LAB BLOOD ORDERABLES Final Re sult [facility] * (ABNORMAL) Renal function panel (06/08/2023 8:36 AM EST) Glucose 166(H) (70-99) MG/DL [facility] BUN 19 (8-23) MG/DL [facility] Creatinine 1.0 (0.5-1.0) MG/DL [facility] Sodium 138 (133-145) MMOL/L [facility] Potassium 4.9 (3.6-5.2) MMOL/L [facility] Chloride 101 (98-107) MMOL/L [facility] Bicarbonate (CO2) 27 (22-29) MMOL/L [facility] Anion Gap 10 (4-17) [facility] Albumin 4.2 (3.4-4.8) GM/DL [facility] Calcium 9.1 (8.6-10.5) MG/DL [facility] Phosphorus, Serum 3.4 (2.5-4.5) MG/DL [facility] Est GFR Non 66 ML/MIN/1.7 3 M2 [facility] Comment: Creatinine based estimated glomerular filtration (eGFR) in adults is calculated using the National Kidney Foundation recommended 2020 CKD-EPI equation. Estimates GFR from serum creatinine, age and sex. Testing performed or reported by [facility], a Service of [facility], [address] [place] [address] Luis A Bailey MD, Nail Kegger CLIA# [id number] Blood specimen (specimen) Venous blood / Unknown 06/08/2023 8:36 AM EST 06/08/2023 8:39 AM EST Arlene CARTER LAB BLOOD ORDERABLES Final Re sult Performing Organization Address [facility] de Phone Number [facility] * Magnesium (06/08/2023 8:36 AM EST) Magnesium 2.1 (1.6-2.3) mg/dL [facility] Comment: Testing performed or reported by [facility], a Service of [facility], [address] [place] [address] Luis A Bailey MD, Nail Kegger CLIA# [id number] Blood specimen (specimen) Venous blood / Unknown 06/08/2023 8:36 AM EST 06/08/2023 8:39 AM EST Arlene CARTER LAB BLOOD ORDERABLES Final Re sult Performing Organization Address [facility] de Phone Number [facility] * (ABNORMAL) Hemoglobin A1c (06/08/2023 8:36 AM EST) Hemoglobin A1C 7.2(H) (4.0-5.6) % [facility] Comment: MONITORING: In known diabetic patients, hemoglobin A1c targets should be discussed with health care provider. DIAGNOSTIC USE: The [employer] (ADA) and the World Health [...] Supplement 1 Testing performed or reported by [facility], a Service of [facility], [address] [place] [address] Luis A Bailey MD, Nail Kegger JESSICA# [id number] Blood specimen (specimen) Venous blood / Unknown 06/08/2023 8:36 AM EST 06/08/2023 8:38 AM EST us Arlene CARTER LAB BLOOD ORDERABLES Final Re sult [facility] * (ABNORMAL) CBC and differential (06/08/2023 8:36 AM EST) White Blood Cells 5.2 (4.0-11.0 ) K/MM3 [facility] RBC 5.08 (4.20-5.4 0) M/MM3 [facility] Hgb 10.1(L) (11.7-15. 5) GM/DL [facility] Hematocrit 32.9(L) (35.7-45. 8) % [facility] MCV 64.8(L) (80.0-100 .0) FL [facility] MCH 19.9(L) (27.0-34. 0) PG [facility] MCHC 30.7(L) (33.0-37. 0) g/dL [facility] Platelets 191 (150-460) K/MM3 [facility] RDW-SD 40.3 (<47.0) FL [facility] MPV NOT MEASURED (9.4-12.4 ) [place] [facility] nRBC Count 0.0 #/100 WBC'S [facility] NRBC Absolute 0.0 K/MM3 [facility] Neutrophils Abs Auto 3.5 (1.3-7.0) K/MM3 [facility] Lymphocytes Relative 1.3 (0.8-3.1) K/MM3 [facility] Monocytes 0.3(L) (0.4-0.9) K/MM3 [facility] Eosinophils Relative 0.1 (0.0-0.4) K/MM3 [facility] Basophil ABS 0.0 (0.0-0.1) K/MM3 [facility] Granulocytes Absolute 0.0 K/MM3 [facility] Neutrophils % Auto 67.3 (44-76) % [facility] Lymphs 24.0 (15-43) % [facility] Monocytes Absolute 5.8 (4.5-10.5 ) % [facility] Eosinophils 1.7 (0-6) % [facility] Basophils Relative 0.8 (0-2) % [facility] Immature Granulocytes 0.4 % [facility] Comment: Testing performed or reported by [facility], a Service of [facility], [address] [place] [address] Luis A Bailey MD, Nail Kegger [facility]# [id number] Blood specimen (specimen) Venous blood / Unknown 06/08/2023 8:36 AM EST 06/08/2023 8:38 AM EST Arlene CARTER LAB BLOOD ORDERABLES Final Re sult [facility] documented in this encounter Visit Diagnoses Diagnosis Chronic kidney disease, stage 2 (mild) Essential (primary) hypertension Anemia in chronic kidney disease Antiphospholipid syndrome (HCC) Type 2 diabetes mellitus, not otherwise specified (HCC) Bleeding hemorrhoids documented in this encounter Care Teams Mission Manager Relationship Specialty Start Date End Date Sahra Son MD [address] [place] [address] PCP - General Internal Medicine 10/28/22 documented as of this encounter
--- OUTSIDE RECORDS SUMMARY | 2025-02-07 10:38 | XMS_ITS | Encounter Summary ---
Author Organization [facility] [place], Address [address] [place] [address] Phone Care Team Providers Care Beer Runner Name Role Phone Sahra Son MD Primary Care Provider + Encounter Details Date Type Department Care Team (Late st Contact Info) Description 06/22/2022 Documentation Only [facility] [place], [address] [place] [address] India Davalos [address] [place] [address] Social History Tobacco Use Types [...] on filedocumented in this encounter Care Teams Beer Runner Relationship Specialty Start Date End Date Sahra Son MD [address] [address] PCP - General Internal Medicine 10/28/22 documented as of this encounter
--- OUTSIDE RECORDS SUMMARY | 2025-02-07 10:38 | XMS_ITS | Encounter Summary ---
Author Organization [facility] [place], Address [address] [place] [address] Phone Care Team Providers Care Bucket Turner Name Role Phone Sahra Son MD Primary Care Provider + Encounter Details Date Type Department Care Team (Late st Contact Info) Description 07/07/2024 Orders Only [facility] [place], [address] [place] [address] India Davalos [address] [place] [address] Anemia in chronic kidney disease; [...] (mild) documented in this encounter Care Teams Bucket Turner Relationship Specialty Start Date End Date Sahra Son MD [address] [address] PCP - General Internal Medicine 10/28/22 documented as of this encounter
--- OUTSIDE RECORDS SUMMARY | 2025-02-07 10:38 | XMS_ITS | Encounter Summary ---
Author Organization [facility] [place], Address [address] [place] [address] Phone Care Team Providers Care Label Printing Machinist Name Role Phone Sahra Son MD Primary Care Provider + Encounter Details Date Type Department Care Team (Late st Contact Info) Description 12/31/2023 Documentation Only [facility] [place], [address] [place] [place] [address] India Davalos [address] [place] [address] Social History Tobacco Use Types [...] filedocumented in this encounter Care Teams Label Printing Machinist Relationship Specialty Start Date End Date Sahra Son MD [address] [address] PCP - General Internal Medicine 10/28/22 documented as of this encounter
--- OUTSIDE RECORDS SUMMARY | 2025-02-07 10:38 | XMS_ITS | Encounter Summary ---
Author Organization [facility] [place], Address [address] [place] [address] Phone Care Team Providers Care Button Tufting Machine Operator Name Role Phone Sahra Son MD Primary Care Provider + Encounter Details Date Type Department Care Team (Late st Contact Info) Description 08/05/2023 Documentation Only [facility] [place], [address] [place] [address] India Davalos [address] [place] [address] Social History Tobacco Use Types [...] filedocumented in this encounter Care Teams Button Tufting Machine Operator Relationship Specialty Start Date End Date Sahra Son MD [address] [address] PCP - General Internal Medicine 10/28/22 documented as of this encounter
--- OUTSIDE RECORDS SUMMARY | 2025-02-07 10:39 | XMS_ITS | Encounter Summary ---
Author Organization [facility] [place], Address [address] [place] [address] Phone Care Team Providers Care Campus Chaplain Name Role Phone Sahra Son MD Primary Care Provider + Encounter Details Date Type Department Care Team (Late st Contact Info) Description 04/05/2024 Documentation Only [facility] [place], [address] [place] [address] India Davalos [address] [place] [address] Social History Tobacco Use Types [...] filedocumented in this encounter Care Teams Campus Chaplain Relationship Specialty Start Date End Date Sahra Son MD [address] [address] PCP - General Internal Medicine 10/28/22 documented as of this encounter
--- OUTSIDE RECORDS SUMMARY | 2025-02-07 10:39 | XMS_ITS | Encounter Summary ---
Author Organization [facility] Address [address] [place] [address] Phone Care Team Providers Care Medical Affairs Manager Name Role Phone Sahra Son MD Primary Care Provider + Encounter Details Date Type Department Care Team (Late st Contact Info) Description 04/28/2024 Orders Only [facility] [place], [address] [place] [address] India Davalos [address] [place] [address] Chronic kidney disease, stage 2 [...] Glucose 153(H) 70 - 99 mg/dL [facility] BUN 17 8 - 27 mg/dL [facility] Creatinine 0.98 0.57 - 1.00 mg/dL [facility] eGFR CKD-EPI CR 2020 64 >59 mL/min/1.7 3 [facility] BUN/Creatinine Ratio 17 12 - 28 [facility] Sodium 142 134 - 144 mmol/L [facility] Potassium 5.0 3.5 - 5.2 mmol/L [facility] Chloride 106 96 - 106 mmol/L [facility] Bicarbonate (CO2) 23 20 - 29 mmol/L [facility] Calcium 8.9 8.7 - 10.3 mg/dL [facility] Albumin 3.9 3.9 - 4.9 g/dL [facility] Phosphorus 3.9 3.0 - 4.3 mg/dL [facility] Blood specimen (specimen) Venous blood / Unknown 05/05/2024 9:18 AM EST 05/05/2024 us Barry Reyes MD LAB BLOOD ORDERABLES Final Re sult [facility] [address] [place] [address] * (ABNORMAL) Ferritin (05/05/2024 9:18 AM EST) Ferritin 282(H) 15 - 150 ng/mL [facility] Blood specimen (specimen) Venous blood / Unknown 05/05/2024 9:18 AM EST 05/05/2024 Barry Reyes MD LAB BLOOD ORDERABLES Final Re sult [facility] [address] [place] [address] * Iron Panel (Fe, TIBC, TSAT) (05/05/2024 9:18 AM EST) Pathologist [facility] TIBC 277 250 - 450 ug/dL [facility] UIBC 210 118 - 369 ug/dL [facility] Iron 67 27 - 139 ug/dL [facility] Iron Saturation (TSat) 24 15 - 55 % [facility] Blood specimen (specimen) Venous blood / Unknown 05/05/2024 9:18 AM EST 05/05/2024 Barry Reyes MD LAB BLOOD ORDERABLES Final Re sult [facility] [address] [place] [address] * (ABNORMAL) CBC and Differential (05/05/2024 9:18 AM EST) Pathologist [facility] WBC 5.6 3.4 - 10.8 x10E3/uL [facility] RBC 5.33(H) 3.77 - 5.28 x10E6/uL [facility] Hemoglobin 10.2(L) 11.1 - 15.9 g/dL [facility] Hematocrit 35.0 34.0 - 46.6 % [facility] MCV 66(L) 79 - 97 fL [facility] MCH 19.1(L) 26.6 - 33.0 pg [facility] MCHC 29.1(L) 31.5 - 35.7 g/dL [facility] RDW 20.1(H) 11.7 - 15.4 % [facility] Platelets 163 150 - 450 x10E3/uL [facility] Neutrophils Relative 64 Not Estab. % [facility] Lymphocytes Relative 26 Not Estab. % [facility] Monocytes 6 Not Estab. % [facility] Eosinophils Relative 3 Not Estab. % [facility] Basophils Relative 1 Not Estab. % [facility] Neutrophils Absolute 3.6 1.4 - 7.0 x10E3/uL [facility] Lymphocytes Absolute 1.5 0.7 - 3.1 x10E3/uL [facility] Monocytes Absolute 0.3 0.1 - 0.9 x10E3/uL [facility] Eosinophils Absolute 0.2 0.0 - 0.4 x10E3/uL [facility] Basophils Absolute 0.0 0.0 - 0.2 x10E3/uL [facility] Immature Granulocytes 0 Not Estab. % [facility] Immature Grans (Absolute) 0.0 0.0 - 0.1 x10E3/uL [facility] Blood specimen (specimen) Venous blood / Unknown 05/05/2024 9:18 AM EST 05/05/2024 us Barry Reyes MD LAB BLOOD ORDERABLES Final Re sult [facility] [address] [place] [address] documented in this encounter Visit Diagnoses Diagnosis Chronic kidney disease, stage 2 (mild) Anemia in chronic kidney disease Iron deficiency anemia, not otherwise specified documented in this encounter Care Teams Medical Affairs Manager Relationship Specialty Start Date End Date Sahra Son MD [address] [place] [address] PCP - General Internal Medicine 10/28/22 documented as of this encounter
--- OUTSIDE RECORDS SUMMARY | 2025-02-07 10:39 | XMS_ITS | Encounter Summary ---
Author Organization [facility] Address [address] [place] [address] Phone Care Team Providers Care Tyre Finisher And Examiner Name Role Phone Sahra Son MD Primary Care Provider + Encounter Details Date Type Department Care Team (Late st Contact Info) Description 09/01/2024 Orders Only [facility] [place], [address] [place] [address] India Davalos [address] [place] [address] Anemia in chronic kidney disease; [...] Glucose 233(H) 70 - 99 mg/dL [facility] BUN 15 8 - 27 mg/dL [facility] Creatinine 1.01(H) 0.57 - 1.00 mg/dL [facility] eGFR CKD-EPI CR 2020 62 >59 mL/min/1.7 3 [facility] BUN/Creatinine Ratio 15 12 - 28 [facility] Sodium 138 134 - 144 mmol/L [facility] Potassium 4.9 3.5 - 5.2 mmol/L [facility] Chloride 101 96 - 106 mmol/L [facility] Bicarbonate (CO2) 19(L) 20 - 29 mmol/L [facility] Calcium 9.1 8.7 - 10.3 mg/dL [facility] Albumin 4.2 3.9 - 4.9 g/dL [facility] Phosphorus 3.8 3.0 - 4.3 mg/dL [facility] Blood specimen (specimen) Venous blood / Unknown 09/06/2024 8:15 AM EDT 09/06/2024 us Barry Reyes MD LAB BLOOD ORDERABLES Final Re sult [facility] [address] [place] [address] * Ferritin (09/06/2024 8:15 AM EDT) Pathologist [facility] Ferritin 37 15 - 150 ng/mL [facility] Blood specimen (specimen) Venous blood / Unknown 09/06/2024 8:15 AM EDT 09/06/2024 Barry Reyes MD LAB BLOOD ORDERABLES [facility] [address] [place] [address] * (ABNORMAL) Iron Panel (Fe, TIBC, TSAT) (09/06/2024 8:15 AM EDT) Pathologist [facility] TIBC 323 250 - 450 ug/dL [facility] UIBC 286 118 - 369 ug/dL [facility] Iron 37 27 - 139 ug/dL [facility] Iron Saturation (TSat) 11(L) 15 - 55 % [facility] Blood specimen (specimen) Venous blood / Unknown 09/06/2024 8:15 AM EDT 09/06/2024 Barry Reyes MD LAB BLOOD ORDERABLES Final Re sult [facility] [address] [place] [address] * (ABNORMAL) CBC and Differential (09/06/2024 8:15 AM EDT) Pathologist [facility] WBC 6.3 3.4 - 10.8 x10E3/uL [facility] RBC 5.35(H) 3.77 - 5.28 x10E6/uL [facility] Hemoglobin 10.6(L) 11.1 - 15.9 g/dL [facility] Hematocrit 35.8 34.0 - 46.6 % [facility] MCV 67(L) 79 - 97 fL [facility] MCH 19.8(L) 26.6 - 33.0 pg [facility] MCHC 29.6(L) 31.5 - 35.7 g/dL [facility] RDW 18.4(H) 11.7 - 15.4 % [facility] Platelets 190 150 - 450 x10E3/uL [facility] Neutrophils Relative 67 Not Estab. % [facility] Lymphocytes Relative 22 Not Estab. % [facility] Monocytes 6 Not Estab. % [facility] Eosinophils Relative 3 Not Estab. % [facility] Basophils Relative 1 Not Estab. % [facility] Neutrophils Absolute 4.3 1.4 - 7.0 x10E3/uL [facility] Lymphocytes Absolute 1.4 0.7 - 3.1 x10E3/uL [facility] Monocytes Absolute 0.4 0.1 - 0.9 x10E3/uL [facility] Eosinophils Absolute 0.2 0.0 - 0.4 x10E3/uL [facility] Basophils Absolute 0.1 0.0 - 0.2 x10E3/uL [facility] Immature Granulocytes 1 Not Estab. % [facility] Immature Grans (Absolute) 0.1 0.0 - 0.1 x10E3/uL [facility] Blood specimen (specimen) Venous blood / Unknown 09/06/2024 8:15 AM EDT 09/06/2024 us Barry Reyes MD LAB BLOOD ORDERABLES Final Re sult [facility] [address] [place] [phone] documented in this encounter Visit Diagnoses Diagnosis Anemia in chronic kidney disease Other iron deficiency anemia Chronic kidney disease, stage 2 (mild) documented in this encounter Care Teams Tyre Finisher And Examiner Relationship Specialty Start Date End Date Sahra Son MD [address] [place] [address] PCP - General Internal Medicine 10/28/22 documented as of this encounter
--- OUTSIDE RECORDS SUMMARY | 2025-02-07 10:39 | XMS_ITS | Encounter Summary ---
Author Organization [facility] [place], Address [address] [place] [address] Phone Care Team Providers Care Manager Policy Name Role Phone Sahra Son MD Primary Care Provider + Encounter Details Date Type Department Care Team (Late st Contact Info) Description 10/30/2022 Documentation Only [facility] [place], [address] [place] [address] India Davalos [address] [place] [address] Social History Tobacco Use Types [...] filedocumented in this encounter Care Teams Manager Policy Relationship Specialty Start Date End Date Sahra Son MD [address] [address] PCP - General Internal Medicine 10/28/22 documented as of this encounter
--- OUTSIDE RECORDS SUMMARY | 2025-02-07 10:39 | XMS_ITS | Encounter Summary ---
Author Organization [facility] [place], Address [address] [place] [address] Phone Care Team Providers Care Plum Packer Name Role Phone Sahra Son MD Primary Care Provider + Encounter Details Date Type Department Care Team (Late st Contact Info) Description 10/26/2022 Documentation Only [facility] [place], [address] [place] [address] India Davalos [address] [place] [address] Social History Tobacco Use Types [...] on filedocumented in this encounter Care Teams Plum Packer Relationship Specialty Start Date End Date Sahra Son MD [address] [address] PCP - General Internal Medicine 10/28/22 documented as of this encounter
--- OUTSIDE RECORDS SUMMARY | 2025-02-07 10:39 | XMS_ITS | Encounter Summary ---
Author Organization [facility] [place], Address [address] [place] [address] Phone Care Team Providers Care Anodic Treater Name Role Phone Sahra Son MD Primary Care Provider + Encounter Details Date Type Department Care Team (Late st Contact Info) Description 04/05/2024 Documentation Only [facility] [place], [address] [place] [address] India Davalos [address] [place] [address] Social History Tobacco Use [...] on filedocumented in this encounter Care Teams Anodic Treater Relationship Specialty Start Date End Date Sahra Son MD [address] [address] PCP - General Internal Medicine 10/28/22 documented as of this encounter
--- OUTSIDE RECORDS SUMMARY | 2025-02-07 10:39 | XMS_ITS | Clinical Summary ---
Author Organization 175 [facility] Address 175 [place] [address] Phone Care Team Providers Care Hogshead Hooper Name Role Phone Sahra Son MD Primary Care Provider + Encounters Date Type Department Care Team Description 11/15/2024 Telephone Gastroenterology - [place] 175 [facility] 175 [facility] [address] [place] [address] Jc Guerrier MD from Last 3 Months Surgical History Surgery Date Site/Laterality Comments OTHER SURGICAL HISTORY 1975 PROCEDURE: [place] ECTOPIC ABDOMINAL/VAGINAL APPR PARTIAL HYSTERECTOMY PROCEDURE: [place] SUPRACERVICAL ABDL HYSTER W/WO RMVL TUBE OVARY CHOLECYSTECTOMY 1982 PROCEDURE: HISTORICAL CHOLECYSTECTOMY CARPAL TUNNEL RELEASE 11/21/2014 Left PROCEDURE: HISTORICAL CARPAL TUNNEL REL BOWEL RESECTION 03/2004 PROCEDURE: HISTORICAL BOWEL RESECTION; COMMENT: bowel obstruction Medical History Medical History Date Comments Diverticulosis DX:Diverticulosi s CHF (congestive heart failur e) ([facility] V24, [facility] V28) DX:CHF (congestive heart fa ilure) ([facility]) COPD (chronic obstructive pu lmonary disease) ([facility] V24, [facility] V28) DX:COPD (chronic o bstructive pulmonary disease) ([facility]) Osteoporosis DX:Osteoporosis Fibromyalgia DX:Fibromyalgia Myelofibrosis ([facility] V24, [facility] V28) DX:Myelofibrosis ([facility]); COMM ENT: diagnosed 8 years ago, follows with DR layne Meningioma ([facility] V24, [facility] V28) DX:Meningioma ([facility]) Asthma DX:Asthma Gout DX:Gout Seizures ([facility] V24, [facility] V28) DX:Seizures ([facility]) Lupus DX:Lupus Depression DX:Depression; C OMMENT: follows at [facility] net at [address] Gann Hypercoagulable state ([facility] V24) DX:Hypercoagulable state ([facility]); COMMENT: on coumadin Neurogenic bladder DX:Neurogenic bladder; COMMENT: flowers dependent Supplemental oxygen dependent DX :Supplemental oxygen dependent Lung nodule 03/22/2017 DX:Lung nodule ALESSANDRA (obstructive sleep apnea) 03/22/2017 DX :ALESSANDRA (obstructive sleep apnea) GERD (gastroesophageal reflux disease) 03/22/2017 DX:GERD (gastroesophageal reflux disease) Anxiety 03/22/2017 DX:Anxiety Dementia ([facility] V24, [facility] V28) 03/22/2017 DX:Dementia ([facility]) Schizophrenia ([facility] V24, [facility] V28) 03/22/2017 DX:Schizophrenia ([facility]) Glaucoma 03/22/2017 DX:Glaucoma History of stroke DX:History of stroke History of deep vein thrombosis DX:History of deep vein thrombosis Coronary artery disease DX:Coron christine artery disease; COMMENT: Old [place] Diabetes mellitus type 2 wit h neurological manifestations ([facility] V24, [facility] V28) DX:Diabetes mellitus type 2 with neurological manifestations ([facility]) Leukemia ([facility] V24, [facility] V28) 09/02/2017 DX:Leukemia ([facility]) MDS (myelodysplastic syndrom e) ([facility] V24, [facility] V28) 09/02/2017 DX:MDS (myelodysplastic syn drome) ([facility]) Hyperthyroidism 09/02/2017 DX:Hyperthyroidi sm History [...] 02/08/2025 9:10 AM EDT Consult Gastroenterology - [place] 175 [place] [address] [facility] [address] [place] [id number] Deloris Vickers PA 175 [facility] [address] [place] [address] Health Maintenance Due Date Last Done Comments [...] patient's age to complete this topic Insurance [facility] Member Subscriber Plan / Payer (Ef fective for All Dates) Name:Jennifer Schulz Relation to Subscriber:Self Name:Jennifer Schulz Payer ID:[id number] Group ID:[id number] Type:Not on file Address: [place] [address] [place] [phone] Care Teams Hogshead Hooper Relationship Specialty Start Date End Date Sahra Son MD [address] [place] [address] [phone] PCP - General Internal Medicine 11/15/24
--- OUTSIDE RECORDS SUMMARY | 2025-02-07 10:39 | XMS_ITS | Encounter Summary ---
Author Organization [facility] Address [address] [place] [address] Phone Care Team Providers Care Yard Clerk Name Role Phone Sahra Son MD Primary Care Provider + Encounter Details Date Type Department Care Team (Late st Contact Info) Description 08/04/2024 Orders Only [facility] [place], [address] [place] [address] India Davalos [address] [place] [address] Anemia in chronic kidney disease; [...] Glucose 168(H) 70 - 99 mg/dL [facility] BUN 15 8 - 27 mg/dL [facility] Creatinine 0.93 0.57 - 1.00 mg/dL [facility] eGFR CKD-EPI CR 2020 69 >59 mL/min/1.7 3 [facility] BUN/Creatinine Ratio 16 12 - 28 [facility] Sodium 139 134 - 144 mmol/L [facility] Chloride 103 96 - 106 mmol/L [facility] Bicarbonate (CO2) 24 20 - 29 mmol/L [facility] Calcium 8.8 8.7 - 10.3 mg/dL [facility] Phosphorus 3.8 3.0 - 4.3 mg/dL [facility] Albumin 4.1 3.9 - 4.9 g/dL [facility] Potassium 4.8 3.5 - 5.2 mmol/L [facility] Blood specimen (specimen) Venous blood / Unknown 08/07/2024 8:15 AM EDT 08/07/2024 us Barry Reyes MD LAB BLOOD ORDERABLES Final Re sult [facility] [address] [place] [address] * Ferritin (08/07/2024 8:15 AM EDT) Pathologist [facility] Ferritin 55 15 - 150 ng/mL [facility] Blood specimen (specimen) Venous blood / Unknown 08/07/2024 8:15 AM EDT 08/07/2024 Barry Reyes MD LAB BLOOD ORDERABLES Final Re sult Performing Organization Address [facility]/ZIP Co de Phone Number [facility] [address] [place] [address] * (ABNORMAL) Iron Panel (Fe, TIBC, TSAT) (08/07/2024 8:15 AM EDT) Pathologist [facility] TIBC 290 250 - 450 ug/dL [facility] UIBC 251 118 - 369 ug/dL [facility] Iron 39 27 - 139 ug/dL [facility] Iron Saturation (TSat) 13(L) 15 - 55 % [facility] Blood specimen (specimen) Venous blood / Unknown 08/07/2024 8:15 AM EDT 08/07/2024 Barry Reyes MD LAB BLOOD ORDERABLES Final Re sult [facility] [address] [place] [address] * (ABNORMAL) CBC and Differential (08/07/2024 8:15 AM EDT) Pathologist [facility] WBC 5.6 3.4 - 10.8 x10E3/uL [facility] RBC 5.41(H) 3.77 - 5.28 x10E6/uL [facility] Hemoglobin 10.7(L) 11.1 - 15.9 g/dL [facility] Hematocrit 36.1 34.0 - 46.6 % [facility] MCV 67(L) 79 - 97 fL [facility] MCH 19.8(L) 26.6 - 33.0 pg [facility] MCHC 29.6(L) 31.5 - 35.7 g/dL [facility] RDW 18.9(H) 11.7 - 15.4 % [facility] Platelets 171 150 - 450 x10E3/uL [facility] Neutrophils Relative 65 Not Estab. % [facility] Lymphocytes Relative 25 Not Estab. % [facility] Monocytes 6 Not Estab. % [facility] Eosinophils Relative 3 Not Estab. % [facility] Basophils Relative 1 Not Estab. % [facility] Neutrophils Absolute 3.6 1.4 - 7.0 x10E3/uL [facility] Lymphocytes Absolute 1.4 0.7 - 3.1 x10E3/uL [facility] Monocytes Absolute 0.4 0.1 - 0.9 x10E3/uL [facility] Eosinophils Absolute 0.2 0.0 - 0.4 x10E3/uL [facility] Basophils Absolute 0.0 0.0 - 0.2 x10E3/uL [facility] Immature Granulocytes 0 Not Estab. % [facility] Immature Grans (Absolute) 0.0 0.0 - 0.1 x10E3/uL [facility] Blood specimen (specimen) Venous blood / Unknown 08/07/2024 8:15 AM EDT 08/07/2024 us Barry Reyes MD LAB BLOOD ORDERABLES Final Re sult [facility] [address] [place] [address] documented in this encounter Visit Diagnoses Diagnosis Anemia in chronic kidney disease Other iron deficiency anemia Chronic kidney disease, stage 2 (mild) documented in this encounter Care Teams Yard Clerk Relationship Specialty Start Date End Date Sahra Son MD [address] [place] [phone] PCP - General Internal Medicine 10/28/22 documented as of this encounter
--- OUTSIDE RECORDS SUMMARY | 2025-02-07 10:39 | XMS_ITS | Encounter Summary ---
Author Organization [facility] [place], Address [address] [place] [address] Phone Care Team Providers Care Cosmetology Teacher Name Role Phone Sahra Son MD Primary Care Provider + Encounter Details Date Type Department Care Team (Late st Contact Info) Description 03/31/2024 Orders Only [facility] [place], [address] [place] [address] India Davalos [address] [place] [address] Chronic kidney disease, stage 2 [...] specified documented in this encounter Care Teams Cosmetology Teacher Relationship Specialty Start Date End Date Sahra Son MD [address] [address] PCP - General Internal Medicine 10/28/22 documented as of this encounter
--- OUTSIDE RECORDS SUMMARY | 2025-02-07 10:39 | XMS_ITS | Encounter Summary ---
Author Organization [facility] [place], Address [address] [place] [address] Phone Care Team Providers Care Eyeglass Frames Inspector Name Role Phone Sahra Son MD Primary Care Provider + Encounter Details Date Type Department Care Team (Late st Contact Info) Description 02/01/2023 Documentation Only [facility] [place], [address] [place] [address] India Davalos [address] [place] [address] Social History Tobacco Use Types [...] on filedocumented in this encounter Care Teams Eyeglass Frames Inspector Relationship Specialty Start Date End Date Sahra Son MD [address] [phone] PCP - General Internal Medicine 10/28/22 documented as of this encounter
--- OUTSIDE RECORDS SUMMARY | 2025-02-07 10:39 | XMS_ITS | Encounter Summary ---
Author Organization [facility] [place] [facility], Address [address] [place] [address] Phone Care Team Providers Care Building Serviceman Name Role Phone Sahra Son MD Primary Care Provider + Encounter Details Date Type Department Care Team (Late st Contact Info) Description 01/29/2023 Documentation Only [facility], [address] [place] [address] India Davalos [address] [place] [address] Social History Tobacco Use Types [...] End Date Sahra Son MD [address] [address] PCP - General Internal Medicine 10/28/22 documented as of this encounter
--- OUTSIDE RECORDS SUMMARY | 2025-02-07 10:39 | XMS_ITS | Encounter Summary ---
Author Organization [facility] [place], Address [address] [place] [address] Phone Care Team Providers Care President Ceo & Founder Name Role Phone Sahra Son MD Primary Care Provider + Encounter Details Date Type Department Care Team (Late st Contact Info) Description 06/25/2021 Documentation Only [facility] [place], [address] [place] [address] India Davalos [address] [place] [address] Social History Tobacco Use Types [...] on filedocumented in this encounter Care Teams President Ceo & Founder Relationship Specialty Start Date End Date Shara Son MD [address] [address] PCP - General Internal Medicine 10/28/22 documented as of this encounter
--- OUTSIDE RECORDS SUMMARY | 2025-02-07 10:39 | XMS_ITS | Encounter Summary ---
Author Organization [facility] Address [address] [place] [address] Phone Care Team Providers Care Advisory Services Associate Name Role Phone Sahra Son MD Primary Care Provider + Encounter Details Date Type Department Care Team (Late st Contact Info) Description 05/26/2024 Orders Only [facility] [place], [address] [place] [address] India Davalos [address] [place] [address] Chronic kidney disease, stage 2 [...] Glucose 168(H) 70 - 99 mg/dL [facility] BUN 17 8 - 27 mg/dL [facility] Creatinine 1.09(H) 0.57 - 1.00 mg/dL [facility] eGFR CKD-EPI CR 2020 57(L) >59 mL/min/1.7 3 [facility] BUN/Creatinine Ratio 16 12 - 28 [facility] Sodium 137 134 - 144 mmol/L [facility] Potassium 4.8 3.5 - 5.2 mmol/L [facility] Chloride 99 96 - 106 mmol/L [facility] Bicarbonate (CO2) 23 20 - 29 mmol/L [facility] Calcium 9.0 8.7 - 10.3 mg/dL [facility] Albumin 4.2 3.9 - 4.9 g/dL [facility] Phosphorus 4.4(H) 3.0 - 4.3 mg/dL [facility] Blood specimen (specimen) Venous blood / Unknown 06/07/2024 11:53 AM EST 06/07/2024 us Barry Reyes MD LAB BLOOD ORDERABLES Final Re sult [facility] [address] [place] [address] * Ferritin (06/07/2024 11:53 AM EST) Pathologist [facility] Ferritin 102 15 - 150 ng/mL [facility] Blood specimen (specimen) Venous blood / Unknown 06/07/2024 11:53 AM EST 06/07/2024 Barry Reyes MD LAB BLOOD ORDERABLES Final Re sult [facility] [address] [place] [address] * Iron Panel (Fe, TIBC, TSAT) (06/07/2024 11:53 AM EST) Pathologist [facility] TIBC 262 250 - 450 ug/dL [facility] UIBC 205 118 - 369 ug/dL [facility] Iron 57 27 - 139 ug/dL [facility] Iron Saturation (TSat) 22 15 - 55 % [facility] Blood specimen (specimen) Venous blood / Unknown 06/07/2024 11:53 AM EST 06/07/2024 Barry Reyes MD LAB BLOOD ORDERABLES Final Re sult [facility] [address] [place] [address] * (ABNORMAL) CBC and Differential (06/07/2024 11:53 AM EST) Pathologist [facility] WBC 5.5 3.4 - 10.8 x10E3/uL [facility] RBC 5.76(H) 3.77 - 5.28 x10E6/uL [facility] Hemoglobin 11.1 11.1 - 15.9 g/dL [facility] Hematocrit 38.4 34.0 - 46.6 % [facility] MCV 67(L) 79 - 97 fL [facility] MCH 19.3(L) 26.6 - 33.0 pg [facility] MCHC 28.9(L) 31.5 - 35.7 g/dL [facility] RDW 18.8(H) 11.7 - 15.4 % [facility] Platelets 162 150 - 450 x10E3/uL [facility] Neutrophils Relative 59 Not Estab. % [facility] Lymphocytes Relative 31 Not Estab. % [facility] Monocytes 6 Not Estab. % [facility] Eosinophils Relative 2 Not Estab. % [facility] Basophils Relative 1 Not Estab. % [facility] Neutrophils Absolute 3.3 1.4 - 7.0 x10E3/uL [facility] Lymphocytes Absolute 1.7 0.7 - 3.1 x10E3/uL [facility] Monocytes Absolute 0.3 0.1 - 0.9 x10E3/uL [facility] Eosinophils Absolute 0.1 0.0 - 0.4 x10E3/uL [facility] Basophils Absolute 0.0 0.0 - 0.2 x10E3/uL [facility] Immature Granulocytes 1 Not Estab. % [facility] Immature Grans (Absolute) 0.0 0.0 - 0.1 x10E3/uL [facility] Blood specimen (specimen) Venous blood / Unknown 06/07/2024 11:53 AM EST 06/07/2024 us Barry Reyes MD LAB BLOOD ORDERABLES Final Re sult [facility] [address] [place] [address] documented in this encounter Visit Diagnoses Diagnosis Chronic kidney disease, stage 2 (mild) Anemia in chronic kidney disease Iron deficiency anemia, not otherwise specified documented in this encounter Care Teams Advisory Services Associate Relationship Specialty Start Date End Date Sahra Son MD [address] [place] [address] PCP - General Internal Medicine 10/28/22 documented as of this encounter
--- OUTSIDE RECORDS SUMMARY | 2025-02-07 10:39 | XMS_ITS | Clinical Summary ---
Author Organization [facility] [place], Address [address] [place] [address] [place] [address] Phone Care Team Providers Care Landscape Painter Name Role Phone Sahra Son MD Primary Care Provider + Allergies Active Allergy Reactions Criticality Noted Date Comments Codeine 12/26/2012 Ferumoxytol Shortness of breath,Itching,Other (see comments) High 02/27/2022 Bones hurt Iodinated Contrast Media 07/06/2022 Penicillins 12/26/2012 Other Shellfish Allergy 12/26/2012 Tramadol 07/06/2022 Trazodone 03/08/2018 Iron Sucrose 02/29/2024 Coughing fit infusion stopped at [facility] Medications Cymbalta [address] capsule TK 2 CS PO QAM 12/28/19 20 Active LORazepam (ATIVAN) 1 MG tablet TK 1 T PO BID 12/24/19 20 Active meclizine (ANTIVERT) 25 MG tablet TK 1 T PO TID PRN 12/24/19 20 Active montelukast (SINGULAIR) 10 MG tablet TK 1 T PO QD IN THE DARCY 11/19/19 20 Active Creon 11207-10082 units capsule TK ONE C PO TID [...] [facility] [address] [place] [address] [place]oop, [place] Anemia in chronic kidney disease; Other iron deficiency anemia; Chronic kidney disease, stage 2 (mild) 01/10/2025 Telephone [facility] [address] [place] [address] Stephanie Azul RN 12/22/2024 Orders Only [facility] [address] [place] [address] Anoop, [place] Anemia in chronic kidney disease; Other iron deficiency anemia; Chronic kidney disease, stage 2 (mild) 12/18/2024 Documentation Only [facility] [address] [place] [address] Anoop, [place] 11/24/2024 Orders Only [facility] [address] [place] [address] Anoop, [place] Anemia in chronic kidney disease; Other iron deficiency anemia; Chronic kidney disease, stage 2 (mild) 11/13/2024 Documentation Only [facility] [address] [place] [address] Anoop, [place] 11/10/2024 Orders Only [facility] [address] [place] [address] Anoop, [place] Chronic kidney disease, stage 2 [...] Procedure Name Priority Date/Time Associated Diagnosis Comments HEMOGLOBIN A1C Routine 06/08/2023 8:36 AM EST Chronic kidney disease, stage 2 (mild) Essential (primary) hypertension Anemia in chronic kidney disease Antiphospholipid syndrome (HCC) Type 2 diabetes mellitus, not otherwise specified (HCC) Bleeding hemorrhoids from Last 3 Months or Most Recently Relevant to Health Maintenance Results * (ABNORMAL) Hemoglobin A1c (06/08/2023 8:36 AM EST) Hemoglobin A1C 7.2(H) (4.0-5.6) % [facility] Comment: MONITORING: In known diabetic patients, hemoglobin A1c targets should be discussed with health care provider. DIAGNOSTIC USE: The [place] [employer] (ADA) and the World [...] Supplement 1 Testing performed or reported by [facility] Reference [employer], a Service of [facility], [address] [place] [address] Luis A Bailey MD, Guest Experience Representative [facility]# [id number] Blood specimen (specimen) Venous blood / Unknown 06/08/2023 8:36 AM EST 06/08/2023 8:38 AM EST Arlene CARTER LAB BLOOD ORDERABLES Final Re sult [facility] from Last 3 Months or Most Recently Relevant to Health Maintenance Insurance [employer] Dual SNP ([id number]) [place] [id number] Care Teams Landscape Painter Relationship Specialty Start Date End Date Sahra Son MD [address] [place] [address] PCP - General Internal Medicine 10/28/22
--- OUTSIDE RECORDS SUMMARY | 2025-02-07 10:39 | XMS_ITS | Encounter Summary ---
Author Organization [facility] [place], Address [address] [place] [address] Phone Care Team Providers Care Underwriting Support Specialist Name Role Phone Sahra Son MD Primary Care Provider + Encounter Details Date Type Department Care Team (Late st Contact Info) Description 12/18/2024 Documentation Only [facility] [place], [address] [place] [address] India Davalos [address] [place] [address] Social History Tobacco Use Types [...] on filedocumented in this encounter Care Teams Underwriting Support Specialist Relationship Specialty Start Date End Date Sahra Son MD [address] [address] PCP - General Internal Medicine 10/28/22 documented as of this encounter
--- OUTSIDE RECORDS SUMMARY | 2025-02-07 10:39 | XMS_ITS | Encounter Summary ---
Author Organization [facility] [place], Address [address] [place] [address] Phone Care Team Providers Care Bit Shaver Name Role Phone Sahra Son MD Primary Care Provider + Encounter Details Date Type Department Care Team (Late st Contact Info) Description 07/03/2021 Documentation Only [facility] [place], [address] [facility] [place] [address] Juan Jose Li MD [address] [facility] [place] [address] Social History Tobacco Use Types [...] on filedocumented in this encounter Care Teams Bit Shaver Relationship Specialty Start Date End Date Sahra Son MD [address] [address] PCP - General Internal Medicine 10/28/22 documented as of this encounter
--- OUTSIDE RECORDS SUMMARY | 2025-02-07 10:40 | XMS_ITS | Encounter Summary ---
Author Organization [facility] [place], Address [address] [place] [address] Phone Care Team Providers Care Field Engineer Name Role Phone Sahra Son MD Primary Care Provider + Encounter Details Date Type Department Care Team (Late st Contact Info) Description 10/13/2024 Orders Only [facility] [place], [address] [place] [address] India Davalos [address] [place] [address] Chronic kidney disease, stage 2 [...] specified documented in this encounter Care Teams Field Engineer Relationship Specialty Start Date End Date Sahra Son MD [address] [address] PCP - General Internal Medicine 10/28/22 documented as of this encounter
--- OUTSIDE RECORDS SUMMARY | 2025-02-07 10:40 | XMS_ITS | Encounter Summary ---
Author Organization [facility] [place], Address [address] [place] [address] Phone Care Team Providers Care Topstitcher Zigzag Name Role Phone Sahra Son MD Primary Care Provider + Encounter Details Date Type Department Care Team (Late st Contact Info) Description 11/24/2024 Orders Only [facility] [place], [address] [place] [address] India Davalos [address] [place] [address] Anemia in chronic kidney disease; [...] (mild) documented in this encounter Care Teams Topstitcher Zigzag Relationship Specialty Start Date End Date Sahra Son MD [address] [address] PCP - General Internal Medicine 10/28/22 documented as of this encounter
--- OUTSIDE RECORDS SUMMARY | 2025-02-07 10:40 | XMS_ITS | Encounter Summary ---
Author Organization [facility], Address [address] [place] [address] Phone Care Team Providers Care Calciner Operator Helper Name Role Phone Sahra Son MD Primary Care Provider + Encounter Details Date Type Department Care Team (Late st Contact Info) Description 07/21/2024 Orders Only [facility] [address] [facility], [address] [place] [address] India Davalos [address] [place] [address] Chronic kidney disease, stage 2 [...] specified documented in this encounter Care Teams Calciner Operator Helper Relationship Specialty Start Date End Date Sahra Son MD [address] [address] PCP - General Internal Medicine 10/28/22 documented as of this encounter
--- OUTSIDE RECORDS SUMMARY | 2025-02-07 10:40 | XMS_ITS | Clinical Summary ---
Author Organization [facility] Address [address] [place] [address] Care Team Providers Care Clinical Trial Educator Name Role Phone Geovani Natalie Carmelo ESPARZA Primary Care Provider [phone] Allergies Active Allergy Reactions Criticality Noted Date [...] 1 10/04/2016 Active ergocalciferol (VITAMIN D2) capsule 17627 units TK ONE C PO TWICE A [...] times a day. 0 04/27/2022 Active pancrelipase, Kua-Gzag-Jaad, (Creon) 66433-[address] units CPEP TK ONE C PO TID [...] age to complete this topic Care Teams Clinical Trial Educator Relationship Specialty Start Date End Date Natalie Olivo APRN [address] [place] [address] PCP - General Data Warehousing Engineer 04/30/22
--- OUTSIDE RECORDS SUMMARY | 2025-02-07 10:40 | XMS_ITS | Encounter Summary ---
Author Organization [facility] Address [address] [place] [address] Phone Care Team Providers Care Geographic Information Systems Manager Name Role Phone Sahra Son MD Primary Care Provider + Encounter Details Date Type Department Care Team (Late st Contact Info) Description 10/27/2024 Orders Only [facility] [place], [address] [place] [address] India Davalos [address] [place] [address] Anemia in chronic kidney disease; [...] Glucose 238(H) 70 - 99 mg/dL [facility] BUN 15 8 - 27 mg/dL [facility] Creatinine 0.96 0.57 - 1.00 mg/dL [facility] eGFR CKD-EPI CR 2020 66 >59 mL/min/1.7 3 [facility] BUN/Creatinine Ratio 16 12 - 28 [facility] Sodium 137 134 - 144 mmol/L [facility] Potassium 4.7 3.5 - 5.2 mmol/L [facility] Chloride 100 96 - 106 mmol/L [facility] Bicarbonate (CO2) 20 20 - 29 mmol/L [facility] Calcium 9.0 8.7 - 10.3 mg/dL [facility] Albumin 4.3 3.9 - 4.9 g/dL [facility] Phosphorus 2.8(L) 3.0 - 4.3 mg/dL [facility] Blood specimen (specimen) Venous blood / Unknown 11/01/2024 8:45 AM EDT 11/01/2024 us Barry Reyes MD LAB BLOOD ORDERABLES Final Re sult [facility] [address] [place] [address] * (ABNORMAL) Ferritin (11/01/2024 8:45 AM EDT) Ferritin 480(H) 15 - 150 ng/mL [facility] Blood specimen (specimen) Venous blood / Unknown 11/01/2024 8:45 AM EDT 11/01/2024 Barry Reyes MD LAB BLOOD ORDERABLES Final Re sult Performing Organization Address City/[facility]/ZIP Co de Phone Number [facility] [address] [place] [address] * (ABNORMAL) Iron Panel (Fe, TIBC, TSAT) (11/01/2024 8:45 AM EDT) Pathologist [facility] TIBC 238(L) 250 - 450 ug/dL [facility] UIBC 168 118 - 369 ug/dL [facility] Iron 70 27 - 139 ug/dL [facility] Iron Saturation (TSat) 29 15 - 55 % [facility] Blood specimen (specimen) Venous blood / Unknown 11/01/2024 8:45 AM EDT 11/01/2024 Barry Reyes MD LAB BLOOD ORDERABLES Final Re sult [facility] [address] [place] [address] * (ABNORMAL) CBC and Differential (11/01/2024 8:45 AM EDT) WBC 6.6 3.4 - 10.8 x10E3/uL [facility] RBC 5.45(H) 3.77 - 5.28 x10E6/uL [facility] Hemoglobin 11.2 11.1 - 15.9 g/dL [facility] Hematocrit 38.3 34.0 - 46.6 % [facility] MCV 70(L) 79 - 97 fL [facility] MCH 20.6(L) 26.6 - 33.0 pg [facility] MCHC 29.2(L) 31.5 - 35.7 g/dL [facility] RDW 18.8(H) 11.7 - 15.4 % [facility] Platelets 175 150 - 450 x10E3/uL [facility] Neutrophils Relative 71 Not Estab. % [facility] Lymphocytes Relative 20 Not Estab. % [facility] Monocytes 6 Not Estab. % [facility] Eosinophils Relative 1 Not Estab. % [facility] Basophils Relative 1 Not Estab. % [facility] Neutrophils Absolute 4.7 1.4 - 7.0 x10E3/uL [facility] Lymphocytes Absolute 1.3 0.7 - 3.1 x10E3/uL [facility] Monocytes Absolute 0.4 0.1 - 0.9 x10E3/uL [facility] Eosinophils Absolute 0.1 0.0 - 0.4 x10E3/uL [facility] Basophils Absolute 0.1 0.0 - 0.2 x10E3/uL [facility] Immature Granulocytes 1 Not Estab. % [facility] Immature Grans (Absolute) 0.0 0.0 - 0.1 x10E3/uL [facility] Blood specimen (specimen) Venous blood / Unknown 11/01/2024 8:45 AM EDT 11/01/2024 us Barry Reyes MD LAB BLOOD ORDERABLES Final Re sult [facility] [address] [place] [phone] documented in this encounter Visit Diagnoses Diagnosis Anemia in chronic kidney disease Other iron deficiency anemia Chronic kidney disease, stage 2 (mild) documented in this encounter Care Teams Geographic Information Systems Manager Relationship Specialty Start Date End Date Sahra Son MD [address] [place] [id number] PCP - General Internal Medicine 10/28/22 documented as of this encounter
--- OUTSIDE RECORDS SUMMARY | 2025-02-07 10:40 | XMS_ITS | Encounter Summary ---
Author Organization [facility] Address [address] [place] [address] Phone Care Team Providers Care Brick Veneer Maker Name Role Phone Sahra Son MD Primary Care Provider + Encounter Details Date Type Department Care Team (Late st Contact Info) Description 09/29/2024 Orders Only [facility] [place], [address] [place] [address] India Davalos [address] [place] [address] Anemia in chronic kidney disease; [...] Glucose 219(H) 70 - 99 mg/dL [facility] BUN 14 8 - 27 mg/dL [facility] Creatinine 1.09(H) 0.57 - 1.00 mg/dL [facility] eGFR CKD-EPI CR 2020 57(L) >59 mL/min/1.7 3 [facility] BUN/Creatinine Ratio 13 12 - 28 [facility] Sodium 139 134 - 144 mmol/L [facility] Potassium 5.0 3.5 - 5.2 mmol/L [facility] Chloride 101 96 - 106 mmol/L [facility] Bicarbonate (CO2) 20 20 - 29 mmol/L [facility] Calcium 9.2 8.7 - 10.3 mg/dL [facility] Albumin 4.1 3.9 - 4.9 g/dL [facility] Phosphorus 3.7 3.0 - 4.3 mg/dL [facility] Blood specimen (specimen) Venous blood / Unknown 10/04/2024 9:48 AM EDT 10/04/2024 us Barry Reyes MD LAB BLOOD ORDERABLES Final Re sult [facility] [address] [place] [address] * (ABNORMAL) Ferritin (10/04/2024 9:48 AM EDT) Pathologist [facility] Ferritin 167(H) 15 - 150 ng/mL [facility] Blood specimen (specimen) Venous blood / Unknown 10/04/2024 9:48 AM EDT 10/04/2024 Barry Reyes MD LAB BLOOD ORDERABLES Final Re sult [facility] [address] [place] [address] * (ABNORMAL) Iron Panel (Fe, TIBC, TSAT) (10/04/2024 9:48 AM EDT) Pathologist [facility] TIBC 247(L) 250 - 450 ug/dL [facility] UIBC 205 118 - 369 ug/dL [facility] Iron 42 27 - 139 ug/dL [facility] Iron Saturation (TSat) 17 15 - 55 % [facility] Blood specimen (specimen) Venous blood / Unknown 10/04/2024 9:48 AM EDT 10/04/2024 Barry Reyes MD LAB BLOOD ORDERABLES Final Re sult [facility] [address] [place] [address] * (ABNORMAL) CBC and Differential (10/04/2024 9:48 AM EDT) WBC 6.0 3.4 - 10.8 x10E3/uL [facility] RBC 5.10 3.77 - 5.28 x10E6/uL [facility] Hemoglobin 10.2(L) 11.1 - 15.9 g/dL [facility] Hematocrit 35.1 34.0 - 46.6 % [facility] MCV 69(L) 79 - 97 fL [facility] MCH 20.0(L) 26.6 - 33.0 pg [facility] MCHC 29.1(L) 31.5 - 35.7 g/dL [facility] RDW 18.5(H) 11.7 - 15.4 % [facility] Platelets 170 150 - 450 x10E3/uL [facility] Neutrophils Relative 69 Not Estab. % [facility] Lymphocytes Relative 22 Not Estab. % [facility] Monocytes 6 Not Estab. % [facility] Eosinophils Relative 2 Not Estab. % [facility] Basophils Relative 1 Not Estab. % [facility] Neutrophils Absolute 4.2 1.4 - 7.0 x10E3/uL [facility] Lymphocytes Absolute 1.3 0.7 - 3.1 x10E3/uL [facility] Monocytes Absolute 0.3 0.1 - 0.9 x10E3/uL [facility] Eosinophils Absolute 0.1 0.0 - 0.4 x10E3/uL [facility] Basophils Absolute 0.1 0.0 - 0.2 x10E3/uL [facility] Immature Granulocytes 0 Not Estab. % [facility] Immature Grans (Absolute) 0.0 0.0 - 0.1 x10E3/uL [facility] Blood specimen (specimen) Venous blood / Unknown 10/04/2024 9:48 AM EDT 10/04/2024 us Barry Reyes MD LAB BLOOD ORDERABLES Final Re sult [facility] [address] [place] [phone] documented in this encounter Visit Diagnoses Diagnosis Anemia in chronic kidney disease Other iron deficiency anemia Chronic kidney disease, stage 2 (mild) documented in this encounter Care Teams Brick Veneer Maker Relationship Specialty Start Date End Date Sahra Son MD [address] [place] [phone] PCP - General Internal Medicine 10/28/22 documented as of this encounter
--- OUTSIDE RECORDS SUMMARY | 2025-02-07 10:40 | XMS_ITS | Encounter Summary ---
Author Organization [facility] [place], Address [address] [place] [address] Phone Care Team Providers Care Tool And Gauge Inspector Name Role Phone Sahra Son MD Primary Care Provider + Encounter Details Date Type Department Care Team (Late st Contact Info) Description 11/10/2024 Orders Only [facility] [place], [address] [place] [address] India Davalos [address] [place] [address] Chronic kidney disease, stage 2 [...] specified documented in this encounter Care Teams Tool And Gauge Inspector Relationship Specialty Start Date End Date Sahra Son MD [address] [address] PCP - General Internal Medicine 10/28/22 documented as of this encounter
--- OUTSIDE RECORDS SUMMARY | 2025-02-07 10:40 | XMS_ITS | Encounter Summary ---
Author Organization [facility] Address [address] [place] [address] Phone Care Team Providers Care Nurse Staff Name Role Phone Sahra Son MD Primary Care Provider + Encounter Details Date Type Department Care Team (Late st Contact Info) Description 01/19/2025 Orders Only [facility] [place], [address] [place] [address] India Davalos [address] [place] [address] Anemia in chronic kidney disease; [...] (mild) documented in this encounter Care Teams Nurse Staff Relationship Specialty Start Date End Date Sahra Son MD [address] [address] PCP - General Internal Medicine 10/28/22 documented as of this encounter
--- OUTSIDE RECORDS SUMMARY | 2025-02-07 10:40 | XMS_ITS | Encounter Summary ---
Author Organization [facility] [place], Address [address] [place] [address] Phone Care Team Providers Care Developmental Electronics Assembler Name Role Phone Sahra Son MD Primary Care Provider + Encounter Details Date Type Department Care Team (Late st Contact Info) Description 11/13/2024 Documentation Only [facility] [place], [address] [place] [address] India Davalos [address] [place] [address] Social History Tobacco [...] on filedocumented in this encounter Care Teams Developmental Electronics Assembler Relationship Specialty Start Date End Date Sahra Son MD [address] [address] PCP - General Internal Medicine 10/28/22 documented as of this encounter
--- OUTSIDE RECORDS SUMMARY | 2025-02-07 10:40 | XMS_ITS | Encounter Summary ---
Author Organization [facility] [place], Address [address] [place] [address] Phone Care Team Providers Care Pattern Checker Name Role Phone Sahra Son MD Primary Care Provider + Encounter Details Date Type Department Care Team (Late st Contact Info) Description 06/23/2024 Orders Only [facility] [place], [address] [place] [address] India Davalos [address] [place] [address] Chronic kidney disease, stage 2 [...] specified documented in this encounter Care Teams Pattern Checker Relationship Specialty Start Date End Date Sahra Son MD [address] [address] PCP - General Internal Medicine 10/28/22 documented as of this encounter
== END 2025-02-07 09:20 | disposition home or self-care (01) ==
LOC: HO.ACS 09:04
PROVIDERS: PCP Internal Medicine; Visit Provider Internal Medicine Medical Oncology
DX: Z79.01 Long term (current) use of anticoagulants (principal)

== ENCOUNTER → 2025-02-07 09:04 | Outpatient (BNVA) | payer OTHER, SELFPAY | PROVIDERS: PCP Internal Medicine; Visit Provider Internal Medicine Medical Oncology | DX: Z86.718 Personal history of other venous thrombosis and embolism (principal); Z79.01 Long term (current) use of anticoagulants; Z51.81 Encounter for therapeutic drug level monitoring | CPT/HCPCS: 85610; 99211 ==

== ENCOUNTER 2025-02-20 09:07 | Outpatient (AMB) | payer OTHER, SELFPAY ==
[2025-02-20 09:31] LABS: Prothrombin Time Whole Bld POC 56.0 sec (11.1-13.5); ~PT, ~INR - Anti Coag Clinic 4.7 (0.9-1.1)
--- NOTE | 2025-02-20 09:35 | MHC.OFFVISCO ---
Intake Intake Visit Reasons: Anticoagulation Allergies codeine (Codeine) Allergy (Severe, Verified 02/20/25 09:22) DIFFICULTY BREATHING Penicillins Allergy (Severe, Verified 02/20/25 09:22) RASH penicillin V Allergy (Intermediate, Verified 02/20/25 09:22) RASH tramadol (Ultram) Allergy (Unknown, Verified 02/20/25 09:22) hallucinations Shellfish Allergy (Severe, Uncoded 02/20/25 09:22) THROAT SWELLING Contrast Allergy PreMed Pack Allergy (Unknown, Uncoded 02/20/25 09:22) TREAT WITH BENADRYL ferrlecit Adverse Reaction (Intermediate, Uncoded 02/20/25 09:22) Rash Medication List - Last Reconciled 02/20/25 by Tonia Angeles, LAURITA alcohol swabs 2 pad topical DAILY blood sugar diagnostic As directed budesonide (Pulmicort) 0.25 mg inhalation BID clonidine HCl 0.1 mg PO BID dapagliflozin propanediol (Farxiga) 5 mg PO DAILY divalproex ER 250 mg PO BID docusate sodium (Colace) 100 mg PO DAILY duloxetine (Cymbalta) 30 mg PO DAILY duloxetine 60 mg PO QAM epoetin marj (Procrit) 2,000 units subcut 3XW hydrocortisone 2.5% appl topical insulin glargine (Lantus Solostar U-100 Insulin) 5 units subcut DAILY ipratropium-albuterol 0.5 mg-3 mg(2.5 mg base)/3 mL mL inhalation ipratropium-albuterol 20-100 mcg/actuation 1 puff PO QID ipratropium-albuterol 20-100 mcg/actuation (Combivent Respimat) 1 puff inhalation Q4H lancets As directed lancets As directed latanoprost 0.005% drps ophthalmic (eye) lidocaine 4% (Lidocaine Pain Relief) 1 patch topical DAILY PRN linaclotide (Linzess) 145 mcg PO DAILY linagliptin (Tradjenta) 5 mg PO DAILY ysrbao-prxfoqku-dlxifom 24,000-76,000 -120,000 unit (Creon) 1 cap PO TID loratadine 10 mg PO DAILY PRN lorazepam 1 mg PO BID meclizine mg PO montelukast 10 mg PO BEDTIME nifedipine ER 30 mg PO DAILY nitroglycerin 0.4 mg sublingual Q5M PRN nystatin 1 appl topical DAILY PRN ondansetron 4 mg PO Q8H PRN oxcarbazepine (Trileptal) 150 mg PO Q12H 30 days quetiapine 200 mg PO BEDTIME rabeprazole 20 mg PO DAILY ropinirole 0.25 mg PO BEDTIME rosuvastatin 40 mg PO DAILY sodium chloride 0.65% (Deep Sea Nasal) sprays intranasal Q2H PRN triamcinolone acetonide 0.1% appl topical warfarin 2.5 mg See Protocol PO DAILY Nursing Note INR: 4.7 out of therapeutic range of 2-3 Medications and supplements reviewed Patient status: usual state of health Medications or supplements: no changes Diet: usual diet for pt Denies any signs and symptoms of bleeding or clotting or unusual bruising Bleeding, bruising, clotting discussed Nutritional guidance given: to have a serving of greens today Dose: hold today's dose of 5mg and decrease tomorrow's dose of 3.75mg to 2.5mg the 5mg X 5 days and 3.75mg X 2 days (Wed & Wed) F/U INR Date: 1 week?? Patient verbalizing understanding of instructions given. 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
--- OUTSIDE RECORDS SUMMARY | 2025-02-20 10:03 | XMS_ITS | Encounter Summary ---
Author Organization [facility] [place], Address [address] [place] [address] Phone Care Team Providers Care Zoology Technical Officer Name Role Phone Sahra Son MD Primary Care Provider + Encounter Details Date Type Department Care Team (Late st Contact Info) Description 06/18/2021 Documentation Only [facility] [place], [address] [place] [address] India Davalos [address] [place] [address] Social History Tobacco Use [...] on filedocumented in this encounter Care Teams Zoology Technical Officer Relationship Specialty Start Date End Date Sahra Son MD [address] [address] PCP - General Internal Medicine 10/28/22 documented as of this encounter
--- OUTSIDE RECORDS SUMMARY | 2025-02-20 10:04 | XMS_ITS | Encounter Summary ---
Author Organization [facility] [place], Address [address] [place] [address] Phone Care Team Providers Care Mechanical Systems Control Engineer Name Role Phone Sahra Son MD Primary Care Provider + Encounter Details Date Type Department Care Team (Late st Contact Info) Description 06/30/2020 Orders Only [facility] [place] [facility] [address] [place] [address] Carol Whelan [address] [place] [address] Iron deficiency anemia, not otherwise [...] (mild) documented in this encounter Care Teams Mechanical Systems Control Engineer Relationship Specialty Start Date End Date Sahra Son MD [address] [phone] PCP - General Internal Medicine 10/28/22 documented as of this encounter
--- OUTSIDE RECORDS SUMMARY | 2025-02-20 10:04 | XMS_ITS | Encounter Summary ---
Author Organization [facility] [place], Address [address] [place] [address] Phone Care Team Providers Care Animal Ride Attendant Name Role Phone Sahra Son MD Primary Care Provider + Encounter Details Date Type Department Care Team (Late st Contact Info) Description 06/09/2024 Orders Only [facility] [place], [address] [place] [address] India Davalos [address] [place] [address] Anemia in chronic kidney [...] (mild) documented in this encounter Care Teams Animal Ride Attendant Relationship Specialty Start Date End Date Sahra Son MD [address] [address] PCP - General Internal Medicine 10/28/22 documented as of this encounter
--- OUTSIDE RECORDS SUMMARY | 2025-02-20 10:04 | XMS_ITS | Encounter Summary ---
Author Organization [facility] [place], Address [address] [place] [address] Phone Care Team Providers Care First Press Operator Name Role Phone Sahra Son MD Primary Care Provider + Encounter Details Date Type Department Care Team (Late st Contact Info) Description 09/28/2022 Documentation Only [facility] [place], [address] [place] [address] India Davalos [address] [place] [address] Social History Tobacco Use Types [...] on filedocumented in this encounter Care Teams First Press Operator Relationship Specialty Start Date End Date Sahra Son MD [address] [address] PCP - General Internal Medicine 10/28/22 documented as of this encounter
--- OUTSIDE RECORDS SUMMARY | 2025-02-20 10:04 | XMS_ITS | Encounter Summary ---
Author Organization [facility] [place], Address [address] [place] [address] Phone Care Team Providers Care Real Estate Listing Consultant Name Role Phone Sahra Son MD Primary Care Provider + Encounter Details Date Type Department Care Team (Late st Contact Info) Description 01/31/2024 Orders Only [facility] [place], [address] [place] [address] Arlene Alston, EMMA [address] [place] [address] Chronic kidney disease, stage 2 [...] (HCC) documented in this encounter Care Teams Real Estate Listing Consultant Relationship Specialty Start Date End Date Sahra Son MD [address] [facility] [address] [place], [place] [id number] PCP - General Internal Medicine 10/28/22 documented as of this encounter
--- OUTSIDE RECORDS SUMMARY | 2025-02-20 10:04 | XMS_ITS | Encounter Summary ---
Author Organization [facility] [place], Address [address] [place] [address] Phone Care Team Providers Care Grease Monkey Name Role Phone Sahra Son MD Primary Care Provider + Encounter Details Date Type Department Care Team (Late st Contact Info) Description 08/11/2022 Documentation Only [facility] [place], [address] [place] [address] India Davalos [address] [place], [...] on filedocumented in this encounter Care Teams Grease Monkey Relationship Specialty Start Date End Date Sahra Son MD [address] [address] PCP - General Internal Medicine 10/28/22 documented as of this encounter
--- OUTSIDE RECORDS SUMMARY | 2025-02-20 10:04 | XMS_ITS | Encounter Summary ---
Author Organization [facility] [place], Address [address] [place] [address] Phone Care Team Providers Care Cath Lab Name Role Phone Sahra Son MD Primary Care Provider + Encounter Details Date Type Department Care Team (Late st Contact Info) Description 01/06/2022 Documentation Only [facility] [place], [address] [facility] [place] [address] Juan Jose Li MD [address] [facility] [place] [address] Social History Tobacco Use Types [...] on filedocumented in this encounter Care Teams Cath Lab Relationship Specialty Start Date End Date Sahra Son MD [address] [address] PCP - General Internal Medicine 10/28/22 documented as of this encounter
--- OUTSIDE RECORDS SUMMARY | 2025-02-20 10:04 | XMS_ITS | Encounter Summary ---
Author Organization [facility] [place], Address [address] [place] [address] Phone Care Team Providers Care Bend Up Name Role Phone Sahra Son MD Primary Care Provider + Encounter Details Date Type Department Care Team (Late st Contact Info) Description 09/18/2022 Documentation Only [facility] [place], [address] [place] [address] India Davalos [address] [place] [address] Social History Tobacco Use Types [...] End Date Sahra Son MD [address] [address] PCP - General Internal Medicine 10/28/22 documented as of this encounter
--- OUTSIDE RECORDS SUMMARY | 2025-02-20 10:04 | XMS_ITS | Encounter Summary ---
Author Organization [facility] [place], Address [address] [place] [address] Phone Care Team Providers Care Sessions Clerk Name Role Phone Sahra Son MD Primary Care Provider + Encounter Details Date Type Department Care Team (Late st Contact Info) Description 09/28/2022 Documentation Only [facility] [place], [address] [place] [address] India Davalos [address] [place] [address] Social History Tobacco Use Types [...] on filedocumented in this encounter Care Teams Sessions Clerk Relationship Specialty Start Date End Date Sahra Son MD [address] [address] PCP - General Internal Medicine 10/28/22 documented as of this encounter
--- OUTSIDE RECORDS SUMMARY | 2025-02-20 10:04 | XMS_ITS | Encounter Summary ---
Author Organization [facility] [place], Address [address] [place] [address] Phone Care Team Providers Care Perl Programmer Name Role Phone Sahra Son MD Primary Care Provider + Encounter Details Date Type Department Care Team (Late st Contact Info) Description 06/16/2022 Documentation Only [facility] [place], [address] [place] [address] India Davalos [address] [place] [address] Social History Tobacco Use [...] on filedocumented in this encounter Care Teams Perl Programmer Relationship Specialty Start Date End Date Sahra Son MD [address] [address] PCP - General Internal Medicine 10/28/22 documented as of this encounter
--- OUTSIDE RECORDS SUMMARY | 2025-02-20 10:04 | XMS_ITS | Encounter Summary ---
Author Organization [facility], Address [address] [place] [address] Phone Care Team Providers Care Financial Representative Name Role Phone Sahra Son MD Primary Care Provider + Encounter Details Date Type Department Care Team (Late st Contact Info) Description 11/11/2023 Documentation Only [facility], [address] [place] [address] India Davalos [address] [place] [address] Social History Tobacco Use Types [...] on filedocumented in this encounter Care Teams Financial Representative Relationship Specialty Start Date End Date Sahra Son MD [address] [address] PCP - General Internal Medicine 10/28/22 documented as of this encounter
--- OUTSIDE RECORDS SUMMARY | 2025-02-20 10:04 | XMS_ITS | Encounter Summary ---
Author Organization [facility] [place], Address [address] [place] [address] Phone Care Team Providers Care Caseworker Intake Name Role Phone Sahra Son MD Primary Care Provider + Encounter Details Date Type Department Care Team (Late st Contact Info) Description 01/04/2024 Documentation Only [facility], [address] [place] [address] India Davalos [address] [place] [address] Social History Tobacco Use Types [...] on filedocumented in this encounter Care Teams Caseworker Intake Relationship Specialty Start Date End Date Sahra Son MD [address] [address] PCP - General Internal Medicine 10/28/22 documented as of this encounter
--- OUTSIDE RECORDS SUMMARY | 2025-02-20 10:04 | XMS_ITS | Encounter Summary ---
Author Organization [facility] [place], Address [address] [place] [address] Phone Care Team Providers Care Multifocal Lens Assembler Name Role Phone Sahra Son MD Primary Care Provider + Encounter Details Date Type Department Care Team ([facility] st Contact Info) Description 04/14/2022 Documentation Only [facility] [place], [address] [place] [address] India Davalos [address] [place], [place] [...] on filedocumented in this encounter Care Teams Multifocal Lens Assembler Relationship Specialty Start Date End Date Sahra Son MD [address] [address] PCP - General Internal Medicine 10/28/22 documented as of this encounter
--- OUTSIDE RECORDS SUMMARY | 2025-02-20 10:04 | XMS_ITS | Encounter Summary ---
Author Organization [facility] Address [address] [place] [address] Phone Care Team Providers Care Track Liner Operator Name Role Phone Sahra Son MD Primary Care Provider + Encounter Details Date Type Department Care Team (Late st Contact Info) Description 12/22/2024 Orders Only [facility] [place], [address] [place] [address] India Davalos [address] [place] [address] Anemia in chronic kidney disease; [...] (mild) documented in this encounter Care Teams Track Liner Operator Relationship Specialty Start Date End Date Sahra Son MD [address] [address] PCP - General Internal Medicine 10/28/22 documented as of this encounter
--- OUTSIDE RECORDS SUMMARY | 2025-02-20 10:04 | XMS_ITS | Encounter Summary ---
Author Organization [facility] [place], Address [address] [place] [address] Phone Care Team Providers Care Magazine Worker Name Role Phone Sahra Son MD Primary Care Provider + Encounter Details Date Type Department Care Team (Late st Contact Info) Description 11/21/2021 Documentation Only [facility] [place], [address] [place] [address] India Davalos [address] [place] [address] Social History Tobacco Use Types [...] on filedocumented in this encounter Care Teams Magazine Worker Relationship Specialty Start Date End Date Sahra Son MD [address] [address] PCP - General Internal Medicine 10/28/22 documented as of this encounter
--- OUTSIDE RECORDS SUMMARY | 2025-02-20 10:04 | XMS_ITS | Encounter Summary ---
Author Organization [facility] [place], Address [address] [place] [address] Phone Care Team Providers Care Honing Machine Try Out Setter Name Role Phone Sahra Son MD Primary Care Provider + Encounter Details Date Type Department Care Team (Late st Contact Info) Description 12/31/2023 Documentation Only [facility] [place], [address] [place] [address] India Davalos [address] [place] [address] Social History [...] on filedocumented in this encounter Care Teams Honing Machine Try Out Setter Relationship Specialty Start Date End Date Sahra Son MD [address] [address] PCP - General Internal Medicine 10/28/22 documented as of this encounter
--- OUTSIDE RECORDS SUMMARY | 2025-02-20 10:04 | XMS_ITS | Encounter Summary ---
Author Organization [facility] [place], Address [address] [place] [address] Phone Care Team Providers Care Laminating Machine Offbearer Name Role Phone Sahra Son MD Primary Care Provider + Encounter Details Date Type Department Care Team (Late st Contact Info) Description 11/11/2023 Documentation Only [facility], [address] [place] [address] India Davalos [address] [place] [address] Social History Tobacco Use [...] on filedocumented in this encounter Care Teams Laminating Machine Offbearer Relationship Specialty Start Date End Date Sahra Son MD [address] [address] PCP - General Internal Medicine 10/28/22 documented as of this encounter
--- OUTSIDE RECORDS SUMMARY | 2025-02-20 10:04 | XMS_ITS | Encounter Summary ---
Author Organization [facility] [place], Address [address] [place] [address] Phone Care Team Providers Care Parachute Officer Name Role Phone Sahra Son MD Primary Care Provider + Encounter Details Date Type Department Care Team ([facility] st Contact Info) Description 04/08/2022 Documentation Only [facility] [place], [address] [place] [address] India Davalos [address] [place] [address] Social History Tobacco Use Types [...] on filedocumented in this encounter Care Teams Parachute Officer Relationship Specialty Start Date End Date Sahra Son MD [address] [address] PCP - General Internal Medicine 10/28/22 documented as of this encounter
--- OUTSIDE RECORDS SUMMARY | 2025-02-20 10:04 | XMS_ITS | Encounter Summary ---
Author Organization [facility] Address [address] [place] [address] Phone Care Team Providers Care Ticket Manager Name Role Phone Sahra Son MD Primary Care Provider + Encounter Details Date Type Department Care Team (Late st Contact Info) Description 03/03/2024 Orders Only [facility] [place], [address] [place] [address] India Davalos [address] [place] [address] Chronic kidney disease, stage 2 [...] Glucose 152(H) 70 - 99 mg/dL [facility] BUN 16 8 - 27 mg/dL [facility] Creatinine 0.98 0.57 - 1.00 mg/dL [facility] eGFR CKD-EPI CR 2020 64 >59 mL/min/1.7 3 [facility] BUN/Creatinine Ratio 16 12 - 28 [facility] Sodium 137 134 - 144 mmol/L [facility] Potassium 4.8 3.5 - 5.2 mmol/L [facility] Chloride 101 96 - 106 mmol/L [facility] Bicarbonate (CO2) 22 20 - 29 mmol/L [facility] Calcium 8.8 8.7 - 10.3 mg/dL [facility] Albumin 4.0 3.9 - 4.9 g/dL [facility] Phosphorus 4.0 3.0 - 4.3 mg/dL [facility] Blood specimen (specimen) Venous blood / Unknown 03/24/2024 10:37 AM EST 03/24/2024 us Barry Reyes MD LAB BLOOD ORDERABLES Final Re sult [facility] [address] [place] [address] * Ferritin (03/24/2024 10:37 AM EST) Pathologist [facility] Ferritin 37 15 - 150 ng/mL [facility] Blood specimen (specimen) Venous blood / Unknown 03/24/2024 10:37 AM EST 03/24/2024 Barry Reyes MD LAB BLOOD ORDERABLES Final Re sult Performing Organization Address City/[facility]/ZIP Co de Phone Number [facility] [address] [place] [address] * Iron Panel (Fe, TIBC, TSAT) (03/24/2024 10:37 AM EST) [facility] TIBC 293 250 - 450 ug/dL [facility] UIBC 247 118 - 369 ug/dL [facility] Iron 46 27 - 139 ug/dL [facility] Iron Saturation (TSat) 16 15 - 55 % [facility] Blood specimen (specimen) Venous blood / Unknown 03/24/2024 10:37 AM EST 03/24/2024 Barry Reyes MD LAB BLOOD ORDERABLES Final Re sult [facility] [address] [place] [address] * (ABNORMAL) CBC and Differential (03/24/2024 10:37 AM EST) Pathologist [facility] WBC 6.0 3.4 - 10.8 x10E3/uL [facility] RBC 5.21 3.77 - 5.28 x10E6/uL [facility] Hemoglobin 10.0(L) 11.1 - 15.9 g/dL [facility] Hematocrit 35.3 34.0 - 46.6 % [facility] MCV 68(L) 79 - 97 fL [facility] MCH 19.2(L) 26.6 - 33.0 pg [facility] MCHC 28.3(L) 31.5 - 35.7 g/dL [facility] RDW 19.4(H) 11.7 - 15.4 % [facility] Platelets 186 150 - 450 x10E3/uL [facility] Neutrophils Relative 65 Not Estab. % [facility] Lymphocytes Relative 26 Not Estab. % [facility] Monocytes 6 Not Estab. % [facility] Eosinophils Relative 2 Not Estab. % [facility] Basophils Relative 1 Not Estab. % [facility] Neutrophils Absolute 3.9 1.4 - 7.0 x10E3/uL [facility] Lymphocytes Absolute 1.5 0.7 - 3.1 x10E3/uL [facility] Monocytes Absolute 0.3 0.1 - 0.9 x10E3/uL [facility] Eosinophils Absolute 0.1 0.0 - 0.4 x10E3/uL [facility] Basophils Absolute 0.0 0.0 - 0.2 x10E3/uL [facility] Immature Granulocytes 0 Not Estab. % [facility] Immature Grans (Absolute) 0.0 0.0 - 0.1 x10E3/uL [facility] Blood specimen (specimen) Venous blood / Unknown 03/24/2024 10:37 AM EST 03/24/2024 us Barry Reyes MD LAB BLOOD ORDERABLES Final Re sult [facility] [address] [place] [address] documented in this encounter Visit Diagnoses Diagnosis Chronic kidney disease, stage 2 (mild) Anemia in chronic kidney disease Iron deficiency anemia, not otherwise specified documented in this encounter Care Teams Ticket Manager Relationship Specialty Start Date End Date Sahra Son MD [address] [place] [address] PCP - General Internal Medicine 10/28/22 documented as of this encounter
--- OUTSIDE RECORDS SUMMARY | 2025-02-20 10:04 | XMS_ITS | Encounter Summary ---
Author Organization [facility] [place], Address [address] [place] [address] Phone Care Team Providers Care Military Pay Clerk Name Role Phone Sahra Son MD Primary Care Provider + Encounter Details Date Type Department Care Team (Late st Contact Info) Description 11/11/2023 Documentation Only [facility], [address] [place] [address] India Davalos [address] [place] [address] Social History Tobacco Use Types [...] on filedocumented in this encounter Care Teams Military Pay Clerk Relationship Specialty Start Date End Date Sahra Son MD [address] [address] PCP - General Internal Medicine 10/28/22 documented as of this encounter
--- OUTSIDE RECORDS SUMMARY | 2025-02-20 10:04 | XMS_ITS | Encounter Summary ---
Author Organization [facility] [place], Address [address] [place] [address] Phone Care Team Providers Care Sales Superintendent Name Role Phone Sahra Son MD Primary Care Provider + Encounter Details Date Type Department Care Team (Late st Contact Info) Description 03/23/2024 Documentation Only [facility] [place], [address] [place] [address] India Davalos [address] [place] [address] Social History Tobacco Use Types [...] filedocumented in this encounter Care Teams Sales Superintendent Relationship Specialty Start Date End Date Sahra Son MD [address] [address] PCP - General Internal Medicine 10/28/22 documented as of this encounter
--- OUTSIDE RECORDS SUMMARY | 2025-02-20 10:04 | XMS_ITS | Encounter Summary ---
Author Organization [facility] [place], Address [address] [place] [address] Phone Care Team Providers Care Housekeeper/Laundry Assistant Name Role Phone Sahra Son MD Primary Care Provider + Encounter Details Date Type Department Care Team (Late st Contact Info) Description 11/11/2023 Documentation Only [facility] [place], [address] [place] [address] India Davalos [address] [place] [address] Social History Tobacco Use Types [...] on filedocumented in this encounter Care Teams Housekeeper/Laundry Assistant Relationship Specialty Start Date End Date Sahra Son MD [address] [address] PCP - General Internal Medicine 10/28/22 documented as of this encounter
--- OUTSIDE RECORDS SUMMARY | 2025-02-20 10:04 | XMS_ITS | Encounter Summary ---
Author Organization [facility] [place], Address [address] [place] [address] Phone Care Team Providers Care Softball Player Name Role Phone Sahra Son MD Primary Care Provider + Encounter Details Date Type Department Care Team (Late st Contact Info) Description 11/11/2023 Documentation Only [facility] [place], [address] [place] [address] India Davalos [address] [place] [address] Social History Tobacco Use [...] on filedocumented in this encounter Care Teams Softball Player Relationship Specialty Start Date End Date Sahra Son MD [address] [address] PCP - General Internal Medicine 10/28/22 documented as of this encounter
--- OUTSIDE RECORDS SUMMARY | 2025-02-20 10:04 | XMS_ITS | Encounter Summary ---
Author Organization [facility] [place], Address [address] [place] [address] Phone Care Team Providers Care Jackhammer Splitter Operator Name Role Phone Sahra Son MD Primary Care Provider + Encounter Details Date Type Department Care Team (Late st Contact Info) Description 08/24/2024 Documentation Only [facility] [place], [address] [place] [address] India Davalos [address] [place] [address] Social History Tobacco Use Types [...] on filedocumented in this encounter Care Teams Jackhammer Splitter Operator Relationship Specialty Start Date End Date Sahra Son MD [address] [address] PCP - General Internal Medicine 10/28/22 documented as of this encounter
--- OUTSIDE RECORDS SUMMARY | 2025-02-20 10:04 | XMS_ITS | Encounter Summary ---
Author Organization [facility] [place], Address [address] [place] [address] Phone Care Team Providers Care Lidding Machine Operator Name Role Phone Sahra Son MD Primary Care Provider + Encounter Details Date Type Department Care Team (Late st Contact Info) Description 03/22/2024 Documentation Only [facility], [address] [place] [address] India Davalos [address] [place], [place] [...] on filedocumented in this encounter Care Teams Lidding Machine Operator Relationship Specialty Start Date End Date Sahra Son MD [address] [address] PCP - General Internal Medicine 10/28/22 documented as of this encounter
--- OUTSIDE RECORDS SUMMARY | 2025-02-20 10:04 | XMS_ITS | Encounter Summary ---
Author Organization [facility] [place], Address [address] [place] [address] Phone Care Team Providers Care Negative Cleaner Name Role Phone Sahra Son MD Primary Care Provider + Encounter Details Date Type Department Care Team (Late st Contact Info) Description 11/17/2023 Documentation Only [facility], [address] [place] [address] India Davalos [address] [place] [address] Social History Tobacco Use Types [...] on filedocumented in this encounter Care Teams Negative Cleaner Relationship Specialty Start Date End Date Sahra Son MD [address] [address] PCP - General Internal Medicine 10/28/22 documented as of this encounter
--- OUTSIDE RECORDS SUMMARY | 2025-02-20 10:04 | XMS_ITS | Encounter Summary ---
Author Organization [facility] [place], Address [address] [place] [address] Phone Care Team Providers Care Unarmed Security Guard Name Role Phone Sahra Son MD Primary Care Provider + Encounter Details Date Type Department Care Team (Late st Contact Info) Description 09/28/2022 Documentation Only [facility] [place], [address] [place] [address] India Davalos [address] [place] [address] Social History Tobacco Use Types [...] on filedocumented in this encounter Care Teams Unarmed Security Guard Relationship Specialty Start Date End Date Sahra Son MD [address] [address] PCP - General Internal Medicine 10/28/22 documented as of this encounter
--- OUTSIDE RECORDS SUMMARY | 2025-02-20 10:04 | XMS_ITS | Encounter Summary ---
Author Organization [facility] [place], Address [address] [place] [address] Phone Care Team Providers Care Senior Treasury Consultant Name Role Phone Sahra Son MD Primary Care Provider + Encounter Details Date Type Department Care Team (Late st Contact Info) Description 08/25/2024 Documentation Only [facility] [place], [address] [place] [address] India Davalos [address] [place] [address] Social History Tobacco Use Types [...] filedocumented in this encounter Care Teams Senior Treasury Consultant Relationship Specialty Start Date End Date Sahra Son MD [address] [address] PCP - General Internal Medicine 10/28/22 documented as of this encounter
--- OUTSIDE RECORDS SUMMARY | 2025-02-20 10:04 | XMS_ITS | Encounter Summary ---
Author Organization [facility] [place], Address [address] [place] [address] Phone Care Team Providers Care Redeye Gunner Name Role Phone Sahra Son MD Primary Care Provider + Encounter Details Date Type Department Care Team (Late st Contact Info) Description 11/05/2023 Documentation Only [facility] [place], [address] [place] [address] India Davalos [address] [place] [address] Social History Tobacco Use Types [...] on filedocumented in this encounter Care Teams Redeye Gunner Relationship Specialty Start Date End Date Sahra Son MD [address] [address] PCP - General Internal Medicine 10/28/22 documented as of this encounter
--- OUTSIDE RECORDS SUMMARY | 2025-02-20 10:04 | XMS_ITS | Encounter Summary ---
Author Organization [facility] [place], Address [address] [place] [address] Phone Care Team Providers Care Film Waxer Name Role Phone Sahra Son MD Primary Care Provider + Encounter Details Date Type Department Care Team (Late st Contact Info) Description 09/28/2022 Documentation Only [facility] [place], [address] [place] [address] India Davalos [address] [place] [address] Social History Tobacco Use Types [...] filedocumented in this encounter Care Teams Film Waxer Relationship Specialty Start Date End Date Sahra Son MD [address] [address] PCP - General Internal Medicine 10/28/22 documented as of this encounter
--- OUTSIDE RECORDS SUMMARY | 2025-02-20 10:04 | XMS_ITS | Encounter Summary ---
Author Organization [facility] [place], Address [address] [place] [address] Phone Care Team Providers Care Clerical Aide Name Role Phone Sahra Son MD Primary Care Provider + Encounter Details Date Type Department Care Team (Late st Contact Info) Description 07/07/2024 Orders Only [facility] [place], [address] [place] [address] India Davalos [address] [place] [address] Anemia in chronic kidney disease; [...] (mild) documented in this encounter Care Teams Clerical Aide Relationship Specialty Start Date End Date Sahra Son MD [address] [address] PCP - General Internal Medicine 10/28/22 documented as of this encounter
--- OUTSIDE RECORDS SUMMARY | 2025-02-20 10:04 | XMS_ITS | Encounter Summary ---
Author Organization [facility] [place], Address [address] [place] [address] Phone Care Team Providers Care Agricultural Economist Name Role Phone Sahra Son MD Primary Care Provider + Encounter Details Date Type Department Care Team (Late st Contact Info) Description 08/28/2024 Documentation Only [facility], [address] [place] [address] India Davalos [address] [place] [address] Social History Tobacco Use [...] filedocumented in this encounter Care Teams Agricultural Economist Relationship Specialty Start Date End Date Sahra Son MD [address] [address] PCP - General Internal Medicine 10/28/22 documented as of this encounter
--- OUTSIDE RECORDS SUMMARY | 2025-02-20 10:04 | XMS_ITS | Encounter Summary ---
Author Organization [facility] [place], Address [address] [place] [address] Phone Care Team Providers Care Registered Radiation Therapist Name Role Phone Sahra Son MD Primary Care Provider + Encounter Details Date Type Department Care Team (Late st Contact Info) Description 06/17/2022 Documentation Only [facility] [place], [address] [place] [address] India Davalos [address] [place] [address] Social History Tobacco Use Types [...] filedocumented in this encounter Care Teams Registered Radiation Therapist Relationship Specialty Start Date End Date Sahra Son MD [address] [address] PCP - General Internal Medicine 10/28/22 documented as of this encounter
--- OUTSIDE RECORDS SUMMARY | 2025-02-20 10:04 | XMS_ITS | Encounter Summary ---
Author Organization [facility] [place], Address [address] [place] [address] Phone Care Team Providers Care Canvass Manager Name Role Phone Sahra Son MD Primary Care Provider + Encounter Details Date Type Department Care Team (Late st Contact Info) Description 12/23/2021 Documentation Only [facility] [place], [address] [facility] [place] [address] Juan Jose Li MD [address] [facility] [place] [address] Social History Tobacco Use Types [...] on filedocumented in this encounter Care Teams Canvass Manager Relationship Specialty Start Date End Date Sahra Son MD [address] [address] PCP - General Internal Medicine 10/28/22 documented as of this encounter
--- OUTSIDE RECORDS SUMMARY | 2025-02-20 10:04 | XMS_ITS | Encounter Summary ---
Author Organization [facility] [place], Address [address] [place] [address] Phone Care Team Providers Care Digester Name Role Phone Sahra Son MD Primary Care Provider + Encounter Details Date Type Department Care Team (Late st Contact Info) Description 06/22/2022 Documentation Only [facility] [place], [address] [place] [address] India Davalos [address] [place] [address] Social History Tobacco Use Types [...] on filedocumented in this encounter Care Teams Digester Relationship Specialty Start Date End Date Sahra Son MD [address] [address] PCP - General Internal Medicine 10/28/22 documented as of this encounter
--- OUTSIDE RECORDS SUMMARY | 2025-02-20 10:04 | XMS_ITS | Encounter Summary ---
Author Organization [facility], Address [address] [place] [address] Phone Care Team Providers Care Pipe Line Maintenance Supervisor Name Role Phone Sahra Son MD Primary Care Provider + Encounter Details Date Type Department Care Team (Late st Contact Info) Description 08/11/2022 Documentation Only [facility], [address] [place] [address] India Davalos [address] [place] [address] Social History Tobacco Use Types [...] on filedocumented in this encounter Care Teams Pipe Line Maintenance Supervisor Relationship Specialty Start Date End Date Sahra Son MD [address] [address] PCP - General Internal Medicine 10/28/22 documented as of this encounter
--- OUTSIDE RECORDS SUMMARY | 2025-02-20 10:04 | XMS_ITS | Encounter Summary ---
Author Organization [facility], Address [address] [place] [address] Phone Care Team Providers Care Big Data Solutions Architect Name Role Phone Sahra Son MD Primary Care Provider + Encounter Details Date Type Department Care Team (Late st Contact Info) Description 11/11/2023 Documentation Only [facility], [address] [place] [place] [address] India Davalos [address] [place] [address] Social History Tobacco Use Types [...] on filedocumented in this encounter Care Teams Big Data Solutions Architect Relationship Specialty Start Date End Date Sahra Son MD [address] [address] PCP - General Internal Medicine 10/28/22 documented as of this encounter
--- OUTSIDE RECORDS SUMMARY | 2025-02-20 10:04 | XMS_ITS | Encounter Summary ---
Author Organization [facility] Address [address] [place] [address] Phone Care Team Providers Care Operations Research Analyst Name Role Phone Sahra Son MD Primary Care Provider + Encounter Details Date Type Department Care Team (Late st Contact Info) Description 02/04/2024 Orders Only [facility], [address] [place] [address] India Davalos [address] [place] [address] Chronic kidney disease, stage 2 [...] Glucose 169(H) 70 - 99 mg/dL [facility] BUN 16 8 - 27 mg/dL [facility] Creatinine 1.00 0.57 - 1.00 mg/dL [facility] eGFR CKD-EPI CR 2020 63 >59 mL/min/1.7 3 [facility] BUN/Creatinine Ratio 16 12 - 28 [facility] Sodium 138 134 - 144 mmol/L [facility] Potassium 4.8 3.5 - 5.2 mmol/L [facility] Chloride 100 96 - 106 mmol/L [facility] Bicarbonate (CO2) 22 20 - 29 mmol/L [facility] Calcium 9.1 8.7 - 10.3 mg/dL [facility] Albumin 4.1 3.9 - 4.9 g/dL [facility] Phosphorus 4.2 3.0 - 4.3 mg/dL [facility] Blood specimen (specimen) Venous blood / Unknown 02/22/2024 8:29 AM EDT 02/22/2024 us Barry Reyes MD LAB BLOOD ORDERABLES Final Re sult [facility] [address] [place] [address] * Ferritin (02/22/2024 8:29 AM EDT) Pathologist [facility] Ferritin 47 15 - 150 ng/mL [facility] Blood specimen (specimen) Venous blood / Unknown 02/22/2024 8:29 AM EDT 02/22/2024 Barry Reyes MD LAB BLOOD ORDERABLES Final Re sult Performing Organization Address City/[facility]/ZIP Co de Phone Number [facility] [address] [place] [address] * (ABNORMAL) Iron Panel (Fe, TIBC, TSAT) (02/22/2024 8:29 AM EDT) Pathologist [facility] Iron 39 27 - 139 ug/dL [facility] TIBC 310 250 - 450 ug/dL [facility] UIBC 271 118 - 369 ug/dL [facility] Iron Saturation (TSat) 13(L) 15 - 55 % [facility] Blood specimen (specimen) Venous blood / Unknown 02/22/2024 8:29 AM EDT 02/22/2024 Barry Reyes MD LAB BLOOD ORDERABLES Final Re sult [facility] [address] [place] [address] * (ABNORMAL) CBC and Differential (02/22/2024 8:29 AM EDT) Pathologist [facility] WBC 5.9 3.4 - 10.8 x10E3/uL [facility] RBC 5.33(H) 3.77 - 5.28 x10E6/uL [facility] Hemoglobin 10.3(L) 11.1 - 15.9 g/dL [facility] Hematocrit 35.1 34.0 - 46.6 % [facility] MCV 66(L) 79 - 97 fL [facility] MCH 19.3(L) 26.6 - 33.0 pg [facility] MCHC 29.3(L) 31.5 - 35.7 g/dL [facility] RDW 19.3(H) 11.7 - 15.4 % [facility] Platelets 174 150 - 450 x10E3/uL [facility] Neutrophils Relative 71 Not Estab. % [facility] Lymphocytes Relative 21 Not Estab. % [facility] Monocytes 5 Not Estab. % [facility] Eosinophils Relative 1 Not Estab. % [facility] Basophils Relative 1 Not Estab. % [facility] Neutrophils Absolute 4.2 1.4 - 7.0 x10E3/uL [facility] Lymphocytes Absolute 1.3 0.7 - 3.1 x10E3/uL [facility] Monocytes Absolute 0.3 0.1 - 0.9 x10E3/uL [facility] Eosinophils Absolute 0.1 0.0 - 0.4 x10E3/uL [facility] Basophils Absolute 0.0 0.0 - 0.2 x10E3/uL [facility] Immature Granulocytes 1 Not Estab. % [facility] Immature Grans (Absolute) 0.0 0.0 - 0.1 x10E3/uL [facility] Blood specimen (specimen) Venous blood / Unknown 02/22/2024 8:29 AM EDT 02/22/2024 us Barry Reyes MD LAB BLOOD ORDERABLES Final Re sult [facility] [address] [place] [phone] documented in this encounter Visit Diagnoses Diagnosis Chronic kidney disease, stage 2 (mild) Anemia in chronic kidney disease Iron deficiency anemia, not otherwise specified documented in this encounter Care Teams Operations Research Analyst Relationship Specialty Start Date End Date Sahra Son MD [address] [place] [address] PCP - General Internal Medicine 10/28/22 documented as of this encounter
--- OUTSIDE RECORDS SUMMARY | 2025-02-20 10:04 | XMS_ITS | Encounter Summary ---
Author Organization [facility] Address [address] [place] [address] Phone Care Team Providers Care Licensed Audiologist Name Role Phone Sahra Son MD Primary Care Provider + Encounter Details Date Type Department Care Team (Late st Contact Info) Description 08/18/2024 Orders Only [facility], [address] [place] [address] India Davalos [address] [place] [address] Chronic kidney disease, stage 2 [...] specified documented in this encounter Care Teams Licensed Audiologist Relationship Specialty Start Date End Date Sahra Son MD [address] [address] PCP - General Internal Medicine 10/28/22 documented as of this encounter
--- OUTSIDE RECORDS SUMMARY | 2025-02-20 10:05 | XMS_ITS | Encounter Summary ---
Author Organization [facility], Address [address] [place] [address] Phone Care Team Providers Care Jewelry Mold Maker Name Role Phone Sahra Son MD Primary Care Provider + Encounter Details Date Type Department Care Team (Late st Contact Info) Description 06/25/2021 Documentation Only [facility], [address] [place] [address] India Davalos [address] [place] [address] Social History Tobacco Use Types [...] filedocumented in this encounter Care Teams Jewelry Mold Maker Relationship Specialty Start Date End Date Sahra Son MD [address] [address] PCP - General Internal Medicine 10/28/22 documented as of this encounter
--- OUTSIDE RECORDS SUMMARY | 2025-02-20 10:05 | XMS_ITS | Encounter Summary ---
Author Organization [facility], Address [address] [place] [address] Phone Care Team Providers Care Special Education Case Manager Name Role Phone Sahra Son MD Primary Care Provider + Encounter Details Date Type Department Care Team (Late st Contact Info) Description 01/29/2023 Documentation Only [facility], [address] [place] [address] India Davalos [address] [place] [address] Social History Tobacco Use Types [...] in this encounter Care Teams Special Education Case Manager Relationship Specialty Start Date End Date Sahra Son MD [address] [address] PCP - General Internal Medicine 10/28/22 documented as of this encounter
--- OUTSIDE RECORDS SUMMARY | 2025-02-20 10:05 | XMS_ITS | Encounter Summary ---
Author Organization [facility], Address [address] [place] [address] Phone Care Team Providers Care Tool And Die Maker Level Five Name Role Phone Sahra Son MD Primary Care Provider + Encounter Details Date Type Department Care Team (Late st Contact Info) Description 06/09/2023 Documentation Only [facility], [address] [place] [address] India Davalos [address] [place] [address] Social History Tobacco Use Types [...] filedocumented in this encounter Care Teams Tool And Die Maker Level Five Relationship Specialty Start Date End Date Sahra Son MD [address] [address] PCP - General Internal Medicine 10/28/22 documented as of this encounter
--- OUTSIDE RECORDS SUMMARY | 2025-02-20 10:05 | XMS_ITS | Encounter Summary ---
Author Organization [facility], Address [address] [place] [address] Phone Care Team Providers Care Sash Repairer Name Role Phone Sahra Son MD Primary Care Provider + Encounter Details Date Type Department Care Team (Late st Contact Info) Description 08/05/2023 Documentation Only [facility], [address] [place] [address] India Davalos [address] [place] [address] Social History Tobacco Use Types [...] filedocumented in this encounter Care Teams Sash Repairer Relationship Specialty Start Date End Date Sahra Son MD [address] [address] PCP - General Internal Medicine 10/28/22 documented as of this encounter
--- OUTSIDE RECORDS SUMMARY | 2025-02-20 10:05 | XMS_ITS | Encounter Summary ---
Author Organization [facility], Address [address] [place] [address] Phone Care Team Providers Care Special Services Director Name Role Phone Sahra Son MD Primary Care Provider + Encounter Details Date Type Department Care Team (Late st Contact Info) Description 07/16/2023 Documentation Only [facility], [address] [place] [address] India Davalos [address] [place] [address] Social History Tobacco Use Types [...] filedocumented in this encounter Care Teams Special Services Director Relationship Specialty Start Date End Date Sahra Son MD [address] [address] PCP - General Internal Medicine 10/28/22 documented as of this encounter
--- OUTSIDE RECORDS SUMMARY | 2025-02-20 10:05 | XMS_ITS | Encounter Summary ---
Author Organization [facility], Address [address] [place] [address] Phone Care Team Providers Care Plater Production Name Role Phone Sahra Son MD Primary Care Provider + Encounter Details Date Type Department Care Team (Late st Contact Info) Description 02/01/2023 Documentation Only [facility], [address] [place] [address] India Davalos [address] [place] [address] Social History Tobacco Use Types [...] on filedocumented in this encounter Care Teams Plater Production Relationship Specialty Start Date End Date Sahra Son MD [address] [address] PCP - General Internal Medicine 10/28/22 documented as of this encounter
--- OUTSIDE RECORDS SUMMARY | 2025-02-20 10:05 | XMS_ITS | Encounter Summary ---
Author Organization [facility], Address [address] [place] [address] Phone Care Team Providers Care Integration Project Manager Name Role Phone Sahra Son MD Primary Care Provider + Encounter Details Date Type Department Care Team (Late st Contact Info) Description 11/30/2023 Documentation Only [facility], [address] [place] [address] India Davalos [address] [place] [address] Social History Tobacco Use [...] filedocumented in this encounter Care Teams Integration Project Manager Relationship Specialty Start Date End Date Sahra Son MD [address] [address] PCP - General Internal Medicine 10/28/22 documented as of this encounter
--- OUTSIDE RECORDS SUMMARY | 2025-02-20 10:05 | XMS_ITS | Encounter Summary ---
Author Organization [facility], Address [address] [place] [address] Phone Care Team Providers Care Cat Wagon Operator Name Role Phone Sahra Son MD Primary Care Provider + Encounter Details Date Type Department Care Team (Late st Contact Info) Description 08/27/2021 Documentation Only [facility], [address] [place] [address] India Davalos [address] [place] [address] Social History Tobacco Use Types [...] on filedocumented in this encounter Care Teams Cat Wagon Operator Relationship Specialty Start Date End Date Sahra Son MD [address] [address] PCP - General Internal Medicine 10/28/22 documented as of this encounter
--- OUTSIDE RECORDS SUMMARY | 2025-02-20 10:05 | XMS_ITS | Encounter Summary ---
Author Organization [facility], Address [address] [place] [address] Phone Care Team Providers Care Home Paraprofessional Name Role Phone Sahra Son MD Primary Care Provider + Encounter Details Date Type Department Care Team (Late st Contact Info) Description 09/15/2024 Orders Only [facility], [address] [place] [address] India Davalos [address] [place] [address] Chronic kidney disease, stage 2 [...] documented in this encounter Care Teams Home Paraprofessional Relationship Specialty Start Date End Date Sahra Son MD [address] [address] PCP - General Internal Medicine 10/28/22 documented as of this encounter
--- OUTSIDE RECORDS SUMMARY | 2025-02-20 10:05 | XMS_ITS | Encounter Summary ---
Author Organization [facility], Address [address] [place] [address] Phone Care Team Providers Care Blower Mechanic Name Role Phone Sahra Son MD Primary Care Provider + Encounter Details Date Type Department Care Team (Late st Contact Info) Description 12/18/2024 Documentation Only [facility], [address] [place] [address] India Davalos [address] [place] [address] Social History Tobacco Use Types [...] on filedocumented in this encounter Care Teams Blower Mechanic Relationship Specialty Start Date End Date Sahra Son MD [address] [address] PCP - General Internal Medicine 10/28/22 documented as of this encounter
--- OUTSIDE RECORDS SUMMARY | 2025-02-20 10:05 | XMS_ITS | Encounter Summary ---
Author Organization [facility], Address [address] [place] [address] Phone Care Team Providers Care Expressive Art Therapist Name Role Phone Sahra Son MD Primary Care Provider + Encounter Details Date Type Department Care Team (Late st Contact Info) Description 03/11/2023 Documentation Only [facility], [address] [place] [address] India Davalos [address] [place] [address] Social History Tobacco Use Types [...] on filedocumented in this encounter Care Teams Expressive Art Therapist Relationship Specialty Start Date End Date Sahra Son MD [address] [address] PCP - General Internal Medicine 10/28/22 documented as of this encounter
--- OUTSIDE RECORDS SUMMARY | 2025-02-20 10:05 | XMS_ITS | Encounter Summary ---
Author Organization [facility], Address [address] [place] [address] Phone Care Team Providers Care Assistant Corporate Secretary Name Role Phone Sahra Son MD Primary Care Provider + Encounter Details Date Type Department Care Team (Late st Contact Info) Description 01/29/2023 Documentation Only [facility], [address] [place] [address] India Davalos [address] [place] [address] Social History Tobacco Use Types [...] filedocumented in this encounter Care Teams Assistant Corporate Secretary Relationship Specialty Start Date End Date Sahra Son MD [address] [address] PCP - General Internal Medicine 10/28/22 documented as of this encounter
--- OUTSIDE RECORDS SUMMARY | 2025-02-20 10:05 | XMS_ITS | Encounter Summary ---
Author Organization [facility], Address [address] [place] [address] Phone Care Team Providers Care Parts Coordinator Name Role Phone Sahra Son MD Primary Care Provider + Encounter Details Date Type Department Care Team (Late st Contact Info) Description 03/11/2023 Documentation Only [facility], [address] [place] [address] India Davalos [address] [place] [address] Social History Tobacco Use Types [...] filedocumented in this encounter Care Teams Parts Coordinator Relationship Specialty Start Date End Date Sahra Son MD [address] [address] PCP - General Internal Medicine 10/28/22 documented as of this encounter
--- OUTSIDE RECORDS SUMMARY | 2025-02-20 10:05 | XMS_ITS | Encounter Summary ---
Author Organization [facility], Address [address] [place] [address] Phone Care Team Providers Care Drip Molder Name Role Phone Sahra Son MD Primary Care Provider + Encounter Details Date Type Department Care Team (Late st Contact Info) Description 10/07/2021 Documentation Only [facility], [address] [place] [address] India Davalos [address] [place] [address] Social History Tobacco Use Types [...] on filedocumented in this encounter Care Teams Drip Molder Relationship Specialty Start Date End Date Sahra Son MD [address] [address] PCP - General Internal Medicine 10/28/22 documented as of this encounter
--- OUTSIDE RECORDS SUMMARY | 2025-02-20 10:05 | XMS_ITS | Encounter Summary ---
Author Organization [facility], Address [address] [place] [address] Phone Care Team Providers Care Concrete Batching Plant Operator Name Role Phone Sahra Son MD Primary Care Provider + Encounter Details Date Type Department Care Team (Late st Contact Info) Description 08/22/2021 Documentation Only [facility], [address] [place] [address] India Davalos [address] [place] [address] Social History Tobacco Use Types [...] filedocumented in this encounter Care Teams Concrete Batching Plant Operator Relationship Specialty Start Date End Date Sahra Son MD [address] [address] PCP - General Internal Medicine 10/28/22 documented as of this encounter
--- OUTSIDE RECORDS SUMMARY | 2025-02-20 10:05 | XMS_ITS | Clinical Summary ---
Author Organization [facility] Address [address] [place] [address] Phone Care Team Providers Care Petrology Teacher Name Role Phone Sahra Son MD Primary Care Provider + Surgical History Surgery Date Site/Laterality Comments OTHER SURGICAL HISTORY 1975 PROCEDURE: CO TX ECTOPIC ABDOMINAL/VAGINAL APPR PARTIAL HYSTERECTOMY PROCEDURE: CO SUPRACERVICAL ABDL HYSTER W/WO RMVL TUBE OVARY CHOLECYSTECTOMY 1982 PROCEDURE: HISTORICAL CHOLECYSTECTOMY CARPAL TUNNEL RELEASE 11/21/2014 Left PROCEDURE: HISTORICAL CARPAL TUNNEL REL BOWEL RESECTION 03/2004 PROCEDURE: HISTORICAL BOWEL RESECTION; COMMENT: bowel obstruction Medical History Medical History Date Comments Diverticulosis DX:Diverticulosi s CHF (congestive heart failur e) ([facility] V24, [facility] V28) DX:CHF (congestive heart fa ilure) ([facility]) COPD (chronic obstructive pu lmonary disease) ([facility], [facility] V28) DX:COPD (chronic o bstructive pulmonary disease) ([facility]) Osteoporosis DX:Osteoporosis Fibromyalgia DX:Fibromyalgia Myelofibrosis ([facility] V24, [facility] V28) DX:Myelofibrosis ([facility]); COMM ENT: diagnosed 8 years ago, follows with DR layne Meningioma ([facility] V24, [facility] V28) DX:Meningioma ([facility]) Asthma DX:Asthma Gout DX:Gout Seizures ([facility] V24, [facility] V28) DX:Seizures ([facility]) Lupus DX:Lupus Depression DX:Depression; C OMMENT: follows at [facility] net at [facility] Hypercoagulable state ([facility] V24) DX:Hypercoagulable state ([facility]); COMMENT: on coumadin Neurogenic bladder DX:Neurogenic bladder; COMMENT: flowers dependent Supplemental oxygen dependent DX :Supplemental oxygen dependent Lung nodule 03/22/2017 DX:Lung nodule ALESSANDRA (obstructive sleep apnea) 03/22/2017 DX :ALESSANDRA (obstructive sleep apnea) GERD (gastroesophageal reflux disease) 03/22/2017 DX:GERD (gastroesophageal reflux disease) Anxiety 03/22/2017 DX:Anxiety Dementia ([facility], [facility] V28) 03/22/2017 DX:Dementia (HCC) Schizophrenia ([facility], [facility] V28) 03/22/2017 DX:Schizophrenia ([facility]) Glaucoma 03/22/2017 DX:Glaucoma History of stroke DX:History of stroke History of deep vein thrombosis DX:History of deep vein thrombosis Coronary artery disease DX:Coron christine artery disease; COMMENT: Old MS Diabetes mellitus type 2 wit h neurological manifestations ([facility], [facility] V28) DX:Diabetes mellitus type 2 with neurological manifestations ([facility]) Leukemia ([facility], [facility] V28) 09/02/2017 DX:Leukemia ([facility]) MDS (myelodysplastic syndrom e) ([facility], [facility] V28) 09/02/2017 DX:MDS (myelodysplastic syn drome) ([facility]) Hyperthyroidism 09/02/2017 DX:Hyperthyroidi sm History [...] Care Team (Late st Contact Info) Description 07/25/2025 9:50 AM EDT Consult [facility] [address] [facility] [address] [place] [address] Deloris Vickers PA [address] [facility] [address] [place] [address] Health Maintenance Due Date Last Done Comments Breast Cancer Screening 1960 Colorectal Cancer Screening: Colonoscopy 1960 Diabetes: Annual GFR (Glomer ular Filtration [...] series) 2019 Cholesterol Screening (Lipid Panel) 04/19/2022 Hepatitis C Screening 04/19/2022 Osteoporosis Screening [...] patient's age to complete this topic Insurance [facility] Member Subscriber Plan / Payer (Ef fective 2024-Present) Name:Jennifer Schulz Relation to Subscriber:Self Name:Jennifer Schulz Payer ID:[id number] Group ID:[id number] Type:Not on file Address: [place] [address] [address] [address] Care Teams Petrology Teacher Relationship Specialty Start Date End Date Sahra Son MD [address] [place] [id number] PCP - General Internal Medicine 11/15/24
--- OUTSIDE RECORDS SUMMARY | 2025-02-20 10:05 | XMS_ITS | Encounter Summary ---
Author Organization [facility], Address [address] [place] [address] Phone Care Team Providers Care Joss House Keeper Name Role Phone Sahra Son MD Primary Care Provider + Encounter Details Date Type Department Care Team (Late st Contact Info) Description 07/03/2021 Documentation Only [facility], [address] [place] [address] Juan Jose Li MD [address] [place] [address] Social History Tobacco Use Types [...] on filedocumented in this encounter Care Teams Joss House Keeper Relationship Specialty Start Date End Date Sahra Son MD [address] [address] PCP - General Internal Medicine 10/28/22 documented as of this encounter
--- OUTSIDE RECORDS SUMMARY | 2025-02-20 10:05 | XMS_ITS | Encounter Summary ---
Author Organization [facility], Address [address] [place] [address] Phone Care Team Providers Care Inspector Conveyor Line Name Role Phone Sahra Son MD Primary Care Provider + Encounter Details Date Type Department Care Team (Late st Contact Info) Description 03/11/2023 Documentation Only [facility], [address] [place] [address] India Davalos [address] [place] [address] Social History Tobacco Use [...] filedocumented in this encounter Care Teams Inspector Conveyor Line Relationship Specialty Start Date End Date Sahra Son MD [address] [address] PCP - General Internal Medicine 10/28/22 documented as of this encounter
--- OUTSIDE RECORDS SUMMARY | 2025-02-20 10:05 | XMS_ITS | Encounter Summary ---
Author Organization [facility] Address [address] [place] [address] Phone Care Team Providers Care Reimbursement Rep Name Role Phone Sahra Son MD Primary Care Provider + Encounter Details Date Type Department Care Team (Late st Contact Info) Description 05/17/2023 Orders Only [facility], [address] [place] [id number] Arlene Alston PA [address] [place] [address] Chronic kidney disease, stage 2 [...] [employer] Iron 49 (30-160) MCG/DL [facility] UIBC 246 (110-370) MCG/DL [facility] TIBC 295 (140-530) MCG/DL [facility] Iron Saturation (TSat) 17(L) (20-55) % [facility] Comment: Testing performed or reported by [facility], a Service of [facility], [address] [place] [address] Luis A Bailey MD, Track Broom Operator [facility]# [id number] Blood specimen (specimen) Venous blood / Unknown 06/08/2023 8:36 AM EST 06/08/2023 8:39 AM EST Arlene CARTER LAB BLOOD ORDERABLES Final Re sult [facility] * Vitamin D 25 hydroxy (06/08/2023 8:36 AM EST) Vitamin D, 25-Hydroxy 24.8 (20-50) NG/ML [facility] Comment: Testing performed or reported by [facility], a Service of [facility], [address] [place] [id number] Luis A Bailey MD, Track Broom Operator [facility]# [id number] Blood specimen (specimen) Venous blood / Unknown 06/08/2023 8:36 AM EST 06/08/2023 8:39 AM EST Arlene CARTER LAB BLOOD ORDERABLES Final Re sult [facility] * (ABNORMAL) Renal function panel (06/08/2023 8:36 AM EST) Glucose 166(H) (70-99) MG/DL [facility] BUN 19 (8-23) MG/DL [facility] Creatinine 1.0 (0.5-1.0) MG/DL [facility] Sodium 138 (133-145) MMOL/L [facility] Potassium 4.9 (3.6-5.2) MMOL/L [facility] Chloride 101 (98-107) MMOL/L [facility] Bicarbonate (CO2) 27 (22-29) MMOL/L [facility] Anion Gap 10 (4-17) [facility] Albumin 4.2 (3.4-4.8) GM/DL [facility] Calcium 9.1 (8.6-10.5) MG/DL [facility] Phosphorus, Serum 3.4 (2.5-4.5) MG/DL [facility] Est GFR Non 66 ML/MIN/1.7 3 M2 [facility] Comment: Creatinine based estimated glomerular filtration (eGFR) in adults is calculated using the National Kidney Foundation recommended 2020 CKD-EPI equation. Estimates GFR from serum creatinine, age and sex. Testing performed or reported by [facility], a Service of [facility], [address] [place] [id number] Luis A Bailey MD, Track Broom Operator CLIA# [id number] Blood specimen (specimen) Venous blood / Unknown 06/08/2023 8:36 AM EST 06/08/2023 8:39 AM EST Arlene CARTER LAB BLOOD ORDERABLES Final Re sult Performing Organization Address [facility] de Phone Number [facility] * Magnesium (06/08/2023 8:36 AM EST) Magnesium 2.1 (1.6-2.3) mg/dL [facility] Comment: Testing performed or reported by [facility], a Service of [facility], [address] [place] [address] Luis A Bailey MD, Track Broom Operator CLIA# [id number] Blood specimen (specimen) Venous blood / Unknown 06/08/2023 8:36 AM EST 06/08/2023 8:39 AM EST Arlene CARTER LAB BLOOD ORDERABLES Final Re sult Performing Organization Address [facility] de Phone Number [facility] * (ABNORMAL) Hemoglobin A1c (06/08/2023 8:36 AM EST) Hemoglobin A1C 7.2(H) (4.0-5.6) % [facility] Comment: MONITORING: In known diabetic patients, hemoglobin A1c targets should be discussed with health care provider. DIAGNOSTIC USE: The [place] Diabetes [employer] (ADA) and the World Health [...] Supplement 1 Testing performed or reported by [facility], a Service of [facility], [address] [place] [id number] Luis A Bailey MD, Track Broom Operator JESSICA# [id number] Blood specimen (specimen) Venous blood / Unknown 06/08/2023 8:36 AM EST 06/08/2023 8:38 AM EST us Arlene CARTER LAB BLOOD ORDERABLES Final Re sult [facility] * (ABNORMAL) CBC and differential (06/08/2023 8:36 AM EST) White Blood Cells 5.2 (4.0-11.0 ) K/MM3 [facility] RBC 5.08 (4.20-5.4 0) M/MM3 [facility] Hgb 10.1(L) (11.7-15. 5) GM/DL [facility] Hematocrit 32.9(L) (35.7-45. 8) % [facility] MCV 64.8(L) (80.0-100 .0) FL [facility] MCH 19.9(L) (27.0-34. 0) PG [facility] MCHC 30.7(L) (33.0-37. 0) g/dL [facility] Platelets 191 (150-460) K/MM3 [facility] RDW-SD 40.3 (<47.0) FL [facility] MPV NOT MEASURED (9.4-12.4 ) FL [facility] nRBC Count 0.0 #/100 WBC'S [facility] NRBC Absolute 0.0 K/MM3 [facility] Neutrophils Abs Auto 3.5 (1.3-7.0) K/MM3 [facility] Lymphocytes Relative 1.3 (0.8-3.1) K/MM3 [facility] Monocytes 0.3(L) (0.4-0.9) K/MM3 [facility] Eosinophils Relative 0.1 (0.0-0.4) K/MM3 [facility] Basophil ABS 0.0 (0.0-0.1) K/MM3 [facility] Granulocytes Absolute 0.0 K/MM3 [facility] Neutrophils % Auto 67.3 (44-76) % [facility] Lymphs 24.0 (15-43) % [facility] Monocytes Absolute 5.8 (4.5-10.5 ) % [facility] Eosinophils 1.7 (0-6) % [facility] Basophils Relative 0.8 (0-2) % [facility] Immature Granulocytes 0.4 % [facility] Comment: Testing performed or reported by [facility], a Service of [facility], [address] [place] [address] Luis A Bailey MD, Track Broom Operator [facility]# [id number] Blood specimen (specimen) Venous blood / Unknown 06/08/2023 8:36 AM EST 06/08/2023 8:38 AM EST Arlene CARTER LAB BLOOD ORDERABLES Final Re sult [facility] documented in this encounter Visit Diagnoses Diagnosis Chronic kidney disease, stage 2 (mild) Essential (primary) hypertension Anemia in chronic kidney disease Antiphospholipid syndrome (HCC) Type 2 diabetes mellitus, not otherwise specified (HCC) Bleeding hemorrhoids documented in this encounter Care Teams Reimbursement Rep Relationship Specialty Start Date End Date Sahra Son MD [address] [place] [address] PCP - General Internal Medicine 10/28/22 documented as of this encounter
--- OUTSIDE RECORDS SUMMARY | 2025-02-20 10:05 | XMS_ITS | Encounter Summary ---
Author Organization [facility], Address [address] [place] [address] Phone Care Team Providers Care Chipper Operator Name Role Phone Sahra Son MD Primary Care Provider + Encounter Details Date Type Department Care Team (Late st Contact Info) Description 11/19/2023 Documentation Only [facility], [address] [place] [address] India Davalos [address] [place] [address] Social History Tobacco Use Types [...] on filedocumented in this encounter Care Teams Chipper Operator Relationship Specialty Start Date End Date Sahra Son MD [address] [address] PCP - General Internal Medicine 10/28/22 documented as of this encounter
--- OUTSIDE RECORDS SUMMARY | 2025-02-20 10:05 | XMS_ITS | Encounter Summary ---
Author Organization [facility], Address [address] [place] [address] Phone Care Team Providers Care Map Drafter Name Role Phone Sahra Son MD Primary Care Provider + Encounter Details Date Type Department Care Team (Late st Contact Info) Description 07/16/2023 Documentation Only [facility], [address] [place] [address] India Davalos [address] [place], [place] [...] on filedocumented in this encounter Care Teams Map Drafter Relationship Specialty Start Date End Date Sahra Son MD [address] [address] PCP - General Internal Medicine 10/28/22 documented as of this encounter
--- OUTSIDE RECORDS SUMMARY | 2025-02-20 10:05 | XMS_ITS | Encounter Summary ---
Author Organization [facility], Address [address] [place] [address] Phone Care Team Providers Care Nut Feeder Name Role Phone Sahra Son MD Primary Care Provider + Encounter Details Date Type Department Care Team (Late st Contact Info) Description 08/09/2023 Documentation Only [facility], [address] [place] [address] India Davalos [address] [place] [address] Social History Tobacco Use Types [...] on filedocumented in this encounter Care Teams Nut Feeder Relationship Specialty Start Date End Date Sahra Son MD [address] [address] PCP - General Internal Medicine 10/28/22 documented as of this encounter
--- OUTSIDE RECORDS SUMMARY | 2025-02-20 10:05 | XMS_ITS | Encounter Summary ---
Author Organization [facility], Address [address] [place] [address] Phone Care Team Providers Care Plant Tour Guide Name Role Phone Sahra Son MD Primary Care Provider + Encounter Details Date Type Department Care Team (Late st Contact Info) Description 12/24/2022 Documentation Only [facility], [address] [place] [address] Carol Whelan [address] [place] [address] Social History Tobacco Use Types [...] filedocumented in this encounter Care Teams Plant Tour Guide Relationship Specialty Start Date End Date Sahra Son MD [address] [address] PCP - General Internal Medicine 10/28/22 documented as of this encounter
--- OUTSIDE RECORDS SUMMARY | 2025-02-20 10:06 | XMS_ITS | Encounter Summary ---
Author Organization [facility], Address [address] [place] [address] Phone Care Team Providers Care Damage Appraiser Name Role Phone Sahra Son MD Primary Care Provider + Encounter Details Date Type Department Care Team (Late st Contact Info) Description 06/23/2024 Orders Only [facility], [address] [place] [address] India Davalos [address] [place] [address] Chronic kidney disease, stage 2 [...] specified documented in this encounter Care Teams Damage Appraiser Relationship Specialty Start Date End Date Sahra Son MD [address] [address] PCP - General Internal Medicine 10/28/22 documented as of this encounter
--- OUTSIDE RECORDS SUMMARY | 2025-02-20 10:06 | XMS_ITS | Encounter Summary ---
Author Organization [facility] Address [address] [place] [address] Phone Care Team Providers Care Operating Systems Programmer Name Role Phone Sahra Son MD Primary Care Provider + Encounter Details Date Type Department Care Team (Late st Contact Info) Description 11/24/2024 Orders Only [facility], [address] [place] [address] India Davalos [address] [place] [address] Anemia in chronic kidney disease; [...] documented in this encounter Care Teams Operating Systems Programmer Relationship Specialty Start Date End Date Sahra Son MD [address] [address] PCP - General Internal Medicine 10/28/22 documented as of this encounter
--- OUTSIDE RECORDS SUMMARY | 2025-02-20 10:06 | XMS_ITS | Encounter Summary ---
Author Organization [facility], Address [address] [place] [address] Phone Care Team Providers Care Data Warehouse Analyst Name Role Phone Sahra Son MD Primary Care Provider + Encounter Details Date Type Department Care Team (Late st Contact Info) Description 04/05/2024 Documentation Only [facility], [address] [place] [address] India Davalos [address] [place] [address] Social History Tobacco Use Types [...] on filedocumented in this encounter Care Teams Data Warehouse Analyst Relationship Specialty Start Date End Date Sahra Son MD [address] [address] PCP - General Internal Medicine 10/28/22 documented as of this encounter
--- OUTSIDE RECORDS SUMMARY | 2025-02-20 10:06 | XMS_ITS | Clinical Summary ---
Author Organization [facility] Address [address] [place] [address] Care Team Providers Care Distillation Operator Helper Name Role Phone Geovani Natalie Carmelo ESPARZA Primary Care Provider [phone] Allergies Active Allergy Reactions Criticality Noted Date [...] 1 10/04/2016 Active ergocalciferol (VITAMIN D2) capsule 61187 units TK ONE C PO TWICE A [...] times a day. 0 04/27/2022 Active pancrelipase, Gcl-Xttu-Vame, (Creon) [address] units CPEP TK ONE C PO TID [...] age to complete this topic Care Teams Distillation Operator Helper Relationship Specialty Start Date End Date Natalie Olivo APRN [address] [place] [address] PCP - General Scalping Machine Operator 04/30/22
--- OUTSIDE RECORDS SUMMARY | 2025-02-20 10:06 | XMS_ITS | Encounter Summary ---
Author Organization [facility], Address [address] [place] [address] Phone Care Team Providers Care Quill Worker Name Role Phone Sahra Son MD Primary Care Provider + Encounter Details Date Type Department Care Team (Late st Contact Info) Description 10/30/2022 Documentation Only [facility], [address] [place] [address] India Davalos [address] [place] [address] Social History Tobacco Use Types [...] filedocumented in this encounter Care Teams Quill Worker Relationship Specialty Start Date End Date Sahra Son MD [address] [address] PCP - General Internal Medicine 10/28/22 documented as of this encounter
--- OUTSIDE RECORDS SUMMARY | 2025-02-20 10:06 | XMS_ITS | Encounter Summary ---
Author Organization [facility] Address [address] [place] [address] Phone Care Team Providers Care Well Puller Head Name Role Phone Sahra Son MD Primary Care Provider + Encounter Details Date Type Department Care Team (Late st Contact Info) Description 05/26/2024 Orders Only [facility] [place], [address] [place] [address] India Davalos [address] [place] [address] Chronic kidney disease, stage 2 [...] Glucose 168(H) 70 - 99 mg/dL [facility] BUN 17 8 - 27 mg/dL [facility] Creatinine 1.09(H) 0.57 - 1.00 mg/dL [facility] eGFR CKD-EPI CR 2020 57(L) >59 mL/min/1.7 3 [facility] BUN/Creatinine Ratio 16 12 - 28 [facility] Sodium 137 134 - 144 mmol/L [facility] Potassium 4.8 3.5 - 5.2 mmol/L [facility] Chloride 99 96 - 106 mmol/L [facility] Bicarbonate (CO2) 23 20 - 29 mmol/L [facility] Calcium 9.0 8.7 - 10.3 mg/dL [facility] Albumin 4.2 3.9 - 4.9 g/dL [facility] Phosphorus 4.4(H) 3.0 - 4.3 mg/dL [facility] Blood specimen (specimen) Venous blood / Unknown 06/07/2024 11:53 AM EST 06/07/2024 us Barry Reyes MD LAB BLOOD ORDERABLES Final Re sult [facility] [address] [place] [address] * Ferritin (06/07/2024 11:53 AM EST) Pathologist [facility] Ferritin 102 15 - 150 ng/mL [facility] Blood specimen (specimen) Venous blood / Unknown 06/07/2024 11:53 AM EST 06/07/2024 Barry Reyes MD LAB BLOOD ORDERABLES Final Re sult [facility] [address] [place] [address] * Iron Panel (Fe, TIBC, TSAT) (06/07/2024 11:53 AM EST) Pathologist [facility] TIBC 262 250 - 450 ug/dL [facility] UIBC 205 118 - 369 ug/dL [facility] Iron 57 27 - 139 ug/dL [facility] Iron Saturation (TSat) 22 15 - 55 % [facility] Blood specimen (specimen) Venous blood / Unknown 06/07/2024 11:53 AM EST 06/07/2024 Barry Reyes MD LAB BLOOD ORDERABLES Final Re sult [facility] [address] [place] [address] * (ABNORMAL) CBC and Differential (06/07/2024 11:53 AM EST) Pathologist [facility] WBC 5.5 3.4 - 10.8 x10E3/uL [facility] RBC 5.76(H) 3.77 - 5.28 x10E6/uL [facility] Hemoglobin 11.1 11.1 - 15.9 g/dL [facility] Hematocrit 38.4 34.0 - 46.6 % [facility] MCV 67(L) 79 - 97 fL [facility] MCH 19.3(L) 26.6 - 33.0 pg [facility] MCHC 28.9(L) 31.5 - 35.7 g/dL [facility] RDW 18.8(H) 11.7 - 15.4 % [facility] Platelets 162 150 - 450 x10E3/uL [facility] Neutrophils Relative 59 Not Estab. % [facility] Lymphocytes Relative 31 Not Estab. % [facility] Monocytes 6 Not Estab. % [facility] Eosinophils Relative 2 Not Estab. % [facility] Basophils Relative 1 Not Estab. % [facility] Neutrophils Absolute 3.3 1.4 - 7.0 x10E3/uL [facility] Lymphocytes Absolute 1.7 0.7 - 3.1 x10E3/uL [facility] Monocytes Absolute 0.3 0.1 - 0.9 x10E3/uL [facility] Eosinophils Absolute 0.1 0.0 - 0.4 x10E3/uL [facility] Basophils Absolute 0.0 0.0 - 0.2 x10E3/uL [facility] Immature Granulocytes 1 Not Estab. % [facility] Immature Grans (Absolute) 0.0 0.0 - 0.1 x10E3/uL [facility] Blood specimen (specimen) Venous blood / Unknown 06/07/2024 11:53 AM EST 06/07/2024 us Barry Reyes MD LAB BLOOD ORDERABLES Final Re sult [facility] [address] [place] [address] documented in this encounter Visit Diagnoses Diagnosis Chronic kidney disease, stage 2 (mild) Anemia in chronic kidney disease Iron deficiency anemia, not otherwise specified documented in this encounter Care Teams Well Puller Head Relationship Specialty Start Date End Date Sahra Son MD [address] [place] [address] PCP - General Internal Medicine 10/28/22 documented as of this encounter
--- OUTSIDE RECORDS SUMMARY | 2025-02-20 10:06 | XMS_ITS | Encounter Summary ---
Author Organization [facility] [place], Address [address] [place] [address] Phone Care Team Providers Care Progressive Care Unit Registered Nurse Name Role Phone Sahra Son MD Primary Care Provider + Encounter Details Date Type Department Care Team (Late st Contact Info) Description 10/26/2022 Documentation Only [facility], [address] [place] [address] India Davalos [address] [place] [address] Social History Tobacco Use Types [...] on filedocumented in this encounter Care Teams Progressive Care Unit Registered Nurse Relationship Specialty Start Date End Date Sahra Son MD [address] [address] PCP - General Internal Medicine 10/28/22 documented as of this encounter
--- OUTSIDE RECORDS SUMMARY | 2025-02-20 10:06 | XMS_ITS | Clinical Summary ---
Author Organization [facility], Address [address] [place] [address] [place] [address] Phone Care Team Providers Care Supervisor Roving Department Name Role Phone Sahra Son MD Primary Care Provider + Allergies Active Allergy Reactions Criticality Noted Date Comments Codeine 12/26/2012 Ferumoxytol Shortness of breath,Itching,Other (see comments) High 02/27/2022 Bones hurt Iodinated Contrast Media 07/06/2022 Penicillins 12/26/2012 Other Shellfish Allergy 12/26/2012 Tramadol 07/06/2022 Trazodone 03/08/2018 Iron Sucrose 02/29/2024 Coughing fit infusion stopped at [facility] Medications Cymbalta [address] capsule TK 2 CS PO QAM 12/28/19 20 Active LORazepam (ATIVAN) 1 MG tablet TK 1 T PO BID 12/24/19 20 Active meclizine (ANTIVERT) 25 MG tablet TK 1 T PO TID PRN 12/24/19 20 Active montelukast (SINGULAIR) 10 MG tablet TK 1 T PO QD IN THE DARCY 11/19/19 20 Active Creon 39469-06059 units capsule TK ONE C PO TID [...] Encounters Date Type Department Care Team Description 02/16/2025 Telephone [facility] [place] [address] [place] [address] Stephanie Azul, RN 02/16/2025 Orders Only [facility] [address] [place] [address] [place], [place] Anemia in chronic kidney disease; Other iron deficiency anemia; Chronic kidney disease, stage 2 (mild) 02/09/2025 Telephone [facility] [address] [place] [address] Stephanie Azul, LAURITA 01/19/2025 Orders Only [facility] [address] [place] [address] [place], [place] Anemia in chronic kidney disease; Other iron deficiency anemia; Chronic kidney disease, stage 2 (mild) 01/10/2025 Telephone [facility] [address] [place] [address] Stephanie Azul, LAURITA 12/22/2024 Orders Only [facility] [address] [place] [address] [place], [place] Anemia in chronic kidney disease; Other iron deficiency anemia; Chronic kidney disease, stage 2 (mild) 12/18/2024 Documentation Only [facility] [address] [place] [address] [place], [place] 11/24/2024 Orders Only [facility] [address] [place] [address] [place] Davalos Anemia in chronic kidney disease; [...] Associated Diagnosis Comments RENAL FUNCTION PANEL Routine 02/19/2025 9:33 AM EDT Anemia in chronic kidney disease Other iron deficiency anemia Chronic kidney disease, stage 2 (mild) FERRITIN Routine 02/19/2025 9:33 AM EDT Anemia in chronic kidney disease Other iron deficiency anemia Chronic kidney disease, stage 2 (mild) IRON PANEL (FE, TIBC, TSAT) Routine 02/19/2025 9:33 AM EDT Anemia in chronic kidney disease Other iron deficiency anemia Chronic kidney disease, stage 2 (mild) CBC AND DIFFERENTIAL Routine 02/19/2025 9:33 AM EDT Anemia in chronic kidney disease [...] Results * Iron Panel (Fe, TIBC, TSAT) (02/19/2025 9:33 AM EDT) Pathologist [facility] TIBC 263 250 - 450 ug/dL [facility] UIBC 219 118 - 369 ug/dL [facility] Iron 44 27 - 139 ug/dL [facility] Iron Saturation (TSat) 17 15 - 55 % [facility] Blood specimen (specimen) Venous blood / Unknown 02/19/2025 9:33 AM EDT 02/19/2025 us Barry Reyes MD LAB BLOOD ORDERABLES Final Re sult [facility] [address] [place] [address] * (ABNORMAL) CBC and Differential (02/19/2025 9:33 AM EDT) Pathologist [facility] WBC 8.3 3.4 - 10.8 x10E3/uL [facility] RBC 5.45(H) 3.77 - 5.28 x10E6/uL [facility] Hemoglobin 11.2 11.1 - 15.9 g/dL [facility] Hematocrit 38.3 34.0 - 46.6 % [facility] MCV 70(L) 79 - 97 fL [facility] MCH 20.6(L) 26.6 - 33.0 pg [facility] MCHC 29.2(L) 31.5 - 35.7 g/dL [facility] RDW 18.0(H) 11.7 - 15.4 % [facility] Platelets 217 150 - 450 x10E3/uL [facility] Neutrophils Relative 73 Not Estab. % [facility] Lymphocytes Relative 18 Not Estab. % [facility] Monocytes 5 Not Estab. % [facility] Eosinophils Relative 2 Not Estab. % [facility] Basophils Relative 1 Not Estab. % [facility] Neutrophils Absolute 6.2 1.4 - 7.0 x10E3/uL [facility] Lymphocytes Absolute 1.5 0.7 - 3.1 x10E3/uL [facility] Monocytes Absolute 0.4 0.1 - 0.9 x10E3/uL [facility] Eosinophils Absolute 0.1 0.0 - 0.4 x10E3/uL [facility] Basophils Absolute 0.1 0.0 - 0.2 x10E3/uL [facility] Immature Granulocytes 0 Not Estab. % [facility] Immature Grans (Absolute) 0.0 0.0 - 0.1 x10E3/uL [facility] Blood specimen (specimen) Venous blood / Unknown 02/19/2025 9:33 AM EDT 02/19/2025 Barry Reyes MD LAB BLOOD ORDERABLES Final Re sult [facility] [address] [place] [address] * (ABNORMAL) Ferritin (02/19/2025 9:33 AM EDT) Ferritin 156(H) 15 - 150 ng/mL [facility] Blood specimen (specimen) Venous blood / Unknown 02/19/2025 9:33 AM EDT 02/19/2025 us Barry Reyes MD LAB BLOOD ORDERABLES Final Re sult [facility] [address] [place] [address] * (ABNORMAL) Renal Function Panel (02/19/2025 9:33 AM EDT) Glucose 318(H) 70 - 99 mg/dL [facility] BUN 14 8 - 27 mg/dL [facility] Creatinine 1.01(H) 0.57 - 1.00 mg/dL [facility] eGFR CKD-EPI CR 2020 62 >59 mL/min/1.7 3 [facility] BUN/Creatinine Ratio 14 12 - 28 [facility] Sodium 137 134 - 144 mmol/L [facility] Potassium 4.8 3.5 - 5.2 mmol/L [facility] Chloride 99 96 - 106 mmol/L [facility] Bicarbonate (CO2) 22 20 - 29 mmol/L [facility] Calcium 9.3 8.7 - 10.3 mg/dL [facility] Albumin 4.2 3.9 - 4.9 g/dL [facility] Phosphorus 3.9 3.0 - 4.3 mg/dL [facility] Blood specimen (specimen) Venous blood / Unknown 02/19/2025 9:33 AM EDT 02/19/2025 Barry Reyes MD LAB BLOOD ORDERABLES Final Re sult [facility] [address] [place] [address] * (ABNORMAL) Hemoglobin A1c (06/08/2023 8:36 AM EST) Hemoglobin A1C 7.2(H) (4.0-5.6) % [facility] Comment: MONITORING: In known diabetic patients, hemoglobin A1c targets should be discussed with health care provider. DIAGNOSTIC USE: The [place] Diabetes Association (ADA) and the World Health [...] [facility] [place] [address] Luis A Bailey MD, Electrification Adviser [facility]# [id number] Blood specimen (specimen) Venous blood / Unknown 06/08/2023 8:36 AM EST 06/08/2023 8:38 AM EST us Arlene CARTER LAB BLOOD ORDERABLES Final Re sult [facility] from Last 3 Months or Most Recently Relevant to Health Maintenance Insurance [id number] [employer] [employer] Dual SNP ([id number]) Care Teams Supervisor Roving Department Relationship Specialty Start Date End Date Sahra Son MD [address] [place], [place] [phone] PCP - General Internal Medicine 10/28/22
--- OUTSIDE RECORDS SUMMARY | 2025-02-20 10:06 | XMS_ITS | Encounter Summary ---
Author Organization [facility] Address [address] [place] [address] Phone Care Team Providers Care Strip Deburrer Name Role Phone Sahra Son MD Primary Care Provider + Encounter Details Date Type Department Care Team (Late st Contact Info) Description 10/27/2024 Orders Only [facility] [place], [address] [place] [address] [place] Davalos [address] [place] [address] Anemia in chronic kidney disease; [...] Glucose 238(H) 70 - 99 mg/dL [facility] BUN 15 8 - 27 mg/dL [facility] Creatinine 0.96 0.57 - 1.00 mg/dL [facility] eGFR CKD-EPI CR 2020 66 >59 mL/min/1.7 3 [facility] BUN/Creatinine Ratio 16 12 - 28 [facility] Sodium 137 134 - 144 mmol/L [facility] Potassium 4.7 3.5 - 5.2 mmol/L [facility] Chloride 100 96 - 106 mmol/L [facility] Bicarbonate (CO2) 20 20 - 29 mmol/L [facility] Calcium 9.0 8.7 - 10.3 mg/dL [facility] Albumin 4.3 3.9 - 4.9 g/dL [facility] Phosphorus 2.8(L) 3.0 - 4.3 mg/dL [facility] Blood specimen (specimen) Venous blood / Unknown 11/01/2024 8:45 AM EDT 11/01/2024 us Barry Reyes MD LAB BLOOD ORDERABLES Final Re sult [facility] [address] [place] [address] * (ABNORMAL) Ferritin (11/01/2024 8:45 AM EDT) Ferritin 480(H) 15 - 150 ng/mL [facility] Blood specimen (specimen) Venous blood / Unknown 11/01/2024 8:45 AM EDT 11/01/2024 Barry Reyes MD LAB BLOOD ORDERABLES Final Re sult Performing Organization Address City/[facility]/ZIP Co de Phone Number [facility] [address] [place] [address] * (ABNORMAL) Iron Panel (Fe, TIBC, TSAT) (11/01/2024 8:45 AM EDT) Pathologist [facility] TIBC 238(L) 250 - 450 ug/dL [facility] UIBC 168 118 - 369 ug/dL [facility] Iron 70 27 - 139 ug/dL [facility] Iron Saturation (TSat) 29 15 - 55 % [facility] Blood specimen (specimen) Venous blood / Unknown 11/01/2024 8:45 AM EDT 11/01/2024 Barry Reyes MD LAB BLOOD ORDERABLES Final Re sult [facility] [address] [place] [address] * (ABNORMAL) CBC and Differential (11/01/2024 8:45 AM EDT) WBC 6.6 3.4 - 10.8 x10E3/uL [facility] RBC 5.45(H) 3.77 - 5.28 x10E6/uL [facility] Hemoglobin 11.2 11.1 - 15.9 g/dL [facility] Hematocrit 38.3 34.0 - 46.6 % [facility] MCV 70(L) 79 - 97 fL [facility] MCH 20.6(L) 26.6 - 33.0 pg [facility] MCHC 29.2(L) 31.5 - 35.7 g/dL [facility] RDW 18.8(H) 11.7 - 15.4 % [facility] Platelets 175 150 - 450 x10E3/uL [facility] Neutrophils Relative 71 Not Estab. % [facility] Lymphocytes Relative 20 Not Estab. % [facility] Monocytes 6 Not Estab. % [facility] Eosinophils Relative 1 Not Estab. % [facility] Basophils Relative 1 Not Estab. % [facility] Neutrophils Absolute 4.7 1.4 - 7.0 x10E3/uL [facility] Lymphocytes Absolute 1.3 0.7 - 3.1 x10E3/uL [facility] Monocytes Absolute 0.4 0.1 - 0.9 x10E3/uL [facility] Eosinophils Absolute 0.1 0.0 - 0.4 x10E3/uL [facility] Basophils Absolute 0.1 0.0 - 0.2 x10E3/uL [facility] Immature Granulocytes 1 Not Estab. % [facility] Immature Grans (Absolute) 0.0 0.0 - 0.1 x10E3/uL [facility] Blood specimen (specimen) Venous blood / Unknown 11/01/2024 8:45 AM EDT 11/01/2024 us Barry Reyes MD LAB BLOOD ORDERABLES Final Re sult [facility] [address] [place] [phone] documented in this encounter Visit Diagnoses Diagnosis Anemia in chronic kidney disease Other iron deficiency anemia Chronic kidney disease, stage 2 (mild) documented in this encounter Care Teams Strip Deburrer Relationship Specialty Start Date End Date Sahra Son MD [address] [place] [phone] PCP - General Internal Medicine 10/28/22 documented as of this encounter
--- OUTSIDE RECORDS SUMMARY | 2025-02-20 10:06 | XMS_ITS | Encounter Summary ---
Author Organization [facility] Address [address] [place] [address] Phone Care Team Providers Care Industrial Engineering Technologist Name Role Phone Sahra Son MD Primary Care Provider + Encounter Details Date Type Department Care Team (Late st Contact Info) Description 02/16/2025 Orders Only [facility] [place], [address] [place] [address] [place] Davalos [address] [place] [address] Anemia in chronic kidney disease; [...] Comments IRON PANEL (FE, TIBC, TSAT) Routine 02/19/2025 [...] stage 2 (mild) RENAL FUNCTION PANEL Routine 02/19/2025 9:33 AM EDT Anemia in chronic kidney disease Other iron deficiency anemia Chronic kidney disease, stage 2 (mild) documented in this encounter Results * (ABNORMAL) Renal Function Panel (02/19/2025 9:33 AM EDT) Glucose 318(H) 70 - 99 mg/dL [facility] BUN 14 8 - 27 mg/dL [facility] Creatinine 1.01(H) 0.57 - 1.00 mg/dL [facility] eGFR CKD-EPI CR 2020 62 >59 mL/min/1.7 3 [facility] BUN/Creatinine Ratio 14 12 - 28 [facility] Sodium 137 134 - 144 mmol/L [facility] Potassium 4.8 3.5 - 5.2 mmol/L [facility] Chloride 99 96 - 106 mmol/L [facility] Bicarbonate (CO2) 22 20 - 29 mmol/L [facility] Calcium 9.3 8.7 - 10.3 mg/dL [facility] Albumin 4.2 3.9 - 4.9 g/dL [facility] Phosphorus 3.9 3.0 - 4.3 mg/dL [facility] Blood specimen (specimen) Venous blood / Unknown 02/19/2025 9:33 AM EDT 02/19/2025 us Barry Reyes MD LAB BLOOD ORDERABLES Final Re sult [facility] [address] [place] [address] * (ABNORMAL) Ferritin (02/19/2025 9:33 AM EDT) Pathologist [facility] Ferritin 156(H) 15 - 150 ng/mL [facility] Blood specimen (specimen) Venous blood / Unknown 02/19/2025 9:33 AM EDT 02/19/2025 Barry Reyes MD LAB BLOOD ORDERABLES Final Re sult Performing Organization Address City/[facility]/ZIP Co de Phone Number [facility] [address] [place] [address] * Iron Panel (Fe, TIBC, TSAT) (02/19/2025 9:33 AM EDT) Pathologist [facility] TIBC 263 250 - 450 ug/dL [facility] UIBC 219 118 - 369 ug/dL [facility] Iron 44 27 - 139 ug/dL [facility] Iron Saturation (TSat) 17 15 - 55 % [facility] Blood specimen (specimen) Venous blood / Unknown 02/19/2025 9:33 AM EDT 02/19/2025 Barry Reyes MD LAB BLOOD ORDERABLES Final Re sult [facility] [address] [place] [address] * (ABNORMAL) CBC and Differential (02/19/2025 9:33 AM EDT) Pathologist [facility] WBC 8.3 3.4 - 10.8 x10E3/uL [facility] RBC 5.45(H) 3.77 - 5.28 x10E6/uL [facility] Hemoglobin 11.2 11.1 - 15.9 g/dL [facility] Hematocrit 38.3 34.0 - 46.6 % [facility] MCV 70(L) 79 - 97 fL [facility] MCH 20.6(L) 26.6 - 33.0 pg [facility] MCHC 29.2(L) 31.5 - 35.7 g/dL [facility] RDW 18.0(H) 11.7 - 15.4 % [facility] Platelets 217 150 - 450 x10E3/uL [facility] Neutrophils Relative 73 Not Estab. % [facility] Lymphocytes Relative 18 Not Estab. % [facility] Monocytes 5 Not Estab. % [facility] Eosinophils Relative 2 Not Estab. % [facility] Basophils Relative 1 Not Estab. % [facility] Neutrophils Absolute 6.2 1.4 - 7.0 x10E3/uL [facility] Lymphocytes Absolute 1.5 0.7 - 3.1 x10E3/uL [facility] Monocytes Absolute 0.4 0.1 - 0.9 x10E3/uL [facility] Eosinophils Absolute 0.1 0.0 - 0.4 x10E3/uL [facility] Basophils Absolute 0.1 0.0 - 0.2 x10E3/uL [facility] Immature Granulocytes 0 Not Estab. % [facility] Immature Grans (Absolute) 0.0 0.0 - 0.1 x10E3/uL [facility] Blood specimen (specimen) Venous blood / Unknown 02/19/2025 9:33 AM EDT 02/19/2025 us Barry Reyes MD LAB BLOOD ORDERABLES Final Re sult [facility] [address] [place] [phone] documented in this encounter Visit Diagnoses Diagnosis Anemia in chronic kidney disease Other iron deficiency anemia Chronic kidney disease, stage 2 (mild) documented in this encounter Care Teams Industrial Engineering Technologist Relationship Specialty Start Date End Date Sahra Son MD [address] [place] [phone] PCP - General Internal Medicine 10/28/22 documented as of this encounter
--- OUTSIDE RECORDS SUMMARY | 2025-02-20 10:06 | XMS_ITS | Encounter Summary ---
Author Organization [facility] Address [address] [place] [address] Phone Care Team Providers Care Club Concierge Name Role Phone Sahra Son MD Primary Care Provider + Encounter Details Date Type Department Care Team (Late st Contact Info) Description 01/19/2025 Orders Only [facility] [place], [address] [place] [address] [place] Davalos [address] [place] [address] Anemia in chronic kidney disease; [...] (mild) documented in this encounter Care Teams Club Concierge Relationship Specialty Start Date End Date Sahra Son MD [address] [address] PCP - General Internal Medicine 10/28/22 documented as of this encounter
--- OUTSIDE RECORDS SUMMARY | 2025-02-20 10:06 | XMS_ITS | Encounter Summary ---
Author Organization [facility] [employer] [facility] [employer] Address [address] [place] [address] Phone Care Team Providers Care Sewing Machine Operator Floorperson Name Role Phone Sahra Son MD Primary Care Provider + Encounter Details Date Type Department Care Team (Late st Contact Info) Description 08/04/2024 Orders Only [facility] [place], [address] [place] [address] [place] Davalos [address] [place] [address] Anemia in chronic kidney disease; [...] Glucose 168(H) 70 - 99 mg/dL [facility] BUN 15 8 - 27 mg/dL [facility] Creatinine 0.93 0.57 - 1.00 mg/dL [facility] eGFR CKD-EPI CR 2020 69 >59 mL/min/1.7 3 [facility] BUN/Creatinine Ratio 16 12 - 28 [facility] Sodium 139 134 - 144 mmol/L [facility] Chloride 103 96 - 106 mmol/L [facility] Bicarbonate (CO2) 24 20 - 29 mmol/L [facility] Calcium 8.8 8.7 - 10.3 mg/dL [facility] Phosphorus 3.8 3.0 - 4.3 mg/dL [facility] Albumin 4.1 3.9 - 4.9 g/dL [facility] Potassium 4.8 3.5 - 5.2 mmol/L [facility] Blood specimen (specimen) Venous blood / Unknown 08/07/2024 8:15 AM EDT 08/07/2024 us Barry Reyes MD LAB BLOOD ORDERABLES Final Re sult [facility] [address] [place] [address] * Ferritin (08/07/2024 8:15 AM EDT) Pathologist [facility] Ferritin 55 15 - 150 ng/mL [facility] Blood specimen (specimen) Venous blood / Unknown 08/07/2024 8:15 AM EDT 08/07/2024 Barry Reyes MD LAB BLOOD ORDERABLES Final Re sult Performing Organization Address [facility]/ZIP Co de Phone Number [facility] [address] [place] [address] * (ABNORMAL) Iron Panel (Fe, TIBC, TSAT) (08/07/2024 8:15 AM EDT) Pathologist [facility] TIBC 290 250 - 450 ug/dL [facility] UIBC 251 118 - 369 ug/dL [facility] Iron 39 27 - 139 ug/dL [facility] Iron Saturation (TSat) 13(L) 15 - 55 % [facility] Blood specimen (specimen) Venous blood / Unknown 08/07/2024 8:15 AM EDT 08/07/2024 Barry Reyes MD LAB BLOOD ORDERABLES Final Re sult [facility] [address] [place] [address] * (ABNORMAL) CBC and Differential (08/07/2024 8:15 AM EDT) Pathologist [facility] WBC 5.6 3.4 - 10.8 x10E3/uL [facility] RBC 5.41(H) 3.77 - 5.28 x10E6/uL [facility] Hemoglobin 10.7(L) 11.1 - 15.9 g/dL [facility] Hematocrit 36.1 34.0 - 46.6 % [facility] MCV 67(L) 79 - 97 fL [facility] MCH 19.8(L) 26.6 - 33.0 pg [facility] MCHC 29.6(L) 31.5 - 35.7 g/dL [facility] RDW 18.9(H) 11.7 - 15.4 % [facility] Platelets 171 150 - 450 x10E3/uL [facility] Neutrophils Relative 65 Not Estab. % [facility] Lymphocytes Relative 25 Not Estab. % [facility] Monocytes 6 Not Estab. % [facility] Eosinophils Relative 3 Not Estab. % [facility] Basophils Relative 1 Not Estab. % [facility] Neutrophils Absolute 3.6 1.4 - 7.0 x10E3/uL [facility] Lymphocytes Absolute 1.4 0.7 - 3.1 x10E3/uL [facility] Monocytes Absolute 0.4 0.1 - 0.9 x10E3/uL [facility] Eosinophils Absolute 0.2 0.0 - 0.4 x10E3/uL [facility] Basophils Absolute 0.0 0.0 - 0.2 x10E3/uL [facility] Immature Granulocytes 0 Not Estab. % [facility] Immature Grans (Absolute) 0.0 0.0 - 0.1 x10E3/uL [facility] Blood specimen (specimen) Venous blood / Unknown 08/07/2024 8:15 AM EDT 08/07/2024 us Barry Reyes MD LAB BLOOD ORDERABLES Final Re sult [facility] [address] [place] [address] documented in this encounter Visit Diagnoses Diagnosis Anemia in chronic kidney disease Other iron deficiency anemia Chronic kidney disease, stage 2 (mild) documented in this encounter Care Teams Sewing Machine Operator Floorperson Relationship Specialty Start Date End Date Sahra Son MD [address] [place] [phone] PCP - General Internal Medicine 10/28/22 documented as of this encounter
--- OUTSIDE RECORDS SUMMARY | 2025-02-20 10:06 | XMS_ITS | Encounter Summary ---
Author Organization [facility] [place], Address [address] [place] [address] Phone Care Team Providers Care Planting Machine Crewman Name Role Phone Sahra Son MD Primary Care Provider + Encounter Details Date Type Department Care Team (Late st Contact Info) Description 11/13/2024 Documentation Only [facility] [place], [address] [place] [address] [place] Davalos [address] [place] [address] Social History Tobacco Use Types [...] on filedocumented in this encounter Care Teams Planting Machine Crewman Relationship Specialty Start Date End Date Sahra Son MD [address] [address] PCP - General Internal Medicine 10/28/22 documented as of this encounter
--- OUTSIDE RECORDS SUMMARY | 2025-02-20 10:06 | XMS_ITS | Encounter Summary ---
Author Organization [facility] [place], Address [address] [place] [address] Phone Care Team Providers Care Insurance Application Investigator Name Role Phone Sahra Son MD Primary Care Provider + Encounter Details Date Type Department Care Team (Late st Contact Info) Description 03/31/2024 Orders Only [facility] [place], [address] [place] [address] [place] Davalos [address] [place] [address] Chronic kidney disease, stage 2 [...] specified documented in this encounter Care Teams Insurance Application Investigator Relationship Specialty Start Date End Date Sahra Son MD [address] [address] PCP - General Internal Medicine 10/28/22 documented as of this encounter
--- OUTSIDE RECORDS SUMMARY | 2025-02-20 10:06 | XMS_ITS | Encounter Summary ---
Author Organization [facility] [place], Address [address] [place] [address] Phone Care Team Providers Care Stage Electrician Helper Name Role Phone Sahra Son MD Primary Care Provider + Encounter Details Date Type Department Care Team (Late st Contact Info) Description 11/10/2024 Orders Only [facility] [place], [address] [place] [address] [place] Davalos [address] [place] [address] Chronic kidney disease, stage 2 [...] specified documented in this encounter Care Teams Stage Electrician Helper Relationship Specialty Start Date End Date Sahra Son MD [address] [address] PCP - General Internal Medicine 10/28/22 documented as of this encounter
--- OUTSIDE RECORDS SUMMARY | 2025-02-20 10:06 | XMS_ITS | Encounter Summary ---
Author Organization [facility] [place], Address [address] [place] [address] Phone Care Team Providers Care Lead Tank Mechanic Name Role Phone Sahra Son MD Primary Care Provider + Encounter Details Date Type Department Care Team (Late st Contact Info) Description 07/21/2024 Orders Only [facility] [place], [address] [place] [address] [place] Davalos [address] [place] [address] Chronic kidney disease, stage 2 [...] specified documented in this encounter Care Teams Lead Tank Mechanic Relationship Specialty Start Date End Date Sahra Son MD [address] [address] PCP - General Internal Medicine 10/28/22 documented as of this encounter
--- OUTSIDE RECORDS SUMMARY | 2025-02-20 10:06 | XMS_ITS | Encounter Summary ---
Author Organization [facility] Address [address] [place] [address] Phone Care Team Providers Care Manager Of Exhibitions And Collections Name Role Phone Sahra Son MD Primary Care Provider + Encounter Details Date Type Department Care Team (Late st Contact Info) Description 09/01/2024 Orders Only [facility] [place], [address] [place] [address] India Davalos [address] [place] [address] Anemia in chronic kidney disease; [...] Glucose 233(H) 70 - 99 mg/dL [facility] BUN 15 8 - 27 mg/dL [facility] Creatinine 1.01(H) 0.57 - 1.00 mg/dL [facility] eGFR CKD-EPI CR 2020 62 >59 mL/min/1.7 3 [facility] BUN/Creatinine Ratio 15 12 - 28 [facility] Sodium 138 134 - 144 mmol/L [facility] Potassium 4.9 3.5 - 5.2 mmol/L [facility] Chloride 101 96 - 106 mmol/L [facility] Bicarbonate (CO2) 19(L) 20 - 29 mmol/L [facility] Calcium 9.1 8.7 - 10.3 mg/dL [facility] Albumin 4.2 3.9 - 4.9 g/dL [facility] Phosphorus 3.8 3.0 - 4.3 mg/dL [facility] Blood specimen (specimen) Venous blood / Unknown 09/06/2024 8:15 AM EDT 09/06/2024 us Barry Reyes MD LAB BLOOD ORDERABLES Final Re sult [facility] [address] [place] [address] * Ferritin (09/06/2024 8:15 AM EDT) Pathologist [facility] Ferritin 37 15 - 150 ng/mL [facility] Blood specimen (specimen) Venous blood / Unknown 09/06/2024 8:15 AM EDT 09/06/2024 Barry Reyes MD LAB BLOOD ORDERABLES Final [facility] [address] [place] [address] * (ABNORMAL) Iron Panel (Fe, TIBC, TSAT) (09/06/2024 8:15 AM EDT) Pathologist [facility] TIBC 323 250 - 450 ug/dL [facility] UIBC 286 118 - 369 ug/dL [facility] Iron 37 27 - 139 ug/dL [facility] Iron Saturation (TSat) 11(L) 15 - 55 % [facility] Blood specimen (specimen) Venous blood / Unknown 09/06/2024 8:15 AM EDT 09/06/2024 Barry Reyes MD LAB BLOOD ORDERABLES Final Re sult [facility] [address] [place] [address] * (ABNORMAL) CBC and Differential (09/06/2024 8:15 AM EDT) Pathologist [facility] WBC 6.3 3.4 - 10.8 x10E3/uL [facility] RBC 5.35(H) 3.77 - 5.28 x10E6/uL [facility] Hemoglobin 10.6(L) 11.1 - 15.9 g/dL [facility] Hematocrit 35.8 34.0 - 46.6 % [facility] MCV 67(L) 79 - 97 fL [facility] MCH 19.8(L) 26.6 - 33.0 pg [facility] MCHC 29.6(L) 31.5 - 35.7 g/dL [facility] RDW 18.4(H) 11.7 - 15.4 % [facility] Platelets 190 150 - 450 x10E3/uL [facility] Neutrophils Relative 67 Not Estab. % [facility] Lymphocytes Relative 22 Not Estab. % [facility] Monocytes 6 Not Estab. % [facility] Eosinophils Relative 3 Not Estab. % [facility] Basophils Relative 1 Not Estab. % [facility] Neutrophils Absolute 4.3 1.4 - 7.0 x10E3/uL [facility] Lymphocytes Absolute 1.4 0.7 - 3.1 x10E3/uL [facility] Monocytes Absolute 0.4 0.1 - 0.9 x10E3/uL [facility] Eosinophils Absolute 0.2 0.0 - 0.4 x10E3/uL [facility] Basophils Absolute 0.1 0.0 - 0.2 x10E3/uL [facility] Immature Granulocytes 1 Not Estab. % [facility] Immature Grans (Absolute) 0.1 0.0 - 0.1 x10E3/uL [facility] Blood specimen (specimen) Venous blood / Unknown 09/06/2024 8:15 AM EDT 09/06/2024 us Barry Reyes MD LAB BLOOD ORDERABLES Final Re sult [facility] [address] [place] [phone] documented in this encounter Visit Diagnoses Diagnosis Anemia in chronic kidney disease Other iron deficiency anemia Chronic kidney disease, stage 2 (mild) documented in this encounter Care Teams Manager Of Exhibitions And Collections Relationship Specialty Start Date End Date Sahra Son MD [address] [place] [phone] PCP - General Internal Medicine 10/28/22 documented as of this encounter
--- OUTSIDE RECORDS SUMMARY | 2025-02-20 10:06 | XMS_ITS | Encounter Summary ---
Author Organization [facility] Address [address] [place] [address] Phone Care Team Providers Care Metal Fabricating Supervisor Name Role Phone Sahra Son MD Primary Care Provider + Encounter Details Date Type Department Care Team (Late st Contact Info) Description 09/29/2024 Orders Only [facility] [place], [address] [place] [address] India Davalos [address] [place] [address] Anemia in chronic kidney disease; [...] Glucose 219(H) 70 - 99 mg/dL [facility] BUN 14 8 - 27 mg/dL [facility] Creatinine 1.09(H) 0.57 - 1.00 mg/dL [facility] eGFR CKD-EPI CR 2020 57(L) >59 mL/min/1.7 3 [facility] BUN/Creatinine Ratio 13 12 - 28 [facility] Sodium 139 134 - 144 mmol/L [facility] Potassium 5.0 3.5 - 5.2 mmol/L [facility] Chloride 101 96 - 106 mmol/L [facility] Bicarbonate (CO2) 20 20 - 29 mmol/L [facility] Calcium 9.2 8.7 - 10.3 mg/dL [facility] Albumin 4.1 3.9 - 4.9 g/dL [facility] Phosphorus 3.7 3.0 - 4.3 mg/dL [facility] Blood specimen (specimen) Venous blood / Unknown 10/04/2024 9:48 AM EDT 10/04/2024 us Barry Reyes MD LAB BLOOD ORDERABLES Final Re sult [facility] [address] [place] [address] * (ABNORMAL) Ferritin (10/04/2024 9:48 AM EDT) Pathologist [facility] Ferritin 167(H) 15 - 150 ng/mL [facility] Blood specimen (specimen) Venous blood / Unknown 10/04/2024 9:48 AM EDT 10/04/2024 Barry Reyes MD LAB BLOOD ORDERABLES Final Re sult [facility] [address] [place] [address] * (ABNORMAL) Iron Panel (Fe, TIBC, TSAT) (10/04/2024 9:48 AM EDT) Pathologist [facility] TIBC 247(L) 250 - 450 ug/dL [facility] UIBC 205 118 - 369 ug/dL [facility] Iron 42 27 - 139 ug/dL [facility] Iron Saturation (TSat) 17 15 - 55 % [facility] Blood specimen (specimen) Venous blood / Unknown 10/04/2024 9:48 AM EDT 10/04/2024 Barry Reyes MD LAB BLOOD ORDERABLES Final Re sult [facility] [address] [place] [address] * (ABNORMAL) CBC and Differential (10/04/2024 9:48 AM EDT) WBC 6.0 3.4 - 10.8 x10E3/uL [facility] RBC 5.10 3.77 - 5.28 x10E6/uL [facility] Hemoglobin 10.2(L) 11.1 - 15.9 g/dL [facility] Hematocrit 35.1 34.0 - 46.6 % [facility] MCV 69(L) 79 - 97 fL [facility] MCH 20.0(L) 26.6 - 33.0 pg [facility] MCHC 29.1(L) 31.5 - 35.7 g/dL [facility] RDW 18.5(H) 11.7 - 15.4 % [facility] Platelets 170 150 - 450 x10E3/uL [facility] Neutrophils Relative 69 Not Estab. % [facility] Lymphocytes Relative 22 Not Estab. % [facility] Monocytes 6 Not Estab. % [facility] Eosinophils Relative 2 Not Estab. % [facility] Basophils Relative 1 Not Estab. % [facility] Neutrophils Absolute 4.2 1.4 - 7.0 x10E3/uL [facility] Lymphocytes Absolute 1.3 0.7 - 3.1 x10E3/uL [facility] Monocytes Absolute 0.3 0.1 - 0.9 x10E3/uL [facility] Eosinophils Absolute 0.1 0.0 - 0.4 x10E3/uL [facility] Basophils Absolute 0.1 0.0 - 0.2 x10E3/uL [facility] Immature Granulocytes 0 Not Estab. % [facility] Immature Grans (Absolute) 0.0 0.0 - 0.1 x10E3/uL [facility] Blood specimen (specimen) Venous blood / Unknown 10/04/2024 9:48 AM EDT 10/04/2024 us Barry Reyes MD LAB BLOOD ORDERABLES Final Re sult [facility] [address] [place] [phone] documented in this encounter Visit Diagnoses Diagnosis Anemia in chronic kidney disease Other iron deficiency anemia Chronic kidney disease, stage 2 (mild) documented in this encounter Care Teams Metal Fabricating Supervisor Relationship Specialty Start Date End Date Sahra Son MD [address] [place] [phone] PCP - General Internal Medicine 10/28/22 documented as of this encounter
--- OUTSIDE RECORDS SUMMARY | 2025-02-20 10:06 | XMS_ITS | Encounter Summary ---
Author Organization [facility] [place], Address [address] [place] [address] Phone Care Team Providers Care Cobol Engineer Name Role Phone Sahra Son MD Primary Care Provider + Encounter Details Date Type Department Care Team (Late st Contact Info) Description 04/05/2024 Documentation Only [facility], [address] [place] [address] India Davalos [address] [place] [address] Social History Tobacco Use Types [...] on filedocumented in this encounter Care Teams Cobol Engineer Relationship Specialty Start Date End Date Sahra Son MD [address] [phone] PCP - General Internal Medicine 10/28/22 documented as of this encounter
--- OUTSIDE RECORDS SUMMARY | 2025-02-20 10:06 | XMS_ITS | Encounter Summary ---
Author Organization [facility] Address [address] [place] [address] Phone Care Team Providers Care Greens Cutter Name Role Phone Sahra Son MD Primary Care Provider + Encounter Details Date Type Department Care Team (Late st Contact Info) Description 04/28/2024 Orders Only [facility] [place], [address] [place] [address] India Davalos [address] [place] [address] Chronic kidney disease, stage 2 [...] Glucose 153(H) 70 - 99 mg/dL [facility] BUN 17 8 - 27 mg/dL [facility] Creatinine 0.98 0.57 - 1.00 mg/dL [facility] eGFR CKD-EPI CR 2020 64 >59 mL/min/1.7 3 [facility] BUN/Creatinine Ratio 17 12 - 28 [facility] Sodium 142 134 - 144 mmol/L [facility] Potassium 5.0 3.5 - 5.2 mmol/L [facility] Chloride 106 96 - 106 mmol/L [facility] Bicarbonate (CO2) 23 20 - 29 mmol/L [facility] Calcium 8.9 8.7 - 10.3 mg/dL [facility] Albumin 3.9 3.9 - 4.9 g/dL [facility] Phosphorus 3.9 3.0 - 4.3 mg/dL [facility] Blood specimen (specimen) Venous blood / Unknown 05/05/2024 9:18 AM EST 05/05/2024 us Barry Reyes MD LAB BLOOD ORDERABLES Final Re sult [facility] [address] [place] [address] * (ABNORMAL) Ferritin (05/05/2024 9:18 AM EST) Ferritin 282(H) 15 - 150 ng/mL [facility] Blood specimen (specimen) Venous blood / Unknown 05/05/2024 9:18 AM EST 05/05/2024 Barry Reyes MD LAB BLOOD ORDERABLES Final Re sult [facility] [address] [place] [address] * Iron Panel (Fe, TIBC, TSAT) (05/05/2024 9:18 AM EST) Pathologist [facility] TIBC 277 250 - 450 ug/dL [facility] UIBC 210 118 - 369 ug/dL [facility] Iron 67 27 - 139 ug/dL [facility] Iron Saturation (TSat) 24 15 - 55 % [facility] Blood specimen (specimen) Venous blood / Unknown 05/05/2024 9:18 AM EST 05/05/2024 Barry Reyes MD LAB BLOOD ORDERABLES Final Re sult [facility] [address] [place] [address] * (ABNORMAL) CBC and Differential (05/05/2024 9:18 AM EST) Pathologist [facility] WBC 5.6 3.4 - 10.8 x10E3/uL [facility] RBC 5.33(H) 3.77 - 5.28 x10E6/uL [facility] Hemoglobin 10.2(L) 11.1 - 15.9 g/dL [facility] Hematocrit 35.0 34.0 - 46.6 % [facility] MCV 66(L) 79 - 97 fL [facility] MCH 19.1(L) 26.6 - 33.0 pg [facility] MCHC 29.1(L) 31.5 - 35.7 g/dL [facility] RDW 20.1(H) 11.7 - 15.4 % [facility] Platelets 163 150 - 450 x10E3/uL [facility] Neutrophils Relative 64 Not Estab. % [facility] Lymphocytes Relative 26 Not Estab. % [facility] Monocytes 6 Not Estab. % [facility] Eosinophils Relative 3 Not Estab. % [facility] Basophils Relative 1 Not Estab. % [facility] Neutrophils Absolute 3.6 1.4 - 7.0 x10E3/uL [facility] Lymphocytes Absolute 1.5 0.7 - 3.1 x10E3/uL [facility] Monocytes Absolute 0.3 0.1 - 0.9 x10E3/uL [facility] Eosinophils Absolute 0.2 0.0 - 0.4 x10E3/uL [facility] Basophils Absolute 0.0 0.0 - 0.2 x10E3/uL [facility] Immature Granulocytes 0 Not Estab. % [facility] Immature Grans (Absolute) 0.0 0.0 - 0.1 x10E3/uL [facility] Blood specimen (specimen) Venous blood / Unknown 05/05/2024 9:18 AM EST 05/05/2024 us Barry Reyes MD LAB BLOOD ORDERABLES Final Re sult [facility] [address] [place] [address] documented in this encounter Visit Diagnoses Diagnosis Chronic kidney disease, stage 2 (mild) Anemia in chronic kidney disease Iron deficiency anemia, not otherwise specified documented in this encounter Care Teams Greens Cutter Relationship Specialty Start Date End Date Sahra Son MD [address] [place] [phone] PCP - General Internal Medicine 10/28/22 documented as of this encounter
--- OUTSIDE RECORDS SUMMARY | 2025-02-20 10:06 | XMS_ITS | Encounter Summary ---
Author Organization [facility] [place], Address [address] [place] [address] Phone Care Team Providers Care Momd Teacher Name Role Phone Sahra Son MD Primary Care Provider + Encounter Details Date Type Department Care Team (Late st Contact Info) Description 02/16/2025 Telephone [facility] [place], [address] [place] [address] Stephanie Azul RN [address] [place] [address] [place] [address] Social History Tobacco Use Types [...] Telephone Encounter - Stephanie Azul RN - 02/16/2025 10:59 AM EDT Pt has not received Retacrit since November because she pressley not get her labs drawn (last drawn 11/01/24). I spoke to her on 01/10/25 and 02/09/25 to remind her and explain the consequences of not getting Retacrit injection due to no current CBC. She states she understands and will get labs drawn, but doesnot go. I called pt today because [facility] contacted me to report retacrit appt scheduled for 02/13/25 canceled again due to not having current hgb. I had called pt on 02/09/25 and she told me she was going to [facility] on 02/09 or 02/10/25. Today she told me she did not go because she had been blind for 2 weeks but she will go Wednesday morning. I explained she has been instructed multiple times she needs labs q 28 days and she needs to keep track of when labs are due. She also is aware that if labs not drawn, she will not get Retacrit injection. I will follow-up after blood results are available. Cosigned by Barry Reyes MD at 02/16/2025 2:31 PM EDT documented in this encounter Plan of Treatment Not on file documented as of this encounter Visit Diagnoses Not on filedocumented in this encounter Care Teams Momd Teacher Relationship Specialty Start Date End Date Sahra Son MD [address] [place] [address] PCP - General Internal Medicine 10/28/22 documented as of this encounter
--- OUTSIDE RECORDS SUMMARY | 2025-02-20 10:06 | XMS_ITS | Encounter Summary ---
Author Organization [facility] [place], Address [address] [place] [address] Phone Care Team Providers Care Exhauster Engineer Name Role Phone Sahra Son MD Primary Care Provider + Encounter Details Date Type Department Care Team (Late st Contact Info) Description 10/13/2024 Orders Only [facility] [place], [address] [place] [address] India Davalos [address] [place] [address] Chronic kidney disease, stage 2 [...] specified documented in this encounter Care Teams Exhauster Engineer Relationship Specialty Start Date End Date Sahra Son MD [address] [address] PCP - General Internal Medicine 10/28/22 documented as of this encounter
== END 2025-02-20 09:42 | disposition home or self-care (01) ==
LOC: HO.ACS 09:07
PROVIDERS: PCP Internal Medicine; Visit Provider Internal Medicine Medical Oncology
DX: Z79.01 Long term (current) use of anticoagulants (principal)

== ENCOUNTER → 2025-02-20 09:07 | Outpatient (BNVA) | payer OTHER, SELFPAY | PROVIDERS: PCP Internal Medicine; Visit Provider Internal Medicine Medical Oncology | DX: Z86.718 Personal history of other venous thrombosis and embolism (principal); Z79.01 Long term (current) use of anticoagulants; Z51.81 Encounter for therapeutic drug level monitoring | CPT/HCPCS: 85610; 99211 ==

== ENCOUNTER 2025-02-27 09:13 | Outpatient (AMB) | payer OTHER, SELFPAY ==
[2025-02-27 09:35] LABS: Prothrombin Time Whole Bld POC 21.0 sec (11.1-13.5); ~PT, ~INR - Anti Coag Clinic 1.7 (0.9-1.1)
--- NOTE | 2025-02-27 09:43 | MHC.OFFVISCO ---
Intake Intake Visit Reasons: Anticoagulation Allergies codeine (Codeine) Allergy (Severe, Verified 02/27/25 09:26) DIFFICULTY BREATHING Penicillins Allergy (Severe, Verified 02/27/25 09:26) RASH penicillin V Allergy (Intermediate, Verified 02/27/25 09:26) RASH tramadol (Ultram) Allergy (Unknown, Verified 02/27/25 09:26) hallucinations Shellfish Allergy (Severe, Uncoded 02/27/25 09:26) THROAT SWELLING Contrast Allergy PreMed Pack Allergy (Unknown, Uncoded 02/27/25 09:26) TREAT WITH BENADRYL ferrlecit Adverse Reaction (Intermediate, Uncoded 02/27/25 09:26) Rash Medication List - Last Reconciled 02/27/25 by Tangela Sam RN alcohol swabs 2 pad topical DAILY blood sugar diagnostic As directed budesonide (Pulmicort) 0.25 mg inhalation BID clonidine HCl 0.1 mg PO BID dapagliflozin propanediol (Farxiga) 5 mg PO DAILY divalproex ER 250 mg PO BID docusate sodium (Colace) 100 mg PO DAILY duloxetine (Cymbalta) 30 mg PO DAILY duloxetine 60 mg PO QAM epoetin marj (Procrit) 2,000 units subcut 3XW hydrocortisone 2.5% appl topical insulin glargine (Lantus Solostar U-100 Insulin) 5 units subcut DAILY ipratropium-albuterol 0.5 mg-3 mg(2.5 mg base)/3 mL mL inhalation ipratropium-albuterol 20-100 mcg/actuation 1 puff PO QID ipratropium-albuterol 20-100 mcg/actuation (Combivent Respimat) 1 puff inhalation Q4H lancets As directed lancets As directed latanoprost 0.005% drps ophthalmic (eye) lidocaine 4% (Lidocaine Pain Relief) 1 patch topical DAILY PRN linaclotide (Linzess) 145 mcg PO DAILY linagliptin (Tradjenta) 5 mg PO DAILY dxhgkt-orhquzzt-oiffbkd (pork) 24,000-76,000 -120,000 unit (Creon) 1 cap PO TID loratadine 10 mg PO DAILY PRN lorazepam 1 mg PO BID meclizine mg PO montelukast 10 mg PO BEDTIME nifedipine ER 30 mg PO DAILY nitroglycerin 0.4 mg sublingual Q5M PRN nystatin 1 appl topical DAILY PRN ondansetron 4 mg PO Q8H PRN oxcarbazepine (Trileptal) 150 mg PO Q12H 30 days quetiapine 200 mg PO BEDTIME rabeprazole 20 mg PO DAILY ropinirole 0.25 mg PO BEDTIME rosuvastatin 40 mg PO DAILY sodium chloride 0.65% (Deep Sea Nasal) sprays intranasal Q2H PRN triamcinolone acetonide 0.1% appl topical warfarin 2.5 mg See Protocol PO DAILY Nursing Note INR 1.7? out of therapeutic range- previous INR 4.7 Medications and supplements reviewed Patient status: Pt explained that she did not feel well last week, she stated she had episodes where she could not see, one time she got up to go to the bathroom and started to shake and became incontinent and stated another time she felt week arm and body on one side felt weak, it was explained that could have been stroke symptoms or possible, seizure or migraine - either way should have gone to ER and to go if happens again, she was enc to call her PCP and especially her Nuerologist either way. Medications or supplements: no changes Diet: fair Denies any signs and symptoms of bleeding or clotting or unusual bruising Bleeding, bruising, clotting discussed Nutritional guidance given: No greens today, eat orange and reds Dose: keep same dose for now 3.75mg x 2 days/ 5mg x 5 days F/U INR Date : 10 days ?? Patient verbalizing understanding of instructions given. Anti-Coag Initial Assessment Social Hx Patient Tobacco Use Status: Current everyday Tobacco user alcohol intake: never Coding Level of Care Code Est Patient Level 1 Diagnoses Current use of anticoagulant therapy Z79.01 Results AMB INR Fingerstick AMB INR Fingerstick 1.7 Last Edit by Tangela Sam RN on 02/27/25 09:35 MANUAL ENTRY Assessment & Plan Assessment & Plan (1) Current use of anticoagulant therapy: Code(s): Z79.01 - senior living (current) use of anticoagulants Category: Medical
--- OUTSIDE RECORDS SUMMARY | 2025-02-27 09:59 | XMS_ITS | Clinical Summary ---
Author Organization [address] [facility] Address [address] [place] [address] Phone Care Team Providers Care Gyroscopic Instrument Mechanic Name Role Phone Sahra Son MD Primary Care Provider + Surgical History Surgery Date Site/Laterality Comments OTHER SURGICAL HISTORY 1975 PROCEDURE: AR TX ECTOPIC ABDOMINAL/VAGINAL APPR PARTIAL HYSTERECTOMY PROCEDURE: AR SUPRACERVICAL ABDL HYSTER W/WO RMVL TUBE OVARY CHOLECYSTECTOMY 1982 PROCEDURE: HISTORICAL CHOLECYSTECTOMY CARPAL TUNNEL RELEASE 11/21/2014 Left PROCEDURE: HISTORICAL CARPAL TUNNEL REL BOWEL RESECTION 03/2004 PROCEDURE: HISTORICAL BOWEL RESECTION; COMMENT: bowel obstruction Medical History Medical History Date Comments Diverticulosis DX:Diverticulosi s CHF (congestive heart failur e) ([facility] V24, [facility] V28) DX:CHF (congestive heart fa ilure) ([facility]) COPD (chronic obstructive pu lmonary disease) ([facility] V24, [facility] V28) DX:COPD (chronic o bstructive pulmonary disease) ([facility]) Osteoporosis DX:Osteoporosis Fibromyalgia DX:Fibromyalgia Myelofibrosis ([facility] V24, [facility] V28) DX:Myelofibrosis ([facility]); COMM ENT: diagnosed 8 years ago, follows with DR layne Meningioma ([facility] V24, [facility] V28) DX:Meningioma ([facility]) Asthma DX:Asthma Gout DX:Gout Seizures ([facility] V24, [facility] V28) DX:Seizures ([facility]) Lupus DX:Lupus Depression DX:Depression; C OMMENT: follows at [facility] net at [facility] Hypercoagulable state ([facility] V24) DX:Hypercoagulable state ([facility]); COMMENT: on coumadin Neurogenic bladder DX:Neurogenic bladder; COMMENT: flowers dependent Supplemental oxygen dependent DX :Supplemental oxygen dependent Lung nodule 03/22/2017 DX:Lung nodule ALESSANDRA (obstructive sleep apnea) 03/22/2017 DX :ALESSANDRA (obstructive sleep apnea) GERD (gastroesophageal reflux disease) 03/22/2017 DX:GERD (gastroesophageal reflux disease) Anxiety 03/22/2017 DX:Anxiety Dementia ([facility] V24, [facility] V28) 03/22/2017 DX:Dementia (HCC) Schizophrenia ([facility] V24, [facility] V28) 03/22/2017 DX:Schizophrenia ([facility]) Glaucoma 03/22/2017 DX:Glaucoma History of stroke DX:History of stroke History of deep vein thrombosis DX:History of deep vein thrombosis Coronary artery disease DX:Coron christine artery disease; COMMENT: [place] Diabetes mellitus type 2 wit h neurological manifestations ([facility] V24, [facility] V28) DX:Diabetes mellitus type 2 with neurological manifestations ([facility]) Leukemia ([facility] V24, [facility] V28) 09/02/2017 DX:Leukemia ([facility]) MDS (myelodysplastic syndrom e) ([facility] V24, [facility] V28) 09/02/2017 DX:MDS (myelodysplastic syn drome) ([facility]) Hyperthyroidism 09/02/2017 DX:Hyperthyroidi sm History of TIA [...] 07/25/2025 9:50 AM EDT Consult Gastroenterology - [place] [address] [facility] [address] [place] [address] Deloris Vickers PA [address] [facility] [address] [place] [address] Health Maintenance Due Date Last Done Comments [...] patient's age to complete this topic Insurance [facility] Member Subscriber Plan / Payer (Ef fective 2024-Present) Name:Jennifer Schulz Relation to Subscriber:Self Name:Jennifer Schulz Payer ID:[id number] Group ID:[id number] Type:Not on file Address: [place] [address] [address] [phone] Care Teams Gyroscopic Instrument Mechanic Relationship Specialty Start Date End Date Sahra Son MD [address] [place] [id number] PCP - General Internal Medicine 11/15/24
--- OUTSIDE RECORDS SUMMARY | 2025-02-27 09:59 | XMS_ITS | Clinical Summary ---
Author Organization [facility] Address [address] [place] [address] Care Team Providers Care Boring Machine Operator Production Name Role Phone Geovani Natalie Carmelo ESPARZA Primary Care Provider [phone] Allergies Active Allergy Reactions Criticality Noted Date [...] 1 10/04/2016 Active ergocalciferol (VITAMIN D2) capsule 93759 units TK ONE C PO TWICE A [...] times a day. 0 04/27/2022 Active pancrelipase, Pgi-Amad-Dzrf, (Creon) 51949-83365 units CPEP TK ONE C PO TID [...] age to complete this topic Care Teams Boring Machine Operator Production Relationship Specialty Start Date End Date Natalie Olivo APRN [address] [place] [address] PCP - General Lithographic Plate Maker 04/30/22
== END 2025-02-27 09:50 | disposition home or self-care (01) ==
LOC: HO.ACS 09:13
PROVIDERS: PCP Internal Medicine; Visit Provider Internal Medicine Medical Oncology
DX: Z79.01 Long term (current) use of anticoagulants (principal)

== ENCOUNTER → 2025-02-27 09:13 | Outpatient (BNVA) | payer OTHER, SELFPAY | PROVIDERS: PCP Internal Medicine; Visit Provider Internal Medicine Medical Oncology | DX: Z86.718 Personal history of other venous thrombosis and embolism (principal); Z79.01 Long term (current) use of anticoagulants; Z51.81 Encounter for therapeutic drug level monitoring | CPT/HCPCS: 85610; 99211 ==

== ENCOUNTER 2025-03-06 12:43 | Outpatient (AMB) | payer OTHER, SELFPAY ==
[2025-03-06 12:44] VITALS: BP 128/80; PULSE 80; O2SAT 97; BMI 32.9
--- NOTE | 2025-03-06 12:44 | A.OFFVIS_ITS ---
Vital Signs 03/06/25 12:44 Height 5 ft 7 in Weight 210 lb 2 oz BMI 32.9 BP 128/80 Blood Pressure Location Rt brachial Position Sitting Pulse 80 Pulse Source Pulse Oximeter Pulse Oximetry (%) 97 Oxygen Delivery Method Room Air Intake Visit Reasons: F/U per MD Intake Note: Follow up Episodes of tremor ? Seizures, History of left common carotid artery stent placement Optical Sales Associate Required: No Accompanied by: Self / Same As Patient Allergies codeine (Codeine) Allergy (Severe, Verified 03/06/25 12:44) DIFFICULTY BREATHING Penicillins Allergy (Severe, Verified 03/06/25 12:44) RASH penicillin V Allergy (Intermediate, Verified 03/06/25 12:44) RASH tramadol (Ultram) Allergy (Unknown, Verified 03/06/25 12:44) hallucinations Shellfish Allergy (Severe, Uncoded 02/27/25 09:26) THROAT SWELLING Contrast Allergy PreMed Pack Allergy (Unknown, Uncoded 02/27/25 09:26) TREAT WITH BENADRYL ferrlecit Adverse Reaction (Intermediate, Uncoded 02/27/25 09:26) Rash Medication List - Last Reconciled 03/06/25 by Latrice Garsia MD alcohol swabs 2 pad topical DAILY blood sugar diagnostic As directed budesonide (Pulmicort) 0.25 mg inhalation BID clonidine HCl 0.1 mg PO BID dapagliflozin propanediol (Farxiga) 5 mg PO DAILY divalproex ER 250 mg PO BID docusate sodium (Colace) 100 mg PO DAILY duloxetine (Cymbalta) 30 mg PO DAILY duloxetine 60 mg PO QAM epoetin marj (Procrit) 2,000 units subcut 3XW hydrocortisone 2.5% appl topical insulin glargine (Lantus Solostar U-100 Insulin) 5 units subcut DAILY ipratropium-albuterol 0.5 mg-3 mg(2.5 mg base)/3 mL mL inhalation ipratropium-albuterol 20-100 mcg/actuation 1 puff PO QID ipratropium-albuterol 20-100 mcg/actuation (Combivent Respimat) 1 puff inhalation Q4H lancets As directed lancets As directed latanoprost 0.005% drps ophthalmic (eye) linaclotide (Linzess) 145 mcg PO DAILY linagliptin (Tradjenta) 5 mg PO DAILY befujf-htgbxpba-yvdsyyj (pork) 24,000-76,000 -120,000 unit (Creon) 1 cap PO TID loratadine 10 mg PO DAILY PRN lorazepam 1 mg PO BID meclizine mg PO montelukast 10 mg PO BEDTIME nifedipine ER 30 mg PO DAILY nitroglycerin 0.4 mg sublingual Q5M PRN nystatin 1 appl topical DAILY PRN ondansetron 4 mg PO Q8H PRN oxcarbazepine (Trileptal) 150 mg PO Q12H 30 days pen needle, diabetic (Ultra-Fine Pen Needle) As directed quetiapine 200 mg PO BEDTIME rabeprazole 20 mg PO DAILY ropinirole 0.25 mg PO BEDTIME rosuvastatin 40 mg PO DAILY sodium chloride 0.65% (Deep Sea Nasal) sprays intranasal Q2H PRN triamcinolone acetonide 0.1% appl topical warfarin 2.5 mg See Protocol PO DAILY HPI Comments Details: 64y/o female with multiple medical and psychiatric issues comes for follow up of possible seizure disorder.she reports an episode of gen shaking -she was fully aware during the whole episode and happened when she walked from living room to the bathroom . she also had urgency- this lasted 2min . It was after lunch at 2pm. . Her repeat EEG showed mild left temporal irritability.No episodes of seizure like activity.she is doing good on depakote - coumadin clinic is monitoring her INR. History from her initial visit 05/2024- she is accompanied by her sister . 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 she is followed up by . She started having seizure like episodes 20 years ago. She describes the episode starting with yes yes head tremors, confusion and gen body shaking lasting few seconds to minutes followed by extreme fatigue . she used to have 1-2 a week and used to be on Phenytoin - but developed toxicity ? twice as per patient so was stopped 15 years ago.Phenytoin controlled her seizures. She says she lost all her teeth and multiple fractures because of falls related to seizures.. She is usually confused during the episodes. she has neurogenic bladder . No tongue biting. No family h/o seizures. she has multiple falls . she has h/o anxiety , depression ? schizophrenia. she was seen at [facility] - EEG was done and was told the episodes were nonepileptic. [facility] Medical History Episode of shaking Ectopic Opioid dependence on agonist therapy Pulmonary nodule Hyperthyroiditis Graves disease Gout History of DVT (deep vein thrombosis) History of CVA (cerebrovascular accident) Conversion disorder Tobacco abuse Hiatal hernia Antiphospholipid antibody positive Schizophrenia Osteopenia Glaucoma Hypoglycemia Leukemia Lupus (systemic lupus erythematosus) Neurogenic bladder Fibromyalgia Urinary incontinence Carotid artery aneurysm Psychogenic nonepileptic seizure Thyroid disease Stroke Seizures Osteoporosis Memory loss CKD (chronic kidney disease) Hyperlipidemia HTN (hypertension) Heartburn Heart disease Headache Diabetes Depression COPD (chronic obstructive pulmonary disease) Asthma Arthritis Anemia Surgical History H/O shoulder surgery H/O: hysterectomy Hx of cholecystectomy Family History Father FH: heart attack Lymphoma CHF (congestive heart failure) Mother Breast cancer in female Social History Alcohol intake: never Patient Tobacco Use Status: Current everyday Tobacco user Substance Use Type: Marijuana Physical Exam Vital Signs: Last Vital Signs Pulse 80 03/06/25 12:44 BP 128/80 03/06/25 12:44 Pulse Ox 97 03/06/25 12:44 Oxygen Delivery Method Room Air 03/06/25 12:44 BMI result Body Mass Index 32.9 Const General: cooperative, healthy appearing and comfortable Nutritional Appearance: average body habitus Orientation/consciousness: patient oriented x3 Neuro General: patient oriented x3, gait normal, tone normal, moves all extremities and no focal motor deficits Cranial nerves: Yes Facial sensation intact/muscles of mastication intact, Yes Bilaterally intact EOM present, Yes Nystagmus not present, Yes Normal facial strength present, Yes Midline tongue present, Yes Symmetric palate elevation present and Yes Ability to bilaterally elevate shoulders present Cognition (Neuro): normal cognition Gait exam (Neuro): Normal gait present Motor exam (neuro): 5/5 motor strength present throughout and Normal motor muscle tone present throughout Assessment & Plan Assessment & Plan (1) Episode of shaking: Comment: ? seizures Code(s): R25.1 - Tremor, unspecified Category: Medical (2) History of left common carotid artery stent placement: Code(s): Z98.890 - Other specified postprocedural states; Z95.828 - Presence of other vascular implants and grafts (3) Psychogenic nonepileptic seizure: Code(s): F44.5 - Conversion disorder with seizures or convulsions Category: Medical (4) Seizures: Code(s): R56.9 - Unspecified convulsions Plan EEG showed mild left temporal irritability Reviewed her MRI brain , orbits and CTA brain and neck . Increased Depakote ER 500 mg bid - monitor INR as it can increase her warfarin levels . F/u with psychiatry counseled on good diabetes control , smoking cessation etc. Medications: New divalproex 500 mg PO BID 60 tabs 6RF Coding Level of Care Code Est Pt Level 4 (53812) Complex EM visit Add On G2211 Diagnoses Episode of shaking R25.1 History of left common carotid artery stent placement Z98.890; Z95.828 Psychogenic nonepileptic seizure F44.5 Seizures R56.9
--- OUTSIDE RECORDS SUMMARY | 2025-03-06 16:14 | XMS_ITS | Clinical Summary ---
Author Organization [facility] Address [address] [place] [address] Care Team Providers Care Day Care Attendant Name Role Phone Geovani Natalie Carmelo ESPARZA Primary Care Provider [phone] Allergies Active Allergy Reactions Criticality Noted Date [...] 1 10/04/2016 Active ergocalciferol (VITAMIN D2) capsule 12851 units TK ONE C PO TWICE A [...] times a day. 0 04/27/2022 Active pancrelipase, Lyo-Fmju-Dymg, (Creon) 22069-60308 units CPEP TK ONE C PO TID [...] age to complete this topic Care Teams Day Care Attendant Relationship Specialty Start Date End Date Natalie Olivo APRN [address] [place] [address] PCP - General Cashier Self Service Gasoline 04/30/22
--- OUTSIDE RECORDS SUMMARY | 2025-03-06 16:14 | XMS_ITS | Data Portability ---
Author Organization [employer], [facility] Address [address] [place] [address] Care Team Providers Care Turbine Engineer Name Role Phone HIM CCA OTHER Assessment Encounter Date Assessment Date Assessment LastModified by Organization Details LastModified Time 08/17/2024 08/17/2024 I have reviewed and agree with the assessment and plan as documented by the deicer kit assembler. I provided real time medical direction for this encounter and was immediately available to provide additional phone based assistance as needed. History as noted by deicer kit assembler. Pt with history of type 2 diabetes complicated by CKD and hyperglycemia, pancreatic insufficiency, HTN, anemia, hyperlipidemia, obesity, memory impairment, previous CVA, stented carotid aneurysm, antiphospholipid antibody syndrome on long-term warfarin, COPD, seizure disorder/nonepile ptic seizures, depression, anxiety, insomnia, and chronic pain. [...] 08/17/2024 16:18:12 10/25/2024 10/25/2024 As noted, we wer e called to see this patient regarding concerns of abdominal pain. Evaluation in the field was performed by my deicer kit assembler colleague, as noted above, I provided real-time [...] We discussed the need to seek care urgently/emergent ly in the setting of any new or worsening serious symptoms, particularly worsening abdominal pain, voimiting, fever, malaise, confusion atilhou Not available 10/25/2024 17:35:23 01/14/2025 01/14/2025 Ms. Schulz is a 64 yo F with Hypertension, Congestive Heart Failure, COPD/Asthma, Diabetes Mellitus Type 2, Stroke, Chronic Kidney Disease, Cigarette Smoker, Epilepsy/Seizure Disorder, Hyperlipidemia who is calling today about a glucose check. Per patient and medic, patient has had glucose fairly persistently over 300 for the last week. Has been compliant with meds. Increased thirst, headaches, nausea. Called today to r/o DKA. No infectious sx. 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 Lungs are clear. No c/f weight gain. No recent med adjustments. We did check a screening urinalysis today. Urine was reassuring. No urine culture indicated at this time. No other infectious symptoms endorsed. Would recommend outpatient primary care follow. No further IV fluids or interventions warranted at this time. I provided real -time medical direction via phone for this encounter, and was available for additional phone based assistance as needed. I have reviewed and agree with the Assessment and Plan as documented by the Sex Therapist. We discussed the diagnostic uncertainty of home visits and the risk associated with this. In this case the patient and I felt this to be an acceptable and reasonable amount of risk given the benefit of avoiding an ED visit. The patient given the opportunity to ask questions. Follow up with primary care was recommended, as needed. Advised if develops CP/severe SOB/turning blue/uncontrolled n/v/d or black/bloody emesis or stool/ AMS/ syncope/ high fever unresponsive to APAP to call 911- verbalized understanding of instruction. [email or web address] Not available 01/14/2025 12:02:19 Plan of Treatment Reminders Order Date Submit Date Provider Last Modified By Organization Details Last Modified Time Details Appointments None recorded. Lab BMP, serum or plasma 2024 025 [facility], [address] [place] [address], [id number] 5 12:20:09 urinalysis, dipstick 2024 025 [facility], [address] [place] [address], [id number] 5 12:20:09 culture, urine 2024 025 [email or web address] [facility] (Centralized Electronic Ordering - All Locations), Patient Can Go To The Location Of Their Choice, [id number] 5 08:25:21 urinalysis, dipstick 2024 025 [facility], [address] [place] [address], [id number] 5 20:21:31 respiratory pathogens DNA + RNA panel, DONOVAN+probe, nasopharynx 2024 025 [email or web address] [facility] (Centralized Electronic Ordering - All Locations), Patient Can Go To The Location Of Their Choice, [id number] 5 18:18:02 BMP, serum or plasma 2024 025 [facility], [address] [place] [address], [id number] 5 20:21:31 Referral None recorded. Procedures None recorded. Surgeries None recorded. Imaging None recorded. Medication Orders lactated Ringers intravenous solution 2024 025 [id number], [address], [place], [id number], 5 16:57:07 ondansetron HCl (PF) 4 mg/2 mL injection solution 2024 025 [facility] #[id number], [address], [place], [id number], 5 16:57:04 ketorolac 60 mg/2 mL intramuscul ar solution 2024 025 [facility] #[id number], [address], [place], [id number], 5 16:08:53 lidocaine 4 % topical patch 2024 025 [facility] #[id number], [address], [place], [id number], 5 16:08:59 Patient TargetsNo targets recorded. Patient InstructionsNo instructions recorded. Reason for Referral None Reported. Results Created Date Observation Date Name Description Value Unit Range Abnormal Flag Note LastModifiedBy Organization Detail LastModifiedTime Result Notes None recorded. Medical Equipment None Reported. Allergies Allergen ID Allergen Name Allergen Category Reaction Reaction Severity Criticality Documentation Date Start Date Code Code System Note Provider Name and Address Organization Details Recorded Time 174 codeine medicatio n Not available Not available Not available 05/27/2022 2670 RxNorm Not Available [facility] - production 5 14:05:30 1748 shellfish derived food,medi cation Not available Not available Not available 05/27/2022 Nidia Morales MD [address] [facility],[address], [place], [address], [employer] 3 14:08:14 1749 Product containin g penicilli n (product) medicatio n Not available Not available Not available 05/27/2022 36943 8001 SNOMED Not Available [facility] - production 4 03:41:45 4589 morphine medicatio n Not available Not available Not available 07/07/2023 7052 RxNorm Natalie Whipple MD [address] [facility],[address], [place], [address], [employer] 4 15:03:14 4590 Iodinated contrast media (substanc e) medicatio n Not available Not available Not available 07/07/2023 75146 2004 SNOMED Natalie Whipple MD [address] [facility],[address], [place], [address], [employer] 4 15:03:26 Medications Name Sig Start Date [...] [degF] 16 /min 140/64 mm[Hg] Not Available [facility] - production 5 16:01:31 Date Recorded Body temperature Heart rate Oxygen saturation Oxygen saturation in Arterial blood by Pulse oximetry Respiratory rate Systolic And Diastolic Provider Name and Address Organization Details Last Updated DateTime 5 98.3 [degF] 94 /min 98 % 98 % 18 /min 158/80 mm[Hg] Not Available [facility] 5 16:49:15 Date Recorded Oxygen saturation Oxygen saturation in Arterial blood by Pulse oximetry Heart rate Body weight Body temperature Respiratory rate Body height Systolic And Diastolic Provider Name and Address Organization Details Last Updated DateTime 5 96 % 96 % 90 /min 86641.4 g 98 [degF] 14 /min 167.64 cm 148/92 mm[Hg] Not Available [facility] 5 14:19:37 Date Recorded Body temperature Oxygen saturation Oxygen saturation in Arterial blood by Pulse oximetry Heart rate Respiratory rate Systolic And Diastolic Provider Name and Address Organization Details Last Updated DateTime 4 98 [degF] 97 % 97 % 87 /min 16 /min 133/78 mm[Hg] Not Available [employer] 4 14:12:35 Date Recorded Heart rate Body temperature Respiratory rate Systolic And Diastolic Provider Name and Address Organization Details Last Updated DateTime 01/14/2025 81 /min 98.6 [degF] 16 /min 135/75 mm[Hg] Not Available [employer] 5 11:28:34 Social History None recorded. Functional Status None recorded. Mental Status None recorded. Family History Nothing Reported. Medical History No medical history recorded. Gynecological HistoryNo gynecological history recorded. Obstetrics History GPAL:G 0 P 0 0 0 0 Past Encounters Encounter ID Performer Location Encounter Start Date Encounter Closed Date Diagnosis/Indication Diagnosis SNOMED-CT Code Diagnosis ICD10 Code Diagnosis IMO Codes Diagnosis Note [id number] Dante Brown MD [facility] - [address] [address] 02/04/2022 17:39:01 02/04/2022 17:44:57 [id number] Ana Luisa Fari MD Main - [address] [address] 02/13/2022 11:18:20 02/13/2022 11:46:05 [id number] Dante Brown MD Main - [address] [address] 04/20/2022 16:19:49 04/22/2022 11:04:34 Viral upper respiratory tract infection 113976644 J06.9 This 61-year-ol d female called [facility] with symptoms of a URI. Her COVID-19 and flu screens were negative and she did not appear to be acutely ill. I recommende d symptomati c treatment and she will follow-up with her PCP if her symptoms persist. The patient agreed with this plan. [id number] Jah Vasquez MD [facility] - [address] [address] 05/19/2022 15:42:35 05/21/2022 10:52:46 COVID-19 907231248 U07.1 [id number] Nidia Morales MD [facility] - [address] [address] 05/27/2022 14:04:20 05/29/2022 10:25:07 Pneumonia 048527533 J18.9 61yo PMHx ?seizure activity, HTN, CKD, [...] assessment and plan as documented by the deicer kit assembler. I provided real time medical direction for this encounter and was immediatel y available to provide additional phone based assistance as needed. [id number] David Guerrero MD [facility] - [address] [address] 05/14/2023 15:50:47 05/18/2023 12:06:52 Cough [id number] R05.9 [id number] Natalie Whipple MD Main - [address] [address] 07/07/2023 15:01:51 07/08/2023 09:28:47 Acute low back pain 925649986 M54.50 On top of chronic advised needs [...] her best interest History of rectal bleeding [id number] 6711755 Z87.19 We do not have the ability to do stool guaiac and although her H&H is currently stable I am concerned with her taking ibuprofen while on Coumadin-a dvised needs workup for GI bleeding. [id number] Ana Luisa Fair MD Main - [facility] [address] [place] [address] 08/03/2023 11:25:58 08/03/2023 20:10:35 Acute exacerbation of chronic obstructive pulmonary disease 568512203 J44.1 [id number] Natalie Whipple MD Main - [facility] [address] [place] [address] 09/16/2023 11:10:45 09/19/2023 12:06:57 Dizziness 706932427 R42 Prolonged postictal symptoms / cannot r/o new CVA vs bleed given unsteadine ss, increased right hemiparesi s and patient is a large fall risk- advised patient need for emergent CT brain-hypo glycemia is not the issue here. Explained to patient the need for emergent evaluation and she agreed. Report called [place] [facility] [place] [id number] Josefina Irizarry MD Main - [facility] [address] [place] [address] 11/30/2023 14:12:32 11/30/2023 18:23:22 Abdominal pain 47125110 R10.9 63 year old female with iron [...] assessment and plan as documented by the deicer kit assembler. I provided real-time medical direction for this encounter and was immediatel y available to provide additional phone-base d assistance as needed. We discussed the diagnostic uncertaint y of home visits and associated risks. We discussed the need to seek care urgently/e mergently in the setting of any new or worsening symptoms. [id number] David Guerrero MD [facility] - [address] [address] 08/17/2024 16:01:29 08/17/2024 19:17:31 Contusion of right rib [id number] 7101 S20.211A [id number] Natalya Ayala MD [facility] [address] [address] 10/25/2024 16:49:12 10/25/2024 21:09:19 Acute abdominal pain 592424570 R10.9 97726 Mild dehydration 6227241 119 108 E86.0 [id number] Nidia Morales MD [facility] [address] [address] 11/22/2024 14:19:34 11/22/2024 22:11:44 Rib pain 390365058 R07.81 [id number] Evaluation in the field was performed by my deicer kit assembler colleague, as noted above, I provided real-time [...] shortness of breath, cough, chest pain, fever. [id number] CORINA VILLASEÑOR MD [facility] ED Medical [address] [address] 01/14/2025 11:28:26 01/14/2025 16:16:25 [facility] [id number] R73.9 [id number] Health Concerns Section Related Observation LastModified by Organization Detai ls LastModified Time None Recorded Concern Status LastModified by Organization Details LastModified Time None Recorded Advance Directives Directive None Recorded Payers Insurance Date Sequence Insurance Name Policy Number Policy Gorman Covered Member ID Gorman Member ID Guarantor Name 09/16/2023 1 [facility] - DOS PRIOR TO 2022 - DUAL ELIGIBLE (MEDICARE REPLACEMENT/AD VANTAGE - HMO) Jennifer Schulz [id number] Jennifer Schulz 01/14/2025 1 [facility] - DOS ON OR AFTER 2022 - DUAL ELIGIBLE - [facility] OPTIONS AND ONE CARE (MEDICARE REPLACEMENT/AD VANTAGE - HMO) Jennifer Schulz [id number] Jennifer Schulz Notes Date Note Type Note Provider Name and Address Organization Details Recorded Time 11/30/2023 text/html HPI: Patient calls PCP today to state last she had an allergic reaction to her Iron infusion at [facility]. She tells me Alecia CARTER (her kidney provider-ordering provider for the iron) is aware that this happened. She now needs to get her iron infusions at [facility], not [facility], because the kidney care staff told her they are switching service providers to [facility]. She got a bag of iron at [facility] when she typically gets a 10 min push at [facility]. She was instructed to take [...] ...................... ...................... ...................... ...................... ...................... ...................... ......... Sex Therapist Note From Cas Robledo: Pt reports while [...] ...................... ...................... ...................... ...................... ......... Disposition: Marry Irizarry MD [address] [facility],[address], [place], [address], [employer] 11/30/2023 15:28:40 08/17/2024 text/html ROS as noted in the HPI This was a supervised home visit with deicer kit assembler Enzo Slowinski. HPI: 63-year-old woman with type 2 diabetes [...] Type 2, Stroke PMH Reviewed at 08/17/2024 14:05 Allergies Reviewed at 08/17/2024 - 14:05 Comments: Reviewed HPI, will place referral for pain evaluation/treat as indicated. Radha SHAY ...................... ...................... ...................... ...................... ...................... ...................... ......... Sex Therapist Note From Enzo Ortiz: Dispatched to above [...] radial pulse, skin pink warm and dry. [facility] contacted, spoke with Dr. Guerrero, advised of patient complaints and exam findings. [facility] orders 30mg Toradol given IM, will prescribe Lidocaine patches. Patient administered 30mg Toradol IM. Patient advised of red flags home care and need for follow up. Patient agrees with this plan, will follow up with PCP tomorrow after x-ray. Patient has no additional questions or concerns at this time. SC8 clear. EOR. [facility] Medication Orders: ketorolac 60 mg/2 mL intramuscular solution: Administered ...................... ...................... ...................... ...................... ...................... ...................... ......... [facility] Consulted: David Guerrero ...................... ...................... ...................... ...................... ...................... ...................... ......... Disposition: Marry Guerrero MD [address] [facility], [place], [address], [employer] 08/17/2024 18:11:36 10/25/2024 text/html HPI: 63 y/o femalePatient called to PCP with reports of vomiting over the last 12 hours. Patient reports headache. Patient states that she is unable to eat due to nausea. ...................... ...................... ...................... ...................... ...................... ...................... ......... [facility] Nurse Triage Notes (Maile Hardy): Chief Complaints: Headache, Nausea / Vomiting PMH: Hypertension, Congestive Heart Failure, COPD/Asthma, Diabetes Mellitus Type 2, Stroke PMH Reviewed at 10/25/2024:16 Allergies Reviewed at 10/25/2024:16 Comments: HPI reviewed.[facility] HPI: 3d abdominal discomfort and today a few episodes of vomiting. a little diarrhea. no fever. no melena or hematochezia, or hematemesis. reports drinking Sex Therapist Organization Information for [employer] Name: [email or web address] Address: [address] [place] [address], Data Entry Clerk: Noel Castano MD CLIA No.: [id number] Sex Therapist POC Test Results from [employer] - [...] ...................... ...................... ...................... ...................... ...................... ...................... ......... Sex Therapist Note From Yakov Marks: SC12 dispatched to [...] management. Patient vital signs obtained as noted. [facility] consulted, provided orders for COVID/FLU POC tests, [...] BMP performed as noted and uploaded to [employer]. Patient advised that she could not provide a urine sample after fluids were administered, [facility] advised to disregard UA/Culture. Patient reports improvement in symptoms with treatments listed above. IV was removed at end of visit, bandaged with gauze and bleeding controlled. Red flags discussed with patient, advised to call 911 if she experiences any life threatening symptoms. SC12 Clear. [facility] Lab Orders: culture, urine: Not Performed Comment: Patient unable to provide urine urinalysis, dipstick: Not Performed Comment: Patient unable to provide urine respiratory pathogens DNA + RNA panel, DONOVAN+probe, nasopharynx: Performed BMP, serum or plasma: Performed ...................... ...................... ...................... ...................... ...................... ...................... ......... [facility] Consulted: Natalya Ayala ...................... ...................... ...................... ...................... ...................... ...................... ......... Disposition: Fulfilled Natalya Ayala MD [address] [facility], [place], [address], [employer] 10/25/2024 18:55:25 11/22/2024 text/html HPI: 64 y/o [...] ...................... ...................... ...................... ...................... ...................... ...................... ......... [facility] Nurse Triage Notes (Lizz Peace): Reason For Request: abd pain Chief Complaints: Abdominal Pain PMH: Hypertension, Congestive Heart Failure, COPD/Asthma, Diabetes Mellitus Type 2, Stroke PMH Reviewed at 11/22/2024:50 Allergies Reviewed at 11/22/2024 09:50 Comments: HPI reviewed ...................... ...................... ...................... ...................... ...................... ...................... ......... Sex Therapist Note From Hank Donny: Patient alert and oriented seated in chair. [...] full sentences, abdomen, soft, nontender, extremities unremarkable. [facility] discusses contraindications to Toradol. Supportive care alternatives mentioned, patient rejects conversation and ends visit. Patient heard to be calling PCP office. ...................... ...................... ...................... ...................... ...................... ...................... ......... [facility] Consulted: Nidia Morales ...................... ...................... ...................... ...................... ...................... ...................... ......... Disposition: Fulfilled Nidia Morales MD [address] [facility],[address], [place], [address], [employer] 11/22/2024 15:41:36 01/14/2025 text/html ROS as noted in the HPI HPI: 64 yo F with PMHx type 2 [...] as prescribed. Fasting BG this morning 347. ...................... ...................... ...................... ...................... ...................... ...................... ......... [facility] Nurse Triage Notes (Tana Zafar): Chief Complaints: Diabetes Related PMH: Hypertension, Congestive Heart Failure, COPD/Asthma, Diabetes Mellitus Type 2, Stroke, Chronic Kidney Disease, Cigarette Smoker, Epilepsy/Seizure Disorder, Hyperlipidemia PMH Reviewed at 01/14/2025 - :20 Allergies Reviewed at 01/14/2025 - 09:20 Comments: HPI reviewed Per care team- Her polyuria, polydipsia, TRACY, along with hyperglycemia are concerning for DKA. Advise [facility] visit to check blood pH and UA to assess for ketones. Assess for need for IVF if signs of dehydration. Sex Therapist Organization Information for [employer] Legal Name: [employer]. Address: [address] [place] [address], Data Entry Clerk: Noel BOATENG No.: [id number] Sex Therapist POC Test Results from [employer] iSTAT Chem8+ (11:22:39) Na: 139mEq/LK: 4.5mEq/LCl: 103mEq/LiCa: 1.19mmol/LTCO2: 27mmol/LGlu: 285mg/dLBUN: 15mg/dLCrea: 1.1mg/dLHct: 37%Hb: 12.6g/dLA.6mmol/LCartridge Number: --- Attachments uploaded as part of this test result can be found under Documents section. Urine Dipstick (11:35:25) Urine leukocytes: -WILMA Urine nitrites: -NIT Urine urobilinogen: 0.2(3.5)URO Urine protein: 15(0.15)PRO Urine pH: 5.0pH Urine blood: 6.5BLO Urine specific gravity: 1.015SG Urine ketones: -KET Urine bilirubin: -JOSSELYN Urine glucose: ++++GLU Attachments uploaded as part of this test result can be found under Documents section. ...................... ...................... ...................... ...................... ...................... ...................... ......... Sex Therapist Note From [employer]: Dispatched for a 64yo female with concerns for DKA. Pt states her bgl has been over 300 for a week. Pt states she has had increased thirst and urination. Pt states she has been consuming 10-15 bottles of water a day. Pt denies any recent infections. Pt denies h/a, dizziness, cp, sob or nausea. Pt states normal po intake and bathroom use. [facility] consulted. BMP and urine dip ordered. Pt states she has follow up appointment this upcoming week with pcp. Pt informed of red flags. Pt found seated and speaking in full clear sentences. AO and GCS-15. PERRL. Skin pale/dry. Airway open and lung sounds clear. ABD soft nontender. BGL-285 and glucose: ++++ on urine dip. Rest of labs unremarkable. Rest of exam unremarkable. [facility] Lab Orders: BMP, serum or plasma: Performed urinalysis, dipstick: Performed ...................... ...................... ...................... ...................... ...................... ...................... ......... [facility] Consulted: Corina Villaseñor ...................... ...................... ...................... ...................... ...................... ...................... ......... Disposition: Fulfilled CORINA VILLASEÑOR MD [address] [facility],[address], [place], [address], [employer] 01/14/2025 12:11:22 OBGyn Episode No OBEpisode recorded.
== END 2025-03-06 13:22 | disposition home or self-care (01) ==
LOC: HO.HSMS 12:43
PROVIDERS: PCP Internal Medicine; Visit Provider Psychiatry & Neurology Neurology
DX: R25.1 Tremor, unspecified (principal); F44.5 Conversion disorder with seizures or convulsions; Z95.828 Presence of other vascular implants and grafts; Z98.890 Other specified postprocedural states
CPT/HCPCS: 99214; G2211

== ENCOUNTER → 2025-03-06 12:43 | Outpatient (BNVA) | payer OTHER, SELFPAY | PROVIDERS: PCP Internal Medicine; Visit Provider Psychiatry & Neurology Neurology | DX: F44.5 Conversion disorder with seizures or convulsions (principal); R25.1 Tremor, unspecified; E11.9 Type 2 diabetes mellitus without complications; F17.210 Nicotine dependence, cigarettes, uncomplicated | CPT/HCPCS: 99212 ==

== ENCOUNTER 2025-03-19 09:21 | Outpatient (AMB) | payer OTHER, SELFPAY ==
[2025-03-19 09:38] LABS: Prothrombin Time Whole Bld POC 35.2 sec (11.1-13.5); ~PT, ~INR - Anti Coag Clinic 2.9 (0.9-1.1)
--- NOTE | 2025-03-19 09:42 | MHC.OFFVISCO ---
Intake Intake Visit Reasons: Anticoagulation Allergies codeine (Codeine) Allergy (Severe, Verified 03/19/25 09:29) DIFFICULTY BREATHING Penicillins Allergy (Severe, Verified 03/19/25 09:29) RASH penicillin V Allergy (Intermediate, Verified 03/19/25 09:29) RASH tramadol (Ultram) Allergy (Unknown, Verified 03/19/25 09:29) hallucinations Shellfish Allergy (Severe, Uncoded 03/19/25 09:29) THROAT SWELLING Contrast Allergy PreMed Pack Allergy (Unknown, Uncoded 03/19/25 09:29) TREAT WITH BENADRYL ferrlecit Adverse Reaction (Intermediate, Uncoded 03/19/25 09:29) Rash Medication List - Last Reconciled 03/19/25 by Tonia Angeles, RN alcohol swabs 2 pad topical DAILY blood sugar diagnostic As directed budesonide (Pulmicort) 0.25 mg inhalation BID clonidine HCl 0.1 mg PO BID dapagliflozin propanediol (Farxiga) 5 mg PO DAILY divalproex ER 250 mg PO TID 30 days docusate sodium (Colace) 100 mg PO DAILY duloxetine (Cymbalta) 30 mg PO DAILY duloxetine 60 mg PO QAM epoetin marj (Procrit) 2,000 units subcut 3XW hydrocortisone 2.5% appl topical insulin glargine (Lantus Solostar U-100 Insulin) 5 units subcut DAILY ipratropium-albuterol 0.5 mg-3 mg(2.5 mg base)/3 mL mL inhalation ipratropium-albuterol 20-100 mcg/actuation 1 puff PO QID ipratropium-albuterol 20-100 mcg/actuation (Combivent Respimat) 1 puff inhalation Q4H lancets As directed lancets As directed latanoprost 0.005% drps ophthalmic (eye) linaclotide (Linzess) 145 mcg PO DAILY linagliptin (Tradjenta) 5 mg PO DAILY pbfvfl-ezqszmtc-hnlbili (pork) 24,000-76,000 -120,000 unit (Creon) 1 cap PO TID loratadine 10 mg PO DAILY PRN lorazepam 1 mg PO BID meclizine mg PO montelukast 10 mg PO BEDTIME nifedipine ER 30 mg PO DAILY nitroglycerin 0.4 mg sublingual Q5M PRN nystatin 1 appl topical DAILY PRN ondansetron 4 mg PO Q8H PRN oxcarbazepine (Trileptal) 150 mg PO Q12H 30 days pen needle, diabetic (Ultra-Fine Pen Needle) As directed quetiapine 200 mg PO BEDTIME rabeprazole 20 mg PO DAILY ropinirole 0.25 mg PO BEDTIME rosuvastatin 40 mg PO DAILY sodium chloride 0.65% (Deep Sea Nasal) sprays intranasal Q2H PRN triamcinolone acetonide 0.1% appl topical warfarin 2.5 mg See Protocol PO DAILY Nursing Note Pt to [facility] with a letter from the [facility] to show certificate of blindness. Pt states she will be getting a walking cane for the visually impaired. INR: 2.9 in therapeutic range of 2-3 Medications and supplements reviewed No changes in health, diet, medications, or supplements, Denies any signs and symptoms of bleeding or bruising or clotting. Bleeding, bruising, clotting discussed Nutritional guidance given Dose: keep same dose of 5mg X 5 days and 3.75mg X 2 days (Wed/Wed) F/U INR: 1 week Patient verbalizes understanding of instructions given Anti-Coag Initial Assessment Social Hx Patient Tobacco Use Status: Current everyday Tobacco user alcohol intake: never Coding Level of Care Code Est Patient Level 1 Diagnoses Current use of anticoagulant therapy Z79.01 Assessment & Plan Assessment & Plan (1) Current use of anticoagulant therapy: Code(s): Z79.01 - police justice (current) use of anticoagulants Category: Medical
--- OUTSIDE RECORDS SUMMARY | 2025-03-19 10:27 | XMS_ITS | Continuity of Care Document ---
Author Name [facility], Medical Address [address] [place] [id number] Organization Unknown Address [address] [place] [address] Medications No known medications Problems No known problems
--- OUTSIDE RECORDS SUMMARY | 2025-03-19 10:27 | XMS_ITS | Clinical Summary ---
Author Organization [address] [facility] Address [address] [place] [address] Phone Care Team Providers Care Electrical Solderer Name Role Phone Sahra Son MD Primary Care Provider + Surgical History Surgery Date Site/Laterality Comments OTHER SURGICAL HISTORY 1975 PROCEDURE: [place] ECTOPIC ABDOMINAL/VAGINAL APPR PARTIAL HYSTERECTOMY PROCEDURE: AL SUPRACERVICAL ABDL HYSTER W/WO RMVL TUBE OVARY CHOLECYSTECTOMY 1982 PROCEDURE: HISTORICAL CHOLECYSTECTOMY CARPAL TUNNEL RELEASE 11/21/2014 Left PROCEDURE: HISTORICAL CARPAL TUNNEL REL BOWEL RESECTION 03/2004 PROCEDURE: HISTORICAL BOWEL RESECTION; COMMENT: bowel obstruction Medical History Medical History Date Comments Diverticulosis DX:Diverticulosi s CHF (congestive heart failur e) ([facility] V24, [facility] V28) DX:CHF (congestive heart fa ilure) ([facility]) COPD (chronic obstructive pu lmonary disease) ([facility] V24, [facility] V28) DX:COPD (chronic o bstructive pulmonary disease) ([facility]) Osteoporosis DX:Osteoporosis Fibromyalgia DX:Fibromyalgia Myelofibrosis ([facility] V24, [facility] V28) DX:Myelofibrosis ([facility]); COMM ENT: diagnosed 8 years ago, follows with DR layne Meningioma ([facility] V24, [facility] V28) DX:Meningioma ([facility]) Asthma DX:Asthma Gout DX:Gout Seizures ([facility] V24, [facility] V28) DX:Seizures ([facility]) Lupus DX:Lupus Depression DX:Depression; C OMMENT: follows at [facility] net at [facility] Hypercoagulable state ([facility] V24) DX:Hypercoagulable state ([facility]); COMMENT: on coumadin Neurogenic bladder DX:Neurogenic bladder; COMMENT: flowers dependent Supplemental oxygen dependent DX :Supplemental oxygen dependent Lung nodule 03/22/2017 DX:Lung nodule ALESSANDRA (obstructive sleep apnea) 03/22/2017 DX :ALESSANDRA (obstructive sleep apnea) GERD (gastroesophageal reflux disease) 03/22/2017 DX:GERD (gastroesophageal reflux disease) Anxiety 03/22/2017 DX:Anxiety Dementia ([facility] V24, [facility] V28) 03/22/2017 DX:Dementia (HCC) Schizophrenia ([facility] V24, [facility] V28) 03/22/2017 DX:Schizophrenia ([facility]) Glaucoma 03/22/2017 DX:Glaucoma History of stroke DX:History of stroke History of deep vein thrombosis DX:History of deep vein thrombosis Coronary artery disease DX:Coron christine artery disease; COMMENT: Old [place] Diabetes mellitus type 2 wit h neurological manifestations ([facility] V24, [facility] V28) DX:Diabetes mellitus type 2 with neurological manifestations ([facility]) Leukemia ([facility] V24, [facility] V28) 09/02/2017 DX:Leukemia ([facility]) MDS (myelodysplastic syndrom e) ([facility] V24, [facility] V28) 09/02/2017 DX:MDS (myelodysplastic syn drome) ([facility]) Hyperthyroidism 09/02/2017 DX:Hyperthyroidi sm History [...] 07/25/2025 9:50 AM EDT Consult Gastroenterology - [address] [place] [address] Deloris Vickers PA [address] [place] [address] Health Maintenance Due Date Last Done Comments [...] Immunization Adult Patie nts (1 - Risk 50-74 years 1-dose series) 11/07/2009 Cholesterol Screening (Lipid Panel) 04/19/2022 Hepatitis C [...] patient's age to complete this topic Insurance [facility] Member Subscriber Plan / Payer (Ef fective 2024-Present) Name:Jennifer Schulz Relation to Subscriber:Self Name:Jennifer Schulz Payer ID:[id number] Group ID:[id number] Type:Not on file Address: [place] [address] [place] [phone] Care Teams Electrical Solderer Relationship Specialty Start Date End Date Sahra Son MD [address] [place] [address] [phone] PCP - General Internal Medicine 11/15/24
--- OUTSIDE RECORDS SUMMARY | 2025-03-19 10:27 | XMS_ITS | Clinical Summary ---
Author Organization [facility] Address [address] [place] [address] Care Team Providers Care Key Filer Name Role Phone Geovani Natalie Carmelo ESPARZA Primary Care Provider [phone] Allergies Active Allergy Reactions Criticality Noted Date [...] 1 10/04/2016 Active ergocalciferol (VITAMIN D2) capsule 34206 units TK ONE C PO TWICE A [...] times a day. 0 04/27/2022 Active pancrelipase, Aci-Znqm-Qwrj, (Creon) [address] units CPEP TK ONE C PO TID [...] age to complete this topic Care Teams Key Filer Relationship Specialty Start Date End Date Natalie Olivo APRN [address] [place] [address] PCP - General Chiller Hand 04/30/22
--- OUTSIDE RECORDS SUMMARY | 2025-03-19 10:28 | XMS_ITS | Data Portability ---
Author Organization [employer] [facility], [facility] Address [address] [place] [address] Care Team Providers Care Tunnel Kiln Firer Name Role Phone HIM CCA OTHER CORNELL SON Primary Care Provider Assessment Encounter Date Assessment Date Assessment LastModified by Organization Details LastModified Time 08/17/2024 08/17/2024 I have reviewed and agree with the assessment and plan as documented by the legal administrative assistant. I provided real time medical direction for this encounter and was immediately available to provide additional phone based assistance as needed. History as noted by legal administrative assistant. Pt with history of type 2 diabetes [...] in the field was performed by my legal administrative assistant colleague, as noted above, I provided real-time [...] infectious sx. 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 Lungs are clear. No c/f [...] Assessment and Plan as documented by the Occupational Health Professional. We discussed the diagnostic uncertainty of home [...] of instruction. [email or web address] Not available 01/14/2025 12:02:19 03/12/2025 03/12/2025 I provided real -time medical direction via phone for this encounter, and was available for additional phone based assistance as needed. I have reviewed and agree with the Assessment and Plan as documented by the Occupational Health Professional. We discussed the diagnostic uncertainty of home visits and the risk associated with this. In this case the patient and I felt this to be an acceptable and reasonable amount of risk given the benefit of avoiding an ED visit advised if symptoms worsen she will need to go in, red flags reviewed as below.. The patient given the opportunity to ask questions. Advised close f/u with pcp ( Dr. Prudencio Son) and neuro- call today -if develops CP/severe SOB/turning blue/uncontrolled n/v/d or black/bloody emesis or stool/ severe H/a/ falls /sz/ AMS/ syncope/ hi fever to call 911- verbalized understanding of instruction [email or web address] Not available 03/13/2025 00:03:38 Plan of Treatment Reminders Order Date Submit Date Provider Last Modified By Organization Details Last Modified Time Details Appointments None recorded. Lab BMP, serum or plasma 2024 [facility], [address] [place] [address], [id number] 20:17:58 BMP, serum or plasma 2024 [facility], [address] [place] [address], [id number] 12:20:09 urinalysis, dipstick 2024 [facility], [address] [place] [address], [id number] 12:20:09 culture, urine [facility] - [facility]), Patient Can Go To The Location Of Their Choice, [facility] 08:25:21 urinalysis, dipstick 2024 [facility], [address] [place] [address], [id number] 20:21:31 respiratory pathogens DNA + RNA panel, DONOVAN+probe, nasopharynx 2024 [facility] - [facility]), Patient Can Go To The Location Of Their Choice, [facility] 18:18:02 BMP, serum or plasma 2024 025 [facility], [address] [place] [address], [id number] 20:21:31 Referral None recorded. Procedures None recorded. Surgeries None recorded. Imaging electrocard iogram 2024 [facility], [address] [place] [address], [id number] 12:07:41 Medication Orders lactated Ringers intravenous solution 2024 [id number], [address], [place], [id number], 5 16:57:07 ondansetron HCl (PF) 4 mg/2 mL injection solution 2024 025 [facility][id number], [address], [place], [id number], 5 16:57:04 ketorolac 60 mg/2 mL intramuscul ar solution 2024 025 [facility] #35765, [address], [place], [id number], 5 16:08:53 lidocaine 4 % topical patch 2024 025 [facility] #23857, [address], [place], [id number], 16:08:59 Patient TargetsNo targets recorded. Patient InstructionsNo instructions recorded. Reason for Referral None Reported. Results Created Date Observation Date Name Description Value Unit Range Abnormal Flag Note LastModifiedBy Organization Detail LastModifiedTime 03/12/2003/12/2025 hodan villafana am No observ ation record ed. [facility] [address], [phone] 03/12/2025 19:14:50 Result Notes None recorded. Medical Equipment None Reported. Allergies Allergen ID Allergen Name Allergen Category Reaction Reaction Severity Criticality Documentation Date Start Date Code Code System Note Provider Name and Address Organization Details Recorded Time 7 codeine medicatio n Not available Not available Not available 05/27/2022 2670 RxNorm Not Available [facility] - production 14:05:30 1748 shellfish derived food,medi cation Not available Not available Not available 05/27/2022 Nidia Morales MD [address] [place] [address],[address], [place], [address] , [facility], [facility] 3 14:08:14 1749 Product containin g penicilli n (product) medicatio n Not available Not available Not available 05/27/2022 42635 8001 SNOMED Not Available [facility] - production 4 03:41:45 35293 tramadol medicatio n hallucina tions Not available Not available 03/12/2025 53159 RxNorm Not Available [facility] - production 5 09:25:06 60627 iron sucrose Not available Not available Not available Not available 03/12/20252023 01362 RxNorm Cough ing fit infus ion stopp ed at [facility] Natalie Whipple MD [address] [facility],[address], [place], [address], [employer] 5 11:14:54 96695 ferumoxyt ol medicatio n dyspnea itching other Not available Not available Not available [facility] 03/12/20252021 13090 7 RxNorm Bone s hurt Natalie Whipple MD [address] [place] [address],[address], [place], [address], [employer] 5 11:15:24 43041 trazodone medicatio n Not available Not available Not available 03/12/20252017 17761 RxNorm Not Available [facility] - [employer] - prod 5 11:23:33 4589 morphine medicatio n Not available Not available Not available 07/07/2023 7052 RxNorm Natalie Whipple MD [address] [place] [address],[address], [place], [address], [employer] 4 15:03:14 4590 Iodinated contrast media (substanc e) medicatio n Not available Not available Not available 07/07/2023 90005 2003 SNOMED Natalie Whipple MD [address] [place] [address],[address], [place], [address], [employer] 4 15:03:26 Medications Name Sig Start Date [...] [degF] 16 /min 140/64 mm[Hg] Not Available [employer] 5 16:01:31 Date Recorded Body temperature Heart rate Oxygen saturation Oxygen saturation in Arterial blood by Pulse oximetry Respiratory rate Systolic And Diastolic Provider Name and Address Organization Details Last Updated DateTime 5 98.3 [degF] 94 /min 98 % 98 % 18 /min 158/80 mm[Hg] Not Available [employer] 5 16:49:15 Date Recorded Oxygen saturation Oxygen saturation in Arterial blood by Pulse oximetry Heart rate Body weight Body temperature Respiratory rate Body height Systolic And Diastolic Provider Name and Address Organization Details Last Updated DateTime 5 96 % 96 % 90 /min 11312.4 g 98 [degF] 14 /min 167.64 cm 148/92 mm[Hg] Not Available [employer] 5 14:19:37 Date Recorded Heart rate Body temperature Respiratory rate Systolic And Diastolic Provider Name and Address Organization Details Last Updated DateTime 01/14/2025 81 /min 98.6 [degF] 16 /min 135/75 mm[Hg] Not Available [employer] 5 11:28:34 Date Recorded Respiratory rate Heart rate Body height Oxygen saturation Oxygen saturation in Arterial blood by Pulse oximetry Body temperature Body weight Systolic And Diastolic Provider Name and Address Organization Details Last Updated DateTime 5 16 /min 86 /min 170.18 cm 98 % 98 % 98.7 [degF] 90460.3 2 g 159/94 mm[Hg] Not Available [employer] 5 11:02:21 Social History None recorded. Functional Status None [...] Codes Diagnosis Note [id number] Dante Brown MD [facility] - [address] [address] 02/04/2022 17:39:01 02/04/2022 17:44:57 [id number] Ana Luisa Fair MD [facility] - [address] [address] 02/13/2022 11:18:20 02/13/2022 11:46:05 5856 Dante Brown MD [facility] - [address] [address] 04/20/2022 16:19:49 04/22/2022 11:04:34 Viral upper respiratory tract infection [id number] J06.9 This 61-year-ol d female called [facility] with symptoms of a URI. Her COVID-19 and flu screens were negative and she did not appear to be acutely ill. I recommende d symptomati c treatment and she will follow-up with her PCP if her symptoms persist. The patient agreed with this plan. 6701 Jah Vasquez MD [facility] - [address] [address] 05/19/2022 15:42:35 05/21/2022 10:52:46 COVID-19 [id number] U07.1 6944 Nidia Morales MD [address] [address] 05/27/2022 14:04:20 05/29/2022 10:25:07 Pneumonia 601556686 J18.9 61yo PMHx ?seizure activity, HTN, CKD, [...] assessment and plan as documented by the legal administrative assistant. I provided real time medical direction for this encounter and was immediatel y available to provide additional phone based assistance as needed. [id number] David Guerrero MD Main - [facility] [address] [place] [phone] 05/14/2023 15:50:47 05/18/2023 12:06:52 Cough 26035785 R05.9 Natalie Whipple MD Main - [facility] [address] [place] [address] 07/07/2023 15:01:51 07/08/2023 09:28:47 Acute low back pain 513523638 M54.50 On top of chronic advised needs [...] her best interest History of rectal bleeding 8450425262 1163556 Z87.19 We do not have the ability to do stool guaiac and although her H&H is currently stable I am concerned with her taking ibuprofen while on Coumadin-a dvised needs workup for GI bleeding. [id number] Ana Luisa Fair MD Main - [facility] [address] [place] [address] 08/03/2023 11:25:58 08/03/2023 20:10:35 Acute exacerbation of chronic obstructive pulmonary disease 518681517 J44.1 [id number] Natalie Whipple MD Main - [facility] [address] [place] [address] 09/16/2023 11:10:45 09/19/2023 12:06:57 Dizziness 615582643 R42 Prolonged postictal symptoms / cannot r/o new CVA vs bleed given unsteadine ss, increased right hemiparesi s and patient is a large fall risk- advised patient need for emergent CT brain-hypo glycemia is not the issue here. Explained to patient the need for emergent evaluation and she agreed. Report called [place] [facility] [place] [id number] Josefina Irizarry MD Main - [facility] [address] [place] [address] 11/30/2023 14:12:32 11/30/2023 18:23:22 Abdominal pain 24247830 R10.9 63 year old female with iron [...] assessment and plan as documented by the legal administrative assistant. I provided real-time medical direction for this encounter and was immediatel y available to provide additional phone-base d assistance as needed. We discussed the diagnostic uncertaint y of home visits and associated risks. We discussed the need to seek care urgently/e mergently in the setting of any new or worsening symptoms. [id number] David Guerrero MD Main - [facility] [address] [place] [address] 08/17/2024 16:01:29 08/17/2024 19:17:31 Contusion of right rib [id number] 7101 S20.211A [id number] Natalya Ayala MD [facility] ED Medical [address] [address] 10/25/2024 16:49:12 10/25/2024 21:09:19 Acute abdominal pain 943255180 R10.9 49235 Mild dehydration 1242690 119 108 E86.0 [id number] Nidia Morales MD [facility] Medical [address] [address] 11/22/2024 14:19:34 11/22/2024 22:11:44 Rib pain 908666575 R07.81 73362 Evaluation in the field was performed by my legal administrative assistant colleague, as noted above, I provided real-time [...] shortness of breath, cough, chest pain, fever. [id number] CORINA VILLASEÑOR MD [facility] ED Medical [address] [address] 01/14/2025 11:28:26 01/14/2025 16:16:25 Hyperglycemia 58531135 R73.9 35954 [id number] Natalie Whipple MD Main-[facility] ED Medical [address] [address] 03/12/2025 11:02:16 03/13/2025 00:34:24 Dizziness 734795790 R42 99823 electrolyt es nl/ not dehydrated / is hyperglyce yolis- has not had am insulin - only coffee this am- will take SS dose as Rx'd Discussed with patient this is potentiall y a reaction to the Depakote- we cannot rx new sz meds- up to neurology- hold depakote as s/s started w/ the medication /turn head slowly/ change positions slowly/ use walker when up to prevent falls take meclizine and zofran as directed/a dvised to stay hydrated with sf clear liquids/ toast/ very light diet- avoid caffeine as can be gi irritant /patient is agreeable with the plan and understand s the red flags. Health Concerns Section Related Observation LastModified by Organization Detai ls LastModified Time None Recorded Concern Status LastModified by Organization Details LastModified Time None Recorded Advance Directives Directive None Recorded Payers Insurance Date Sequence Insurance Name Policy Number Policy Gorman Covered Member ID Gorman Member ID Guarantor Name 09/16/2023 1 [facility] - DOS PRIOR TO 2022 - DUAL ELIGIBLE (MEDICARE REPLACEMENT/AD VANTAGE - HMO) Jennifer Schulz [id number] Jennifer Schulz 03/12/2025 1 [facility] - DOS ON OR AFTER 2022 - DUAL ELIGIBLE - ASSISTED OPTIONS AND ONE CARE (MEDICARE REPLACEMENT/AD VANTAGE - HMO) Jennifer Schulz [id number] Jennifer Schulz Notes Date Note Type Note Provider Name and Address Organization Details Recorded Time 08/17/2024 text/html ROS as noted in the HPI This was a supervised home visit with legal administrative assistant Enzo Ortiz. HPI: 63-year-old woman with type [...] ...................... ...................... ...................... ...................... ...................... ...................... ......... Occupational Health Professional Note From Enzo Ortiz: Dispatched to above [...] pulse, skin pink warm and dry. [facility] contacted, spoke with Dr. Guerrero, advised of patient complaints and exam findings. [facility] orders 30mg Toradol given IM, will prescribe Lidocaine patches. Patient administered 30mg Toradol IM. Patient advised of red flags home care and need for follow up. Patient agrees with this plan, will follow up with PCP tomorrow after x-ray. Patient has no additional questions or concerns at this time. SC8 clear. EOR. [facility] Medication Orders: ketorolac 60 mg/2 mL intramuscular solution: Administered ...................... ...................... ...................... ...................... ...................... ...................... ......... [facility] Consulted: David Guerrero ...................... ...................... ...................... ...................... ...................... ...................... ......... Disposition: Fulfilled David Guerrero MD [address] [facility],[address], [place], [address], APARNA Obando JUANCARLOS NAZANIN 08/17/2024 18:11:36 10/25/2024 text/html HPI: 63 y/o femalePatient called to PCP with reports of vomiting over the last 12 hours. Patient reports headache. Patient states that she is unable to eat due to nausea. ...................... ...................... ...................... ...................... ...................... ...................... ......... [facility] Nurse Triage Notes (Maile Hardy): Chief Complaints: Headache, Nausea / Vomiting PMH: Hypertension, Congestive Heart Failure, COPD/Asthma, Diabetes Mellitus Type 2, Stroke PMH Reviewed at 10/25/2024 13:16 Allergies Reviewed at 10/25/2024 - 13:16 Comments: HPI reviewed.[facility] HPI: 3d abdominal discomfort and today a few episodes of vomiting. a little diarrhea. no fever. no melena or hematochezia, or hematemesis. reports drinking Occupational Health Professional Organization Information for Yakov Marks [employer] Legal Name: [employer]. Address: [address] [place] [address], Unemployment Specialist: Noel Castano MD [place] No.: [id number] Occupational Health Professional POC Test Results from [employer] [facility] COVID antigen (17:14:29) COVID: - Attachments [...] ...................... ...................... ...................... ...................... ...................... ...................... ......... Occupational Health Professional Note From Yakov Marks: SC12 dispatched to [...] Patient vital signs obtained as noted. [facility] consulted, provided orders for COVID/FLU POC tests, [...] BMP performed as noted and uploaded to [employer]. Patient advised that she could not provide a urine sample after fluids were administered, [facility] advised to disregard UA/Culture. Patient reports improvement in symptoms with treatments listed above. IV was removed at end of visit, bandaged with gauze and bleeding controlled. Red flags discussed with patient, advised to call 911 if she experiences any life threatening symptoms. SC12 Clear. [facility] Lab Orders: culture, urine: Not Performed Comment: Patient unable to provide urine urinalysis, dipstick: Not Performed Comment: Patient unable to provide urine respiratory pathogens DNA + RNA panel, DONOVAN+probe, nasopharynx: Performed BMP, serum or plasma: Performed ...................... ...................... ...................... ...................... ...................... ...................... ......... [facility] Consulted: Natalya Ayala ...................... ...................... ...................... ...................... ...................... ...................... ......... Disposition: Fulfilled Natalya Ayala MD [address] [facility],[address], [place], [address], [employer] 10/25/2024 18:55:25 11/22/2024 text/html HPI: 64 y/o [...] Mellitus Type 2, Stroke PMH Reviewed at 11/22/2024 09:50 Allergies Reviewed at 11/22/2024 09:50 Comments: HPI reviewed ...................... ...................... ...................... ...................... ...................... ...................... ......... Occupational Health Professional Note From Donny Mckinney: Patient alert and [...] sentences, abdomen, soft, nontender, extremities unremarkable. [facility] discusses contraindications to Toradol. Supportive care alternatives mentioned, patient rejects conversation and ends visit. Patient heard to be calling PCP office. ...................... ...................... ...................... ...................... ...................... ...................... ......... [facility] Consulted: Nidia Morales ...................... ...................... ...................... ...................... ...................... ...................... ......... Disposition: Fulfilled Nidia Morales MD [address] [facility],[address], [place], [address], [facility] RAYMUNDO 11/22/2024 15:41:36 01/14/2025 text/html ROS as noted [...] Disorder, Hyperlipidemia PMH Reviewed at 01/14/2025 - 09:20 Allergies Reviewed at 01/14/2025 - 09:20 Comments: HPI reviewed Per care team- Her polyuria, polydipsia, TRACY, along with hyperglycemia are concerning for DKA. Advise [facility] visit to check blood pH and UA to assess for ketones. Assess for need for IVF if signs of dehydration. Occupational Health Professional Organization Information for Rita Guanakito Gisella Clayton Legal Name: [employer]. Address: [address] [place] [address], Unemployment Specialist: Noel Castano MD CLIA No.: [id number] Occupational Health Professional POC Test Results from Guanakito Salinas Gisella CORNEJO iSTAT Chem8+ (11:22:39) Na: 139mEq/LK: 4.5mEq/LCl: 103mEq/LiCa: [...] ...................... ...................... ...................... ...................... ...................... ...................... ......... Occupational Health Professional Note From Guanakito Salinas: Dispatched for a [...] labs unremarkable. Rest of exam unremarkable. [facility] Lab Orders: BMP, serum or plasma: Performed urinalysis, dipstick: Performed ...................... ...................... ...................... ...................... ...................... ...................... ......... [facility] Consulted: Corina Villaseñor ...................... ...................... ...................... ...................... ...................... ...................... ......... Disposition: Fulfilled CORINA VILLASEÑOR MD [address] [place] [address],[address], [place], [address], [employer] 01/14/2025 12:11:22 03/12/2025 text/html ROS as noted in the HPI HPI: Patient reporting 1 day history of feeling drunk , I felt this way when I had vertigo. Patient reports vomiting but really is spitting up phlegm. Patient reports that meclizine 25 mg is in pill box for TID. Patient is alert and oriented x 3, denies any facial droop or extremity weakness. Is speaking in full clear sentences, has gotten up and dressed this AM, able to check meds in pill box and confirmed meclizine is in there. ...................... ...................... ...................... ...................... ...................... ...................... ......... [facility] Nurse Triage Notes (Geno Aguirre): Reason For Request: Dizziness, nausea, vomiting Chief Complaints: Dizziness, Nausea / Vomiting PMH: Hypertension, Congestive Heart Failure, COPD/Asthma, Diabetes Mellitus Type 2, Stroke, Chronic Kidney Disease, Cigarette Smoker, Epilepsy/Seizure Disorder, Hyperlipidemia PMH Reviewed at 03/12/2025 Allergies Reviewed at 03/12/2025 Comments: HPI reviewed. Occupational Health Professional Organization Information for Jah Sanchez Legal Name: [employer]. Address: [address] [place] [address], Unemployment Specialist: Noel Castano MD CLIA No.: [id number] Occupational Health Professional POC Test Results from Jah Sanchez Chem8+ (11:35:26) Na: 138mEq/LK: 4.7mEq/LCl: 102mEq/LiCa: 1.17mmol/LTCO2: 24mmol/LGlu: 324mg/dLBUN: 13mg/dLCrea: 0.9mg/dLHct: 40%Hb: 13.6g/dLAmmol/LCartridge Number: [id number] Attachments uploaded as part of this test result can be found under Documents section.SEGMD: Patient was taken off oxycarbazepine(unsure why) put on Depakote 500 mg twice a day- did not start the prescription until 03/10 and her current symptoms started that day. She feels like she is drunk off balance and dizzy, worse with moving her head/walking. She is legally blind so has had no vision changes. She denies a headache. She denies falls. She has meclizine 25 mg 3 times a day but has not taken it 3 times a day and she has Zofran which she has not taken. She is only spitting up clear vomited once this morning no diarrhea. She has a walker but she has not been using it. She is a diabetic- her blood sugar was 152 yesterday morning and 247 at at bedtime last night and she took 5 units of insulin. She has not checked her blood sugar yet this morning and has only had coffee and water. She is able to drink large amounts of water. EKG (11:41:57) - This test has been updated by the legal administrative assistant, Jah Sanchez at (03/12/2025 12:32:44). The changes are marked in bold.EKG test performed. Attachments uploaded as part of this test result can be found under Documents section. ...................... ...................... ...................... ...................... ...................... ...................... ......... Occupational Health Professional Note From Jah Sanchez: [facility] makes pt contact a 64 yo F CC of feeling dizzy and like shes drunk [facility] obtains vital signs. PT explains she was on a oxcarbazepine for her seizure medication. On the they switched her to Depakote although shes not entirely sure why. She began taking her prescribed dose on the 500mg twice a day. Yesterday and into this morning she explains she feels like shes drunk, or in a brown space, and feels slow and disoriented. She denies drinking any alcohol. She believes its from the medication changes recently. PT denies chest pain, sob, no fever present. Lungs are clear. PT reports having some episodes of spitting up clear liquid but not necessarily vomiting. PT reached out to her neurologist shlomo and is waiting to hear back. She also had a pcp appointment which she missed due to the symptoms. [facility] reaches out to [facility] and explains above mentioned. [facility] orders and ekg and an istat bmp. Both are obtained and results uploaded and discussed. A 20g IV is started in the r ac. ekg and labs are non diagnostic other then a high glucose which pt will treat with her own insulin. [facility] advises pt stop taking the depakote and see if symptoms improve. She is urged to get in contact with her neurologist in order to get a different dose or medication to control her seizures. PT has her own meclizine and zofran for vertigo or nausea. PT is advised against red flags. Chest pain, sob, n/v, stool changes. or a sudden severe headache, or any seizures that she should be seen in the emergency room. PT understands. NCTiffani clear. Wilder confirmed with pt. [facility] Lab Orders: BMP, serum or plasma: Performed electrocardiogram: Performed ...................... ...................... ...................... ...................... ...................... ...................... ......... [facility] Consulted: Natalie Whipple ...................... ...................... ...................... ...................... ...................... ...................... ......... Disposition: Fulfilled Natalie Whipple MD [address] [facility],[address], [place], [address], APARNA - BRIKANAZANIN 03/13/2025 00:04:05 OBGyn Episode No OBEpisode recorded.
--- OUTSIDE RECORDS SUMMARY | 2025-03-19 10:28 | XMS_ITS | Encounter Summary ---
Author Organization [facility] Address [address] [place] [address] Encounters * CPT with Medical [facility] at [facility] on 2025-03-12 Patient reporting 1 day history of feeling drunk , I felt this way when I had vertigo. Patient reports vomiting but really is spitting up phlegm. Patient reports that meclizine 25 mg is inpill box for TID. Patient is alert and oriented x 3, denies any facial droop or extremity weakness.Is speaking in full clear sentences, has gotten up and dressed this AM, able to check meds in pill b ox and confirmed meclizine is in there. { reasonForRequest : Dizziness, nausea, vomiting , patientReports :&qu ot; , denies :[], chiefComplaints : Dizziness, Nausea / Vomiting , pmh : Hypertension, Congestive Heart Failure, COPD/Asthma, Diabetes Mellitus Type 2, Stroke, Chronic Kidney Disease, Cigarette Smoker, Epilepsy/Seizure Disorder, Hyperlipidemia , allergies : Penicillins, Codeine, Tramadol , otherAllergies :null,&qu ot;painAssessment : , visitOutcome : , additionalComments": HPI reviewed. } DANNIELLE makes pt contact a 64 yo F CC of feeling dizzy and like shes drunk MITiffani obtains vital signs. PT explains she was [...] vomiting. PT reached out to her neurologist toay and is waiting to hear back. She also had a pcp appointment which she missed due to the symptoms. [facility] reaches out to [facility] and explains above mentioned. [facility] orders and ekg and an istat bmp. Both are obtained and results uploaded and discussed. A 20g IV is started in the r ac. ekg and labs are non diagnostic other then a high glucose which pt will treat withher own insulin. [facility] advises pt stop taking the depakote and see if symptoms improve. She is urged to get in contact with her neurologist in order to get a different dose or medication to control herseizures. PT has her own meclizine and zofran for vertigo or nausea. PT is advised against red flags. Chest pain, sob, n/v, stool changes. or a sudden severe headache, or any seizures that she shouldbe seen in the emergency room. PT understands. [facility] clear. Wilder confirmed with pt. IV_(FLUIDS_AND/OR_MEDICATION), EKG, POC_BLOODWORK, URINE_DIPSTICK, ORTHOSTATIC_VITAL_SIGNS, PO_MEDICATION Written by Medical [facility] on 2025-03-12
== END 2025-03-19 09:48 | disposition home or self-care (01) ==
LOC: HO.ACS 09:21
PROVIDERS: PCP Internal Medicine; Visit Provider Internal Medicine Medical Oncology
DX: Z79.01 Long term (current) use of anticoagulants (principal)

== ENCOUNTER → 2025-03-19 09:21 | Outpatient (BNVA) | payer OTHER, SELFPAY | PROVIDERS: PCP Internal Medicine; Visit Provider Internal Medicine Medical Oncology | DX: Z79.01 Long term (current) use of anticoagulants (principal) | CPT/HCPCS: 85610; 99211 ==

== ENCOUNTER 2025-03-29 09:09 | Outpatient (AMB) | payer OTHER, SELFPAY ==
[2025-03-29 09:26] LABS: Prothrombin Time Whole Bld POC 25.2 sec (11.1-13.5); ~PT, ~INR - Anti Coag Clinic 2.1 (0.9-1.1)
--- NOTE | 2025-03-29 09:30 | MHC.OFFVISCO ---
Intake Intake Visit Reasons: Anticoagulation Allergies codeine (Codeine) Allergy (Severe, Verified 03/29/25 09:22) DIFFICULTY BREATHING Penicillins Allergy (Severe, Verified 03/29/25 09:22) RASH penicillin V Allergy (Intermediate, Verified 03/29/25 09:22) RASH tramadol (Ultram) Allergy (Unknown, Verified 03/29/25 09:22) hallucinations Shellfish Allergy (Severe, Uncoded 03/29/25 09:22) THROAT SWELLING Contrast Allergy PreMed Pack Allergy (Unknown, Uncoded 03/29/25 09:22) TREAT WITH BENADRYL ferrlecit Adverse Reaction (Intermediate, Uncoded 03/29/25 09:22) Rash Medication List - Last Reconciled 03/29/25 by Tonia Angeles, RN alcohol swabs 2 pad topical DAILY blood sugar diagnostic As directed budesonide (Pulmicort) 0.25 mg inhalation BID clonidine HCl 0.1 mg PO BID dapagliflozin propanediol (Farxiga) 5 mg PO DAILY divalproex ER 250 mg PO TID 3 months MDD 750 docusate sodium (Colace) 100 mg PO DAILY duloxetine (Cymbalta) 30 mg PO DAILY duloxetine 60 mg PO QAM epoetin marj (Procrit) 2,000 units subcut 3XW hydrocortisone 2.5% appl topical insulin glargine (Lantus Solostar U-100 Insulin) 5 units subcut DAILY ipratropium-albuterol 0.5 mg-3 mg(2.5 mg base)/3 mL mL inhalation ipratropium-albuterol 20-100 mcg/actuation 1 puff PO QID ipratropium-albuterol 20-100 mcg/actuation (Combivent Respimat) 1 puff inhalation Q4H lancets As directed lancets As directed latanoprost 0.005% drps ophthalmic (eye) linaclotide (Linzess) 145 mcg PO DAILY linagliptin (Tradjenta) 5 mg PO DAILY yrnabw-opkmartx-xmxwnfw (pork) 24,000-76,000 -120,000 unit (Creon) 1 cap PO TID loratadine 10 mg PO DAILY PRN lorazepam 1 mg PO BID meclizine mg PO montelukast 10 mg PO BEDTIME nifedipine ER 30 mg PO DAILY nitroglycerin 0.4 mg sublingual Q5M PRN nystatin 1 appl topical DAILY PRN ondansetron 4 mg PO Q8H PRN oxcarbazepine (Trileptal) 150 mg PO Q12H 30 days pen needle, diabetic (Ultra-Fine Pen Needle) As directed quetiapine 200 mg PO BEDTIME rabeprazole 20 mg PO DAILY ropinirole 0.25 mg PO BEDTIME rosuvastatin 40 mg PO DAILY sodium chloride 0.65% (Deep Sea Nasal) sprays intranasal Q2H PRN triamcinolone acetonide 0.1% appl topical warfarin 2.5 mg See Protocol PO DAILY Nursing Note INR: 2.1 in therapeutic range of 2-3 Medications and supplements reviewed No changes in health, diet, medications, or supplements, Denies any signs and symptoms of bleeding or bruising or clotting. Bleeding, bruising, clotting discussed Nutritional guidance given to avoid greens today and to have a serving of foods that raise the INR Dose: 5mg X 5 days and 3.75mg X 2 days (Wed & Sat) F/U INR: 1 week Patient verbalizes understanding of instructions given Anti-Coag Initial Assessment Social Hx Patient Tobacco Use Status: Current everyday Tobacco user alcohol intake: never Coding Level of Care Code Est Patient Level 1 Diagnoses Current use of anticoagulant therapy Z79.01 Results AMB INR Fingerstick AMB INR Fingerstick 2.1 Last Edit by Tonia Angeles RN on 03/29/25 09:30 interface delay Assessment & Plan Assessment & Plan (1) Current use of anticoagulant therapy: Code(s): Z79.01 - intermediate card tender (current) use of anticoagulants Category: Medical
--- OUTSIDE RECORDS SUMMARY | 2025-03-29 10:03 | XMS_ITS | Encounter Summary ---
Author Organization [facility] Address [address] [place] [address] Phone Care Team Providers Care Sweetbread Trimmer Name Role Phone Sahra Son MD Primary Care Provider + Encounter Details Date Type Department Care Team ([facility] Contact Info) Description 06/17/2022 Documentation Only [facility] [address] [place] [address] India Davalos [address] [place] [address] Social History Tobacco Use Types [...] Department Care Team (Late Contact Info) Description 06/05/2025 2:50 PM EST Office Visit [facility] [address] [place] [address] Barry Reyes MD [address] [place] [address] [place] [address] documented as of this encounter Visit Diagnoses Not on filedocumented in this encounter Care Teams Sweetbread Trimmer Relationship Specialty Start Date End Date Sahra Son MD [address] [address] PCP - General Internal Medicine 10/28/22 documented as of this encounter
--- OUTSIDE RECORDS SUMMARY | 2025-03-29 10:03 | XMS_ITS | Encounter Summary ---
Author Organization [facility] Address [address] [place] [address] Phone Care Team Providers Care Multimedia Teacher Name Role Phone Sahra Son MD Primary Care Provider + Encounter Details Date Type Department Care Team ([facility] Contact Info) Description 06/22/2022 Documentation Only [facility] [address] [place] [address] India Davalos [address] [place] [address] Social History Tobacco Use Types [...] [facility] [address] [place] [address] Barry Reyes MD [address] [place] [address] [place] [address] documented as of this encounter Visit Diagnoses Not on filedocumented in this encounter Care Teams Multimedia Teacher Relationship Specialty Start Date End Date Sahra Son MD [address] [address] PCP - General Internal Medicine 10/28/22 documented as of this encounter
--- OUTSIDE RECORDS SUMMARY | 2025-03-29 10:03 | XMS_ITS | Encounter Summary ---
Author Organization [facility] Address [address] [place] [address] Phone Care Team Providers Care Associate Professor Of Literacy Name Role Phone Sahra Son MD Primary Care Provider + Encounter Details Date Type Department Care Team ([facility] Contact Info) Description 09/28/2022 Documentation Only [facility] [address] [place] [place] [address] India Davalos [address] [place] [address] Social History Tobacco Use [...] on file documented as of this encounter Functional Status documented as of this encounter Plan of Treatment Upcoming Encounters Date Type Department Care Team ([facility] Contact Info) Description 06/05/2025 2:50 PM EST Office Visit [facility] [address] [place] [place] [address] Barry Reyes MD [address] [place] [address] [place] [address] documented as of this encounter Visit Diagnoses Not on filedocumented in this encounter Care Teams Associate Professor Of Literacy Relationship Specialty Start Date End Date Sahra Son MD NPI: [id number] [place] [address] PCP - General Internal Medicine 10/28/22 documented as of this encounter
--- OUTSIDE RECORDS SUMMARY | 2025-03-29 10:03 | XMS_ITS | Encounter Summary ---
Author Organization [facility] Address [address] [place] [address] Phone Care Team Providers Care Bioinformatics Analyst Name Role Phone Sahra Son MD Primary Care Provider + Encounter Details Date Type Department Care Team (Late Contact Info) Description 12/22/2024 Orders Only [facility] [address] [place] [address] India Davalos [address] [place] [address] Anemia in chronic kidney disease; [...] Care Team (Late st Contact Info) Description 06/05/2025 2:50 PM EST Office Visit [facility] [address] [place] [address] Barry Reyes MD [address] [place] [address] documented as of this encounter Visit Diagnoses Diagnosis Anemia in chronic kidney disease Other iron deficiency anemia Chronic kidney disease, stage 2 (mild) documented in this encounter Care Teams Bioinformatics Analyst Relationship Specialty Start Date End Date Sahra Son MD [facility] [place] [address] PCP - General Internal Medicine 10/28/22 documented as of this encounter
--- OUTSIDE RECORDS SUMMARY | 2025-03-29 10:03 | XMS_ITS | Encounter Summary ---
Author Organization [facility] Address [address] [place] [address] Phone Care Team Providers Care Data Migration Lead Name Role Phone Sahra Son MD Primary Care Provider + Encounter Details Date Type Department Care Team ([facility] Contact Info) Description 06/16/2022 Documentation Only [facility] [address] [place] [address] India Davalos [address] [place] [address] Social History Tobacco Use Types [...] ([facility] Contact Info) Description 06/05/2025 2:50 PM EST Office Visit [facility] [address] [place] [address] Barry Reyes MD [address] [place] [address] [place] [address] documented as of this encounter Visit Diagnoses Not on filedocumented in this encounter Care Teams Data Migration Lead Relationship Specialty Start Date End Date Sahra Son MD NPI: [id number] [place] [address] PCP - General Internal Medicine 10/28/22 documented as of this encounter
--- OUTSIDE RECORDS SUMMARY | 2025-03-29 10:03 | XMS_ITS | Encounter Summary ---
Author Organization [facility] Address [address] [place] [address] Phone Care Team Providers Care Merchandise Director Name Role Phone Sahra Son MD Primary Care Provider + Encounter Details Date Type Department [facility] Description 06/18/2021 Documentation Only [facility] [address] [place] [address] India Davalos [address] [place] [address] Social History Tobacco Use Types [...] [facility] [address] [place] [address] Barry Reyes MD [address] [place] [address] [place] [address] documented as of this encounter Visit Diagnoses Not on filedocumented in this encounter Care Teams Merchandise Director Relationship Specialty Start Date End Date Sahra Son MD [address] [address] PCP - General Internal Medicine 10/28/22 documented as of this encounter
--- OUTSIDE RECORDS SUMMARY | 2025-03-29 10:03 | XMS_ITS | Encounter Summary ---
Author Organization [facility] Address [address] [place] [address] Phone Care Team Providers Care Arterial Embalmer Name Role Phone Sahra Son MD Primary Care Provider + Encounter Details Date Type Department Care Team ([facility] Contact Info) Description 09/28/2022 Documentation Only [facility] [address] [place] [address] India Davalos [address] [place] [address] Social History Tobacco Use Types [...] Encounters Date Type Department Care Team ([facility] Contact Info) Description 06/05/2025 2:50 PM EST Office Visit [facility] [address] [place] [address] Barry Reyes MD [address] [place] [address] [place] [address] documented as of this encounter Visit Diagnoses Not on filedocumented in this encounter Care Teams Arterial Embalmer Relationship Specialty Start Date End Date Sahra Son MD NPI: [id number] [place] [address] PCP - General Internal Medicine 10/28/22 documented as of this encounter
--- OUTSIDE RECORDS SUMMARY | 2025-03-29 10:03 | XMS_ITS | Encounter Summary ---
Author Organization [facility] Address [address] [place] [address] Phone Care Team Providers Care Insulation Cupola Charger Name Role Phone Sahra Son MD Primary Care Provider + Encounter Details Date Type Department Care Team ([facility] Contact Info) Description 09/28/2022 Documentation Only [facility] [address] [place] [address] India Davalos [address] [place] [address] Social History Tobacco Use Types [...] Upcoming Encounters Date Type Department Care Team ([facility] Contact Info) Description 06/05/2025 2:50 PM EST Office Visit [facility] [address] [place] [address] Barry Reyes MD [address] [place] [address] [place] [address] documented as of this encounter Visit Diagnoses Not on filedocumented in this encounter Care Teams Insulation Cupola Charger Relationship Specialty Start Date End Date Sahra Son MD NPI: [id number] [place] [address] PCP - General Internal Medicine 10/28/22 documented as of this encounter
--- OUTSIDE RECORDS SUMMARY | 2025-03-29 10:03 | XMS_ITS | Encounter Summary ---
Author Organization [facility] Address [address] [place] [address] Phone Care Team Providers Care Trauma Surgeon Name Role Phone Sahra Son MD Primary Care Provider + Encounter Details Date Type Department Care Team ([facility] Contact Info) Description 09/18/2022 Documentation Only [facility] [address] [place] [address] India Davalos [address] [place] [address] Social History Tobacco Use [...] Upcoming Encounters Date Type Department Care Team ([facility] Contact Info) Description 06/05/2025 2:50 PM EST Office Visit [facility] [address] [place] [address] Barry Reyes MD [address] [place] [address] [place] [address] documented as of this encounter Visit Diagnoses Not on filedocumented in this encounter Care Teams Trauma Surgeon Relationship Specialty Start Date End Date Sahra Son MD NPI: [id number] [place] [address] PCP - General Internal Medicine 10/28/22 documented as of this encounter
--- OUTSIDE RECORDS SUMMARY | 2025-03-29 10:03 | XMS_ITS | Encounter Summary ---
Author Organization [facility] Address [address] [place] [address] Phone Care Team Providers Care Parimutuel Cashier Name Role Phone Sahra Son MD Primary Care Provider + Encounter Details Date Type Department Care Team (Late Contact Info) Description 03/03/2024 Orders Only [facility] [address] [place] [address] India Davalos [address] [place] [address] Chronic kidney disease, stage 2 [...] Visit [facility] [address] [place] [address] Barry Reyes MD [address] [place] [address] [place] [address] documented as of this encounter [...] Glucose 152(H) 70 - 99 mg/dL [facility] BUN 16 8 - 27 mg/dL [facility] Creatinine 0.98 0.57 - 1.00 mg/dL [facility] eGFR CKD-EPI CR 2020 64 >59 mL/min/1.7 3 [facility] BUN/Creatinine Ratio 16 12 - 28 [facility] Sodium 137 134 - 144 mmol/L [facility] Potassium 4.8 3.5 - 5.2 mmol/L [facility] Chloride 101 96 - 106 mmol/L [facility] Bicarbonate (CO2) 22 20 - 29 mmol/L [facility] Calcium 8.8 8.7 - 10.3 mg/dL [facility] Albumin 4.0 3.9 - 4.9 g/dL [facility] Phosphorus 4.0 3.0 - 4.3 mg/dL [facility] Blood specimen (specimen) Venous blood / Unknown 03/24/2024 10:37 AM EST 03/24/2024 Barry Reyes MD LAB BLOOD ORDERABLES Final Re sult [facility] [address] [place] [address] * Ferritin (03/24/2024 10:37 AM EST) Ferritin 37 15 - 150 ng/mL [facility] Blood specimen (specimen) Venous blood / Unknown 03/24/2024 10:37 AM EST 03/24/2024 Barry Reyes MD LAB BLOOD ORDERABLES Final Re sult Performing Organization Address [facility] Co de Phone Number [facility] [address] [place] [address] * Iron Panel (Fe, TIBC, TSAT) (03/24/2024 10:37 AM EST) TIBC 293 250 - 450 ug/dL [facility] UIBC 247 118 - 369 ug/dL [facility] Iron 46 27 - 139 ug/dL [facility] Iron Saturation (TSat) 16 15 - 55 % [facility] Blood specimen (specimen) Venous blood / Unknown 03/24/2024 10:37 AM EST 03/24/2024 Barry Reyes MD LAB BLOOD ORDERABLES Final Re sult Performing Organization Address City/[facility]/ZIP Co de Phone Number [facility] [address] [place] [address] * (ABNORMAL) CBC and Differential (03/24/2024 10:37 AM EST) [facility] WBC 6.0 3.4 - 10.8 x10E3/uL [facility] RBC 5.21 3.77 - 5.28 x10E6/uL [facility] Hemoglobin 10.0(L) 11.1 - 15.9 g/dL [facility] Hematocrit 35.3 34.0 - 46.6 % [facility] MCV 68(L) 79 - 97 fL [facility] MCH 19.2(L) 26.6 - 33.0 pg [facility] MCHC 28.3(L) 31.5 - 35.7 g/dL [facility] RDW 19.4(H) 11.7 - 15.4 % [facility] Platelets 186 150 - 450 x10E3/uL [facility] Neutrophils Relative 65 Not Estab. % [facility] Lymphocytes Relative 26 Not Estab. % [facility] Monocytes 6 Not Estab. % [facility] Eosinophils Relative 2 Not Estab. % [facility] Basophils Relative 1 Not Estab. % [facility] Neutrophils Absolute 3.9 1.4 - 7.0 x10E3/uL [facility] Lymphocytes Absolute 1.5 0.7 - 3.1 x10E3/uL [facility] Monocytes Absolute 0.3 0.1 - 0.9 x10E3/uL [facility] Eosinophils Absolute 0.1 0.0 - 0.4 x10E3/uL [facility] Basophils Absolute 0.0 0.0 - 0.2 x10E3/uL [facility] Immature Granulocytes 0 Not Estab. % [facility] Immature Grans (Absolute) 0.0 0.0 - 0.1 x10E3/uL [facility] Blood specimen (specimen) Venous blood / Unknown 03/24/2024 10:37 AM EST 03/24/2024 us Barry Reyes MD LAB BLOOD ORDERABLES Final Re sult [facility] [address] [place] [address] documented in this encounter Visit Diagnoses Diagnosis Chronic kidney disease, stage 2 (mild) Anemia in chronic kidney disease Iron deficiency anemia, not otherwise specified documented in this encounter Care Teams Parimutuel Cashier Relationship Specialty Start Date End Date Sahra Son MD [address] [address] PCP - General Internal Medicine 10/28/22 documented as of this encounter
--- OUTSIDE RECORDS SUMMARY | 2025-03-29 10:03 | XMS_ITS | Encounter Summary ---
Author Organization [facility] Address [address] [place] [address] Phone Care Team Providers Care Deli Department Manager Name Role Phone Sahra Son MD Primary Care Provider + Encounter Details Date Type Department Care Team ([facility] Contact Info) Description 09/28/2022 Documentation Only [facility] [address] [place] [address] India Davalos [address] [place] [address] Social History Tobacco Use Types [...] Upcoming Encounters Date Type Department Care Team ([facility] Contact Info) Description 06/05/2025 2:50 PM EST Office Visit [facility] [address] [place] [address] Barry Reyes MD [address] [place] [address] [place] [address] documented as of this encounter Visit Diagnoses Not on filedocumented in this encounter Care Teams Deli Department Manager Relationship Specialty Start Date End Date Sahra Son MD NPI: [id number] [place] [address] PCP - General Internal Medicine 10/28/22 documented as of this encounter
--- OUTSIDE RECORDS SUMMARY | 2025-03-29 10:04 | XMS_ITS | Encounter Summary ---
Author Organization [facility] Address [address] [place] [address] Phone Care Team Providers Care Financial Coach Name Role Phone Sahra Son MD Primary Care Provider + Encounter Details Date Type Department Care Team ([facility] Contact Info) Description 03/11/2023 Documentation Only [facility] [address] [place] [address] India Davalos [address] [place] [address] Social History Tobacco Use Types [...] Upcoming Encounters Date Type Department Care Team ([facility] Contact Info) Description 06/05/2025 2:50 PM EST Office Visit [facility] [address] [place] [address] Barry Reyes MD [address] [place] [address] [place] [address] documented as of this encounter Visit Diagnoses Not on filedocumented in this encounter Care Teams Financial Coach Relationship Specialty Start Date End Date Sahra Son MD [address] [address] PCP - General Internal Medicine 10/28/22 documented as of this encounter
--- OUTSIDE RECORDS SUMMARY | 2025-03-29 10:04 | XMS_ITS | Encounter Summary ---
Author Organization [facility] Address [address] [place] [address] Phone Care Team Providers Care Meat Seafood Associate Name Role Phone Sahra Son MD Primary Care Provider + Encounter Details Date Type Department Care Team ([facility] Contact Info) Description 08/11/2022 Documentation Only [facility] [address] [place] [address] India Davalos [address] [place] [address] Social History Tobacco Use Types [...] [facility] [address] [place] [address] Barry Reyes MD [address] [place] [address] [place] [address] documented as of this encounter Visit Diagnoses Not on filedocumented in this encounter Care Teams Meat Seafood Associate Relationship Specialty Start Date End Date Sahra Son MD [address] [address] PCP - General Internal Medicine 10/28/22 documented as of this encounter
--- OUTSIDE RECORDS SUMMARY | 2025-03-29 10:04 | XMS_ITS | Encounter Summary ---
Author Organization [facility] Address [address] [place] [address] Phone Care Team Providers Care Rubber Compounder Formulator Name Role Phone Sahra Son MD Primary Care Provider + Encounter Details Date Type Department Care Team ([facility] Contact Info) Description 11/11/2023 Documentation Only [facility] [address] [place] [address] India Davalos [address] [place] [address] Social History Tobacco Use [...] Upcoming Encounters Date Type Department Care Team ([facility] Contact Info) Description 06/05/2025 2:50 PM EST Office Visit [facility] [address] [place] [address] Barry Reyes MD [address] [place] [address] [place] [address] documented as of this encounter Visit Diagnoses Not on filedocumented in this encounter Care Teams Rubber Compounder Formulator Relationship Specialty Start Date End Date Sahra Son MD NPI: [id number] [place] [address] PCP - General Internal Medicine 10/28/22 documented as of this encounter
--- OUTSIDE RECORDS SUMMARY | 2025-03-29 10:04 | XMS_ITS | Encounter Summary ---
Author Organization [facility] Address [address] [place] [address] Phone Care Team Providers Care Harness Installer Name Role Phone Sahra Son MD Primary Care Provider + Encounter Details Date Type Department Care Team ([facility] Contact Info) Description 08/24/2024 Documentation Only [facility] [address] [place] [address] India Davalos [address] [place] [address] Social History Tobacco Use Types [...] [facility] [address] [place] [address] Barry Reyes MD [address] [place] [address] [place] [address] documented as of this encounter Visit Diagnoses Not on filedocumented in this encounter Care Teams Harness Installer Relationship Specialty Start Date End Date Sahra Son MD [address] [address] PCP - General Internal Medicine 10/28/22 documented as of this encounter
--- OUTSIDE RECORDS SUMMARY | 2025-03-29 10:04 | XMS_ITS | Encounter Summary ---
Author Organization [facility] Address [address] [place] [address] Phone Care Team Providers Care Checkman Name Role Phone Sahra Son MD Primary Care Provider + Encounter Details Date Type Department Care Team ([facility] Contact Info) Description 11/11/2023 Documentation Only [facility] [address] [place] [address] India Davalos [address] [place], [place] [...] Care Team ([facility] Contact Info) Description 06/05/2025 2:50 PM EST Office Visit [facility] [address] [place] [address] Barry Reyes MD [address] [place] [address] [place] [address] documented as of this encounter Visit Diagnoses Not on filedocumented in this encounter Care Teams Checkman Relationship Specialty Start Date End Date Sahra Son MD NPI: [id number] [address] [place] [address] PCP - General Internal Medicine 10/28/22 documented as of this encounter
--- OUTSIDE RECORDS SUMMARY | 2025-03-29 10:04 | XMS_ITS | Encounter Summary ---
Author Organization [facility] Address [address] [place] [address] Phone Care Team Providers Care Is Consultant Name Role Phone Sahra Son MD Primary Care Provider + Encounter Details Date Type Department Care Team ([facility] Contact Info) Description 11/11/2023 Documentation Only [facility] [address] [place] [address] India Davalos [address] [place] [address] Social History Tobacco Use Types [...] Date Type Department Care Team ([facility] Contact Info) Description 06/05/2025 2:50 PM EST Office Visit [facility] [address] [place] [address] Barry Reyes MD [address] [place] [address] [place] [address] documented as of this encounter Visit Diagnoses Not on filedocumented in this encounter Care Teams Is Consultant Relationship Specialty Start Date End Date Sahra Son MD NPI: [id number] [place] [address] PCP - General Internal Medicine 10/28/22 documented as of this encounter
--- OUTSIDE RECORDS SUMMARY | 2025-03-29 10:04 | XMS_ITS | Encounter Summary ---
Author Organization [facility] Address [address] [place] [address] Phone Care Team Providers Care Sand Cutter Name Role Phone Sahra Son MD Primary Care Provider + Encounter Details Date Type Department Care Team ([facility] Contact Info) Description 11/30/2023 Documentation Only [facility] [address] [place] [address] India Davalos [address] [place] [address] Social History Tobacco Use [...] [facility] [address] [place] [address] Barry Reyes MD [address] [place] [address] [place] [address] documented as of this encounter Visit Diagnoses Not on filedocumented in this encounter Care Teams Sand Cutter Relationship Specialty Start Date End Date Sahra Son MD [address] [address] PCP - General Internal Medicine 10/28/22 documented as of this encounter
--- OUTSIDE RECORDS SUMMARY | 2025-03-29 10:04 | XMS_ITS | Encounter Summary ---
Author Organization [facility] Address [address] [place] [address] Phone Care Team Providers Care Sales Representative Name Role Phone Sahra Son MD Primary Care Provider + Encounter Details Date Type Department Care Team ([facility] Contact Info) Description 04/08/2022 Documentation Only [facility] [address] [place] [address] India Davalos [address] [place], [place] [...] [facility] Contact Info) Description 06/05/2025 2:50 PM EST Office Visit [facility] [address] [place] [address] Barry Reyes MD [address] [place] [address] [place] [address] documented as of this encounter Visit Diagnoses Not on filedocumented in this encounter Care Teams Sales Representative Relationship Specialty Start Date End Date Sahra Son MD [address] [address] PCP - General Internal Medicine 10/28/22 documented as of this encounter
--- OUTSIDE RECORDS SUMMARY | 2025-03-29 10:04 | XMS_ITS | Encounter Summary ---
Author Organization [facility] Address [address] [place] [address] Phone Care Team Providers Care Cutter Plastics Rolls Name Role Phone Sahra Son MD Primary Care Provider + Encounter Details Date Type Department Care Team ([facility] Contact Info) Description 11/21/2021 Documentation Only [facility] [address] [place] [address] India Davalos [address] [place] [address] Social History Tobacco Use Types [...] [facility] [address] [place] [address] Barry Reyes MD [address] [place] [address] [place] [address] documented as of this encounter Visit Diagnoses Not on filedocumented in this encounter Care Teams Cutter Plastics Rolls Relationship Specialty Start Date End Date Sahra Son MD [address] [address] PCP - General Internal Medicine 10/28/22 documented as of this encounter
--- OUTSIDE RECORDS SUMMARY | 2025-03-29 10:04 | XMS_ITS | Encounter Summary ---
Author Organization [facility] Address [address] [place] [address] Phone Care Team Providers Care Brass Wind Instruments Tube Bender Name Role Phone Sahra Son MD Primary Care Provider + Encounter Details Date Type Department Care Team (Late Contact Info) Description 06/30/2020 Orders Only [facility] [address] [place] [address] Carol Whelan [address] [place] [address] Iron deficiency anemia, not otherwise [...] Visit [facility] [address] [place] [address] Barry Reyes MD [address] [facility] [place] [address] documented as of this encounter Visit Diagnoses Diagnosis Iron deficiency anemia, not otherwise specified Chronic kidney disease, Stage II (mild) documented in this encounter Care Teams Brass Wind Instruments Tube Bender Relationship Specialty Start Date End Date Sahra Son MD [address] [place] [address] PCP - General Internal Medicine 10/28/22 documented as of this encounter
--- OUTSIDE RECORDS SUMMARY | 2025-03-29 10:04 | XMS_ITS | Encounter Summary ---
Author Organization [facility] Address [address] [place] [address] Phone Care Team Providers Care Call Center Rn Name Role Phone Sahra Son MD Primary Care Provider + Encounter Details Date Type Department Care Team (Late Contact Info) Description 08/18/2024 Orders Only [facility] [address] [place] [address] India Davalos [address] [place] [address] Chronic kidney disease, stage 2 [...] [facility] [address] [facility] [place] [address] Barry Reyes MD [address] [place] [address] [place] [address] documented as of this encounter Visit Diagnoses Diagnosis Chronic kidney disease, stage 2 (mild) Anemia in chronic kidney disease Iron deficiency anemia, not otherwise specified documented in this encounter Care Teams Call Center Rn Relationship Specialty Start Date End Date Sahra Son MD [address] [place] [address] PCP - General Internal Medicine 10/28/22 documented as of this encounter
--- OUTSIDE RECORDS SUMMARY | 2025-03-29 10:04 | XMS_ITS | Encounter Summary ---
Author Organization [facility] Address [address] [place] [address] Phone Care Team Providers Care Stitch Marker Name Role Phone Sahra Son MD Primary Care Provider + Encounter Details Date Type Department Care Team ([facility] Contact Info) Description 11/19/2023 Documentation Only [facility] [address] [place] [address] India Davalos [address] [place], [place] [...] [facility] [address] [place] [address] Barry Reyes MD [address] [place] [address] [place] [address] documented as of this encounter Visit Diagnoses Not on filedocumented in this encounter Care Teams Stitch Marker Relationship Specialty Start Date End Date Sahra Son MD [address] [address] PCP - General Internal Medicine 10/28/22 documented as of this encounter
--- OUTSIDE RECORDS SUMMARY | 2025-03-29 10:04 | XMS_ITS | Encounter Summary ---
Author Organization [facility] Address [address] [place] [address] Phone Care Team Providers Care Finance Lead Name Role Phone Sahra Son MD Primary Care Provider + Encounter Details Date Type Department Care Team ([facility] Contact Info) Description 01/04/2024 Documentation Only [facility] [address] [place] [address] India Davalos [address] [place] [address] Social History Tobacco Use Types [...] [facility] [address] [place] [address] Barry Reyes MD [address] [place] [address] [place] [address] documented as of this encounter Visit Diagnoses Not on filedocumented in this encounter Care Teams Finance Lead Relationship Specialty Start Date End Date Sahra Son MD [address] [address] PCP - General Internal Medicine 10/28/22 documented as of this encounter
--- OUTSIDE RECORDS SUMMARY | 2025-03-29 10:04 | XMS_ITS | Encounter Summary ---
Author Organization [facility] Address [address] [place] [address] Phone Care Team Providers Care Assistant Plant Controller Name Role Phone Sahra Son MD Primary Care Provider + Encounter Details Date Type Department Care Team (Late st Contact Info) Description 06/09/2024 Orders Only [facility] [address] [facility] [place] [address] India Davalos [address] [place] [address] Anemia in chronic kidney disease; [...] Visit [facility] [address] [facility] [place] [address] Barry Reyes MD [address] [facility] [place] [address] documented as of this encounter Visit Diagnoses Diagnosis Anemia in chronic kidney disease Other iron deficiency anemia Chronic kidney disease, stage 2 (mild) documented in this encounter Care Teams Assistant Plant Controller Relationship Specialty Start Date End Date Sahra Son MD [facility] [place] [address] PCP - General Internal Medicine 10/28/22 documented as of this encounter
--- OUTSIDE RECORDS SUMMARY | 2025-03-29 10:04 | XMS_ITS | Encounter Summary ---
Author Organization [facility] Address [address] [place] [address] Phone Care Team Providers Care Upset Operator Name Role Phone Sahra Son MD Primary Care Provider + Encounter Details Date Type Department Care Team ([facility] Contact Info) Description 12/31/2023 Documentation Only [facility] [address] [place] [address] India Davalos [address] [place] [address] Social History Tobacco Use Types [...] [facility] [address] [place] [address] Barry Reyes MD [address] [place] [address] [place] [address] documented as of this encounter Visit Diagnoses Not on filedocumented in this encounter Care Teams Upset Operator Relationship Specialty Start Date End Date Sahra Son MD [address] [address] PCP - General Internal Medicine 10/28/22 documented as of this encounter
--- OUTSIDE RECORDS SUMMARY | 2025-03-29 10:04 | XMS_ITS | Encounter Summary ---
Author Organization [facility] Address [address] [place] [address] Phone Care Team Providers Care Internal Investigator Name Role Phone Sahra Son MD Primary Care Provider + Encounter Details Date Type Department Care Team ([facility] Contact Info) Description 01/06/2022 Documentation Only [facility] [address] [place] [address] Juan Jose Li MD [address] [place] [address] [place] [address] Social History Tobacco Use Types [...] [facility] [address] [place] [address] Barry Reyes MD [address] [facility] [place] [address] documented as of this encounter Visit Diagnoses Not on filedocumented in this encounter Care Teams Internal Investigator Relationship Specialty Start Date End Date Sahra Son MD [address] [address] PCP - General Internal Medicine 10/28/22 documented as of this encounter
--- OUTSIDE RECORDS SUMMARY | 2025-03-29 10:04 | XMS_ITS | Encounter Summary ---
Author Organization [facility] Address [address] [place] [address] Phone Care Team Providers Care Sourcing Coordinator Name Role Phone Sahra Son MD Primary Care Provider + Encounter Details Date Type Department Care Team (Late st Contact Info) Description 07/07/2024 Orders Only [facility] [address] [facility] [place] [address] India Davalos [address] [place] [address] Anemia in chronic kidney disease; [...] [facility] [address] [place] [address] Barry Reyes MD [address] [facility] [place] [address] documented as of this encounter Visit Diagnoses Diagnosis Anemia in chronic kidney disease Other iron deficiency anemia Chronic kidney disease, stage 2 (mild) documented in this encounter Care Teams Sourcing Coordinator Relationship Specialty Start Date End Date Sahra Son MD [facility] [place] [address] PCP - General Internal Medicine 10/28/22 documented as of this encounter
--- OUTSIDE RECORDS SUMMARY | 2025-03-29 10:04 | XMS_ITS | Encounter Summary ---
Author Organization [facility] Address [address] [place] [address] Phone Care Team Providers Care Senior Hris Analyst Name Role Phone Sahra Son MD Primary Care Provider + Encounter Details Date Type Department Care Team ([facility] Contact Info) Description 11/05/2023 Documentation Only [facility] [address] [place] [address] India Davalos [address] [place] [address] Social History Tobacco Use [...] [facility] [address] [place] [address] Barry Reyes MD [address] [place] [address] [place] [address] documented as of this encounter Visit Diagnoses Not on filedocumented in this encounter Care Teams Senior Hris Analyst Relationship Specialty Start Date End Date Sahra Son MD [address] [address] PCP - General Internal Medicine 10/28/22 documented as of this encounter
--- OUTSIDE RECORDS SUMMARY | 2025-03-29 10:04 | XMS_ITS | Encounter Summary ---
Author Organization [facility] Address [address] [place] [address] Phone Care Team Providers Care Herbicide Sprayer Name Role Phone Sahra Son MD Primary Care Provider + Encounter Details Date Type Department Care Team ([facility] Contact Info) Description 11/11/2023 Documentation Only [facility] [address] [place] [address] India Davalos [address] [place] [address] Social History Tobacco Use Types [...] Encounters Date Type Department Care Team ([facility] Contact Info) Description 06/05/2025 2:50 PM EST Office Visit [facility] [address] [place] [address] Barry Reyes MD [address] [place] [address] [place] [address] documented as of this encounter Visit Diagnoses Not on filedocumented in this encounter Care Teams Herbicide Sprayer Relationship Specialty Start Date End Date Sahra Son MD NPI: [id number] [place] [address] PCP - General Internal Medicine 10/28/22 documented as of this encounter
--- OUTSIDE RECORDS SUMMARY | 2025-03-29 10:04 | XMS_ITS | Encounter Summary ---
Author Organization [facility], Address [address] [place] [address] Phone Care Team Providers Care Medical Affairs Director Name Role Phone Sahra Son MD Primary Care Provider + Encounter Details Date Type Department Care Team (Late st Contact Info) Description 12/23/2021 Documentation Only [facility], [address] [place] [address] Juan Jose Li MD [address] [place] [address] Social [...] documented as of this encounter Functional Status * Question Answer Date of Assessment Author BP 130/80 12/24/2021 8:23 AM EDT Rylee Menezes RN Weight 3452.8 12/24/2021 8:23 AM EDT Rylee Menezes RN * BP Location Answer Date of Assessment Author Left upper arm 12/24/2021 8:23 AM Rylee Gomez RN * Question Answer Date of Assessment Author BP 130/80 12/24/2021 8:23 AM EDT Rylee Menezes RN Weight 3452.8 12/24/2021 8:23 AM EDT Rylee Menezes RN * BP Location Answer Date of Assessment Author Left upper arm 12/24/2021 8:23 AM EDRylee Yadav, RN documented as of this encounter Plan of Treatment Upcoming Encounters Date Type Department Care Team (Late st Contact Info) Description 06/05/2025 2:50 PM EST Office Visit [facility], [address] [place] [phone] Barry Reyes MD [address] [place] [address] [place] [id number] documented as of this encounter Visit Diagnoses Not on filedocumented in this encounter Care Teams Medical Affairs Director Relationship Specialty Start Date End Date Sahra Son MD [address] [address] PCP - General Internal Medicine 10/28/22 documented as of this encounter
--- OUTSIDE RECORDS SUMMARY | 2025-03-29 10:04 | XMS_ITS | Encounter Summary ---
Author Organization [facility] Address [address] [place] [address] Phone Care Team Providers Care Emission Technician Name Role Phone Sahra Son MD Primary Care Provider + Encounter Details Date Type Department Care Team ([facility] Contact Info) Description 08/28/2024 Documentation Only [facility] [address] [place] [address] India Davalos [address] [place] [address] Social History Tobacco [...] [facility] [address] [place] [address] Barry Reyes MD [address] [place] [address] [place] [address] documented as of this encounter Visit Diagnoses Not on filedocumented in this encounter Care Teams Emission Technician Relationship Specialty Start Date End Date Sahra Son MD [address] [address] PCP - General Internal Medicine 10/28/22 documented as of this encounter
--- OUTSIDE RECORDS SUMMARY | 2025-03-29 10:04 | XMS_ITS | Encounter Summary ---
Author Organization [facility] Address [address] [place] [address] Phone Care Team Providers Care Music Artist Name Role Phone Sahra Son MD Primary Care Provider + Encounter Details Date Type Department Care Team ([facility] Contact Info) Description 08/25/2024 Documentation Only [facility] [address] [place] [address] India Davalos [address] [place] [address] Social History Tobacco Use Types [...] [facility] [address] [place] [address] Barry Reyes MD [address] [place] [address] [place] [address] documented as of this encounter Visit Diagnoses Not on filedocumented in this encounter Care Teams Music Artist Relationship Specialty Start Date End Date Sahra Son MD [address] [address] PCP - General Internal Medicine 10/28/22 documented as of this encounter
--- OUTSIDE RECORDS SUMMARY | 2025-03-29 10:04 | XMS_ITS | Encounter Summary ---
Author Organization [facility] Address [address] [place] [address] Phone Care Team Providers Care Grade Teacher Name Role Phone Sahra Son MD Primary Care Provider + Encounter Details Date Type Department Care Team ([facility] Contact Info) Description 04/14/2022 Documentation Only [facility] [address] [place] [address] India Davalos [address] [place] [address] Social History Tobacco Use Types [...] [facility] [address] [place] [address] Barry Reyes MD [address] [place] [address] [place] [address] documented as of this encounter Visit Diagnoses Not on filedocumented in this encounter Care Teams Grade Teacher Relationship Specialty Start Date End Date Sahra Son MD [address] [address] PCP - General Internal Medicine 10/28/22 documented as of this encounter
--- OUTSIDE RECORDS SUMMARY | 2025-03-29 10:04 | XMS_ITS | Encounter Summary ---
Author Organization [facility] Address [address] [place] [address] Phone Care Team Providers Care Office Cashier Name Role Phone Sahra Son MD Primary Care Provider + Encounter Details Date Type Department Care Team (Late Contact Info) Description 02/04/2024 Orders Only [facility] [address] [place] [address] India Davalos [address] [place] [address] Chronic kidney disease, stage 2 [...] Visit [facility] [address] [place] [address] Barry Reyes MD [address] [place] [address] [place] [address] documented as of this [...] Glucose 169(H) 70 - 99 mg/dL [facility] BUN 16 8 - 27 mg/dL [facility] Creatinine 1.00 0.57 - 1.00 mg/dL [facility] eGFR CKD-EPI CR 2020 63 >59 mL/min/1.7 3 [facility] BUN/Creatinine Ratio 16 12 - 28 [facility] Sodium 138 134 - 144 mmol/L [facility] Potassium 4.8 3.5 - 5.2 mmol/L [facility] Chloride 100 96 - 106 mmol/L [facility] Bicarbonate (CO2) 22 20 - 29 mmol/L [facility] Calcium 9.1 8.7 - 10.3 mg/dL [facility] Albumin 4.1 3.9 - 4.9 g/dL [facility] Phosphorus 4.2 3.0 - 4.3 mg/dL [facility] Blood specimen (specimen) Venous blood / Unknown 02/22/2024 8:29 AM EDT 02/22/2024 Barry Reyes MD LAB BLOOD ORDERABLES Final Re sult Performing Organization Address City/[facility]/ZIP Co de Phone Number [facility] [address] [place] [address] * Ferritin (02/22/2024 8:29 AM EDT) Ferritin 47 15 - 150 ng/mL [facility] Blood specimen (specimen) Venous blood / Unknown 02/22/2024 8:29 AM EDT 02/22/2024 Barry Reyes MD LAB BLOOD ORDERABLES Final Re sult Performing Organization Address [facility] de Phone Number [facility] [address] [place] [address] * (ABNORMAL) Iron Panel (Fe, TIBC, TSAT) (02/22/2024 8:29 AM EDT) Iron 39 27 - 139 ug/dL [facility] TIBC 310 250 - 450 ug/dL [facility] UIBC 271 118 - 369 ug/dL [facility] Iron Saturation (TSat) 13(L) 15 - 55 % [facility] Blood specimen (specimen) Venous blood / Unknown 02/22/2024 8:29 AM EDT 02/22/2024 Barry Reyes MD LAB BLOOD ORDERABLES Final Re sult Performing Organization Address City/[facility]/ZIP Co de Phone Number [facility] [address] [facility] [place] [id number] * (ABNORMAL) CBC and Differential (02/22/2024 8:29 AM EDT) [facility] WBC 5.9 3.4 - 10.8 x10E3/uL [facility] RBC 5.33(H) 3.77 - 5.28 x10E6/uL [facility] Hemoglobin 10.3(L) 11.1 - 15.9 g/dL [facility] Hematocrit 35.1 34.0 - 46.6 % [facility] MCV 66(L) 79 - 97 fL [facility] MCH 19.3(L) 26.6 - 33.0 pg [facility] MCHC 29.3(L) 31.5 - 35.7 g/dL [facility] RDW 19.3(H) 11.7 - 15.4 % [facility] Platelets 174 150 - 450 x10E3/uL [facility] Neutrophils Relative 71 Not Estab. % [facility] Lymphocytes Relative 21 Not Estab. % [facility] Monocytes 5 Not Estab. % [facility] Eosinophils Relative 1 Not Estab. % [facility] Basophils Relative 1 Not Estab. % [facility] Neutrophils Absolute 4.2 1.4 - 7.0 x10E3/uL [facility] Lymphocytes Absolute 1.3 0.7 - 3.1 x10E3/uL [facility] Monocytes Absolute 0.3 0.1 - 0.9 x10E3/uL [facility] Eosinophils Absolute 0.1 0.0 - 0.4 x10E3/uL [facility] Basophils Absolute 0.0 0.0 - 0.2 x10E3/uL [facility] Immature Granulocytes 1 Not Estab. % [facility] Immature Grans (Absolute) 0.0 0.0 - 0.1 x10E3/uL [facility] Blood specimen (specimen) Venous blood / Unknown 02/22/2024 8:29 AM EDT 02/22/2024 us Barry Reyes MD LAB BLOOD ORDERABLES Final Re sult [facility] [address] [place] [address] documented in this encounter Visit Diagnoses Diagnosis Chronic kidney disease, stage 2 (mild) Anemia in chronic kidney disease Iron deficiency anemia, not otherwise specified documented in this encounter Care Teams Office Cashier Relationship Specialty Start Date End Date Sahra Son MD [address] [place] [address] PCP - General Internal Medicine 10/28/22 documented as of this encounter
--- OUTSIDE RECORDS SUMMARY | 2025-03-29 10:04 | XMS_ITS | Encounter Summary ---
Author Organization [facility] Address [address] [place] [address] Phone Care Team Providers Care Timber Supervisor Name Role Phone Sahra Son MD Primary Care Provider + Encounter Details Date Type Department Care Team ([facility] Contact Info) Description 03/11/2023 Documentation Only [facility] [address] [place] [address] India Davalos [address] [place] [address] Social History Tobacco Use Types [...] Upcoming Encounters Date Type Department Care Team ([facility] Contact Info) Description 06/05/2025 2:50 PM EST Office Visit [facility] [address] [place] [address] Barry Reyes MD [address] [place] [address] [place] [address] documented as of this encounter Visit Diagnoses Not on filedocumented in this encounter Care Teams Timber Supervisor Relationship Specialty Start Date End Date Sahra Son MD [address] [address] PCP - General Internal Medicine 10/28/22 documented as of this encounter
--- OUTSIDE RECORDS SUMMARY | 2025-03-29 10:04 | XMS_ITS | Encounter Summary ---
Author Organization [facility] Address [address] [place] [address] Phone Care Team Providers Care Financial Officer Name Role Phone Sahra Son MD Primary Care Provider + Encounter Details Date Type Department Care Team ([facility] Contact Info) Description 03/23/2024 Documentation Only [facility] [address] [place] [address] India Davalos [address] [place] [address] Social History Tobacco Use Types [...] [facility] [address] [place] [address] Barry Reyes MD [address] [place] [address] [place] [address] documented as of this encounter Visit Diagnoses Not on filedocumented in this encounter Care Teams Financial Officer Relationship Specialty Start Date End Date Sahra Son MD [address] [address] PCP - General Internal Medicine 10/28/22 documented as of this encounter
--- OUTSIDE RECORDS SUMMARY | 2025-03-29 10:04 | XMS_ITS | Encounter Summary ---
Author Organization [facility] Address [address] [place] [address] Phone Care Team Providers Care Kerfer Machine Operator Name Role Phone Sahra Son MD Primary Care Provider + Encounter Details Date Type Department Care Team ([facility] Contact Info) Description 08/11/2022 Documentation Only [facility] [address] [place] [address] India Davalos [address] [place] [address] Social History Tobacco Use [...] [facility] [address] [place] [address] Barry Reyes MD [address] [place] [address] [place] [address] documented as of this encounter Visit Diagnoses Not on filedocumented in this encounter Care Teams Kerfer Machine Operator Relationship Specialty Start Date End Date Sahra Son MD [address] [address] PCP - General Internal Medicine 10/28/22 documented as of this encounter
--- OUTSIDE RECORDS SUMMARY | 2025-03-29 10:04 | XMS_ITS | Encounter Summary ---
Author Organization [facility] Address [address] [place] [address] Phone Care Team Providers Care Bolt Labeler Name Role Phone Sahra Son MD Primary Care Provider + Encounter Details Date Type Department Care Team ([facility] Contact Info) Description 11/17/2023 Documentation Only [facility] [address] [place] [address] India Davalos [address] [place] [address] Social History Tobacco Use Types [...] [facility] [address] [place] [address] Barry Reyes MD [address] [place] [address] [place] [address] documented as of this encounter Visit Diagnoses Not on filedocumented in this encounter Care Teams Bolt Labeler Relationship Specialty Start Date End Date Sahra Son MD [address] [address] PCP - General Internal Medicine 10/28/22 documented as of this encounter
--- OUTSIDE RECORDS SUMMARY | 2025-03-29 10:04 | XMS_ITS | Encounter Summary ---
Author Organization [facility] Address [address] [place] [address] Phone Care Team Providers Care Roll Builder Name Role Phone Sahra Son MD Primary Care Provider + Encounter Details Date Type Department Care Team ([facility] Contact Info) Description 11/11/2023 Documentation Only [facility] [address] [place] [address] India Davalos [address] [place] [address] Social History Tobacco Use Types [...] Upcoming Encounters Date Type Department Care Team ([facility] Contact Info) Description 06/05/2025 2:50 PM EST Office Visit [facility] [address] [place] [address] Barry Reyes MD [address] [place] [address] [place] [address] documented as of this encounter Visit Diagnoses Not on filedocumented in this encounter Care Teams Roll Builder Relationship Specialty Start Date End Date Sahra Son MD NPI: [id number] [place] [address] PCP - General Internal Medicine 10/28/22 documented as of this encounter
--- OUTSIDE RECORDS SUMMARY | 2025-03-29 10:04 | XMS_ITS | Encounter Summary ---
Author Organization [facility] Address [address] [place] [address] Phone Care Team Providers Care Gimp Tacker Name Role Phone Sahra Son MD Primary Care Provider + Encounter Details Date Type Department Care Team (Late st Contact Info) Description 05/17/2023 Orders Only [facility] [address] [place] [address] Arlene Alston PA [address] [place] [place] [address] Chronic kidney disease, stage 2 [...] [facility] [address] [place] [address] Barry Reyes MD [address] [facility] [place] [address] documented [...] (Fe, TIBC, TSAT) (06/08/2023 8:36 AM EST) Iron 49 (30-160) MCG/DL [facility] UIBC 246 (110-370) MCG/DL [facility] TIBC 295 (140-530) MCG/DL [facility] Iron Saturation (TSat) 17(L) (20-55) % [facility] Comment: Testing performed or reported by [facility], a Service of [address] [address] Luis A Bailey MD, Cycle Specialist CLIA# [id number] Blood specimen (specimen) Venous blood / Unknown 06/08/2023 8:36 AM EST 06/08/2023 8:39 AM EST Arlene CARTER LAB BLOOD ORDERABLES Final Re sult Performing Organization Address [facility] Co de Phone Number [facility] * Vitamin D 25 hydroxy (06/08/2023 8:36 AM EST) [facility] Vitamin D, 25-Hydroxy 24.8 (20-50) NG/ML [facility] Comment: Testing performed or reported by [facility], a Service of [facility], [address] [place] [address] Luis A Bailey MD, Cycle Specialist CLIA# [id number] Blood specimen (specimen) Venous blood / Unknown 06/08/2023 8:36 AM EST 06/08/2023 8:39 AM EST Arlene CARTER LAB BLOOD ORDERABLES Final Re sult Performing Organization Address City/[facility] Co de Phone Number [facility] * (ABNORMAL) Renal function panel (06/08/2023 8:36 AM EST) [facility] Glucose 166(H) (70-99) MG/DL [facility] BUN 19 (8-23) MG/DL [facility] Creatinine 1.0 (0.5-1.0) MG/DL [facility] Sodium 138 (133-145) MMOL/L [facility] Potassium 4.9 (3.6-5.2) MMOL/L [facility] Chloride 101 (98-107) MMOL/L [facility] Bicarbonate (CO2) 27 (22-29) MMOL/L [facility] Anion Gap 10 (4-17) [facility] Albumin 4.2 (3.4-4.8) GM/DL [facility] Calcium 9.1 (8.6-10.5) MG/DL [facility] Phosphorus, Serum 3.4 (2.5-4.5) MG/DL [facility] Est GFR Non 66 ML/MIN/1.7 3 M2 [facility] Comment: Creatinine based estimated glomerular filtration (eGFR) in adults is calculated using the National Kidney Foundation recommended 2020 CKD-EPI equation. Estimates GFR from serum creatinine, age and sex. Testing performed or reported by [facility], a Service of [address] [address] Luis A Bailey MD, Cycle Specialist CLIA# [id number] Blood specimen (specimen) Venous blood / Unknown 06/08/2023 8:36 AM EST 06/08/2023 8:39 AM EST Arlene CARTER LAB BLOOD ORDERABLES Final Re sult Performing Organization Address [facility] de Phone Number [facility] * Magnesium (06/08/2023 8:36 AM EST) Magnesium 2.1 (1.6-2.3) mg/dL [facility] Comment: Testing performed or reported by [facility], a Service of [address] [address] Luis A Bailey MD, Cycle Specialist CLIA# [id number] Blood specimen (specimen) Venous blood / Unknown 06/08/2023 8:36 AM EST 06/08/2023 8:39 AM EST Arlene CARTER LAB BLOOD ORDERABLES Final Re sult [facility] * (ABNORMAL) Hemoglobin A1c (06/08/2023 8:36 AM EST) Hemoglobin A1C 7.2(H) (4.0-5.6) % [facility] Comment: MONITORING: In known diabetic patients, hemoglobin A1c targets should be discussed with health care provider. DIAGNOSTIC USE: The [place] [employer] (ADA) and the World Health [...] [facility], a Service of [facility], [address] [place] [address] Luis A Bailey MD, Cycle Specialist [facility]# [id number] Blood specimen (specimen) Venous blood / Unknown 06/08/2023 8:36 AM EST 06/08/2023 8:38 AM EST Arlene CARTER LAB BLOOD ORDERABLES Final Re sult [facility] * (ABNORMAL) CBC and differential (06/08/2023 8:36 AM EST) White Blood Cells 5.2 (4.0-11.0 ) K/MM3 [facility] RBC 5.08 (4.20-5.4 0) M/MM3 [facility] Hgb 10.1(L) (11.7-15. 5) GM/DL [facility] Hematocrit 32.9(L) (35.7-45. 8) % [facility] MCV 64.8(L) (80.0-100 .0) [place] [facility] MCH 19.9(L) (27.0-34. 0) PG [facility] MCHC 30.7(L) (33.0-37. 0) g/dL [facility] Platelets 191 (150-460) K/MM3 [facility] RDW-SD 40.3 (<47.0) FL [facility] MPV NOT MEASURED (9.4-12.4 ) [place] [facility] nRBC Count 0.0 #/100 WBC'S [facility] NRBC Absolute 0.0 K/MM3 [facility] Neutrophils Abs Auto 3.5 (1.3-7.0) K/MM3 [...] (0-2) % [facility] Immature Granulocytes 0.4 % [facility] Comment: Testing performed or reported by [facility], a Service of [facility], [address] [place] [address] Luis A Bailey MD, Cycle Specialist [facility]# [id number] Blood specimen (specimen) Venous blood / Unknown 06/08/2023 8:36 AM EST 06/08/2023 8:38 AM EST Arlene CARTER LAB BLOOD ORDERABLES Final Re sult [facility] documented in this encounter Visit Diagnoses Diagnosis Chronic kidney disease, stage 2 (mild) Essential (primary) hypertension Anemia in chronic kidney disease Antiphospholipid syndrome (HCC) Type 2 diabetes mellitus, not otherwise specified (HCC) Bleeding hemorrhoids documented in this encounter Care Teams Gimp Tacker Relationship Specialty Start Date End Date Sahra Son MD [address] [address] PCP - General Internal Medicine 10/28/22 documented as of this encounter
--- OUTSIDE RECORDS SUMMARY | 2025-03-29 10:04 | XMS_ITS | Encounter Summary ---
Author Organization [facility] Address [address] [place] [address] Phone Care Team Providers Care Patient Svcs Mgr Name Role Phone Sahra Son MD Primary Care Provider + Encounter Details Date Type Department Care Team (Late Contact Info) Description 01/31/2024 Orders Only [facility] [address] [place] [address] Arlene Alston PA [address] [place] [address] [place] [address] Chronic kidney disease, stage 2 [...] [facility] [address] [place] [address] Barry Reyes MD [address] [place] [address] [place] [address] documented as of this encounter Visit Diagnoses Diagnosis Chronic kidney disease, stage 2 (mild) Essential (primary) hypertension Iron deficiency anemia, not otherwise specified Type 2 diabetes mellitus, not otherwise specified (HCC) Antiphospholipid syndrome (HCC) documented in this encounter Care Teams Patient Svcs Mgr Relationship Specialty Start Date End Date Sahra Son MD [address] [address] PCP - General Internal Medicine 10/28/22 documented as of this encounter
--- OUTSIDE RECORDS SUMMARY | 2025-03-29 10:04 | XMS_ITS | Encounter Summary ---
Author Organization [facility] Address [address] [place] [address] Phone Care Team Providers Care Fire Alarm Inspector Name Role Phone Sahra Son MD Primary Care Provider + Encounter Details Date Type Department Care Team (Late st Contact Info) Description 03/22/2024 Documentation Only [facility] [place], [address] [place] [address] India Davalos [address] [place] [address] Social History Tobacco Use Types [...] as of this encounter Functional Status * BP Answer Date of Assessment Author 112/60 03/22/2024 2:59 PM Arlene Willingham PA * Height Answer Date of Assessment Author 67 03/22/2024 2:59 PM Arlene Willingham PA * Weight Answer Date of Assessment Author 3430.4 03/22/2024 2:59 PM Arlene Willingham PA * BMI (Calculated) Answer Date of Assessment Author 33.6 03/22/2024 2:59 PM Arlene Willingham PA * BP Location Answer Date of Assessment Author Right upper arm 03/22/2024 2:59 PM Arlene Willingham PA * BP Answer Date of Assessment Author 112/60 03/22/2024 2:59 PM EST Arlene Alston PA * Height Answer Date of Assessment Author 67 03/22/2024 2:59 PM Arlene Willingham PA * Weight Answer Date of Assessment Author 3430.4 03/22/2024 2:59 PM Arlene Willingham PA * BMI (Calculated) Answer Date of Assessment Author 33.6 03/22/2024 2:59 PM EST Arlene Alston PA * BP Location Answer Date of Assessment Author Right upper arm 03/22/2024 2:59 PM Arlene Willingham PA documented as of this encounter Plan of Treatment Upcoming Encounters Date Type Department Care Team ([facility] st Contact Info) Description 06/05/2025 2:50 PM EST Office Visit [facility] [place], [address] [place] [address] Barry Reyes MD [address] [place] [address] [place]. [place] [address] documented as of this encounter Visit Diagnoses Not on filedocumented in this encounter Care Teams Fire Alarm Inspector Relationship Specialty Start Date End Date Sahra Son MD [address] [address] PCP - General Internal Medicine 10/28/22 documented as of this encounter
--- OUTSIDE RECORDS SUMMARY | 2025-03-29 10:04 | XMS_ITS | Encounter Summary ---
Author Organization [facility] Address [address] [place] [address] Phone Care Team Providers Care Shipping Helper Name Role Phone Sahra Son MD Primary Care Provider + Encounter Details Date Type Department Care Team ([facility] Contact Info) Description 11/11/2023 Documentation Only [facility] [address] [place] [address] India Davalos [address] [place] [address] Social History Tobacco Use Types [...] ([facility] Contact Info) Description 06/05/2025 2:50 PM EST Office Visit [facility] [address] [place] [address] Barry Reyes MD [address] [place] [address] [place] [address] documented as of this encounter Visit Diagnoses Not on filedocumented in this encounter Care Teams Shipping Helper Relationship Specialty Start Date End Date Sahra Son MD NPI: [id number] [place] [address] PCP - General Internal Medicine 10/28/22 documented as of this encounter
--- OUTSIDE RECORDS SUMMARY | 2025-03-29 10:05 | XMS_ITS | Encounter Summary ---
Author Organization [facility] Address [address] [place] [address] Phone Care Team Providers Care Block Greaser Name Role Phone Sahra Son MD Primary Care Provider + Encounter Details Date Type Department Care Team ([facility] Contact Info) Description 12/18/2024 Documentation Only [facility] [address] [place] [address] India Davalos [address] [place] [address] Social History Tobacco Use [...] [facility] [address] [place] [address] Barry Reyes MD [address] [place] [address] [place] [address] documented as of this encounter Visit Diagnoses Not on filedocumented in this encounter Care Teams Block Greaser Relationship Specialty Start Date End Date Sahra Son MD [address] [address] PCP - General Internal Medicine 10/28/22 documented as of this encounter
--- OUTSIDE RECORDS SUMMARY | 2025-03-29 10:05 | XMS_ITS | Encounter Summary ---
Author Organization [facility] Address [address] [place] [address] Phone Care Team Providers Care Golf Manager Name Role Phone Sahra Son MD Primary Care Provider + Encounter Details Date Type Department Care Team (Late Contact Info) Description 02/16/2025 Orders Only [facility] [address] [place] [address] India Davalos [address] [place] [address] Anemia in chronic kidney disease; [...] Services Of [facility] [address] [place] [address] Barry Reyes MD [address] [place] [address] [place] [address] documented as of this encounter [...] Glucose 318(H) 70 - 99 mg/dL [facility] BUN 14 8 - 27 mg/dL [facility] Creatinine 1.01(H) 0.57 - 1.00 mg/dL [facility] eGFR CKD-EPI CR 2020 62 >59 mL/min/1.7 3 [facility] BUN/Creatinine Ratio 14 12 - 28 [facility] Sodium 137 134 - 144 mmol/L [facility] Potassium 4.8 3.5 - 5.2 mmol/L [facility] Chloride 99 96 - 106 mmol/L [facility] Bicarbonate (CO2) 22 20 - 29 mmol/L [facility] Calcium 9.3 8.7 - 10.3 mg/dL [facility] Albumin 4.2 3.9 - 4.9 g/dL [facility] Phosphorus 3.9 3.0 - 4.3 mg/dL [facility] Blood specimen (specimen) Venous blood / Unknown 02/19/2025 9:33 AM EDT 02/19/2025 us Barry Reyes MD LAB BLOOD ORDERABLES Final Re sult Performing Organization Address City/[facility]/ZIP Co de Phone Number [facility] [address] [place] [address] * (ABNORMAL) Ferritin (02/19/2025 9:33 AM EDT) Ferritin 156(H) 15 - 150 ng/mL [facility] Blood specimen (specimen) Venous blood / Unknown 02/19/2025 9:33 AM EDT 02/19/2025 Barry Reyes MD LAB BLOOD ORDERABLES Final Re sult Performing Organization Address [facility] de Phone Number [facility] [address] [place] [address] * Iron Panel (Fe, TIBC, TSAT) (02/19/2025 9:33 AM EDT) TIBC 263 250 - 450 ug/dL [facility] UIBC 219 118 - 369 ug/dL [facility] Iron 44 27 - 139 ug/dL [facility] Iron Saturation (TSat) 17 15 - 55 % [facility] Blood specimen (specimen) Venous blood / Unknown 02/19/2025 9:33 AM EDT 02/19/2025 us Barry Reyes MD LAB BLOOD ORDERABLES Final Re sult Performing Organization Address City/[facility]/ZIP Co de Phone Number [facility] [address] [place] [address] * (ABNORMAL) CBC and Differential (02/19/2025 9:33 AM EDT) [facility] WBC 8.3 3.4 - 10.8 x10E3/uL [facility] RBC 5.45(H) 3.77 - 5.28 x10E6/uL [facility] Hemoglobin 11.2 11.1 - 15.9 g/dL [facility] Hematocrit 38.3 34.0 - 46.6 % [facility] MCV 70(L) 79 - 97 fL [facility] MCH 20.6(L) 26.6 - 33.0 pg [facility] MCHC 29.2(L) 31.5 - 35.7 g/dL [facility] RDW 18.0(H) 11.7 - 15.4 % [facility] Platelets 217 150 - 450 x10E3/uL [facility] Neutrophils Relative 73 Not Estab. % [facility] Lymphocytes Relative 18 Not Estab. % [facility] Monocytes 5 Not Estab. % [facility] Eosinophils Relative 2 Not Estab. % [facility] Basophils Relative 1 Not Estab. % [facility] Neutrophils Absolute 6.2 1.4 - 7.0 x10E3/uL [facility] Lymphocytes Absolute 1.5 0.7 - 3.1 x10E3/uL [facility] Monocytes Absolute 0.4 0.1 - 0.9 x10E3/uL [facility] Eosinophils Absolute 0.1 0.0 - 0.4 x10E3/uL [facility] Basophils Absolute 0.1 0.0 - 0.2 x10E3/uL [facility] Immature Granulocytes 0 Not Estab. % [facility] Immature Grans (Absolute) 0.0 0.0 - 0.1 x10E3/uL [facility] Blood specimen (specimen) Venous blood / Unknown 02/19/2025 9:33 AM EDT 02/19/2025 us Barry Reyes MD LAB BLOOD ORDERABLES Final Re sult [facility] [address] [place] [address] documented in this encounter Visit Diagnoses Diagnosis Anemia in chronic kidney disease Other iron deficiency anemia Chronic kidney disease, stage 2 (mild) documented in this encounter Care Teams Golf Manager Relationship Specialty [place] [address] [place] [address] PCP - General Internal Medicine 10/28/22 documented as of this encounter
--- OUTSIDE RECORDS SUMMARY | 2025-03-29 10:05 | XMS_ITS | Encounter Summary ---
Author Organization [facility] Address [address] [place] [address] Phone Care Team Providers Care Material Liaison Name Role Phone Sahra Son MD Primary Care Provider + Encounter Details Date Type Department Care Team ([facility] Contact Info) Description 10/30/2022 Documentation Only [facility] [address] [place] [address] India Davalos [address] [place], [place] [...] [facility] [address] [place] [address] Barry Reyes MD [address] [place] [address] [place] [address] documented as of this encounter Visit Diagnoses Not on filedocumented in this encounter Care Teams Material Liaison Relationship Specialty Start Date End Date Sahra Son MD [address] [address] PCP - General Internal Medicine 10/28/22 documented as of this encounter
--- OUTSIDE RECORDS SUMMARY | 2025-03-29 10:05 | XMS_ITS | Encounter Summary ---
Author Organization [facility] Address [address] [place] [address] Phone Care Team Providers Care Draughtsman Name Role Phone Sahra Son MD Primary Care Provider + Encounter Details Date Type Department Care Team ([facility] Contact Info) Description 04/05/2024 Documentation Only [facility] [address] [place] [address] India Davalos [address] [place], [...] [facility] [address] [place] [address] Barry Reyes MD [address] [place] [address] [place] [address] documented as of this encounter Visit Diagnoses Not on filedocumented in this encounter Care Teams Draughtsman Relationship Specialty Start Date End Date Sahra Son MD [address] [address] PCP - General Internal Medicine 10/28/22 documented as of this encounter
--- OUTSIDE RECORDS SUMMARY | 2025-03-29 10:05 | XMS_ITS | Encounter Summary ---
Author Organization [facility] Address [address] [place] [address] Phone Care Team Providers Care Sleeve Wheel Maker Name Role Phone Sahra Son MD Primary Care Provider + Encounter Details Date Type Department Care Team (Late Contact Info) Description 04/28/2024 Orders Only [facility] [address] [place] [address] India Davalos [address] [place] [address] Chronic kidney disease, stage 2 [...] Visit [facility] [address] [place] [address] Barry Reyes MD [address] [place] [address] [place] [address] documented as of this encounter [...] Glucose 153(H) 70 - 99 mg/dL [facility] BUN 17 8 - 27 mg/dL [facility] Creatinine 0.98 0.57 - 1.00 mg/dL [facility] eGFR CKD-EPI CR 2020 64 >59 mL/min/1.7 3 [facility] BUN/Creatinine Ratio 17 12 - 28 [facility] Sodium 142 134 - 144 mmol/L [facility] Potassium 5.0 3.5 - 5.2 mmol/L [facility] Chloride 106 96 - 106 mmol/L [facility] Bicarbonate (CO2) 23 20 - 29 mmol/L [facility] Calcium 8.9 8.7 - 10.3 mg/dL [facility] Albumin 3.9 3.9 - 4.9 g/dL [facility] Phosphorus 3.9 3.0 - 4.3 mg/dL [facility] Blood specimen (specimen) Venous blood / Unknown 05/05/2024 9:18 AM EST 05/05/2024 Barry Reyes MD LAB BLOOD ORDERABLES Final Re sult Performing Organization Address City/[facility]/ZIP Co de Phone Number [facility] [address] [place] [address] * (ABNORMAL) Ferritin (05/05/2024 9:18 AM EST) Ferritin 282(H) 15 - 150 ng/mL [facility] Blood specimen (specimen) Venous blood / Unknown 05/05/2024 9:18 AM EST 05/05/2024 Barry Reyes MD LAB BLOOD ORDERABLES Final Re sult Performing Organization Address [facility] de Phone Number [facility] [address] [place] [address] * Iron Panel (Fe, TIBC, TSAT) (05/05/2024 9:18 AM EST) TIBC 277 250 - 450 ug/dL [facility] UIBC 210 118 - 369 ug/dL [facility] Iron 67 27 - 139 ug/dL [facility] Iron Saturation (TSat) 24 15 - 55 % [facility] Blood specimen (specimen) Venous blood / Unknown 05/05/2024 9:18 AM EST 05/05/2024 Barry Reyes MD LAB BLOOD ORDERABLES Final Re sult Performing Organization Address City/[facility]/ZIP Co de Phone Number [facility] [address] [place] [address] * (ABNORMAL) CBC and Differential (05/05/2024 9:18 AM EST) WBC 5.6 3.4 - 10.8 x10E3/uL [facility] RBC 5.33(H) 3.77 - 5.28 x10E6/uL [facility] Hemoglobin 10.2(L) 11.1 - 15.9 g/dL [facility] Hematocrit 35.0 34.0 - 46.6 % [facility] MCV 66(L) 79 - 97 fL [facility] MCH 19.1(L) 26.6 - 33.0 pg [facility] MCHC 29.1(L) 31.5 - 35.7 g/dL [facility] RDW 20.1(H) 11.7 - 15.4 % [facility] Platelets 163 150 - 450 x10E3/uL [facility] Neutrophils Relative 64 Not Estab. % [facility] Lymphocytes Relative 26 Not Estab. % [facility] Monocytes 6 Not Estab. % [facility] Eosinophils Relative 3 Not Estab. % [facility] Basophils Relative 1 Not Estab. % [facility] Neutrophils Absolute 3.6 1.4 - 7.0 x10E3/uL [facility] Lymphocytes Absolute 1.5 0.7 - 3.1 x10E3/uL [facility] Monocytes Absolute 0.3 0.1 - 0.9 x10E3/uL [facility] Eosinophils Absolute 0.2 0.0 - 0.4 x10E3/uL [facility] Basophils Absolute 0.0 0.0 - 0.2 x10E3/uL [facility] Immature Granulocytes 0 Not Estab. % [facility] Immature Grans (Absolute) 0.0 0.0 - 0.1 x10E3/uL [facility] Blood specimen (specimen) Venous blood / Unknown 05/05/2024 9:18 AM EST 05/05/2024 us Barry Reyes MD LAB BLOOD ORDERABLES Final Re sult [facility] [address] [place] [address] documented in this encounter Visit Diagnoses Diagnosis Chronic kidney disease, stage 2 (mild) Anemia in chronic kidney disease Iron deficiency anemia, not otherwise specified documented in this encounter Care Teams Sleeve Wheel Maker Relationship Specialty Start Date End Date Sahra Son MD [address] [place] [address] PCP - General Internal Medicine 10/28/22 documented as of this encounter
--- OUTSIDE RECORDS SUMMARY | 2025-03-29 10:05 | XMS_ITS | Encounter Summary ---
Author Organization [facility] Address [address] [place] [address] Phone Care Team Providers Care Supervising Film Or Videotape Editor Name Role Phone Sahra Son MD Primary Care Provider + Encounter Details Date Type Department Care Team ([facility] Contact Info) Description 07/16/2023 Documentation Only [facility] [address] [place] [address] India Davalos [address] [place] [address] Social History Tobacco Use Types [...] [facility] [address] [place] [address] Barry Reyes MD [address] [place] [address] [place] [address] documented as of this encounter Visit Diagnoses Not on filedocumented in this encounter Care Teams Supervising Film Or Videotape Editor Relationship Specialty Start Date End Date Sahra Son MD [address] [address] PCP - General Internal Medicine 10/28/22 documented as of this encounter
--- OUTSIDE RECORDS SUMMARY | 2025-03-29 10:05 | XMS_ITS | Encounter Summary ---
Author Organization [facility] Address [address] [place] [address] Phone Care Team Providers Care Health Care Manager Name Role Phone Sahra Son MD Primary Care Provider + Encounter Details Date Type Department Care Team ([facility] Contact Info) Description 03/11/2023 Documentation Only [facility] [address] [place] [address] India Davalos [address] [place] [address] Social History Tobacco Use [...] Upcoming Encounters Date Type Department Care Team ([facility] Contact Info) Description 06/05/2025 2:50 PM EST Office Visit [facility] [address] [place] [address] Barry Reyes MD [address] [place] [address] [place] [address] documented as of this encounter Visit Diagnoses Not on filedocumented in this encounter Care Teams Health Care Manager Relationship Specialty Start Date End Date Sahra Son MD [address] [address] PCP - General Internal Medicine 10/28/22 documented as of this encounter
--- OUTSIDE RECORDS SUMMARY | 2025-03-29 10:05 | XMS_ITS | Encounter Summary ---
Author Organization [facility] Address [address] [place] [address] Phone Care Team Providers Care Supplier Development Manager Name Role Phone Sahra Son MD Primary Care Provider + Encounter Details Date Type Department Care Team ([facility] Contact Info) Description 10/26/2022 Documentation Only [facility] [address] [place] [address] India Davalos [address] [place] [address] Social History Tobacco Use Types [...] [facility] [address] [place] [address] Barry Reyes MD [address] [place] [address] [place] [address] documented as of this encounter Visit Diagnoses Not on filedocumented in this encounter Care Teams Supplier Development Manager Relationship Specialty Start Date End Date Sahra Son MD [address] [address] PCP - General Internal Medicine 10/28/22 documented as of this encounter
--- OUTSIDE RECORDS SUMMARY | 2025-03-29 10:05 | XMS_ITS | Encounter Summary ---
Author Organization [facility] Address [address] [place] [address] Phone Care Team Providers Care High School Music Director Name Role Phone Sahra Son MD Primary Care Provider + Encounter Details Date Type Department Care Team ([facility] Contact Info) Description 08/27/2021 Documentation Only [facility] [address] [place] [address] India Davalos [address] [place] [address] Social History Tobacco Use Types [...] [facility] [address] [place] [address] Barry Reyes MD [address] [place] [address] [place] [address] documented as of this encounter Visit Diagnoses Not on filedocumented in this encounter Care Teams High School Music Director Relationship Specialty Start Date End Date Sahra Son MD [address] [address] PCP - General Internal Medicine 10/28/22 documented as of this encounter
--- OUTSIDE RECORDS SUMMARY | 2025-03-29 10:05 | XMS_ITS | Encounter Summary ---
Author Organization [facility] Address [address] [place] [address] Phone Care Team Providers Care Carcass Washer Name Role Phone Sahra Son MD Primary Care Provider + Encounter Details Date Type Department Care Team (Late Contact Info) Description 09/01/2024 Orders Only [facility] [address] [place] [address] India Davalos [address] [place] [address] Anemia in chronic kidney disease; [...] Visit [facility] [address] [place] [address] Barry Reyes MD [address] [place] [address] [place] [address] documented as of this encounter [...] Glucose 233(H) 70 - 99 mg/dL [facility] BUN 15 8 - 27 mg/dL [facility] Creatinine 1.01(H) 0.57 - 1.00 mg/dL [facility] eGFR CKD-EPI CR 2020 62 >59 mL/min/1.7 3 [facility] BUN/Creatinine Ratio 15 12 - 28 [facility] Sodium 138 134 - 144 mmol/L [facility] Potassium 4.9 3.5 - 5.2 mmol/L [facility] Chloride 101 96 - 106 mmol/L [facility] Bicarbonate (CO2) 19(L) 20 - 29 mmol/L [facility] Calcium 9.1 8.7 - 10.3 mg/dL [facility] Albumin 4.2 3.9 - 4.9 g/dL [facility] Phosphorus 3.8 3.0 - 4.3 mg/dL [facility] Blood specimen (specimen) Venous blood / Unknown 09/06/2024 8:15 AM EDT 09/06/2024 Barry Reyes MD LAB BLOOD ORDERABLES Final Re sult Performing Organization Address City/[facility]/ZIP Co de Phone Number [facility] [address] [place] [address] * Ferritin (09/06/2024 8:15 AM EDT) Ferritin 37 15 - 150 ng/mL [facility] Blood specimen (specimen) Venous blood / Unknown 09/06/2024 8:15 AM EDT 09/06/2024 Barry Reyes MD LAB BLOOD ORDERABLES Final Re sult Performing Organization Address [facility] de Phone Number [facility] [address] [place] [address] * (ABNORMAL) Iron Panel (Fe, TIBC, TSAT) (09/06/2024 8:15 AM EDT) TIBC 323 250 - 450 ug/dL [facility] UIBC 286 118 - 369 ug/dL [facility] Iron 37 27 - 139 ug/dL [facility] Iron Saturation (TSat) 11(L) 15 - 55 % [facility] Blood specimen (specimen) Venous blood / Unknown 09/06/2024 8:15 AM EDT 09/06/2024 Barry Reyes MD LAB BLOOD ORDERABLES Final Re sult Performing Organization Address City/[facility]/ZIP Co de Phone Number [facility] [address] [place] [address] * (ABNORMAL) CBC and Differential (09/06/2024 8:15 AM EDT) WBC 6.3 3.4 - 10.8 x10E3/uL [facility] RBC 5.35(H) 3.77 - 5.28 x10E6/uL [facility] Hemoglobin 10.6(L) 11.1 - 15.9 g/dL [facility] Hematocrit 35.8 34.0 - 46.6 % [facility] MCV 67(L) 79 - 97 fL [facility] MCH 19.8(L) 26.6 - 33.0 pg [facility] MCHC 29.6(L) 31.5 - 35.7 g/dL [facility] RDW 18.4(H) 11.7 - 15.4 % [facility] Platelets 190 150 - 450 x10E3/uL [facility] Neutrophils Relative 67 Not Estab. % [facility] Lymphocytes Relative 22 Not Estab. % [facility] Monocytes 6 Not Estab. % [facility] Eosinophils Relative 3 Not Estab. % [facility] Basophils Relative 1 Not Estab. % [facility] Neutrophils Absolute 4.3 1.4 - 7.0 x10E3/uL [facility] Lymphocytes Absolute 1.4 0.7 - 3.1 x10E3/uL [facility] Monocytes Absolute 0.4 0.1 - 0.9 x10E3/uL [facility] Eosinophils Absolute 0.2 0.0 - 0.4 x10E3/uL [facility] Basophils Absolute 0.1 0.0 - 0.2 x10E3/uL [facility] Immature Granulocytes 1 Not Estab. % [facility] Immature Grans (Absolute) 0.1 0.0 - 0.1 x10E3/uL [facility] Blood specimen (specimen) Venous blood / Unknown 09/06/2024 8:15 AM EDT 09/06/2024 us Barry Reyes MD LAB BLOOD ORDERABLES Final Re sult [facility] [address] [place] [address] documented in this encounter Visit Diagnoses Diagnosis Anemia in chronic kidney disease Other iron deficiency anemia Chronic kidney disease, stage 2 (mild) documented in this encounter Care Teams Carcass Washer Relationship Specialty Start Date End Date Sahra Son MD [address] [place] [address] PCP - General Internal Medicine 10/28/22 documented as of this encounter
--- OUTSIDE RECORDS SUMMARY | 2025-03-29 10:05 | XMS_ITS | Clinical Summary ---
Author Organization [facility] [place], Address [address] [place] [address] [place] [address] Phone Care Team Providers Care Network Operations Manager Name Role Phone Sahra Son MD Primary Care Provider + Allergies Active Allergy Reactions Criticality Noted Date Comments Codeine 12/26/2012 Ferumoxytol Shortness of breath,Itching,Other (see comments) High 02/27/2022 Bones hurt Iodinated Contrast Media 07/06/2022 Penicillins 12/26/2012 Other Shellfish Allergy 12/26/2012 Tramadol 07/06/2022 Trazodone 03/08/2018 Iron Sucrose 02/29/2024 Coughing fit infusion stopped at [facility] Medications Cymbalta [address] capsule TK 2 CS PO QAM 12/28/19 20 Active LORazepam (ATIVAN) 1 MG tablet TK 1 T PO BID 12/24/19 20 Active meclizine (ANTIVERT) 25 MG tablet TK 1 T PO TID PRN 12/24/19 20 Active montelukast (SINGULAIR) 10 MG tablet TK 1 T PO QD IN THE DARCY 11/19/19 20 Active Creon [address]71-[address] units capsule TK ONE C PO TID [...] Encounters Date Type Department Care Team Description 03/16/2025 Orders Only [facility] [address] [place] [address] India Davalos Anemia in chronic kidney disease; Other iron deficiency anemia; Chronic kidney disease, stage 2 (mild) 02/16/2025 Telephone [facility] [address] [place] [address] Stephanie Azul, RN 02/16/2025 Orders Only [facility] [address] [place] [address] India Davalos Anemia in chronic kidney disease; Other iron deficiency anemia; Chronic kidney disease, stage 2 (mild) 02/09/2025 Telephone [facility] [address] [place] [address] Stephanie Azul, RN 01/19/2025 Orders Only [facility] [address] [place] [address] India Davalos Anemia in chronic kidney disease; Other iron deficiency anemia; Chronic kidney disease, stage 2 (mild) 01/10/2025 Telephone [facility] [address] [place] [address] Stephanie Azul, RN from Last 3 Months Immunizations Immunization Administration [...] Visit [facility] [place], [address] [place] [address] Barry Reyes MD [address] [place] [address] Health Maintenance Due Date Last Done [...] TIBC 263 250 - 450 ug/dL [facility] UIBC 219 118 - 369 ug/dL [facility] Iron 44 27 - 139 ug/dL [facility] Iron Saturation (TSat) 17 15 - 55 % [facility] Blood specimen (specimen) Venous blood / Unknown 02/19/2025 9:33 AM EDT 02/19/2025 us Barry Reyes MD LAB BLOOD ORDERABLES Final Re sult [facility] [address] [place] [address] * (ABNORMAL) CBC and Differential (02/19/2025 9:33 AM EDT) Pathologist [facility] WBC 8.3 3.4 - 10.8 x10E3/uL [facility] RBC 5.45(H) 3.77 - 5.28 x10E6/uL [facility] Hemoglobin 11.2 11.1 - 15.9 g/dL [facility] Hematocrit 38.3 34.0 - 46.6 % [facility] MCV 70(L) 79 - 97 fL [facility] MCH 20.6(L) 26.6 - 33.0 pg [facility] MCHC 29.2(L) 31.5 - 35.7 g/dL [facility] RDW 18.0(H) 11.7 - 15.4 % [facility] Platelets 217 150 - 450 x10E3/uL [facility] Neutrophils Relative 73 Not Estab. % [facility] Lymphocytes Relative 18 Not Estab. % [facility] Monocytes 5 Not Estab. % [facility] Eosinophils Relative 2 Not Estab. % [facility] Basophils Relative 1 Not Estab. % [facility] Neutrophils Absolute 6.2 1.4 - 7.0 x10E3/uL [facility] Lymphocytes Absolute 1.5 0.7 - 3.1 x10E3/uL [facility] Monocytes Absolute 0.4 0.1 - 0.9 x10E3/uL [facility] Eosinophils Absolute 0.1 0.0 - 0.4 x10E3/uL [facility] Basophils Absolute 0.1 0.0 - 0.2 x10E3/uL [facility] Immature Granulocytes 0 Not Estab. % [facility] Immature Grans (Absolute) 0.0 0.0 - 0.1 x10E3/uL [facility] Blood specimen (specimen) Venous blood / Unknown 02/19/2025 9:33 AM EDT 02/19/2025 Barry Reyes MD LAB BLOOD ORDERABLES Final Re sult [facility] [address] [place] [address] * (ABNORMAL) Ferritin (02/19/2025 9:33 AM EDT) Ferritin 156(H) 15 - 150 ng/mL [facility] Blood specimen (specimen) Venous blood / Unknown 02/19/2025 9:33 AM EDT 02/19/2025 Barry Reyes MD LAB BLOOD ORDERABLES Final Re sult [facility] [address] [place] [address] * (ABNORMAL) Renal Function Panel (02/19/2025 9:33 AM EDT) Glucose 318(H) 70 - 99 mg/dL [facility] BUN 14 8 - 27 mg/dL [facility] Creatinine 1.01(H) 0.57 - 1.00 mg/dL [facility] eGFR CKD-EPI CR 2020 62 >59 mL/min/1.7 3 [facility] BUN/Creatinine Ratio 14 12 - 28 [facility] Sodium 137 134 - 144 mmol/L [facility] Potassium 4.8 3.5 - 5.2 mmol/L [facility] Chloride 99 96 - 106 mmol/L [facility] Bicarbonate (CO2) 22 20 - 29 mmol/L [facility] Calcium 9.3 8.7 - 10.3 mg/dL [facility] Albumin 4.2 3.9 - 4.9 g/dL [facility] Phosphorus 3.9 3.0 - 4.3 mg/dL [facility] Blood specimen (specimen) Venous blood / Unknown 02/19/2025 9:33 AM EDT 02/19/2025 Barry Reyes MD LAB BLOOD ORDERABLES Final Re sult [facility] [address] [place] [address] * (ABNORMAL) Hemoglobin A1c (06/08/2023 8:36 AM EST) Hemoglobin A1C 7.2(H) (4.0-5.6) % [facility] Comment: MONITORING: In known diabetic patients, hemoglobin A1c targets should be discussed with health care provider. DIAGNOSTIC USE: The [place] Diabetes Association (ADA) and the World Health [...] Supplement 1 Testing performed or reported by [facility], a Service of [facility], [address] [place] [address] Luis A Bailey MD, Floor Sanding Machine Operator [facility]# [id number] Blood specimen (specimen) Venous blood / Unknown 06/08/2023 8:36 AM EST 06/08/2023 8:38 AM EST us Arlene CARTER LAB BLOOD ORDERABLES Final Re sult [facility] from Last 3 Months or Most Recently Relevant to Health Maintenance Insurance [id number] Dual SNP ([id number]) [place] [id number] Care Teams Network Operations Manager Relationship Specialty Start Date End Date Sahra Son MD [address] [place] [address] PCP - General Internal Medicine 10/28/22
--- OUTSIDE RECORDS SUMMARY | 2025-03-29 10:05 | XMS_ITS | Encounter Summary ---
Author Organization [facility] Address [address] [place] [address] Phone Care Team Providers Care Crude Oil Driver Name Role Phone Sahra Son MD Primary Care Provider + Encounter Details Date Type Department Care Team ([facility] Contact Info) Description 01/29/2023 Documentation Only [facility] [address] [place] [address] India Davalos [address] [place] [address] Social History Tobacco Use Types [...] [facility] [address] [place] [address] Barry Reyes MD [address] [place] [address] [place] [address] documented as of this encounter Visit Diagnoses Not on filedocumented in this encounter Care Teams Crude Oil Driver Relationship Specialty Start Date End Date Sahra Son MD [address] [address] PCP - General Internal Medicine 10/28/22 documented as of this encounter
--- OUTSIDE RECORDS SUMMARY | 2025-03-29 10:05 | XMS_ITS | Encounter Summary ---
Author Organization [facility] Address [address] [place] [address] Phone Care Team Providers Care Compensation And Benefits Administrator Name Role Phone Sahra Son MD Primary Care Provider + Encounter Details Date Type Department Care Team (Late st Contact Info) Description 08/22/2021 Documentation Only [facility] [place], [address] [place] [address] India Davalos [address] [place] [address] Social History Tobacco Use Types [...] * Question Answer Date of Assessment Author [id number] 08/25/2021 4:29 PM Arlene Leung PA Height 66 08/25/2021 4:29 PM Arlene Leung PA Weight 3320 08/25/2021 4:29 PM Arlene Leung PA * BMI (Calculated) Answer Date of Assessment Author 33.5 08/25/2021 4:29 PM Arlene Hudson PA * BP Location Answer Date of Assessment Author Right upper arm 08/25/2021 4:29 PM Arlene Hudson PA * [place] [id number] 08/25/2021 4:29 PM EDT Arlene Naqvi PA Height 66 08/25/2021 4:29 PM EDT Arlene Naqvi PA Weight 3320 08/25/2021 4:29 PM EDT Arlene Naqvi PA * BMI (Calculated) Answer Date of Assessment Author 33.5 08/25/2021 4:29 PM EDT Arlene Alston PA * BP Location Answer Date of Assessment Author Right upper arm 08/25/2021 4:29 PM EDT Arlene Alston PA documented as of this encounter Plan of Treatment Upcoming Encounters Date Type Department Care Team (Late st Contact Info) Description 06/05/2025 2:50 PM EST Office Visit [facility] [address] [place] [phone] Barry Reyes MD [address] [place] [address] [place] [phone] documented as of this encounter Visit Diagnoses Not on filedocumented in this encounter Care Teams Compensation And Benefits Administrator Relationship Specialty Start Date End Date Sahra Son MD [address] [address] PCP - General Internal Medicine 10/28/22 documented as of this encounter
--- OUTSIDE RECORDS SUMMARY | 2025-03-29 10:05 | XMS_ITS | Encounter Summary ---
Author Organization [facility] Address [address] [place] [address] Phone Care Team Providers Care Social Science Research Assistant Name Role Phone Sahra Son MD Primary Care Provider + Encounter Details Date Type Department Care Team ([facility] Contact Info) Description 06/09/2023 Documentation Only [facility] [address] [place] [address] India Davalos [address] [place] [address] Social History Tobacco Use Types [...] [facility] [address] [place] [address] Barry Reyes MD [address] [place] [address] [place] [address] documented as of this encounter Visit Diagnoses Not on filedocumented in this encounter Care Teams Social Science Research Assistant Relationship Specialty Start Date End Date Sahra Son MD [address] [address] PCP - General Internal Medicine 10/28/22 documented as of this encounter
--- OUTSIDE RECORDS SUMMARY | 2025-03-29 10:05 | XMS_ITS | Encounter Summary ---
Author Organization [facility] Address [address] [place] [address] Phone Care Team Providers Care Salad Maker Name Role Phone Sahra Son MD Primary Care Provider + Encounter Details Date Type Department Care Team ([facility] Contact Info) Description 06/25/2021 Documentation Only [facility] [address] [place] [address] India Davalos [address] [place] [address] Social History Tobacco Use Types [...] [facility] [address] [place] [address] Barry Reyes MD [address] [place] [address] [place] [address] documented as of this encounter Visit Diagnoses Not on filedocumented in this encounter Care Teams Salad Maker Relationship Specialty Start Date End Date Sahra Son MD [address] [address] PCP - General Internal Medicine 10/28/22 documented as of this encounter
--- OUTSIDE RECORDS SUMMARY | 2025-03-29 10:05 | XMS_ITS | Encounter Summary ---
Author Organization [facility] Address [address] [place] [address] Phone Care Team Providers Care Marine Radio Installer And Servicer Name Role Phone Sahra Son MD Primary Care Provider + Encounter Details Date Type Department Care Team ([facility] Contact Info) Description 12/24/2022 Documentation Only [facility] [address] [place] [address] Carol Whelan [address] [place] [address] Social History Tobacco Use Types [...] [facility] [address] [place] [address] Barry Reyes MD [address] [place] [address] [place] [address] documented as of this encounter Visit Diagnoses Not on filedocumented in this encounter Care Teams Marine Radio Installer And Servicer Relationship Specialty Start Date End Date Sahra Son MD [address] [address] PCP - General Internal Medicine 10/28/22 documented as of this encounter
--- OUTSIDE RECORDS SUMMARY | 2025-03-29 10:05 | XMS_ITS | Encounter Summary ---
Author Organization [facility] Address [address] [place] [address] Phone Care Team Providers Care Train Braker Name Role Phone Sahra Son MD Primary Care Provider + Encounter Details Date Type Department Care Team ([facility] Contact Info) Description 07/16/2023 Documentation Only [facility] [address] [place] [address] India Davalos [address] [place] [address] Social History Tobacco Use Types [...] [facility] [address] [place] [address] Barry Reyes MD [address] [place] [address] [place] [address] documented as of this encounter Visit Diagnoses Not on filedocumented in this encounter Care Teams Train Braker Relationship Specialty Start Date End Date Sahra Son MD [address] [address] PCP - General Internal Medicine 10/28/22 documented as of this encounter
--- OUTSIDE RECORDS SUMMARY | 2025-03-29 10:05 | XMS_ITS | Encounter Summary ---
Author Organization [facility] Address [address] [place] [address] Phone Care Team Providers Care Gun Mechanic Name Role Phone Sahra Son MD Primary Care Provider + Encounter Details Date Type Department Care Team ([facility] Contact Info) Description 08/09/2023 Documentation Only [facility] [address] [place] [address] India Davalos [address] [place] [address] Social History Tobacco Use Types [...] [facility] [address] [place] [address] Barry Reyes MD [address] [place] [address] [place] [address] documented as of this encounter Visit Diagnoses Not on filedocumented in this encounter Care Teams Gun Mechanic Relationship Specialty Start Date End Date Sahra Son MD [address] [address] PCP - General Internal Medicine 10/28/22 documented as of this encounter
--- OUTSIDE RECORDS SUMMARY | 2025-03-29 10:05 | XMS_ITS | Encounter Summary ---
Author Organization [facility] Address [address] [place] [address] Phone Care Team Providers Care Pharmacy Buyer Name Role Phone Sahra Son MD Primary Care Provider + Encounter Details Date Type Department Care Team (Late Contact Info) Description 10/27/2024 Orders Only [facility] [address] [place] [address] India Davalos [address] [place] [address] Anemia in chronic kidney disease; [...] Visit [facility] [address] [facility] [place] [address] Barry Reyes MD [address] [place] [address] [place] [address] documented as of this [...] Glucose 238(H) 70 - 99 mg/dL [facility] BUN 15 8 - 27 mg/dL [facility] Creatinine 0.96 0.57 - 1.00 mg/dL [facility] eGFR CKD-EPI CR 2020 66 >59 mL/min/1.7 3 [facility] BUN/Creatinine Ratio 16 12 - 28 [facility] Sodium 137 134 - 144 mmol/L [facility] Potassium 4.7 3.5 - 5.2 mmol/L [facility] Chloride 100 96 - 106 mmol/L [facility] Bicarbonate (CO2) 20 20 - 29 mmol/L [facility] Calcium 9.0 8.7 - 10.3 mg/dL [facility] Albumin 4.3 3.9 - 4.9 g/dL [facility] Phosphorus 2.8(L) 3.0 - 4.3 mg/dL [facility] Blood specimen (specimen) Venous blood / Unknown 11/01/2024 8:45 AM EDT 11/01/2024 Barry Reyes MD LAB BLOOD ORDERABLES Final Re sult [facility] [address] [place] [address] * (ABNORMAL) Ferritin (11/01/2024 8:45 AM EDT) Ferritin 480(H) 15 - 150 ng/mL [facility] Blood specimen (specimen) Venous blood / Unknown 11/01/2024 8:45 AM EDT 11/01/2024 Barry Reyes MD LAB BLOOD ORDERABLES Final Re sult Performing Organization Address [facility] Co de Phone Number [facility] [address] [place] [address] * (ABNORMAL) Iron Panel (Fe, TIBC, TSAT) (11/01/2024 8:45 AM EDT) TIBC 238(L) 250 - 450 ug/dL [facility] UIBC 168 118 - 369 ug/dL [facility] Iron 70 27 - 139 ug/dL [facility] Iron Saturation (TSat) 29 15 - 55 % [facility] Blood specimen (specimen) Venous blood / Unknown 11/01/2024 8:45 AM EDT 11/01/2024 Barry Reyes MD LAB BLOOD ORDERABLES Final Re sult [facility] [address] [place] [address] * (ABNORMAL) CBC and Differential (11/01/2024 8:45 AM EDT) [facility] WBC 6.6 3.4 - 10.8 x10E3/uL [facility] RBC 5.45(H) 3.77 - 5.28 x10E6/uL [facility] Hemoglobin 11.2 11.1 - 15.9 g/dL [facility] Hematocrit 38.3 34.0 - 46.6 % [facility] MCV 70(L) 79 - 97 fL [facility] MCH 20.6(L) 26.6 - 33.0 pg [facility] MCHC 29.2(L) 31.5 - 35.7 g/dL [facility] RDW 18.8(H) 11.7 - 15.4 % [facility] Platelets 175 150 - 450 x10E3/uL [facility] Neutrophils Relative 71 Not Estab. % [facility] Lymphocytes Relative 20 Not Estab. % [facility] Monocytes 6 Not Estab. % [facility] Eosinophils Relative 1 Not Estab. % [facility] Basophils Relative 1 Not Estab. % [facility] Neutrophils Absolute 4.7 1.4 - 7.0 x10E3/uL [facility] Lymphocytes Absolute 1.3 0.7 - 3.1 x10E3/uL [facility] Monocytes Absolute 0.4 0.1 - 0.9 x10E3/uL [facility] Eosinophils Absolute 0.1 0.0 - 0.4 x10E3/uL [facility] Basophils Absolute 0.1 0.0 - 0.2 x10E3/uL [facility] Immature Granulocytes 1 Not Estab. % [facility] Immature Grans (Absolute) 0.0 0.0 - 0.1 x10E3/uL [facility] Blood specimen (specimen) Venous blood / Unknown 11/01/2024 8:45 AM EDT 11/01/2024 us Barry Reyes MD LAB BLOOD ORDERABLES Final Re sult [facility] [address] [place] [address] documented in this encounter Visit Diagnoses Diagnosis Anemia in chronic kidney disease Other iron deficiency anemia Chronic kidney disease, stage 2 (mild) documented in this encounter Care Teams Pharmacy Buyer Relationship Specialty Start Date End Date Sahra Son MD [address] [place] [address] PCP - General Internal Medicine 10/28/22 documented as of this encounter
--- OUTSIDE RECORDS SUMMARY | 2025-03-29 10:05 | XMS_ITS | Clinical Summary ---
Author Organization [facility] Address [address] [place] [address] Phone Care Team Providers Care Cupola Operator Name Role Phone Sahra Son MD Primary Care Provider + Surgical History Surgery Date Site/Laterality Comments OTHER SURGICAL HISTORY 1975 PROCEDURE: [place] ECTOPIC ABDOMINAL/VAGINAL APPR PARTIAL HYSTERECTOMY PROCEDURE: [place] SUPRACERVICAL ABDL HYSTER W/WO RMVL TUBE OVARY CHOLECYSTECTOMY 1982 PROCEDURE: HISTORICAL CHOLECYSTECTOMY CARPAL TUNNEL RELEASE 11/21/2014 Left PROCEDURE: HISTORICAL CARPAL TUNNEL REL BOWEL RESECTION 03/2004 PROCEDURE: HISTORICAL BOWEL RESECTION; COMMENT: bowel obstruction Medical History Medical History Date Comments Diverticulosis DX:Diverticulosi s CHF (congestive heart failur e) ([facility] V24, [facility] V28) DX:CHF (congestive heart fa ilure) ([facility]) COPD (chronic obstructive pu lmonary disease) ([facility] V24, [facility] V28) DX:COPD (chronic o bstructive pulmonary disease) ([facility]) Osteoporosis DX:Osteoporosis Fibromyalgia DX:Fibromyalgia Myelofibrosis ([facility] V24, [facility] V28) DX:Myelofibrosis ([facility]); COMM ENT: diagnosed 8 years ago, follows with DR layne Meningioma ([facility] V24, [facility] V28) DX:Meningioma ([facility]) Asthma DX:Asthma Gout DX:Gout Seizures ([facility] V24, [facility] V28) DX[facility]Seizures ([facility]) Lupus DX:Lupus Depression DX:Depression; C OMMENT: follows at [facility] net at [facility] Hypercoagulable state ([facility] V24) DX:Hypercoagulable state ([facility]); COMMENT: on coumadin Neurogenic bladder DX:Neurogenic bladder; COMMENT: flowers dependent Supplemental oxygen dependent DX :Supplemental oxygen dependent Lung nodule 03/22/2017 DX:Lung nodule ALESSANDRA (obstructive sleep apnea) 03/22/2017 DX :ALESSANDRA (obstructive sleep apnea) GERD (gastroesophageal reflux disease) 03/22/2017 DX:GERD (gastroesophageal reflux disease) Anxiety 03/22/2017 DX:Anxiety Dementia ([facility] V24, [facility] V28) 03/22/2017 DX:Dementia (HCC) Schizophrenia ([facility] V24, [facility] V28) 03/22/2017 DX:Schizophrenia ([facility]) Glaucoma 03/22/2017 DX:Glaucoma History of stroke DX:History of stroke History of deep vein thrombosis DX:History of deep vein thrombosis Coronary artery disease DX:Coron christine artery disease; COMMENT: Old [place] Diabetes mellitus type 2 wit h neurological manifestations ([facility] V24, [facility] V28) DX:Diabetes mellitus type 2 with neurological manifestations ([facility]) Leukemia ([facility] V24, [facility] V28) 09/02/2017 DX:Leukemia ([facility]) MDS (myelodysplastic syndrom e) ([facility] V24, [facility] V28) 09/02/2017 DX:MDS (myelodysplastic syn drome) ([facility]) Hyperthyroidism 09/02/2017 DX:Hyperthyroidi sm History of TIA [...] EDT Consult Gastroenterology - [address] [facility] [address] [place] [id number] Deloris Vickers PA [address] [facility] [address] [place] [address] Health Maintenance Due Date Last Done Comments [...] ID:[id number] Type:Not on file Address: [place] [address] [address] [address] Care Teams Cupola Operator Relationship Specialty Start Date End Date Sahra Son MD [address] [place] [address] PCP - General Internal Medicine 11/15/24
--- OUTSIDE RECORDS SUMMARY | 2025-03-29 10:05 | XMS_ITS | Encounter Summary ---
Author Organization [facility] Address [address] [place] [address] Phone Care Team Providers Care Tax Audit Manager Name Role Phone Sahra Son MD Primary Care Provider + Encounter Details Date Type Department Care Team ([facility] Contact Info) Description 02/01/2023 Documentation Only [facility] [address] [place] [address] India Davalos [address] [place], [...] [facility] [address] [place] [address] Barry Reyes MD [address] [place] [address] [place] [address] documented as of this encounter Visit Diagnoses Not on filedocumented in this encounter Care Teams Tax Audit Manager Relationship Specialty Start Date End Date Sahra Son MD [address] [address] PCP - General Internal Medicine 10/28/22 documented as of this encounter
--- OUTSIDE RECORDS SUMMARY | 2025-03-29 10:05 | XMS_ITS | Encounter Summary ---
Author Organization [facility] Address [address] [place] [address] Phone Care Team Providers Care Director Motion Picture Name Role Phone Sahra Son MD Primary Care Provider + Encounter Details Date Type Department Care Team (Late Contact Info) Description 08/04/2024 Orders Only [facility] [address] [place] [address] India Davalos [address] [place] [address] Anemia in chronic kidney disease; [...] Visit [facility] [address] [place] [address] Barry Reyes MD [address] [place] [address] [place] [address] documented as of this encounter [...] Glucose 168(H) 70 - 99 mg/dL [facility] BUN 15 8 - 27 mg/dL [facility] Creatinine 0.93 0.57 - 1.00 mg/dL [facility] eGFR CKD-EPI CR 2020 69 >59 mL/min/1.7 3 [facility] BUN/Creatinine Ratio 16 12 - 28 [facility] Sodium 139 134 - 144 mmol/L [facility] Chloride 103 96 - 106 mmol/L [facility] Bicarbonate (CO2) 24 20 - 29 mmol/L [facility] Calcium 8.8 8.7 - 10.3 mg/dL [facility] Phosphorus 3.8 3.0 - 4.3 mg/dL [facility] Albumin 4.1 3.9 - 4.9 g/dL [facility] Potassium 4.8 3.5 - 5.2 mmol/L [facility] Blood specimen (specimen) Venous blood / Unknown 08/07/2024 8:15 AM EDT 08/07/2024 Barry Reyes MD LAB BLOOD ORDERABLES Final Re sult Performing Organization Address City/[facility]/ZIP Co de Phone Number [facility] [address] [place] [address] * Ferritin (08/07/2024 8:15 AM EDT) Ferritin 55 15 - 150 ng/mL [facility] Blood specimen (specimen) Venous blood / Unknown 08/07/2024 8:15 AM EDT 08/07/2024 Barry Reyes MD LAB BLOOD ORDERABLES Final Re sult Performing Organization Address [facility] de Phone Number [facility] [address] [place] [address] * (ABNORMAL) Iron Panel (Fe, TIBC, TSAT) (08/07/2024 8:15 AM EDT) Pathologist [facility] TIBC 290 250 - 450 ug/dL [facility] UIBC 251 118 - 369 ug/dL [facility] Iron 39 27 - 139 ug/dL [facility] Iron Saturation (TSat) 13(L) 15 - 55 % [facility] Blood specimen (specimen) Venous blood / Unknown 08/07/2024 8:15 AM EDT 08/07/2024 Barry Reyes MD LAB BLOOD ORDERABLES Final Re sult Performing Organization Address City/[facility]/ZIP Co de Phone Number [facility] [address] [place] [address] * (ABNORMAL) CBC and Differential (08/07/2024 8:15 AM EDT) [facility] WBC 5.6 3.4 - 10.8 x10E3/uL [facility] RBC 5.41(H) 3.77 - 5.28 x10E6/uL [facility] Hemoglobin 10.7(L) 11.1 - 15.9 g/dL [facility] Hematocrit 36.1 34.0 - 46.6 % [facility] MCV 67(L) 79 - 97 fL [facility] MCH 19.8(L) 26.6 - 33.0 pg [facility] MCHC 29.6(L) 31.5 - 35.7 g/dL [facility] RDW 18.9(H) 11.7 - 15.4 % [facility] Platelets 171 150 - 450 x10E3/uL [facility] Neutrophils Relative 65 Not Estab. % [facility] Lymphocytes Relative 25 Not Estab. % [facility] Monocytes 6 Not Estab. % [facility] Eosinophils Relative 3 Not Estab. % [facility] Basophils Relative 1 Not Estab. % [facility] Neutrophils Absolute 3.6 1.4 - 7.0 x10E3/uL [facility] Lymphocytes Absolute 1.4 0.7 - 3.1 x10E3/uL [facility] Monocytes Absolute 0.4 0.1 - 0.9 x10E3/uL [facility] Eosinophils Absolute 0.2 0.0 - 0.4 x10E3/uL [facility] Basophils Absolute 0.0 0.0 - 0.2 x10E3/uL [facility] Immature Granulocytes 0 Not Estab. % [facility] Immature Grans (Absolute) 0.0 0.0 - 0.1 x10E3/uL [facility] Blood specimen (specimen) Venous blood / Unknown 08/07/2024 8:15 AM EDT 08/07/2024 us Barry Reyes MD LAB BLOOD ORDERABLES Final Re sult [facility] [address] [place] [address] documented in this encounter Visit Diagnoses Diagnosis Anemia in chronic kidney disease Other iron deficiency anemia Chronic kidney disease, stage 2 (mild) documented in this encounter Care Teams Director Motion Picture Relationship Specialty [place] [address] [place] [id number] PCP - General Internal Medicine 10/28/22 documented as of this encounter
--- OUTSIDE RECORDS SUMMARY | 2025-03-29 10:05 | XMS_ITS | Encounter Summary ---
Author Organization [facility] Address [address] [place] [address] Phone Care Team Providers Care Senior Electrical Designer Name Role Phone Sahra Son MD Primary Care Provider + Encounter Details Date Type Department Care Team (Late Contact Info) Description 05/26/2024 Orders Only [facility] [address] [place] [address] India Davalos [address] [place] [address] Chronic kidney disease, stage 2 [...] Visit [facility] [address] [address] [place] [address] Barry Reyes MD [address] [place] [address] [place] [address] documented as of this encounter [...] Glucose 168(H) 70 - 99 mg/dL [facility] BUN 17 8 - 27 mg/dL [facility] Creatinine 1.09(H) 0.57 - 1.00 mg/dL [facility] eGFR CKD-EPI CR 2020 57(L) >59 mL/min/1.7 3 [facility] BUN/Creatinine Ratio 16 12 - 28 [facility] Sodium 137 134 - 144 mmol/L [facility] Potassium 4.8 3.5 - 5.2 mmol/L [facility] Chloride 99 96 - 106 mmol/L [facility] Bicarbonate (CO2) 23 20 - 29 mmol/L [facility] Calcium 9.0 8.7 - 10.3 mg/dL [facility] Albumin 4.2 3.9 - 4.9 g/dL [facility] Phosphorus 4.4(H) 3.0 - 4.3 mg/dL [facility] Blood specimen (specimen) Venous blood / Unknown 06/07/2024 11:53 AM EST 06/07/2024 Barry Reyes MD LAB BLOOD ORDERABLES Final Re sult Performing Organization Address City/[facility]/ZIP Co de Phone Number [facility] [address] [place] [address] * Ferritin (06/07/2024 11:53 AM EST) Ferritin 102 15 - 150 ng/mL [facility] Blood specimen (specimen) Venous blood / Unknown 06/07/2024 11:53 AM EST 06/07/2024 Barry Reyes MD LAB BLOOD ORDERABLES Final Re sult Performing Organization Address [facility] de Phone Number [facility] [address] [place] [address] * Iron Panel (Fe, TIBC, TSAT) (06/07/2024 11:53 AM EST) TIBC 262 250 - 450 ug/dL [facility] UIBC 205 118 - 369 ug/dL [facility] Iron 57 27 - 139 ug/dL [facility] Iron Saturation (TSat) 22 15 - 55 % [facility] Blood specimen (specimen) Venous blood / Unknown 06/07/2024 11:53 AM EST 06/07/2024 Barry Reyes MD LAB BLOOD ORDERABLES Final Re sult Performing Organization Address City/[facility]/ZIP Co de Phone Number [facility] [address] [place] [address] * (ABNORMAL) CBC and Differential (06/07/2024 11:53 AM EST) [facility] WBC 5.5 3.4 - 10.8 x10E3/uL [facility] RBC 5.76(H) 3.77 - 5.28 x10E6/uL [facility] Hemoglobin 11.1 11.1 - 15.9 g/dL [facility] Hematocrit 38.4 34.0 - 46.6 % [facility] MCV 67(L) 79 - 97 fL [facility] MCH 19.3(L) 26.6 - 33.0 pg [facility] MCHC 28.9(L) 31.5 - 35.7 g/dL [facility] RDW 18.8(H) 11.7 - 15.4 % [facility] Platelets 162 150 - 450 x10E3/uL [facility] Neutrophils Relative 59 Not Estab. % [facility] Lymphocytes Relative 31 Not Estab. % [facility] Monocytes 6 Not Estab. % [facility] Eosinophils Relative 2 Not Estab. % [facility] Basophils Relative 1 Not Estab. % [facility] Neutrophils Absolute 3.3 1.4 - 7.0 x10E3/uL [facility] Lymphocytes Absolute 1.7 0.7 - 3.1 x10E3/uL [facility] Monocytes Absolute 0.3 0.1 - 0.9 x10E3/uL [facility] Eosinophils Absolute 0.1 0.0 - 0.4 x10E3/uL [facility] Basophils Absolute 0.0 0.0 - 0.2 x10E3/uL [facility] Immature Granulocytes 1 Not Estab. % [facility] Immature Grans (Absolute) 0.0 0.0 - 0.1 x10E3/uL [facility] Blood specimen (specimen) Venous blood / Unknown 06/07/2024 11:53 AM EST 06/07/2024 us Barry Reyes MD LAB BLOOD ORDERABLES Final Re sult [facility] [address] [place] [address] documented in this encounter Visit Diagnoses Diagnosis Chronic kidney disease, stage 2 (mild) Anemia in chronic kidney disease Iron deficiency anemia, not otherwise specified documented in this encounter Care Teams Senior Electrical Designer Relationship Specialty Start Date End Date Sahra Son MD [address] [place] [address] PCP - General Internal Medicine 10/28/22 documented as of this encounter
--- OUTSIDE RECORDS SUMMARY | 2025-03-29 10:05 | XMS_ITS | Encounter Summary ---
Author Organization [facility] Address [address] [place] [address] Phone Care Team Providers Care Product Lister Name Role Phone Sahra Son MD Primary Care Provider + Encounter Details Date Type Department Care Team (Late Contact Info) Description 03/31/2024 Orders Only [facility] [address] [place] [address] India Davalos [address] [place] [address] Chronic kidney disease, stage 2 [...] [facility] [address] [place] [address] Barry Reyes MD [address] [place] [address] [place] [address] documented as of this encounter Visit Diagnoses Diagnosis Chronic kidney disease, stage 2 (mild) Anemia in chronic kidney disease Iron deficiency anemia, not otherwise specified documented in this encounter Care Teams Product Lister Relationship Specialty Start Date End Date Sahra Son MD [address] [place] [address] PCP - General Internal Medicine 10/28/22 documented as of this encounter
--- OUTSIDE RECORDS SUMMARY | 2025-03-29 10:05 | XMS_ITS | Encounter Summary ---
Author Organization [facility] Address [address] [place] [address] Phone Care Team Providers Care Online Education Manager Name Role Phone Sahra Son MD Primary Care Provider + Encounter Details Date Type Department Care Team (Late Contact Info) Description 09/15/2024 Orders Only [facility] [address] [place] [address] India Davalos [address] [place] [address] Chronic kidney disease, stage 2 [...] Visit [facility] [address] [place] [address] Barry Reyes MD [address] [place] [address] [place] [address] documented as of this encounter Visit Diagnoses Diagnosis Chronic kidney disease, stage 2 (mild) Anemia in chronic kidney disease Iron deficiency anemia, not otherwise specified documented in this encounter Care Teams Online Education Manager Relationship Specialty Start Date End Date Sahra Son MD [address] [place] [address] PCP - General Internal Medicine 10/28/22 documented as of this encounter
--- OUTSIDE RECORDS SUMMARY | 2025-03-29 10:05 | XMS_ITS | Encounter Summary ---
Author Organization [facility] Address [address] [place] [address] Phone Care Team Providers Care Oracle Manufacturing Consultant Name Role Phone Sahra Son MD Primary Care Provider + Encounter Details Date Type Department Care Team ([facility] Contact Info) Description 04/05/2024 Documentation Only [facility] [address] [place] [address] India Davalos [address] [place] [address] Social History Tobacco Use Types [...] [facility] [address] [place] [address] Barry Reyes MD [address] [place] [address] [place] [address] documented as of this encounter Visit Diagnoses Not on filedocumented in this encounter Care Teams Oracle Manufacturing Consultant Relationship Specialty Start Date End Date Sahra Son MD [address] [address] PCP - General Internal Medicine 10/28/22 documented as of this encounter
--- OUTSIDE RECORDS SUMMARY | 2025-03-29 10:05 | XMS_ITS | Encounter Summary ---
Author Organization [facility] Address [address] [place] [address] Phone Care Team Providers Care Customer Service Dispatcher Name Role Phone Sahra Son MD Primary Care Provider + Encounter Details Date Type Department Care Team ([facility] Contact Info) Description 07/03/2021 Documentation Only [facility] [address] [place] [address] Juan Jose Li MD [address] [place] [address] [place] [address] Social History Tobacco Use Types [...] [facility] [address] [place] [address] Barry Reyes MD [address] [facility] [place] [address] documented as of this encounter Visit Diagnoses Not on filedocumented in this encounter Care Teams Customer Service Dispatcher Relationship Specialty Start Date End Date Sahra Son MD [address] [address] PCP - General Internal Medicine 10/28/22 documented as of this encounter
--- OUTSIDE RECORDS SUMMARY | 2025-03-29 10:05 | XMS_ITS | Encounter Summary ---
Author Organization [facility] Address [address] [place] [address] Phone Care Team Providers Care Assistant Infant Teacher Name Role Phone Sahra Son MD Primary Care Provider + Encounter Details Date Type Department Care Team ([facility] Contact Info) Description 01/29/2023 Documentation Only [facility] [address] [place] [address] India Davalos [address] [place] [address] Social History Tobacco Use Types [...] [facility] [address] [place] [address] Barry Reyes MD [address] [place] [address] [place] [address] documented as of this encounter Visit Diagnoses Not on filedocumented in this encounter Care Teams Assistant Infant Teacher Relationship Specialty Start Date End Date Sahra Son MD [address] [address] PCP - General Internal Medicine 10/28/22 documented as of this encounter
--- OUTSIDE RECORDS SUMMARY | 2025-03-29 10:05 | XMS_ITS | Encounter Summary ---
Author Organization [facility] Address [address] [place] [address] Phone Care Team Providers Care Driver Supervisor Name Role Phone Sahra Son MD Primary Care Provider + Encounter Details Date Type Department Care Team ([facility] Contact Info) Description 08/05/2023 Documentation Only [facility] [address] [place] [address] India Davalos [address] [place] [address] Social History Tobacco Use Types [...] [facility] [address] [place] [address] Barry Reyes MD [address] [place] [address] [place] [address] documented as of this encounter Visit Diagnoses Not on filedocumented in this encounter Care Teams Driver Supervisor Relationship Specialty Start Date End Date Sahra Son MD [address] [address] PCP - General Internal Medicine 10/28/22 documented as of this encounter
--- OUTSIDE RECORDS SUMMARY | 2025-03-29 10:05 | XMS_ITS | Encounter Summary ---
Author Organization [facility] Address [address] [place] [address] Phone Care Team Providers Care Campus Executive Director Name Role Phone Sahra Son MD Primary Care Provider + Encounter Details Date Type Department Care Team ([facility] Contact Info) Description 10/07/2021 Documentation Only [facility] [address] [place] [address] India Davalos [address] [place] [address] Social History Tobacco Use Types [...] Encounters Date Type Department Care Team ([facility] Contact Info) Description 06/05/2025 2:50 PM EST Office Visit [facility] [address] [place] [address] Barry Reyes MD [address] [place] [address] [place] [address] documented as of this encounter Visit Diagnoses Not on filedocumented in this encounter Care Teams Campus Executive Director Relationship Specialty Start Date End Date Sahra Son MD NPI: [id number] [place] [address] PCP - General Internal Medicine 10/28/22 documented as of this encounter
--- OUTSIDE RECORDS SUMMARY | 2025-03-29 10:06 | XMS_ITS | Encounter Summary ---
Author Organization [facility] Address [address] [place] [address] Phone Care Team Providers Care Sap Developer Name Role Phone Sahra Son MD Primary Care Provider + Encounter Details Date Type Department Care Team (Late Contact Info) Description 10/13/2024 Orders Only [facility] [address] [place] [address] India Davalos [address] [place] [address] Chronic kidney disease, stage 2 [...] [facility] [address] [place] [address] Barry Reyes MD [address] [place] [address] [place] [address] documented as of this encounter Visit Diagnoses Diagnosis Chronic kidney disease, stage 2 (mild) Anemia in chronic kidney disease Iron deficiency anemia, not otherwise specified documented in this encounter Care Teams Sap Developer Relationship Specialty Start Date End Date Sahra Son MD [address] [place] [address] PCP - General Internal Medicine 10/28/22 documented as of this encounter
--- OUTSIDE RECORDS SUMMARY | 2025-03-29 10:06 | XMS_ITS | Encounter Summary ---
Author Organization [facility] Address [address] [place] [address] Phone Care Team Providers Care Ladle Handler Name Role Phone Sahra Son MD Primary Care Provider + Encounter Details Date Type Department Care Team (Late st Contact Info) Description 01/19/2025 Orders Only [facility] [address] [place] [address] India Davalos [address] [place] [address] Anemia in chronic kidney disease; [...] Visit [facility] [address] [place] [address] Barry Reyes MD [address] [place] [address] documented as of this encounter Visit Diagnoses Diagnosis Anemia in chronic kidney disease Other iron deficiency anemia Chronic kidney disease, stage 2 (mild) documented in this encounter Care Teams Ladle Handler Relationship Specialty Start Date End Date Sahra Son MD [facility] [place] [address] PCP - General Internal Medicine 10/28/22 documented as of this encounter
--- OUTSIDE RECORDS SUMMARY | 2025-03-29 10:06 | XMS_ITS | Encounter Summary ---
Author Organization [facility] Address [address] [place] [address] Phone Care Team Providers Care Senior Php Developer Name Role Phone Sahra Son MD Primary Care Provider + Encounter Details Date Type Department Care Team (Late Contact Info) Description 03/16/2025 Orders Only [facility] [address] [place] [address] India Davalos [address] [place] [address] Anemia in chronic kidney disease; [...] Visit [facility] [address] [place] [address] Barry Reyes MD [address] [place] [address] documented as of this encounter Visit Diagnoses Diagnosis Anemia in chronic kidney disease Other iron deficiency anemia Chronic kidney disease, stage 2 (mild) documented in this encounter Care Teams Senior Php Developer Relationship Specialty Start Date End Date Sahra Son MD [facility] [place] [address] PCP - General Internal Medicine 10/28/22 documented as of this encounter
--- OUTSIDE RECORDS SUMMARY | 2025-03-29 10:06 | XMS_ITS | Clinical Summary ---
Author Organization [facility] Address [address] [place] [address] Phone Care Team Providers Care Supervisor Engraving Name Role Phone Vinnie Santizo Primary Care Provider [phone]- [phone] Allergies Active Allergy Reactions Criticality Noted Date Comments Codeine Bronchospasm 07/11/2013 Penicillins Hives 07/11/2013 Shellfish Containing Products Unknown 2013 Active Problems Problem Noted Date Diagnosed Date Abdominal pain 07/11/2013 Overview (07/07/2014): Abdominal pain Large liver 07/11/2013 Overview (07/07/2014): Large liver Fibromyalgia 07/11/2013 Overview (07/07/2014): Fibromyositis Systemic lupus erythematosus 07/11/2013 Overview (07/07/2014): Systemic lupus erythematosus Asthma 07/11/2013 Overview (07/07/2014): Asthma Diabetes mellitus 07/11/2013 Overview (07/07/2014): Diabetes mellitus History of myocardial infarction 07/11/2013 Overview (07/07/2014): H/O Myocardial infarction History of cerebrovascular accident 07/11/2013 Overview (07/07/2014): H/O Cerebrovascular accident Uncoded H/O Deep venous thrombosis of lower extr emity 07/11/2013 Overview (07/07/2014): H/O Deep venous thrombosis of lower extremity Social History Tobacco Use Types Packs/Day Years Used Date Smoking Tobacco: Never Assessed Education Answer Date Recorded Are you interested in more education? Not on aury e 02/09/2023 Are you concerned about learning? Not on file 02/09/2023 No 02/09/2023 No 02/09/2023 Digital Access Answer Date Recorded No 02/09/2023 No 02/09/2023 Reliable internet access at home? Not on file 02/09/2023 Device with a working camera? Not on file Comments Unknown Sex and Gender Information Value Date Recorded Sex Assigned at Not on file Legal Sex Female 5:56 PM EST Gender Identity Not on file Sexual Orientation Not on file Last Filed Vital Signs Vital Sign Reading Time Taken Comments Blood Pressure 95/57 10/24/2013 4:07 PM EDT Pulse 56 10/24/2013 4:07 PM EDT Temperature - - Respiratory Rate - - Oxygen Saturation - - Inhaled Oxygen Concentration - - Weight 67.1 kg (148 lb) 10/24/2013 4:07 PM EDT Height - - Body Mass Index - - Plan of Treatment Upcoming Encounters Date Type Department Care Team (Late st Contact Info) Description 2025 12:30 PM EDT Office Visit [facility] [address] [facility] 9th [place] [address] Cas Faye MD [address] [place] [email or web address] Health Maintenance Due Date Last Done Comments Adult Td,Tdap Booster 1959 BLOOD PRESSURE 1959 HEMOGLOBIN A1C 1959 DEPRESSION SCREENING 1971 SMOKING Hx and SMOKELESS TOB ACCO SCREENING 11/07/1972 HEPATITIS C SCREENING 11/07/1977 HIV ONE-TIME SCREENING (18-6 5 YEARS) 11/07/1977 LIPID PANEL 11/07/1977 PNEUMOCOCCAL VACCINES (50+ y ears) (1 of 2 - PCV) 11/07/1978 MAMMOGRAM 1999 COLOGUARD 11/07/2004 COLONOSCOPY 11/07/2004 COLORECTAL CANCER SCREENING 11/07/2004 FIT TEST 11/07/2004 FOBT 11/07/2004 SIGMOIDOSCOPY 11/07/2004 VIRTUAL COLONOSCOPY 11/07/2004 RSV VACCINE (1 - Risk 50-74 years 1-dose series) 11/07/2009 ZOSTER VACCINES (1 of 2) 11/07/2009 DIABETIC EYE EXAM 07/12/2014 URINE MICROALBUMIN/CREATININE RATIO 07/12/2014 OSTEOPOROSIS SCREENING INITI AL (ONE-TIME) 11/07/2024 INFLUENZA VACCINE (#1) 2024 COVID-19 VACCINE (2024-2 6 season) 2025 HEPATITIS A VACCINES Aged Out No long er eligible based on patient's age to complete this topic HIB VACCINES Aged Out No longer eligi ble based on patient's age to complete this topic IPV VACCINES Aged Out No longer eligi ble based on patient's age to complete this topic MENINGOCOCCAL VACCINES (ACWY) Aged Out No longer eligible based on patient's age to complete this topic MENINGOCOCCAL VACCINES (B) Aged Out N o longer eligible based on patient's age to complete this topic Medical Devices Not on file Insurance [facility] MEDIC[facility] REPLACEMENT [facility] MEDICARE REPLACEMENT MEDICARE REPLACEMENT MEDICARE REPLACEMENT MEDICARE REPLACEMENT [facility] Care Teams Supervisor Engraving Relationship Specialty Start Date End Date Vinnie Santizo DO [address] [place] [address] PCP - General 11/14/13 Additional Source Comments The information contained in this document represents components of the legal health record. It is not the complete legal health record.[facility]
--- OUTSIDE RECORDS SUMMARY | 2025-03-29 10:06 | XMS_ITS | Encounter Summary ---
Author Organization [facility] Address [address] [place] [address] Phone Care Team Providers Care Javascript Engineer Name Role Phone Sahra Son MD Primary Care Provider + Encounter Details Date Type Department Care Team (Late st Contact Info) Description 11/24/2024 Orders Only [facility] [address] [place] [address] India Davalos [address] [place] [address] Anemia in chronic kidney disease; [...] [facility] [address] [place] [address] Barry Reyes MD [address] [place] [address] documented as of this encounter Visit Diagnoses Diagnosis Anemia in chronic kidney disease Other iron deficiency anemia Chronic kidney disease, stage 2 (mild) documented in this encounter Care Teams Javascript Engineer Relationship Specialty Start Date End Date Sahra Son MD [facility] [place] [address] PCP - General Internal Medicine 10/28/22 documented as of this encounter
--- OUTSIDE RECORDS SUMMARY | 2025-03-29 10:06 | XMS_ITS | Encounter Summary ---
Author Organization [facility] Address [address] [place] [address] Phone Care Team Providers Care Interactive Account Manager Name Role Phone Sahra Son MD Primary Care Provider + Encounter Details Date Type Department Care Team (Late Contact Info) Description 06/23/2024 Orders Only [facility] [address] [place] [address] India Davalos [address] [place] [address] Chronic kidney disease, stage 2 [...] Visit [facility] [address] [place] [address] Barry Reyes MD [address] [place] [address] [place] [address] documented as of this encounter Visit Diagnoses Diagnosis Chronic kidney disease, stage 2 (mild) Anemia in chronic kidney disease Iron deficiency anemia, not otherwise specified documented in this encounter Care Teams Interactive Account Manager Relationship Specialty Start Date End Date Sahra Son MD [address] [place] [address] PCP - General Internal Medicine 10/28/22 documented as of this encounter
--- OUTSIDE RECORDS SUMMARY | 2025-03-29 10:06 | XMS_ITS | Encounter Summary ---
Author Organization [facility] Address [address] [place] [address] Phone Care Team Providers Care Heading And Priming Operator Name Role Phone Sahra Son MD Primary Care Provider + Encounter Details Date Type Department Care Team (Late Contact Info) Description 09/29/2024 Orders Only [facility] [address] [place] [address] India Davalos [address] [place] [address] Anemia in chronic kidney disease; [...] [facility] [address] [place] [address] Barry Reyes MD [address] [place] [address] [place] [address] documented as of this [...] Glucose 219(H) 70 - 99 mg/dL [facility] BUN 14 8 - 27 mg/dL [facility] Creatinine 1.09(H) 0.57 - 1.00 mg/dL [facility] eGFR CKD-EPI CR 2020 57(L) >59 mL/min/1.7 3 [facility] BUN/Creatinine Ratio 13 12 - 28 [facility] Sodium 139 134 - 144 mmol/L [facility] Potassium 5.0 3.5 - 5.2 mmol/L [facility] Chloride 101 96 - 106 mmol/L [facility] Bicarbonate (CO2) 20 20 - 29 mmol/L [facility] Calcium 9.2 8.7 - 10.3 mg/dL [facility] Albumin 4.1 3.9 - 4.9 g/dL [facility] Phosphorus 3.7 3.0 - 4.3 mg/dL [facility] Blood specimen (specimen) Venous blood / Unknown 10/04/2024 9:48 AM EDT 10/04/2024 Barry Reyes MD LAB BLOOD ORDERABLES Final Re sult [facility] [address] [place] [address] * (ABNORMAL) Ferritin (10/04/2024 9:48 AM EDT) Ferritin 167(H) 15 - 150 ng/mL [facility] Blood specimen (specimen) Venous blood / Unknown 10/04/2024 9:48 AM EDT 10/04/2024 Barry Reyes MD LAB BLOOD ORDERABLES Final Re sult Performing Organization Address [facility] de Phone Number [facility] [address] [place] [address] * (ABNORMAL) Iron Panel (Fe, TIBC, TSAT) (10/04/2024 9:48 AM EDT) TIBC 247(L) 250 - 450 ug/dL [facility] UIBC 205 118 - 369 ug/dL [facility] Iron 42 27 - 139 ug/dL [facility] Iron Saturation (TSat) 17 15 - 55 % [facility] Blood specimen (specimen) Venous blood / Unknown 10/04/2024 9:48 AM EDT 10/04/2024 Barry Reyes MD LAB BLOOD ORDERABLES Final Re sult Performing Organization Address City[facility]/ZIP Co de Phone Number [facility] [address] [place] [address] * (ABNORMAL) CBC and Differential (10/04/2024 9:48 AM EDT) [facility] WBC 6.0 3.4 - 10.8 x10E3/uL [facility] RBC 5.10 3.77 - 5.28 x10E6/uL [facility] Hemoglobin 10.2(L) 11.1 - 15.9 g/dL [facility] Hematocrit 35.1 34.0 - 46.6 % [facility] MCV 69(L) 79 - 97 fL [facility] MCH 20.0(L) 26.6 - 33.0 pg [facility] MCHC 29.1(L) 31.5 - 35.7 g/dL [facility] RDW 18.5(H) 11.7 - 15.4 % [facility] Platelets 170 150 - 450 x10E3/uL [facility] Neutrophils Relative 69 Not Estab. % [facility] Lymphocytes Relative 22 Not Estab. % [facility] Monocytes 6 Not Estab. % [facility] Eosinophils Relative 2 Not Estab. % [facility] Basophils Relative 1 Not Estab. % [facility] Neutrophils Absolute 4.2 1.4 - 7.0 x10E3/uL [facility] Lymphocytes Absolute 1.3 0.7 - 3.1 x10E3/uL [facility] Monocytes Absolute 0.3 0.1 - 0.9 x10E3/uL [facility] Eosinophils Absolute 0.1 0.0 - 0.4 x10E3/uL [facility] Basophils Absolute 0.1 0.0 - 0.2 x10E3/uL [facility] Immature Granulocytes 0 Not Estab. % [facility] Immature Grans (Absolute) 0.0 0.0 - 0.1 x10E3/uL [facility] Blood specimen (specimen) Venous blood / Unknown 10/04/2024 9:48 AM EDT 10/04/2024 us Barry Reyes MD LAB BLOOD ORDERABLES Final Re sult [facility] [address] [place] [address] documented in this encounter Visit Diagnoses Diagnosis Anemia in chronic kidney disease Other iron deficiency anemia Chronic kidney disease, stage 2 (mild) documented in this encounter Care Teams Heading And Priming Operator Relationship Specialty Start Date End Date Sahra Son MD [address] [place] [address] PCP - General Internal Medicine 10/28/22 documented as of this encounter
--- OUTSIDE RECORDS SUMMARY | 2025-03-29 10:06 | XMS_ITS | Encounter Summary ---
Author Organization [facility] Address [address] [place] [address] Phone Care Team Providers Care Manager Fire Name Role Phone Sahra Son MD Primary Care Provider + Encounter Details Date Type Department Care Team (Late Contact Info) Description 07/21/2024 Orders Only [facility] [address] [place] [address] India Davalos [address] [place] [address] Chronic kidney disease, stage 2 [...] [facility] [address] [place] [address] Barry Reyes MD [address] [place] [address] [place] [address] documented as of this encounter Visit Diagnoses Diagnosis Chronic kidney disease, stage 2 (mild) Anemia in chronic kidney disease Iron deficiency anemia, not otherwise specified documented in this encounter Care Teams Manager Fire Relationship Specialty Start Date End Date Sahra Son MD [address] [place] [address] PCP - General Internal Medicine 10/28/22 documented as of this encounter
--- OUTSIDE RECORDS SUMMARY | 2025-03-29 10:06 | XMS_ITS | Encounter Summary ---
Author Organization [facility] Address [address] [place] [address] Phone Care Team Providers Care Safety Sitter Name Role Phone Sahra Son MD Primary Care Provider + Encounter Details Date Type Department Care Team (Late Contact Info) Description 11/10/2024 Orders Only [facility] [address] [place] [address] India Davalos [address] [place] [address] Chronic kidney disease, stage [...] [facility] [address] [place] [address] Barry Reyes MD [address] [place] [address] [place] [address] documented as of this encounter Visit Diagnoses Diagnosis Chronic kidney disease, stage 2 (mild) Anemia in chronic kidney disease Iron deficiency anemia, not otherwise specified documented in this encounter Care Teams Safety Sitter Relationship Specialty Start Date End Date Sahra Son MD [address] [place] [address] PCP - General Internal Medicine 10/28/22 documented as of this encounter
--- OUTSIDE RECORDS SUMMARY | 2025-03-29 10:06 | XMS_ITS | Encounter Summary ---
Author Organization [facility] Address [address] [place] [address] Phone Care Team Providers Care Director Multimedia Name Role Phone Sahra Son MD Primary Care Provider + Encounter Details Date Type Department Care Team ([facility] Contact Info) Description 11/13/2024 Documentation Only [facility] [address] [place] [address] India Davalos [address] [place] [address] Social History Tobacco Use Types [...] [facility] [address] [place] [address] Barry Reyes MD [address] [place] [address] [place] [address] documented as of this encounter Visit Diagnoses Not on filedocumented in this encounter Care Teams Director Multimedia Relationship Specialty Start Date End Date Sahra Son MD [address] [address] PCP - General Internal Medicine 10/28/22 documented as of this encounter
--- OUTSIDE RECORDS SUMMARY | 2025-03-29 10:06 | XMS_ITS | Clinical Summary ---
Author Organization [facility] Address [address] [place] [address] Care Team Providers Care Director Of Undergraduate Admissions Name Role Phone Geovani Natalie Carmelo ESPARZA Primary Care Provider Allergies Active Allergy Reactions Criticality Noted Date [...] 1 10/04/2016 Active ergocalciferol (VITAMIN D2) capsule 74111 units TK ONE C PO TWICE A [...] times a day. 0 04/27/2022 Active pancrelipase, Cbh-Rjgm-Gtju, (Creon) [address] units CPEP TK ONE C PO TID [...] complete this topic Care Teams Director Of Undergraduate Admissions Relationship Specialty Start Date End Date Natalie Olivo APRN [address] [place] [address] PCP - General Refrigeration Plant Operator 04/30/22
== END 2025-03-29 09:34 | disposition home or self-care (01) ==
LOC: HO.ACS 09:09
PROVIDERS: PCP Internal Medicine; Visit Provider Internal Medicine Medical Oncology
DX: Z79.01 Long term (current) use of anticoagulants (principal)

== ENCOUNTER → 2025-03-29 09:09 | Outpatient (BNVA) | payer OTHER, SELFPAY | PROVIDERS: PCP Internal Medicine; Visit Provider Internal Medicine Medical Oncology | DX: I82.621 Acute embolism and thrombosis of deep veins of right upper extremity (principal); Z51.81 Encounter for therapeutic drug level monitoring; Z79.01 Long term (current) use of anticoagulants | CPT/HCPCS: 85610; 99211 ==

== ENCOUNTER 2025-04-05 09:09 | Outpatient (AMB) | payer OTHER, SELFPAY ==
[2025-04-05 09:26] LABS: Prothrombin Time Whole Bld POC 24.2 sec (11.1-13.5); ~PT, ~INR - Anti Coag Clinic 2.0 (0.9-1.1)
--- NOTE | 2025-04-05 09:27 | MHC.OFFVISCO ---
Intake Intake Visit Reasons: Anticoagulation Allergies codeine (Codeine) Allergy (Severe, Verified 04/05/25 09:21) DIFFICULTY BREATHING Penicillins Allergy (Severe, Verified 04/05/25 09:21) RASH penicillin V Allergy (Intermediate, Verified 04/05/25 09:21) RASH tramadol (Ultram) Allergy (Unknown, Verified 04/05/25 09:21) hallucinations Shellfish Allergy (Severe, Uncoded 04/05/25 09:21) THROAT SWELLING Contrast Allergy PreMed Pack Allergy (Unknown, Uncoded 04/05/25 09:21) TREAT WITH BENADRYL ferrlecit Adverse Reaction (Intermediate, Uncoded 04/05/25 09:21) Rash Medication List - Last Reconciled 04/05/25 by Tonia Angeles, RN alcohol swabs 2 pad topical DAILY blood sugar diagnostic As directed budesonide (Pulmicort) 0.25 mg inhalation BID clonidine HCl 0.1 mg PO BID dapagliflozin propanediol (Farxiga) 5 mg PO DAILY divalproex ER 250 mg PO TID 3 months MDD 750 docusate sodium (Colace) 100 mg PO DAILY duloxetine (Cymbalta) 30 mg PO DAILY duloxetine 60 mg PO QAM epoetin marj (Procrit) 2,000 units subcut 3XW hydrocortisone 2.5% appl topical insulin glargine (Lantus Solostar U-100 Insulin) 5 units subcut DAILY ipratropium-albuterol 0.5 mg-3 mg(2.5 mg base)/3 mL mL inhalation ipratropium-albuterol 20-100 mcg/actuation 1 puff PO QID ipratropium-albuterol 20-100 mcg/actuation (Combivent Respimat) 1 puff inhalation Q4H lancets As directed lancets As directed latanoprost 0.005% drps ophthalmic (eye) linaclotide (Linzess) 145 mcg PO DAILY linagliptin (Tradjenta) 5 mg PO DAILY uqpfmv-sulaiwxs-dadaeah (pork) 24,000-76,000 -120,000 unit (Creon) 1 cap PO TID loratadine 10 mg PO DAILY PRN lorazepam 1 mg PO BID meclizine mg PO montelukast 10 mg PO BEDTIME nifedipine ER 30 mg PO DAILY nitroglycerin 0.4 mg sublingual Q5M PRN nystatin 1 appl topical DAILY PRN ondansetron 4 mg PO Q8H PRN oxcarbazepine (Trileptal) 150 mg PO Q12H 30 days pen needle, diabetic (Ultra-Fine Pen Needle) As directed quetiapine 200 mg PO BEDTIME rabeprazole 20 mg PO DAILY ropinirole 0.25 mg PO BEDTIME rosuvastatin 40 mg PO DAILY sodium chloride 0.65% (Deep Sea Nasal) sprays intranasal Q2H PRN triamcinolone acetonide 0.1% appl topical warfarin 2.5 mg See Protocol PO DAILY Nursing Note INR: 2.0 in therapeutic range of 2-3 Medications and supplements reviewed No changes in health, diet, medications, or supplements, Denies any signs and symptoms of bleeding or bruising or clotting. Bleeding, bruising, clotting discussed Nutritional guidance given to avoid greens today and to have a serving of food that raises the INR Dose: 5mg X 5 days and 3.75mg X 2 days (Wed & Sat) F/U INR: 04/16/25 Patient verbalizes understanding of instructions with read back given Anti-Coag Initial Assessment Social Hx Patient Tobacco Use Status: Current everyday Tobacco user alcohol intake: never Coding Level of Care Code Est Patient Level 1 Diagnoses Current use of anticoagulant therapy Z79.01 Results AMB INR Fingerstick AMB INR Fingerstick 2.0 Last Edit by Tonia Angeles RN on 04/05/25 09:26 interface delay Assessment & Plan Assessment & Plan (1) Current use of anticoagulant therapy: Code(s): Z79.01 - moth exterminator (current) use of anticoagulants Category: Medical
--- OUTSIDE RECORDS SUMMARY | 2025-04-05 11:26 | XMS_ITS | Encounter Summary ---
Author Organization [facility] Address [address] [place] [address] Phone Care Team Providers Care Customer Agent Name Role Phone Sahra Son MD Primary Care Provider + Encounter Details Date Type Department Care Team (Late st Contact Info) Description 12/22/2024 Orders Only [facility] [address] [place] [address] India Davalos [address] [place] [address] Anemia in chronic kidney disease; [...] Visit [facility] [address] [place] [address] Barry Reyes MD [address] [place] [address] documented as of this encounter Visit Diagnoses Diagnosis Anemia in chronic kidney disease Other iron deficiency anemia Chronic kidney disease, stage 2 (mild) documented in this encounter Care Teams Customer Agent Relationship Specialty Start Date End Date Sahra Son MD [facility] [place] [address] PCP - General Internal Medicine 10/28/22 documented as of this encounter
--- OUTSIDE RECORDS SUMMARY | 2025-04-05 11:26 | XMS_ITS | Encounter Summary ---
Author Organization [facility] Address [address] [place] [address] Care Team Providers Care Milk Sampler Name Role Phone Vinnie Santizo Primary Care Provider Sahra Keith MD Primary Care Provider Marko Fernandez MD Unavailable [phone] Encounter Details Date Type Department Care Team Description 08/24/2022 Hospital Medical Records [address] [place] [address] Social History Tobacco Use Types Packs/Day Years [...] on filedocumented in this encounter Care Teams Milk Sampler Relationship Specialty Start Date End Date Vinnie Santizo PCP - General Internal Medicine 03/30/17 08/30/22 Sahra Son MD PCP - General Internal Medicine 08/31/22 Marko Spaulding MD Specialist Cardiology 09/23/22 documented as of this encounter
--- OUTSIDE RECORDS SUMMARY | 2025-04-05 11:26 | XMS_ITS | Encounter Summary ---
Author Organization [facility] Address [address] [place] [address] Care Team Providers Care Diet Tech Name Role Phone Sahra Son MD Primary Care Provider Paula daryilaMarko Perales MD Unavailable [phone] Reason for Visit * Reason Onset Date Comments Prior Authorization 09/01/2022 CT CHEST Encounter Details Date Type Department Care Team Description 09/01/2022 Telephone Pulmonology - [place] [address] [facility] [address] [place] [phone] Betty Morillo MD [address] [facility] [address] [place] [phone] Prior Authorization (CT CHEST) Social History Tobacco [...] Ref#: Barbara Gann on 09/09 @ 11:31 [id number] * Telephone Encounter - Dilcia Hannon - 09/01/2022 1:20 PM EDT [facility] - Auth Pending (7-14 days to process) Auth request, clinicals and Rad report faxed to [facility]. [id number] documented in this encounter Plan of Treatment Not on file documented as of this encounter Visit Diagnoses Not on filedocumented in this encounter Care Teams Diet Tech Relationship Specialty Start Date End Date Sahra Son MD PCP - General Internal Medicine 08/31/22 Marko Spaulding MD Specialist Cardiology 09/23/22 documented as of this encounter
--- OUTSIDE RECORDS SUMMARY | 2025-04-05 11:26 | XMS_ITS | Encounter Summary ---
Author Organization [facility] Address [address] [place] [address] Care Team Providers Care Mule Developer Name Role Phone Vinnie Santizo Primary Care Provider Sahra Keith MD Primary Care Provider Marko Fernandez MD Unavailable [phone] Encounter Details Date Type Department Care Team Description 08/27/2022 [facility] Medical Records [address] [place] [id number] [place] [address] Social History Tobacco Use Types Packs/Day Years [...] on filedocumented in this encounter Care Teams Mule Developer Relationship Specialty Start Date End Date Vinnie Santizo PCP - General Internal Medicine 03/30/17 08/30/22 Sahra Son MD PCP - General Internal Medicine 08/31/22 Marko Spaulding MD Specialist Cardiology 09/23/22 documented as of this encounter
--- OUTSIDE RECORDS SUMMARY | 2025-04-05 11:26 | XMS_ITS | Encounter Summary ---
Author Organization [facility] Address [address] [place] [address] Phone Care Team Providers Care Freight Car Repairer Name Role Phone Sahra Son MD Primary Care Provider + Encounter Details Date Type Department Care Team ([facility] Contact Info) Description 06/18/2021 Documentation Only [facility] [address] [place] [address] India Davalos [address] [place] [address] Social History Tobacco Use Types [...] [facility] [address] [place] [address] Barry Reyes MD [address] [place] [address] [place] [address] documented as of this encounter Visit Diagnoses Not on filedocumented in this encounter Care Teams Freight Car Repairer Relationship Specialty Start Date End Date Sahra Son MD [address] [address] PCP - General Internal Medicine 10/28/22 documented as of this encounter
--- OUTSIDE RECORDS SUMMARY | 2025-04-05 11:27 | XMS_ITS | Encounter Summary ---
Author Organization [facility] Address [address] [facility] [address] [place] [address] Encounters * CPT with Felix Tariq at [facility] on 2024-11-22 64 y/o female Patient called [...] full sentences, abdomen, soft, nontender, extremities unremarkable. [facility] discusses contraindications to Toradol. Supportive care alternatives mentioned, patient rejectsconversation and ends visit. Patient heard to be calling PCP office. IV_(FLUIDS_AND/OR_MEDICATION), MEDICATION_IM Written by Felix Tariq on 2024-11-22
--- OUTSIDE RECORDS SUMMARY | 2025-04-05 11:27 | XMS_ITS | Encounter Summary ---
Author Organization [facility] Address [address] [place] [address] Phone Care Team Providers Care Web Merchant Name Role Phone Sahra Son MD Primary Care Provider + Encounter Details Date Type Department Care Team ([facility] Contact Info) Description 08/11/2022 Documentation Only [facility] [address] [place] [address] India Davalos [address] [place] [address] Social History Tobacco Use Types [...] [facility] [address] [place] [address] Barry Reyes MD [address] [place] [address] [place] [address] documented as of this encounter Visit Diagnoses Not on filedocumented in this encounter Care Teams Web Merchant Relationship Specialty Start Date End Date Sahra Son MD [address] [address] PCP - General Internal Medicine 10/28/22 documented as of this encounter
--- OUTSIDE RECORDS SUMMARY | 2025-04-05 11:27 | XMS_ITS | Encounter Summary ---
Author Organization [facility] Address [address] [place] [address] Phone Care Team Providers Care Amplifier Mechanic Name Role Phone Sahra Son MD Primary Care Provider + Encounter Details Date Type Department Care Team ([facility] Contact Info) Description 09/28/2022 Documentation Only [facility] [address] [place] [address] India Davalos [address] [place], [...] Upcoming Encounters Date Type Department Care Team ([facility] Contact Info) Description 06/05/2025 2:50 PM EST Office Visit [facility] [address] [place] [address] Barry Reyes MD [address] [place] [address] [place] [address] documented as of this encounter Visit Diagnoses Not on filedocumented in this encounter Care Teams Amplifier Mechanic Relationship Specialty Start Date End Date Sahra Son MD NPI: [id number] [place] [address] PCP - General Internal Medicine 10/28/22 documented as of this encounter
--- OUTSIDE RECORDS SUMMARY | 2025-04-05 11:27 | XMS_ITS | Encounter Summary ---
Author Organization [facility] Address [address] [place] [address] Phone Care Team Providers Care Patent Paralegal Name Role Phone Sahra Son MD Primary Care Provider + Encounter Details Date Type Department Care Team (Late Contact Info) Description 02/04/2024 Orders Only [facility] [address] [place] [address] India Davalos [address] [place] [address] Chronic kidney disease, stage 2 [...] Services Of [facility] [address] [place] [address] Barry Reyes MD [address] [place] [address] [place] [address] documented [...] Glucose 169(H) 70 - 99 mg/dL [facility] BUN 16 8 - 27 mg/dL [facility] Creatinine 1.00 0.57 - 1.00 mg/dL [facility] eGFR CKD-EPI CR 2020 63 >59 mL/min/1.7 3 [facility] BUN/Creatinine Ratio 16 12 - 28 [facility] Sodium 138 134 - 144 mmol/L [facility] Potassium 4.8 3.5 - 5.2 mmol/L [facility] Chloride 100 96 - 106 mmol/L [facility] Bicarbonate (CO2) 22 20 - 29 mmol/L [facility] Calcium 9.1 8.7 - 10.3 mg/dL [facility] Albumin 4.1 3.9 - 4.9 g/dL [facility] Phosphorus 4.2 3.0 - 4.3 mg/dL [facility] Blood specimen (specimen) Venous blood / Unknown 02/22/2024 8:29 AM EDT 02/22/2024 Barry Reyes MD LAB BLOOD ORDERABLES Final Re sult Performing Organization Address City/[facility]/ZIP Co de Phone Number [facility] [address] [place] [address] * Ferritin (02/22/2024 8:29 AM EDT) Ferritin 47 15 - 150 ng/mL [facility] Blood specimen (specimen) Venous blood / Unknown 02/22/2024 8:29 AM EDT 02/22/2024 Baryr Reyes MD LAB BLOOD ORDERABLES Final Re sult Performing Organization Address [facility] de Phone Number [facility] [address] [place] [address] * (ABNORMAL) Iron Panel (Fe, TIBC, TSAT) (02/22/2024 8:29 AM EDT) Iron 39 27 - 139 ug/dL [facility] TIBC 310 250 - 450 ug/dL [facility] UIBC 271 118 - 369 ug/dL [facility] Iron Saturation (TSat) 13(L) 15 - 55 % [facility] Blood specimen (specimen) Venous blood / Unknown 02/22/2024 8:29 AM EDT 02/22/2024 Barry Reyes MD LAB BLOOD ORDERABLES Final Re sult Performing Organization Address City/[facility]/ZIP Co de Phone Number [facility] [address] [facility] [place] [address] * (ABNORMAL) CBC and Differential (02/22/2024 8:29 AM EDT) [facility] WBC 5.9 3.4 - 10.8 x10E3/uL [facility] RBC 5.33(H) 3.77 - 5.28 x10E6/uL [facility] Hemoglobin 10.3(L) 11.1 - 15.9 g/dL [facility] Hematocrit 35.1 34.0 - 46.6 % [facility] MCV 66(L) 79 - 97 fL [facility] MCH 19.3(L) 26.6 - 33.0 pg [facility] MCHC 29.3(L) 31.5 - 35.7 g/dL [facility] RDW 19.3(H) 11.7 - 15.4 % [facility] Platelets 174 150 - 450 x10E3/uL [facility] Neutrophils Relative 71 Not Estab. % [facility] Lymphocytes Relative 21 Not Estab. % [facility] Monocytes 5 Not Estab. % [facility] Eosinophils Relative 1 Not Estab. % [facility] Basophils Relative 1 Not Estab. % [facility] Neutrophils Absolute 4.2 1.4 - 7.0 x10E3/uL [facility] Lymphocytes Absolute 1.3 0.7 - 3.1 x10E3/uL [facility] Monocytes Absolute 0.3 0.1 - 0.9 x10E3/uL [facility] Eosinophils Absolute 0.1 0.0 - 0.4 x10E3/uL [facility] Basophils Absolute 0.0 0.0 - 0.2 x10E3/uL [facility] Immature Granulocytes 1 Not Estab. % [facility] Immature Grans (Absolute) 0.0 0.0 - 0.1 x10E3/uL [facility] Blood specimen (specimen) Venous blood / Unknown 02/22/2024 8:29 AM EDT 02/22/2024 us Barry Reyes MD LAB BLOOD ORDERABLES Final Re sult [facility] [address] [place] [address] documented in this encounter Visit Diagnoses Diagnosis Chronic kidney disease, stage 2 (mild) Anemia in chronic kidney disease Iron deficiency anemia, not otherwise specified documented in this encounter Care Teams Patent Paralegal Relationship Specialty Start Date End Date Sahra Son MD [address] [place] [address] PCP - General Internal Medicine 10/28/22 documented as of this encounter
--- OUTSIDE RECORDS SUMMARY | 2025-04-05 11:27 | XMS_ITS | Encounter Summary ---
Author Organization [facility] Address [address] [place] [address] Phone Care Team Providers Care Retail Sales Director Name Role Phone Sahra Son MD Primary Care Provider + Encounter Details Date Type Department Care Team ([facility] Contact Info) Description 06/17/2022 Documentation Only [facility] [address] [place] [address] India Davalos [address] [place] [address] Social History Tobacco Use Types [...] [facility] [address] [place] [address] Barry Reyes MD [address] [place] [address] [place] [address] documented as of this encounter Visit Diagnoses Not on filedocumented in this encounter Care Teams Retail Sales Director Relationship Specialty Start Date End Date Sahra Son MD [address] [address] PCP - General Internal Medicine 10/28/22 documented as of this encounter
--- OUTSIDE RECORDS SUMMARY | 2025-04-05 11:27 | XMS_ITS | Encounter Summary ---
Author Organization [facility] Address [address] [place] [address] Phone Care Team Providers Care Operations Trainer Name Role Phone Sahra Son MD Primary Care Provider + Encounter Details Date Type Department Care Team (Late st Contact Info) Description 03/22/2024 Documentation Only [facility] [place], [address] [place] [address] India Davalos [address] [place] [address] Social History Tobacco Use Types [...] Upcoming Encounters Date Type Department Care Team ([facility] st Contact Info) Description 06/05/2025 2:50 PM EST Office Visit [facility] [place], [address] [place] [address] Barry Reyes MD [address] [place] [address] [place] [address] documented as of this encounter Visit Diagnoses Not on filedocumented in this encounter Care Teams Operations Trainer Relationship Specialty Start Date End Date Sahra Son MD [address] [address] PCP - General Internal Medicine 10/28/22 documented as of this encounter
--- OUTSIDE RECORDS SUMMARY | 2025-04-05 11:27 | XMS_ITS | Encounter Summary ---
Author Organization [facility] Address [address] [place] [address] Phone Care Team Providers Care Brass Chaser Name Role Phone Sahra Son MD Primary Care Provider + Encounter Details Date Type Department Care Team ([facility] Contact Info) Description 03/23/2024 Documentation Only [facility] [address] [place] [address] India Davalos [address] [place] [address] Social History Tobacco Use Types [...] [facility] [address] [place] [address] Barry Reyes MD [address] [place] [address] [place] [address] documented as of this encounter Visit Diagnoses Not on filedocumented in this encounter Care Teams Brass Chaser Relationship Specialty Start Date End Date Sahra Son MD [address] [address] PCP - General Internal Medicine 10/28/22 documented as of this encounter
--- OUTSIDE RECORDS SUMMARY | 2025-04-05 11:27 | XMS_ITS | Encounter Summary ---
Author Organization [facility] Address [address] [place] [address] Phone Care Team Providers Care Marine Steamfitter Name Role Phone Sahra Son MD Primary Care Provider + Encounter Details Date Type Department Care Team (Late Contact Info) Description 03/03/2024 Orders Only [facility] [address] [place] [address] India Davalos [address] [place] [address] Chronic kidney disease, stage 2 [...] Of [facility] [address] [facility] [place] [address] Barry Reyes MD [address] [place] [address] [place] [address] documented as of this encounter [...] Glucose 152(H) 70 - 99 mg/dL [facility] BUN 16 8 - 27 mg/dL [facility] Creatinine 0.98 0.57 - 1.00 mg/dL [facility] eGFR CKD-EPI CR 2020 64 >59 mL/min/1.7 3 [facility] BUN/Creatinine Ratio 16 12 - 28 [facility] Sodium 137 134 - 144 mmol/L [facility] Potassium 4.8 3.5 - 5.2 mmol/L [facility] Chloride 101 96 - 106 mmol/L [facility] Bicarbonate (CO2) 22 20 - 29 mmol/L [facility] Calcium 8.8 8.7 - 10.3 mg/dL [facility] Albumin 4.0 3.9 - 4.9 g/dL [facility] Phosphorus 4.0 3.0 - 4.3 mg/dL [facility] Blood specimen (specimen) Venous blood / Unknown 03/24/2024 10:37 AM EST 03/24/2024 Barry Reyes MD LAB BLOOD ORDERABLES Final Re sult [facility] [address] [place] [address] * Ferritin (03/24/2024 10:37 AM EST) Ferritin 37 15 - 150 ng/mL [facility] Blood specimen (specimen) Venous blood / Unknown 03/24/2024 10:37 AM EST 03/24/2024 Barry Reyes MD LAB BLOOD ORDERABLES Final Re sult Performing Organization Address [facility] Co de Phone Number [facility] [address] [place] [address] * Iron Panel (Fe, TIBC, TSAT) (03/24/2024 10:37 AM EST) TIBC 293 250 - 450 ug/dL [facility] UIBC 247 118 - 369 ug/dL [facility] Iron 46 27 - 139 ug/dL [facility] Iron Saturation (TSat) 16 15 - 55 % [facility] Blood specimen (specimen) Venous blood / Unknown 03/24/2024 10:37 AM EST 03/24/2024 Barry Reyes MD LAB BLOOD ORDERABLES Final Re sult Performing Organization Address City/[facility]/ZIP Co de Phone Number [facility] [address] [place] [address] * (ABNORMAL) CBC and Differential (03/24/2024 10:37 AM EST) [facility] WBC 6.0 3.4 - 10.8 x10E3/uL [facility] RBC 5.21 3.77 - 5.28 x10E6/uL [facility] Hemoglobin 10.0(L) 11.1 - 15.9 g/dL [facility] Hematocrit 35.3 34.0 - 46.6 % [facility] MCV 68(L) 79 - 97 fL [facility] MCH 19.2(L) 26.6 - 33.0 pg [facility] MCHC 28.3(L) 31.5 - 35.7 g/dL [facility] RDW 19.4(H) 11.7 - 15.4 % [facility] Platelets 186 150 - 450 x10E3/uL [facility] Neutrophils Relative 65 Not Estab. % [facility] Lymphocytes Relative 26 Not Estab. % [facility] Monocytes 6 Not Estab. % [facility] Eosinophils Relative 2 Not Estab. % [facility] Basophils Relative 1 Not Estab. % [facility] Neutrophils Absolute 3.9 1.4 - 7.0 x10E3/uL [facility] Lymphocytes Absolute 1.5 0.7 - 3.1 x10E3/uL [facility] Monocytes Absolute 0.3 0.1 - 0.9 x10E3/uL [facility] Eosinophils Absolute 0.1 0.0 - 0.4 x10E3/uL [facility] Basophils Absolute 0.0 0.0 - 0.2 x10E3/uL [facility] Immature Granulocytes 0 Not Estab. % [facility] Immature Grans (Absolute) 0.0 0.0 - 0.1 x10E3/uL [facility] Blood specimen (specimen) Venous blood / Unknown 03/24/2024 10:37 AM EST 03/24/2024 us Barry Reyes MD LAB BLOOD ORDERABLES Final Re sult [facility] [address] [place] [address] documented in this encounter Visit Diagnoses Diagnosis Chronic kidney disease, stage 2 (mild) Anemia in chronic kidney disease Iron deficiency anemia, not otherwise specified documented in this encounter Care Teams Marine Steamfitter Relationship Specialty Start Date End Date Sahra Son MD [address] [address] PCP - General Internal Medicine 10/28/22 documented as of this encounter
--- OUTSIDE RECORDS SUMMARY | 2025-04-05 11:27 | XMS_ITS | Encounter Summary ---
Author Organization [facility] Address [address] [place] [address] Phone Care Team Providers Care French Weaver Name Role Phone Sahra Son MD Primary Care Provider + Encounter Details Date Type Department Care Team ([facility] Contact Info) Description 06/22/2022 Documentation Only [facility] [address] [place] [address] India Davalos [address] [place] [address] Social History Tobacco Use Types [...] [facility] [address] [place] [address] Barry Reyes MD [address] [place] [address] [place] [address] documented as of this encounter Visit Diagnoses Not on filedocumented in this encounter Care Teams French Weaver Relationship Specialty Start Date End Date Sahra Son MD [address] [address] PCP - General Internal Medicine 10/28/22 documented as of this encounter
--- OUTSIDE RECORDS SUMMARY | 2025-04-05 11:27 | XMS_ITS | Encounter Summary ---
Author Organization [facility] Address [address] [place] [address] Phone Care Team Providers Care Gas Utility Worker Name Role Phone Sahra Son MD Primary Care Provider + Encounter Details Date Type Department Care Team ([facility] Contact Info) Description 06/16/2022 Documentation Only [facility] [address] [place] [address] India Davalos [address] [place], [...] Upcoming Encounters Date Type Department Care Team ([facility] Contact Info) Description 06/05/2025 2:50 PM EST Office Visit [facility] [address] [place] [address] Barry Reyes MD [address] [place] [address] [place] [address] documented as of this encounter Visit Diagnoses Not on filedocumented in this encounter Care Teams Gas Utility Worker Relationship Specialty Start Date End Date Sahra Son MD NPI: [id number] [place] [address] PCP - General Internal Medicine 10/28/22 documented as of this encounter
--- OUTSIDE RECORDS SUMMARY | 2025-04-05 11:27 | XMS_ITS | Encounter Summary ---
Author Organization [facility] Address [address] [place] [address] Phone Care Team Providers Care Portainer Operator Name Role Phone Sahra Son MD Primary Care Provider + Encounter Details Date Type Department Care Team ([facility] Contact Info) Description 09/28/2022 Documentation Only [facility] [address] [place] [address] India Davalos [address] [place] [address] Social History Tobacco Use Types [...] [facility] [address] [place] [address] Barry Reyes MD [address] [place] [address] [place] [address] documented as of this encounter Visit Diagnoses Not on filedocumented in this encounter Care Teams Portainer Operator Relationship Specialty Start Date End Date Sahra Son MD NPI: [id number] [place] [address] PCP - General Internal Medicine 10/28/22 documented as of this encounter
--- OUTSIDE RECORDS SUMMARY | 2025-04-05 11:27 | XMS_ITS | Encounter Summary ---
Author Organization [facility] Address [address] [place] [address] Phone Care Team Providers Care Social Media Content Specialist Name Role Phone Sahra Son MD Primary Care Provider + Encounter Details Date Type Department Care Team ([facility] Contact Info) Description 09/18/2022 Documentation Only [facility] [address] [place] [address] India Davalos [address] [place] [address] Social History Tobacco Use Types [...] Upcoming Encounters Date Type Department Care Team ([facility] Contact Info) Description 06/05/2025 2:50 PM EST Office Visit [facility] [address] [place] [address] Barry Reyes MD [address] [place] [address] [place] [address] documented as of this encounter Visit Diagnoses Not on filedocumented in this encounter Care Teams Social Media Content Specialist Relationship Specialty Start Date End Date Sahra Son MD NPI: [id number] [place] [address] PCP - General Internal Medicine 10/28/22 documented as of this encounter
--- OUTSIDE RECORDS SUMMARY | 2025-04-05 11:27 | XMS_ITS | Encounter Summary ---
Author Organization [facility] Address [address] [place] [address] Phone Care Team Providers Care Chargeback Analyst Name Role Phone Sahra Sno MD Primary Care Provider + Encounter Details Date Type Department Care Team ([facility] Contact Info) Description 09/28/2022 Documentation Only [facility] [address] [place] [address] India Davalos [address] [place] [address] Social History Tobacco Use Types [...] Upcoming Encounters Date Type Department Care Team ([facility] Contact Info) Description 06/05/2025 2:50 PM EST Office Visit [facility] [address] [place] [address] Barry Reyes MD [address] [place] [address] [place] [address] documented as of this encounter Visit Diagnoses Not on filedocumented in this encounter Care Teams Chargeback Analyst Relationship Specialty Start Date End Date Sahra Son MD NPI: [id number] [place] [address] PCP - General Internal Medicine 10/28/22 documented as of this encounter
--- OUTSIDE RECORDS SUMMARY | 2025-04-05 11:27 | XMS_ITS | Encounter Summary ---
Author Organization [facility] Address [address] [place] [address] Phone Care Team Providers Care Title I Teacher Name Role Phone Sahra Son MD Primary Care Provider + Encounter Details Date Type Department Care Team ([facility] Contact Info) Description 09/28/2022 Documentation Only [facility] [address] [place] [address] India Davalos [address] [place] [address] Social History Tobacco Use Types [...] - [facility] Contact Info) Description 06/05/2025 2:50 PM EST Office Visit [facility] [address] [place] [address] Barry Reyes MD [address] [place] [address] [place] [address] documented as of this encounter Visit Diagnoses Not on filedocumented in this encounter Care Teams Title I Teacher Relationship Specialty Start Date End Date Sahra Son MD NPI: [id number] [place] [address] PCP - General Internal Medicine 10/28/22 documented as of this encounter
--- OUTSIDE RECORDS SUMMARY | 2025-04-05 11:28 | XMS_ITS | Encounter Summary ---
Author Organization [facility] Address [address] [place] [address] Phone Care Team Providers Care Master In Chancery Name Role Phone Sahra Son MD Primary Care Provider + Encounter Details Date Type Department Care Team (Late Contact Info) Description 06/30/2020 Orders Only [facility] [address] [place] [address] Carol Whelan [address] [place] [address] Iron deficiency anemia, not otherwise [...] [facility] [address] [place] [address] Barry Reyes MD [address] [facility] [place] [address] documented as of this encounter Visit Diagnoses Diagnosis Iron deficiency anemia, not otherwise specified Chronic kidney disease, Stage II (mild) documented in this encounter Care Teams Master In Chancery Relationship Specialty Start Date End Date Sahra Son MD [address] [place] [address] PCP - General Internal Medicine 10/28/22 documented as of this encounter
--- OUTSIDE RECORDS SUMMARY | 2025-04-05 11:28 | XMS_ITS | Encounter Summary ---
Author Organization [facility] Address [address] [place] [address] Phone Care Team Providers Care Nurse Practitioner Physician Assistant Name Role Phone Sahra Son MD Primary Care Provider + Encounter Details Date Type Department Care Team (Late st Contact Info) Description 07/07/2024 Orders Only [facility] [address] [place] [address] India Davalos [address] [place] [address] Anemia in chronic kidney disease; [...] Visit [facility] [address] [place] [address] Barry Reyes MD [address] [place] [address] documented as of this encounter Visit Diagnoses Diagnosis Anemia in chronic kidney disease Other iron deficiency anemia Chronic kidney disease, stage 2 (mild) documented in this encounter Care Teams Nurse Practitioner Physician Assistant Relationship Specialty Start Date End Date Sahra Son MD [facility] [place] [address] PCP - General Internal Medicine 10/28/22 documented as of this encounter
--- OUTSIDE RECORDS SUMMARY | 2025-04-05 11:28 | XMS_ITS | Encounter Summary ---
Author Organization [facility] Address [address] [place] [address] Phone Care Team Providers Care Tank House Operator Helper Name Role Phone Sahra Son MD Primary Care Provider + Encounter Details Date Type Department Care Team ([facility] Contact Info) Description 08/11/2022 Documentation Only [facility] [address] [place] [address] India Davalos [address] [place], [place] [...] [facility] [address] [place] [address] Barry Reyes MD [address] [place] [address] [place] [address] documented as of this encounter Visit Diagnoses Not on filedocumented in this encounter Care Teams Tank House Operator Helper Relationship Specialty Start Date End Date Sahra Son MD [address] [address] PCP - General Internal Medicine 10/28/22 documented as of this encounter
--- OUTSIDE RECORDS SUMMARY | 2025-04-05 11:29 | XMS_ITS | Encounter Summary ---
Author Organization [facility] Address [address] [place] [address] Phone Care Team Providers Care Acid Remover Name Role Phone Sahra Son MD Primary Care Provider + Encounter Details Date Type Department Care Team (Late st Contact Info) Description 06/09/2024 Orders Only [facility] [address] [place] [address] India Davalos [address] [place] [address] Anemia in chronic kidney disease; [...] Visit [facility] [address] [place] [address] Barry Reyes MD [address] [facility] [place] [address] documented as of this encounter Visit Diagnoses Diagnosis Anemia in chronic kidney disease Other iron deficiency anemia Chronic kidney disease, stage 2 (mild) documented in this encounter Care Teams Acid Remover Relationship Specialty Start Date End Date Sahra Son MD [facility] [place] [address] PCP - General Internal Medicine 10/28/22 documented as of this encounter
--- OUTSIDE RECORDS SUMMARY | 2025-04-05 11:29 | XMS_ITS | Encounter Summary ---
Author Organization [facility] Address [address] [place] [address] Phone Care Team Providers Care Textile Knitter Name Role Phone Sahra Son MD Primary Care Provider + Encounter Details Date Type Department Care Team (Late Contact Info) Description 08/18/2024 Orders Only [facility] [address] [place] [place] [address] India Davalos [address] [place] [address] Chronic kidney disease, stage 2 [...] [facility] [address] [place] [address] Barry Reyes MD [address] [place] [address] [place] [address] documented as of this encounter Visit Diagnoses Diagnosis Chronic kidney disease, stage 2 (mild) Anemia in chronic kidney disease Iron deficiency anemia, not otherwise specified documented in this encounter Care Teams Textile Knitter Relationship Specialty Start Date End Date Sahra Son MD [address] [place] [address] PCP - General Internal Medicine 10/28/22 documented as of this encounter
--- OUTSIDE RECORDS SUMMARY | 2025-04-05 11:29 | XMS_ITS | Encounter Summary ---
Author Organization [facility] Address [address] [place] [address] Phone Care Team Providers Care Channel Worker Name Role Phone Sahra Son MD Primary Care Provider + Encounter Details Date Type Department Care Team ([facility] Contact Info) Description 11/11/2023 Documentation Only [facility] [address] [place] [address] India Davalos [address] [place], [...] Care Team ([facility] Contact Info) Description 06/05/2025 2:50 PM EST Office Visit [facility] [address] [place] [address] Barry Reyes MD [address] [place] [address] [place] [address] documented as of this encounter Visit Diagnoses Not on filedocumented in this encounter Care Teams Channel Worker Relationship Specialty Start Date End Date Sahra Son MD NPI: [id number] [place] [address] PCP - General Internal Medicine 10/28/22 documented as of this encounter
--- OUTSIDE RECORDS SUMMARY | 2025-04-05 11:29 | XMS_ITS | Encounter Summary ---
Author Organization [facility] Address [address] [place] [address] Phone Care Team Providers Care Costume Maker Name Role Phone Sahra Son MD Primary Care Provider + Encounter Details Date Type Department Care Team ([facility] Contact Info) Description 04/08/2022 Documentation Only [facility] [address] [place] [place] [address] India Davalos [address] [place] [address] Social History Tobacco Use Types [...] [facility] [address] [place] [place] [address] Barry Reyes MD [address] [place] [address] [place] [address] documented as of this encounter Visit Diagnoses Not on filedocumented in this encounter Care Teams Costume Maker Relationship Specialty Start Date End Date Sahra Son MD [address] [address] PCP - General Internal Medicine 10/28/22 documented as of this encounter
--- OUTSIDE RECORDS SUMMARY | 2025-04-05 11:29 | XMS_ITS | Encounter Summary ---
Author Organization [facility] Address [address] [place] [address] Phone Care Team Providers Care Cord Splicer Name Role Phone Sahra Son MD Primary Care Provider + Encounter Details Date Type Department Care Team ([facility] Contact Info) Description 08/25/2024 Documentation Only [facility] [address] [place] [address] India Davalos [address] [place], [place] [...] [facility] [address] [place] [address] Barry Reyes MD [address] [place] [address] [place] [address] documented as of this encounter Visit Diagnoses Not on filedocumented in this encounter Care Teams Cord Splicer Relationship Specialty Start Date End Date Sahra Son MD [address] [address] PCP - General Internal Medicine 10/28/22 documented as of this encounter
--- OUTSIDE RECORDS SUMMARY | 2025-04-05 11:29 | XMS_ITS | Encounter Summary ---
Author Organization [facility] Address [address] [place] [address] Phone Care Team Providers Care Chain Sales Representative Name Role Phone Sahra Son MD Primary Care Provider + Encounter Details Date Type Department Care Team ([facility] Contact Info) Description 04/14/2022 Documentation Only [facility] [address] [place] [address] India Davalos [address] [place] [address] Social History Tobacco Use Types [...] [facility] [address] [place] [address] Barry Reyes MD [address] [place] [address] [place] [address] documented as of this encounter Visit Diagnoses Not on filedocumented in this encounter Care Teams Chain Sales Representative Relationship Specialty Start Date End Date Sahra Son MD [address] [address] PCP - General Internal Medicine 10/28/22 documented as of this encounter
--- OUTSIDE RECORDS SUMMARY | 2025-04-05 11:29 | XMS_ITS | Encounter Summary ---
Author Organization [facility] Address [address] [place] [address] Phone Care Team Providers Care Life Insurance Underwriter Name Role Phone Sahra Son MD Primary Care Provider + Encounter Details Date Type Department Care Team (Late Contact Info) Description 01/31/2024 Orders Only [facility] [address] [place] [address] Arlene Alston PA [address] [place] [address] [place] [address] Chronic kidney disease, stage 2 [...] Visit [facility] [address] [place] [address] Barry Reyes MD [address] [facility] [place] [address] documented as of this encounter Visit Diagnoses Diagnosis Chronic kidney disease, stage 2 (mild) Essential (primary) hypertension Iron deficiency anemia, not otherwise specified Type 2 diabetes mellitus, not otherwise specified (HCC) Antiphospholipid syndrome (HCC) documented in this encounter Care Teams Life Insurance Underwriter Relationship Specialty Start Date End Date Sahra Son MD [address] [address] PCP - General Internal Medicine 10/28/22 documented as of this encounter
--- OUTSIDE RECORDS SUMMARY | 2025-04-05 11:29 | XMS_ITS | Encounter Summary ---
Author Organization [facility] Address [address] [place] [address] Phone Care Team Providers Care Account Support Associate Name Role Phone Sahra Son MD Primary Care Provider + Encounter Details Date Type Department Care Team ([facility] Contact Info) Description 12/31/2023 Documentation Only [facility] [address] [place] [address] India Davalos [address] [place], [place] [...] [facility] [address] [place] [address] Barry Reyes MD [address] [place] [address] [place] [address] documented as of this encounter Visit Diagnoses Not on filedocumented in this encounter Care Teams Account Support Associate Relationship Specialty Start Date End Date Sahra Son MD [address] [address] PCP - General Internal Medicine 10/28/22 documented as of this encounter
--- OUTSIDE RECORDS SUMMARY | 2025-04-05 11:29 | XMS_ITS | Encounter Summary ---
Author Organization [facility] Address [address] [place] [address] Phone Care Team Providers Care Modeling Instructor Name Role Phone Sahra Son MD Primary Care Provider + Encounter Details Date Type Department Care Team ([facility] Contact Info) Description 11/21/2021 Documentation Only [facility] [address] [place] [address] India Davalos [address] [place] [address] Social History Tobacco Use [...] [facility] [address] [place] [address] Barry Reyes MD [address] [place] [address] [place] [address] documented as of this encounter Visit Diagnoses Not on filedocumented in this encounter Care Teams Modeling Instructor Relationship Specialty Start Date End Date Sahra Son MD [address] [address] PCP - General Internal Medicine 10/28/22 documented as of this encounter
--- OUTSIDE RECORDS SUMMARY | 2025-04-05 11:29 | XMS_ITS | Encounter Summary ---
Author Organization [facility] Address [address] [place] [address] Phone Care Team Providers Care Wool Fleece Grader Name Role Phone Sahra Son MD Primary Care Provider + Encounter Details Date Type Department Care Team ([facility] Contact Info) Description 08/28/2024 Documentation Only [facility] [address] [place] [address] India Davalos [address] [place] [address] Social History Tobacco Use Types [...] [facility] [address] [place] [place] [address] Barry Reyes MD [address] [place] [address] [place] [address] documented as of this encounter Visit Diagnoses Not on filedocumented in this encounter Care Teams Wool Fleece Grader Relationship Specialty Start Date End Date Sahra Son MD [address] [address] PCP - General Internal Medicine 10/28/22 documented as of this encounter
--- OUTSIDE RECORDS SUMMARY | 2025-04-05 11:29 | XMS_ITS | Encounter Summary ---
Author Organization [facility] Address [address] [place] [address] Phone Care Team Providers Care Deliver Driver Name Role Phone Sahra Son MD Primary Care Provider + Encounter Details Date Type Department Care Team ([facility] Contact Info) Description 08/24/2024 Documentation Only [facility] [address] [place] [address] India Davalos [address] [place] [address] Social History Tobacco Use Types [...] [facility] [address] [place] [address] Barry Reyes MD [address] [place] [address] [place] [address] documented as of this encounter Visit Diagnoses Not on filedocumented in this encounter Care Teams Deliver Driver Relationship Specialty Start Date End Date Sahra Son MD [address] [address] PCP - General Internal Medicine 10/28/22 documented as of this encounter
--- OUTSIDE RECORDS SUMMARY | 2025-04-05 11:29 | XMS_ITS | Encounter Summary ---
Author Organization [facility] Address [address] [place] [address] Phone Care Team Providers Care Playground Attendant Name Role Phone Sahra Son MD Primary Care Provider + Encounter Details Date Type Department Care Team ([facility] Contact Info) Description 01/04/2024 Documentation Only [facility] [address] [place] [address] India Davalos [address] [place] [address] Social History Tobacco Use Types [...] [facility] [address] [place] [address] Barry Reyes MD [address] [place] [address] [place] [address] documented as of this encounter Visit Diagnoses Not on filedocumented in this encounter Care Teams Playground Attendant Relationship Specialty Start Date End Date Sahra Son MD [address] [address] PCP - General Internal Medicine 10/28/22 documented as of this encounter
--- OUTSIDE RECORDS SUMMARY | 2025-04-05 11:30 | XMS_ITS | Encounter Summary ---
Author Organization [facility] Address [address] [place] [address] Phone Care Team Providers Care Scrap Kettle Tender Name Role Phone Sahra Son MD Primary Care Provider + Encounter Details Date Type Department Care Team ([facility] Contact Info) Description 11/11/2023 Documentation Only [facility] [address] [place] [address] India Davalos [address] [place] [address] Social History Tobacco Use Types [...] Care Team ([facility] Contact Info) Description 06/05/2025 2:50 PM EST Office Visit [facility] [address] [place] [address] Barry Reyes MD [address] [place] [address] [place] [address] documented as of this encounter Visit Diagnoses Not on filedocumented in this encounter Care Teams Scrap Kettle Tender Relationship Specialty Start Date End Date Sahra Son MD NPI: [id number] [place] [address] PCP - General Internal Medicine 10/28/22 documented as of this encounter
--- OUTSIDE RECORDS SUMMARY | 2025-04-05 11:30 | XMS_ITS | Encounter Summary ---
Author Organization [facility] Address [address] [place] [address] Phone Care Team Providers Care Commission Auditor Name Role Phone Sahra Son MD Primary Care Provider + Encounter Details Date Type Department Care Team ([facility] Contact Info) Description 11/17/2023 Documentation Only [facility] [address] [place] [place] [address] India Davalos [address] [place] [address] Social History Tobacco Use Types [...] [facility] [address] [place] [place] [address] Barry Reyes MD [address] [place] [address] [place] [address] documented as of this encounter Visit Diagnoses Not on filedocumented in this encounter Care Teams Commission Auditor Relationship Specialty Start Date End Date Sahra Son MD [address] [address] PCP - General Internal Medicine 10/28/22 documented as of this encounter
--- OUTSIDE RECORDS SUMMARY | 2025-04-05 11:30 | XMS_ITS | Encounter Summary ---
Author Organization [facility] Address [address] [place] [address] Phone Care Team Providers Care Para Operator Name Role Phone Sahra Son MD Primary Care Provider + Encounter Details Date Type Department Care Team ([facility] Contact Info) Description 11/11/2023 Documentation Only [facility] [address] [place] [address] India Davalos [address] [place] [address] Social History Tobacco Use Types [...] ([facility] Contact Info) Description 06/05/2025 2:50 PM EST Office Visit [facility] [address] [place] [address] Barry Reyes MD [address] [place] [address] [place] [address] documented as of this encounter Visit Diagnoses Not on filedocumented in this encounter Care Teams Para Operator Relationship Specialty Start Date End Date Sahra Son MD NPI: [id number] [place] [address] PCP - General Internal Medicine 10/28/22 documented as of this encounter
--- OUTSIDE RECORDS SUMMARY | 2025-04-05 11:30 | XMS_ITS | Encounter Summary ---
Author Organization [facility] [place], Address [address] [place] [address] Phone Care Team Providers Care Service Tester Name Role Phone Sahra Son MD Primary Care Provider + Encounter Details Date Type Department Care Team (Late st Contact Info) Description 12/23/2021 Documentation Only [facility] [place], [address] [place] [address] Juan Jose Li MD [address] [facility] [place] [address] Social History Tobacco Use Types [...] Visit [facility] [place], [address] [place] [phone] Barry Reyes MD [address] [place] [address] [place] [address] documented as of this encounter Visit Diagnoses Not on filedocumented in this encounter Care Teams Service Tester Relationship Specialty Start Date End Date Sahra Son MD [address] [address] PCP - General Internal Medicine 10/28/22 documented as of this encounter
--- OUTSIDE RECORDS SUMMARY | 2025-04-05 11:30 | XMS_ITS | Encounter Summary ---
Author Organization [facility] Address [address] [place] [address] Phone Care Team Providers Care Interactive Media Marketing Director Name Role Phone Sahra Son MD Primary Care Provider + Encounter Details Date Type Department Care Team ([facility] Contact Info) Description 11/11/2023 Documentation Only [facility] [address] [place] [address] India Davalos [address] [place] [address] Social History Tobacco Use Types [...] Encounters Date Type Department Care Team ([facility] Contact Info) Description 06/05/2025 2:50 PM EST Office Visit [facility] [address] [place] [address] Barry Reyes MD [address] [place] [address] [place] [address] documented as of this encounter Visit Diagnoses Not on filedocumented in this encounter Care Teams Interactive Media Marketing Director Relationship Specialty Start Date End Date Sahra Son MD NPI: [id number] [place] [address] PCP - General Internal Medicine 10/28/22 documented as of this encounter
--- OUTSIDE RECORDS SUMMARY | 2025-04-05 11:30 | XMS_ITS | Encounter Summary ---
Author Organization [facility] Address [address] [place] [address] Phone Care Team Providers Care Records Management Technician Name Role Phone Sahra Son MD Primary Care Provider + Encounter Details Date Type Department Care Team ([facility] Contact Info) Description 11/05/2023 Documentation Only [facility] [address] [place] [address] India Davalos [address] [place] [address] Social History Tobacco Use Types [...] [facility] [address] [place] [address] Barry Reyes MD [address] [place] [address] [place] [address] documented as of this encounter Visit Diagnoses Not on filedocumented in this encounter Care Teams Records Management Technician Relationship Specialty Start Date End Date Sahra Son MD [address] [address] PCP - General Internal Medicine 10/28/22 documented as of this encounter
--- OUTSIDE RECORDS SUMMARY | 2025-04-05 11:30 | XMS_ITS | Continuity of Care Document ---
Author Name Felix Tariq Address [address] [place] [id number] Organization Unknown Address [address] [place] [address] Medications No known medications Problems No known problems
--- OUTSIDE RECORDS SUMMARY | 2025-04-05 11:30 | XMS_ITS | Encounter Summary ---
Author Organization [facility] Address [address] [place] [address] Phone Care Team Providers Care Wood And Wood Products Factory Worker Name Role Phone Sahra Son MD Primary Care Provider + Encounter Details Date Type Department Care Team ([facility] Contact Info) Description 11/11/2023 Documentation Only [facility] [address] [place] [address] India Davalos [address] [place], [place] [...] Team ([facility] Contact Info) Description 06/05/2025 2:50 PM EST Office Visit [facility] [address] [place] [address] Barry Reyes MD [address] [place] [address] [place] [address] documented as of this encounter Visit Diagnoses Not on filedocumented in this encounter Care Teams Wood And Wood Products Factory Worker Relationship Specialty Start Date End Date Sahra Son MD NPI: [id number] [place] [address] PCP - General Internal Medicine 10/28/22 documented as of this encounter
--- OUTSIDE RECORDS SUMMARY | 2025-04-05 11:30 | XMS_ITS | Encounter Summary ---
Author Organization [facility] Address [address] [place] [address] Phone Care Team Providers Care Survey Party Chief Name Role Phone Sahra Son MD Primary Care Provider + Encounter Details Date Type Department Care Team ([facility] Contact Info) Description 11/11/2023 Documentation Only [facility] [address] [place] [address] India Davalos [address] [place] [address] Social History Tobacco Use Types [...] Upcoming Encounters Date Type Department Care Team ([facility] Contact Info) Description 06/05/2025 2:50 PM EST Office Visit [facility] [address] [place] [address] Barry Reyes MD [address] [place] [address] [place] [address] documented as of this encounter Visit Diagnoses Not on filedocumented in this encounter Care Teams Survey Party Chief Relationship Specialty Start Date End Date Sahra Son MD NPI: [id number] [place] [address] PCP - General Internal Medicine 10/28/22 documented as of this encounter
--- OUTSIDE RECORDS SUMMARY | 2025-04-05 11:31 | XMS_ITS | Encounter Summary ---
Author Organization [facility] Address [address] [place] [address] Phone Care Team Providers Care Golf Range Attendant Name Role Phone Sahra Son MD Primary Care Provider + Encounter Details Date Type Department Care Team ([facility] Contact Info) Description 01/06/2022 Documentation Only [facility] [address] [place] [address] Juan Jose Li MD [address] [place] [address] [place] [address] Social History Tobacco Use Types [...] Visit [facility] [address] [place] [address] Barry Reyes MD [address] [place] [address] documented as of this encounter Visit Diagnoses Not on filedocumented in this encounter Care Teams Golf Range Attendant Relationship Specialty Start Date End Date Sahra Son MD [address] [address] PCP - General Internal Medicine 10/28/22 documented as of this encounter
--- OUTSIDE RECORDS SUMMARY | 2025-04-05 11:31 | XMS_ITS | Encounter Summary ---
Author Organization [facility] Address [address] [place] [address] Phone Care Team Providers Care Senior Software Test Engineer Name Role Phone Sahra Son MD Primary Care Provider + Encounter Details Date Type Department Care Team ([facility] Contact Info) Description 03/11/2023 Documentation Only [facility] [address] [place] [address] India Davalos [address] [place] [address] Social History Tobacco Use Types [...] Upcoming Encounters Date Type Department Care Team ([facility] Contact Info) Description 06/05/2025 2:50 PM EST Office Visit [facility] [address] [place] [address] Barry Reyes MD [address] [place] [address] [place] [address] documented as of this encounter Visit Diagnoses Not on filedocumented in this encounter Care Teams Senior Software Test Engineer Relationship Specialty Start Date End Date Sahra Son MD [address] [address] PCP - General Internal Medicine 10/28/22 documented as of this encounter
--- OUTSIDE RECORDS SUMMARY | 2025-04-05 11:31 | XMS_ITS | Encounter Summary ---
Author Organization [facility] Address [address] [place] [address] Phone Care Team Providers Care Operational Risk Analyst Name Role Phone Sahra Son MD Primary Care Provider + Encounter Details Date Type Department Care Team ([facility] Contact Info) Description 11/19/2023 Documentation Only [facility] [address] [place] [address] India Davalos [address] [place] [address] Social History Tobacco Use [...] [facility] [address] [place] [address] Barry Reyes MD [address] [place] [address] [place] [address] documented as of this encounter Visit Diagnoses Not on filedocumented in this encounter Care Teams Operational Risk Analyst Relationship Specialty Start Date End Date Sahra Son MD [address] [address] PCP - General Internal Medicine 10/28/22 documented as of this encounter
--- OUTSIDE RECORDS SUMMARY | 2025-04-05 11:31 | XMS_ITS | Encounter Summary ---
Author Organization [facility] Address [address] [place] [address] Phone Care Team Providers Care Bsa/Aml Compliance Officer Name Role Phone Sahra Son MD Primary Care Provider + Encounter Details Date Type Department Care Team ([facility] Contact Info) Description 11/30/2023 Documentation Only [facility] [address] [place] [address] India Davalos [address] [place] [address] Social History Tobacco Use Types [...] [facility] [address] [place] [address] Barry Reyes MD [address] [place] [address] [place] [address] documented as of this encounter Visit Diagnoses Not on filedocumented in this encounter Care Teams Bsa/Aml Compliance Officer Relationship Specialty Start Date End Date Sahra Son MD [address] [address] PCP - General Internal Medicine 10/28/22 documented as of this encounter
--- OUTSIDE RECORDS SUMMARY | 2025-04-05 11:32 | XMS_ITS | Encounter Summary ---
Author Organization [facility] Address [address] [place] [address] Phone Care Team Providers Care Service Coordinator Elderly Facility Name Role Phone Sahra Son MD Primary Care Provider + Encounter Details Date Type Department Care Team ([facility] Contact Info) Description 01/29/2023 Documentation Only [facility] [address] [place] [address] India Davalos [address] [place], [place] [...] [facility] [address] [place] [address] Barry Reyes MD [address] [place] [address] [place] [address] documented as of this encounter Visit Diagnoses Not on filedocumented in this encounter Care Teams Service Coordinator Elderly Facility Relationship Specialty Start Date End Date Sahra Son MD [address] [address] PCP - General Internal Medicine 10/28/22 documented as of this encounter
--- OUTSIDE RECORDS SUMMARY | 2025-04-05 11:32 | XMS_ITS | Encounter Summary ---
Author Organization [facility] Address [address] [address] Phone Care Team Providers Care Packing Inspector Name Role Phone Sahra Son MD Primary Care Provider + Encounter Details Date Type Department Care Team (Late st Contact Info) Description 08/22/2021 Documentation Only [facility] [place], [address] [place] [address] India Davalos [address] [place] [address] Social History Tobacco Use Types [...] [facility] [address] [place] [address] Barry Reyes MD [address] [place] [address] [place] [address] documented as of this encounter Visit Diagnoses Not on filedocumented in this encounter Care Teams Packing Inspector Relationship Specialty Start Date End Date Sahra Son MD [address] [address] PCP - General Internal Medicine 10/28/22 documented as of this encounter
--- OUTSIDE RECORDS SUMMARY | 2025-04-05 11:32 | XMS_ITS | Encounter Summary ---
Author Organization [facility] Address [address] [place] [address] Phone Care Team Providers Care Flight Test Supervisor Name Role Phone Sahra Son MD Primary Care Provider + Encounter Details Date Type Department Care Team ([facility] Contact Info) Description 08/09/2023 Documentation Only [facility] [address] [place] [address] India Davalos [address] [place] [address] Social History Tobacco Use Types [...] [facility] [address] [place] [address] Barry Reyes MD [address] [place] [address] [place] [address] documented as of this encounter Visit Diagnoses Not on filedocumented in this encounter Care Teams Flight Test Supervisor Relationship Specialty Start Date End Date Sahra Son MD [address] [address] PCP - General Internal Medicine 10/28/22 documented as of this encounter
--- OUTSIDE RECORDS SUMMARY | 2025-04-05 11:32 | XMS_ITS | Encounter Summary ---
Author Organization [facility] Address [address] [place] [address] Phone Care Team Providers Care Flame Cutter Name Role Phone Sahra Son MD Primary Care Provider + Encounter Details Date Type Department Care Team ([facility] Contact Info) Description 08/27/2021 Documentation Only [facility] [address] [place] [address] India Davalos [address] [place], [place] [...] [facility] [address] [place] [address] Barry Reyes MD [address] [place] [address] [place] [address] documented as of this encounter Visit Diagnoses Not on filedocumented in this encounter Care Teams Flame Cutter Relationship Specialty Start Date End Date Sahra Son MD [address] [address] PCP - General Internal Medicine 10/28/22 documented as of this encounter
--- OUTSIDE RECORDS SUMMARY | 2025-04-05 11:32 | XMS_ITS | Encounter Summary ---
Author Organization [facility] Address [address] [place] [address] Phone Care Team Providers Care Rose Grower Name Role Phone Sahra Son MD Primary Care Provider + Encounter Details Date Type Department Care Team ([facility] Contact Info) Description 03/11/2023 Documentation Only [facility] [address] [place] [address] India Davalos [address] [place], [place] [...] Upcoming Encounters Date Type Department Care Team ([facility] Contact Info) Description 06/05/2025 2:50 PM EST Office Visit [facility] [address] [place] [address] Barry Reyes MD [address] [place] [address] [place] [address] documented as of this encounter Visit Diagnoses Not on filedocumented in this encounter Care Teams Rose Grower Relationship Specialty Start Date End Date Sahra Son MD [address] [address] PCP - General Internal Medicine 10/28/22 documented as of this encounter
--- OUTSIDE RECORDS SUMMARY | 2025-04-05 11:32 | XMS_ITS | Encounter Summary ---
Author Organization [facility] Address [address] [place] [address] Phone Care Team Providers Care Second Shift Supervisor Name Role Phone Sahra Son MD Primary Care Provider + Encounter Details Date Type Department Care Team (Late Contact Info) Description 12/24/2022 Documentation Only [facility] [address] [place] [address] Carol Whelan [address] [place] [address] Social History Tobacco Use Types [...] [facility] [address] [place] [address] Barry Reyes MD [address] [place] [address] [place] [address] documented as of this encounter Visit Diagnoses Not on filedocumented in this encounter Care Teams Second Shift Supervisor Relationship Specialty Start Date End Date Sahra Son MD [address] [address] PCP - General Internal Medicine 10/28/22 documented as of this encounter
--- OUTSIDE RECORDS SUMMARY | 2025-04-05 11:32 | XMS_ITS | Encounter Summary ---
Author Organization [facility] Address [address] [place] [address] Phone Care Team Providers Care Registered Nurses Name Role Phone Sahra Son MD Primary Care Provider + Encounter Details Date Type Department Care Team (Late st Contact Info) Description 05/17/2023 Orders Only [facility] [address] [place] [address] Arlene Alston PA [address] [place] [address] Chronic kidney disease, stage 2 [...] And [facility]plant [facility] [address] [place] [address] Barry Reyes MD [address] [facility] [address] [place] [address] documented as of this encounter [...] [facility] Iron Saturation (TSat) 17(L) (20-55) % [facility] Comment: Testing performed or reported by [facility], a Service of [address] [address] Luis A Bailey MD, Security Systems Technician CLIA# [id number] Blood specimen (specimen) Venous blood / Unknown 06/08/2023 8:36 AM EST 06/08/2023 8:39 AM EST Arlene CARTER LAB BLOOD ORDERABLES Final Re sult Performing Organization Address [facility] Co de Phone Number [facility] * Vitamin D 25 hydroxy (06/08/2023 8:36 AM EST) [facility] Vitamin D, 25-Hydroxy 24.8 (20-50) NG/ML [facility] Comment: Testing performed or reported by [facility], a Service of [facility], [address] [place] [address] Luis A Bailey MD, Security Systems Technician CLIA# [id number] Blood specimen (specimen) Venous blood / Unknown 06/08/2023 8:36 AM EST 06/08/2023 8:39 AM EST Arlene CARTER LAB BLOOD ORDERABLES Final Re sult Performing Organization Address City/[facility] Co de Phone Number [facility] * (ABNORMAL) Renal function panel (06/08/2023 8:36 AM EST) [facility] Glucose 166(H) (70-99) MG/DL [facility] BUN 19 (8-23) MG/DL [facility] Creatinine 1.0 (0.5-1.0) MG/DL [facility] Sodium 138 (133-145) MMOL/L [facility] Potassium 4.9 (3.6-5.2) MMOL/L [facility] Chloride 101 (98-107) MMOL/L [facility] Bicarbonate (CO2) 27 (22-29) MMOL/L [facility] Anion Gap 10 (4-17) [facility] Albumin 4.2 (3.4-4.8) GM/DL [facility] Calcium 9.1 (8.6-10.5) MG/DL [facility] Phosphorus, Serum 3.4 (2.5-4.5) MG/DL [facility] Est GFR Non 66 ML/MIN/1.7 3 M2 [facility] Comment: Creatinine based estimated glomerular filtration (eGFR) in adults is calculated using the National Kidney Foundation recommended 2020 CKD-EPI equation. Estimates GFR from serum creatinine, age and sex. Testing performed or reported by [facility], a Service of [address] [address] Luis A Bailey MD, Security Systems Technician CLIA# [id number] Blood specimen (specimen) Venous blood / Unknown 06/08/2023 8:36 AM EST 06/08/2023 8:39 AM EST Arlene CARTER LAB BLOOD ORDERABLES Final Re sult Performing Organization Address [facility] de Phone Number [facility] * Magnesium (06/08/2023 8:36 AM EST) Magnesium 2.1 (1.6-2.3) mg/dL [facility] Comment: Testing performed or reported by [facility], a Service of [address] [address] Luis A Bailey MD, Security Systems Technician CLIA# [id number] Blood specimen (specimen) Venous blood / Unknown 06/08/2023 8:36 AM EST 06/08/2023 8:39 AM EST Arlene CARTER LAB BLOOD ORDERABLES Final Re sult [facility] * (ABNORMAL) Hemoglobin A1c (06/08/2023 8:36 AM EST) Hemoglobin A1C 7.2(H) (4.0-5.6) % [facility] Comment: MONITORING: In known diabetic patients, hemoglobin A1c targets should be discussed with health care provider. DIAGNOSTIC USE: The [place] Diabetes Association (ADA) and the World Health [...] Supplement 1 Testing performed or reported by [facility], a Service of [facility], [address] [place] [address] Luis A Bailey MD, Security Systems Technician [facility]# [id number] Blood specimen (specimen) Venous blood / Unknown 06/08/2023 8:36 AM EST 06/08/2023 8:38 AM EST Arlene CARTER LAB BLOOD ORDERABLES Final Re sult [facility] * (ABNORMAL) CBC and differential (06/08/2023 8:36 AM EST) White Blood Cells 5.2 (4.0-11.0 ) K/MM3 [facility] RBC 5.08 (4.20-5.4 0) M/MM3 [facility] Hgb 10.1(L) (11.7-15. 5) GM/DL [facility] Hematocrit 32.9(L) (35.7-45. 8) % [facility] MCV 64.8(L) (80.0-100 .0) [place] [facility] MCH 19.9(L) (27.0-34. 0) PG [facility] MCHC 30.7(L) (33.0-37. 0) g/dL [facility] Platelets 191 (150-460) K/MM3 [facility] RDW-SD 40.3 (<47.0) [place] [facility] MPV NOT MEASURED (9.4-12.4 ) [place] [facility] nRBC Count 0.0 #/100 WBC'S [facility] NRBC Absolute 0.0 K/MM3 [facility] Neutrophils Abs Auto 3.5 (1.3-7.0) K/MM3 [...] [facility] Comment: Testing performed or reported by [facility], a Service of [facility], [address] [place] [address] Luis A Bailey MD, Security Systems Technician [facility]# [id number] Blood specimen (specimen) Venous blood / Unknown 06/08/2023 8:36 AM EST 06/08/2023 8:38 AM EST Arlene CARTER LAB BLOOD ORDERABLES Final Re sult [facility] documented in this encounter Visit Diagnoses Diagnosis Chronic kidney disease, stage 2 (mild) Essential (primary) hypertension Anemia in chronic kidney disease Antiphospholipid syndrome (HCC) Type 2 diabetes mellitus, not otherwise specified (HCC) Bleeding hemorrhoids documented in this encounter Care Teams Registered Nurses Relationship Specialty Start Date End Date Sahra Son MD [address] [address] PCP - General Internal Medicine 10/28/22 documented as of this encounter
--- OUTSIDE RECORDS SUMMARY | 2025-04-05 11:32 | XMS_ITS | Encounter Summary ---
Author Organization [facility] Address [address] [place] [address] Phone Care Team Providers Care Metal Coater Operator Name Role Phone Sahra Son MD Primary Care Provider + Encounter Details Date Type Department Care Team (Late Contact Info) Description 07/16/2023 Documentation Only [facility] [address] [place] [address] India Davalos [address] [place] [address] Social History Tobacco Use Types [...] [facility] [address] [place] [address] Barry Reyes MD [address] [place] [address] [place] [address] documented as of this encounter Visit Diagnoses Not on filedocumented in this encounter Care Teams Metal Coater Operator Relationship Specialty Start Date End Date Sahra Son MD [address] [address] PCP - General Internal Medicine 10/28/22 documented as of this encounter
--- OUTSIDE RECORDS SUMMARY | 2025-04-05 11:32 | XMS_ITS | Encounter Summary ---
Author Organization [facility] Address [address] [place] [address] Phone Care Team Providers Care Secret Service Agent Name Role Phone Sahra Son MD Primary Care Provider + Encounter Details Date Type Department Care Team ([facility] Contact Info) Description 08/05/2023 Documentation Only [facility] [address] [place] [address] India Davalos [address] [place], [place] [...] [facility] [address] [place] [address] Barry Reyes MD [address] [place] [address] [place] [address] documented as of this encounter Visit Diagnoses Not on filedocumented in this encounter Care Teams Secret Service Agent Relationship Specialty Start Date End Date Sahra Son MD [address] [address] PCP - General Internal Medicine 10/28/22 documented as of this encounter
--- OUTSIDE RECORDS SUMMARY | 2025-04-05 11:32 | XMS_ITS | Encounter Summary ---
Author Organization [facility] Address [address] [place] [address] Phone Care Team Providers Care Crystal Inspector Name Role Phone Sahra Son MD Primary Care Provider + Encounter Details Date Type Department Care Team ([facility] Contact Info) Description 10/07/2021 Documentation Only [facility] [address] [place] [address] India Davalos [address] [place] [address] Social History Tobacco Use [...] Encounters Date Type Department Care Team ([facility] Contact Info) Description 06/05/2025 2:50 PM EST Office Visit [facility] [address] [place] [address] Barry Reyes MD [address] [place] [address] [place] [address] documented as of this encounter Visit Diagnoses Not on filedocumented in this encounter Care Teams Crystal Inspector Relationship Specialty Start Date End Date Sahra Son MD NPI: [id number] [place] [address] PCP - General Internal Medicine 10/28/22 documented as of this encounter
--- OUTSIDE RECORDS SUMMARY | 2025-04-05 11:32 | XMS_ITS | Encounter Summary ---
Author Organization [facility] Address [address] [place] [address] Phone Care Team Providers Care Dukey Rider Name Role Phone Sahra Son MD Primary Care Provider + Encounter Details Date Type Department Care Team ([facility] Contact Info) Description 06/09/2023 Documentation Only [facility] [address] [place] [address] India Davalos [address] [place] [address] Social History Tobacco Use Types [...] [facility] [address] [place] [address] Barry Reyes MD [address] [place] [address] [place] [address] documented as of this encounter Visit Diagnoses Not on filedocumented in this encounter Care Teams Dukey Rider Relationship Specialty Start Date End Date Sahra Son MD [address] [address] PCP - General Internal Medicine 10/28/22 documented as of this encounter
--- OUTSIDE RECORDS SUMMARY | 2025-04-05 11:32 | XMS_ITS | Encounter Summary ---
Author Organization [facility] Address [address] [place] [address] Phone Care Team Providers Care Marketing Assistant Retail Division Name Role Phone Sahra Son MD Primary Care Provider + Encounter Details Date Type Department Care Team ([facility] Contact Info) Description 03/11/2023 Documentation Only [facility] [address] [place] [address] India Davalos [address] [place], [place] [...] Encounters Date Type Department Care Team ([facility] Contact Info) Description 06/05/2025 2:50 PM EST Office Visit [facility] [address] [place] [address] Barry Reyes MD [address] [place] [address] [place] [address] documented as of this encounter Visit Diagnoses Not on filedocumented in this encounter Care Teams Marketing Assistant Retail Division Relationship Specialty Start Date End Date Sahra Son MD [address] [address] PCP - General Internal Medicine 10/28/22 documented as of this encounter
--- OUTSIDE RECORDS SUMMARY | 2025-04-05 11:32 | XMS_ITS | Encounter Summary ---
Author Organization [facility] Address [address] [place] [address] Phone Care Team Providers Care Senior Accounting Associate Name Role Phone Sahra Son MD Primary Care Provider + Encounter Details Date Type Department Care Team (Late Contact Info) Description 09/15/2024 Orders Only [facility] [address] [place] [address] India Davalos [address] [place] [address] Chronic kidney disease, stage 2 [...] [facility] [address] [place] [address] Barry Reyes MD [address] [place] [address] [place] [address] documented as of this encounter Visit Diagnoses Diagnosis Chronic kidney disease, stage 2 (mild) Anemia in chronic kidney disease Iron deficiency anemia, not otherwise specified documented in this encounter Care Teams Senior Accounting Associate Relationship Specialty Start Date End Date Sahra Son MD [address] [place] [address] PCP - General Internal Medicine 10/28/22 documented as of this encounter
--- OUTSIDE RECORDS SUMMARY | 2025-04-05 11:32 | XMS_ITS | Encounter Summary ---
Author Organization [facility] Address [address] [place] [address] Phone Care Team Providers Care Fundraising Coordinator Name Role Phone Sahra Son MD Primary Care Provider + Encounter Details Date Type Department Care Team (Late Contact Info) Description 07/16/2023 Documentation Only [facility] [address] [place] [address] India Davalos [address] [place] [address] Social History Tobacco Use Types [...] [facility] [address] [place] [address] Barry Reyes MD [address] [place] [address] [place] [address] documented as of this encounter Visit Diagnoses Not on filedocumented in this encounter Care Teams Fundraising Coordinator Relationship Specialty Start Date End Date Sahra Son MD [address] [address] PCP - General Internal Medicine 10/28/22 documented as of this encounter
--- OUTSIDE RECORDS SUMMARY | 2025-04-05 11:33 | XMS_ITS | Encounter Summary ---
Author Organization [facility] Address [address] [place] [address] Phone Care Team Providers Care Therapeutic Strategy Lead Name Role Phone Sahra Son MD Primary Care Provider + Encounter Details Date Type Department Care Team ([facility] Contact Info) Description 12/18/2024 Documentation Only [facility] [address] [place] [address] India Davalos [address] [place] [address] Social History Tobacco Use [...] [facility] [address] [place] [address] Barry Reyes MD [address] [place] [address] [place] [address] documented as of this encounter Visit Diagnoses Not on filedocumented in this encounter Care Teams Therapeutic Strategy Lead Relationship Specialty Start Date End Date Sahra Son MD [address] [address] PCP - General Internal Medicine 10/28/22 documented as of this encounter
--- OUTSIDE RECORDS SUMMARY | 2025-04-05 11:33 | XMS_ITS | Encounter Summary ---
Author Organization [facility] Address [address] [place] [address] Phone Care Team Providers Care Bilingual Account Manager Name Role Phone Sahra Son MD Primary Care Provider + Encounter Details Date Type Department Care Team ([facility] Contact Info) Description 06/25/2021 Documentation Only [facility] [address] [place] [address] India Davalos [address] [place] [address] Social History Tobacco Use Types [...] [facility] [address] [place] [address] Barry Reyes MD [address] [place] [address] [place] [address] documented as of this encounter Visit Diagnoses Not on filedocumented in this encounter Care Teams Bilingual Account Manager Relationship Specialty Start Date End Date Sahra Son MD [address] [address] PCP - General Internal Medicine 10/28/22 documented as of this encounter
--- OUTSIDE RECORDS SUMMARY | 2025-04-05 11:33 | XMS_ITS | Encounter Summary ---
Author Organization [facility] Address [address] [place] [address] Encounters * CPT with [facility] at [facility] on 2025-03-12 Patient reporting 1 day history [...] which she missed due to the symptoms. [facility] reaches out to [facility] and explains above mentioned. [facility] orders and ekg and an istat bmp. Both are obtained and results uploaded and discussed. A 20g IV is started in the r ac. ekg and labs are non diagnostic other then a high glucose which pt will treat withher own insulin. [facility] advises pt stop taking the depakote and [...] seen in the emergency room. PT understands. [facility] clear. [facility] confirmed with pt. IV_(FLUIDS_AND/OR_MEDICATION), EKG, POC_BLOODWORK, URINE_DIPSTICK, ORTHOSTATIC_VITAL_SIGNS, PO_MEDICATION Written by [facility] on 2025-03-12
--- OUTSIDE RECORDS SUMMARY | 2025-04-05 11:33 | XMS_ITS | Encounter Summary ---
Author Organization [facility] Address [address] [place] [address] Phone Care Team Providers Care Theater Manager Name Role Phone Sahra Son MD Primary Care Provider + Encounter Details Date Type Department Care Team ([facility] Contact Info) Description 01/29/2023 Documentation Only [facility] [address] [place] [address] India Davalos [address] [place] [address] Social History Tobacco Use Types [...] [facility] [address] [place] [address] Barry Reyes MD [address] [place] [address] [place] [address] documented as of this encounter Visit Diagnoses Not on filedocumented in this encounter Care Teams Theater Manager Relationship Specialty Start Date End Date Sahra Son MD [address] [address] PCP - General Internal Medicine 10/28/22 documented as of this encounter
--- OUTSIDE RECORDS SUMMARY | 2025-04-05 11:33 | XMS_ITS | Encounter Summary ---
Author Organization [facility] Address [address] [place] [address] Phone Care Team Providers Care Shipfitters Supervisor Name Role Phone Sahra Son MD Primary Care Provider + Encounter Details Date Type Department Care Team ([facility] Contact Info) Description 07/03/2021 Documentation Only [facility] [address] [place] [address] Juan Jose Li MD [address] [place] [address] [place] [address] Social History Tobacco Use Types [...] [facility] [address] [place] [address] Barry Reyes MD [address] [facility] [place] [address] documented as of this encounter Visit Diagnoses Not on filedocumented in this encounter Care Teams Shipfitters Supervisor Relationship Specialty Start Date End Date Sahra Son MD [address] [address] PCP - General Internal Medicine 10/28/22 documented as of this encounter
--- OUTSIDE RECORDS SUMMARY | 2025-04-05 11:33 | XMS_ITS | Encounter Summary ---
Author Organization [facility] Address [address] [place] [address] Phone Care Team Providers Care Outboard Motors Experimental Mechanic Name Role Phone Sahra Son MD Primary Care Provider + Encounter Details Date Type Department Care Team ([facility] Contact Info) Description 02/01/2023 Documentation Only [facility] [address] [place] [address] India Davalos [address] [place], [place] [...] Services Of [address] [place] [address] Barry Reyes MD [address] [place] [address] [place] [address] documented as of this encounter Visit Diagnoses Not on filedocumented in this encounter Care Teams Outboard Motors Experimental Mechanic Relationship Specialty Start Date End Date Sahra Son MD [address] [address] PCP - General Internal Medicine 10/28/22 documented as of this encounter
--- OUTSIDE RECORDS SUMMARY | 2025-04-05 11:34 | XMS_ITS | Encounter Summary ---
Author Organization [facility] Address [address] [place] [address] Phone Care Team Providers Care Telephone Maintenance Mechanic Name Role Phone Sahra Son MD Primary Care Provider + Encounter Details Date Type Department Care Team ([facility] Contact Info) Description 10/26/2022 Documentation Only [facility] [address] [place] [address] India Davalos [address] [place] [address] Social History Tobacco Use Types [...] [facility] [address] [place] [address] Barry Reyes MD [address] [place] [address] [place] [address] documented as of this encounter Visit Diagnoses Not on filedocumented in this encounter Care Teams Telephone Maintenance Mechanic Relationship Specialty Start Date End Date Sahra Son MD [address] [address] PCP - General Internal Medicine 10/28/22 documented as of this encounter
--- OUTSIDE RECORDS SUMMARY | 2025-04-05 11:34 | XMS_ITS | Encounter Summary ---
Author Organization [facility] Address [address] [place] [address] Phone Care Team Providers Care Respiratory Care Specialist Name Role Phone Sahra Son MD Primary Care Provider + Encounter Details Date Type Department Care Team (Late Contact Info) Description 04/28/2024 Orders Only [facility] [address] [place] [address] India Davalos [address] [place] [address] Chronic kidney disease, stage 2 [...] Visit [facility] [address] [place] [address] Barry Reyes MD [address] [place] [address] [place] [address] documented as of this encounter [...] Glucose 153(H) 70 - 99 mg/dL [facility] BUN 17 8 - 27 mg/dL [facility] Creatinine 0.98 0.57 - 1.00 mg/dL [facility] eGFR CKD-EPI CR 2020 64 >59 mL/min/1.7 3 [facility] BUN/Creatinine Ratio 17 12 - 28 [facility] Sodium 142 134 - 144 mmol/L [facility] Potassium 5.0 3.5 - 5.2 mmol/L [facility] Chloride 106 96 - 106 mmol/L [facility] Bicarbonate (CO2) 23 20 - 29 mmol/L [facility] Calcium 8.9 8.7 - 10.3 mg/dL [facility] Albumin 3.9 3.9 - 4.9 g/dL [facility] Phosphorus 3.9 3.0 - 4.3 mg/dL [facility] Blood specimen (specimen) Venous blood / Unknown 05/05/2024 9:18 AM EST 05/05/2024 Barry Reyes MD LAB BLOOD ORDERABLES Final Re sult Performing Organization Address City/[facility]/ZIP Co de Phone Number [facility] [address] [place] [address] * (ABNORMAL) Ferritin (05/05/2024 9:18 AM EST) Ferritin 282(H) 15 - 150 ng/mL [facility] Blood specimen (specimen) Venous blood / Unknown 05/05/2024 9:18 AM EST 05/05/2024 Barry Reyes MD LAB BLOOD ORDERABLES Final Re sult Performing Organization Address [facility] de Phone Number [facility] [address] [place] [address] * Iron Panel (Fe, TIBC, TSAT) (05/05/2024 9:18 AM EST) TIBC 277 250 - 450 ug/dL [facility] UIBC 210 118 - 369 ug/dL [facility] Iron 67 27 - 139 ug/dL [facility] Iron Saturation (TSat) 24 15 - 55 % [facility] Blood specimen (specimen) Venous blood / Unknown 05/05/2024 9:18 AM EST 05/05/2024 Barry Reyes MD LAB BLOOD ORDERABLES Final Re sult Performing Organization Address City/[facility]/ZIP Co de Phone Number [facility] [address] [place] [address] * (ABNORMAL) CBC and Differential (05/05/2024 9:18 AM EST) WBC 5.6 3.4 - 10.8 x10E3/uL [facility] RBC 5.33(H) 3.77 - 5.28 x10E6/uL [facility] Hemoglobin 10.2(L) 11.1 - 15.9 g/dL [facility] Hematocrit 35.0 34.0 - 46.6 % [facility] MCV 66(L) 79 - 97 fL [facility] MCH 19.1(L) 26.6 - 33.0 pg [facility] MCHC 29.1(L) 31.5 - 35.7 g/dL [facility] RDW 20.1(H) 11.7 - 15.4 % [facility] Platelets 163 150 - 450 x10E3/uL [facility] Neutrophils Relative 64 Not Estab. % [facility] Lymphocytes Relative 26 Not Estab. % [facility] Monocytes 6 Not Estab. % [facility] Eosinophils Relative 3 Not Estab. % [facility] Basophils Relative 1 Not Estab. % [facility] Neutrophils Absolute 3.6 1.4 - 7.0 x10E3/uL [facility] Lymphocytes Absolute 1.5 0.7 - 3.1 x10E3/uL [facility] Monocytes Absolute 0.3 0.1 - 0.9 x10E3/uL [facility] Eosinophils Absolute 0.2 0.0 - 0.4 x10E3/uL [facility] Basophils Absolute 0.0 0.0 - 0.2 x10E3/uL [facility] Immature Granulocytes 0 Not Estab. % [facility] Immature Grans (Absolute) 0.0 0.0 - 0.1 x10E3/uL [facility] Blood specimen (specimen) Venous blood / Unknown 05/05/2024 9:18 AM EST 05/05/2024 us Barry Reyes MD LAB BLOOD ORDERABLES Final Re sult [facility] [address] [place] [address] documented in this encounter Visit Diagnoses Diagnosis Chronic kidney disease, stage 2 (mild) Anemia in chronic kidney disease Iron deficiency anemia, not otherwise specified documented in this encounter Care Teams Respiratory Care Specialist Relationship Specialty Start Date End Date Sahra Son MD [address] [place] [address] PCP - General Internal Medicine 10/28/22 documented as of this encounter
--- OUTSIDE RECORDS SUMMARY | 2025-04-05 11:34 | XMS_ITS | Encounter Summary ---
Author Organization [facility] Address [address] [place] [address] Phone Care Team Providers Care Spoke Maker Name Role Phone Sahra Son MD Primary Care Provider + Encounter Details Date Type Department Care Team (Late Contact Info) Description 05/26/2024 Orders Only [facility] [address] [place] [address] India Davalos [address] [place] [address] Chronic kidney disease, stage 2 [...] Visit [facility] [address] [place] [address] Barry Reyes MD [address] [place] [address] [place] [address] documented as of this [...] Glucose 168(H) 70 - 99 mg/dL [facility] BUN 17 8 - 27 mg/dL [facility] Creatinine 1.09(H) 0.57 - 1.00 mg/dL [facility] eGFR CKD-EPI CR 2020 57(L) >59 mL/min/1.7 3 [facility] BUN/Creatinine Ratio 16 12 - 28 [facility] Sodium 137 134 - 144 mmol/L [facility] Potassium 4.8 3.5 - 5.2 mmol/L [facility] Chloride 99 96 - 106 mmol/L [facility] Bicarbonate (CO2) 23 20 - 29 mmol/L [facility] Calcium 9.0 8.7 - 10.3 mg/dL [facility] Albumin 4.2 3.9 - 4.9 g/dL [facility] Phosphorus 4.4(H) 3.0 - 4.3 mg/dL [facility] Blood specimen (specimen) Venous blood / Unknown 06/07/2024 11:53 AM EST 06/07/2024 Barry Reyes MD LAB BLOOD ORDERABLES Final Re sult Performing Organization Address City/[facility]/ZIP Co de Phone Number [facility] [address] [place] [address] * Ferritin (06/07/2024 11:53 AM EST) Ferritin 102 15 - 150 ng/mL [facility] Blood specimen (specimen) Venous blood / Unknown 06/07/2024 11:53 AM EST 06/07/2024 Barry Reyes MD LAB BLOOD ORDERABLES Final Re sult Performing Organization Address [facility] de Phone Number [facility] [address] [place] [address] * Iron Panel (Fe, TIBC, TSAT) (06/07/2024 11:53 AM EST) TIBC 262 250 - 450 ug/dL [facility] UIBC 205 118 - 369 ug/dL [facility] Iron 57 27 - 139 ug/dL [facility] Iron Saturation (TSat) 22 15 - 55 % [facility] Blood specimen (specimen) Venous blood / Unknown 06/07/2024 11:53 AM EST 06/07/2024 Barry Reyes MD LAB BLOOD ORDERABLES Final Re sult Performing Organization Address City/[facility]/ZIP Co de Phone Number [facility] [address] [place] [address] * (ABNORMAL) CBC and Differential (06/07/2024 11:53 AM EST) [facility] WBC 5.5 3.4 - 10.8 x10E3/uL [facility] RBC 5.76(H) 3.77 - 5.28 x10E6/uL [facility] Hemoglobin 11.1 11.1 - 15.9 g/dL [facility] Hematocrit 38.4 34.0 - 46.6 % [facility] MCV 67(L) 79 - 97 fL [facility] MCH 19.3(L) 26.6 - 33.0 pg [facility] MCHC 28.9(L) 31.5 - 35.7 g/dL [facility] RDW 18.8(H) 11.7 - 15.4 % [facility] Platelets 162 150 - 450 x10E3/uL [facility] Neutrophils Relative 59 Not Estab. % [facility] Lymphocytes Relative 31 Not Estab. % [facility] Monocytes 6 Not Estab. % [facility] Eosinophils Relative 2 Not Estab. % [facility] Basophils Relative 1 Not Estab. % [facility] Neutrophils Absolute 3.3 1.4 - 7.0 x10E3/uL [facility] Lymphocytes Absolute 1.7 0.7 - 3.1 x10E3/uL [facility] Monocytes Absolute 0.3 0.1 - 0.9 x10E3/uL [facility] Eosinophils Absolute 0.1 0.0 - 0.4 x10E3/uL [facility] Basophils Absolute 0.0 0.0 - 0.2 x10E3/uL [facility] Immature Granulocytes 1 Not Estab. % [facility] Immature Grans (Absolute) 0.0 0.0 - 0.1 x10E3/uL [facility] Blood specimen (specimen) Venous blood / Unknown 06/07/2024 11:53 AM EST 06/07/2024 us Barry Reyes MD LAB BLOOD ORDERABLES Final Re sult [facility] [address] [place] [address] documented in this encounter Visit Diagnoses Diagnosis Chronic kidney disease, stage 2 (mild) Anemia in chronic kidney disease Iron deficiency anemia, not otherwise specified documented in this encounter Care Teams Spoke Maker Relationship Specialty Start Date End Date Sahra Son MD [address] [place] [address] PCP - General Internal Medicine 10/28/22 documented as of this encounter
--- OUTSIDE RECORDS SUMMARY | 2025-04-05 11:34 | XMS_ITS | Encounter Summary ---
Author Organization [facility] Address [address] [place] [address] Phone Care Team Providers Care Soap Grinder Name Role Phone Sahra Son MD Primary Care Provider + Encounter Details Date Type Department Care Team (Late Contact Info) Description 02/16/2025 Orders Only [facility] [address] [place] [address] India Davalos [address] [place] [address] Anemia in chronic kidney disease; [...] Services Of [facility] [address] [place] [address] Barry Reyes MD [address] [place] [address] [place] [address] documented as of this encounter [...] Glucose 318(H) 70 - 99 mg/dL [facility] BUN 14 8 - 27 mg/dL [facility] Creatinine 1.01(H) 0.57 - 1.00 mg/dL [facility] eGFR CKD-EPI CR 2020 62 >59 mL/min/1.7 3 [facility] BUN/Creatinine Ratio 14 12 - 28 [facility] Sodium 137 134 - 144 mmol/L [facility] Potassium 4.8 3.5 - 5.2 mmol/L [facility] Chloride 99 96 - 106 mmol/L [facility] Bicarbonate (CO2) 22 20 - 29 mmol/L [facility] Calcium 9.3 8.7 - 10.3 mg/dL [facility] Albumin 4.2 3.9 - 4.9 g/dL [facility] Phosphorus 3.9 3.0 - 4.3 mg/dL [facility] Blood specimen (specimen) Venous blood / Unknown 02/19/2025 9:33 AM EDT 02/19/2025 us Barry Reyes MD LAB BLOOD ORDERABLES Final Re sult Performing Organization Address City/[facility]/ZIP Co de Phone Number [facility] [address] [place] [address] * (ABNORMAL) Ferritin (02/19/2025 9:33 AM EDT) Ferritin 156(H) 15 - 150 ng/mL [facility] Blood specimen (specimen) Venous blood / Unknown 02/19/2025 9:33 AM EDT 02/19/2025 Barry Reyes MD LAB BLOOD ORDERABLES Final Re sult Performing Organization Address [facility] de Phone Number [facility] [address] [place] [address] * Iron Panel (Fe, TIBC, TSAT) (02/19/2025 9:33 AM EDT) TIBC 263 250 - 450 ug/dL [facility] UIBC 219 118 - 369 ug/dL [facility] Iron 44 27 - 139 ug/dL [facility] Iron Saturation (TSat) 17 15 - 55 % [facility] Blood specimen (specimen) Venous blood / Unknown 02/19/2025 9:33 AM EDT 02/19/2025 us Barry Reyes MD LAB BLOOD ORDERABLES Final Re sult Performing Organization Address City/[facility]/ZIP Co de Phone Number [facility] [address] [place] [address] * (ABNORMAL) CBC and Differential (02/19/2025 9:33 AM EDT) [facility] WBC 8.3 3.4 - 10.8 x10E3/uL [facility] RBC 5.45(H) 3.77 - 5.28 x10E6/uL [facility] Hemoglobin 11.2 11.1 - 15.9 g/dL [facility] Hematocrit 38.3 34.0 - 46.6 % [facility] MCV 70(L) 79 - 97 fL [facility] MCH 20.6(L) 26.6 - 33.0 pg [facility] MCHC 29.2(L) 31.5 - 35.7 g/dL [facility] RDW 18.0(H) 11.7 - 15.4 % [facility] Platelets 217 150 - 450 x10E3/uL [facility] Neutrophils Relative 73 Not Estab. % [facility] Lymphocytes Relative 18 Not Estab. % [facility] Monocytes 5 Not Estab. % [facility] Eosinophils Relative 2 Not Estab. % [facility] Basophils Relative 1 Not Estab. % [facility] Neutrophils Absolute 6.2 1.4 - 7.0 x10E3/uL [facility] Lymphocytes Absolute 1.5 0.7 - 3.1 x10E3/uL [facility] Monocytes Absolute 0.4 0.1 - 0.9 x10E3/uL [facility] Eosinophils Absolute 0.1 0.0 - 0.4 x10E3/uL [facility] Basophils Absolute 0.1 0.0 - 0.2 x10E3/uL [facility] Immature Granulocytes 0 Not Estab. % [facility] Immature Grans (Absolute) 0.0 0.0 - 0.1 x10E3/uL [facility] Blood specimen (specimen) Venous blood / Unknown 02/19/2025 9:33 AM EDT 02/19/2025 us Barry Reyes MD LAB BLOOD ORDERABLES Final Re sult [facility] [address] [place] [address] documented in this encounter Visit Diagnoses Diagnosis Anemia in chronic kidney disease Other iron deficiency anemia Chronic kidney disease, stage 2 (mild) documented in this encounter Care Teams Soap Grinder Relationship Specialty [place] [address] [place] [id number] PCP - General Internal Medicine 10/28/22 documented as of this encounter
--- OUTSIDE RECORDS SUMMARY | 2025-04-05 11:34 | XMS_ITS | Encounter Summary ---
Author Organization [facility] Address [address] [place] [address] Phone Care Team Providers Care Senior Project Architect Name Role Phone Sahra Son MD Primary Care Provider + Encounter Details Date Type Department Care Team (Late Contact Info) Description 03/31/2024 Orders Only [facility] [address] [place] [address] India Davalos [address] [place] [address] Chronic kidney disease, stage 2 [...] Visit [facility] [address] [place] [address] Barry Reyes MD [address] [place] [address] [place] [address] documented as of this encounter Visit Diagnoses Diagnosis Chronic kidney disease, stage 2 (mild) Anemia in chronic kidney disease Iron deficiency anemia, not otherwise specified documented in this encounter Care Teams Senior Project Architect Relationship Specialty Start Date End Date Sahra Son MD [address] [place] [address] PCP - General Internal Medicine 10/28/22 documented as of this encounter
--- OUTSIDE RECORDS SUMMARY | 2025-04-05 11:34 | XMS_ITS | Encounter Summary ---
Author Organization [facility] Address [address] [place] [address] Phone Care Team Providers Care Hand Booked Folder And Stitcher Name Role Phone Sahra Son MD Primary Care Provider + Encounter Details Date Type Department Care Team ([facility] Contact Info) Description 10/30/2022 Documentation Only [facility] [address] [place] [address] India Davalos [address] [place] [address] Social History Tobacco Use [...] [facility] [address] [place] [address] Barry Reyes MD [address] [place] [address] [place] [address] documented as of this encounter Visit Diagnoses Not on filedocumented in this encounter Care Teams Hand Booked Folder And Stitcher Relationship Specialty Start Date End Date Sahra Son MD [address] [address] PCP - General Internal Medicine 10/28/22 documented as of this encounter
--- OUTSIDE RECORDS SUMMARY | 2025-04-05 11:34 | XMS_ITS | Encounter Summary ---
Author Organization [facility] Address [address] [place] [address] Phone Care Team Providers Care Welder Name Role Phone Sahra Son MD Primary Care Provider + Encounter Details Date Type Department Care Team (Late Contact Info) Description 08/04/2024 Orders Only [facility] [address] [place] [address] India Davalos [address] [place] [address] Anemia in chronic kidney disease; [...] Visit [facility] [address] [place] [address] Barry Reyes MD [address] [place] [address] [place] [address] documented as of this encounter [...] Glucose 168(H) 70 - 99 mg/dL [facility] BUN 15 8 - 27 mg/dL [facility] Creatinine 0.93 0.57 - 1.00 mg/dL [facility] eGFR CKD-EPI CR 2020 69 >59 mL/min/1.7 3 [facility] BUN/Creatinine Ratio 16 12 - 28 [facility] Sodium 139 134 - 144 mmol/L [facility] Chloride 103 96 - 106 mmol/L [facility] Bicarbonate (CO2) 24 20 - 29 mmol/L [facility] Calcium 8.8 8.7 - 10.3 mg/dL [facility] Phosphorus 3.8 3.0 - 4.3 mg/dL [facility] Albumin 4.1 3.9 - 4.9 g/dL [facility] Potassium 4.8 3.5 - 5.2 mmol/L [facility] Blood specimen (specimen) Venous blood / Unknown 08/07/2024 8:15 AM EDT 08/07/2024 Barry Reyes MD LAB BLOOD ORDERABLES Final Re sult Performing Organization Address City/[facility]/ZIP Co de Phone Number [facility] [address] [place] [address] * Ferritin (08/07/2024 8:15 AM EDT) Ferritin 55 15 - 150 ng/mL [facility] Blood specimen (specimen) Venous blood / Unknown 08/07/2024 8:15 AM EDT 08/07/2024 Barry Reyes MD LAB BLOOD ORDERABLES Final Re sult Performing Organization Address [facility] de Phone Number [facility] [address] [place] [address] * (ABNORMAL) Iron Panel (Fe, TIBC, TSAT) (08/07/2024 8:15 AM EDT) [facility] TIBC 290 250 - 450 ug/dL [facility] UIBC 251 118 - 369 ug/dL [facility] Iron 39 27 - 139 ug/dL [facility] Iron Saturation (TSat) 13(L) 15 - 55 % [facility] Blood specimen (specimen) Venous blood / Unknown 08/07/2024 8:15 AM EDT 08/07/2024 Barry Reyes MD LAB BLOOD ORDERABLES Final Re sult Performing Organization Address City/[facility]/ZIP Co de [facility] [address] [place] [address] * (ABNORMAL) CBC and Differential (08/07/2024 8:15 AM EDT) [facility] WBC 5.6 3.4 - 10.8 x10E3/uL [facility] RBC 5.41(H) 3.77 - 5.28 x10E6/uL [facility] Hemoglobin 10.7(L) 11.1 - 15.9 g/dL [facility] Hematocrit 36.1 34.0 - 46.6 % [facility] MCV 67(L) 79 - 97 fL [facility] MCH 19.8(L) 26.6 - 33.0 pg [facility] MCHC 29.6(L) 31.5 - 35.7 g/dL [facility] RDW 18.9(H) 11.7 - 15.4 % [facility] Platelets 171 150 - 450 x10E3/uL [facility] Neutrophils Relative 65 Not Estab. % [facility] Lymphocytes Relative 25 Not Estab. % [facility] Monocytes 6 Not Estab. % [facility] Eosinophils Relative 3 Not Estab. % [facility] Basophils Relative 1 Not Estab. % [facility] Neutrophils Absolute 3.6 1.4 - 7.0 x10E3/uL [facility] Lymphocytes Absolute 1.4 0.7 - 3.1 x10E3/uL [facility] Monocytes Absolute 0.4 0.1 - 0.9 x10E3/uL [facility] Eosinophils Absolute 0.2 0.0 - 0.4 x10E3/uL [facility] Basophils Absolute 0.0 0.0 - 0.2 x10E3/uL [facility] Immature Granulocytes 0 Not Estab. % [facility] Immature Grans (Absolute) 0.0 0.0 - 0.1 x10E3/uL [facility] Blood specimen (specimen) Venous blood / Unknown 08/07/2024 8:15 AM EDT 08/07/2024 us Barry Reyes MD LAB BLOOD ORDERABLES Final Re sult [facility] [address] [place] [address] documented in this encounter Visit Diagnoses Diagnosis Anemia in chronic kidney disease Other iron deficiency anemia Chronic kidney disease, stage 2 (mild) documented in this encounter Care Teams Welder Relationship Specialty [place] [address] [place] [address] PCP - General Internal Medicine 10/28/22 documented as of this encounter
--- OUTSIDE RECORDS SUMMARY | 2025-04-05 11:34 | XMS_ITS | Encounter Summary ---
Author Organization [facility] Address [address] [place] [address] Phone Care Team Providers Care Chemists Name Role Phone Sahra Son MD Primary Care Provider + Encounter Details Date Type Department Care Team (Late Contact Info) Description 10/27/2024 Orders Only [facility] [address] [place] [address] India Davalos [address] [place] [address] Anemia in chronic kidney disease; [...] Visit [facility] [address] [place] [address] Barry Reyes MD [address] [place] [address] [place] [address] documented as of this encounter [...] Glucose 238(H) 70 - 99 mg/dL [facility] BUN 15 8 - 27 mg/dL [facility] Creatinine 0.96 0.57 - 1.00 mg/dL [facility] eGFR CKD-EPI CR 2020 66 >59 mL/min/1.7 3 [facility] BUN/Creatinine Ratio 16 12 - 28 [facility] Sodium 137 134 - 144 mmol/L [facility] Potassium 4.7 3.5 - 5.2 mmol/L [facility] Chloride 100 96 - 106 mmol/L [facility] Bicarbonate (CO2) 20 20 - 29 mmol/L [facility] Calcium 9.0 8.7 - 10.3 mg/dL [facility] Albumin 4.3 3.9 - 4.9 g/dL [facility] Phosphorus 2.8(L) 3.0 - 4.3 mg/dL [facility] Blood specimen (specimen) Venous blood / Unknown 11/01/2024 8:45 AM EDT 11/01/2024 Barry Reyes MD LAB BLOOD ORDERABLES Final Re sult [facility] [address] [place] [address] * (ABNORMAL) Ferritin (11/01/2024 8:45 AM EDT) Ferritin 480(H) 15 - 150 ng/mL [facility] Blood specimen (specimen) Venous blood / Unknown 11/01/2024 8:45 AM EDT 11/01/2024 Barry Reyes MD LAB BLOOD ORDERABLES Final Re sult Performing Organization Address [facility] Co de Phone Number [facility] [address] [place] [address] * (ABNORMAL) Iron Panel (Fe, TIBC, TSAT) (11/01/2024 8:45 AM EDT) TIBC 238(L) 250 - 450 ug/dL [facility] UIBC 168 118 - 369 ug/dL [facility] Iron 70 27 - 139 ug/dL [facility] Iron Saturation (TSat) 29 15 - 55 % [facility] Blood specimen (specimen) Venous blood / Unknown 11/01/2024 8:45 AM EDT 11/01/2024 Barry Reyes MD LAB BLOOD ORDERABLES Final Re sult [facility] [address] [place] [address] * (ABNORMAL) CBC and Differential (11/01/2024 8:45 AM EDT) [facility] WBC 6.6 3.4 - 10.8 x10E3/uL [facility] RBC 5.45(H) 3.77 - 5.28 x10E6/uL [facility] Hemoglobin 11.2 11.1 - 15.9 g/dL [facility] Hematocrit 38.3 34.0 - 46.6 % [facility] MCV 70(L) 79 - 97 fL [facility] MCH 20.6(L) 26.6 - 33.0 pg [facility] MCHC 29.2(L) 31.5 - 35.7 g/dL [facility] RDW 18.8(H) 11.7 - 15.4 % [facility] Platelets 175 150 - 450 x10E3/uL [facility] Neutrophils Relative 71 Not Estab. % [facility] Lymphocytes Relative 20 Not Estab. % [facility] Monocytes 6 Not Estab. % [facility] Eosinophils Relative 1 Not Estab. % [facility] Basophils Relative 1 Not Estab. % [facility] Neutrophils Absolute 4.7 1.4 - 7.0 x10E3/uL [facility] Lymphocytes Absolute 1.3 0.7 - 3.1 x10E3/uL [facility] Monocytes Absolute 0.4 0.1 - 0.9 x10E3/uL [facility] Eosinophils Absolute 0.1 0.0 - 0.4 x10E3/uL [facility] Basophils Absolute 0.1 0.0 - 0.2 x10E3/uL [facility] Immature Granulocytes 1 Not Estab. % [facility] Immature Grans (Absolute) 0.0 0.0 - 0.1 x10E3/uL [facility] Blood specimen (specimen) Venous blood / Unknown 11/01/2024 8:45 AM EDT 11/01/2024 us Barry Reyes MD LAB BLOOD ORDERABLES Final Re sult [facility] [address] [place] [address] documented in this encounter Visit Diagnoses Diagnosis Anemia in chronic kidney disease Other iron deficiency anemia Chronic kidney disease, stage 2 (mild) documented in this encounter Care Teams Chemists Relationship Specialty Start Date End Date Sahra Son MD [address] [place] [address] PCP - General Internal Medicine 10/28/22 documented as of this encounter
--- OUTSIDE RECORDS SUMMARY | 2025-04-05 11:34 | XMS_ITS | Clinical Summary ---
Author Organization [facility], Address [address] [place] [address] [place] [address] Phone Care Team Providers Care Ssn/Ssbn Weapons Equipment Operator Name Role Phone Sahra Son MD Primary Care Provider + Allergies Active Allergy Reactions Criticality Noted Date Comments Codeine 12/26/2012 Ferumoxytol Shortness of breath,Itching,Other (see comments) High 02/27/2022 Bones hurt Iodinated Contrast Media 07/06/2022 Penicillins 12/26/2012 Other Shellfish Allergy 12/26/2012 Tramadol 07/06/2022 Trazodone 03/08/2018 Iron Sucrose 02/29/2024 Coughing fit infusion stopped at [facility] Medications Cymbalta [address] capsule TK 2 CS PO QAM 12/28/19 20 Active LORazepam (ATIVAN) 1 MG tablet TK 1 T PO BID 12/24/19 20 Active meclizine (ANTIVERT) 25 MG tablet TK 1 T PO TID PRN 12/24/19 20 Active montelukast (SINGULAIR) 10 MG tablet TK 1 T PO QD IN THE DARCY 11/19/19 20 Active Creon 67212-86251 units capsule TK ONE C PO TID [...] [facility] [address] [place] [address] Indai Davalos Anemia in chronic kidney disease; Other iron deficiency anemia; Chronic kidney disease, stage 2 (mild) 02/16/2025 Telephone [facility] [place] [address] [place] [address] Stephanie Azul, RN 02/16/2025 Orders Only [facility] [address] [place] [address] India Davalos Anemia in chronic kidney disease; Other iron deficiency anemia; Chronic kidney disease, stage 2 (mild) 02/09/2025 Telephone [facility] [address] [place] [address] Stephanie Azul, RN 01/19/2025 Orders Only [facility] [address] [place] [address] India Davalos Anemia in chronic kidney disease; Other iron deficiency anemia; Chronic kidney disease, stage 2 (mild) 01/10/2025 Telephone [facility] [address] [place] [address] Stephanie Azul, RN from Last 3 Months [...] Visit [facility] [place], [address] [place] [address] Barry Reyes MD [address] [facility] [place] [address] Health Maintenance Due Date Last Done [...] TIBC 263 250 - 450 ug/dL [facility] UIBC 219 118 - 369 ug/dL [facility] Iron 44 27 - 139 ug/dL [facility] Iron Saturation (TSat) 17 15 - 55 % [facility] Blood specimen (specimen) Venous blood / Unknown 02/19/2025 9:33 AM EDT 02/19/2025 us Barry Reyes MD LAB BLOOD ORDERABLES Final Re sult [facility] [address] [place] [address] * (ABNORMAL) CBC and Differential (02/19/2025 9:33 AM EDT) Pathologist [facility] WBC 8.3 3.4 - 10.8 x10E3/uL [facility] RBC 5.45(H) 3.77 - 5.28 x10E6/uL [facility] Hemoglobin 11.2 11.1 - 15.9 g/dL [facility] Hematocrit 38.3 34.0 - 46.6 % [facility] MCV 70(L) 79 - 97 fL [facility] MCH 20.6(L) 26.6 - 33.0 pg [facility] MCHC 29.2(L) 31.5 - 35.7 g/dL [facility] RDW 18.0(H) 11.7 - 15.4 % [facility] Platelets 217 150 - 450 x10E3/uL [facility] Neutrophils Relative 73 Not Estab. % [facility] Lymphocytes Relative 18 Not Estab. % [facility] Monocytes 5 Not Estab. % [facility] Eosinophils Relative 2 Not Estab. % [facility] Basophils Relative 1 Not Estab. % [facility] Neutrophils Absolute 6.2 1.4 - 7.0 x10E3/uL [facility] Lymphocytes Absolute 1.5 0.7 - 3.1 x10E3/uL [facility] Monocytes Absolute 0.4 0.1 - 0.9 x10E3/uL [facility] Eosinophils Absolute 0.1 0.0 - 0.4 x10E3/uL [facility] Basophils Absolute 0.1 0.0 - 0.2 x10E3/uL [facility] Immature Granulocytes 0 Not Estab. % [facility] Immature Grans (Absolute) 0.0 0.0 - 0.1 x10E3/uL [facility] Blood specimen (specimen) Venous blood / Unknown 02/19/2025 9:33 AM EDT 02/19/2025 Barry Reyes MD LAB BLOOD ORDERABLES Final Re sult [facility] [address] [place] [address] * (ABNORMAL) Ferritin (02/19/2025 9:33 AM EDT) Ferritin 156(H) 15 - 150 ng/mL [facility] Blood specimen (specimen) Venous blood / Unknown 02/19/2025 9:33 AM EDT 02/19/2025 Barry Reyes MD LAB BLOOD ORDERABLES Final Re sult [facility] [address] [place] [address] * (ABNORMAL) Renal Function Panel (02/19/2025 9:33 AM EDT) Glucose 318(H) 70 - 99 mg/dL [facility] BUN 14 8 - 27 mg/dL [facility] Creatinine 1.01(H) 0.57 - 1.00 mg/dL [facility] eGFR CKD-EPI CR 2020 62 >59 mL/min/1.7 3 [facility] BUN/Creatinine Ratio 14 12 - 28 [facility] Sodium 137 134 - 144 mmol/L [facility] Potassium 4.8 3.5 - 5.2 mmol/L [facility] Chloride 99 96 - 106 mmol/L [facility] Bicarbonate (CO2) 22 20 - 29 mmol/L [facility] Calcium 9.3 8.7 - 10.3 mg/dL [facility] Albumin 4.2 3.9 - 4.9 g/dL [facility] Phosphorus 3.9 3.0 - 4.3 mg/dL [facility] Blood specimen (specimen) Venous blood / Unknown 02/19/2025 9:33 AM EDT 02/19/2025 Barry Reyes MD LAB BLOOD ORDERABLES Final Re sult [facility] [address] [place] [address] * (ABNORMAL) Hemoglobin A1c (06/08/2023 8:36 AM EST) Hemoglobin A1C 7.2(H) (4.0-5.6) % [facility] Comment: MONITORING: In known diabetic patients, hemoglobin A1c targets should be discussed with health care provider. DIAGNOSTIC USE: The English Diabetes Association (ADA) and the World Health [...] Supplement 1 Testing performed or reported by [facility], a Service of [facility], [address] [place] [address] Luis A Bailey MD, Custom Feed Mill Operator [facility]# [id number] Blood specimen (specimen) Venous blood / Unknown 06/08/2023 8:36 AM EST 06/08/2023 8:38 AM EST us Arlene CARTER LAB BLOOD ORDERABLES Final Re sult [facility] from Last 3 Months or Most Recently Relevant to Health Maintenance Insurance [id number] One Care Dual SNP ([id number]) [place] [id number] Care Teams Ssn/Ssbn Weapons Equipment Operator Relationship Specialty Start Date End Date Sahra Son MD [address] [place] [address] PCP - General Internal Medicine 10/28/22
--- OUTSIDE RECORDS SUMMARY | 2025-04-05 11:34 | XMS_ITS | Encounter Summary ---
Author Organization [facility] Address [address] [place] [address] Phone Care Team Providers Care Fmd Teacher Name Role Phone Sahra Son MD Primary Care Provider + Encounter Details Date Type Department Care Team (Late Contact Info) Description 09/01/2024 Orders Only [facility] [address] [place] [address] India Davalos [address] [place] [address] Anemia in chronic kidney disease; [...] Services Of [facility] [address] [place] [address] Barry Reyes MD [address] [place] [address] [place] [address] documented as of this encounter [...] Glucose 233(H) 70 - 99 mg/dL [facility] BUN 15 8 - 27 mg/dL [facility] Creatinine 1.01(H) 0.57 - 1.00 mg/dL [facility] eGFR CKD-EPI CR 2020 62 >59 mL/min/1.7 3 [facility] BUN/Creatinine Ratio 15 12 - 28 [facility] Sodium 138 134 - 144 mmol/L [facility] Potassium 4.9 3.5 - 5.2 mmol/L [facility] Chloride 101 96 - 106 mmol/L [facility] Bicarbonate (CO2) 19(L) 20 - 29 mmol/L [facility] Calcium 9.1 8.7 - 10.3 mg/dL [facility] Albumin 4.2 3.9 - 4.9 g/dL [facility] Phosphorus 3.8 3.0 - 4.3 mg/dL [facility] Blood specimen (specimen) Venous blood / Unknown 09/06/2024 8:15 AM EDT 09/06/2024 Barry Reyes MD LAB BLOOD ORDERABLES Final Re sult Performing Organization Address City/[facility]/ZIP Co de Phone Number [facility] [address] [place] [address] * Ferritin (09/06/2024 8:15 AM EDT) Ferritin 37 15 - 150 ng/mL [facility] Blood specimen (specimen) Venous blood / Unknown 09/06/2024 8:15 AM EDT 09/06/2024 Barry Reyes MD LAB BLOOD ORDERABLES Final Re sult Performing Organization Address [facility]/RUST de Phone [facility] [address] [place] [address] * (ABNORMAL) Iron Panel (Fe, TIBC, TSAT) (09/06/2024 8:15 AM EDT) TIBC 323 250 - 450 ug/dL [facility] UIBC 286 118 - 369 ug/dL [facility] Iron 37 27 - 139 ug/dL [facility] Iron Saturation (TSat) 11(L) 15 - 55 % [facility] Blood specimen (specimen) Venous blood / Unknown 09/06/2024 8:15 AM EDT 09/06/2024 Barry Reyes MD LAB BLOOD ORDERABLES Final Re sult Performing Organization Address City/[facility]/ZIP Co de Phone Number [facility] [address] [place] [address] * (ABNORMAL) CBC and Differential (09/06/2024 8:15 AM EDT) WBC 6.3 3.4 - 10.8 x10E3/uL [facility] RBC 5.35(H) 3.77 - 5.28 x10E6/uL [facility] Hemoglobin 10.6(L) 11.1 - 15.9 g/dL [facility] Hematocrit 35.8 34.0 - 46.6 % [facility] MCV 67(L) 79 - 97 fL [facility] MCH 19.8(L) 26.6 - 33.0 pg [facility] MCHC 29.6(L) 31.5 - 35.7 g/dL [facility] RDW 18.4(H) 11.7 - 15.4 % [facility] Platelets 190 150 - 450 x10E3/uL [facility] Neutrophils Relative 67 Not Estab. % [facility] Lymphocytes Relative 22 Not Estab. % [facility] Monocytes 6 Not Estab. % [facility] Eosinophils Relative 3 Not Estab. % [facility] Basophils Relative 1 Not Estab. % [facility] Neutrophils Absolute 4.3 1.4 - 7.0 x10E3/uL [facility] Lymphocytes Absolute 1.4 0.7 - 3.1 x10E3/uL [facility] Monocytes Absolute 0.4 0.1 - 0.9 x10E3/uL [facility] Eosinophils Absolute 0.2 0.0 - 0.4 x10E3/uL [facility] Basophils Absolute 0.1 0.0 - 0.2 x10E3/uL [facility] Immature Granulocytes 1 Not Estab. % [facility] Immature Grans (Absolute) 0.1 0.0 - 0.1 x10E3/uL [facility] Blood specimen (specimen) Venous blood / Unknown 09/06/2024 8:15 AM EDT 09/06/2024 us Barry Reyes MD LAB BLOOD ORDERABLES Final Re sult [facility] [address] [place] [address] documented in this encounter Visit Diagnoses Diagnosis Anemia in chronic kidney disease Other iron deficiency anemia Chronic kidney disease, stage 2 (mild) documented in this encounter Care Teams Fmd Teacher Relationship Specialty Start Date End Date Sahra Son MD [address] [place] [address] PCP - General Internal Medicine 10/28/22 documented as of this encounter
--- OUTSIDE RECORDS SUMMARY | 2025-04-05 11:34 | XMS_ITS | Encounter Summary ---
Author Organization [facility] Address [address] [place] [address] Phone Care Team Providers Care Workforce Management Consultant Name Role Phone Sahra Son MD Primary Care Provider + Encounter Details Date Type Department Care Team ([facility] Contact Info) Description 04/05/2024 Documentation Only [facility] [address] [place] [address] India Davalos [address] [place], [place] [...] Services Of [address] [place] [address] Barry Reyes MD [address] [place] [address] [place] [address] documented as of this encounter Visit Diagnoses Not on filedocumented in this encounter Care Teams Workforce Management Consultant Relationship Specialty Start Date End Date Sahra Son MD [address] [address] PCP - General Internal Medicine 10/28/22 documented as of this encounter
--- OUTSIDE RECORDS SUMMARY | 2025-04-05 11:34 | XMS_ITS | Encounter Summary ---
Author Organization [facility] Address [address] [place] [address] Phone Care Team Providers Care Chart Writer Name Role Phone Sahra Son MD Primary Care Provider + Encounter Details Date Type Department Care Team ([facility] Contact Info) Description 04/05/2024 Documentation Only [facility] [address] [place] [address] India Davalos [address] [place] [address] Social History Tobacco Use Types [...] [facility] [address] [place] [address] Barry Reyes MD [address] [place] [address] [place] [address] documented as of this encounter Visit Diagnoses Not on filedocumented in this encounter Care Teams Chart Writer Relationship Specialty Start Date End Date Sahra Son MD [address] [address] PCP - General Internal Medicine 10/28/22 documented as of this encounter
--- OUTSIDE RECORDS SUMMARY | 2025-04-05 11:35 | XMS_ITS | Encounter Summary ---
Author Organization [facility] Address [address] [place] [address] Phone Care Team Providers Care Auto Wrecker Name Role Phone Sahra Son MD Primary Care Provider + Encounter Details Date Type Department Care Team (Late Contact Info) Description 10/13/2024 Orders Only [facility] [address] [place] [address] India Davalos [address] [place] [address] Chronic kidney disease, stage 2 [...] Visit [facility] [address] [place] [address] Barry Reyes MD [address] [place] [address] [place] [address] documented as of this encounter Visit Diagnoses Diagnosis Chronic kidney disease, stage 2 (mild) Anemia in chronic kidney disease Iron deficiency anemia, not otherwise specified documented in this encounter Care Teams Auto Wrecker Relationship Specialty Start Date End Date Sahra Son MD [address] [place] [address] PCP - General Internal Medicine 10/28/22 documented as of this encounter
--- OUTSIDE RECORDS SUMMARY | 2025-04-05 11:35 | XMS_ITS | Encounter Summary ---
Author Organization [facility] Address [address] [place] [address] Phone Care Team Providers Care Permit Technician Name Role Phone Sahra Son MD Primary Care Provider + Encounter Details Date Type Department Care Team (Late Contact Info) Description 11/10/2024 Orders Only [facility] [address] [place] [address] India Davalos [address] [place] [address] Chronic kidney disease, stage 2 [...] Visit [facility] [address] [place] [address] Barry Reyes MD [address] [place] [address] [place] [address] documented as of this encounter Visit Diagnoses Diagnosis Chronic kidney disease, stage 2 (mild) Anemia in chronic kidney disease Iron deficiency anemia, not otherwise specified documented in this encounter Care Teams Permit Technician Relationship Specialty Start Date End Date Sahra Son MD [address] [place] [address] PCP - General Internal Medicine 10/28/22 documented as of this encounter
--- OUTSIDE RECORDS SUMMARY | 2025-04-05 11:35 | XMS_ITS | Encounter Summary ---
Author Organization [facility] Address [address] [place] [address] Care Team Providers Care Anodic Treater Name Role Phone Vinnie Santizo Primary Care Provider Sahra Keith MD Primary Care Provider Marko Fernandez MD Unavailable [phone] Reason for Visit * Reason Comments E-prescribe Rx Request Encounter Details Date Type Department Care Team Description 11/26/2017 Refill Pulmonology - [place] [address] [facility] [address] [place] [phone] Eneida Acuña NP E-prescribe Rx Request Social [...] YES Patients current insurance carrier is: Payor: [employer] [facility] [employer] MCR / Plan: [facility] / Product Type: HMO [id number] documented in this encounter Plan of Treatment Not on file documented as of this encounter Visit Diagnoses Diagnosis Systemic lupus erythematosus, unspecified SLE type, unspecified organ involvement status (HCC) Pulmonary nodule Solitary pulmonary nodule Tobacco abuse Tobacco use disorder Asthma, unspecified asthma severity, unspecified whether complicated, unspecified whether persistent Multiple environmental allergies Cigarette smoker Tobacco use disorder documented in this encounter Care Teams Anodic Treater Relationship Specialty Start Date End Date Vinnie Santizo PCP - General Internal Medicine 03/30/17 08/30/22 Sahra Son MD PCP - General Internal Medicine 08/31/22 Marko Spaulding MD Specialist Cardiology 09/23/22 documented as of this encounter
--- OUTSIDE RECORDS SUMMARY | 2025-04-05 11:35 | XMS_ITS | Encounter Summary ---
Author Organization [facility] Address [address] [place] [address] Care Team Providers Care Ld Teacher Name Role Phone Vinnie Santizo Primary Care Provider Sahra Keith MD Primary Care Provider Marko Fernandez MD Unavailable [phone] Reason for Visit * Reason Comments E-prescribe Rx Request Encounter Details Date Type Department Care Team Description 05/07/2018 Refill Pulmonology - [place] [address] [facility] [address] [place] [address] Royer Schulz MD E-prescribe Rx Request Social [...] NO Patients current insurance carrier is: Payor: [facility] MCR / Plan: [facility] / Product Type: HMO [id number] documented in this encounter Plan of Treatment [...] persistent documented in this encounter Care Teams Ld Teacher Relationship Specialty Start Date End Date Vinnie Santizo PCP - General Internal Medicine 03/30/17 08/30/22 Sahra Son MD PCP - General Internal Medicine 08/31/22 Marko Spaulding MD Specialist Cardiology 09/23/22 documented as of this encounter
--- OUTSIDE RECORDS SUMMARY | 2025-04-05 11:35 | XMS_ITS | Encounter Summary ---
Author Organization [facility] Address [address] [place] [address] Care Team Providers Care Wrecking Car Driver Name Role Phone Vinnie Santizo Primary Care Provider Sahra Keith MD Primary Care Provider Marko Fernandez MD Unavailable [phone] Encounter Details Date Type Department Care Team Description 08/14/2022 SCAN Medical Records [address] [place] [id number] Abstract, Provider Social History Tobacco Use Types [...] on filedocumented in this encounter Care Teams Wrecking Car Driver Relationship Specialty Start Date End Date Vinnie Santizo PCP - General Internal Medicine 03/30/17 08/30/22 Sahra Son MD PCP - General Internal Medicine 08/31/22 Marko Spaulding MD Specialist Cardiology 09/23/22 documented as of this encounter
--- OUTSIDE RECORDS SUMMARY | 2025-04-05 11:35 | XMS_ITS | Encounter Summary ---
Author Organization [facility] Address [address] [place] [address] Phone Care Team Providers Care Lamp Shades Supervisor Name Role Phone Sahra Son MD Primary Care Provider + Encounter Details Date Type Department Care Team ([facility] Contact Info) Description 11/13/2024 Documentation Only [facility] [address] [place] [address] India Davalos [address] [place] [address] Social History Tobacco Use Types [...] [facility] [address] [place] [address] Barry Reyes MD [address] [place] [address] [place] [address] documented as of this encounter Visit Diagnoses Not on filedocumented in this encounter Care Teams Lamp Shades Supervisor Relationship Specialty Start Date End Date Sahra Son MD [address] [address] PCP - General Internal Medicine 10/28/22 documented as of this encounter
--- OUTSIDE RECORDS SUMMARY | 2025-04-05 11:35 | XMS_ITS | Encounter Summary ---
Author Organization [facility] Address [address] [place] [address] Phone Care Team Providers Care Switching Clerk Name Role Phone Sahra Son MD Primary Care Provider + Encounter Details Date Type Department Care Team (Late Contact Info) Description 09/29/2024 Orders Only [facility] [address] [place] [address] India Davalos [address] [place] [address] Anemia in chronic kidney disease; [...] [facility] [address] [place] [address] Barry Reyes MD [address] [place] [address] [place] [address] documented as of this encounter [...] Glucose 219(H) 70 - 99 mg/dL [facility] BUN 14 8 - 27 mg/dL [facility] Creatinine 1.09(H) 0.57 - 1.00 mg/dL [facility] eGFR CKD-EPI CR 2020 57(L) >59 mL/min/1.7 3 [facility] BUN/Creatinine Ratio 13 12 - 28 [facility] Sodium 139 134 - 144 mmol/L [facility] Potassium 5.0 3.5 - 5.2 mmol/L [facility] Chloride 101 96 - 106 mmol/L [facility] Bicarbonate (CO2) 20 20 - 29 mmol/L [facility] Calcium 9.2 8.7 - 10.3 mg/dL [facility] Albumin 4.1 3.9 - 4.9 g/dL [facility] Phosphorus 3.7 3.0 - 4.3 mg/dL [facility] Blood specimen (specimen) Venous blood / Unknown 10/04/2024 9:48 AM EDT 10/04/2024 Barry Reyes MD LAB BLOOD ORDERABLES Final Re sult [facility] [address] [place] [address] * (ABNORMAL) Ferritin (10/04/2024 9:48 AM EDT) Ferritin 167(H) 15 - 150 ng/mL [facility] Blood specimen (specimen) Venous blood / Unknown 10/04/2024 9:48 AM EDT 10/04/2024 Barry Reyes MD LAB BLOOD ORDERABLES Final Re sult Performing Organization Address [facility] Co de Phone Number [facility] [address] [place] [address] * (ABNORMAL) Iron Panel (Fe, TIBC, TSAT) (10/04/2024 9:48 AM EDT) TIBC 247(L) 250 - 450 ug/dL [facility] UIBC 205 118 - 369 ug/dL [facility] Iron 42 27 - 139 ug/dL [facility] Iron Saturation (TSat) 17 15 - 55 % [facility] Blood specimen (specimen) Venous blood / Unknown 10/04/2024 9:48 AM EDT 10/04/2024 Barry Reyes MD LAB BLOOD ORDERABLES Final Re sult Performing Organization Address City/[facility]/ZIP Co de Phone Number [facility] [address] [facility] [place] [address] * (ABNORMAL) CBC and Differential (10/04/2024 9:48 AM EDT) [facility] WBC 6.0 3.4 - 10.8 x10E3/uL [facility] RBC 5.10 3.77 - 5.28 x10E6/uL [facility] Hemoglobin 10.2(L) 11.1 - 15.9 g/dL [facility] Hematocrit 35.1 34.0 - 46.6 % [facility] MCV 69(L) 79 - 97 fL [facility] MCH 20.0(L) 26.6 - 33.0 pg [facility] MCHC 29.1(L) 31.5 - 35.7 g/dL [facility] RDW 18.5(H) 11.7 - 15.4 % [facility] Platelets 170 150 - 450 x10E3/uL [facility] Neutrophils Relative 69 Not Estab. % [facility] Lymphocytes Relative 22 Not Estab. % [facility] Monocytes 6 Not Estab. % [facility] Eosinophils Relative 2 Not Estab. % [facility] Basophils Relative 1 Not Estab. % [facility] Neutrophils Absolute 4.2 1.4 - 7.0 x10E3/uL [facility] Lymphocytes Absolute 1.3 0.7 - 3.1 x10E3/uL [facility] Monocytes Absolute 0.3 0.1 - 0.9 x10E3/uL [facility] Eosinophils Absolute 0.1 0.0 - 0.4 x10E3/uL [facility] Basophils Absolute 0.1 0.0 - 0.2 x10E3/uL [facility] Immature Granulocytes 0 Not Estab. % [facility] Immature Grans (Absolute) 0.0 0.0 - 0.1 x10E3/uL [facility] Blood specimen (specimen) Venous blood / Unknown 10/04/2024 9:48 AM EDT 10/04/2024 us Barry Reyes MD LAB BLOOD ORDERABLES Final Re sult [facility] [address] [place] [address] documented in this encounter Visit Diagnoses Diagnosis Anemia in chronic kidney disease Other iron deficiency anemia Chronic kidney disease, stage 2 (mild) documented in this encounter Care Teams Switching Clerk Relationship Specialty Start Date End Date Sahra Son MD [address] [place] [address] PCP - General Internal Medicine 10/28/22 documented as of this encounter
--- OUTSIDE RECORDS SUMMARY | 2025-04-05 11:35 | XMS_ITS | Encounter Summary ---
Author Organization [facility] Address [address] [place] [address] Care Team Providers Care Appliance Repair Technician Name Role Phone Vinnie Santizo Primary Care Provider Sahra Keith MD Primary Care Provider Marko Fernandez MD Unavailable [phone] Encounter Details Date Type Department Care Team Description 11/11/2017 SCAN Medical Records [address] [place] [address] Chela Solis MD Social History Tobacco Use [...] on filedocumented in this encounter Care Teams Appliance Repair Technician Relationship Specialty Start Date End Date Vinnie Santizo PCP - General Internal Medicine 03/30/17 08/30/22 Sahra Son MD PCP - General Internal Medicine 08/31/22 Marko Spaulding MD Specialist Cardiology 09/23/22 documented as of this encounter
--- OUTSIDE RECORDS SUMMARY | 2025-04-05 11:36 | XMS_ITS | Encounter Summary ---
Author Organization [facility] Address [address] [place] [address] Phone Care Team Providers Care Him Clerk Name Role Phone Sahra Son MD Primary Care Provider + Encounter Details Date Type Department Care Team (Late st Contact Info) Description 01/19/2025 Orders Only [facility] [address] [place] [address] India Davalos [address] [place] [address] Anemia in chronic kidney disease; [...] Hospital [address] [place] [address] Barry Reyes MD [address] [place] [address] documented as of this encounter Visit Diagnoses Diagnosis Anemia in chronic kidney disease Other iron deficiency anemia Chronic kidney disease, stage 2 (mild) documented in this encounter Care Teams Him Clerk Relationship Specialty Start Date End Date Sahra Son MD [facility] [place] [address] PCP - General Internal Medicine 10/28/22 documented as of this encounter
--- OUTSIDE RECORDS SUMMARY | 2025-04-05 11:36 | XMS_ITS | Encounter Summary ---
Author Organization [facility] Address [address] [place] [address] Care Team Providers Care Budget Clerk Name Role Phone Vinnie Santizo Primary Care Provider Sahra Keith MD Primary Care Provider Marko Fernandez MD Unavailable [phone] Encounter Details Date Type Department Care Team Description 08/10/2018 SCAN Medical Records [address] [place] [address] Abstract, Provider Social History Tobacco Use Types [...] on filedocumented in this encounter Care Teams Budget Clerk Relationship Specialty Start Date End Date Vinnie Santizo PCP - General Internal Medicine 03/30/17 08/30/22 Sahra Son MD PCP - General Internal Medicine 08/31/22 Marko Spaulding MD Specialist Cardiology 09/23/22 documented as of this encounter
--- OUTSIDE RECORDS SUMMARY | 2025-04-05 11:37 | XMS_ITS | Encounter Summary ---
Author Organization [facility] Address [address] [place] [address] Care Team Providers Care Financial Advocate Name Role Phone Vinnie Santizo Primary Care Provider Obinna Merrill MD Primary Care Provider [facility] Tammie, Pcp Primary Care Provider Vinnie Rodriguez Primary Care Provider Sahra Keith MD [facility] Marko Spaulding MD Unavailable [phone] Encounter Details Date Type Department Care Team Description 09/09/1998 [facility] [address] [address] Gwen Jean UNSPECIFIED CHEST PAIN Social History Tobacco Use Types Packs/Day Years Used Date Smoking Tobacco: Never Assessed Sex Assigned at Date Recorded Not on file documented as of this encounter Plan of Treatment Not on file documented as of this encounter Visit Diagnoses Diagnosis Chest pain, unspecified documented in this encounter Care Teams Financial Advocate Relationship Specialty Start Date End Date Vinnie Santizo PCP - General 08/04/03 12/12/12 Obinna Mao MD PCP - General Internal Medicine 12/13/1207/23 [facility], Pcp PCP - General Internal Medicine 07/24/13 03/29/17 Vinnie Santizo PCP - General Internal Medicine 03/30/17 08/30/22 Sahra Son MD PCP - General Internal Medicine 08/31/22 Marko Spaulding MD Specialist Cardiology 09/23/22 documented as of this encounter
--- OUTSIDE RECORDS SUMMARY | 2025-04-05 11:37 | XMS_ITS | Encounter Summary ---
Author Organization [facility] Address [address] [place] [address] Phone Care Team Providers Care Orthotist Or Prosthetist Name Role Phone Sahra Son MD Primary Care Provider + Encounter Details Date Type Department Care Team (Late st Contact Info) Description 11/24/2024 Orders Only [facility] [address] [address] India Davalos [address] [place] [address] Anemia in chronic kidney disease; [...] [facility] [address] [place] [address] Barry Reyes MD [address] [place] [address] documented as of this encounter Visit Diagnoses Diagnosis Anemia in chronic kidney disease Other iron deficiency anemia Chronic kidney disease, stage 2 (mild) documented in this encounter Care Teams Orthotist Or Prosthetist Relationship Specialty Start Date End Date Sahra Son MD [facility] [place] [address] PCP - General Internal Medicine 10/28/22 documented as of this encounter
--- OUTSIDE RECORDS SUMMARY | 2025-04-05 11:37 | XMS_ITS | Continuity of Care Document ---
Author Name Felix Tariq Address [address] [place] [address] Organization Unknown Address [address] [place] [address] Medications No known medications Problems No known problems
--- OUTSIDE RECORDS SUMMARY | 2025-04-05 11:37 | XMS_ITS | Continuity of Care Document ---
Author Name [facility] Address [address] [place] [address] Organization Unknown Address [address] [place] [address] Medications No known medications Problems No known problems
--- OUTSIDE RECORDS SUMMARY | 2025-04-05 11:37 | XMS_ITS | Encounter Summary ---
Author Organization [facility] Address [address] [place] [address] Care Team Providers Care Field Traffic Investigator Name Role Phone Vinnie Santizo Primary Care Provider Sahra Keith MD Primary Care Provider Marko Fernandez MD Unavailable Encounter Details Date Type Department Care Team Description 04/15/2017 Orders Only Medical Records [address] [place] [address] Shanti Torres MD [address] [place] [address] Social History Tobacco Use Types Packs/Day Years [...] filedocumented in this encounter Care Teams Field Traffic Investigator Relationship Specialty Start Date End Date Vinnie Santizo PCP - General Internal Medicine 03/30/17 08/30/22 Sahra Son MD PCP - General Internal Medicine 08/31/22 Marko Spaulding MD Specialist Cardiology 09/23/22 documented as of this encounter
--- OUTSIDE RECORDS SUMMARY | 2025-04-05 11:37 | XMS_ITS | Encounter Summary ---
Author Organization [facility] Address [address] [place] [address] Encounters * CPT with Medical [facility] at [facility] on 2025-01-14 64 yo F with PMHx [...]
--- OUTSIDE RECORDS SUMMARY | 2025-04-05 11:37 | XMS_ITS | Encounter Summary ---
Author Organization [facility] Address [address] [place] [address] Encounters * CPT with Felix Tariq at [facility] on 2024-10-25 63 y/o female Patient called [...]
--- OUTSIDE RECORDS SUMMARY | 2025-04-05 11:37 | XMS_ITS | Encounter Summary ---
Author Organization [facility] Address [address] [place] [address] Care Team Providers Care Formal Service Waiter Name Role Phone Obinna Mao MD Primary Care Provider Unavailable Tammie, Pcp Primary Care Provider Vinnie Rodriguez Primary Care Provider Sahra Keith MD Primary Care Provider Paula vailable Marko Spaulding MD Unavailable [phone] Encounter Details Date Type Department Care Team Description 12/28/2012 Release of Information Medical Records [address] [place] [address] Abstract, Provider Social History Tobacco Use Types [...] on filedocumented in this encounter Care Teams Formal Service Waiter Relationship Specialty Start Date End Date Obinna Mao MD PCP - General Internal Medicine 12/13/1207/23 Replaced By [facility], Pcp PCP - General Internal Medicine 07/24/13 03/29/17 Vinnie Santizo PCP - General Internal Medicine 03/30/17 08/30/22 Sahra Son MD PCP - General Internal Medicine 08/31/22 Marko Spaulding MD Specialist Cardiology 09/23/22 documented as of this encounter
--- OUTSIDE RECORDS SUMMARY | 2025-04-05 11:37 | XMS_ITS | Encounter Summary ---
Author Organization [facility] [employer] [facility] Address [address] [place] [address] Care Team Providers Care Grain Grader Name Role Phone Vinnie Santizo Primary Care Provider Sahra Keith MD Primary Care Provider Marko Fernandez MD Unavailable [phone] Encounter Details Date Type Department Care Team Description 08/19/2017 Inspector Packer Report Medical Records [address] [place] [address] Abstract, Provider Social History Tobacco Use Types [...] filedocumented in this encounter Care Teams Grain Grader Relationship Specialty Start Date End Date Vinnie Santizo PCP - General Internal Medicine 03/30/17 08/30/22 Sahra Son MD PCP - General Internal Medicine 08/31/22 Marko Spaulding MD Specialist Cardiology 09/23/22 documented as of this encounter
--- OUTSIDE RECORDS SUMMARY | 2025-04-05 11:37 | XMS_ITS | Clinical Summary ---
Author Organization [facility] Address [address] [place] [address] Care Team Providers Care Sql Manager Name Role Phone Geovani Natalie Carmelo ESPARZA Primary Care Provider [phone] Allergies Active Allergy Reactions Criticality Noted Date [...] 1 10/04/2016 Active ergocalciferol (VITAMIN D2) capsule 20906 units TK ONE C PO TWICE A [...] times a day. 0 04/27/2022 Active pancrelipase, Lez-Alzt-Khgs, (Creon) [address]50[address] units CPEP TK ONE C PO TID [...] age to complete this topic Care Teams Sql Manager Relationship Specialty Start Date End Date Natalie Olivo APRN [address] [place] [address] PCP - General Concrete Truck Driver 04/30/22
--- OUTSIDE RECORDS SUMMARY | 2025-04-05 11:37 | XMS_ITS | Continuity of Care Document ---
Author Name [facility] Address [address] [place] [address] Organization Unknown Address [address] [place] [address] Medications No known medications Problems No known problems
--- OUTSIDE RECORDS SUMMARY | 2025-04-05 11:38 | XMS_ITS | Encounter Summary ---
Author Organization [facility] Address [address] [place] [address] Phone Care Team Providers Care Developing Machine Operator Name Role Phone Sahra Son MD Primary Care Provider + Encounter Details Date Type Department Care Team (Late st Contact Info) Description 03/16/2025 Orders Only [facility] [address] [place] [address] India Davalos [address] [place] [address] Anemia in chronic kidney disease; [...] [facility] [address] [place] [address] Barry Reyes MD [address] [place] [address] documented as of this encounter Visit Diagnoses Diagnosis Anemia in chronic kidney disease Other iron deficiency anemia Chronic kidney disease, stage 2 (mild) documented in this encounter Care Teams Developing Machine Operator Relationship Specialty Start Date End Date Sahra Son MD [facility] [place] [address] PCP - General Internal Medicine 10/28/22 documented as of this encounter
--- OUTSIDE RECORDS SUMMARY | 2025-04-05 11:38 | XMS_ITS | Clinical Summary ---
Author Organization [facility] Address [address] [place] [address] Phone Care Team Providers Care Battery Tester Name Role Phone Vinnie Santizo Primary Care Provider [phone] Allergies Active Allergy Reactions Criticality Noted Date [...] Description 2025 12:30 PM EDT Office Visit [facility] [address] 9th [place] [address] Cas Faye MD [address] [place] [address] [email or web address] Health Maintenance Due Date Last Done Comments [...] topic Medical Devices Not on file Insurance [facility] MEDICARE REPLACEMENT [facility] MEDICARE REPLACEMENT MEDICARE REPLACEMENT [id number] [place] [address] MEDICARE [facility] Care Teams Battery Tester Relationship Specialty Start Date End Date Vinnie Santizo DO [address] [place] [address] PCP - General 11/14/13 Additional Source Comments The information contained in this document represents components of the legal health record. It is not the complete legal health record.[facility]
--- OUTSIDE RECORDS SUMMARY | 2025-04-05 11:39 | XMS_ITS | Encounter Summary ---
Author Organization [facility] Address [address] [place] [address] Care Team Providers Care Email Marketing Manager Name Role Phone Sahra Son MD Primary Care Provider Paula vailable Marko Spaulding MD Unavailable [phone] Encounter Details Date Type Department Care Team Description 10/04/2022 Release of Information Medical Records [address] [place] [address] [facility] Social History Tobacco Use Types Packs/Day Years [...] on filedocumented in this encounter Care Teams Email Marketing Manager Relationship Specialty Start Date End Date Sahra Son MD PCP - General Internal Medicine 08/31/22 Marko Spaulding MD Specialist Cardiology 09/23/22 documented as of this encounter
--- OUTSIDE RECORDS SUMMARY | 2025-04-05 11:39 | XMS_ITS | Encounter Summary ---
Author Organization [facility] Address [address] [place] [address] Phone Care Team Providers Care Email Manager Name Role Phone Sahra Son MD Primary Care Provider + Encounter Details Date Type Department Care Team (Late Contact Info) Description 06/23/2024 Orders Only [facility] [address] [place] [address] India Davalos [address] [place] [address] Chronic kidney disease, stage 2 [...] Visit [facility] [address] [place] [address] Barry Reyes MD [address] [place] [address] [place] [address] documented as of this encounter Visit Diagnoses Diagnosis Chronic kidney disease, stage 2 (mild) Anemia in chronic kidney disease Iron deficiency anemia, not otherwise specified documented in this encounter Care Teams Email Manager Relationship Specialty Start Date End Date Sahra Son MD [address] [place] [address] PCP - General Internal Medicine 10/28/22 documented as of this encounter
--- OUTSIDE RECORDS SUMMARY | 2025-04-05 11:39 | XMS_ITS | Encounter Summary ---
Author Organization [facility] Address [address] [place] [address] Phone Care Team Providers Care Shop Foreman Name Role Phone Sahra Son MD Primary Care Provider + Encounter Details Date Type Department Care Team (Late Contact Info) Description 07/21/2024 Orders Only [facility] [address] [place] [address] India Davalos [address] [place] [address] Chronic kidney disease, stage 2 [...] [facility] [address] [place] [address] Barry Reyes MD [address] [place] [address] [place] [address] documented as of this encounter Visit Diagnoses Diagnosis Chronic kidney disease, stage 2 (mild) Anemia in chronic kidney disease Iron deficiency anemia, not otherwise specified documented in this encounter Care Teams Shop Foreman Relationship Specialty Start Date End Date Sahra Son MD [address] [place] [address] PCP - General Internal Medicine 10/28/22 documented as of this encounter
--- OUTSIDE RECORDS SUMMARY | 2025-04-05 11:39 | XMS_ITS | Encounter Summary ---
Author Organization [facility] Address [address] [place] [address] Care Team Providers Care Roll Out Manager Name Role Phone Sahra Son MD Primary Care Provider Paula vailable Marko Spaulding MD Unavailable [phone] Encounter Details Date Type Department Care Team Description 05/06/2023 Lpn Report Medical Records [address] [place] [address] Sahra Son MD Social History Tobacco Use [...] filedocumented in this encounter Care Teams Roll Out Manager Relationship Specialty Start Date End Date Sahra Son MD PCP - General Internal Medicine 08/31/22 Marko Spaulding MD Specialist Cardiology 09/23/22 documented as of this encounter
--- OUTSIDE RECORDS SUMMARY | 2025-04-05 11:40 | XMS_ITS | Encounter Summary ---
Author Organization [facility] Address [address] [place] [address] Care Team Providers Care Brick Layer Name Role Phone Sahra Son MD Primary Care Provider Paula daryilable Marko Spaulding MD Unavailable [phone] Encounter Details Date Type Department Care Team Description 12/17/2022 Orders Only Medical Records [address] [place] [address] Abstract, Provider Social History Tobacco Use Types [...] on filedocumented in this encounter Care Teams Brick Layer Relationship Specialty Start Date End Date Sahra Son MD PCP - General Internal Medicine 08/31/22 Marko Spaulding MD Specialist Cardiology 09/23/22 documented as of this encounter
== END 2025-04-05 09:35 | disposition home or self-care (01) ==
LOC: HO.ACS 09:09
PROVIDERS: PCP Internal Medicine; Visit Provider Internal Medicine Medical Oncology
DX: Z79.01 Long term (current) use of anticoagulants (principal)

== ENCOUNTER → 2025-04-05 09:09 | Outpatient (BNVA) | payer OTHER, SELFPAY | PROVIDERS: PCP Internal Medicine; Visit Provider Internal Medicine Medical Oncology | DX: Z79.01 Long term (current) use of anticoagulants (principal) | CPT/HCPCS: 85610; 99211 ==

== ENCOUNTER 2025-04-19 08:34 | Outpatient (AMB) | payer OTHER, SELFPAY ==
[2025-04-19 08:39] LABS: Prothrombin Time Whole Bld POC 29.7 sec (11.1-13.5); ~PT, ~INR - Anti Coag Clinic 2.5 (0.9-1.1)
--- NOTE | 2025-04-19 08:42 | MHC.OFFVISCO ---
Intake Intake Visit Reasons: Anticoagulation Allergies codeine (Codeine) Allergy (Severe, Verified 04/19/25 08:34) DIFFICULTY BREATHING Penicillins Allergy (Severe, Verified 04/19/25 08:34) RASH penicillin V Allergy (Intermediate, Verified 04/19/25 08:34) RASH tramadol (Ultram) Allergy (Unknown, Verified 04/19/25 08:34) hallucinations Shellfish Allergy (Severe, Uncoded 04/19/25 08:34) THROAT SWELLING Contrast Allergy PreMed Pack Allergy (Unknown, Uncoded 04/19/25 08:34) TREAT WITH BENADRYL ferrlecit Adverse Reaction (Intermediate, Uncoded 04/19/25 08:34) Rash Medication List - Last Reconciled 04/19/25 by Tonia Angeles, RN alcohol swabs 2 pad topical DAILY blood sugar diagnostic As directed budesonide (Pulmicort) 0.25 mg inhalation BID clonidine HCl 0.1 mg PO BID dapagliflozin propanediol (Farxiga) 5 mg PO DAILY divalproex ER 250 mg PO TID 3 months MDD 750 docusate sodium (Colace) 100 mg PO DAILY duloxetine (Cymbalta) 30 mg PO DAILY duloxetine 60 mg PO QAM epoetin marj (Procrit) 2,000 units subcut 3XW hydrocortisone 2.5% appl topical insulin glargine (Lantus Solostar U-100 Insulin) 5 units subcut DAILY ipratropium-albuterol 0.5 mg-3 mg(2.5 mg base)/3 mL mL inhalation ipratropium-albuterol 20-100 mcg/actuation 1 puff PO QID ipratropium-albuterol 20-100 mcg/actuation (Combivent Respimat) 1 puff inhalation Q4H lancets As directed lancets As directed latanoprost 0.005% drps ophthalmic (eye) linaclotide (Linzess) 145 mcg PO DAILY linagliptin (Tradjenta) 5 mg PO DAILY ncdxti-haucdpvi-orernyb (pork) 24,000-76,000 -120,000 unit (Creon) 1 cap PO TID loratadine 10 mg PO DAILY PRN lorazepam 1 mg PO BID meclizine mg PO montelukast 10 mg PO BEDTIME nifedipine ER 30 mg PO DAILY nitroglycerin 0.4 mg sublingual Q5M PRN nystatin 1 appl topical DAILY PRN ondansetron 4 mg PO Q8H PRN oxcarbazepine (Trileptal) 150 mg PO Q12H 30 days pen needle, diabetic (Ultra-Fine Pen Needle) As directed quetiapine 200 mg PO BEDTIME rabeprazole 20 mg PO DAILY ropinirole 0.25 mg PO BEDTIME rosuvastatin 40 mg PO DAILY sodium chloride 0.65% (Deep Sea Nasal) sprays intranasal Q2H PRN triamcinolone acetonide 0.1% appl topical warfarin 2.5 mg See Protocol PO DAILY Nursing Note INR: 2.5 in therapeutic range Medications and supplements reviewed No changes in health, diet, medications, or supplements, Denies any signs and symptoms of bleeding or bruising or clotting. 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
--- OUTSIDE RECORDS SUMMARY | 2025-04-19 09:11 | XMS_ITS | Encounter Summary ---
Author Organization [facility] Address [address] [place] [address] Phone Care Team Providers Care Examiner Of Currency Name Role Phone Sahra Son MD Primary Care Provider + Encounter Details Date Type Department Care Team ([facility] Contact Info) Description 06/17/2022 Documentation Only [facility] [address] [place] [address] India Davalos [address] [place] [address] Social History Tobacco Use Types [...] [facility] [address] [place] [address] Barry Reyes MD [address] [place] [address] [place] [address] documented as of this encounter Visit Diagnoses Not on filedocumented in this encounter Care Teams Examiner Of Currency Relationship Specialty Start Date End Date Sahra Son MD [address] [address] PCP - General Internal Medicine 10/28/22 documented as of this encounter
--- OUTSIDE RECORDS SUMMARY | 2025-04-19 09:11 | XMS_ITS | Encounter Summary ---
Author Organization [facility] Address [address] [place] [address] Phone Care Team Providers Care Expediter Name Role Phone Sahra Son MD Primary Care Provider + Encounter Details Date Type Department Care Team ([facility] Contact Info) Description 08/11/2022 Documentation Only [facility] [address] [place] [address] India Davalos [address] [place] [address] Social History Tobacco Use Types [...] [facility] [address] [place] [address] Barry Reyes MD [address] [place] [address] [place] [address] documented as of this encounter Visit Diagnoses Not on filedocumented in this encounter Care Teams Expediter Relationship Specialty Start Date End Date Sahra Son MD [address] [address] PCP - General Internal Medicine 10/28/22 documented as of this encounter
--- OUTSIDE RECORDS SUMMARY | 2025-04-19 09:11 | XMS_ITS | Encounter Summary ---
Author Organization [facility] Address [address] [place] [address] Phone Care Team Providers Care Riverboat Master Name Role Phone Sahra Son MD Primary Care Provider + Encounter Details Date Type Department Care Team ([facility] Contact Info) Description 12/31/2023 Documentation Only [facility] [address] [place] [address] India Davalos [address] [place] [address] Social History Tobacco Use [...] [facility] [address] [place] [address] Barry Reyes MD [address] [place] [address] [place] [address] documented as of this encounter Visit Diagnoses Not on filedocumented in this encounter Care Teams Riverboat Master Relationship Specialty Start Date End Date Sahra Son MD [address] [address] PCP - General Internal Medicine 10/28/22 documented as of this encounter
--- OUTSIDE RECORDS SUMMARY | 2025-04-19 09:11 | XMS_ITS | Encounter Summary ---
Author Organization [facility] Address [address] [place] [address] Phone Care Team Providers Care Sales Representative Facility Services Name Role Phone Sahra Son MD Primary Care Provider + Encounter Details Date Type Department Care Team ([facility] Contact Info) Description 04/08/2022 Documentation Only [facility] [address] [place] [address] India Davalos [address] [place] [address] Social History Tobacco Use Types [...] Care Team ([facility] Contact Info) Description 06/05/2025 2:50 PM EST Office Visit [facility] [address] [place] [address] Barry Reyes MD [address] [place] [address] [place] [address] documented as of this encounter Visit Diagnoses Not on filedocumented in this encounter Care Teams Sales Representative Facility Services Relationship Specialty Start Date End Date Sahra Son MD [address] [address] PCP - General Internal Medicine 10/28/22 documented as of this encounter
--- OUTSIDE RECORDS SUMMARY | 2025-04-19 09:11 | XMS_ITS | Encounter Summary ---
Author Organization [facility] Address [address] [place] [address] Phone Care Team Providers Care Reservation Manager Name Role Phone Sahra Son MD Primary Care Provider + Encounter Details Date Type Department Care Team ([facility] Contact Info) Description 08/24/2024 Documentation Only [facility] [address] [place] [address] India Davalos [address] [place], [place] [...] [facility] [address] [place] [address] Barry Reyes MD [address] [place] [address] [place] [address] documented as of this encounter Visit Diagnoses Not on filedocumented in this encounter Care Teams Reservation Manager Relationship Specialty Start Date End Date Sahra Son MD [address] [address] PCP - General Internal Medicine 10/28/22 documented as of this encounter
--- OUTSIDE RECORDS SUMMARY | 2025-04-19 09:11 | XMS_ITS | Encounter Summary ---
Author Organization [facility] Address [address] [place] [address] Phone Care Team Providers Care Activities Therapist Name Role Phone Sahra Son MD Primary Care Provider + Encounter Details Date Type Department Care Team ([facility] Contact Info) Description 11/21/2021 Documentation Only [facility] [address] [place] [address] India Davalos [address] [place], [place] [...] [facility] [address] [place] [address] Barry Reyes MD [address] [place] [address] [place] [address] documented as of this encounter Visit Diagnoses Not on filedocumented in this encounter Care Teams Activities Therapist Relationship Specialty Start Date End Date Sahra Son MD [address] [address] PCP - General Internal Medicine 10/28/22 documented as of this encounter
--- OUTSIDE RECORDS SUMMARY | 2025-04-19 09:11 | XMS_ITS | Encounter Summary ---
Author Organization [facility] Address [address] [place] [address] Phone Care Team Providers Care Contract Designer Name Role Phone Sahra Son MD Primary Care Provider + Encounter Details Date Type Department Care Team ([facility] Contact Info) Description 09/28/2022 Documentation Only [facility] [address] [place] [address] India Davalos [address] [place] [address] Social History Tobacco Use Types [...] [facility] Contact Info) Description 06/05/2025 2:50 PM EST Office Visit [facility] [address] [place] [address] Barry Reyes MD [address] [place] [address] [place] [address] documented as of this encounter Visit Diagnoses Not on filedocumented in this encounter Care Teams Contract Designer Relationship Specialty Start Date End Date Sahra Son MD NPI: [id number] [place] [address] PCP - General Internal Medicine 10/28/22 documented as of this encounter
--- OUTSIDE RECORDS SUMMARY | 2025-04-19 09:11 | XMS_ITS | Encounter Summary ---
Author Organization [facility] Address [address] [place] [address] Phone Care Team Providers Care Assisted Living Care Manager Name Role Phone Sahra Son MD Primary Care Provider + Encounter Details Date Type Department Care Team ([facility] Contact Info) Description 09/28/2022 Documentation Only [facility] [address] [place] [address] India Davalos [address] [place] [address] Social History Tobacco Use Types [...] [facility] [address] [place] [address] Barry Reyes MD [address] [place] [address] [place] [address] documented as of this encounter Visit Diagnoses Not on filedocumented in this encounter Care Teams Assisted Living Care Manager Relationship Specialty Start Date End Date Sahra Son MD NPI: [id number] [place] [address] PCP - General Internal Medicine 10/28/22 documented as of this encounter
--- OUTSIDE RECORDS SUMMARY | 2025-04-19 09:11 | XMS_ITS | Encounter Summary ---
Author Organization [facility] Address [address] [place] [address] Phone Care Team Providers Care Print Developer Name Role Phone Sahra Son MD Primary Care Provider + Encounter Details Date Type Department Care Team (Late Contact Info) Description 03/03/2024 Orders Only [facility] [address] [place] [address] India Davalos [address] [place] [address] Chronic kidney disease, stage [...] [facility] [address] [place] [address] Barry Reyes MD [address] [place] [address] [place] [address] documented as of this encounter [...] Glucose 152(H) 70 - 99 mg/dL [facility] BUN 16 8 - 27 mg/dL [facility] Creatinine 0.98 0.57 - 1.00 mg/dL [facility] eGFR CKD-EPI CR 2020 64 >59 mL/min/1.7 3 [facility] BUN/Creatinine Ratio 16 12 - 28 [facility] Sodium 137 134 - 144 mmol/L [facility] Potassium 4.8 3.5 - 5.2 mmol/L [facility] Chloride 101 96 - 106 mmol/L [facility] Bicarbonate (CO2) 22 20 - 29 mmol/L [facility] Calcium 8.8 8.7 - 10.3 mg/dL [facility] Albumin 4.0 3.9 - 4.9 g/dL [facility] Phosphorus 4.0 3.0 - 4.3 mg/dL [facility] Blood specimen (specimen) Venous blood / Unknown 03/24/2024 10:37 AM EST 03/24/2024 Barry Reyes MD LAB BLOOD ORDERABLES Final Re sult [facility] [address] [place] [address] * Ferritin (03/24/2024 10:37 AM EST) Ferritin 37 15 - 150 ng/mL [facility] Blood specimen (specimen) Venous blood / Unknown 03/24/2024 10:37 AM EST 03/24/2024 Barry Reyes MD LAB BLOOD ORDERABLES Final Re sult Performing Organization Address [facility] Co de Phone Number [facility] [address] [place] [address] * Iron Panel (Fe, TIBC, TSAT) (03/24/2024 10:37 AM EST) TIBC 293 250 - 450 ug/dL [facility] UIBC 247 118 - 369 ug/dL [facility] Iron 46 27 - 139 ug/dL [facility] Iron Saturation (TSat) 16 15 - 55 % [facility] Blood specimen (specimen) Venous blood / Unknown 03/24/2024 10:37 AM EST 03/24/2024 Barry Reyes MD LAB BLOOD ORDERABLES Final Re sult Performing Organization Address City/[facility]/ZIP Co de Phone Number [facility] [address] [place] [address] * (ABNORMAL) CBC and Differential (03/24/2024 10:37 AM EST) [facility] WBC 6.0 3.4 - 10.8 x10E3/uL [facility] RBC 5.21 3.77 - 5.28 x10E6/uL [facility] Hemoglobin 10.0(L) 11.1 - 15.9 g/dL [facility] Hematocrit 35.3 34.0 - 46.6 % [facility] MCV 68(L) 79 - 97 fL [facility] MCH 19.2(L) 26.6 - 33.0 pg [facility] MCHC 28.3(L) 31.5 - 35.7 g/dL [facility] RDW 19.4(H) 11.7 - 15.4 % [facility] Platelets 186 150 - 450 x10E3/uL [facility] Neutrophils Relative 65 Not Estab. % [facility] Lymphocytes Relative 26 Not Estab. % [facility] Monocytes 6 Not Estab. % [facility] Eosinophils Relative 2 Not Estab. % [facility] Basophils Relative 1 Not Estab. % [facility] Neutrophils Absolute 3.9 1.4 - 7.0 x10E3/uL [facility] Lymphocytes Absolute 1.5 0.7 - 3.1 x10E3/uL [facility] Monocytes Absolute 0.3 0.1 - 0.9 x10E3/uL [facility] Eosinophils Absolute 0.1 0.0 - 0.4 x10E3/uL [facility] Basophils Absolute 0.0 0.0 - 0.2 x10E3/uL [facility] Immature Granulocytes 0 Not Estab. % [facility] Immature Grans (Absolute) 0.0 0.0 - 0.1 x10E3/uL [facility] Blood specimen (specimen) Venous blood / Unknown 03/24/2024 10:37 AM EST 03/24/2024 us Barry Reyes MD LAB BLOOD ORDERABLES Final Re sult [facility] [address] [place] [address] documented in this encounter Visit Diagnoses Diagnosis Chronic kidney disease, stage 2 (mild) Anemia in chronic kidney disease Iron deficiency anemia, not otherwise specified documented in this encounter Care Teams Print Developer Relationship Specialty Start Date End Date Sahra Son MD [address] [address] PCP - General Internal Medicine 10/28/22 documented as of this encounter
--- OUTSIDE RECORDS SUMMARY | 2025-04-19 09:11 | XMS_ITS | Encounter Summary ---
Author Organization [facility] Address [address] [place] [address] Phone Care Team Providers Care Hospital Medical Assistant Name Role Phone Sahra Son MD Primary Care Provider + Encounter Details Date Type Department Care Team ([facility] Contact Info) Description 08/11/2022 Documentation Only [facility] [address] [place] [address] India Davalos [address] [place] [address] Social History Tobacco Use Types [...] [facility] [address] [place] [address] Barry Reyes MD [address] [place] [address] [place] [address] documented as of this encounter Visit Diagnoses Not on filedocumented in this encounter Care Teams Hospital Medical Assistant Relationship Specialty Start Date End Date Sahra Son MD [address] [address] PCP - General Internal Medicine 10/28/22 documented as of this encounter
--- OUTSIDE RECORDS SUMMARY | 2025-04-19 09:11 | XMS_ITS | Encounter Summary ---
Author Organization [facility] Address [address] [place] [address] Phone Care Team Providers Care Bedspread Seamer Name Role Phone Sahra Son MD Primary Care Provider + Encounter Details Date Type Department Care Team ([facility] Contact Info) Description 11/11/2023 Documentation Only [facility] [address] [place] [place] [address] India Davalos [address] [place], [place] [...] [facility] [address] [place] [place] [address] Barry Reyes MD [address] [place] [address] [place] [address] documented as of this encounter Visit Diagnoses Not on filedocumented in this encounter Care Teams Bedspread Seamer Relationship Specialty Start Date End Date Sahra Son MD NPI: [id number] [place] [address] PCP - General Internal Medicine 10/28/22 documented as of this encounter
--- OUTSIDE RECORDS SUMMARY | 2025-04-19 09:11 | XMS_ITS | Encounter Summary ---
Author Organization [facility] Address [address] [place] [address] Phone Care Team Providers Care Furnace Loader Name Role Phone Sahra Son MD Primary Care Provider + Encounter Details Date Type Department Care Team (Late st Contact Info) Description 12/22/2024 Orders Only [facility] [address] [place] [address] India Davalos [address] [place] [address] Anemia in chronic kidney [...] And Transplant [facility] [address] [place] [address] Barry Reyes MD [address] [facility] [address] [place] [address] documented as of this encounter Visit Diagnoses Diagnosis Anemia in chronic kidney disease Other iron deficiency anemia Chronic kidney disease, stage 2 (mild) documented in this encounter Care Teams Furnace Loader Relationship Specialty Start Date End Date Sahra Son MD [facility] [place] [address] PCP - General Internal Medicine 10/28/22 documented as of this encounter
--- OUTSIDE RECORDS SUMMARY | 2025-04-19 09:11 | XMS_ITS | Encounter Summary ---
Author Organization [facility] Address [address] [place] [address] Phone Care Team Providers Care Billboard Installer Name Role Phone Sahra Son MD Primary Care Provider + Encounter Details Date Type Department Care Team ([facility] Contact Info) Description 04/14/2022 Documentation Only [facility] [address] [place] [address] India Davalos [address] [place] [address] Social History Tobacco Use Types [...] Encounters Date Type Department Care Team ([facility] Contact Info) Description 06/05/2025 2:50 PM EST Office Visit [facility] [address] [place] [address] Barry Reyes MD [address] [place] [address] [place] [address] documented as of this encounter Visit Diagnoses Not on filedocumented in this encounter Care Teams Billboard Installer Relationship Specialty Start Date End Date Sahra Son MD [address] [address] PCP - General Internal Medicine 10/28/22 documented as of this encounter
--- OUTSIDE RECORDS SUMMARY | 2025-04-19 09:11 | XMS_ITS | Encounter Summary ---
Author Organization [facility] Address [address] [place] [address] Phone Care Team Providers Care Floodplain Manager Name Role Phone Sahra Son MD Primary Care Provider + Encounter Details Date Type Department Care Team ([facility] Contact Info) Description 11/05/2023 Documentation Only [facility] [address] [place] [address] India Davalos [address] [place], [place] [...] [facility] [address] [place] [address] Barry Reyes MD [address] [place] [address] [place] [address] documented as of this encounter Visit Diagnoses Not on filedocumented in this encounter Care Teams Floodplain Manager Relationship Specialty Start Date End Date Sahra Son MD [address] [address] PCP - General Internal Medicine 10/28/22 documented as of this encounter
--- OUTSIDE RECORDS SUMMARY | 2025-04-19 09:11 | XMS_ITS | Encounter Summary ---
Author Organization [facility] Address [address] [place] [address] Phone Care Team Providers Care Media Developer Name Role Phone Sahra Son MD Primary Care Provider + Encounter Details Date Type Department Care Team (Late st Contact Info) Description 07/07/2024 Orders Only [facility] [address] [place] [address] India Davalos [address] [place] [address] Anemia in chronic kidney disease; [...] Visit [facility] [address] [place] [address] Barry Reyes MD [address] [facility] [place] [address] documented as of this encounter Visit Diagnoses Diagnosis Anemia in chronic kidney disease Other iron deficiency anemia Chronic kidney disease, stage 2 (mild) documented in this encounter Care Teams Media Developer Relationship Specialty Start Date End Date Sahra Son MD [facility] [place] [address] PCP - General Internal Medicine 10/28/22 documented as of this encounter
--- OUTSIDE RECORDS SUMMARY | 2025-04-19 09:11 | XMS_ITS | Encounter Summary ---
Author Organization [facility] Address [address] [place] [address] Phone Care Team Providers Care Deposit Clerk Name Role Phone Sahra Son MD Primary Care Provider + Encounter Details Date Type Department Care Team ([facility] Contact Info) Description 09/18/2022 Documentation Only [facility] [address] [place] [address] India Davalos [address] [place] [address] Social History Tobacco Use Types [...] Upcoming Encounters Date Type Department Care Team ([facility] Contact Info) Description 06/05/2025 2:50 PM EST Office Visit [facility] [address] [place] [address] Barry Reyes MD [address] [place] [address] [place] [address] documented as of this encounter Visit Diagnoses Not on filedocumented in this encounter Care Teams Deposit Clerk Relationship Specialty Start Date End Date Sahra Son MD NPI: [id number] [place] [address] PCP - General Internal Medicine 10/28/22 documented as of this encounter
--- OUTSIDE RECORDS SUMMARY | 2025-04-19 09:11 | XMS_ITS | Encounter Summary ---
Author Organization [facility] Address [address] [place] [address] Phone Care Team Providers Care Microarray Specialist Name Role Phone Sahra Son MD Primary Care Provider + Encounter Details Date Type Department Care Team (Late Contact Info) Description 01/31/2024 Orders Only [facility] [address] [place] [address] Arlene Alston PA [address] [place] [address] [place] [address] Chronic kidney disease, stage 2 [...] Visit [facility] [address] [place] [address] Barry Reyes MD [address] [place] [address] [place] [address] documented as of this encounter Visit Diagnoses Diagnosis Chronic kidney disease, stage 2 (mild) Essential (primary) hypertension Iron deficiency anemia, not otherwise specified Type 2 diabetes mellitus, not otherwise specified (HCC) Antiphospholipid syndrome (HCC) documented in this encounter Care Teams Microarray Specialist Relationship Specialty Start Date End Date Sahra Son MD [address] [address] PCP - General Internal Medicine 10/28/22 documented as of this encounter
--- OUTSIDE RECORDS SUMMARY | 2025-04-19 09:11 | XMS_ITS | Encounter Summary ---
Author Organization [facility] Address [address] [place] [address] Phone Care Team Providers Care Pediatric Psychiatrist Name Role Phone Sahra Son MD Primary Care Provider + Encounter Details Date Type Department Care Team (Late Contact Info) Description 06/30/2020 Orders Only [facility] [address] [place] [address] Carol Whelan [address] [place] [address] Iron deficiency anemia, not otherwise [...] [facility] [address] [place] [address] Barry Reyes MD [address] [place] [address] documented as of this encounter Visit Diagnoses Diagnosis Iron deficiency anemia, not otherwise specified Chronic kidney disease, Stage II (mild) documented in this encounter Care Teams Pediatric Psychiatrist Relationship Specialty Start Date End Date Sahra Son MD [address]50 [place] [address] PCP - General Internal Medicine 10/28/22 documented as of this encounter
--- OUTSIDE RECORDS SUMMARY | 2025-04-19 09:11 | XMS_ITS | Encounter Summary ---
Author Organization [facility] Address [address] [place] [address] Phone Care Team Providers Care Pole Framer Name Role Phone Sahra Son MD Primary Care Provider + Encounter Details Date Type Department Care Team (Late st Contact Info) Description 06/09/2024 Orders Only [facility] [address] [place] [address] India Davalos [address] [place] [address] Anemia in chronic kidney disease; [...] [facility] [address] [place] [address] Barry Reyes MD [address] [place] [address] documented as of this encounter Visit Diagnoses Diagnosis Anemia in chronic kidney disease Other iron deficiency anemia Chronic kidney disease, stage 2 (mild) documented in this encounter Care Teams Pole Framer Relationship Specialty Start Date End Date Sahra Son MD [facility] [place] [address] PCP - General Internal Medicine 10/28/22 documented as of this encounter
--- OUTSIDE RECORDS SUMMARY | 2025-04-19 09:11 | XMS_ITS | Encounter Summary ---
Author Organization [facility] Address [address] [place] [address] Phone Care Team Providers Care Burling And Joining Supervisor Name Role Phone Sahra Son MD Primary Care Provider + Encounter Details Date Type Department Care Team ([facility] Contact Info) Description 09/28/2022 Documentation Only [facility] [address] [place] [address] India Davalos [address] [place] [address] Social History Tobacco Use Types [...] Team ([facility] Contact Info) Description 06/05/2025 2:50 PM EST Office Visit [facility] [address] [place] [address] Barry Reyes MD [address] [place] [address] [place] [address] documented as of this encounter Visit Diagnoses Not on filedocumented in this encounter Care Teams Burling And Joining Supervisor Relationship Specialty Start Date End Date Sahra Son MD NPI: [id number] [place] [address] PCP - General Internal Medicine 10/28/22 documented as of this encounter
--- OUTSIDE RECORDS SUMMARY | 2025-04-19 09:11 | XMS_ITS | Encounter Summary ---
Author Organization [facility] Address [address] [place] [address] Phone Care Team Providers Care Sole Buffer Name Role Phone Sarha Son MD Primary Care Provider + Encounter Details Date Type Department Care Team ([facility] Contact Info) Description 08/25/2024 Documentation Only [facility] [address] [place] [address] India Davalos [address] [place] [address] Social History Tobacco Use Types [...] [facility] [address] [place] [address] Barry Reyes MD [address] [place] [address] [place] [address] documented as of this encounter Visit Diagnoses Not on filedocumented in this encounter Care Teams Sole Buffer Relationship Specialty Start Date End Date Sahra Son MD [address] [address] PCP - General Internal Medicine 10/28/22 documented as of this encounter
--- OUTSIDE RECORDS SUMMARY | 2025-04-19 09:11 | XMS_ITS | Encounter Summary ---
Author Organization [facility] Address [address] [place] [address] Phone Care Team Providers Care Bat Person Name Role Phone Sahra Son MD Primary Care Provider + Encounter Details Date Type Department Care Team (Late st Contact Info) Description 03/22/2024 Documentation Only [facility] [place], [address] [place] [address] India Davalos [address] [place], [place] [...] Upcoming Encounters Date Type Department Care Team ([facility] st Contact Info) Description 06/05/2025 2:50 PM EST Office Visit [facility] [place], [address] [place] [address] Barry Reyes MD [address] [place] [address] [place] [address] documented as of this encounter Visit Diagnoses Not on filedocumented in this encounter Care Teams Bat Person Relationship Specialty Start Date End Date Sahra Son MD [address] [address] PCP - General Internal Medicine 10/28/22 documented as of this encounter
--- OUTSIDE RECORDS SUMMARY | 2025-04-19 09:11 | XMS_ITS | Encounter Summary ---
Author Organization [facility] Address [address] [place] [address] Phone Care Team Providers Care Capacity Management Specialist Name Role Phone Sahra Son MD Primary Care Provider + Encounter Details Date Type Department Care Team ([facility] Contact Info) Description 08/28/2024 Documentation Only [facility] [address] [place] [address] India Davalos [address] [place] [address] Social History Tobacco Use Types [...] [facility] [address] [place] [address] Barry Reyes MD [address] [place] [address] [place] [address] documented as of this encounter Visit Diagnoses Not on filedocumented in this encounter Care Teams Capacity Management Specialist Relationship Specialty Start Date End Date Sahra Son MD [address] [address] PCP - General Internal Medicine 10/28/22 documented as of this encounter
--- OUTSIDE RECORDS SUMMARY | 2025-04-19 09:11 | XMS_ITS | Encounter Summary ---
Author Organization [facility] Address [address] [place] [address] Phone Care Team Providers Care Control And Recovery Special Tactics Name Role Phone Sahra Son MD Primary Care Provider + Encounter Details Date Type Department Care Team (Late Contact Info) Description 02/04/2024 Orders Only [facility] [address] [place] [address] India Davalos [address] [place] [address] Chronic kidney disease, stage 2 [...] Visit [facility] [address] [place] [address] Barry Reyes MD [address] [place] [address] [place] [address] documented [...] 169(H) 70 - 99 mg/dL [facility] BUN 16 8 - 27 mg/dL [facility] Creatinine 1.00 0.57 - 1.00 mg/dL [facility] eGFR CKD-EPI CR 2020 63 >59 mL/min/1.7 3 [facility] BUN/Creatinine Ratio 16 12 - 28 [facility] Sodium 138 134 - 144 mmol/L [facility] Potassium 4.8 3.5 - 5.2 mmol/L [facility] Chloride 100 96 - 106 mmol/L [facility] Bicarbonate (CO2) 22 20 - 29 mmol/L [facility] Calcium 9.1 8.7 - 10.3 mg/dL [facility] Albumin 4.1 3.9 - 4.9 g/dL [facility] Phosphorus 4.2 3.0 - 4.3 mg/dL [facility] Blood specimen (specimen) Venous blood / Unknown 02/22/2024 8:29 AM EDT 02/22/2024 Barry Reyes MD LAB BLOOD ORDERABLES Final Re sult Performing Organization Address City/[facility]/ZIP Co de Phone Number [facility] [address] [place] [address] * Ferritin (02/22/2024 8:29 AM EDT) Ferritin 47 15 - 150 ng/mL [facility] Blood specimen (specimen) Venous blood / Unknown 02/22/2024 8:29 AM EDT 02/22/2024 Barry Reyes MD LAB BLOOD ORDERABLES Final Re sult Performing Organization Address [facility] de Phone Number [facility] [address] [place] [address] * (ABNORMAL) Iron Panel (Fe, TIBC, TSAT) (02/22/2024 8:29 AM EDT) Iron 39 27 - 139 ug/dL [facility] TIBC 310 250 - 450 ug/dL [facility] UIBC 271 118 - 369 ug/dL [facility] Iron Saturation (TSat) 13(L) 15 - 55 % [facility] Blood specimen (specimen) Venous blood / Unknown 02/22/2024 8:29 AM EDT 02/22/2024 Barry Reyes MD LAB BLOOD ORDERABLES Final Re sult Performing Organization Address City/[facility]/ZIP Co de Phone Number [facility] [address] [place] [address] * (ABNORMAL) CBC and Differential (02/22/2024 8:29 AM EDT) [facility] WBC 5.9 3.4 - 10.8 x10E3/uL [facility] RBC 5.33(H) 3.77 - 5.28 x10E6/uL [facility] Hemoglobin 10.3(L) 11.1 - 15.9 g/dL [facility] Hematocrit 35.1 34.0 - 46.6 % [facility] MCV 66(L) 79 - 97 fL [facility] MCH 19.3(L) 26.6 - 33.0 pg [facility] MCHC 29.3(L) 31.5 - 35.7 g/dL [facility] RDW 19.3(H) 11.7 - 15.4 % [facility] Platelets 174 150 - 450 x10E3/uL [facility] Neutrophils Relative 71 Not Estab. % [facility] Lymphocytes Relative 21 Not Estab. % [facility] Monocytes 5 Not Estab. % [facility] Eosinophils Relative 1 Not Estab. % [facility] Basophils Relative 1 Not Estab. % [facility] Neutrophils Absolute 4.2 1.4 - 7.0 x10E3/uL [facility] Lymphocytes Absolute 1.3 0.7 - 3.1 x10E3/uL [facility] Monocytes Absolute 0.3 0.1 - 0.9 x10E3/uL [facility] Eosinophils Absolute 0.1 0.0 - 0.4 x10E3/uL [facility] Basophils Absolute 0.0 0.0 - 0.2 x10E3/uL [facility] Immature Granulocytes 1 Not Estab. % [facility] Immature Grans (Absolute) 0.0 0.0 - 0.1 x10E3/uL [facility] Blood specimen (specimen) Venous blood / Unknown 02/22/2024 8:29 AM EDT 02/22/2024 us Barry Reyes MD LAB BLOOD ORDERABLES Final Re sult [facility] [address] [place] [address] documented in this encounter Visit Diagnoses Diagnosis Chronic kidney disease, stage 2 (mild) Anemia in chronic kidney disease Iron deficiency anemia, not otherwise specified documented in this encounter Care Teams Control And Recovery Special Tactics Relationship Specialty Start Date End Date Sahra Son MD [address] [place] [address] PCP - General Internal Medicine 10/28/22 documented as of this encounter
--- OUTSIDE RECORDS SUMMARY | 2025-04-19 09:11 | XMS_ITS | Encounter Summary ---
Author Organization [facility] Address [address] [place] [address] Phone Care Team Providers Care Microchip Specialist Name Role Phone Sahra Son MD Primary Care Provider + Encounter Details Date Type Department Care Team ([facility] Contact Info) Description 06/16/2022 Documentation Only [facility] [address] [place] [address] India Davalos [address] [place] [address] Social History Tobacco Use Types [...] ([facility] Contact Info) Description 06/05/2025 2:50 PM EST Office Visit [facility] [address] [place] [address] Barry Reyes MD [address] [place] [address] [place] [address] documented as of this encounter Visit Diagnoses Not on filedocumented in this encounter Care Teams Microchip Specialist Relationship Specialty Start Date End Date Sahra Son MD NPI: [id number] [place] [address] PCP - General Internal Medicine 10/28/22 documented as of this encounter
--- OUTSIDE RECORDS SUMMARY | 2025-04-19 09:11 | XMS_ITS | Encounter Summary ---
Author Organization [facility] Address [address] [place] [address] Phone Care Team Providers Care Management Consultant Name Role Phone Sahra Son MD Primary Care Provider + Encounter Details Date Type Department Care Team ([facility] Contact Info) Description 01/04/2024 Documentation Only [facility] [address] [place] [address] India Davalos [address] [place] [address] Social History Tobacco Use Types [...] [facility] [address] [place] [address] Barry Reyes MD [address] [place] [address] [place] [address] documented as of this encounter Visit Diagnoses Not on filedocumented in this encounter Care Teams Management Consultant Relationship Specialty Start Date End Date Sahra Son MD [address] [address] PCP - General Internal Medicine 10/28/22 documented as of this encounter
--- OUTSIDE RECORDS SUMMARY | 2025-04-19 09:11 | XMS_ITS | Encounter Summary ---
Author Organization [facility] Address [address] [place] [address] Phone Care Team Providers Care Mathematics Department Chair Name Role Phone Sahra Son MD Primary Care Provider + Encounter Details Date Type Department Care Team (Late Contact Info) Description 08/18/2024 Orders Only [facility] [address] [place] [address] India Davalos [address] [place] [address] Chronic kidney disease, stage 2 [...] Transplant [facility] [address] [place] [address] Barry Reyes MD [address] [place] [address] [place] [address] documented as of this encounter Visit Diagnoses Diagnosis Chronic kidney disease, stage 2 (mild) Anemia in chronic kidney disease Iron deficiency anemia, not otherwise specified documented in this encounter Care Teams Mathematics Department Chair Relationship Specialty Start Date End Date Sahra Son MD [address] [place] [address] PCP - General Internal Medicine 10/28/22 documented as of this encounter
--- OUTSIDE RECORDS SUMMARY | 2025-04-19 09:11 | XMS_ITS | Encounter Summary ---
Author Organization [facility] Address [address] [place] [address] Phone Care Team Providers Care Supervisor Tunnel Heading Name Role Phone Sahra Son MD Primary Care Provider + Encounter Details Date Type Department Care Team ([facility] Contact Info) Description 06/18/2021 Documentation Only [facility] [address] [place] [address] India Davalos [address] [place] [address] Social History Tobacco Use Types [...] [facility] [address] [place] [address] Barry Reyes MD [address] [place] [address] [place] [address] documented as of this encounter Visit Diagnoses Not on filedocumented in this encounter Care Teams Supervisor Tunnel Heading Relationship Specialty Start Date End Date Sahra Son MD [address] [address] PCP - General Internal Medicine 10/28/22 documented as of this encounter
--- OUTSIDE RECORDS SUMMARY | 2025-04-19 09:11 | XMS_ITS | Encounter Summary ---
Author Organization [facility] Address [address] [place] [address] Phone Care Team Providers Care Fish Boning Machine Feeder Name Role Phone Sahra Son MD Primary Care Provider + Encounter Details Date Type Department Care Team ([facility] Contact Info) Description 03/23/2024 Documentation Only [facility] [address] [place] [address] India Davalos [address] [place] [address] Social History Tobacco Use [...] [facility] [address] [place] [address] Barry Reyes MD [address] [place] [address] [place] [address] documented as of this encounter Visit Diagnoses Not on filedocumented in this encounter Care Teams Fish Boning Machine Feeder Relationship Specialty Start Date End Date Sahra Son MD [address] [address] PCP - General Internal Medicine 10/28/22 documented as of this encounter
--- OUTSIDE RECORDS SUMMARY | 2025-04-19 09:11 | XMS_ITS | Encounter Summary ---
Author Organization [facility] Address [address] [place] [address] Phone Care Team Providers Care Residential Sales Consultant Name Role Phone Sahra Son MD Primary Care Provider + Encounter Details Date Type Department Care Team ([facility] Contact Info) Description 06/22/2022 Documentation Only [facility] [address] [place] [address] India Davalos [address] [place], [place] [...] [facility] [address] [place] [address] Barry Reyes MD [address] [place] [address] [place] [address] documented as of this encounter Visit Diagnoses Not on filedocumented in this encounter Care Teams Residential Sales Consultant Relationship Specialty Start Date End Date Sahra Son MD [address] [address] PCP - General Internal Medicine 10/28/22 documented as of this encounter
--- OUTSIDE RECORDS SUMMARY | 2025-04-19 09:11 | XMS_ITS | Encounter Summary ---
Author Organization [facility] Address [address] [place] [address] Phone Care Team Providers Care Estate Agent Name Role Phone Sahra Son MD Primary Care Provider + Encounter Details Date Type Department Care Team ([facility] Contact Info) Description 09/28/2022 Documentation Only [facility] [address] [place] [address] India Davalos [address] [place] [address] Social History Tobacco Use [...] Team ([facility] Contact Info) Description 06/05/2025 2:50 PM EST Office Visit [facility] [address] [place] [address] Barry Reyes MD [address] [place] [address] [place] [address] documented as of this encounter Visit Diagnoses Not on filedocumented in this encounter Care Teams Estate Agent Relationship Specialty Start Date End Date Sahra Son MD NPI: [id number] [place] [address] PCP - General Internal Medicine 10/28/22 documented as of this encounter
--- OUTSIDE RECORDS SUMMARY | 2025-04-19 09:12 | XMS_ITS | Encounter Summary ---
Author Organization [facility] Address [address] [place] [address] Phone Care Team Providers Care Dry Goods Inspector Name Role Phone Sahra Son MD Primary Care Provider + Encounter Details Date Type Department Care Team ([facility] Contact Info) Description 01/29/2023 Documentation Only [facility] Of [address] [place] [address] India Davalos [address] [place] [address] Social History Tobacco Use Types [...] [facility] [address] [place] [address] Barry Reyes MD [address] [place] [address] [place] [address] documented as of this encounter Visit Diagnoses Not on filedocumented in this encounter Care Teams Dry Goods Inspector Relationship Specialty Start Date End Date Sahra Son MD [address] [address] PCP - General Internal Medicine 10/28/22 documented as of this encounter
--- OUTSIDE RECORDS SUMMARY | 2025-04-19 09:12 | XMS_ITS | Encounter Summary ---
Author Organization [facility] Address [address] [place] [address] Phone Care Team Providers Care Log Feeder Name Role Phone Sahra Son MD Primary Care Provider + Encounter Details Date Type Department Care Team ([facility] Contact Info) Description 03/11/2023 Documentation Only [facility] [address] [place] [address] India Davalos [address] [place] [address] Social History Tobacco Use Types [...] Upcoming Encounters Date Type Department Care Team ([facility] Contact Info) Description 06/05/2025 2:50 PM EST Office Visit [facility] [address] [place] [address] Barry Ryees MD [address] [place] [address] [place] [address] documented as of this encounter Visit Diagnoses Not on filedocumented in this encounter Care Teams Log Feeder Relationship Specialty Start Date End Date Sahra Son MD [address] [address] PCP - General Internal Medicine 10/28/22 documented as of this encounter
--- OUTSIDE RECORDS SUMMARY | 2025-04-19 09:12 | XMS_ITS | Encounter Summary ---
Author Organization [facility] Address [address] [place] [address] Phone Care Team Providers Care Baggage Screener Name Role Phone Sahra Son MD Primary Care Provider + Encounter Details Date Type Department Care Team ([facility] Contact Info) Description 11/19/2023 Documentation Only [facility] [address] [place] [address] India Davalos [address] [place] [address] Social History Tobacco Use Types [...] [facility] [address] [place] [address] Barry Reyes MD [address] [place] [address] [place] [address] documented as of this encounter Visit Diagnoses Not on filedocumented in this encounter Care Teams Baggage Screener Relationship Specialty Start Date End Date Sahra Son MD [address] [address] PCP - General Internal Medicine 10/28/22 documented as of this encounter
--- OUTSIDE RECORDS SUMMARY | 2025-04-19 09:12 | XMS_ITS | Encounter Summary ---
Author Organization [facility] [place], Address [address] [place] [address] Phone Care Team Providers Care Transport Pilot Name Role Phone Sahra Son MD Primary Care Provider + Encounter Details Date Type Department Care Team (Late st Contact Info) Description 12/23/2021 Documentation Only [facility] [place], [address] [facility] [place] [address] Juan Jose iL MD [address] [facility] [place] [address] Social History Tobacco Use Types [...] Visit [facility] [place], [address] [place] [phone] Barry Reyes MD [address] [place] [address] [place] [address] documented as of this encounter Visit Diagnoses Not on filedocumented in this encounter Care Teams Transport Pilot Relationship Specialty Start Date End Date Sahra Son MD [address] [address] PCP - General Internal Medicine 10/28/22 documented as of this encounter
--- OUTSIDE RECORDS SUMMARY | 2025-04-19 09:12 | XMS_ITS | Encounter Summary ---
Author Organization [facility] Address [address] [place] [address] Phone Care Team Providers Care Engineering Design Manager Name Role Phone Sahra Son MD Primary Care Provider + Encounter Details Date Type Department Care Team ([facility] Contact Info) Description 11/17/2023 Documentation Only [facility] [address] [place] [address] India Davalos [address] [place] [address] Social History Tobacco Use Types [...] [facility] [address] [place] [address] Barry Reyes MD [address] [place] [address] [place] [address] documented as of this encounter Visit Diagnoses Not on filedocumented in this encounter Care Teams Engineering Design Manager Relationship Specialty Start Date End Date Sahra Son MD [address] [address] PCP - General Internal Medicine 10/28/22 documented as of this encounter
--- OUTSIDE RECORDS SUMMARY | 2025-04-19 09:12 | XMS_ITS | Encounter Summary ---
Author Organization [facility] Address [address] [place] [address] Phone Care Team Providers Care Assembler Chassis Name Role Phone Sahra Son MD Primary Care Provider + Encounter Details Date Type Department Care Team (Late Contact Info) Description 09/15/2024 Orders Only [facility] [address] [place] [address] India Davalos 2[address] [place] [address] Chronic kidney disease, stage 2 [...] Visit [facility] [address] [address] [place] [place] [address] Barry Reyes MD [address] [place] [address] [place] [address] documented as of this encounter Visit Diagnoses Diagnosis Chronic kidney disease, stage 2 (mild) Anemia in chronic kidney disease Iron deficiency anemia, not otherwise specified documented in this encounter Care Teams Assembler Chassis Relationship Specialty Start Date End Date Sahra Son MD 3550 [place] [address] PCP - General Internal Medicine 10/28/22 documented as of this encounter
--- OUTSIDE RECORDS SUMMARY | 2025-04-19 09:12 | XMS_ITS | Encounter Summary ---
Author Organization [facility] Address [address] [place] [address] Phone Care Team Providers Care Bag Machine Tender Name Role Phone Sahra Son MD Primary Care Provider + Encounter Details Date Type Department Care Team ([facility] Contact Info) Description 11/11/2023 Documentation Only [facility] [address] [place] [address] India Davalso 2[address] [place] [address] Social History Tobacco Use Types [...] Upcoming Encounters Date Type Department Care Team ([facility] Contact Info) Description 06/05/2025 2:50 PM EST Office Visit [facility] [address] [place] [address] Barry Reyes MD [address] [place] [address] [place] [address] documented as of this encounter Visit Diagnoses Not on filedocumented in this encounter Care Teams Bag Machine Tender Relationship Specialty Start Date End Date Sahra Son MD NPI: [id number] [place] [address] PCP - General Internal Medicine 10/28/22 documented as of this encounter
--- OUTSIDE RECORDS SUMMARY | 2025-04-19 09:12 | XMS_ITS | Encounter Summary ---
Author Organization [facility] Address [address] [place] [address] Phone Care Team Providers Care Director Shopper Marketing Name Role Phone Sahra Son MD Primary Care Provider + Encounter Details Date Type Department Care Team ([facility] Contact Info) Description 11/30/2023 Documentation Only [facility] [address] [place] [address] India Davalos [address] [place] [address] Social History Tobacco Use Types [...] [facility] [address] [place] [address] Barry Reyes MD [address] [place] [address] [place] [address] documented as of this encounter Visit Diagnoses Not on filedocumented in this encounter Care Teams Director Shopper Marketing Relationship Specialty Start Date End Date Sahra Son MD [address] [address] PCP - General Internal Medicine 10/28/22 documented as of this encounter
--- OUTSIDE RECORDS SUMMARY | 2025-04-19 09:12 | XMS_ITS | Encounter Summary ---
Author Organization [facility] Address [address] [place] [address] Phone Care Team Providers Care Dub Room Engineer Name Role Phone Sahra Son MD Primary Care Provider + Encounter Details Date Type Department Care Team ([facility] Contact Info) Description 07/16/2023 Documentation Only [facility] [address] [place] [address] India Davalos [address] [place] [address] Social History Tobacco Use [...] [facility] [address] [place] [address] Barry Reyes MD [address] [place] [address] [place] [address] documented as of this encounter Visit Diagnoses Not on filedocumented in this encounter Care Teams Dub Room Engineer Relationship Specialty Start Date End Date Sahra Son MD [address] [address] PCP - General Internal Medicine 10/28/22 documented as of this encounter
--- OUTSIDE RECORDS SUMMARY | 2025-04-19 09:12 | XMS_ITS | Encounter Summary ---
Author Organization [facility] Address [address] [place] [address] Phone Care Team Providers Care Drugless Doctor Name Role Phone Sahra Son MD Primary Care Provider + Encounter Details Date Type Department Care Team ([facility] Contact Info) Description 11/11/2023 Documentation Only [facility] [address] [place] [address] India Davalos [address] [place] [address] Social History Tobacco Use Types [...] Team ([facility] Contact Info) Description 06/05/2025 2:50 PM EST Office Visit [facility] [address] [place] [address] Barry Reyes MD [address] [place] [address] [place] [address] documented as of this encounter Visit Diagnoses Not on filedocumented in this encounter Care Teams Drugless Doctor Relationship Specialty Start Date End Date Sahra Son MD NPI: [id number] [place] [address] PCP - General Internal Medicine 10/28/22 documented as of this encounter
--- OUTSIDE RECORDS SUMMARY | 2025-04-19 09:12 | XMS_ITS | Encounter Summary ---
Author Organization [facility] Address [address] [place] [address] Phone Care Team Providers Care Treating Engineer Helper Name Role Phone Sahra Son MD Primary Care Provider + Encounter Details Date Type Department Care Team ([facility] Contact Info) Description 12/24/2022 Documentation Only [facility] [address] [place] [place] [address] Carol Whelan [address] [place] [address] Social History Tobacco Use Types [...] [facility] [address] [place] [place] [address] Barry Reyes MD [address] [place] [address] [place] [address] documented as of this encounter Visit Diagnoses Not on filedocumented in this encounter Care Teams Treating Engineer Helper Relationship Specialty Start Date End Date Sahra Son MD [address] [address] PCP - General Internal Medicine 10/28/22 documented as of this encounter
--- OUTSIDE RECORDS SUMMARY | 2025-04-19 09:12 | XMS_ITS | Encounter Summary ---
Author Organization [facility] Address [address] [place] [address] Phone Care Team Providers Care Pharmaceutical Sales Specialist Name Role Phone Sahra Son MD Primary Care Provider + Encounter Details Date Type Department Care Team ([facility] Contact Info) Description 07/16/2023 Documentation Only [facility] [address] [place] [address] India Davalos [address] [place] [address] Social History Tobacco Use Types [...] [facility] [address] [place] [address] Barry Reyes MD [address] [place] [address] [place] [address] documented as of this encounter Visit Diagnoses Not on filedocumented in this encounter Care Teams Pharmaceutical Sales Specialist Relationship Specialty Start Date End Date Sahra Son MD [address] [address] PCP - General Internal Medicine 10/28/22 documented as of this encounter
--- OUTSIDE RECORDS SUMMARY | 2025-04-19 09:12 | XMS_ITS | Encounter Summary ---
Author Organization [facility] Address [address] [place] [address] Phone Care Team Providers Care Filament Tester Name Role Phone Sahra Son MD Primary Care Provider + Encounter Details Date Type Department Care Team ([facility] Contact Info) Description 03/11/2023 Documentation Only [facility] [address] [place] [address] India Davalos 2[address] [place] [address] Social History Tobacco Use Types [...] [facility] Description 06/05/2025 2:50 PM EST Office Visit [facility] [address] [place] [address] Barry Reyes MD [address] [place] [address] [place] [address] documented as of this encounter Visit Diagnoses Not on filedocumented in this encounter Care Teams Filament Tester Relationship Specialty Start Date End Date Sahra Son MD [address] [address] PCP - General Internal Medicine 10/28/22 documented as of this encounter
--- OUTSIDE RECORDS SUMMARY | 2025-04-19 09:12 | XMS_ITS | Encounter Summary ---
Author Organization [facility] Address [address] [place] [address] Phone Care Team Providers Care Inside Sales Recruiter Name Role Phone Sahra Son MD Primary Care Provider + Encounter Details Date Type Department Care Team ([facility] Contact Info) Description 10/07/2021 Documentation Only [facility] [address] [place] [address] India Davalos 2[address] [place] [address] Social History Tobacco Use Types [...] [facility] Contact Info) Description 06/05/2025 2:50 PM EST Office Visit [facility] [address] [place] [address] Barry Reyes MD [address] [place] [address] [place] [address] documented as of this encounter Visit Diagnoses Not on filedocumented in this encounter Care Teams Inside Sales Recruiter Relationship Specialty Start Date End Date Sarha Son MD NPI: [id number] [place] [address] PCP - General Internal Medicine 10/28/22 documented as of this encounter
--- OUTSIDE RECORDS SUMMARY | 2025-04-19 09:12 | XMS_ITS | Encounter Summary ---
Author Organization [facility] Address [address] [place] [address] Phone Care Team Providers Care Associate Professor Of Education Name Role Phone Sahra Son MD Primary Care Provider + Encounter Details Date Type Department Care Team ([facility] [address] Contact Info) Description 06/09/2023 Documentation Only [facility] [address] [place] [address] India Davalos [address] [place] [address] Social History Tobacco Use Types [...] [facility] [address] [place] [address] Barry Reyes MD [address] [place] [address] [place] [address] documented as of this encounter Visit Diagnoses Not on filedocumented in this encounter Care Teams Associate Professor Of Education Relationship Specialty Start Date End Date Sahra Son MD [address] [address] PCP - General Internal Medicine 10/28/22 documented as of this encounter
--- OUTSIDE RECORDS SUMMARY | 2025-04-19 09:12 | XMS_ITS | Encounter Summary ---
Author Organization [facility] Address [address] [place] [address] Phone Care Team Providers Care Casting Finisher Name Role Phone Sahra Son MD Primary Care Provider + Encounter Details Date Type Department Care Team (Late st Contact Info) Description 08/22/2021 Documentation Only [facility] [place], [address] [place] [address] India Davalos [address] [place] [address] Social History Tobacco Use Types [...] [facility] [address] [place] [address] Barry Reyes MD [address] [place] [address] [place] [address] documented as of this encounter Visit Diagnoses Not on filedocumented in this encounter Care Teams Casting Finisher Relationship Specialty Start Date End Date Sahra Son MD [address] [address] PCP - General Internal Medicine 10/28/22 documented as of this encounter
--- OUTSIDE RECORDS SUMMARY | 2025-04-19 09:12 | XMS_ITS | Encounter Summary ---
Author Organization [facility] Address [address] [place] [address] Phone Care Team Providers Care Fermentation Engineer Name Role Phone Sahra Son MD Primary Care Provider + Encounter Details Date Type Department Care Team ([facility] Contact Info) Description 08/05/2023 Documentation Only [facility] [address] [place] [address] India Davalos [address] [place] [address] Social History Tobacco Use Types [...] [facility] [address] [place] [address] Barry Reyes MD [address] [place] [address] [place] [address] documented as of this encounter Visit Diagnoses Not on filedocumented in this encounter Care Teams Fermentation Engineer Relationship Specialty Start Date End Date Sahra Son MD [address] [address] PCP - General Internal Medicine 10/28/22 documented as of this encounter
--- OUTSIDE RECORDS SUMMARY | 2025-04-19 09:12 | XMS_ITS | Encounter Summary ---
Author Organization [facility] Address [address] [place] [address] Phone Care Team Providers Care Utility Worker Name Role Phone Sahra Son MD Primary Care Provider + Encounter Details Date Type Department Care Team ([facility] Contact Info) Description 11/11/2023 Documentation Only [facility] [address] [place] [address] India Davalos [address] [place] [address] Social History Tobacco Use Types [...] Upcoming Encounters Date Type Department Care Team ([facility] Contact Info) Description 06/05/2025 2:50 PM EST Office Visit [facility] [address] [place] [address] Barry Reyes MD [address] [place] [address] [place] [address] documented as of this encounter Visit Diagnoses Not on filedocumented in this encounter Care Teams Utility Worker Relationship Specialty Start Date End Date Sahra Son MD NPI: [id number] [place] [address] PCP - General Internal Medicine 10/28/22 documented as of this encounter
--- OUTSIDE RECORDS SUMMARY | 2025-04-19 09:12 | XMS_ITS | Encounter Summary ---
Author Organization [facility] Address [address] [place] [address] Phone Care Team Providers Care Graphics Manager Name Role Phone Sahra Son MD Primary Care Provider + Encounter Details Date Type Department Care Team ([facility] Contact Info) Description 11/11/2023 Documentation Only [facility] [address] [place] [address] India Davalos 2[address] [place], [place] [...] [facility] [address] [place] [address] Barry Reyes MD [address] [place] [address] [place] [address] documented as of this encounter Visit Diagnoses Not on filedocumented in this encounter Care Teams Graphics Manager Relationship Specialty Start Date End Date Sahra Son MD NPI: [id number] [place] [address] PCP - General Internal Medicine 10/28/22 documented as of this encounter
--- OUTSIDE RECORDS SUMMARY | 2025-04-19 09:12 | XMS_ITS | Encounter Summary ---
Author Organization [facility] Address [address] [place] [address] Phone Care Team Providers Care Dye Padder Operator Name Role Phone Sahra Son MD Primary Care Provider + Encounter Details Date Type Department Care Team ([facility] Contact Info) Description 03/11/2023 Documentation Only [facility] [address] [place] [address] India Davalos [address] [place] [address] Social History Tobacco Use [...] [facility] [address] [place] [address] Barry Reyes MD [address] [place] [address] [place] [address] documented as of this encounter Visit Diagnoses Not on filedocumented in this encounter Care Teams Dye Padder Operator Relationship Specialty Start Date End Date Sahra Son MD [address] [address] PCP - General Internal Medicine 10/28/22 documented as of this encounter
--- OUTSIDE RECORDS SUMMARY | 2025-04-19 09:12 | XMS_ITS | Encounter Summary ---
Author Organization [facility] Address [address] [place] [address] Phone Care Team Providers Care Telephone Sales Representative Name Role Phone Sahra Son MD Primary Care Provider + Encounter Details Date Type Department Care Team ([facility] [address] [facility] Contact Info) Description 08/09/2023 Documentation Only [facility] [address] [place] [address] India Davalos 2[address] [place], [place] [...] [facility] [address] [place] [address] Barry Reyes MD [address] [place] [address] [place] [address] documented as of this encounter Visit Diagnoses Not on filedocumented in this encounter Care Teams Telephone Sales Representative Relationship Specialty Start Date End Date Sahra Son MD [address] [address] PCP - General Internal Medicine 10/28/22 documented as of this encounter
--- OUTSIDE RECORDS SUMMARY | 2025-04-19 09:12 | XMS_ITS | Encounter Summary ---
Author Organization [facility] Address [address] [place] [address] Phone Care Team Providers Care Library Paraprofessional Name Role Phone Sahra oSn MD Primary Care Provider + Encounter Details Date Type Department Care Team ([facility] Contact Info) Description 08/27/2021 Documentation Only [facility] [address] [place] [address] India Davalos [address] [place] [address] Social History Tobacco Use Types [...] [facility] [address] [place] [address] Barry Reyes MD [address] [place] [address] [place] [address] documented as of this encounter Visit Diagnoses Not on filedocumented in this encounter Care Teams Library Paraprofessional Relationship Specialty Start Date End Date Sahra Son MD [address] [address] PCP - General Internal Medicine 10/28/22 documented as of this encounter
--- OUTSIDE RECORDS SUMMARY | 2025-04-19 09:12 | XMS_ITS | Encounter Summary ---
Author Organization [facility] Address [address] [place] [address] Phone Care Team Providers Care Nitriles Lab Technician Name Role Phone Sahra Son MD Primary Care Provider + Encounter Details Date Type Department Care Team ([facility] Contact Info) Description 11/11/2023 Documentation Only [facility] [address] [place] [address] India Davalos [address] [place] [address] Social History Tobacco Use Types [...] Upcoming Encounters Date Type Department Care Team ([facility] Contact Info) Description 06/05/2025 2:50 PM EST Office Visit [facility] [address] [place] [address] Barry Reyes MD [address] [place] [address] [place] [address] documented as of this encounter Visit Diagnoses Not on filedocumented in this encounter Care Teams Nitriles Lab Technician Relationship Specialty Start Date End Date Sahra Son MD NPI: [id number] [place] [address] PCP - General Internal Medicine 10/28/22 documented as of this encounter
--- OUTSIDE RECORDS SUMMARY | 2025-04-19 09:12 | XMS_ITS | Encounter Summary ---
Author Organization [facility] Address [address] [place] [address] Phone Care Team Providers Care Minesweeping Officer Name Role Phone Sahra Son MD Primary Care Provider + Encounter Details Date Type Department Care Team (Late st Contact Info) Description 05/17/2023 Orders Only [facility] [address] [place] [address] Arlene Alston PA [address] [place] [address] Chronic kidney disease, stage 2 [...] Services Of [facility] [address] [place] [address] Barry Reyes MD [address] [place] [address] documented [...] [facility] Iron Saturation (TSat) 17(L) (20-55) % [facility] Comment: Testing performed or reported by [facility], a Service of [address] [address] Luis A Bailey MD, [employer] CLIA# [id number] Blood specimen (specimen) Venous blood / Unknown 06/08/2023 8:36 AM EST 06/08/2023 8:39 AM EST Arleen CARTER LAB BLOOD ORDERABLES Final Re sult Performing Organization Address [facility] Co de Phone Number [facility] * Vitamin D 25 hydroxy (06/08/2023 8:36 AM EST) [facility] Vitamin D, 25-Hydroxy 24.8 (20-50) NG/ML [facility] Comment: Testing performed or reported by [facility], a Service of [facility], [address] [place] [address] Luis A Bailey MD, [employer] CLIA# [id number] Blood specimen (specimen) Venous blood / Unknown 06/08/2023 8:36 AM EST 06/08/2023 8:39 AM EST Arlene CARTER LAB BLOOD ORDERABLES Final Re sult Performing Organization Address City/[facility] Co de Phone Number [facility] * (ABNORMAL) Renal function panel (06/08/2023 8:36 AM EST) [facility] Glucose 166(H) (70-99) MG/DL [facility] BUN 19 (8-23) MG/DL [facility] Creatinine 1.0 (0.5-1.0) MG/DL [facility] Sodium 138 (133-145) MMOL/L [facility] Potassium 4.9 (3.6-5.2) MMOL/L [facility] Chloride 101 (98-107) MMOL/L [facility] Bicarbonate (CO2) 27 (22-29) MMOL/L [facility] Anion Gap 10 (4-17) [facility] Albumin 4.2 (3.4-4.8) GM/DL [facility] Calcium 9.1 (8.6-10.5) MG/DL [facility] Phosphorus, Serum 3.4 (2.5-4.5) MG/DL [facility] Est GFR Non 66 ML/MIN/1.7 3 M2 [facility] Comment: Creatinine based estimated glomerular filtration (eGFR) in adults is calculated using the National Kidney Foundation recommended 2020 CKD-EPI equation. Estimates GFR from serum creatinine, age and sex. Testing performed or reported by [facility], a Service of [address] [address] Luis A Bailey MD, [employer] CLIA# [id number] Blood specimen (specimen) Venous blood / Unknown 06/08/2023 8:36 AM EST 06/08/2023 8:39 AM EST Arlene CARTER LAB BLOOD ORDERABLES Final Re sult Performing Organization Address [facility] de Phone Number [facility] * Magnesium (06/08/2023 8:36 AM EST) Magnesium 2.1 (1.6-2.3) mg/dL [facility] Comment: Testing performed or reported by [facility], a Service of [address] [address] Luis A Bailey MD, [employer] CLIA# [id number] Blood specimen (specimen) Venous blood / Unknown 06/08/2023 8:36 AM EST 06/08/2023 8:39 AM EST Arlene CARTER LAB BLOOD ORDERABLES Final Re sult [facility] * (ABNORMAL) Hemoglobin A1c (06/08/2023 8:36 AM EST) Hemoglobin A1C 7.2(H) (4.0-5.6) % [facility] Comment: MONITORING: In known diabetic patients, hemoglobin A1c targets should be discussed with health care provider. DIAGNOSTIC USE: The [place] Diabetes Association (ADA) and the World Health [...] Supplement 1 Testing performed or reported by [facility], a Service of [facility], [address] [place] [address] Luis A Bailey MD, [employer] [facility]# [id number] Blood specimen (specimen) Venous blood / Unknown 06/08/2023 8:36 AM EST 06/08/2023 8:38 AM EST Arlene CARTER LAB BLOOD ORDERABLES Final Re sult [facility] * (ABNORMAL) CBC and differential (06/08/2023 8:36 AM EST) White Blood Cells 5.2 (4.0-11.0 ) K/MM3 [facility] RBC 5.08 (4.20-5.4 0) M/MM3 [facility] Hgb 10.1(L) (11.7-15. 5) GM/DL [facility] Hematocrit 32.9(L) (35.7-45. 8) % [facility] MCV 64.8(L) (80.0-100 .0) FL [facility] MCH 19.9(L) (27.0-34. 0) PG [facility] MCHC 30.7(L) (33.0-37. 0) g/dL [facility] Platelets 191 (150-460) K/MM3 [facility] RDW-SD 40.3 (<47.0) FL [facility] MPV NOT MEASURED (9.4-12.4 ) [place] [facility] nRBC Count 0.0 #/100 WBC'S [facility] NRBC Absolute 0.0 K/MM3 [facility] Neutrophils Abs Auto 3.5 (1.3-7.0) K/MM3 [facility] [...] [facility] Comment: Testing performed or reported by [facility], a Service of [facility], [address] [place] [address] Luis A Bailey MD, [employer] [facility]# [id number] Blood specimen (specimen) Venous blood / Unknown 06/08/2023 8:36 AM EST 06/08/2023 8:38 AM EST Arlene CARTER LAB BLOOD ORDERABLES Final Re sult [facility] documented in this encounter Visit Diagnoses Diagnosis Chronic kidney disease, stage 2 (mild) Essential (primary) hypertension Anemia in chronic kidney disease Antiphospholipid syndrome (HCC) Type 2 diabetes mellitus, not otherwise specified (HCC) Bleeding hemorrhoids documented in this encounter Care Teams Minesweeping Officer Relationship Specialty Start Date End Date Sahra Son MD [address] [address] PCP - General Internal Medicine 10/28/22 documented as of this encounter
--- OUTSIDE RECORDS SUMMARY | 2025-04-19 09:12 | XMS_ITS | Encounter Summary ---
Author Organization [facility] Address [address] [place] [address] Phone Care Team Providers Care Postal Supervisor Name Role Phone Sahra Son MD Primary Care Provider + Encounter Details Date Type Department Care Team ([facility] Contact Info) Description 01/06/2022 Documentation Only [facility] [address] [place] [address] Juan Jose Li MD [address] [place] [address] [place] [address] Social History Tobacco Use Types [...] [facility] [address] [place] [address] Barry Reyes MD [address] [facility] [place] [address] documented as of this encounter Visit Diagnoses Not on filedocumented in this encounter Care Teams Postal Supervisor Relationship Specialty Start Date End Date Sahra Son MD [address] [address] PCP - General Internal Medicine 10/28/22 documented as of this encounter
--- OUTSIDE RECORDS SUMMARY | 2025-04-19 09:13 | XMS_ITS | Encounter Summary ---
Author Organization [facility] Address [address] [place] [address] Phone Care Team Providers Care Administrative And Program Specialist Name Role Phone Sahra Son MD Primary Care Provider + Encounter Details Date Type Department Care Team ([facility] Contact Info) Description 01/29/2023 Documentation Only [facility] [address] [place] [address] India Davalos [address] [place] [address] Social History Tobacco [...] [facility] [address] [place] [address] Barry Reyes MD [address] [place] [address] [place] [address] documented as of this encounter Visit Diagnoses Not on filedocumented in this encounter Care Teams Administrative And Program Specialist Relationship Specialty Start Date End Date Sahra Son MD [address] [address] PCP - General Internal Medicine 10/28/22 documented as of this encounter
--- OUTSIDE RECORDS SUMMARY | 2025-04-19 09:13 | XMS_ITS | Clinical Summary ---
Author Organization [facility] Address [address] [place] [address] Phone Care Team Providers Care Work Force Advisor Name Role Phone Sahra Son MD Primary Care Provider + Surgical History Surgery Date Site/Laterality Comments OTHER SURGICAL HISTORY 1975 PROCEDURE: ID [place] ECTOPIC ABDOMINAL/VAGINAL APPR PARTIAL HYSTERECTOMY PROCEDURE: ID SUPRACERVICAL ABDL HYSTER W/WO RMVL TUBE OVARY CHOLECYSTECTOMY 1982 PROCEDURE: HISTORICAL CHOLECYSTECTOMY CARPAL TUNNEL RELEASE 11/21/2014 Left PROCEDURE: HISTORICAL CARPAL TUNNEL REL BOWEL RESECTION 03/2004 PROCEDURE: HISTORICAL BOWEL RESECTION; COMMENT: bowel obstruction Medical History Medical History Date Comments Diverticulosis DX:Diverticulosi s CHF (congestive heart failur e) ([facility] V24, [facility] V28) DX:CHF (congestive heart fa ilure) ([facility]) COPD (chronic obstructive pu lmonary disease) ([facility] V24, [facility] V28) DX:COPD (chronic o bstructive pulmonary disease) ([facility]) Osteoporosis DX:Osteoporosis Fibromyalgia DX:Fibromyalgia Myelofibrosis ([facility] V24, [facility] V28) DX:Myelofibrosis ([facility]); COMM ENT: diagnosed 8 years ago, follows with DR layne Meningioma ([facility] V24, [facility] V28) DX:Meningioma ([facility]) Asthma DX:Asthma Gout DX:Gout Seizures ([facility] V24, [facility] V28) DX:Seizures ([facility]) Lupus DX:Lupus Depression DX:Depression; C OMMENT: follows at [facility] net at [facility] Hypercoagulable state ([facility] V24) DX:Hypercoagulable state ([facility]); COMMENT: on coumadin Neurogenic bladder DX:Neurogenic bladder; COMMENT: flowers dependent Supplemental oxygen dependent DX :Supplemental oxygen dependent Lung nodule 03/22/2017 DX:Lung nodule ALESSANDRA (obstructive sleep apnea) 03/22/2017 DX :ALESSANDRA (obstructive sleep apnea) GERD (gastroesophageal reflux disease) 03/22/2017 DX:GERD (gastroesophageal reflux disease) Anxiety 03/22/2017 DX:Anxiety Dementia ([facility] V24, [facility] V28) 03/22/2017 DX:Dementia (HCC) Schizophrenia ([facility] V24, [facility] V28) 03/22/2017 DX:Schizophrenia ([facility]) Glaucoma 03/22/2017 DX:Glaucoma History of stroke DX:History of stroke History of deep vein thrombosis DX:History of deep vein thrombosis Coronary artery disease DX:Coron christine artery disease; COMMENT: Old [place] Diabetes mellitus type 2 wit h neurological manifestations ([facility] V24, [facility] V28) DX:Diabetes mellitus type 2 with neurological manifestations ([facility]) Leukemia ([facility] V24, [facility] V28) 09/02/2017 DX:Leukemia ([facility]) MDS (myelodysplastic syndrom e) ([facility] V24, [facility] V28) 09/02/2017 DX:MDS (myelodysplastic syn drome) ([facility]) Hyperthyroidism 09/02/2017 DX:Hyperthyroidi sm History [...] EDT Consult Gastroenterology - [address] [facility] [address] [place] [id number] Deloris Vickers PA [address] [facility] [address] [place] [address] Health Maintenance Due Date Last Done Comments [...] Insurance [facility] Member Subscriber Plan / Payer (Ef fective 2024-Present) Name:Jennifer Schulz Relation to Subscriber:Self Name:Jennifer Schulz Payer ID:[id number] Group ID:[id number] Type:Not on file Address: [place] [address] [place] [address] Care Teams Work Force Advisor Relationship Specialty Start Date End Date Sahra Son MD [address] [place] [address] PCP - General Internal Medicine 11/15/24
--- OUTSIDE RECORDS SUMMARY | 2025-04-19 09:13 | XMS_ITS | Encounter Summary ---
Author Organization [facility] Address [address] [place] [address] Phone Care Team Providers Care Occupational Health Physician Name Role Phone Sahra Son MD Primary Care Provider + Encounter Details Date Type Department Care Team ([facility] Contact Info) Description 07/03/2021 Documentation Only [facility] [address] [place] [address] Juan Jose Li MD [address] [place] [address] [place] [address] Social History Tobacco Use Types [...] [facility] [address] [place] [address] Barry Reyes MD [address] [facility] [place] [address] documented as of this encounter Visit Diagnoses Not on filedocumented in this encounter Care Teams Occupational Health Physician Relationship Specialty Start Date End Date Sahra Son MD [address] [address] PCP - General Internal Medicine 10/28/22 documented as of this encounter
--- OUTSIDE RECORDS SUMMARY | 2025-04-19 09:13 | XMS_ITS | Encounter Summary ---
Author Organization [facility] Address [address] [place] [address] Phone Care Team Providers Care Sale Professional Digital Marketing Name Role Phone Sahra Son MD Primary Care Provider + Encounter Details Date Type Department Care Team ([facility] Contact Info) Description 06/25/2021 Documentation Only [facility] [address] [place] [address] India Davalos [address] [place] [address] Social History Tobacco Use Types [...] [facility] [address] [place] [address] Barry Reyes MD [address] [place] [address] [place] [address] documented as of this encounter Visit Diagnoses Not on filedocumented in this encounter Care Teams Sale Professional Digital Marketing Relationship Specialty Start Date End Date Sahra Son MD [address] [address] PCP - General Internal Medicine 10/28/22 documented as of this encounter
--- OUTSIDE RECORDS SUMMARY | 2025-04-19 09:13 | XMS_ITS | Encounter Summary ---
Author Organization [facility] Address [address] [place] [address] Phone Care Team Providers Care Funeral Planner Name Role Phone Sahra Son MD Primary Care Provider + Encounter Details Date Type Department Care Team ([facility] Contact Info) Description 12/18/2024 Documentation Only [facility] [address] [place] [address] India Davalos [address] [place] [address] Social History Tobacco Use [...] [facility] [address] [place] [address] Barry Reyes MD [address] [place] [address] [place] [address] documented as of this encounter Visit Diagnoses Not on filedocumented in this encounter Care Teams Funeral Planner Relationship Specialty Start Date End Date Sahra Son MD [address] [address] PCP - General Internal Medicine 10/28/22 documented as of this encounter
--- OUTSIDE RECORDS SUMMARY | 2025-04-19 09:13 | XMS_ITS | Encounter Summary ---
Author Organization [facility] Address [address] [place] [address] Phone Care Team Providers Care Picked Edge Sewing Machine Operator Name Role Phone Sahra Son MD Primary Care Provider + Encounter Details Date Type Department Care Team ([facility] Contact Info) Description 02/01/2023 Documentation Only [facility] [address] [place] [address] India Davalos [address] [place] [address] Social History Tobacco Use Types [...] [facility] [address] [place] [address] Barry Reyes MD [address] [place] [address] [place] [address] documented as of this encounter Visit Diagnoses Not on filedocumented in this encounter Care Teams Picked Edge Sewing Machine Operator Relationship Specialty Start Date End Date Sahra Son MD [address] [address] PCP - General Internal Medicine 10/28/22 documented as of this encounter
--- OUTSIDE RECORDS SUMMARY | 2025-04-19 09:14 | XMS_ITS | Encounter Summary ---
Author Organization [facility] Address [address] [place] [address] Phone Care Team Providers Care Supervisor Hard Candy Name Role Phone Sahra Son MD Primary Care Provider + Encounter Details Date Type Department Care Team (Late Contact Info) Description 05/26/2024 Orders Only [facility] [address] [place] [address] India Davalos [address] [place] [address] Chronic kidney disease, stage 2 [...] Visit [facility] [address] [place] [address] Barry Reyes MD [address] [place] [address] [place] [address] documented as of this encounter [...] Glucose 168(H) 70 - 99 mg/dL [facility] BUN 17 8 - 27 mg/dL [facility] Creatinine 1.09(H) 0.57 - 1.00 mg/dL [facility] eGFR CKD-EPI CR 2020 57(L) >59 mL/min/1.7 3 [facility] BUN/Creatinine Ratio 16 12 - 28 [facility] Sodium 137 134 - 144 mmol/L [facility] Potassium 4.8 3.5 - 5.2 mmol/L [facility] Chloride 99 96 - 106 mmol/L [facility] Bicarbonate (CO2) 23 20 - 29 mmol/L [facility] Calcium 9.0 8.7 - 10.3 mg/dL [facility] Albumin 4.2 3.9 - 4.9 g/dL [facility] Phosphorus 4.4(H) 3.0 - 4.3 mg/dL [facility] Blood specimen (specimen) Venous blood / Unknown 06/07/2024 11:53 AM EST 06/07/2024 Barry Reyes MD LAB BLOOD ORDERABLES Final Re sult Performing Organization Address City/[facility]/ZIP Co de Phone Number [facility] [address] [place] [address] * Ferritin (06/07/2024 11:53 AM EST) Ferritin 102 15 - 150 ng/mL [facility] Blood specimen (specimen) Venous blood / Unknown 06/07/2024 11:53 AM EST 06/07/2024 Barry Reyes MD LAB BLOOD ORDERABLES Final Re sult Performing Organization Address [facility] de Phone Number [facility] [address] [place] [address] * Iron Panel (Fe, TIBC, TSAT) (06/07/2024 11:53 AM EST) TIBC 262 250 - 450 ug/dL [facility] UIBC 205 118 - 369 ug/dL [facility] Iron 57 27 - 139 ug/dL [facility] Iron Saturation (TSat) 22 15 - 55 % [facility] Blood specimen (specimen) Venous blood / Unknown 06/07/2024 11:53 AM EST 06/07/2024 Barry Reyes MD LAB BLOOD ORDERABLES Final Re sult Performing Organization Address City/[facility]/ZIP Co de Phone Number [facility] [address] [place] [address] * (ABNORMAL) CBC and Differential (06/07/2024 11:53 AM EST) [facility] WBC 5.5 3.4 - 10.8 x10E3/uL [facility] RBC 5.76(H) 3.77 - 5.28 x10E6/uL [facility] Hemoglobin 11.1 11.1 - 15.9 g/dL [facility] Hematocrit 38.4 34.0 - 46.6 % [facility] MCV 67(L) 79 - 97 fL [facility] MCH 19.3(L) 26.6 - 33.0 pg [facility] MCHC 28.9(L) 31.5 - 35.7 g/dL [facility] RDW 18.8(H) 11.7 - 15.4 % [facility] Platelets 162 150 - 450 x10E3/uL [facility] Neutrophils Relative 59 Not Estab. % [facility] Lymphocytes Relative 31 Not Estab. % [facility] Monocytes 6 Not Estab. % [facility] Eosinophils Relative 2 Not Estab. % [facility] Basophils Relative 1 Not Estab. % [facility] Neutrophils Absolute 3.3 1.4 - 7.0 x10E3/uL [facility] Lymphocytes Absolute 1.7 0.7 - 3.1 x10E3/uL [facility] Monocytes Absolute 0.3 0.1 - 0.9 x10E3/uL [facility] Eosinophils Absolute 0.1 0.0 - 0.4 x10E3/uL [facility] Basophils Absolute 0.0 0.0 - 0.2 x10E3/uL [facility] Immature Granulocytes 1 Not Estab. % [facility] Immature Grans (Absolute) 0.0 0.0 - 0.1 x10E3/uL [facility] Blood specimen (specimen) Venous blood / Unknown 06/07/2024 11:53 AM EST 06/07/2024 us Barry Reyes MD LAB BLOOD ORDERABLES Final Re sult [facility] [address] [place] [address] documented in this encounter Visit Diagnoses Diagnosis Chronic kidney disease, stage 2 (mild) Anemia in chronic kidney disease Iron deficiency anemia, not otherwise specified documented in this encounter Care Teams Supervisor Hard Candy Relationship Specialty Start Date End Date Sahra Son MD [address] [place] [address] PCP - General Internal Medicine 10/28/22 documented as of this encounter
--- OUTSIDE RECORDS SUMMARY | 2025-04-19 09:14 | XMS_ITS | Encounter Summary ---
Author Organization [facility] Address [address] [place] [address] Phone Care Team Providers Care Merchandising Intern Name Role Phone Sahra Son MD Primary Care Provider + Encounter Details Date Type Department Care Team (Late Contact Info) Description 09/01/2024 Orders Only [facility] [address] [place] [address] India Davalos [address] [place] [address] Anemia in chronic kidney disease; [...] Visit [facility] [address] [place] [address] Barry Reyes MD [address] [place] [address] [place] [address] documented as of this encounter [...] Glucose 233(H) 70 - 99 mg/dL [facility] BUN 15 8 - 27 mg/dL [facility] Creatinine 1.01(H) 0.57 - 1.00 mg/dL [facility] eGFR CKD-EPI CR 2020 62 >59 mL/min/1.7 3 [facility] BUN/Creatinine Ratio 15 12 - 28 [facility] Sodium 138 134 - 144 mmol/L [facility] Potassium 4.9 3.5 - 5.2 mmol/L [facility] Chloride 101 96 - 106 mmol/L [facility] Bicarbonate (CO2) 19(L) 20 - 29 mmol/L [facility] Calcium 9.1 8.7 - 10.3 mg/dL [facility] Albumin 4.2 3.9 - 4.9 g/dL [facility] Phosphorus 3.8 3.0 - 4.3 mg/dL [facility] Blood specimen (specimen) Venous blood / Unknown 09/06/2024 8:15 AM EDT 09/06/2024 Barry Reyes MD LAB BLOOD ORDERABLES Final Re sult Performing Organization Address City/[facility]/ZIP Co de Phone Number [facility] [address] [place] [address] * Ferritin (09/06/2024 8:15 AM EDT) Ferritin 37 15 - 150 ng/mL [facility] Blood specimen (specimen) Venous blood / Unknown 09/06/2024 8:15 AM EDT 09/06/2024 Barry Reyes MD LAB BLOOD ORDERABLES Final Re sult Performing Organization Address [facility] de Phone Number [facility] [address] [place] [address] * (ABNORMAL) Iron Panel (Fe, TIBC, TSAT) (09/06/2024 8:15 AM EDT) TIBC 323 250 - 450 ug/dL [facility] UIBC 286 118 - 369 ug/dL [facility] Iron 37 27 - 139 ug/dL [facility] Iron Saturation (TSat) 11(L) 15 - 55 % [facility] Blood specimen (specimen) Venous blood / Unknown 09/06/2024 8:15 AM EDT 09/06/2024 Barry Reyes MD LAB BLOOD ORDERABLES Final Re sult Performing Organization Address City/[facility]/ZIP Co de Phone Number [facility] [address] [place] [address] * (ABNORMAL) CBC and Differential (09/06/2024 8:15 AM EDT) WBC 6.3 3.4 - 10.8 x10E3/uL [facility] RBC 5.35(H) 3.77 - 5.28 x10E6/uL [facility] Hemoglobin 10.6(L) 11.1 - 15.9 g/dL [facility] Hematocrit 35.8 34.0 - 46.6 % [facility] MCV 67(L) 79 - 97 fL [facility] MCH 19.8(L) 26.6 - 33.0 pg [facility] MCHC 29.6(L) 31.5 - 35.7 g/dL [facility] RDW 18.4(H) 11.7 - 15.4 % [facility] Platelets 190 150 - 450 x10E3/uL [facility] Neutrophils Relative 67 Not Estab. % [facility] Lymphocytes Relative 22 Not Estab. % [facility] Monocytes 6 Not Estab. % [facility] Eosinophils Relative 3 Not Estab. % [facility] Basophils Relative 1 Not Estab. % [facility] Neutrophils Absolute 4.3 1.4 - 7.0 x10E3/uL [facility] Lymphocytes Absolute 1.4 0.7 - 3.1 x10E3/uL [facility] Monocytes Absolute 0.4 0.1 - 0.9 x10E3/uL [facility] Eosinophils Absolute 0.2 0.0 - 0.4 x10E3/uL [facility] Basophils Absolute 0.1 0.0 - 0.2 x10E3/uL [facility] Immature Granulocytes 1 Not Estab. % [facility] Immature Grans (Absolute) 0.1 0.0 - 0.1 x10E3/uL [facility] Blood specimen (specimen) Venous blood / Unknown 09/06/2024 8:15 AM EDT 09/06/2024 us Barry Reyes MD LAB BLOOD ORDERABLES Final Re sult [facility] [address] [place] [address] documented in this encounter Visit Diagnoses Diagnosis Anemia in chronic kidney disease Other iron deficiency anemia Chronic kidney disease, stage 2 (mild) documented in this encounter Care Teams Merchandising Intern Relationship Specialty Start Date End Date Sahra Son MD [address] [place] [id number] PCP - General Internal Medicine 10/28/22 documented as of this encounter
--- OUTSIDE RECORDS SUMMARY | 2025-04-19 09:14 | XMS_ITS | Clinical Summary ---
Author Organization [facility] [place], Address [address] [place] [address] [place] [address] Phone Care Team Providers Care Parts Counterperson Name Role Phone Sahra Son MD Primary Care Provider + Allergies Active Allergy Reactions Criticality Noted Date Comments Codeine 12/26/2012 Ferumoxytol Shortness of breath,Itching,Other (see comments) High 02/27/2022 Bones hurt Iodinated Contrast Media 07/06/2022 Penicillins 12/26/2012 Other Shellfish Allergy 12/26/2012 Tramadol 07/06/2022 Trazodone 03/08/2018 Iron Sucrose 02/29/2024 Coughing fit infusion stopped at [facility] Medications Cymbalta [address] capsule TK 2 CS PO QAM 12/28/19 20 Active LORazepam (ATIVAN) 1 MG tablet TK 1 T PO BID 12/24/19 20 Active meclizine (ANTIVERT) 25 MG tablet TK 1 T PO TID PRN 12/24/19 20 Active montelukast (SINGULAIR) 10 MG tablet TK 1 T PO QD IN THE DARCY 11/19/19 20 Active Creon [address]67-[address] units capsule TK ONE C PO TID [...] [facility] [address] [place] [address] India Davalos Anemia in chronic kidney disease; Other iron deficiency anemia; Chronic kidney disease, stage 2 (mild) 02/16/2025 Telephone [facility] [address] [place] [address] Stephanie Azul, RN 02/16/2025 Orders Only [facility] [address] [place] [address] India Davalos Anemia in chronic kidney disease; Other iron deficiency anemia; Chronic kidney disease, stage 2 (mild) 02/09/2025 Telephone [facility] [address] [place] [address] Stephanie Azul, RN 01/19/2025 Orders Only [facility] [address] [place] [address] India Davalos Anemia in chronic kidney disease; [...] Visit [facility] [place], [address] [place] [address] Barry Reyes MD [address] [place] [address] Health Maintenance Due Date Last Done Comments [...] TIBC 263 250 - 450 ug/dL [facility] UIBC 219 118 - 369 ug/dL [facility] Iron 44 27 - 139 ug/dL [facility] Iron Saturation (TSat) 17 15 - 55 % [facility] Blood specimen (specimen) Venous blood / Unknown 02/19/2025 9:33 AM EDT 02/19/2025 us Barry Reyes MD LAB BLOOD ORDERABLES Final Re sult [facility] [address] [place] [address] * (ABNORMAL) CBC and Differential (02/19/2025 9:33 AM EDT) WBC 8.3 3.4 - 10.8 x10E3/uL [facility] RBC 5.45(H) 3.77 - 5.28 x10E6/uL [facility] Hemoglobin 11.2 11.1 - 15.9 g/dL [facility] Hematocrit 38.3 34.0 - 46.6 % [facility] MCV 70(L) 79 - 97 fL [facility] MCH 20.6(L) 26.6 - 33.0 pg [facility] MCHC 29.2(L) 31.5 - 35.7 g/dL [facility] RDW 18.0(H) 11.7 - 15.4 % [facility] Platelets 217 150 - 450 x10E3/uL [facility] Neutrophils Relative 73 Not Estab. % [facility] Lymphocytes Relative 18 Not Estab. % [facility] Monocytes 5 Not Estab. % [facility] Eosinophils Relative 2 Not Estab. % [facility] Basophils Relative 1 Not Estab. % [facility] Neutrophils Absolute 6.2 1.4 - 7.0 x10E3/uL [facility] Lymphocytes Absolute 1.5 0.7 - 3.1 x10E3/uL [facility] Monocytes Absolute 0.4 0.1 - 0.9 x10E3/uL [facility] Eosinophils Absolute 0.1 0.0 - 0.4 x10E3/uL [facility] Basophils Absolute 0.1 0.0 - 0.2 x10E3/uL [facility] Immature Granulocytes 0 Not Estab. % [facility] Immature Grans (Absolute) 0.0 0.0 - 0.1 x10E3/uL [facility] Blood specimen (specimen) Venous blood / Unknown 02/19/2025 9:33 AM EDT 02/19/2025 Barry Reyes MD LAB BLOOD ORDERABLES Final Re sult [facility] [address] [place] [address] * (ABNORMAL) Ferritin (02/19/2025 9:33 AM EDT) Ferritin 156(H) 15 - 150 ng/mL [facility] Blood specimen (specimen) Venous blood / Unknown 02/19/2025 9:33 AM EDT 02/19/2025 Barry Reyes MD LAB BLOOD ORDERABLES Final Re sult [facility] [address] [place] [address] * (ABNORMAL) Renal Function Panel (02/19/2025 9:33 AM EDT) Glucose 318(H) 70 - 99 mg/dL [facility] BUN 14 8 - 27 mg/dL [facility] Creatinine 1.01(H) 0.57 - 1.00 mg/dL [facility] eGFR CKD-EPI CR 2020 62 >59 mL/min/1.7 3 [facility] BUN/Creatinine Ratio 14 12 - 28 [facility] Sodium 137 134 - 144 mmol/L [facility] Potassium 4.8 3.5 - 5.2 mmol/L [facility] Chloride 99 96 - 106 mmol/L [facility] Bicarbonate (CO2) 22 20 - 29 mmol/L [facility] Calcium 9.3 8.7 - 10.3 mg/dL [facility] Albumin 4.2 3.9 - 4.9 g/dL [facility] Phosphorus 3.9 3.0 - 4.3 mg/dL [facility] Blood specimen (specimen) Venous blood / Unknown 02/19/2025 9:33 AM EDT 02/19/2025 us Barry Reyes MD LAB BLOOD ORDERABLES Final Re sult [facility] [address] [place] [address] * (ABNORMAL) Hemoglobin A1c (06/08/2023 8:36 AM EST) Hemoglobin A1C 7.2(H) (4.0-5.6) % [facility] Comment: MONITORING: In known diabetic patients, hemoglobin A1c targets should be discussed with health care provider. DIAGNOSTIC USE: The [place] Diabetes Association (ADA) and the World Health [...] Supplement 1 Testing performed or reported by [facility] Reference [employer], a Service of [facility], [address] [place] [address] Luis A Bailey MD, Clerk Manager [facility]# [id number] Blood specimen (specimen) Venous blood / Unknown 06/08/2023 8:36 AM EST 06/08/2023 8:38 AM EST us Arlene CARTER LAB BLOOD ORDERABLES Final Re sult [facility] from Last 3 Months or Most Recently Relevant to Health Maintenance [place] [address] Care Dual SNP ([id number]) Care Teams Parts Counterperson Relationship Specialty Start Date End Date Sahra Son MD [address] [address] PCP - General Internal Medicine 10/28/22
--- OUTSIDE RECORDS SUMMARY | 2025-04-19 09:14 | XMS_ITS | Encounter Summary ---
Author Organization [facility] Address [address] [place] [address] Phone Care Team Providers Care Glass Engraver Name Role Phone Sahra Sno MD Primary Care Provider + Encounter Details Date Type Department Care Team (Late Contact Info) Description 08/04/2024 Orders Only [facility] [address] [place] [address] India Davalos [address] [place] [address] Anemia in chronic kidney disease; [...] Visit [facility] [address] [place] [address] Barry Reyes MD [address] [place] [address] [place] [address] documented as of this encounter [...] Glucose 168(H) 70 - 99 mg/dL [facility] BUN 15 8 - 27 mg/dL [facility] Creatinine 0.93 0.57 - 1.00 mg/dL [facility] eGFR CKD-EPI CR 2020 69 >59 mL/min/1.7 3 [facility] BUN/Creatinine Ratio 16 12 - 28 [facility] Sodium 139 134 - 144 mmol/L [facility] Chloride 103 96 - 106 mmol/L [facility] Bicarbonate (CO2) 24 20 - 29 mmol/L [facility] Calcium 8.8 8.7 - 10.3 mg/dL [facility] Phosphorus 3.8 3.0 - 4.3 mg/dL [facility] Albumin 4.1 3.9 - 4.9 g/dL [facility] Potassium 4.8 3.5 - 5.2 mmol/L [facility] Blood specimen (specimen) Venous blood / Unknown 08/07/2024 8:15 AM EDT 08/07/2024 Barry Reyes MD LAB BLOOD ORDERABLES Final Re sult Performing Organization Address City/[facility]/ZIP Co de Phone Number [facility] [address] [place] [address] * Ferritin (08/07/2024 8:15 AM EDT) Ferritin 55 15 - 150 ng/mL [facility] Blood specimen (specimen) Venous blood / Unknown 08/07/2024 8:15 AM EDT 08/07/2024 Barry Reyes MD LAB BLOOD ORDERABLES Final Re sult Performing Organization Address [facility] de Phone Number [facility] [address] [place] [address] * (ABNORMAL) Iron Panel (Fe, TIBC, TSAT) (08/07/2024 8:15 AM EDT) Pathologist [facility] TIBC 290 250 - 450 ug/dL [facility] UIBC 251 118 - 369 ug/dL [facility] Iron 39 27 - 139 ug/dL [facility] Iron Saturation (TSat) 13(L) 15 - 55 % [facility] Blood specimen (specimen) Venous blood / Unknown 08/07/2024 8:15 AM EDT 08/07/2024 Barry Reyes MD LAB BLOOD ORDERABLES Final Re sult Performing Organization Address City/[facility]/ZIP Co de Phone Number [facility] [address] [place] [address] * (ABNORMAL) CBC and Differential (08/07/2024 8:15 AM EDT) [facility] WBC 5.6 3.4 - 10.8 x10E3/uL [facility] RBC 5.41(H) 3.77 - 5.28 x10E6/uL [facility] Hemoglobin 10.7(L) 11.1 - 15.9 g/dL [facility] Hematocrit 36.1 34.0 - 46.6 % [facility] MCV 67(L) 79 - 97 fL [facility] MCH 19.8(L) 26.6 - 33.0 pg [facility] MCHC 29.6(L) 31.5 - 35.7 g/dL [facility] RDW 18.9(H) 11.7 - 15.4 % [facility] Platelets 171 150 - 450 x10E3/uL [facility] Neutrophils Relative 65 Not Estab. % [facility] Lymphocytes Relative 25 Not Estab. % [facility] Monocytes 6 Not Estab. % [facility] Eosinophils Relative 3 Not Estab. % [facility] Basophils Relative 1 Not Estab. % [facility] Neutrophils Absolute 3.6 1.4 - 7.0 x10E3/uL [facility] Lymphocytes Absolute 1.4 0.7 - 3.1 x10E3/uL [facility] Monocytes Absolute 0.4 0.1 - 0.9 x10E3/uL [facility] Eosinophils Absolute 0.2 0.0 - 0.4 x10E3/uL [facility] Basophils Absolute 0.0 0.0 - 0.2 x10E3/uL [facility] Immature Granulocytes 0 Not Estab. % [facility] Immature Grans (Absolute) 0.0 0.0 - 0.1 x10E3/uL [facility] Blood specimen (specimen) Venous blood / Unknown 08/07/2024 8:15 AM EDT 08/07/2024 us Barry Reyes MD LAB BLOOD ORDERABLES Final Re sult [facility] [address] [place] [address] documented in this encounter Visit Diagnoses Diagnosis Anemia in chronic kidney disease Other iron deficiency anemia Chronic kidney disease, stage 2 (mild) documented in this encounter Care Teams Glass Engraver Relationship Specialty [place] [address] [place] [address] PCP - General Internal Medicine 10/28/22 documented as of this encounter
--- OUTSIDE RECORDS SUMMARY | 2025-04-19 09:14 | XMS_ITS | Encounter Summary ---
Author Organization [facility] Address [address] [place] [address] Phone Care Team Providers Care Glove Examiner Name Role Phone Sahra Sno MD Primary Care Provider + Encounter Details Date Type Department Care Team (Late Contact Info) Description 09/29/2024 Orders Only [facility] [address] [place] [address] India Davalos [address] [place] [address] Anemia in chronic kidney disease; [...] And Transplant [facility] [address] [place] [address] Barry Reyes MD [address] [place] [address] [place] [address] documented as of this encounter [...] Glucose 219(H) 70 - 99 mg/dL [facility] BUN 14 8 - 27 mg/dL [facility] Creatinine 1.09(H) 0.57 - 1.00 mg/dL [facility] eGFR CKD-EPI CR 2020 57(L) >59 mL/min/1.7 3 [facility] BUN/Creatinine Ratio 13 12 - 28 [facility] Sodium 139 134 - 144 mmol/L [facility] Potassium 5.0 3.5 - 5.2 mmol/L [facility] Chloride 101 96 - 106 mmol/L [facility] Bicarbonate (CO2) 20 20 - 29 mmol/L [facility] Calcium 9.2 8.7 - 10.3 mg/dL [facility] Albumin 4.1 3.9 - 4.9 g/dL [facility] Phosphorus 3.7 3.0 - 4.3 mg/dL [facility] Blood specimen (specimen) Venous blood / Unknown 10/04/2024 9:48 AM EDT 10/04/2024 Barry Reyes MD LAB BLOOD ORDERABLES Final Re sult [facility] [address] [place] [address] * (ABNORMAL) Ferritin (10/04/2024 9:48 AM EDT) Ferritin 167(H) 15 - 150 ng/mL [facility] Blood specimen (specimen) Venous blood / Unknown 10/04/2024 9:48 AM EDT 10/04/2024 Barry Reyes MD LAB BLOOD ORDERABLES Final Re sult Performing Organization Address [facility] Co de Phone Number [facility] [address] [place] [address] * (ABNORMAL) Iron Panel (Fe, TIBC, TSAT) (10/04/2024 9:48 AM EDT) TIBC 247(L) 250 - 450 ug/dL [facility] UIBC 205 118 - 369 ug/dL [facility] Iron 42 27 - 139 ug/dL [facility] Iron Saturation (TSat) 17 15 - 55 % [facility] Blood specimen (specimen) Venous blood / Unknown 10/04/2024 9:48 AM EDT 10/04/2024 Barry Reyes MD LAB BLOOD ORDERABLES Final Re sult Performing Organization Address City/[facility]/ZIP Co de Phone Number [facility] [address] [facility] [place] [address] * (ABNORMAL) CBC and Differential (10/04/2024 9:48 AM EDT) [facility] WBC 6.0 3.4 - 10.8 x10E3/uL [facility] RBC 5.10 3.77 - 5.28 x10E6/uL [facility] Hemoglobin 10.2(L) 11.1 - 15.9 g/dL [facility] Hematocrit 35.1 34.0 - 46.6 % [facility] MCV 69(L) 79 - 97 fL [facility] MCH 20.0(L) 26.6 - 33.0 pg [facility] MCHC 29.1(L) 31.5 - 35.7 g/dL [facility] RDW 18.5(H) 11.7 - 15.4 % [facility] Platelets 170 150 - 450 x10E3/uL [facility] Neutrophils Relative 69 Not Estab. % [facility] Lymphocytes Relative 22 Not Estab. % [facility] Monocytes 6 Not Estab. % [facility] Eosinophils Relative 2 Not Estab. % [facility] Basophils Relative 1 Not Estab. % [facility] Neutrophils Absolute 4.2 1.4 - 7.0 x10E3/uL [facility] Lymphocytes Absolute 1.3 0.7 - 3.1 x10E3/uL [facility] Monocytes Absolute 0.3 0.1 - 0.9 x10E3/uL [facility] Eosinophils Absolute 0.1 0.0 - 0.4 x10E3/uL [facility] Basophils Absolute 0.1 0.0 - 0.2 x10E3/uL [facility] Immature Granulocytes 0 Not Estab. % [facility] Immature Grans (Absolute) 0.0 0.0 - 0.1 x10E3/uL [facility] Blood specimen (specimen) Venous blood / Unknown 10/04/2024 9:48 AM EDT 10/04/2024 us Barry Reyes MD LAB BLOOD ORDERABLES Final Re sult [facility] [address] [place] [address] documented in this encounter Visit Diagnoses Diagnosis Anemia in chronic kidney disease Other iron deficiency anemia Chronic kidney disease, stage 2 (mild) documented in this encounter Care Teams Glove Examiner Relationship Specialty Start Date End Date Sahra Son MD [address] [place] [address] PCP - General Internal Medicine 10/28/22 documented as of this encounter
--- OUTSIDE RECORDS SUMMARY | 2025-04-19 09:14 | XMS_ITS | Encounter Summary ---
Author Organization [facility] Address [address] [place] [address] Phone Care Team Providers Care Security Sme Name Role Phone Sahra Son MD Primary Care Provider + Encounter Details Date Type Department Care Team (Late Contact Info) Description 10/13/2024 Orders Only [facility] [address] [place] [address] India Davalos [address] [place] [address] Chronic kidney disease, stage 2 [...] Visit [facility] [address] [place] [address] Barry Reyes MD [address] [place] [address] [place] [address] documented as of this encounter Visit Diagnoses Diagnosis Chronic kidney disease, stage 2 (mild) Anemia in chronic kidney disease Iron deficiency anemia, not otherwise specified documented in this encounter Care Teams Security Sme Relationship Specialty Start Date End Date Sahra Son MD [address] [place] [address] PCP - General Internal Medicine 10/28/22 documented as of this encounter
--- OUTSIDE RECORDS SUMMARY | 2025-04-19 09:14 | XMS_ITS | Encounter Summary ---
Author Organization [facility] Address [address] [place] [address] Phone Care Team Providers Care Mortgage Protection Sales Name Role Phone Sahra Son MD Primary Care Provider + Encounter Details Date Type Department Care Team ([facility] Contact Info) Description 10/30/2022 Documentation Only [facility] [address] [place] [address] India Davalos [address] [place], [place] [...] [facility] [address] [place] [address] Barry Reyes MD [address] [place] [address] [place] [address] documented as of this encounter Visit Diagnoses Not on filedocumented in this encounter Care Teams Mortgage Protection Sales Relationship Specialty Start Date End Date Sahra Son MD [address] [address] PCP - General Internal Medicine 10/28/22 documented as of this encounter
--- OUTSIDE RECORDS SUMMARY | 2025-04-19 09:14 | XMS_ITS | Encounter Summary ---
Author Organization [facility] Address [address] [place] [address] Phone Care Team Providers Care Rail Grinder Name Role Phone Sahra Son MD Primary Care Provider + Encounter Details Date Type Department Care Team (Late Contact Info) Description 03/31/2024 Orders Only [facility] [address] [place] [address] India Davalos [address] [place] [address] Chronic kidney disease, stage 2 [...] [facility] [address] [place] [address] Barry Reyes MD [address] [place] [address] [place] [address] documented as of this encounter Visit Diagnoses Diagnosis Chronic kidney disease, stage 2 (mild) Anemia in chronic kidney disease Iron deficiency anemia, not otherwise specified documented in this encounter Care Teams Rail Grinder Relationship Specialty Start Date End Date Sahra Son MD [address] [place] [address] PCP - General Internal Medicine 10/28/22 documented as of this encounter
--- OUTSIDE RECORDS SUMMARY | 2025-04-19 09:14 | XMS_ITS | Encounter Summary ---
Author Organization [facility] Address [address] [place] [address] Phone Care Team Providers Care Nutrition Aide Name Role Phone Sahra Son MD Primary Care Provider + Encounter Details Date Type Department Care Team ([facility] Contact Info) Description 04/05/2024 Documentation Only [facility] [address] [place] [address] India Davalos [address] [place] [address] Social History Tobacco Use Types [...] [facility] [address] [place] [address] Barry Reyes MD [address] [place] [address] [place] [address] documented as of this encounter Visit Diagnoses Not on filedocumented in this encounter Care Teams Nutrition Aide Relationship Specialty Start Date End Date Sahra Son MD [address] [address] PCP - General Internal Medicine 10/28/22 documented as of this encounter
--- OUTSIDE RECORDS SUMMARY | 2025-04-19 09:14 | XMS_ITS | Encounter Summary ---
Author Organization [facility] Address [address] [place] [address] Phone Care Team Providers Care Offset Assistant Press Operator Name Role Phone Sahra Son MD Primary Care Provider + Encounter Details Date Type Department Care Team ([facility] Contact Info) Description 10/26/2022 Documentation Only [facility] [address] [place] [address] India Davalos [address] [place], [place] [...] [facility] [address] [place] [address] Barry Reyes MD [address] [place] [address] [place] [address] documented as of this encounter Visit Diagnoses Not on filedocumented in this encounter Care Teams Offset Assistant Press Operator Relationship Specialty Start Date End Date Sahra Son MD [address] [address] PCP - General Internal Medicine 10/28/22 documented as of this encounter
--- OUTSIDE RECORDS SUMMARY | 2025-04-19 09:14 | XMS_ITS | Encounter Summary ---
Author Organization [facility] Address [address] [place] [address] Phone Care Team Providers Care Needle Bar Molder Name Role Phone Sahra Son MD Primary Care Provider + Encounter Details Date Type Department Care Team (Late Contact Info) Description 04/28/2024 Orders Only [facility] [address] [place] [address] India Davalos [address] [place] [address] Chronic kidney disease, stage 2 [...] [facility] [address] [address] Barry Reyes MD [address] [place] [address] [place] [address] documented as of this encounter [...] Glucose 153(H) 70 - 99 mg/dL [facility] BUN 17 8 - 27 mg/dL [facility] Creatinine 0.98 0.57 - 1.00 mg/dL [facility] eGFR CKD-EPI CR 2020 64 >59 mL/min/1.7 3 [facility] BUN/Creatinine Ratio 17 12 - 28 [facility] Sodium 142 134 - 144 mmol/L [facility] Potassium 5.0 3.5 - 5.2 mmol/L [facility] Chloride 106 96 - 106 mmol/L [facility] Bicarbonate (CO2) 23 20 - 29 mmol/L [facility] Calcium 8.9 8.7 - 10.3 mg/dL [facility] Albumin 3.9 3.9 - 4.9 g/dL [facility] Phosphorus 3.9 3.0 - 4.3 mg/dL [facility] Blood specimen (specimen) Venous blood / Unknown 05/05/2024 9:18 AM EST 05/05/2024 Barry Reyes MD LAB BLOOD ORDERABLES Final Re sult Performing Organization Address City/[facility]/ZIP Co de Phone Number [facility] [address] [place] [address] * (ABNORMAL) Ferritin (05/05/2024 9:18 AM EST) Ferritin 282(H) 15 - 150 ng/mL [facility] Blood specimen (specimen) Venous blood / Unknown 05/05/2024 9:18 AM EST 05/05/2024 Barry Reyes MD LAB BLOOD ORDERABLES Final Re sult Performing Organization Address [facility] de Phone Number [facility] [address] [place] [address] * Iron Panel (Fe, TIBC, TSAT) (05/05/2024 9:18 AM EST) TIBC 277 250 - 450 ug/dL [facility] UIBC 210 118 - 369 ug/dL [facility] Iron 67 27 - 139 ug/dL [facility] Iron Saturation (TSat) 24 15 - 55 % [facility] Blood specimen (specimen) Venous blood / Unknown 05/05/2024 9:18 AM EST 05/05/2024 Barry Reyes MD LAB BLOOD ORDERABLES Final Re sult Performing Organization Address City/[facility]/ZIP Co de Phone Number [id number] [address] [place] [address] * (ABNORMAL) CBC and Differential (05/05/2024 9:18 AM EST) WBC 5.6 3.4 - 10.8 x10E3/uL [facility] RBC 5.33(H) 3.77 - 5.28 x10E6/uL [facility] Hemoglobin 10.2(L) 11.1 - 15.9 g/dL [facility] Hematocrit 35.0 34.0 - 46.6 % [facility] MCV 66(L) 79 - 97 fL [facility] MCH 19.1(L) 26.6 - 33.0 pg [facility] MCHC 29.1(L) 31.5 - 35.7 g/dL [facility] RDW 20.1(H) 11.7 - 15.4 % [facility] Platelets 163 150 - 450 x10E3/uL [facility] Neutrophils Relative 64 Not Estab. % [facility] Lymphocytes Relative 26 Not Estab. % [facility] Monocytes 6 Not Estab. % [facility] Eosinophils Relative 3 Not Estab. % [facility] Basophils Relative 1 Not Estab. % [facility] Neutrophils Absolute 3.6 1.4 - 7.0 x10E3/uL [facility] Lymphocytes Absolute 1.5 0.7 - 3.1 x10E3/uL [facility] Monocytes Absolute 0.3 0.1 - 0.9 x10E3/uL [facility] Eosinophils Absolute 0.2 0.0 - 0.4 x10E3/uL [facility] Basophils Absolute 0.0 0.0 - 0.2 x10E3/uL [facility] Immature Granulocytes 0 Not Estab. % [facility] Immature Grans (Absolute) 0.0 0.0 - 0.1 x10E3/uL [facility] Blood specimen (specimen) Venous blood / Unknown 05/05/2024 9:18 AM EST 05/05/2024 us Barry Reyes MD LAB BLOOD ORDERABLES Final Re sult [facility] [address] [place] [address] documented in this encounter Visit Diagnoses Diagnosis Chronic kidney disease, stage 2 (mild) Anemia in chronic kidney disease Iron deficiency anemia, not otherwise specified documented in this encounter Care Teams Needle Bar Molder Relationship Specialty Start Date End Date Sahra Son MD [address] [place] [address] PCP - General Internal Medicine 10/28/22 documented as of this encounter
--- OUTSIDE RECORDS SUMMARY | 2025-04-19 09:14 | XMS_ITS | Encounter Summary ---
Author Organization [facility] Address [address] [place] [address] Phone Care Team Providers Care Photoengraving Machine Operator/Tender Name Role Phone Sahra Son MD Primary Care Provider + Encounter Details Date Type Department Care Team (Late Contact Info) Description 02/16/2025 Orders Only [facility] [address] [place] [address] India Davalos [address] [place] [address] Anemia in chronic kidney disease; [...] [facility] [address] [place] [address] Barry Reyes MD [address] [place] [address] [place] [address] documented as of this encounter [...] Glucose 318(H) 70 - 99 mg/dL [facility] BUN 14 8 - 27 mg/dL [facility] Creatinine 1.01(H) 0.57 - 1.00 mg/dL [facility] eGFR CKD-EPI CR 2020 62 >59 mL/min/1.7 3 [facility] BUN/Creatinine Ratio 14 12 - 28 [facility] Sodium 137 134 - 144 mmol/L [facility] Potassium 4.8 3.5 - 5.2 mmol/L [facility] Chloride 99 96 - 106 mmol/L [facility] Bicarbonate (CO2) 22 20 - 29 mmol/L [facility] Calcium 9.3 8.7 - 10.3 mg/dL [facility] Albumin 4.2 3.9 - 4.9 g/dL [facility] Phosphorus 3.9 3.0 - 4.3 mg/dL [facility] Blood specimen (specimen) Venous blood / Unknown 02/19/2025 9:33 AM EDT 02/19/2025 us Barry Reyes MD LAB BLOOD ORDERABLES Final Re sult Performing Organization Address City/[facility]/ZIP Co de Phone Number [facility] [address] [place] [address] * (ABNORMAL) Ferritin (02/19/2025 9:33 AM EDT) Ferritin 156(H) 15 - 150 ng/mL [facility] Blood specimen (specimen) Venous blood / Unknown 02/19/2025 9:33 AM EDT 02/19/2025 Barry Reyes MD LAB BLOOD ORDERABLES Final Re sult Performing Organization Address [facility] de Phone Number [facility] [address] [place] [address] * Iron Panel (Fe, TIBC, TSAT) (02/19/2025 9:33 AM EDT) TIBC 263 250 - 450 ug/dL [facility] UIBC 219 118 - 369 ug/dL [facility] Iron 44 27 - 139 ug/dL [facility] Iron Saturation (TSat) 17 15 - 55 % [facility] Blood specimen (specimen) Venous blood / Unknown 02/19/2025 9:33 AM EDT 02/19/2025 us Barry Reyes MD LAB BLOOD ORDERABLES Final Re sult Performing Organization Address City/[facility]/ZIP Co de Phone Number [facility] [address] [place] [address] * (ABNORMAL) CBC and Differential (02/19/2025 9:33 AM EDT) [facility] WBC 8.3 3.4 - 10.8 x10E3/uL [facility] RBC 5.45(H) 3.77 - 5.28 x10E6/uL [facility] Hemoglobin 11.2 11.1 - 15.9 g/dL [facility] Hematocrit 38.3 34.0 - 46.6 % [facility] MCV 70(L) 79 - 97 fL [facility] MCH 20.6(L) 26.6 - 33.0 pg [facility] MCHC 29.2(L) 31.5 - 35.7 g/dL [facility] RDW 18.0(H) 11.7 - 15.4 % [facility] Platelets 217 150 - 450 x10E3/uL [facility] Neutrophils Relative 73 Not Estab. % [facility] Lymphocytes Relative 18 Not Estab. % [facility] Monocytes 5 Not Estab. % [facility] Eosinophils Relative 2 Not Estab. % [facility] Basophils Relative 1 Not Estab. % [facility] Neutrophils Absolute 6.2 1.4 - 7.0 x10E3/uL [facility] Lymphocytes Absolute 1.5 0.7 - 3.1 x10E3/uL [facility] Monocytes Absolute 0.4 0.1 - 0.9 x10E3/uL [facility] Eosinophils Absolute 0.1 0.0 - 0.4 x10E3/uL [facility] Basophils Absolute 0.1 0.0 - 0.2 x10E3/uL [facility] Immature Granulocytes 0 Not Estab. % [facility] Immature Grans (Absolute) 0.0 0.0 - 0.1 x10E3/uL [facility] Blood specimen (specimen) Venous blood / Unknown 02/19/2025 9:33 AM EDT 02/19/2025 us Barry Reyes MD LAB BLOOD ORDERABLES Final Re sult [facility] [address] [place] [address] documented in this encounter Visit Diagnoses Diagnosis Anemia in chronic kidney disease Other iron deficiency anemia Chronic kidney disease, stage 2 (mild) documented in this encounter Care Teams Photoengraving Machine Operator/Tender Relationship Specialty [place] [address] [place] [address] PCP - General Internal Medicine 10/28/22 documented as of this encounter
--- OUTSIDE RECORDS SUMMARY | 2025-04-19 09:14 | XMS_ITS | Encounter Summary ---
Author Organization [facility] Address [address] [place] [address] Phone Care Team Providers Care Gang Punch Operator Name Role Phone Sahra Son MD Primary Care Provider + Encounter Details Date Type Department Care Team (Late Contact Info) Description 10/27/2024 Orders Only [facility] [address] [place] [address] India Davalos [address] [place] [address] Anemia in chronic kidney disease; [...] [facility] [address] [place] [address] Barry Reyes MD [address] [place] [address] [place] [address] documented as of this encounter [...] Glucose 238(H) 70 - 99 mg/dL [facility] BUN 15 8 - 27 mg/dL [facility] Creatinine 0.96 0.57 - 1.00 mg/dL [facility] eGFR CKD-EPI CR 2020 66 >59 mL/min/1.7 3 [facility] BUN/Creatinine Ratio 16 12 - 28 [facility] Sodium 137 134 - 144 mmol/L [facility] Potassium 4.7 3.5 - 5.2 mmol/L [facility] Chloride 100 96 - 106 mmol/L [facility] Bicarbonate (CO2) 20 20 - 29 mmol/L [facility] Calcium 9.0 8.7 - 10.3 mg/dL [facility] Albumin 4.3 3.9 - 4.9 g/dL [facility] Phosphorus 2.8(L) 3.0 - 4.3 mg/dL [facility] Blood specimen (specimen) Venous blood / Unknown 11/01/2024 8:45 AM EDT 11/01/2024 Barry Reyes MD LAB BLOOD ORDERABLES Final Re sult [facility] [address] [place] [address] * (ABNORMAL) Ferritin (11/01/2024 8:45 AM EDT) Ferritin 480(H) 15 - 150 ng/mL [facility] Blood specimen (specimen) Venous blood / Unknown 11/01/2024 8:45 AM EDT 11/01/2024 Barry Reyes MD LAB BLOOD ORDERABLES Final Re sult Performing Organization Address [facility] Co de Phone Number [facility] [address] [place] [address] * (ABNORMAL) Iron Panel (Fe, TIBC, TSAT) (11/01/2024 8:45 AM EDT) TIBC 238(L) 250 - 450 ug/dL [facility] UIBC 168 118 - 369 ug/dL [facility] Iron 70 27 - 139 ug/dL [facility] Iron Saturation (TSat) 29 15 - 55 % [facility] Blood specimen (specimen) Venous blood / Unknown 11/01/2024 8:45 AM EDT 11/01/2024 Barry Reyes MD LAB BLOOD ORDERABLES Final Re sult [facility] [address] [place] [address] * (ABNORMAL) CBC and Differential (11/01/2024 8:45 AM EDT) [facility] WBC 6.6 3.4 - 10.8 x10E3/uL [facility] RBC 5.45(H) 3.77 - 5.28 x10E6/uL [facility] Hemoglobin 11.2 11.1 - 15.9 g/dL [facility] Hematocrit 38.3 34.0 - 46.6 % [facility] MCV 70(L) 79 - 97 fL [facility] MCH 20.6(L) 26.6 - 33.0 pg [facility] MCHC 29.2(L) 31.5 - 35.7 g/dL [facility] RDW 18.8(H) 11.7 - 15.4 % [facility] Platelets 175 150 - 450 x10E3/uL [facility] Neutrophils Relative 71 Not Estab. % [facility] Lymphocytes Relative 20 Not Estab. % [facility] Monocytes 6 Not Estab. % [facility] Eosinophils Relative 1 Not Estab. % [facility] Basophils Relative 1 Not Estab. % [facility] Neutrophils Absolute 4.7 1.4 - 7.0 x10E3/uL [facility] Lymphocytes Absolute 1.3 0.7 - 3.1 x10E3/uL [facility] Monocytes Absolute 0.4 0.1 - 0.9 x10E3/uL [facility] Eosinophils Absolute 0.1 0.0 - 0.4 x10E3/uL [facility] Basophils Absolute 0.1 0.0 - 0.2 x10E3/uL [facility] Immature Granulocytes 1 Not Estab. % [facility] Immature Grans (Absolute) 0.0 0.0 - 0.1 x10E3/uL [facility] Blood specimen (specimen) Venous blood / Unknown 11/01/2024 8:45 AM EDT 11/01/2024 us Barry Reyes MD LAB BLOOD ORDERABLES Final Re sult [facility] [address] [place] [address] documented in this encounter Visit Diagnoses Diagnosis Anemia in chronic kidney disease Other iron deficiency anemia Chronic kidney disease, stage 2 (mild) documented in this encounter Care Teams Gang Punch Operator Relationship Specialty Start Date End Date Sahra Son MD [address] [place] [address] PCP - General Internal Medicine 10/28/22 documented as of this encounter
--- OUTSIDE RECORDS SUMMARY | 2025-04-19 09:14 | XMS_ITS | Encounter Summary ---
Author Organization [facility] Address [address] [place] [address] Phone Care Team Providers Care Clamshell Engineer Name Role Phone Sahra Son MD Primary Care Provider + Encounter Details Date Type Department Care Team ([facility] Contact Info) Description 04/05/2024 Documentation Only [facility] [address] [place] [address] India Davalos [address] [place] [address] Social History Tobacco Use Types [...] [facility] [address] [place] [address] Barry Reyes MD [address] [place] [address] [place] [address] documented as of this encounter Visit Diagnoses Not on filedocumented in this encounter Care Teams Clamshell Engineer Relationship Specialty Start Date End Date Sahra Son MD [address] [address] PCP - General Internal Medicine 10/28/22 documented as of this encounter
--- OUTSIDE RECORDS SUMMARY | 2025-04-19 09:15 | XMS_ITS | Encounter Summary ---
Author Organization [facility] Address [address] [place] [address] Phone Care Team Providers Care Lease Administrator Name Role Phone Sahra Son MD Primary Care Provider + Encounter Details Date Type Department Care Team (Late Contact Info) Description 11/10/2024 Orders Only [facility] [address] [place] [address] India Davalos [address] [place] [address] Chronic kidney disease, stage 2 [...] Visit [facility] [address] [place] [address] Barry Reyes MD [address] [place] [address] [place] [address] documented as of this encounter Visit Diagnoses Diagnosis Chronic kidney disease, stage 2 (mild) Anemia in chronic kidney disease Iron deficiency anemia, not otherwise specified documented in this encounter Care Teams Lease Administrator Relationship Specialty Start Date End Date Sahra Son MD [address] [place] [address] PCP - General Internal Medicine 10/28/22 documented as of this encounter
--- OUTSIDE RECORDS SUMMARY | 2025-04-19 09:15 | XMS_ITS | Encounter Summary ---
Author Organization [facility] Address [address] [place] [address] Phone Care Team Providers Care Engineering Technical Analyst Name Role Phone Sahra Son MD Primary Care Provider + Encounter Details Date Type Department Care Team (Late st Contact Info) Description 01/19/2025 Orders Only [facility] [address] [place] [address] India Davalos [address] [place] [address] Anemia in chronic kidney disease; [...] Visit [facility] [address] [place] [address] Barry Reyes MD [address] [place] [address] documented as of this encounter Visit Diagnoses Diagnosis Anemia in chronic kidney disease Other iron deficiency anemia Chronic kidney disease, stage 2 (mild) documented in this encounter Care Teams Engineering Technical Analyst Relationship Specialty Start Date End Date Sahra Son MD [facility] [place] [address] PCP - General Internal Medicine 10/28/22 documented as of this encounter
--- OUTSIDE RECORDS SUMMARY | 2025-04-19 09:15 | XMS_ITS | Encounter Summary ---
Author Organization [facility] Address [address] [place] [address] Phone Care Team Providers Care Tool And Equipment Rental Clerk Name Role Phone Sahra Son MD Primary Care Provider + Encounter Details Date Type Department Care Team ([facility] Contact Info) Description 11/13/2024 Documentation Only [facility] [address] [place] [address] India Davalos [address] [place] [address] Social History Tobacco Use [...] [facility] [address] [place] [place] [address] Barry Reyes MD [address] [place] [address] [place] [address] documented as of this encounter Visit Diagnoses Not on filedocumented in this encounter Care Teams Tool And Equipment Rental Clerk Relationship Specialty Start Date End Date Sahra Son MD [address] [address] PCP - General Internal Medicine 10/28/22 documented as of this encounter
--- OUTSIDE RECORDS SUMMARY | 2025-04-19 09:15 | XMS_ITS | Encounter Summary ---
Author Organization [facility] Address [address] [place] [address] Phone Care Team Providers Care Treatment Coordinator Name Role Phone Sahra Son MD Primary Care Provider + Encounter Details Date Type Department Care Team (Late st Contact Info) Description 11/24/2024 Orders Only [facility] [address] [place] [address] India Davalos [address] [place] [address] Anemia in chronic kidney disease; [...] Visit [facility] [address] [place] [address] Barry Reyes MD [address] [place] [address] documented as of this encounter Visit Diagnoses Diagnosis Anemia in chronic kidney disease Other iron deficiency anemia Chronic kidney disease, stage 2 (mild) documented in this encounter Care Teams Treatment Coordinator Relationship Specialty Start Date End Date Sahra Son MD [facility] [place] [address] PCP - General Internal Medicine 10/28/22 documented as of this encounter
--- OUTSIDE RECORDS SUMMARY | 2025-04-19 09:16 | XMS_ITS | Clinical Summary ---
Author Organization [facility] Address [address] [place] [address] Phone Care Team Providers Care Investment Underwriter Name Role Phone Vinnie Santizo Primary Care Provider +1- [phone] Allergies Active Allergy Reactions Criticality Noted Date [...] Description 2025 12:30 PM EDT Office Visit [facility] [address] [facility] 9th [place] [address] Cas Faye MD [address] [place] [id number] [email or web address] Health Maintenance Due Date Last Done Comments [...] topic Medical Devices Not on file Insurance [facility] MEDICARE REPLACEMENT [facility] MEDICARE REPLACEMENT MEDICARE REPLACEMENT [id number] [place] [address] MEDICARE REPLACEMENT [facility] MEDICARE REPLACEMENT Care Teams Investment Underwriter Relationship Specialty Start Date End Date Vinnie Santizo DO [address] [place] [address] PCP - General 11/14/13 Additional Source Comments The information contained in this document represents components of the legal health record. It is not the complete legal health record.[facility]
--- OUTSIDE RECORDS SUMMARY | 2025-04-19 09:16 | XMS_ITS | Encounter Summary ---
Author Organization [facility] Address [address] [place] [address] Phone Care Team Providers Care Assembler Trim Name Role Phone Sahra Son MD Primary Care Provider + Encounter Details Date Type Department Care Team (Late st Contact Info) Description 03/16/2025 Orders Only [facility] [address] [place] [address] India Davalos [address] [place] [address] Anemia in chronic kidney disease; [...] Visit [facility] [address] [place] [address] Barry Reyes MD [address] [place] [address] documented as of this encounter Visit Diagnoses Diagnosis Anemia in chronic kidney disease Other iron deficiency anemia Chronic kidney disease, stage 2 (mild) documented in this encounter Care Teams Assembler Trim Relationship Specialty Start Date End Date Sahra Son MD [facility] [place] [address] PCP - General Internal Medicine 10/28/22 documented as of this encounter
--- OUTSIDE RECORDS SUMMARY | 2025-04-19 09:16 | XMS_ITS | Clinical Summary ---
Author Organization [facility] Prior to 10/14/24 Address [address] [place] [address] Care Team Providers Care Benzene Worker Name Role Phone Natalie Olivo APRN Primary Care Provider [phone] Allergies Active Allergy Reactions Criticality Noted Date [...] Suppl (FREESTYLE LITE) TAINA 0 08/03/2016 Act allne donepezil (ARICEPT) 10 MG tablet TK 1 T PO D QPM 1 10/04/[address] capsule TK 2 CS PO D QAM 1 10/04/2016 Active ergocalciferol (VITAMIN D2) capsule 04887 units TK ONE C PO TWICE A [...] times a day. 0 04/27/2022 Active pancrelipase, Xgr-Mdsp-Suiy, (Creon) 52261-[address] units CPEP TK ONE C PO TID [...] age to complete this topic Care Teams Benzene Worker Relationship Specialty Start Date End Date Natalie Olivo APRN [address] [place] [address] PCP - General Grocery Checker 04/30/22
--- OUTSIDE RECORDS SUMMARY | 2025-04-19 09:16 | XMS_ITS | Encounter Summary ---
Author Organization [facility] Address [address] [place] [address] Phone Care Team Providers Care Rigging And Controls Aircraft Mechanic Name Role Phone Sahra Son MD Primary Care Provider + Encounter Details Date Type Department Care Team (Late Contact Info) Description 06/23/2024 Orders Only [facility] [address] [place] [address] India Davalos [address] [place] [address] Chronic kidney disease, stage 2 [...] [facility] [address] [place] [address] Barry Reyes MD [address] [place] [address] [place] [address] documented as of this encounter Visit Diagnoses Diagnosis Chronic kidney disease, stage 2 (mild) Anemia in chronic kidney disease Iron deficiency anemia, not otherwise specified documented in this encounter Care Teams Rigging And Controls Aircraft Mechanic Relationship Specialty Start Date End Date Sahra Son MD [address] [place] [address] PCP - General Internal Medicine 10/28/22 documented as of this encounter
--- OUTSIDE RECORDS SUMMARY | 2025-04-19 09:16 | XMS_ITS | Encounter Summary ---
Author Organization [facility] Address [address] [place] [address] Phone Care Team Providers Care Wire Basket Maker Name Role Phone Sahra Son MD Primary Care Provider + Encounter Details Date Type Department Care Team (Late Contact Info) Description 07/21/2024 Orders Only [facility] [address] [place] [address] India Davalos [address] [place] [address] Chronic kidney disease, stage 2 [...] Services Of [facility] [address] [place] [address] Barry Reyes MD [address] [place] [address] [place] [address] documented as of this encounter Visit Diagnoses Diagnosis Chronic kidney disease, stage 2 (mild) Anemia in chronic kidney disease Iron deficiency anemia, not otherwise specified documented in this encounter Care Teams Wire Basket Maker Relationship Specialty Start Date End Date Sahra Son MD [address] [place] [address] PCP - General Internal Medicine 10/28/22 documented as of this encounter
== END 2025-04-19 08:49 | disposition home or self-care (01) ==
LOC: HO.ACS 08:34
PROVIDERS: PCP Internal Medicine; Visit Provider Internal Medicine Medical Oncology
DX: Z79.01 Long term (current) use of anticoagulants (principal)

== ENCOUNTER → 2025-04-19 08:34 | Outpatient (BNVA) | payer OTHER, SELFPAY | PROVIDERS: PCP Internal Medicine; Visit Provider Internal Medicine Medical Oncology | DX: I82.401 Acute embolism and thrombosis of unspecified deep veins of right lower extremity (principal); Z51.81 Encounter for therapeutic drug level monitoring; Z79.01 Long term (current) use of anticoagulants | CPT/HCPCS: 85610; 99211 ==

== ENCOUNTER 2025-04-26 08:25 | Outpatient (AMB) | payer OTHER, SELFPAY ==
[2025-04-26 08:43] LABS: Prothrombin Time Whole Bld POC 42.5 sec (11.1-13.5); ~PT, ~INR - Anti Coag Clinic 3.5 (0.9-1.1)
--- NOTE | 2025-04-26 09:01 | MHC.OFFVISCO ---
Intake Intake Visit Reasons: Anticoagulation Allergies codeine (Codeine) Allergy (Severe, Verified 04/26/25 08:33) DIFFICULTY BREATHING Penicillins Allergy (Severe, Verified 04/26/25 08:33) RASH penicillin V Allergy (Intermediate, Verified 04/26/25 08:33) RASH tramadol (Ultram) Allergy (Unknown, Verified 04/26/25 08:33) hallucinations Shellfish Allergy (Severe, Uncoded 04/26/25 08:33) THROAT SWELLING Contrast Allergy PreMed Pack Allergy (Unknown, Uncoded 04/26/25 08:33) TREAT WITH BENADRYL ferrlecit Adverse Reaction (Intermediate, Uncoded 04/26/25 08:33) Rash Medication List - Last Reconciled 04/26/25 by Tangela Sam RN alcohol swabs 2 pad topical DAILY blood sugar diagnostic As directed budesonide (Pulmicort) 0.25 mg inhalation BID clonidine HCl 0.1 mg PO BID clotrimazole 1% appl topical DAILY dapagliflozin propanediol (Farxiga) 10 mg PO DAILY divalproex ER 250 mg PO TID 3 months MDD 750 docusate sodium (Colace) 100 mg PO DAILY duloxetine (Cymbalta) 30 mg PO DAILY duloxetine 60 mg PO QAM epoetin marj (Procrit) 2,000 units subcut 3XW hydrocortisone 2.5% appl topical insulin glargine (Lantus Solostar U-100 Insulin) 5 units subcut DAILY ipratropium-albuterol 0.5 mg-3 mg(2.5 mg base)/3 mL mL inhalation ipratropium-albuterol 20-100 mcg/actuation 1 puff PO QID ipratropium-albuterol 20-100 mcg/actuation (Combivent Respimat) 1 puff inhalation Q4H ketorolac 0.5% 1 drp ophthalmic (eye) QID lancets As directed lancets As directed latanoprost 0.005% drps ophthalmic (eye) linaclotide (Linzess) 145 mcg PO DAILY linagliptin (Tradjenta) 5 mg PO DAILY sjapnc-cvhasqmx-sqanrjr (pork) 24,000-76,000 -120,000 unit (Creon) 1 cap PO TID loratadine 10 mg PO DAILY PRN lorazepam 1 mg PO BID meclizine mg PO montelukast 10 mg PO BEDTIME nifedipine ER 30 mg PO DAILY nitroglycerin 0.4 mg sublingual Q5M PRN nystatin 1 appl topical DAILY PRN ondansetron 4 mg PO Q8H PRN oxcarbazepine (Trileptal) 150 mg PO Q12H 30 days pen needle, diabetic (Ultra-Fine Pen Needle) As directed quetiapine 200 mg PO BEDTIME rabeprazole 20 mg PO DAILY ropinirole 0.25 mg PO BEDTIME rosuvastatin 40 mg PO DAILY sodium chloride 0.65% (Deep Sea Nasal) sprays intranasal Q2H PRN triamcinolone acetonide 0.1% appl topical warfarin 2.5 mg See Protocol PO DAILY Nursing Note INR: 3.5 in therapeutic range Medications and supplements reviewed * Pt reported that she had GI upset last week and not much an appetite, she also started a antifungal cream - both can can contribute to elevated INRs Denies any signs and symptoms of clotting. * She had a bruise on her arm and her hemmorhoids bled yesterday - she experiences constipation and diarrhea and is on medication to help releive her symptoms but still has difficuilty - enc to discuss with PCP and enc fiber that she can tolerate Bleeding, bruising, clotting discussed Nutritional guidance given - start off with easy greens to digest due to recent GI upset - bluberry yogurt and avocado and cooked broccoli Dose: hold today's dose then resume 3.75mg x 2 days/ 5mg x 5 days F/U INR: 05/08/25 Patient verbalizes understanding of instructions given Anti-Coag Initial Assessment Social Hx Patient Tobacco Use Status: Current everyday Tobacco user alcohol intake: never Coding Level of Care Code Est Patient Level 1 Diagnoses Current use of anticoagulant therapy Z79.01 Results AMB INR Fingerstick AMB INR Fingerstick 3.5 Last Edit by Tangela Sam RN on 04/26/25 08:46 manual entry Assessment & Plan Assessment & Plan (1) Current use of anticoagulant therapy: Code(s): Z79.01 - prison (current) use of anticoagulants Category: Medical
== END 2025-04-26 09:07 | disposition home or self-care (01) ==
LOC: HO.ACS 08:25
PROVIDERS: PCP Internal Medicine; Visit Provider Internal Medicine Medical Oncology
DX: Z79.01 Long term (current) use of anticoagulants (principal)

== ENCOUNTER → 2025-04-26 08:25 | Outpatient (BNVA) | payer OTHER, SELFPAY | PROVIDERS: PCP Internal Medicine; Visit Provider Internal Medicine Medical Oncology | DX: Z79.01 Long term (current) use of anticoagulants (principal); Z86.718 Personal history of other venous thrombosis and embolism; Z51.81 Encounter for therapeutic drug level monitoring | CPT/HCPCS: 85610; 99211 ==

== ENCOUNTER 2025-05-08 08:40 | Outpatient (AMB) | payer OTHER, SELFPAY ==
--- OUTSIDE RECORDS SUMMARY | 2025-05-08 08:54 | XMS_ITS | Encounter Summary ---
Author Organization [facility] Address [address] [place] [address] Phone Care Team Providers Care Time Study Technician Name Role Phone Sahra Son MD Primary Care Provider + Encounter Details Date Type Department Care Team ([facility] Contact Info) Description 09/28/2022 Documentation Only [facility] [address] [place] [address] India Davalos [address] [place] [address] Social History Tobacco Use Types [...] [facility] Contact Info) Description 06/05/2025 2:50 PM EST Office Visit [facility] [address] [place] [address] Barry Reyes MD [address] [place] [address] [place] [address] documented as of this encounter Visit Diagnoses Not on filedocumented in this encounter Care Teams Time Study Technician Relationship Specialty Start Date End Date Sahra Son MD [address] [address] PCP - General Internal Medicine 10/28/22 documented as of this encounter
--- OUTSIDE RECORDS SUMMARY | 2025-05-08 08:54 | XMS_ITS | Encounter Summary ---
Author Organization [facility] Address [address] [place] [address] Phone Care Team Providers Care Agricultural Produce Washer Name Role Phone Sahra Son MD Primary Care Provider + Encounter Details Date Type Department Care Team ([facility] Contact Info) Description 09/28/2022 Documentation Only [facility] [address] [place] [address] India Davalos [address] [place] [address] Social History Tobacco Use Types [...] Team ([facility] Contact Info) Description 06/05/2025 2:50 PM EST Office Visit [facility] [address] [place] [address] Barry Reyes MD [address] [place] [address] [place] [address] documented as of this encounter Visit Diagnoses Not on filedocumented in this encounter Care Teams Agricultural Produce Washer Relationship Specialty Start Date End Date Sahra Son MD [address] [address] PCP - General Internal Medicine 10/28/22 documented as of this encounter
--- OUTSIDE RECORDS SUMMARY | 2025-05-08 08:54 | XMS_ITS | Encounter Summary ---
Author Organization [facility] Address [address] [place] [address] Phone Care Team Providers Care Welder Fitter Helper Name Role Phone Sahra Son MD Primary Care Provider + Encounter Details Date Type Department Care Team ([facility] Contact Info) Description 09/28/2022 Documentation Only [facility] [address] [place] [address] India Davalos [address] [place] [address] Social History Tobacco Use Types [...] [facility] Contact Info) Description 06/05/2025 2:50 PM EST Office Visit [facility] [address] [place] [address] Barry Reyes MD [address] [place] [address] [place] [address] documented as of this encounter Visit Diagnoses Not on filedocumented in this encounter Care Teams Welder Fitter Helper Relationship Specialty Start Date End Date Sahra Son MD [address] [address] PCP - General Internal Medicine 10/28/22 documented as of this encounter
--- OUTSIDE RECORDS SUMMARY | 2025-05-08 08:54 | XMS_ITS | Encounter Summary ---
Author Organization [facility] Address [address] [place] [address] Phone Care Team Providers Care Medical Record Librarians Teacher Name Role Phone Sahra Son MD Primary Care Provider + Encounter Details Date Type Department Care Team ([facility] Contact Info) Description 03/22/2024 Documentation Only [facility] [address] [place] [address] India Davalos [address] [place] [address] Social History Tobacco Use Types [...] [facility] [address] [place] [address] Barry Reyes MD [address] [place] [address] [place] [address] documented as of this encounter Visit Diagnoses Not on filedocumented in this encounter Care Teams Medical Record Librarians Teacher Relationship Specialty Start Date End Date Sahra Son MD [address] [address] PCP - General Internal Medicine 10/28/22 documented as of this encounter
--- OUTSIDE RECORDS SUMMARY | 2025-05-08 08:54 | XMS_ITS | Encounter Summary ---
Author Organization [facility] Address [address] [place] [address] Phone Care Team Providers Care Chips Screen Tender Name Role Phone Sahra Son MD Primary Care Provider + Encounter Details Date Type Department Care Team ([facility] Contact Info) Description 06/17/2022 Documentation Only [facility] [address] [place] [address] India Davalos [address] [place] [address] Social History Tobacco Use [...] [facility] [address] [place] [address] Barry Reyes MD [address] [place] [address] [place] [address] documented as of this encounter Visit Diagnoses Not on filedocumented in this encounter Care Teams Chips Screen Tender Relationship Specialty Start Date End Date Sahra Son MD [address] [address] PCP - General Internal Medicine 10/28/22 documented as of this encounter
--- OUTSIDE RECORDS SUMMARY | 2025-05-08 08:54 | XMS_ITS | Encounter Summary ---
Author Organization [facility] Address [address] [place] [address] Phone Care Team Providers Care Manager Wellness Name Role Phone Sahra Son MD Primary Care Provider + Encounter Details Date Type Department Care Team ([facility] Contact Info) Description 06/16/2022 Documentation Only [facility] [address] [place] [address] India Davalos [address] [place] [address] Social History Tobacco Use Types [...] [facility] [address] [place] [address] Barry Reyes MD [address] [place] [address] [place] [address] documented as of this encounter Visit Diagnoses Not on filedocumented in this encounter Care Teams Manager Wellness Relationship Specialty Start Date End Date Sahra Son MD [address] [address] PCP - General Internal Medicine 10/28/22 documented as of this encounter
--- OUTSIDE RECORDS SUMMARY | 2025-05-08 08:54 | XMS_ITS | Encounter Summary ---
Author Organization [facility] Address [address] [place] [address] Phone Care Team Providers Care Rn Plastic Surgery Name Role Phone Sahra Son MD Primary Care Provider + Encounter Details Date Type Department Care Team ([facility] Contact Info) Description 09/28/2022 Documentation Only [facility] [address] [place] [address] India Davalos [address] [place], [place] [...] ([facility] Contact Info) Description 06/05/2025 2:50 PM EST Office Visit [facility] [address] [place] [address] Barry Reyes MD [address] [place] [address] [place] [address] documented as of this encounter Visit Diagnoses Not on filedocumented in this encounter Care Teams Rn Plastic Surgery Relationship Specialty Start Date End Date Sahra Son MD [address] [address] PCP - General Internal Medicine 10/28/22 documented as of this encounter
--- OUTSIDE RECORDS SUMMARY | 2025-05-08 08:54 | XMS_ITS | Encounter Summary ---
Author Organization [facility] Address [address] [place] [address] Phone Care Team Providers Care Forestry Contractor Name Role Phone Sahra Son MD Primary Care Provider + Encounter Details Date Type Department Care Team ([facility] Contact Info) Description 03/23/2024 Documentation Only [facility] [address] [place] [address] India Davalos [address] [place], [place] [...] [facility] [address] [place] [address] Barry Reyes MD [address] [place] [address] [place] [address] documented as of this encounter Visit Diagnoses Not on filedocumented in this encounter Care Teams Forestry Contractor Relationship Specialty Start Date End Date Sahra Son MD [address] [address] PCP - General Internal Medicine 10/28/22 documented as of this encounter
--- OUTSIDE RECORDS SUMMARY | 2025-05-08 08:54 | XMS_ITS | Encounter Summary ---
Author Organization [facility] Address [address] [place] [address] Phone Care Team Providers Care Radio Script Writer Name Role Phone Sahra Son MD Primary Care Provider + Encounter Details Date Type Department Care Team (Late Contact Info) Description 12/22/2024 Orders Only [facility] [address] [address] India Davalos [address] [place] [address] Anemia in chronic kidney disease; [...] [facility] [address] [address] Barry Reyes MD [address] [facility] [address] [place] [address] documented as of this encounter Visit Diagnoses Diagnosis Anemia in chronic kidney disease Other iron deficiency anemia Chronic kidney disease, stage 2 (mild) documented in this encounter Care Teams Radio Script Writer Relationship Specialty Start Date End Date Sahra Son MD [facility] [place] [address] PCP - General Internal Medicine 10/28/22 documented as of this encounter
--- OUTSIDE RECORDS SUMMARY | 2025-05-08 08:54 | XMS_ITS | Encounter Summary ---
Author Organization [facility] Address [address] [place] [address] Phone Care Team Providers Care Make Ready Worker Name Role Phone Sahra Son MD Primary Care Provider + Encounter Details Date Type Department Care Team (Late Contact Info) Description 03/03/2024 Orders Only [facility] [address] [place] [address] India Davalos [address] [place] [address] Chronic kidney disease, stage 2 [...] Visit [facility] [address] [place] [address] Barry Reyes MD [address] [place] [address] [place] [address] documented as of this encounter [...] 3.0 - 4.3 mg/dL [facility] Blood specimen (specimen) Venous blood / Unknown 03/24/2024 10:37 AM EST 03/24/2024 Barry Reyes MD LAB BLOOD ORDERABLES Final Re sult [facility] [address] [place] [address] * Ferritin (03/24/2024 10:37 AM EST) Ferritin 37 15 - 150 ng/mL [facility] Blood specimen (specimen) Venous blood / Unknown 03/24/2024 10:37 AM EST 03/24/2024 Barry Reyes MD LAB BLOOD ORDERABLES Final Re sult Performing Organization Address [facility] Co de Phone Number [facility] [address] [place] [address] * Iron Panel (Fe, TIBC, TSAT) (03/24/2024 10:37 AM EST) TIBC 293 250 - 450 ug/dL [facility] UIBC 247 118 - 369 ug/dL [facility] Iron 46 27 - 139 ug/dL [facility] Iron Saturation (TSat) 16 15 - 55 % [facility] Blood specimen (specimen) Venous blood / Unknown 03/24/2024 10:37 AM EST 03/24/2024 Barry Reyes MD LAB BLOOD ORDERABLES Final Re sult Performing Organization Address City/[facility]/ZIP Co de Phone Number [facility] [address] [place] [address] * (ABNORMAL) CBC and Differential (03/24/2024 10:37 AM EST) [facility] WBC 6.0 3.4 - 10.8 x10E3/uL [...] 0.0 - 0.1 x10E3/uL [facility] Blood specimen (specimen) Venous blood / Unknown 03/24/2024 10:37 AM EST 03/24/2024 us Barry Reyes MD LAB BLOOD ORDERABLES Final Re sult [facility] [address] [place] [address] documented in this encounter Visit Diagnoses Diagnosis Chronic kidney disease, stage 2 (mild) Anemia in chronic kidney disease Iron deficiency anemia, not otherwise specified documented in this encounter Care Teams Make Ready Worker Relationship Specialty Start Date End Date Sahra Son MD [address] [address] PCP - General Internal Medicine 10/28/22 documented as of this encounter
--- OUTSIDE RECORDS SUMMARY | 2025-05-08 08:54 | XMS_ITS | Encounter Summary ---
Author Organization [facility] Address [address] [place] [address] Phone Care Team Providers Care Yeast Pusher Name Role Phone Sahra Son MD Primary Care Provider + Encounter Details Date Type Department Care Team ([facility] Contact Info) Description 06/18/2021 Documentation Only [facility] [address] [place] [address] India Davalos [address] [place] [address] Social History Tobacco Use Types [...] [facility] [address] [place] [address] Barry Reyes MD [address] [place] [address] [place] [address] documented as of this encounter Visit Diagnoses Not on filedocumented in this encounter Care Teams Yeast Pusher Relationship Specialty Start Date End Date Sahra Son MD [address] [address] PCP - General Internal Medicine 10/28/22 documented as of this encounter
--- OUTSIDE RECORDS SUMMARY | 2025-05-08 08:54 | XMS_ITS | Encounter Summary ---
Author Organization [facility] Address [address] [place] [address] Phone Care Team Providers Care Forensic Computer Examiner Name Role Phone Sahra Son MD Primary Care Provider + Encounter Details Date Type Department Care Team ([facility] Contact Info) Description 06/22/2022 Documentation Only [facility] [address] [place] [address] India Davalos [address] [place] [address] Social History Tobacco Use Types [...] [facility] [address] [place] [address] Barry Reyes MD [address] [place] [address] [place] [address] documented as of this encounter Visit Diagnoses Not on filedocumented in this encounter Care Teams Forensic Computer Examiner Relationship Specialty Start Date End Date Sahra Son MD [address] [address] PCP - General Internal Medicine 10/28/22 documented as of this encounter
--- OUTSIDE RECORDS SUMMARY | 2025-05-08 08:54 | XMS_ITS | Encounter Summary ---
Author Organization [facility] Address [address] [place] [address] Phone Care Team Providers Care Sql Etl Developer Name Role Phone Sahra Son MD Primary Care Provider + Encounter Details Date Type Department Care Team ([facility] Contact Info) Description 09/18/2022 Documentation Only [facility] [address] [place] [address] India Davalos [address] [place] [address] Social History Tobacco Use Types [...] Encounters Date Type Department Care Team ([facility] Contact Info) Description 06/05/2025 2:50 PM EST Office Visit [facility] [address] [place] [address] Barry Reyes MD [address] [place] [address] [place] [address] documented as of this encounter Visit Diagnoses Not on filedocumented in this encounter Care Teams Sql Etl Developer Relationship Specialty Start Date End Date Sahra Son MD [address] [address] PCP - General Internal Medicine 10/28/22 documented as of this encounter
--- OUTSIDE RECORDS SUMMARY | 2025-05-08 08:55 | XMS_ITS | Encounter Summary ---
Author Organization [facility] Address [address] [place] [address] Phone Care Team Providers Care Nanotechnology Engineering Technician Name Role Phone Sahra Son MD Primary Care Provider + Encounter Details Date Type Department Care Team ([facility] Contact Info) Description 04/14/2022 Documentation Only [facility] [address] [place] [address] India Davalos [address] [place] [address] Social History Tobacco Use Types [...] Team ([facility] Contact Info) Description 06/05/2025 2:50 PM EST Office Visit [facility] [address] [place] [address] Barry Reyes MD [address] [place] [address] [place] [address] documented as of this encounter Visit Diagnoses Not on filedocumented in this encounter Care Teams Nanotechnology Engineering Technician Relationship Specialty Start Date End Date Sahra Son MD [address] [address] PCP - General Internal Medicine 10/28/22 documented as of this encounter
--- OUTSIDE RECORDS SUMMARY | 2025-05-08 08:55 | XMS_ITS | Encounter Summary ---
Author Organization [facility] Address [address] [place] [address] Phone Care Team Providers Care Library Acquisitions Technician Name Role Phone Sahra Son MD Primary Care Provider + Encounter Details Date Type Department Care Team ([facility] Contact Info) Description 11/19/2023 Documentation Only [facility] [address] [place] [address] India Davalos [address] [place] [address] Social History Tobacco Use Types [...] [facility] [address] [place] [address] Barry Reyes MD [address] [place] [address] [place] [address] documented as of this encounter Visit Diagnoses Not on filedocumented in this encounter Care Teams Library Acquisitions Technician Relationship Specialty Start Date End Date Sahra Son MD [address] [address] PCP - General Internal Medicine 10/28/22 documented as of this encounter
--- OUTSIDE RECORDS SUMMARY | 2025-05-08 08:55 | XMS_ITS | Encounter Summary ---
Author Organization [facility] Address [address] [place] [address] Phone Care Team Providers Care Education And Development Manager Name Role Phone Sahra Son MD Primary Care Provider + Encounter Details Date Type Department Care Team ([facility] Contact Info) Description 03/11/2023 Documentation Only [facility] [address] [place] [address] India Davalos [address] [place] [address] Social History Tobacco Use [...] Encounters Date Type Department Care Team ([facility] Contact Info) Description 06/05/2025 2:50 PM EST Office Visit [facility] [address] [place] [address] Barry Reyes MD [address] [place] [address] [place] [address] documented as of this encounter Visit Diagnoses Not on filedocumented in this encounter Care Teams Education And Development Manager Relationship Specialty Start Date End Date Sahra Son MD [address] [address] PCP - General Internal Medicine 10/28/22 documented as of this encounter
--- OUTSIDE RECORDS SUMMARY | 2025-05-08 08:55 | XMS_ITS | Encounter Summary ---
Author Organization [facility] Address [address] [place] [address] Phone Care Team Providers Care Washcoat Wiper Name Role Phone Sahra Son MD Primary Care Provider + Encounter Details Date Type Department Care Team (Late st Contact Info) Description 05/17/2023 Orders Only [facility] [address] [place] [address] Arlene Alston PA [address] [place] [address] Chronic kidney disease, stage 2 [...] Transplant Services Of [facility] [address] [place] [address] Barry Reyes MD [address] [place] [address] documented as of this encounter [...] [facility] Iron Saturation (TSat) 17(L) (20-55) % [facility] Comment: Testing performed or reported by [facility], a Service of [address] [address] Luis A Bailey MD, Scuba Diving Teacher CLIA# [id number] Blood specimen (specimen) Venous blood / Unknown 06/08/2023 8:36 AM EST 06/08/2023 8:39 AM EST Arlene CARTER LAB BLOOD ORDERABLES Final Re sult Performing Organization Address [facility] Co de Phone Number [facility] * Vitamin D 25 hydroxy (06/08/2023 8:36 AM EST) [facility] Vitamin D, 25-Hydroxy 24.8 (20-50) NG/ML [facility] Comment: Testing performed or reported by [facility], a Service of [facility], [address] [place] [address] Luis A Bailey MD, Scuba Diving Teacher CLIA# [id number] Blood specimen (specimen) Venous blood / Unknown 06/08/2023 8:36 AM EST 06/08/2023 8:39 AM EST Arlene CARTER LAB BLOOD ORDERABLES Final Re sult Performing Organization Address City/[facility] Co de Phone Number [facility] * (ABNORMAL) Renal function panel (06/08/2023 8:36 AM EST) [facility] Glucose 166(H) (70-99) MG/DL [facility] BUN 19 (8-23) MG/DL [facility] Creatinine 1.0 (0.5-1.0) MG/DL [facility] Sodium 138 (133-145) MMOL/L [facility] Potassium 4.9 (3.6-5.2) MMOL/L [facility] Chloride 101 (98-107) MMOL/L [facility] Bicarbonate (CO2) 27 (22-29) MMOL/L [facility] Anion Gap 10 (4-17) [facility] Albumin 4.2 (3.4-4.8) GM/DL [facility] Calcium 9.1 (8.6-10.5) MG/DL [facility] Phosphorus, Serum 3.4 (2.5-4.5) MG/DL [facility] Est GFR Non 66 ML/MIN/1.7 3 M2 [facility] Comment: Creatinine based estimated glomerular filtration (eGFR) in adults is calculated using the National Kidney Foundation recommended 2020 CKD-EPI equation. Estimates GFR from serum creatinine, age and sex. Testing performed or reported by [facility], a Service of [address] [address] Luis A Bailey MD, Scuba Diving Teacher CLIA# [id number] Blood specimen (specimen) Venous blood / Unknown 06/08/2023 8:36 AM EST 06/08/2023 8:39 AM EST Arlene CARTER LAB BLOOD ORDERABLES Final Re sult Performing Organization Address [facility] de Phone Number [facility] * Magnesium (06/08/2023 8:36 AM EST) Magnesium 2.1 (1.6-2.3) mg/dL [facility] Comment: Testing performed or reported by [facility], a Service of [address] [address] Luis A Bailey MD, Scuba Diving Teacher CLIA# [id number] Blood specimen (specimen) Venous blood / Unknown 06/08/2023 8:36 AM EST 06/08/2023 8:39 AM EST Arlene CARTER LAB BLOOD ORDERABLES Final Re sult [facility] * (ABNORMAL) Hemoglobin A1c (06/08/2023 8:36 AM EST) Hemoglobin A1C 7.2(H) (4.0-5.6) % [facility] Comment: MONITORING: In known diabetic patients, hemoglobin A1c targets should be discussed with health care provider. DIAGNOSTIC USE: The [place] [employer] (ADA) and the [...] Supplement 1 Testing performed or reported by [facility], a Service of [facility], [address] [place] [address] Luis A Bailey MD, Scuba Diving Teacher [facility]# [id number] Blood specimen (specimen) Venous blood / Unknown 06/08/2023 8:36 AM EST 06/08/2023 8:38 AM EST Arlene CARTER LAB BLOOD ORDERABLES Final Re sult [facility] * (ABNORMAL) CBC and differential (06/08/2023 8:36 AM EST) White Blood Cells 5.2 (4.0-11.0 ) K/MM3 [facility] RBC 5.08 (4.20-5.4 0) M/MM3 [facility] Hgb 10.1(L) (11.7-15. 5) GM/DL [facility] Hematocrit 32.9(L) (35.7-45. 8) % [facility] MCV 64.8(L) (80.0-100 .0) FL [facility] MCH 19.9(L) (27.0-34. 0) PG [facility] MCHC 30.7(L) (33.0-37. 0) g/dL [facility] Platelets 191 (150-460) K/MM3 [facility] RDW-SD 40.3 (<47.0) FL [facility] MPV NOT MEASURED (9.4-12.4 ) [place] [facility] nRBC Count 0.0 #/100 WBC'S [facility] NRBC Absolute 0.0 K/MM3 [facility] Neutrophils Abs Auto 3.5 (1.3-7.0) K/MM3 [...] [facility] Comment: Testing performed or reported by [facility], a Service of [facility], [address] [place] [address] Luis A Bailey MD, Scuba Diving Teacher [facility]# [id number] Blood specimen (specimen) Venous blood / Unknown 06/08/2023 8:36 AM EST 06/08/2023 8:38 AM EST Arlene CARTER LAB BLOOD ORDERABLES Final Re sult [facility] documented in this encounter Visit Diagnoses Diagnosis Chronic kidney disease, stage 2 (mild) Essential (primary) hypertension Anemia in chronic kidney disease Antiphospholipid syndrome (HCC) Type 2 diabetes mellitus, not otherwise specified (HCC) Bleeding hemorrhoids documented in this encounter Care Teams Washcoat Wiper Relationship Specialty Start Date End Date Sahra Son MD [address] [address] PCP - General Internal Medicine 10/28/22 documented as of this encounter
--- OUTSIDE RECORDS SUMMARY | 2025-05-08 08:55 | XMS_ITS | Encounter Summary ---
Author Organization [facility] Address [address] [place] [address] Phone Care Team Providers Care Impregnation Operator Name Role Phone Sahra Son MD Primary Care Provider + Encounter Details Date Type Department Care Team (Late Contact Info) Description 01/31/2024 Orders Only [facility] [address] [place] [address] Arlene Alston PA [address] [place] [address] [place] [address] Chronic kidney disease, stage 2 [...] [facility] [address] [place] [address] Barry Reyes MD [address] [place] [address] [place] [address] documented as of this encounter Visit Diagnoses Diagnosis Chronic kidney disease, stage 2 (mild) Essential (primary) hypertension Iron deficiency anemia, not otherwise specified Type 2 diabetes mellitus, not otherwise specified (HCC) Antiphospholipid syndrome (HCC) documented in this encounter Care Teams Impregnation Operator Relationship Specialty Start Date End Date Sahra Son MD [address] [address] PCP - General Internal Medicine 10/28/22 documented as of this encounter
--- OUTSIDE RECORDS SUMMARY | 2025-05-08 08:55 | XMS_ITS | Encounter Summary ---
Author Organization [facility] Address [address] [place] [address] Phone Care Team Providers Care Division Order Technician Name Role Phone Sahra Son MD Primary Care Provider + Encounter Details Date Type Department Care Team ([facility] Contact Info) Description 12/23/2021 Documentation Only [facility] [address] [place] [address] Juan Jose Li MD [address] [place] [address] [place] [address] Social History Tobacco Use Types [...] Services Of [address] [place] [address] Barry Reyes MD [address] [address] [place] [address] documented as of this encounter Visit Diagnoses Not on filedocumented in this encounter Care Teams Division Order Technician Relationship Specialty Start Date End Date Sahra Son MD [address] [address] PCP - General Internal Medicine 10/28/22 documented as of this encounter
--- OUTSIDE RECORDS SUMMARY | 2025-05-08 08:55 | XMS_ITS | Encounter Summary ---
Author Organization [facility] Address [address] [place] [address] Phone Care Team Providers Care Web Art Director Name Role Phone Sahra Son MD Primary Care Provider + Encounter Details Date Type Department Care Team ([facility] Contact Info) Description 12/31/2023 Documentation Only [facility] [address] [place] [address] India Davalos [address] [place] [address] Social History Tobacco Use Types [...] [facility] [address] [place] [address] Barry Reyes MD [address] [place] [address] [place] [address] documented as of this encounter Visit Diagnoses Not on filedocumented in this encounter Care Teams Web Art Director Relationship Specialty Start Date End Date Sahra Son MD [address] [address] PCP - General Internal Medicine 10/28/22 documented as of this encounter
--- OUTSIDE RECORDS SUMMARY | 2025-05-08 08:55 | XMS_ITS | Encounter Summary ---
Author Organization [facility] Address [address] [place] [address] Phone Care Team Providers Care Edger Feeder Name Role Phone Sahra Son MD Primary Care Provider + Encounter Details Date Type Department Care Team ([facility] Contact Info) Description 11/05/2023 Documentation Only [facility] [address] [place] [address] India Davalos [address] [place] [address] Social History Tobacco Use [...] [facility] [address] [place] [address] Barry Reyes MD [address] [place] [address] [place] [address] documented as of this encounter Visit Diagnoses Not on filedocumented in this encounter Care Teams Edger Feeder Relationship Specialty Start Date End Date Sahra Son MD [address] [address] PCP - General Internal Medicine 10/28/22 documented as of this encounter
--- OUTSIDE RECORDS SUMMARY | 2025-05-08 08:55 | XMS_ITS | Encounter Summary ---
Author Organization [facility] Address [address] [place] [address] Phone Care Team Providers Care Logistics Program Manager Name Role Phone Sahra Son MD Primary Care Provider + Encounter Details Date Type Department Care Team ([facility] Contact Info) Description 04/08/2022 Documentation Only [facility] [address] [place] [address] India Davalos [address] [place] [address] Social History Tobacco Use Types [...] [facility] [address] [place] [address] Barry Reyes MD [address] [place] [address] [place] [address] documented as of this encounter Visit Diagnoses Not on filedocumented in this encounter Care Teams Logistics Program Manager Relationship Specialty Start Date End Date Sahra Son MD [address] [address] PCP - General Internal Medicine 10/28/22 documented as of this encounter
--- OUTSIDE RECORDS SUMMARY | 2025-05-08 08:55 | XMS_ITS | Encounter Summary ---
Author Organization [facility] Address [address] [place] [address] Phone Care Team Providers Care Policyholder Information Clerk Name Role Phone Sahra Son MD Primary Care Provider + Encounter Details Date Type Department Care Team ([facility] Contact Info) Description 11/11/2023 Documentation Only [facility] [address] [place] [address] India Davalos [address] [place] [address] Social History Tobacco Use Types [...] [facility] [address] [place] [address] Barry Reyes MD [address] [place] [address] [place] [address] documented as of this encounter Visit Diagnoses Not on filedocumented in this encounter Care Teams Policyholder Information Clerk Relationship Specialty Start Date End Date Sahra Son MD [address] [address] PCP - General Internal Medicine 10/28/22 documented as of this encounter
--- OUTSIDE RECORDS SUMMARY | 2025-05-08 08:55 | XMS_ITS | Encounter Summary ---
Author Organization [facility] Address [address] [place] [address] Phone Care Team Providers Care International Trade Teacher Name Role Phone Sahra Son MD Primary Care Provider + Encounter Details Date Type Department Care Team ([facility] Contact Info) Description 11/17/2023 Documentation Only [facility] Of [address] [place] [address] India Davalos [address] [place], [place] [...] [facility] [address] [place] [address] Barry Reyes MD [address] [place] [address] [place] [address] documented as of this encounter Visit Diagnoses Not on filedocumented in this encounter Care Teams International Trade Teacher Relationship Specialty Start Date End Date Sahra Son MD [address] [address] PCP - General Internal Medicine 10/28/22 documented as of this encounter
--- OUTSIDE RECORDS SUMMARY | 2025-05-08 08:55 | XMS_ITS | Encounter Summary ---
Author Organization [facility] Address [address] [place] [address] Phone Care Team Providers Care Sales Account Manager Name Role Phone Sahra Son MD Primary Care Provider + Encounter Details Date Type Department Care Team (Late Contact Info) Description 02/04/2024 Orders Only [facility] [address] [place] [address] India Davalos [address] [place] [address] Chronic kidney disease, stage 2 [...] Of [facility] [address] [place] [address] Barry Reyes MD [address] [place] [address] [place] [address] documented as of this encounter [...] Glucose 169(H) 70 - 99 mg/dL [facility] BUN 16 8 - 27 mg/dL [facility] Creatinine 1.00 0.57 - 1.00 mg/dL [facility] eGFR CKD-EPI CR 2020 63 >59 mL/min/1.7 3 [facility] BUN/Creatinine Ratio 16 12 - 28 [facility] Sodium 138 134 - 144 mmol/L [facility] Potassium 4.8 3.5 - 5.2 mmol/L [facility] Chloride 100 96 - 106 mmol/L [facility] Bicarbonate (CO2) 22 20 - 29 mmol/L [facility] Calcium 9.1 8.7 - 10.3 mg/dL [facility] Albumin 4.1 3.9 - 4.9 g/dL [facility] Phosphorus 4.2 3.0 - 4.3 mg/dL [facility] Blood specimen (specimen) Venous blood / Unknown 02/22/2024 8:29 AM EDT 02/22/2024 Barry Reyes MD LAB BLOOD ORDERABLES Final Re sult Performing Organization Address City/[facility]/ZIP Co de Phone Number [facility] [address] [place] [address] * Ferritin (02/22/2024 8:29 AM EDT) Ferritin 47 15 - 150 ng/mL [facility] Blood specimen (specimen) Venous blood / Unknown 02/22/2024 8:29 AM EDT 02/22/2024 Barry Reyes MD LAB BLOOD ORDERABLES Final Re sult Performing Organization Address [facility] de Phone Number [facility] [address] [place] [address] * (ABNORMAL) Iron Panel (Fe, TIBC, TSAT) (02/22/2024 8:29 AM EDT) Iron 39 27 - 139 ug/dL [facility] TIBC 310 250 - 450 ug/dL [facility] UIBC 271 118 - 369 ug/dL [facility] Iron Saturation (TSat) 13(L) 15 - 55 % [facility] Blood specimen (specimen) Venous blood / Unknown 02/22/2024 8:29 AM EDT 02/22/2024 Barry Reyes MD LAB BLOOD ORDERABLES Final Re sult Performing Organization Address City/[facility]/ZIP Co de Phone Number [facility] [address] [place] [address] * (ABNORMAL) CBC and Differential (02/22/2024 8:29 AM EDT) [facility] WBC 5.9 3.4 - 10.8 x10E3/uL [facility] RBC 5.33(H) 3.77 - 5.28 x10E6/uL [facility] Hemoglobin 10.3(L) 11.1 - 15.9 g/dL [facility] Hematocrit 35.1 34.0 - 46.6 % [facility] MCV 66(L) 79 - 97 fL [facility] MCH 19.3(L) 26.6 - 33.0 pg [facility] MCHC 29.3(L) 31.5 - 35.7 g/dL [facility] RDW 19.3(H) 11.7 - 15.4 % [facility] Platelets 174 150 - 450 x10E3/uL [facility] Neutrophils Relative 71 Not Estab. % [facility] Lymphocytes Relative 21 Not Estab. % [facility] Monocytes 5 Not Estab. % [facility] Eosinophils Relative 1 Not Estab. % [facility] Basophils Relative 1 Not Estab. % [facility] Neutrophils Absolute 4.2 1.4 - 7.0 x10E3/uL [facility] Lymphocytes Absolute 1.3 0.7 - 3.1 x10E3/uL [facility] Monocytes Absolute 0.3 0.1 - 0.9 x10E3/uL [facility] Eosinophils Absolute 0.1 0.0 - 0.4 x10E3/uL [facility] Basophils Absolute 0.0 0.0 - 0.2 x10E3/uL [facility] Immature Granulocytes 1 Not Estab. % [facility] Immature Grans (Absolute) 0.0 0.0 - 0.1 x10E3/uL [facility] Blood specimen (specimen) Venous blood / Unknown 02/22/2024 8:29 AM EDT 02/22/2024 us Barry Reyes MD LAB BLOOD ORDERABLES Final Re sult [facility] [address] [place] [address] documented in this encounter Visit Diagnoses Diagnosis Chronic kidney disease, stage 2 (mild) Anemia in chronic kidney disease Iron deficiency anemia, not otherwise specified documented in this encounter Care Teams Sales Account Manager Relationship Specialty Start Date End Date Sahra Son MD [address] [place] [address] PCP - General Internal Medicine 10/28/22 documented as of this encounter
--- OUTSIDE RECORDS SUMMARY | 2025-05-08 08:55 | XMS_ITS | Encounter Summary ---
Author Organization [facility] Address [address] [place] [address] Phone Care Team Providers Care Sliver Former Name Role Phone Sahra Son MD Primary Care Provider + Encounter Details Date Type Department Care Team ([facility] Contact Info) Description 08/25/2024 Documentation Only [facility] Of [address] [place] [address] India Davalos [address] [place] [address] Social History Tobacco Use [...] [facility] Of [address] [place] [address] Barry Reyes MD [address] [place] [address] [place] [address] documented as of this encounter Visit Diagnoses Not on filedocumented in this encounter Care Teams Sliver Former Relationship Specialty Start Date End Date Sahra Son MD [address] [address] PCP - General Internal Medicine 10/28/22 documented as of this encounter
--- OUTSIDE RECORDS SUMMARY | 2025-05-08 08:55 | XMS_ITS | Encounter Summary ---
Author Organization [facility] Address [address] [place] [address] Phone Care Team Providers Care Web Weaver Name Role Phone Sahra Son MD Primary Care Provider + Encounter Details Date Type Department Care Team ([facility] Contact Info) Description 01/04/2024 Documentation Only [facility] [address] [place] [address] India Davalos [address] [place], [place] [...] [facility] [address] [place] [address] Barry Reyes MD [address] [place] [address] [place] [address] documented as of this encounter Visit Diagnoses Not on filedocumented in this encounter Care Teams Web Weaver Relationship Specialty Start Date End Date Sahra Son MD [address] [address] PCP - General Internal Medicine 10/28/22 documented as of this encounter
--- OUTSIDE RECORDS SUMMARY | 2025-05-08 08:55 | XMS_ITS | Encounter Summary ---
Author Organization [facility] Address [address] [place] [address] Phone Care Team Providers Care Senior Cobol Developer Name Role Phone Sahra Son MD Primary Care Provider + Encounter Details Date Type Department Care Team (Late Contact Info) Description 08/18/2024 Orders Only [facility] Of [address] [place] [address] India Davalos [address] [place] [address] Chronic kidney disease, stage 2 [...] Visit [facility] [address] [place] [address] Barry Reyes MD [address] [place] [address] [place] [address] documented as of this encounter Visit Diagnoses Diagnosis Chronic kidney disease, stage 2 (mild) Anemia in chronic kidney disease Iron deficiency anemia, not otherwise specified documented in this encounter Care Teams Senior Cobol Developer Relationship Specialty Start Date End Date Sahra Son MD [address]50 [place] [address] PCP - General Internal Medicine 10/28/22 documented as of this encounter
--- OUTSIDE RECORDS SUMMARY | 2025-05-08 08:55 | XMS_ITS | Encounter Summary ---
Author Organization [facility] Address [address] [place] [address] Phone Care Team Providers Care Qa Manager Name Role Phone Sahra Son MD Primary Care Provider + Encounter Details Date Type Department Care Team (Late st Contact Info) Description 07/07/2024 Orders Only [facility] [address] [place] [address] India Davalos [address] [place] [address] Anemia in chronic kidney disease; [...] Transplant Services Of [facility] [address] [place] [address] Barry Reyes MD [address] [facility] [place] [address] documented as of this encounter Visit Diagnoses Diagnosis Anemia in chronic kidney disease Other iron deficiency anemia Chronic kidney disease, stage 2 (mild) documented in this encounter Care Teams Qa Manager Relationship Specialty Start Date End Date Sahra Son MD [facility] [place] [address] PCP - General Internal Medicine 10/28/22 documented as of this encounter
--- OUTSIDE RECORDS SUMMARY | 2025-05-08 08:55 | XMS_ITS | Encounter Summary ---
Author Organization [facility] Address [address] [place] [address] Phone Care Team Providers Care Front Desk Officer Name Role Phone Sahra Son MD Primary Care Provider + Encounter Details Date Type Department Care Team ([facility] Contact Info) Description 03/11/2023 Documentation Only [facility] [address] [place] [address] India Davalos [address] [place], [place] [...] Encounters Date Type Department Care Team ([facility] Contact Info) Description 06/05/2025 2:50 PM EST Office Visit [facility] [address] [place] [address] Barry Reyes MD [address] [place] [address] [place] [address] documented as of this encounter Visit Diagnoses Not on filedocumented in this encounter Care Teams Front Desk Officer Relationship Specialty Start Date End Date Sahra Son MD [address] [address] PCP - General Internal Medicine 10/28/22 documented as of this encounter
--- OUTSIDE RECORDS SUMMARY | 2025-05-08 08:55 | XMS_ITS | Encounter Summary ---
Author Organization [facility] Address [address] [place] [address] Phone Care Team Providers Care Monotyper Name Role Phone Sahra Son MD Primary Care Provider + Encounter Details Date Type Department Care Team ([facility] Contact Info) Description 01/06/2022 Documentation Only [facility] [address] [place] [address] Juan Jose Li MD [address] [place] [address] [place] [address] Social History Tobacco Use Types [...] ([facility] Contact Info) Description 06/05/2025 2:50 PM EST Office Visit [facility] [address] [place] [address] Barry Reyes MD [address] [facility] [address] [place] [address] documented as of this encounter Visit Diagnoses Not on filedocumented in this encounter Care Teams Monotyper Relationship Specialty Start Date End Date Sahra Son MD [address] [address] PCP - General Internal Medicine 10/28/22 documented as of this encounter
--- OUTSIDE RECORDS SUMMARY | 2025-05-08 08:55 | XMS_ITS | Encounter Summary ---
Author Organization [facility] Address [address] [place] [address] Phone Care Team Providers Care Clock Repair Technician Name Role Phone Sahra Son MD Primary Care Provider + Encounter Details Date Type Department Care Team ([facility] Contact Info) Description 06/09/2023 Documentation Only [facility] Of [address] [place] [address] India Davalos [address] [place] [address] Social History Tobacco Use Types [...] [facility] [address] [place] [address] Barry Reyes MD [address] [place] [address] [place] [address] documented as of this encounter Visit Diagnoses Not on filedocumented in this encounter Care Teams Clock Repair Technician Relationship Specialty Start Date End Date Sahra Son MD [address] [address] PCP - General Internal Medicine 10/28/22 documented as of this encounter
--- OUTSIDE RECORDS SUMMARY | 2025-05-08 08:55 | XMS_ITS | Encounter Summary ---
Author Organization [facility] Address [address] [place] [address] Phone Care Team Providers Care Information Assurance Officer Name Role Phone Sahra Son MD Primary Care Provider + Encounter Details Date Type Department Care Team ([facility] Contact Info) Description 11/21/2021 Documentation Only [facility] [address] [place] [address] India Davalos 2[address] [place] [address] Social History Tobacco Use Types [...] [facility] [address] [place] [address] Barry Reyes MD [address] [place] [address] [place] [address] documented as of this encounter Visit Diagnoses Not on filedocumented in this encounter Care Teams Information Assurance Officer Relationship Specialty Start Date End Date Sahra Son MD [address] [address] PCP - General Internal Medicine 10/28/22 documented as of this encounter
--- OUTSIDE RECORDS SUMMARY | 2025-05-08 08:55 | XMS_ITS | Encounter Summary ---
Author Organization [facility] Address [address] [place] [address] Phone Care Team Providers Care Physician General Practice Name Role Phone Sahra Son MD Primary Care Provider + Encounter Details Date Type Department Care Team ([facility] Contact Info) Description 08/11/2022 Documentation Only [facility] Of [address] [place] [address] India Davalos [address] [place] [address] Social History Tobacco Use Types [...] [facility] [address] [place] [address] Barry Reyes MD [address] [place] [address] [place] [address] documented as of this encounter Visit Diagnoses Not on filedocumented in this encounter Care Teams Physician General Practice Relationship Specialty Start Date End Date Sahra Son MD [address] [address] PCP - General Internal Medicine 10/28/22 documented as of this encounter
--- OUTSIDE RECORDS SUMMARY | 2025-05-08 08:55 | XMS_ITS | Encounter Summary ---
Author Organization [facility] Address [address] [place] [address] Phone Care Team Providers Care Metal Furniture Glazier Name Role Phone Sahra Son MD Primary Care Provider + Encounter Details Date Type Department Care Team ([facility] Contact Info) Description 08/24/2024 Documentation Only [facility] [address] [place] [address] India Davalos [address] [place] [address] Social History Tobacco Use Types [...] [facility] [address] [place] [address] Barry Reyes MD [address] [place] [address] [place] [address] documented as of this encounter Visit Diagnoses Not on filedocumented in this encounter Care Teams Metal Furniture Glazier Relationship Specialty Start Date End Date Sahra Son MD [address] [address] PCP - General Internal Medicine 10/28/22 documented as of this encounter
--- OUTSIDE RECORDS SUMMARY | 2025-05-08 08:55 | XMS_ITS | Encounter Summary ---
Author Organization [facility] Address [address] [place] [address] Phone Care Team Providers Care Quality Assurance Supervisor Name Role Phone Sahra Son MD Primary Care Provider + Encounter Details Date Type Department Care Team ([facility] Contact Info) Description 08/22/2021 Documentation Only [facility] Of [address] [place] [address] India Davalos [address] [place] [address] Social History Tobacco Use Types [...] [facility] [address] [place] [address] Barry Reyes MD [address] [place] [address] [place] [address] documented as of this encounter Visit Diagnoses Not on filedocumented in this encounter Care Teams Quality Assurance Supervisor Relationship Specialty Start Date End Date Sahra Son MD [address] [address] PCP - General Internal Medicine 10/28/22 documented as of this encounter
--- OUTSIDE RECORDS SUMMARY | 2025-05-08 08:55 | XMS_ITS | Encounter Summary ---
Author Organization [facility] Address [address] [place] [address] Phone Care Team Providers Care Home Therapy Clinician Name Role Phone Sahra Son MD Primary Care Provider + Encounter Details Date Type Department Care Team ([facility] Contact Info) Description 11/11/2023 Documentation Only [facility] [address] [place] [address] India Davalos [address] [place] [address] Social History Tobacco Use Types [...] [facility] [address] [place] [address] Barry Reyes MD [address] [place] [address] [place] [address] documented as of this encounter Visit Diagnoses Not on filedocumented in this encounter Care Teams Home Therapy Clinician Relationship Specialty Start Date End Date Sahra Son MD [address] [address] PCP - General Internal Medicine 10/28/22 documented as of this encounter
--- OUTSIDE RECORDS SUMMARY | 2025-05-08 08:55 | XMS_ITS | Encounter Summary ---
Author Organization [facility] Address [address] [place] [address] Phone Care Team Providers Care Carpenter Rough Name Role Phone Sahra Son MD Primary Care Provider + Encounter Details Date Type Department Care Team ([facility] Contact Info) Description 08/11/2022 Documentation Only [facility] Of [address] [place] [address] India Davalos [address] [place] [address] Social History Tobacco Use Types [...] [facility] [address] [place] [address] Barry Reyes MD [address] [place] [address] [place] [address] documented as of this encounter Visit Diagnoses Not on filedocumented in this encounter Care Teams Carpenter Rough Relationship Specialty Start Date End Date Sahra Son MD [address] [address] PCP - General Internal Medicine 10/28/22 documented as of this encounter
--- OUTSIDE RECORDS SUMMARY | 2025-05-08 08:55 | XMS_ITS | Encounter Summary ---
Author Organization [facility] Address [address] [place] [address] Phone Care Team Providers Care Welding Machine Operator/Tender Name Role Phone Sahra Son MD Primary Care Provider + Encounter Details Date Type Department Care Team ([facility] Contact Info) Description 03/11/2023 Documentation Only [facility] [address] [place] [address] India Davalos [address] [place] [address] Social History Tobacco Use Types [...] Upcoming Encounters Date Type Department Care Team ([facility] Contact Info) Description 06/05/2025 2:50 PM EST Office Visit [facility] [address] [place] [address] Barry Reyes MD [address] [place] [address] [place] [address] documented as of this encounter Visit Diagnoses Not on filedocumented in this encounter Care Teams Welding Machine Operator/Tender Relationship Specialty Start Date End Date Sahra Son MD [address] [address] PCP - General Internal Medicine 10/28/22 documented as of this encounter
--- OUTSIDE RECORDS SUMMARY | 2025-05-08 08:55 | XMS_ITS | Encounter Summary ---
Author Organization [facility] Address [address] [place] [address] Phone Care Team Providers Care Hassock Maker Name Role Phone Sahra Son MD Primary Care Provider + Encounter Details Date Type Department Care Team ([facility] Contact Info) Description 04/26/2025 Documentation Only [facility] [address] [place] [address] India Davalos [address] [place] [address] Social History Tobacco Use Types [...] Upcoming Encounters Date Type Department Care Team ([facility] Contact Info) Description 06/05/2025 2:50 PM EST Office Visit [facility] [address] [place] [address] Barry Reyes MD [address] [place] [address] [place] [address] documented as of this encounter Visit Diagnoses Not on filedocumented in this encounter Care Teams Hassock Maker Relationship Specialty Start Date End Date Sahra Son MD [address] [address] PCP - General Internal Medicine 10/28/22 documented as of this encounter
--- OUTSIDE RECORDS SUMMARY | 2025-05-08 08:55 | XMS_ITS | Encounter Summary ---
Author Organization [facility] Address [address] [place] [address] Phone Care Team Providers Care Clinic Nurse Name Role Phone Sahra Son MD Primary Care Provider + Encounter Details Date Type Department Care Team ([facility] Contact Info) Description 11/11/2023 Documentation Only [facility] Of [address] [place] [address] India Davalos [address] [place] [address] Social History Tobacco Use Types [...] [facility] [address] [place] [address] Barry Reyes MD [address] [place] [address] [place] [address] documented as of this encounter Visit Diagnoses Not on filedocumented in this encounter Care Teams Clinic Nurse Relationship Specialty Start Date End Date Sahra Son MD [address] [address] PCP - General Internal Medicine 10/28/22 documented as of this encounter
--- OUTSIDE RECORDS SUMMARY | 2025-05-08 08:55 | XMS_ITS | Encounter Summary ---
Author Organization [facility] Address [address] [place] [address] Phone Care Team Providers Care Babbitter Name Role Phone Sahra Son MD Primary Care Provider + Encounter Details Date Type Department Care Team (Late Contact Info) Description 06/30/2020 Orders Only [facility] [address] [place] [address] Carol Whelan [address] [place] [address] Iron deficiency anemia, not otherwise [...] [facility] [address] [place] [address] Barry Reyes MD [address] [facility] [place] [address] documented as of this encounter Visit Diagnoses Diagnosis Iron deficiency anemia, not otherwise specified Chronic kidney disease, Stage II (mild) documented in this encounter Care Teams Babbitter Relationship Specialty Start Date End Date Sahra Son MD [address] [place] [address] PCP - General Internal Medicine 10/28/22 documented as of this encounter
--- OUTSIDE RECORDS SUMMARY | 2025-05-08 08:55 | XMS_ITS | Encounter Summary ---
Author Organization [facility] Address [address] [place] [address] Phone Care Team Providers Care Sap Technical Architect Name Role Phone Sahra Son MD Primary Care Provider + Encounter Details Date Type Department Care Team ([facility] Contact Info) Description 11/11/2023 Documentation Only [facility] Of [address] [place] [address] India Davalos [address] [place], [place] [...] [facility] [address] [place] [address] Barry Reyes MD [address] [place] [address] [place] [address] documented as of this encounter Visit Diagnoses Not on filedocumented in this encounter Care Teams Sap Technical Architect Relationship Specialty Start Date End Date Sahra Son MD [address] [address] PCP - General Internal Medicine 10/28/22 documented as of this encounter
--- OUTSIDE RECORDS SUMMARY | 2025-05-08 08:55 | XMS_ITS | Encounter Summary ---
Author Organization [facility] Address [address] [place] [address] Phone Care Team Providers Care Cash Register Servicer Name Role Phone Sahra Son MD Primary Care Provider + Encounter Details Date Type Department Care Team ([facility] Contact Info) Description 11/11/2023 Documentation Only [facility] Of [address] [place] [address] India Davalos [address] [place] [address] Social History Tobacco Use Types [...] Services Of [address] [place] [address] Barry Reyes MD [address] [place] [address] [place] [address] documented as of this encounter Visit Diagnoses Not on filedocumented in this encounter Care Teams Cash Register Servicer Relationship Specialty Start Date End Date Sahra Son MD [address] [address] PCP - General Internal Medicine 10/28/22 documented as of this encounter
--- OUTSIDE RECORDS SUMMARY | 2025-05-08 08:55 | XMS_ITS | Encounter Summary ---
Author Organization [facility] Address [address] [place] [address] Phone Care Team Providers Care Merchandiser Name Role Phone Sahra Son MD Primary Care Provider + Encounter Details Date Type Department Care Team ([facility] Contact Info) Description 11/30/2023 Documentation Only [facility] Of [address] [place] [address] India Davalos [address] [place] [address] Social History Tobacco Use Types [...] [facility] [address] [place] [address] Barry Reyes MD [address] [place] [address] [place] [address] documented as of this encounter Visit Diagnoses Not on filedocumented in this encounter Care Teams Merchandiser Relationship Specialty Start Date End Date Sahra Son MD [address] [address] PCP - General Internal Medicine 10/28/22 documented as of this encounter
--- OUTSIDE RECORDS SUMMARY | 2025-05-08 08:55 | XMS_ITS | Encounter Summary ---
Author Organization [facility] Address [address] [place] [address] Phone Care Team Providers Care Diver Pumper Name Role Phone Sahra Son MD Primary Care Provider + Encounter Details Date Type Department Care Team ([facility] Contact Info) Description 08/28/2024 Documentation Only [facility] Of [address] [place] [address] India Davalos [address] [place] [address] Social History Tobacco Use Types [...] [facility] Of [address] [place] [address] Barry Reyes MD [address] [place] [address] [place] [address] documented as of this encounter Visit Diagnoses Not on filedocumented in this encounter Care Teams Diver Pumper Relationship Specialty Start Date End Date Sahra Son MD [address] [address] PCP - General Internal Medicine 10/28/22 documented as of this encounter
--- OUTSIDE RECORDS SUMMARY | 2025-05-08 08:55 | XMS_ITS | Encounter Summary ---
Author Organization [facility] Address [address] [place] [address] Phone Care Team Providers Care Law Professor Name Role Phone Sahra Son MD Primary Care Provider + Encounter Details Date Type Department Care Team (Late st Contact Info) Description 06/09/2024 Orders Only [facility] [address] [place] [address] India Davalos [address] [place] [address] Anemia in chronic kidney disease; [...] Services Of [facility] [address] [place] [address] Barry Reyes MD [address] [facility] [place] [address] documented as of this encounter Visit Diagnoses Diagnosis Anemia in chronic kidney disease Other iron deficiency anemia Chronic kidney disease, stage 2 (mild) documented in this encounter Care Teams Law Professor Relationship Specialty Start Date End Date Sahra Son MD [facility] [place] [address] PCP - General Internal Medicine 10/28/22 documented as of this encounter
--- OUTSIDE RECORDS SUMMARY | 2025-05-08 08:55 | XMS_ITS | Encounter Summary ---
Author Organization [facility] Address [address] [place] [address] Phone Care Team Providers Care Lens Cleaner Name Role Phone Sahra Son MD Primary Care Provider + Encounter Details Date Type Department Care Team ([facility] Contact Info) Description 11/11/2023 Documentation Only [facility] [address] [place] [address] India Davalos [address] [place] [address] Social History Tobacco Use Types [...] [facility] [address] [place] [address] Barry Reyes MD [address] [place] [address] [place] [address] documented as of this encounter Visit Diagnoses Not on filedocumented in this encounter Care Teams Lens Cleaner Relationship Specialty Start Date End Date Sahra Son MD [address] [address] PCP - General Internal Medicine 10/28/22 documented as of this encounter
--- OUTSIDE RECORDS SUMMARY | 2025-05-08 08:56 | XMS_ITS | Encounter Summary ---
Author Organization [facility] Address [address] [place] [address] Phone Care Team Providers Care Envelope Stamping Machine Operator Name Role Phone Sahra Son MD Primary Care Provider + Encounter Details Date Type Department Care Team ([facility] Contact Info) Description 06/25/2021 Documentation Only [facility] [address] [place] [address] India Davalos [address] [place] [address] Social History Tobacco Use Types [...] [facility] [address] [place] [address] Barry Reyes MD [address] [place] [address] [place] [address] documented as of this encounter Visit Diagnoses Not on filedocumented in this encounter Care Teams Envelope Stamping Machine Operator Relationship Specialty Start Date End Date Sahra Son MD [address] [address] PCP - General Internal Medicine 10/28/22 documented as of this encounter
--- OUTSIDE RECORDS SUMMARY | 2025-05-08 08:56 | XMS_ITS | Clinical Summary ---
Author Organization [facility] [place], Address [address] [place] [address] [place] [address] Phone Care Team Providers Care Senior Sales Associate Name Role Phone Sahra Son MD Primary Care Provider + Allergies Active Allergy Reactions Criticality Noted Date Comments Codeine 12/26/2012 Ferumoxytol Shortness of breath,Itching,Other (see comments) High 02/27/2022 Bones hurt Iodinated Contrast Media 07/06/2022 Penicillins 12/26/2012 Other Shellfish Allergy 12/26/2012 Tramadol 07/06/2022 Trazodone 03/08/2018 Iron Sucrose 02/29/2024 Coughing fit infusion stopped at [facility] Medications Cymbalta [address] capsule TK 2 CS PO QAM 12/28/19 20 Active LORazepam (ATIVAN) 1 MG tablet TK 1 T PO BID 12/24/19 20 Active meclizine (ANTIVERT) 25 MG tablet TK 1 T PO TID PRN 12/24/19 20 Active montelukast (SINGULAIR) 10 MG tablet TK 1 T PO QD IN THE DARCY 11/19/19 20 Active Creon 52658-29171 units capsule TK ONE C PO TID [...] Encounters Date Type Department Care Team Description 04/26/2025 Documentation Only [facility] [address] [place] [address] [place], [place] 04/26/2025 Orders Only [facility] [address] [place] [address] [place], [place] Anemia in chronic kidney disease (Primary Dx); Other iron deficiency anemia; Chronic kidney disease, stage 2 (mild) 03/16/2025 Orders Only [facility] [address] [place] [address] [place], [place] Anemia in chronic kidney disease; Other iron deficiency anemia; Chronic kidney disease, stage 2 (mild) 02/16/2025 Telephone [facility] [address] [place] [address] Stephanie Azul, RN 02/16/2025 Orders Only [facility] [address] [place] [address] [place] Anemia in chronic kidney disease; Other iron deficiency anemia; Chronic kidney disease, stage 2 (mild) 02/09/2025 Telephone [facility] [address] [place] [address] Stephanie Azul, RN from Last 3 Months [...] [facility] [place], [address] [place] [address] Barry Reyes MD [address] [facility] [place] [address] Health Maintenance Due Date Last Done [...] TIBC, TSAT) (02/19/2025 9:33 AM EDT) Pathologist [facility] TIBC 263 250 - 450 ug/dL [facility] UIBC 219 118 - 369 ug/dL [facility] Iron 44 27 - 139 ug/dL [facility] Iron Saturation (TSat) 17 15 - 55 % [facility] Blood specimen (specimen) Venous blood / Unknown 02/19/2025 9:33 AM EDT 02/19/2025 us Barry Reyes MD LAB BLOOD ORDERABLES Final Re sult [facility] [address] [place] [address] * (ABNORMAL) CBC and Differential (02/19/2025 9:33 AM EDT) Pathologist [facility] WBC 8.3 3.4 - 10.8 x10E3/uL [facility] RBC 5.45(H) 3.77 - 5.28 x10E6/uL [facility] Hemoglobin 11.2 11.1 - 15.9 g/dL [facility] Hematocrit 38.3 34.0 - 46.6 % [facility] MCV 70(L) 79 - 97 fL [facility] MCH 20.6(L) 26.6 - 33.0 pg [facility] MCHC 29.2(L) 31.5 - 35.7 g/dL [facility] RDW 18.0(H) 11.7 - 15.4 % [facility] Platelets 217 150 - 450 x10E3/uL [facility] Neutrophils Relative 73 Not Estab. % [facility] Lymphocytes Relative 18 Not Estab. % [facility] Monocytes 5 Not Estab. % [facility] Eosinophils Relative 2 Not Estab. % [facility] Basophils Relative 1 Not Estab. % [facility] Neutrophils Absolute 6.2 1.4 - 7.0 x10E3/uL [facility] Lymphocytes Absolute 1.5 0.7 - 3.1 x10E3/uL [facility] Monocytes Absolute 0.4 0.1 - 0.9 x10E3/uL [facility] Eosinophils Absolute 0.1 0.0 - 0.4 x10E3/uL [facility] Basophils Absolute 0.1 0.0 - 0.2 x10E3/uL [facility] Immature Granulocytes 0 Not Estab. % [facility] Immature Grans (Absolute) 0.0 0.0 - 0.1 x10E3/uL [facility] Blood specimen (specimen) Venous blood / Unknown 02/19/2025 9:33 AM EDT 02/19/2025 Barry Reyes MD LAB BLOOD ORDERABLES Final Re sult [facility] [address] [place] [address] * (ABNORMAL) Ferritin (02/19/2025 9:33 AM EDT) Ferritin 156(H) 15 - 150 ng/mL [facility] Blood specimen (specimen) Venous blood / Unknown 02/19/2025 9:33 AM EDT 02/19/2025 us Barry Reyes MD LAB BLOOD ORDERABLES Final Re sult [facility] [address] [place] [address] * (ABNORMAL) Renal Function Panel (02/19/2025 9:33 AM EDT) Glucose 318(H) 70 - 99 mg/dL [facility] BUN 14 8 - 27 mg/dL [facility] Creatinine 1.01(H) 0.57 - 1.00 mg/dL [facility] eGFR CKD-EPI CR 2020 62 >59 mL/min/1.7 3 [facility] BUN/Creatinine Ratio 14 12 - 28 [facility] Sodium 137 134 - 144 mmol/L [facility] Potassium 4.8 3.5 - 5.2 mmol/L [facility] Chloride 99 96 - 106 mmol/L [facility] Bicarbonate (CO2) 22 20 - 29 mmol/L [facility] Calcium 9.3 8.7 - 10.3 mg/dL [facility] Albumin 4.2 3.9 - 4.9 g/dL [facility] Phosphorus 3.9 3.0 - 4.3 mg/dL [facility] Blood specimen (specimen) Venous blood / Unknown 02/19/2025 9:33 AM EDT 02/19/2025 Barry Reyes MD LAB BLOOD ORDERABLES Final Re sult [facility] [address] [place] [address] * (ABNORMAL) Hemoglobin A1c (06/08/2023 8:36 AM EST) Hemoglobin A1C 7.2(H) (4.0-5.6) % [facility] Comment: MONITORING: In known diabetic patients, hemoglobin A1c targets should be discussed with health care provider. DIAGNOSTIC USE: The [place] Diabetes Association (ADA) and the World Health [...] Supplement 1 Testing performed or reported by [facility], a Service of [facility], [address] [place] [address] Luis A Bailey MD, Urgent Care Nurse Practitioner [facility]# [id number] Blood specimen (specimen) Venous blood / Unknown 06/08/2023 8:36 AM EST 06/08/2023 8:38 AM EST us Arlene CARTER LAB BLOOD ORDERABLES Final Re sult [facility] from Last 3 Months or Most Recently Relevant to Health Maintenance Insurance [id number] One Care Dual SNP ([id number]) [place] [phone] Care Teams Senior Sales Associate Relationship Specialty Start Date End Date Sahra Son MD [address] [place] [address] PCP - General Internal Medicine 10/28/22
--- OUTSIDE RECORDS SUMMARY | 2025-05-08 08:56 | XMS_ITS | Encounter Summary ---
Author Organization [facility] Address [address] [place] [address] Phone Care Team Providers Care Director Of Occupational Health Name Role Phone Sahra Son MD Primary Care Provider + Encounter Details Date Type Department Care Team ([facility] Contact Info) Description 04/05/2024 Documentation Only [facility] [address] [place] [address] India Davalos [address] [place] [address] Social History Tobacco Use Types [...] [facility] [address] [place] [address] Barry Reyes MD [address] [place] [address] [place] [address] documented as of this encounter Visit Diagnoses Not on filedocumented in this encounter Care Teams Director Of Occupational Health Relationship Specialty Start Date End Date Sahra Son MD [address] [address] PCP - General Internal Medicine 10/28/22 documented as of this encounter
--- OUTSIDE RECORDS SUMMARY | 2025-05-08 08:56 | XMS_ITS | Encounter Summary ---
Author Organization [facility] Address [address] [place] [address] Phone Care Team Providers Care Respiratory Clinician Name Role Phone Sahra Son MD Primary Care Provider + Encounter Details Date Type Department Care Team ([facility] Contact Info) Description 07/16/2023 Documentation Only [facility] [address] [place] [address] India Davalos [address] [place] [address] Social History Tobacco Use Types [...] Services Of [address] [place] [address] Barry Reyes MD [address] [place] [address] [place] [address] documented as of this encounter Visit Diagnoses Not on filedocumented in this encounter Care Teams Respiratory Clinician Relationship Specialty Start Date End Date Sahra Son MD [address] [address] PCP - General Internal Medicine 10/28/22 documented as of this encounter
--- OUTSIDE RECORDS SUMMARY | 2025-05-08 08:56 | XMS_ITS | Encounter Summary ---
Author Organization [facility] Address [address] [place] [address] Phone Care Team Providers Care Equipment Maintenance Tech Name Role Phone Sahra Son MD Primary Care Provider + Encounter Details Date Type Department Care Team (Late Contact Info) Description 04/28/2024 Orders Only [facility] [address] [place] [address] India Davalos [address] [place] [address] Chronic kidney disease, stage 2 [...] Visit [facility] [address] [facility] [place] [address] Barry Reyes MD [address] [place] [address] [place] [address] documented as of this encounter [...] Glucose 153(H) 70 - 99 mg/dL [facility] BUN 17 8 - 27 mg/dL [facility] Creatinine 0.98 0.57 - 1.00 mg/dL [facility] eGFR CKD-EPI CR 2020 64 >59 mL/min/1.7 3 [facility] BUN/Creatinine Ratio 17 12 - 28 [facility] Sodium 142 134 - 144 mmol/L [facility] Potassium 5.0 3.5 - 5.2 mmol/L [facility] Chloride 106 96 - 106 mmol/L [facility] Bicarbonate (CO2) 23 20 - 29 mmol/L [facility] Calcium 8.9 8.7 - 10.3 mg/dL [facility] Albumin 3.9 3.9 - 4.9 g/dL [facility] Phosphorus 3.9 3.0 - 4.3 mg/dL [facility] Blood specimen (specimen) Venous blood / Unknown 05/05/2024 9:18 AM EST 05/05/2024 Barry Reyes MD LAB BLOOD ORDERABLES Final Re sult Performing Organization Address City/[facility]/ZIP Co de Phone Number [facility] [address] [place] [address] * (ABNORMAL) Ferritin (05/05/2024 9:18 AM EST) Ferritin 282(H) 15 - 150 ng/mL [facility] Blood specimen (specimen) Venous blood / Unknown 05/05/2024 9:18 AM EST 05/05/2024 Barry Reyes MD LAB BLOOD ORDERABLES Final Re sult Performing Organization Address [facility] de Phone Number [facility] [address] [place] [address] * Iron Panel (Fe, TIBC, TSAT) (05/05/2024 9:18 AM EST) TIBC 277 250 - 450 ug/dL [facility] UIBC 210 118 - 369 ug/dL [facility] Iron 67 27 - 139 ug/dL [facility] Iron Saturation (TSat) 24 15 - 55 % [facility] Blood specimen (specimen) Venous blood / Unknown 05/05/2024 9:18 AM EST 05/05/2024 Barry Reyes MD LAB BLOOD ORDERABLES Final Re sult Performing Organization Address City/[facility]/ZIP Co de Phone Number [facility] [address] [place] [address] * (ABNORMAL) CBC and Differential (05/05/2024 9:18 AM EST) WBC 5.6 3.4 - 10.8 x10E3/uL [facility] RBC 5.33(H) 3.77 - 5.28 x10E6/uL [facility] Hemoglobin 10.2(L) 11.1 - 15.9 g/dL [facility] Hematocrit 35.0 34.0 - 46.6 % [facility] MCV 66(L) 79 - 97 fL [facility] MCH 19.1(L) 26.6 - 33.0 pg [facility] MCHC 29.1(L) 31.5 - 35.7 g/dL [facility] RDW 20.1(H) 11.7 - 15.4 % [facility] Platelets 163 150 - 450 x10E3/uL [facility] Neutrophils Relative 64 Not Estab. % [facility] Lymphocytes Relative 26 Not Estab. % [facility] Monocytes 6 Not Estab. % [facility] Eosinophils Relative 3 Not Estab. % [facility] Basophils Relative 1 Not Estab. % [facility] Neutrophils Absolute 3.6 1.4 - 7.0 x10E3/uL [facility] Lymphocytes Absolute 1.5 0.7 - 3.1 x10E3/uL [facility] Monocytes Absolute 0.3 0.1 - 0.9 x10E3/uL [facility] Eosinophils Absolute 0.2 0.0 - 0.4 x10E3/uL [facility] Basophils Absolute 0.0 0.0 - 0.2 x10E3/uL [facility] Immature Granulocytes 0 Not Estab. % [facility] Immature Grans (Absolute) 0.0 0.0 - 0.1 x10E3/uL [facility] Blood specimen (specimen) Venous blood / Unknown 05/05/2024 9:18 AM EST 05/05/2024 us Barry Reyes MD LAB BLOOD ORDERABLES Final Re sult [facility] [address] [place] [address] documented in this encounter Visit Diagnoses Diagnosis Chronic kidney disease, stage 2 (mild) Anemia in chronic kidney disease Iron deficiency anemia, not otherwise specified documented in this encounter Care Teams Equipment Maintenance Tech Relationship Specialty Start Date End Date Sahra Son MD [address] [place] [address] PCP - General Internal Medicine 10/28/22 documented as of this encounter
--- OUTSIDE RECORDS SUMMARY | 2025-05-08 08:56 | XMS_ITS | Encounter Summary ---
Author Organization [facility] Address [address] [place] [address] Phone Care Team Providers Care Commercial Sheet Metal Foreman Name Role Phone Sahra Son MD Primary Care Provider + Encounter Details Date Type Department Care Team ([facility] Contact Info) Description 10/30/2022 Documentation Only [facility] [address] [place] [address] India Davalos [address] [place], [...] Services Of [address] [place] [address] Barry Reyes MD [address] [place] [address] [place] [address] documented as of this encounter Visit Diagnoses Not on filedocumented in this encounter Care Teams Commercial Sheet Metal Foreman Relationship Specialty Start Date End Date Sahra Son MD [address] [address] PCP - General Internal Medicine 10/28/22 documented as of this encounter
--- OUTSIDE RECORDS SUMMARY | 2025-05-08 08:56 | XMS_ITS | Encounter Summary ---
Author Organization [facility] Address [address] [place] [address] Phone Care Team Providers Care Can Worker Name Role Phone Sahra Son MD Primary Care Provider + Encounter Details Date Type Department Care Team ([facility] Contact Info) Description 04/05/2024 Documentation Only [facility] [address] [place] [address] India Davalos [address] [place] [address] Social History Tobacco Use Types [...] [facility] [address] [place] [address] Barry Reyes MD [address] [place] [address] [place] [address] documented as of this encounter Visit Diagnoses Not on filedocumented in this encounter Care Teams Can Worker Relationship Specialty Start Date End Date Sahra Son MD [address] [address] PCP - General Internal Medicine 10/28/22 documented as of this encounter
--- OUTSIDE RECORDS SUMMARY | 2025-05-08 08:56 | XMS_ITS | Encounter Summary ---
Author Organization [facility] Address [address] [place] [address] Phone Care Team Providers Care Fuel Cell Technician Name Role Phone Sahra Son MD Primary Care Provider + Encounter Details Date Type Department Care Team (Late Contact Info) Description 03/31/2024 Orders Only [facility] [address] [place] [address] India Davalos [address] [place] [address] Chronic kidney disease, stage 2 [...] Visit [facility] [address] [place] [address] Barry Reyes MD [address] [place] [address] [place] [address] documented as of this encounter Visit Diagnoses Diagnosis Chronic kidney disease, stage 2 (mild) Anemia in chronic kidney disease Iron deficiency anemia, not otherwise specified documented in this encounter Care Teams Fuel Cell Technician Relationship Specialty Start Date End Date Sahra Son MD [address] [place] [address] PCP - General Internal Medicine 10/28/22 documented as of this encounter
--- OUTSIDE RECORDS SUMMARY | 2025-05-08 08:56 | XMS_ITS | Encounter Summary ---
Author Organization [facility] Address [address] [place] [address] Phone Care Team Providers Care Curer Foam Rubber Name Role Phone Sahra Son MD Primary Care Provider + Encounter Details Date Type Department Care Team ([facility] Contact Info) Description 12/18/2024 Documentation Only [facility] [address] [place] [address] India Davalos [address] [place] [address] Social History Tobacco Use Types [...] [facility] [address] [place] [address] Barry Reyes MD [address] [place] [address] [place] [address] documented as of this encounter Visit Diagnoses Not on filedocumented in this encounter Care Teams Curer Foam Rubber Relationship Specialty Start Date End Date Sahra Son MD [address] [address] PCP - General Internal Medicine 10/28/22 documented as of this encounter
--- OUTSIDE RECORDS SUMMARY | 2025-05-08 08:56 | XMS_ITS | Encounter Summary ---
Author Organization [facility] Address [address] [place] [address] Phone Care Team Providers Care Traveling Representative Name Role Phone Sahra Son MD Primary Care Provider + Encounter Details Date Type Department Care Team (Late Contact Info) Description 09/01/2024 Orders Only [facility] [address] [address] India Davalos [address] [place] [address] Anemia in chronic kidney disease; [...] [facility] [address] [address] Barry Reyes MD [address] [place] [address] [place] [address] [...] Glucose 233(H) 70 - 99 mg/dL [facility] BUN 15 8 - 27 mg/dL [facility] Creatinine 1.01(H) 0.57 - 1.00 mg/dL [facility] eGFR CKD-EPI CR 2020 62 >59 mL/min/1.7 3 [facility] BUN/Creatinine Ratio 15 12 - 28 [facility] Sodium 138 134 - 144 mmol/L [facility] Potassium 4.9 3.5 - 5.2 mmol/L [facility] Chloride 101 96 - 106 mmol/L [facility] Bicarbonate (CO2) 19(L) 20 - 29 mmol/L [facility] Calcium 9.1 8.7 - 10.3 mg/dL [facility] Albumin 4.2 3.9 - 4.9 g/dL [facility] Phosphorus 3.8 3.0 - 4.3 mg/dL [facility] Blood specimen (specimen) Venous blood / Unknown 09/06/2024 8:15 AM EDT 09/06/2024 Barry Reyes MD LAB BLOOD ORDERABLES Final Re sult Performing Organization Address City/[facility]/ZIP Co de Phone Number [facility] [address] [place] [address] * Ferritin (09/06/2024 8:15 AM EDT) Ferritin 37 15 - 150 ng/mL [facility] Blood specimen (specimen) Venous blood / Unknown 09/06/2024 8:15 AM EDT 09/06/2024 Barry Reyes MD LAB BLOOD ORDERABLES Final Re sult Performing Organization Address [facility] de Phone Number [facility] [address] [place] [address] * (ABNORMAL) Iron Panel (Fe, TIBC, TSAT) (09/06/2024 8:15 AM EDT) TIBC 323 250 - 450 ug/dL [facility] UIBC 286 118 - 369 ug/dL [facility] Iron 37 27 - 139 ug/dL [facility] Iron Saturation (TSat) 11(L) 15 - 55 % [facility] Blood specimen (specimen) Venous blood / Unknown 09/06/2024 8:15 AM EDT 09/06/2024 Barry Reyes MD LAB BLOOD ORDERABLES Final Re sult Performing Organization Address City/[facility]/ZIP Co de Phone Number [facility] [address] [place] [address] * (ABNORMAL) CBC and Differential (09/06/2024 8:15 AM EDT) WBC 6.3 3.4 - 10.8 x10E3/uL [facility] RBC 5.35(H) 3.77 - 5.28 x10E6/uL [facility] Hemoglobin 10.6(L) 11.1 - 15.9 g/dL [facility] Hematocrit 35.8 34.0 - 46.6 % [facility] MCV 67(L) 79 - 97 fL [facility] MCH 19.8(L) 26.6 - 33.0 pg [facility] MCHC 29.6(L) 31.5 - 35.7 g/dL [facility] RDW 18.4(H) 11.7 - 15.4 % [facility] Platelets 190 150 - 450 x10E3/uL [facility] Neutrophils Relative 67 Not Estab. % [facility] Lymphocytes Relative 22 Not Estab. % [facility] Monocytes 6 Not Estab. % [facility] Eosinophils Relative 3 Not Estab. % [facility] Basophils Relative 1 Not Estab. % [facility] Neutrophils Absolute 4.3 1.4 - 7.0 x10E3/uL [facility] Lymphocytes Absolute 1.4 0.7 - 3.1 x10E3/uL [facility] Monocytes Absolute 0.4 0.1 - 0.9 x10E3/uL [facility] Eosinophils Absolute 0.2 0.0 - 0.4 x10E3/uL [facility] Basophils Absolute 0.1 0.0 - 0.2 x10E3/uL [facility] Immature Granulocytes 1 Not Estab. % [facility] Immature Grans (Absolute) 0.1 0.0 - 0.1 x10E3/uL [facility] Blood specimen (specimen) Venous blood / Unknown 09/06/2024 8:15 AM EDT 09/06/2024 us Barry Reyes MD LAB BLOOD ORDERABLES Final Re sult [facility] [address] [place] [address] documented in this encounter Visit Diagnoses Diagnosis Anemia in chronic kidney disease Other iron deficiency anemia Chronic kidney disease, stage 2 (mild) documented in this encounter Care Teams Traveling Representative Relationship Specialty Start Date End Date Sahra Son MD [address] [place] [address] PCP - General Internal Medicine 10/28/22 documented as of this encounter
--- OUTSIDE RECORDS SUMMARY | 2025-05-08 08:56 | XMS_ITS | Encounter Summary ---
Author Organization [facility] Address [address] [place] [address] Phone Care Team Providers Care Bridge Builder Name Role Phone Sahra Son MD Primary Care Provider + Encounter Details Date Type Department Care Team (Late Contact Info) Description 09/15/2024 Orders Only [facility] [address] [place] [address] India Davalos [address] [place] [address] Chronic kidney disease, stage 2 [...] And [facility] [address] [place] [address] Barry Reyes MD [address] [place] [address] [place] [address] documented as of this encounter Visit Diagnoses Diagnosis Chronic kidney disease, stage 2 (mild) Anemia in chronic kidney disease Iron deficiency anemia, not otherwise specified documented in this encounter Care Teams Bridge Builder Relationship Specialty Start Date End Date Sahra Son MD [address] [place] [address] PCP - General Internal Medicine 10/28/22 documented as of this encounter
--- OUTSIDE RECORDS SUMMARY | 2025-05-08 08:56 | XMS_ITS | Encounter Summary ---
Author Organization [facility] Address [address] [place] [address] Phone Care Team Providers Care Senior Tech Manufacturing Engineering Name Role Phone Sahra Son MD Primary Care Provider + Encounter Details Date Type Department Care Team ([facility] Contact Info) Description 08/09/2023 Documentation Only [facility] [address] [place] [address] India Davalos [address] [place] [address] Social History Tobacco Use Types [...] [facility] [address] [place] [address] Barry Reyes MD [address] [place] [address] [place] [address] documented as of this encounter Visit Diagnoses Not on filedocumented in this encounter Care Teams Senior Tech Manufacturing Engineering Relationship Specialty Start Date End Date Sahra Son MD [address] [address] PCP - General Internal Medicine 10/28/22 documented as of this encounter
--- OUTSIDE RECORDS SUMMARY | 2025-05-08 08:56 | XMS_ITS | Encounter Summary ---
Author Organization [facility] Address [address] [place] [address] Phone Care Team Providers Care Engineering Technical Specialist Name Role Phone Sahra Son MD Primary Care Provider + Encounter Details Date Type Department Care Team ([facility] Contact Info) Description 01/29/2023 Documentation Only [facility] [address] [place] [address] India Davalos [address] [place] [address] Social History Tobacco Use [...] [facility] [address] [place] [address] Barry Reyes MD [address] [place] [address] [place] [address] documented as of this encounter Visit Diagnoses Not on filedocumented in this encounter Care Teams Engineering Technical Specialist Relationship Specialty Start Date End Date Sahra Son MD [address] [address] PCP - General Internal Medicine 10/28/22 documented as of this encounter
--- OUTSIDE RECORDS SUMMARY | 2025-05-08 08:56 | XMS_ITS | Encounter Summary ---
Author Organization [facility] Address [address] [place] [address] Phone Care Team Providers Care Squirt Machine Operator Name Role Phone Sahra Son MD Primary Care Provider + Encounter Details Date Type Department Care Team ([facility] Contact Info) Description 08/05/2023 Documentation Only [facility] [address] [place] [address] India Davalos [address] [place] [address] Social History Tobacco Use [...] Services Of [address] [place] [address] Barry Reyes MD [address] [place] [address] [place] [address] documented as of this encounter Visit Diagnoses Not on filedocumented in this encounter Care Teams Squirt Machine Operator Relationship Specialty Start Date End Date Sahra Son MD [address] [address] PCP - General Internal Medicine 10/28/22 documented as of this encounter
--- OUTSIDE RECORDS SUMMARY | 2025-05-08 08:56 | XMS_ITS | Encounter Summary ---
Author Organization [facility] Address [address] [place] [address] Phone Care Team Providers Care Apartment Leasing Agent Name Role Phone Sahra Son MD Primary Care Provider + Encounter Details Date Type Department Care Team ([facility] Contact Info) Description 07/16/2023 Documentation Only [facility] [address] [place] [address] India Davalos [address] [place] [address] Social History Tobacco Use [...] [facility] [address] [place] [address] Barry Reyes MD [address] [place] [address] [place] [address] documented as of this encounter Visit Diagnoses Not on filedocumented in this encounter Care Teams Apartment Leasing Agent Relationship Specialty Start Date End Date Sahra Son MD [address] [address] PCP - General Internal Medicine 10/28/22 documented as of this encounter
--- OUTSIDE RECORDS SUMMARY | 2025-05-08 08:56 | XMS_ITS | Encounter Summary ---
Author Organization [facility] Address [address] [place] [address] Phone Care Team Providers Care Tool Designer Apprentice Name Role Phone Sahra Son MD Primary Care Provider + Encounter Details Date Type Department Care Team (Late Contact Info) Description 02/16/2025 Orders Only [facility] [address] [place] [address] India Davalos [address] [place] [address] Anemia in chronic kidney disease; [...] Visit [facility] [address] [place] [address] Barry Reyes MD [address] [place] [address] [place] [address] documented as of this encounter [...] Glucose 318(H) 70 - 99 mg/dL [facility] BUN 14 8 - 27 mg/dL [facility] Creatinine 1.01(H) 0.57 - 1.00 mg/dL [facility] eGFR CKD-EPI CR 2020 62 >59 mL/min/1.7 3 [facility] BUN/Creatinine Ratio 14 12 - 28 [facility] Sodium 137 134 - 144 mmol/L [facility] Potassium 4.8 3.5 - 5.2 mmol/L [facility] Chloride 99 96 - 106 mmol/L [facility] Bicarbonate (CO2) 22 20 - 29 mmol/L [facility] Calcium 9.3 8.7 - 10.3 mg/dL [facility] Albumin 4.2 3.9 - 4.9 g/dL [facility] Phosphorus 3.9 3.0 - 4.3 mg/dL [facility] Blood specimen (specimen) Venous blood / Unknown 02/19/2025 9:33 AM EDT 02/19/2025 us Barry Reyes MD LAB BLOOD ORDERABLES Final Re sult Performing Organization Address City/[facility]/ZIP Co de Phone Number [facility] [address] [place] [address] * (ABNORMAL) Ferritin (02/19/2025 9:33 AM EDT) Ferritin 156(H) 15 - 150 ng/mL [facility] Blood specimen (specimen) Venous blood / Unknown 02/19/2025 9:33 AM EDT 02/19/2025 Barry Reyes MD LAB BLOOD ORDERABLES Final Re sult Performing Organization Address [facility] de Phone Number [facility] [address] [place] [address] * Iron Panel (Fe, TIBC, TSAT) (02/19/2025 9:33 AM EDT) TIBC 263 250 - 450 ug/dL [facility] UIBC 219 118 - 369 ug/dL [facility] Iron 44 27 - 139 ug/dL [facility] Iron Saturation (TSat) 17 15 - 55 % [facility] Blood specimen (specimen) Venous blood / Unknown 02/19/2025 9:33 AM EDT 02/19/2025 us Barry Reyes MD LAB BLOOD ORDERABLES Final Re sult Performing Organization Address City/[facility]/ZIP Co de Phone Number [facility] [address] [place] [address] * (ABNORMAL) CBC and Differential (02/19/2025 9:33 AM EDT) [facility] WBC 8.3 3.4 - 10.8 x10E3/uL [facility] RBC 5.45(H) 3.77 - 5.28 x10E6/uL [facility] Hemoglobin 11.2 11.1 - 15.9 g/dL [facility] Hematocrit 38.3 34.0 - 46.6 % [facility] MCV 70(L) 79 - 97 fL [facility] MCH 20.6(L) 26.6 - 33.0 pg [facility] MCHC 29.2(L) 31.5 - 35.7 g/dL [facility] RDW 18.0(H) 11.7 - 15.4 % [facility] Platelets 217 150 - 450 x10E3/uL [facility] Neutrophils Relative 73 Not Estab. % [facility] Lymphocytes Relative 18 Not Estab. % [facility] Monocytes 5 Not Estab. % [facility] Eosinophils Relative 2 Not Estab. % [facility] Basophils Relative 1 Not Estab. % [facility] Neutrophils Absolute 6.2 1.4 - 7.0 x10E3/uL [facility] Lymphocytes Absolute 1.5 0.7 - 3.1 x10E3/uL [facility] Monocytes Absolute 0.4 0.1 - 0.9 x10E3/uL [facility] Eosinophils Absolute 0.1 0.0 - 0.4 x10E3/uL [facility] Basophils Absolute 0.1 0.0 - 0.2 x10E3/uL [facility] Immature Granulocytes 0 Not Estab. % [facility] Immature Grans (Absolute) 0.0 0.0 - 0.1 x10E3/uL [facility] Blood specimen (specimen) Venous blood / Unknown 02/19/2025 9:33 AM EDT 02/19/2025 us Barry Reyes MD LAB BLOOD ORDERABLES Final Re sult [facility] [address] [place] [address] documented in this encounter Visit Diagnoses Diagnosis Anemia in chronic kidney disease Other iron deficiency anemia Chronic kidney disease, stage 2 (mild) documented in this encounter Care Teams Tool Designer Apprentice Relationship Specialty [place] [address] [place] [address] PCP - General Internal Medicine 10/28/22 documented as of this encounter
--- OUTSIDE RECORDS SUMMARY | 2025-05-08 08:56 | XMS_ITS | Encounter Summary ---
Author Organization [facility] Address [address] [place] [address] Phone Care Team Providers Care Washing Machine Operator Name Role Phone Sahra Son MD Primary Care Provider + Encounter Details Date Type Department Care Team ([facility] Contact Info) Description 02/01/2023 Documentation Only [facility] [address] [place] [address] India Davalos [address] [place] [address] Social History Tobacco Use Types [...] [facility] [address] [place] [address] Barry Reyes MD [address] [place] [address] [place] [address] documented as of this encounter Visit Diagnoses Not on filedocumented in this encounter Care Teams Washing Machine Operator Relationship Specialty Start Date End Date Sahra Son MD [address] [address] PCP - General Internal Medicine 10/28/22 documented as of this encounter
--- OUTSIDE RECORDS SUMMARY | 2025-05-08 08:56 | XMS_ITS | Encounter Summary ---
Author Organization [facility] Address [address] [place] [address] Phone Care Team Providers Care Insurance Agency Owner Name Role Phone Sahra Son MD Primary Care Provider + Encounter Details Date Type Department Care Team ([facility] Contact Info) Description 12/24/2022 Documentation Only [facility] [address] [place] [address] Carol Whelan [address] [place] [address] Social History Tobacco Use [...] [facility] [address] [place] [address] Barry Reyes MD [address] [place] [address] [place] [address] documented as of this encounter Visit Diagnoses Not on filedocumented in this encounter Care Teams Insurance Agency Owner Relationship Specialty Start Date End Date Sahra Son MD [address] [address] PCP - General Internal Medicine 10/28/22 documented as of this encounter
--- OUTSIDE RECORDS SUMMARY | 2025-05-08 08:56 | XMS_ITS | Encounter Summary ---
Author Organization [facility] Address [address] [place] [address] Phone Care Team Providers Care Epitaxial Reactor Operator Name Role Phone Sahra Son MD Primary Care Provider + Encounter Details Date Type Department Care Team ([facility] Contact Info) Description 10/26/2022 Documentation Only [facility] Of [address] [place] [address] India Davalos [address] [place] [address] Social History Tobacco Use Types [...] [facility] [address] [place] [address] Barry Reyes MD [address] [place] [address] [place] [address] documented as of this encounter Visit Diagnoses Not on filedocumented in this encounter Care Teams Epitaxial Reactor Operator Relationship Specialty Start Date End Date Sahra Son MD [address] [address] PCP - General Internal Medicine 10/28/22 documented as of this encounter
--- OUTSIDE RECORDS SUMMARY | 2025-05-08 08:56 | XMS_ITS | Encounter Summary ---
Author Organization [facility] Address [address] [place] [address] Phone Care Team Providers Care Records Management Clerk Name Role Phone Sahra Son MD Primary Care Provider + Encounter Details Date Type Department Care Team (Late Contact Info) Description 05/26/2024 Orders Only [facility] [address] [place] [address] India Davalos [address] [place] [address] Chronic kidney disease, stage 2 [...] Transplant Services [facility] [address] [place] [address] Barry Reyes MD [address] [place] [address] [place] [address] documented [...] Glucose 168(H) 70 - 99 mg/dL [facility] BUN 17 8 - 27 mg/dL [facility] Creatinine 1.09(H) 0.57 - 1.00 mg/dL [facility] eGFR CKD-EPI CR 2020 57(L) >59 mL/min/1.7 3 [facility] BUN/Creatinine Ratio 16 12 - 28 [facility] Sodium 137 134 - 144 mmol/L [facility] Potassium 4.8 3.5 - 5.2 mmol/L [facility] Chloride 99 96 - 106 mmol/L [facility] Bicarbonate (CO2) 23 20 - 29 mmol/L [facility] Calcium 9.0 8.7 - 10.3 mg/dL [facility] Albumin 4.2 3.9 - 4.9 g/dL [facility] Phosphorus 4.4(H) 3.0 - 4.3 mg/dL [facility] Blood specimen (specimen) Venous blood / Unknown 06/07/2024 11:53 AM EST 06/07/2024 Barry Reyes MD LAB BLOOD ORDERABLES Final Re sult Performing Organization Address City/[facility]/ZIP Co de Phone Number [facility] [address] [place] [address] * Ferritin (06/07/2024 11:53 AM EST) Ferritin 102 15 - 150 ng/mL [facility] Blood specimen (specimen) Venous blood / Unknown 06/07/2024 11:53 AM EST 06/07/2024 Barry Reyes MD LAB BLOOD ORDERABLES Final Re sult Performing Organization Address [facility] de Phone Number [facility] [address] [place] [address] * Iron Panel (Fe, TIBC, TSAT) (06/07/2024 11:53 AM EST) TIBC 262 250 - 450 ug/dL [facility] UIBC 205 118 - 369 ug/dL [facility] Iron 57 27 - 139 ug/dL [facility] Iron Saturation (TSat) 22 15 - 55 % [facility] Blood specimen (specimen) Venous blood / Unknown 06/07/2024 11:53 AM EST 06/07/2024 Barry Reyes MD LAB BLOOD ORDERABLES Final Re sult Performing Organization Address City/[facility]/ZIP Co de Phone Number [facility] [address] [place] [address] * (ABNORMAL) CBC and Differential (06/07/2024 11:53 AM EST) [facility] WBC 5.5 3.4 - 10.8 x10E3/uL [facility] RBC 5.76(H) 3.77 - 5.28 x10E6/uL [facility] Hemoglobin 11.1 11.1 - 15.9 g/dL [facility] Hematocrit 38.4 34.0 - 46.6 % [facility] MCV 67(L) 79 - 97 fL [facility] MCH 19.3(L) 26.6 - 33.0 pg [facility] MCHC 28.9(L) 31.5 - 35.7 g/dL [facility] RDW 18.8(H) 11.7 - 15.4 % [facility] Platelets 162 150 - 450 x10E3/uL [facility] Neutrophils Relative 59 Not Estab. % [facility] Lymphocytes Relative 31 Not Estab. % [facility] Monocytes 6 Not Estab. % [facility] Eosinophils Relative 2 Not Estab. % [facility] Basophils Relative 1 Not Estab. % [facility] Neutrophils Absolute 3.3 1.4 - 7.0 x10E3/uL [facility] Lymphocytes Absolute 1.7 0.7 - 3.1 x10E3/uL [facility] Monocytes [...] Final Re sult [facility] [address] [place] [address] documented in this encounter Visit Diagnoses Diagnosis Chronic kidney disease, stage 2 (mild) Anemia in chronic kidney disease Iron deficiency anemia, not otherwise specified documented in this encounter Care Teams Records Management Clerk Relationship Specialty Start Date End Date Sahra Son MD [address] [place] [address] PCP - General Internal Medicine 10/28/22 documented as of this encounter
--- OUTSIDE RECORDS SUMMARY | 2025-05-08 08:56 | XMS_ITS | Encounter Summary ---
Author Organization [facility] Address [address] [place] [address] Phone Care Team Providers Care Rubbing Bed Operator Name Role Phone Sahra Son MD Primary Care Provider + Encounter Details Date Type Department Care Team (Late Contact Info) Description 08/04/2024 Orders Only [facility] [address] [place] [address] India Davalos [address] [place] [address] Anemia in chronic kidney disease; [...] [facility] [address] [place] [address] Barry Reyes MD [address] [place] [address] [place] [address] documented as of this encounter [...] Glucose 168(H) 70 - 99 mg/dL [facility] BUN 15 8 - 27 mg/dL [facility] Creatinine 0.93 0.57 - 1.00 mg/dL [facility] eGFR CKD-EPI CR 2020 69 >59 mL/min/1.7 3 [facility] BUN/Creatinine Ratio 16 12 - 28 [facility] Sodium 139 134 - 144 mmol/L [facility] Chloride 103 96 - 106 mmol/L [facility] Bicarbonate (CO2) 24 20 - 29 mmol/L [facility] Calcium 8.8 8.7 - 10.3 mg/dL [facility] Phosphorus 3.8 3.0 - 4.3 mg/dL [facility] Albumin 4.1 3.9 - 4.9 g/dL [facility] Potassium 4.8 3.5 - 5.2 mmol/L [facility] Blood specimen (specimen) Venous blood / Unknown 08/07/2024 8:15 AM EDT 08/07/2024 Barry Reyes MD LAB BLOOD ORDERABLES Final Re sult Performing Organization Address City/[facility]/ZIP Co de Phone Number [facility] [address] [place] [address] * Ferritin (08/07/2024 8:15 AM EDT) Ferritin 55 15 - 150 ng/mL [facility] Blood specimen (specimen) Venous blood / Unknown 08/07/2024 8:15 AM EDT 08/07/2024 Barry Reyes MD LAB BLOOD ORDERABLES Final Re sult Performing Organization Address [facility] de Phone Number [facility] [address] [place] [address] * (ABNORMAL) Iron Panel (Fe, TIBC, TSAT) (08/07/2024 8:15 AM EDT) Pathologist [facility] TIBC 290 250 - 450 ug/dL [facility] UIBC 251 118 - 369 ug/dL [facility] Iron 39 27 - 139 ug/dL [facility] Iron Saturation (TSat) 13(L) 15 - 55 % [facility] Blood specimen (specimen) Venous blood / Unknown 08/07/2024 8:15 AM EDT 08/07/2024 aBrry Reyes MD LAB BLOOD ORDERABLES Final Re sult Performing Organization Address City/[facility]/ZIP Co de Phone Number [facility] [address] [place] [address] * (ABNORMAL) CBC and Differential (08/07/2024 8:15 AM EDT) [facility] WBC 5.6 3.4 - 10.8 x10E3/uL [facility] RBC 5.41(H) 3.77 - 5.28 x10E6/uL [facility] Hemoglobin 10.7(L) 11.1 - 15.9 g/dL [facility] Hematocrit 36.1 34.0 - 46.6 % [facility] MCV 67(L) 79 - 97 fL [facility] MCH 19.8(L) 26.6 - 33.0 pg [facility] MCHC 29.6(L) 31.5 - 35.7 g/dL [facility] RDW 18.9(H) 11.7 - 15.4 % [facility] Platelets 171 150 - 450 x10E3/uL [facility] Neutrophils Relative 65 Not Estab. % [facility] Lymphocytes Relative 25 Not Estab. % [facility] Monocytes 6 Not Estab. % [facility] Eosinophils Relative 3 Not Estab. % [facility] Basophils Relative 1 Not Estab. % [facility] Neutrophils Absolute 3.6 1.4 - 7.0 x10E3/uL [facility] Lymphocytes Absolute 1.4 0.7 - 3.1 x10E3/uL [facility] Monocytes Absolute 0.4 0.1 - 0.9 x10E3/uL [facility] Eosinophils Absolute 0.2 0.0 - 0.4 x10E3/uL [facility] Basophils Absolute 0.0 0.0 - 0.2 x10E3/uL [facility] Immature Granulocytes 0 Not Estab. % [facility] Immature Grans (Absolute) 0.0 0.0 - 0.1 x10E3/uL [facility] Blood specimen (specimen) Venous blood / Unknown 08/07/2024 8:15 AM EDT 08/07/2024 us Barry Reyes MD LAB BLOOD ORDERABLES Final Re sult [facility] [address] [place] [address] documented in this encounter Visit Diagnoses Diagnosis Anemia in chronic kidney disease Other iron deficiency anemia Chronic kidney disease, stage 2 (mild) documented in this encounter Care Teams Rubbing Bed Operator Relationship Specialty [place] [address] [place] [address] PCP - General Internal Medicine 10/28/22 documented as of this encounter
--- OUTSIDE RECORDS SUMMARY | 2025-05-08 08:56 | XMS_ITS | Encounter Summary ---
Author Organization [facility] Address [address] [place] [address] Phone Care Team Providers Care Assistant Infant Teacher Name Role Phone Sahra Son MD Primary Care Provider + Encounter Details Date Type Department Care Team ([facility] Contact Info) Description 10/07/2021 Documentation Only [facility] [address] [place] [address] India Davalos [address] [place] [address] Social History Tobacco Use [...] [facility] [address] [place] [address] Barry Reyes MD [address] [place] [address] [place] [address] documented as of this encounter Visit Diagnoses Not on filedocumented in this encounter Care Teams Assistant Infant Teacher Relationship Specialty Start Date End Date Sahra Son MD [address] [address] PCP - General Internal Medicine 10/28/22 documented as of this encounter
--- OUTSIDE RECORDS SUMMARY | 2025-05-08 08:56 | XMS_ITS | Encounter Summary ---
Author Organization [facility] Address [address] [place] [address] Phone Care Team Providers Care Handbag Operator Name Role Phone Sahra Son MD Primary Care Provider + Encounter Details Date Type Department Care Team ([facility] Contact Info) Description 07/03/2021 Documentation Only [facility] [address] [place] [address] Juan Jose Li MD [address] [place] [address] [place] [address] Social History Tobacco Use Types [...] [facility] [address] [place] [address] Barry Reyes MD [address] [facility] [place] [address] documented as of this encounter Visit Diagnoses Not on filedocumented in this encounter Care Teams Handbag Operator Relationship Specialty Start Date End Date Sahra Son MD [address] [address] PCP - General Internal Medicine 10/28/22 documented as of this encounter
--- OUTSIDE RECORDS SUMMARY | 2025-05-08 08:56 | XMS_ITS | Encounter Summary ---
Author Organization [facility] Address [address] [place] [address] Phone Care Team Providers Care Auto Damage Estimator Name Role Phone Sahra Son MD Primary Care Provider + Encounter Details Date Type Department Care Team ([facility] Contact Info) Description 01/29/2023 Documentation Only [facility] [address] [place] [address] India Davalos [address] [place], [place] [...] [facility] [address] [place] [address] Barry Reyes MD [address] [place] [address] [place] [address] documented as of this encounter Visit Diagnoses Not on filedocumented in this encounter Care Teams Auto Damage Estimator Relationship Specialty Start Date End Date Sahra Son MD [address] [address] PCP - General Internal Medicine 10/28/22 documented as of this encounter
--- OUTSIDE RECORDS SUMMARY | 2025-05-08 08:56 | XMS_ITS | Clinical Summary ---
Author Organization [facility] Address [address] [place] [address] Phone Care Team Providers Care Pastry Baker Name Role Phone Sahra Son MD Primary Care Provider + Surgical History Surgery Date Site/Laterality Comments OTHER SURGICAL HISTORY 1975 PROCEDURE: [place] ECTOPIC ABDOMINAL/VAGINAL APPR PARTIAL HYSTERECTOMY PROCEDURE: [place] SUPRACERVICAL ABDL HYSTER W/WO RMVL TUBE OVARY CHOLECYSTECTOMY 1982 PROCEDURE: HISTORICAL CHOLECYSTECTOMY CARPAL TUNNEL RELEASE 11/21/2014 Left PROCEDURE: HISTORICAL CARPAL TUNNEL REL BOWEL RESECTION 03/2004 PROCEDURE: HISTORICAL BOWEL RESECTION; COMMENT: bowel obstruction Medical History Medical History Date Comments Diverticulosis DX:Diverticulosi s CHF (congestive heart failur e) ([facility] V24, [facility] V28) DX:CHF (congestive heart fa ilure) ([facility]) COPD (chronic obstructive pu lmonary disease) ([facility] V24, [facility] V28) DX:COPD (chronic o bstructive pulmonary disease) ([facility]) Osteoporosis DX:Osteoporosis Fibromyalgia DX:Fibromyalgia Myelofibrosis ([facility] V24, [facility] V28) DX:Myelofibrosis ([facility]); COMM ENT: diagnosed 8 years ago, follows with DR layne Meningioma ([facility] V24, [facility] V28) DX:Meningioma ([facility]) Asthma DX:Asthma Gout DX:Gout Seizures ([facility] V24, [facility] V28) DX:Seizures ([facility]) Lupus DX:Lupus Depression DX:Depression; C OMMENT: follows at [facility] at [facility] Hypercoagulable state ([facility] V24) DX:Hypercoagulable state ([facility]); COMMENT: on coumadin Neurogenic bladder DX:Neurogenic bladder; COMMENT: flowers dependent Supplemental oxygen dependent DX :Supplemental oxygen dependent Lung nodule 03/22/2017 DX:Lung nodule ALESSANDRA (obstructive sleep apnea) 03/22/2017 DX :ALESSANDRA (obstructive sleep apnea) GERD (gastroesophageal reflux disease) 03/22/2017 DX:GERD (gastroesophageal reflux disease) Anxiety 03/22/2017 DX:Anxiety Dementia ([facility] V24, [facility] V28) 03/22/2017 DX:Dementia (HCC) Schizophrenia ([facility] V24, [facility] V28) 03/22/2017 DX:Schizophrenia ([facility]) Glaucoma 03/22/2017 DX:Glaucoma History of stroke DX:History of stroke History of deep vein thrombosis DX:History of deep vein thrombosis Coronary artery disease DX:Coron christine artery disease; COMMENT: Old PA Diabetes mellitus type 2 wit h neurological manifestations ([facility] V24, [facility] V28) DX:Diabetes mellitus type 2 with neurological manifestations ([facility]) Leukemia ([facility] V24, [facility] V28) 09/02/2017 DX:Leukemia ([facility]) MDS (myelodysplastic syndrom e) ([facility] V24, [facility] V28) 09/02/2017 DX:MDS (myelodysplastic [...] EDT Consult Gastroenterology - [address] [facility] [address] [place] [id number] Deloris Vickers PA [address] [facility] [address] [place] [address] Health Maintenance Due Date Last Done Comments [...] patient's age to complete this topic Insurance [facility] Member Subscriber Plan / Payer (Ef fective 2024-Present) Name:Jennifer Schulz Relation to Subscriber:Self Name:Jennifer Schulz Payer ID:[id number] Group ID:[id number] Type:Not on file Address: [place] [address] [address] [address] Care Teams Pastry Baker Relationship Specialty Start Date End Date Sahra Son MD [address] [place] [address] PCP - General Internal Medicine 11/15/24
--- OUTSIDE RECORDS SUMMARY | 2025-05-08 08:56 | XMS_ITS | Encounter Summary ---
Author Organization [facility] Address [address] [place] [address] Phone Care Team Providers Care Cash Application Representative Name Role Phone Sahra Son MD Primary Care Provider + Encounter Details Date Type Department Care Team ([facility] Contact Info) Description 08/27/2021 Documentation Only [facility] [address] [place] [address] India Davalos [address] [place] [address] Social History Tobacco Use Types [...] [facility] [address] [place] [address] Barry Reyes MD [address] [place] [address] [place] [address] documented as of this encounter Visit Diagnoses Not on filedocumented in this encounter Care Teams Cash Application Representative Relationship Specialty Start Date End Date Sahra Son MD [address] [address] PCP - General Internal Medicine 10/28/22 documented as of this encounter
--- OUTSIDE RECORDS SUMMARY | 2025-05-08 08:57 | XMS_ITS | Encounter Summary ---
Author Organization [facility] Address [address] [place] [address] Phone Care Team Providers Care Swahili Teacher Name Role Phone Sahra Son MD Primary Care Provider + Encounter Details Date Type Department Care Team (Late Contact Info) Description 10/27/2024 Orders Only [facility] [address] [place] [address] India Davalos [address] [place] [address] Anemia in chronic kidney disease; [...] Services Of [facility] [address] [place] [address] Barry Reyes MD [address] [place] [address] [place] [address] documented as of this encounter [...] Glucose 238(H) 70 - 99 mg/dL [facility] BUN 15 8 - 27 mg/dL [facility] Creatinine 0.96 0.57 - 1.00 mg/dL [facility] eGFR CKD-EPI CR 2020 66 >59 mL/min/1.7 3 [facility] BUN/Creatinine Ratio 16 12 - 28 [facility] Sodium 137 134 - 144 mmol/L [facility] Potassium 4.7 3.5 - 5.2 mmol/L [facility] Chloride 100 96 - 106 mmol/L [facility] Bicarbonate (CO2) 20 20 - 29 mmol/L [facility] Calcium 9.0 8.7 - 10.3 mg/dL [facility] Albumin 4.3 3.9 - 4.9 g/dL [facility] Phosphorus 2.8(L) 3.0 - 4.3 mg/dL [facility] Blood specimen (specimen) Venous blood / Unknown 11/01/2024 8:45 AM EDT 11/01/2024 Barry Reyes MD LAB BLOOD ORDERABLES Final Re sult [facility] [address] [place] [address] * (ABNORMAL) Ferritin (11/01/2024 8:45 AM EDT) Ferritin 480(H) 15 - 150 ng/mL [facility] Blood specimen (specimen) Venous blood / Unknown 11/01/2024 8:45 AM EDT 11/01/2024 Barry Reyes MD LAB BLOOD ORDERABLES Final Re sult Performing Organization Address [facility] Co de Phone Number [facility] [address] [place] [address] * (ABNORMAL) Iron Panel (Fe, TIBC, TSAT) (11/01/2024 8:45 AM EDT) TIBC 238(L) 250 - 450 ug/dL [facility] UIBC 168 118 - 369 ug/dL [facility] Iron 70 27 - 139 ug/dL [facility] Iron Saturation (TSat) 29 15 - 55 % [facility] Blood specimen (specimen) Venous blood / Unknown 11/01/2024 8:45 AM EDT 11/01/2024 Barry Reyes MD LAB BLOOD ORDERABLES Final Re sult [facility] [address] [place] [address] * (ABNORMAL) CBC and Differential (11/01/2024 8:45 AM EDT) [facility] [address] WBC 6.6 3.4 - 10.8 x10E3/uL [facility] RBC 5.45(H) 3.77 - 5.28 x10E6/uL [facility] Hemoglobin 11.2 11.1 - 15.9 g/dL [facility] Hematocrit 38.3 34.0 - 46.6 % [facility] MCV 70(L) 79 - 97 fL [facility] MCH 20.6(L) 26.6 - 33.0 pg [facility] MCHC 29.2(L) 31.5 - 35.7 g/dL [facility] RDW 18.8(H) 11.7 - 15.4 % [facility] Platelets 175 150 - 450 x10E3/uL [facility] Neutrophils Relative 71 Not Estab. % [facility] Lymphocytes Relative 20 Not Estab. % [facility] Monocytes 6 Not Estab. % [facility] Eosinophils Relative 1 Not Estab. % [facility] Basophils Relative 1 Not Estab. % [facility] Neutrophils Absolute 4.7 1.4 - 7.0 x10E3/uL [facility] Lymphocytes Absolute 1.3 0.7 - 3.1 x10E3/uL [facility] Monocytes Absolute 0.4 0.1 - 0.9 x10E3/uL [facility] Eosinophils Absolute 0.1 0.0 - 0.4 x10E3/uL [facility] Basophils Absolute 0.1 0.0 - 0.2 x10E3/uL [facility] Immature Granulocytes 1 Not Estab. % [facility] Immature Grans (Absolute) 0.0 0.0 - 0.1 x10E3/uL [facility] Blood specimen (specimen) Venous blood / Unknown 11/01/2024 8:45 AM EDT 11/01/2024 us Barry Reyes MD LAB BLOOD ORDERABLES Final Re sult [facility] [address] [place] [address] documented in this encounter Visit Diagnoses Diagnosis Anemia in chronic kidney disease Other iron deficiency anemia Chronic kidney disease, stage 2 (mild) documented in this encounter Care Teams Swahili Teacher Relationship Specialty Start Date End Date Sahra Son MD [address] [place] [address] PCP - General Internal Medicine 10/28/22 documented as of this encounter
--- OUTSIDE RECORDS SUMMARY | 2025-05-08 08:57 | XMS_ITS | Encounter Summary ---
Author Organization [facility] Address [address] [place] [address] Phone Care Team Providers Care Templer Head Name Role Phone Sahra Son MD Primary Care Provider + Encounter Details Date Type Department Care Team ([facility] Contact Info) Description 11/13/2024 Documentation Only [facility] [address] [place] [address] India Davalos [address] [place] [address] Social History Tobacco Use Types [...] Upcoming Encounters Date Type Department Care Team ([facility] Contact Info) Description 06/05/2025 2:50 PM EST Office Visit [facility] [address] [place] [address] Barry Reyes MD [address] [place] [address] [place] [address] documented as of this encounter Visit Diagnoses Not on filedocumented in this encounter Care Teams Templer Head Relationship Specialty Start Date End Date Sahra Son MD [address] [address] PCP - General Internal Medicine 10/28/22 documented as of this encounter
--- OUTSIDE RECORDS SUMMARY | 2025-05-08 08:57 | XMS_ITS | Encounter Summary ---
Author Organization [facility] Address [address] [place] [address] Phone Care Team Providers Care Supervisor Liquefaction Name Role Phone Sahra Son MD Primary Care Provider + Encounter Details Date Type Department Care Team (Late Contact Info) Description 06/23/2024 Orders Only [facility] [address] [place] [address] India Davalos [address] [place] [address] Chronic kidney disease, stage 2 [...] Visit [facility] [address] [facility] [place] [address] Barry Reyes MD [address] [place] [address] Dr. [place]ack[place] [address] documented as of this encounter Visit Diagnoses Diagnosis Chronic kidney disease, stage 2 (mild) Anemia in chronic kidney disease Iron deficiency anemia, not otherwise specified documented in this encounter Care Teams Supervisor Liquefaction Relationship Specialty Start Date End Date Sahra Son MD [address] [place] [address] PCP - General Internal Medicine 10/28/22 documented as of this encounter
--- OUTSIDE RECORDS SUMMARY | 2025-05-08 08:57 | XMS_ITS | Encounter Summary ---
Author Organization [facility] Address [address] [place] [address] Phone Care Team Providers Care Guide Rail Cleaner Name Role Phone Sahra Son MD Primary Care Provider + Encounter Details Date Type Department Care Team (Late Contact Info) Description 07/21/2024 Orders Only [facility] [address] [place] [address] India Davalos [address] [place] [address] Chronic kidney disease, stage 2 [...] Visit [facility] [address] [place] [address] Barry Reyes MD [address] [place] [address] [place] [address] documented as of this encounter Visit Diagnoses Diagnosis Chronic kidney disease, stage 2 (mild) Anemia in chronic kidney disease Iron deficiency anemia, not otherwise specified documented in this encounter Care Teams Guide Rail Cleaner Relationship Specialty Start Date End Date Sahra Son MD [address] [place] [address] PCP - General Internal Medicine 10/28/22 documented as of this encounter
--- OUTSIDE RECORDS SUMMARY | 2025-05-08 08:57 | XMS_ITS | Encounter Summary ---
Author Organization [facility] Address [address] [place] [address] Phone Care Team Providers Care Hospital Cleaner Name Role Phone Sahra Son MD Primary Care Provider + Encounter Details Date Type Department Care Team (Late Contact Info) Description 03/16/2025 Orders Only [facility] [address] [place] [address] India Davalos [address] [place] [address] Anemia in chronic kidney disease; [...] Transplant [facility] [address] [place] [address] Barry Reyes MD [address] [facility] [place] [address] documented as of this encounter Visit Diagnoses Diagnosis Anemia in chronic kidney disease Other iron deficiency anemia Chronic kidney disease, stage 2 (mild) documented in this encounter Care Teams Hospital Cleaner Relationship Specialty Start Date End Date Sahra Son MD [facility] [place] [address] PCP - General Internal Medicine 10/28/22 documented as of this encounter
--- OUTSIDE RECORDS SUMMARY | 2025-05-08 08:57 | XMS_ITS | Clinical Summary ---
Author Organization [facility] Prior to 10/14/24 Address [address] [place] [address] Care Team Providers Care Loader Helper Name Role Phone Natalie Olivo APRN Primary Care Provider [phone] Allergies Active Allergy Reactions Criticality Noted Date [...] 1 10/04/2016 Active ergocalciferol (VITAMIN D2) capsule 71281 units TK ONE C PO TWICE A [...] times a day. 0 04/27/2022 Active pancrelipase, Qzp-Osrq-Yozv, (Creon) [address] units CPEP TK ONE C PO TID [...] age to complete this topic Care Teams Loader Helper Relationship Specialty Start Date End Date Natalie Olivo APRN [address] [place] [address] PCP - General Concrete Handler 04/30/22
--- OUTSIDE RECORDS SUMMARY | 2025-05-08 08:57 | XMS_ITS | Encounter Summary ---
Author Organization [facility] Address [address] [place] [address] Phone Care Team Providers Care Magistrate Name Role Phone Sahra Son MD Primary Care Provider + Encounter Details Date Type Department Care Team (Late st Contact Info) Description 01/19/2025 Orders Only [facility] [address] [place] [address] India Davalos [address] [place] [address] Anemia in chronic kidney disease; [...] Visit [facility] [address] [place] [address] Barry Reyes MD [address] [place] [address] documented as of this encounter Visit Diagnoses Diagnosis Anemia in chronic kidney disease Other iron deficiency anemia Chronic kidney disease, stage 2 (mild) documented in this encounter Care Teams Magistrate Relationship Specialty Start Date End Date Sahra Son MD [facility] [place] [address] PCP - General Internal Medicine 10/28/22 documented as of this encounter
--- OUTSIDE RECORDS SUMMARY | 2025-05-08 08:57 | XMS_ITS | Clinical Summary ---
Author Organization [facility] Address [address] [place] [address] Phone Care Team Providers Care Pharmacy Sales Representative Name Role Phone Vinnie Santizo Primary Care Provider [phone]- [phone] Allergies Active Allergy Reactions Criticality Noted Date [...] Description 2025 12:30 PM EDT Office Visit [facility] [address] [facility] [address], [place] [address] Cas Faye MD [address] [place] [id number] [email or web address] Health Maintenance Due Date Last Done [...] topic Medical Devices Not on file Insurance [facility] MEDICARE REPLACEMENT [facility] MEDICARE REPLACEMENT MEDICARE REPLACEMENT [facility] MEDICARE REPLACEMENT [facility] MEDICARE REPLACEMENT Care Teams Pharmacy Sales Representative Relationship Specialty Start Date End Date Vinnie Santizo DO [address] [place] [address] PCP - General 11/14/13 Additional Source Comments The information contained in this document represents components of the legal health record. It is not the complete legal health record.[facility]
--- OUTSIDE RECORDS SUMMARY | 2025-05-08 08:57 | XMS_ITS | Encounter Summary ---
Author Organization [facility] Address [address] [place] [address] Phone Care Team Providers Care Hourly Shift Manager Name Role Phone Sahra Son MD Primary Care Provider + Encounter Details Date Type Department Care Team (Late Contact Info) Description 11/10/2024 Orders Only [facility] [address] [place] [address] India Davalos [address] [place] [address] Chronic kidney disease, stage 2 [...] [facility] [address] [place] [address] Barry Reyes MD [address] [place] [address] [place] [address] documented as of this encounter Visit Diagnoses Diagnosis Chronic kidney disease, stage 2 (mild) Anemia in chronic kidney disease Iron deficiency anemia, not otherwise specified documented in this encounter Care Teams Hourly Shift Manager Relationship Specialty Start Date End Date Sahra Son MD [address] [place] [address] PCP - General Internal Medicine 10/28/22 documented as of this encounter
--- OUTSIDE RECORDS SUMMARY | 2025-05-08 08:57 | XMS_ITS | Encounter Summary ---
Author Organization [facility] Address [address] [place] [address] Phone Care Team Providers Care Corporate Executive Name Role Phone Sahra Son MD Primary Care Provider + Encounter Details Date Type Department Care Team (Late Contact Info) Description 09/29/2024 Orders Only [facility] [address] [place] [address] India Davalos [address] [place], [place] [...] [facility] [address] [place] [address] Barry Reyes MD [address] [place] [address] [place] [address] documented as of this encounter [...] Glucose 219(H) 70 - 99 mg/dL [facility] BUN 14 8 - 27 mg/dL [facility] Creatinine 1.09(H) 0.57 - 1.00 mg/dL [facility] eGFR CKD-EPI CR 2020 57(L) >59 mL/min/1.7 3 [facility] BUN/Creatinine Ratio 13 12 - 28 [facility] Sodium 139 134 - 144 mmol/L [facility] Potassium 5.0 3.5 - 5.2 mmol/L [facility] Chloride 101 96 - 106 mmol/L [facility] Bicarbonate (CO2) 20 20 - 29 mmol/L [facility] Calcium 9.2 8.7 - 10.3 mg/dL [facility] Albumin 4.1 3.9 - 4.9 g/dL [facility] Phosphorus 3.7 3.0 - 4.3 mg/dL [facility] Blood specimen (specimen) Venous blood / Unknown 10/04/2024 9:48 AM EDT 10/04/2024 Barry Reyes MD LAB BLOOD ORDERABLES Final Re sult [facility] [address] [place] [address] * (ABNORMAL) Ferritin (10/04/2024 9:48 AM EDT) Ferritin 167(H) 15 - 150 ng/mL [facility] Blood specimen (specimen) Venous blood / Unknown 10/04/2024 9:48 AM EDT 10/04/2024 Barry Reyes MD LAB BLOOD ORDERABLES Final Re sult Performing Organization Address [facility] Co de Phone Number [facility] [address] [place] [address] * (ABNORMAL) Iron Panel (Fe, TIBC, TSAT) (10/04/2024 9:48 AM EDT) TIBC 247(L) 250 - 450 ug/dL [facility] UIBC 205 118 - 369 ug/dL [facility] Iron 42 27 - 139 ug/dL [facility] Iron Saturation (TSat) 17 15 - 55 % [facility] Blood specimen (specimen) Venous blood / Unknown 10/04/2024 9:48 AM EDT 10/04/2024 Barry Reyes MD LAB BLOOD ORDERABLES Final Re sult Performing Organization Address City/[facility]/ZIP Co de Phone Number [facility] [address] [place] [address] * (ABNORMAL) CBC and Differential (10/04/2024 9:48 AM EDT) [facility] WBC 6.0 3.4 - 10.8 x10E3/uL [facility] RBC 5.10 3.77 - 5.28 x10E6/uL [facility] Hemoglobin 10.2(L) 11.1 - 15.9 g/dL [facility] Hematocrit 35.1 34.0 - 46.6 % [facility] MCV 69(L) 79 - 97 fL [facility] MCH 20.0(L) 26.6 - 33.0 pg [facility] MCHC 29.1(L) 31.5 - 35.7 g/dL [facility] RDW 18.5(H) 11.7 - 15.4 % [facility] Platelets 170 150 - 450 x10E3/uL [facility] Neutrophils Relative 69 Not Estab. % [facility] Lymphocytes Relative 22 Not Estab. % [facility] Monocytes 6 Not Estab. % [facility] Eosinophils Relative 2 Not Estab. % [facility] Basophils Relative 1 Not Estab. % [facility] Neutrophils Absolute 4.2 1.4 - 7.0 x10E3/uL [facility] Lymphocytes Absolute 1.3 0.7 - 3.1 x10E3/uL [facility] Monocytes Absolute 0.3 0.1 - 0.9 x10E3/uL [facility] Eosinophils Absolute 0.1 0.0 - 0.4 x10E3/uL [facility] Basophils Absolute 0.1 0.0 - 0.2 x10E3/uL [facility] Immature Granulocytes 0 Not Estab. % [facility] Immature Grans (Absolute) 0.0 0.0 - 0.1 x10E3/uL [facility] Blood specimen (specimen) Venous blood / Unknown 10/04/2024 9:48 AM EDT 10/04/2024 us Barry Reyes MD LAB BLOOD ORDERABLES Final Re sult [facility] [address] [place] [address] documented in this encounter Visit Diagnoses Diagnosis Anemia in chronic kidney disease Other iron deficiency anemia Chronic kidney disease, stage 2 (mild) documented in this encounter Care Teams Corporate Executive Relationship Specialty Start Date End Date Sahra Son MD [address] [place] [address] PCP - General Internal Medicine 10/28/22 documented as of this encounter
--- OUTSIDE RECORDS SUMMARY | 2025-05-08 08:57 | XMS_ITS | Encounter Summary ---
Author Organization [facility] Address [address] [place] [address] Phone Care Team Providers Care Medical Records Auditor Name Role Phone Sahra Son MD Primary Care Provider + Encounter Details Date Type Department Care Team (Late Contact Info) Description 10/13/2024 Orders Only [facility] [address] [place] [address] India Davalos [address] [place] [address] Chronic kidney disease, stage 2 [...] [facility] [address] [place] [address] Barry Reyes MD [address] [place] [address] [place] [address] documented as of this encounter Visit Diagnoses Diagnosis Chronic kidney disease, stage 2 (mild) Anemia in chronic kidney disease Iron deficiency anemia, not otherwise specified documented in this encounter Care Teams Medical Records Auditor Relationship Specialty Start Date End Date Sahra Son MD [address] [place] [address] PCP - General Internal Medicine 10/28/22 documented as of this encounter
--- OUTSIDE RECORDS SUMMARY | 2025-05-08 08:57 | XMS_ITS | Encounter Summary ---
Author Organization [facility] Address [address] [place] [address] Phone Care Team Providers Care Communication Consultant Name Role Phone Sahra Son MD Primary Care Provider + Encounter Details Date Type Department Care Team (Late st Contact Info) Description 11/24/2024 Orders Only [facility] [address] [place] [address] India Davalos [address] [place] [address] Anemia in chronic kidney disease; [...] [facility] [address] [place] [address] Barry Reyes MD [address] [place] [address] documented as of this encounter Visit Diagnoses Diagnosis Anemia in chronic kidney disease Other iron deficiency anemia Chronic kidney disease, stage 2 (mild) documented in this encounter Care Teams Communication Consultant Relationship Specialty Start Date End Date Sahra Son MD [facility] [place] [address] PCP - General Internal Medicine 10/28/22 documented as of this encounter
--- NOTE | 2025-05-08 09:10 | MHC.OFFVISCO ---
Intake Intake Visit Reasons: Anticoagulation Allergies codeine (Codeine) Allergy (Severe, Verified 05/08/25 08:47) DIFFICULTY BREATHING Penicillins Allergy (Severe, Verified 05/08/25 08:47) RASH penicillin V Allergy (Intermediate, Verified 05/08/25 08:47) RASH tramadol (Ultram) Allergy (Unknown, Verified 05/08/25 08:47) hallucinations Shellfish Allergy (Severe, Uncoded 05/08/25 08:47) THROAT SWELLING Contrast Allergy PreMed Pack Allergy (Unknown, Uncoded 05/08/25 08:47) TREAT WITH BENADRYL ferrlecit Adverse Reaction (Intermediate, Uncoded 05/08/25 08:47) Rash Medication List - Last Reconciled 05/08/25 by Tangela Sam RN alcohol swabs 2 pad topical DAILY blood sugar diagnostic As directed budesonide (Pulmicort) 0.25 mg inhalation BID clonidine HCl 0.1 mg PO BID clotrimazole 1% appl topical DAILY dapagliflozin propanediol (Farxiga) 10 mg PO DAILY divalproex ER 250 mg PO TID 3 months MDD 750 docusate sodium (Colace) 100 mg PO DAILY duloxetine (Cymbalta) 30 mg PO DAILY duloxetine 60 mg PO QAM epoetin marj (Procrit) 2,000 units subcut 3XW hydrocortisone 2.5% appl topical insulin glargine (Lantus Solostar U-100 Insulin) 5 units subcut DAILY ipratropium-albuterol 0.5 mg-3 mg(2.5 mg base)/3 mL mL inhalation ipratropium-albuterol 20-100 mcg/actuation 1 puff PO QID ipratropium-albuterol 20-100 mcg/actuation (Combivent Respimat) 1 puff inhalation Q4H ketorolac 0.5% 1 drp ophthalmic (eye) QID lancets As directed lancets As directed latanoprost 0.005% drps ophthalmic (eye) linaclotide (Linzess) 145 mcg PO DAILY linagliptin (Tradjenta) 5 mg PO DAILY nrdejp-qlmcpkxz-vzlsiwq (pork) 24,000-76,000 -120,000 unit (Creon) 1 cap PO TID loratadine 10 mg PO DAILY PRN lorazepam 1 mg PO BID meclizine mg PO montelukast 10 mg PO BEDTIME nifedipine ER 30 mg PO DAILY nitroglycerin 0.4 mg sublingual Q5M PRN nystatin 1 appl topical DAILY PRN ondansetron 4 mg PO Q8H PRN oxcarbazepine (Trileptal) 150 mg PO Q12H 30 days pen needle, diabetic (Ultra-Fine Pen Needle) As directed quetiapine 200 mg PO BEDTIME rabeprazole 20 mg PO DAILY ropinirole 0.25 mg PO BEDTIME rosuvastatin 40 mg PO DAILY sodium chloride 0.65% (Deep Sea Nasal) sprays intranasal Q2H PRN triamcinolone acetonide 0.1% appl topical warfarin 2.5 mg See Protocol PO DAILY Nursing Note INR 1.6 out of therapeutic range Medications and supplements reviewed Patient status: May have had more greens than usual - previous INR was elevated Medications or supplements: no changes Diet: good Denies any signs and symptoms of bleeding or clotting or unusual bruising Bleeding, bruising, clotting discussed Nutritional guidance given: avoid greens x 2 days -eat orange and reds today to help raise the INR Dose: increase dose this week 5mg x 6 days/ 3.75mg sat then resume usual dose 5mg x 5 days/ 3.75mg x 2 days F/U INR Date : 1 week ?? Patient verbalizing understanding of instructions given. Anti-Coag Initial Assessment Social Hx Patient Tobacco Use Status: Current everyday Tobacco user alcohol intake: never Coding Level of Care Code Est Patient Level 1 Diagnoses Current use of anticoagulant therapy Z79.01 Results AMB INR Fingerstick AMB INR Fingerstick 1.6 Last Edit by Tangela Sam RN on 05/08/25 09:03 manual enter Assessment & Plan Assessment & Plan (1) Current use of anticoagulant therapy: Code(s): Z79.01 - USP (current) use of anticoagulants Category: Medical
[2025-05-09 08:59] LABS: Prothrombin Time Whole Bld POC 19.2 sec (11.1-13.5); ~PT, ~INR - Anti Coag Clinic 1.6 (0.9-1.1)
== END 2025-05-08 09:13 | disposition home or self-care (01) ==
LOC: HO.ACS 08:40
PROVIDERS: PCP Internal Medicine; Visit Provider Internal Medicine Medical Oncology
DX: Z79.01 Long term (current) use of anticoagulants (principal)

== ENCOUNTER → 2025-05-08 08:40 | Outpatient (BNVA) | payer OTHER, SELFPAY | PROVIDERS: PCP Internal Medicine; Visit Provider Internal Medicine Medical Oncology | DX: I82.621 Acute embolism and thrombosis of deep veins of right upper extremity (principal); Z51.81 Encounter for therapeutic drug level monitoring; Z79.01 Long term (current) use of anticoagulants | CPT/HCPCS: 85610; 99211 ==